=== PATIENT | female | born 1960 | race Caucasian/White ===

== ENCOUNTER 2024-08-31 15:52 | Emergency (ER) | payer MEDICARE, SELFPAY ==
[2024-08-31] VITALS (15 sets, daily range): BP systolic 130; BP diastolic 68; PULSE 60–70; TEMP 36.6; O2SAT 96–98; BMI 27.4
--- NOTE | 2024-08-31 16:07 | XR_ITS ---
The [address] [address] Patient Name: KING MORENO MRN: [id number] date: 1960 Sex: F Assigned Patient Location: ER Current Patient Location: ED.MAIN Accession/Order Number: [id number] Exam Date: 08/31/2024 16:15 Report Date: 08/31/2024 16:30 At the request of: SHERRI EM Procedure: XR chest 1V EXAMINATION: XR chest 1V HISTORY: Dizziness COMPARISON: No relevant comparison available. FINDINGS: LUNGS: Prominent opacity within medial right lung base is suspected to represent a pericardial fat pad. No convincing infiltrates. Underexpanded lungs. VASCULATURE: No increased pulmonary vasculature. PLEURA: No pneumothorax, effusion, or pleural thickening. CARDIAC: No cardiomegaly or cardiac silhouette abnormality. MEDIASTINUM: No visible mass or adenopathy. BONES: No fracture or visible bone lesion. OTHER: Cardiac pacer. XR/XR chest 1V IMPRESSION: 1. No acute cardiopulmonary process. Electronically authenticated by: JOSE CHACON Date: 08/31/2024 16:30
--- NOTE | 2024-08-31 16:07 | ECG_ITS ---
The [facility] Test Date: 2024-08-31 Pat Name: KING MORENO Department: Room: - Gender: Female Pain Medicine Physician: : 1960 Requested By: Order Number: [id number] Reading MD: DANK JENNINGS Measurements Intervals [place] Rate: 62 P: 58 RI: 136 QRS: 55 QRSD: 92 T: 90 QT: 420 QTc: 425 Interpretive Statements 1100 Sinus rhythm 3114 Cannot rule out anterior myocardial infarction, age undetermined 9150 abnormal ECG No previous ECG available for comparison Electronically Signed On 08-31-2024 23:27:13 EDT by DANK JENNINGS
--- NOTE | 2024-08-31 16:09 | ED.GENADUL1 ---
HPI HPI - General Adult General Chief complaint: Chest Pain Stated complaint: DEFIBULATOR NOT WORKING PROPERLY Time Seen by Provider: 08/31/24 15:56 Source: patient Mode of arrival: walk-in Limitations: no limitations History of Present Illness HPI narrative: Patient's chief complaint: I need to go to [place] and I don't drive Patient is a 63-year-old female who presents to the emergency department essentially to be transferred to [facility]. She states that she received a phone call from her lens edger at [facility] stating that her ICD is not functioning properly and she needed to get to . She states she apparently was not able to get to an area so she came to this facility by private vehicle. She states she has been feeling dizzy for the last several days but has no other major medical complaints. She takes warfarin daily. She states the defibrillator was placed approximately 4 months ago at [facility]. She denies chest pain, peripheral edema. She denies syncope or falls. Related Data Allergies Allergy/AdvReac Type Severity Reaction Status Date / Time No Known Drug Allergies Allergy Verified 08/31/24 15:57 Opioid HPI Opioid Management Most Recent Opioid Data: No Data to Display Review of Systems ROS Constitutional Denies: fever or chills Ears, nose, mouth, and throat Denies: throat pain or nasal congestion Cardiovascular Denies: chest pain Respiratory Denies: shortness of breath Gastrointestinal Denies: nausea or vomiting Musculoskeletal Denies: back pain Integumentary/Breast Denies: rash Neurological Reports: dizziness Hematologic/Lymphatic Denies: easy bruising or easy bleeding PFSH PFSH Social History Little interest or pleasure in doing things: not at all Feeling down, depressed, or hopeless: not at all Exam Narrative Exam Narrative: Gen.: Awake, alert, in no distress Head: Normocephalic, atraumatic ENT: Moist mucous membranes Respiratory: No respiratory distress, lungs clear bilaterally Cardio: Regular rate and rhythm Extremities: Moves extremities equally, no injuries noted Psych: Normal mood and affect Neuro: No focal neuro deficit Skin: Warm, dry, intact Constitutional Vital Signs, click to edit/add: Last Vital Signs Temp 97.8 F 08/31/24 15:58 Pulse 60 08/31/24 18:00 Resp 16 08/31/24 18:00 BP 130/68 08/31/24 15:59 Pulse Ox 97 08/31/24 16:20 O2 Del Method Room Air 08/31/24 15:58 Course Vital Signs Vital signs: Vital Signs Temperature 97.8 F 08/31/24 15:58 Pulse Rate 70 08/31/24 15:58 Respiratory Rate 18 08/31/24 15:58 Blood Pressure 130/68 08/31/24 15:58 Pulse Oximetry 97 08/31/24 15:58 Oxygen Delivery Method Room Air 08/31/24 15:58 Temperature 97.8 F 08/31/24 15:58 Pulse Rate 60 08/31/24 18:00 Respiratory Rate 16 08/31/24 18:00 Blood Pressure 130/68 08/31/24 15:59 Pulse Oximetry 97 08/31/24 16:20 Oxygen Delivery Method Room Air 08/31/24 15:58 Medical Decision Making MDM Narrative Medical decision making narrative: This patient states that she has been feeling intermittently dizzy for the last several days although she has not had any syncope, headaches, chest pain. She has an unremarkable EKG, normal vital signs. She made it clear on arrival to this emergency department that she presented here for us to transfer her to [facility]. [facility] transfer line was contacted, case was discussed by the transfer line with Dr. Butler for cardiology who requested that the patient be transferred to the emergency department at [facility]. I spoke with Dr. Youssef in the emergency department who accepted the patient for transfer. Patient is hemodynamically stable at this time. She has unremarkable lab studies, chest x-ray. Transport is pending to the emergency department at . 1811: This patient was in the emergency department for 2 hours and 15 minutes, we attempted to coordinate transport with [facility] as we had no local transport. While waiting for transportation services, the patient decided that she no longer wanted to wait in the emergency room. She signed out AGAINST MEDICAL ADVICE and stated she just wanted to go home and go to [facility] in the morning. She understands the risks of and disability by leaving AGAINST MEDICAL ADVICE and she was instructed to proceed directly to [facility] if she was not going to wait in the emergency room. [facility] was contacted to make sure they were aware that the patient was leaving AGAINST MEDICAL ADVICE from our facility. Critical care time 35 minutes. SUPERVISED APC VISIT, PHYSICIAN ATTESTATION: Based on the medical record the care appears appropriate. ? Medical Records Medical records reviewed: Yes I reviewed the patient's medical records Lab Data Lab results reviewed: Yes I reviewed the patient's lab results Labs: Lab Results 08/31/24 Range/Units 16:24 WBC 9.0 (4.0-11.0) 10^3/uL RBC 4.25 (4.20-5.40) 10^6/uL Hgb 12.8 (12.0-16.0) g/dL Hct 38.2 (36.0-48.0) % MCV 89.9 (81.0-99.0) fL MCH 30.1 (26.7-34.0) pg MCHC 33.5 (29.9-35.2) g/dL RDW 17.4 H (11.0-15.0) % Plt Count 199 (150-450) 10^3/uL MPV 11.1 (9.5-13.5) fL Neut % (Auto) 58.9 (43.0-75.0) % Lymph % (Auto) 32.8 (20.5-60.0) % [place] % (Auto) 5.8 (1.7-12.0) % Eos % (Auto) 2.0 (0.9-7.0) % Baso % (Auto) 0.4 (0.2-2.0) % Neut # (Auto) 5.3 (1.4-6.5) 10^3/uL Lymph # (Auto) 2.9 (1.2-3.8) 10^3/uL [place] # (Auto) 0.5 (0.3-0.8) 10^3/uL Eos # (Auto) 0.2 (0.0-0.7) 10^3/uL Baso # (Auto) 0.0 (0.0-0.1) 10^3/uL Abs Immat Gran (auto) 0.01 (0.00-0.03) 10^3/uL Imm/Tot Granulo (auto) 0.1 (0.0-0.5) % PT 30.3 H (9.0-11.6) sec INR 3.21 Sodium 140 (136-145) mmol/L Potassium 3.8 (3.5-5.1) mmol/L Chloride 105 (98-107) mmol/L Carbon Dioxide 23.4 (21.0-32.0) mmol/L Anion Gap 15.4 BUN 13.0 (7.0-18.0) mg/dL Creatinine 1.00 (0.55-1.02) mg/dL Est GFR ( Amer) >60 (>=60 mL/min/1.73m^2) Est GFR (Non-Af Amer) 56 L (>=60 mL/min/1.73m^2) BUN/Creatinine Ratio 13.0 Glucose 157 H (74-106) mg/dL Calcium 9.1 (8.5-10.1) mg/dL Total Bilirubin 0.2 (0.2-1.0) mg/dL AST 29 (15-37) U/L ALT 37 (14-59) U/L Alkaline Phosphatase 49 (46-116) U/L Troponin I High Sens 5.9 (4.0-51.3) pg/mL Total Protein 6.6 (6.4-8.2) g/dL Albumin 3.1 L (3.4-5.0) g/dL Globulin 3.5 g/dL Albumin/Globulin Ratio 0.9 Imaging Data Chest x-ray: Attestation: I have reviewed the pertinent imaging results. Radiologist's impression: ITS Impressions Chest X-Ray 08/31/24 16:07 IMPRESSION: 1. No acute cardiopulmonary process. Electronically authenticated by: JOSE CHACON Date: 08/31/2024 16:30 ECG Data Attestation: I personally reviewed and interpreted this ECG as follows: (Normal sinus rhythm at a rate of [address] elevation, minimal ST depression. No ectopy. EKG reviewed by attending physician) Discharge Plan Discharge Stand Alone Forms: Portal Instructions Chief Complaint: Chest Pain Clinical Impression: Dizziness, Disorder of defibrillator function Patient Disposition: Left Against Medical Advice Time of Disposition Decision: 18:12 Discharge location: [facility] Emergency Department Condition: Good Print Language: Belarusian Referrals: Physician,[place] [Primary Care Provider] - 1 week
[2024-08-31 16:39] LABS: Basophils Percent Auto 0.4 % (0.2-2.0); Eosinophils Absolute Auto 0.2 10^3/uL (0.0-0.7); Hematocrit 38.2 % (36.0-48.0); Hemoglobin 12.8 g/dL (12.0-16.0); Immature Granulocytes Abs Auto 0.01 10^3/uL (0.00-0.03); Immature Granulocytes Pct Auto 0.1 % (0.0-0.5); Lymphocytes Absolute Auto 2.9 10^3/uL (1.2-3.8); Lymphocytes Percent Auto 32.8 % (20.5-60.0); Mean Corpuscular HGB Conc 33.5 g/dL (29.9-35.2); Mean Corpuscular Hemoglobin 30.1 pg (26.7-34.0); Mean Corpuscular Volume 89.9 fL (81.0-99.0); Mean Platelet Volume 11.1 fL (9.5-13.5); Monocytes Absolute Auto 0.5 10^3/uL (0.3-0.8); Monocytes Percent Auto 5.8 % (1.7-12.0); Neutrophils Absolute Auto 5.3 10^3/uL (1.4-6.5); Neutrophils Percent Auto 58.9 % (43.0-75.0); Platelet Count 199 10^3/uL (150-450); Red Blood Count 4.25 10^6/uL (4.20-5.40); Red Cell Distribution Width 17.4 % (11.0-15.0)
[2024-08-31 16:47] LABS: INR 3.21; Prothrombin Time 30.3 sec (9.0-11.6)
[2024-08-31 16:53] LABS: Alanine Aminotransferase 37 U/L (14-59); Albumin Globulin Ratio 0.9; Albumin Level 3.1 g/dL (3.4-5.0); Alkaline Phosphatase 49 U/L (46-116); Anion Gap 15.4; Aspartate Amino Transferase 29 U/L (15-37); Bilirubin Total 0.2 mg/dL (0.2-1.0); Calcium 9.1 mg/dL (8.5-10.1); Carbon Dioxide 23.4 mmol/L (21.0-32.0); Chloride 105 mmol/L (98-107); Estimated GFR (African America >60 (>=60 mL/min/1.73m^2); Estimated GFR (Non-African Ame 56 (>=60 mL/min/1.73m^2); Globulin 3.5 g/dL; Glucose 157 mg/dL (74-106); Potassium 3.8 mmol/L (3.5-5.1); Sodium 140 mmol/L (136-145); Total Protein 6.6 g/dL (6.4-8.2); Troponin I High Sensitivity 5.9 pg/mL (4.0-51.3)
== END 2024-08-31 18:05 | disposition left against medical advice (07) ==
PROVIDERS: Physician Assistant; Emergency Provider Emergency Medicine Emergency Medical Services
DX: R42 Dizziness and giddiness (principal); T82.9XXA Unspecified complication of cardiac and vascular prosthetic device, implant and graft, initial encounter; Z95.810 Presence of automatic (implantable) cardiac defibrillator; Z79.01 Long term (current) use of anticoagulants; Z53.29 Procedure and treatment not carried out because of patient's decision for other reasons
CPT/HCPCS: 36415; 71045; 80053; 84484; 85025; 85610; 93005; 99285

== ENCOUNTER 2024-09-12 14:08 | Outpatient (OUT) | payer MEDICARE, SELFPAY ==
[2024-09-12 14:38] LABS: Basophils Absolute Auto 0.1 10^3/uL (0.0-0.1); Basophils Percent Auto 0.7 % (0.2-2.0); Eosinophils Absolute Auto 0.1 10^3/uL (0.0-0.7); Eosinophils Percent Auto 1.4 % (0.9-7.0); Hematocrit 39.2 % (36.0-48.0); Hemoglobin 13.4 g/dL (12.0-16.0); Immature Granulocytes Abs Auto 0.02 10^3/uL (0.00-0.03); Immature Granulocytes Pct Auto 0.2 % (0.0-0.5); Lymphocytes Absolute Auto 2.9 10^3/uL (1.2-3.8); Lymphocytes Percent Auto 30.6 % (20.5-60.0); Mean Corpuscular HGB Conc 34.2 g/dL (29.9-35.2); Mean Corpuscular Hemoglobin 30.2 pg (26.7-34.0); Mean Corpuscular Volume 88.5 fL (81.0-99.0); Mean Platelet Volume 10.9 fL (9.5-13.5); Monocytes Absolute Auto 0.6 10^3/uL (0.3-0.8); Monocytes Percent Auto 6.3 % (1.7-12.0); Neutrophils Absolute Auto 5.8 10^3/uL (1.4-6.5); Neutrophils Percent Auto 60.8 % (43.0-75.0); Platelet Count 284 10^3/uL (150-450); Red Blood Count 4.43 10^6/uL (4.20-5.40); Red Cell Distribution Width 17.1 % (11.0-15.0); White Blood Count 9.6 10^3/uL (4.0-11.0)
[2024-09-12 15:22] LABS: Percent Iron Saturation 6.1 %
[2024-09-12 15:30] LABS: TSH W/ REFLEX FT4 2.388 uIU/mL (0.358-3.740)
== END 2024-09-12 14:09 | disposition home or self-care (01) ==
LOC: LAB 14:09
PROVIDERS: Visit Provider Nurse Practitioner Family
DX: R42 Dizziness and giddiness (principal); R55 Syncope and collapse; R53.83 Other fatigue
CPT/HCPCS: 36415; 83540; 83550; 84443; 85025

== ENCOUNTER 2024-10-22 18:02 | Emergency (ER) | payer MEDICARE, MEDICAID, SELFPAY ==
[2024-10-22 18:07] VITALS: BP 132/76; PULSE 85; TEMP 36.8; O2SAT 96; BMI 27.4
--- NOTE | 2024-10-22 18:56 | PC.NURSE ---
patient reports she initially fell on due to a trip and injured her left buttocks. patient fell again on thursday, due to the injury from initial fall, and worsened the pain. patient attempted tylenol and motrin with no relief
--- NOTE | 2024-10-22 19:11 | CT_ITS ---
The [address] [address] Patient Name: KING MORENO MRN: [id number] date: 1960 Sex: F Assigned Patient Location: ER Current Patient Location: ED.MAIN Accession/Order Number: [id number] Exam Date: 10/22/2024 19:17 Report Date: 10/22/2024 21:04 At the request of: ISSAC JAMA Procedure: CT pelvis wo con EXAM: CT pelvis wo con HISTORY: pain left hip/ pelvis COMPARISON: None. TECHNIQUE: CT pelvis without contrast. Axial scans with reformatted coronal and sagittal images. Individualized radiation dose reduction used for this exam. FINDINGS: There is a mass in the right pelvis along the right side of the uterus. Also seen adjacent to the rectum. The cecum lies in the pelvis and is adjacent to this mass as well. Density higher than typical for a cyst. 5 cm transverse by 6 cm craniocaudad 4.2 cm AP diameter. There is no free fluid in the pelvis. No adenopathy. Left adnexa and uterus unremarkable. Cecum is prominent but no bowel distention seen proximal to this. Mass appears separate from a prominent fluid-filled bladder. No suspicious bone lesion. No evidence of hernia. CT/CT pelvis wo con IMPRESSION: Right pelvic mass approximately 5 x 6 x 4.2 cm. Seen along the right side of the uterus, rectum and within the low-lying cecum in the pelvis. Suspect lesion is ovarian origin.. Consider follow-up with pelvic ultrasound. No evidence of pelvic free fluid or adenopathy. Electronically authenticated by: MORENA YAN Date: 10/22/2024 21:04
[2024-10-22] MEDS: IBUPROFEN 400 MG TABLET 800 MG PO (19:34)
--- NOTE | 2024-10-22 20:33 | ED.GENADUL1 ---
HPI HPI - General Adult General Chief complaint: Back Pain/Injury Stated complaint: FALL THURSDAY NIGHT, L BUTTOCK PAIN Time Seen by Provider: 10/22/24 19:05 Source: patient Mode of arrival: walk-in History of Present Illness HPI narrative: 63-year-old female to the emergency department chief complaint of pain in her left hip from an accidental fall. Patient reports that she is fallen twice on her left hip. Both were accidental falls that occurred at home. She got hit her head or lose consciousness. She denies any neck or back pain. No numbness, weakness, tingling. She reports she has increasing pain in her left hip and pelvis since the fall. She reports this makes it hard to ambulate. Related Data Home Medications ?Medication ?Instructions ?Recorded ?Confirmed amiodarone 200 mg tablet 200 mg PO Q24H 10/22/24 10/22/24 lansoprazole 30 mg capsule,delayed 30 mg PO Q8H 10/22/24 10/22/24 release lisinopril 2.5 mg tablet 2.5 mg PO DAILY 10/22/24 10/22/24 lisinopril 5 mg tablet 5 mg PO DAILY 10/22/24 10/22/24 lurasidone 60 mg tablet 60 mg PO DAILY 10/22/24 10/22/24 meclizine 25 mg tablet 25 mg PO DAILY 10/22/24 10/22/24 melatonin 5 mg tablet 5 mg PO DAILY 10/22/24 10/22/24 metoprolol succinate 25 mg 50 mg PO DAILY 10/22/24 10/22/24 tablet,extended release 24 hr mexiletine 150 mg capsule 150 mg PO Q8H 10/22/24 10/22/24 oxybutynin chloride 10 mg 10 mg PO DAILY 10/22/24 10/22/24 tablet,extended release 24 hr quetiapine 100 mg tablet 100 mg PO DAILY 10/22/24 10/22/24 quetiapine 200 mg tablet 200 mg PO DAILY 10/22/24 10/22/24 ranolazine 500 mg tablet,extended 500 mg PO Q12H 10/22/24 10/22/24 release,12 hr rosuvastatin 10 mg tablet 10 mg PO DAILY 10/22/24 10/22/24 warfarin 2.5 mg tablet 2.5 mg PO DAILY 10/22/24 10/22/24 Previous Rx's ?Medication ?Instructions ?Recorded oxycodone-acetaminophen 5 mg-325 1 tab PO Q6H PRN pain 3 days #12 10/22/24 mg tablet (Percocet) tabs Allergies Allergy/AdvReac Type Severity Reaction Status Date / Time No Known Drug Allergies Allergy Verified 08/31/24 15:57 Opioid HPI Opioid Management Most Recent Opioid Data: Last Pain Scale 10 10/22/24 21:24 10/22/24 Last ED Pain Assessment 10/22/24 21:24 Review of Systems ROS Status of ROS 10 or more systems reviewed and unremarkable except as noted in history and below PFSH PFS Social History Little interest or pleasure in doing things: not at all Feeling down, depressed, or hopeless: not at all Exam Narrative Exam Narrative: VITALS: I have reviewed the triage vital signs. GENERAL: Well developed, well appearing adult in no acute distress. NEURO: Alert and oriented. Moves all extremities. Face is symmetric and expressive. EYES: PERRL. No scleral icterus or conjunctival injection. No discharge. HENT: Normocephalic, atraumatic. Hearing is grossly intact. Nares grossly patent and without discharge. Mucous membranes moist. NECK: No JVD. Patient moves neck without restriction. No midline cervical, thoracic, or lumbar tenderness. CARDIO: Rhythm regular. Normal rate. No murmur, rub, or gallop. Pulses equal bilaterally in the upper and lower extremity. No lower extremity edema. PULM: Lungs clear to auscultation in all goss. No wheezes, rales, or rhonchi. No conversational dyspnea. No splinting, stridor, or accessory muscle use. GI/: Abdomen is soft and non-tender. Normoactive bowel sounds. EXTREMITIES: Tenderness with palpation of the left hip. Pain with range of motion of the left hip. Stable pelvis. Symmetric muscle bulk. No joint swelling. No clubbing, cyanosis, or deformity. SKIN: Warm and dry. Normal turgor. No rash or lesions appreciated. PSYCH: Mood, affect, and interaction is appropriate to the setting. Constitutional Vital Signs, click to edit/add: Last Vital Signs Temp 98.2 F 10/22/24 18:07 Pulse 76 10/22/24 21:24 Resp 18 10/22/24 21:24 BP 140/73 10/22/24 21:24 Pulse Ox 98 10/22/24 21:24 O2 Del Method Room Air 10/22/24 21:24 Course Vital Signs Vital signs: Vital Signs Temperature 98.2 F 10/22/24 18:07 Pulse Rate 85 10/22/24 18:07 Respiratory Rate 18 10/22/24 18:07 Blood Pressure 132/76 10/22/24 18:07 Pulse Oximetry 96 10/22/24 18:07 Oxygen Delivery Method Room Air 10/22/24 18:07 Temperature 98.2 F 10/22/24 18:07 Pulse Rate 76 10/22/24 21:24 Respiratory Rate 18 10/22/24 21:24 Blood Pressure 140/73 10/22/24 21:24 Pulse Oximetry 98 10/22/24 21:24 Oxygen Delivery Method Room Air 10/22/24 21:24 Medical Decision Making MDM Narrative Medical decision making narrative: 63-year-old female to the emergency department chief complaint of left hip pain. Vital stable, the patient is afebrile. There is tenderness to palpation as well as pain with range of motion. CT scan is ordered. Ibuprofen for pain. She did drive herself to the ER, intends on driving home. Patient with this plan. CT scan without any disorder of the hip. She does have incidentally visualized pelvic mass. CT scan results were discussed with the patient. Discussed reassuring hip findings however we discussed the incidentally visualized pelvic mass. This was not known to the patient. Radiologist noted appear to be ovarian in nature. She was given a referral to [facility]. Discussed with the patient the need for urgent follow-up. She agrees with this plan. Percocet for her discomfort. Return precautions were discussed. All questions were answered. The patient was discharged home. Medical Records Medical records reviewed: Yes I reviewed the patient's medical records Imaging Data CT scan - abdomen: Attestation: I have reviewed the pertinent imaging results. Radiologist's impression: ITS Impressions Pelvis CT 10/22/24 19:11 IMPRESSION: Right pelvic mass approximately 5 x 6 x 4.2 cm. Seen along the right side of the uterus, rectum and within the low-lying cecum in the pelvis. Suspect lesion is ovarian origin.. Consider follow-up with pelvic ultrasound. No evidence of pelvic free fluid or adenopathy. Electronically authenticated by: MORENA YAN Date: 10/22/2024 21:04 Discharge Plan Discharge Chief Complaint: Back Pain/Injury Clinical Impression: Contusion of hip, left, Pelvic mass in female Patient Disposition: Home, Self-Care Time of Disposition Decision: 21:19 Condition: Good Mode of Transportation: Private Vehicle Prescriptions / Home Meds: New oxycodone-acetaminophen [Percocet] 5-325 mg tablet 1 tab PO Q6H PRN (Reason: pain) 3 Days Qty: 12 0RF No Action amiodarone 200 mg tablet 200 mg PO Q24H lansoprazole 30 mg capsule,delayed release(DR/EC) 30 mg PO Q8H lisinopril 2.5 mg tablet 2.5 mg PO DAILY lisinopril 5 mg tablet 5 mg PO DAILY lurasidone 60 mg tablet 60 mg PO DAILY meclizine 25 mg tablet 25 mg PO DAILY melatonin 5 mg tablet 5 mg PO DAILY metoprolol succinate 25 mg tablet extended release 24 hr 50 mg PO DAILY mexiletine 150 mg capsule 150 mg PO Q8H oxybutynin chloride 10 mg tablet extended release 24hr 10 mg PO DAILY quetiapine 100 mg tablet 100 mg PO DAILY quetiapine 200 mg tablet 200 mg PO DAILY ranolazine 500 mg tablet extended release 12 hr 500 mg PO Q12H rosuvastatin 10 mg tablet 10 mg PO DAILY warfarin 2.5 mg tablet 2.5 mg PO DAILY Print Language: Yoruba Instructions: Hip Contusion (ED) Additional Instructions: Call the office of your primary care doctor to arrange for follow-up within the above-stated timeframe. Your ED visit was focused on your acute issue and does not replace primary care. You should review your labs, imaging, and diagnoses from this ED visit with your primary care physician. There may be non-emergent/ incidental findings that need further evaluation. You should review your vital signs including blood pressure with your PCP. If you were prescribed medications you should discuss possible side-effects and drug interactions with your pharmacist. Call 911 or go to the nearest Emergency Department if you develop any new or worsening symptoms. Incidental finding of a pelvic mass. Needs further workup with an ultrasound and evaluation with [facility]. Referrals: David Ewing DO [Physician] - 1 week (Follow-up to discuss incidental finding of pelvic mass ) Conchita Aden MD [Primary Care Provider] - 1 week Gabino Muse MD [Physician] - 1 week (follow-up to discuss hip)
[2024-10-22 21:24] VITALS: BP 140/73; PULSE 76; O2SAT 98
[2024-10-22] MEDS: OXYCODONE HCL/ACETAMINOPHEN 5MG/325MG 1 TAB PO (21:46)
== END 2024-10-22 21:46 | disposition home or self-care (01) ==
PROVIDERS: Emergency Provider Student in an Organized Health Care Education/Training Program; PCP Family Medicine
DX: S70.02XA Contusion of left hip, initial encounter (principal); W19.XXXA Unspecified fall, initial encounter; R19.00 Intra-abdominal and pelvic swelling, mass and lump, unspecified site
CPT/HCPCS: 72192; 99284

== ENCOUNTER 2024-10-29 14:51 | Emergency (ER) | payer MEDICARE, MEDICAID, SELFPAY ==
[2024-10-29] VITALS (17 sets, daily range): BP systolic 102–139; BP diastolic 53–81; PULSE 78–91; TEMP 36.8; O2SAT 95–99; BMI 27.4
--- NOTE | 2024-10-29 16:19 | ECG_ITS ---
The [facility] Test Date: 2024-10-29 Pat Name: KING MORENO Department: Room: - Gender: Female Pneumatic Jacketer: : 1960 Requested By: LOLA OWENS Order Number: [id number] Reading MD: DANK JENNINGS Measurements Intervals [place] Rate: 79 P: 61 HI: 132 QRS: 40 QRSD: 86 T: 90 QT: 374 QTc: 409 Interpretive Statements 1100 Sinus rhythm 8102 Low QRS voltage in chest leads 9150 abnormal ECG Electronically Signed On 10-30-2024 7:54:20 EST by DANK JENNINGS
--- NOTE | 2024-10-29 16:30 | ED.GENADUL1 ---
HPI HPI - General Adult General Chief complaint: Shortness of Breath/Dyspnea Stated complaint: SHORTNESS OF BREATH. DIZZINESS Time Seen by Provider: 10/29/24 16:21 Source: patient Mode of arrival: walk-in History of Present Illness HPI narrative: Patient is a 63-year-old female who is presenting to the ER today with chief complaint of shortness of breath at rest or with exertion for the past 2 or 3 days. Patient states that she had a blood transfusion and a iron transfusion approximately 2 to 3 years ago. Patient also has emphysema COPD. Patient does not believe that she needs a breathing treatment. She has not had a breathing machines or medications for the past 2 or 3 months because she has moved. Patient has no headache. No chest pain or tightness. No abdominal pain. No swelling to her abdomen or lower extremities. Patient is uncertain of the reason why she is having some more shortness of breath with exertion and at rest. I walk into the room. She is not hypoxic. She looks very comfortable No recent traveling. No other acute complaints. Patient lives at home alone, patient is smoking 1-2 packs a day cigarettes. Patient does not wear oxygen during the day or at nighttime. All systems are negative except as noted/marked. All systems reviewed and otherwise negative. Nurses note and vital signs reviewed and patient is not hypoxic. General: The patient appears well and in no apparent distress. Patient is resting comfortably on cart. Patient is not toxic, lethargic, or listless Skin: Warm, dry, no pallor noted. There is no rash noted. No petechiae, purpura. Head: Normocephalic, atraumatic Eye: Normal conjunctiva, no drainage, EOMI. PERRL Ears, Nose, Mouth, and Throat: oral mucosa is moist. Nares patent. Mouth without vesicles. Cardiovascular: Regular Rate and Rhythm, no murmur, gallop, rub Respiratory: Patient is in no distress, no accessory muscle use, lungs are clear to auscultation, no wheezing, rales or rhonchi Back: non-tender, no CVA tenderness bilaterally to percussion. No CT LS midline pain GI: no tenderness to palpation, no masses appreciated. No rebound, guarding, or rigidity noted. No distention Musculoskeletal: Patient has full range of motion of all of the extremities, no motor, sensory, or focal neurological deficits. no edema. Neurological: A&O x4, normal speech Psychiatric: Cooperative Related Data Home Medications ?Medication ?Instructions ?Recorded ?Confirmed amiodarone 200 mg tablet 200 mg PO Q24H 10/22/24 10/22/24 lansoprazole 30 mg capsule,delayed 30 mg PO Q8H 10/22/24 10/22/24 release lisinopril 2.5 mg tablet 2.5 mg PO DAILY 10/22/24 10/22/24 lisinopril 5 mg tablet 5 mg PO DAILY 10/22/24 10/22/24 lurasidone 60 mg tablet 60 mg PO DAILY 10/22/24 10/22/24 meclizine 25 mg tablet 25 mg PO DAILY 10/22/24 10/22/24 melatonin 5 mg tablet 5 mg PO DAILY 10/22/24 10/22/24 metoprolol succinate 25 mg 50 mg PO DAILY 10/22/24 10/22/24 tablet,extended release 24 hr mexiletine 150 mg capsule 150 mg PO Q8H 10/22/24 10/22/24 oxybutynin chloride 10 mg 10 mg PO DAILY 10/22/24 10/22/24 tablet,extended release 24 hr quetiapine 100 mg tablet 100 mg PO DAILY 10/22/24 10/22/24 quetiapine 200 mg tablet 200 mg PO DAILY 10/22/24 10/22/24 ranolazine 500 mg tablet,extended 500 mg PO Q12H 10/22/24 10/22/24 release,12 hr rosuvastatin 10 mg tablet 10 mg PO DAILY 10/22/24 10/22/24 warfarin 2.5 mg tablet 2.5 mg PO DAILY 10/22/24 10/22/24 Previous Rx's ?Medication ?Instructions ?Recorded oxycodone-acetaminophen 5 mg-325 1 tab PO Q6H PRN pain 3 days #12 10/22/24 mg tablet (Percocet) tabs Allergies Allergy/AdvReac Type Severity Reaction Status Date / Time No Known Drug Allergies Allergy Verified 08/31/24 15:57 Opioid HPI Opioid Management Most Recent Opioid Data: Last Pain Scale 10 10/22/24 21:46 10/22/24 Last ED Pain Assessment 10/22/24 21:24 PFSH PFSH Social History Little interest or pleasure in doing things: not at all Feeling down, depressed, or hopeless: not at all Exam Constitutional Vital Signs, click to edit/add: Last Vital Signs Temp 98.2 F 10/29/24 17:08 Pulse 78 10/29/24 16:50 Resp 16 10/29/24 16:50 BP 129/75 10/29/24 17:04 Pulse Ox 95 10/29/24 16:40 O2 Del Method Room Air 10/29/24 15:08 Course Vital Signs Vital signs: Vital Signs Pulse Rate 91 H 10/29/24 15:08 Respiratory Rate 18 10/29/24 15:08 Blood Pressure 117/72 10/29/24 15:08 Pulse Oximetry 97 10/29/24 15:08 Oxygen Delivery Method Room Air 10/29/24 15:08 Temperature 98.2 F 10/29/24 17:08 Pulse Rate 78 10/29/24 16:50 Respiratory Rate 16 10/29/24 16:50 Blood Pressure 129/75 10/29/24 17:04 Pulse Oximetry 95 10/29/24 16:40 Oxygen Delivery Method Room Air 10/29/24 15:08 Medical Decision Making MDM Narrative Medical decision making narrative: Patient orthostatics are positive, patient was lightheaded dizzy with positional changes. Patient was given 1 L of IV fluid. EKG shows no acute changes. Patient had lab work. Patient heart and lung sound clear. Lab test showed no acute findings. Patient does have a hemoglobin of 9, MCV normal. Patient is aware that we did not do iron testing in the ER. Patient still smoking 1 to 2 packs a day. Patient will be discharged and follow-up with PCP. Patient COVID was neg. patient has slight elevated white blood cells, she has no obvious signs of acute infection. Patient needs to go back to her old place of living and get her inhalers, nebulizer machine, and continued breathing treatments and treatment for COPD as recommended. Patient has also been referred to Dr. Sharpe. Lab Data Labs: Lab Results 10/29/24 Range/Units 16:53 WBC 14.6 H (4.0-11.0) 10^3/uL RBC 3.04 L (4.20-5.40) 10^6/uL Hgb 9.2 L (12.0-16.0) g/dL Hct 28.1 L (36.0-48.0) % MCV 92.4 (81.0-99.0) fL MCH 30.3 (26.7-34.0) pg MCHC 32.7 (29.9-35.2) g/dL RDW 17.4 H (11.0-15.0) % Plt Count 384 (150-450) 10^3/uL MPV 10.6 (9.5-13.5) fL Neut % (Auto) 72.3 (43.0-75.0) % Lymph % (Auto) 18.6 L (20.5-60.0) % [place] % (Auto) 6.8 (1.7-12.0) % Eos % (Auto) 1.2 (0.9-7.0) % Baso % (Auto) 0.4 (0.2-2.0) % Neut # (Auto) 10.6 H (1.4-6.5) 10^3/uL Lymph # (Auto) 2.7 (1.2-3.8) 10^3/uL [place] # (Auto) 1.0 H (0.3-0.8) 10^3/uL Eos # (Auto) 0.2 (0.0-0.7) 10^3/uL Baso # (Auto) 0.1 (0.0-0.1) 10^3/uL Abs Immat Gran (auto) 0.10 H (0.00-0.03) 10^3/uL Imm/Tot Granulo (auto) 0.7 H (0.0-0.5) % Sodium 136 (136-145) mmol/L Potassium 4.6 (3.5-5.1) mmol/L Chloride 102 (98-107) mmol/L Carbon Dioxide 25.8 (21.0-32.0) mmol/L Anion Gap 12.8 BUN 13.0 (7.0-18.0) mg/dL Creatinine 0.70 (0.55-1.02) mg/dL Est GFR ( Amer) >60 (>=60 mL/min/1.73m^2) Est GFR (Non-Af Amer) >60 (>=60 mL/min/1.73m^2) BUN/Creatinine Ratio 18.6 Glucose 99 (74-106) mg/dL Calcium 8.4 L (8.5-10.1) mg/dL Troponin I High Sens 8.2 (4.0-51.3) pg/mL NT-Pro-B Natriuret Pep 327.0 (<=900.0) pg/mL SARS-CoV-2 Ag (CV2AG) Negative (NEGATIVE) ECG Data Attestation: I personally reviewed and interpreted this ECG as follows: (EKG interpretation. Normal sinus rhythm at 79 beats a minute. Normal axis deviation. No acute ST elevation, no acute ectopy. QTc of 409) Discharge Plan Discharge Chief Complaint: Shortness of Breath/Dyspnea Clinical Impression: Dyspnea, Tobacco abuse, Chronic anemia Patient Disposition: Home, Self-Care Time of Disposition Decision: 17:50 Condition: Fair Prescriptions / Home Meds: No Action amiodarone 200 mg tablet 200 mg PO Q24H lansoprazole 30 mg capsule,delayed release(DR/EC) 30 mg PO Q8H lisinopril 2.5 mg tablet 2.5 mg PO DAILY lisinopril 5 mg tablet 5 mg PO DAILY lurasidone 60 mg tablet 60 mg PO DAILY meclizine 25 mg tablet 25 mg PO DAILY melatonin 5 mg tablet 5 mg PO DAILY metoprolol succinate 25 mg tablet extended release 24 hr 50 mg PO DAILY mexiletine 150 mg capsule 150 mg PO Q8H oxybutynin chloride 10 mg tablet extended release 24hr 10 mg PO DAILY quetiapine 100 mg tablet 100 mg PO DAILY quetiapine 200 mg tablet 200 mg PO DAILY ranolazine 500 mg tablet extended release 12 hr 500 mg PO Q12H rosuvastatin 10 mg tablet 10 mg PO DAILY warfarin 2.5 mg tablet 2.5 mg PO DAILY oxycodone-acetaminophen [Percocet] 5-325 mg tablet 1 tab PO Q6H PRN (Reason: pain) 3 Days Qty: 12 0RF Print Language: Bengali Instructions: How to Stop Smoking (ED), Dyspnea (ED), Anemia (ED) Additional Instructions: The dimpling machine operator Dr. 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 Use your inhalers and nebulizers as recommended, find them at your old place of living to use them as needed. Referrals: Conchita Aden MD [Primary Care Provider] - 1 week Cade Sharpe DO [Physician] - 1 week
--- NOTE | 2024-10-29 16:38 | XR_ITS ---
The [address] [address] Patient Name: KING MORENO MRN: [id number] date: 1960 Sex: F Assigned Patient Location: ER Current Patient Location: Accession/Order Number: [id number] Exam Date: 10/29/2024 16:55 Report Date: 10/29/2024 20:03 At the request of: DANNA PIERCE Procedure: XR chest 2V EXAMINATION: XR chest 2V HISTORY: sob COMPARISON: XR chest 08/31/2024 FINDINGS: LUNGS: Small wispy opacities within lung bases. VASCULATURE: No increased pulmonary vasculature. PLEURA: No pneumothorax, effusion, or pleural thickening. CARDIAC: No cardiomegaly or cardiac silhouette abnormality. MEDIASTINUM: No visible mass or adenopathy. BONES: Stable cardiac pacer. OTHER: Negative. XR/XR chest 2V IMPRESSION: 1. Trace amount of bibasilar atelectasis versus infiltrates; new since prior study. Electronically authenticated by: JOSE CHACON Date: 10/29/2024 20:03
[2024-10-29 17:01] LABS: Basophils Absolute Auto 0.1 10^3/uL (0.0-0.1); Basophils Percent Auto 0.4 % (0.2-2.0); Eosinophils Absolute Auto 0.2 10^3/uL (0.0-0.7); Eosinophils Percent Auto 1.2 % (0.9-7.0); Hematocrit 28.1 % (36.0-48.0); Hemoglobin 9.2 g/dL (12.0-16.0); Immature Granulocytes Pct Auto 0.7 % (0.0-0.5); Lymphocytes Absolute Auto 2.7 10^3/uL (1.2-3.8); Lymphocytes Percent Auto 18.6 % (20.5-60.0); Mean Corpuscular HGB Conc 32.7 g/dL (29.9-35.2); Mean Corpuscular Hemoglobin 30.3 pg (26.7-34.0); Mean Corpuscular Volume 92.4 fL (81.0-99.0); Mean Platelet Volume 10.6 fL (9.5-13.5); Monocytes Percent Auto 6.8 % (1.7-12.0); Neutrophils Absolute Auto 10.6 10^3/uL (1.4-6.5); Neutrophils Percent Auto 72.3 % (43.0-75.0); Platelet Count 384 10^3/uL (150-450); Red Blood Count 3.04 10^6/uL (4.20-5.40); Red Cell Distribution Width 17.4 % (11.0-15.0); White Blood Count 14.6 10^3/uL (4.0-11.0)
[2024-10-29] MEDS: 0.9 % SODIUM CHLORIDE 1,000 ML 1000 ML IV (17:03)
[2024-10-29 17:24] LABS: Anion Gap 12.8; BUN Creatinine Ratio 18.6; Calcium 8.4 mg/dL (8.5-10.1); Carbon Dioxide 25.8 mmol/L (21.0-32.0); Chloride 102 mmol/L (98-107); Estimated GFR (African America >60 (>=60 mL/min/1.73m^2); Estimated GFR (Non-African Ame >60 (>=60 mL/min/1.73m^2); Glucose 99 mg/dL (74-106); Internal Control Within Normal Limits; SARS-CoV-2 Ag NEGATIVE (NEGATIVE); Sodium 136 mmol/L (136-145); Troponin I High Sensitivity 8.2 pg/mL (4.0-51.3)
[2024-10-29 17:26] LABS: Potassium 4.6 mmol/L (3.5-5.1)
== END 2024-10-29 18:29 | disposition home or self-care (01) ==
PROVIDERS: Emergency Provider Emergency Medicine; PCP Family Medicine
DX: R06.00 Dyspnea, unspecified (principal); D64.9 Anemia, unspecified; J43.9 Emphysema, unspecified; F17.210 Nicotine dependence, cigarettes, uncomplicated
CPT/HCPCS: 36415; 71046; 80048; 83880; 84484; 85025; 87811; 93005; 96360; 99285

== ENCOUNTER 2024-10-30 14:52 | Inpatient (IN) | payer MEDICARE, MEDICAID, SELFPAY ==
[2024-10-30] VITALS (23 sets, daily range): BP systolic 109–138; BP diastolic 68–81; PULSE 81–105; TEMP 36.6–36.9; O2SAT 93–98; BMI 27.4; BMI 28.3
--- NOTE | 2024-10-30 15:09 | ECG_ITS ---
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
--- NOTE | 2024-10-30 15:09 | XR_ITS ---
[address] [address] Patient Name: KING MORENO MRN: [id number] date: 1960 Sex: F Assigned Patient Location: ER Current Patient Location: ED.MAIN Accession/Order Number: [id number] Exam Date: 10/30/2024 15:20 Report Date: 10/30/2024 17:06 At the request of: SARA JASMINE Procedure: XR chest 1V Exam: Radiographs: XR chest 1V Reason for exam: Dyspnea Comparison: Chest x-ray dated 08/31/2024 XR/XR chest 1V IMPRESSION: Small amount of atelectasis infiltrate in the left lower lung. Minimal right basilar linear atelectasis. Pacemaker. Remainder of the chest is unremarkable. Electronically authenticated by: DION CHATMAN Date: 10/30/2024 17:06
--- NOTE | 2024-10-30 15:34 | ED_ITS ---
HPI HPI - General Adult General Chief complaint: Shortness of Breath/Dyspnea Stated complaint: SOB, DIZZINESS Time Seen by Provider: 10/30/24 15:07 Source: patient Mode of arrival: Wheelchair History of Present Illness HPI narrative: 63-year-old female presents emergency room chief complaint of worsening dizziness and shortness of breath. Patient was seen and evaluated here yesterday and discharged home with diagnosis of chronic anemia shortness of breath. Patient states she did not tell the physician yesterday she had had dark tarry stools. She states today she noticed worsening dark tarry stools. She does take Coumadin routinely. Took her last dose of Coumadin last evening. She states she felt worse today weaker and more short of breath. She does report having a history of a GI bleed in the past where she did have to receive blood. Related Data Home Medications ?Medication ?Instructions ?Recorded ?Confirmed amiodarone 200 mg tablet 200 mg PO Q24H 10/22/24 10/30/24 lansoprazole 30 mg capsule,delayed 30 mg PO Q8H 10/22/24 10/30/24 release lisinopril 2.5 mg tablet 2.5 mg PO DAILY 10/22/24 10/30/24 lurasidone 60 mg tablet 60 mg PO DAILY 10/22/24 10/30/24 meclizine 25 mg tablet 25 mg PO BID PRN dizziness 10/22/24 10/30/24 melatonin 5 mg tablet 5 mg PO DAILY 10/22/24 10/30/24 metoprolol succinate 25 mg 25 mg PO DAILY 10/22/24 10/30/24 tablet,extended release 24 hr mexiletine 150 mg capsule 150 mg PO Q8H 10/22/24 10/30/24 oxybutynin chloride 10 mg 10 mg PO DAILY 10/22/24 10/30/24 tablet,extended release 24 hr quetiapine 200 mg tablet 200 mg PO DAILY 10/22/24 10/30/24 ranolazine 500 mg tablet,extended 500 mg PO Q12H 10/22/24 10/30/24 release,12 hr rosuvastatin 10 mg tablet 10 mg PO DAILY 10/22/24 10/30/24 warfarin 2.5 mg tablet 2.5 mg PO DAILY 10/22/24 10/30/24 Allergies Allergy/AdvReac Type Severity Reaction Status Date / Time No Known Drug Allergies Allergy Verified 08/31/24 15:57 Opioid HPI Opioid Management Most Recent Opioid Data: Last Pain Scale 10 10/22/24 21:46 10/22/24 Review of Systems ROS Narrative All Systems are negative except as noted/marked.All systems reviewed and otherwise negative [facility] Medical History (Updated 10/30/24 @ 16:36 by Charity Gerard) HTN (hypertension) ?I10 - Essential (primary) hypertension (ICD-10) High cholesterol ?E78.00 - Pure hypercholesterolemia, unspecified (ICD-10) Afib ?I48.91 - Unspecified atrial fibrillation (ICD-10) Social History Little interest or pleasure in doing things: not at all Feeling down, depressed, or hopeless: not at all Exam Narrative Exam Narrative: All Systems are negative except as noted/marked.All systems reviewed and otherwise negative Nurses note and vital signs reviewed and patient is not hypoxic. General: The patient appears well and in no apparent distress. Patient is resting comfortably on cart. Skin: Warm, dry, no pallor noted. There is no rash noted. Head: Normocephalic, atraumatic Eye: Normal conjunctiva, no drainage, EOMI. PERRL Ears, Nose, Mouth, and Throat: oral mucosa is moist. Nares patent. Mouth without vesicles. Ear canals patent. Tm's without Erythema Cardiovascular: Regular Rate and Rhythm Respiratory: Patient is in no distress, no accessory muscle use, lungs are clear to auscultation, no wheezing, rales or rhonchi Back: non-tender, no CVA tenderness bilaterally to percussion. GI: positive occult Blood, dark tarry stool, normal bowel sounds, no tenderness to palpation, no masses appreciated. No rebound, guarding, or rigidity noted. Musculoskeletal: Old bruise across her buttock, no hematoma the patient has no evidence of calf tenderness, no pitting edema, symmetrical pulses noted bilaterally Neurological: A&O x4, normal speech Psychiatric: Cooperative Constitutional Vital Signs, click to edit/add: Last Vital Signs Temp 97.9 F 10/30/24 14:58 Pulse 98 H 10/30/24 14:58 Resp 20 10/30/24 14:58 BP 132/81 10/30/24 14:58 Pulse Ox 98 10/30/24 14:58 O2 Del Method Room Air 10/30/24 14:58 Course Vital Signs Vital signs: Vital Signs Temperature 97.9 F 10/30/24 14:58 Pulse Rate 98 H 10/30/24 14:58 Respiratory Rate 20 10/30/24 14:58 Blood Pressure 132/81 10/30/24 14:58 Pulse Oximetry 98 10/30/24 14:58 Oxygen Delivery Method Room Air 10/30/24 14:58 Temperature 97.9 F 10/30/24 14:58 Pulse Rate 98 H 10/30/24 14:58 Respiratory Rate 20 10/30/24 14:58 Blood Pressure 132/81 10/30/24 14:58 Pulse Oximetry 98 10/30/24 14:58 Oxygen Delivery Method Room Air 10/30/24 14:58 Medical Decision Making MDM Narrative Medical decision making narrative: Return to the emergency room with chief complaint of worsening dizziness and shortness of breath. She was seen and evaluated yesterday in the emergency room. At that time she had a mildly elevated white blood cell count of 14. Today her white blood cell count is 13.1.. Patient had worsening symptoms of shortness of breath. She denies any chest pain. Upon arrival to the emergency room patient states she did not tell physician yesterday that if she had dark tarry stools. She has a positive occult blood. She takes Coumadin routinely. States last dose of Coumadin was checked last month and was normal. Blood work today shows an INR of 7.9 PTT of 68.2 hemoglobin has decreased also from yesterday from 9.2-8 hematocrit 28-24. Sodium is 134. Patient does show a worsening left lower lobe pneumonia as well. Blood cultures were obtained in the emergency room and Rocephin and doxycycline were started here in the emergency room. Patient was also given a one-time dose of vitamin K here in the emergency room. I spoke to Dr. Poon regarding this patient's care. He agrees to admit her for anemia, GI bleed, elevated INR, and pneumonia. He does suggest she received a unit of blood. She will have the blood started when she receives gets to the floor. She has positive blood type A positive. Patient is made aware of results and agrees with plan of care. Her vital signs are stable. She is not tachycardic. She is not febrile. Patient does have a large hematoma across her back she said she sustained from a fall last week no acute falls no new falls and denies striking her head. Differential Diagnosis Differential Diagnosis: gi bleed anemia pneumonia Medical Records Medical records reviewed: Yes I reviewed the patient's medical records Lab Data Lab results reviewed: Yes I reviewed the patient's lab results Labs: Lab Results 10/30/24 10/30/24 Range/Units 15:26 16:00 WBC 13.2 H (4.0-11.0) 10^3/uL RBC 2.66 L (4.20-5.40) 10^6/uL Hgb 8.0 L (12.0-16.0) g/dL Hct 24.7 L (36.0-48.0) % MCV 92.9 (81.0-99.0) fL MCH 30.1 (26.7-34.0) pg MCHC 32.4 (29.9-35.2) g/dL RDW 17.4 H (11.0-15.0) % Plt Count 459 H (150-450) 10^3/uL MPV 10.3 (9.5-13.5) fL Neut % (Auto) 74.9 (43.0-75.0) % Lymph % (Auto) 18.1 L (20.5-60.0) % [place] % (Auto) 4.8 (1.7-12.0) % Eos % (Auto) 1.2 (0.9-7.0) % Baso % (Auto) 0.4 (0.2-2.0) % Neut # (Auto) 9.9 H (1.4-6.5) 10^3/uL Lymph # (Auto) 2.4 (1.2-3.8) 10^3/uL [place] # (Auto) 0.6 (0.3-0.8) 10^3/uL Eos # (Auto) 0.2 (0.0-0.7) 10^3/uL Baso # (Auto) 0.1 (0.0-0.1) 10^3/uL Abs Immat Gran (auto) 0.08 H (0.00-0.03) 10^3/uL Imm/Tot Granulo (auto) 0.6 H (0.0-0.5) % PT 68.2 H* (9.0-11.6) sec INR 7.90 H* APTT 93.6 H* (22.3-36.2) sec Sodium 134 L (136-145) mmol/L Potassium 4.0 (3.5-5.1) mmol/L Chloride 103 (98-107) mmol/L Carbon Dioxide 22.8 (21.0-32.0) mmol/L Anion Gap 12.2 BUN 11.0 (7.0-18.0) mg/dL Creatinine 0.93 (0.55-1.02) mg/dL Est GFR ( Amer) >60 (>=60 mL/min/1.73m^2) Est GFR (Non-Af Amer) >60 (>=60 mL/min/1.73m^2) BUN/Creatinine Ratio 11.8 Glucose 175 H (74-106) mg/dL Calcium 8.4 L (8.5-10.1) mg/dL Total Bilirubin 0.5 (0.2-1.0) mg/dL AST 31 (15-37) U/L ALT 29 (14-59) U/L Alkaline Phosphatase 56 (46-116) U/L Troponin I High Sens 11.4 (4.0-51.3) pg/mL Total Protein 6.0 L (6.4-8.2) g/dL Albumin 2.4 L (3.4-5.0) g/dL Globulin 3.6 g/dL Albumin/Globulin Ratio 0.7 Stool Occult Blood Positive A Blood Type A Positive Imaging Data Chest x-ray: My impression: lll infiltrate ECG Data Attestation: I personally reviewed and interpreted this ECG as follows: Interpretation: 1500 sinus rhythm with a rate of 94 bpm CA interval 126 ms QRS duration 84 ms nonspecific T wave abnormality noted. No changes to EKG from 10/29/2024. no STEMI Discharge Plan Discharge Chief Complaint: Shortness of Breath/Dyspnea Clinical Impression: Dizziness, Pneumonia, Elevated INR, Acute GI bleeding Patient Disposition: Admitted As Inpatient Time of Disposition Decision: 16:36 Condition: Good
[2024-10-30 15:42] LABS: Basophils Absolute Auto 0.1 10^3/uL (0.0-0.1); Basophils Percent Auto 0.4 % (0.2-2.0); Eosinophils Absolute Auto 0.2 10^3/uL (0.0-0.7); Eosinophils Percent Auto 1.2 % (0.9-7.0); Hematocrit 24.7 % (36.0-48.0); Immature Granulocytes Abs Auto 0.08 10^3/uL (0.00-0.03); Immature Granulocytes Pct Auto 0.6 % (0.0-0.5); Lymphocytes Absolute Auto 2.4 10^3/uL (1.2-3.8); Lymphocytes Percent Auto 18.1 % (20.5-60.0); Mean Corpuscular HGB Conc 32.4 g/dL (29.9-35.2); Mean Corpuscular Hemoglobin 30.1 pg (26.7-34.0); Mean Corpuscular Volume 92.9 fL (81.0-99.0); Mean Platelet Volume 10.3 fL (9.5-13.5); Monocytes Absolute Auto 0.6 10^3/uL (0.3-0.8); Monocytes Percent Auto 4.8 % (1.7-12.0); Neutrophils Absolute Auto 9.9 10^3/uL (1.4-6.5); Neutrophils Percent Auto 74.9 % (43.0-75.0); Platelet Count 459 10^3/uL (150-450); Red Blood Count 2.66 10^6/uL (4.20-5.40); Red Cell Distribution Width 17.4 % (11.0-15.0); White Blood Count 13.2 10^3/uL (4.0-11.0)
[2024-10-30 15:57] LABS: Alanine Aminotransferase 29 U/L (14-59); Albumin Level 2.4 g/dL (3.4-5.0); Alkaline Phosphatase 56 U/L (46-116); Anion Gap 12.2; Aspartate Amino Transferase 31 U/L (15-37); BUN Creatinine Ratio 11.8; Bilirubin Total 0.5 mg/dL (0.2-1.0); Calcium 8.4 mg/dL (8.5-10.1); Carbon Dioxide 22.8 mmol/L (21.0-32.0); Chloride 103 mmol/L (98-107); Estimated GFR (African America >60 (>=60 mL/min/1.73m^2); Estimated GFR (Non-African Ame >60 (>=60 mL/min/1.73m^2); Globulin 3.6 g/dL; Glucose 175 mg/dL (74-106); Sodium 134 mmol/L (136-145); Troponin I High Sensitivity 11.4 pg/mL (4.0-51.3)
[2024-10-30 15:58] LABS: Albumin Globulin Ratio 0.7
[2024-10-30] MEDS: CEFTRIAXONE 1,000 MG in 0.9 % SODIUM CHLORIDE 50 ML 100 MG IV (16:09)
[2024-10-30] MEDS: DOXYCYCLINE HYCLATE 100 MG in 0.9 % SODIUM CHLORIDE 100 ML IV (16:09)
[2024-10-30 16:17] LABS: Partial Thromboplastin Time 93.6 sec (22.3-36.2); Prothrombin Time 68.2 sec (9.0-11.6)
[2024-10-30 16:21] LABS: Internal Control Within Normal Limits; Occult Blood Positive
[2024-10-30] MEDS: PHYTONADIONE (VIT K1) 1 MG/0.5 ML NEWBORN SYRINGE IM (16:59)
--- NOTE | 2024-10-30 19:46 | P.HP_ITS ---
HPI H&P: HPI History of Present Illness Chief complaint: SOB, DIZZINESS Gi BLEED ANEMIA PNEUMONIA ELEVATED Narrative: Patient seen and evaluated emergency room yesterday with some mild shortness of breath, workup there was essentially unremarkable, did not check an INR at that stage, patient came back today with increasing cough and shortness of breath, chest x-ray suggestive of left lower lobe pneumonia, Coumadin toxicity with INR greater than 7, lactic acidosis consistent with sepsis Opioid HPI Opioid Management Most Recent Pain and Opioid Data: Last Pain Scale 10 10/22/24 21:46 10/22/24 Last Pain Assessment 10/30/24 18:00 Last ORT Total Score 8 10/30/24 17:53 10/30/24 Last ORT Risk Category High Risk 10/30/24 17:53 10/30/24 Review of Systems ROS Status of ROS 10 or more systems reviewed and unremark able except as noted in history and below [facility] Medical History Pacemaker ?Z95.0 - Presence of cardiac pacemaker (ICD-10) Diabetes ?E11.9 - Type 2 diabetes mellitus without complications (ICD-10) Bipolar 1 disorder, depressed ?F31.9 - Bipolar disorder, unspecified (ICD-10) HTN (hypertension) ?I10 - Essential (primary) hypertension (ICD-10) High cholesterol ?E78.00 - Pure hypercholesterolemia, unspecified (ICD-10) Afib ?I48.91 - Unspecified atrial fibrillation (ICD-10) Surgical History (Updated 10/30/24 @ 18:16 by Franchesca Dumas RN) History of bowel resection ?Z90.49 - Acquired absence of other specified parts of digestive tract (ICD- 10) Family History (Updated 10/30/24 @ 18:15 by Franchesca Dumas RN) Father Heart attack Brother Heart attack Sister Heart attack Diabetes Son Diabetes Social History (Updated 10/30/24 @ 18:17 by Franchesca Dumas RN) Within the past year, how often did you have a drink containing alcohol: never Within the past year, how often did you have six or more drinks on one occasion: never Score interpretation: A score less than 3 is consistent with normal alcohol consumption. 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 Known occupational exposures/hazards: No Highest level of school completed/degree received: GED or equivalent Little interest or pleasure in doing things: not at all Feeling down, depressed, or hopeless: several days Meds Home Medications and Allergies Home Medications ?Medication ?Instructions ?Recorded ?Confirmed ?Type amiodarone 200 mg tablet 200 mg PO Q24H 10/22/24 10/30/24 History lansoprazole 30 mg capsule,delayed 30 mg PO Q8H 10/22/24 10/30/24 History release lisinopril 2.5 mg tablet 2.5 mg PO DAILY 10/22/24 10/30/24 History lurasidone 60 mg tablet 60 mg PO DAILY 10/22/24 10/30/24 History meclizine 25 mg tablet 25 mg PO BID PRN dizziness 10/22/24 10/30/24 History melatonin 5 mg tablet 5 mg PO DAILY 10/22/24 10/30/24 History metoprolol succinate 25 mg 25 mg PO DAILY 10/22/24 10/30/24 History tablet,extended release 24 hr mexiletine 150 mg capsule 150 mg PO Q8H 10/22/24 10/30/24 History oxybutynin chloride 10 mg 10 mg PO DAILY 10/22/24 10/30/24 History tablet,extended release 24 hr quetiapine 200 mg tablet 200 mg PO DAILY 10/22/24 10/30/24 History ranolazine 500 mg tablet,extended 500 mg PO Q12H 10/22/24 10/30/24 History release,12 hr rosuvastatin 10 mg tablet 10 mg PO DAILY 10/22/24 10/30/24 History warfarin 2.5 mg tablet 2.5 mg PO DAILY 10/22/24 10/30/24 History magnesium 200 mg tablet 200 mg PO BID 10/30/24 10/30/24 History Allergies Allergy/AdvReac Type Severity Reaction Status Date / Time No Known Drug Allergies Allergy Verified 08/31/24 15:57 Exam Constitutional Vital Signs, click to edit/add: Last Vital Signs Temp 98.2 F 10/30/24 19:43 Pulse 84 10/30/24 19:43 Resp 18 10/30/24 19:43 BP 113/68 10/30/24 19:43 Pulse Ox 95 10/30/24 19:43 O2 Del Method Room Air 10/30/24 19:43 Documenting provider has reviewed patient's vital signs: yes Common normals: no apparent distress (Cough throughout the evaluation) HENMT Common normals: normocephalic and head/scalp atraumatic Chest Common normals: inspection of chest normal and palpation of chest normal Respiratory Common normals: normal respiratory effort and no retractions Auscultation: rhonchi (Throughout but more prominent left lower lobe but no egophony) Cardio Common normals: regular rate and regular rhythm GI Common normals: Normal to inspection, nondistended, normoactive bowel sounds present, soft to palpation and non-tender Results Labs Labs: Short CBC 10/30/24 Range/Units 15:26 WBC 13.2 H (4.0-11.0) 10^3/uL Hgb 8.0 L (12.0-16.0) g/dL Hct 24.7 L (36.0-48.0) % Plt Count 459 H (150-450) 10^3/uL BMP 10/30/24 15:26 Sodium 134 L Potassium 4.0 Chloride 103 Carbon Dioxide 22.8 BUN 11.0 Creatinine 0.93 Glucose 175 H Calcium 8.4 L Liver Function 10/30/24 Range/Units 15:26 Total Bilirubin 0.5 (0.2-1.0) mg/dL AST 31 (15-37) U/L ALT 29 (14-59) U/L Alkaline Phosphatase 56 (46-116) U/L Albumin 2.4 L (3.4-5.0) g/dL Assessment and Plan Assessment and Plan (1) Acute GI bleeding: (2) Elevated INR: (3) Pneumonia: (4) Dyspnea: (5) Diabetes: (6) HTN (hypertension): (7) Bipolar 1 disorder, depressed: Plan Admission findings: Sinus tachycardia, respiratory distress, leukocytosis, thrombocythemia, coagulopathy, lactic acidosis, hyperglycemia secondary to left lower lobe pneumonia, viral studies negative, meeting criteria for severe sepsis, held off on IV aggressive fluid resuscitation secondary to coronary artery disease and a remote history of heart failure Severe sepsis secondary to lower lower lobe pneumonia (tachycardia, respiratory distress, leukocytosis, known infection source of left lower lobe and lactic acidosis)-IV antibiotics, Rocephin and levofloxacin, aerosol treatments, try to obtain sputum with scant sample Coagulopathy secondary to the sepsis, no change in dose recently, will hold off on Coumadin currently she received 1 mg of vitamin K in ER, repeat level this evening, 5 mg orally if not improved less than 5 Thrombocythemia-this is likely bone marrow stimulation from the severe sepsis- monitor daily Coronary artery disease maintain current medications, history of heart failure in the past as well. High-sensitivity troponin and BNP are normal Bipolar disorder-continue with home medications Acute blood loss anemia secondary to acute upper gastrointestinal bleeding complicated by the coagulopathy and complicated by history of GERD-IV Protonix twice daily, repeat CBC in a.m., was given 1 unit of PRBCs in ER Hypertension by history-monitor closely Hypomagnesemia-continue supplementation Bladder spasms-continue with home medications Hypercholesterolemia continue current medications Admission status: Coagulopathy, severe sepsis secondary to left lower lobe pneumonia, medically necessary treatment will last 2 midnights. Inpatient status.
[2024-10-30 21:10] LABS: Influenza Virus A Antigen Negative; Influenza Virus B Antigen Negative; Internal Control Within Normal Limits; SARS-CoV-2 Ag NEGATIVE (NEGATIVE)
[2024-10-30 21:12] LABS: Lactate/Lactic Acid 1.7 mmol/L (0.4-2.0); Troponin I High Sensitivity 8.6 pg/mL (4.0-51.3)
[2024-10-30 21:32] LABS: INR 7.41; Prothrombin Time 64.4 sec (9.0-11.6)
[2024-10-30] MEDS: IPRATROPIUM/ALBUTEROL SULFATE 3 ML AMPUL.NEB IH (22:04)
[2024-10-30] MEDS: MAGNESIUM OXIDE 400 MG TABLET 200 MG PO (22:54)
[2024-10-30] MEDS: PHYTONADIONE (VIT K1) 10 MG/ML AMPUL 5 MG PO (22:54)
[2024-10-30] MEDS: RANOLAZINE 500 MG TAB.ER.12H PO (22:54)
[2024-10-31] VITALS (11 sets, daily range): BP systolic 101–125; BP diastolic 63–74; PULSE 76–90; TEMP 36.4–37; O2SAT 90–98
[2024-10-31] MEDS: LEVOFLOXACIN IN DEXTROSE 5 % 750 MG/150 ML PREMIX 100 MG IV (01:25)
[2024-10-31] MEDS: PANTOPRAZOLE SODIUM 40 MG VIAL IV ×2 (01:25→14:46)
[2024-10-31] MEDS: IPRATROPIUM/ALBUTEROL SULFATE 3 ML AMPUL.NEB IH ×3 (05:12→22:39)
[2024-10-31 05:30] LABS: Basophils Absolute Auto 0.1 10^3/uL (0.0-0.1); Basophils Percent Auto 0.4 % (0.2-2.0); Eosinophils Absolute Auto 0.2 10^3/uL (0.0-0.7); Eosinophils Percent Auto 1.4 % (0.9-7.0); Hematocrit 28.4 % (36.0-48.0); Hemoglobin 9.2 g/dL (12.0-16.0); Immature Granulocytes Abs Auto 0.11 10^3/uL (0.00-0.03); Immature Granulocytes Pct Auto 0.8 % (0.0-0.5); Lymphocytes Absolute Auto 2.6 10^3/uL (1.2-3.8); Lymphocytes Percent Auto 18.6 % (20.5-60.0); Mean Corpuscular HGB Conc 32.4 g/dL (29.9-35.2); Mean Corpuscular Hemoglobin 29.3 pg (26.7-34.0); Mean Corpuscular Volume 90.4 fL (81.0-99.0); Mean Platelet Volume 10.1 fL (9.5-13.5); Monocytes Absolute Auto 1.1 10^3/uL (0.3-0.8); Monocytes Percent Auto 7.6 % (1.7-12.0); Neutrophils Percent Auto 71.2 % (43.0-75.0); Platelet Count 398 10^3/uL (150-450); Red Blood Count 3.14 10^6/uL (4.20-5.40); Red Cell Distribution Width 17.6 % (11.0-15.0)
[2024-10-31 05:44] LABS: INR 2.59
[2024-10-31 05:51] LABS: Alanine Aminotransferase 26 U/L (14-59); Albumin Globulin Ratio 0.6; Albumin Level 2.3 g/dL (3.4-5.0); Alkaline Phosphatase 55 U/L (46-116); Anion Gap 12.6; Aspartate Amino Transferase 29 U/L (15-37); BUN Creatinine Ratio 10.9; Bilirubin Total 0.8 mg/dL (0.2-1.0); Calcium 8.3 mg/dL (8.5-10.1); Carbon Dioxide 23.4 mmol/L (21.0-32.0); Chloride 104 mmol/L (98-107); Estimated GFR (African America >60 (>=60 mL/min/1.73m^2); Estimated GFR (Non-African Ame >60 (>=60 mL/min/1.73m^2); Globulin 3.6 g/dL; Glucose 87 mg/dL (74-106); Sodium 136 mmol/L (136-145); Total Protein 5.9 g/dL (6.4-8.2)
--- NOTE | 2024-10-31 09:14 | CM.NOTE ---
Rounds made with Dr. Poon, pt continues to c/o SOB. No discharge today, continue IV antibiotics and breathing tx.
[2024-10-31] MEDS: MECLIZINE HCL 12.5 MG TABLET 25 MG PO (09:29)
[2024-10-31] MEDS: AMIODARONE HCL 200 MG TABLET PO (09:30)
[2024-10-31] MEDS: MAGNESIUM OXIDE 400 MG TABLET 200 MG PO ×2 (09:30→21:41)
[2024-10-31] MEDS: LISINOPRIL 5 MG TABLET 2.5 MG PO (09:31)
[2024-10-31] MEDS: ATORVASTATIN CALCIUM 40 MG TABLET PO (09:31)
[2024-10-31] MEDS: OXYBUTYNIN CHLORIDE 5 MG TAB XL 10 MG PO (09:32)
[2024-10-31] MEDS: RANOLAZINE 500 MG TAB.ER.12H PO ×2 (09:32→21:41)
[2024-10-31] MEDS: METOPROLOL SUCCINATE 25 MG TAB.ER.24H PO (09:32)
[2024-10-31] MEDS: PIPERACILLIN SODIUM/TAZOBACTAM 3.375 GM in 0.9 % SODIUM CHLORIDE 50 ML IV ×2 (09:33→17:53)
--- NOTE | 2024-10-31 10:25 | P.PN_ITS ---
Progress Note: Subjective Subjective Interval history: Patient still with significant shortness of breath. Exam Constitutional Vital Signs, click to edit/add: Last Vital Signs Temp 97.8 F 10/31/24 08:00 Pulse 77 10/31/24 08:00 Resp 16 10/31/24 08:00 BP 118/73 10/31/24 08:00 Pulse Ox 94 L 10/31/24 08:00 O2 Del Method Room Air 10/31/24 08:00 Documenting provider has reviewed patient's vital signs: yes Common normals: no apparent distress (Cough throughout the evaluation) HENMT Common normals: normocephalic and head/scalp atraumatic Chest Common normals: inspection of chest normal and palpation of chest normal Respiratory Common normals: normal respiratory effort and no retractions Auscultation: rhonchi (Throughout but more prominent left lower lobe but no egophony-unchanged) Cardio Common normals: regular rate and regular rhythm GI Common normals: Normal to inspection, nondistended, normoactive bowel sounds present, soft to palpation and non-tender Progress Note: Objective Labs Labs: Short CBC 10/30/24 10/31/24 Range/Units 15:26 05:04 WBC 13.2 H 14.0 H (4.0-11.0) 10^3/uL Hgb 8.0 L 9.2 L (12.0-16.0) g/dL Hct 24.7 L 28.4 L (36.0-48.0) % Plt Count 459 H 398 (150-450) 10^3/uL BMP 10/30/24 10/31/24 15:26 05:04 Sodium 134 L 136 Potassium 4.0 4.0 Chloride 103 104 Carbon Dioxide 22.8 23.4 BUN 11.0 7.0 Creatinine 0.93 0.64 Glucose 175 H 87 Calcium 8.4 L 8.3 L Liver Function 10/30/24 10/31/24 Range/Units 15:26 05:04 Total Bilirubin 0.5 0.8 (0.2-1.0) mg/dL AST 31 29 (15-37) U/L ALT 29 26 (14-59) U/L Alkaline Phosphatase 56 55 (46-116) U/L Albumin 2.4 L 2.3 L (3.4-5.0) g/dL Progress Note: A&P Assessment and Plan (1) Acute GI bleeding: (2) Elevated INR: (3) Pneumonia: (4) Dyspnea: (5) Diabetes: (6) HTN (hypertension): (7) Bipolar 1 disorder, depressed: Plan Admission findings: Sinus tachycardia, respiratory distress, leukocytosis, thrombocythemia, coagulopathy, lactic acidosis, hyperglycemia secondary to left lower lobe pneumonia, viral studies negative, meeting criteria for severe sepsis, held off on IV aggressive fluid resuscitation secondary to coronary artery disease and a remote history of heart failure Severe sepsis secondary to lower lower lobe pneumonia (tachycardia, respiratory distress, leukocytosis, known infection source of left lower lobe and lactic acidosis)-white blood cell count is higher today, will adjust antibiotics today., Patient still symptomatic as well. Not hypoxic but still significant dyspnea with any activity Coagulopathy secondary to the sepsis, no change in dose recently, will hold off on Coumadin currently she received 1 mg of vitamin K in ER, repeat level this evening, 5 mg yesterday seem to improve things, will place back on low-dose overdose today Thrombocythemia-improved Coronary artery disease maintain current medications, history of heart failure in the past as well. High-sensitivity troponin and BNP are normal Bipolar disorder-continue with home medications Acute blood loss anemia secondary to acute upper gastrointestinal bleeding complicated by the coagulopathy and complicated by history of GERD-IV Protonix twice daily, repeat CBC in a.m., was given 1 unit of PRBCs in ER Hypertension by history-monitor closely Restless leg syndrome-continue with home medications of ropinirole Hypomagnesemia-continue supplementation Bladder spasms-continue with home medications Hypercholesterolemia continue current medications Admission status: Coagulopathy, severe sepsis secondary to left lower lobe pneumonia, medically necessary treatment will last 2 midnights. Inpatient status. Likely 1 more day of hospitalization, unable to discharge today secondary to his significantly elevated white blood cell count compared to previous day ?
--- NOTE | 2024-10-31 10:30 | CM.NOTE ---
Important Message From Medicare discussed with pt, pt verbalizes understanding and signs paper. Original given to pt and copy placed on pt's chart.
[2024-10-31] MEDS: NICOTINE 21 MG PATCH.TD24 TD (13:22)
[2024-10-31] MEDS: ROPINIROLE HCL 1 MG TABLET 2 MG PO (21:41)
[2024-10-31] MEDS: QUETIAPINE FUMARATE 100 MG TABLET 200 MG PO (21:41)
[2024-11-01] VITALS (12 sets, daily range): BP systolic 97–125; BP diastolic 61–76; PULSE 71–90; TEMP 36.6–36.8; O2SAT 92–96
[2024-11-01] MEDS: ALBUTEROL SULFATE 2.5 MG/3 ML VIAL NEB IH (01:24)
[2024-11-01] MEDS: PANTOPRAZOLE SODIUM 40 MG VIAL IV ×2 (01:53→13:16)
[2024-11-01] MEDS: PIPERACILLIN SODIUM/TAZOBACTAM 3.375 GM in 0.9 % SODIUM CHLORIDE 50 ML IV ×3 (01:53→18:14)
[2024-11-01] MEDS: IPRATROPIUM/ALBUTEROL SULFATE 3 ML AMPUL.NEB IH ×5 (05:16→23:00)
[2024-11-01 05:29] LABS: Basophils Absolute Auto 0.1 10^3/uL (0.0-0.1); Basophils Percent Auto 0.4 % (0.2-2.0); Eosinophils Absolute Auto 0.2 10^3/uL (0.0-0.7); Eosinophils Percent Auto 0.9 % (0.9-7.0); Hematocrit 26.5 % (36.0-48.0); Hemoglobin 8.7 g/dL (12.0-16.0); Immature Granulocytes Abs Auto 0.11 10^3/uL (0.00-0.03); Immature Granulocytes Pct Auto 0.7 % (0.0-0.5); Lymphocytes Absolute Auto 2.9 10^3/uL (1.2-3.8); Lymphocytes Percent Auto 17.7 % (20.5-60.0); Mean Corpuscular HGB Conc 32.8 g/dL (29.9-35.2); Mean Corpuscular Volume 91.4 fL (81.0-99.0); Monocytes Absolute Auto 1.2 10^3/uL (0.3-0.8); Monocytes Percent Auto 7.5 % (1.7-12.0); Neutrophils Absolute Auto 11.7 10^3/uL (1.4-6.5); Neutrophils Percent Auto 72.8 % (43.0-75.0); Platelet Count 343 10^3/uL (150-450); White Blood Count 16.1 10^3/uL (4.0-11.0)
[2024-11-01 05:43] LABS: INR 1.14; Prothrombin Time 11.9 sec (9.0-11.6)
[2024-11-01 05:52] LABS: Alanine Aminotransferase 24 U/L (14-59); Albumin Globulin Ratio 0.7; Albumin Level 2.4 g/dL (3.4-5.0); Alkaline Phosphatase 51 U/L (46-116); Anion Gap 14.3; Aspartate Amino Transferase 24 U/L (15-37); BUN Creatinine Ratio 6.4; Bilirubin Total 0.7 mg/dL (0.2-1.0); Calcium 8.5 mg/dL (8.5-10.1); Carbon Dioxide 23.3 mmol/L (21.0-32.0); Chloride 101 mmol/L (98-107); Estimated GFR (African America >60 (>=60 mL/min/1.73m^2); Estimated GFR (Non-African Ame >60 (>=60 mL/min/1.73m^2); Globulin 3.5 g/dL; Glucose 98 mg/dL (74-106); Potassium 3.6 mmol/L (3.5-5.1); Sodium 135 mmol/L (136-145); Total Protein 5.9 g/dL (6.4-8.2)
[2024-11-01] MEDS: LISINOPRIL 5 MG TABLET PO (06:42)
--- NOTE | 2024-11-01 08:29 | XR_ITS ---
The [address] [address] Patient Name: KING MORENO MRN: [id number] date: 1960 Sex: F Assigned Patient Location: [place] Current Patient Location: [place] Accession/Order Number: [id number] Exam Date: 11/01/2024 09:30 Report Date: 11/01/2024 10:00 At the request of: SAMUEL SNOWDEN Procedure: XR chest 2V EXAMINATION: XR chest 2V HISTORY: pneumonia follow up COMPARISON: 10/29/2024 TECHNIQUE: PA and lateral FINDINGS: LUNGS: No significant pulmonary parenchymal abnormalities. VASCULATURE: No increased pulmonary vasculature. PLEURA: No pneumothorax, effusion, or pleural thickening. CARDIAC: No cardiomegaly or cardiac silhouette abnormality. MEDIASTINUM: No visible mass or adenopathy. Right bipolar pacemaker BONES: No fracture or visible bone lesion. OTHER: Negative. XR/XR chest 2V IMPRESSION: No acute cardiopulmonary process Electronically authenticated by: DANI GUILLERMO Date: 11/01/2024 10:00
[2024-11-01] MEDS: OXYBUTYNIN CHLORIDE 5 MG TAB XL 10 MG PO (08:35)
[2024-11-01] MEDS: MAGNESIUM OXIDE 400 MG TABLET 200 MG PO ×2 (08:35→21:06)
[2024-11-01] MEDS: AMIODARONE HCL 200 MG TABLET PO (08:35)
[2024-11-01] MEDS: RANOLAZINE 500 MG TAB.ER.12H PO ×2 (08:37→21:06)
[2024-11-01] MEDS: METOPROLOL SUCCINATE 25 MG TAB.ER.24H PO (08:37)
[2024-11-01] MEDS: ATORVASTATIN CALCIUM 40 MG TABLET PO (08:38)
[2024-11-01] MEDS: METHYLPREDNISOLONE SOD SUCC PF 125 MG/2 ML VIAL 60 MG IVP ×3 (08:45→21:06)
--- NOTE | 2024-11-01 08:50 | REH.PTDLY ---
Physical Therapy Daily Note PT Daily Note/Assess Start: 10/31/24 09:34 Freq: Status: Active Protocol: Document 11/01/24 08:04 DEBBY (Rec: 11/01/24 08:50 [id number] [id number]) Physical Therapy Daily Note/Assessment Time In 07:50 Time Out 08:04 Subjective Pt awake laying in bed. States that she has already gotten up and walked a few laps in her room. Therapeutic Exercise 4 Minutes (minutes) Therapeutic Exercise 0 Units Therapeutic Exercise Instructed in seated marching, LAQ and hip add squeeze Treatment for strength 10x ea with no complaints of discomfort or fatigue with these. Therapeutic Activity 8 Minutes (minutes) Therapeutic Activity 1 Units Therapeutic Activity Min A with supine to sit transfers. Sit to stand Comments transfer CGA. Gait training with SC CGA 135 feet with pt needing to stop and take 1 standing rest break due to fatigue and dizziness. Pt states dizziness comes and goes. Pt sits in chair and then performs sit to stand transfers with 1 UE support pushing off arm of chair 5x in a row. Neuromuscular 2 Reeducation Minutes (minutes) Neuromuscular 0 Reeducation Units Neuromuscular Standing with NBOS instructed in static stance with Reeducation eyes open 20 secs with no sway noted. Arm raises 10x ea followed by CROM 10x ea with this increasing dizziness and pt requesting to sit down. Total Therapy 14 Minutes Total Physical 1 Therapy Units Daily Note Summary Pt fatigues with gait and does have some dizziness when up and moving after distance. Pt uses SC during rx with minimal reliance at first with gait, increasing use of SC as she fatigues. Pt has no LOB during rx from dizziness.
--- NOTE | 2024-11-01 08:57 | CM.NOTE ---
Rounds made with Dr. Poon, pt continues with SOB. Dr. Poon will recheck chest x-ray today. No discharge today.
[2024-11-01] MEDS: 0.9 % SODIUM CHLORIDE 250 ML 10 ML IV (09:44)
--- NOTE | 2024-11-01 12:50 | P.PN_ITS ---
Progress Note: Subjective Subjective Interval history: Patient still describing significant dyspnea with any activity. Just going to the bathroom in her room causes her to be shortness of breath. Exam Constitutional Vital Signs, click to edit/add: Last Vital Signs Temp 98.1 F 11/01/24 11:39 Pulse 75 11/01/24 11:39 Resp 20 11/01/24 11:39 BP 100/61 11/01/24 11:39 Pulse Ox 93 L 11/01/24 11:39 O2 Del Method Room Air 11/01/24 11:39 Documenting provider has reviewed patient's vital signs: yes Common normals: no apparent distress (Cough throughout the evaluation) HENMT Common normals: normocephalic and head/scalp atraumatic Chest Common normals: inspection of chest normal and palpation of chest normal Respiratory Common normals: normal respiratory effort and no retractions Auscultation: rhonchi (Throughout but more prominent left lower lobe but no egophony-unchanged) Cardio Common normals: regular rate and regular rhythm GI Common normals: Normal to inspection, nondistended, normoactive bowel sounds present, soft to palpation and non-tender Progress Note: Objective Labs Labs: Short CBC 11/01/24 Range/Units 05:21 WBC 16.1 H (4.0-11.0) 10^3/uL Hgb 8.7 L (12.0-16.0) g/dL Hct 26.5 L (36.0-48.0) % Plt Count 343 (150-450) 10^3/uL BMP 11/01/24 05:21 Sodium 135 L Potassium 3.6 Chloride 101 Carbon Dioxide 23.3 BUN 5.0 L Creatinine 0.78 Glucose 98 Calcium 8.5 Liver Function 11/01/24 Range/Units 05:21 Total Bilirubin 0.7 (0.2-1.0) mg/dL AST 24 (15-37) U/L ALT 24 (14-59) U/L Alkaline Phosphatase 51 (46-116) U/L Albumin 2.4 L (3.4-5.0) g/dL Progress Note: A&P Assessment and Plan (1) Acute GI bleeding: (2) Elevated INR: (3) Pneumonia: (4) Dyspnea: (5) Diabetes: (6) HTN (hypertension): (7) Bipolar 1 disorder, depressed: Plan Admission findings: Sinus tachycardia, respiratory distress, leukocytosis, thrombocythemia, coagulopathy, lactic acidosis, hyperglycemia secondary to left lower lobe pneumonia, viral studies negative, meeting criteria for severe sepsis, held off on IV aggressive fluid resuscitation secondary to coronary artery disease and a remote history of heart failure Severe sepsis secondary to lower lower lobe pneumonia (tachycardia, respiratory distress, leukocytosis, known infection source of left lower lobe and lactic acidosis)-white blood cell count is higher today, will adjust antibiotics today., White blood cell count is higher today, antibiotics were just changed yesterday, will add a dose of steroids which will affect the white blood cell count further likely, repeat chest x-ray still clear, BNP normal Coagulopathy secondary to the sepsis,-resolved, restarted Coumadin last night at 2 mg instead of 2.5 Thrombocythemia-improved Coronary artery disease maintain current medications, history of heart failure in the past as well. High-sensitivity troponin and BNP are normal Bipolar disorder-continue with home medications Acute blood loss anemia secondary to acute upper gastrointestinal bleeding complicated by the coagulopathy and complicated by history of GERD-IV Protonix twice daily, repeat CBC in a.m., was given 1 unit of PRBCs in ER, hemoglobin down slightly but overall stable Hypertension by history-monitor closely Restless leg syndrome-continue with home medications of ropinirole L Hypomagnesemia-continue supplementation Bladder spasms-continue with home medications Hypercholesterolemia continue current medications Admission status: Coagulopathy, severe sepsis secondary to left lower lobe pneumonia, medically necessary treatment will last 2 midnights. Inpatient statu s. Likely 1 more day of hospitalization, unable to discharge today secondary to his significantly elevated white blood cell count compared to previous day ?
[2024-11-01] MEDS: NICOTINE 21 MG PATCH.TD24 TD (15:12)
[2024-11-01] MEDS: WARFARIN SODIUM 1 MG TABLET 2 MG PO (16:11)
[2024-11-01] MEDS: ROPINIROLE HCL 1 MG TABLET 2 MG PO (21:07)
[2024-11-01] MEDS: QUETIAPINE FUMARATE 100 MG TABLET 200 MG PO (21:07)
[2024-11-01] MEDS: LEVOFLOXACIN IN DEXTROSE 5 % 750 MG/150 ML PREMIX 100 MG IV (22:27)
[2024-11-02] MEDS: PANTOPRAZOLE SODIUM 40 MG VIAL IV (02:10)
[2024-11-02] MEDS: METHYLPREDNISOLONE SOD SUCC PF 125 MG/2 ML VIAL 60 MG IVP ×2 (02:10→08:51)
[2024-11-02] MEDS: PIPERACILLIN SODIUM/TAZOBACTAM 3.375 GM in 0.9 % SODIUM CHLORIDE 50 ML IV (02:11)
[2024-11-02 04:00] VITALS: BP 98/59; PULSE 77; TEMP 36.4; O2SAT 91
[2024-11-02 04:12] VITALS: PULSE 81; O2SAT 96
[2024-11-02] MEDS: IPRATROPIUM/ALBUTEROL SULFATE 3 ML AMPUL.NEB IH ×2 (04:12→06:57)
[2024-11-02 06:58] VITALS: PULSE 97; O2SAT 96
[2024-11-02 07:29] LABS: Basophils Percent Auto 0.1 % (0.2-2.0); Hematocrit 27.1 % (36.0-48.0); Hemoglobin 8.8 g/dL (12.0-16.0); Immature Granulocytes Abs Auto 0.13 10^3/uL (0.00-0.03); Immature Granulocytes Pct Auto 0.6 % (0.0-0.5); Lymphocytes Absolute Auto 1.4 10^3/uL (1.2-3.8); Lymphocytes Percent Auto 6.5 % (20.5-60.0); Mean Corpuscular HGB Conc 32.5 g/dL (29.9-35.2); Mean Corpuscular Hemoglobin 29.8 pg (26.7-34.0); Mean Corpuscular Volume 91.9 fL (81.0-99.0); Mean Platelet Volume 10.3 fL (9.5-13.5); Monocytes Absolute Auto 0.4 10^3/uL (0.3-0.8); Monocytes Percent Auto 1.9 % (1.7-12.0); Neutrophils Absolute Auto 18.9 10^3/uL (1.4-6.5); Neutrophils Percent Auto 90.9 % (43.0-75.0); Platelet Count 454 10^3/uL (150-450); Red Blood Count 2.95 10^6/uL (4.20-5.40); White Blood Count 20.8 10^3/uL (4.0-11.0)
[2024-11-02 07:45] LABS: INR 1.24; Prothrombin Time 12.9 sec (9.0-11.6)
[2024-11-02 07:47] LABS: Alanine Aminotransferase 25 U/L (14-59); Albumin Globulin Ratio 0.6; Albumin Level 2.4 g/dL (3.4-5.0); Alkaline Phosphatase 50 U/L (46-116); Anion Gap 11.6; Aspartate Amino Transferase 23 U/L (15-37); BUN Creatinine Ratio 13.3; Bilirubin Total 0.4 mg/dL (0.2-1.0); Carbon Dioxide 25.4 mmol/L (21.0-32.0); Chloride 106 mmol/L (98-107); Estimated GFR (African America >60 (>=60 mL/min/1.73m^2); Estimated GFR (Non-African Ame >60 (>=60 mL/min/1.73m^2); Globulin 3.8 g/dL; Glucose 132 mg/dL (74-106); Sodium 139 mmol/L (136-145); Total Protein 6.2 g/dL (6.4-8.2)
[2024-11-02 08:12] VITALS: BP 104/64; PULSE 97; TEMP 35.9; O2SAT 93
[2024-11-02] MEDS: RANOLAZINE 500 MG TAB.ER.12H PO (08:50)
[2024-11-02] MEDS: AMIODARONE HCL 200 MG TABLET PO (08:50)
[2024-11-02] MEDS: METOPROLOL SUCCINATE 25 MG TAB.ER.24H PO (08:50)
[2024-11-02] MEDS: MAGNESIUM OXIDE 400 MG TABLET 200 MG PO (08:50)
[2024-11-02] MEDS: ATORVASTATIN CALCIUM 40 MG TABLET PO (08:50)
[2024-11-02] MEDS: OXYBUTYNIN CHLORIDE 5 MG TAB XL 10 MG PO (08:50)
[2024-11-02] MEDS: LISINOPRIL 5 MG TABLET PO (08:50)
[2024-11-02] MEDS: ENSURE ORIGINAL 237 ML BOTTLE PO (08:51)
[2024-11-02] MEDS: AZITHROMYCIN 500 MG in 0.9 % SODIUM CHLORIDE 250 ML 250 MG IV (09:22)
--- NOTE | 2024-11-02 10:05 | P.DS_ITS ---
DS: Providers Provider Date of admission: 10/30/24 17:27 Primary care physician: Conchita Aden MD Consults: 10/30/24 16:32 Consult to Pharmacy Routine Consulting Provider: Reason for consultation: Please [place] me when Med Rec is Updated Has provider been notified: No Occupational Therapy Eval and Treat Routine Reason for consultation: Only if needed for Rehab Has provider been notified: No Physical Therapy Eval and Treat Routine Reason for consultation: Eval and Treat Has provider been notified: No DS: Diagnosis Discharge Diagnosis (1) Acute GI bleeding: (2) Elevated INR: (3) Pneumonia: (4) Dyspnea: (5) Diabetes: (6) HTN (hypertension): (7) Bipolar 1 disorder, depressed: Plan Admission findings: Sinus tachycardia, respiratory distress, leukocytosis, thrombocythemia, coagulopathy, lactic acidosis, hyperglycemia secondary to left lower lobe pneumonia, viral studies negative, meeting criteria for severe sepsis, held off on IV aggressive fluid resuscitation secondary to coronary artery disease and a remote history of heart failure Severe sepsis secondary to lower lower lobe pneumonia (tachycardia, respiratory distress, leukocytosis, known infection source of left lower lobe and lactic acidosis)-white blood cell count is higher today, will adjust antibiotics today., White blood cell count is higher today, antibiotics were just changed yesterday, will add a dose of steroids which will affect the white blood cell count further likely, repeat chest x-ray still clear, BNP normal Coagulopathy secondary to the sepsis,-resolved, restarted Coumadin last night at 2 mg instead of 2.5 Thrombocythemia-improved Coronary artery disease maintain current medications, history of heart failure in the past as well. High-sensitivity troponin and BNP are normal Bipolar disorder-continue with home medications Acute blood loss anemia secondary to acute upper gastrointestinal bleeding complicated by the coagulopathy and complicated by history of GERD-IV Protonix twice daily, repeat CBC in a.m., was given 1 unit of PRBCs in ER, hemoglobin down slightly but overall stable Hypertension by history-monitor closely Restless leg syndrome-continue with home medications of ropinirole Hypomagnesemia-continue supplementation Bladder spasms-continue with home medications Hypercholesterolemia continue current medications Admission status: Coagulopathy, severe sepsis secondary to left lower lobe pneumonia, medically necessary treatment will last 2 midnights. Inpatient status. Likely 1 more day of hospitalization, unable to discharge today secondary to his significantly elevated white blood cell count compared to previous day ? ? DS: Summary Hospital Course Hospital Course: Patient is seen and evaluated in the emergency room and found to have Sinus tachycardia, respiratory distress, leukocytosis, thrombocythemia, coagulopathy, lactic acidosis, hyperglycemia secondary to left lower lobe pneumonia, viral studies negative, meeting criteria for severe sepsis, held off on IV aggressive fluid resuscitation secondary to coronary artery disease and a remote history of heart failure, patient was given IV antibiotics, she did not improve over the first 36 to 48 hours, antibiotics were changed, white blood cell continues to elevate, today it is higher than yesterday but she feels tons better after starting the steroids. With that improvement she is ambulating without significant dyspnea and now yesterday she had dyspnea with walking 10 feet, she feels comfort going home and following up with her PCP closely, will discharge patient home with tapering doses of steroids and oral antibiotics. Medications see list. Follow-up with PCP within the next week. Status at Discharge Overall status at discharge: patient is not back to baseline Time Spent with Patient Time attestation: Total time spent providing and/or coordinating discharge services: Time spent: greater than 30 minutes Exam Constitutional Vital Signs, click to edit/add: Last Vital Signs Temp 96.7 F L 11/02/24 08:12 Pulse 97 H 11/02/24 08:12 Resp 18 11/02/24 08:12 BP 104/64 11/02/24 08:12 Pulse Ox 93 L 11/02/24 08:12 O2 Del Method Room Air 11/02/24 08:12 Documenting provider has reviewed patient's vital signs: yes Common normals: no apparent distress (Cough throughout the evaluation) [facility] Common normals: normocephalic and head/scalp atraumatic Chest Common normals: inspection of chest normal and palpation of chest normal Respiratory Common normals: normal respiratory effort and no retractions Auscultation: rhonchi (much improved) Cardio Common normals: regular rate and regular rhythm GI Common normals: Normal to inspection, nondistended, normoactive bowel sounds present, soft to palpation and non-tender DS: Data Data Completed and Pending Labs on day of discharge: Labs from last 24 hours 11/02/24 07:09 WBC 20.8 H RBC 2.95 L Hgb 8.8 L Hct 27.1 L MCV 91.9 MCH 29.8 MCHC 32.5 RDW 18.0 H Plt Count 454 H MPV 10.3 Neut % (Auto) 90.9 H Lymph % (Auto) 6.5 L [place] % (Auto) 1.9 Eos % (Auto) 0.0 L Baso % (Auto) 0.1 L Neut # (Auto) 18.9 H Lymph # (Auto) 1.4 [place] # (Auto) 0.4 Eos # (Auto) 0.0 Baso # (Auto) 0.0 Abs Immat Gran (auto) 0.13 H Imm/Tot Granulo (auto) 0.6 H PT 12.9 H INR 1.24 Sodium 139 Potassium 4.0 Chloride 106 Carbon Dioxide 25.4 Anion Gap 11.6 BUN 10.0 Creatinine 0.75 Est GFR ( Amer) >60 Est GFR (Non-Af Amer) >60 BUN/Creatinine Ratio 13.3 Glucose 132 H Calcium 9.0 Magnesium 2.0 Total Bilirubin 0.4 AST 23 ALT 25 Alkaline Phosphatase 50 Total Protein 6.2 L Albumin 2.4 L Globulin 3.8 Albumin/Globulin Ratio 0.6 Preliminary micro results at discharge 10/30/24 16:17 Blood Culture Result 2 - Preliminary Blood NO GROWTH AT 36-48 HOURS. FINAL TO FOLLOW. 10/30/24 16:11 Blood Culture Result 1 - Preliminary Blood NO GROWTH AT 36-48 HOURS. FINAL TO FOLLOW. Discharge Plan Discharge Disposition: Home, Self-Care Condition: Good Discharge Medications: New azithromycin 500 mg tablet 500 mg PO DAILY 2 Days Qty: 2 0RF Rx Instructions: start on day 2 of therapy prednisone 10 mg tablet 50 mg PO DAILY Qty: 47 0RF Rx Instructions: 5/day for 3 days. 4/day for 3 days, 3/day for 3 days, 2/day for 3 days, 1/day for 3 days, 1/2 /day for 4 days benzonatate 100 mg Capsule 200 mg PO Q8H PRN (Reason: Cough) Qty: 20 0RF warfarin 2 mg tablet 2 mg PO DAILY Qty: 30 11RF Continued amiodarone 200 mg tablet 200 mg PO Q24H lansoprazole 30 mg capsule,delayed release(DR/EC) 30 mg PO .ACB lurasidone 60 mg tablet 60 mg PO DAILY meclizine 25 mg tablet 25 mg PO BID PRN (Reason: dizziness) melatonin 5 mg tablet 5 mg PO DAILY metoprolol succinate 25 mg tablet extended release 24 hr 25 mg PO DAILY mexiletine 150 mg capsule 150 mg PO Q8H oxybutynin chloride 10 mg tablet extended release 24hr 10 mg PO DAILY ranolazine 500 mg tablet extended release 12 hr 500 mg PO Q12H rosuvastatin 10 mg tablet 10 mg PO DAILY warfarin 2.5 mg tablet 2.5 mg PO DAILY magnesium 200 mg tablet 200 mg PO BID quetiapine 100 mg tablet 100 mg PO .QHS lisinopril 5 mg tablet 5 mg PO .QD Activity: increase activity as tolerated Diet: advance to your usual diet Print Language: [place] Patient Instructions: Anemia (ED), Anemia (DC), Pneumonia (DC) Forms: Portal Instructions Follow Up Appointments: Schedule follow up appt with Dr Aden next week. [phone] Discharge Date/Time: 11/02/24 11:28
--- NOTE | 2024-11-03 14:19 | CM.DCFOLLOWU ---
Person spoke with: Latanya How are you feeling? Much better How is your pain? No pain Did you understand your discharge instructions? Yes Do you have any questions about your discharge instructions? No Were you given any prescriptions at discharge? No Were you able to get your prescriptions filled? N/A Do you understand how to take your medications as ordered? Yes Do you have any questions about your follow up appointment and do you plan to keep your follow up appointment? No its scheduled for Nov 08 Is there anything else that you would like to discuss? No Questions/Comments/Concerns/Other:
== END 2024-11-02 11:28 | disposition home or self-care (01) | DRG 871 ==
LOC: ER 16:36 → MS 17:39
PROVIDERS: Physician Assistant; Admitting Provider Family Medicine; Emergency Provider Emergency Medicine Emergency Medical Services; PCP Family Medicine; Visit Provider Family Medicine
DX: A41.9 Sepsis, unspecified organism (principal); J18.9 Pneumonia, unspecified organism; D68.9 Coagulation defect, unspecified; D62 Acute posthemorrhagic anemia; K92.2 Gastrointestinal hemorrhage, unspecified; E87.20 Acidosis, unspecified; R65.20 Severe sepsis without septic shock; D69.6 Thrombocytopenia, unspecified; E11.65 Type 2 diabetes mellitus with hyperglycemia; E78.00 Pure hypercholesterolemia, unspecified; E83.42 Hypomagnesemia; F31.9 Bipolar disorder, unspecified; G25.81 Restless legs syndrome; I10 Essential (primary) hypertension; I25.10 Atherosclerotic heart disease of native coronary artery without angina pectoris; K21.9 Gastro-esophageal reflux disease without esophagitis; N32.89 Other specified disorders of bladder; Z79.01 Long term (current) use of anticoagulants; Z79.899 Other long term (current) drug therapy; Z95.0 Presence of cardiac pacemaker
CPT/HCPCS: 36415; 36430; 71045; 71046; 80048; 80053; 82728; 83605; 83735; 83880; 84484; 85025; 85610; 85730; 86850; 86900; 86901; 86923; 87040; 87070; 87804; 87811; 93005; 94640; 94667; 94668; 94761; 96360; 96365; 96368; 96372; 97161; 97165; 97530; 99285; G0328; J0456; J0696; J2543; J2919; J3430; P9016

== ENCOUNTER 2024-11-05 15:56 | Emergency (ER) | payer MEDICARE, MEDICAID, SELFPAY ==
[2024-11-05 16:02] VITALS: BP 118/67; PULSE 79; TEMP 36.5; O2SAT 97; BMI 27.4
--- NOTE | 2024-11-05 16:29 | XR_ITS ---
[facility] [place] [id number] Patient Name: KING MORENO MRN: [id number] date: 1960 Sex: F Assigned Patient Location: ER Current Patient Location: ED.MAIN Accession/Order Number: [id number] Exam Date: 11/05/2024 18:00 Report Date: 11/05/2024 19:45 At the request of: JULIANNE MICHELLE Procedure: XR hip LT 2V w/ pelvis Exam: Radiographs: XR hip LT 2V w/ pelvis Reason for exam: fall, left hip pain Comparison: CT scan dated 2023 XR/XR hip LT 2V w/ pelvis IMPRESSION: Mild left hip degenerative change. Atherosclerotic calcifications. Remainder of the left hip radiographs is unremarkable. Electronically authenticated by: DION CHATMAN Date: 11/05/2024 19:45
[2024-11-05 17:02] VITALS: BP 131/77; PULSE 76; O2SAT 97
--- NOTE | 2024-11-05 17:02 | PC.NURSE ---
Pain to left hip, no redness or bruising, no shortening noted.
--- NOTE | 2024-11-05 19:31 | ED_ITS ---
HPI HPI - Fall General Chief Complaint: Fall Stated Complaint: FALL-HIP PAIN Time Seen by Provider: 11/05/24 17:41 Source: patient Mode of arrival: Wheelchair Limitations: language barrier History of Present Illness HPI Narrative: 63-year-old female presents to the emergency department for pain in her left hip area. 2 days ago she fell and landed on this hip. She did not sustain any oth er injury, did not hit her head. She is on Coumadin. She has had pain since then and it hurts more to walk on it. The pain is moderate to severe. Related Data Home Medications ?Medication ?Instructions ?Recorded ?Confirmed amiodarone 200 mg tablet 200 mg PO Q24H 10/22/24 10/30/24 lansoprazole 30 mg capsule,delayed 30 mg PO .ACB 10/22/24 10/31/24 release lurasidone 60 mg tablet 60 mg PO DAILY 10/22/24 10/30/24 meclizine 25 mg tablet 25 mg PO BID PRN dizziness 10/22/24 10/30/24 melatonin 5 mg tablet 5 mg PO DAILY 10/22/24 10/30/24 metoprolol succinate 25 mg 25 mg PO DAILY 10/22/24 10/30/24 tablet,extended release 24 hr mexiletine 150 mg capsule 150 mg PO Q8H 10/22/24 10/30/24 oxybutynin chloride 10 mg 10 mg PO DAILY 10/22/24 10/30/24 tablet,extended release 24 hr ranolazine 500 mg tablet,extended 500 mg PO Q12H 10/22/24 10/30/24 release,12 hr rosuvastatin 10 mg tablet 10 mg PO DAILY 10/22/24 10/30/24 warfarin 2.5 mg tablet 2.5 mg PO DAILY 10/22/24 10/30/24 magnesium 200 mg tablet 200 mg PO BID 10/30/24 10/30/24 lisinopril 5 mg tablet 5 mg PO .QD 10/31/24 10/31/24 quetiapine 100 mg tablet 100 mg PO .QHS 10/31/24 10/31/24 Previous Rx's ?Medication ?Instructions ?Recorded azithromycin 500 mg tablet 500 mg PO DAILY 2 days #2 tabs 11/02/24 benzonatate 100 mg capsule 200 mg (2 x 100 mg) PO Q8H PRN 11/02/24 Cough #20 caps prednisone 10 mg tablet 50 mg (5 x 10 mg) PO DAILY #47 tabs 11/02/24 warfarin 2 mg tablet 2 mg PO DAILY #30 tabs 11/02/24 acetaminophen 300 mg-codeine 30 mg 1 tab PO Q6H PRN pain 5 days #20 11/05/24 tablet tabs Allergies Allergy/AdvReac Type Severity Reaction Status Date / Time No Known Drug Allergies Allergy Verified 11/05/24 16:02 Opioid HPI Opioid Management Most Recent Pain and Opioid Data: Last Pain Scale 0 10/31/24 18:49 10/31/24 Last Pain Intensity 0 10/31/24 09:34 10/31/24 Last Pain Assessment 11/02/24 11:14 Last ORT Total Score 8 10/30/24 17:53 10/30/24 Last ORT Risk Category High Risk 10/30/24 17:53 10/30/24 Review of Systems ROS Narrative A ten point review of systems is negative except as noted above. [facility] Pacemaker ?Z95.0 - Presence of cardiac pacemaker (ICD-10) Diabetes ?E11.9 - Type 2 diabetes mellitus without complications (ICD-10) Bipolar 1 disorder, depressed ?F31.9 - Bipolar disorder, unspecified (ICD-10) HTN (hypertension) ?I10 - Essential (primary) hypertension (ICD-10) High cholesterol ?E78.00 - Pure hypercholesterolemia, unspecified (ICD-10) Afib ?I48.91 - Unspecified atrial fibrillation (ICD-10) Surgical History (Updated 10/30/24 @ 18:16 by Franchesca Dumas RN) History of bowel resection ?Z90.49 - Acquired absence of other specified parts of digestive tract (ICD- 10) Family History (Updated 10/30/24 @ 18:15 by Franchesca Dumas RN) Father Heart attack Brother Heart attack Sister Heart attack Diabetes Son Diabetes Social History (Updated 10/30/24 @ 18:17 by Franchesca Dumas RN) Within the past year, how often did you have a drink containing alcohol: never Within the past year, how often did you have six or more drinks on one occasion: never Score interpretation: A score less than 3 is consistent with normal alcohol consumption. 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 General: The patient appears well and in no apparent distress. Patient is resting comfortably on cart. Skin: Warm, dry, no pallor noted. There is no rash noted. Head: Normocephalic, atraumatic Eye: Normal conjunctiva, no drainage Ears, Nose, Mouth, and Throat: oral mucosa is moist. Nares patent. Cardiovascular: Not tachycardic Respiratory: Patient is in no distress, no accessory muscle use, lungs are clear to auscultation, no wheezing, rales or rhonchi Back: non-tender GI: Soft and nontender Musculoskeletal: She has purple-colored bruising on the left hip posteriorly going into the buttock area. Skin intact. Hip has full range of motion both actively and passively Neurological: A&O normal speech Psychiatric: Cooperative Constitutional Vital Signs, click to edit/add: Last Vital Signs Temp 97.7 F 11/05/24 16:02 Pulse 76 11/05/24 17:02 Resp 20 11/05/24 17:02 BP 131/77 11/05/24 17:02 Pulse Ox 97 11/05/24 17:02 O2 Del Method Room Air 11/05/24 17:02 Course Vital Signs Vital signs: Vital Signs Temperature 97.7 F 11/05/24 16:02 Pulse Rate 79 11/05/24 16:02 Respiratory Rate 16 11/05/24 16:02 Blood Pressure 118/67 11/05/24 16:02 Pulse Oximetry 97 11/05/24 16:02 Oxygen Delivery Method Room Air 11/05/24 16:02 Temperature 97.7 F 11/05/24 16:02 Pulse Rate 76 11/05/24 17:02 Respiratory Rate 20 11/05/24 17:02 Blood Pressure 131/77 11/05/24 17:02 Pulse Oximetry 97 11/05/24 17:02 Oxygen Delivery Method Room Air 11/05/24 17:02 MDM - Fall MDM Narrative Medical decision making narrative: My clinical impression is that she has a contusion. She is on Coumadin so we will avoid anti-inflammatories. She was prescribed Tylenol 3 and given a dose here. Treatment diagnosis and follow-up were discussed with the patient. Differential Diagnosis Differential diagnosis: Likely other (Fracture, contusion) Imaging Data Left hip: My impression: No acute findings Discharge Plan Discharge Chief Complaint: Fall Clinical Impression: Contusion of left hip Patient Disposition: Home, Self-Care Time of Disposition Decision: 19:29 Condition: Good Mode of Transportation: Private Vehicle Prescriptions / Home Meds: New acetaminophen-codeine 300-30 mg tablet 1 tab PO Q6H PRN (Reason: pain) 5 Days Qty: 20 0RF No Action amiodarone 200 mg tablet 200 mg PO Q24H lansoprazole 30 mg capsule,delayed release(DR/EC) 30 mg PO .ACB lurasidone 60 mg tablet 60 mg PO DAILY meclizine 25 mg tablet 25 mg PO BID PRN (Reason: dizziness) melatonin 5 mg tablet 5 mg PO DAILY metoprolol succinate 25 mg tablet extended release 24 hr 25 mg PO DAILY mexiletine 150 mg capsule 150 mg PO Q8H oxybutynin chloride 10 mg tablet extended release 24hr 10 mg PO DAILY ranolazine 500 mg tablet extended release 12 hr 500 mg PO Q12H rosuvastatin 10 mg tablet 10 mg PO DAILY warfarin 2.5 mg tablet 2.5 mg PO DAILY magnesium 200 mg tablet 200 mg PO BID quetiapine 100 mg tablet 100 mg PO .QHS lisinopril 5 mg tablet 5 mg PO .QD azithromycin 500 mg tablet 500 mg PO DAILY 2 Days Qty: 2 0RF Rx Instructions: start on day 2 of therapy prednisone 10 mg tablet 50 mg PO DAILY Qty: 47 0RF Rx Instructions: 5/day for 3 days. 4/day for 3 days, 3/day for 3 days, 2/day for 3 days, 1/day for 3 days, 1/2 /day for 4 days benzonatate 100 mg Capsule 200 mg PO Q8H PRN (Reason: Cough) Qty: 20 0RF warfarin 2 mg tablet 2 mg PO DAILY Qty: 30 11RF Print Language: Marshallese Instructions: Hip Contusion (ED) Referrals: Conchita Aden MD [Primary Care Provider] - 1 week
[2024-11-05] MEDS: ACETAMINOPHEN 300 MG/ 30 MG CODEINE TABLET 1 TAB PO (19:56)
== END 2024-11-05 20:00 | disposition home or self-care (01) ==
PROVIDERS: Emergency Provider Emergency Medicine; PCP Family Medicine
DX: S70.02XA Contusion of left hip, initial encounter (principal); W19.XXXA Unspecified fall, initial encounter; Z79.01 Long term (current) use of anticoagulants; Z95.0 Presence of cardiac pacemaker; Z90.49 Acquired absence of other specified parts of digestive tract
CPT/HCPCS: 73502; 99283

== ENCOUNTER 2024-11-07 11:34 | Outpatient (OUT) | payer MEDICARE, MEDICAID, SELFPAY ==
[2024-11-07 13:35] LABS: Lactate Dehydrogenase 249 U/L (81-234)
[2024-11-08 08:08] LABS: AFP, Serum, Tumor Marker 5.3 ng/mL (0.0-9.2); CEA 2.6 ng/mL (0.0-4.7); Cancer Antigen (CA) 125 13.5 U/mL (0.0-38.1); HCG Tumor Marker 2 mIU/mL (.)
== END 2024-11-07 11:35 | disposition home or self-care (01) ==
LOC: LAB 11:36
PROVIDERS: PCP Family Medicine; Visit Provider Obstetrics & Gynecology
DX: N83.8 Other noninflammatory disorders of ovary, fallopian tube and broad ligament (principal); N83.299 Other ovarian cyst, unspecified side
CPT/HCPCS: 36415; 82105; 82378; 83615; 84702; 86304

== ENCOUNTER 2024-11-10 14:14 | Outpatient (OUT) | payer MEDICARE, MEDICAID, SELFPAY ==
[2024-11-10 14:47] LABS: Basophils Percent Auto 0.1 % (0.2-2.0); Eosinophils Absolute Auto 0.3 10^3/uL (0.0-0.7); Eosinophils Percent Auto 1.8 % (0.9-7.0); Hematocrit 33.5 % (36.0-48.0); Hemoglobin 10.6 g/dL (12.0-16.0); Immature Granulocytes Abs Auto 0.12 10^3/uL (0.00-0.03); Immature Granulocytes Pct Auto 0.7 % (0.0-0.5); Lymphocytes Absolute Auto 4.9 10^3/uL (1.2-3.8); Lymphocytes Percent Auto 28.8 % (20.5-60.0); Mean Corpuscular HGB Conc 31.6 g/dL (29.9-35.2); Mean Corpuscular Hemoglobin 28.9 pg (26.7-34.0); Mean Corpuscular Volume 91.3 fL (81.0-99.0); Mean Platelet Volume 9.9 fL (9.5-13.5); Monocytes Absolute Auto 1.1 10^3/uL (0.3-0.8); Monocytes Percent Auto 6.4 % (1.7-12.0); Neutrophils Absolute Auto 10.6 10^3/uL (1.4-6.5); Neutrophils Percent Auto 62.2 % (43.0-75.0); Platelet Count 548 10^3/uL (150-450); Red Blood Count 3.67 10^6/uL (4.20-5.40); Red Cell Distribution Width 16.8 % (11.0-15.0)
== END 2024-11-10 14:15 | disposition home or self-care (01) ==
LOC: LAB 14:15
PROVIDERS: PCP Family Medicine; Visit Provider Nurse Practitioner Family
DX: D64.9 Anemia, unspecified (principal); Z87.19 Personal history of other diseases of the digestive system; I48.91 Unspecified atrial fibrillation
CPT/HCPCS: 36415; 85025; 85610; G0463

== ENCOUNTER 2025-01-08 15:09 | Emergency (ER) | payer MEDICARE, MEDICAID, SELFPAY ==
[2025-01-08] VITALS (28 sets, daily range): BP systolic 68–98; BP diastolic 41–64; PULSE 75–96; TEMP 36.6; O2SAT 71–100; BMI 22.9
--- NOTE | 2025-01-08 15:13 | ECG_ITS ---
[facility] Test Date: 2025-01-08 Pat Name: KING MORENO Department: Room: - Gender: Female Educational Assistant Teacher: : 1960 Requested By: [id number] Order Number: [id number] Reading MD: CROW MORRISON M.D. Measurements Intervals [place] Rate: 94 P: 57 MN: 134 QRS: 55 QRSD: 92 T: 222 QT: 332 QTc: 384 Interpretive Statements 1100 Sinus rhythm [address] depression [address] & Twave abnormality 9130 borderline ECG Compared to ECG 10/30/2024 15:00:51 No significant changes Electronically Signed On 01-08-2025 16:06:09 EDT by CROW MORRISON M.D.
--- NOTE | 2025-01-08 15:17 | ED_ITS ---
HPI - SOB/Dyspnea General Chief Complaint: Shortness of Breath/Dyspnea Stated Complaint: SOB Time Seen by Provider: 01/08/25 15:12 Source: patient Mode of arrival: ambulance History of Present Illness HPI Narrative: Patient is a 64-year-old female who presents to the emergency department by EMS for evaluation of hypotension, shortness of breath and not feeling well. She has an AICD that was implanted about 1 year ago. She states the defibrillator fired about a year ago but she has not had any episodes of firing since that time. She believes she had a heart attack which prompted the AICD placement. She does not wear home oxygen. She denies chest pain. She has had no recent illness in the last several days. She called 911 because her defibrillator fired twice. EMS reports an initial blood pressure of 50/30. They placed an IV but did not start any fluids or other medications. We did not receive an EMS report prior to this patient's arrival. Related Data Home Medications ?Medication ?Instructions ?Recorded ?Confirmed amiodarone 200 mg tablet 200 mg PO Q24H 10/22/24 10/30/24 lansoprazole 30 mg capsule,delayed 30 mg PO .ACB 10/22/24 10/31/24 release lurasidone 60 mg tablet 60 mg PO DAILY 10/22/24 10/30/24 meclizine 25 mg tablet 25 mg PO BID PRN dizziness 10/22/24 10/30/24 melatonin 5 mg tablet 5 mg PO DAILY 10/22/24 10/30/24 metoprolol succinate 25 mg 25 mg PO DAILY 10/22/24 10/30/24 tablet,extended release 24 hr mexiletine 150 mg capsule 150 mg PO Q8H 10/22/24 10/30/24 oxybutynin chloride 10 mg 10 mg PO DAILY 10/22/24 10/30/24 tablet,extended release 24 hr ranolazine 500 mg tablet,extended 500 mg PO Q12H 10/22/24 10/30/24 release,12 hr rosuvastatin 10 mg tablet 10 mg PO DAILY 10/22/24 10/30/24 warfarin 2.5 mg tablet 2.5 mg PO DAILY 10/22/24 10/30/24 magnesium 200 mg tablet 200 mg PO BID 10/30/24 10/30/24 lisinopril 5 mg tablet 5 mg PO .QD 10/31/24 10/31/24 quetiapine 100 mg tablet 100 mg PO .QHS 10/31/24 10/31/24 Previous Rx's ?Medication ?Instructions ?Recorded azithromycin 500 mg tablet 500 mg PO DAILY 2 days #2 tabs 11/02/24 benzonatate 100 mg capsule 200 mg (2 x 100 mg) PO Q8H PRN 11/02/24 Cough #20 caps prednisone 10 mg tablet 50 mg (5 x 10 mg) PO DAILY #47 tabs 11/02/24 warfarin 2 mg tablet 2 mg PO DAILY #30 tabs 11/02/24 acetaminophen 300 mg-codeine 30 mg 1 tab PO Q6H PRN pain 5 days #20 11/05/24 tablet tabs Allergies Allergy/AdvReac Type Severity Reaction Status Date / Time No Known Drug Allergies Allergy Verified 11/05/24 16:02 [facility] Medical History Pacemaker ?Z95.0 - Presence of cardiac pacemaker (ICD-10) Diabetes ?E11.9 - Type 2 diabetes mellitus without complications (ICD-10) Bipolar 1 disorder, depressed ?F31.9 - Bipolar disorder, unspecified (ICD-10) HTN (hypertension) ?I10 - Essential (primary) hypertension (ICD-10) High cholesterol ?E78.00 - Pure hypercholesterolemia, unspecified (ICD-10) Afib ?I48.91 - Unspecified atrial fibrillation (ICD-10) Surgical History (Updated 10/30/24 @ 18:16 by Franchesca Dumas RN) History of bowel resection ?Z90.49 - Acquired absence of other specified parts of digestive tract (ICD- 10) Family History (Updated 10/30/24 @ 18:15 by Franchesca Dumas RN) Father Heart attack Brother Heart attack Sister Heart attack Diabetes Son Diabetes Social History (Updated 10/30/24 @ 18:17 by Franchesca Dumas RN) Within the past year, how often did you have a drink containing alcohol: never Within the past year, how often did you have six or more drinks on one occasion: never Score interpretation: A score less than 3 is consistent with normal alcohol consumption. 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 Known occupational exposures/hazards: No Highest level of school completed/degree received: GED or equivalent Little interest or pleasure in doing things: not at all Feeling down, depressed, or hopeless: not at all Exam Narrative Exam Narrative: Gen.: Awake, alert, pale, diaphoretic and tachypneic Head: Normocephalic, atraumatic ENT: Moist mucous membranes Respiratory: No respiratory distress, tachypnea with no rhonchi or wheezing Cardio: Regular rate and rhythm, defibrillator to the right upper chest palpable Gastrointestinal: Abdomen is soft, nondistended and nontender to palpation Extremities: Moves extremities equally, no pedal edema Psych: Normal mood and affect Neuro: No focal neuro deficit Skin: Warm, dry, intact Constitutional Vital Signs, click to edit/add: Last Vital Signs Temp 97.9 F 01/08/25 15:12 Pulse 79 01/08/25 16:20 Resp 29 H 01/08/25 16:20 BP 78/45 L 01/08/25 16:15 Pulse Ox 100 01/08/25 16:20 O2 Del Method Nasal Cannula 01/08/25 15:52 O2 Flow Rate 2 01/08/25 15:52 Course Vital Signs Vital signs: Vital Signs Temperature 97.9 F 01/08/25 15:12 Pulse Rate 96 H 01/08/25 15:12 Respiratory Rate 36 H 01/08/25 15:12 Blood Pressure 68/55 L 01/08/25 15:12 Pulse Oximetry 91 L 01/08/25 15:12 Oxygen Delivery Method Room Air 01/08/25 15:12 Temperature 97.9 F 01/08/25 15:12 Pulse Rate 79 01/08/25 16:20 Respiratory Rate 29 H 01/08/25 16:20 Blood Pressure 78/45 L 01/08/25 16:15 Pulse Oximetry 100 01/08/25 16:20 Oxygen Delivery Method Nasal Cannula 01/08/25 15:52 Oxygen Delivery Flow Rate 2 01/08/25 15:52 MDM - SOB/Dyspnea MDM Narrative Medical decision making narrative: Patient states her consultant in ergonomics and safety is at [facility]. She was noted to be hypotensive and hypoxic on room air at arrival. Oxygen by nasal cannula was initiated with IV fluids. Laboratory studies with stat chest x-ray and EKG were obtained. 1648: Patient was given 1 L of IV fluids with some improvement of blood pressure to 80/50. Laboratory studies reviewed and noted showing minimally elevated lactic acid, minimally elevated BNP. Troponin initially is normal. While in the emergency department, patient did have a run of tachycardic rhythm at a rate of 150 that lasted several seconds. She did not have a defibrillator firing during this episode. Her magnesium level was noted to be slightly low so she was bolused with magnesium sulfate, 2 g. She also received a dose of amiodarone as a precaution. Blood pressure remains persistently low, discussed the case with Dr. Chappell for ICU at [facility] where the patient receives her cardiac care. Discussed pressors, patient started on Levophed at 8 mics per minute. Due to persistent hypotension and pressors, patient needs emergent transport and will be sent by [email or web address]. Critical care time 35 minutes. SHARED APC VISIT, PHYSICIAN ATTESTATION: [id number] I performed a substantive part of the MDM during the patient?s E/M visit. I personally evaluated and examined the patient. I personally made or approved the documented management plan and acknowledge its risk of complications. Medical Records Attestation: I reviewed the patient's medical records. Lab Data Attestation: I reviewed the patient's lab results. Labs: Lab Results 01/08/25 01/08/25 Range/Units 15:21 15:48 WBC 11.9 H (4.0-11.0) 10^3/uL RBC 4.25 (4.20-5.40) 10^6/uL Hgb 10.8 L (12.0-16.0) g/dL Hct 32.4 L (36.0-48.0) % MCV 76.2 L (81.0-99.0) fL MCH 25.4 L (26.7-34.0) pg MCHC 33.3 (29.9-35.2) g/dL RDW 16.7 H (11.0-15.0) % Plt Count 202 (150-450) 10^3/uL MPV 10.4 (9.5-13.5) fL Neut % (Auto) 81.4 H (43.0-75.0) % Lymph % (Auto) 12.5 L (20.5-60.0) % Merrick % (Auto) 5.4 (1.7-12.0) % Eos % (Auto) 0.3 L (0.9-7.0) % Baso % (Auto) 0.1 L (0.2-2.0) % Neut # (Auto) 9.7 H (1.4-6.5) 10^3/uL Lymph # (Auto) 1.5 (1.2-3.8) 10^3/uL Merrick # (Auto) 0.6 (0.3-0.8) 10^3/uL Eos # (Auto) 0.0 (0.0-0.7) 10^3/uL Baso # (Auto) 0.0 (0.0-0.1) 10^3/uL Abs Immat Gran (auto) 0.04 H (0.00-0.03) 10^3/uL Imm/Tot Granulo (auto) 0.3 (0.0-0.5) % PT 10.3 (9.0-11.6) sec INR 0.97 VBG pH 7.388 (7.330-7.430) VBG pCO2 37.9 L (40.0-52.0) mmHg Sodium 129 L (136-145) mmol/L Potassium 3.3 L (3.5-5.1) mmol/L Chloride 94 L (98-107) mmol/L Carbon Dioxide 23.6 (21.0-32.0) mmol/L Anion Gap 14.7 BUN 12.0 (7.0-18.0) mg/dL Creatinine 0.83 (0.55-1.02) mg/dL Est GFR ( Amer) >60 (>=60 mL/min/1.73m^2) Est GFR (Non-Af Amer) >60 (>=60 mL/min/1.73m^2) BUN/Creatinine Ratio 14.5 Glucose 140 H (74-106) mg/dL Lactate 2.3 H* (0.4-2.0) mmol/L Calcium 8.8 (8.5-10.1) mg/dL Magnesium 1.4 L (1.8-2.4) mg/dL Total Bilirubin 0.2 (0.2-1.0) mg/dL AST 52 H (15-37) U/L ALT 28 (14-59) U/L Alkaline Phosphatase 46 (46-116) U/L Troponin I High Sens 37.0 (4.0-51.3) pg/mL NT-Pro-B Natriuret Pep 2641.0 H* (<=900.0) pg/mL Total Protein 6.4 (6.4-8.2) g/dL Albumin 2.5 L (3.4-5.0) g/dL Globulin 3.9 g/dL Albumin/Globulin Ratio 0.6 Imaging Data Chest x-ray: Attestation: I have reviewed the pertinent imaging results. ECG Data Attestation: I personally reviewed and interpreted this ECG as follows: (Normal sinus rhythm at a rate of 94, minimal ST depression with no acute ST elevation or ectopy. EKG reviewed by attending physician.) Critical Care Time Critical Care Time Critical Care Time: Yes Total Critical Care Time: 35 Attestation: 35 minutes of critical care time assessed for fluid resuscitation, use of pre ssors and transfer to tertiary care Discharge Plan Discharge Chief Complaint: Shortness of Breath/Dyspnea Clinical Impression: Defibrillator discharge, Acute hypotension, Shortness of breath Patient Disposition: [facility] Time of Disposition Decision: 16:55 Discharge location: [facility] ICU Condition: Serious Mode of Transportation: [employer] Prescriptions / Home Meds: No Action amiodarone 200 mg tablet 200 mg PO Q24H lansoprazole 30 mg capsule,delayed release(DR/EC) 30 mg PO .ACB lurasidone 60 mg tablet 60 mg PO DAILY meclizine 25 mg tablet 25 mg PO BID PRN (Reason: dizziness) melatonin 5 mg tablet 5 mg PO DAILY metoprolol succinate 25 mg tablet extended release 24 hr 25 mg PO DAILY mexiletine 150 mg capsule 150 mg PO Q8H oxybutynin chloride 10 mg tablet extended release 24hr 10 mg PO DAILY ranolazine 500 mg tablet extended release 12 hr 500 mg PO Q12H rosuvastatin 10 mg tablet 10 mg PO DAILY warfarin 2.5 mg tablet 2.5 mg PO DAILY magnesium 200 mg tablet 200 mg PO BID quetiapine 100 mg tablet 100 mg PO .QHS lisinopril 5 mg tablet 5 mg PO .QD azithromycin 500 mg tablet 500 mg PO DAILY 2 Days Qty: 2 0RF Rx Instructions: start on day 2 of therapy prednisone 10 mg tablet 50 mg PO DAILY Qty: 47 0RF Rx Instructions: 5/day for 3 days. 4/day for 3 days, 3/day for 3 days, 2/day for 3 days, 1/day for 3 days, 1/2 /day for 4 days benzonatate 100 mg Capsule 200 mg PO Q8H PRN (Reason: Cough) Qty: 20 0RF warfarin 2 mg tablet 2 mg PO DAILY Qty: 30 11RF acetaminophen-codeine 300-30 mg tablet 1 tab PO Q6H PRN (Reason: pain) 5 Days Qty: 20 0RF Print Language: Kittitian Referrals: JOVANI HANSON [Primary Care Provider] - 1 week
[2025-01-08] MEDS: 0.9 % SODIUM CHLORIDE 1,000 ML 1000 ML IV (15:27)
[2025-01-08 15:30] LABS: Basophils Percent Auto 0.1 % (0.2-2.0); Eosinophils Percent Auto 0.3 % (0.9-7.0); Hematocrit 32.4 % (36.0-48.0); Hemoglobin 10.8 g/dL (12.0-16.0); Immature Granulocytes Abs Auto 0.04 10^3/uL (0.00-0.03); Immature Granulocytes Pct Auto 0.3 % (0.0-0.5); Lymphocytes Absolute Auto 1.5 10^3/uL (1.2-3.8); Lymphocytes Percent Auto 12.5 % (20.5-60.0); Mean Corpuscular HGB Conc 33.3 g/dL (29.9-35.2); Mean Corpuscular Hemoglobin 25.4 pg (26.7-34.0); Mean Corpuscular Volume 76.2 fL (81.0-99.0); Mean Platelet Volume 10.4 fL (9.5-13.5); Monocytes Absolute Auto 0.6 10^3/uL (0.3-0.8); Monocytes Percent Auto 5.4 % (1.7-12.0); Neutrophils Absolute Auto 9.7 10^3/uL (1.4-6.5); Neutrophils Percent Auto 81.4 % (43.0-75.0); Platelet Count 202 10^3/uL (150-450); Red Blood Count 4.25 10^6/uL (4.20-5.40); Red Cell Distribution Width 16.7 % (11.0-15.0); White Blood Count 11.9 10^3/uL (4.0-11.0)
[2025-01-08 15:44] LABS: INR 0.97; Prothrombin Time 10.3 sec (9.0-11.6)
[2025-01-08 15:53] LABS: PCO2 VBG 37.9 mmHg (40.0-52.0); pH VBG 7.388 (7.330-7.430)
[2025-01-08 15:55] LABS: Alanine Aminotransferase 28 U/L (14-59); Albumin Globulin Ratio 0.6; Albumin Level 2.5 g/dL (3.4-5.0); Alkaline Phosphatase 46 U/L (46-116); Anion Gap 14.7; Aspartate Amino Transferase 52 U/L (15-37); BUN Creatinine Ratio 14.5; Bilirubin Total 0.2 mg/dL (0.2-1.0); Calcium 8.8 mg/dL (8.5-10.1); Carbon Dioxide 23.6 mmol/L (21.0-32.0); Chloride 94 mmol/L (98-107); Estimated GFR (African America >60 (>=60 mL/min/1.73m^2); Estimated GFR (Non-African Ame >60 (>=60 mL/min/1.73m^2); Globulin 3.9 g/dL; Glucose 140 mg/dL (74-106); Magnesium 1.4 mg/dL (1.8-2.4); Potassium 3.3 mmol/L (3.5-5.1); Sodium 129 mmol/L (136-145); Total Protein 6.4 g/dL (6.4-8.2)
[2025-01-08 15:57] LABS: Lactate/Lactic Acid 2.3 mmol/L (0.4-2.0)
[2025-01-08] MEDS: MAGNESIUM SULFATE IN WATER 2 GM/50 ML PREMIX IV (16:10)
[2025-01-08] MEDS: AMIODARONE IN DEXTROSE,ISO-OSM 150 MG/100 ML PIGGYBACK 600 MG IV (16:36)
[2025-01-08] MEDS: NOREPINEPHRINE BITARTRATE/D5W 4 MG/250 ML PREMIX 30 MG IV (16:59)
[2025-01-08 17:08] LABS: Glucometer 143 mg/dL (74-106)
[2025-01-08 17:37] LABS: Troponin I High Sensitivity 36.2 pg/mL (4.0-51.3)
[2025-01-09 13:07] LABS: A. calcoaceticus-baumannii Cpx NOT DETECTED (NOT DETECTE); Bacteroides fragilis NOT DETECTED (NOT DETECTE); Candida albicans NOT DETECTED (NOT DETECTE); Candida auris NOT DETECTED (NOT DETECTE); Candida glabrata NOT DETECTED (NOT DETECTE); Candida krusei NOT DETECTED (NOT DETECTE); Candida parapsilosis NOT DETECTED (NOT DETECTE); Candida tropicalis NOT DETECTED (NOT DETECTE); Enterobacter cloacae complex NOT DETECTED (NOT DETECTE); Enterobacterales NOT DETECTED (NOT DETECTE); Enterococcus faecalis NOT DETECTED (NOT DETECTE); Enterococcus faecium NOT DETECTED (NOT DETECTE); Haemophilus influenzae NOT DETECTED (NOT DETECTE); Klebsiella aerogenes NOT DETECTED (NOT DETECTE); Klebsiella pneumoniae group NOT DETECTED (NOT DETECTE); Listeria monocytogenes NOT DETECTED (NOT DETECTE); Neisseria meningitidis NOT DETECTED (NOT DETECTE); Proteus spp. NOT DETECTED (NOT DETECTE); Pseudomonas aeruginosa NOT DETECTED (NOT DETECTE); Salmonella spp. NOT DETECTED (NOT DETECTE); Serratia marcescens NOT DETECTED (NOT DETECTE); Staphylococcus lugdunensis NOT DETECTED (NOT DETECTE); Stenotrophomonas maltophilia NOT DETECTED (NOT DETECTE); Streptococcus agalactiae NOT DETECTED (NOT DETECTE); Streptococcus pneumoniae NOT DETECTED (NOT DETECTE); Streptococcus pyogenes NOT DETECTED (NOT DETECTE); Streptococcus spp. NOT DETECTED (NOT DETECTE)
[2025-01-09 13:08] LABS: Cryptococcus neoformans/gattii NOT DETECTED (NOT DETECTE)
[2025-01-09 14:33] LABS: mecA/C NOT DETECTED (NOT DETECTE); mecA/C and MREJ (MRSA) NOT DETECTED (NOT DETECTE)
[2025-01-09 14:34] LABS: Source BLOOD
[2025-01-09 14:36] LABS: Staphylococcus epidermidis DETECTED (NOT DETECTE); Staphylococcus spp. DETECTED (NOT DETECTE)
--- NOTE | 2025-01-10 10:37 | PC.NURSE ---
Pt still at , blood culture results faxed to after speaking to PAULA Howell at #[phone] on 01/10/25 at 1020am. Arsalan
== END 2025-01-08 18:26 | disposition short-term general hospital (02) ==
PROVIDERS: Physician Assistant; Emergency Provider Emergency Medicine; PCP Nurse Practitioner Family
DX: I95.9 Hypotension, unspecified (principal); R06.02 Shortness of breath; Z95.810 Presence of automatic (implantable) cardiac defibrillator; E11.9 Type 2 diabetes mellitus without complications
CPT/HCPCS: 36415; 36600; 71045; 80053; 82800; 82805; 82948; 83605; 83735; 83880; 84484; 85025; 85610; 87040; 87150; 93005; 96361; 96365; 96367; 96375; 99285; J0283; J3475

== ENCOUNTER 2025-01-23 13:41 | Outpatient (OUT) | payer MEDICARE, MEDICAID, SELFPAY ==
--- NOTE | 2025-01-23 15:37 | P.CN_ITS ---
Consult Note: HPI Data of Consult Patient: new to practice Consult date: 01/23/25 Requesting Physician: Amish Amador MD Primary Care Provider: JOVANI HANSON Consult Narrative Reason for consult: low back pain, left leg numbness Narrative: 64yof who presents for evaluation. notes longstanding low back pain after fall last winter with resulting numbness down left leg. evaluated by ortho for left hip pain, but found to have no acute pathology. has continued in a series of provider directed home exercises >6 weeks, without lasting benefit. uses otc pain meds and has tried gabapentin and lyrica. did not tolerate lyrica well. cc:: CC: Amish Amador MD Review of Systems ROS Status of ROS 10 or more systems reviewed and unremark able except as noted in history and below PFSH PFS Medical History Pacemaker ?Z95.0 - Presence of cardiac pacemaker (ICD-10) Acute GI bleeding ?K92.2 - Gastrointestinal hemorrhage, unspecified (ICD-10) Elevated INR ?R79.1 - Abnormal coagulation profile (ICD-10) Pneumonia ?J18.9 - Pneumonia, unspecified organism (ICD-10) Dyspnea ?R06.00 - Dyspnea, unspecified (ICD-10) Dizziness ?R42 - Dizziness and giddiness (ICD-10) Diabetes ?E11.9 - Type 2 diabetes mellitus without complications (ICD-10) Bipolar 1 disorder, depressed ?F31.9 - Bipolar disorder, unspecified (ICD-10) HTN (hypertension) ?I10 - Essential (primary) hypertension (ICD-10) High cholesterol ?E78.00 - Pure hypercholesterolemia, unspecified (ICD-10) Afib ?I48.91 - Unspecified atrial fibrillation (ICD-10) Surgical History History of bowel resection ?Z90.49 - Acquired absence of other specified parts of digestive tract (ICD- 10) Family History Father Heart attack Brother Heart attack Sister Heart attack Diabetes Son Diabetes Social History Within the past year, how often did you have a drink containing alcohol: never Within the past year, how often did you have six or more drinks on one occasion: never Score interpretation: A score less than 3 is consistent with normal alcohol consumption. 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 Known occupational exposures/hazards: No Highest level of school completed/degree received: GED or equivalent Little interest or pleasure in doing things: not at all Feeling down, depressed, or hopeless: not at all Meds Home Medications and Allergies Home Medications ?Medication ?Instructions ?Recorded ?Confirmed ?Type amiodarone 200 mg tablet 200 mg PO Q24H 10/22/24 10/30/24 History lansoprazole 30 mg capsule,delayed 30 mg PO .ACB 10/22/24 10/31/24 History release lurasidone 60 mg tablet 60 mg PO DAILY 10/22/24 10/30/24 History meclizine 25 mg tablet 25 mg PO BID PRN dizziness 10/22/24 10/30/24 History melatonin 5 mg tablet 5 mg PO DAILY 10/22/24 10/30/24 History metoprolol succinate 25 mg 25 mg PO DAILY 10/22/24 10/30/24 History tablet,extended release 24 hr mexiletine 150 mg capsule 150 mg PO Q8H 10/22/24 10/30/24 History oxybutynin chloride 10 mg 10 mg PO DAILY 10/22/24 10/30/24 History tablet,extended release 24 hr ranolazine 500 mg tablet,extended 500 mg PO Q12H 10/22/24 10/30/24 History release,12 hr rosuvastatin 10 mg tablet 10 mg PO DAILY 10/22/24 10/30/24 History warfarin 2.5 mg tablet 2.5 mg PO DAILY 10/22/24 10/30/24 History magnesium 200 mg tablet 200 mg PO BID 10/30/24 10/30/24 History lisinopril 5 mg tablet 5 mg PO .QD 10/31/24 10/31/24 History quetiapine 100 mg tablet 100 mg PO .QHS 10/31/24 10/31/24 History azithromycin 500 mg tablet 500 mg PO DAILY 2 days #2 tabs 11/02/24 Rx benzonatate 100 mg capsule 200 mg (2 x 100 mg) PO Q8H PRN 11/02/24 Rx Cough #20 caps prednisone 10 mg tablet 50 mg (5 x 10 mg) PO DAILY #47 tabs 11/02/24 Rx warfarin 2 mg tablet 2 mg PO DAILY #30 tabs 11/02/24 Rx acetaminophen 300 mg-codeine 30 mg 1 tab PO Q6H PRN pain 5 days #20 11/05/24 Rx tablet tabs Allergies Allergy/AdvReac Type Severity Reaction Status Date / Time No Known Drug Allergies Allergy Verified 11/05/24 16:02 Exam Narrative Exam Narrative: Psych-alert and oriented x 3. Attentive and appropriate, constitutionally normal, displays normal mood and affect per situation. There are no obvious deficits in memory, reasoning, or intellect.? Skin-no obvious rashes, bruising, erythema noted to the patient's area of pain.? Extremities- extremities are warm with minimal edema and palpable pulses. Lumbar-tenderness to palpation noted in the lumbar spine and paraspinal musculature. Pain is not elicited with flexion, extension, and lateral rotation of the lumbar spine. Range of motion is diminished with these motions. Facet loading maneuvers are positive.? Strength-noted to be unremarkable with the exception of decreased strength rated at 4 out of 5 in left quadriceps femoris, anterior tibialis. Sensory-no notable sensory deficits in the bilateral lower extremities to touch or pinprick in all dermatomal distributions with the exception to decreased sensation to the left L3, 4, 5 dermatomal distribution Coordination remains intact.? Gait remains non-antalgic. Assessment and Plan Assessment and Plan (1) Lumbar stenosis with neurogenic claudication: Plan 64yof who presents for evaluation. failed conservative measures, as noted. ortho notes and imaging reviewed. given symptoms and exam, prudent to obtain lumbar mri without contrast for further assessment. she is in agreement. meds reviewed, will try gabapentin 300mg tid. follow up after imaging.
== END 2025-01-23 13:42 | disposition home or self-care (01) ==
LOC: PM 13:42
PROVIDERS: PCP Nurse Practitioner Family; Visit Provider Anesthesiology
DX: M48.062 Spinal stenosis, lumbar region with neurogenic claudication (principal)
CPT/HCPCS: G0463

== ENCOUNTER 2025-01-26 13:02 | Outpatient (OUT) | payer MEDICARE, MEDICAID, SELFPAY ==
--- NOTE | 2025-01-26 13:08 | CT_ITS ---
[facility] [place] [id number] Patient Name: KING MORENO MRN: [id number] date: 1960 Sex: F Assigned Patient Location: CT Current Patient Location: CT Accession/Order Number: [id number] Exam Date: 01/26/2025 14:35 Report Date: 01/26/2025 14:37 At the request of: AVERY ROBLES MD Procedure: CT lumbar spine wo con CT lumbar spine wo con 01/26/2025 1:15 PM History:Chronic low back pain radiating to left with numbness and tingling after fall 3 months ago. TECHNIQUE: Multi detector CT axial slices of the lumbar spine were obtained without IV contrast. Volumetric acquisition sagittal, coronal, and 3-D reconstructions were performed and reviewed on a separate workstation. CT was performed with one or more of the following dose reduction techniques: Automated exposure control, adjustment of the mA and/or kV according to patient size, or use of iterative reconstruction technique. COMPARISON: None FINDINGS: Vertebral body heights appear maintained. Scattered endplate degenerative changes with moderate disc space narrowing L2-L3. Transverse processes appear intact. Facet joints demonstrate minimal degenerative change. Mild degenerative changes are seen involving the SI joints. No paraspinal mass. Visualized retroperitoneum demonstrates no acute process. CT/CT lumbar spine wo con IMPRESSION: Degenerative changes involving the lumbar spine with moderate disc space narrowing L2-L3. No acute fracture. Impression dictated by: Tommie Gotti Jr. DJanetOJanet01/26/2025 2:37 PM Dictation Location: [employer] Electronically authenticated by: [id number] Y Date: 01/26/2025 14:37
== END 2025-01-26 13:03 | disposition home or self-care (01) ==
LOC: CT 13:02
PROVIDERS: PCP Nurse Practitioner Family; Visit Provider Anesthesiology
DX: M48.062 Spinal stenosis, lumbar region with neurogenic claudication (principal); M51.369 Other intervertebral disc degeneration, lumbar region without mention of lumbar back pain or lower extremity pain
CPT/HCPCS: 72131

== ENCOUNTER 2025-02-01 14:53 | Outpatient (OUT) | payer MEDICARE, MEDICAID, SELFPAY ==
--- NOTE | 2025-02-01 15:08 | PM.CN ---
Consult Note: HPI Data of Consult Patient: known to practice within the last 3 years Consult date: 01/23/25 Requesting Physician: Heather Mccabe NP Primary Care Provider: JOVANI HANSON Consult Narrative Reason for consult: f/u Narrative: 64yof who presents for evaluation. notes longstanding low back pain after fall last winter with resulting numbness down left leg. evaluated by ortho for left hip pain, but found to have no acute pathology. has continued in a series of provider directed home exercises >6 weeks, without lasting benefit. uses otc pain meds and has tried gabapentin and lyrica with side effects. recent lumbar CT consistent with multilevel degenerative changes. cc:: CC: Heather Mccabe NP Review of Systems ROS Status of ROS 10 or more systems reviewed and unremarkable except as noted in history and below Musculoskeletal Reports: back pain and extremity pain PFSH PFSH Medical History Pacemaker ?Z95.0 - Presence of cardiac pacemaker (ICD-10) Acute GI bleeding ?K92.2 - Gastrointestinal hemorrhage, unspecified (ICD-10) Elevated INR ?R79.1 - Abnormal coagulation profile (ICD-10) Pneumonia ?J18.9 - Pneumonia, unspecified organism (ICD-10) Dyspnea ?R06.00 - Dyspnea, unspecified (ICD-10) Dizziness ?R42 - Dizziness and giddiness (ICD-10) Diabetes ?E11.9 - Type 2 diabetes mellitus without complications (ICD-10) Bipolar 1 disorder, depressed ?F31.9 - Bipolar disorder, unspecified (ICD-10) HTN (hypertension) ?I10 - Essential (primary) hypertension (ICD-10) High cholesterol ?E78.00 - Pure hypercholesterolemia, unspecified (ICD-10) Afib ?I48.91 - Unspecified atrial fibrillation (ICD-10) Surgical History History of bowel resection ?Z90.49 - Acquired absence of other specified parts of digestive tract (ICD-10) Family History Father Heart attack Brother Heart attack Sister Heart attack Diabetes Son Diabetes Social History Within the past year, how often did you have a drink containing alcohol: never Within the past year, how often did you have six or more drinks on one occasion: never Score interpretation: A score less than 3 is consistent with normal alcohol consumption. 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 Known occupational exposures/hazards: No Highest level of school completed/degree received: GED or equivalent Little interest or pleasure in doing things: not at all Feeling down, depressed, or hopeless: not at all Meds Home Medications and Allergies Home Medications ?Medication ?Instructions ?Recorded ?Confirmed ?Type amiodarone 200 mg tablet 200 mg PO Q24H 10/22/24 01/24/25 History lansoprazole 30 mg capsule,delayed 30 mg PO .ACB 10/22/24 01/24/25 History release lurasidone 60 mg tablet 60 mg PO DAILY 10/22/24 01/24/25 History meclizine 25 mg tablet 25 mg PO BID PRN dizziness 10/22/24 01/24/25 History melatonin 5 mg tablet 5 mg PO DAILY 10/22/24 01/24/25 History metoprolol succinate 25 mg 25 mg PO DAILY 10/22/24 01/24/25 History tablet,extended release 24 hr mexiletine 150 mg capsule 150 mg PO Q8H 10/22/24 01/24/25 History oxybutynin chloride 10 mg 10 mg PO DAILY 10/22/24 01/24/25 History tablet,extended release 24 hr ranolazine 500 mg tablet,extended 500 mg PO Q12H 10/22/24 01/24/25 History release,12 hr rosuvastatin 10 mg tablet 10 mg PO DAILY 10/22/24 01/24/25 History magnesium 200 mg tablet 200 mg PO BID 10/30/24 01/24/25 History lisinopril 5 mg tablet 5 mg PO .QD 10/31/24 01/24/25 History quetiapine 100 mg tablet 100 mg PO .QHS 10/31/24 01/24/25 History Allergies Allergy/AdvReac Type Severity Reaction Status Date / Time No Known Drug Allergies Allergy Verified 11/05/24 16:02 Exam Constitutional Documenting provider has reviewed patient's vital signs: yes Common normals: no apparent distress, oriented x3, healthy appearing, alert and well nourished General appearance: cooperative HENMT Common normals: normocephalic, hearing grossly normal bilaterally and moist oral mucous membranes Head and scalp: normocephalic Eye Common normals: PERRL Pupil: PERRL Neck & C-Spine Common normals: full ROM General: normal visual inspection Chest Common normals: inspection of chest normal Respiratory Common normals: normal respiratory effort, no retractions and no use of accessory muscles Neuro Common normals: oriented x3, CN's II-XII intact bilaterally, moves all extremities, no focal motor deficits, no sensory deficits noted and deep tendon reflexes 2+ bilaterally Sensorium/orientation: alert Motor exam: strength 5/5 throughout and no movement abnormalities noted Psych Common normals: mental status grossly normal, thought process normal, cooperative, affect normal, speech normal and activity/motor behavior normal Speech: normal speech Thought process: normal thought process Results Additional Findings Additional findings: If on a controlled substance or opioids, I have checked an [place] report on this patient and there are no aberrancies noted in the prescribing history.??If on a controlled substance or opioid a drug screen was completed and reviewed within the last year, and if there has not been a drug screen completed we ordered one today to monitor higher risk, state monitored pain medication use. As part of providing excellent, safe, comprehensive care, the following was completed at our patient's visit: 1. A medication reconciliation and review to ensure accurate knowledge of current/active medications, including asking our patients to inform us about any [id number] medications or herbal remedies/nutritional supplements/alternative remedies. 2. A review to specifically ensure our patients have had annual screening for screening for depression, screening for tobacco use, and screening for unhealthy alcohol use. For concerning screenings had a discussion with the patient, provided patient education, and recommended follow-up with primary care provider when appropriate. If patient noted with a risk of falling, they received education on strength, gait, and balance training to prevent future risk of falling. Portions of this note may have been carried over from the previous visit and updated as appropriate. Please note this office utilizes paper charting in addition to the electronic medical record. A list of current medications, vitals, and PMH is available there as the clinical staff outside of myself do not have access to [employer] charting during the clinic day operations. As part of providing quality comprehensive care the current medications, vitals, and PMH were reviewed in the paper chart. Assessment and Plan Assessment and Plan (1) Lumbar stenosis with neurogenic claudication: (2) Myalgia, other site: (3) Lumbar radiculopathy: Plan proceed with left L3,4 L4,5 TFESI for lumbar radiculopathy and lumbar stenosis unresponsive to > 6weeks of provider guided HEP, heat, ice, tylenol, NSAIDs. DC gabapentin due to side effects, not interested in trialing lower doses due to side effects. start baclofen 5-10mg TID PRN pain/spasms. f/u 2 weeks after TFESI.
== END 2025-02-01 14:54 | disposition home or self-care (01) ==
LOC: PM 14:53
PROVIDERS: PCP Nurse Practitioner Family; Visit Provider Nurse Practitioner
DX: M48.062 Spinal stenosis, lumbar region with neurogenic claudication (principal); M79.18 Myalgia, other site; M54.16 Radiculopathy, lumbar region
CPT/HCPCS: G0463

== ENCOUNTER 2025-02-10 09:43 | Outpatient (OUT) | payer MEDICARE, MEDICAID, SELFPAY ==
--- NOTE | 2025-02-10 09:00 | NM_ITS ---
The [place] [address] Patient Name: KING MORENO MRN: [id number] date: 1960 Sex: F Assigned Patient Location: OR Current Patient Location: [facility] Accession/Order Number: [id number] Exam Date: 02/10/2025 14:53 Report Date: 02/10/2025 15:06 At the request of: DANIELLE HERNANDEZ Procedure: OR bone scan limited area Nuclear medicine limited bone scan TECHNIQUE: 25.5mCi of technetium 99m labeled MDP was administered. Planar imaging obtained in multiple planes. COMPARISON: Plain film pelvis 11/05/2024 demonstrating no acute fracture. CT pelvis 10/22/2024 demonstrating no acute bony finding. There is evidence of left gluteal intramuscular hematoma. HISTORY: Left leg pain. Fell on left side. This occurred last October. Pain is near the left hip and buttocks with radiation to left leg. Findings: There is symmetric uptake of the pelvis. There is symmetric uptake of the proximal femurs. There is no abnormal uptake seen to suggest acute fracture. There are symmetric uptake of the knees. No abnormal uptake seen to suggest acute fracture. OR/OR bone scan limited area IMPRESSION: No abnormal increased uptake of the pelvis or femurs or knees to suggest acute fracture. Findings of the left gluteal intramuscular hematoma with prior imaging dated 10/22/2024. May consider follow-up assessment including CT/MRI of the left hip. Impression dictated by: Joshua Miner M.D.02/10/2025 3:06 PM Dictation Location: [place] [address] Electronically authenticated by: [id number] Y Date: 02/10/2025 15:06
== END 2025-02-10 09:44 | disposition home or self-care (01) ==
LOC: NM 09:43
PROVIDERS: PCP Nurse Practitioner Family; Visit Provider Internal Medicine Cardiovascular Disease
DX: I47.20 Ventricular tachycardia, unspecified (principal); Z79.899 Other long term (current) drug therapy; M25.552 Pain in left hip
CPT/HCPCS: 36415; 71046; 78300; 85018; 94060; 94726; 94729; A9503

== ENCOUNTER 2025-02-10 11:48 | Outpatient (OUT) | payer MEDICARE, MEDICAID, SELFPAY ==
--- NOTE | 2025-02-10 11:52 | XR_ITS ---
The [place] [id number] Patient Name: KING MORENO MRN: [id number] date: 1960 Sex: F Assigned Patient Location: [facility] Current Patient Location: [facility] Accession/Order Number: [id number] Exam Date: 02/10/2025 12:13 Report Date: 02/10/2025 12:13 At the request of: DANIELLE HERNANDEZ Procedure: XR chest 2V Chest 2 views CLINICAL HISTORY: Ventricular Tachycardia, High Risk Medication COMPARISON: None FINDINGS: Pacemaker device in place. Heart is normal in size. Chronic bibasilar interstitial changes. No consolidation pneumothorax pleural effusion or free air. XR/XR chest 2V IMPRESSION: NO ACUTE CARDIOPULMONARY ABNORMALITY. Impression dictated by: Tommie Gotti Jr., D.O.02/10/2025 12:13 PM Dictation Location: [place] [address] Electronically authenticated by: [id number] Y Date: 02/10/2025 12:13
[2025-02-10] MEDS: ALBUTEROL SULFATE 2.5 MG/3 ML VIAL NEB IH (13:29)
--- NOTE | 2025-02-10 14:29 | RT_ITS ---
The [facility] Test Date: 2025-02-10 Pat Name: KING MORENO Department: Room: - Gender: Female Realtime Captioner: Roselia Jackson RRT : 1960 Requested By: [id number] Order Number: [id number] Reading MD: Cade Sharpe Interpretive Statements Pulmonary function testing was completed according to ATS criteria. Findings were considered accurate and reproducible, with exception of DLCO & post-FVC which did not meet ATS standards. Both pre- and post-bronchodilator values utilized for spirometry. Spirometry (based on pre-bronchodilator values): -FEV1/FVC: Normal @ 73% -FEV1: Normal @ 91% -FVC: Normal @ 96% -WSK98-40%: Reduced @ 79% -There is a positive bronchodilator response in JSN83-97%, but diagnostic and clinical significance is unclear. Lung volumes by plethysmography: -RV: Normal @ 97% -TLC: Normal @ 100% Diffusion capacity: -DLCO: Severe reduction @ 48% when corrected for Hb 11g/dL Flow-volume loop: -Mild flattening of inspiratory limb Impressions: -Technically normal spirometry, though it appears to be trending towards a mild obstructive pattern without a significant bronchodilator response. Normal lung volumes with severe diffusion impairment. Overall study suggests underlying COPD/emphysema. There is mild flattening of the inspiratory flow-volume loop which can be seen in variable extrathoracic obstruction. Clinical correlation required. Electronically Signed On 02-13-2025 13:04:10 EDT by Cade Sharpe
== END 2025-02-10 11:49 | disposition home or self-care (01) ==
LOC: RAD 11:48
PROVIDERS: PCP Nurse Practitioner Family; Visit Provider Internal Medicine Cardiovascular Disease
DX: I47.20 Ventricular tachycardia, unspecified (principal); Z79.899 Other long term (current) drug therapy
CPT/HCPCS: 36415; 71046; 85018; 94060; 94726; 94729

== ENCOUNTER 2025-02-13 09:37 | Day surgery (SDC) | payer MEDICARE, MEDICAID, SELFPAY ==
[2025-02-13 10:09] VITALS: BP 82/56; PULSE 83; TEMP 36.3; O2SAT 96
[2025-02-13 10:13] LABS: Glucometer 115 mg/dL (74-106)
[2025-02-13 10:15] VITALS: BP 118/64
[2025-02-13 10:41] VITALS: PULSE 67; O2SAT 98
[2025-02-13 10:42] VITALS: BP 100/49; PULSE 65; O2SAT 98
[2025-02-13 10:43] VITALS: BP 107/53
[2025-02-13] MEDS: DEXAMETHASONE SOD PHOS 10 MG/ML VIAL INJ (10:44)
[2025-02-13] MEDS: BUPIVACAINE HCL 0.25% PF 25 MG/10 ML VIAL INJ (10:44)
[2025-02-13] MEDS: 0.9 % SODIUM CHLORIDE 10 ML SYRINGE - SALINE FLUSH INJ (10:44)
[2025-02-13] MEDS: LIDOCAINE HCL 2% 400 MG/20 ML MDV 3 ML INJ (10:45)
[2025-02-13] MEDS: IOHEXOL 240 MG/ML - 10 ML VIAL 24 MG INJ (10:45)
--- NOTE | 2025-02-13 10:57 | P.ON_ITS ---
Date of procedure: 02/13/25 Pre-op diagnosis: Pain due to lumbar stenosis with neurogenic claudication Post-op diagnosis: same as pre-op Procedure: Procedure: Left L3-4, L4-5 transforaminal epidural steroid injection Medications: Bupivacaine 0.25% 2cc, lidocaine 2% 1cc, dexamethasone 10mg The patient was seen and examined in the preoperative holding area.? Informed consent was obtained and placed on the chart.? Patient was brought to the medical procedure unit and placed in the prone position where a timeout was completed verifying the correct patient, procedure site, position, and planned special equipment using sterile aseptic technique.? Under direct fluoroscopic visualization a 25-gauge Quincke tipped spinal needle was advanced to the designated neural foramen where contrast dye was injected to show adequate spread.? The needle was inserted at level left L3-4. There was no evidence of vascular or adverse uptake.? Epidural spread was appreciated.? The above- mentioned injectate was then placed in a 1.5 mL aliquot preceded by negative aspiration.? The needle was removed. The needle was inserted and the procedure repeated at level left L4-5.? The surgery site was covered.? Patient was taken to the postprocedural recovery area and monitored for an appropriate length of time before found suitable for discharge in the accompaniment of a responsible adult. Anesthesia: Local Surgeon: Amish Amador Pathology: none sent Condition: stable Disposition: no change
== END 2025-02-13 10:51 | disposition home or self-care (01) ==
LOC: SURGOUT 09:38
PROVIDERS: PCP Nurse Practitioner Family; Visit Provider Anesthesiology
DX: M48.062 Spinal stenosis, lumbar region with neurogenic claudication (principal); E11.8 Type 2 diabetes mellitus with unspecified complications
CPT/HCPCS: 36415; 64483; 64484; 82948; J0665; J1100; Q9966

== ENCOUNTER 2025-02-20 10:47 | Outpatient (OUT) | payer MEDICARE, MEDICAID, SELFPAY ==
--- NOTE | 2025-02-20 14:40 | P.CN_ITS ---
Consult Note: HPI Data of Consult Patient: known to practice within the last 3 years Consult date: 02/20/25 Requesting Physician: Amish Amador MD Primary Care Provider: JOVANI HANSON Consult Narrative Reason for consult: left hip pain Narrative: 64yof who presents for assessment. continues to have significant left hip and thigh pain. has continued in a series of provider directed home exercises >6 weeks, without relief. tried gabapentin, but unable to tolerate side effects. tried muscle relaxant, not effective. cc:: CC: Amish Amador MD Review of Systems ROS0 Status of ROS 10 or more systems reviewed and unremark able except as noted in history and below PFSH PFSH Medical History Pacemaker ?Z95.0 - Presence of cardiac pacemaker (ICD-10) Acute GI bleeding ?K92.2 - Gastrointestinal hemorrhage, unspecified (ICD-10) Elevated INR ?R79.1 - Abnormal coagulation profile (ICD-10) Pneumonia ?J18.9 - Pneumonia, unspecified organism (ICD-10) Dyspnea ?R06.00 - Dyspnea, unspecified (ICD-10) Dizziness ?R42 - Dizziness and giddiness (ICD-10) Diabetes ?E11.9 - Type 2 diabetes mellitus without complications (ICD-10) Bipolar 1 disorder, depressed ?F31.9 - Bipolar disorder, unspecified (ICD-10) HTN (hypertension) ?I10 - Essential (primary) hypertension (ICD-10) High cholesterol ?E78.00 - Pure hypercholesterolemia, unspecified (ICD-10) Afib ?I48.91 - Unspecified atrial fibrillation (ICD-10) Surgical History H/O tubal ligation ?Z98.51 - Tubal ligation status (ICD-10) Hx of cholecystectomy ?Z90.49 - Acquired absence of other specified parts of digestive tract (ICD- 10) Status post other internal cardiac defibrillator procedure ?Z95.0 - Presence of cardiac pacemaker (ICD-10) History of bowel resection ?Z90.49 - Acquired absence of other specified parts of digestive tract (ICD- 10) Family History Father Heart attack Brother Heart attack Sister Heart attack Diabetes Son Diabetes Social History Within the past year, how often did you have a drink containing alcohol: never Within the past year, how often did you have six or more drinks on one occasion: never Score interpretation: A score less than 3 is consistent with normal alcohol consumption. 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 Known occupational exposures/hazards: No Highest level of school completed/degree received: GED or equivalent Little interest or pleasure in doing things: not at all Feeling down, depressed, or hopeless: not at all Meds Home Medications and Allergies Home Medications ?Medication ?Instructions ?Recorded ?Confirmed ?Type amiodarone 200 mg tablet 200 mg PO Q24H 10/22/24 01/24/25 History lansoprazole 30 mg capsule,delayed 30 mg PO .ACB 10/22/24 01/24/25 History release lurasidone 60 mg tablet 60 mg PO DAILY 10/22/24 01/24/25 History meclizine 25 mg tablet 25 mg PO BID PRN dizziness 10/22/24 01/24/25 History melatonin 5 mg tablet 5 mg PO DAILY 10/22/24 01/24/25 History metoprolol succinate 25 mg 25 mg PO DAILY 10/22/24 01/24/25 History tablet,extended release 24 hr mexiletine 150 mg capsule 150 mg PO Q8H 10/22/24 01/24/25 History oxybutynin chloride 10 mg 10 mg PO DAILY 10/22/24 01/24/25 History tablet,extended release 24 hr ranolazine 500 mg tablet,extended 500 mg PO Q12H 10/22/24 01/24/25 History release,12 hr rosuvastatin 10 mg tablet 10 mg PO DAILY 10/22/24 01/24/25 History magnesium 200 mg tablet 200 mg PO BID 10/30/24 01/24/25 History lisinopril 5 mg tablet 5 mg PO .QD 10/31/24 01/24/25 History quetiapine 100 mg tablet 100 mg PO .QHS 10/31/24 01/24/25 History baclofen 10 mg tablet 10 mg PO TID PRN muscle spasm 02/01/25 02/01/25 History acetaminophen 300 mg-codeine 30 mg 1 tab PO BID PRN pain #28 tabs 02/20/25 Rx tablet Allergies Allergy/AdvReac Type Severity Reaction Status Date / Time No Known Drug Allergies Allergy Verified 11/05/24 16:02 Exam Narrative Exam Narrative: Psych-alert and oriented x 3.? Attentive and appropriate, constitutionally normal, displays normal mood and affect per situation.? There are no obvious deficits in memory, reasoning, or intellect.? Skin-no obvious rashes, bruising, erythema noted to the patient's area of pain. Extremities- extremities are warm with minimal edema and palpable pulses. Hip-tenderness to palpation is noted over the left hip joint.? Pain is elicited with internal and external rotation of the hip.? Hip provocative maneuvers are positive and consistent with the patient's normal pain.? Coordination remains intact.? Gait remains antalgic. Assessment and Plan Assessment and Plan (1) Left hip pain: (2) Contusion of left hip: Qualifiers: Encounter type: subsequent encounter Qualified Code(s): S70.02XD - Contusion of left hip, subsequent encounter (3) Abnormal radionuclide bone scan: Plan 64yof who presents for assessment. failed conservative measures, as noted. bone scan reviewed, which is significant for contusion of left gluteal region with recommendation of left hip CT scan. cannot have mri due to cardiac device. will order left hip ct scan for further info. meds reviewed. will trial t#3 bid prn for 2 weeks. follow up after imaging.
== END 2025-02-20 10:48 | disposition home or self-care (01) ==
LOC: PM 10:50
PROVIDERS: PCP Nurse Practitioner Family; Visit Provider Anesthesiology
DX: M25.552 Pain in left hip (principal); S70.02XA Contusion of left hip, initial encounter; R94.8 Abnormal results of function studies of other organs and systems
CPT/HCPCS: G0463

== ENCOUNTER 2025-03-02 09:20 | Outpatient (OUT) | payer MEDICARE, MEDICAID, SELFPAY ==
[2025-03-02 10:58] LABS: Anion Gap 14.8; BUN Creatinine Ratio 11.9; Calcium 8.9 mg/dL (8.5-10.1); Carbon Dioxide 25.2 mmol/L (21.0-32.0); Chloride 100 mmol/L (98-107); Estimated GFR (African America >60 (>=60 mL/min/1.73m^2); Estimated GFR (Non-African Ame >60 (>=60 mL/min/1.73m^2); Glucose 122 mg/dL (74-106); Sodium 136 mmol/L (136-145)
== END 2025-03-02 09:21 | disposition home or self-care (01) ==
LOC: LAB 09:27
PROVIDERS: PCP Nurse Practitioner Family
DX: I50.22 Chronic systolic (congestive) heart failure (principal); I47.20 Ventricular tachycardia, unspecified; Z95.810 Presence of automatic (implantable) cardiac defibrillator
CPT/HCPCS: 36415; 80048

== ENCOUNTER 2025-03-07 12:37 | Outpatient (OUT) | payer MEDICARE, MEDICAID, SELFPAY ==
--- NOTE | 2025-03-07 12:39 | CT_ITS ---
The [address] [address] Patient Name: KING MORENO MRN: [id number] date: 1960 Sex: F Assigned Patient Location: CT Current Patient Location: CT Accession/Order Number: [id number] Exam Date: 03/07/2025 13:53 Report Date: 03/07/2025 14:02 At the request of: AVERY ROBLES MD Procedure: CT hip LT wo/w con CT left hip WITH AND WITHOUT INTRAVENOUS CONTRAST: CLINICAL HISTORY: left hip pain abnormal bone scan COMPARISON: Bone scan 02/10/2025 TECHNIQUE: Spiral images were obtained through the left hip before and after the administration of intravenous contrast. This CT exam was performed using one or more following dose reduction techniques: Automated exposure control, adjustment of the mA and/or kV according to patient size, or use of iterative reconstruction technique. FINDINGS: Mild degenerative changes of the left hip. No fracture is seen. No bony destructive lesion. No soft tissue swelling or hematoma is seen. Musculature appears atrophic. Intrapelvic contents demonstrates no acute process. CT/CT hip LT wo/w con IMPRESSION: No focal soft tissue abnormality. No bony destructive lesion. Mild degenerative changes of the left hip. Impression dictated by: Rosy Márquez Jr.OJanet 03/07/2025 2:02 PM Dictation Location: [place] [address] Electronically authenticated by: [id number] Y Date: 03/07/2025 14:02
== END 2025-03-07 12:38 | disposition home or self-care (01) ==
LOC: CT 12:37
PROVIDERS: PCP Nurse Practitioner Family; Visit Provider Anesthesiology
DX: M25.552 Pain in left hip (principal)
CPT/HCPCS: 73702; Q9967

== ENCOUNTER 2025-03-11 16:23 | Emergency (ER) | payer MEDICARE, MEDICAID, SELFPAY ==
[2025-03-11 16:43] VITALS: BP 107/64; PULSE 79; TEMP 37.2; O2SAT 99; BMI 27.0
--- NOTE | 2025-03-11 17:46 | ED.GENADUL1 ---
HPI HPI - General Adult General Chief complaint: Extremity Injury, Lower Stated complaint: FALL, PAIN IN L FOOT Time Seen by Provider: 03/11/25 16:40 Source: patient Mode of arrival: Wheelchair Limitations: no limitations History of Present Illness HPI narrative: 64-year-old female presents for left foot pain. She states last night her leg fell asleep and when she went to stand up she fell and twisted her foot. She points to the dorsal lateral aspect of her foot to indicate where most of the pain is. No other injury was sustained. The pain is moderate and worse when she walks on it. Related Data Home Medications ?Medication ?Instructions ?Recorded ?Confirmed amiodarone 200 mg tablet 200 mg PO Q24H 10/22/24 03/11/25 lansoprazole 30 mg capsule,delayed 30 mg PO .ACB 10/22/24 03/11/25 release meclizine 25 mg tablet 25 mg PO BID PRN dizziness 10/22/24 03/11/25 melatonin 5 mg tablet 5 mg PO DAILY 10/22/24 03/11/25 metoprolol succinate 25 mg 25 mg PO DAILY 10/22/24 03/11/25 tablet,extended release 24 hr mexiletine 150 mg capsule 150 mg PO Q8H 10/22/24 03/11/25 oxybutynin chloride 10 mg 10 mg PO DAILY 10/22/24 03/11/25 tablet,extended release 24 hr ranolazine 500 mg tablet,extended 500 mg PO Q12H 10/22/24 03/11/25 release,12 hr rosuvastatin 10 mg tablet 10 mg PO DAILY 10/22/24 03/11/25 magnesium 200 mg tablet 200 mg PO BID 10/30/24 03/11/25 lisinopril 5 mg tablet 5 mg PO .QD 10/31/24 03/11/25 quetiapine 100 mg tablet 100 mg PO .QHS 10/31/24 03/11/25 baclofen 10 mg tablet 10 mg PO TID PRN muscle spasm 02/01/25 03/11/25 Allergies Allergy/AdvReac Type Severity Reaction Status Date / Time No Known Drug Allergies Allergy Verified 03/11/25 16:43 Opioid HPI Opioid Management Most Recent Opioid Data: Last Pain Scale 10 Today, 16:43 Last Pain Intensity 0 10/31/24, 09:34 Last ORT Total Score 8 10/30/24, 17:53 Last ORT Risk Category High Risk 10/30/24, 17:53 Review of Systems ROS Narrative A ten point review of systems is negative except as noted above. PFSH PFSH Medical History Pacemaker ?Z95.0 - Presence of cardiac pacemaker (ICD-10) Acute GI bleeding ?K92.2 - Gastrointestinal hemorrhage, unspecified (ICD-10) Elevated INR ?R79.1 - Abnormal coagulation profile (ICD-10) Pneumonia ?J18.9 - Pneumonia, unspecified organism (ICD-10) Dyspnea ?R06.00 - Dyspnea, unspecified (ICD-10) Dizziness ?R42 - Dizziness and giddiness (ICD-10) Diabetes ?E11.9 - Type 2 diabetes mellitus without complications (ICD-10) Bipolar 1 disorder, depressed ?F31.9 - Bipolar disorder, unspecified (ICD-10) HTN (hypertension) ?I10 - Essential (primary) hypertension (ICD-10) High cholesterol ?E78.00 - Pure hypercholesterolemia, unspecified (ICD-10) Afib ?I48.91 - Unspecified atrial fibrillation (ICD-10) Surgical History H/O tubal ligation ?Z98.51 - Tubal ligation status (ICD-10) Hx of cholecystectomy ?Z90.49 - Acquired absence of other specified parts of digestive tract (ICD-10) Status post other internal cardiac defibrillator procedure ?Z95.0 - Presence of cardiac pacemaker (ICD-10) History of bowel resection ?Z90.49 - Acquired absence of other specified parts of digestive tract (ICD-10) Family History Father Heart attack Brother Heart attack Sister Heart attack Diabetes Son Diabetes Social History Within the past year, how often did you have a drink containing alcohol: never Within the past year, how often did you have six or more drinks on one occasion: never Score interpretation: A score less than 3 is consistent with normal alcohol consumption. 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 General: The patient appears well and in no apparent distress. Her left leg is elevated. Skin: Warm, dry, no pallor noted. There is no rash noted. Head: Normocephalic, atraumatic Eye: Normal conjunctiva, no drainage Ears, Nose, Mouth, and Throat: oral mucosa is moist. Nares patent. Cardiovascular: Regular Rate and Rhythm Respiratory: Patient is in no distress, no accessory muscle use Back: non-tender GI: Soft and nontender Musculoskeletal: Her left foot and ankle are examined. She has some tenderness and swelling in the dorsum of her left foot. Skin intact. Neurological: A&O, normal speech Psychiatric: Cooperative Constitutional Vital Signs, click to edit/add: Last Vital Signs Temp 98.9 F 03/11/25 16:43 Pulse 79 03/11/25 16:43 Resp 14 03/11/25 16:43 BP 107/64 03/11/25 16:43 Pulse Ox 99 03/11/25 16:43 O2 Del Method Room Air 03/11/25 16:43 Course Vital Signs Vital signs: Vital Signs Temperature 98.9 F 03/11/25 16:43 Pulse Rate 79 03/11/25 16:43 Respiratory Rate 14 03/11/25 16:43 Blood Pressure 107/64 03/11/25 16:43 Pulse Oximetry 99 03/11/25 16:43 Oxygen Delivery Method Room Air 03/11/25 16:43 Temperature 98.9 F 03/11/25 16:43 Pulse Rate 79 03/11/25 16:43 Respiratory Rate 14 03/11/25 16:43 Blood Pressure 107/64 03/11/25 16:43 Pulse Oximetry 99 03/11/25 16:43 Oxygen Delivery Method Room Air 03/11/25 16:43 Medical Decision Making MDM Narrative Medical decision making narrative: X-rays are ordered and pending and the patient is signed out to Dr. Red at change of shift. Discharge Plan Discharge Patient Disposition: Still a Patient
[2025-03-11 19:39] VITALS: BP 133/72; PULSE 72; TEMP 36.8; O2SAT 99
== END 2025-03-11 19:41 | disposition home or self-care (01) ==
PROVIDERS: Emergency Provider Emergency Medicine; PCP Nurse Practitioner Family
DX: S93.402A Sprain of unspecified ligament of left ankle, initial encounter (principal); X50.1XXA Overexertion from prolonged static or awkward postures, initial encounter; Z95.0 Presence of cardiac pacemaker; Z98.51 Tubal ligation status; Z90.49 Acquired absence of other specified parts of digestive tract
CPT/HCPCS: 73610; 73630; 99283

== ENCOUNTER 2025-03-24 23:09 | Emergency (ER) | payer MEDICARE, MEDICAID, SELFPAY ==
--- OUTSIDE RECORDS SUMMARY | 2023-05-28 09:36 | XMS_ITS | Continuity of Care Document ---
Author Organization [facility] Address [address] [place] [address] Phone Care Team Providers Care District Fire Management Officer Name Role Phone Paolo Olivo Unavailable Unavailable [...] Limited Oral Eval Intraoral-periapical 1st Film 4 [id number] Additional Jan [facility] FP MEDICAID Condoms FLU VACCINE, 3 YRS & >, IM NEW FP MEDICAID URINALYSIS, NONAUTO W/SCOPE SPECIMEN HANDLING FLU VACCINE, 3 YRS & >, IM Advance Directives Directive Yes / No Effective Date File Name No Information Encounters Encounter Description Practice Location Reason(s) For Visit Diagnoses Date Provider Providers Copied on Encounter [facility], [address] [place] [address], [id number] , [place] tel:[phone] [facility] No Information 3 Visci DO Paolo. [address] [place] [address], [id number], [place]. tel:[phone] OFFICE/OUTPA TIENT VISIT, EST [facility], [address] [place] [address], [id number] , tel:[phone] [facility] med refills (chief complaint) Body mass index [BMI] 36.0-36.9, adultCOPD w/ acute exacerbationLow back pain, unspecified 1 [facility] DO Max. [address], [place], [id number], [place]. tel:[phone] [facility], [address], [place], [id number] , [place] tel:[phone] [facility] lab draw (chief complaint) Chronic obstructive pulmonary disease, unspecified 1 [facility] DO Max. [address], [place], [id number], [place]. tel:[phone] OFFICE/OUTPA TIENT VISIT, [facility], [address] [place] [address], [id number] , [place] tel: [phone] [facility] Med Refills (chief complaint)fa tigue (chief complaint) Body mass index [BMI] 36.0-36.9, adultAnxiety disorder, unspecifiedChron ic obstructive pulmonary disease, unspecifiedCOPD w/ acute exacerbationIron deficiency anemia due to chronic blood lossType 2 diabetes mellitus without complications 1 [facility] DO Max. [address] [place] [address], [id number], [place]. tel:[phone] OFFICE/OUTPA TIENT VISIT, [facility], [address] [place] [address], [id number] , [place] tel:[phone] [facility] med refill (chief complaint) Body mass index [BMI] 36.0-36.9, adultCarpal tunnel syndrome, leftCervicalgiaM yash problem Sep- 1 [facility] DO Max. [address] [place] [address], [id number], [place]. tel:[phone] OFFICE/OUTPA TIENT VISIT, [facility], [address] [place] [address], [id number] , [place] tel:[phone] [facility] A1C & Med Refills (chief complaint)di abetes (chief complaint) Body mass index [BMI] 36.0-36.9, adultType 2 diabetes mellitus with hyperglycemiaAnx iety disorder, unspecifiedCervi calgia 1 [facility] Max. [address], [place], [id number], [place]. tel:[phone] OFFICE/OUTPA TIENT VISIT, [facility], [address], [place], [id number] , [place] tel: [phone] [facility] Med Refills (chief complaint)Mu sculoskeleta l pain (chief complaint) Anxiety disorder, unspecifiedCervi calgiaUnspecifie d sprain of left wrist, initial encounterBody mass index [BMI] 36.0-36.9, adult 1 [facility]. [address] [place] [address], [id number], [place]. tel:[phone] OFFICE/OUTPA TIENT VISIT, [facility], [address] [place] [address], [id number] , [place] tel: [phone] [facility] med refill (chief complaint)fa tigue (chief complaint) Body mass index [BMI] 36.0-36.9, adultType 2 diabetes mellitus with other circulatory complicationsAnx iety disorder, unspecified 1 [facility]. [address] [place] [address], [id number], [place]. tel:[phone] OFFICE/OUTPA TIENT VISIT, [facility], [address], [place], [id number] , [place] tel: [phone] [facility] med refill (chief complaint)Me curt loss (chief complaint) Type 2 diabetes mellitus with other circulatory complicationsBod y mass index [BMI] 35.0-35.9, adultAnxiety disorder, unspecifiedUrina ry frequencyMemory problem 1 [facility] Max. [address] [place] [address], [id number], [place]. tel:[phone] OFFICE/OUTPA TIENT VISIT, [facility], [address] [place] [address], [id number] , [place] tel: [phone] [facility] med Refills (chief complaint)fa tigue (chief complaint) Body mass index [BMI] 35.0-35.9, adultAnemia, unspecified typeEssential (primary) hypertensionIron deficiency anemia due to chronic blood loss 0 1 [facility] DO Max. [address] [place] [address], [id number], [place]. tel:[phone] OFFICE/OUTPA TIENT VISIT, [facility], [address] [place] [address], [id number] , [place] tel: [phone] [facility] med refill (chief complaint)Co ugh (chief complaint) Chronic obstructive pulmonary disease, unspecifiedAnxie ty disorder, unspecifiedOther cervical disc degeneration, unspecified cervical region 0 1 [facility] DO Max. [address] [place] [address], [id number], [place]. tel:[phone] OFFICE/OUTPA TIENT VISIT, [facility], [address] [place] [address], [id number] , [place] tel: [phone] [facility] A1C (chief complaint)di abetes (chief complaint) Type 2 diabetes mellitus with other circulatory complicationsAnx iety disorder, unspecifiedLumba r back pain 0 1 [facility] DO Max. [address] [place] [address], [id number], [place]. tel:[phone] OFFICE/OUTPA TIENT VISIT, [facility], [address] [place] [address], [id number] , [place] tel: [phone] [facility] Med Refills (chief complaint)GE RD (chief complaint) Body mass index [BMI] 34.0-34.9, adultChronic pulmonary embolismGastroin testinal hemorrhage associated with gastric ulcerType 2 diabetes mellitus with hyperglycemiaOth er cervical disc degeneration, unspecified cervical region 1 [facility] DO Max. [address] [place] [address], [id number], [place]. tel:[phone] OFFICE/OUTPA TIENT VISIT, [facility], [address], [place], [id number] , [place] tel: [phone] [facility] med refill (chief complaint) Carpal tunnel syndrome of right wristAnxiety disorder, unspecifiedCervi calgia 3 0-202 0 [facility] DO Max. [address], [place], [id number], [place]. tel:[phone] OFFICE/OUTPA TIENT VISIT, [facility], [address], [place], [id number] , [place] tel: [phone] [facility] Med Refills (chief complaint)ba ck pain (chief complaint) Body mass index [BMI] 32.0-32.9, adultOther cervical disc degeneration, unspecified cervical regionAnxiety disorder, unspecifiedCOPD w/ acute exacerbation 2- 0 [facility] DO Max. [address] [place] [address], [id number], [place]. tel:[phone] OFFICE/OUTPA TIENT VISIT, [facility], [address] [place] [address], [id number] , [place] tel: [phone] [facility] A1C & Med Refills (chief complaint)di abetes (chief complaint) Body mass index [BMI] 32.0-32.9, adultType 2 diabetes mellitus without complicationsAnx iety disorder, unspecifiedOther cervical disc degeneration, unspecified cervical region 4 0 [facility] DO Max. [address] [place] [address], [id number], [place]. tel:[phone] OFFICE/OUTPA TIENT VISIT, [facility], [address] [place] [address], [id number] , [place] tel: [phone] [facility] Med Refills (chief complaint) Body mass index [BMI] 32.0-32.9, adultAnxiety disorder, unspecifiedFolli culitisCervicalg ia Aug- 7-202 0 [facility] DO Max. [address] [place] [address], [id number], [place]. tel:[phone] OFFICE/OUTPA TIENT VISIT, [facility], [address] [place] [address], [id number] , [place] tel: [phone] [facility] f/u hospital (chief complaint)fa tigue (chief complaint) Gastrointestinal hemorrhage associated with gastric ulcerIron deficiency anemia due to chronic blood lossAnxiety disorder, unspecified Jul- 0 [facility] DO Max. [address] [place] [address], [id number], [place]. tel:[phone] OFFICE/OUTPA TIENT VISIT, [facility], [address] [place] [address], [id number] , [place] tel: [phone] [facility] A1C & MED REFILLS (chief complaint)Di zziness (chief complaint)di abetes (chief complaint) Body mass index (BMI) 32.0-32.9, adultType 2 diabetes mellitus without complicationsDiz ziness of unknown cause 0 [facility] Max. [address] [place] [address], [id number], [place]. tel:[phone] OFFICE/OUTPA TIENT VISIT, [facility], [address] [place] [address], [id number] , [place] tel: [phone] [facility] Med Refills (chief complaint)GE RD (chief complaint) Anxiety disorder, unspecifiedDizzi ness of unknown causeGERD w/o esophagitis 0 [facility] DO Max. [address] [place] [address], [id number], [place]. tel:[phone] OFFICE/OUTPA TIENT VISIT, [facility], [address] [place] [address], [id number] , [place] tel: [phone] [facility] med refills (chief complaint)ba ck pain (chief complaint) Body mass index (BMI) 32.0-32.9, adultLumbar back painType 2 diabetes mellitus without complicationsDiz ziness of unknown causeAnxiety disorder, unspecified 0 [facility] DO Max. [address], [place], [id number], [place]. tel:[phone] OFFICE/OUTPA TIENT VISIT, [facility], [address], [place], [id number] , [place] tel: [phone] [facility] A1C & Med refills (chief complaint)An xiety (chief complaint) Body mass index (BMI) 32.0-32.9, adultType 2 diabetes mellitus without complicationsAnx iety disorder, unspecifiedOther cervical disc degeneration, unspecified cervical regionFolliculit isEssential (primary) hypertension 0 [facility] DO Max. [address], [place], [id number], [place]. [phone] OFFICE/OUTPA TIENT VISIT, [facility], [address] [place] [address], [id number] , [place] tel: [phone] [facility] Anxiety (chief complaint) Anxiety disorder, unspecified 0 [facility] DO Max. [address], [place], [id number], [place]. 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 [address], [place], [id number], [place]. tel:[phone] OFFICE/OUTPA TIENT VISIT, [facility], [address], [place], [id number] , [place] tel: [phone] [facility] finger infection (chief complaint)Ra sh (chief complaint) Body mass index (BMI) 32.0-32.9, adultHerpetic whitlowEssential (primary) hypertensionAnxi ety disorder, unspecifiedDizzi ness of unknown cause 0 [facility] DO Max. [address], [place], [id number], [place]. tel:[phone] OFFICE/OUTPA TIENT VISIT, [facility], [address], [place], [id number] , [place] tel: [phone] [facility] Med Refills & A1C (chief complaint)Ra sh (chief complaint) Type 2 diabetes mellitus without complicationsAnx iety disorder, unspecifiedChron ic obstructive pulmonary disease, unspecified 0 [facility] DO Max. [address] [place] [address], [id number], [place]. tel:[phone] [facility], [address] [place] [address], [id number] , [place] tel: [phone] [facility] RANDOM UDS/PILL COUNT (chief complaint) No Information 9 [facility] DO Max. [address] [place] [address], [id number], [place]. tel:[phone] OFFICE/OUTPA TIENT VISIT, [facility], [address] [place] [address], [id number] , [place] tel: [phone] [facility] Med refills (chief complaint)DR WHITLEY DANG (chief complaint) Body mass index (BMI) 32.0-32.9, adultAnxiety disorder, unspecifiedKidne y painDizziness of unknown cause 9 [facility] DO Max. [address] [place] [address], [id number], [place]. tel:[phone] OFFICE/OUTPA TIENT VISIT, [facility], [address] [place] [address], [id number] , [place] tel:[phone] [facility] 4 WEEK F/U (chief complaint)Di zziness (chief complaint) Body mass index (BMI) 31.0-31.9, adultDizziness of unknown causeLumbar back painType 2 diabetes mellitus with hyperglycemia 9 [facility]. [address] [place] [address], [id number], [place]. tel:[phone] OFFICE/OUTPA TIENT VISIT, [facility], [address] [place] [address], [id number] , [place] tel: [phone] [facility] Med refills & A1C (chief complaint)Di zziness (chief complaint) Body mass index (BMI) 31.0-31.9, adultDizziness of unknown causeAnxiety disorder, unspecifiedType 2 diabetes mellitus with hyperglycemia [address], [id number], [place]. tel:[phone] OFFICE/OUTPA TIENT VISIT, [facility], [address] [place] [address], [id number] , [place] tel: [phone] [facility] 6 WK F/U (chief complaint)DR IGNACIO SCREEN (chief complaint) Pain in leg, unspecifiedBody mass index (BMI) 31.0-31.9, adultAnxiety disorder, unspecifiedChron ic pulmonary embolism [address], [id number], [place]. tel:[phone] OFFICE/OUTPA TIENT VISIT, [facility], [address] [place] [address], [id number] , [place] tel: [phone] [facility] follow up (chief complaint)hy pertension (chief complaint)dr ignacio screen (chief complaint) Body mass index (BMI) 31.0-31.9, adultEncntr for general adult medical exam w/o abnormal findingsEssentia l (primary) hypertensionType 2 diabetes mellitus without complicationsAnx iety disorder, unspecified 9 [facility]. [address] [place] [address], [id number], [place]. tel:[phone] OFFICE/OUTPA TIENT VISIT, [facility], [address], [place], [id number] , [place] tel: [phone] [facility] F/U HOSPITAL ADMITION (chief complaint)DR WHITLEY DANG (chief complaint) Body mass index (BMI) 31.0-31.9, adultAnxiety disorder, unspecifiedGERD w/o esophagitisHerpe tic shashi 9 [facility]. [address] [place] [address], [id number], [place]. tel:[phone] OFFICE/OUTPA TIENT VISIT, [facility], [address], [place], [id number] , [place] tel: [phone] [facility] med refill (chief complaint) Body mass index (BMI) 31.0-31.9, adultAnxiety disorder, unspecifiedType 2 diabetes mellitus without complications 9 [facility]. [address] [place] [address], [id number], [place]. tel:[phone] [facility], [address] [place] [address], [id number] , [place] tel: [phone] [facility] med refills (chief complaint) Body mass index (BMI) 31.0-31.9, adultCellulitis and abscess of finger, unspecifiedCutan eous abscess of unspecified handBipolar disorder 9 [facility]. [address], [place], [id number], [place]. tel:[phone] [facility], [address] [place] [address], [id number] , [place] tel: [phone] [facility] Abnormal Mammogram 9 [facility] Beatris. [address] [place] [address], [id number], [place]. tel:[phone] [facility], [address] [place] [address], [id number] , [place] tel: [phone] [facility] Medication refills (chief complaint)A1 C (chief complaint) Body mass index (BMI) 31.0-31.9, adultType 2 diabetes mellitus without complicationsLum laborer car barn pain Jan- 9 [facility]. [address], [place], [id number], [place]. tel:[phone] [facility], [address] [place] [address], [id number] , [place] tel: [phone] [facility] Abnormal Mammogram Jan- 9 [facility]. [address] [place] [address], [id number], [place]. tel:[phone] OFFICE/OUTPA TIENT VISIT, EST [facility], [address] [place] [address], [id number] , [place] tel: [phone] [facility] sickness (chief complaint) Body mass index (BMI) 31.0-31.9, adultAcute non-recurrent maxillary sinusitisCOPD w/ acute exacerbationAnxi ety disorder, unspecifiedOther cervical disc degeneration, unspecified cervical region Dec- 9 [facility]. [address], [place], [id number], [place]. tel:[phone] [facility], [address] [place] [address], [id number] , [place] tel: [phone] [facility] Abnormal MammogramUnspeci fied urinary incontinence 9 [facility] Beat[facility]. [address] [place] [address], [id number], [place]. 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 [address], [place], [id number], [place]. tel:[phone] [facility], [address], [place], [id number] , [place] tel: [phone] [facility] f/u abdominal pain (chief complaint) Body mass index (BMI) 32.0-32.9, adultHx pulmonary embolismHernia of abdominal wallAnxiety disorder, unspecified 9 [facility] DO Max. [address], [place], [id number], [place]. tel:[phone] [facility], [address] [place] [address], [id number] , [place] tel: [phone] [facility] abdomen issues (chief complaint) Right lower quadrant abdominal painEncounter for screening for Ca of colon 9 Kamaljit Wilcox. [address] [place] [address], [id number], [place]. tel:[phone] OFFICE/OUTPA TIENT VISIT, EST [facility], [address], [place], [id number] , [place] tel: [phone] [facility] rib pain when breathing (chief complaint) Body mass index (BMI) 31.0-31.9, adultRib pain on right sideLumbar back painRight hip pain 9 Kamaljit Wilcox. [address] [place] [address], [id number], [place]. tel:[phone] [facility], [address] [place] [address], [id number] , [place] tel:[phone] [facility] med refill (chief complaint) Right hip painLumbar back painAnxiety disorder, unspecified 9 Kamaljit Wilcox. [address] [place] [address], [id number], [place]. tel:[phone] OFFICE/OUTPA TIENT VISIT, [facility], [address] [place] [address], [id number] , [place] tel: [phone] [facility] bladder infection (chief complaint) Oliguria 8 Shahzad Cobb. [address] [place] [address], [id number], [place]. tel:[phone] OFFICE/OUTPA TIENT VISIT, [facility], [address] [place] [address], [id number] , [place] tel: [phone] [facility] Medication refill (chief complaint) Anxiety disorder, unspecifiedBipol ar disorderVertigo 8 Shahzad Cobb. [address] [place] [address], [id number], [place]. tel:[phone] [facility], [address] [place] [address], [id number] , [place] tel: [phone] [facility] medication refill (chief complaint)br onchitis (chief complaint)De nnison: (chief complaint) Chronic obstructive pulmonary disease, unspecifiedCough Type 2 diabetes mellitus without complicationsEss ential (primary) hypertension 8 Margarito Horne. [address] [place] [address], [id number], [place]. tel:[phone] [facility], [address] [place] [address], [id number] , [place] tel: [phone] [facility] sick (chief complaint)me d refill (chief complaint)dE NNISON: (chief complaint) CoughChronic obstructive pulmonary disease, unspecifiedType 2 diabetes mellitus without complicationsEss ential (primary) hypertension 8 Margarito Horne. [address] [place] [address], [id number], [place]. tel:[phone] [facility], [address] [place] [address], [id number] , [place] tel: [phone] [facility] med refill (chief complaint)De nnison: (chief complaint) Focal (segmental) acute (reversible) ischemia of small intestineAnxiety disorder, unspecifiedBipol ar disorderChronic obstructive pulmonary disease, unspecifiedType 2 diabetes mellitus without complicationsNic otine dependence, unspecified, uncomplicatedEss ential (primary) hypertension 8 Margarito Horne. [address] [place] [address], [id number], . tel:[phone] [facility], [address] [place] [address], [id number] , [place] tel: [phone] [facility] med refills (chief complaint)Le ft thight (chief complaint) Meralgia paresthetica, left lower limbAnxiety disorder, unspecifiedBipol ar disorder 7 Shahzad Cobb. [address] [place] [address], [id number], . tel:[phone] OFFICE/OUTPA TIENT VISIT, [facility], [address] [place] [address], [id number] , [place] tel: [phone] [facility] R thigh pain (chief complaint)di scuss medication (chief complaint) Anxiety disorder, unspecifiedBipol ar disorderMeralgia paresthetica, left lower limb 7 Shahzad Cobb. [address] [place] [address], [id number], [place]. tel:[phone] [facility], [address] [place] [address], [id number] , [place] tel: [phone] [facility] HgbA1C (chief complaint)me dication refill (chief complaint) Anxiety disorder, unspecifiedBipol ar disorderCervical giaOther cervical disc degeneration, unspecified cervical regionSpinal stenosis, cervical regionPain in left shoulderType 2 diabetes mellitus with hyperglycemiaGER D w/o esophagitis 7 Shahzad Cobb. [address] [place] [address], [id number], [place]. tel:[phone] OFFICE/OUTPA TIENT VISIT, [facility], [address], [place], [id number] , [place] tel: [phone] [facility] follow up (chief complaint) Chronic pulmonary embolismCervical giaOther cervical disc degeneration, unspecified cervical regionSpinal stenosis, cervical region 7 Shahzad Cobb. [address] [place] [address], [id number], [place]. tel:[phone] OFFICE/OUTPA TIENT VISIT, [facility], [address], [place], [id number] , [place] tel: [phone] [facility] L arm/shoulder pain (chief complaint) CervicalgiaOther cervical disc degeneration, unspecified cervical regionSpinal stenosis, cervical region 6 Shahzad Cobb. [address] [place] [address], [id number], [place]. tel:[phone] OFFICE/OUTPA TIENT VISIT, [facility], [address], [place], [id number] , [place] tel: [phone] [facility] severe leg pain (chief complaint) Restless leg syndromePain in leg, unspecifiedType 2 diabetes mellitus with hyperglycemiaSpi nal stenosis, cervical region 6 Shahzad Cobb. [address] [place] [address], [id number], [place]. tel:[phone] OFFICE/OUTPA TIENT VISIT, [facility], [address], [place], [id number] , [place] tel: [phone] [facility] knee pain (chief complaint) Pain in kneeRestless leg syndrome 6 Shahzad Cobb. [address] [place] [address], [id number], [place]. tel:[phone] [facility], [address] [place] [address], [id number] , [place] tel: [phone] [facility] spasms on right side (chief complaint) Muscle spasm of backCervicalgiaO ther cervical disc degeneration, unspecified cervical regionSpinal stenosis, cervical region 6 Shahzad Cobb. [address] [place] [address], [id number], [place]. tel:[phone] OFFICE/OUTPA TIENT VISIT, [facility], [address] [place], [place], [id number] , [place] tel: [phone] [facility] med refill (chief complaint) Type 2 diabetes mellitus with hyperglycemiaCer vicalgiaOther cervical disc degeneration, unspecified cervical regionSpinal stenosis, cervical region 6 Shahzad Cobb. [address] [place] [address], [id number], [place]. tel:[phone] [facility], [address] [place] [address], [id number] , [place] tel: [phone] [facility] Vertigo 6 Shahzad Cobb. [address] [place] [address], [id number], [place]. tel:[phone] OFFICE/OUTPA TIENT VISIT, [facility], [address] [place] [address], [id number] , [place] tel: [phone] [facility] medication refill (chief complaint)kn ee pain (chief complaint) Bipolar disorder 6 Shahzad Cobb. [address] [place] [address], [id number], [place]. tel:[phone] OFFICE/OUTPA TIENT VISIT, [facility], [address] [place] [address], [id number] , [place] tel: [phone] [facility] medication refill (chief complaint)re stless leg syndrome (chief complaint) Restless leg syndromeCervical giaOther cervical disc degeneration, unspecified cervical regionSpinal stenosis, cervical region 6 Shahzad Cobb. [address] [place] [address], [id number], [place]. tel: [phone] OFFICE/OUTPA TIENT VISIT, [facility], [address] [place], [place], [id number] , [place] tel: [phone] [facility] medication refills (chief complaint) Bipolar disorderAnxiety disorder, unspecified 0 6 Shahzad Cobb. [address] [place], [place], [id number], [place]. [phone] OFFICE/OUTPA TIENT VISIT, [facility], [address] [place], [place], [id number] , [place] tel: [phone] [facility] medication refill (chief complaint) CervicalgiaOther cervical disc degeneration, unspecified cervical regionSpinal stenosis, cervical regionVertigo 6 Shahzad Cobb. [address] [place] [address], [id number], [place]. tel:[phone] OFFICE/OUTPA TIENT VISIT, [facility], [address] [place], [place], [id number] , [place] tel: [phone] [facility] cough (chief complaint)me d refill (chief complaint) Type 2 diabetes mellitus with hyperglycemiaCOP D w/ acute exacerbationCerv icalgiaOther cervical disc degeneration, unspecified cervical regionSpinal stenosis, cervical region 6 Shahzad Cobb. [address] [place] [address], [id number], [place]. tel:[phone] OFFICE/OUTPA TIENT VISIT, [facility], [address] [place], [place], [id number] , [place] tel: [phone] [facility] pain (chief complaint) CervicalgiaPain in left shoulder 5 Shahzad Cobb. [address] [place] [address], [id number], [place]. tel:[phone] OFFICE/OUTPA TIENT VISIT, [facility], [address] [place] [address], [id number] , [place] tel:[phone] [facility] cold (chief complaint) COPD w/ acute exacerbationCerv icalgiaOther cervical disc degeneration, unspecified cervical region Aug- 5 Shahzad Cobb. [address] [place] [address], [id number], [place]. tel:[phone] OFFICE/OUTPA TIENT VISIT, [facility], [address] [place] [address], [id number] , [place] tel: [phone] [facility] med refill (chief complaint) CervicalgiaDegen eration of cervical intervertebral discSpinal stenosis in cervical regionColostomy status 5 Shahzad Cobb. [address] [place] [address], [id number], [place]. tel:[phone] OFFICE/OUTPA TIENT VISIT, [facility], [address] [place] [address], [id number] , [place] tel: [phone] [facility] Medcation refills (chief complaint)St aple removal (chief complaint) AnxietyColostomy status 5 Shahzad Cobb. [address] [place] [address], [id number], [place]. [phone] OFFICE/OUTPA TIENT VISIT, [facility], [address] [place] [address], [id number] , [place] tel: [phone] [facility] med refill (chief complaint) Acute mesenteric ischemiaColostom y statusTrigger finger Apr- 5 Shahzad Cobb. [address] [place] [address], [id number], [place]. tel:[phone] OFFICE/OUTPA TIENT VISIT, [facility], [address] [place] [address], [id number] , [place] tel:[phone] [facility] Med refill (chief complaint) Abdomen painAttention to colostomyColosto my status 5 Shahzad Cobb. [address] [place], [place], [id number], [place]. tel:[phone] OFFICE/OUTPA TIENT VISIT, [facility], [address] [place], [place], [id number] , [place] tel: [phone] [facility] medication refill (chief complaint) Spinal stenosis in cervical regionColostomy status 5 Shahzad Cobb. [address] [place], [place], [id number], [place]. tel:[phone] OFFICE/OUTPA TIENT VISIT, [facility], [address] [place], [place], [id number] , [place] tel: [phone] [facility] med refill (chief complaint) Colostomy statusAbdomen painAcute bronchitis 5 Nanda Wilcox. [address] [place] [address], [id number], [place]. tel:[phone] OFFICE/OUTPA TIENT VISIT, [facility], [address] [place], [place], [id number] , [place] tel: [phone] [facility] dyspnea (chief complaint) COPDColostomy statusTobacco abuse 5 Shahzad Cobb. [address] [place], [place], [id number], [place]. tel:[phone] OFFICE/OUTPA TIENT VISIT, [facility], [address] [place], [place], [id number] , [place] tel: [phone] [facility] med f/u (chief complaint) Spinal stenosis in cervical regionCervicalgi a 5 Shahzad Cobb. [address] [place], [place], [id number], [place]. tel:[phone] [facility], [address] [place] [address], [id number] , [place] tel: [phone] [facility] referral (chief complaint) Colostomy statusAttention to colostomy 4 Erpenbeck REFLOW OPERATOR Jeri. [address] [place], [place], [id number], [place]. [phone] OFFICE/OUTPA TIENT VISIT, [facility], [address] [place], [place], [id number] , [place] tel: [phone] [facility] ER (chief complaint) OtherColostomy statusAnxietyDia betes Mellitus Type 2, UncomplicatedOth er and unspecified coagulation defects 4 Erpenbeck REFLOW OPERATOR Jeri. [address] [place], [place], [id number], [place]. tel:[phone] OFFICE/OUTPA TIENT VISIT, [facility], [address] [place], [place], [id number] , [place] tel: [phone] [facility] BP check (chief complaint) CervicalgiaSpina l stenosis in cervical regionDisplaceme nt of cervical intervertebral disc without myelopathy 4 Erpenbeck REFLOW OPERATOR Jeri. [address] [place], [place], [id number], [place]. [phone] OFFICE/OUTPA TIENT VISIT, [facility], [address] [place], [place], [id number] , [place] tel: [phone] [facility] review labs and MRI (chief complaint) Degeneration of cervical intervertebral discDiabetes Mellitus Type 2, UncomplicatedUns pecified essential hypertensionUrin maryellen incontinence, unspecifiedMixed HyperlipidemiaOv erweight 4 Hemmer Libby. [address] [place], [place], [id number], [place]. [facility], [address] [place], [place], [id number] , [place] tel: [phone] [facility] No Information 4 Hemmer Libby. [address] [place], [place], [id number], [place]. [facility], [address] [place], [place], [id number] , [place] tel: [phone] [facility] Potential Drug Interaction (chief complaint) Therapeutic Drug Monitoring 4 Hemkirill Souza. [address] [place], [place], [id number], [place]. OFFICE/OUTPA TIENT VISIT, [facility], [address] [place], [place], [id number] , [place] tel: [phone] [facility] neck pain (chief complaint)ea r discomfort (chief complaint) Degeneration of cervical intervertebral discGERDDiabetes Mellitus Type 2, UncomplicatedUri nary incontinence, unspecifiedUnspe cified essential hypertensionMixe d HyperlipidemiaBe nign neoplasm of thyroid glands 4 Hemkirill Souza. [address] [place], [place], [id number], [place]. [facility], [address] [place] [address], [id number] , [place] tel: [phone] [facility] Dental examination 4 Merrick DMD January. [address] [place], [place], [id number], [place]. tel:[phone] [facility], [address] [place], [place], [id number] , [place] tel: [phone] Dental Clinic Dental examination 4 [place] DMD January. [address] [place], [place], [id number], [place]. tel:[phone] [facility], [address] [place], [place], [id number] , [place] tel: [phone] [facility] Clinic Dental examination 0 4 [place] DMD January. [address] [place], [id number], [place]. tel:[phone] [facility], [address] [place], [place], [id number] , [place] tel:[phone] [facility] No Information Jul-2 0 Lamp Mayte. [address] [place], [place], [id number], [place]. tel:[phone] [facility], [address] [place] [address], [id number] , tel: [phone] [facility] No Information Sep-2 8-201 0 Visci DO Boone. [address] [place] [address], [id number], . tel:[phone] [facility], [address] [place] [address], [id number] , tel: [phone] [facility] No Information Dec-0 1-200 8 No Information [facility], [address] [place] [address], [id number] , tel: [phone] No Information Dec-0 1-200 8 Visci DO Boone. [address] [place] [address], [id number], . tel:[phone] Family History Family Member Type Diagnosis Age [...] hypertension Payers Payer name Insurance type Covered libertarian ID Fredy ferrer(s) Ale Medicare Advantage SERGO [id number] Medicaid [facility] [id number] Social History Type Description Quantity Date Captured [...] Tdap Vaccine. Due on 2022 due Goal H&P. Due on due Goal Mammogram. Due on due Goal Depression scree nancy. Due on due Goal Zoster vaccine ( ). Due on due Goal RECEIVING COORDINATOR exam. Due on due Goal Colonoscopy. Due [...] Pneumococcal vac cine. Due on due Goal RECEIVING COORDINATOR exam. Due on due Goal Foot exam. [...] due Goal ECG. Due on due Goal RECEIVING COORDINATOR exam. Due on due Goal Tdap. Due on due Goal Diabetes screening. Due on due Goal Mammogram. Due on due Goal Colonoscopy. Due on due Goal Influenza Vaccine. Due on No due Goal Breast exam. Due on due Goal Depression scree nancy. Due on due Goal Mammogram. Due on due Goal Tdap. Due on due Goal Hemoglobin A1C. Due on due Goal Breast exam. Due on due Goal Diabetes screening. Due on due Goal RECEIVING COORDINATOR exam. Due on due Goal Influenza Vaccine. Due on Oc due Goal Depression scree nancy. Due on due Goal Dental exam. Due on due Goal Foot exam. Due on due Goal ECG. Due [...] due Goal Mammogram. Due on due Goal RECEIVING COORDINATOR exam. Due on due Goal Depression scree [...] Goal Diabetes screening. Due on due Goal RECEIVING COORDINATOR exam. Due on due Goal Breast exam. [...] due Goal Colonoscopy. Due on due Goal RECEIVING COORDINATOR exam. Due on due Goal Depression scree [...] Goal Urine microalbumin. Due on due Goal RECEIVING COORDINATOR exam. Due on due Goal Breast exam. [...] Goal Dental exam. Due on due Goal RECEIVING COORDINATOR exam. Due on due Goal Pneumococcal vac [...] Goal Dental exam. Due on due Goal RECEIVING COORDINATOR exam. Due on due Goal Dilated eye exam. Due on March due Goal Tobacco cessation counseling completed Goal [...] Goal Dental exam. Due on due Goal RECEIVING COORDINATOR exam. Due on due Goal Urine microalbumin. [...] due Goal Mammogram. Due on due Goal RECEIVING COORDINATOR exam. Due on due Goal Foot exam. Due on due Goal Zoster vaccine ( ). Due on due Goal Pneumococcal vac cine. Due on due Goal Tdap. Due on due Goal Influenza Vaccine. Due on due Goal Tobacco cessation counseling completed Goal Tdap. Due on due Goal Depression scree nancy. Due on due Goal Breast exam. Due on due Goal Diabetes screening. Due on due Goal ECG. Due on due Goal H&P. Due on due Goal Mammogram. Due on due Goal Influenza Vaccine. Due on due Goal RECEIVING COORDINATOR exam. Due on due Goal Zoster vaccine ( ). Due on due Goal Colonoscopy. Due on due Goal Hemoglobin A1C. Due on due Goal Dental exam. Due on due Goal Urine microalbumin. Due on due Goal Pneumococcal vac cine. Due on due Goal Foot exam. Due on due Goal Dilated eye exam. Due on Nov due Goal Tobacco cessation counseling completed Goal [...] Goal Mammogram. Due on 0 due Goal RECEIVING COORDINATOR exam. Due on due Goal Tobacco cessation counseling completed Goal Zoster vaccine ( 1st). Due on due Goal Urine microalbumin. Due on due Goal Dilated eye exam. Due on Oct due Goal Pneumococcal vac cine. Due on due Goal RECEIVING COORDINATOR exam. Due on due Goal Foot exam. [...] nt education, guidance, and counseling completed Goal RECEIVING COORDINATOR exam. Due on due Goal Pneumococcal vac [...] Vaccine. Due on Oc t due Goal RECEIVING COORDINATOR exam. Due on due Goal Depression scree nancy. Due on due Goal Foot exam. Due on 0 due Goal Hemoglobin A1C. Due on due Goal Zoster vaccine ( 1st). Due on due Goal Dietary manageme nt education, guidance, and counseling completed Goal Tobacco cessation counseling completed Goal H&P. Due on due Goal Pneumococcal vac cine. Due on due Goal Dilated eye exam. Due on Jul due Goal Foot exam. Due on 0 due Goal RECEIVING COORDINATOR exam. Due on due Goal Tdap. Due on due Goal Mammogram. Due on 0 due Goal Breast exam. Due on due Goal Dental exam. Due on due Goal ECG. Due on due Goal Influenza Vaccine. Due on due Goal Hemoglobin A1C. Due on due Goal Colonoscopy. Due on 025 due Goal Urine microalbumin. Due on S due Goal Depression scree nancy. Due on due Goal Zoster vaccine ( ). Due on due Goal Diabetes screening. Due on due Goal Tobacco cessation counseling completed Goal Breast exam. Due on due Goal Hemoglobin A1C. Due on due Goal Dilated eye exam. Due on Jun due Goal Foot exam. Due on 0 due Goal Influenza Vaccine. Due on due Goal Mammogram. Due on 0 due Goal Dental exam. Due on due Goal RECEIVING COORDINATOR exam. Due on due Goal Urine microalbumin. Due on due Goal Pneumococcal vac cine. Due on due Goal Depression scree nancy. Due on due Goal Diabetes screening. Due on due Goal H&P. Due on due Goal Zoster vaccine ( ). Due on due Goal ECG. Due on due Goal Tdap. Due on due Goal Colonoscopy. Due on due Goal Dietary manageme nt [...] Goal Breast exam. Due on due Goal RECEIVING COORDINATOR exam. Due on due Goal Tobacco cessation counseling completed Goal Dilated eye exam. Due on Apr due Goal Mammogram. Due on 0 due Goal Foot exam. Due on 0 due Goal Dental exam. Due on due Goal Hemoglobin A1C. Due on due Goal Urine microalbumin. Due on due Goal Depression scree nancy. Due on due Goal Pneumococcal vac cine. Due on due Goal RECEIVING COORDINATOR exam. Due on due Goal Colonoscopy. Due on due Goal H&P. Due on due Goal Influenza Vaccine. Due on due Goal Tdap. Due on due Goal Breast exam. Due on due Goal ECG. Due on due Goal Diabetes screening. Due on due Goal Zoster vaccine ( ). Due on due Goal Dietary manageme nt education, guidance, and counseling completed Goal Tobacco cessation counseling completed Goal Dilated [...] vaccine ( ). Due on due Goal RECEIVING COORDINATOR exam. Due on due Goal Tdap. Due on due Goal Hemoglobin A1C. Due on due Goal Dietary manageme nt education, guidance, and counseling completed Goal Tobacco cessation counseling completed Goal Colonoscopy. Due on 025 due Goal Pneumococcal vac cine. Due on due Goal Influenza Vaccine. Due on due Goal Dilated eye exam. Due on March due Goal Depression scree nancy. Due on due Goal Dental exam. Due on due Goal RECEIVING COORDINATOR exam. Due on due Goal Hemoglobin A1C. [...] due Goal ECG. Due on due Goal RECEIVING COORDINATOR exam. Due on due Goal Breast exam. [...] Pneumococcal vac cine. Due on due Goal RECEIVING COORDINATOR exam. Due on due Goal ECG. Due [...] Goal Breast exam. Due on due Goal RECEIVING COORDINATOR exam. Due on due Goal Depression scree [...] due Goal H&P. Due on due Goal RECEIVING COORDINATOR exam. Due on due Goal Pneumococcal vac cine. Due on due Goal Dilated eye exam. Due on Sep due Goal H&P. Due on due Goal Mammogram. Due on 9 due Goal Influenza Vaccine. Due on due Goal Depression scree nancy. Due on due Goal ECG. Due on due Goal RECEIVING COORDINATOR exam. Due on due Goal Breast exam. [...] counseling completed Goal Urine microalbumin. Due on O due Goal Tdap. Due on due Goal RECEIVING COORDINATOR exam. Due on due Goal Depression scree [...] Diabetes screening. Due on A due Goal Dietary manageme nt education, guidance, and counseling completed Goal Tobacco cessation counseling completed Goal Mammogram. Due on 9 due Goal Breast exam. Due on due Goal Pneumococcal vac cine. Due on due Goal ECG. Due on due Goal Influenza Vaccine. Due on Oc due Goal Dental exam. Due on due Goal H&P. Due on due Goal RECEIVING COORDINATOR exam. Due on due Goal Diabetes screening. [...] Urine microalbumin. Due on A due Goal Depression scree nancy. Due on due Goal Colonoscopy. Due on due Goal Diabetes screening. Due on A due Goal H&P. Due on due Goal Breast exam. Due on due Goal Mammogram. Due on 9 due Goal RECEIVING COORDINATOR exam. Due on due Goal Tdap. Due on due Goal ECG. Due on due Goal Influenza Vaccine. Due on due Goal Tobacco cessation counseling completed Goal Dietary manageme nt education, guidance, and counseling completed Goal Depression scree nancy. Due on due Goal Pneumococcal vac cine. Due on due Goal RECEIVING COORDINATOR exam. Due on due Goal Dilated eye [...] Diabetes screening. Due on A due Goal Dietary manageme nt education, guidance, and counseling completed Goal Tobacco cessation counseling completed Goal Foot exam. Due on 9 due Goal Urine microalbumin. Due on due Goal Depression scree nancy. Due on due Goal RECEIVING COORDINATOR exam. Due on due Goal Influenza Vaccine. [...] Foot exam. Due on 9 due Goal RECEIVING COORDINATOR exam. Due on due Goal Depression scree [...] completed Goal Tdap. Due on due Goal H&P. Due on due Goal Influenza Vaccine. Due on due Goal Depression scree nancy. Due on due Goal Foot exam. Due on 9 due Goal Mammogram. Due on due Goal ECG. Due on due Goal Breast exam. Due on due Goal Diabetes screening. Due on due Goal RECEIVING COORDINATOR exam. Due on due Goal Colonoscopy. Due [...] due Goal H&P. Due on due Goal RECEIVING COORDINATOR exam. Due on due Goal Depression scree nancy. Due on due Goal Urine microalbumin. Due on A due Goal Colonoscopy. Due on due Goal ECG. Due on due Goal Foot exam. Due on 9 due Goal Breast exam. Due on due Goal Depression scree nancy. Due on due Goal Colonoscopy. Due on due Goal RECEIVING COORDINATOR exam. Due on due Goal Dental exam. [...] Foot exam. Due on 9 due Goal RECEIVING COORDINATOR exam. Due on due Goal Mammogram. Due [...] Diabetes screening. Due on A due Goal RECEIVING COORDINATOR exam. Due on due Goal Breast exam. [...] nt education, guidance, and counseling completed Goal RECEIVING COORDINATOR exam. Due on due Goal Depression scree [...] Goal Dental exam. Due on due Goal RECEIVING COORDINATOR exam. Due on due Goal ECG. Due [...] Goal Breast exam. Due on due Goal RECEIVING COORDINATOR exam. Due on due Goal Diabetes screening. [...] completed Goal ECG. Due on due Goal Urine microalbumin. Due on due Goal Foot exam. Due on 9 due Goal Colonoscopy. Due on due Goal Mammogram. Due on 9 due Goal Influenza Vaccine. Due on due Goal Depression scree nancy. Due on due Goal RECEIVING COORDINATOR exam. Due on due Goal Dental exam. Due on due Goal Pneumococcal vac cine. Due on due Goal Breast exam. Due on due Goal H&P. Due on due Goal Dilated eye exam. Due on Dec due Goal Tdap. Due on due Goal Diabetes screening. Due on due Goal Tobacco cessation counseling completed Goal Influenza Vaccine. Due on due Goal RECEIVING COORDINATOR exam. Due on due Goal Dental exam. [...] Goal Breast exam. Due on due Goal RECEIVING COORDINATOR exam. Due on due Goal BMP fasting. Due on 014 due Goal H&P. Due on due Goal Tdap. Due on due Goal Mammogram. Due on 8 due Goal Foot exam. Due on 8 due Goal Breast exam. Due on 018 due Goal Urine microalbumin. Due on M due Goal Dilated eye exam. Due on March due Goal Dental exam. Due on due Goal Pneumococcal vac cine. Due on due Goal FOBT. Due on due Goal ECG. Due on due Goal RECEIVING COORDINATOR exam. Due on due Goal Influenza Vaccine. [...] Goal Mammogram. Due on 8 due Goal RECEIVING COORDINATOR exam. Due on due Goal Pneumococcal vac cine. Due on due Goal Foot exam. Due on 8 due Goal Dental exam. Due on due Goal Breast exam. Due on due Goal FOBT. Due on due Goal Urinalysis. Due on 14 due Goal RECEIVING COORDINATOR exam. Due on due Goal ECG. Due [...] due Goal ECG. Due on due Goal RECEIVING COORDINATOR exam. Due on due Goal Dental exam. Due on 018 due Goal Mammogram. Due on 8 due Goal Breast exam. Due on 018 due Goal Foot exam. Due on 8 due Goal Urine microalbumin. Due on due Goal Urinalysis. Due on 14 due Goal Pneumococcal vac cine. Due on due Goal BMP fasting. Due on 014 due Goal Dilated eye exam. Due on Dec due Goal Tdap. Due on due Goal Tobacco cessation counseling completed Goal RECEIVING COORDINATOR exam. Due on due Goal Dilated eye [...] due Goal H&P. Due on due Goal RECEIVING COORDINATOR exam. Due on due Goal Dilated eye exam. Due on Aug due Goal Pneumococcal vac cine. Due on due Goal Foot exam. Due on 7 due Goal Urine microalbumin. Due on O due Goal H&P. Due on due Goal Dental exam. Due on due Goal Mammogram. Due on 7 due Goal Breast exam. Due on due [...] Goal Urine microalbumin. Due on due Goal RECEIVING COORDINATOR exam. Due on due Goal Pneumococcal vac cine. Due on due Goal ECG. Due on due Goal Dilated eye exam. Due on Jul due Goal Tobacco cessation counseling completed Goal Urine microalbumin. Due on A due Goal Dilated eye exam. Due on Jun due Goal Dental exam. Due on due Goal H&P. Due on due Goal Tdap. Due on due Goal Foot exam. Due on due Goal Influenza Vaccine. Due on due Goal Pneumococcal vac cine. Due on due Goal Colonoscopy. Due on due Goal FOBT. Due on due Goal Urinalysis. Due on 14 due Goal Mammogram. Due on due Goal RECEIVING COORDINATOR exam. Due on due Goal BMP fasting. Due on due Goal Breast exam. Due on due Goal ECG. Due on due Goal Tobacco cessation counseling completed Goal Pap/HPV testing. Due on due Goal Mammogram. Due on due Goal TD Vaccine. Due on 17 due Goal H&P. Due on due Goal Tdap. Due on due Goal Influenza Vaccine. Due on due Goal Sigmoidoscopy. Due on due Goal FOBT. Due on due Goal Breast exam. Due on due Goal Colonoscopy. Due on due Goal RECEIVING COORDINATOR exam. Due on due Goal Urinalysis. Due [...] Goal Breast exam. Due on due Goal RECEIVING COORDINATOR exam. Due on due Goal H&P. Due [...] Goal Mammogram. Due on 6 due Goal RECEIVING COORDINATOR exam. Due on due Goal Colonoscopy. Due on due Goal FOBT. Due on due Goal Urinalysis. Due on 14 due Goal RECEIVING COORDINATOR exam. Due on due Goal H&P. Due [...] Goal BMP fasting. Due on due Goal RECEIVING COORDINATOR exam. Due on due Goal Mammogram. Due on 6 due Goal Lipid Panel. Due on due [...] due Goal Colonoscopy. Due on due Goal RECEIVING COORDINATOR exam. Due on due Goal Influenza Vaccine. [...] due Goal Sigmoidoscopy. Due on due Goal RECEIVING COORDINATOR exam. Due on due Goal Lipid Panel. Due on due Goal Breast exam. Due on due Goal Urinalysis. Due on 14 due Goal FOBT. Due on due Goal Mammogram. Due on 6 due Goal Colonoscopy. Due on due Goal TD Vaccine. Due on 16 due Goal RECEIVING COORDINATOR exam. Due on due Goal BMP fasting. Due on due Goal Sigmoidoscopy. Due on due Goal Influenza Vaccine. Due on due Goal H&P. Due on due Goal Tdap. Due on due Goal Pap/HPV testing. Due on due Goal Mammogram. Due on 6 due Goal RECEIVING COORDINATOR exam. Due on due Goal FOBT. Due on due Goal Lipid Panel. Due on 015 due Goal TD Vaccine. Due on 16 due Goal Colonoscopy. Due on 016 due Goal Breast exam. Due on due [...] Goal Influenza Vaccine. Due on due Goal RECEIVING COORDINATOR exam. Due on due Goal TD Vaccine. Due on 16 due Goal BMP fasting. Due on due Goal TD Vaccine. Due on 16 due Goal Lipid Panel. Due on due Goal Mammogram. Due on due Goal Colonoscopy. Due on due Goal FOBT. Due on due Goal Breast exam. Due on due Goal RECEIVING COORDINATOR exam. Due on due Goal Urinalysis. Due on 14 due Goal H&P. Due on due Goal Tdap. Due on due Goal Influenza Vaccine. Due on due Goal Sigmoidoscopy. Due on due Goal Pap/HPV testing. Due on due Goal RECEIVING COORDINATOR exam. Due on due Goal Influenza Vaccine. [...] Goal Pap/HPV testing. Due on due Goal RECEIVING COORDINATOR exam. Due on due Goal H&P. Due [...] Goal BMP fasting. Due on due Goal RECEIVING COORDINATOR exam. Due on due Goal Sigmoidoscopy. Due on due Goal Urinalysis. Due on 14 due Goal Pap/HPV testing. Due on due Goal H&P. Due on due Goal Influenza Vaccine. Due on due Goal Urinalysis. Due on due Goal Breast exam. Due on due Goal Lipid Panel. Due on due Goal Depression scree nancy. Due on due Goal Tdap. Due on due Goal RECEIVING COORDINATOR exam. Due on due Goal FOBT. Due on due Goal TD Vaccine. Due on 15 due Goal Mammogram. Due on 5 due Goal Colonoscopy. Due on due Goal Sigmoidoscopy. Due on due Goal BMP fasting. Due on due Goal RECEIVING COORDINATOR exam. Due on due Goal Breast exam. Due on due Goal Tdap. Due on due Goal Influenza Vaccine. Due on due Goal H&P. Due on due Goal FOBT. Due on due Goal Mammogram. Due on 5 due Goal Lipid Panel. Due on 015 [...] TD Vaccine. Due on 15 due Goal RECEIVING COORDINATOR exam. Due on due Goal Depression scree nancy. Due on due Goal Urinalysis. Due on 14 due Goal Influenza Vaccine. Due on due Goal Colonoscopy. Due on 015 due Goal BMP fasting. Due on 014 due Goal H&P. Due on due Goal Mammogram. Due on 5 due Goal Breast exam. Due on due Goal FOBT. Due on due Goal Pap/HPV testing. Due on due Goal H&P. Due on due Goal Breast exam. Due on 015 due Goal RECEIVING COORDINATOR exam. Due on due Goal TD Vaccine. Due on 15 due Goal Influenza Vaccine. Due on due Goal BMP fasting. Due on 014 due Goal Pap/HPV testing. Due on due Goal Tdap. Due on due Goal Sigmoidoscopy. Due on due Goal Colonoscopy. Due on 015 due Goal FOBT. Due on due Goal Depression scree nancy. Due on due Goal Urinalysis. Due on 14 due Goal Mammogram. Due on 5 due Goal Depression scree nancy. Due on due Goal H&P. Due on due Goal Urinalysis. Due on 14 due Goal Influenza Vaccine. Due on due Goal BMP fasting. Due on 014 due Goal TD Vaccine. Due on 15 due Goal Pap/HPV testing. Due on due Goal Sigmoidoscopy. Due on due Goal Breast exam. Due on 015 due Goal Tdap. Due on due Goal RECEIVING COORDINATOR exam. Due on due Goal Mammogram. Due on 5 due Goal Colonoscopy. Due on 015 due Goal FOBT. Due on due Goal Sigmoidoscopy. Due on due Goal FOBT. Due on due Goal Pap/HPV testing. Due on due Goal Depression scree nancy. Due on due Goal Urinalysis. Due on 14 due Goal Mammogram. Due on 5 due Goal H&P. Due on due Goal RECEIVING COORDINATOR exam. Due on due Goal Tdap. Due [...] due Goal Tdap. Due on due Goal RECEIVING COORDINATOR exam. Due on due Goal Pap/HPV testing. Due on due Goal Mammogram. Due on 5 due Goal Sigmoidoscopy. Due on due Goal BMP fasting. Due on 014 due Goal Influenza Vaccine. Due on due Goal RECEIVING COORDINATOR exam. Due on due Goal Urinalysis. Due [...] To: Sal Muse [address] [place], [place] [id number] Ordered: Referrals: Allopathic & Osteopathic Physicians : Orthopaedic Surgery. Sal [facility]. Location: [facility]. Consult Appointment date/timeframe: 09/03/2017 ordered Referral Ordered: [...] Referral Ordered: referred to Clinical Nurse Specialist [facility] today (related to Attention to colostomy) ordered Referral Ordered: Urology. 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 [...] completed, last filled Lorazepam 06/06, Lyrica 06/06, [place] 06/05TGrodi [facility] Med Refills Pt here today fo r medication refills. PT states she fell Thursday and her L hand is swollen. Denies any pain. OARRS completed, last filled [place], Ativan & Lyrica 05/08TGrodi [facility] Musculoskeletal pain Onset: sudd en. 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 [...] Ativan 12/19, Lyrica 12/17, Flexeril 12/02 & [place] 11/20TGrodi LPNPt states she is just tired, pt son who she lives with has his son that is 3 months old and not sleeping thought the [facility] Med Refills Pt here today fo [...] work. OARRS completed, last filled Ativan 10/23, [place] 10/31 & Flexeril 10/31TGrodi JOINT CLEANING MACHINE OPERATOR GERD The severity of the problem is [...] refills. OARRS completed, last filled Ativan 09/25, [place] & Flexeril 09/05TGrodi JOINT CLEANING MACHINE OPERATOR diabetes The problem is s table. Risk [...] OARRS completed, last filled Ativan 08/26 & [place] 08/08TGrodi JOINT CLEANING MACHINE OPERATOR Med Refills Pt here today fo r medication refills. We discussed Pt getting tested genes for coronary artery disease and what pt should do about it otherwise pt is doing well. 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 [...] completed, last filled Lyrica & Ativan 05/27, [place] 05/18, & Ambien 05/14TGrodi JOINT CLEANING MACHINE OPERATOR diabetes The problem is s table. Risk [...] completed, last filled Ativan 04/28, Lyrica 04/28, [place] 04/16TGrodi JOINT CLEANING MACHINE OPERATOR GERD The severity of the problem is [...] back pain and dizziness, states that the [place] is no longer helping the pain. Pt [...] 03/10, Ativan, Ambien & Lyrica 03/02, & [place] 03/01TGrodi JOINT CLEANING MACHINE OPERATOR Anxiety This is a follow up visit. [...] swelling, redness and pain. Pt states the [place] helps with the pain but she is worried about infection. Pt denies any other problems or concerns.Pt requesting refills of [place] 5mg last filled 11/07 and Ativan 0.5mg [...] completed, last filled Lyrica 10/27, Flexeril 10/27, [place] & Ativan 09/27TGjoyce HOPPER Rash The patient [...] provide oral swab. OARRS completed, last filled [place] 09/27, Ativan 09/27 & Lyrica 09/28. [facility] Rapid urine drug screen performed, pt + for NOTHING ALL NEGATIVE. Asked patient when she last took her medication and she stated she last took Ativan yesterday & [place] 4 days ago. TGrodi [facility] Med refills Pt here today fo [...] last filled Flexeril 09/19 & 09/08, Lyrica, [place] & Ativan 08/31[facility] D[facility] Onset was sudden . The [...] if she needs a refill on her [place] and she said, yeah might as well . I asked patient to provide a urine today and she said she can not pee. OARRS completed, last filled Flexeril 08/26, Ativan 08/03, & [place] 08/03TGrodi JOINT CLEANING MACHINE OPERATOR Dizziness Onset was sudden . Severity is [...] Flexeril 07/15, Lyrica 06/29, Ativan 06/22 & [place] 06/22rodi [facility] DRUG SCREEN Pt could not uri ion for a UDS. Pt had blood drawn. First attempt successful in R antecubital. Pt tolerated well. [facility]/U Pt here today fo [...] filled Flexeril 05/27 & 06/09, Lyrica 05/25, [place] & Ativan 05/11TGrod LPNPt states that beside the no energy she feels ok drug screen Pt could no go t o the bathroom so did a blood draw for a drug screen. First attempt successful in R antecubital. Pt tolerated well no issues or concerns. [facility] follow up Pt here today fo r a follow up & medication refills. Pt states she had her INR drawn today and it was 1.9OARRS completed, last filled Flexeril 04/30, Lyrica 04/25, Ativan 04/13, & [place] 03/11TGrodi [facility] hypertension Comorbid conditi ons include diabetes [...] completed, last filled Lyrica 02/16, Ativan, & [place] /Grodi LPNASKED PATIENT IF SHE COULD PROVIDE A URINE AND SHE SAID NOT RIGHT NOW. SHE WILL NEED TO PROVIDE A URINE OR GET A BLOOD DRAW. ,above was reviewed and agreed with Medication refills Patient here for Medication refills. Patient is requesting refills on Wellbutrin, Ativan and [place]. A1C completed today. No other issues at this time. Also patient did agree to reschedule breast biopsy. Patent was advised to stop blood thinners for 5 days. Patient is scheduled 02/09/19 at 10am at the [facility]. OARRS completed. last fills [...] well. She states she does not need [place] cause she still has some. OARRS completed, last filled, Ativan 12/22 for 15 day supply, [place] & Lyrica 12/22TGrodi LPNPt states she get [...] this needs discussed. OARRS completed, last filled [place], Ativan, 11/05, Lyrica 11/11 & got Percocet [...] Pt here for medi cation refill on [place] and Ativan. Pt. c/o back pain 08/11. [...] syrup cough drops, tylenol. Sandra Guthrie RN. [place]: Finished ten day s if Keflex. Coughing [...] called. Jose Margarito: Coughing for [address] [place]. No hemoptysis or shortness of breath or chest pain. Has a nebulizer at home. [place]: States she was t aking Gabapentin for [...] would like 90 days supply if possible. [facility] follow up Patient states s he went [...] coumadin clinic and Coreg managed by [facility] Dr. Rodriguez. Patient needs [...] Patient has no other issues at this time.Ruhci Johns. knee pain Location: knee. Additional information: [...] is looking into another psych provider in [place]. RUCHI Figueroa knee pain Location: knee. Additional [...] april to see new psych doctor in [place]. Patient has no other issues at this [...] are due for refill. She went to [facility] on 10/15/15 and starts PT on 11/07/15. [...] Metoprolol, & Clopidogel. Oscar Arias dyspnea Pt. [facility] was i [facility] in for emergency colectomy. While inpt. was using nebulizers. Was not given Rx at time of d/c and has been using sister's neb at home with relief of dyspnea. Neb meds currently using are Albuterol and Ipratropium [place] 2 - 3 times/day. Hayden Casas R.N. med f/u Client here to f /u on meds. Also [facility] has a rash around her stoma. [facility] has a Colonoscopy sched. [...] if desires results. 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
--- OUTSIDE RECORDS SUMMARY | 2024-09-16 11:00 | XMS_ITS ---
Author Organization [facility] Address [address] [facility] [place] [address] Care Team Providers Care Fox Farmer Name Role Phone Darcie Lacey Primary Care Provider Janna Jackson Unavailable [phone] REASON FOR VISIT chronic f/u Encounters Encounter Location Date Provider Diagnosis [facility] [address] [facility] [facility] [place] [address] 09/16/2024 Darcie Lacey Plan Of Treatment No Information Progress Notes * KING MORENO ADOB:[birth year] (64 yo F)Acc No.[id number]:09/16/2024 Progress Notes Patient: KING KWONG Appointment Provider: Juanita LACEY MD :1960 A ge:63 Y S ex:Female Date:09/16/2024 Address:[address] [place], [place] [id number] Subjective: * Chief Complaints: * 1 . Chronic f/u. * Medical History: Objective: * Vitals: Assessment: Plan: * Treatment: * Images: * Electronic signature of Sherly Lacey MD on 03/24/2025 at 11:21 PM EDT Sign off status: Pending * Appointment Provider: Juanita LACEY MD Date: 11/16/2023 Generated for Gordoni ng/Facliftong/eTransmitting on: 0 03/24/2025 11:21 PM EDT
--- OUTSIDE RECORDS SUMMARY | 2024-12-07 10:15 | XMS_ITS ---
Author Organization [facility] es Address [address] [place] [address] Care Team Providers Care Bill Distributor Name Role Phone Darcie Garcia Primary Care Provider Janna Jackson Unavailable [phone] Nicole Benson Unavailable [phone] REASON FOR VISIT 3 month f/u Encounters Encounter Location Date Provider Diagnosis [facility] [address] [place] [address] 12/07/2024 Nicole Benson Plan Of Treatment No Information Progress Notes * KING MORENO ADOB:[birth year] (64 yo F)Acc No.[id number]:12/07/2024 Behavioral Health Patient: KING KWONG Appointment Provider: Luz Benson :1960 A ge:64 Y S ex:Female Date:12/07/2024 Address:[address] [place], [place] [id number] Pcp:Darcie Garcia Subjective: * Chief Complaints: * 1 . 3 month f/u. * Medical History: Objective: * Vitals: Assessment: Plan: * Treatment: * Images: * Electronic signature of KRISTIAN Hercules on 03/24/2025 at 11:21 PM EDT Sign off status: Pending * Appointment Provider: Luz Benson Date: 12/07/2024 Generated for Brandon williamson/Maverick/eTransmitting on: 0 03/24/2025 11:21 PM EDT
--- OUTSIDE RECORDS SUMMARY | 2025-03-09 09:35 | XMS_ITS | Encounter Summary ---
Author Organization [facility] Address [address] [place] [address] Phone Care Team Providers Care Search Manager Name Role Phone June Preston MD Unavailable Conchita Aden MD Primary Care Provider [phone] Reason for Referral * Imaging (Routine) - Pending Review Specialty Diagnoses / Procedures Referred By Aleena lomeli Referred To Contact Cardiology Diagnoses ICD (implantable cardioverter-defibrillator) in place Paroxysmal ventricular tachycardia Procedures Cardiac Device Check - Remote June Preston MD [address] [address] Phone: tel: fax: Referral ID Status Reason Start Date Expiration Date Visits Requested Visits Authorized [id number] Pending Review Perform Procedure 10/05/2024 10/05/2025 1 1 Reason for Visit * Imaging (Routine) - Pending Review Specialty Diagnoses / Procedures Referred By Aleena lomeli Referred To Contact Cardiology Diagnoses ICD (implantable cardioverter-defibrillator) in place Paroxysmal ventricular tachycardia Procedures Cardiac Device Check - Remote June Preston MD [address] [facility], [address] [address] Phone: tel: fax: Referral ID Status Reason Start Date Expiration Date Visits Requested Visits Authorized [id number] Pending Review Perform Procedure 10/05/2024 10/05/2025 1 1 Encounter Details Date Type Department Care Team (Latest Contact Info) Description 03/09/2025 9:35 AM EDT - 03/09/2025 11:59 PM EDT Hospital Encounter [address] [address] ICD (implantable cardioverter-defibr illator) in place; Paroxysmal ventricular tachycardia Discharge Disposition: Home Social History Tobacco Use Types Packs/Day Years Used Date Smoking Tobacco: Every Day Cigarettes 0.5 50.4 Started: 1974 Smokeless Tobacco: Never Alcohol Use Standard Drinks/Week Comments Not Currently 0 (1 standard drink = 0.6 oz pur e alcohol) B1300 Health Literacy Answer Date Recor ded How often do you need to hav e someone help you when you read instructions, pamphlets, or other written material from your doctor or pharmacy? Never 01/08/2025 [facility] Utilities Answer Date Recorded In the past 12 months has e electric, gas, oil, or water No Chains threatened to shut off services in your home? No 01/08/2025 Humiliation, Afraid, Rape, and Kick questionnair e Answer Date Recorded Within the last year, have y ou been afraid of your partner or ex-partner? Patient declined 01/08/2025 Within the last year, have y ou been humiliated or emotionally abused in other ways by your partner or ex-partner? Patient declined 01/08/2025 Within the last year, have y ou been kicked, hit, slapped, or otherwise physically hurt by your partner or ex-partner? Patient declined 01/08/2025 Within the last year, have y ou been raped or forced to have any kind of sexual activity by your partner or ex-partner? Patient declined 01/08/2025 Social Connection and Isolation Panel [NHANES] A nswer Date Recorded In a typical week, how many times do you talk on the phone with family, friends, or neighbors? Once a week 01/08/2025 How often do you get togethe r with friends or relatives? Once a week 01/08/2025 How often do you attend alevism or confucianism serv ices? Patient declined 01/08/2025 Do you belong to any clubs o r organizations such as alevism groups, unions, fraternal or athletic groups, or school groups? Patient declined 01/08/2025 How often do you attend meet ings of the clubs or organizations you belong to? Patient declined 01/08/2025 Are you , , di vorced, , never , or living with a partner? Patient declined 01/08/2025 AUDIT-C Answer Date Recorded Q1: How often do you have a drink containing alcohol? Never 01/08/2025 Q2: How many drinks containi ng alcohol do you have on a typical day when you are drinking? Patient does not drink Q3: How often do you have si x or more drinks on one occasion? Never 01/08/2025 Overall Financial Resource Strain (CARDIA) Answe r Date Recorded How hard is it for you to pa y for the very basics like food, housing, medical care, and heating? Not very hard 01/08/2025 PHQ-2 Answer Date Recorded Patient Health Questionnaire-2 Score 0 01/08/2025 [facility] - Occupational Stress Questionnaire Answer Date Recorded Do you feel stress - tense, restless, nervous, or anxious, or unable to sleep at night because your mind is troubled all the time - these days? Not at all 01/08/2025 Exercise Vital Sign Answer Date Recorde d On average, how many days pe r week do you engage in moderate to strenuous exercise (like a brisk walk)? 0 days 01/08/2025 On average, how many minutes do you engage in exercise at this level? 0 min 01/08/2025 Hunger Vital Sign Answer Date Recorded Within the past 12 months, y ou worried that your food would run out before you got the money to buy more. Never true 01/09/20 25 Within the past 12 months, t he food you bought just didn't last and you didn't have money to get more. Never true 01/08/2025 PRAPARE - Transportation Answer Date Re corded In the past 12 months, has l ack of transportation kept you from medical appointments or from getting medications? No 07/2025 In the past 12 months, has l ack of transportation kept you from meetings, work, or from getting things needed for daily living? No 01/08/2025 Housing Stability Vital Sign Answer Mookie e Recorded In the last 12 months, was t here a time when you were not able to pay the mortgage or rent on time? No 02/16/2024 In the last 12 months, how many places have you lived? 1 02/16/2024 In the last 12 months, was t here a time when you did not have a steady place to sleep or slept in a group home (including now)? No 02/16/2024 Housing Stability Vital Sign Answer Mokoie e Recorded In the last 12 months, was t here a time when you were not able to pay the mortgage or rent on time? No 01/08/2025 In the past 12 months, how m any times have you moved where you were living? 1 01/08/2025 At any time in the past 12 m [facility], were you homeless or living in a group home (including now)? No 01/08/2025 Comments No Sex and Gender Information Value Date Recorded Sex Assigned at Not on file Legal Sex Female 10:34 AM EST Gender Identity Not on file Sexual Orientation Not on file COVID-19 Exposure Response Date Recorded In the last 10 days, have aubrey u been in contact with someone who was confirmed or suspected to have Coronavirus/COVID-19? No / Unsure 02/07/2025 11:11 AM EDT documented as of this encounter Medications at Time of Discharge albuterol 90 mcg/actuation inhalerIndications:I CD (implantable cardioverter-defibri llator) discharge Inhale 2 puffs every 6 hours if needed for wheezing. 18 g 11 01/13/2025 amiodarone (Pacerone) 200 mg tabletIndications:Pa roxysmal ventricular tachycardia Take 1 tablet (200 mg) by mouth once daily. Do not fill before January 28, 2025. 90 tablet 1 01/28/2025 6 aspirin 81 mg EC tabletIndications:At herosclerosis of [place] coronary artery of [place] heart without angina pectoris Take 1 tablet (81 mg) by mouth 2 times a week. 11/14/2024 6 benzocaine-menthol (Cepastat Sore Throat) lozengeIndications:I CD (implantable cardioverter-defibri llator) discharge Dissolve 1 lozenge in the mouth every 2 hours if needed for sore throat. 40 lozenge 01/13/2025 Invokana 300 mgIndications:Type 2 diabetes mellitus without complication, without long-term current use of insulin,Atherosclero sis of [place] coronary artery of [place] heart without angina pectoris,Chronic systolic CHF (congestive heart failure) Take 1 tablet (300 mg) by mouth once daily in the morning. Take before meals. 90 tablet 3 11/21/2024 lansoprazole (Prevacid) [address] capsule Take 1 capsule (30 mg) by mouth once daily. lisinopril 2.5 mg tabletIndications:Es sential hypertension Take 1 tablet (2.5 mg) by mouth once daily. Take in the evening 90 tablet 3 09/27/2024 5 loperamide (Imodium) 2 mg capsuleIndications:I CD (implantable cardioverter-defibri llator) discharge Take 1 capsule (2 mg) by mouth 4 times a day as needed for diarrhea. 30 capsule 01/13/2025 magnesium oxide (Mag-Ox) 400 mg (241.3 mg magnesium) tablet Take 1 tablet (400 mg) by mouth 2 times a day. 07/28/2023 meclizine (Antivert) 25 mg tablet Take 1 tablet (25 mg) by mouth 2 times a day. melatonin 5 mg tablet Take 1 tablet (5 mg) by mouth once daily at bedtime. metoprolol succinate XL (Toprol-XL) 25 mg 24 hr tabletIndications:VT (ventricular tachycardia) (Multi) Take 2 tablets (50 mg) by mouth once daily. 60 tablet 11 01/13/2025 6 oxybutynin XL (Ditropan-XL) 10 mg 24 hr tablet Take 1 tablet (10 mg) by mouth once daily. 03/17/2023 QUEtiapine (SEROquel) 200 mg tablet Take 1 tablet (200 mg) by mouth once daily at bedtime. 06/27/2023 ranolazine (Ranexa) 500 mg 12 hr tabletIndications:At herosclerosis of [place] coronary artery of [place] heart without angina pectoris Take 1 tablet (500 mg) by mouth 2 times a day. 180 tablet 3 12/20/2024 rivaroxaban (Xarelto) 10 mg tabletIndications:Ve ntricular tachycardia (Multi),Pulmonary embolism, unspecified chronicity, unspecified pulmonary embolism type, unspecified whether acute cor pulmonale present (Multi),High risk medication use Take 1 tablet (10 mg) by mouth once daily. 90 tablet 3 11/11/2024 rosuvastatin (Crestor) 20 mg tabletIndications:At herosclerosis of [place] coronary artery of [place] heart without angina pectoris,Mixed hyperlipidemia Take 1 tablet (20 mg) by mouth once daily. 90 tablet 3 11/11/2024 spironolactone (Aldactone) 25 mg tabletIndications:Es sential hypertension Take 1 tablet (25 mg) by mouth once daily. 90 tablet 3 11/15/2024 documented as of this encounter Plan of Treatment Upcoming Encounters Date Type Department Care Team (Latest Contact Info) Description 04/03/2025 1:00 PM EDT Hospital Encounter [facility] [address] [place] [address] 04/14/2025 10:30 AM EDT Hospital Encounter [facility] [address] [place] [address] [place] [address] Kervin Fair MD [address] [place], [place] [id number] Ventricular tachycardia (Multi) 04/14/2025 12:00 PM EDT - 04/14/2025 4:00 PM EDT Surgery [facility] [address] [place] [address] Kervin Fair MD [address] [place], [place] [id number] [place] [[address] (CPT )] 07/14/2025 1:00 PM EDT Office Visit [facility] [address] [facility] [address] [place] [address] Oscar Rodriguez MD [address] [facility] [address] [place] [address] 09/26/2025 12:20 PM EST Appointment [facility] [address] [place] [address] 09/26/2025 1:00 PM EST Office Visit [facility] [address] [facility] [address] [place] [address] June Preston MD [address] [facility] Office [facility] [address] [place] [address] documented as of this encounter Procedures Procedure Name Priority Date/Time Associated Diagnosis Comments CARDIAC DEVICE CHECK - REMOTE - ICD Routine 03/09/2025 9:38 AM EDT ICD (implantable cardioverter-defibrilla tor) in place Paroxysmal ventricular tachycardia documented in this encounter Results * CARDIAC DEVICE CHECK - REMOTE - ICD (03/09/2025 9:38 AM EDT) Anatomical Region Laterality Modality Monitor/Device 03/09/2025 6:00 AM EDT us June Preston MD CV IMPLANTABLE CARDIAC DEVICE AK OCEDURES Final Result documented in this encounter Visit Diagnoses Diagnosis Ventricular tachycardia (CMS/HCC)- Primary Paroxysmal ventricular tachycardia ICD (implantable cardioverter-defibrillator) in place Paroxysmal ventricular tachycardia Ventricular tachycardia (Multi) Paroxysmal ventricular tachycardia documented in this encounter Additional Health Concerns Assessment Noted Time PHQ-9 Depression Total Score: 9 01/23/20 22 11:33 AM EDT A fall risk assessment has been complete d for the patient 03/01/2024 12:30 PM EDT documented as of this encounter Care Teams Search Manager Relationship Specialty Start Date End Date Conchita Aden MD [address] [place] [address] [address] [place] [address] PCP - General Family Medicine 11/11/24 June Preston MD [address] [facility] Office [facility], [facility] [address] [place] [address] Hearing Aide Technician Electrophysiology 09/13/24 documented as of this encounter
--- OUTSIDE RECORDS SUMMARY | 2025-03-24 23:21 | XMS_ITS | Encounter Summary ---
Author Organization [facility] Address [address] [place] [address] Phone Care Team Providers Care Quality Control Representative Name Role Phone Generic Provider, No Assigned Pcp Primary Car e Provider Unavailable Diane Min RN Unavailable Unavailable June Preston MD Unavailable Conchita Aden MD Primary Care Provider [phone] Diane Min RN Unavailable Unavailable Encounter Details Date Type Department Care Team (Late st Contact Info) Description 11/02/2024 Scanned Document [facility] [address] [place] [address] Scanning, Generic Provider Social History Tobacco Use Types Packs/Day Years Used Date Smoking Tobacco: Every Day Cigarettes Smokeless Tobacco: Never Alcohol Use Standard Drinks/Week Comments Not Currently 0 (1 standard drink = 0.6 oz pur e alcohol) AUDIT-C Answer Date Recorded Q1: How often do you have a drink containing alcohol? Never 09/01/2024 Q2: How many drinks containi ng alcohol do you have on a typical day when you are drinking? Patient does not drink Q3: How often do you have si x or more drinks on one occasion? Never 09/01/2024 Overall Financial Resource Strain (CARDIA) Answe r Date Recorded How hard is it for you to pa y for the very basics like food, housing, medical care, and heating? Not very hard 09/01/2024 PHQ-2 Answer Date Recorded Patient Health Questionnaire-2 Score 0 09/01/2024 PRAPARE - Transportation Answer Date Re corded In the past 12 months, has l ack of transportation kept you from medical appointments or from getting medications? No 08/04 In the past 12 months, has l ack of transportation kept you from meetings, work, or from getting things needed for daily living? No 09/01/2024 Housing Stability Vital Sign Answer Mookie e [...] place to sleep or slept in a skilled nursing (including now)? No 02/16/2024 Housing Stability Vital Sign Answer Mookie e Recorded In the last 12 months, was t here a time when you were not able to pay the mortgage or rent on time? No 09/01/2024 In the past 12 months, how m any times have you moved where you were living? 0 09/01/2024 At any time in the past 12 m [facility], were you homeless or living in a skilled nursing (including now)? No 09/01/2024 Comments No Sex and Gender Information Value Date Recorded Sex Assigned at Not on file Legal Sex Female 10:34 AM EST Gender Identity Not on file Sexual Orientation Not on file documented as of this encounter Plan of Treatment Upcoming Encounters Date Type Department Care Team (Latest Contact Info) Description 04/03/2025 1:00 PM EDT Hospital Encounter [facility] [address] [place] [address] 04/14/2025 10:30 AM EDT Hospital Encounter [facility] [address] [place] [address] Kervin Fair MD [facility] [place] [address] Ventricular tachycardia (Multi) 04/14/2025 12:00 PM EDT - 04/14/2025 4:00 PM EDT Surgery [facility] [place] [address] [place] [address] Kervin Fair MD [address] [place] [address] [place] [[address] (CPT )] 07/14/2025 1:00 PM EDT Office Visit [facility] [address] [facility] [address] [place] [address] Oscar Rodriguez MD [address] [facility], [address] [place] [address] 09/26/2025 12:20 PM EST Appointment [facility] [address] [place] [address] 09/26/2025 1:00 PM EST Office Visit [facility] [address] [facility] [address] [place] [address] June Preston MD [address] [facility] Office Bldg, [address] [place] [address] documented as of this encounter Visit Diagnoses Not on filedocumented in this encounter Additional Health Concerns Infection Onset Date Last Indicated Resolved Time COVID-19 Rule-Out 01/08/2025 01/08/2025 01/08/2025 11:23 PM EDT Influenza Rule-out 01/08/2025 01/08/2025 11:23 PM EDT RSV Rule-out 01/08/2025 01/08/2025 01/08/2025 11:2 3 PM EDT Influenza 01/08/2025 01/08/2025 01/15/2025 5:23 AM EDT Gastrointestinal Rule-Out 01/11/2025 01/11/2025 7:00 AM EDT Assessment Noted Time PHQ-9 Depression Total Score: 9 01/23/20 22 11:33 AM EDT A fall risk assessment has been complete d for the patient 03/01/2024 12:30 PM EDT documented as of this encounter Care Teams Quality Control Representative Relationship Specialty Start Date End Date Generic Provider, No Assigned Pcp, [place] [address] PCP - General Hot Sealing Machine Operator 08/08/24 11/10/24 Conchita Aden MD [address] [place] [address] [place] [address] PCP - General Family Medicine 11/11/24 Diane Min RN Care Bell Cleaner 09/05/24 12/06/24 Juen Preston MD [address] [facility] B[address]g, [address] [place] [address] Tool Programmer Electrophysiology 09/13/24 Diane Min, economics instructorBell Cleaner 01/16/25 01/31/25 documented as of this encounter
--- OUTSIDE RECORDS SUMMARY | 2025-03-24 23:21 | XMS_ITS | Encounter Summary ---
Author Organization [facility] Address [address] [place] [address] Phone Care Team Providers Care Paper Ruler Name Role Phone Generic Provider, No Assigned Pcp Primary Car e Provider Unavailable Diane Min RN Unavailable Unavailable June Preston MD Unavailable Conchita Aden MD Primary Care Provider [phone] Diane Min RN Unavailable Unavailable Encounter Details Date Type Department Care Team (Late st Contact Info) Description 10/29/2024 Scanned Document [facility] [address] [place] [place] [address] Scanning, Generic Provider Social History [...] place to sleep or slept in a retirement (including now)? No 02/16/2024 Housing Stability Vital Sign Answer Mookie e Recorded In the last 12 months, was t here a time when you were not able to pay the mortgage or rent on time? No 09/01/2024 In the past 12 months, how m any times have you moved where you were living? 0 09/01/2024 At any time in the past 12 m [facility], were you homeless or living in a retirement (including now)? No 09/01/2024 Comments No Sex and Gender Information Value Date Recorded Sex Assigned at Not on file Legal Sex Female 10:34 AM EST Gender Identity Not on file Sexual Orientation Not on file documented as of this encounter Plan of Treatment Upcoming Encounters Date Type Department Care Team (Latest Contact Info) Description 04/03/2025 1:00 PM EDT Hospital Encounter [facility] [address] [place] [address] 04/14/2025 10:30 AM EDT Hospital Encounter [facility] [address] [place] [address] Kervin Fair MD [facility] [address] Ventricular tachycardia (Multi) 04/14/2025 12:00 PM EDT - 04/14/2025 4:00 PM EDT Surgery [facility] [address] [place] [address] Kervin Fair MD [address] [place] [address] [place] [[address] (CPT )] 07/14/2025 1:00 PM EDT Office Visit [facility] [address] [facility] [address] [place] [address] Oscar Rodriguez MD [facility] [address] [place] [address] 09/26/2025 12:20 PM EST Appointment [facility] [address] [place] [address] 09/26/2025 1:00 PM EST Office Visit [facility] [address] [facility] [address] [place] [address] June Preston MD [address] [facility] Office [address]g, [address] [place] [address] documented as of this encounter Visit Diagnoses [...] documented as of this encounter Care Teams Paper Ruler Relationship Specialty Start Date End Date Generic Provider, No Assigned Pcp, [place] [address] PCP - General Religion Instructor 08/08/24 11/10/24 Conchita Aden MD [address] [place] [address] [place] [address] PCP - General Family Medicine 11/11/24 Diane Min RN Care Steel Unloader 09/05/24 12/06/24 June Preston MD [address] [facility] B[address]g, [address] [place] [address] Endodontic Assistant Electrophysiology 09/13/24 Diane Min, electrical lineworkerSteel Unloader 01/16/25 01/31/25 documented as of this encounter
--- OUTSIDE RECORDS SUMMARY | 2025-03-24 23:21 | XMS_ITS | Encounter Summary ---
Author Organization [facility] Address [address] [place], [place] [address] Care Team Providers Care Certified Scrum Master Name Role Phone Shanthi Litstephanie Nelson DO Primary Care Provider [phone] Reza Pike MD Primary Care Provider Pcp, No PHYSICAL SCIENTIST Primary Care Provider Unavailabl e Source Comments In the event this information is protected by the Federal Confidentiality of Alcohol and Drug AbusePatient Records regulations: The Federal rules restrict any use of the information to criminally investigate or prosecute any alcohol or drug abuse patient.[facility] Encounter Details Date Type Department Care Team (Late st Contact Info) Description 06/01/2015 Letters (in) Colorectal Surgery [address] [id number] Marcial Ceballos (Hist) [address] [id number] Social History Tobacco Use Types Packs/Day Years Used Date Smoking Tobacco: Every Day Cigarettes 0.2 30 Smokeless Tobacco: Never Comments:about 4 cigarettes a day and a vapor cigarette Alcohol Use Standard Drinks/Week Comments No 0 (1 standard drink = 0.6 oz pur e alcohol) Comments No Sex and Gender Information Value Date Recorded Sex Assigned at Not on file Legal Sex Female 10:50 AM EDT Gender Identity Not on file Sexual Orientation Not on file Occupation Industry Job Start Date Job End Date Disability Not on file Not on file Not on file documented as of this encounter Functional Status * Are you deaf or do you have serious difficulty hearing? Answer Date of Assessment Author No 05/31/2015 12:22 PM EDT Javier Bhatt (Rn)(Hist), RN * Are you blind or do you have serious difficulty seeing, even when wearing glasses? Answer Date of Assessment Author No 05/31/2015 12:22 PM EDT Javier Bhatt (Rn)(Hist), RN * Do you have serious difficulty walking or climbing stairs? Answer Date of Assessment Author No 05/31/2015 12:22 PM EDT Javier Bhatt (Rn)(Hist), RN * Do you have difficulty dressing or bathing? Answer Date of Assessment Author No 05/31/2015 12:22 PM EDJavier Santos (Rn)(Hist), RN * Because of a physical, mental, or emotional condition, do you have difficulty doing errands alone such as visiting a doctor's office or shopping? Answer Date of Assessment Author No 05/31/2015 12:22 PM EDJavier Santos (Rn)(Hist), RN documented as of this encounter Mental Status * Because of a physical, mental, or emotional condition, do you have serious difficulty concentrating, remembering, or making decisions? Answer Entry Date Author No 05/31/2015 12:22 PM Javier Travis (Rn)(Hist), RN documented in this encounter Miscellaneous Notes * Letter - Marcial Ceballos - 06/05/2015 3:48 PM EDT June 01, 2015 Jd Dailey, DO [address] [address] RE: Latanya Martinez : [address] Dailey: I saw your patient, Latanya Martinez, on April 09, 2015. Mrs. 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 She had an ascending colostomy and had come seeking an opinion on suitability for restoring continuity of her intestine. She had a past medical history of coronary artery disease with stents and was taking Plavix. She also had diabetes and hypertension. When I examined Mrs. Martinez, she was in no distress. Her abdomen was scarred with the midline wound and she had a right upper quadrant end colostomy. Examination of the perineum was normal. Digital examination of the anus was normal, but just proximal to the anus there was scar tissue that narrowed the lumen. Proctoscopy, the anus was normal. 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 I was unable to assess the length of bowel on the distal segment. It was my impression we needed to determine the length of the bowel on the right side of the colon and the remaining left side. If there was sufficient length and she was suitable for anesthesia, a presybeterian of continuity could be performed. I performed a flexible sigmoidoscopy through the end colostomy; the bowel looked normal and was of sufficient length. I then scoped the distal bowel through the anus and the scope was passed through 35 cm where progress was arrested because of inspissated mucus. 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 Arrangements were made for her to be seen by General Internal Medicine and Cardiology, and after preoperative preparation a laparotomy was performed to take down the colostomy and performed a colocolic anastomosis; this was performed on May 22, 2015. Yours Faithfully, Marcial Ceballos MD CO/ cc: Latanya Martinez 11[address] [place] [address] Lit Maki DO [address] [facility] [address] documented in this encounter Plan of Treatment Not on file documented as of this encounter Visit Diagnoses Not on filedocumented in this encounter Care Teams Certified Scrum Master Relationship Specialty Start Date End Date Lit Maki DO PCP - General 05/16/15 06/03/15 Reza Pike MD PCP - General Family Medicine 06/04/15 05/16/22 Pcp, No, PHYSICAL SCIENTIST PCP - General 05/17/22 12/02/22 documented as of this encounter
--- OUTSIDE RECORDS SUMMARY | 2025-03-24 23:21 | XMS_ITS | Encounter Summary ---
Author Organization [facility] Address [address] [place] [address] Phone Care Team Providers Care Shoemaking Cutter Name Role Phone Generic Provider, No Assigned Pcp Primary Car e Provider Unavailable Diane Min RN Unavailable Unavailable June Preston MD Unavailable Conchita Aden MD Primary Care Provider Diane Min RN Unavailable Unavailable Encounter Details Date Type Department Care Team (Late st Contact Info) Description 10/30/2024 Scanned Document [facility] [address] [place] [address] Scanning, Generic Provider Social History [...] place to sleep or slept in a half-way (including now)? No 02/16/2024 Housing Stability Vital Sign Answer Mookie e Recorded In the last 12 months, was t here a time when you were not able to pay the mortgage or rent on time? No 09/01/2024 In the past 12 months, how m any times have you moved where you were living? 0 09/01/2024 At [facility] time in the [facility], were you homeless or living in a half-way (including now)? No 09/01/2024 Comments No Sex and Gender Information Value Date Recorded Sex Assigned at Not on file Legal Sex Female 10:34 AM EST Gender Identity Not on file Sexual Orientation Not on file documented as of this encounter Plan of Treatment Upcoming Encounters Date Type Department Care Team (Latest Contact Info) Description 04/03/2025 1:00 PM EDT Hospital Encounter [facility] [address] [place] [address] 04/14/2025 10:30 AM EDT Hospital Encounter [facility] [place] [address] [place] [address] Kervin Fair MD [facility] [address] Ventricular tachycardia (Multi) 04/14/2025 12:00 PM EDT - 04/14/2025 4:00 PM EDT Surgery [facility] [place] [place] [address] Kervin Fair MD [address] [place], [place] [id number] [place] [197[address] (CPT )] 07/14/2025 1:00 PM EDT Office Visit [facility] [address] [facility] [address] [place] [address] Oscar Rodriguez MD [address] [facility] [address], [address] [place] [address] 09/26/2025 12:20 PM EST Appointment [facility] [address] [place] [address] 09/26/2025 1:00 PM EST Office Visit [facility] [address] [facility] [address] [place] [address] June Preston MD [address] [facility] Office Bldg, [address] [place] [address] documented as of this encounter Procedures Procedure Name Priority Date/Time Associated Diagnosis Comments OUTSIDE IMAGING SCAN 10/30/2024 documented in this encounter Results * OUTSIDE IMAGING SCAN (10/30/2024) Anatomical Region Laterality Modality Other Narrative 10/30/2024 Ordered by an unspecified provider. Generic Provider Scanning OUTSIDE SCAN Final Result documented in this encounter Visit Diagnoses Not on filedocumented [...] documented as of this encounter Care Teams Shoemaking Cutter Relationship Specialty Start Date End Date Generic Provider, No Assigned Pcp, [place] [address] PCP - General Engraver Pantograph 08/08/24 11/10/24 Conchita Aden MD [address] [place] [address] [place] [address] PCP - General Family Medicine 11/11/24 Diane Min, contact lens blocker and cutterBread Packer 09/05/24 12/06/24 June Preston MD [address] [facility] Office Bldg, [address] [place] [address] [facility] Electrophysiology 09/13/24 Diane Min contact lens blocker and cutterBread Packer 01/16/25 01/31/25 documented as of this encounter
--- OUTSIDE RECORDS SUMMARY | 2025-03-24 23:22 | XMS_ITS | Patient Health Record ---
Author Organization [facility] Address [address] [place] [address] Care Team Providers Care Music Pastor Name Role Phone Darcie Garcia Primary Care Provider Janna Jackson Unavailable [phone] Nicole Benson Unavailable [phone] Sal Harris Unavailable [phone] Wilson Isabel Unavailable [phone] Abdiel Kennedy Unavailable [phone] Emmanuel Stratton Unavailable [phone] Allergies No Known Allergies Reason For Referral No Information Medications Medication SIG (Take, Route, Frequency, Duration) Notes Start Date End Date Status OLANZapine 2.5 MG TAKE 1 TABLET BY MOUTH TWICE A DAY NEEDED FOR AGITATION Active Invokana 300 MG 1 tablet before the first meal of the day Orally Once a day for 90 days substitutions permitted Active Melatonin 5 MG 1 tablet in the evening Orally Once a day for 90 days Active Prevacid 30 MG 1 capsule before a meal Orally Once a day for 90 days Active Metoprolol Succinate 100 MG 1 capsule Orally Once a day Active lamoTRIgine 100 MG 2 tablets Orally Once a day 05/06/2023 Active Magnesium 400 MG as directed Orally Active Lurasidone HCl take 1 tablet by mouth every evening with food Active Rosuvastatin Calcium 10 MG 1 tablet Orally Once a day Active Meclizine HCl 25 MG 1 tablet as needed Orally three times a day for 30 days Active QUEtiapine Fumarate 200 MG 1 tablet Orally Once a day for 90 days 09/07/2024 Active Ranolazine ER 500 MG TAKE 1 TABLET BY MOUTH TWICE A DAY FOR 30 DAYS for 90 Active Spironolactone 25 MG 1 tablet Orally Active Warfarin Sodium 2.5 MG 1 tablet Orally Once a day for 30 day(s) Active Aspir-81 81 MG 1 tablet Orally Once a day Active Lisinopril 5 MG 1 tablet Orally Once a day for 90 days 02/03/2011 Active Lurasidone HCl 60 MG 1 tablet with food Orally Once a day for 90 days Active Gabapentin 400 MG 1 capsule Orally Once a day for 30 days Active Social History Tobacco Use: Social History Observation Description Date Details (start date - stop date) Current Smoker NA - NA Sexual Hx: Question Answer Notes Had sex in the last 12 months (vaginal, oral, or anal)? No Have you ever had an STD? No AUDIT-C (Standard) Question Answer Notes Did you have a drink containing alcohol in the p ast year? No Points 0 Interpretation Negative Tobacco Control (Standard) Question Answer Notes Tobacco use: Current smoker Section Notes: Lives with sister. + ETOH and smoking. 1/2 ppd x 35 years. Hx of drug abuse; sober from illicit drug use since 2006. 06-10-12: 1/2 ppd since age 15. Denies ETOH. Denies illegal drug use. 12/09/22 Currently taking medications for her depression. Lives with sister. + ETOH and smoking. 1/2 ppd x 35 years. Hx of drug abuse; sober from illicit drug use since 2006. 06-10-12: 1/2 ppd since age 15. Denies ETOH. Denies illegal drug use. 12/09/22 Currently taking medications for her depression. Lives with sister. + ETOH and smoking. 1/2 ppd x 35 years. Hx of drug abuse; sober from illicit drug use since 2006. 06-10-12: 1/2 ppd since age 15. Denies ETOH. Denies illegal drug use. 12/09/22 Currently taking medications for her depression. Lives with sister. + ETOH and smoking. 1/2 ppd x 35 years. Hx of drug abuse; sober from illicit drug use since 2006. 06-10-12: 1/2 ppd since age 15. Denies ETOH. Denies illegal drug use. 12/09/22 Currently taking medications for her depression. Lives with sister. + ETOH and smoking. 1/2 ppd x 35 years. Hx of drug abuse; sober from illicit drug use since 2006. 06-10-12: 1/2 ppd since age 15. Denies ETOH. Denies illegal drug use. 12/09/22 Currently taking medications for her depression. Lives with sister. + ETOH and smoking. 1/2 ppd x 35 years. Hx of drug abuse; sober from illicit drug use since 2006. 06-10-12: 1/2 ppd since age 15. Denies ETOH. Denies illegal drug use. 12/09/22 Currently taking medications for her depression. Lives with sister. + ETOH and smoking. 1/2 ppd x 35 years. Hx of drug abuse; sober from illicit drug use since 2006. 06-10-12: 1/2 ppd since age 15. Denies ETOH. Denies illegal drug use. 12/09/22 Currently taking medications for her depression. Lives with sister. + ETOH an d smoking. 1/2 ppd x 35 years. Hx of drug abuse; sober from illicit drug use since 2006. Lives with sister. + ETOH an d smoking. 1/2 ppd x 35 years. Hx of drug abuse; sober from illicit drug use since 2006. Lives with sister. + ETOH and smoking. 1/2 ppd x 35 years. Hx of drug abuse; sober from illicit drug use since 2006. 06-10-12: 1/2 ppd since age 15. Denies ETOH. Denies illegal drug use. Lives with sister. + ETOH and smoking. 1/2 ppd x 35 years. Hx of drug abuse; sober from illicit drug use since 2006. 06-10-12: 1/2 ppd since age 15. Denies ETOH. Denies illegal drug use. Lives with sister. + ETOH and smoking. 1/2 ppd x 35 years. Hx of drug abuse; sober from illicit drug use since 2006. 06-10-12: 1/2 ppd since age 15. Denies ETOH. Denies illegal drug use. 12/09/22 Currently taking medications for her depression. Lives with sister. + ETOH and smoking. 1/2 ppd x 35 years. Hx of drug abuse; sober from illicit drug use since 2006. 06-10-12: 1/2 ppd since age 15. Denies ETOH. Denies illegal drug use. 12/09/22 Currently taking medications for her depression. Lives with sister. + ETOH and smoking. 1/2 ppd x 35 years. Hx of drug abuse; sober from illicit drug use since 2006. 06-10-12: 1/2 ppd since age 15. Denies ETOH. Denies illegal drug use. 12/09/22 Currently taking medications for her depression. Lives with sister. + ETOH and smoking. 1/2 ppd x 35 years. Hx of drug abuse; sober from illicit drug use since 2006. 06-10-12: 1/2 ppd since age 15. Denies ETOH. Denies illegal drug use. 12/09/22 Currently taking medications for her depression. Lives with sister. + ETOH and smoking. 1/2 ppd x 35 years. Hx of drug abuse; sober from illicit drug use since 2006. 06-10-12: 1/2 ppd since age 15. Denies ETOH. Denies illegal drug use. 12/09/22 Currently taking medications for her depression. Lives with sister. + ETOH and smoking. 1/2 ppd x 35 years. Hx of drug abuse; sober from illicit drug use since 2006. 06-10-12: 1/2 ppd since age 15. Denies ETOH. Denies illegal drug use. 12/09/22 Currently taking medications for her depression. Lives with sister. + ETOH and smoking. 1/2 ppd x 35 years. Hx of drug abuse; sober from illicit drug use since 2006. 06-10-12: 1/2 ppd since age 15. Denies ETOH. Denies illegal drug use. 12/09/22 Currently taking medications for her depression. Lives with sister. + ETOH and smoking. 1/2 ppd x 35 years. Hx of drug abuse; sober from illicit drug use since 2006. 06-10-12: 1/2 ppd since age 15. Denies ETOH. Denies illegal drug use. 12/09/22 Currently taking medications for her depression. Lives with sister. + ETOH and smoking. 1/2 ppd x 35 years. Hx of drug abuse; sober from illicit drug use since 2006. 06-10-12: 1/2 ppd since age 15. Denies ETOH. Denies illegal drug use. 12/09/22 Currently taking medications for her depression. Lives with sister. + ETOH and smoking. 1/2 ppd x 35 years. Hx of drug abuse; sober from illicit drug use since 2006. 06-10-12: 1/2 ppd since age 15. Denies ETOH. Denies illegal drug use. 12/09/22 Currently taking medications for her depression. Lives with sister. + ETOH and smoking. 1/2 ppd x 35 years. Hx of drug abuse; sober from illicit drug use since 2006. 06-10-12: 1/2 ppd since age 15. Denies ETOH. Denies illegal drug use. 12/09/22 Currently taking medications for her depression. Lives with sister. + ETOH and smoking. 1/2 ppd x 35 years. Hx of drug abuse; sober from illicit drug use since 2006. 06-10-12: 1/2 ppd since age 15. Denies ETOH. Denies illegal drug use. 12/09/22 Currently taking medications for her depression. Lives with sister. + ETOH and smoking. 1/2 ppd x 35 years. Hx of drug abuse; sober from illicit drug use since 2006. 06-10-12: 1/2 ppd since age 15. Denies ETOH. Denies illegal drug use. 12/09/22 Currently taking medications for her depression. Lives with sister. + ETOH and smoking. 1/2 ppd x 35 years. Hx of drug abuse; sober from illicit drug use since 2006. 06-10-12: 1/2 ppd since age 15. Denies ETOH. Denies illegal drug use. 12/09/22 Currently taking medications for her depression. Lives with sister. + ETOH and smoking. 1/2 ppd x 35 years. Hx of illicit drug use; sober from illicit drug use since 2006. 06-10-12: 1/2 ppd since age 15. Denies ETOH. Denies illegal drug use. 12/09/22 Currently taking medications for her depression. Lives with sister. + ETOH and smoking. 1/2 ppd x 35 years. Hx of illicit drug use; sober from illicit drug use since 2006. 06-10-12: 1/2 ppd since age 15. Denies ETOH. Denies illegal drug use. 12/09/22 Currently taking medications for her depression. Lives with sister. + ETOH and smoking. 1/2 ppd x 35 years. Hx of illicit drug use; sober from illicit drug use since 2006. 06-10-12: 1/2 ppd since age 15. Denies ETOH. Denies illegal drug use. 12/09/22 Currently taking medications for her depression. Lives with sister. + ETOH and smoking. 1/2 ppd x 35 years. Hx of illicit drug use; sober from illicit drug use since 2006. 06-10-12: 1/2 ppd since age 15. Denies ETOH. Denies illegal drug use. 12/09/22 Currently taking medications for her depression. Lives with sister and 2 niec es. + ETOH and smoking. 1/2 ppd x 30 years. Lives with sister and 2 niec es. + ETOH and smoking. 1/2 ppd x 30 years. Lives with sister. + ETOH an d smoking. 1/2 ppd x 30 years. Hx of drug abuse; sober from illicit drug use since 2006. Lives with sister. + ETOH and smoking. 1/2 ppd x 35 years. Hx of drug abuse; sober from illicit drug use since 2006. 06-10-12: 1/2 ppd since age 15. Denies ETOH. Denies illegal drug use. 12/09/22 Currently taking medications for her depression. Lives with sister. + ETOH and smoking. 1/2 ppd x 35 years. Hx of drug abuse; sober from illicit drug use since 2006. 06-10-12: 1/2 ppd since age 15. Denies ETOH. Denies illegal drug use. 12/09/22 Currently taking medications for her depression. Lives with sister. + ETOH and smoking. 1/2 ppd x 35 years. Hx of illicit drug use; sober from illicit drug use since 2006. 06-10-12: 1/2 ppd since age 15. Denies ETOH. Denies illegal drug use. 12/09/22 Currently taking medications for her depression. Lives with sister and 2 niec es. + ETOH and smoking. 1/2 ppd x 30 years. 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) Active confirmed Problem 431991361 Other intervertebral disc degeneration, lumbar region (M51.36) Active confirmed Problem 29593142 Urge incontinenc e (N39.41) Active confirmed Problem 52397346 Anxiety (F41.9) Active confirmed Problem 761922145 Bipolar 1 disord er (F31.9) Active confirmed Problem 074582455536560 Obesity (BMI 30.0-34.9) (E66.9) Active confirmed Problem 90440343 Paresthesias (R20.2) Active confirmed Problem 72945904 Chronic obstruct vesna pulmonary disease, unspecified COPD type (J44.9) Active confirmed Problem 563909913 Gastroesophageal reflux disease without esophagitis (K21.9) Active confirmed Problem 62675559 Atrial fibrillation, unspecified type (I48.91) Active confirmed Problem 83175283 Oral thrush (B37.0) Active confirmed Problem 97444881 Hypertension, unspecified type (I10) Active confirmed Problem 829193235 Moderate persist ent asthma, unspecified whether complicated (J45.40) Active confirmed Problem Body mass index 30+ - obesity (536800217) BMI 30.0-30.9,adult (Z68.30) Active confirmed Problem 18229343 Type 2 diabetes mellitus with diabetic polyneuropathy, unspecified whether snf insulin use (E11.42) Active confirmed Problem 84166964 Oropharyngeal dysphagia (R13.12) Active confirmed Problem Mixed bipolar affective disorder, moderate (640012361) Bipolar mixed affective disorder, moderate (F31.62) Active confirmed Problem 96937585 Anticoagulated o n Coumadin (Z79.01) Active confirmed Problem 68227248 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, unspecified vessel or lesion type (I25.118) Active confirmed Vital Signs Heart Rate 65 /min 09/07/2024 Temperature 98.1 degrees Fahrenheit 06/21/2024 Respiratory Rate 20 /min 08/12/2024 Oximetry 98 % 09/07/2024 Blood pressure diastolic 70 mm Hg 09/07/2024 Height 62 in 09/07/2024 Blood pressure systolic 108 mm Hg 09/07/2024 Weight 152.8 lbs 09/07/2024 BMI 27.94 kg/m2 09/07/2024 Encounters Encounter Location Date Provider Diagnosis [facility] [address] [place] [address] 03/25/2024 Darcie Garcia Type 2 diabetes norah itus with diabetic polyneuropathy, unspecified whether parts counterman insulin use E11.42 and 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, unspecified vessel or lesion type I25.118 [facility] [address] [place] [address] 04/27/2024 Darcie Garcia [facility] [address] [place] [address] 06/01/2024 Darcie Garcia Urge incontinence N3 9.41 [facility] [address] [place] [address] 06/03/2024 Darcie Garcia [facility] [address] [place] [address] 06/14/2024 Darcie Garcia [facility] [address] [place] [address] 07/11/2024 Darcie Garcia Restless legs syndro me G25.81 [facility] [address] [place] [address] 07/18/2024 Darcie Garcia [facility] [address] [place] [address] 08/05/2024 Darcie Garcia [facility] [address] [place] [address] 08/11/2024 Darcie Garcia Gastroesophageal ref lux disease without esophagitis K21.9 [facility] [address] [place] [address] 08/16/2024 Darcie Garcia Type 2 diabetes norah itus with diabetic polyneuropathy, unspecified whether parts counterman insulin use E11.42 [facility] [address] [place] [address] 08/29/2024 Darcie Garcia Restless legs syndro me G25.81 [facility] [address] [place] [address] 11/28/2024 Darcie Garcia Hypertension, unspecified type I10 [facility] [address] [place] [address] 06/21/2024 Emmanuel Stratton Restless legs syndro me G25.81 [facility] [address] [place] [address] 06/29/2024 Darcie Garcia Restless legs syndro me G25.81 ; Hip pain, right M25.551 and Urge incontinence N39.41 [facility] [address] [place] [address] 08/12/2024 Darcie Garcia Strain of neck muscl e, initial encounter S16.1XXA ; Changes in vision H53.9 ; Dizziness R42 and Paresthesias R20.2 [facility] [address] [place] [address] 06/13/2024 Darcie Garcia Hip pain, right M25. 551 and Pneumonia of both lower lobes due to infectious organism J18.9 [facility] [address] [place] [address] 09/07/2024 Nicole Benson Bipolar mixed affect vesna disorder, moderate F31.62 [facility] [address] [place] [address] 07/13/2024 Nicole Benson Bipolar mixed affect vesna disorder, moderate F31.62 Assessments Encounter Date Diagnosis (ICD Code) Assessment Notes Treatment Notes Treatment Clinical Notes Section Notes 09/07/2024 Bipolar mixed affective disorder, moderate (ICD-10 - F31.62) Recommended treatment for Bipolar disorder includes FDA approved and OFF label medications: second generation antipsychotics and mood stabilizers. Discussed life threatening side effect of Lamotrigine. Pt is to monitor for new skin rashes or sensation of a sunburn or itchiness or redness, mouth sores or sores in mucus membranes, and call provider immediately and or go to ER, and stop the medication. Second generation antipsychotic medications can cause headache, drowsiness, agitation, dizziness, nausea, or extrapyramidal symptoms such as tremors, muscle spasms, slowness of movement or jerking of muscles. The patient verbalizes understanding with all questions answered thoroughly and is in agreement with treatment plan. Continue current treatment. . Call for problems . GOALS: . Maintain medication regimen _Improve mood stability _Improve anxiety control _Improve social and interpersonal functioning Patient/Guardian will call sooner if symptoms worsen. Patient understands to go to ER if needed if symptoms become severe. Crisis Intervention plan was discussed and agreed upon. Patient/Guardian will call 911 in case of emergency. Emergency contact information was provided to the patient/guardian. follow up 3 months Pharmacological management: . Alternative medication plans were discussed with the patient/guardian. All relevant side effects and potential adverse effects were discussed with the patient/guardian. Standard cautions and potential benefits were discussed. Patient/Guardian consented to the start/continuatio n of the treatment. 07/13/2024 Bipolar mixed affective disorder, moderate (ICD-10 - F31.62) Recommended treatment for Bipolar disorder includes FDA approved and OFF label medications: second generation antipsychotics and mood stabilizers. Discussed life threatening side effect of Lamotrigine. Pt is to monitor for new skin rashes or sensation of a sunburn or itchiness or redness, mouth sores or sores in mucus membranes, and call provider immediately and or go to ER, and stop the medication. Second generation antipsychotic medications can cause headache, drowsiness, agitation, dizziness, nausea, or extrapyramidal symptoms such as tremors, muscle spasms, slowness of movement or jerking of muscles. The patient verbalizes understanding with all questions answered thoroughly and is in agreement with treatment plan. Continue current treatment. Call for problems . GOALS: . Maintain medication regimen _Improve mood stability _Improve anxiety control _Improve social and interpersonal functioning Patient/Guardian will call sooner if symptoms worsen. Patient understands to go to ER if needed if symptoms become severe. Crisis Intervention plan was discussed and agreed upon. Patient/Guardian will call 911 in case of emergency. Emergency contact information was provided to the patient/guardian. follow up 2 months Pharmacological management: . Alternative medication plans were discussed with the patient/guardian. All relevant side effects and potential adverse effects were discussed with the patient/guardian. Standard cautions and potential benefits were discussed. Patient/Guardian consented to the start/continuatio n of the treatment. 06/21/2024 Restless legs syndrome (ICD-10 - G25.81) Because the patient was already on a significant dose of pregabalin (2x 75mg), I will switch her to a 300mg dose of gabapentin. Due to the slightly different mechanisms of the 2 medications, believe the patient will have symptomatic relief. Patient in agreement with plan. 06/13/2024 Hip pain, right (ICD-10 - M25.551) ED visit 05/31: diagnosed with arthralgia, responded to Tramadol and prednisone. Pain has since returned and is unchanged from previous. Focal, reproducible pain on superior/lateral border of right iliac crest. Exam is not consistent with bursitis or sciatica. Consider gluteus medius tendinopathy, tensor fascia latae syndrome, or iliolumbar syndrome. Given that steroid use should be minimized due to her DM and NSAID use should be minimized due to warfarin, will do short coarse of meloxicam. Recommended conservative therapy with rest. Reassess in 2 weeks. 06/13/2024 Pneumonia of both lower lobes due to infectious organism (ICD-10 - J18.9) ED visit on 06/05: CTA showed no PE. Basilar patchy ground glass parenchymal density; pneumonitis/infil trate. No sputum culture collected. No previous sputum cultures. Pt symptomatic 1 week later with adequate oxygenation, which is as expected. Resolution will take time. Can repeat imaging at 12 weeks. Pt encouraged to use nebulizer as needed. Continue to monitor symptom resolution 06/01/2024 Urge incontinence (ICD-10 - N39.41) 03/25/2024 Type 2 diabetes mellitus with diabetic polyneuropathy, unspecified whether snf insulin use (ICD-10 - E11.42) 07/11/2024 Restless legs syndrome (ICD-10 - G25.81) 06/29/2024 Restless legs syndrome (ICD-10 - G25.81) 08/12/2024 Strain of neck muscle, initial encounter (ICD-10 - S16.1XXA) 08/12/2024 Changes in vision (ICD-10 - H53.9) 08/11/2024 Gastroesophageal reflux disease without esophagitis (ICD-10 - K21.9) 11/28/2024 Hypertension, unspecified type (ICD-10 - I10) 08/29/2024 Restless legs syndrome (ICD-10 - G25.81) 08/16/2024 Type 2 diabetes mellitus with diabetic polyneuropathy, unspecified whether snf insulin use (ICD-10 - E11.42) 08/12/2024 Dizziness (ICD-10 - R42) 06/29/2024 Hip pain, right (ICD-10 - M25.551) ED visit 05/31: diagnosed with arthralgia, responded to Tramadol and prednisone. Pain has since returned and is unchanged from previous. Focal, reproducible pain on superior/lateral border of right iliac crest. Consider gluteus medius tendinopathy, tensor fascia latae syndrome, or iliolumbar syndrome. Given that steroid use should be minimized due to her DM and NSAID use should be minimized due to warfarin, will do short coarse of meloxicam. 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 08/12/2024 Other Assessment & Plan Neck Pain and Numbness:- New cervicalgia and paresthesia, likely due to age-related degenerative changes.- Recommended OTC lidocaine patches for analgesia plus new Flexeril rx today. Recommend returning for OMT. Lightheadedness:- New orthostatic lightheadedness, likely secondary to orthostatic hypotension.- Conduct orthostatic blood pressure readings to assess changes in blood pressure with position change. Vision Changes:- New acute onset of blurred vision in the left eye.- Consult with an gold burnisher in the next 24 hours if possible for new dilated retinal exam. Order carotid US. 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.812]- Other cervical disc degeneration, unspecified cervical region [M50.30]- Menopausal and female climacteric states [N95.1] Plan Of Treatment Pending Test Test Name Order Date Ferritin 06/29/2024 Magnesium 06/29/2024 US carotid doppler BI 08/12/2024 Iron and TIBC Profile 06/29/2024 Insurance Providers Payer Name Payer Address Payer Phone Subscriber Number Group Number Insured Name Patient Relationship to Insured Coverage Start Date Coverage End Date [employer] [address] [place] [address] [phone] [id number] [facility] KING MORENO Self - patient is the insured 3 [employer] MEDICA[employer] SEC TO [employer] ADV [address] [place] [address] [phone] [id number] KING MORENO Self - patient is the insured 1 MEDICARE C[place] [address] [place] [address] [id number] JOSHKING Self - patient is the insured 3 Medical (General) History Medical History History ICD Code T2DM CAD with 4 stents Atrial Fibrillation PE COPD Bipolar Disorder Vertigo Insomnia GERD (AVM) Anxiety Upper Dentures Surgical History Surgery Date(Month/Year) heart stent placement x4 06/08 lap-anayeli 07/08 CARDIAC CATHETER 11/2011 carpal tunnel release 01/2023 Stress Test 04/2023 Pacemaker 08/2023 cardiac cath 08/2024 Hospitalization History Reason Date(Month/Year) new medication - had to be observed 419 24 see above
--- OUTSIDE RECORDS SUMMARY | 2025-03-24 23:22 | XMS_ITS | Clinical Summary ---
Author Organization [facility] Address [address] [place] [address] Phone Care Team Providers Care Community Youth Secretary Name Role Phone June Preston MD Unavailable Conchita Aden MD Primary Care Provider [phone] Allergies No known active allergies Medications lansoprazole (Prevacid) [address] capsule Take 1 capsule (30 mg) by mouth once daily. Active meclizine (Antivert) 25 mg tablet Take 1 tablet (25 mg) by mouth 2 times a day. Active oxybutynin XL (Ditropan-XL) 10 mg 24 hr tablet Take 1 tablet (10 mg) by mouth once daily. 3 Active QUEtiapine (SEROquel) 200 mg tablet Take 1 tablet (200 mg) by mouth once daily at bedtime. 3 Active magnesium oxide (Mag-Ox) 400 mg (241.3 mg magnesium) tablet Take 1 tablet (400 mg) by mouth 2 times a day. 3 Active melatonin 5 mg tablet Take 1 tablet (5 mg) by mouth once daily at bedtime. Active mexiletine (Mexitil) 150 mg capsuleIndications: Ventricular tachycardia (Multi) Take 1 capsule (150 mg) by mouth every 8 hours. 90 capsule 5 4 Active lisinopril 2.5 mg tabletIndications:E ssential hypertension Take 1 tablet (2.5 mg) by mouth once daily. Take in the evening 90 tablet 3 4 09/27/20 25 Active rivaroxaban (Xarelto) 10 mg tabletIndications:V entricular tachycardia (Multi),Pulmonary embolism, unspecified chronicity, unspecified pulmonary embolism type, unspecified whether acute cor pulmonale present (Multi),High risk medication use Take 1 tablet (10 mg) by mouth once daily. 90 tablet 3 5 11/11/19 Active aspirin 81 mg EC tabletIndications:A therosclerosis of [place] coronary artery of [place] heart without angina pectoris Take 1 tablet (81 mg) by mouth 2 times a week. 5 11/14/19 Active rosuvastatin (Crestor) 20 mg tabletIndications:A therosclerosis of [place] coronary artery of [place] heart without angina pectoris,Mixed hyperlipidemia Take 1 tablet (20 mg) by mouth once daily. 90 tablet 3 5 11/11/19 Active spironolactone (Aldactone) 25 mg tabletIndications:E ssential hypertension Take 1 tablet (25 mg) by mouth once daily. 90 tablet 3 5 11/15/19 Active Invokana 300 mgIndications:Type 2 diabetes mellitus without complication, without long-term current use of insulin,Atheroscler osis of [place] coronary artery of [place] heart without angina pectoris,Chronic systolic CHF (congestive heart failure) Take 1 tablet (300 mg) by mouth once daily in the morning. Take before meals. 90 tablet 3 5 11/21/19 Active ranolazine (Ranexa) 500 mg 12 hr tabletIndications:A therosclerosis of [place] coronary artery of [place] heart without angina pectoris Take 1 tablet (500 mg) by mouth 2 times a day. 180 tablet 5 12/20/19 Active albuterol 90 mcg/actuation inhalerIndications: ICD (implantable cardioverter-defibr illator) discharge Inhale 2 puffs every 6 hours if needed for wheezing. 18 g 11 5 Active benzocaine-menthol (Cepastat Sore Throat) lozengeIndications: ICD (implantable cardioverter-defibr illator) discharge Dissolve 1 lozenge in the mouth every 2 hours if needed for sore throat. 40 lozenge 5 Active loperamide (Imodium) 2 mg capsuleIndications: ICD (implantable cardioverter-defibr illator) discharge Take 1 capsule (2 mg) by mouth 4 times a day as needed for diarrhea. 30 capsule 5 Active pantoprazole (ProtoNix) 40 mg EC tabletIndications:I CD (implantable cardioverter-defibr illator) discharge Take 1 tablet (40 mg) by mouth early in the morning.. Do not crush, chew, or split. 30 tablet 5 Active metoprolol succinate XL (Toprol-XL) 25 mg 24 hr tabletIndications:V T (ventricular tachycardia) (Multi) Take 2 tablets (50 mg) by mouth once daily. 60 tablet 11 5 01/14/20 26 Active amiodarone (Pacerone) 200 mg tabletIndications:P aroxysmal ventricular tachycardia Take 1 tablet (200 mg) by mouth once daily. Do not fill before January 28, 2025. 90 tablet 1 5 01/29/20 26 Active Active Problems Problem Noted Date Diagnosed Date ICD (implantable cardioverter-defibrillator) dis charge 01/08/2025 BMI 28.0-28.9,adult 09/27/2024 Paroxysmal ventricular tachycardia 08/24/2024 Ventricular tachycardia 02/08/2024 ICD (implantable cardioverter-defibrillator) in place 11/06/2023 Cardiomyopathy, ischemic 11/06/2023 Acquired spondylolisthesis 09/30/2023 Bipolar 1 disorder (Multi) 09/30/2023 Degeneration of lumbar intervertebral disc 09/30 Mixed bipolar affective disorder, moderate (Mult i) 09/30/2023 Moderate persistent asthma without complication ([facility]) 09/30/2023 Oral thrush 09/30/2023 Oropharyngeal dysphagia 09/30/2023 Polyneuropathy due to type 2 diabetes mellitus ( Multi) 09/30/2023 Stable angina pectoris due t o arteriosclerosis of coronary artery 09/30/2023 Urge incontinence of urine 09/30/2023 Atherosclerosis of [place] co ronary artery of [place] heart without angina pectoris 07/29/2023 Chronic obstructive pulmonary disease (Multi) Chronic systolic CHF (congestive heart failure) 07/29/2023 Current every day smoker 07/29/2023 Essential hypertension 07/29/2023 Hyperlipidemia 07/29/2023 Intermittent claudication 07/29/2023 Iron deficiency anemia 07/29/2023 Pulmonary embolism 07/29/2023 Status post coronary angioplasty 07/29/2023 Type 2 diabetes mellitus 07/29/2023 Anxiety 11/25/2021 Chronic back pain 11/25/2021 Chronic bronchitis (Multi) 11/25/2021 Gastroesophageal reflux disease without esophagi tis 11/25/2021 Severe episode of recurrent major depressive disorder, without psychotic features (Multi) 11/25/2021 Status post Brandy procedure (Multi) Postoperative ileus (Multi) 05/30/2015 Overview (09/30/2023): NG tube for bowel decompression, clamp trials completed with return of bowel function Postoperative pain 05/23/2015 Overview (09/30/2023): DIRECTOR OF HOUSING AND ENERGY SERVICES pump and will transition to oral medication with the return of bowel function Vascular insufficiency of intestine (Multi) 06/2015 Resolved Problems Problem Noted Date Diagnosed Date Resolved Date Encounter to discuss test results 09/27/2024 11/11/2024 Paroxysmal ventricular tachycardia 08/24/2024 11/11/2024 BMI 29.0-29.9,adult 11/06/2023 09/27/20 Encounter for medication rev iew and counseling 11/06/2023 11/11/2024 Encounter to discuss treatment options 11/06/2023 11/11/2024 Obesity 09/30/2023 09/27/2024 VT (ventricular tachycardia) (Multi) 09/30/2023 11/11/2024 History of ischemic cardiomyopathy 07/29/2023 11/11/2024 A-fib (Multi) 11/25/2021 11/11/2024 Elevated troponin 05/24/2015 11/11/2024 Overview (09/30/2023): Cardiology consulted Encounters Date Type Department Care Team Description 03/09/2025 9:35 AM EDT - 03/09/2025 11:59 PM EDT Hospital Encounter [facility] [address] [place] [facility] [place] [phone] ICD (implantable cardioverter-defibr illator) in place; Paroxysmal ventricular tachycardia Discharge Disposition: Home 02/21/2025 Orders Only [facility] [address] [place] [address] Kervin Fair MD Chronic systolic CHF (congestive heart failure) (Primary Dx) 02/10/2025 Scanned Document [facility] [address] [place] [id number] Scanning, Generic Provider 02/07/2025 11:30 AM EDT Office Visit [facility] [address] [place] [address] Kervin Fair MD Ventricular tachycardia (Multi); ICD (implantable cardioverter-defibr illator) in place 02/07/2025 Travel 01/24/2025 Refill [facility] [address] [place] [address] Dia Lao, [employer] ICD (implantable cardioverter-defibr illator) discharge; Paroxysmal ventricular tachycardia (Multi) 01/19/2025 Telephone [facility] [address] [place] [address] Kervin Fair MD 01/16/2025 Patient Outreach [facility] [address] [place] [address] Diane Min, RN 01/12/2025 Telephone [facility] [address] [place] [address] Kervin Fair MD 01/09/2025 7:20 AM EDT - 01/09/2025 11:59 PM EDT Hospital Encounter [facility] [address] [place] [facility] [place] [address] Ventricular tachycardia (Multi) Discharge Disposition: Home 01/08/2025 7:01 PM EDT - 01/14/2025 12:51 PM EDT Hospital Encounter [facility] [address] [place] [address] Otis Chappell, Yonis Manuel MD Sehgal, Ishwinder S, MD Orouji Jokar, Tahereh, MD Kaniecki, Dani Romero, MERCHANDISE DELIVERER-COLOR BLENDER, DNP ICD (implantable cardioverter-defibr illator) discharge (Primary Dx); Paroxysmal ventricular tachycardia (Multi); Ventricular tachycardia (CMS/HCC); ICD (implantable cardioverter-defibr illator) in place; VT (ventricular tachycardia) (Multi) Discharge Disposition: Home Health Care - New 01/08/2025 Travel 01/06/2025 8:35 AM EST - 01/06/2025 11:59 PM EST Hospital Encounter [facility] [place] [address] [place] [address] ICD (implantable cardioverter-defibr illator) in place; Paroxysmal ventricular tachycardia (Multi) Discharge Disposition: Home 01/02/2025 8:45 AM EST - 01/02/2025 11:59 PM EST Hospital Encounter [facility] [address] [place] [address] ICD (implantable cardioverter-defibr illator) in place; Paroxysmal ventricular tachycardia (Multi) Discharge Disposition: Home from Last 3 Months Immunizations Immunization Administration Dates Next Due Flu vaccine (IIV4), preserva tive free *Check age/dose* 09/14/2018,08/24/2017 Flu vaccine, quadrivalent, n o egg protein, age 6 month or greater (FLUCELVAX) 06/21/2021 Hep A / Hep B 04/16/2020 Influenza, Unspecified 08/02/2019,2016,09/24/2014,11/02 Influenza, seasonal, injectable 01/22/2021 Pneumococcal polysaccharide vaccine, 23-valent, age 2 years and older (PNEUMOVAX 23) 04/16/2020,12/08/2016,11/09/2006 Tdap vaccine, age 7 year and older (BOOSTRIX, ADACEL) 06/10/2021,04/16/2020,08/02/2019 Zoster vaccine, recombinant, adult (SHINGRIX) 04/16/2020,08/03/2019 Family History Medical History Relation Name Comments CABG Brother Stroke Brother Stroke Father Stroke Mother Coronary artery disease Sister Relation Name Status Comments Brother Father Mother Sister Social History Tobacco Use Types Packs/Day Years Used Date Smoking Tobacco: Every Day Cigarettes 0.5 50.4 Started: 1974 Smokeless Tobacco: Never Tobacco Cessation:Ready to Q uit: No; Counseling Given: No Alcohol Use Standard Drinks/Week Comments Not Currently 0 (1 standard drink = 0.6 oz pur e alcohol) B1300 Health Literacy Answer Date Recor ded How often do you need to hav e someone help you when you read instructions, pamphlets, or other written material from your doctor or pharmacy? Never 01/08/2025 [facility] Utilities Answer Date Recorded In the past 12 months has e [employer] gas, oil, or water [employer] threatened to shut off services in your [...] week 01/08/2025 How often do you attend denominational or yazdanism serv ices? Patient declined 01/08/2025 Do you belong to any clubs o r organizations such as denominational groups, unions, fraternal or athletic groups, or [...] Recorded Patient Health Questionnaire-2 Score 0 01/08/2025 [facility] - Occupational Stress Questionnaire Answer Date Recorded [...] place to sleep or slept in a usp (including now)? No 02/16/2024 Housing Stability Vital Sign Answer Mookie e Recorded In the last 12 months, was t here a time when you were not able to pay the mortgage or rent on time? No 01/08/2025 In the past 12 months, how m any times have you moved where you were living? 1 01/08/2025 At any time in the past 12 m [facility], were you homeless or living in a usp (including now)? No 01/08/2025 Comments No Sex and Gender Information Value Date Recorded Sex Assigned at Not on file Legal Sex Female 10:34 AM EST Gender Identity Not on file Sexual Orientation Not on file Last Filed Vital Signs Vital Sign Reading Time Taken Comments Blood Pressure 116/62 02/07/2025 11:40 AM EDT Pulse 66 02/07/2025 11:40 AM EDT Temperature 37.5 C (99.5 F) 01/14/2025 7:31 AM EDT Respiratory Rate 18 01/14/2025 7:31 AM EDT Oxygen Saturation 94% 01/14/2025 7:31 AM EDT Inhaled Oxygen Concentration - - Weight 64 kg (141 lb) 02/07/2025 11:40 AM EDT Height 157.5 cm (5' 2 ) 02/07/2025 11:40 AM EDT Body Mass Index 25.79 02/07/2025 11:40 AM EDT Plan of Treatment Upcoming Encounters Date Type Department Care Team (Latest Contact Info) Description 04/03/2025 1:00 PM EDT Hospital Encounter [facility] [address] [place] [address] 04/14/2025 10:30 AM EDT Hospital Encounter [facility] [place] [address] [place] [address] Kervin Fair MD [address] [place] [address] Ventricular tachycardia (Multi) 04/14/2025 12:00 PM EDT - 04/14/2025 4:00 PM EDT Surgery [facility] [place] [address] [place] [address] Kervin Fair MD [address] [place] [address] [place] [[address] (CPT )] 07/14/2025 1:00 PM EDT Office Visit [facility] [address] [facility] [address] [place] [address] Oscar Rodriguez MD [address] [facility] [address] [place] [address] 09/26/2025 12:20 PM EST Appointment [facility] [address] [place] [address] 09/26/2025 1:00 PM EST Office Visit [facility] [address] [facility] [address] [place] [address] June Preston MD [address] [facility] Office [facility] [address] [place] [address] Health Maintenance Due Date Last Done Comments CT Colonography 1960 Colonoscopy 1960 Colorectal Cancer Screening 1960 Diabetes: Urine Protein Screening 1960 FIT-DNA (Cologuard) 1960 FIT 1960 HIV Screening 1960 Lipid Panel 1960 Medicare Annual Wellness Visit (AWV) 1960 Sigmoidoscopy 1960 MMR Vaccines (1 of 1 - Standard series) 1961 Diabetes: Retinopathy Screening 1970 Hepatitis C Screening 1978 Cervical Cancer Screening 1981 HPV/Cotest 1981 Pap Smear 1981 Mammogram 2000 Lung Cancer Screening 2010 Hepatitis B Vaccines (2 of 3 - Hep B Twinrix 3-dose series) 05/14/2020 04/16/2020 RSV High Risk: (Elderly (60+) or Population) (1 - Risk 60-74 years 1-dose series) 2020 Pneumococcal Vaccine (2 of 2 - PCV) 04/16/2021 04/16/2020, 12/08/2016, 11/09/2006 COVID-19 Vaccine (3 - season) 2024 06/21/2021, 02/19/2021 Diabetes: Hemoglobin A1C 04/10/2025 01/08/2025, 02/0 05/2022 Influenza Vaccine (Season Ended) 2025 06/21/2021, 01/22/2021, 08/02/2019, Additional history exists TSH Level 01/08/2026 01/08/2025, 01/31, 07/24/2023 Echocardiogram 01/09/2026 01/09/2025, 01/0 07/2024, 07/22/2023, Additional history exists Creatinine Level 01/13/2026 01/13/2025, , 01/11/2025, Additional history exists Potassium Level 01/13/2026 01/13/2025, 12/31, 01/11/2025, Additional history exists DTaP/Tdap/Td Vaccines (4 - Td or Tdap) 06/10/2031 06/10/2021, 04/16/2020, 08/02/2019 Hepatitis A Vaccines Aged Out 04/16/2020 No long er eligible based on patient's age to complete this topic Zoster Vaccines Completed 04/16/2020, 08/03/2019 HIB Vaccines Aged Out No longer eligi ble based on patient's age to complete this topic HPV Vaccines Aged Out No longer eligi ble based on patient's age to complete this topic IPV Vaccines Aged Out No longer eligi ble based on patient's age to complete this topic Meningococcal Vaccine Aged Out No demetrio judith eligible based on patient's age to complete this topic Rotavirus Vaccines Aged Out No longer eligible based on patient's age to complete this topic Medical Devices Implanted Type Area Neuro Ophthalmologist Device Identifier Shelf Expiration Date Model / Serial / Lot Icd ICD Right: Chest Wall Icd-09/02/2023 Implanted:09/02 (Quantity not on file) ICD Right: Chest Icd-09/30/2023 Implanted:09/30 (Quantity not on file) ICD Right: Chest Procedures Procedure Name Priority Date/Time Associated Diagnosis Comments CARDIAC DEVICE CHECK - REMOTE - ICD Routine 03/09/2025 9:38 AM EDT ICD (implantable cardioverter-defi brillator) in place Paroxysmal ventricular tachycardia NUCLEAR STRESS TEST - ONBASE SCAN 02/10/2025 OUTSIDE LAB SCAN 02/10/2025 OUTSIDE IMAGING SCAN 02/10/2025 ECG 12-LEAD Routine 02/07/2025 11:30 AM EDT Ventricular tachycardia (Multi) ICD (implantable cardioverter-defi brillator) in place POCT GLUCOSE Routine 01/14/2025 10:38 AM EDT POCT GLUCOSE Routine 01/14/2025 6:29 AM EDT PHOSPHORUS Pending Discharge 01/14/2025 5:22 AM EDT MAGNESIUM Pending Discharge 01/14/2025 5:22 AM EDT POCT GLUCOSE Routine 01/13/2025 9:33 PM EDT POCT GLUCOSE Routine 01/13/2025 4:22 PM EDT POCT GLUCOSE Routine 01/13/2025 11:05 AM EDT HOME O2 EVAL (DESATURATION SCREEN) Routine 01/13/2025 10:22 AM EDT POCT GLUCOSE Routine 01/13/2025 7:26 AM EDT ECG 12-LEAD STAT 01/13/2025 6:10 AM EDT BASIC METABOLIC PANEL Pending Discharge 01/13/2025 5:23 AM EDT PHOSPHORUS Pending Discharge 01/13/2025 5:23 AM EDT MAGNESIUM Pending Discharge 01/13/2025 5:23 AM EDT LAVENDER TOP Routine 01/13/2025 5:19 AM EDT EXTRA TUBES Routine 01/13/2025 5:19 AM EDT POCT GLUCOSE Routine 01/13/2025 12:27 AM EDT POCT GLUCOSE Routine 01/12/2025 7:39 PM EDT POCT GLUCOSE Routine 01/12/2025 4:08 PM EDT POCT GLUCOSE Routine 01/12/2025 11:02 AM EDT ECG 12-LEAD STAT 01/12/2025 7:48 AM EDT POCT GLUCOSE Routine 01/12/2025 7:02 AM EDT POCT GLUCOSE Routine 01/12/2025 6:39 AM EDT CBC Routine 01/12/2025 5:19 AM EDT BASIC METABOLIC PANEL Routine 01/12/2025 5:19 AM EDT PHOSPHORUS Routine 01/12/2025 5:19 AM EDT MAGNESIUM Routine 01/12/2025 5:19 AM EDT POCT GLUCOSE Routine 01/11/2025 8:48 PM EDT POCT GLUCOSE Routine 01/11/2025 4:05 PM EDT POCT GLUCOSE Routine 01/11/2025 11:04 AM EDT STOOL PATHOGEN PANEL, PCR Routine 01/11/2025 10:31 AM EDT ECG 12-LEAD STAT 01/11/2025 8:50 AM EDT POCT GLUCOSE Routine 01/11/2025 6:32 AM EDT PHOSPHORUS Routine 01/11/2025 4:56 AM EDT MAGNESIUM Routine 01/11/2025 4:56 AM EDT BASIC METABOLIC PANEL Routine 01/11/2025 4:56 AM EDT CBC Routine 01/11/2025 4:56 AM EDT POCT GLUCOSE Routine 01/10/2025 11:36 PM EDT POCT GLUCOSE Routine 01/10/2025 7:46 PM EDT POCT GLUCOSE Routine 01/10/2025 2:44 PM EDT HEPARIN ASSAY Routine 01/10/2025 11:56 AM EDT POCT GLUCOSE Routine 01/10/2025 10:54 AM EDT AIRWAY CLEARANCE TECHNIQUES Routine 01/10/2025 8:11 AM EDT ECG 12-LEAD STAT 01/10/2025 7:31 AM EDT POCT GLUCOSE Routine 01/10/2025 6:48 AM EDT HEPARIN ASSAY Routine 01/10/2025 5:21 AM EDT CBC Routine 01/10/2025 5:21 AM EDT COMPREHENSIVE METABOLIC PANEL Routine 01/10/2025 5:21 AM EDT MAGNESIUM Routine 01/10/2025 5:21 AM EDT PHOSPHORUS Routine 01/10/2025 5:21 AM EDT POCT GLUCOSE Routine 01/10/2025 5:08 AM EDT POCT GLUCOSE Routine 01/10/2025 12:39 AM EDT POCT GLUCOSE Routine 01/09/2025 9:17 PM EDT POCT GLUCOSE Routine 01/09/2025 6:56 PM EDT POCT GLUCOSE Routine 01/09/2025 3:33 PM EDT TRANSTHORACIC ECHO (TTE) COMPLETE WITH CONTRAST STAT 01/09/2025 11:15 AM EDT Paroxysmal ventricular tachycardia (Multi) POCT GLUCOSE Routine 01/09/2025 10:48 AM EDT ECG 12-LEAD STAT 01/09/2025 10:04 AM EDT HEPARIN ASSAY Timed 01/09/2025 9:56 AM EDT SST TOP Routine 01/09/2025 9:55 AM EDT EXTRA TUBES Routine 01/09/2025 9:55 AM EDT CARDIAC DEVICE CHECK - REMOTE Routine 01/09/2025 7:49 AM EDT Ventricular tachycardia (Multi) CBC Routine 01/09/2025 6:39 AM EDT HEPARIN ASSAY Timed 01/09/2025 5:52 AM EDT COMPREHENSIVE METABOLIC PANEL Routine 01/09/2025 5:52 AM EDT MAGNESIUM Routine 01/09/2025 5:52 AM EDT PHOSPHORUS Routine 01/09/2025 5:52 AM EDT HEPARIN ASSAY Timed 01/09/2025 1:48 AM EDT MRSA SURVEILLANCE FOR VANCOMYCIN DE-ESCALATION, PCR Routine 01/09/2025 12:34 AM EDT URINALYSIS WITH REFLEX MICROSCOPIC Routine 01/08/2025 11:59 PM EDT LEGIONELLA ANTIGEN, URINE Routine 01/08/2025 11:59 PM EDT STREPTOCOCCUS PNEUMONIAE ANTIGEN, URINE Routine 01/08/2025 11:59 PM EDT VERAB/VERIFY ABORH STAT 01/08/2025 10:39 PM EDT POCT GLUCOSE Routine 01/08/2025 10:38 PM EDT PROCALCITONIN TEST Routine 01/08/2025 9: 34 PM EDT RSV PCR Routine 01/08/2025 9:33 PM EDT SARS-COV-2 AND INFLUENZA A/B PCR Routine 01/08/2025 9:33 PM EDT STAPHYLOCOCCUS AUREUS/MRSA COLONIZATION, CULTURE Routine 01/08/2025 9:33 PM EDT SST TOP Routine 01/08/2025 9:31 PM EDT EXTRA TUBES Routine 01/08/2025 9:31 PM EDT LACTATE Routine 01/08/2025 8:47 PM EDT BLOOD CULTURE Routine 01/08/2025 8:47 PM EDT BB ORDER ONLY - ANTIBODY IDENTIFICATION Routine 01/08/2025 8:46 PM EDT TYPE AND SCREEN Routine 01/08/2025 8:46 PM EDT SERIAL TROPONIN, 1 HOUR STAT 01/08/2025 8:46 PM EDT XR CHEST 1 VIEW STAT 01/08/2025 8:06 PM EDT ECG 12-LEAD STAT 01/08/2025 7:50 PM EDT B-TYPE NATRIURETIC PEPTIDE Add-On 01/08/2025 7:21 PM EDT HEMOGLOBIN A1C Add-On 01/08/2025 7:21 PM EDT TSH WITH REFLEX TO FREE T4 IF ABNORMAL Add-On 01/08/2025 7:21 PM EDT SERIAL TROPONIN-INITIAL STAT 01/08/2025 7:21 PM EDT COMPREHENSIVE METABOLIC PANEL Routine 01/08/2025 7:21 PM EDT CBC WITH AUTO DIFFERENTIAL Routine 01/08/2025 7:21 PM EDT COAGULATION SCREEN Routine 01/08/2025 7: 21 PM EDT PHOSPHORUS Routine 01/08/2025 7:21 PM EDT MAGNESIUM Routine 01/08/2025 7:21 PM EDT TROPONIN SERIES- (INITIAL, 1 HR) STAT 01/08/2025 7:21 PM EDT PULSE OXIMETRY, CONTINUOUS Routine 01/08/2025 7:04 PM EDT CARDIAC DEVICE CHECK - REMOTE Routine 01/06/2025 9:29 AM EST ICD (implantable cardioverter-defi brillator) in place Paroxysmal ventricular tachycardia (Multi) CARDIAC DEVICE CHECK - REMOTE Routine 01/02/2025 8:54 AM EST ICD (implantable cardioverter-defi brillator) in place Paroxysmal ventricular tachycardia (Multi) from Last 3 Months Results * CARDIAC DEVICE CHECK - REMOTE - ICD (03/09/2025 9:38 AM EDT) Only the most recent of4 resultswithin the time period is included. Anatomical Region Laterality Modality Monitor/Device 03/09/2025 6:00 AM EDT us June Preston MD CV IMPLANTABLE CARDIAC DEVICE OR OCEDURES Final Result * Nuclear Stress Test - Onbase Scan (02/10/2025) Narrative 02/10/2025 Ordered by an unspecified provider. us Generic Provider Scanning CV STRESS PROCEDURES F inal Result * OUTSIDE IMAGING SCAN (02/10/2025) Anatomical Region Laterality Modality Other Narrative 02/10/2025 Ordered by an unspecified provider. us Generic Provider Scanning OUTSIDE SCAN Final Result * OUTSIDE LAB SCAN (02/10/2025) Narrative 02/10/2025 Ordered by an unspecified provider. us Generic Provider Scanning OUTSIDE SCAN Final Result * ECG 12 lead (Clinic Performed) (02/07/2025 11:30 AM EDT) Only the most recent of7 resultswithin the time period is included. Narrative CPACS - 02/07/2025 12:56 PM EDT Normal sinus rhythm, possible left atrial enlargement, prior anterior infarction, heart rate 66 bpm us Kervin Fair MD ECG ORDERABLES Final Result [facility] * POCT GLUCOSE (01/14/2025 10:38 AM EDT) POCT Glucose 90 74 - 99 mg/dL 01/14/2025 10:40 AM EDT [facility] Blood Capillary blood specimen / Unknown 01/14/2025 10:38 AM EDT 01/14/2025 10:40 AM EDT Gayle Max MD LAB POINT OF CAR E TEST DOCKED DEVICE UNSOLICITED RESULTS Final Result [facility] [address] [place] [address] * (ABNORMAL) POCT GLUCOSE (01/14/2025 6:29 AM EDT) POCT Glucose 100(H) 74 - 99 mg/dL 01/14/2025 6:31 AM EDT [facility] Blood Capillary blood specimen / Unknown 01/14/2025 6:29 AM EDT 01/14/2025 6:31 AM EDT Gayle Max MD LAB POINT OF CAR E TEST DOCKED DEVICE UNSOLICITED RESULTS Final Result Performing Organization Address [facility] Co de Phone Number [facility] [address] [place] [address] * Phosphorus (01/14/2025 5:22 AM EDT) Only the most recent of7 resultswithin the time period is included. Phosphorus 3.1 2.5 - 4.9 mg/dL LAB CHEMISTRY METHOD 01/14/2025 6:34 AM EDT [facility] Comment:The performance selena acteristics of phosphorus testing in heparinized plasma have been validated by the individual laboratory site where testing is performed. Testing on heparinized plasma is not approved by the FDA; however, such approval is not necessary. Blood Venous blood specimen / Unknown Venipuncture / Unknown 01/14/2025 5:22 AM EDT 01/14/2025 6:09 AM EDT Srinivasa Michelle MD LAB BLOOD ORDERABLES Final Result [facility] [address] [place] [address] * (ABNORMAL) Magnesium (01/14/2025 5:22 AM EDT) Only the most recent of7 resultswithin the time period is included. Magnesium 1.55(L) 1.60 - 2.40 mg/dL LAB CHEMISTRY METHOD 01/14/2025 6:34 AM EDT [facility] Blood Venous blood specimen / Unknown Venipuncture / Unknown 01/14/2025 5:22 AM EDT 01/14/2025 6:09 AM EDT us Srinivasa Michelle MD LAB BLOOD ORDERABLES Final Result [facility] [address] [place] [address] * (ABNORMAL) POCT GLUCOSE (01/13/2025 9:33 PM EDT) POCT Glucose 114(H) 74 - 99 mg/dL 01/13/2025 9:35 PM EDT [facility] Blood Capillary blood specimen / Unknown 01/13/2025 9:33 PM EDT 01/13/2025 9:35 PM EDT us Gayle Max MD LAB POINT OF CAR E TEST DOCKED DEVICE UNSOLICITED RESULTS Final Result [facility] [address] [place] [address] * POCT GLUCOSE (01/13/2025 4:22 PM EDT) POCT Glucose 90 74 - 99 mg/dL 01/13/2025 4:23 PM EDT [facility] Blood Capillary blood specimen / Unknown 01/13/2025 4:22 PM EDT 01/13/2025 4:23 PM EDT us Gayle Max MD LAB POINT OF CAR E TEST DOCKED DEVICE UNSOLICITED RESULTS Final Result Performing Organization Address [facility]/ZIP Co de Phone Number [facility] [address] [place] [address] * (ABNORMAL) POCT GLUCOSE (01/13/2025 11:05 AM EDT) POCT Glucose 106(H) 74 - 99 mg/dL 01/13/2025 11:07 AM EDT [facility] Blood Capillary blood specimen / Unknown 01/13/2025 11:05 AM EDT 01/13/2025 11:07 AM EDT us Gayle Max MD LAB POINT OF CAR E TEST DOCKED DEVICE UNSOLICITED RESULTS Final Result Performing Organization Address [facility] Co de Phone Number [facility] [address] [place] [address] * POCT GLUCOSE (01/13/2025 7:26 AM EDT) POCT Glucose 82 74 - 99 mg/dL 01/13/2025 7:27 AM EDT [facility] Blood Capillary blood specimen / Unknown 01/13/2025 7:26 AM EDT 01/13/2025 7:27 AM EDT us Gayle Max MD LAB POINT OF CAR E TEST DOCKED DEVICE UNSOLICITED RESULTS Final Result Performing Organization Address [facility] Co de Phone Number [facility] [address] [place] [address] * (ABNORMAL) Basic Metabolic Panel (01/13/2025 5:23 AM EDT) Only the most recent of3 resultswithin the time period is included. Glucose 80 74 - 99 mg/dL LAB CHEMISTRY METHOD 01/13/2025 6:28 AM EDT [facility] Sodium 132(L) 136 - 145 mmol/L LAB CHEMISTRY METHOD 01/13/2025 6:28 AM EDT [facility] Potassium 3.6 3.5 - 5.3 mmol/L LAB CHEMISTRY METHOD 01/13/2025 6:28 AM EDT [facility] Chloride 99 98 - 107 mmol/L LAB CHEMISTRY METHOD 01/13/2025 6:28 AM EDT [facility] Bicarbonate 27 21 - 32 mmol/L LAB CHEMISTRY METHOD 01/13/2025 6:28 AM EDT [facility] Anion Gap 10 10 - 20 mmol/L LAB CHEMISTRY METHOD 01/13/2025 6:28 AM EDT [facility] Urea Nitrogen 7 6 - 23 mg/dL LAB CHEMISTRY METHOD 01/13/2025 6:28 AM EDT [facility] Creatinine 0.44(L) 0.50 - 1.05 mg/dL LAB CHEMISTRY METHOD 01/13/2025 6:28 AM EDT [facility] eGFR >90 >60 mL/min/1. 73m*2 LAB CHEMISTRY METHOD 01/13/2025 6:28 AM EDT [facility] Comment: Calculations of estimated GFR are performed using the 2020 CKD-EPI Study Refit equation without the race variable for the IDMS-Traceable creatinine methods. https://jasn.asnjournals.org/content//ASN.3051844495 Calcium 8.2(L) 8.6 - 10.3 mg/dL LAB CHEMISTRY METHOD 01/13/2025 6:28 AM EDT [facility] Blood Venous blood specimen / Unknown Venipuncture / Unknown 01/13/2025 5:23 AM EDT 01/13/2025 5:54 AM EDT us Gayle Max MD LAB BLOOD ORDERABLES Fin al Result [facility] [address] [place] [address] * Lavender Top (01/13/2025 5:19 AM EDT) Extra Tube Hold for add-ons. 01/13/2025 7:01 AM EDT [facility] Comment:Auto resulted. Blood Venous blood specimen / Unknown 01/13/2025 5:19 AM EDT 01/13/2025 5:56 AM EDT us Gayle Max MD LAB BLOOD ORDERABLES Fin al Result [facility] [address] [place] [address] * POCT GLUCOSE (01/13/2025 12:27 AM EDT) POCT Glucose 89 74 - 99 mg/dL 01/13/2025 12:29 AM EDT [facility] Blood Capillary blood specimen / Unknown 01/13/2025 12:27 AM EDT 01/13/2025 12:29 AM EDT us Gayle Max MD LAB POINT OF CAR E TEST DOCKED DEVICE UNSOLICITED RESULTS Final Result Performing Organization Address [facility]/ZIP Co de Phone Number [facility] [address] [place] [address] * (ABNORMAL) POCT GLUCOSE (01/12/2025 7:39 PM EDT) [facility] POCT Glucose 157(H) 74 - 99 mg/dL 01/12/2025 7:41 PM EDT [facility] Blood Capillary blood specimen / Unknown 01/12/2025 7:39 PM EDT 01/12/2025 7:41 PM EDT us Gayle Max MD LAB POINT OF CAR E TEST DOCKED DEVICE UNSOLICITED RESULTS Final Result Performing Organization Address City/[facility]/ZIP Co de Phone Number [facility] [address] [place] [address] * POCT GLUCOSE (01/12/2025 4:08 PM EDT) POCT Glucose 92 74 - 99 mg/dL 01/12/2025 4:10 PM EDT [facility] Blood Capillary blood specimen / Unknown 01/12/2025 4:08 PM EDT 01/12/2025 4:10 PM EDT us Gayle Max MD LAB POINT OF CAR E TEST DOCKED DEVICE UNSOLICITED RESULTS Final Result [facility] [address] [place] [address] * POCT GLUCOSE (01/12/2025 11:02 AM EDT) POCT Glucose 93 74 - 99 mg/dL 01/12/2025 11:04 AM EDT [facility] Blood Capillary blood specimen / Unknown 01/12/2025 11:02 AM EDT 01/12/2025 11:04 AM EDT us Gayle Max MD LAB POINT OF CAR E TEST DOCKED DEVICE UNSOLICITED RESULTS Final Result Performing Organization Address [facility] Co de Phone Number [facility] [address] [place] [address] * (ABNORMAL) POCT GLUCOSE (01/12/2025 7:02 AM EDT) POCT Glucose 113(H) 74 - 99 mg/dL 01/12/2025 7:03 AM EDT [facility] Blood Capillary blood specimen / Unknown 01/12/2025 7:02 AM EDT 01/12/2025 7:03 AM EDT us Gayle Max MD LAB POINT OF CAR E TEST DOCKED DEVICE UNSOLICITED RESULTS Final Result Performing Organization Address City/[facility]/ZIP Co de Phone Number [facility] [address] [place] [address] * POCT GLUCOSE (01/12/2025 6:39 AM EDT) POCT Glucose 77 74 - 99 mg/dL 01/12/2025 6:40 AM EDT [facility] Blood Capillary blood specimen / Unknown 01/12/2025 6:39 AM EDT 01/12/2025 6:40 AM EDT us Gayle Max MD LAB POINT OF CAR E TEST DOCKED DEVICE UNSOLICITED RESULTS Final Result [facility] [address] [place] [address] * (ABNORMAL) CBC (01/12/2025 5:19 AM EDT) Only the most recent of4 resultswithin the time period is included. WBC 7.6 4.4 - 11.3 x10*3/uL LAB HEMATOLOGY METHOD 01/12/2025 6:13 AM EDT [facility] nRBC 0.0 0.0 - 0.0 /100 WBCs LAB HEMATOLOGY METHOD 01/12/2025 6:13 AM [facility] RBC 3.54(L) 4.00 - 5.20 x10*6/uL LAB HEMATOLOGY METHOD 01/12/2025 6:13 AM [facility] Hemoglobin 8.7(L) 12.0 - 16.0 g/dL LAB HEMATOLOGY METHOD 01/12/2025 6:13 AM EDT [facility] Hematocrit 26.1(L) 36.0 - 46.0 % LAB HEMATOLOGY METHOD 01/12/2025 6:13 AM [facility] MCV 74(L) 80 - 100 fL LAB HEMATOLOGY METHOD 01/12/2025 6:13 AM [facility] MCH 24.6(L) 26.0 - 34.0 pg LAB HEMATOLOGY METHOD 01/12/2025 6:13 AM [facility] MCHC 33.3 32.0 - 36.0 g/dL LAB HEMATOLOGY METHOD 01/12/2025 6:13 AM EDT [facility] RDW 17.1(H) 11.5 - 14.5 % LAB HEMATOLOGY METHOD 01/12/2025 6:13 AM EDT [facility] Platelets 244 150 - 450 x10*3/uL LAB HEMATOLOGY METHOD 01/12/2025 6:13 AM EDT [facility] Blood Venous blood specimen / Unknown Venipuncture / Unknown 01/12/2025 5:19 AM EDT 01/12/2025 6:06 AM EDT us Gayle Max MD LAB BLOOD ORDERABLES Fin al Result Performing Organization Address City/[facility]/ZIP Co de Phone Number [facility] [address] [place] [address] * POCT GLUCOSE (01/11/2025 8:48 PM EDT) POCT Glucose 98 74 - 99 mg/dL 01/11/2025 8:50 PM EDT [facility] Blood Capillary blood specimen / Unknown 01/11/2025 8:48 PM EDT 01/11/2025 8:50 PM EDT us Gayle Max MD LAB POINT OF CAR E TEST DOCKED DEVICE UNSOLICITED RESULTS Final Result Performing Organization Address [facility]/ZIP Co de Phone Number [facility] [address] [place] [address] * POCT GLUCOSE (01/11/2025 4:05 PM EDT) POCT Glucose 89 74 - 99 mg/dL 01/11/2025 4:07 PM EDT [facility] Blood Capillary blood specimen / Unknown 01/11/2025 4:05 PM EDT 01/11/2025 4:07 PM EDT us Gayle Max MD LAB POINT OF CAR E TEST DOCKED DEVICE UNSOLICITED RESULTS Final Result [facility] [address] [place] [address] * POCT GLUCOSE (01/11/2025 11:04 AM EDT) [facility] POCT Glucose 91 74 - 99 mg/dL 01/11/2025 11:06 AM EDT [facility] Blood Capillary blood specimen / Unknown 01/11/2025 11:04 AM EDT 01/11/2025 11:06 AM EDT Gayle Max MD LAB POINT OF CAR E TEST DOCKED DEVICE UNSOLICITED RESULTS Final Result Performing Organization Address [facility] Co de Phone Number [facility] [address] [place] [address] * Stool Pathogen Panel, PCR (01/11/2025 10:31 AM EDT) [facility] Campylobacter Group Not Detected Not Detected 01/12/2025 7:00 AM EDT [facility] Salmonella species Not Detected Not Detected 01/12/2025 7:00 AM EDT [facility] Shigella species Not Detected Not Detected 01/12/2025 7:00 AM EDT [facility] Vibrio Group Not Detected Not Detected 01/12/2025 7:00 AM EDT [facility] Yersinia Enterocolitica Not Detected Not Detected 01/12/2025 7:00 AM EDT [facility] Shiga Toxin 1 Not Detected Not Detected 01/12/2025 7:00 AM EDT [facility] Shiga Toxin 2 Not Detected Not Detected 01/12/2025 7:00 AM EDT [facility] Norovirus GI/GII Not Detected Not Detected 01/12/2025 7:00 AM EDT [facility] Rotavirus A Not Detected Not Detected 01/12/2025 7:00 AM EDT [facility] Stool Stool / Unknown 01/11/2025 1 0:31 AM EDT 01/11/2025 10:38 AM EDT us Gayle Max MD LAB MICROBIOLOGY - GENER AL ORDERABLES Final Result [facility] [address] [address] * (ABNORMAL) POCT GLUCOSE (01/11/2025 6:32 AM EDT) POCT Glucose 123(H) 74 - 99 mg/dL 01/11/2025 6:33 AM EDT [facility] Blood Capillary blood specimen / Unknown 01/11/2025 6:32 AM EDT 01/11/2025 6:33 AM EDT us Gayle Max MD LAB POINT OF CAR E TEST DOCKED DEVICE UNSOLICITED RESULTS Final Result Performing Organization Address City/[facility]/ZIP Co de Phone Number [facility] [address] [place] [address] * (ABNORMAL) POCT GLUCOSE (01/10/2025 11:36 PM EDT) POCT Glucose 115(H) 74 - 99 mg/dL 01/10/2025 11:38 PM EDT [facility] Blood Capillary blood specimen / Unknown 01/10/2025 11:36 PM EDT 01/10/2025 11:38 PM EDT us Gayle Max MD LAB POINT OF CAR E TEST DOCKED DEVICE UNSOLICITED RESULTS Final Result [facility] [address] [place] [address] * (ABNORMAL) POCT GLUCOSE (01/10/2025 7:46 PM EDT) POCT Glucose 108(H) 74 - 99 mg/dL 01/10/2025 7:48 PM EDT [facility] Blood Capillary blood specimen / Unknown 01/10/2025 7:46 PM EDT 01/10/2025 7:48 PM EDT us Gayle Max MD LAB POINT OF CAR E TEST DOCKED DEVICE UNSOLICITED RESULTS Final Result [facility] [address] [place] [address] * (ABNORMAL) POCT GLUCOSE (01/10/2025 2:44 PM EDT) [facility] POCT Glucose 108(H) 74 - 99 mg/dL 01/10/2025 2:46 PM EDT [facility] Blood Capillary blood specimen / Unknown 01/10/2025 2:44 PM EDT 01/10/2025 2:46 PM EDT us Gayle Max MD LAB POINT OF CAR E TEST DOCKED DEVICE UNSOLICITED RESULTS Final Result Performing Organization Address City/[facility]/ZIP Co de Phone Number [facility] [address] [place] [address] * Heparin Assay (01/10/2025 11:56 AM EDT) Only the most recent of5 resultswithin the time period is included. [facility] Heparin Unfractionated 0.3 See Comment Below for Therapeutic Ranges IU/mL LAB COAGULATION METHOD 01/10/2025 12:14 PM EDT [facility] Blood Venous blood specimen / Unknown Venipuncture / Unknown 01/10/2025 11:56 AM EDT 01/10/2025 11:59 AM EDT Narrative [facility] - 01/10/2025 12:14 PM EDT The therapeutic reference range for UFH may be either 0.3-0.6 IU/mL or 0.3-0.7 IU/mL based on the clinical setting for anticoagulant therapy and the associated nomogram used. For Heparin dosing guidelines based on clinical scenario and Heparin Assay results, please refer to local Pharmacy and the [facility] Guidelines for Anticoagulation Therapy available on the [facility] intranet at: [email or web address] us Gayle Max MD LAB BLOOD ORDERABLES Fin al Result [facility] [address] [place] [address] * POCT GLUCOSE (01/10/2025 10:54 AM EDT) POCT Glucose 79 74 - 99 mg/dL 01/10/2025 10:56 AM EDT [facility] Blood Capillary blood specimen / Unknown 01/10/2025 10:54 AM EDT 01/10/2025 10:56 AM EDT us Gayle Max MD LAB POINT OF CAR E TEST DOCKED DEVICE UNSOLICITED RESULTS Final Result Performing Organization Address [facility]/ZIP Co de Phone Number [facility] [address] [place] [address] * POCT GLUCOSE (01/10/2025 6:48 AM EDT) POCT Glucose 94 74 - 99 mg/dL 01/10/2025 6:49 AM EDT [facility] Blood Capillary blood specimen / Unknown 01/10/2025 6:48 AM EDT 01/10/2025 6:49 AM EDT us Gayle Max MD LAB POINT OF CAR E TEST DOCKED DEVICE UNSOLICITED RESULTS Final Result Performing Organization Address [facility]/ZIP Co de Phone Number [facility] [address] [place] [address] * (ABNORMAL) Comprehensive Metabolic Panel (01/10/2025 5:21 AM EDT) Only the most recent of3 resultswithin the time period is included. Glucose 84 74 - 99 mg/dL LAB CHEMISTRY METHOD 01/10/2025 6:46 AM [facility] Sodium 128(L) 136 - 145 mmol/L LAB CHEMISTRY METHOD 01/10/2025 6:46 AM [facility] Potassium 3.6 3.5 - 5.3 mmol/L LAB CHEMISTRY METHOD 01/10/2025 6:46 AM [facility] Chloride 95(L) 98 - 107 mmol/L LAB CHEMISTRY METHOD 01/10/2025 6:46 AM [facility] Bicarbonate 23 21 - 32 mmol/L LAB CHEMISTRY METHOD 01/10/2025 6:46 AM [facility] Anion Gap 14 10 - 20 mmol/L LAB CHEMISTRY METHOD 01/10/2025 6:46 AM [facility] Urea Nitrogen 11 6 - 23 mg/dL LAB CHEMISTRY METHOD 01/10/2025 6:46 AM [facility] Creatinine 0.61 0.50 - 1.05 mg/dL LAB CHEMISTRY METHOD 01/10/2025 6:46 AM [facility] eGFR >90 >60 mL/min/1. 73m*2 LAB CHEMISTRY METHOD 01/10/2025 6:46 AM [facility] Comment: Calculations of estimated GFR are performed using the 2020 CKD-EPI Study Refit equation without the race variable for the IDMS-Traceable creatinine methods. https://jasn.asnjournals.org/content///ASN.0931651189 Calcium 8.0(L) 8.6 - 10.3 mg/dL LAB CHEMISTRY METHOD 01/10/2025 6:46 AM [facility] Albumin 2.9(L) 3.4 - 5.0 g/dL LAB CHEMISTRY METHOD 01/10/2025 6:46 AM [facility] Alkaline Phosphatase 35 33 - 136 U/L LAB CHEMISTRY METHOD 01/10/2025 6:46 AM [facility] Total Protein 5.7(L) 6.4 - 8.2 g/dL LAB CHEMISTRY METHOD 01/10/2025 6:46 AM [facility] AST 37 9 - 39 U/L LAB CHEMISTRY METHOD 01/10/2025 6:46 AM EDT [facility] Bilirubin, Total 0.2 0.0 - 1.2 mg/dL LAB CHEMISTRY METHOD 01/10/2025 6:46 AM EDT [facility] ALT 23 7 - 45 U/L LAB CHEMISTRY METHOD 01/10/2025 6:46 AM EDT [facility] Comment:Patients treated wit h Sulfasalazine may generate falsely decreased results for ALT. Blood Venous blood specimen / Unknown Venipuncture / Unknown 01/10/2025 5:21 AM EDT 01/10/2025 6:09 AM EDT us Srinivasa Michelle MD LAB BLOOD ORDERABLES Final Result [facility] [address] [place] [address] * POCT GLUCOSE (01/10/2025 5:08 AM EDT) POCT Glucose 93 74 - 99 mg/dL 01/10/2025 5:11 AM EDT [facility] Blood Capillary blood specimen / Unknown 01/10/2025 5:08 AM EDT 01/10/2025 5:11 AM EDT us Gayle Max MD LAB POINT OF CAR E TEST DOCKED DEVICE UNSOLICITED RESULTS Final Result Performing Organization Address City/[facility]/ZIP Co de Phone Number [facility] [address] [place] [address] * (ABNORMAL) POCT GLUCOSE (01/10/2025 12:39 AM EDT) POCT Glucose 104(H) 74 - 99 mg/dL 01/10/2025 12:42 AM EDT [facility] Blood Capillary blood specimen / Unknown 01/10/2025 12:39 AM EDT 01/10/2025 12:42 AM EDT us Gayle Max MD LAB POINT OF CAR E TEST DOCKED DEVICE UNSOLICITED RESULTS Final Result Performing Organization Address [facility]/ZIP Co de Phone Number [facility] [address] [place] [address] * POCT GLUCOSE (01/09/2025 9:17 PM EDT) POCT Glucose 91 74 - 99 mg/dL 01/09/2025 9:38 PM EDT [facility] Blood Capillary blood specimen / Unknown 01/09/2025 9:17 PM EDT 01/09/2025 9:38 PM EDT us Gayle Max MD LAB POINT OF CAR E TEST DOCKED DEVICE UNSOLICITED RESULTS Final Result Performing Organization Address [facility] Co de Phone Number [facility] [address] [place] [address] * POCT GLUCOSE (01/09/2025 6:56 PM EDT) POCT Glucose 81 74 - 99 mg/dL 01/09/2025 6:58 PM EDT [facility] Blood Capillary blood specimen / Unknown 01/09/2025 6:56 PM EDT 01/09/2025 6:58 PM EDT us Michelle Snowden MD LAB POINT OF CARE TEST DOCKED DEVICE UNSOLICITED RESULTS Final Result Performing Organization Address [facility]/ZIP Co de Phone Number [facility] [address] [place] [address] * (ABNORMAL) POCT GLUCOSE (01/09/2025 3:33 PM EDT) POCT Glucose 104(H) 74 - 99 mg/dL 01/09/2025 3:35 PM EDT [facility] Blood Capillary blood specimen / Unknown 01/09/2025 3:33 PM EDT 01/09/2025 3:35 PM EDT us Michelle Snowden MD LAB POINT OF CARE TEST DOCKED DEVICE UNSOLICITED RESULTS Final Result [facility] [address] [place] [address] * TRANSTHORACIC ECHO (TTE) COMPLETE WITH CONTRAST (01/09/2025 11:15 AM EDT) AV mn grad 4 mmHg SYNGO AV pk al 1.39 m/s SYNGO LV Biplane EF 30 % SYNGO LVOT diam 1.87 cm SYNGO MV E/A ratio 1.21 SYNGO Tricuspid annular plane systolic excursion 2.2 cm SYNGO LA vol index A/L 35.3 ml/m2 SYNGO LV EF 35 % SYNGO RV free wall pk S' 10.80 cm/s SYNGO RVSP 36.4 mmHg SYNGO LVIDd 4.89 cm SYNGO Aortic Valve Area by Continuity of Peak Velocity 2.27 cm2 SYNGO AV pk grad 8 mmHg SYNGO Aortic Valve Area by Continuity of VTI 2.24 cm2 SYNGO LV A4C EF 30.9 SYNGO 01/09/2025 10:4 0 AM EDT Narrative [facility] - 01/10/2025 8:51 AM EDT [address] [address] TRANSTHORACIC ECHOCARDIOGRAM REPORT Patient Name: KING Gregory Physician: [id number] Augustus Issa DO Study Date: 01/09/2025 Ordering Provider: [id number] DANI DODGE MRN/PID: [id number] Fellow: Nurse: Date of /Age: 1 1960 / 64 years Software Quality Manager: Gege Balbuena RDCS Gender Assigned at F Additional Staff: : Height: 157.48 cm Admit Date: 01/08/2025 Weight: 67.59 kg Admission Status: Inpatient - Routine BSA / BMI: 1.69 m2 / 27.25 Department Location: [facility] kg/m2 Blood Pressure: 101 /55 mmHg Study Type: TRANSTHORACIC ECHO (TTE) COMPLETE Diagnosis/ICD: Ventricular tachycardia, other-I47.29 Indication: Multiple ICD firings CPT Codes: Echo Complete w Full Doppler-[id number] Patient History: Pacer/Defib: AICD Pertinent History: HTN, Hyperlipidemia, CHF, Cardiomyopathy, A-Fib, COPD, PE and VTACH. Study Detail: The following Echo studies were performed: 2D, M-Mode, Doppler and color flow. Technically challenging study due to prominent lung artifact. Definity used as a contrast agent for endocardial border definition. Total contrast used for this procedure was 3 mL via IV push. The patient was awake. PHYSICIAN INTERPRETATION: Left Ventricle: The left ventricular systolic function is moderately decreased, with a visually estimated ejection fraction of 35%. Wall motion is abnormal. The left ventricular cavity size is normal. There is mild increased septal and normal posterior left ventricular wall thickness. Spectral Doppler shows a Grade II (pseudonormal pattern) of left ventricular diastolic filling with an elevated left atrial pressure. LV Wall Scoring: The RCA distribution and basal and mid inferolateral wall are hypokinetic. Left Atrium: The left atrial size is mildly dilated. Right Ventricle: The right ventricle is normal in size. There is normal right ventricular global systolic function. A device is visualized in the right ventricle. Right Atrium: The right atrial size is normal. There is a device visualized in the right atrium. Aortic Valve: The aortic valve appears structurally normal. There is no evidence of aortic valve stenosis. The aortic valve dimensionless index is 0.81. There is no evidence of aortic valve regurgitation. The peak instantaneous gradient of the aortic valve is 8 mmHg. The mean gradient of the aortic valve is 4 mmHg. Mitral Valve: The mitral valve is normal in structure. There is no evidence of mitral valve stenosis. There is normal mitral valve leaflet mobility. There is moderate mitral valve regurgitation. Tricuspid Valve: The tricuspid valve is structurally normal. There is normal tricuspid valve leaflet mobility. There is trace to mild tricuspid regurgitation. Pulmonic Valve: The pulmonic valve is structurally normal. There is no indication of pulmonic valve regurgitation. Pericardium: Trivial pericardial effusion. Aorta: The aortic root is normal. Pulmonary Artery: The main pulmonary artery is normal in size, and position, with normal bifurcation into the left and right pulmonary arteries. The tricuspid regurgitant velocity is 2.89 m/s, and with an estimated right atrial pressure of 3 mmHg, the estimated pulmonary artery pressure is mildly elevated with the RVSP at 36.4 mmHg. Systemic Veins: The inferior vena cava appears normal in size. In comparison to the previous echocardiogram(s): The left ventricular function is unchanged. The left ventricular diastolic function is unchanged. CONCLUSIONS: 1. RCA distribution and basal and mid inferolateral wall are abnormal. 2. The left ventricular systolic function is moderately decreased, with a visually estimated ejection fraction of 35%. 3. Abnormal wall motion. 4. Spectral Doppler shows a Grade II (pseudonormal pattern) of left ventricular diastolic filling with an elevated left atrial pressure. 5. There is normal right ventricular global systolic function. 6. Normal sized right ventricle. 7. There is no evidence of mitral valve stenosis. 8. Moderate mitral valve regurgitation. 9. Trace to mild tricuspid regurgitation. 10. Aortic valve stenosis is not present. 11. The main pulmonary artery is normal in size, and position, with normal bifurcation into the left and right pulmonary arteries. QUANTITATIVE DATA SUMMARY: 2D MEASUREMENTS: Normal Ranges: Ao Root d: 2.63 cm (2.0-3.7cm) LAs: 4.07 cm (2.7-4.0cm) IVSd: 1.06 cm (0.6-1.1cm) LVPWd: 0.62 cm (0.6-1.1cm) LVIDd: 4.89 cm (3.9-5.9cm) LVIDs: 4.22 cm LV Mass Index: 82.8 g/m2 LVEDV Index: 76.79 ml/m2 LV % FS 13.7 % LEFT ATRIUM: Normal Ranges: LA Vol A4C: 58.4 ml (22+/-6mL/m2) LA Vol A2C: 55.0 ml LA Vol BP: 59.6 ml LA Vol Index A4C: 34.6ml/m2 LA Vol Index A2C: 32.6 ml/m2 LA Vol Index BP: 35.3 ml/m2 LA Area A4C: 20.8 cm2 LA Area A2C: 19.2 cm2 LA Major [place] A4C: 6.3 cm LA Major [place] A2C: 5.7 cm LA Volume Index: 33.4 ml/m2 RIGHT ATRIUM: Normal Ranges: RA Vol A4C: 32.8 ml (8.3-19.5ml) RA Vol Index A4C: 19.4 ml/m2 RA Area A4C: 13.1 cm2 RA Major [place] A4C: 4.4 cm LV SYSTOLIC FUNCTION: Normal Ranges: EF-A4C View: 31 % (>=55%) EF-A2C View: 33 % EF-Biplane: 30 % EF-Visual: 35 % LV EF Reported: 35 % LV DIASTOLIC FUNCTION: Normal Ranges: MV Peak E: 1.20 m/s (0.7-1.2 m/s) MV Peak A: 1.00 m/s (0.42-0.7 m/s) E/A Ratio: 1.21 (1.0-2.2) MV e' 0.080 m/s (>8.0) MV lateral e' 0.09 m/s MV medial e' 0.07 m/s E/e' Ratio: 14.91 (<8.0) MITRAL VALVE: Normal Ranges: MV DT: 281 msec (150-240msec) AORTIC VALVE: Normal Ranges: AoV Vmax: 1.39 m/s (<=1.7m/s) AoV Peak P.7 mmHg (<20mmHg) AoV Mean P.0 mmHg (1.7-11.5mmHg) LVOT Max Al: 1.15 m/s (<=1.1m/s) AoV VTI: 29.00 cm (18-25cm) LVOT VTI: 23.60 cm LVOT Diameter: 1.87 cm (1.8-2.4cm) AoV Area, VTI: 2.24 cm2 (2.5-5.5cm2) AoV Area,Vmax: 2.27 cm2 (2.5-4.5cm2) AoV Dimensionless Index: 0.81 RIGHT VENTRICLE: RV Basal 2.99 cm RV Mid 2.36 cm RV Major 7.4 cm TAPSE: 22.0 mm RV s' 0.11 m/s TRICUSPID VALVE/RVSP: Normal Ranges: Peak TR Velocity: 2.89 m/s RV Syst Pressure: 36 mmHg (< 30mmHg) IVC Diam: 1.18 cm PULMONIC VALVE: Normal Ranges: PV Accel Time: 129 msec (>120ms) PV Max Al: 1.0 m/s (0.6-0.9m/s) PV Max P.9 mmHg [id number] Augustus Maegan SALAZAR Electronically signed on 01/10/2025 at 8:51:17 AM Wall Scoring Final Procedure Note Augustus Issa DO - 01/10/2025 [place] [address] TRANSTHORACIC ECHOCARDIOGRAM REPORT Patient Name: KING JOSH Reading Physician: Demario Negrete Study Date: 01/09/2025 Ordering Provider: [id number] JAMES DODGE MRN/PID: [id number] Fellow: Nurse: Date of /Age: 1 1960 / 64 years Software Quality Manager: Yana MURPHY Gender Assigned at F Additional Staff: : Height: 157.48 cm Admit Date: 01/08/2025 Weight: 67.59 kg Admission Status: Inpatient- Routine BSA / BMI: 1.69 m2 / 27.25 Department Location: [place] [address] Blood Pressure: 101 /55 mmHg Study Type: TRANSTHORACIC ECHO (TTE) COMPLETE Diagnosis/ICD: Ventricular tachycardia, other-I47.29 Indication: Multiple ICD firings CPT Codes: Echo Complete w Full Doppler-[id number] Patient History: Pacer/Defib: AICD Pertinent History: HTN, Hyperlipidemia, CHF, Cardiomyopathy, A-Fib, COPD,PE and VTACH. Study Detail: The following Echo studies were performed: 2D, M-Mode,Doppler and color flow. Technically challenging study due to prominentlung artifact. Definity used as a contrast agent for endocardialborder definition. Total contrast used for this procedure was 3 mLvia IV push. The patient was awake. PHYSICIAN INTERPRETATION: Left Ventricle: The left ventricular systolic function is moderatelydecreased, with a visually estimated ejection fraction of 35%. Wall motionis abnormal. The left ventricular cavity size is normal. There is mildincreased septal and normal posterior left ventricular wall thickness.Spectral Doppler shows a Grade II (pseudonormal pattern) of leftventricular diastolic filling with an elevated left atrial pressure. LV Wall Scoring: The RCA distribution and basal and mid inferolateral wall arehypokinetic. Left Atrium: The left atrial size is mildly dilated. Right Ventricle: The right ventricle is normal in size. There is normalright ventricular global systolic function. A device is visualized in theright ventricle. Right Atrium: The right atrial size is normal. There is a devicevisualized in the right atrium. Aortic Valve: The aortic valve appears structurally normal. There is noevidence of aortic valve stenosis. The aortic valve dimensionless index is 0.81. There is no evidence ofaortic valve regurgitation. The peak instantaneous gradient of the aorticvalve is 8 mmHg. The mean gradient of the aortic valve is 4 mmHg. Mitral Valve: The mitral valve is normal in structure. There is noevidence of mitral valve stenosis. There is normal mitral valve leafletmobility. There is moderate mitral valve regurgitation. Tricuspid Valve: The tricuspid valve is structurally normal. There isnormal tricuspid valve leaflet mobility. There is trace to mild tricuspidregurgitation. Pulmonic Valve: The pulmonic valve is structurally normal. There is noindication of pulmonic valve regurgitation. Pericardium: Trivial pericardial effusion. Aorta: The aortic root is normal. Pulmonary Artery: The main pulmonary artery is normal in size, andposition, with normal bifurcation into the left and right pulmonaryarteries. The tricuspid regurgitant velocity is 2.89 m/s, and with anestimated right atrial pressure of 3 mmHg, the estimated pulmonary arterypressure is mildly elevated with the RVSP at 36.4 mmHg. Systemic Veins: The inferior vena cava appears normal in size. In comparison to the previous echocardiogram(s): The left ventricularfunction is unchanged. The left ventricular diastolic function isunchanged. CONCLUSIONS: 1. RCA distribution and basal and mid inferolateral wall are abnormal. 2. The left ventricular systolic function is moderately decreased, with avisually estimated ejection fraction of 35%. 3. Abnormal wall motion. 4. Spectral Doppler shows a Grade II (pseudonormal pattern) of leftventricular diastolic filling with an elevated left atrial pressure. 5. There is normal right ventricular global systolic function. 6. Normal sized right ventricle. 7. There is no evidence of mitral valve stenosis. 8. Moderate mitral valve regurgitation. 9. Trace to mild tricuspid regurgitation. 10. Aortic valve stenosis is not present. 11. The main pulmonary artery is normal in size, and position, with normalbifurcation into the left and right pulmonary arteries. QUANTITATIVE DATA SUMMARY: 2D MEASUREMENTS: Normal Ranges: Ao Root d: 2.63 cm (2.0-3.7cm) LAs: 4.07 cm (2.7-4.0cm) IVSd: 1.06 cm (0.6-1.1cm) LVPWd: 0.62 cm (0.6-1.1cm) LVIDd: 4.89 cm (3.9-5.9cm) LVIDs: 4.22 cm LV Mass Index: 82.8 g/m2 LVEDV Index: 76.79 ml/m2 LV % FS 13.7 % LEFT ATRIUM: Normal Ranges: LA Vol A4C: 58.4 ml (22+/-6mL/m2) LA Vol A2C: 55.0 ml LA Vol BP: 59.6 ml LA Vol Index A4C: 34.6ml/m2 LA Vol Index A2C: 32.6 ml/m2 LA Vol Index BP: 35.3 ml/m2 LA Area A4C: 20.8 cm2 LA Area A2C: 19.2 cm2 LA Major [place] A4C: 6.3 cm LA Major [place] A2C: 5.7 cm LA Volume Index: 33.4 ml/m2 RIGHT ATRIUM: Normal Ranges: RA Vol A4C: 32.8 ml (8.3-19.5ml) RA Vol Index A4C: 19.4 ml/m2 RA Area A4C: 13.1 cm2 RA Major [place] A4C: 4.4 cm LV SYSTOLIC FUNCTION: Normal Ranges: EF-A4C View: 31 % (>=55%) EF-A2C View: 33 % EF-Biplane: 30 % EF-Visual: 35 % LV EF Reported: 35 % LV DIASTOLIC FUNCTION: Normal Ranges: MV Peak E: 1.20 m/s (0.7-1.2 m/s) MV Peak A: 1.00 m/s (0.42-0.7 m/s) E/A Ratio: 1.21 (1.0-2.2) MV e' 0.080 m/s (>8.0) MV lateral e' 0.09 m/s MV medial e' 0.07 m/s E/e' Ratio: 14.91 (<8.0) MITRAL VALVE: Normal Ranges: MV DT: 281 msec (150-240msec) AORTIC VALVE: Normal Ranges: AoV Vmax: 1.39 m/s (<=1.7m/s) AoV Peak P.7 mmHg (<20mmHg) AoV Mean P.0 mmHg (1.7-11.5mmHg) LVOT Max Al: 1.15 m/s (<=1.1m/s) AoV VTI: 29.00 cm (18-25cm) LVOT VTI: 23.60 cm LVOT Diameter: 1.87 cm (1.8-2.4cm) AoV Area, VTI: 2.24 cm2 (2.5-5.5cm2) AoV Area,Vmax: 2.27 cm2 (2.5-4.5cm2) AoV Dimensionless Index: 0.81 RIGHT VENTRICLE: RV Basal 2.99 cm RV Mid 2.36 cm RV Major 7.4 cm TAPSE: 22.0 mm RV s' 0.11 m/s TRICUSPID VALVE/RVSP: Normal Ranges: Peak TR Velocity: 2.89 m/s RV Syst Pressure: 36 mmHg (< 30mmHg) IVC Diam: 1.18 cm PULMONIC VALVE: Normal Ranges: PV Accel Time: 129 msec (>120ms) PV Max Al: 1.0 m/s (0.6-0.9m/s) PV Max P.9 mmHg [id number] Augustus Issa DO Electronically signed on 01/10/2025 at 8:51:17 AM Wall Scoring Final us Srinivasa Michelle MD CV ECHO PROCEDURES Final Re sult Performing Organization Address City/[facility]/ZIP Co de Phone Number SYNGO * (ABNORMAL) POCT GLUCOSE (01/09/2025 10:48 AM EDT) POCT Glucose 102(H) 74 - 99 mg/dL 01/09/2025 10:50 AM EDT [facility] Blood Capillary blood specimen / Unknown 01/09/2025 10:48 AM EDT 01/09/2025 10:50 AM EDT us Yonis Fishman MD LAB POINT OF CAR E TEST DOCKED DEVICE UNSOLICITED RESULTS Final Result [facility] [address] [place] [address] * SST TOP (01/09/2025 9:55 AM EDT) Only the most recent of2 resultswithin the time period is included. Pathologist [facility] Extra Tube Hold for add-ons. 01/09/2025 12:02 PM EDT [facility] Comment:Auto resulted. Blood Venous blood specimen / Unknown 01/09/2025 9:55 AM EDT 01/09/2025 10:31 AM EDT Yonis Fishman MD LAB BLOOD ORDERABLES Fin al Result Performing Organization Address City/[facility]/ZIP Co de Phone Number [facility] [address] [place] [phone] * MRSA Surveillance for Vancomycin De-escalation, PCR (01/09/2025 12:34 AM EDT) [facility] MRSA PCR Not Detected Not Detected X_PERT XPRESS SARS-COV2_ CEPHEID_EU A 01/09/2025 2:04 AM EDT [facility] Swab (Anterior Nares) Non-blood Collection / Unknown 01/09/2025 12:34 AM EDT 01/09/2025 12:41 AM EDT Narrative [facility] - 01/09/2025 2:04 AM EDT This assay is an FDA-approved in vitro diagnostic nucleic acid amplification test for the detection of methicillin-resistant Staphylococcus aureus (MRSA) DNA directly from nasal swabs in patients at risk for nasal colonization. MRSA NxG is intended to aid in the prevention and control of MRSA infections in healthcare settings. This assay is NOT intended to diagnose, guide, or monitor treatment for MRSA infections, or provide results of susceptibility to methicillin. A negative result does not preclude MRSA nasal colonization. Test performance has not been evaluated in patients less than two years of age. us Triny Sol PA-C LAB MICROBIOLOGY - GENERAL ORD ERABLES Final Result Performing Organization Address City/[facility]/ZIP Co de Phone Number [facility] [address] [place] [address] * Streptococcus pneumoniae Antigen, Urine (01/08/2025 11:59 PM EDT) Streptococcus pneumoniae Ag, Urine Negative Negative 01/09/2025 11:55 AM EDT [facility] Urine Urine specimen / Unknown Non-blood Collection / Unknown 01/08/2025 11:59 PM EDT 01/09/2025 12:41 AM EDT Triny Sol PA-C LAB MICROBIOLOGY - GENERAL ORD ERABLES Final Result Performing Organization Address City/[facility]/ZIP Co de Phone Number [facility] [address] [place] [phone] * Legionella Antigen, Urine (01/08/2025 11:59 PM EDT) L. pneumophila Urine Ag Negative Negative 01/09/2025 11:55 AM EDT [facility] Urine Urine specimen / Unknown Non-blood Collection / Unknown 01/08/2025 11:59 PM EDT 01/09/2025 12:41 AM EDT Triny Sol PA-C LAB MICROBIOLOGY - GENERAL ORD ERABLES Final Result Performing Organization Address City/[facility]/ZIP Co de Phone Number [facility] [address] [place] [phone] * (ABNORMAL) Urinalysis with Reflex Microscopic (01/08/2025 11:59 PM EDT) Color, Urine Light-Yellow Light-Yellow , Yellow, Dark-Yellow 01/09/2025 1:17 AM EDT [facility] Appearance, Urine Clear Clear 01/09/2025 1:17 AM EDT [facility] Specific [place], Urine 1.009 1.005 - 1.035 01/09/2025 1:17 AM EDT [facility] pH, Urine 5.0 5.0, 5.5, 6.0, 6.5, 7.0, 7.5, 8.0 01/09/2025 1:17 AM EDT [facility] Protein, Urine NEGATIVE NEGATIVE, 10 (TRACE), 20 (TRACE) mg/dL 01/09/2025 1:17 AM T [facility] Glucose, Urine OVER (4+)(A) Normal mg/dL 01/09/2025 1:17 AM EDT [facility] Blood, Urine NEGATIVE NEGATIVE mg/dL 01/09/2025 1:17 AM EDT [facility] Ketones, Urine NEGATIVE NEGATIVE mg/dL 01/09/2025 1:17 AM EDT [facility] Bilirubin, Urine NEGATIVE NEGATIVE mg/dL 01/09/2025 1:17 AM T [facility] Urobilinogen, Urine Normal Normal mg/dL 01/09/2025 1:17 AM T [facility] Nitrite, Urine NEGATIVE NEGATIVE 01/09/2025 1:17 AM T [facility] Leukocyte Esterase, Urine NEGATIVE NEGATIVE 01/09/2025 1:17 AM T [facility] Urine Urine specimen / Unknown Non-blood Collection / Unknown 01/08/2025 11:59 PM EDT 01/09/2025 12:41 AM EDT [facility] - 01/09/2025 1:17 AM EDT OVER is reported when the result is greater than the clinically reportable range. us Triny Sol PA-C LAB URINE ORDERABLES Final Res ult [facility] [address] [place] [address] * VERIFY ABO/Rh Group Test (01/08/2025 10:39 PM EDT) ABO TYPE A 01/08/2025 10:56 PM EDT [facility] Rh TYPE POS 01/08/2025 10:56 PM EDT [facility] Blood Venous blood specimen / Unknown Venipuncture / Unknown 01/08/2025 10:39 PM EDT 01/08/2025 10:43 PM EDT Otis Parekh [facility] TEST ORDERAB LES Final Result Performing Organization Address City/[facility]/ZIP Co de Phone Number [facility] [address] [place] [address], * (ABNORMAL) POCT GLUCOSE (01/08/2025 10:38 PM EDT) [facility] POCT Glucose 106(H) 74 - 99 mg/dL 01/08/2025 10:39 PM EDT [facility] Blood Capillary blood specimen / Unknown 01/08/2025 10:38 PM EDT 01/08/2025 10:39 PM EDT [facility] POINT OF CARE T EST DOCKED DEVICE UNSOLICITED RESULTS Final Result Performing Organization Address City/[facility]/ZIP Co de Phone Number [facility] [address] [place] [address] * (ABNORMAL) Procalcitonin (01/08/2025 9:34 PM EDT) [facility] Procalcitonin 0.39(H) <=0.07 ng/mL LAB CHEMISTRY METHOD 01/09/2025 11:53 AM EDT [facility] Blood Venous blood specimen / Unknown Venipuncture / Unknown 01/08/2025 9:34 PM EDT 01/08/2025 9:38 PM EDT Narrative [facility] - 01/09/2025 11:53 AM EDT Procalcitonin (PCT) results measured serially can aid in decision-making for antibiotic discontinuation in patients with suspected or confirmed sepsis in conjunction with additional clinical information. Antibiotic discontinuation may be considered with a change in PCT of >80% from the peak result or when PCT falls below 0.50 ng/mL. Procalcitonin results should not be used in isolation but should be interpreted in conjunction with additional clinical and laboratory findings. Procalcitonin results should not be used to guide the initiation of antibiotic therapy. Falsely low PCT values in the presence of bacterial infection may occur in early infection, with atypical pathogens, localized infections, and subacute infectious endocarditis. Falsely elevated results outside of severe bacterial infection/sepsis may be seen in patients with renal failure or insufficiency, severe trauma or cooper, recent major abdominal/cardiac surgery, acute multi-organ failure, rarely in patients with medullary thyroid carcinoma and rare neuroendocrine tumors, and non-specific interfering antibodies (heterophile antibodies, rheumatoid factor, human anti-mouse antibodies (HAMA), etc). Performance of the PCT test in pediatric patients (<18yo), women, immunocompromised patients, and patients on immunomodulatory medications has not been evaluated. Triny Sol PA-C LAB BLOOD ORDERABLES Final Res ult [facility] [id number] [place] [address] * RSV PCR (01/08/2025 9:33 PM EDT) Pathologist [facility] RSV PCR Not Detected Not Detected X_PERT XPRESS SARS-COV2_ CEPHEID_EU A 01/08/2025 11:23 PM EDT [facility] Swab Nasopharyngeal swab / Unknown Non-blood Collection / Unknown 01/08/2025 9:33 PM EDT 01/08/2025 10:43 PM EDT [facility] - 01/08/2025 11:23 PM EDT This assay is an FDA-cleared, in vitro diagnostic nucleic acid amplification test for the detection of RSV from nasopharyngeal specimens, and has been validated for use at [facility]. Negative results do not preclude RSV infections, and should not be used as the sole basis for diagnosis, treatment, or other management decisions. If Influenza A/B and RSV PCR results are negative, testing for Parainfluenza virus, Adenovirus and Metapneumovirus is routinely performed for pediatric oncology and intensive care inpatients at [facility], and is available on other patients by placing an add-on request. [facility] DANYEL GOMEZ Final Result Performing Organization Address City/[facility]/ZIP Co de Phone Number [facility] [address] [place] [address] * (ABNORMAL) Sars-CoV-2 and Influenza A/B PCR (01/08/2025 9:33 PM EDT) [facility] Flu A Result Detected(A) Not Detected X_PERT XPRESS SARS-COV2 _CEPHEID_ EUA 01/08/2025 11:23 PM EDT [facility] Flu B Result Not Detected Not Detected X_PERT XPRESS SARS-COV2 _CEPHEID_ EUA 01/08/2025 11:23 PM EDT [facility] Coronavirus 2019, PCR Not Detected Not Detected X_PERT XPRESS SARS-COV2 _CEPHEID_ EUA 01/08/2025 11:23 PM EDT [facility] Swab Nasopharyngeal swab / Unknown Non-blood Collection / Unknown 01/08/2025 9:33 PM EDT 01/08/2025 10:43 PM EDT [facility] - 01/08/2025 11:23 PM EDT This assay is an FDA-cleared, in vitro diagnostic nucleic acid amplification test for the qualitative detection and differentiation of SARS CoV-2/ Influenza A/B from nasopharyngeal specimens collected from individuals with signs and symptoms of respiratory tract infections, and has been validated for use at [facility]. Negative results do not preclude COVID-19/ Influenza A/B infections and should not be used as the sole basis for diagnosis, treatment, or other management decisions. Testing for SARS CoV-2 is recommended only for patients who meet current clinical and/or epidemiological criteria defined by federal, state, or local public health directives. Triny Sol PA-C LAB [facility]LE[facility] DANYEL GOMEZ Final Result [facility] [address] [place] [address] * Staphylococcus aureus/MRSA colonization, Culture (01/08/2025 9:33 PM EDT) [facility] Staph/MRSA Screen Culture No Staphylococcus aureus isolated 01/10/2025 11:36 AM EDT [facility] Swab (Anterior Nares) Non-blood Collection / Unknown 01/08/2025 9:33 PM EDT 01/08/2025 10:43 PM EDT Triny Sol PA-C LAB MICROBIOLOGY - GENERAL ORD ERABLES Final Result [facility] [address] [place] [phone] * Blood Culture (01/08/2025 8:47 PM EDT) Blood Culture No growth at 4 days - FINAL REPORT AUTOMATED MICROBIAL DETECTION SYSTEM ([facility]) 01/13/2025 3:02 AM EDT [facility] Blood culture Venous blood specimen / Unknown Blood Culture / Unknown 01/08/2025 8:47 PM EDT 01/08/2025 8:51 PM EDT Triny JOSEPHC LAB MICROBIOLOGY - GENERAL ORD ERABLES Final Result Performing Organization Address [facility]/ZIP Co de Phone Number [facility] [address] [place] [phone] * Lactate (01/08/2025 8:47 PM EDT) Lactate 1.0 0.4 - 2.0 mmol/L LAB CHEMISTRY METHOD 01/08/2025 9:11 PM EDT [facility] Blood Venous blood specimen / Unknown Venipuncture / Unknown 01/08/2025 8:47 PM EDT 01/08/2025 8:51 PM EDT Narrative [facility] - 01/08/2025 9:11 PM EDT Venipuncture immediately after or during the administration of Metamizole may lead to falsely low results. Testing should be performed immediately prior to Metamizole dosing. Triny JOSEPHC LAB BLOOD ORDERABLES Final Res ult [facility] [address] [place] [address] * (ABNORMAL) Troponin, High Sensitivity, 1 Hour (01/08/2025 8:46 PM EDT) [facility] Troponin I, High Sensitivity 28(H) 0 - 13 ng/L LAB IMMUNOASSAY METHOD 01/08/2025 9:19 PM EDT [facility] Blood Venous blood specimen / Unknown Venipuncture / Unknown 01/08/2025 8:46 PM EDT 01/08/2025 8:51 PM EDT [facility] - 01/08/2025 9:19 PM EDT Less than 99th percentile of normal range cutoff- Female and children under 18 years old <14 ng/L; Male <21 ng/L: Negative Repeat testing should be performed if clinically indicated. Female and children under 18 years old 14-50 ng/L; Male 21-50 ng/L: Consistent with possible cardiac damage and possible increased clinical risk. Serial measurements may help to assess extent of myocardial damage. >50 ng/L: Consistent with cardiac damage, increased clinical risk and myocardial infarction. Serial measurements may help assess extent of myocardial damage. NOTE: Children less than 1 year old may have higher baseline troponin levels and results should be interpreted in conjunction with the overall clinical context. NOTE: Troponin I testing is performed using a different testing methodology at [facility] than at other [facility]. Direct result comparisons should only be made within the same method. Dani Dodge MERCHANDISE DELIVERER-COLOR BLENDER, DNP LAB BLOOD ORDERAB LES Final Result [facility] [address] [place] [address] * BB ORDER ONLY - Antibody Identification (01/08/2025 8:46 PM EDT) [facility] Antibody ID Anti-c and Inconclusive 01/11/2025 2:26 PM EDT [facility] CASE # 01/11/2025 2:26 PM EDT [facility] Blood Venous blood specimen / Unknown Venipuncture / Unknown 01/08/2025 8:46 PM EDT 01/08/2025 8:51 PM EDT Triny [facility] [employer] [facility] TEST ORDERABLES Final Result Performing Organization Address [facility] Co de Phone Number [facility] [address] [place] [address], * Type and screen (01/08/2025 8:46 PM EDT) ABO TYPE A 01/08/2025 9:38 PM EDT [facility] Rh TYPE POS 01/08/2025 9:38 PM EDT [facility] ANTIBODY SCREEN POS 9:38 PM EDT [facility] Blood Venous blood specimen / Unknown Venipuncture / Unknown 01/08/2025 8:46 PM EDT 01/08/2025 8:51 PM EDT Triny Sol [employer] BLOOD BANK TEST ORDERABLES Final Result Performing Organization Address [facility] de Phone Number [facility] [address] [place] [address], * XR chest 1 view (01/08/2025 8:06 PM EDT) Anatomical Region Laterality Modality Thoracic, Chest Computed Radiogr aphy 01/08/2025 8:19 PM EDT 01/08/2025 8:19 PM EDT Impressions 01/08/2025 8:17 PM EDT Right-sided airspace consolidation, as above. Clinical correlation and continued follow-up until clearing is recommended. MACRO: None. Signed by: Deion Bonilla 01/08/2025 8:17 PM Dictation workstation: [id number] Narrative 01/08/2025 8:17 PM EDT Interpreted By: Deion Bonilla, STUDY: XR CHEST 1 VIEW 01/08/2025 8:06 pm INDICATION: Signs/Symptoms:increased O2 COMPARISON: 09/01/2024 ACCESSION NUMBER(S): [id number] ORDERING CLINICIAN: TRINY SOL TECHNIQUE: A single AP portable radiograph of the chest was obtained. FINDINGS: Multiple cardiac monitoring leads are seen over the chest. A 2 lead pacer/AICD is seen over the right chest. Airspace consolidation is seen throughout the right mid to lower lung, concerning for pneumonia. No pneumothorax is identified. The cardiac silhouette is within normal limits for size. Procedure Note Deion Bonilla MD - 01/08/2025 Interpreted By: Deion Bonilla, STUDY: XR CHEST 1 VIEW 01/08/2025 8:06 pm INDICATION: Signs/Symptoms:increased O2 COMPARISON: 09/01/2024 ACCESSION NUMBER(S): [id number] ORDERING CLINICIAN: TRINY SOL TECHNIQUE: A single AP portable radiograph of the chest was obtained. FINDINGS: Multiple cardiac monitoring leads are seen over the chest. A 2 lead pacer/AICD is seen over the right chest. Airspace consolidation is seen throughout the right mid to lower lung, concerning for pneumonia. No pneumothorax is identified. The cardiac silhouette is within normal limits for size. IMPRESSION: Right-sided airspace consolidation, as above. Clinical correlation and continued follow-up until clearing is recommended. MACRO: None. Signed by: Deion Bonilla 01/08/2025 8:17 PM Dictation workstation: [id number] Triny Sol PA-C IMG XR PROCEDURES Final Result * (ABNORMAL) CBC and Auto Differential (01/08/2025 7:21 PM EDT) WBC 17.1(H) 4.4 - 11.3 x10*3/uL LAB HEMATOLOGY METHOD 01/08/2025 7:28 PM EDT [facility] nRBC 0.1(H) 0.0 - 0.0 /100 WBCs LAB HEMATOLOGY METHOD 01/08/2025 7:28 PM EDT [facility] RBC 4.09 4.00 - 5.20 x10*6/uL LAB HEMATOLOGY METHOD 01/08/2025 7:28 PM EDT [facility] Hemoglobin 10.4(L) 12.0 - 16.0 g/dL LAB HEMATOLOGY METHOD 01/08/2025 7:28 PM [facility] Hematocrit 30.7(L) 36.0 - 46.0 % LAB HEMATOLOGY METHOD 01/08/2025 7:28 PM [facility] MCV 75(L) 80 - 100 fL LAB HEMATOLOGY METHOD 01/08/2025 7:28 PM [facility] MCH 25.4(L) 26.0 - 34.0 pg LAB HEMATOLOGY METHOD 01/08/2025 7:28 PM [facility] MCHC 33.9 32.0 - 36.0 g/dL LAB HEMATOLOGY METHOD 01/08/2025 7:28 PM [facility] RDW 16.6(H) 11.5 - 14.5 % LAB HEMATOLOGY METHOD 01/08/2025 7:28 PM [facility] Platelets 218 150 - 450 x10*3/uL LAB HEMATOLOGY METHOD 01/08/2025 7:28 PM [facility] Neutrophils % 84.0 40.0 - 80.0 % LAB HEMATOLOGY METHOD 01/08/2025 7:28 PM [facility] Immature Granulocytes %, Automated 0.4 0.0 - 0.9 % LAB HEMATOLOGY METHOD 01/08/2025 7:28 PM [facility] Comment:Immature Granulocyte Count (IG) includes promyelocytes, myelocytes and metamyelocytes but does not include bands. Percent differential counts (%) should be interpreted in the context of the absolute cell counts (cells/UL). Lymphocytes % 10.6 13.0 - 44.0 % LAB HEMATOLOGY METHOD 01/08/2025 7:28 PM [facility] Monocytes % 4.8 2.0 - 10.0 % LAB HEMATOLOGY METHOD 01/08/2025 7:28 PM [facility] Eosinophils % 0.0 0.0 - 6.0 % LAB HEMATOLOGY METHOD 01/08/2025 7:28 PM [facility] Basophils % 0.2 0.0 - 2.0 % LAB HEMATOLOGY METHOD 01/08/2025 7:28 PM [facility] Neutrophils Absolute 14.38(H) 1.20 - 7.70 x10*3/uL LAB HEMATOLOGY METHOD 01/08/2025 7:28 PM EDT [facility] Comment:Percent differential counts (%) should be interpreted in the context of the absolute cell counts (cells/uL). Immature Granulocytes Absolute, Automated 0.07 0.00 - 0.70 x10*3/uL LAB HEMATOLOGY METHOD 01/08/2025 7:28 PM EDT [facility] Lymphocytes Absolute 1.82 1.20 - 4.80 x10*3/uL LAB HEMATOLOGY METHOD 01/08/2025 7:28 PM EDT [facility] Monocytes Absolute 0.83 0.10 - 1.00 x10*3/uL LAB HEMATOLOGY METHOD 01/08/2025 7:28 PM EDT [facility] Eosinophils Absolute 0.00 0.00 - 0.70 x10*3/uL LAB HEMATOLOGY METHOD 01/08/2025 7:28 PM EDT [facility] Basophils Absolute 0.03 0.00 - 0.10 x10*3/uL LAB HEMATOLOGY METHOD 01/08/2025 7:28 PM EDT [facility] Blood Venous blood specimen / Unknown Venipuncture / Unknown 01/08/2025 7:21 PM EDT 01/08/2025 7:26 PM EDT us Dani Dodge MERCHANDISE DELIVERER-COLOR BLENDER, DNP LAB BLOOD ORDERAB LES Final Result [facility] [address] [place] [address] * (ABNORMAL) Troponin I, High Sensitivity, Initial (01/08/2025 7:21 PM EDT) Troponin I, High Sensitivity 29(H) 0 - 13 ng/L LAB IMMUNOASSAY METHOD 01/08/2025 7:52 PM EDT [facility] Blood Venous blood specimen / Unknown Venipuncture / Unknown 01/08/2025 7:21 PM EDT 01/08/2025 7:26 PM EDT Narrative [facility] - 01/08/2025 7:52 PM EDT Less than 99th percentile of normal range cutoff- Female and children under 18 years old <14 ng/L; Male <21 ng/L: Negative Repeat testing should be performed if clinically indicated. Female and children under 18 years old 14-50 ng/L; Male 21-50 ng/L: Consistent with possible cardiac damage and possible increased clinical risk. Serial measurements may help to assess extent of myocardial damage. >50 ng/L: Consistent with cardiac damage, increased clinical risk and myocardial infarction. Serial measurements may help assess extent of myocardial damage. NOTE: Children less than 1 year old may have higher baseline troponin levels and results should be interpreted in conjunction with the overall clinical context. NOTE: Troponin I testing is performed using a different testing methodology at [facility] than at other [facility]. Direct result comparisons should only be made within the same method. us Dani Dodge MERCHANDISE DELIVERER-COLOR BLENDER, DNP LAB BLOOD ORDERAB LES Final Result Performing Organization Address [facility]/ZIP Co de Phone Number [facility] [address] [place] [address] * TSH with reflex to Free T4 if abnormal (01/08/2025 7:21 PM EDT) Thyroid Stimulating Hormone 2.12 0.44 - 3.98 mIU/L LAB IMMUNOASSAY METHOD 01/08/2025 8:19 PM EDT [facility] Blood Venous blood specimen / Unknown Venipuncture / Unknown 01/08/2025 7:21 PM EDT 01/08/2025 7:26 PM EDT [facility] - 01/08/2025 8:19 PM EDT TSH testing is performed using different testing methodology at [facility] than at other [facility]. Direct result comparisons should only be made within the same method. us Triny Sol PA-C LAB BLOOD ORDERABLES Final Res ult Performing Organization Address City/[facility]/ZIP Co de Phone Number [facility] [address] [place] [address] * Coagulation Screen (01/08/2025 7:21 PM EDT) [facility] Protime 10.9 9.8 - 12.4 seconds LAB COAGULATION METHOD 01/08/2025 7:39 PM EDT [facility] INR 1.0 0.9 - 1.1 LAB COAGULATION METHOD 01/08/2025 7:39 PM EDT [facility] aPTT 28 26 - 36 seconds LAB COAGULATION METHOD 01/08/2025 7:39 PM EDT [facility] Blood Venous blood specimen / Unknown Venipuncture / Unknown 01/08/2025 7:21 PM EDT 01/08/2025 7:26 PM EDT [facility] - 01/08/2025 7:39 PM EDT The APTT is no longer used for monitoring Unfractionated Heparin Therapy. For monitoring Heparin Therapy, use the Heparin Assay. us Dani Dodge MERCHANDISE DELIVERER-COLOR BLENDER, DNP LAB BLOOD ORDERAB LES Final Result [facility] [address] [place] [address] * (ABNORMAL) B-type natriuretic peptide (01/08/2025 7:21 PM EDT) [facility] BNP 106(H) 0 - 99 pg/mL LAB IMMUNOASSAY METHOD 01/08/2025 8:16 PM EDT [facility] Blood Venous blood specimen / Unknown Venipuncture / Unknown 01/08/2025 7:21 PM EDT 01/08/2025 7:26 PM EDT Narrative [facility] - 01/08/2025 8:16 PM EDT <100 pg/mL - Heart failure unlikely 100-299 pg/mL - Intermediate probability of acute heart failure exacerbation. Correlate with clinical context and patient history. >=300 pg/mL - Heart Failure likely. Correlate with clinical context and patient history. BNP testing is performed using different testing methodology at [facility] than at other [facility]. Direct result comparisons should only be made within the same method. us Triny Sol PA-C LAB BLOOD ORDERABLES Final Res ult [facility] [address] [place] [address] * Hemoglobin A1c (01/08/2025 7:21 PM EDT) Hemoglobin A1C 5.5 See comment % 025 11:45 PM EDT [facility] Estimated Average Glucose 111 Not Established mg/dL 01/08/2025 11:45 PM EDT [facility] Blood Venous blood specimen / Unknown Venipuncture / Unknown 01/08/2025 7:21 PM EDT 01/08/2025 7:26 PM EDT Narrative [facility] - 01/08/2025 11:45 PM EDT Diagnosis of Diabetes-Adults Non-Diabetic: < or = 5.6% Increased risk for developing diabetes: 5.7-6.4% Diagnostic of diabetes: > or = 6.5% Triny Sol PA-C LAB BLOOD ORDERABLES Final Res ult [facility] [address] [address] from Last 3 Months Insurance MEDICAID Member Subscriber Plan / Payer (Ef fective 2017-Present) Name:King Martinez Relation to Subscriber:Self Name:King Martinez Payer ID:Not on file Group ID:Not on file Type:Not on file Address: [address] DUAL ADVANTAGE MEDICAID ANTHEM DUAL ADVANTAGE Advance Directives For more information, please contact: [phone] (Available ) * Full Code (Latest Code Status on File) Date Activated Date Inactivated Comments 11/26/2023 6:41 AM Question Answer Comments Plan of Care: Code Status Discussion Not Compl eted Decision Maker: Provider Rationale: Patient condition does not warra nt discussion Care Teams Community Youth Secretary Relationship Specialty Start Date End Date Conchita Aden MD [address] [place] [address] [place] [address] PCP - General Family Medicine 11/11/24 June Preston MD [address] [facility] Medical Office Bldg, [address] [place] [address] Port Engineer Electrophysiology 09/13/24
--- OUTSIDE RECORDS SUMMARY | 2025-03-24 23:22 | XMS_ITS | Encounter Summary ---
Author Organization [facility] Address [address] [place] [address] Phone Care Team Providers Care Wire Insulator Name Role Phone June Preston MD Unavailable Conchita Aden MD Primary Care Provider [phone] Encounter Details Date Type Department Care Team (Late st Contact Info) Description 02/10/2025 Scanned Document [facility] [address] [place] [id number] Scanning, Generic Provider Social History Tobacco Use [...] from your doctor or pharmacy? Never 01/08/2025 [facility] Utilities Answer Date Recorded In the past 12 months has e [employer] gas, oil, or water [employer] threatened to shut off services in your [...] week 01/08/2025 How often do you attend yarsanism or baptist serv ices? Patient declined 01/08/2025 Do you belong to any clubs o r organizations such as yarsanism groups, unions, fraternal or athletic groups, or [...] Recorded Patient Health Questionnaire-2 Score 0 01/08/2025 [facility] - Occupational [...] place to sleep or slept in a assisted (including now)? No 02/16/2024 Housing Stability Vital [...] in the past 12 m [facility], were you homeless or living in a assisted (including now)? No 01/08/2025 Comments No Sex and Gender Information Value Date Recorded Sex Assigned at Not on file Legal Sex Female 10:34 AM EST Gender Identity Not on file Sexual Orientation Not on file COVID-19 Exposure Response Date Recorded In the last 10 days, have yo u been in contact with someone who was confirmed or suspected to have Coronavirus/COVID-19? No / Unsure 02/07/2025 11:11 AM EDT documented as of this encounter Plan of Treatment Upcoming Encounters Date Type Department Care Team (Latest Contact Info) Description 04/03/2025 1:00 PM EDT Hospital Encounter [facility] [address] [place] [address] 04/14/2025 10:30 AM EDT Hospital Encounter [facility] [address] [address] [place] [address] Kervin Fair MD [address] [place] [address] Ventricular tachycardia (Multi) 04/14/2025 12:00 PM EDT - 04/14/2025 4:00 PM EDT Surgery [facility] [address] [place] [address] Kervin Fair MD [address] [place] [address] [place] [[id number] (CPT )] 07/14/2025 1:00 PM EDT Office Visit [facility] [address] [facility] [address] [place] [address] Oscar Rodriguez MD [address] [facility] 2, [address] [place] [address] 09/26/2025 12:20 PM EST Appointment [facility] [address] [place] [address] 09/26/2025 1:00 PM EST Office Visit [facility] [address] [facility] [address] [place] [address] June Preston MD [address] [facility] Office [facility], [address] [place] [address] documented as of this encounter Procedures Procedure Name Priority Date/Time Associated Diagnosis Comments NUCLEAR STRESS TEST - ONBASE SCAN 02/10/2025 OUTSIDE IMAGING SCAN 02/10/2025 OUTSIDE LAB SCAN 02/10/2025 documented in this encounter Results * Nuclear Stress Test - Onbase Scan (02/10/2025) Narrative 02/10/2025 Ordered by an unspecified provider. us Generic Provider Scanning CV STRESS PROCEDURES F inal Result * OUTSIDE LAB SCAN (02/10/2025) Narrative 02/10/2025 Ordered by an unspecified provider. us Generic Provider Scanning OUTSIDE SCAN Final Result * OUTSIDE IMAGING SCAN (02/10/2025) Anatomical Region Laterality Modality Other Narrative 02/10/2025 Ordered by an unspecified provider. us Generic Provider Scanning OUTSIDE SCAN Final Result documented in this encounter Visit Diagnoses Not on filedocumented in this encounter Additional Health Concerns Assessment Noted Time PHQ-9 Depression Total Score: 9 01/23/20 22 11:33 AM EDT A fall risk assessment has been complete d for the patient 03/01/2024 12:30 PM EDT documented as of this encounter Care Teams Wire Insulator Relationship Specialty Start Date End Date Conchita Aden MD [address] [place] [address] [place] [address] PCP - General Family Medicine 11/11/24 June Preston MD [address] [facility] Medical Office Bldg, [address] [place] [address] Bookkeeping Service Sales Agent Electrophysiology 09/13/24 documented as of this encounter
--- OUTSIDE RECORDS SUMMARY | 2025-03-24 23:22 | XMS_ITS | Encounter Summary ---
Author Organization [facility] Address [address] [place] [address] Phone Care Team Providers Care Refrigeration Engineer Name Role Phone Tremaine West DO Primary Care Provider Ania Brothers DEICER INSPECTOR PNEUMATIC-TRANSITION PROGRAM MANAGER Unavailable Unavailable June Preston MD Unavailable Sol Keita POWER BALLAST MACHINE OPERATOR Unavailable [phone] June Preston MD Unavailable Oscar Rodriguez MD Unavailable Generic Provider, No Assigned Pcp Primary Car e Provider Unavailable Diane Min RN Unavailable Unavailable June Preston MD Unavailable Conchita Aden MD Primary Care Provider [phone] Diane Min RN Unavailable Unavailable Encounter Details Date Type Department Care Team (Late st Contact Info) Description 07/27/[address] [facility] [address] [place] [address] Conversion, Onbase Social History Tobacco Use Types Packs/Day Years Used Date Smoking Tobacco: Never Assessed PHQ-2 Answer Date Recorded Patient Health Questionnaire-2 Score 2 01/22/2022 Comments Unknown Sex and Gender Information Value Date Recorded Sex Assigned at Not on file Legal Sex Female 10:34 AM EST Gender Identity Not on file Sexual Orientation Not on file documented as of this encounter Plan of Treatment Upcoming Encounters Date Type Department Care Team (Latest Contact Info) Description 04/03/2025 1:00 PM EDT Hospital Encounter [facility] [address] [place] [address] 04/14/2025 10:30 AM EDT [facility] [address] [place] [address] [place] [address] Kervin Fair MD [address] [place] [address] Ventricular tachycardia (Multi) 04/14/2025 12:00 PM EDT - 04/14/2025 4:00 PM EDT Surgery [facility] [address] [place] [place] [address] Kervin Fair MD [address] [place] [address] [place] [[id number] (CPT )] 07/14/2025 1:00 PM EDT Office Visit [facility] [address] [facility] [address] [place] [address] Oscar Rodriguez MD [address] [facility] 2, [address] [place] [address] 09/26/2025 12:20 PM EST Appointment [facility] [address] [place] [address] 09/26/2025 1:00 PM EST Office Visit [facility] [address] [facility] [address] [place] [address] June Preston MD [address] [facility] Office [facility], [address] [place] [address] documented as of this encounter Procedures Procedure Name Priority Date/Time Associated Diagnosis Comments OUTSIDE GENERIC TESTING 07/27/2023 OUTSIDE GENERIC TESTING 07/27/2023 documented in this encounter Results * OUTSIDE GENERIC TESTING (07/27/2023) Anatomical Region Laterality Modality Other Narrative 07/27/2023 Ordered by an unspecified provider. us Onbase Conversion OUTSIDE SCAN Final Result * OUTSIDE GENERIC TESTING (07/27/2023) Anatomical Region Laterality Modality Other Narrative 07/27/2023 Ordered by an unspecified provider. us Onbase Conversion OUTSIDE SCAN Final Result documented in this [...] Score: 9 01/23/20 22 11:33 AM EDT documented as of this encounter Care Teams Refrigeration Engineer Relationship Specialty Start Date End Date Tremaine West DO [address] Jeffy West DO [facility] [address] [place] [address] PCP - General 01/22/22 11/05/23 Generic Provider, No Assigned Pcp, [place] [address] PCP - General Slot Service Specialist 08/08/24 11/10/24 Conchita Aden MD [address] [place] [address] PCP - General Family Medicine 11/11/24 Ania Brothers, DEICER INSPECTOR PNEUMATIC-TRANSITION PROGRAM MANAGER [address] Bard[address] Hayneser, DO [address] [place] [address] Nurse Practitioner Cardiology 09/30/23 02/16/24 June Preston MD [address] [facility] Tremaine West, DO [address] [place] [address] Metaphysician Cardiology 09/30/23 02/16/24 Sol Keita, [facility] Electronic Equipment Maint TechCost Estimating Manager 02/19/24 05/17/24 June Preston MD [address] [facility], [address] [place] [address] Consulting Physician Cardiology 02/19/24 02/29/24 Oscar Rodriguez MD [address] [facility] 2, [address] [place] [address] Consulting Physician Cardiology 02/19/24 02/29/24 Diane Min, gill box tenderCost Estimating Manager 09/05/24 12/06/24 June Preston MD [address] [facility], [address] [place] [address] Metaphysician Electrophysiology 09/13/24 Diane Min, gill box tenderCost Estimating Manager 01/16/25 01/31/25 documented as of this encounter
--- OUTSIDE RECORDS SUMMARY | 2025-03-24 23:22 | XMS_ITS | Clinical Summary ---
Author Organization [facility] Address [address] [place] [id number] Care Team Providers Care Ip Counsel Name Role Phone Unavailable Primary Care Provider Unavailabl e Allergies No known active allergies Medications spironolactone (ALDACTONE) 25 mg tablet Take 25 mg by mouth once daily. Active citalopram (CELEXA) 40 mg tablet Take 40 mg by mouth once daily. Active clopidogrel (PLAVIX) 75 mg tablet Take 75 mg by mouth once daily. Active POTASSIUM CHLORIDE (KLOR-CON M20 ORAL) Take 20 mEq by mouth once daily. Active metoprolol succinate ER (TOPROL XL) 25 mg 24 hr tablet Take 12.5 mg by mouth twice daily. Active metFORMIN (GLUCOPHAGE) 500 mg tablet Take 500 mg by mouth twice daily with meals. Active lovastatin (MEVACOR) 20 mg tablet Take 20 mg by mouth daily at bedtime. Active QUEtiapine (SEROQUEL) 200 mg tablet Take 200 mg by mouth daily at bedtime. Active LORazepam (ATIVAN) 0.5 mg tab Take 0.5 mg by mouth twice daily as needed. Active solifenacin (VESICARE) 10 mg tablet Take 10 mg by mouth once daily. Active nitroglycerin sublingual (NITROQUICK) 0.4 mg SL tablet Dissolve 0.4 mg under the tongue every 5 minutes as needed. Active melatonin 3 mg Take 3 mg by mouth daily at bedtime. Active skin protective paste pste Apply 1 application to affected area twice daily. 250 g 0 5 Active aspirin 81 mg chewable tablet Take 1 tablet by mouth once daily. 30 tablet 6 5 Active oxyCODONE immediate release (PERCOLONE) 5 mg immediate release tablet Take 1-2 tablets by mouth every 3 hours as needed. 80 tablet 0 5 Active hydrocortisone (PROCTOCORT) 1 % crea 1 application by RECTAL route as needed. Active phenylephrine-c ocoa butter (PREPARATION H,PE,CB,) 0.25-88.44 % supp by RECTAL route as needed. Active Active Problems Problem Noted Date Diagnosed Date Postoperative ileus 05/30/2015 Overview (05/30/2015): NG tube for bowel decompression, clamp trials completed with return of bowel function Elevated troponin 05/24/2015 Overview (05/30/2015): Cardiology consulted Postoperative pain 05/23/2015 Overview (05/23/2015): LINEN TECH pump and will transition to oral medication with the return of bowel function Mechanical venous thromboemb olism (VTE) prophylaxis in place 05/23/2015 Overview (05/23/2015): IPC stockings Other and unspecified hyperlipidemia 05/23/2015 Overview (05/23/2015): Resume home medications CAD (coronary artery disease) 05/23/2015 Overview (05/30/2015): S/p stent placement. Will resume home plavix dosing when surgically stable 05/29/2015: cardiac cath with stable CAD, no further stenting needs, continue home meds Type II or unspecified type diabetes mellitus without mention of complication, not stated as uncontrolled 05/23/2015 Overview (05/23/2015): Use of sliding scale while inpatient, glucose monitoring ACHS, to resume home metformin upon DC Unspecified vascular insufficiency of intestine 04/09/2015 Resolved Problems Problem Noted Date Diagnosed Date Resolved Date Essential hypertension, malignant 05/23/2015 08/06/2016 Overview (05/23/2015): Resume home medication, monitor with routine vitals Immunizations Immunization Administration Dates Next Due pneumococcal polysaccharide (PPV23) vaccine, 23 valent (PNEUMOVAX 23) 11/09/2006 Family History Medical History Relation Comments no colon disease [Other] Other Relation Status Comments Other Social History Tobacco Use Types Packs/Day Years [...] file Not on file Not on file Last Filed Vital Signs Vital Sign Reading Time Taken Comments Blood Pressure 109/74 05/31/2015 3:00 PM EDT Pulse 106 05/31/2015 3:00 PM EDT Temperature 37.4 C (99.3 F) 05/31/2015 3:00 PM EDT Respiratory Rate 20 05/31/2015 3:00 PM EDT Oxygen Saturation 97% 05/31/2015 3:00 PM EDT Inhaled Oxygen Concentration - - Weight 76.7 kg (169 lb) 08/15/2015 2:57 PM EDT Height 157.5 cm (5' 2 ) 08/15/2015 2:57 PM EDT Body Mass Index 30.91 08/15/2015 2:57 PM EDT Plan of Treatment Health Maintenance Due Date Last Done Comments Anxiety Screening 1978 Depression Screening 1978 HIV Screening 1978 Hepatitis C Screening 1978 DTaP,Tdap,Td Vaccine (1 - Tdap) 1979 Cervical Cancer Screening [address] Colonography 2005 Cologuard (FIT-DNA) 2005 Colonoscopy 2005 Colorectal Cancer Screening 2005 Fecal Occult Blood 2005 Sigmoidoscopy 2005 Pneumococcal Vaccine: 50+ (2 of 2 - PCV) 2010 11/09/2006 Shingrix Vaccine (1 of 2) 2010 Diabetes Screening 05/31/2018 05/31/2015, 0 05/30/2015, 05/28/2015, Additional history exists Lipid Screening 05/16/2020 05/16/2015 Covid-19 Vaccine ( - 2023-2 5 season) 2024 Influenza Vaccine (Season Ended) 2025 RSV Vaccine (1 - 1-dose 75+ series) 2035 Procedures Procedure Name Priority Date/Time Associated Diagnosis Comments BASIC METABOLIC PANEL STAT 05/31/2015 12:41 AM EDT LIPID PANEL, FASTING Routine 05/16/2015 10:42 AM EDT 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) from Last 3 Months or Most Recently Relevant to Health Maintenance Results * (ABNORMAL) BASIC METABOLIC PNL (05/31/2015 12:41 AM EDT) Glucose 101(H) 65 - 100 mg/dL 05/31/2015 1:52 AM EDT [facility] BUN 3(L) 8 - 25 mg/dL 05/31/2015 1:52 AM T [facility] Creatinine 0.75 0.70 - 1.40 mg/dL 05/31/2015 1:52 AM T [facility] Sodium 135 132 - 148 mmol/L 05/31/2015 1:52 AM T [facility] Potassium 4.3 3.5 - 5.0 mmol/L 05/31/2015 1:52 AM T [facility] Chloride 100 98 - 110 mmol/L 05/31/2015 1:52 AM T [facility] CO2 24 23 - 32 mmol/L 05/31/2015 1:52 AM [facility] Anion Gap 11 0 - 15 mmol/L 05/31/2015 1:52 AM T [facility] Calcium 8.6 8.5 - 10.5 mg/dL 05/31/2015 1:52 AM T [facility] eGFR- >60 05/31/2015 1:52 AM T [facility] eGFR-All Other Races >60 . 05/31/2015 1:52 AM [facility] Comment: eGFR (Estimated GFR) Units of measure: mL/min/1.73 meters squared eGFR is derived from the reexpressed MDRD Study equation using the following parameters: serum creatinine, age, gender and race. The creatinine assay has been calibrated to be traceable to IDMS. An eGFR <60 mL/min/1.73m2 for >3 months is consistent with chronic kidney disease. Refer to KDOQI guidelines for clinical interpretation. In patients with unstable renal function, e.g. those with acute kidney injury, the eGFR may not accurately reflect actual GFR. Blood specimen (specimen) BLOOD SPECIMEN / Unknown 05/31/2015 12:41 AM EDT 05/31/2015 12:42 AM EDT Marcial Escobar (Hist) Lin LABORATORY Final Result [facility] [address] [facility] [place] [address] * (ABNORMAL) LIPID PANEL BASIC (05/16/2015 10:42 AM EDT) Triglyceride 118 30 - 149 mg/dL 05/16/2015 6:55 PM EDT [facility] Cholesterol, Total 142 100 - 199 mg/dL 05/16/2015 6:55 PM EDT [facility] HDL Cholesterol 65 >55 mg/dL 5 6:55 PM EDT [facility] VLDL Cholesterol 24 6 - 40 mg/dL 05/16/2015 6:55 PM EDT [facility] LDL Cholesterol, Calculated 53(L) 60 - 129 mg/dL 05/16/2015 6:55 PM EDT [facility] Fasting Time Unknown hrs 05/16/2015 2:56 PM EDT [facility] TC:HDL Ratio 2.18 1.00 - 5.00 05/16/2015 6:55 PM EDT [facility] LDL:HDL Ratio 0.82 0.50 - 3.55 05/16/2015 6:55 PM EDT [facility] Non HDL Cholesterol 77(L) 90 - 159 mg/dL 05/16/2015 6:55 PM EDT [facility] Blood specimen (specimen) BLOOD SPECIMEN / Unknown 05/16/2015 10:42 AM EDT 05/16/2015 10:46 AM EDT us Warner Conde MD LABORATORY Final Result [facility] [address] [place] [address] from Last 3 Months or Most Recently Relevant to Health Maintenance Insurance MEDICARE MEDICAID [place]
--- OUTSIDE RECORDS SUMMARY | 2025-03-24 23:22 | XMS_ITS | Encounter Summary ---
Author Organization [facility] Address [address] [place] [address] Phone Care Team Providers Care Network Operations Specialist Name Role Phone Generic Provider, No Assigned Pcp Primary Car e Provider Unavailable Diane Min RN Unavailable Unavailable June Preston MD Unavailable Conchita Aden MD Primary Care Provider [phone] Diane Min RN Unavailable Unavailable Encounter Details Date Type Department Care Team (Late st Contact Info) Description 11/05/2024 Scanned Document [facility] [address] [place] [address] Scanning, Generic Provider Social History [...] place to sleep or slept in a longterm (including now)? No 02/16/2024 Housing Stability Vital Sign Answer Mookie e Recorded In the last 12 months, was t here a time when you were not able to pay the mortgage or rent on time? No 09/01/2024 In the past 12 months, how m any times have you moved where you were living? 0 09/01/2024 At any time in the past [address] [facility], were you homeless or living in a longterm (including now)? No 09/01/2024 Comments No Sex and Gender Information Value Date Recorded Sex Assigned at Not on file Legal Sex Female 10:34 AM EST Gender Identity Not on file Sexual Orientation Not on file documented as of this encounter Plan of Treatment Upcoming Encounters Date Type Department Care Team (Latest Contact Info) Description 04/03/2025 1:00 PM EDT Hospital Encounter [facility] [address] [place] [address] 04/14/2025 10:30 AM EDT Hospital Encounter [facility] [place] [address] [place] [address] Kervin Fair MD [facility] [place] [address] Ventricular tachycardia (Multi) 04/14/2025 12:00 PM EDT - 04/14/2025 4:00 PM EDT Surgery [facility] [place] [address] [place] [address] Kervin Fair MD [address] [place] [address] [place] [[address] (CPT )] 07/14/2025 1:00 PM EDT Office Visit [facility] [address] [facility] [address] [place] [address] Oscar Rodriguez MD [facility] [facility], [address] [place] [address] 09/26/2025 12:20 PM EST Appointment [facility] [address] [place] [address] 09/26/2025 1:00 PM EST Office Visit [facility] [address] [facility] [address] [place] [address] June Preston MD [address] [facility] Office Bldg, [address] [place] [address] documented as of this encounter Visit Diagnoses [...] documented as of this encounter Care Teams Network Operations Specialist Relationship Specialty Start Date End Date Generic Provider, No Assigned [place], [place] [address] PCP - General Dairy Farmworker 08/08/24 11/10/24 Conchita Aden MD [address] [place] [address] [place] [address] PCP - General Family Medicine 11/11/24 Diane Min RN Care Pitch Gatherer 09/05/24 12/06/24 June Preston MD [address] [facility] B[address], [address] [place] [address] Slot Operations Director Electrophysiology 09/13/24 Diane Min, deburr operatorPitch Gatherer 01/16/25 01/31/25 documented as of this encounter
--- OUTSIDE RECORDS SUMMARY | 2025-03-24 23:22 | XMS_ITS | Encounter Summary ---
Author Organization [facility] Address [address] [place] [address] Phone Care Team Providers Care Petroleum Laboratory Technician Name Role Phone Tremaine West DO Primary Care Provider Ania Brothers WOOD HANDLER-MANAGER BUSINESS PROCESS Unavailable Unavailable June Preston MD Unavailable Sol Keita MOBILE UI/UX DESIGNER Unavailable [phone] June Preston MD Unavailable Oscar Rodriguez MD Unavailable [phone] Generic Provider, No Assigned Pcp Primary Car e Provider Unavailable Diane Min RN Unavailable Unavailable June Preston MD Unavailable Conchita Aden MD Primary Care Provider [phone] Diane Min RN Unavailable Unavailable Encounter Details Date Type Department Care Team (Late st Contact Info) Description 07/23/2023 Scanned Document [facility] [address] [place] [address] Conversion, Onbase Social History Tobacco Use Types [...] Description 04/03/2025 1:00 PM EDT Hospital Encounter [facility] [address] [place] [address] 04/14/2025 10:30 AM EDT Hospital Encounter [facility] [address] [facility] [address] [place] [address] Kervin Fair MD [address] [place] [address] Ventricular tachycardia (Multi) 04/14/2025 12:00 PM EDT - 04/14/2025 4:00 PM EDT Surgery [facility] [address] [facility] [address] [place] [address] Kervin Fair MD [address] [place] [address] [place] [[address] (CPT )] 07/14/2025 1:00 PM EDT Office Visit [facility] 703 [facility] [address] [place] [address] Oscar Rodriguez MD 703 [facility] 2, [address] [place] [address] 09/26/2025 12:20 PM EST Appointment [facility] [address] [place] [address] 09/26/2025 1:00 PM EST Office Visit [facility] [address] [facility] [address] [place] [address] June Preston MD [address] [facility] Office [facility], [address] [place] [address] documented as of this encounter Procedures Procedure Name Priority Date/Time Associated Diagnosis Comments ADULT CATH 07/23/2023 documented in this encounter Results * ADULT CATH (07/23/2023) Narrative 07/23/2023 Ordered by an unspecified provider. us Onbase Conversion CV CARDIAC CATH PROCEDURES Fin al Result documented in this encounter Visit Diagnoses [...] documented as of this encounter Care Teams Petroleum Laboratory Technician Relationship Specialty Start Date End Date Tremaine West DO [address] West DO [address] [address] PCP - General 01/22/22 11/05/23 Generic Provider, No Assigned Pcp, [place] [address] PCP - General Coat Operator 08/08/24 11/10/24 Conchita Aden MD [address] [place] [address] [place] [address] PCP - General Family Medicine 11/11/24 Ania Brothers, WOOD HANDLER-MANAGER BUSINESS PROCESS [address] West DO [address] [place] [address] Nurse Practitioner Cardiology 09/30/23 02/16/24 June Preston MD [address] West DO [address] [address] Steel Floor Pan Placing Supervisor Cardiology 09/30/23 02/16/24 Sol Keita, MOBILE UI/UX DESIGNER Operations ClerkLaundry Assistant 02/19/24 05/17/24 June Preston MD [address] [facility], [address] [place] [address] Consulting Physician Cardiology 02/19/24 02/29/24 Oscar Rodriguez MD 703 [facility] 2, [address] [place], [place] [id number] Consulting Physician Cardiology 02/19/24 02/29/24 Diane Min, blankmakerLaundry Assistant 09/05/24 12/06/24 June Preston MD [address] [facility], [address] [place] [address] Steel Floor Pan Placing Supervisor Electrophysiology 09/13/24 Diane Min, blankmakerLaundry Assistant 01/16/25 01/31/25 documented as of this encounter
--- OUTSIDE RECORDS SUMMARY | 2025-03-24 23:23 | XMS_ITS | Encounter Summary ---
Author Organization [facility] Address [address] [place] [address] Care Team Providers Care Derivatives Trader Name Role Phone Conchita Aden MD Primary Care Provider [phone] Encounter Details Date Type Department Care Team (Late st Contact Info) Description 06/29/2023 External Result Encounter [facility] External Department Unsolicited Steve Combs, DO [address] [facility] [address] [place] [address] Social History Tobacco Use Types Packs/Day Years Used Date Smoking Tobacco: Never Assessed Comments Unknown Sex and Gender Information Value Date Recorded Sex Assigned at Not on file Legal Sex Female 6:52 PM EDT Gender Identity Not on file Sexual Orientation Not on file documented as of this encounter Plan of Treatment Not on file documented as of this encounter Procedures Procedure Name Priority Date/Time Associated Diagnosis Comments MR LUMBAR SPINE WO CONTRAST 06/29/2023 3:00 PM EDT documented in this encounter Results * MR lumbar spine wo contrast (06/29/2023 3:00 PM EDT) Anatomical Region Laterality Modality Spine, L-spine Magnetic Resonan ce 06/29/2023 3:00 PM EDT Impressions 06/29/2023 3:36 PM EDT At L4-L5: There is a focal left foraminal disc extrusion contributing to moderate to severe left neural foraminal narrowing with mild mass effect on the exiting left L4 nerve roots. This are also present. No significant spinal canal stenosis. This is new when compared prior exam. There is 6 mm of retrolisthesis of L2 upon L3. There is moderate to severe disc height loss at L2-L3 with Modic type I endplate edema. This is worsened compared to the prior exam. Lesser degrees of degenerative changes are noted, as above. There is no abnormal postcontrast enhancement. Impression dictated by: Gerber Moreno M.D.06/29/2023 3:14 PM Dictation Location: [place] [address] Transcribed By: [facility] 06/29/23 1514 Dictated By: Gerber Moreno II, MD 06/29/23 1500 Signed By: <Electronically signed by Gerber Moreno II, MD in OV> 06/29/23 1514 Narrative 06/29/2023 3:36 PM EDT [facility] Main [place] [address] [place] [address] MRI Report Signed Patient: Latanya Martinez MR#: [id number] 950 : 1960 Acct:[id number] Age/Sex: 62 / F ADM Date: 06/29/23 Loc: Room: Type: [facility] Attending Dr: Steve Combs DO Copies to: DO Darcie Draper MD, RES Ordering Provider: Steve Combs DO; Darcie Garcia MD, RES Date of Service: 06/29/23 MR/MR lumbar spine wo/w con: Other intervertebral disc degeneration, lumbar region;Spondy ([id number]) XR/XR pre/post mri xray: M51.36,M43.16 MR lumbar spine wo/w con, XR pre/post mri xray 06/29/2023 1:39 PM SIGNS AND SYMPTOMS: Nonradiating low back pain PROTOCOL: Multiplanar multisequence MR images of the lumbar spine were obtained with and without IV contrast. Frontal and lateral radiograph of the lumbar spine. CONTRAST: 14 mL of intravenous ProHance COMPARISON: 10/11/2018 FINDINGS: Radiograph the lumbar spine: There is 6 mm anterolisthesis of L2 upon L3 with moderate to severe disc height loss and anterior osteophyte formation. The vertebral body heights are preserved. Vascular calcifications are noted in the abdominal aorta and pelvis. Contrast is noted in the renal collecting systems bilaterally. MRI of lumbar spine: Alignment is as noted above. There is preservation of vertebral body heights. There is moderate to severe disc height loss at L2-L3 with Modic type I endplate edema. There is mild disc desiccation and disc height loss at L3-L4 and L4-5. The conus terminates at the L1-L2 intervertebral disc level. No epidural or paraspinous fluid collection is appreciated. There is no abnormal postcontrast enhancement. At T12-L1: There is a normal disc, central canal, and neural foramen. At L1-L2: There is a normal disc, central canal, and neural foramen. At L2-L3: There is a broad-based disc bulge with facet V small bilateral facet effusions. There is mild spinal canal stenosis with mild bilateral neural foraminal narrowing. At L3-L4: There is a broad-based disc bulge with facet hypertrophy. There is mild spinal canal narrowing and mild bilateral neural foraminal narrowing. At L4-L5: There is a focal left foraminal disc extrusion contributing to moderate to severe left neural foraminal narrowing with mild mass effect on the exiting left L4 nerve roots. This are also present. No significant spinal canal stenosis. At L5-S1: There is a normal disc, central canal, and neural foramen. MR/MR lumbar spine wo/w con Procedure Note Radiology, Radiologist, MD - 06/29/2023 [facility] Main [place] [address] [place] [address] MRI Report Signed Patient: Latanya Martinez AMR#: [id number] 950 : 1960cct:[id number] Age/Sex: 62 / FADM Date: 06/29/23 Loc: Room:Type: [facility] Attending Dr: Steve Combs DO Copies to: DO Darcie Draper MD, RES Ordering Provider: Steve Combs DO; Darcie Garcia MD, RES Date of Service: 06/29/23 MR/MR lumbar spine wo/w con: Otherintervertebral disc degeneration, lumbar region;Spondy ([id number]) XR/XR pre/post mri xray: M51.36,M43.16 MR lumbar spine wo/w con, XR pre/post mri xray 06/29/2023 1:39 PM SIGNS AND SYMPTOMS: Nonradiating low back pain PROTOCOL: Multiplanar multisequence MR images of the lumbar spine wereobtained with and without IV contrast. Frontal and lateral radiograph of the lumbar spine. CONTRAST: 14 mL of intravenous ProHance COMPARISON: 10/11/2018 FINDINGS: Radiograph the lumbar spine: There is 6 mm anterolisthesis of L2 upon L3 with moderate to severe discheight loss and anterior osteophyte formation. The vertebral body heights are preserved. Vascularcalcifications are noted in the abdominal aorta and pelvis. Contrast is noted in the renal collectingsystems bilaterally. MRI of lumbar spine: Alignment is as noted above. There is preservation of vertebral bodyheights. There is moderate to severe disc height loss at L2-L3 with Modic type I endplate edema. Thereis mild disc desiccation and disc height loss at L3-L4 and L4-5. The conus terminates at the L1-D2xixpiicjfnhdpd disc level. No epidural or paraspinous fluid collection is appreciated. There is noabnormal postcontrast enhancement. At T12-L1: There is a normal disc, central canal, and neural foramen. At L1-L2: There is a normal disc, central canal, and neural foramen. At L2-L3: There is a broad-based disc bulge with facet V small bilateralfacet effusions. There is mild spinal canal stenosis with mild bilateral neural foraminal narrowing. At L3-L4: There is a broad-based disc bulge with facet hypertrophy. Thereis mild spinal canal narrowing and mild bilateral neural foraminal narrowing. At L4-L5: There is a focal left foraminal disc extrusion contributing tomoderate to severe left neural foraminal narrowing with mild mass effect on the exiting left X2cmnra roots. This are also present. No significant spinal canal stenosis. At L5-S1: There is a normal disc, central canal, and neural foramen. MR/MR lumbar spine wo/w con IMPRESSION: At L4-L5: There is a focal left foraminal disc extrusion contributing tomoderate to severe left neural foraminal narrowing with mild mass effect on the exiting left B1ezbtk roots. This are also present. No significant spinal canal stenosis. This is new when comparedprior exam. There is 6 mm of retrolisthesis of L2 upon L3. There is moderate to severe disc height loss at L2-L3 with Modic type Iendplate edema. This is worsened compared to the prior exam. Lesser degrees of degenerative changes are noted, as above. There is no abnormal postcontrast enhancement. Impression dictated by: Gerber Moreno M.D.06/29/2023 3:14 PM Dictation Location: [place] [address] Transcribed By: [facility] 06/29/23 1514 Dictated By: Gerber Moreno II, MD 06/29/23 1500 Signed By: <Electronically signed by Gerber Moreno II, MD inOV> 06/29/23 1514 Steve Combs DO IMG MRI PROCEDURES Final Result documented in this encounter Visit Diagnoses Not on filedocumented in this encounter Care Teams Derivatives Trader Relationship Specialty Start Date End Date Conchita Aden MD PCP - General Family Medicine 11/07/24 documented as of this encounter
--- OUTSIDE RECORDS SUMMARY | 2025-03-24 23:23 | XMS_ITS | Encounter Summary ---
Author Organization [facility] Address [address] [place] [address] Phone Care Team Providers Care Linen Controller Name Role Phone Bossman Sol Oscar HOPPER Unavailable June Preston MD Unavailable Oscar Rodriguez MD Unavailable [phone] Generic Provider, No Assigned Pcp Primary Car e Provider Unavailable Diane Min RN Unavailable Unavailable June Preston MD Unavailable Conchita Aden MD Primary Care Provider [phone] Diane Min RN Unavailable Unavailable Encounter Details Date Type Department Care Team (Late st Contact Info) Description 02/19/2024 Scanned Document [place] [address] [place] [place] [phone] Scanning, Generic Provider Social History Tobacco Use Types Packs/Day Years Used Date Smoking Tobacco: Every Day Cigarettes Smokeless Tobacco: Never Alcohol Use Standard Drinks/Week Comments Not Currently 0 (1 standard drink = 0.6 oz pur e alcohol) AUDIT-C Answer Date Recorded Q1: How often do you have a drink containing alc ohol? Monthly or less 02/15/2024 Q2: How many drinks containi ng alcohol do you have on a typical day when you are drinking? 1 or 2 02/15/2024 Q3: How often do you have si x or more drinks on one occasion? Less than monthly 02/15/2024 Overall Financial Resource Strain (CARDIA) Answe r Date Recorded How hard is it for you to pa y for the very basics like food, housing, medical care, and heating? Not hard at all 02/16/2024 PHQ-2 Answer Date Recorded Patient Health Questionnaire-2 Score 0 02/15/2024 PRAPARE - Transportation Answer Date Re corded In the past 12 months, has l ack of transportation kept you from medical appointments or from getting medications? No 01/31 In the past 12 months, has l ack of transportation kept you from meetings, work, or from getting things needed for daily living? No 02/16/2024 Housing Stability Vital Sign Answer [...] place to sleep or slept in a [place] health care facility (including now)? No 02/16/2024 Comments Unknown Sex and Gender Information Value Date Recorded Sex Assigned at Not on file Legal Sex Female 10:34 AM EST Gender Identity Not on file Sexual Orientation Not on file COVID-19 Exposure Response Date Recorded In the last 10 days, have yo u been in contact with someone who was confirmed or suspected to have Coronavirus/COVID-19? No / Unsure 02/15/2024 11:13 AM EDT documented as of this encounter Plan of Treatment Upcoming Encounters Date Type Department Care Team (Latest Contact Info) Description 04/03/2025 1:00 PM EDT Hospital Encounter [facility] [address] [place] [address] 04/14/2025 10:30 AM EDT Hospital Encounter [facility] [place] [address] [place] [address] Kervin Fair MD [facility] [place] [address] Ventricular tachycardia (Multi) 04/14/2025 12:00 PM EDT - 04/14/2025 4:00 PM EDT Surgery [facility] [address] [place] [address] [place] [address] Kervin Fair MD [address] [place] [address] [place] [[id number] (CPT )] 07/14/2025 1:00 PM EDT Office Visit [facility] [address] [facility] [address] [place] [address] Oscar Rodriguez MD 7[address] [facility] 2, [address] [place] [address] 09/26/2025 12:20 PM EST Appointment [facility] [address] [place] [address] 09/26/2025 1:00 PM EST Office Visit [facility] [address] [facility] [address] [place] [address] June Preston MD [address] [facility] Office [address], [address] [place] [address] documented as of this encounter Visit Diagnoses [...] has been complete d for the patient 11/30/2023 9:59 AM EST documented as of this encounter Care Teams Linen Controller Relationship Specialty Start Date End Date Generic Provider, No Assigned Pcp, [place] [address] PCP - General Liberal Arts Dean 08/08/24 11/10/24 Conchita Aden MD [address] [place] [address] [place] [address] PCP - General Family Medicine 11/11/24 Sol Keita, HUMAN PERFORMANCE CONSULTANT Design InternTechnology Applications Teacher 02/19/24 05/17/24 June Preston MD [address] [facility], [address] [place] [address] Consulting Physician Cardiology 02/19/24 02/29/24 Oscar Rodriguez MD [address] [place] [address] 2, [address] [place] [address] Consulting Physician Cardiology 02/19/24 02/29/24 Diane Min RN Care Technology Applications Teacher 09/05/24 12/06/24 June Preston MD [address] [facility], [address] [place] [address] Radius Grinder Electrophysiology 09/13/24 Diane Min, managing principalTechnology Applications Teacher 01/16/25 01/31/25 documented as of this encounter
--- OUTSIDE RECORDS SUMMARY | 2025-03-24 23:23 | XMS_ITS | Encounter Summary ---
Author Organization [facility] Address [address] [place] [address] Phone Care Team Providers Care Warehouse Order Puller Name Role Phone Tremaine West DO Primary Care Provider Ania Brothers IMAGER-SUPERVISOR COLOR MAKING Unavailable Unavailable June Preston MD Unavailable Sol Keita PHARMACY GENERAL MANAGER Unavailable [phone] June Preston MD Unavailable Oscar Rodriguez MD Unavailable [phone] Generic Provider, No Assigned Pcp Primary Car e Provider Unavailable Diane Min RN Unavailable Unavailable June Preston MD Unavailable Conchita Aden MD Primary Care Provider [phone] Diane Min RN Unavailable Unavailable Encounter Details Date Type Department Care Team (Late st Contact Info) Description 08/15/2019 Orders Only [facility] [address] [place] [place] [address] Conversion, Onbase Social History Tobacco Use Types [...] Description 04/03/2025 1:00 PM EDT Hospital Encounter [facility] [address] [place] [address] 04/14/2025 10:30 AM EDT Hospital Encounter [facility] [place] [address] [place] [address] [place] [address] Kervin Fair MD [address] [place] [address] Ventricular tachycardia (Multi) 04/14/2025 12:00 PM EDT - 04/14/2025 4:00 PM EDT Surgery [facility] [place] [address] [place] [address] [place] [address] Kervin Fair MD [address] [place] [address] [place] [[id number] (CPT )] 07/14/2025 1:00 PM EDT Office Visit [facility] 703 [facility] 250 [place] [address] Oscar Rodriguez MD 703 [facility] 2, [address] [place] [address] 09/26/2025 12:20 PM EST Appointment [facility] [address] [place] [address] 09/26/2025 1:00 PM EST Office Visit [facility] [address] [facility] [address] [place] [address] June Preston MD 125 [address] [facility] Office [facility], [facility] [address] [place] [address] Scheduled Orders Name Type Priority Associated Diagnoses Orde r Schedule OUTSIDE LAB SCAN Lab Ordered: 08/15/2019 OUTSIDE LAB SCAN Lab Ordered: 08/15/2019 documented as of this encounter Visit Diagnoses Not on filedocumented in this encounter Additional Health Concerns Infection Onset Date Last Indicated Resolved Time COVID-19 Rule-Out 01/08/2025 01/08/2025 01/08/2025 11:23 PM EDT Influenza Rule-out 01/08/2025 01/08/2025 11:23 PM EDT RSV Rule-out 01/08/2025 01/08/2025 01/08/2025 11:2 3 PM EDT Influenza 01/08/2025 01/08/2025 01/15/2025 5:23 AM EDT Gastrointestinal Rule-Out 01/11/2025 01/11/2025 7:00 AM EDT documented as of this encounter Care Teams Warehouse Order Puller Relationship Specialty Start Date End Date Tremaine West DO [address] Amor West DO [facility] [address] [place] [address] PCP - General 01/22/22 11/05/23 Generic Provider, No Assigned Pcp, [facility] [place] [address] PCP - General Healthcare Network Consultant 08/08/24 11/10/24 Conchita Aden MD [address] [place] [address] [place] [address] PCP - General Family Medicine 11/11/24 Ania Brothers APRN-SUPERVISOR COLOR MAKING [address] Amor West DO [address] [address] Nurse Practitioner Cardiology 09/30/23 02/16/24 June Preston MD [address] Amor West, DO [facility] [address] [place] [address] Junior Programmer Cardiology 09/30/23 02/16/24 Sol Keita, PHARMACY GENERAL MANAGER Slot AmbassadorFront Office Java Developer 02/19/24 05/17/24 June Preston MD [address] [facility] Bl, [address] [place], [place] [address] Consulting Physician Cardiology 02/19/24 02/29/24 Oscar Rodriguez MD 703 [facility] 2, [address] [place], [place] [address] Consulting Physician Cardiology 02/19/24 02/29/24 Diane Min, dewaterer operatorFront Office Java Developer 09/05/24 12/06/24 June Preston MD 125 [address] [facility], [address] [place] [address] Junior Programmer Electrophysiology 09/13/24 Diane Min, dewaterer operatorFront Office Java Developer 01/16/25 01/31/25 documented as of this encounter
--- OUTSIDE RECORDS SUMMARY | 2025-03-24 23:23 | XMS_ITS | Encounter Summary ---
Author Organization [facility] Address [address] [place] [address] Phone Care Team Providers Care Infection Control Preventionist Name Role Phone Tremaine West DO Primary Care Provider Ania Brothers MEDICAL INTERN-CLINICAL CODER Unavailable Unavailable June Preston MD Unavailable Sol Keita ANESTHESIA TECH Unavailable [phone] June Preston MD Unavailable Oscar Rodriguez MD Unavailable [phone] Generic Provider, No Assigned Pcp Primary Car e Provider Unavailable Diane Min RN Unavailable Unavailable June Preston MD Unavailable Conchita Aden MD Primary Care Provider [phone] Diane Min RN Unavailable Unavailable Encounter Details Date Type Department Care Team (Late st Contact Info) Description 06/30/2020 Orders Only [facility] [address] [place] [place] [address] Conversion, Onbase Social History Tobacco Use Types [...] Description 04/03/2025 1:00 PM EDT Hospital Encounter [facility] [address] [place] [address] 04/14/2025 10:30 AM EDT Hospital Encounter [facility] [place] [address] [place] [address] [place] [address] Kervin Fair MD [address] [place] [address] Ventricular tachycardia (Multi) 04/14/2025 12:00 PM EDT - 04/14/2025 4:00 PM EDT Surgery [facility] [place] [address] [place] [address] [place] [address] Kervin Fair MD [address] [place] [address] [place] [[id number] (CPT )] 07/14/2025 1:00 PM EDT Office Visit [facility] 703 [facility] [address] [place] [address] Oscar Rodriguez MD 703 [facility] 2, [address] [place] [address] 09/26/2025 12:20 PM EST Appointment [facility] [address] [place] [address] 09/26/2025 1:00 PM EST Office Visit [facility] [address] [facility] [address] [place] [address] June Preston MD [address] [facility] Office [facility], [facility] [address] [place] [address] Scheduled Orders Name Type Priority Associated Diagnoses Orde r Schedule OUTSIDE LAB SCAN Lab Ordered: 06/30/2020 documented as of this encounter Visit Diagnoses [...] documented as of this encounter Care Teams Infection Control Preventionist Relationship Specialty Start Date End Date Tremaine West DO 1610 [facility] Tremaine West [facility] [address] [place] [address] PCP - General 01/22/22 11/05/23 Generic Provider, No Assigned Pcp, [place] [address] PCP - General Signal Operator Technical 08/08/24 11/10/24 Conchita Aden MD [address] [place] [address] PCP - General Family Medicine 11/11/24 Ania Brothers, MEDICAL INTERN-CLINICAL CODER [address] Amor West [facility] [address] [place] [address] Nurse Practitioner Cardiology 09/30/23 02/16/24 June Preston MD 1610 [facility] Tremaine West, [facility] [address] [place] [address] Fur Feeder Cardiology 09/30/23 02/16/24 Sol Keita, ANESTHESIA TECH Burr PickerSenior Financial Reporting Analyst 02/19/24 05/17/24 June Preston MD 125 [address] [facility] Bldg, [address] [place] [address] Consulting Physician Cardiology 02/19/24 02/29/24 Oscar Rodriguez MD 703 [facility] 2, [address] [place] [address] Consulting Physician Cardiology 02/19/24 02/29/24 Diane Min, family consultantSenior Financial Reporting Analyst 09/05/24 12/06/24 June Preston MD 125 [address] [facility], [address] [place] [address] Fur Feeder Electrophysiology 09/13/24 Diane Min, family consultantSenior Financial Reporting Analyst 01/16/25 01/31/25 documented as of this encounter
--- OUTSIDE RECORDS SUMMARY | 2025-03-24 23:23 | XMS_ITS | Encounter Summary ---
Author Organization [facility] Address [address] [place] [address] Care Team Providers Care Molecular Spectroscopist Name Role Phone Conchita Aden MD Primary Care Provider [phone] Encounter Details Date Type Department Care Team (Late Contact Info) Description 10/22/2024 Abstract [facility] OB [address] [facility] [place] [phone] David Ewing, DO [address] [facility] [address] [place], [facility]11 Social History Tobacco Use Types Packs/Day Years Used Date Smoking Tobacco: Every Day Cigarettes Comments Unknown Sex and Gender Information Value Date Recorded Sex Assigned at Not on file Legal Sex Female 6:52 PM EDT Gender Identity Not on file Sexual Orientation Not on file documented as of this encounter Plan of Treatment Not on file documented as of this encounter Visit Diagnoses Not on filedocumented in this encounter Care Teams Molecular Spectroscopist Relationship Specialty Start Date End Date Conchita Aden MD PCP - General Family Medicine 11/07/24 documented as of this encounter
--- OUTSIDE RECORDS SUMMARY | 2025-03-24 23:23 | XMS_ITS | Encounter Summary ---
Author Organization [facility] Address [address] [place] [address] Phone Care Team Providers Care Dupligraph Operator Name Role Phone Tremaine West DO Primary Care Provider Ania Brothers SANITATION LABORER-DISPLAY MECHANIC Unavailable Unavailable June Preston MD Unavailable Sol Keita PRINCIPAL ACCOUNT CLERK Unavailable [phone] June Preston MD Unavailable Oscar Rodriguez MD Unavailable [phone] Generic Provider, No Assigned Pcp Primary Car e Provider Unavailable Diane Min RN Unavailable Unavailable June Preston MD Unavailable Conchita Aden MD Primary Care Provider [phone] Diane Min RN Unavailable Unavailable Encounter Details Date Type Department Care Team (Late st Contact Info) Description 07/04/2020 Orders Only [facility] [address] [place] [address] Conversion, Onbase Social History Tobacco Use Types [...] Description 04/03/2025 1:00 PM EDT Hospital Encounter [facility] [address] [place] [address] 04/14/2025 10:30 AM EDT Hospital Encounter [facility] [place] [address] [place] [address] [place] [address] Kervin Fair MD [address] [place] [address] Ventricular tachycardia (Multi) 04/14/2025 12:00 PM EDT - 04/14/2025 4:00 PM EDT Surgery [facility] [place] [address] [place] [address] [place] [address] Kervin Fair MD [address] [place] [address] [place] [[id number] (CPT )] 07/14/2025 1:00 PM EDT Office Visit [facility] 703 [facility] 250 [place] [address] Oscar Rodriguez MD 703 [facility] 2, [address] [place] [address] 09/26/2025 12:20 PM EST Appointment [facility] [address] [place] [address] 09/26/2025 1:00 PM EST Office Visit [facility] [address] [facility] [address] [place] [address] June Preston MD 125 [address] [facility] Office [facility], [facility] [address] [place] [address] Scheduled Orders Name Type Priority Associated Diagnoses Orde r Schedule OUTSIDE LAB SCAN Lab Ordered: 07/04/2020 documented as of this encounter Visit Diagnoses [...] documented as of this encounter Care Teams Dupligraph Operator Relationship Specialty Start Date End Date Tremaine West DO 1610 [facility] Tremaine West [facility] 103 [place] [address] PCP - General 01/22/22 11/05/23 Generic Provider, No Assigned [place], [place] [address] PCP - General Certified Registered Locksmith 08/08/24 11/10/24 Conchita Aden MD [address] [place] [address] PCP - General Family Medicine 11/11/24 Ania Brothers, SANITATION LABORER-DISPLAY MECHANIC [address] [place] Amor West [facility] [address] [place] [address] Nurse Practitioner Cardiology 09/30/23 02/16/24 June Preston MD 1610 [facility] Tremaine West, [facility] 103 [place] [address] Scoop Operator Cardiology 09/30/23 02/16/24 Sol Keita, PRINCIPAL ACCOUNT CLERK Brand SpecialistService Or Work Dispatcher 02/19/24 05/17/24 June Preston MD [address] [facility] Bldg, [address] [place] [address] Consulting Physician Cardiology 02/19/24 02/29/24 Oscar Rodriguez MD 703 [facility] 2, [address] [place] [address] Consulting Physician Cardiology 02/19/24 02/29/24 Diane Min, spool cleaner handService Or Work Dispatcher 09/05/24 12/06/24 June Preston MD 125 [address] [facility], [address] [place] [address] Scoop Operator Electrophysiology 09/13/24 Diane Min, spool cleaner handService Or Work Dispatcher 01/16/25 01/31/25 documented as of this encounter
--- OUTSIDE RECORDS SUMMARY | 2025-03-24 23:23 | XMS_ITS | Clinical Summary ---
Author Organization [facility] Address [address] [place] [address] Care Team Providers Care Instructor Decorating Name Role Phone Conchita Aden MD Primary Care Provider [phone] Allergies No known active allergies Medications oxybutynin XL (Ditropan-XL) 10 MG 24 hr tabletIndications :Urge incontinence of urine TAKE 1 TABLET BY MOUTH EVERY DAY 90 tablet 4 Active acetaminophen-cod eine (Tylenol w/ Codeine #3) 300-30 MG tablet Take 1 tablet by mouth every 4 (four) hours if needed for moderate pain 5 Active amiodarone (Pacerone) 200 MG tablet Take 200 mg by mouth in the morning. 4 Active Invokana 300 MG Take 300 mg by mouth in the morning. Take before meals. Active lansoprazole (Prevacid) [address] capsule Take 30 mg by mouth in the morning. Take before meals. Active lisinopril 2.5 MG tablet Take 2.5 mg by mouth in the morning. 4 09/27/20 25 Active lurasidone (Latuda) 60 MG tablet Take 60 mg by mouth in the morning. Take with meals. Active meclizine (Antivert) 25 MG tablet Take 25 mg by mouth 3 (three) times a day as needed for dizziness 4 Active melatonin 5 MG tablet Take 5 mg by mouth 1 (one) time each day at the same time Active mexiletine (Mexitil) 150 MG capsule Take 150 mg by mouth in the morning and 150 mg at noon and 150 mg in the evening. 4 Active nitroglycerin (Nitrostat) 0.[address] 0.4 mg under the tongue every 5 (five) minutes if needed for chest pain Active QUEtiapine (SEROquel) 200 MG tablet Take 200 mg by mouth 1 (one) time each day at the same time 4 Active ranolazine (Ranexa) 500 MG 12 hr tablet Take 500 mg by mouth in the morning and 500 mg before bedtime. 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 04/25/2024 Urge incontinence of urine 09/30/2023 Hypercholesterolemia Encounters Date Type Department Care Team Description 01/01/2025 Refill [facility] [address] [place] [address] Tremaine Combs, DO Urge incontinence of urine 12/28/2024 Telephone [facility] [address] [place] [address] Otis Gould PA referral from Last 3 Months Immunizations Immunization Administration Dates Next Due Hep A / Hep B 04/16/2020 Influenza, Unspecified 08/02/2019,2016,09/24/2014,11/02 Influenza, injectable, MDCK, preservative free, quadrivalent 06/21/2021 Influenza, injectable, quadr ivalent, preservative free 01/22/2021,09/14/2018,08/24/2017 Pneumococcal Polysaccharide PPSV23 04/16/2020,,11/09/2006 Tdap 06/10/2021,04/16/2020,08/02/2019 Zoster, Recombinant 04/16/2020,08/03/2019 Family History Medical History Relation Name Comments Bipolar disorder Other Diabetes Other Heart disease Other Hypertension Other Stroke Other Relation Name Status Comments Other Social History Tobacco Use Types Packs/Day Years Used Date Smoking Tobacco: Every Day Cigarettes Tobacco Cessation:Ready to Q uit: Not Asked; Counseling Given: Not Answered Comments No Sex and Gender Information Value Date Recorded Sex Assigned at Not on file Legal Sex Female 6:52 PM EDT Gender Identity Not on file Sexual Orientation Not on file Last Filed Vital Signs Vital Sign Reading Time Taken Comments Blood Pressure 118/60 11/07/2024 10:55 AM EST Pulse - - Temperature 35.7 C (96.2 F) 04/25/2024 3:55 AM EDT Respiratory Rate - - Oxygen Saturation - - Inhaled Oxygen Concentration - - Weight 68.7 kg (151 lb 6.4 oz) 11/07/2024 10:55 AM EST Height 157.5 cm (5' 2 ) 11/07/2024 10:55 AM EST Body Mass Index 27.69 11/07/2024 10:55 AM EST Plan of Treatment Health Maintenance Due Date Last Done Comments CT Colonography 1960 Colonoscopy 1960 Colorectal Cancer Screening 1960 FIT-DNA 1960 FIT 1960 FOBT 1960 Sigmoidoscopy 1960 Pap Smear 1981 Cervical Cancer Screening 1990 HPV/Cotest 1990 Mammogram 2000 Influenza Vaccine (Season Ended) 2025 06/21/2021, 01/22/2021, 08/02/2019, Additional history exists Insurance [employer] Care Teams Instructor Decorating Relationship Specialty Start Date End Date Conchita Aden MD PCP - General Family Medicine 11/07/24
--- OUTSIDE RECORDS SUMMARY | 2025-03-24 23:23 | XMS_ITS | Encounter Summary ---
Author Organization [facility] Address [address] [place] [address] Care Team Providers Care Casino Floor Runner Name Role Phone Conchita Aden MD Primary Care Provider [phone] Encounter Details Date Type Department Care Team (Late Contact Info) Description 10/30/2024 Clinisync Result Encounter [facility] External Department Unsolicited Charity Gerard PA [address] [place] [address] [place] [address] Social History Tobacco Use Types Packs/Day Years [...] Procedure Name Priority Date/Time Associated Diagnosis Comments ECG 12-LEAD 10/30/2024 3:00 PM EST documented in this encounter Results * ECG 12-LEAD (10/30/2024 3:00 PM EST) Anatomical Region Laterality Modality Other 10/30/2024 3:00 PM EST Narrative 10/31/2024 6:59 AM EST The [address] [address] Electrocardiograph Report Signed Patient: KNIG MORENO MR#: [id number] : 1960 Acct:[id number] Age/Sex: 63 / F ADM Date: 10/30/24 Loc: [place] 203-[address]: Parmjit Poon M.D. Ordering Physician: Charity Gerard Date of Service: 10/30/24 Procedure(s): ECG 12 lead Accession Number(s): [id number] cc: [facility] Test Date: 2024-10-30 Pat Name: KING MORENO Department: Room: - Gender: Female Button Breaker Operator: : 1960 Requested By: CONCHITA ADEN Order Number: [id number] Reading MD: FELIZ JENNINGS Measurements Intervals [place] Rate: 94 P: 68 [place]: 126 QRS: 56 QRSD: 84 T: 90 QT: 348 QTc: 399 Interpretive Statements 1100 Sinus rhythm 4068 Nonspecific Twave abnormality, can't exclude inferolateral ischemia 8102 Low QRS voltage in chest leads 9130 borderline ECG Compared to ECG 10/29/2024 16:19:34 No significant changes Electronically Signed On 10-31-2024 6:59:03 EST by FELIZ JENNINGS Dictated By: Feliz Jennings D.O. Signed By: 10/31/24 0659 DD/ 1500 TD/TT: Digital Communications Manager: Procedure Note Radiology, Radiologist, MD - 10/31/2024 [place] [address] Electrocardiograph Report Signed Patient: KING MORENO AMR#: [id number] : 1Acct:[id number] Age/Sex: 63 / FADM Date: 10/30/24 Loc: [place] 203-[address]: Parmjit Poon M.D. Ordering Physician: Charity Gerard Date of Service: 10/30/24 Procedure(s): ECG 12 lead Accession Number(s): [id number] cc: [facility] Test Date: 2024-10-30 Pat Name: KING MORENO Department: Room: - Gender: Female Button Breaker Operator: : 1960 Requested By: CONCHITA ADEN Order Number: [id number] Reading MD: FELIZ JENNINGS Measurements Intervals [place] Rate: 94 P: 68 [place]: 126 QRS: 56 QRSD: 84 T: 90 QT: 348 QTc: 399 Interpretive Statements 1100 Sinus rhythm 4068 Nonspecific Twave abnormality, can't exclude inferolateral ischemia 8102 Low QRS voltage in chest leads 9130 borderline ECG Compared to ECG 10/29/2024 16:19:34 No significant changes Electronically Signed On 10-31-2024 6:59:03 EST by FELIZ JENNINGS Dictated By: Feliz Jennings D.O. Signed By:10/31/24 0659 DD/ 1500 TD/TT: Digital Communications Manager: Charity [facility] Final Result documented in this encounter Visit Diagnoses Not on filedocumented in this encounter Care Teams Casino Floor Runner Relationship Specialty Start Date End Date Conchita Aden MD PCP - General Family Medicine 11/07/24 documented as of this encounter
--- OUTSIDE RECORDS SUMMARY | 2025-03-24 23:23 | XMS_ITS | Encounter Summary ---
Author Organization [facility] Address [address] [place] [address] Phone Care Team Providers Care Licsw Name Role Phone Tremaine West DO Primary Care Provider Ania Brothers LACROSSE COACH-FIBER OPTICS TECHNICIAN Unavailable Unavailable June Preston MD Unavailable Sol Keita SSIS ETL DEVELOPER Unavailable [phone] June Preston MD Unavailable Oscar Rodriguez MD Unavailable [phone] Generic Provider, No Assigned Pcp Primary Car e Provider Unavailable Diane Min RN Unavailable Unavailable June Preston MD Unavailable Conchita Aden MD Primary Care Provider [phone] Diane Min RN Unavailable Unavailable Encounter Details Date Type Department Care Team (Late st Contact Info) Description 08/20/2020 Orders Only [facility] LEGACY [address] [place] [address] Conversion, Onbase Social History Tobacco Use Types [...] Description 04/03/2025 1:00 PM EDT Hospital Encounter [facility] [address] [place] [address] 04/14/2025 10:30 AM EDT Hospital Encounter [facility] [place] [address] [place] [address] [place] [phone] Kervin Fair MD [address] [place] [address] Ventricular tachycardia (Multi) 04/14/2025 12:00 PM EDT - 04/14/2025 4:[address] [facility] [place] [address] [place] [address] [place] [address] Kervin Fair MD [address] [place] [address] [place] [84504 (CPT )] 07/14/2025 1:00 PM EDT Office Visit [facility] 703 [facility] [address] [place] [address] Oscar Rodriguez MD 703 [facility] 2, Steve [address] [place] [address] 09/26/2025 12:20 PM EST Appointment [facility] [address] [place] [address] 09/26/2025 1:00 PM EST Office Visit [facility] [address] [facility] [address] [place] [address] June Preston MD [address] [facility] Office [facility], [facility] [address] [place] [address] Scheduled Orders Name Type Priority Associated Diagnoses Orde r Schedule OUTSIDE LAB SCAN Lab Ordered: 08/20/2020 documented as of this encounter Visit Diagnoses [...] documented as of this encounter Care Teams Licsw Relationship Specialty Start Date End Date Tremaine West DO 1610 [facility] Tremaine West [facility] [address] [place] [address] PCP - General 01/22/22 11/05/23 Generic Provider, No Assigned Pcp, [place] [address] PCP - General Senior Embedded Software Engineer 08/08/24 11/10/24 Conchita Aden MD [address] [place] [address] PCP - General Family Medicine 11/11/24 Ania Brothers, LACROSSE COACH-FIBER OPTICS TECHNICIAN [address] [place] Amor [place] [facility] [address] [place] [address] Nurse Practitioner Cardiology 09/30/23 02/16/24 June Preston MD 1610 [facility] Tremaine West, [facility] [address] [place] [address] Business Systems Developer Cardiology 09/30/23 02/16/24 Sol Keita, SSIS ETL DEVELOPER Motorcycle FabricatorAfricana Studies Professor 02/19/24 05/17/24 June Preston MD [address] [facility] Bldg, Steve [address] [place] [address] Consulting Physician Cardiology 02/19/24 02/29/24 Oscar Rodriguez MD 703 [facility] 2, [address] [place] [address] Consulting Physician Cardiology 02/19/24 02/29/24 Diane Min, sports management internAfricana Studies Professor 09/05/24 12/06/24 June Preston MD 125 E [facility], Steve [address] [place] [address] Business Systems Developer Electrophysiology 09/13/24 Diane Min, sports management internAfricana Studies Professor 01/16/25 01/31/25 documented as of this encounter
--- OUTSIDE RECORDS SUMMARY | 2025-03-24 23:23 | XMS_ITS | Encounter Summary ---
Author Organization [facility] Address [address] [place] [address] Phone Care Team Providers Care Debt And Budget Counselor Name Role Phone Tremaine West DO Primary Care Provider Ania Brothers EVP CHIEF EXPLORATION OFFICER-CAUSE ANALYST Unavailable Unavailable June Preston MD Unavailable Sol Keita INTERNATIONAL TRADE ANALYST Unavailable [phone] June Preston MD Unavailable Oscar Rodriguez MD Unavailable [phone] Generic Provider, No Assigned Pcp Primary Car e Provider Unavailable Diane Min RN Unavailable Unavailable June Preston MD Unavailable Conchita Aden MD Primary Care Provider [phone] Diane Min RN Unavailable Unavailable Encounter Details Date Type Department Care Team (Late st Contact Info) Description 03/25/2023 Orders Only [facility] [address] [place] [address] Conversion, Onbase Social History Tobacco Use Types [...] Description 04/03/2025 1:00 PM EDT Hospital Encounter [facility] [address] [place] [address] 04/14/2025 10:30 AM EDT Hospital Encounter [facility] [address] [facility] [address] [place] [address] Kervin Fair MD [address] [place] [address] Ventricular tachycardia (Multi) 04/14/2025 12:00 PM EDT - 04/14/2025 4:00 PM EDT Surgery [facility] [address] [facility] [address] [place] [address] Kervin Fair MD [address] [place] [address] [place] [46[address] (CPT )] 07/14/2025 1:00 PM EDT Office Visit [facility] 703 [facility] 250 [place] [address] Oscar Rodriguez MD 703 [facility] 2, [address] [place] [address] 09/26/2025 12:20 PM EST Appointment [facility] [address] [place] [address] 09/26/2025 1:00 PM EST Office Visit [facility] 125 E [facility] [address] [place] [address] June Preston MD 125 [address] [facility] Office [facility], [facility] [address] [place], [place] [address] Scheduled Orders Name Type Priority Associated Diagnoses Orde r Schedule OUTSIDE LAB SCAN Lab Ordered: 03/25/2023 documented as of this encounter Visit Diagnoses [...] Time PHQ-9 Depression Total Score: 9 01/23/20 11:33 AM EDT documented as of this encounter Care Teams Debt And Budget Counselor Relationship Specialty Start Date End Date Tremaine West DO [address] [place] [place] [address] [address] PCP - General 01/22/22 11/05/23 Generic Provider, No Assigned Pcp, [place] [address] PCP - General Cardiac Cath Lab Manager 08/08/24 11/10/24 Conchita Aden MD [address] [place] [address] PCP - General Family Medicine 11/11/24 Ania Brothers, EVP CHIEF EXPLORATION OFFICER-CAUSE ANALYST [address] [place]or [place] [address] [address] Nurse Practitioner Cardiology 09/30/23 02/16/24 June Preston MD [address] [place] [address] [address] Dish Machine Operator Cardiology 09/30/23 02/16/24 Sol Keita, INTERNATIONAL TRADE ANALYST [place] ClerkDialysis Patient Care Technician 02/19/24 05/17/24 June Preston MD 125 E [facility], [facility] [address] [place] [address] Consulting Physician Cardiology 02/19/24 02/29/24 Oscar Rodriguez MD 703 [facility] 2, [address] [place] [address] Consulting Physician Cardiology 02/19/24 02/29/24 Diane Min, is support analystDialysis Patient Care Technician 09/05/24 12/06/24 June Preston MD 125 [address] [facility], [facility] [address] [place] [address] Dish Machine Operator Electrophysiology 09/13/24 Diane Min, is support analystDialysis Patient Care Technician 01/16/25 01/31/25 documented as of this encounter
--- OUTSIDE RECORDS SUMMARY | 2025-03-24 23:23 | XMS_ITS | Encounter Summary ---
Author Organization [facility] Address [address] [place] [address] Care Team Providers Care Junior Account Executive Name Role Phone Conchita Aden MD Primary Care Provider [phone] Encounter Details Date Type Department Care Team (Late Contact Info) Description 10/22/2024 Abstract [facility] OB [address] [facility] [place] [address] David Ewing, DO [address] Sven [place], [facility]11 Social History Tobacco Use Types Packs/Day Years [...] on filedocumented in this encounter Care Teams Junior Account Executive Relationship Specialty Start Date End Date Conchita Aden MD PCP - General Family Medicine 11/07/24 documented as of this encounter
--- OUTSIDE RECORDS SUMMARY | 2025-03-24 23:23 | XMS_ITS | Encounter Summary ---
Author Organization [facility] Address [address] [place] [address] Care Team Providers Care Child Care Centre Manager Name Role Phone Conchita Aden MD Primary Care Provider [phone] Encounter Details Date Type Department Care Team (Late Contact Info) Description 10/22/2024 Abstract [facility] OB [address] [facility] [place] [phone] David Ewing, DO [address] [facility] [address] S[place], [facility] Social History Tobacco Use Types Packs/Day Years [...] on filedocumented in this encounter Care Teams Child Care Centre Manager Relationship Specialty Start Date End Date Conchita Aden MD PCP - General Family Medicine 11/07/24 documented as of this encounter
--- OUTSIDE RECORDS SUMMARY | 2025-03-24 23:23 | XMS_ITS | Encounter Summary ---
Author Organization [facility] Address [address] [place] [address] Phone Care Team Providers Care Girls Swimming Coach Name Role Phone Tremaine West DO Primary Care Provider Ania Brothers DRAWING OPERATOR-ANESTHESIOLOGIST PHYSICIAN Unavailable Unavailable June Preston MD Unavailable Sol Keita COMMUNICATION CENTER OPERATOR Unavailable [phone] June Preston MD Unavailable Oscar Rodriguez MD Unavailable [phone] Generic Provider, No Assigned Pcp Primary Car e Provider Unavailable Diane Min RN Unavailable Unavailable June Preston MD Unavailable Conchita Aden MD Primary Care Provider [phone] Diane Min RN Unavailable Unavailable Encounter Details Date Type Department Care Team (Late st Contact Info) Description 11/20/2020 Orders Only [facility] LEGACY [address] [place] [place] [address] Conversion, Onbase Social History Tobacco Use Types [...] Description 04/03/2025 1:00 PM EDT Hospital Encounter [facility] [address] [place] [address] 04/14/2025 10:30 AM EDT Hospital Encounter [facility] [place] [address] [place] [address] [place] [address] Kervin Fair MD [address] [place] [address] Ventricular tachycardia (Multi) 04/14/2025 12:00 PM EDT - 04/14/2025 4:00 PM EDT Surgery [facility] [place] [address] [place] [address] [place] [address] Kervin Fair MD [address] [place] [address] [place] [[id number] (CPT )] 07/14/2025 1:00 PM EDT [facility] 703 [facility] [address] [place] [address] Oscar Rodriguez MD 703 [facility] 2, [address] [place] [address] 09/26/2025 12:20 PM EST Appointment [facility] [address] [place] [address] 09/26/2025 1:00 PM EST Office Visit [facility] 125 [address] [facility] [address] [place] [address] June Preston MD 125 E [facility] Office [facility], [facility] [address] [place], [place] [address] Scheduled Orders Name Type Priority Associated Diagnoses Orde r Schedule OUTSIDE LAB SCAN Lab Ordered: 11/20/2020 documented as of this encounter Visit Diagnoses [...] documented as of this encounter Care Teams Girls Swimming Coach Relationship Specialty Start Date End Date Tremaine West DO 1610 [facility] Tremaine Childersiraidasimon [facility] 103 [place] [address] PCP - General 01/22/22 11/05/23 Generic Provider, No Assigned Pcp, [place] [address] PCP - General Food Service Clerk 08/08/24 11/10/24 Conchita Aden MD [address] [place] [address] PCP - General Family Medicine 11/11/24 Ania Brothers, DRAWING OPERATOR-ANESTHESIOLOGIST PHYSICIAN [address] [place] [address] [place] DO [facility] [address] [place] [address] Nurse Practitioner Cardiology 09/30/23 02/16/24 June Preston MD 1610 [facility] Tremaine eWst, [facility] 103 [place] [address] Buffer Operator Cardiology 09/30/23 02/16/24 Sol Keita, COMMUNICATION CENTER OPERATOR Retail Sales Associate BilingualPercussion Instrument Tuner 02/19/24 05/17/24 June Preston MD [address] [facility] Bldg, [address] [place] [address] Consulting Physician Cardiology 02/19/24 02/29/24 Oscar Rodriguez MD 703 [facility] 2, [address] [place] [address] Consulting Physician Cardiology 02/19/24 02/29/24 Diane Min, corsage makerPercussion Instrument Tuner 09/05/24 12/06/24 June Preston MD 125 E [facility] [address] [place] [address] Buffer Operator Electrophysiology 09/13/24 Diane Min, corsage makerPercussion Instrument Tuner 01/16/25 01/31/25 documented as of this encounter
--- OUTSIDE RECORDS SUMMARY | 2025-03-24 23:23 | XMS_ITS | Encounter Summary ---
Author Organization [facility] Address [address] [place] [address] Phone Care Team Providers Care Amortization Clerk Name Role Phone Tremaine West DO Primary Care Provider Ania Brothers STEEL TIER-RESEARCH ASST Unavailable Unavailable June Preston MD Unavailable Sol Keita SILK HANGER Unavailable [phone] June Preston MD Unavailable Oscar Rodriguez MD Unavailable [phone] Generic Provider, No Assigned Pcp Primary Car e Provider Unavailable Diane Min RN Unavailable Unavailable June Preston MD Unavailable Conchita Aden MD Primary Care Provider [phone] Diane Min RN Unavailable Unavailable Encounter Details Date Type Department Care Team (Late st Contact Info) Description 01/31/2021 Orders Only [facility] LEGACY [address] [place] [address] Conversion, Onbase Social History Tobacco Use Types [...] PM EDT Hospital Encounter [facility] [address] [place] [address] 04/14/2025 10:30 AM EDT Hospital Encounter [facility] [place] [address] [place] [address] [place] [address] Kervin Fair MD [address] [place] [address] Ventricular tachycardia (Multi) 04/14/2025 12:00 PM EDT - 04/14/2025 4:00 PM EDT Surgery [facility] [place] [address] [place] [address] [place] [address] Kervin Fair MD [address] [place] [address] [place] [[id number] (CPT )] 07/14/2025 1:00 PM EDT Office Visit [facility] 703 [facility] 250 [place] [address] Oscar Rodriguez MD 703 [facility] 2, [address] [place] [address] 09/26/2025 12:20 PM EST Appointment [facility] [address] [place] [address] 09/26/2025 1:00 PM EST Office Visit [facility] 125 E [facility] [address] [place] [address] June Preston MD 125 [address] [facility] Office [facility], [facility] [address] [place], [place] [address]- Scheduled Orders Name Type Priority Associated Diagnoses Orde r Schedule OUTSIDE LAB SCAN Lab Ordered: 01/31/2021 documented as of this encounter Visit Diagnoses [...] documented as of this encounter Care Teams Amortization Clerk Relationship Specialty Start Date End Date Tremaine West DO 1610 [facility] Tremaine Childersiraidasimon [facility] 103 [place] [address] PCP - General 01/22/22 11/05/23 Generic Provider, No Assigned [place]cp, [place] [address] PCP - General Asphalt Mixer 08/08/24 11/10/24 Conchita Aden MD [address] [place] [address] PCP - General Family Medicine 11/11/24 Ania Brothers, STEEL TIER-RESEARCH ASST [address] [place] [address] DO [facility] [address] [place] [address] Nurse Practitioner Cardiology 09/30/23 02/16/24 June Preston MD 1610 [facility] Tremaine West, [facility] 103 [place] [address] Coring Machine Operator Cardiology 09/30/23 02/16/24 Sol Keita, SILK HANGER Portal ArchitectFirearms Specialist 02/19/24 05/17/24 June Preston MD 125 E [facility] Bldg, [address] [place] [address] Consulting Physician Cardiology 02/19/24 02/29/24 Oscar Rodriguez MD 703 [facility] 2, [address] [place] [address] Consulting Physician Cardiology 02/19/24 02/29/24 Diane Min, field logistics coordinatorFirearms Specialist 09/05/24 12/06/24 June Preston MD [facility] [address] [place] [address] Coring Machine Operator Electrophysiology 09/13/24 Diane Min, field logistics coordinatorFirearms Specialist 01/16/25 01/31/25 documented as of this encounter
--- OUTSIDE RECORDS SUMMARY | 2025-03-24 23:23 | XMS_ITS | Encounter Summary ---
Author Organization [facility] Address [address] [place] [address] Phone Care Team Providers Care Oyster Washer Name Role Phone Tremaine West DO Primary Care Provider Ania Brothers TALENT REP-DIAMOND DIE POLISHER Unavailable Unavailable June Preston MD Unavailable Sol Keita EXPORT MANAGER Unavailable [phone] June Preston MD Unavailable Oscar Rodriguez MD Unavailable [phone] Generic Provider, No Assigned Pcp Primary Car e Provider Unavailable Diane Min RN Unavailable Unavailable June Preston MD Unavailable Conchita Aden MD Primary Care Provider [phone] Diane Min RN Unavailable Unavailable Encounter Details Date Type Department Care Team (Late st Contact Info) Description 09/08/2019 Orders Only [facility] [address] [place] [place] [address] Conversion, Onbase Social History Tobacco Use Types [...] Description 04/03/2025 1:00 PM EDT Hospital Encounter [facility] [address] [place] [address] 04/14/2025 10:30 AM EDT Hospital Encounter [facility] [place] [address] [place] [address] [place] [phone] Kervin Fair MD [address] [place] [address] Ventricular tachycardia (Multi) 04/14/2025 12:00 PM EDT - 04/14/2025 4:00 PM EDT Surgery [facility] [place] [address] [place] [address] [place] [phone] Kervin Fair MD [address] [place] [address] [place] [13985 (CPT )] 07/14/2025 1:00 PM EDT Office Visit [facility] 703 [facility] [address] [place] [address] Oscar Rodriguez MD 703 [facility] 2, [address] [place] [address] 09/26/2025 12:20 PM EST Appointment [facility] [address] [place] [address] 09/26/2025 1:00 PM EST Office Visit [facility] [address] [facility] [address] [place] [address] June Preston MD [address] [facility] Office [facility], [facility] [address] [place] [address] Scheduled Orders Name Type Priority Associated Diagnoses Orde r Schedule OUTSIDE LAB SCAN Lab Ordered: 09/08/2019 documented as of this encounter Visit Diagnoses [...] documented as of this encounter Care Teams Oyster Washer Relationship Specialty Start Date End Date Tremaine West DO 1610 [facility] Tremaine West [facility] [address] [place] [address] PCP - General 01/22/22 11/05/23 Generic Provider, No Assigned [place]cp, [place] [address] PCP - General Kitchen Aide 08/08/24 11/10/24 Conchita Aden MD [address] [place] [address] PCP - General Family Medicine 11/11/24 Ania Brothers, TALENT REP-DIAMOND DIE POLISHER [address] [place] [address] [facility] [address] [place] [address] Nurse Practitioner Cardiology 09/30/23 02/16/24 June Preston MD 1610 [facility] Tremaine West, [facility] [address] [place] [address] Microbiology Soil Scientist Cardiology 09/30/23 02/16/24 Sol Keita, EXPORT MANAGER Phonograph MechanicData Warehouse Consultant 02/19/24 05/17/24 June Preston MD [address] [facility], Steve [address] [place] [address] Consulting Physician Cardiology 02/19/24 02/29/24 Oscar Rodriguez MD 703 [facility] 2, [address] [place] [address] Consulting Physician Cardiology 02/19/24 02/29/24 Diane Min, fruit harvest machine operatorData Warehouse Consultant 09/05/24 12/06/24 June Preston MD 125 [address] [facility] [address] [place] [address] Microbiology Soil Scientist Electrophysiology 09/13/24 Diane Min, fruit harvest machine operatorData Warehouse Consultant 01/16/25 01/31/25 documented as of this encounter
--- OUTSIDE RECORDS SUMMARY | 2025-03-24 23:24 | XMS_ITS | Encounter Summary ---
Author Organization [facility] Address [address] [place] [address] Phone Care Team Providers Care Strategic Planning Consultant Name Role Phone Tremaine West DO Primary Care Provider Ania Brothers PRODUCTION REPRODUCTION MANAGER-MOUNTED POLICE OFFICER Unavailable Unavailable June Preston MD Unavailable Sol Keita STRIPPER CUTTER MACHINE Unavailable [phone] June Preston MD Unavailable Oscar Rodriguez MD Unavailable [phone] Generic Provider, No Assigned Pcp Primary Car e Provider Unavailable Diane Min RN Unavailable Unavailable June Preston MD Unavailable Conchita Aden MD Primary Care Provider [phone] Diane Min RN Unavailable Unavailable Encounter Details Date Type Department Care Team (Late st Contact Info) Description 05/27/2022 Orders Only [facility] LE[facility] [address] [place] [address] Conversion, Onbase Social History Tobacco Use Types [...] Description 04/03/2025 1:00 PM EDT Hospital Encounter [facility] [address] [place] [address] 04/14/2025 10:30 AM EDT Hospital Encounter [facility] [place] [facility] [address] [facility] [address] [place] [address] Kervin Fair MD [address] [place] [address] Ventricular tachycardia (Multi) 04/14/2025 12:00 PM EDT - 04/14/2025 4:00 PM EDT Surgery [facility] [place] [facility] [address] [facility] [address] [place] [address] Kervin Fair MD [address] [place] [address] [place] [20236 (CPT )] 07/14/2025 1:00 PM EDT Office Visit [facility] 703 [facility] 250 [place] [address] Oscar Rodriguez MD 703 [facility] 2, [address] [place] [address] 09/26/2025 12:20 PM EST Appointment [facility] [address] [place] [address] 09/26/2025 1:00 PM EST Office Visit [facility] [address] [facility] [address] [place] [address] June Preston MD [address] [facility] Office [facility], [facility] [address] [place], [place] [id number] Scheduled Orders Name Type Priority Associated Diagnoses Orde r Schedule OUTSIDE LAB SCAN Lab Ordered: 05/27/2022 documented as of this encounter Visit Diagnoses [...] documented as of this encounter Care Teams Strategic Planning Consultant Relationship Specialty Start Date End Date Tremaine West DO [address] [place] [place] [address] [address] PCP - General 01/22/22 11/05/23 Generic Provider, No Assigned Pcp, [place] [address] PCP - General Identity Management Developer 08/08/24 11/10/24 Conchita Aden MD [address] [place] [address] PCP - General Family Medicine 11/11/24 Ania Brothers, PRODUCTION REPRODUCTION MANAGER-MOUNTED POLICE OFFICER [address] [place] [address] [address] Nurse Practitioner Cardiology 09/30/23 02/16/24 June Preston MD [address] [place] [address] [address] Alterations Sewer Cardiology 09/30/23 02/16/24 Sol Keita, STRIPPER CUTTER MACHINE Plastics WorkerExpander Machine Operator 02/19/24 05/17/24 June Preston MD [address] [facility], [place] [facility] [address] [place] [address] Consulting Physician Cardiology 02/19/24 02/29/24 Oscar Rodriguez MD 703 [facility] 2, [address] [place] [address] Consulting Physician Cardiology 02/19/24 02/29/24 Diane Min, library science instructorExpander Machine Operator 09/05/24 12/06/24 June Preston MD [address] [facility], [facility] [address] [place] [address] Alterations Sewer Electrophysiology 09/13/24 Diane Min, library science instructorExpander Machine Operator 01/16/25 01/31/25 documented as of this encounter
--- OUTSIDE RECORDS SUMMARY | 2025-03-24 23:24 | XMS_ITS | Encounter Summary ---
Author Organization [facility] Address [address] [place] [address] Phone Care Team Providers Care Underwriter Name Role Phone Tremaine West DO Primary Care Provider Ania Brothers TUNNEL KILN FIRER-WARP SPLITTER Unavailable Unavailable June Preston MD Unavailable Sol Keita SCUTCHER TENDER Unavailable [phone] June Preston MD Unavailable Oscar Rodriguez MD Unavailable [phone] Generic Provider, No Assigned Pcp Primary Car e Provider Unavailable Diane Min RN Unavailable Unavailable June Preston MD Unavailable Conchita Aden MD Primary Care Provider [phone] Diane Min RN Unavailable Unavailable Encounter Details Date Type Department Care Team (Late st Contact Info) Description 07/22/2023 Scanned Document [facility] [address] [place] [address] Conversion, Onbase Social History Tobacco Use Types [...] Description 04/03/2025 1:00 PM EDT Hospital Encounter [facility] [address] [place] [address] 04/14/2025 10:30 AM EDT [facility] [address] [place] [address] [place] [address] Kervin Fair MD [address] [place] [address] Ventricular tachycardia (Multi) 04/14/2025 12:00 PM EDT - 04/14/2025 4:00 PM EDT Surgery [facility] [address] [place] [address] Kervin Fair MD [address] [place] [address] [place] [[id number] (CPT )] 07/14/2025 1:00 PM EDT Office Visit [facility] 703 [facility] [address] [place] [address] Oscar Rodriguez MD 703 [facility] 2, [address] [place] [address] 09/26/2025 12:20 PM EST Appointment [facility] [address] [place] [address] 09/26/2025 1:00 PM EST Office Visit [facility] [address] [facility] [address] [place] [address] June Preston MD [address] [facility] Office [facility], [address] [place] [address] documented as of this encounter Procedures Procedure Name Priority Date/Time Associated Diagnosis Comments ECHOCARDIOGRAM 07/22/2023 documented in this encounter Results * ECHOCARDIOGRAM (07/22/2023) Narrative 07/22/2023 Ordered by an unspecified provider. us Onbase Conversion CV ECHO PROCEDURES Final Resul t documented in this encounter Visit Diagnoses Not [...] documented as of this encounter Care Teams Underwriter Relationship Specialty Start Date End Date Tremaine West DO [address] [place] Amor West DO [address] [address] PCP - General 01/22/22 11/05/23 Generic Provider, No Assigned Pcp, [place] [address] PCP - General Newborn Hearing Screener 08/08/24 11/10/24 Conchita Aden MD [address] [place] [address] [place] [address] PCP - General Family Medicine 11/11/24 Ania Brothers, TUNNEL KILN FIRER-WARP SPLITTER [address] [place] DO [address] [place] [address] Nurse Practitioner Cardiology 09/30/23 02/16/24 June Preston MD [address] [place] DO [facility] [address] [place] [address] Tool Operator Cardiology 09/30/23 02/16/24 Sol Keita, SCUTCHER TENDER Mailroom AssociateMedia Planner 02/19/24 05/17/24 June Preston MD [address] [facility], [address] [place] [address] Consulting Physician Cardiology 02/19/24 02/29/24 Oscar Rodriguez MD 703 [facility] 2, [address] [place] [address] Consulting Physician Cardiology 02/19/24 02/29/24 Diane Min, pricing analystMedia Planner 09/05/24 12/06/24 June Preston MD [address] [facility], [address] [place] [address] Tool Operator Electrophysiology 09/13/24 Diane Min, pricing analystMedia Planner 01/16/25 01/31/25 documented as of this encounter
--- OUTSIDE RECORDS SUMMARY | 2025-03-24 23:24 | XMS_ITS | Clinical Summary ---
Author Organization [employer] Address [id number] [address] [place] [address] Care Team Providers Care Charge Manager Name Role Phone Unavailable Primary Care Provider Unavailabl e Allergies No known active allergies Medications rosuvastatin (CRESTOR) 20 mg tablet Take 1 tablet (20 mg total) by mouth in the morning. 5 11/11/19 26 Active rOPINIRole (REQUIP) 2 mg tablet TAKE 1 TABLET BY MOUTH DAILY AT BEDTIME FOR 90 DAYS. ADMINISTER 1-3 HOURS BEFORE BEDTIME 5 Active ranolazine (RANEXA) 500 mg 12 hr tablet Take 1 tablet (500 mg total) by mouth in the morning and 1 tablet (500 mg total) before bedtime. Active QUEtiapine (SEROquel) 200 mg tablet Take 1 tablet (200 mg total) by mouth. 4 Active oxybutynin XL (DITROPAN-XL) 10 mg 24 hr tablet Take 1 tablet (10 mg total) by mouth. 4 Active nitroglycerin (NITROSTAT) 0.[address] 1 tablet (0.4 mg total) under the tongue. Active metoprolol succinate XL (TOPROL XL) 25 mg 24 hr tablet Take 2 tablets (50 mg total) by mouth in the morning. 5 Active melatonin (CIRCADIN) 5 mg tablet Take 1 tablet (5 mg total) by mouth. Active meclizine (ANTIVERT) 25 mg tablet Take 1 tablet (25 mg total) by mouth Three times daily as needed. 4 Active lurasidone (LATUDA) 60 mg tablet tablet Take 1 tablet (60 mg total) by mouth in the morning. Active lisinopriL (PRINIVIL,ZESTR IL) 2.5 mg tablet Take 1 tablet (2.5 mg total) by mouth in the morning. 4 09/27/20 Active lansoprazole (PREVACID) 30 mg capsule Take 1 capsule (30 mg total) by mouth. Active INVOKANA 300 mg tablet Take 1 tablet (300 mg total) by mouth. 5 11/21/19 26 Active aspirin 81 mg Take 1 tablet (81 mg total) by mouth. 5 11/14/19 26 Active mexiletine (MEXITIL) 150 mg capsule Take 1 capsule (150 mg total) by mouth. 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 04/25/2024 Bipolar 1 disorder 09/30/2023 Degeneration of lumbar intervertebral disc 09/30 Polyneuropathy due to type 2 diabetes mellitus 1 11/30/2022 Atherosclerosis of apache co ronary artery of apache heart without angina pectoris 07/29/2023 Chronic obstructive pulmonary disease 07/29/2023 Chronic systolic CHF (congestive heart failure) 07/29/2023 Current every day smoker 07/29/2023 Essential hypertension 07/29/2023 Intermittent claudication 07/29/2023 Pulmonary embolism 07/29/2023 Type 2 diabetes mellitus 07/29/2023 Gastroesophageal reflux disease without esophagi tis 11/25/2021 Vascular insufficiency of intestine 04/09/2015 Encounters Date Type Department Care Team Description 03/01/2025 Telephone [facility] Gynecology Oncology, A Department [facility] [address] [place] [address] Charlotte Garcia, PAULA 02/22/2025 Telephone [facility] Gynecology Oncology, A Department of [facility] [address] [place] [address] Charlotte Garcia, RN from Last 3 Months Social History Tobacco Use Types Packs/Day Years Used Date Smoking Tobacco: Every Day Cigarettes Smokeless Tobacco: Never Tobacco Cessation:Ready to Q uit: Not Asked; Counseling Given: Not Answered Alcohol Use Standard Drinks/Week Comments Not Currently 0 (1 standard drink = 0.6 oz pur e alcohol) Comments Unknown Sex and Gender Information Value Date Recorded Sex Assigned at Not on file Legal Sex Female 11:37 AM EST Gender Identity Not on file Sexual Orientation Not on file Last Filed Vital Signs Vital Sign Reading Time Taken Comments Blood Pressure 116/68 11/29/2024 2:50 PM EST Pulse 70 11/29/2024 2:50 PM EST Temperature - - Respiratory Rate 14 11/29/2024 2:50 PM EST Oxygen Saturation 95% 11/29/2024 2:50 PM EST Inhaled Oxygen Concentration - - Weight 67 kg (147 lb 12.8 oz) 11/29/2024 2:34 PM EST Height - - Body Mass Index - - Plan of Treatment Health Maintenance Due Date Last Done Comments Diabetic Ophthalmology Exam 1960 Tobacco Counseling 1960 Depression Screening 1972 Adult BMI Screening 1978 Diabetic Foot Exam 1978 COVID-19 Vaccine (3 - 2023-2 5 season) 2024 06/21/2021, 02/19/2021 Influenza Vaccine 07/03/2025 06/21/2021, , 08/02/2019, Additional history exists Tobacco Screening 11/29/2025 11/29/2024 Pap Smear 11/29/2027 11/29/2024, 11/29/2024 DTaP,Tdap and Td Vaccines (4 - Td or Tdap) 06/10/2031 06/10/2021, 04/16/2020, 08/02/2019 Zoster (Shingles) Vaccine Completed 04/16/2020, 12/2018 Medical Devices Not on file Procedures Procedure Name Priority Date/Time Associated Diagnosis Comments HIGH RISK HPV W/RAMON Routine 11/29/2024 3:43 AM EST Encounter for screening for malignant neoplasm of cervix from Last 3 Months or Most Recently Relevant to Health Maintenance Results * High risk HPV w/ramon (11/29/2024 3:43 AM EST) Hpv specimen type ThinPrep 12/01/2024 3:43 AM EST [facility] Hpv 16 Negative Negative^N egative 12/01/2024 2:25 PM EST [facility] Hpv 18 Negative Negative^N egative 12/01/2024 2:25 PM EST [facility] Other high risk hpv Negative Negative^N egative 12/01/2024 2:25 PM EST [facility] Comment: HPV types 31,33,35,39,45,52,56,58,59,66 and 68 DNA were undetectable. THINP 11/29/2024 3:43 AM EST 12/01/2024 3:44 AM EST us Nanci Mcallister MD LAB BLOOD ORDERABLES Final Resul t [facility] [address] [place] [address] from Last 3 Months or Most Recently Relevant to Health Maintenance Insurance MEDICAID [place] MEDICARE
--- OUTSIDE RECORDS SUMMARY | 2025-03-24 23:24 | XMS_ITS | Patient Health Record ---
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 Infection due to Flu A cannot be ruled out. Flu A antigen in the sample may be below the detection limit of the test. Influenza Virus B Antigen Negative Negative for Flu B protein antigen. Infection due to Flu B cannot be ruled out. Flu B antigen in the sample may be below the detection limit of the test. Performing Lab: see note ML - [facility] LB LACTATE or LACTIC ACID Reviewed date:10/30/2024 08:29:21 PM Interpretation: Performing Lab: Notes/Report: [facility] , Lactate/Lactic Acid 3.0 0.4-2.0 mmol/L RESULT S CALLED TO SARA ZAVALETA Performing Lab: see note ML - [facility] LB Prothrombin Time INR Reviewed date:10/31/2024 08:21:23 PM Interpretation: Performing Lab: Notes/Report: [facility] , Prothrombin Time 64.4 9.0-11.6 sec RESULTS CALLED TO SUSSY CANO RN @BY Dilia Wilks at 2127 INR 7.41 RESULTS CALLED TO SUSSY CANO RN @BY Dilia Wilks at 2126 DESIRED INR: 2.0-3.0 CONDITIONS NOT LISTED BELOW 2.5-3.5 FOR PROSTHETIC HEART VALVE REPLACEMENT 2.5-3.5 RECURRENT THROMBOSIS Performing Lab: see note ML - [facility] LB Troponin I High Sensitivity Reviewed date:10/30/2024 08:29:22 PM Interpretation: Performing Lab: Notes/Report: [facility] , Troponin I High Sensitivity 6.0 4.0-51.3 pg/mL CUT-OFF POINTS HAVE BEEN ESTABLISHED BASED ON THE FOURTH UNIVERSAL DEFINITION OF MYOCARDIAL INFARCTION. THE UPPER REFERENCE LIMIT (URL) OF TROPONIN, DEFINED THE 99TH PERCENTILE OF cTnI DISTRIBUTION IN A REFERENCE POPULATION, HAS BEEN CONFIRMED THE DECISION THRESHOLD FOR CA DIAGNOSIS. 99TH PERCENTILE = 51.4 PG/ML NOTE: HIGH-SENSITIVITY TROPONIN ASSAY IS NOT INTENDED TO BE USED IN ISOLATION BUT SHOULD BE INTERPRETED IN CONJUNCTION WITH OTHER DIAGNOSTIC AND CLINICAL INFORMATION. Performing Lab: see note ML - [facility] LB SARS-CoV-2 Ag* Reviewed date:10/31/2024 08:21:23 PM Interpretation: Performing Lab: Notes/Report: [facility] , SARS-CoV-2 Ag NEGATIVE NEGATIVE This test has not been FDA cleared or approved, but has been authorized by the FDA under an Emergency Use Authorization (EUA) for use by authorized laboratories certified under CLIA that meet the requirements to perform moderate or high complexity testing. This test has been authorized only for the detection of proteins from SARS-CoV-2, not for any other viruses or pathogens. The emergency use of this test is authorized for the duration of the declaration that circumstances exist justifying the authorization of emergency use of in vitro diagnostic tests for detection and/or diagnosis of Covid-19 under section 564(b)(1) of the Act, 21 U.S.C. 360bbb-3(b)(1), unless the declaration is terminated or authorization is revoked sooner. Performing Lab: see note ML - [facility] LB LACTATE or LACTIC ACID Reviewed date:10/31/2024 08:21:23 PM Interpretation: Performing Lab: Notes/Report: [facility] , Lactate/Lactic Acid 1.7 0.4-2.0 mmol/L Performing Lab: see note - [facility] LB Troponin I High Sensitivity Reviewed date:10/31/2024 08:21:23 PM Interpretation: Performing Lab: Notes/Report: [facility] , Troponin I High Sensitivity 8.6 4.0-51.3 pg/mL CUT-OFF POINTS HAVE BEEN ESTABLISHED BASED ON THE FOURTH UNIVERSAL DEFINITION OF MYOCARDIAL INFARCTION. THE UPPER REFERENCE LIMIT (URL) OF TROPONIN, DEFINED THE 99TH PERCENTILE OF cTnI DISTRIBUTION IN A REFERENCE POPULATION, HAS BEEN CONFIRMED THE DECISION THRESHOLD FOR CA DIAGNOSIS. 99TH PERCENTILE = 51.4 PG/ML NOTE: HIGH-SENSITIVITY TROPONIN ASSAY IS NOT INTENDED TO BE USED IN ISOLATION BUT SHOULD BE INTERPRETED IN CONJUNCTION WITH OTHER DIAGNOSTIC AND CLINICAL INFORMATION. Performing Lab: see note - [facility] LB CBC AUTO DIFF Reviewed date:10/31/2024 08:21:23 PM Interpretation: Performing Lab: Notes/Report: [facility] , White Blood Count 14.0 4.0-11.0 10 3/uL Red Blood Count 3.14 4.20-5.40 10 6/uL Hemoglobin 9.2 12.0-16.0 g/dL Hematocrit 28.4 36.0-48.0 % Mean Corpuscular Volume 90.4 81.0-99.0 fL Mean Corpuscular Hemoglobin 29.3 26.7-34.0 pg Mean Corpuscular HGB Conc 32.4 29.9-35.2 g/dL Red Cell Distribution Width 17.6 11.0-15.0 % Platelet Count 398 150-450 10 3/uL Mean Platelet Volume 10.1 9.5-13.5 fL Neutrophils Percent Auto 71.2 43.0-75.0 % Lymphocytes Percent Auto 18.6 20.5-60.0 % Monocytes Percent Auto 7.6 1.7-12.0 % Eosinophils Percent Auto 1.4 0.9-7.0 % Basophils Percent Auto 0.4 0.2-2.0 % Immature Granulocytes Pct Auto 0.8 0.0-0.5 % Neutrophils Absolute Auto 10.0 1.4-6.5 10 3/uL Lymphocytes Absolute Auto 2.6 1.2-3.8 10 3/uL Monocytes Absolute Auto 1.1 0.3-0.8 10 3/uL Eosinophils Absolute Auto 0.2 0.0-0.7 10 3/uL Basophils Absolute Auto 0.1 0.0-0.1 10 3/uL Immature Granulocytes Abs Auto 0.11 0.00-0.03 10 3/uL Performing Lab: see note ML - [facility] LB PROF 14(COMP METB) Reviewed date:10/31/2024 08:21:23 PM Interpretation: Performing Lab: Notes/Report: [facility] , Sodium 136 136-145 mmol/L Potassium 4.0 3.5-5.1 mmol/L Chloride 104 98-107 mmol/L Carbon Dioxide 23.4 21.0-32.0 mmol/L Anion Gap 12.6 Glucose 87 74-106 mg/dL Blood Urea Nitrogen 7.0 7.0-18.0 mg/dL Creatinine 0.64 0.55-1.02 mg/dL Estimated GFR ( Charlotte >60 >=60 mL/min/1.73m 2 Estimated GFR (Non- Shanice >60 >=60 mL/min/1.73m 2 BUN Creatinine Ratio 10.9 Calcium 8.3 8.5-10.1 mg/dL Bilirubin Total 0.8 0.2-1.0 mg/dL Aspartate Amino Transferase 29 15-37 U/L Alanine Aminotransferase 26 14-59 U/L Alkaline Phosphatase 55 46-116 U/L Total Protein 5.9 6.4-8.2 g/dL Albumin Level 2.3 3.4-5.0 g/dL Globulin 3.6 Albumin Globulin Ratio 0.6 Performing Lab: see note - [facility] Prothrombin Time INR Reviewed date:10/31/2024 08:21:23 PM Interpretation: Performing Lab: Notes/Report: [facility] , Prothrombin Time 25.0 9.0-11.6 sec INR 2.59 DESIRED INR: 2.0-3.0 CONDITIONS NOT LISTED BELOW 2.5-3.5 FOR PROSTHETIC HEART VALVE REPLACEMENT 2.5-3.5 RECURRENT THROMBOSIS Performing Lab: see note - [facility] CBC AUTO DIFF Reviewed date:11/02/2024 03:17:53 PM Interpretation: Performing Lab: Notes/Report: [facility] , White Blood Count 20.8 4.0-11.0 10 3/uL Red Blood Count 2.95 4.20-5.40 10 6/uL Hemoglobin 8.8 12.0-16.0 g/dL Hematocrit 27.1 36.0-48.0 % Mean Corpuscular Volume 91.9 81.0-99.0 fL Mean Corpuscular Hemoglobin 29.8 26.7-34.0 pg Mean Corpuscular HGB Conc 32.5 29.9-35.2 g/dL Red Cell Distribution Width 18.0 11.0-15.0 % Platelet Count 454 150-450 10 3/uL Mean Platelet Volume 10.3 9.5-13.5 fL Neutrophils Percent Auto 90.9 43.0-75.0 % Lymphocytes Percent Auto 6.5 20.5-60.0 % Monocytes Percent Auto 1.9 1.7-12.0 % Eosinophils Percent Auto 0.0 0.9-7.0 % Basophils Percent Auto 0.1 0.2-2.0 % Immature Granulocytes Pct Auto 0.6 0.0-0.5 % Neutrophils Absolute Auto 18.9 1.4-6.5 10 3/uL Lymphocytes Absolute Auto 1.4 1.2-3.8 10 3/uL Monocytes Absolute Auto 0.4 0.3-0.8 10 3/uL Eosinophils Absolute Auto 0.0 0.0-0.7 10 3/uL Basophils Absolute Auto 0.0 0.0-0.1 10 3/uL Immature Granulocytes Abs Auto 0.13 0.00-0.03 10 3/uL Performing Lab: see note ML - [facility] LB MAGNESIUM Reviewed date:11/02/2024 03:17:53 PM Interpretation: Performing Lab: Notes/Report: [facility] , Magnesium 2.0 1.8-2.4 mg/dL Performing Lab: see note ML - [facility] LB PROF 14(COMP METB) Reviewed date:11/02/2024 03:17:53 PM Interpretation: Performing Lab: Notes/Report: [facility] , Sodium 139 136-145 mmol/L Potassium 4.0 3.5-5.1 mmol/L Chloride 106 98-107 mmol/L Carbon Dioxide 25.4 21.0-32.0 mmol/L Anion Gap 11.6 Glucose 132 74-106 mg/dL Blood Urea Nitrogen 10.0 7.0-18.0 mg/dL Creatinine 0.75 0.55-1.02 mg/dL Estimated GFR ( Charlotte >60 >=60 mL/min/1.73m 2 Estimated GFR (Non- Shanice >60 >=60 mL/min/1.73m 2 BUN Creatinine Ratio 13.3 Calcium 9.0 8.5-10.1 mg/dL Bilirubin Total 0.4 0.2-1.0 mg/dL Aspartate Amino Transferase 23 15-37 U/L Alanine Aminotransferase 25 14-59 U/L Alkaline Phosphatase 50 46-116 U/L Total Protein 6.2 6.4-8.2 g/dL Albumin Level 2.4 3.4-5.0 g/dL Globulin 3.8 Albumin Globulin Ratio 0.6 Performing Lab: see note - [facility] LB Prothrombin Time INR Reviewed date:11/02/2024 03:17:53 PM Interpretation: Performing Lab: Notes/Report: [facility] , Prothrombin Time 12.9 9.0-11.6 sec INR 1.24 DESIRED INR: 2.0-3.0 CONDITIONS NOT LISTED BELOW 2.5-3.5 FOR PROSTHETIC HEART VALVE REPLACEMENT 2.5-3.5 RECURRENT THROMBOSIS Performing Lab: see note - [facility] LB XR chest 2V Reviewed date:11/02/2024 03:17:53 PM Interpretation: Performing Lab: Notes/Report: Source Facility: [place] [address] XRay Report Signed Patient: KING MORENO MR#: [id number] : 1960 Acct:[id number] Age/Sex: 63 / F ADM Date: 10/30/24 Loc: [place] 203-[address]: Parmjit Snowden M.D. Ordering Physician: Parmjit Snowden M.D. Date of Service: 11/01/24 Procedure(s): XR chest 2V Accession Number(s): [id number] cc: Conchita Aden M.D.; Parmjit Snowden M.D. [place] [address] Patient Name: KING MORENO MRN: [facility]:[id number] date: 1960 Sex: F Assigned Patient Location: [place] Current Patient Location: [place] Accession/Order Number: [id number] Exam Date: 11/01/2024 09:30 Report Date: 11/01/2024 10:00 At the request of: PARMJIT SNOWDEN Procedure: XR chest 2V EXAMINATION: XR chest 2V HISTORY: pneumonia follow up COMPARISON: 10/29/2024 TECHNIQUE: PA and lateral FINDINGS: LUNGS: No significant pulmonary parenchymal abnormalities. VASCULATURE: No increased pulmonary vasculature. PLEURA: No pneumothorax, effusion, or pleural thickening. CARDIAC: No cardiomegaly or cardiac silhouette abnormality. MEDIASTINUM: No visible mass or adenopathy. Right bipolar pacemaker BONES: No fracture or visible bone lesion. OTHER: Negative. XR/XR chest 2V IMPRESSION: No acute cardiopulmonary process Electronically authenticated by: DANI GUILLERMO Date: 11/01/2024 10:00 Dictated By: Dani Guillermo M.D. Signed By: 11/01/24 1002 DD/ 1000 TD/TT: Paper Processing Machine Helper: [place] [address] XRay Report Signed Patient: NANETTE MORENO MR#: [id number] : 1960 Acct:[id number] Age/Sex: 63 / F ADM Date: 10/30/24 Loc: MS 203-[address]: Fredi Snowden M.D. Ordering Physician: Parmjit Snowden M.D. Date of Service: 11/01/24 Procedure(s): XR [address] 2V Accession Number(s): [id number] cc: Conchita Aden M.D.; Parmjit Snowden M.D. The [address] [address] Patient Name: KING MORENO MRN: [id number] date: 1960 Sex: F Assigned Patient Location: MS Current Patient Location: MS Accession/Order Numb er: [id number] Exam Date: 09:30 Report Date: 11/01/2024 10:00 At the request of: PARMJIT HOY Procedure: XR chest 2V EXAMINATION: XR ches t 2V HISTORY: pneumonia follow up COMPARISON: 10/29/2024 TECHNIQUE: PA and lateral FINDINGS: LUNGS: No significan t pulmonary parenchymal abnormalities. VASCULATURE: No increased pulmonary vasculature. PLEURA: No pneumothorax, effusion, or pleural thickening. CARDIAC: No cardiomegaly or cardiac silhouette abnormality. MEDIASTINUM: No visi ble mass or adenopathy. Right bipolar pacemaker BONES: No fracture o r visible bone lesion. OTHER: Negative. XR/XR chest 2V IMPRESSION: No acute cardiopulmonary process Electronically authenticated by: DANI GUILLERMO Date: 11/01/2024 10:00 Dictated By: Jack Guillermo M.D. Signed By: 11/01/24 1002 DD/ 1000 TD/TT: Paper Processing Machine Helper: Prothrombin Time INR Reviewed date:11/02/2024 03:17:53 PM Interpretation: Performing Lab: Notes/Report: [facility] , Prothrombin Time 11.9 9.0-11.6 sec INR 1.14 DESIRED INR: 2.0-3.0 CONDITIONS NOT LISTED BELOW 2.5-3.5 FOR PROSTHETIC HEART VALVE REPLACEMENT 2.5-3.5 RECURRENT THROMBOSIS Performing Lab: see note ML - [facility] LB PROF 14(COMP METB) Reviewed date:11/02/2024 03:17:53 PM Interpretation: Performing Lab: Notes/Report: [facility] , Sodium 135 136-145 mmol/L Potassium 3.6 3.5-5.1 mmol/L Chloride 101 98-107 mmol/L Carbon Dioxide 23.3 21.0-32.0 mmol/L Anion Gap 14.3 Glucose 98 74-106 mg/dL Blood Urea Nitrogen 5.0 7.0-18.0 mg/dL Creatinine 0.78 0.55-1.02 mg/dL Estimated GFR ( Charlotte >60 >=60 mL/min/1.73m 2 Estimated GFR (Non- Shanice >60 >=60 mL/min/1.73m 2 BUN Creatinine Ratio 6.4 Calcium 8.5 8.5-10.1 mg/dL Bilirubin Total 0.7 0.2-1.0 mg/dL Aspartate Amino Transferase 24 15-37 U/L Alanine Aminotransferase 24 14-59 U/L Alkaline Phosphatase 51 46-116 U/L Total Protein 5.9 6.4-8.2 g/dL Albumin Level 2.4 3.4-5.0 g/dL Globulin 3.5 Albumin Globulin Ratio 0.7 Performing Lab: see note ML - [facility] LB CBC AUTO DIFF Reviewed date:11/02/2024 03:17:53 PM Interpretation: Performing Lab: Notes/Report: [facility] , White Blood Count 16.1 4.0-11.0 10 3/uL Red Blood Count 2.90 4.20-5.40 10 6/uL Hemoglobin 8.7 12.0-16.0 g/dL Hematocrit 26.5 36.0-48.0 % Mean Corpuscular Volume 91.4 81.0-99.0 fL Mean Corpuscular Hemoglobin 30.0 26.7-34.0 pg Mean Corpuscular HGB Conc 32.8 29.9-35.2 g/dL Red Cell Distribution Width 18.0 11.0-15.0 % Platelet Count 343 150-450 10 3/uL Mean Platelet Volume 10.0 9.5-13.5 fL Neutrophils Percent Auto 72.8 43.0-75.0 % Lymphocytes Percent Auto 17.7 20.5-60.0 % Monocytes Percent Auto 7.5 1.7-12.0 % Eosinophils Percent Auto 0.9 0.9-7.0 % Basophils Percent Auto 0.4 0.2-2.0 % Immature Granulocytes Pct Auto 0.7 0.0-0.5 % Neutrophils Absolute Auto 11.7 1.4-6.5 10 3/uL Lymphocytes Absolute Auto 2.9 1.2-3.8 10 3/uL Monocytes Absolute Auto 1.2 0.3-0.8 10 3/uL Eosinophils Absolute Auto 0.2 0.0-0.7 10 3/uL Basophils Absolute Auto 0.1 0.0-0.1 10 3/uL Immature Granulocytes Abs Auto 0.11 0.00-0.03 10 3/uL Performing Lab: see note ML - [facility] LB BNP Reviewed date:11/02/2024 03:17:53 PM Interpretation: Performing Lab: Notes/Report: [facility] , NT Pro B Type Natriuretic Pept 398.0 <=900.0 pg/mL Performing Lab: see note ML - [facility] LB Reason For Referral No Information Problems Problem Type SNOMED Code ICD Code Onset Dates Problem Status W/U Status Risk Notes Problem Essential hypertension (51937633) Benign essential HTN (I10) Active confirmed Problem Bipolar 1 disorder (565754743) Bipolar 1 disorder (F31.9) Active confirmed Problem Diabetes mellitus (25822559) Diabetes mellitus (E11.9) Active confirmed Plan Of Treatment No Information Insurance Providers Payer Name Payer Address Payer Phone Subscriber Number Group Number Insured Name Patient Relationship to Insured Coverage Start Date Coverage End Date [employer] MEDICARE [address] [place] [address] [id number] King Moreno Self - patient is the insured 3 MEDICAID [place] 2ND INS [address] [facility] [address] [address] [place], [place] [id number] King Moreno Self - patient is the insured
[2025-03-24 23:34] VITALS: BP 108/60; PULSE 85; TEMP 36.6; O2SAT 98; BMI 27.0
[2025-03-24 23:39] VITALS: O2SAT 98
[2025-03-25 01:14] LABS: Basophils Absolute Auto 0.1 10^3/uL (0.0-0.1); Basophils Percent Auto 0.8 % (0.2-2.0); Eosinophils Absolute Auto 0.2 10^3/uL (0.0-0.7); Eosinophils Percent Auto 2.3 % (0.9-7.0); Hemoglobin 9.3 g/dL (12.0-16.0); Immature Granulocytes Abs Auto 0.03 10^3/uL (0.00-0.03); Immature Granulocytes Pct Auto 0.3 % (0.0-0.5); Lymphocytes Absolute Auto 3.4 10^3/uL (1.2-3.8); Lymphocytes Percent Auto 35.9 % (20.5-60.0); Mean Corpuscular HGB Conc 32.1 g/dL (29.9-35.2); Mean Corpuscular Hemoglobin 23.3 pg (26.7-34.0); Mean Corpuscular Volume 72.7 fL (81.0-99.0); Mean Platelet Volume 10.6 fL (9.5-13.5); Monocytes Absolute Auto 0.6 10^3/uL (0.3-0.8); Monocytes Percent Auto 6.6 % (1.7-12.0); Neutrophils Absolute Auto 5.1 10^3/uL (1.4-6.5); Neutrophils Percent Auto 54.1 % (43.0-75.0); Platelet Count 464 10^3/uL (150-450); Red Blood Count 3.99 10^6/uL (4.20-5.40); Red Cell Distribution Width 20.7 % (11.0-15.0); White Blood Count 9.5 10^3/uL (4.0-11.0)
[2025-03-25 01:19] LABS: Anion Gap 13.5; BUN Creatinine Ratio 11.1; Calcium 8.8 mg/dL (8.5-10.1); Carbon Dioxide 24.5 mmol/L (21.0-32.0); Chloride 102 mmol/L (98-107); Estimated GFR (African America >60 (>=60 mL/min/1.73m^2); Estimated GFR (Non-African Ame >60 (>=60 mL/min/1.73m^2); Glucose 144 mg/dL (74-106); Magnesium 1.8 mg/dL (1.8-2.4); Sodium 136 mmol/L (136-145)
--- NOTE | 2025-03-25 01:31 | ED.EXTPRO1 ---
HPI - Extremity Problem General Chief complaint: Extremity Problem, Nontraumatic Stated complaint: RIGHT LEG IS JERKING Time Seen by Provider: 03/25/25 00:06 Source: patient Mode of arrival: walk-in Limitations: no limitations History of Present Illness HPI Narrative: cc - my legs are jerking Pt told us that about one hour ago she started having uncontrollable jerking of both legs. It is intermittent. Not painful. Involves different parts of the legs like a big twitch . She has restless legs but this is different . No other symptoms. No recent illness or change in meds. no back pain. No hip or groin pain. She has baclofen at home but did not take any today. Related Data Home Medications ?Medication ?Instructions ?Recorded ?Confirmed amiodarone 200 mg tablet 200 mg PO Q24H 10/22/24 03/24/25 lansoprazole 30 mg capsule,delayed 30 mg PO .ACB 10/22/24 03/24/25 release meclizine 25 mg tablet 25 mg PO BID PRN dizziness 10/22/24 03/24/25 melatonin 5 mg tablet 5 mg PO DAILY 10/22/24 03/24/25 metoprolol succinate 25 mg 25 mg PO DAILY 10/22/24 03/24/25 tablet,extended release 24 hr mexiletine 150 mg capsule 150 mg PO Q8H 10/22/24 03/24/25 oxybutynin chloride 10 mg 10 mg PO DAILY 10/22/24 03/24/25 tablet,extended release 24 hr ranolazine 500 mg tablet,extended 500 mg PO Q12H 10/22/24 03/24/25 release,12 hr rosuvastatin 10 mg tablet 10 mg PO DAILY 10/22/24 03/24/25 magnesium 200 mg tablet 200 mg PO BID 10/30/24 03/24/25 lisinopril 5 mg tablet 5 mg PO .QD 10/31/24 03/24/25 quetiapine 100 mg tablet 100 mg PO .QHS 10/31/24 03/24/25 baclofen 10 mg tablet 10 mg PO TID PRN muscle spasm 02/01/25 03/24/25 Allergies Allergy/AdvReac Type Severity Reaction Status Date / Time No Known Drug Allergies Allergy Verified 03/11/25 16:43 PFSH PFS Medical History Pacemaker ?Z95.0 - Presence of cardiac pacemaker (ICD-10) Acute GI bleeding ?K92.2 - Gastrointestinal hemorrhage, unspecified (ICD-10) Elevated INR ?R79.1 - Abnormal coagulation profile (ICD-10) Pneumonia ?J18.9 - Pneumonia, unspecified organism (ICD-10) Dyspnea ?R06.00 - Dyspnea, unspecified (ICD-10) Dizziness ?R42 - Dizziness and giddiness (ICD-10) Diabetes ?E11.9 - Type 2 diabetes mellitus without complications (ICD-10) Bipolar 1 disorder, depressed ?F31.9 - Bipolar disorder, unspecified (ICD-10) HTN (hypertension) ?I10 - Essential (primary) hypertension (ICD-10) High cholesterol ?E78.00 - Pure hypercholesterolemia, unspecified (ICD-10) Afib ?I48.91 - Unspecified atrial fibrillation (ICD-10) Surgical History H/O tubal ligation ?Z98.51 - Tubal ligation status (ICD-10) Hx of cholecystectomy ?Z90.49 - Acquired absence of other specified parts of digestive tract (ICD-10) Status post other internal cardiac defibrillator procedure ?Z95.0 - Presence of cardiac pacemaker (ICD-10) History of bowel resection ?Z90.49 - Acquired absence of other specified parts of digestive tract (ICD-10) Family History Father Heart attack Brother Heart attack Sister Heart attack Diabetes Son Diabetes Social History Within the past year, how often did you have a drink containing alcohol: never Within the past year, how often did you have six or more drinks on one occasion: never Score interpretation: A score less than 3 is consistent with normal alcohol consumption. 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 afebrile General: Well-appearing and in no apparent distress. Skin: Warm, dry, no pallor noted. No rash. Cardiovascular: Regular Rate and Rhythm without murmur, gallop or rub. Respiratory: No accessory muscle use or respiratory distress. Lungs are clear to auscultation, no wheezing, rales or rhonchi Back: No midline lumbar vertebral tenderness. No CVA tenderness Musculoskeletal: normal ROM, no calf or popliteal tenderness, no lower extremity edema/swelling. Normal range of motion and expected strength. GI: Abdomen is soft, non-distended. Normal bowel sounds. No tenderness to palpation. No rebound, guarding, or rigidity noted. Neurological: A&O x4. No cranial nerve dysfunction observed. No truncal ataxia. Moves all extremities. Sensation intact. Only once during the interview and exam to witness any of this jerking motion -it resembled a twitch Psychiatric: Cooperative and interactive. Normal mood and affect. Constitutional Vital Signs, click to edit/add: Last Vital Signs Temp 97.9 F 03/24/25 23:34 Pulse 85 03/24/25 23:34 Resp 18 03/24/25 23:34 BP 108/60 03/24/25 23:34 Pulse Ox 98 03/24/25 23:39 O2 Del Method Room Air 03/24/25 23:39 Course Vital Signs Vital signs: Vital Signs Temperature 97.9 F 03/24/25 23:34 Pulse Rate 85 03/24/25 23:34 Respiratory Rate 18 03/24/25 23:34 Blood Pressure 108/60 03/24/25 23:34 Pulse Oximetry 98 03/24/25 23:34 Oxygen Delivery Method Room Air 03/24/25 23:34 Temperature 97.9 F 03/24/25 23:34 Pulse Rate 85 03/24/25 23:34 Respiratory Rate 18 03/24/25 23:34 Blood Pressure 108/60 03/24/25 23:34 Pulse Oximetry 98 03/24/25 23:39 Oxygen Delivery Method Room Air 03/24/25 23:39 MDM - Extremity (Nontraumatic) MDM Narrative Medical decision making narrative: Blood drawn and sent for testing. Blood work was negative. Exam unremarkable. Patient was informed of results and she was discharged home with recommendation to take her baclofen and see her primary care physician for follow-up. Lab Data Labs: Lab Results 03/25/25 Range/Units 00:36 WBC 9.5 (4.0-11.0) 10^3/uL RBC 3.99 L (4.20-5.40) 10^6/uL Hgb 9.3 L (12.0-16.0) g/dL Hct 29.0 L (36.0-48.0) % MCV 72.7 L (81.0-99.0) fL MCH 23.3 L (26.7-34.0) pg MCHC 32.1 (29.9-35.2) g/dL RDW 20.7 H (11.0-15.0) % Plt Count 464 H (150-450) 10^3/uL MPV 10.6 (9.5-13.5) fL Neut % (Auto) 54.1 (43.0-75.0) % Lymph % (Auto) 35.9 (20.5-60.0) % Whitman % (Auto) 6.6 (1.7-12.0) % Eos % (Auto) 2.3 (0.9-7.0) % Baso % (Auto) 0.8 (0.2-2.0) % Neut # (Auto) 5.1 (1.4-6.5) 10^3/uL Lymph # (Auto) 3.4 (1.2-3.8) 10^3/uL Whitman # (Auto) 0.6 (0.3-0.8) 10^3/uL Eos # (Auto) 0.2 (0.0-0.7) 10^3/uL Baso # (Auto) 0.1 (0.0-0.1) 10^3/uL Abs Immat Gran (auto) 0.03 (0.00-0.03) 10^3/uL Imm/Tot Granulo (auto) 0.3 (0.0-0.5) % Sodium 136 (136-145) mmol/L Potassium 4.0 (3.5-5.1) mmol/L Chloride 102 (98-107) mmol/L Carbon Dioxide 24.5 (21.0-32.0) mmol/L Anion Gap 13.5 BUN 7.0 (7.0-18.0) mg/dL Creatinine 0.63 (0.55-1.02) mg/dL Est GFR ( Amer) >60 (>=60 mL/min/1.73m^2) Est GFR (Non-Af Amer) >60 (>=60 mL/min/1.73m^2) BUN/Creatinine Ratio 11.1 Glucose 144 H (74-106) mg/dL Calcium 8.8 (8.5-10.1) mg/dL Magnesium 1.8 (1.8-2.4) mg/dL Discharge Plan Discharge Chief Complaint: Extremity Problem, Nontraumatic Clinical Impression: Benign fasciculations Patient Disposition: Home, Self-Care Time of Disposition Decision: 01:35 Prescriptions / Home Meds: No Action baclofen 10 mg tablet 10 mg PO TID PRN (Reason: muscle spasm) amiodarone 200 mg tablet 200 mg PO Q24H lansoprazole 30 mg capsule,delayed release(DR/EC) 30 mg PO .ACB meclizine 25 mg tablet 25 mg PO BID PRN (Reason: dizziness) melatonin 5 mg tablet 5 mg PO DAILY metoprolol succinate 25 mg tablet extended release 24 hr 25 mg PO DAILY mexiletine 150 mg capsule 150 mg PO Q8H oxybutynin chloride 10 mg tablet extended release 24hr 10 mg PO DAILY ranolazine 500 mg tablet extended release 12 hr 500 mg PO Q12H rosuvastatin 10 mg tablet 10 mg PO DAILY magnesium 200 mg tablet 200 mg PO BID quetiapine 100 mg tablet 100 mg PO .QHS lisinopril 5 mg tablet 5 mg PO .QD Print Language: Italian Instructions: Muscle Spasm (ED) Referrals: JOVANI HANSON [Primary Care Provider, Unknown] - 1 week
== END 2025-03-25 01:40 | disposition home or self-care (01) ==
PROVIDERS: Emergency Provider Emergency Medicine; PCP Nurse Practitioner Family
DX: R25.3 Fasciculation (principal)
CPT/HCPCS: 36415; 80048; 83735; 85025; 99283

== ENCOUNTER 2025-03-25 07:04 | Emergency (ER) | payer MEDICARE, MEDICAID, SELFPAY ==
--- OUTSIDE RECORDS SUMMARY | 2023-05-28 09:36 | XMS_ITS | Continuity of Care Document ---
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 Phone Paolo Olivo Unavailable Unavailable [...] Limited Oral Eval Intraoral-periapical 1st Film 4 [id number] Additional Jan [facility] FP MEDICAID Condoms FLU VACCINE, 3 YRS & >, IM NEW FP MEDICAID URINALYSIS, NONAUTO W/SCOPE SPECIMEN HANDLING FLU VACCINE, 3 YRS & >, IM Advance Directives Directive Yes / No Effective Date File Name No Information Encounters Encounter Description Practice Location Reason(s) For Visit Diagnoses Date Provider Providers Copied on Encounter [facility], [address] [place] [address], [id number] , [place] tel:[phone] [facility] No Information 3 Visci DO Paolo. [address] [place] [address], [id number], [place]. tel:[phone] OFFICE/OUTPA TIENT VISIT, EST [facility], [address] [place] [address], [id number] , tel:[phone] [facility] med refills (chief complaint) Body mass index [BMI] 36.0-36.9, adultCOPD w/ acute exacerbationLow back pain, unspecified 1 [facility] DO Max. [address], [place], [id number], [place]. tel:[phone] [facility], [address], [place], [id number] , [place] tel:[phone] [facility] lab draw (chief complaint) Chronic obstructive pulmonary disease, unspecified 1 [facility] DO Max. [address], [place], [id number], [place]. tel:[phone] OFFICE/OUTPA TIENT VISIT, [facility], [address] [place] [address], [id number] , [place] tel: [phone] [facility] Med Refills (chief complaint)fa tigue (chief complaint) Body mass index [BMI] 36.0-36.9, adultAnxiety disorder, unspecifiedChron ic obstructive pulmonary disease, unspecifiedCOPD w/ acute exacerbationIron deficiency anemia due to chronic blood lossType 2 diabetes mellitus without complications 1 [facility] DO Max. [address] [place] [address], [id number], [place]. tel:[phone] OFFICE/OUTPA TIENT VISIT, [facility], [address] [place] [address], [id number] , [place] tel:[phone] [facility] med refill (chief complaint) Body mass index [BMI] 36.0-36.9, adultCarpal tunnel syndrome, leftCervicalgiaM yash problem Sep- 1 [facility] DO Max. [address] [place] [address], [id number], [place]. tel:[phone] OFFICE/OUTPA TIENT VISIT, [facility], [address] [place] [address], [id number] , [place] tel:[phone] [facility] A1C & Med Refills (chief complaint)di abetes (chief complaint) Body mass index [BMI] 36.0-36.9, adultType 2 diabetes mellitus with hyperglycemiaAnx iety disorder, unspecifiedCervi calgia 1 [facility] Max. [address], [place], [id number], [place]. tel:[phone] OFFICE/OUTPA TIENT VISIT, [facility], [address], [place], [id number] , [place] tel: [phone] [facility] Med Refills (chief complaint)Mu sculoskeleta l pain (chief complaint) Anxiety disorder, unspecifiedCervi calgiaUnspecifie d sprain of left wrist, initial encounterBody mass index [BMI] 36.0-36.9, adult 1 [facility]. [address] [place] [address], [id number], [place]. tel:[phone] OFFICE/OUTPA TIENT VISIT, [facility], [address] [place] [address], [id number] , [place] tel: [phone] [facility] med refill (chief complaint)fa tigue (chief complaint) Body mass index [BMI] 36.0-36.9, adultType 2 diabetes mellitus with other circulatory complicationsAnx iety disorder, unspecified 1 [facility]. [address] [place] [address], [id number], [place]. tel:[phone] OFFICE/OUTPA TIENT VISIT, [facility], [address], [place], [id number] , [place] tel: [phone] [facility] med refill (chief complaint)Me curt loss (chief complaint) Type 2 diabetes mellitus with other circulatory complicationsBod y mass index [BMI] 35.0-35.9, adultAnxiety disorder, unspecifiedUrina ry frequencyMemory problem 1 [facility] Max. [address] [place] [address], [id number], [place]. tel:[phone] OFFICE/OUTPA TIENT VISIT, [facility], [address] [place] [address], [id number] , [place] tel: [phone] [facility] med Refills (chief complaint)fa tigue (chief complaint) Body mass index [BMI] 35.0-35.9, adultAnemia, unspecified typeEssential (primary) hypertensionIron deficiency anemia due to chronic blood loss 0 1 [facility] DO Max. [address] [place] [address], [id number], [place]. tel:[phone] OFFICE/OUTPA TIENT VISIT, [facility], [address] [place] [address], [id number] , [place] tel: [phone] [facility] med refill (chief complaint)Co ugh (chief complaint) Chronic obstructive pulmonary disease, unspecifiedAnxie ty disorder, unspecifiedOther cervical disc degeneration, unspecified cervical region 0 1 [facility] DO Max. [address] [place] [address], [id number], [place]. tel:[phone] OFFICE/OUTPA TIENT VISIT, [facility], [address] [place] [address], [id number] , [place] tel: [phone] [facility] A1C (chief complaint)di abetes (chief complaint) Type 2 diabetes mellitus with other circulatory complicationsAnx iety disorder, unspecifiedLumba r back pain 0 1 [facility] DO Max. [address] [place] [address], [id number], [place]. tel:[phone] OFFICE/OUTPA TIENT VISIT, [facility], [address] [place] [address], [id number] , [place] tel: [phone] [facility] Med Refills (chief complaint)GE RD (chief complaint) Body mass index [BMI] 34.0-34.9, adultChronic pulmonary embolismGastroin testinal hemorrhage associated with gastric ulcerType 2 diabetes mellitus with hyperglycemiaOth er cervical disc degeneration, unspecified cervical region 1 [facility] DO Max. [address] [place] [address], [id number], [place]. tel:[phone] OFFICE/OUTPA TIENT VISIT, [facility], [address], [place], [id number] , [place] tel: [phone] [facility] med refill (chief complaint) Carpal tunnel syndrome of right wristAnxiety disorder, unspecifiedCervi calgia 3 0-202 0 [facility] DO Max. [address], [place], [id number], [place]. tel:[phone] OFFICE/OUTPA TIENT VISIT, [facility], [address], [place], [id number] , [place] tel: [phone] [facility] Med Refills (chief complaint)ba ck pain (chief complaint) Body mass index [BMI] 32.0-32.9, adultOther cervical disc degeneration, unspecified cervical regionAnxiety disorder, unspecifiedCOPD w/ acute exacerbation 2- 0 [facility] DO Max. [address] [place] [address], [id number], [place]. tel:[phone] OFFICE/OUTPA TIENT VISIT, [facility], [address] [place] [address], [id number] , [place] tel: [phone] [facility] A1C & Med Refills (chief complaint)di abetes (chief complaint) Body mass index [BMI] 32.0-32.9, adultType 2 diabetes mellitus without complicationsAnx iety disorder, unspecifiedOther cervical disc degeneration, unspecified cervical region 4 0 [facility] DO Max. [address] [place] [address], [id number], [place]. tel:[phone] OFFICE/OUTPA TIENT VISIT, [facility], [address] [place] [address], [id number] , [place] tel: [phone] [facility] Med Refills (chief complaint) Body mass index [BMI] 32.0-32.9, adultAnxiety disorder, unspecifiedFolli culitisCervicalg ia Aug- 7-202 0 [facility] DO Max. [address] [place] [address], [id number], [place]. tel:[phone] OFFICE/OUTPA TIENT VISIT, [facility], [address] [place] [address], [id number] , [place] tel: [phone] [facility] f/u hospital (chief complaint)fa tigue (chief complaint) Gastrointestinal hemorrhage associated with gastric ulcerIron deficiency anemia due to chronic blood lossAnxiety disorder, unspecified Jul- 0 [facility] DO Max. [address] [place] [address], [id number], [place]. tel:[phone] OFFICE/OUTPA TIENT VISIT, [facility], [address] [place] [address], [id number] , [place] tel: [phone] [facility] A1C & MED REFILLS (chief complaint)Di zziness (chief complaint)di abetes (chief complaint) Body mass index (BMI) 32.0-32.9, adultType 2 diabetes mellitus without complicationsDiz ziness of unknown cause 0 [facility] Max. [address] [place] [address], [id number], [place]. tel:[phone] OFFICE/OUTPA TIENT VISIT, [facility], [address] [place] [address], [id number] , [place] tel: [phone] [facility] Med Refills (chief complaint)GE RD (chief complaint) Anxiety disorder, unspecifiedDizzi ness of unknown causeGERD w/o esophagitis 0 [facility] DO Max. [address] [place] [address], [id number], [place]. tel:[phone] OFFICE/OUTPA TIENT VISIT, [facility], [address] [place] [address], [id number] , [place] tel: [phone] [facility] med refills (chief complaint)ba ck pain (chief complaint) Body mass index (BMI) 32.0-32.9, adultLumbar back painType 2 diabetes mellitus without complicationsDiz ziness of unknown causeAnxiety disorder, unspecified 0 [facility] DO Max. [address], [place], [id number], [place]. tel:[phone] OFFICE/OUTPA TIENT VISIT, [facility], [address], [place], [id number] , [place] tel: [phone] [facility] A1C & Med refills (chief complaint)An xiety (chief complaint) Body mass index (BMI) 32.0-32.9, adultType 2 diabetes mellitus without complicationsAnx iety disorder, unspecifiedOther cervical disc degeneration, unspecified cervical regionFolliculit isEssential (primary) hypertension 0 [facility] DO Max. [address], [place], [id number], [place]. [phone] OFFICE/OUTPA TIENT VISIT, [facility], [address] [place] [address], [id number] , [place] tel: [phone] [facility] Anxiety (chief complaint) Anxiety disorder, unspecified 0 [facility] DO Max. [address], [place], [id number], [place]. 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 [address], [place], [id number], [place]. tel:[phone] OFFICE/OUTPA TIENT VISIT, [facility], [address], [place], [id number] , [place] tel: [phone] [facility] finger infection (chief complaint)Ra sh (chief complaint) Body mass index (BMI) 32.0-32.9, adultHerpetic whitlowEssential (primary) hypertensionAnxi ety disorder, unspecifiedDizzi ness of unknown cause 0 [facility] DO Max. [address], [place], [id number], [place]. tel:[phone] OFFICE/OUTPA TIENT VISIT, [facility], [address], [place], [id number] , [place] tel: [phone] [facility] Med Refills & A1C (chief complaint)Ra sh (chief complaint) Type 2 diabetes mellitus without complicationsAnx iety disorder, unspecifiedChron ic obstructive pulmonary disease, unspecified 0 [facility] DO Max. [address] [place] [address], [id number], [place]. tel:[phone] [facility], [address] [place] [address], [id number] , [place] tel: [phone] [facility] RANDOM UDS/PILL COUNT (chief complaint) No Information 9 [facility] DO Max. [address] [place] [address], [id number], [place]. tel:[phone] OFFICE/OUTPA TIENT VISIT, [facility], [address] [place] [address], [id number] , [place] tel: [phone] [facility] Med refills (chief complaint)DR WHITLEY DANG (chief complaint) Body mass index (BMI) 32.0-32.9, adultAnxiety disorder, unspecifiedKidne y painDizziness of unknown cause 9 [facility] DO Max. [address] [place] [address], [id number], [place]. tel:[phone] OFFICE/OUTPA TIENT VISIT, [facility], [address] [place] [address], [id number] , [place] tel:[phone] [facility] 4 WEEK F/U (chief complaint)Di zziness (chief complaint) Body mass index (BMI) 31.0-31.9, adultDizziness of unknown causeLumbar back painType 2 diabetes mellitus with hyperglycemia 9 [facility]. [address] [place] [address], [id number], [place]. tel:[phone] OFFICE/OUTPA TIENT VISIT, [facility], [address] [place] [address], [id number] , [place] tel: [phone] [facility] Med refills & A1C (chief complaint)Di zziness (chief complaint) Body mass index (BMI) 31.0-31.9, adultDizziness of unknown causeAnxiety disorder, unspecifiedType 2 diabetes mellitus with hyperglycemia [address], [id number], [place]. tel:[phone] OFFICE/OUTPA TIENT VISIT, [facility], [address] [place] [address], [id number] , [place] tel: [phone] [facility] 6 WK F/U (chief complaint)DR IGNACIO SCREEN (chief complaint) Pain in leg, unspecifiedBody mass index (BMI) 31.0-31.9, adultAnxiety disorder, unspecifiedChron ic pulmonary embolism [address], [id number], [place]. tel:[phone] OFFICE/OUTPA TIENT VISIT, [facility], [address] [place] [address], [id number] , [place] tel: [phone] [facility] follow up (chief complaint)hy pertension (chief complaint)dr ignacio screen (chief complaint) Body mass index (BMI) 31.0-31.9, adultEncntr for general adult medical exam w/o abnormal findingsEssentia l (primary) hypertensionType 2 diabetes mellitus without complicationsAnx iety disorder, unspecified 9 [facility]. [address] [place] [address], [id number], [place]. tel:[phone] OFFICE/OUTPA TIENT VISIT, [facility], [address], [place], [id number] , [place] tel: [phone] [facility] F/U HOSPITAL ADMITION (chief complaint)DR WHITLEY DANG (chief complaint) Body mass index (BMI) 31.0-31.9, adultAnxiety disorder, unspecifiedGERD w/o esophagitisHerpe tic shashi 9 [facility]. [address] [place] [address], [id number], [place]. tel:[phone] OFFICE/OUTPA TIENT VISIT, [facility], [address], [place], [id number] , [place] tel: [phone] [facility] med refill (chief complaint) Body mass index (BMI) 31.0-31.9, adultAnxiety disorder, unspecifiedType 2 diabetes mellitus without complications 9 [facility]. [address] [place] [address], [id number], [place]. tel:[phone] [facility], [address] [place] [address], [id number] , [place] tel: [phone] [facility] med refills (chief complaint) Body mass index (BMI) 31.0-31.9, adultCellulitis and abscess of finger, unspecifiedCutan eous abscess of unspecified handBipolar disorder 9 [facility]. [address], [place], [id number], [place]. tel:[phone] [facility], [address] [place] [address], [id number] , [place] tel: [phone] [facility] Abnormal Mammogram 9 [facility]. [address] [place] [address], [id number], [place]. tel:[phone] [facility], [address] [place] [address], [id number] , [place] tel: [phone] [facility] Medication refills (chief complaint)A1 C (chief complaint) Body mass index (BMI) 31.0-31.9, adultType 2 diabetes mellitus without complicationsLum reinforcing bar setter pain Jan- 9 [facility]. [address], [place], [id number], [place]. tel:[phone] [facility], [address] [place] [address], [id number] , [place] tel: [phone] [facility] Abnormal Mammogram Jan- 9 [facility]. [address] [place] [address], [id number], [place]. tel:[phone] OFFICE/OUTPA TIENT VISIT, EST [facility], [address] [place] [address], [id number] , [place] tel: [phone] [facility] sickness (chief complaint) Body mass index (BMI) 31.0-31.9, adultAcute non-recurrent maxillary sinusitisCOPD w/ acute exacerbationAnxi ety disorder, unspecifiedOther cervical disc degeneration, unspecified cervical region Dec- 9 [facility]. [address], [place], [id number], [place]. tel:[phone] [facility], [address] [place] [address], [id number] , [place] tel: [phone] [facility] Abnormal MammogramUnspeci fied urinary incontinence 9 [facility]. [address] [place] [address], [id number], [place]. 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 [address], [place], [id number], [place]. tel:[phone] [facility], [address], [place], [id number] , [place] tel: [phone] [facility] f/u abdominal pain (chief complaint) Body mass index (BMI) 32.0-32.9, adultHx pulmonary embolismHernia of abdominal wallAnxiety disorder, unspecified 9 [facility] DO Max. [address], [place], [id number], [place]. tel:[phone] [facility], [address] [place] [address], [id number] , [place] tel: [phone] [facility] abdomen issues (chief complaint) Right lower quadrant abdominal painEncounter for screening for Ca of colon 9 Kamaljit Wilcox. [address] [place] [address], [id number], [place]. tel:[phone] OFFICE/OUTPA TIENT VISIT, EST [facility], [address], [place], [id number] , [place] tel: [phone] [facility] rib pain when breathing (chief complaint) Body mass index (BMI) 31.0-31.9, adultRib pain on right sideLumbar back painRight hip pain 9 Kamaljit Wilcox. [address] [place] [address], [id number], [place]. tel:[phone] [facility], [address] [place] [address], [id number] , [place] tel:[phone] [facility] med refill (chief complaint) Right hip painLumbar back painAnxiety disorder, unspecified 9 Kamaljit Wilcox. [address] [place] [address], [id number], [place]. tel:[phone] OFFICE/OUTPA TIENT VISIT, [facility], [address] [place] [address], [id number] , [place] tel: [phone] [facility] bladder infection (chief complaint) Oliguria 8 Shahzad Cobb. [address] [place] [address], [id number], [place]. tel:[phone] OFFICE/OUTPA TIENT VISIT, [facility], [address] [place] [address], [id number] , [place] tel: [phone] [facility] Medication refill (chief complaint) Anxiety disorder, unspecifiedBipol ar disorderVertigo 8 [facility] Cobb. [address] [place] [address], [id number], [place]. tel:[phone] [facility], [address] [place] [address], [id number] , [place] tel: [phone] [facility] medication refill (chief complaint)br onchitis (chief complaint)De nnison: (chief complaint) Chronic obstructive pulmonary disease, unspecifiedCough Type 2 diabetes mellitus without complicationsEss ential (primary) hypertension 8 Margarito Horne. [address] [place] [address], [id number], [place]. tel:[phone] [facility], [address] [place] [address], [id number] , [place] tel: [phone] [facility] sick (chief complaint)me d refill (chief complaint)dE NNISON: (chief complaint) CoughChronic obstructive pulmonary disease, unspecifiedType 2 diabetes mellitus without complicationsEss ential (primary) hypertension 8 Margarito Horne. [address] [place] [address], [id number], [place]. tel:[phone] [facility], [address] [place] [address], [id number] , [place] tel: [phone] [facility] med refill (chief complaint)De nnison: (chief complaint) Focal (segmental) acute (reversible) ischemia of small intestineAnxiety disorder, unspecifiedBipol ar disorderChronic obstructive pulmonary disease, unspecifiedType 2 diabetes mellitus without complicationsNic otine dependence, unspecified, uncomplicatedEss ential (primary) hypertension 8 Margarito Horne. [address] [place] [address], [id number], . tel:[phone] [facility], [address] [place] [address], [id number] , [place] tel: [phone] [facility] med refills (chief complaint)Le ft thight (chief complaint) Meralgia paresthetica, left lower limbAnxiety disorder, unspecifiedBipol ar disorder 7 Shahzad Cobb. [address] [place] [address], [id number], . tel:[phone] OFFICE/OUTPA TIENT VISIT, [facility], [address] [place] [address], [id number] , [place] tel: [phone] [facility] R thigh pain (chief complaint)di scuss medication (chief complaint) Anxiety disorder, unspecifiedBipol ar disorderMeralgia paresthetica, left lower limb 7 Shahzad Cobb. [address] [place] [address], [id number], [place]. tel:[phone] [facility], [address] [place] [address], [id number] , [place] tel: [phone] [facility] HgbA1C (chief complaint)me dication refill (chief complaint) Anxiety disorder, unspecifiedBipol ar disorderCervical giaOther cervical disc degeneration, unspecified cervical regionSpinal stenosis, cervical regionPain in left shoulderType 2 diabetes mellitus with hyperglycemiaGER D w/o esophagitis 7 Shahzad Cobb. [address] [place] [address], [id number], [place]. tel:[phone] OFFICE/OUTPA TIENT VISIT, [facility], [address], [place], [id number] , [place] tel: [phone] [facility] follow up (chief complaint) Chronic pulmonary embolismCervical giaOther cervical disc degeneration, unspecified cervical regionSpinal stenosis, cervical region 7 Shahzad Cobb. [address] [place] [address], [id number], [place]. tel:[phone] OFFICE/OUTPA TIENT VISIT, [facility], [address], [place], [id number] , [place] tel: [phone] [facility] L arm/shoulder pain (chief complaint) CervicalgiaOther cervical disc degeneration, unspecified cervical regionSpinal stenosis, cervical region 6 Shahzad Cobb. [address] [place] [address], [id number], [place]. tel:[phone] OFFICE/OUTPA TIENT VISIT, [facility], [address], [place], [id number] , [place] tel: [phone] [facility] [facility] severe leg pain (chief complaint) Restless leg syndromePain in leg, unspecifiedType 2 diabetes mellitus with hyperglycemiaSpi nal stenosis, cervical region 6 Shahzad Cobb. [address] [place] [address], [id number], [place]. tel:[phone] OFFICE/OUTPA TIENT VISIT, [facility], [address], [place], [id number] , [place] tel: [phone] [facility] knee pain (chief complaint) Pain in kneeRestless leg syndrome 6 Shahzad Cobb. [address] [place] [address], [id number], [place]. tel:[phone] [facility], [address] [place] [address], [id number] , [place] tel: [phone] [facility] spasms on right side (chief complaint) Muscle spasm of backCervicalgiaO ther cervical disc degeneration, unspecified cervical regionSpinal stenosis, cervical region 6 Shahzad Cobb. [address] [place] [address], [id number], [place]. tel:[phone] OFFICE/OUTPA TIENT VISIT, [facility], [address], [place], [id number] , [place] tel: [phone] [facility] med refill (chief complaint) Type 2 diabetes mellitus with hyperglycemiaCer vicalgiaOther cervical disc degeneration, unspecified cervical regionSpinal stenosis, cervical region 6 Shahzad Cobb. [address] [place] [address], [id number], [place]. tel:[phone] [facility], [address] [place] [address], [id number] , [place] tel: [phone] [facility] Vertigo 6 Shahzad Cobb. [address] [place] [address], [id number], [place]. tel:[phone] OFFICE/OUTPA TIENT VISIT, [facility], [address] [place] [address], [id number] , [place] tel: [phone] [facility] medication refill (chief complaint)kn ee pain (chief complaint) Bipolar disorder 6 Shahzad Cobb. [address] [place] [address], [id number], [place]. tel:[phone] OFFICE/OUTPA TIENT VISIT, [facility], [address] [place] [address], [id number] , [place] tel: [phone] [facility] medication refill (chief complaint)re stless leg syndrome (chief complaint) Restless leg syndromeCervical giaOther cervical disc degeneration, unspecified cervical regionSpinal stenosis, cervical region 6 Shahzad Cobb. [address] [place] [address], [id number], [place]. tel: [phone] OFFICE/OUTPA TIENT VISIT, [facility], [address], [place], [id number] , [place] tel: [phone] [facility] medication refills (chief complaint) Bipolar disorderAnxiety disorder, unspecified 0 6 Shahzad Cobb. [address], [place], [id number], [place]. [phone] OFFICE/OUTPA TIENT VISIT, [facility], [address], [place], [id number] , [place] tel: [phone] [facility] medication refill (chief complaint) CervicalgiaOther cervical disc degeneration, unspecified cervical regionSpinal stenosis, cervical regionVertigo 6 Shahzad Cobb. [address] [place] [address], [id number], [place]. tel:[phone] OFFICE/OUTPA TIENT VISIT, [facility], [address], [place], [id number] , [place] tel: [phone] [facility] cough (chief complaint)me d refill (chief complaint) Type 2 diabetes mellitus with hyperglycemiaCOP D w/ acute exacerbationCerv icalgiaOther cervical disc degeneration, unspecified cervical regionSpinal stenosis, cervical region 6 Shahzad Cobb. [address] [place] [address], [id number], [place]. tel:[phone] OFFICE/OUTPA TIENT VISIT, [facility], [address], [place], [id number] , [place] tel: [phone] [facility] pain (chief complaint) CervicalgiaPain in left shoulder 5 Shahzad Cobb. [address] [place] [address], [id number], [place]. tel:[phone] OFFICE/OUTPA TIENT VISIT, [facility], [address] [place] [address], [id number] , [place] tel:[phone] [facility] cold (chief complaint) COPD w/ acute exacerbationCerv icalgiaOther cervical disc degeneration, unspecified cervical region Aug- 5 Shahzad Cobb. [address] [place] [address], [id number], [place]. tel:[phone] OFFICE/OUTPA TIENT VISIT, [facility], [address] [place] [address], [id number] , [place] tel: [phone] [facility] med refill (chief complaint) CervicalgiaDegen eration of cervical intervertebral discSpinal stenosis in cervical regionColostomy status 5 Shahzad Cobb. [address] [place] [address], [id number], [place]. tel:[phone] OFFICE/OUTPA TIENT VISIT, [facility], [address] [place] [address], [id number] , [place] tel: [phone] [facility] Medcation refills (chief complaint)St aple removal (chief complaint) AnxietyColostomy status 5 Shahzad Cobb. [address] [place] [address], [id number], [place]. [phone] OFFICE/OUTPA TIENT VISIT, [facility], [address] [place] [address], [id number] , [place] tel: [phone] [facility] med refill (chief complaint) Acute mesenteric ischemiaColostom y statusTrigger finger Apr- 5 Shahzad Cobb. [address] [place] [address], [id number], [place]. tel:[phone] OFFICE/OUTPA TIENT VISIT, [facility], [address] [place] [address], [id number] , [place] tel:[phone] [facility] Med refill (chief complaint) Abdomen painAttention to colostomyColosto my status 5 Shahzad Cobb. [address], [place], [id number], [place]. tel:[phone] OFFICE/OUTPA TIENT VISIT, [facility], [address], [place], [id number] , [place] tel: [phone] [facility] medication refill (chief complaint) Spinal stenosis in cervical regionColostomy status 5 Shahzad Cobb. [address], [place], [id number], [place]. tel:[phone] OFFICE/OUTPA TIENT VISIT, [facility], [address], [place], [id number] , [place] tel: [phone] [facility] med refill (chief complaint) Colostomy statusAbdomen painAcute bronchitis 5 Nanda Wilcox. [address] [place] [address], [id number], [place]. tel:[phone] OFFICE/OUTPA TIENT VISIT, [facility], [address], [place], [id number] , [place] tel: [phone] [facility] dyspnea (chief complaint) COPDColostomy statusTobacco abuse 5 Shahzad Cobb. [address], [place], [id number], [place]. tel:[phone] OFFICE/OUTPA TIENT VISIT, [facility], [address], [place], [id number] , [place] tel: [phone] [facility] med f/u (chief complaint) Spinal stenosis in cervical regionCervicalgi a 5 Shahzad Cobb. [address], [place], [id number], [place]. tel:[phone] [facility], [address] [place] [address], [id number] , [place] tel: [phone] [facility] referral (chief complaint) Colostomy statusAttention to colostomy 4 [employer] APPL[employer]ANCE WORK[employer] Jeri. [address], [place], [id number], [place]. [phone] OFFICE/OUTPA TIENT VISIT, [facility], [address], [place], [id number] , [place] tel: [phone] [facility] ER (chief complaint) OtherColostomy statusAnxietyDia betes Mellitus Type 2, UncomplicatedOth er and unspecified coagulation defects 4 [employer] APPL[employer] WORK[employer] Jeri. [address], [place], [id number], [place]. tel:[phone] OFFICE/OUTPA TIENT VISIT, [facility], [address], [place], [id number] , [place] tel: [phone] [facility] BP check (chief complaint) CervicalgiaSpina l stenosis in cervical regionDisplaceme nt of cervical intervertebral disc without myelopathy 4 [employer] APPL[employer]ANCE WORK[employer] Jeri. [address], [place], [id number], [place]. [phone] OFFICE/OUTPA TIENT VISIT, [facility], [address], [place], [id number] , [place] tel: [phone] [facility] review labs and MRI (chief complaint) Degeneration of cervical intervertebral discDiabetes Mellitus Type 2, UncomplicatedUns pecified essential hypertensionUrin maryellen incontinence, unspecifiedMixed HyperlipidemiaOv erweight 4 Hemmer Libby. [address], [place], [id number], [place]. [facility], [address], [place], [id number] , [place] tel: [phone] [facility] No Information 4 Hemmer Libby. [address], [place], [id number], [place]. [facility], [address], [place], [id number] , [place] tel: [phone] [facility] Potential Drug Interaction (chief complaint) Therapeutic Drug Monitoring 4 Hemkirill Souza. [address], [place], [id number], [place]. OFFICE/OUTPA TIENT VISIT, [facility], [address], [place], [id number] , [place] tel: [phone] [facility] neck pain (chief complaint)ea r discomfort (chief complaint) Degeneration of cervical intervertebral discGERDDiabetes Mellitus Type 2, UncomplicatedUri nary incontinence, unspecifiedUnspe cified essential hypertensionMixe d HyperlipidemiaBe nign neoplasm of thyroid glands 4 Hemkirill Souza. [address], [place], [id number], [place]. [facility], [address] [place] [address], [id number] , [place] tel: [phone] [facility] Dental examination 4 Merrick DMD January. [address], [place], [id number], [place]. tel:[phone] [facility], [address], [place], [id number] , [place] tel: [phone] [facility] Clinic Dental examination 4 [place] DMD January. [address], [place], [id number], [place]. tel:[phone] [facility], [address], [place], [id number] , [place] tel: [phone] [facility] Clinic Dental examination 0 4 [place] DMD January. [address], [place], [id number], [place]. tel:[phone] [facility], [address], [place], [id number] , [place] tel:[phone] [facility] No Information Jul-2 0 Lamp Mayte. [address], [place], [id number], [place]. tel:[phone] [facility], [address] [place] [address], [id number] , tel: [phone] [facility] No Information Sep-2 8-201 0 Visci DO Boone. [address] [place] [address], [id number], . tel:[phone] [facility], [address] [place] [address], [id number] , tel: [phone] [facility] No Information Dec-0 1-200 8 No Information [facility], [address] [place] [address], [id number] , tel: [phone] Flu No Information Dec-0 1-200 8 Visci DO Boone. [address] [place] [address], [id number], . tel:[phone] Family History Family Member Type Diagnosis Age [...] hypertension Payers Payer name Insurance type Covered green party ID Fredy ferrer(s) Ale Medicare Advantage SERGO [id number] Medicaid [facility] [id number] Social History Type Description Quantity Date Captured Comments Alcohol Use Details Unknown Caffeine Use Details Unknown Tobacco Use Status Smoking Status No Information Sex Female Sexual Orientation Straight or heterosexual Gender Identity Female Chief Complaint And Reason For Visit No Information Reason For Referral Reason For Referral No Information Plan Of Treatment Date Type Action Status Goal MANAGER OF INTERNATIONAL exam. Due on due Goal Colonoscopy. Due on due Goal Pneumococcal vac cine. Due on due Goal Hemoglobin A1C. Due on due Goal Influenza Vaccine. Due on due Goal Dental exam. Due on due Goal H&P. Due on due Goal Mammogram. Due on due Goal Depression scree nancy. Due on due Goal Zoster vaccine ( ). Due on due Goal Hep A. Due [...] Pneumococcal vac cine. Due on due Goal MANAGER OF INTERNATIONAL exam. Due on due Goal Foot exam. Due on due Goal Dental exam. Due on due Goal Hemoglobin A1C. Due on due Goal Mammogram. Due on due Goal Tobacco cessation counseling completed Goal Dilated eye exam. Due on Sep [...] due Goal ECG. Due on due Goal MANAGER OF INTERNATIONAL exam. Due on due Goal Tdap. Due [...] Goal Diabetes screening. Due on due Goal MANAGER OF INTERNATIONAL exam. Due on due Goal Influenza Vaccine. [...] due Goal Mammogram. Due on due Goal MANAGER OF INTERNATIONAL exam. Due on due Goal Depression scree nancy. Due on due Goal Dental exam. Due on 021 due Goal Urine microalbumin. Due on due Goal Pneumococcal vac cine. Due on due Goal Colonoscopy. Due on 025 due Goal Zoster vaccine ( ). Due on due Goal Diabetes screening. Due on due Goal ECG. Due on due Goal Dietary manageme nt education, guidance, and counseling completed Goal Pneumococcal vac cine. Due on due Goal Dental exam. Due on 021 due Goal Depression scree nancy. Due on [...] Goal Diabetes screening. Due on due Goal MANAGER OF INTERNATIONAL exam. Due on due Goal Breast exam. Due on due Goal Tobacco cessation counseling completed Goal Dietary manageme nt education, guidance, and counseling completed Goal Breast exam. Due on due Goal Urine microalbumin. Due on due Goal Diabetes screening. Due on due Goal Colonoscopy. Due on due Goal MANAGER OF INTERNATIONAL exam. Due on due Goal Depression scree [...] Goal Urine microalbumin. Due on due Goal MANAGER OF INTERNATIONAL exam. Due on due Goal Breast exam. Due on 021 due Goal ECG. Due on due Goal [...] May due Goal Dental exam. Due on 021 due Goal Hemoglobin A1C. Due on due [...] Goal Dental exam. Due on due Goal MANAGER OF INTERNATIONAL exam. Due on due Goal Pneumococcal vac [...] Goal Dental exam. Due on due Goal MANAGER OF INTERNATIONAL exam. Due on due Goal Dilated eye exam. Due on March due Goal H&P. Due on due Goal Tdap. Due on due Goal Influenza Vaccine. Due on due Goal Pneumococcal vac cine. Due on due Goal Foot exam. Due on due Goal Urine microalbumin. Due on M due Goal Mammogram. Due on due Goal [...] Goal Dental exam. Due on due Goal MANAGER OF INTERNATIONAL exam. Due on due Goal Urine microalbumin. Due on A due Goal H&P. Due on due Goal ECG. Due on due Goal Tdap. Due on due Goal Dental exam. Due on due Goal Dilated eye exam. Due on Dec due Goal Urine microalbumin. Due on due Goal ECG. Due on due Goal H&P. Due on due Goal Mammogram. Due on due Goal MANAGER OF INTERNATIONAL exam. Due on due Goal Foot exam. Due on due Goal Zoster vaccine ( ). Due on due Goal Pneumococcal vac cine. Due on due Goal Tdap. Due on due Goal Influenza Vaccine. Due on Ct due Goal Diabetes screening. Due on due [...] Goal Influenza Vaccine. Due on due Goal MANAGER OF INTERNATIONAL exam. Due on due Goal Zoster vaccine ( ). Due on due Goal Colonoscopy. Due on [...] Goal Mammogram. Due on 0 due Goal MANAGER OF INTERNATIONAL exam. Due on due Goal Tobacco cessation counseling completed Goal Pneumococcal vac cine. Due on due Goal MANAGER OF INTERNATIONAL exam. Due on due Goal Foot exam. [...] nt education, guidance, and counseling completed Goal MANAGER OF INTERNATIONAL exam. Due on due Goal Pneumococcal vac [...] on due Goal Influenza Vaccine. Due on No due Goal Tdap. Due on due Goal [...] Vaccine. Due on Oc t due Goal MANAGER OF INTERNATIONAL exam. Due on due Goal Depression scree nanyc. Due on due Goal Zoster vaccine ( ). Due on due Goal Pneumococcal vac cine. Due on due Goal Colonoscopy. Due on 025 due Goal Tobacco cessation counseling completed Goal Dietary manageme nt education, guidance, and counseling completed Goal H&P. Due on due Goal Pneumococcal vac cine. Due on due Goal Dilated eye exam. Due on Jul due Goal Foot exam. Due on 0 due Goal MANAGER OF INTERNATIONAL exam. Due on due Goal Tdap. Due [...] Goal Dental exam. Due on due Goal MANAGER OF INTERNATIONAL exam. Due on due Goal Urine microalbumin. Due on A due Goal Breast exam. Due on due Goal Pneumococcal vac cine. Due on due Goal Hemoglobin A1C. Due on due Goal Dilated eye exam. Due on Jun due Goal Dietary manageme nt education, guidance, and counseling completed Goal Tobacco cessation counseling completed Goal MANAGER OF INTERNATIONAL exam. Due on due Goal Breast exam. Due on due Goal Mammogram. Due on 0 due Goal Pneumococcal vac cine. Due on due Goal Diabetes screening. Due on due Goal ECG. Due on due Goal H&P. Due on due Goal Depression scree nancy. Due on due Goal Hemoglobin A1C. Due on due Goal Urine microalbumin. Due on due Goal Zoster vaccine ( 1st). Due on due Goal Tdap. Due on due Goal Dilated eye exam. Due on May due Goal Colonoscopy. Due on 025 due [...] Pneumococcal vac cine. Due on due Goal MANAGER OF INTERNATIONAL exam. Due on due Goal Tdap. Due [...] and counseling completed Goal Mammogram. Due on 0 due Goal [...] vaccine ( 1st). Due on due Goal MANAGER OF INTERNATIONAL exam. Due on due Goal Tdap. Due [...] Goal Dental exam. Due on due Goal MANAGER OF INTERNATIONAL exam. Due on due Goal Hemoglobin A1C. [...] due Goal ECG. Due on due Goal MANAGER OF INTERNATIONAL exam. Due on due Goal Breast exam. [...] Pneumococcal vac cine. Due on due Goal MANAGER OF INTERNATIONAL exam. Due on due Goal Colonoscopy. Due [...] Goal Breast exam. Due on due Goal MANAGER OF INTERNATIONAL exam. Due on due Goal Depression scree nancy. Due on due Goal Tdap. Due on due Goal Mammogram. Due on 0 due Goal Colonoscopy. Due on due Goal Urine microalbumin. Due on due Goal Pneumococcal vac cine. Due on due Goal Foot exam. Due on 0 due Goal H&P. Due [...] due Goal H&P. Due on due Goal MANAGER OF INTERNATIONAL exam. Due on due Goal ECG. Due on due Goal Urine microalbumin. Due on D due Goal Pneumococcal vac cine. Due on due Goal Depression scree nancy. Due on due Goal ECG. Due on due Goal MANAGER OF INTERNATIONAL exam. Due on due Goal Breast exam. [...] due Goal Tdap. Due on due Goal MANAGER OF INTERNATIONAL exam. Due on due Goal Depression scree [...] due Goal H&P. Due on due Goal MANAGER OF INTERNATIONAL exam. Due on due Goal Diabetes screening. [...] Goal Mammogram. Due on 9 due Goal MANAGER OF INTERNATIONAL exam. Due on due Goal Tdap. Due [...] nt education, guidance, and counseling completed Goal Influenza Vaccine. Due on due Goal Dental exam. Due on due Goal Depression scree nancy. Due on due Goal Pneumococcal vac cine. Due on due Goal MANAGER OF INTERNATIONAL exam. Due on due Goal Dilated eye [...] Depression scree nancy. Due on due Goal MANAGER OF INTERNATIONAL exam. Due on due Goal Influenza Vaccine. Due on due Goal Dilated eye exam. Due on Apr due Goal Tdap. Due on due Goal Mammogram. Due on 9 due Goal ECG. Due on due Goal Diabetes screening. Due on A due Goal Tobacco cessation counseling completed Goal Dietary manageme nt education, guidance, and counseling completed Goal MANAGER OF INTERNATIONAL exam. Due on due Goal Depression scree [...] Foot exam. Due on 9 due Goal Influenza Vaccine. [...] Goal Diabetes screening. Due on due Goal MANAGER OF INTERNATIONAL exam. Due on due Goal Colonoscopy. Due [...] Goal Foot exam. Due on due Goal MANAGER OF INTERNATIONAL exam. Due on due Goal Depression scree [...] due Goal Colonoscopy. Due on due Goal MANAGER OF INTERNATIONAL exam. Due on due Goal Mammogram. Due on due Goal ECG. Due on due Goal Tdap. Due on due Goal Diabetes screening. Due on A due Goal Influenza Vaccine. Due on due Goal Dietary manageme nt education, guidance, and counseling completed Goal Tobacco cessation counseling completed Goal Tdap. Due on due Goal Foot exam. Due on 9 due Goal MANAGER OF INTERNATIONAL exam. Due on due Goal Mammogram. Due [...] Diabetes screening. Due on A due Goal MANAGER OF INTERNATIONAL exam. Due on due Goal Breast exam. [...] Goal Dental exam. Due on due Goal MANAGER OF INTERNATIONAL exam. Due on due Goal Depression scree [...] Goal Dental exam. Due on due Goal MANAGER OF INTERNATIONAL exam. Due on due Goal ECG. Due on due Goal Mammogram. Due on 9 due Goal Dietary manageme nt education, guidance, and counseling completed Goal Tobacco cessation counseling completed Goal Diabetes screening. Due on [...] Goal Breast exam. Due on due Goal MANAGER OF INTERNATIONAL exam. Due on due Goal ECG. Due on due Goal Tobacco cessation counseling completed Goal Dietary manageme nt education, guidance, and counseling completed Goal ECG. Due on due Goal Depression scree nancy. Due on due Goal MANAGER OF INTERNATIONAL exam. Due on due Goal Dental exam. [...] Goal Influenza Vaccine. Due on due Goal MANAGER OF INTERNATIONAL exam. Due on due Goal Dental exam. [...] Goal Breast exam. Due on due Goal MANAGER OF INTERNATIONAL exam. Due on due Goal Tdap. Due [...] 8 due Goal Foot exam. Due on 8 due Goal Breast exam. Due on due Goal Urine microalbumin. Due on due Goal Dilated eye exam. Due on March due Goal Dental exam. Due on due Goal Pneumococcal vac cine. Due on due Goal ECG. Due on due Goal MANAGER OF INTERNATIONAL exam. Due on due Goal Influenza Vaccine. Due on due Goal FOBT. Due on due Goal Dilated eye exam. Due on Jan due Goal Breast exam. Due on due Goal Dental exam. Due on due Goal Urine microalbumin. Due on A due Goal Foot exam. Due on 8 due Goal Pneumococcal vac cine. Due on due Goal Urinalysis. Due on 14 due Goal H&P. Due on due Goal Influenza Vaccine. Due on due Goal ECG. Due on due Goal Tdap. Due on due Goal BMP fasting. Due on 014 due Goal FOBT. Due on due Goal Mammogram. Due on 8 due Goal MANAGER OF INTERNATIONAL exam. Due on due Goal Breast exam. Due on 018 due Goal FOBT. Due on due Goal Urinalysis. Due on 14 due Goal MANAGER OF INTERNATIONAL exam. Due on due Goal ECG. Due [...] due Goal ECG. Due on due Goal MANAGER OF INTERNATIONAL exam. Due on due Goal Dental exam. [...] due Goal H&P. Due on due Goal MANAGER OF INTERNATIONAL exam. Due on due Goal Dilated eye exam. Due on Dec due Goal Influenza Vaccine. Due on due Goal Foot exam. Due on due Goal Pneumococcal vac cine. Due on due Goal Breast exam. Due on due Goal Urinalysis. Due on 14 due Goal Mammogram. Due on due Goal MANAGER OF INTERNATIONAL exam. Due on due Goal Dilated eye [...] Goal Urine microalbumin. Due on due Goal MANAGER OF INTERNATIONAL exam. Due on due Goal Pneumococcal vac [...] Goal Mammogram. Due on 7 due Goal MANAGER OF INTERNATIONAL exam. Due on due Goal BMP fasting. Due on 014 due Goal Breast exam. Due on due Goal Dental exam. Due on due Goal H&P. Due on due Goal Tdap. Due on due Goal ECG. Due on due Goal Tobacco cessation counseling completed Goal Colonoscopy. Due on due Goal MANAGER OF INTERNATIONAL exam. Due on due Goal Urinalysis. Due on 14 due Goal BMP fasting. Due on due Goal Pap/HPV testing. Due on due Goal TD Vaccine. Due on 17 due Goal H&P. Due on due Goal Tdap. Due on due Goal Influenza Vaccine. Due on due Goal Sigmoidoscopy. Due on due Goal Breast exam. Due on 017 due Goal Mammogram. Due on 7 due Goal FOBT. Due on due Goal [...] Goal Breast exam. Due on due Goal MANAGER OF INTERNATIONAL exam. Due on due Goal H&P. Due [...] Goal Mammogram. Due on 6 due Goal MANAGER OF INTERNATIONAL exam. Due on due Goal Urinalysis. Due on 14 due Goal MANAGER OF INTERNATIONAL exam. Due on due Goal H&P. Due [...] 015 due Goal Breast exam. Due on due Goal Tdap. Due on due Goal Influenza Vaccine. Due on due Goal BMP fasting. Due on due Goal Sigmoidoscopy. Due on due Goal MANAGER OF INTERNATIONAL exam. Due on due Goal Mammogram. Due on 6 due Goal Urinalysis. Due on 14 due Goal Mammogram. Due on 6 due Goal FOBT. Due on due Goal Sigmoidoscopy. Due on due Goal Colonoscopy. Due on due Goal MANAGER OF INTERNATIONAL exam. Due on due Goal Influenza Vaccine. [...] Goal Mammogram. Due on 6 due Goal Breast exam. Due on due Goal Pap/HPV testing. Due on due Goal H&P. Due on due Goal FOBT. Due on due Goal Sigmoidoscopy. Due on due Goal MANAGER OF INTERNATIONAL exam. Due on due Goal TD Vaccine. Due on 16 due Goal Lipid Panel. Due on 015 due Goal Breast exam. Due on 016 due Goal Urinalysis. Due on 14 due Goal FOBT. Due on due Goal Mammogram. Due on 6 due Goal Colonoscopy. Due on 016 due Goal TD Vaccine. Due on 16 due Goal MANAGER OF INTERNATIONAL exam. Due on due Goal BMP fasting. Due on 014 due Goal Sigmoidoscopy. Due on due Goal Influenza Vaccine. Due on due Goal H&P. Due on due Goal Tdap. Due on due Goal Pap/HPV testing. Due on due Goal Mammogram. Due on 6 due Goal MANAGER OF INTERNATIONAL exam. Due on due Goal H&P. Due [...] Goal Influenza Vaccine. Due on due Goal MANAGER OF INTERNATIONAL exam. Due on due Goal TD Vaccine. Due on 16 due Goal MANAGER OF INTERNATIONAL exam. Due on due Goal Urinalysis. Due [...] due Goal Colonoscopy. Due on due Goal MANAGER OF INTERNATIONAL exam. Due on due Goal Influenza Vaccine. [...] Goal Pap/HPV testing. Due on due Goal MANAGER OF INTERNATIONAL exam. Due on due Goal H&P. Due on due Goal Mammogram. Due on 5 due Goal Depression scree nancy. Due on due Goal Influenza Vaccine. Due on due Goal Tdap. Due on due Goal BMP fasting. Due on due Goal MANAGER OF INTERNATIONAL exam. Due on due Goal Sigmoidoscopy. Due on due Goal Urinalysis. Due on 14 due Goal TD Vaccine. Due on 15 [...] due Goal Tdap. Due on due Goal MANAGER OF INTERNATIONAL exam. Due on due Goal FOBT. Due on due Goal TD Vaccine. Due on 15 due Goal Mammogram. Due on 5 due Goal Colonoscopy. Due on due Goal Sigmoidoscopy. Due on due Goal BMP fasting. Due on due Goal MANAGER OF INTERNATIONAL exam. Due on due Goal Pap/HPV testing. Due on due Goal BMP fasting. Due on due Goal Urinalysis. Due on 14 due Goal Sigmoidoscopy. Due on due Goal Depression scree nancy. Due on due Goal TD Vaccine. Due on 15 due Goal Breast exam. Due on due Goal Colonoscopy. Due on 015 due Goal Tdap. Due on due Goal Influenza Vaccine. Due on due Goal H&P. Due on due Goal FOBT. Due on due Goal Mammogram. Due on 5 due Goal Lipid Panel. Due on due Goal Pap/HPV testing. Due on due Goal Colonoscopy. Due on due Goal Breast exam. Due on due Goal FOBT. Due on due Goal MANAGER OF INTERNATIONAL exam. Due on due Goal BMP fasting. [...] Breast exam. Due on 015 due Goal MANAGER OF INTERNATIONAL exam. Due on due Goal TD Vaccine. [...] due Goal Tdap. Due on due Goal MANAGER OF INTERNATIONAL exam. Due on due Goal Mammogram. Due [...] due Goal H&P. Due on due Goal MANAGER OF INTERNATIONAL exam. Due on due Goal Tdap. Due on due Goal Colonoscopy. Due on 015 due Goal Influenza Vaccine. Due on due Goal TD Vaccine. Due [...] due Goal Tdap. Due on due Goal MANAGER OF INTERNATIONAL exam. Due on due Goal Pap/HPV testing. Due on due Goal Mammogram. Due on 5 due Goal Sigmoidoscopy. Due on due Goal BMP fasting. Due on 014 due Goal Influenza Vaccine. Due on due Goal MANAGER OF INTERNATIONAL exam. Due on due Goal Urinalysis. Due [...] To: Sal Muse [address] [place], [place] [id number] Ordered: Referrals: Allopathic & Osteopathic Physicians : Orthopaedic Surgery. Sal Muse. Location: [facility]. Consult Appointment date/timeframe: 09/03/2017 ordered Referral Ordered: [...] Referral Ordered: referred to Clinical Nurse Specialist TRACK REPAIR LABORER today (related to Attention to colostomy) ordered Referral Ordered: Urology. ordered Future Order: Lab Order GLYCOSYL ATED HEMOGLOBIN TEST ([id number]), Collected on: , Sent on: Sent Future Order: Lab Order Complian ce Drug Analysis, Ur ([id number]), Collected on: , Sent on: Sent Future Order: Lab Order Urine, N aloxone Urine Cofirm ([id number]), Collected on: , Sent on: Sent History [...] RN ,above was reviewed and agreed with [facility] lab draw Pt here for lab [...] Lyrica 08/11, Ativan 08/05, Flexeril 07/29 & [place] 07/26TGrodi CARE MANAGEMENT COORDINATOR fatigue This is an initi al visit. [...] completed, last filled Lorazepam 06/06, Lyrica 06/06, [place] 06/05TGrodi [facility] Med Refills Pt here today fo r medication refills. PT states she fell Thursday and her L hand is swollen. Denies any pain. OARRS completed, last filled [place], Ativan & Lyrica 05/08TGrodi [facility] Musculoskeletal pain Onset: sudd en. It [...] Ativan, 02/13, Lyrica 02/13, & norco 02/06TGrodi CARE MANAGEMENT COORDINATOR fatigue This is an initi al visit. [...] Ativan 12/19, Lyrica 12/17, Flexeril 12/02 & [place] 11/20TGrodi LPNPt states she is just tired, pt son who she lives with has his son that is 3 months old and not sleeping thought the [facility] Med Refills Pt here today fo [...] work. OARRS completed, last filled Ativan 10/23, [place] 10/31 & Flexeril 10/31TGrodi CARE MANAGEMENT COORDINATOR GERD The severity of the problem is [...] refills. OARRS completed, last filled Ativan 09/25, [place] & Flexeril 09/05TGrodi CARE MANAGEMENT COORDINATOR diabetes The problem is s table. Risk [...] OARRS completed, last filled Ativan 08/26 & [place] 08/08TGrodi CARE MANAGEMENT COORDINATOR Med Refills Pt here today fo r medication refills. We discussed Pt getting tested genes for coronary artery disease and what pt should do about it otherwise pt is doing well. OARRS completed, last filled Ativan 07/22, Flexeril 07/15, [place] 07/11 & Lyrica 07/01TGrodi CARE MANAGEMENT COORDINATOR fatigue This is an initi al visit. [...] completed, last filled Lyrica & Ativan 05/27, [place] 05/18, & Ambien 05/14TGrodi CARE MANAGEMENT COORDINATOR diabetes The problem is s table. Risk [...] completed, last filled Ativan 04/28, Lyrica 04/28, [place] 04/16TGrodi CARE MANAGEMENT COORDINATOR GERD The severity of the problem is [...] back pain and dizziness, states that the [place] is no longer helping the pain. Pt [...] 03/10, Ativan, Ambien & Lyrica 03/02, & [place] 03/01TGrodi CARE MANAGEMENT COORDINATOR Anxiety This is a follow up visit. [...] swelling, redness and pain. Pt states the [place] helps with the pain but she is worried about infection. Pt denies any other problems or concerns.Pt requesting refills of [place] 5mg last filled 11/07 and Ativan 0.5mg [...] completed, last filled Lyrica 10/27, Flexeril 10/27, [place] & Ativan 09/27TGjoyce HOPPER Rash The patient [...] provide oral swab. OARRS completed, last filled [place] 09/27, Ativan 09/27 & Lyrica 09/28. [facility] Rapid urine drug screen performed, pt + for NOTHING ALL NEGATIVE. Asked patient when she last took her medication and she stated she last took Ativan yesterday & [place] 4 days ago. TGrodi [facility] Med refills Pt here today fo [...] last filled Flexeril 09/19 & 09/08, Lyrica, [place] & [facility]ivan 08/31[facility] Onset was sudden . The duration [...] if she needs a refill on her [place] and she said, yeah might as well . I asked patient to provide a urine today and she said she can not pee. OARRS completed, last filled Flexeril 08/26, Ativan 08/03, & [place] 08/03TGrodi CARE MANAGEMENT COORDINATOR Dizziness Onset was sudden . Severity is [...] Flexeril 07/15, Lyrica 06/29, Ativan 06/22 & [place] 06/22rodi [facility] DRUG SCREEN Pt could not uri ion for a UDS. Pt had blood drawn. First attempt successful in R antecubital. Pt tolerated well. [facility] F/U Pt here today [...] filled Flexeril 05/27 & 06/09, Lyrica 05/25, [place] & Ativan 05/11TGrod LPNPt states that beside the no energy she feels ok drug screen Pt could no go t o the bathroom so did a blood draw for a drug screen. First attempt successful in R antecubital. Pt tolerated well no issues or concerns. [facility] follow up Pt here today fo r a follow up & medication refills. Pt states she had her INR drawn today and it was 1.9OARRS completed, last filled Flexeril 04/30, Lyrica 04/25, Ativan 04/13, & [place] 03/11TGrodi [facility] hypertension Comorbid conditi ons include diabetes [...] completed, last filled Lyrica 02/16, Ativan, & [place] /Grodi LPNASKED PATIENT IF SHE COULD PROVIDE A URINE AND SHE SAID NOT RIGHT NOW. SHE WILL NEED TO PROVIDE A URINE OR GET A BLOOD DRAW. ,above was reviewed and agreed with Medication refills Patient here for Medication refills. Patient is requesting refills on Wellbutrin, Ativan and [place]. A1C completed today. No other issues at this time. Also patient did agree to reschedule breast biopsy. Patent was advised to stop blood thinners for 5 days. Patient is scheduled 02/09/19 at 10am at the [facility] for breast health. OARRS completed. last [...] well. She states she does not need [place] cause she still has some. OARRS completed, last filled, Ativan 12/22 for 15 day supply, [place] & Lyrica 12/22TGrodi LPNPt states she get [...] this needs discussed. OARRS completed, last filled [place], Ativan, 11/05, Lyrica 11/11 & got Percocet [...] Pt here for medi cation refill on [place] and Ativan. Pt. c/o back pain 08/11. [...] syrup cough drops, tylenol. Sandra Guthrie RN. [place]: Finished ten day s if Keflex. Coughing [...] called. Jose Margarito: Coughing for 1 w [place]. No hemoptysis or shortness of breath or chest pain. Has a nebulizer at home. [place]: States she was t aking Gabapentin for [...] would like 90 days supply if possible. [facility] follow up Patient states s he went [...] the coumadin clinic and [place] managed by [facility] Dr. Rodriguez. Patient needs a [...] is looking into another psych provider in [place]. RUCHI Figueroa knee pain Location: knee. Additional [...] april to see new psych doctor in [place]. Patient has no other issues at this [...] are due for refill. She went to [facility] on 10/15/15 and starts PT on 11/07/15. [...] Metoprolol, & Clopidogel. Oscar Arias dyspnea Pt. [facility] was i [facility] in for emergency colectomy. While inpt. was using nebulizers. Was not given Rx at time of d/c and has been using sister's neb at home with relief of dyspnea. Neb meds currently using are Albuterol and Ipratropium [place] 2 - 3 times/day. Hayden Casas R.N. med f/u Client here to f /u on meds. Also [facility] has a rash around her stoma. [facility] has a Colonoscopy sched. for 11-21-14. Oscar Arias Functional Status Date Functional Assessmen t No Information Instructions Date Instruction Additional Infor matscar Dietary needs education Related to Body mass [...] in 3 months Related to Abnormal Mammogram Dietary management e ducation, guidance, and counseling [...] if desires results. 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
--- OUTSIDE RECORDS SUMMARY | 2024-09-16 11:00 | XMS_ITS ---
Author Organization [facility] es Address [address] [facility] [place] [address] Care Team Providers Care Explosive Specialist Name Role Phone Darcie Lacey Primary Care Provider Janna Jackson Unavailable [phone] REASON FOR VISIT chronic f/u Encounters Encounter Location Date Provider Diagnosis [facility] [address] [facility] [place] [address] 09/16/2024 Darcie Lacey Plan Of Treatment No Information Progress Notes * KING MORENO ADOB:[birth year] (64 yo F)Acc No.[id number]:09/16/2024 Progress Notes Patient: KING KWONG Appointment Provider: Juanita LACEY MD :1960 A ge:63 Y S ex:Female Date:09/16/2024 Address:[address] [place], [place] [phone] Subjective: * Chief Complaints: * 1 . Chronic f/u. * Medical History: Objective: * Vitals: Assessment: Plan: * Treatment: * Images: * Electronic signature of Sherly Lacey MD on 03/25/2025 at 07:12 AM EDT Sign off status: Pending * Appointment Provider: Juanita LACEY MD Date: 11/16/2023 Generated for Gordoni ng/Facliftong/eTransmitting on: 0 03/25/2025 07:12 AM EDT
--- OUTSIDE RECORDS SUMMARY | 2024-12-07 10:15 | XMS_ITS ---
Author Organization [facility] es Address [address] [place] [address] Care Team Providers Care Caul Fat Puller Name Role Phone Darcie Garcia Primary Care Provider [phone] Janna Jackson Unavailable [phone] Nicole Benson Unavailable [phone] REASON FOR VISIT 3 month f/u Encounters Encounter Location Date Provider Diagnosis [facility] [address] [place] [address] 12/07/2024 Nicole Benson Plan Of Treatment No Information Progress Notes * KING MORENO ADOB:[birth year] (64 yo F)Acc No.[id number]:12/07/2024 Behavioral Health Patient: KING KWONG Appointment Provider: Luz Benson :1960 A ge:64 Y S ex:Female Date:12/07/2024 Address:[address] [place], [place] [id number] Pcp:Darcie Garcia Subjective: * Chief Complaints: * 1 . 3 month f/u. * Medical History: Objective: * Vitals: Assessment: Plan: * Treatment: * Images: * Electronic signature of KRISTIAN Hercules on 03/25/2025 at 07:11 AM EDT Sign off status: Pending * Appointment Provider: Luz Benson Date: 12/07/2024 Generated for Brandon williamson/Maverick/eTransmitting on: 03/25/2025 07:11 AM EDT
[2025-03-25 07:08] VITALS: BP 122/69; PULSE 87; TEMP 37.1; O2SAT 99; BMI 27.0
--- OUTSIDE RECORDS SUMMARY | 2025-03-25 07:11 | XMS_ITS | Encounter Summary ---
Author Organization [facility] Address [address] [place], [place] [id number] Care Team Providers Care Solar Electric/Photovoltaic Installer Name Role Phone Shanthi Litstephanie Nelson DO Primary Care Provider [phone] Reza Pike MD Primary Care Provider Pcp, No EMPLOYMENT SECURITY OFFICER Primary Care Provider Unavailabl e Source Comments In the event this information is protected by the Federal Confidentiality of Alcohol and Drug AbusePatient Records regulations: The Federal rules restrict any use of the information to criminally investigate or prosecute any alcohol or drug abuse patient.[facility] Encounter Details Date Type Department Care Team (Late st Contact Info) Description 06/01/2015 Letters (in) Colorectal Surgery [address] [id number] Marcial Ceballos (Hist) [address] [id number] Social History Tobacco Use Types Packs/Day Years [...] June 01, 2015 Jd Dailey, DO [address] [address] RE: Latanya Martinez : [address] [...] and she was suitable for anesthesia, a religious of continuity could be performed. I performed [...] 22, 2015. Yours Faithfully, Marcial Ceballos MD PR/ cc: Latanya Martinez 11/03 [place] [address] Lit Maki DO [address] [facility] [address] documented in this encounter Plan of Treatment Not on file documented as of this encounter Visit Diagnoses Not on filedocumented in this encounter Care Teams Solar Electric/Photovoltaic Installer Relationship Specialty Start Date End Date Lit Maki DO PCP - General 05/16/15 06/03/15 Reza Pike MD PCP - General Family Medicine 06/04/15 05/16/22 Pcp, No, EMPLOYMENT SECURITY OFFICER PCP - General 05/17/22 12/02/22 documented as of this encounter
--- OUTSIDE RECORDS SUMMARY | 2025-03-25 07:11 | XMS_ITS | Encounter Summary ---
Author Organization [facility] Address [address] [place] [address] Phone Care Team Providers Care Supervisor Core Shop Name Role Phone Generic Provider, No Assigned Pcp Primary Car e Provider Unavailable Diane Min RN Unavailable Unavailable June Preston MD Unavailable Conchita Aden MD Primary Care Provider [phone] Diane Min RN Unavailable Unavailable Encounter Details Date Type Department Care Team (Late st Contact Info) Description 10/30/2024 Scanned Document [facility] [address] [place] [place] [address] Scanning, Generic Provider Social History [...] place to sleep or slept in a nursing home (including now)? No 02/16/2024 Housing Stability [...] any time in the past 12 m [facility], were you homeless or living in a nursing home (including now)? No 09/01/2024 Comments No Sex and Gender Information Value Date Recorded Sex Assigned at Not on file Legal Sex Female 10:34 AM EST Gender Identity Not on file Sexual Orientation Not on file documented as of this encounter Plan of Treatment Upcoming Encounters Date Type Department Care Team (Latest Contact Info) Description 04/03/2025 1:00 PM EDT Hospital Encounter [facility] [address] [place] [address] 04/14/2025 10:30 AM EDT Hospital Encounter [facility] [place] [address] [place] [address] Kervin Fair MD [facility] [place] [address] Ventricular tachycardia (Multi) 04/14/2025 12:00 PM EDT - 04/14/2025 4:[address] [facility] [place] [address] [place] [address] Kervin Fair MD [address] [place], [place] [id number] [place] [[address] (CPT )] 07/14/2025 1:00 PM EDT Office Visit [facility] [address] [facility] [address] [place] [address] Oscar Rodriguez MD [address] [facility] [address], [address] [place] [address] 09/26/2025 12:[address] [facility] [address] [place] [address] 09/26/2025 1:00 PM EST Office Visit [facility] [address] [facility] [address] [place] [address] June Preston MD [address] [facility] Office Bldg, [address] [place] [address] documented as of this encounter Procedures Procedure [...] documented as of this encounter Care Teams Supervisor Core Shop Relationship Specialty Start Date End Date Generic Provider, No Assigned Pcp, [place] [address] PCP - General Planning Advisor 08/08/24 11/10/24 Conchita Aden MD [address] [place] [address] [place] [address] PCP - General Family Medicine 11/11/24 Diane Min, cushion cover inspectorPhoto Offset Printer 09/05/24 12/06/24 June Preston MD [address] [facility] Medical Office Bldg, [address] [place] [address] Granulizing Machine Operator Electrophysiology 09/13/24 Diane Min cushion cover inspectorPhoto Offset Printer 01/16/25 01/31/25 documented as of this encounter
--- OUTSIDE RECORDS SUMMARY | 2025-03-25 07:11 | XMS_ITS | Encounter Summary ---
Author Organization [facility] Address [address] [place] [address] Phone Care Team Providers Care Waxer Floor Name Role Phone Generic Provider, No Assigned Pcp Primary Car e Provider Unavailable Diane Min RN Unavailable Unavailable June Preston MD Unavailable Conchita Aden MD Primary Care Provider [phone] Diane Min RN Unavailable Unavailable Encounter Details Date Type Department Care Team (Late st Contact Info) Description 11/02/2024 Scanned Document [facility] [address] [place] [address] Scanning, Generic Provider Social History [...] place to sleep or slept in a long-term (including now)? No 02/16/2024 Housing Stability Vital Sign Answer Mookie e Recorded In the last 12 months, was t here a time when you were not able to pay the mortgage or rent on time? No 09/01/2024 In the past 12 months, how m any times have you moved where you were living? 0 09/01/2024 At any time in the past 12 m [facility], were you homeless or living in a long-term (including now)? No 09/01/2024 Comments No Sex and Gender Information Value Date Recorded Sex Assigned at Not on file Legal Sex Female 10:34 AM EST Gender Identity Not on file Sexual Orientation Not on file documented as of this encounter Plan of Treatment Upcoming Encounters Date Type Department Care Team (Latest Contact Info) Description 04/03/2025 1:00 PM EDT Hospital Encounter [facility] [address] [place] [address] 04/14/2025 10:30 AM EDT Hospital Encounter [facility] [place] [address] [place] [address] Kervin Fair MD [facility] [place] [address] Ventricular tachycardia (Multi) 04/14/2025 12:00 PM EDT - 04/14/2025 4:00 PM EDT Surgery [facility] [place] [address] [place] [address] Kervin Fair MD [address] [place] [address] [place] [[address] (CPT )] 07/14/2025 1:00 PM EDT Office Visit [facility] 703 [facility] [address] [place] [address] Oscar Rodriguez MD [facility] [facility] [address] [place] [address] 09/26/2025 12:20 PM EST Appointment [facility] [address] [place] [address] 09/26/2025 1:00 PM EST Office Visit [facility] [address] [facility] [address] [place] [address] June Preston MD [address] [facility] Office Bldg, [address] [place] [address] documented as of this encounter Visit Diagnoses [...] documented as of this encounter Care Teams Waxer Floor Relationship Specialty Start Date End Date Generic Provider, No Assigned P[place], [place] [address] PCP - General Game Programer 08/08/24 11/10/24 Conchita Aden MD [address] [place] [address] [place] [address] PCP - General Family Medicine 11/11/24 Diane Min RN Care Financial Analysis Consultant 09/05/24 12/06/24 June Preston MD [address] [facility] B[address]g, [address] [place] [address] Lead Furnace Operator Electrophysiology 09/13/24 Diane Min, technical applications specialistFinancial Analysis Consultant 01/16/25 01/31/25 documented as of this encounter
--- OUTSIDE RECORDS SUMMARY | 2025-03-25 07:11 | XMS_ITS | Encounter Summary ---
Author Organization [facility] Address [address] [place] [address] Phone Care Team Providers Care Furniture Assembler Name Role Phone Generic Provider, No Assigned Pcp Primary Car e Provider Unavailable Diane Min RN Unavailable Unavailable June Preston MD Unavailable Conchita Aden MD Primary Care Provider [phone] Diane Min RN Unavailable Unavailable Encounter Details Date Type Department Care Team (Late st Contact Info) Description 10/29/2024 Scanned Document [facility] [address] [place] [place] [address] Scanning, Generic Provider Social History [...] health care facility (including now)? No 02/16/2024 Housing Stability Vital Sign Answer Mookie e Recorded In the last 12 months, was t here a time when you were not able to pay the mortgage or rent on time? No 09/01/2024 In the past 12 months, how m any times have you moved where you were living? 0 09/01/2024 At any time in the past 12 m [facility], were you homeless or living in a [place] health care facility (including now)? No 09/01/2024 Comments No Sex and Gender Information Value Date Recorded Sex Assigned at Not on file Legal Sex Female 10:34 AM EST Gender Identity Not on file Sexual Orientation Not on file documented as of this encounter Plan of Treatment Upcoming Encounters Date Type Department Care Team (Latest Contact Info) Description 04/03/2025 1:00 PM EDT Hospital Encounter [facility] [address] [place] [address] 04/14/2025 10:30 AM EDT Hospital Encounter [facility] [place] [address] [place] [address] Kervin Fair MD [facility] [place] [address] Ventricular tachycardia (Multi) 04/14/2025 12:00 PM EDT - 04/14/2025 4:00 PM EDT Surgery [facility] [place] [address] [place] [address] Kervin Fair MD [address] [place] [address] [place] [[address] (CPT )] 07/14/2025 1:00 PM EDT Office Visit [facility] 703 [facility] [address] [place] [address] Oscar Rodriguez MD [facility] [facility] [address] [place] [address] 09/26/2025 12:20 PM EST Appointment [facility] [address] [place] [address] 09/26/2025 1:00 PM EST Office Visit [facility] [address] [facility] [address] [place] [address] June Preston MD [address] [facility] Office Bldg, [address] [place] [address] documented as of this encounter Visit Diagnoses [...] documented as of this encounter Care Teams Furniture Assembler Relationship Specialty Start Date End Date Generic Provider, No Assigned [place], [place] [address] PCP - General Lpc 08/08/24 11/10/24 Conchita Aden MD [address] [place] [address] [place] [address] PCP - General Family Medicine 11/11/24 Diane Min RN Care Airplane Flight Attendant 09/05/24 12/06/24 June Preston MD [address] [facility] Bldg, [address] [place] [address] Weather Observer Electrophysiology 09/13/24 Diane Min, geothermal field technicianAirplane Flight Attendant 01/16/25 01/31/25 documented as of this encounter
--- OUTSIDE RECORDS SUMMARY | 2025-03-25 07:12 | XMS_ITS | Clinical Summary ---
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) from Last 3 Months or Most Recently Relevant to Health Maintenance Results * (ABNORMAL) BASIC METABOLIC PNL (05/31/2015 12:41 AM EDT) Glucose 101(H) 65 - 100 mg/dL 05/31/2015 1:52 AM EDT [facility] BUN 3(L) 8 - 25 mg/dL 05/31/2015 1:52 AM T [facility] Creatinine 0.75 0.70 - 1.40 mg/dL 05/31/2015 1:52 AM T [facility] Sodium 135 132 - 148 mmol/L 05/31/2015 1:52 AM T [facility] Potassium 4.3 3.5 - 5.0 mmol/L 05/31/2015 1:52 AM T [facility] Chloride 100 98 - 110 mmol/L 05/31/2015 1:52 AM T [facility] CO2 24 23 - 32 mmol/L 05/31/2015 1:52 AM [facility] Anion Gap 11 0 - 15 mmol/L 05/31/2015 1:52 AM T [facility] Calcium 8.6 8.5 - 10.5 mg/dL 05/31/2015 1:52 AM T [facility] eGFR- >60 05/31/2015 1:52 AM T [facility] eGFR-All Other Races >60 . 05/31/2015 1:52 AM [facility] Comment: eGFR (Estimated GFR) Units [...] Escobar (Hist) Lin LABORATORY Final Result [facility] [address] [facility] [place] [address] * (ABNORMAL) LIPID PANEL BASIC (05/16/2015 10:42 AM EDT) Triglyceride 118 30 - 149 mg/dL 05/16/2015 6:55 PM EDT [facility] Cholesterol, Total 142 100 - 199 mg/dL 05/16/2015 6:55 PM EDT [facility] HDL Cholesterol 65 >55 mg/dL 5 6:55 PM EDT [facility] VLDL Cholesterol 24 6 - 40 mg/dL 05/16/2015 6:55 PM EDT [facility] LDL Cholesterol, Calculated 53(L) 60 - 129 mg/dL 05/16/2015 6:55 PM EDT [facility] Fasting Time Unknown hrs 05/16/2015 2:56 PM EDT [facility] TC:HDL Ratio 2.18 1.00 - 5.00 05/16/2015 6:55 PM EDT [facility] LDL:HDL Ratio 0.82 0.50 - 3.55 05/16/2015 6:55 PM EDT [facility] Non HDL Cholesterol 77(L) 90 - 159 mg/dL 05/16/2015 6:55 PM EDT [facility] Blood specimen (specimen) BLOOD SPECIMEN / Unknown 05/16/2015 10:42 AM EDT 05/16/2015 10:46 AM EDT us Warner Conde MD LABORATORY Final Result [facility] [address] [place] [address] from Last 3 Months or Most Recently Relevant to Health Maintenance Insurance MEDICARE [place]ICAID [place]
--- OUTSIDE RECORDS SUMMARY | 2025-03-25 07:12 | XMS_ITS | Clinical Summary ---
Author Organization [facility] Address [address] [place] [address] Phone Care Team Providers Care Exercise Physiologist Name Role Phone June Preston MD Unavailable Conchita Aden MD Primary Care Provider [phone] Allergies No known active allergies Medications lansoprazole [...] aspirin 81 mg EC tabletIndications:A therosclerosis of coquille coronary artery of coqu[place] heart without angina pectoris Take 1 tablet (81 mg) by mouth 2 times a week. 5 11/14/19 Active rosuvastatin (Crestor) 20 mg tabletIndications:A therosclerosis of coquille coronary artery of [place]qu[place] heart without angina pectoris,Mixed hyperlipidemia Take 1 tablet (20 mg) by mouth once daily. 90 tablet 3 5 11/11/19 Active spironolactone (Aldactone) 25 mg tabletIndications:E ssential hypertension Take 1 tablet (25 mg) by mouth once daily. 90 tablet 3 5 11/15/19 Active Invokana 300 mgIndications:Type 2 diabetes mellitus without complication, without long-term current use of insulin,Atheroscler osis of coquille coronary artery of [place]qu[place] heart without angina pectoris,Chronic systolic CHF (congestive heart failure) Take 1 tablet (300 mg) by mouth once daily in the morning. Take before meals. 90 tablet 3 5 11/21/19 Active ranolazine (Ranexa) 500 mg 12 hr tabletIndications:A therosclerosis of coquille coronary artery of [place]qu[place] heart without angina pectoris Take 1 tablet [...] i) 09/30/2023 Moderate persistent asthma without complication ([facility]) 09/30/2023 Oral thrush 09/30/2023 Oropharyngeal dysphagia 09/30/2023 Polyneuropathy due to type 2 diabetes mellitus ( Multi) 09/30/2023 Stable angina pectoris due t o arteriosclerosis of coronary artery 09/30/2023 Urge incontinence of urine 09/30/2023 Atherosclerosis of coquille co ronary artery of coquille heart without angina pectoris 07/29/2023 Chronic obstructive [...] bowel function Postoperative pain 05/23/2015 Overview (09/30/2023): CHILD ADOLESCENT PSYCHIATRIST pump and will transition to oral medication [...] - 03/09/2025 11:59 PM EDT Hospital Encounter [facility] [address] [place] [facility] [place] [phone] ICD (implantable cardioverter-defibr illator) in place; Paroxysmal ventricular tachycardia Discharge Disposition: Home 02/21/2025 Orders Only [facility] [address] [place] [address] Kervin Fair MD Chronic systolic CHF (congestive heart failure) (Primary Dx) 02/10/2025 Scanned Document [facility] [address] [place] [id number] Scanning, Generic Provider 02/07/2025 11:30 AM EDT Office Visit [facility] [address] [place] [address] Kervin Fair MD Ventricular tachycardia (Multi); ICD (implantable cardioverter-defibr illator) in place 02/07/2025 Travel 01/24/2025 Refill [facility] [address] [place] [address] Dia Lao, COMMODITIES MANAGER ICD (implantable cardioverter-defibr illator) discharge; Paroxysmal ventricular tachycardia (Multi) 01/19/2025 Telephone [facility] [address] [place] [address] Kervin Fair MD 01/16/2025 Patient Outreach [facility] [address] [place] [address] Diane Min, RN 01/12/2025 Telephone [facility] [address] [place] [address] Kervin Fair MD 01/09/2025 7:20 AM EDT - 01/09/2025 11:59 PM EDT Hospital Encounter [facility] [address] [place] [address] Ventricular tachycardia (Multi) Discharge Disposition: Home 01/08/2025 7:01 PM EDT - 01/14/2025 12:51 PM EDT Hospital Encounter [facility] 8 Cardiac Intensive Care [address] [place] [address] Otis Chappell, Yonis Manuel MD Sehgal, Ishwinder S, MD Orouji Jokar, Tahereh, MD Kaniecki, Dani Romero, PUBLICATIONS INSPECTOR-MACHINE OPERATOR GENERAL, DNP ICD (implantable cardioverter-defibr illator) discharge (Primary Dx); Paroxysmal ventricular tachycardia (Multi); Ventricular tachycardia (CMS/HCC); ICD (implantable cardioverter-defibr illator) in place; VT (ventricular tachycardia) (Multi) Discharge Disposition: Home Health Care - New 01/08/2025 Travel 01/06/2025 8:35 AM EST - 01/06/2025 11:59 PM EST Hospital Encounter [facility] [address] [place] [address] ICD (implantable cardioverter-defibr illator) in place; Paroxysmal ventricular tachycardia (Multi) Discharge Disposition: Home 01/02/2025 8:45 AM EST - 01/02/2025 11:59 PM EST Hospital Encounter [facility] [address] [place] [address] ICD (implantable cardioverter-defibr illator) in place; Paroxysmal [...] from your doctor or pharmacy? Never 01/08/2025 [facility] Utilities Answer Date Recorded In the past 12 months has e [employer] gas, oil, or water [employer] threatened to shut off services in your [...] week 01/08/2025 How often do you attend spiritism or orthodox serv ices? Patient declined 01/08/2025 Do you belong to any clubs o r organizations such as spiritism groups, unions, fraternal or athletic groups, or [...] Recorded Patient Health Questionnaire-2 Score 0 01/08/2025 [facility] - [...] any time in the past 12 m [facility], were you homeless or living in a skilled nursing (including now)? No 01/08/2025 Comments No Sex [...] Description 04/03/2025 1:00 PM EDT Hospital Encounter [facility] [address] [place] [address] 04/14/2025 10:30 AM EDT Hospital Encounter [facility] [address] [place] [address] Kervin Fair MD [address] [place] [address] Ventricular tachycardia (Multi) 04/14/2025 12:00 PM EDT - 04/14/2025 4:00 PM EDT Surgery [facility] [address] [place] [address] Kervin Fair MD [address] [place] [address] [place] [[address] (CPT )] 07/14/2025 1:00 PM EDT Office Visit [facility] [address] [facility] [address] [place] [address] Oscar Rodriguez MD [address] [facility] [address] [place] [address] 09/26/2025 12:20 PM EST Appointment [facility] [address] [place] [address] 09/26/2025 1:00 PM EST Office Visit [facility] [address] [facility] [address] [place] [address] June Preston MD [address] [facility] Office [facility], [facility] [address] [place] [address] Health Maintenance Due Date Last Done Comments [...] this topic Medical Devices Implanted Type Area Airline Lounge Receptionist Device Identifier Shelf Expiration Date Model / [...] June Preston MD CV IMPLANTABLE CARDIAC DEVICE MO OCEDURES Final Result * Nuclear Stress Test [...] Kervin Fair MD ECG ORDERABLES Final Result [facility] * POCT GLUCOSE (01/14/2025 10:38 AM EDT) POCT Glucose 90 74 - 99 mg/dL 01/14/2025 10:40 AM EDT [facility] Blood Capillary blood specimen / Unknown 01/14/2025 10:38 AM EDT 01/14/2025 10:40 AM EDT Gayle Max MD LAB POINT OF CAR E TEST DOCKED DEVICE UNSOLICITED RESULTS Final Result [facility] [address] [place] [address] * (ABNORMAL) POCT GLUCOSE (01/14/2025 6:29 AM EDT) POCT Glucose 100(H) 74 - 99 mg/dL 01/14/2025 6:31 AM EDT [facility] Blood Capillary blood specimen / Unknown 01/14/2025 6:29 AM EDT 01/14/2025 6:31 AM EDT Gayle Max MD LAB POINT OF CAR E TEST DOCKED DEVICE UNSOLICITED RESULTS Final Result Performing Organization Address [facility] Co de Phone Number [facility] [address] [place] [address] * Phosphorus (01/14/2025 5:22 AM EDT) Only the most recent of7 resultswithin the time period is included. Phosphorus 3.1 2.5 - 4.9 mg/dL LAB CHEMISTRY METHOD 01/14/2025 6:34 AM EDT [facility] Comment:The performance selena acteristics of phosphorus [...] Michelle MD LAB BLOOD ORDERABLES Final Result [facility] [address] [place] [address] * (ABNORMAL) Magnesium (01/14/2025 5:22 AM EDT) Only the most recent of7 resultswithin the time period is included. Magnesium 1.55(L) 1.60 - 2.40 mg/dL LAB CHEMISTRY METHOD 01/14/2025 6:34 AM EDT [facility] Blood Venous blood specimen / Unknown Venipuncture / Unknown 01/14/2025 5:22 AM EDT 01/14/2025 6:09 AM EDT us Srinivasa Michelle MD LAB BLOOD ORDERABLES Final Result [facility] [address] [place] [address] * (ABNORMAL) POCT GLUCOSE (01/13/2025 9:33 PM EDT) POCT Glucose 114(H) 74 - 99 mg/dL 01/13/2025 9:35 PM EDT [facility] Blood Capillary blood specimen / Unknown 01/13/2025 9:33 PM EDT 01/13/2025 9:35 PM EDT us Gayle Max MD LAB POINT OF CAR E TEST DOCKED DEVICE UNSOLICITED RESULTS Final Result [facility] [address] [place] [address] * POCT GLUCOSE (01/13/2025 4:22 PM EDT) POCT Glucose 90 74 - 99 mg/dL 01/13/2025 4:23 PM EDT [facility] Blood Capillary blood specimen / Unknown 01/13/2025 4:22 PM EDT 01/13/2025 4:23 PM EDT us Gayle Max MD LAB POINT OF CAR E TEST DOCKED DEVICE UNSOLICITED RESULTS Final Result Performing Organization Address [facility]/ZIP Co de Phone Number [facility] [address] [place] [address] * (ABNORMAL) POCT GLUCOSE (01/13/2025 11:05 AM EDT) POCT Glucose 106(H) 74 - 99 mg/dL 01/13/2025 11:07 AM EDT [facility] Blood Capillary blood specimen / Unknown 01/13/2025 11:05 AM EDT 01/13/2025 11:07 AM EDT us Gayle Max MD LAB POINT OF CAR E TEST DOCKED DEVICE UNSOLICITED RESULTS Final Result Performing Organization Address [facility] Co de Phone Number [facility] [address] [place] [address] * POCT GLUCOSE (01/13/2025 7:26 AM EDT) POCT Glucose 82 74 - 99 mg/dL 01/13/2025 7:27 AM EDT [facility] Blood Capillary blood specimen / Unknown 01/13/2025 7:26 AM EDT 01/13/2025 7:27 AM EDT us Gayle Max MD LAB POINT OF CAR E TEST DOCKED DEVICE UNSOLICITED RESULTS Final Result Performing Organization Address [facility] Co de Phone Number [facility] [address] [place] [address] * (ABNORMAL) Basic Metabolic Panel (01/13/2025 5:23 AM EDT) Only the most recent of3 resultswithin the time period is included. Glucose 80 74 - 99 mg/dL LAB CHEMISTRY METHOD 01/13/2025 6:28 AM EDT [facility] Sodium 132(L) 136 - 145 mmol/L LAB CHEMISTRY METHOD 01/13/2025 6:28 AM EDT [facility] Potassium 3.6 3.5 - 5.3 mmol/L LAB CHEMISTRY METHOD 01/13/2025 6:28 AM EDT [facility] Chloride 99 98 - 107 mmol/L LAB CHEMISTRY METHOD 01/13/2025 6:28 AM EDT [facility] Bicarbonate 27 21 - 32 mmol/L LAB CHEMISTRY METHOD 01/13/2025 6:28 AM EDT [facility] Anion Gap 10 10 - 20 mmol/L LAB CHEMISTRY METHOD 01/13/2025 6:28 AM EDT [facility] Urea Nitrogen 7 6 - 23 mg/dL LAB CHEMISTRY METHOD 01/13/2025 6:28 AM EDT [facility] Creatinine 0.44(L) 0.50 - 1.05 mg/dL LAB CHEMISTRY METHOD 01/13/2025 6:28 AM EDT [facility] eGFR >90 >60 mL/min/1. 73m*2 LAB CHEMISTRY METHOD 01/13/2025 6:28 AM EDT [facility] Comment: Calculations of estimated GFR are performed using the 2020 CKD-EPI Study Refit equation without the race variable for the IDMS-Traceable creatinine methods. https://jasn.asnjournals.org/content//ASN.0428040859 Calcium 8.2(L) 8.6 - 10.3 mg/dL LAB CHEMISTRY METHOD 01/13/2025 6:28 AM EDT [facility] Blood Venous blood specimen / Unknown Venipuncture / Unknown 01/13/2025 5:23 AM EDT 01/13/2025 5:54 AM EDT us Gayle Max MD LAB BLOOD ORDERABLES Fin al Result [facility] [address] [place] [address] * Lavender Top (01/13/2025 5:19 AM EDT) Extra Tube Hold for add-ons. 01/13/2025 7:01 AM EDT [facility] Comment:Auto resulted. Blood Venous blood specimen / Unknown 01/13/2025 5:19 AM EDT 01/13/2025 5:56 AM EDT us Gayle Max MD LAB BLOOD ORDERABLES Fin al Result [facility] [address] [place] [address] * POCT GLUCOSE (01/13/2025 12:27 AM EDT) POCT Glucose 89 74 - 99 mg/dL 01/13/2025 12:29 AM EDT [facility] Blood Capillary blood specimen / Unknown 01/13/2025 12:27 AM EDT 01/13/2025 12:29 AM EDT us Gayle Max MD LAB POINT OF CAR E TEST DOCKED DEVICE UNSOLICITED RESULTS Final Result Performing Organization Address [facility]/ZIP Co de Phone Number [facility] [address] [place] [address] * (ABNORMAL) POCT GLUCOSE (01/12/2025 7:39 PM EDT) [facility] POCT Glucose 157(H) 74 - 99 mg/dL 01/12/2025 7:41 PM EDT [facility] Blood Capillary blood specimen / Unknown 01/12/2025 7:39 PM EDT 01/12/2025 7:41 PM EDT us Gayle Max MD LAB POINT OF CAR E TEST DOCKED DEVICE UNSOLICITED RESULTS Final Result Performing Organization Address City/[facility]/ZIP Co de Phone Number [facility] [address] [place] [address] * POCT GLUCOSE (01/12/2025 4:08 PM EDT) POCT Glucose 92 74 - 99 mg/dL 01/12/2025 4:10 PM EDT [facility] Blood Capillary blood specimen / Unknown 01/12/2025 4:08 PM EDT 01/12/2025 4:10 PM EDT us Gayle Max MD LAB POINT OF CAR E TEST DOCKED DEVICE UNSOLICITED RESULTS Final Result [facility] [address] [place] [address] * POCT GLUCOSE (01/12/2025 11:02 AM EDT) POCT Glucose 93 74 - 99 mg/dL 01/12/2025 11:04 AM EDT [facility] Blood Capillary blood specimen / Unknown 01/12/2025 11:02 AM EDT 01/12/2025 11:04 AM EDT us Gayle Max MD LAB POINT OF CAR E TEST DOCKED DEVICE UNSOLICITED RESULTS Final Result Performing Organization Address [facility] Co de Phone Number [facility] [address] [place] [address] * (ABNORMAL) POCT GLUCOSE (01/12/2025 7:02 AM EDT) POCT Glucose 113(H) 74 - 99 mg/dL 01/12/2025 7:03 AM EDT [facility] Blood Capillary blood specimen / Unknown 01/12/2025 7:02 AM EDT 01/12/2025 7:03 AM EDT us Gayle Max MD LAB POINT OF CAR E TEST DOCKED DEVICE UNSOLICITED RESULTS Final Result Performing Organization Address City/[facility]/ZIP Co de Phone Number [facility] [address] [place] [address] * POCT GLUCOSE (01/12/2025 6:39 AM EDT) POCT Glucose 77 74 - 99 mg/dL 01/12/2025 6:40 AM EDT [facility] Blood Capillary blood specimen / Unknown 01/12/2025 6:39 AM EDT 01/12/2025 6:40 AM EDT us Gayle Max MD LAB POINT OF CAR E TEST DOCKED DEVICE UNSOLICITED RESULTS Final Result [facility] [address] [place] [address] * (ABNORMAL) CBC (01/12/2025 5:19 AM EDT) Only the most recent of4 resultswithin the time period is included. WBC 7.6 4.4 - 11.3 x10*3/uL LAB HEMATOLOGY METHOD 01/12/2025 6:13 AM EDT [facility] nRBC 0.0 0.0 - 0.0 /100 WBCs LAB HEMATOLOGY METHOD 01/12/2025 6:13 AM [facility] RBC 3.54(L) 4.00 - 5.20 x10*6/uL LAB HEMATOLOGY METHOD 01/12/2025 6:13 AM [facility] Hemoglobin 8.7(L) 12.0 - 16.0 g/dL LAB HEMATOLOGY METHOD 01/12/2025 6:13 AM EDT [facility] Hematocrit 26.1(L) 36.0 - 46.0 % LAB HEMATOLOGY METHOD 01/12/2025 6:13 AM [facility] MCV 74(L) 80 - 100 fL LAB HEMATOLOGY METHOD 01/12/2025 6:13 AM [facility] MCH 24.6(L) 26.0 - 34.0 pg LAB HEMATOLOGY METHOD 01/12/2025 6:13 AM [facility] MCHC 33.3 32.0 - 36.0 g/dL LAB HEMATOLOGY METHOD 01/12/2025 6:13 AM EDT [facility] RDW 17.1(H) 11.5 - 14.5 % LAB HEMATOLOGY METHOD 01/12/2025 6:13 AM EDT [facility] Platelets 244 150 - 450 x10*3/uL LAB HEMATOLOGY METHOD 01/12/2025 6:13 AM EDT [facility] Blood Venous blood specimen / Unknown Venipuncture / Unknown 01/12/2025 5:19 AM EDT 01/12/2025 6:06 AM EDT us Gayle Max MD LAB BLOOD ORDERABLES Fin al Result Performing Organization Address City/[facility]/ZIP Co de Phone Number [facility] [address] [place] [address] * POCT GLUCOSE (01/11/2025 8:48 PM EDT) POCT Glucose 98 74 - 99 mg/dL 01/11/2025 8:50 PM EDT [facility] Blood Capillary blood specimen / Unknown 01/11/2025 8:48 PM EDT 01/11/2025 8:50 PM EDT us Gayle Max MD LAB POINT OF CAR E TEST DOCKED DEVICE UNSOLICITED RESULTS Final Result Performing Organization Address [facility]/ZIP Co de Phone Number [facility] [address] [place] [address] * POCT GLUCOSE (01/11/2025 4:05 PM EDT) POCT Glucose 89 74 - 99 mg/dL 01/11/2025 4:07 PM EDT [facility] Blood Capillary blood specimen / Unknown 01/11/2025 4:05 PM EDT 01/11/2025 4:07 PM EDT us Gayle Max MD LAB POINT OF CAR E TEST DOCKED DEVICE UNSOLICITED RESULTS Final Result [facility] [address] [place] [address] * POCT GLUCOSE (01/11/2025 11:04 AM EDT) [facility] POCT Glucose 91 74 - 99 mg/dL 01/11/2025 11:06 AM EDT [facility] Blood Capillary blood specimen / Unknown 01/11/2025 11:04 AM EDT 01/11/2025 11:06 AM EDT Gayle Max MD LAB POINT OF CAR E TEST DOCKED DEVICE UNSOLICITED RESULTS Final Result Performing Organization Address [facility] Co de Phone Number [facility] [address] [place] [address] * Stool Pathogen Panel, PCR (01/11/2025 10:31 AM EDT) [facility] Campylobacter Group Not Detected Not Detected 01/12/2025 7:00 AM EDT [facility] Salmonella species Not Detected Not Detected 01/12/2025 7:00 AM EDT [facility] Shigella species Not Detected Not Detected 01/12/2025 7:00 AM EDT [facility] Vibrio Group Not Detected Not Detected 01/12/2025 7:00 AM EDT [facility] Yersinia Enterocolitica Not Detected Not Detected 01/12/2025 7:00 AM EDT [facility] Shiga Toxin 1 Not Detected Not Detected 01/12/2025 7:00 AM EDT [facility] Shiga Toxin 2 Not Detected Not Detected 01/12/2025 7:00 AM EDT [facility] Norovirus GI/GII Not Detected Not Detected 01/12/2025 7:00 AM EDT [facility] Rotavirus A Not Detected Not Detected 01/12/2025 7:00 AM EDT [facility] Stool Stool / Unknown 01/11/2025 1 0:31 AM EDT 01/11/2025 10:38 AM EDT us Gayle Max MD LAB MICROBIOLOGY - GENER AL ORDERABLES Final Result [facility] [address] [address] * (ABNORMAL) POCT GLUCOSE (01/11/2025 6:32 AM EDT) POCT Glucose 123(H) 74 - 99 mg/dL 01/11/2025 6:33 AM EDT [facility] Blood Capillary blood specimen / Unknown 01/11/2025 6:32 AM EDT 01/11/2025 6:33 AM EDT us Gayle Max MD LAB POINT OF CAR E TEST DOCKED DEVICE UNSOLICITED RESULTS Final Result Performing Organization Address City/[facility]/ZIP Co de Phone Number [facility] [address] [place] [address] * (ABNORMAL) POCT GLUCOSE (01/10/2025 11:36 PM EDT) POCT Glucose 115(H) 74 - 99 mg/dL 01/10/2025 11:38 PM EDT [facility] Blood Capillary blood specimen / Unknown 01/10/2025 11:36 PM EDT 01/10/2025 11:38 PM EDT us Gayle Max MD LAB POINT OF CAR E TEST DOCKED DEVICE UNSOLICITED RESULTS Final Result [facility] [address] [place] [address] * (ABNORMAL) POCT GLUCOSE (01/10/2025 7:46 PM EDT) POCT Glucose 108(H) 74 - 99 mg/dL 01/10/2025 7:48 PM EDT [facility] Blood Capillary blood specimen / Unknown 01/10/2025 7:46 PM EDT 01/10/2025 7:48 PM EDT us Gayle Max MD LAB POINT OF CAR E TEST DOCKED DEVICE UNSOLICITED RESULTS Final Result [facility] [address] [place] [address] * (ABNORMAL) POCT GLUCOSE (01/10/2025 2:44 PM EDT) [facility] POCT Glucose 108(H) 74 - 99 mg/dL 01/10/2025 2:46 PM EDT [facility] Blood Capillary blood specimen / Unknown 01/10/2025 2:44 PM EDT 01/10/2025 2:46 PM EDT us Gayle Max MD LAB POINT OF CAR E TEST DOCKED DEVICE UNSOLICITED RESULTS Final Result Performing Organization Address City/[facility]/ZIP Co de Phone Number [facility] [address] [place] [address] * Heparin Assay (01/10/2025 11:56 AM EDT) Only the most recent of5 resultswithin the time period is included. [facility] Heparin Unfractionated 0.3 See Comment Below for Therapeutic Ranges IU/mL LAB COAGULATION METHOD 01/10/2025 12:14 PM EDT [facility] Blood Venous blood specimen / Unknown Venipuncture / Unknown 01/10/2025 11:56 AM EDT 01/10/2025 11:59 AM EDT Narrative [facility] - 01/10/2025 12:14 PM EDT The therapeutic reference range for UFH may be either 0.3-0.6 IU/mL or 0.3-0.7 IU/mL based on the clinical setting for anticoagulant therapy and the associated nomogram used. For Heparin dosing guidelines based on clinical scenario and Heparin Assay results, please refer to local Pharmacy and the [facility] Guidelines for Anticoagulation Therapy available on the [facility] intranet at: [email or web address] es_fo r_[email or web address].[email or web address] us Gayle Max MD LAB BLOOD ORDERABLES Fin al Result [facility] [address] [place] [address] * POCT GLUCOSE (01/10/2025 10:54 AM EDT) POCT Glucose 79 74 - 99 mg/dL 01/10/2025 10:56 AM EDT [facility] Blood Capillary blood specimen / Unknown 01/10/2025 10:54 AM EDT 01/10/2025 10:56 AM EDT us Gayle Max MD LAB POINT OF CAR E TEST DOCKED DEVICE UNSOLICITED RESULTS Final Result Performing Organization Address [facility]/ZIP Co de Phone Number [facility] [address] [place] [address] * POCT GLUCOSE (01/10/2025 6:48 AM EDT) POCT Glucose 94 74 - 99 mg/dL 01/10/2025 6:49 AM EDT [facility] Blood Capillary blood specimen / Unknown 01/10/2025 6:48 AM EDT 01/10/2025 6:49 AM EDT us Gayle Max MD LAB POINT OF CAR E TEST DOCKED DEVICE UNSOLICITED RESULTS Final Result Performing Organization Address [facility]/ZIP Co de Phone Number [facility] [address] [place] [address] * (ABNORMAL) Comprehensive Metabolic Panel (01/10/2025 5:21 AM EDT) Only the most recent of3 resultswithin the time period is included. Glucose 84 74 - 99 mg/dL LAB CHEMISTRY METHOD 01/10/2025 6:46 AM [facility] Sodium 128(L) 136 - 145 mmol/L LAB CHEMISTRY METHOD 01/10/2025 6:46 AM [facility] Potassium 3.6 3.5 - 5.3 mmol/L LAB CHEMISTRY METHOD 01/10/2025 6:46 AM [facility] Chloride 95(L) 98 - 107 mmol/L LAB CHEMISTRY METHOD 01/10/2025 6:46 AM [facility] Bicarbonate 23 21 - 32 mmol/L LAB CHEMISTRY METHOD 01/10/2025 6:46 AM [facility] Anion Gap 14 10 - 20 mmol/L LAB CHEMISTRY METHOD 01/10/2025 6:46 AM [facility] Urea Nitrogen 11 6 - 23 mg/dL LAB CHEMISTRY METHOD 01/10/2025 6:46 AM [facility] Creatinine 0.61 0.50 - 1.05 mg/dL LAB CHEMISTRY METHOD 01/10/2025 6:46 AM [facility] eGFR >90 >60 mL/min/1. 73m*2 LAB CHEMISTRY METHOD 01/10/2025 6:46 AM [facility] Comment: Calculations of estimated GFR are performed using the 2020 CKD-EPI Study Refit equation without the race variable for the IDMS-Traceable creatinine methods. https://jasn.asnjournals.org/content///ASN.[id number] Calcium 8.0(L) 8.6 - 10.3 mg/dL LAB CHEMISTRY METHOD 01/10/2025 6:46 AM [facility] Albumin 2.9(L) 3.4 - 5.0 g/dL LAB CHEMISTRY METHOD 01/10/2025 6:46 AM [facility] Alkaline Phosphatase 35 33 - 136 U/L LAB CHEMISTRY METHOD 01/10/2025 6:46 AM [facility] Total Protein 5.7(L) 6.4 - 8.2 g/dL LAB CHEMISTRY METHOD 01/10/2025 6:46 AM [facility] AST 37 9 - 39 U/L LAB CHEMISTRY METHOD 01/10/2025 6:46 AM EDT [facility] Bilirubin, Total 0.2 0.0 - 1.2 mg/dL LAB CHEMISTRY METHOD 01/10/2025 6:46 AM EDT [facility] ALT 23 7 - 45 U/L LAB CHEMISTRY METHOD 01/10/2025 6:46 AM EDT [facility] Comment:Patients treated wit h Sulfasalazine may generate falsely decreased results for ALT. Blood Venous blood specimen / Unknown Venipuncture / Unknown 01/10/2025 5:21 AM EDT 01/10/2025 6:09 AM EDT us Srinivasa Michelle MD LAB BLOOD ORDERABLES Final Result [facility] [address] [place] [address] * POCT GLUCOSE (01/10/2025 5:08 AM EDT) POCT Glucose 93 74 - 99 mg/dL 01/10/2025 5:11 AM EDT [facility] Blood Capillary blood specimen / Unknown 01/10/2025 5:08 AM EDT 01/10/2025 5:11 AM EDT us Gayle Max MD LAB POINT OF CAR E TEST DOCKED DEVICE UNSOLICITED RESULTS Final Result Performing Organization Address City/[facility]/ZIP Co de Phone Number [facility] [address] [place] [address] * (ABNORMAL) POCT GLUCOSE (01/10/2025 12:39 AM EDT) POCT Glucose 104(H) 74 - 99 mg/dL 01/10/2025 12:42 AM EDT [facility] Blood Capillary blood specimen / Unknown 01/10/2025 12:39 AM EDT 01/10/2025 12:42 AM EDT us Gayle Max MD LAB POINT OF CAR E TEST DOCKED DEVICE UNSOLICITED RESULTS Final Result Performing Organization Address [facility]/ZIP Co de Phone Number [facility] [address] [place] [address] * POCT GLUCOSE (01/09/2025 9:17 PM EDT) POCT Glucose 91 74 - 99 mg/dL 01/09/2025 9:38 PM EDT [facility] Blood Capillary blood specimen / Unknown 01/09/2025 9:17 PM EDT 01/09/2025 9:38 PM EDT us Gayle Max MD LAB POINT OF CAR E TEST DOCKED DEVICE UNSOLICITED RESULTS Final Result Performing Organization Address [facility] Co de Phone Number [facility] [address] [place] [address] * POCT GLUCOSE (01/09/2025 6:56 PM EDT) POCT Glucose 81 74 - 99 mg/dL 01/09/2025 6:58 PM EDT [facility] Blood Capillary blood specimen / Unknown 01/09/2025 6:56 PM EDT 01/09/2025 6:58 PM EDT us Michelle Snowden MD LAB POINT OF CARE TEST DOCKED DEVICE UNSOLICITED RESULTS Final Result Performing Organization Address [facility]/ZIP Co de Phone Number [facility] [address] [place] [address] * (ABNORMAL) POCT GLUCOSE (01/09/2025 3:33 PM EDT) POCT Glucose 104(H) 74 - 99 mg/dL 01/09/2025 3:35 PM EDT [facility] Blood Capillary blood specimen / Unknown 01/09/2025 3:33 PM EDT 01/09/2025 3:35 PM EDT us Michelle Snowden MD LAB POINT OF CARE TEST DOCKED DEVICE UNSOLICITED RESULTS Final Result [facility] [address] [place] [address] * TRANSTHORACIC ECHO (TTE) COMPLETE WITH CONTRAST [...] Narrative SYNGO - 01/10/2025 8:51 AM EDT [address] [address] TRANSTHORACIC ECHOCARDIOGRAM REPORT Patient Name: KING Gregory Physician: [id number] Augustus Issa DO Study Date: 01/09/2025 Ordering Provider: [id number] DANI DODGE MRN/PID: [id number] Fellow: Nurse: Date of /Age: 1 1960 / 64 years Remote Control Mirror Installer: Gege Balbuena RDCS Gender Assigned at F Additional Staff: : Height: 157.48 cm Admit Date: 01/08/2025 Weight: 67.59 kg Admission Status: Inpatient - Routine BSA / BMI: 1.69 m2 / 27.25 Department Location: [facility] kg/m2 Blood Pressure: 101 /55 mmHg Study Type: TRANSTHORACIC ECHO (TTE) COMPLETE Diagnosis/ICD: Ventricular tachycardia, other-I47.29 Indication: Multiple ICD firings CPT Codes: Echo Complete w Full Doppler-[id number] Patient History: Pacer/Defib: AICD Pertinent History: HTN, [...] LA Area A2C: 19.2 cm2 LA Major Thornwood A4C: 6.3 cm LA Major [place] A2C: 5.7 cm LA Volume Index: 33.4 ml/m2 RIGHT ATRIUM: Normal Ranges: RA Vol A4C: 32.8 ml (8.3-19.5ml) RA Vol Index A4C: 19.4 ml/m2 RA Area A4C: 13.1 cm2 RA Major Thorn[place] A4C: 4.4 cm LV SYSTOLIC FUNCTION: Normal [...] 1.0 m/s (0.6-0.9m/s) PV Max P.9 mmHg [id number] Augustus Maegan SALAZAR Electronically signed on 01/10/2025 at 8:51:17 AM Wall Scoring Final Procedure Note Augustus Issa DO - 01/10/2025 [place] [address] TRANSTHORACIC ECHOCARDIOGRAM REPORT Patient Name: KING JOSH Reading Physician: Demario Negrete Study Date: 01/09/2025 Ordering Provider: [id number] JAMES DODGE MRN/PID: [id number] Fellow: Nurse: Date of /Age: 1 1960 / 64 years Remote Control Mirror Installer: Yana MURPHY Gender Assigned at F Additional Staff: : Height: 157.48 cm Admit Date: 01/08/2025 Weight: 67.59 kg Admission Status: Inpatient- Routine BSA / BMI: 1.69 m2 / 27.25 Department Location: [place] [address] Blood Pressure: 101 /55 mmHg Study Type: TRANSTHORACIC ECHO (TTE) COMPLETE Diagnosis/ICD: Ventricular tachycardia, other-I47.29 Indication: Multiple ICD firings CPT Codes: Echo Complete w Full Doppler-[id number] Patient History: Pacer/Defib: AICD Pertinent History: HTN, [...] LA Area A2C: 19.2 cm2 LA Major [place] A4C: 6.3 cm LA Major [place] A2C: 5.7 cm LA Volume Index: 33.4 ml/m2 RIGHT ATRIUM: Normal Ranges: RA Vol A4C: 32.8 ml (8.3-19.5ml) RA Vol Index A4C: 19.4 ml/m2 RA Area A4C: 13.1 cm2 RA Major Thornwood A4C: 4.4 cm LV SYSTOLIC FUNCTION: Normal [...] 1.0 m/s (0.6-0.9m/s) PV Max P.9 mmHg [id number] Augustus Issa DO Electronically signed on 01/10/2025 at 8:51:17 AM Wall Scoring Final us Srinivasa Michelle MD CV ECHO PROCEDURES Final Re sult Performing Organization Address City/[facility]/ZIP Co de Phone Number [facility] * (ABNORMAL) POCT GLUCOSE (01/09/2025 10:48 AM EDT) POCT Glucose 102(H) 74 - 99 mg/dL 01/09/2025 10:50 AM EDT [facility] Blood Capillary blood specimen / Unknown 01/09/2025 10:48 AM EDT 01/09/2025 10:50 AM EDT us Yonis Fishman MD LAB POINT OF CAR E TEST DOCKED DEVICE UNSOLICITED RESULTS Final Result [facility] [address] [place] [address] * SST TOP (01/09/2025 9:55 AM EDT) Only the most recent of2 resultswithin the time period is included. Pathologist [facility] Extra Tube Hold for add-ons. 01/09/2025 12:02 PM EDT [facility] Comment:Auto resulted. Blood Venous blood specimen / Unknown 01/09/2025 9:55 AM EDT 01/09/2025 10:31 AM EDT Yonis Fishman MD LAB BLOOD ORDERABLES Fin al Result Performing Organization Address City/[facility]/ZIP Co de Phone Number [facility] [address] [place] [address] * MRSA Surveillance for Vancomycin De-escalation, PCR (01/09/2025 12:34 AM EDT) [facility] MRSA PCR Not Detected Not Detected X_PERT XPRESS SARS-COV2_ CEPHEID_EU A 01/09/2025 2:04 AM EDT [facility] Swab (Anterior Nares) Non-blood Collection / Unknown 01/09/2025 12:34 AM EDT 01/09/2025 12:41 AM EDT Narrative [facility] - 01/09/2025 2:04 AM EDT This [...] ORD ERABLES Final Result Performing Organization Address City/[facility]/ZIP Co de Phone Number [facility] [address] [place] [address] * Streptococcus pneumoniae Antigen, Urine (01/08/2025 11:59 PM EDT) Streptococcus pneumoniae Ag, Urine Negative Negative 01/09/2025 11:55 AM EDT [facility] Urine Urine specimen / Unknown Non-blood Collection / Unknown 01/08/2025 11:59 PM EDT 01/09/2025 12:41 AM EDT Triny Sol PA-C LAB MICROBIOLOGY - GENERAL ORD ERABLES Final Result Performing Organization Address City/[facility]/ZIP Co de Phone Number [facility] [address] [place] [address] * Legionella Antigen, Urine (01/08/2025 11:59 PM EDT) L. pneumophila Urine Ag Negative Negative 01/09/2025 11:55 AM EDT [facility] Urine Urine specimen / Unknown Non-blood Collection / Unknown 01/08/2025 11:59 PM EDT 01/09/2025 12:41 AM EDT Triny Sol PA-C LAB MICROBIOLOGY - GENERAL ORD ERABLES Final Result Performing Organization Address City/[facility]/ZIP Co de Phone Number [facility] [address] [place] [address] * (ABNORMAL) Urinalysis with Reflex Microscopic (01/08/2025 11:59 PM EDT) Color, Urine Light-Yellow Light-Yellow , Yellow, Dark-Yellow 01/09/2025 1:17 AM EDT [facility] Appearance, Urine Clear Clear 01/09/2025 1:17 AM EDT [facility] Specific Bent[place], Urine 1.009 1.005 - 1.035 01/09/2025 1:17 AM EDT [facility] pH, Urine 5.0 5.0, 5.5, 6.0, 6.5, 7.0, 7.5, 8.0 01/09/2025 1:17 AM EDT [facility] Protein, Urine NEGATIVE NEGATIVE, 10 (TRACE), 20 (TRACE) mg/dL 01/09/2025 1:17 AM T [facility] Glucose, Urine OVER (4+)(A) Normal mg/dL 01/09/2025 1:17 AM EDT [facility] Blood, Urine NEGATIVE NEGATIVE mg/dL 01/09/2025 1:17 AM EDT [facility] Ketones, Urine NEGATIVE NEGATIVE mg/dL 01/09/2025 1:17 AM EDT [facility] Bilirubin, Urine NEGATIVE NEGATIVE mg/dL 01/09/2025 1:17 AM T [facility] Urobilinogen, Urine Normal Normal mg/dL 01/09/2025 1:17 AM T [facility] Nitrite, Urine NEGATIVE NEGATIVE 01/09/2025 1:17 AM T [facility] Leukocyte Esterase, Urine NEGATIVE NEGATIVE 01/09/2025 1:17 AM T [facility] Urine Urine specimen / Unknown Non-blood Collection / Unknown 01/08/2025 11:59 PM EDT 01/09/2025 12:41 AM EDT [facility] - 01/09/2025 1:17 AM EDT OVER is reported when the result is greater than the clinically reportable range. us Triny Sol PA-C LAB URINE ORDERABLES Final Res ult [facility] [address] [place] [address] * VERIFY ABO/Rh Group Test (01/08/2025 10:39 PM EDT) ABO TYPE A 01/08/2025 10:56 PM EDT [facility] Rh TYPE POS 01/08/2025 10:56 PM EDT [facility] Blood Venous blood specimen / Unknown Venipuncture / Unknown 01/08/2025 10:39 PM EDT 01/08/2025 10:43 PM EDT Otis Parekh Ta [facility] TEST ORDERAB LES Final Result Performing Organization Address City/[facility]/ZIP Co de Phone Number [facility] [address] [place] [address], * (ABNORMAL) POCT GLUCOSE (01/08/2025 10:38 PM EDT) [facility] POCT Glucose 106(H) 74 - 99 mg/dL 01/08/2025 10:39 PM EDT [facility] Blood Capillary blood specimen / Unknown 01/08/2025 10:38 PM EDT 01/08/2025 10:39 PM EDT [facility] POINT OF CARE T EST DOCKED DEVICE UNSOLICITED RESULTS Final Result Performing Organization Address City/[facility]/ZIP Co de Phone Number [facility] [address] [place] [address] * (ABNORMAL) Procalcitonin (01/08/2025 9:34 PM EDT) [facility] Procalcitonin 0.39(H) <=0.07 ng/mL LAB CHEMISTRY METHOD 01/09/2025 11:53 AM EDT [facility] Blood Venous blood specimen / Unknown Venipuncture / Unknown 01/08/2025 9:34 PM EDT 01/08/2025 9:38 PM EDT Narrative [facility] - 01/09/2025 11:53 AM EDT Procalcitonin [...] PA-C LAB BLOOD ORDERABLES Final Res ult [facility] [id number] [place] [address] * RSV PCR (01/08/2025 9:33 PM EDT) Pathologist [facility] RSV PCR Not Detected Not Detected X_PERT XPRESS SARS-COV2_ CEPHEID_EU A 01/08/2025 11:23 PM EDT [facility] Swab Nasopharyngeal swab / Unknown Non-blood Collection / Unknown 01/08/2025 9:33 PM EDT 01/08/2025 10:43 PM EDT [facility] - 01/08/2025 11:23 PM EDT This assay is an FDA-cleared, in vitro diagnostic nucleic acid amplification test for the detection of RSV from nasopharyngeal specimens, and has been validated for use at [facility]. Negative results do not preclude RSV infections, and should not be used as the sole basis for diagnosis, treatment, or other management decisions. If Influenza A/B and RSV PCR results are negative, testing for Parainfluenza virus, Adenovirus and Metapneumovirus is routinely performed for pediatric oncology and intensive care inpatients at [facility], and is available on other patients by placing an add-on request. [facility] DANYEL GOMEZ Final Result Performing Organization Address City/[facility]/ZIP Co de Phone Number [facility] [address] [place] [address] * (ABNORMAL) Sars-CoV-2 and Influenza A/B PCR (01/08/2025 9:33 PM EDT) [facility] Flu A Result Detected(A) Not Detected X_PERT XPRESS SARS-COV2 _CEPHEID_ EUA 01/08/2025 11:23 PM EDT [facility] Flu B Result Not Detected Not Detected X_PERT XPRESS SARS-COV2 _CEPHEID_ EUA 01/08/2025 11:23 PM EDT [facility] Coronavirus 2019, PCR Not Detected Not Detected X_PERT XPRESS SARS-COV2 _CEPHEID_ EUA 01/08/2025 11:23 PM EDT [facility] Swab Nasopharyngeal swab / Unknown Non-blood Collection / Unknown 01/08/2025 9:33 PM EDT 01/08/2025 10:43 PM EDT [facility] - 01/08/2025 11:23 PM EDT This assay is an FDA-cleared, in vitro diagnostic nucleic acid amplification test for the qualitative detection and differentiation of SARS CoV-2/ Influenza A/B from nasopharyngeal specimens collected from individuals with signs and symptoms of respiratory tract infections, and has been validated for use at [facility]. Negative results do not preclude COVID-19/ Influenza A/B infections and should not be used as the sole basis for diagnosis, treatment, or other management decisions. Testing for SARS CoV-2 is recommended only for patients who meet current clinical and/or epidemiological criteria defined by federal, state, or local public health directives. Triny Sol PA-C [facility] DANYEL GOMEZ Final Result [facility] [address] [place] [address] * Staphylococcus aureus/MRSA colonization, Culture (01/08/2025 9:33 PM EDT) [facility] Staph/MRSA Screen Culture No Staphylococcus aureus isolated 01/10/2025 11:36 AM EDT [facility] Swab (Anterior Nares) Non-blood Collection / Unknown 01/08/2025 9:33 PM EDT 01/08/2025 10:43 PM EDT Triny Sol PA-C LAB MICROBIOLOGY - GENERAL ORD ERABLES Final Result [facility] [address] [place] [address] * Blood Culture (01/08/2025 8:47 PM EDT) Blood Culture No growth at 4 days - FINAL REPORT AUTOMATED MICROBIAL DETECTION SYSTEM (VIRTUO) 01/13/2025 3:02 AM EDT [facility] Blood culture Venous blood specimen / Unknown Blood Culture / Unknown 01/08/2025 8:47 PM EDT 01/08/2025 8:51 PM EDT Triny JOSEPHC LAB MICROBIOLOGY - GENERAL ORD ERABLES Final Result Performing Organization Address [facility]/ZIP Co de Phone Number [facility] [address] [place] [address] * Lactate (01/08/2025 8:47 PM EDT) Lactate 1.0 0.4 - 2.0 mmol/L LAB CHEMISTRY METHOD 01/08/2025 9:11 PM EDT [facility] Blood Venous blood specimen / Unknown Venipuncture / Unknown 01/08/2025 8:47 PM EDT 01/08/2025 8:51 PM EDT Narrative [facility] - 01/08/2025 9:11 PM EDT Venipuncture immediately after or during the administration of Metamizole may lead to falsely low results. Testing should be performed immediately prior to Metamizole dosing. Triny JOSEPHC LAB BLOOD ORDERABLES Final Res ult [facility] [address] [place] [address] * (ABNORMAL) Troponin, High Sensitivity, 1 Hour (01/08/2025 8:46 PM EDT) [facility] Troponin I, High Sensitivity 28(H) 0 - 13 ng/L LAB IMMUNOASSAY METHOD 01/08/2025 9:19 PM EDT [facility] Blood Venous blood specimen / Unknown Venipuncture / Unknown 01/08/2025 8:46 PM EDT 01/08/2025 8:51 PM EDT [facility] - 01/08/2025 9:19 PM EDT [...] performed using a different testing methodology at [facility] than at other [facility]. Direct result comparisons should only be made within the same method. Dani Dodge PUBLICATIONS INSPECTOR-MACHINE OPERATOR GENERAL, DNP LAB BLOOD ORDERAB LES Final Result [facility] [address] [place] [address] * BB ORDER ONLY - Antibody Identification (01/08/2025 8:46 PM EDT) [facility] Antibody ID Anti-c and Inconclusive 01/11/2025 2:26 PM EDT [facility] CASE # 01/11/2025 2:26 PM EDT [facility] Blood Venous blood specimen / Unknown Venipuncture / Unknown 01/08/2025 8:46 PM EDT 01/08/2025 8:51 PM EDT [facility] TEST ORDERABLES Final Result Performing Organization Address [facility] Co de Phone Number [facility] [address] [place] [address], * Type and screen (01/08/2025 8:46 PM EDT) ABO TYPE A 01/08/2025 9:38 PM EDT [facility] Rh TYPE POS 01/08/2025 9:38 PM EDT [facility] ANTIBODY SCREEN POS 9:38 PM EDT [facility] Blood Venous blood specimen / Unknown Venipuncture / Unknown 01/08/2025 8:46 PM EDT 01/08/2025 8:51 PM EDT Triny [facility] [employer] [facility] TEST ORDERABLES Final Result Performing Organization Address [facility] de Phone Number [facility] [address] [place] [address], * XR chest 1 view (01/08/2025 8:06 PM EDT) Anatomical Region Laterality Modality Thoracic, Chest Computed Radiogr aphy 01/08/2025 8:19 PM EDT 01/08/2025 8:19 PM EDT Impressions 01/08/2025 8:17 PM EDT Right-sided airspace consolidation, as above. Clinical correlation and continued follow-up until clearing is recommended. MACRO: None. Signed by: Deion Bonilla 01/08/2025 8:17 PM Dictation workstation: [id number] Narrative 01/08/2025 8:17 PM EDT Interpreted By: Deion Bonilla, STUDY: XR CHEST 1 VIEW 01/08/2025 8:06 pm INDICATION: Signs/Symptoms:increased O2 COMPARISON: 09/01/2024 ACCESSION NUMBER(S): [id number] ORDERING CLINICIAN: TRINY SOL TECHNIQUE: A single [...] INDICATION: Signs/Symptoms:increased O2 COMPARISON: 09/01/2024 ACCESSION NUMBER(S): [id number] ORDERING CLINICIAN: TRINY SOL TECHNIQUE: A single [...] Deion Bonilla 01/08/2025 8:17 PM Dictation workstation: [id number] Triny Sol PA-C IMG XR PROCEDURES Final Result * (ABNORMAL) CBC and Auto Differential (01/08/2025 7:21 PM EDT) WBC 17.1(H) 4.4 - 11.3 x10*3/uL LAB HEMATOLOGY METHOD 01/08/2025 7:28 PM EDT [facility] nRBC 0.1(H) 0.0 - 0.0 /100 WBCs LAB HEMATOLOGY METHOD 01/08/2025 7:28 PM EDT [facility] RBC 4.09 4.00 - 5.20 x10*6/uL LAB HEMATOLOGY METHOD 01/08/2025 7:28 PM EDT [facility] Hemoglobin 10.4(L) 12.0 - 16.0 g/dL LAB HEMATOLOGY METHOD 01/08/2025 7:28 PM [facility] Hematocrit 30.7(L) 36.0 - 46.0 % LAB HEMATOLOGY METHOD 01/08/2025 7:28 PM [facility] MCV 75(L) 80 - 100 fL LAB HEMATOLOGY METHOD 01/08/2025 7:28 PM [facility] MCH 25.4(L) 26.0 - 34.0 pg LAB HEMATOLOGY METHOD 01/08/2025 7:28 PM [facility] MCHC 33.9 32.0 - 36.0 g/dL LAB HEMATOLOGY METHOD 01/08/2025 7:28 PM [facility] RDW 16.6(H) 11.5 - 14.5 % LAB HEMATOLOGY METHOD 01/08/2025 7:28 PM [facility] Platelets 218 150 - 450 x10*3/uL LAB HEMATOLOGY METHOD 01/08/2025 7:28 PM [facility] Neutrophils % 84.0 40.0 - 80.0 % LAB HEMATOLOGY METHOD 01/08/2025 7:28 PM [facility] Immature Granulocytes %, Automated 0.4 0.0 - 0.9 % LAB HEMATOLOGY METHOD 01/08/2025 7:28 PM [facility] Comment:Immature Granulocyte Count (IG) includes promyelocytes, myelocytes and metamyelocytes but does not include bands. Percent differential counts (%) should be interpreted in the context of the absolute cell counts (cells/UL). Lymphocytes % 10.6 13.0 - 44.0 % LAB HEMATOLOGY METHOD 01/08/2025 7:28 PM [facility] Monocytes % 4.8 2.0 - 10.0 % LAB HEMATOLOGY METHOD 01/08/2025 7:28 PM [facility] Eosinophils % 0.0 0.0 - 6.0 % LAB HEMATOLOGY METHOD 01/08/2025 7:28 PM [facility] Basophils % 0.2 0.0 - 2.0 % LAB HEMATOLOGY METHOD 01/08/2025 7:28 PM [facility] Neutrophils Absolute 14.38(H) 1.20 - 7.70 x10*3/uL LAB HEMATOLOGY METHOD 01/08/2025 7:28 PM EDT [facility] Comment:Percent differential counts (%) should be interpreted in the context of the absolute cell counts (cells/uL). Immature Granulocytes Absolute, Automated 0.07 0.00 - 0.70 x10*3/uL LAB HEMATOLOGY METHOD 01/08/2025 7:28 PM EDT [facility] Lymphocytes Absolute 1.82 1.20 - 4.80 x10*3/uL LAB HEMATOLOGY METHOD 01/08/2025 7:28 PM EDT [facility] Monocytes Absolute 0.83 0.10 - 1.00 x10*3/uL LAB HEMATOLOGY METHOD 01/08/2025 7:28 PM EDT [facility] Eosinophils Absolute 0.00 0.00 - 0.70 x10*3/uL LAB HEMATOLOGY METHOD 01/08/2025 7:28 PM EDT [facility] Basophils Absolute 0.03 0.00 - 0.10 x10*3/uL LAB HEMATOLOGY METHOD 01/08/2025 7:28 PM EDT [facility] Blood Venous blood specimen / Unknown Venipuncture / Unknown 01/08/2025 7:21 PM EDT 01/08/2025 7:26 PM EDT us Dani Dodge PUBLICATIONS INSPECTOR-MACHINE OPERATOR GENERAL, DNP LAB BLOOD ORDERAB LES Final Result [facility] [address] [place] [address] * (ABNORMAL) Troponin I, High Sensitivity, Initial (01/08/2025 7:21 PM EDT) Troponin I, High Sensitivity 29(H) 0 - 13 ng/L LAB IMMUNOASSAY METHOD 01/08/2025 7:52 PM EDT [facility] Blood Venous blood specimen / Unknown Venipuncture / Unknown 01/08/2025 7:21 PM EDT 01/08/2025 7:26 PM EDT Narrative [facility] - 01/08/2025 7:52 PM EDT Less [...] performed using a different testing methodology at [facility] than at other [facility]. Direct result comparisons should only be made within the same method. us Dani Dodge PUBLICATIONS INSPECTOR-MACHINE OPERATOR GENERAL, DNP LAB BLOOD ORDERAB LES Final Result Performing Organization Address [facility]/ZIP Co de Phone Number [facility] [address] [place] [address] * TSH with reflex to Free T4 if abnormal (01/08/2025 7:21 PM EDT) Thyroid Stimulating Hormone 2.12 0.44 - 3.98 mIU/L LAB IMMUNOASSAY METHOD 01/08/2025 8:19 PM EDT [facility] Blood Venous blood specimen / Unknown Venipuncture / Unknown 01/08/2025 7:21 PM EDT 01/08/2025 7:26 PM EDT [facility] - 01/08/2025 8:19 PM EDT TSH testing is performed using different testing methodology at [facility] than at other [facility]. Direct result comparisons should only be made within the same method. us Triny Sol PA-C LAB BLOOD ORDERABLES Final Res ult Performing Organization Address City/[facility]/ZIP Co de Phone Number [facility] [address] [place] [address] * Coagulation Screen (01/08/2025 7:21 PM EDT) [facility] Protime 10.9 9.8 - 12.4 seconds LAB COAGULATION METHOD 01/08/2025 7:39 PM EDT [facility] INR 1.0 0.9 - 1.1 LAB COAGULATION METHOD 01/08/2025 7:39 PM EDT [facility] aPTT 28 26 - 36 seconds LAB COAGULATION METHOD 01/08/2025 7:39 PM EDT [facility] Blood Venous blood specimen / Unknown Venipuncture / Unknown 01/08/2025 7:21 PM EDT 01/08/2025 7:26 PM EDT [facility] - 01/08/2025 7:39 PM EDT The APTT is no longer used for monitoring Unfractionated Heparin Therapy. For monitoring Heparin Therapy, use the Heparin Assay. us Dani Dodge PUBLICATIONS INSPECTOR-MACHINE OPERATOR GENERAL, DNP LAB BLOOD ORDERAB LES Final Result [facility] [address] [place] [address] * (ABNORMAL) B-type natriuretic peptide (01/08/2025 7:21 PM EDT) [facility] BNP 106(H) 0 - 99 pg/mL LAB IMMUNOASSAY METHOD 01/08/2025 8:16 PM EDT [facility] Blood Venous blood specimen / Unknown Venipuncture / Unknown 01/08/2025 7:21 PM EDT 01/08/2025 7:26 PM EDT Narrative [facility] - 01/08/2025 8:16 PM EDT <100 pg/mL - Heart failure unlikely 100-299 pg/mL - Intermediate probability of acute heart failure exacerbation. Correlate with clinical context and patient history. >=300 pg/mL - Heart Failure likely. Correlate with clinical context and patient history. BNP testing is performed using different testing methodology at [facility] than at other [facility]. Direct result comparisons should only be made within the same method. us Triny Sol PA-C LAB BLOOD ORDERABLES Final Res ult [facility] [address] [place] [address] * Hemoglobin A1c (01/08/2025 7:21 PM EDT) Hemoglobin A1C 5.5 See comment % 025 11:45 PM EDT [facility] Estimated Average Glucose 111 Not Established mg/dL 01/08/2025 11:45 PM EDT [facility] Blood Venous blood specimen / Unknown Venipuncture / Unknown 01/08/2025 7:21 PM EDT 01/08/2025 7:26 PM EDT Narrative [facility] - 01/08/2025 11:45 PM EDT Diagnosis of Diabetes-Adults Non-Diabetic: < or = 5.6% Increased risk for developing diabetes: 5.7-6.4% Diagnostic of diabetes: > or = 6.5% Triny Sol PA-C LAB BLOOD ORDERABLES Final Res ult [facility] [address] [address] from Last 3 Months Insurance MEDICAID Member Subscriber Plan / Payer (Ef fective 2017-Present) Name:King Martinez Relation to Subscriber:Self Name:King Martinez Payer ID:Not on file Group ID:Not on file Type:Not on file Address: [address] DUAL ADVANTAGE MEDICAID ANTHEM DUAL ADVANTAGE Advance Directives For more information, please contact: [phone] (Available ) * Full Code (Latest Code Status on File) Date Activated Date Inactivated Comments 11/26/2023 6:41 AM Question Answer Comments Plan of Care: Code Status Discussion Not Compl eted Decision Maker: Provider Rationale: Patient condition does not warra nt discussion Care Teams Exercise Physiologist Relationship Specialty Start Date End Date Conchita Aden MD [address] [place] [address] [place] [address] PCP - General Family Medicine 11/11/24 June Preston MD [address] [facility] Medical Office Bldg, [address] [place] [address] Carpet Loom Fixer Electrophysiology 09/13/24
--- OUTSIDE RECORDS SUMMARY | 2025-03-25 07:12 | XMS_ITS | Encounter Summary ---
Author Organization [facility] Address [address] [place] [address] Phone Care Team Providers Care Wafer Batter Mixer Name Role Phone Tremaine West DO Primary Care Provider Ania Brothers ACTIVITY AIDE-FINE ARTS MODEL Unavailable Unavailable June Preston MD Unavailable Sol Keita COLOR ADVISER Unavailable [phone] June Preston MD Unavailable Oscar Rodriguez MD Unavailable [phone] Generic Provider, No Assigned Pcp Primary Car e Provider Unavailable Diane Min RN Unavailable Unavailable June Preston MD Unavailable Conchita Aedn MD Primary Care Provider [phone] Diane Min RN Unavailable Unavailable Encounter Details Date Type Department Care Team (Late st Contact Info) Description 07/23/2023 Scanned Document [facility] LE[facility]Y [address] [place] [address] Conversion, Onbase Social History Tobacco Use Types [...] Description 04/03/2025 1:00 PM EDT Hospital Encounter [facility] [address] [place] [address] 04/14/2025 10:30 AM EDT Hospital Encounter [facility] [address] [facility] [address] [place] [address] Kervin Fair MD [address] [place] [address] Ventricular tachycardia (Multi) 04/14/2025 12:00 PM EDT - 04/14/2025 4:00 PM EDT Surgery [facility] [address] [facility] [address] [place] [address] Kervin Fair MD [address] [place] [address] [place] [[address] (CPT )] 07/14/2025 1:00 PM EDT Office Visit [facility] 703 [facility] [address] [place] [address] Oscar Rodriguez MD 703 [facility] 2, [address] [place] [address] 09/26/2025 12:20 PM EST Appointment [facility] [address] [place] [address] 09/26/2025 1:00 PM EST Office Visit [facility] [address] [facility] [address] [place] [address] June Preston MD [address] [facility] Office [facility], [address] [place] [address] documented as of this encounter Procedures Procedure [...] documented as of this encounter Care Teams Wafer Batter Mixer Relationship Specialty Start Date End Date Tremaine West DO [address] Amor West DO [address] [address] PCP - General 01/22/22 11/05/23 Generic Provider, No Assigned [place]cp, [place] [address] PCP - General Extractor Loader And Unloader 08/08/24 11/10/24 Conchita Aden MD [address] [place] [address] [place] [address] PCP - General Family Medicine 11/11/24 Ania Brothers, ACTIVITY AIDE-FINE ARTS MODEL [address] West DO [address] [place] [address] Nurse Practitioner Cardiology 09/30/23 02/16/24 June Preston MD [address] Amor West DO [address] [address] Vending Service Technician Cardiology 09/30/23 02/16/24 Sol Keita, COLOR ADVISER Assembler Type Bar And SegmentC++ Quant Developer 02/19/24 05/17/24 June Preston MD [address] [facility], [address] [place] [address] Consulting Physician Cardiology 02/19/24 02/29/24 sOcar Rodriguez MD 703 [facility] 2, [address] [place], [place] [address] Consulting Physician Cardiology 02/19/24 02/29/24 Diane Min, computer publisherC++ Quant Developer 09/05/24 12/06/24 June Preston MD [address] [facility], [address] [place] [address] Vending Service Technician Electrophysiology 09/13/24 Diane Min, computer publisherC++ Quant Developer 01/16/25 01/31/25 documented as of this encounter
--- OUTSIDE RECORDS SUMMARY | 2025-03-25 07:12 | XMS_ITS | Encounter Summary ---
Author Organization [facility] Address [address] [place] [address] Phone Care Team Providers Care Teleservices Representative Name Role Phone Generic Provider, No Assigned Pcp Primary Car e Provider Unavailable Diane Min RN Unavailable Unavailable June Preston MD Unavailable Conchita Aden MD Primary Care Provider [phone] Diane Min RN Unavailable Unavailable Encounter Details Date Type Department Care Team (Late st Contact Info) Description 11/05/2024 Scanned Document [facility] [address] [place] [address] Scanning, Generic Provider Social History [...] Description 04/03/2025 1:00 PM EDT Hospital Encounter [facility] [address] [place] [address] 04/14/2025 10:30 AM EDT Hospital Encounter [facility] [place] [address] [place] [address] Kervin Fair MD [facility] [place] [address] Ventricular tachycardia (Multi) 04/14/2025 12:00 PM EDT - 04/14/2025 4:00 PM EDT Surgery [facility] [place] [address] [place] [address] Kervin Fair MD [address] [place] [address] [place] [[address] (CPT )] 07/14/2025 1:00 PM EDT Office Visit [facility] 703 [facility] [address] [place] [address] Oscar Rodriguez MD 703 [facility], [address] [place] [address] 09/26/2025 12:20 PM EST Appointment [facility] [address] [place] [address] 09/26/2025 1:00 PM EST Office Visit [facility] [address] [facility] [address] [place] [address] June Preston MD [address] [facility] Office Bldg, Steve [address] [place] [address] documented as of this encounter Visit Diagnoses [...] documented as of this encounter Care Teams Teleservices Representative Relationship Specialty Start Date End Date Generic Provider, No Assigned Pcp, [place] [address] PCP - General Skill Labor 08/08/24 11/10/24 Conchita Aden MD [address] [place] [address] [place] [address] PCP - General Family Medicine 11/11/24 Diane Min RN Care Press Clipper 09/05/24 12/06/24 June Preston MD [address] [facility] Bldg, [address] [place] [address] General Manager Food Electrophysiology 09/13/24 Diane Min, seed yeast operatorPress Clipper 01/16/25 01/31/25 documented as of this encounter
--- OUTSIDE RECORDS SUMMARY | 2025-03-25 07:12 | XMS_ITS | Encounter Summary ---
Author Organization [facility] Address [address] [place] [address] Phone Care Team Providers Care Paperback Machine Operator Name Role Phone June Preston MD Unavailable Conchita Aden MD Primary Care Provider [phone] Encounter Details Date Type Department Care Team (Late st Contact Info) Description 02/10/[address] [facility] [address] [place] [address] Scanning, Generic Provider Social History Tobacco Use [...] from your doctor or pharmacy? Never 01/08/2025 [facility] Utilities Answer Date Recorded In the past 12 months has e [employer] gas, oil, or water [employer] threatened to shut off services in your [...] week 01/08/2025 How often do you attend adventism or yarsanism serv ices? Patient declined 01/08/2025 Do you belong to any clubs o r organizations such as adventism groups, unions, fraternal or athletic groups, or [...] Recorded Patient Health Questionnaire-2 Score 0 01/08/2025 [facility] - Occupational Stress [...] place to sleep or slept in a snf (including now)? No 02/16/2024 Housing Stability Vital Sign Answer Mookie e Recorded In the last 12 months, was t here a time when you were not able to pay the mortgage or rent on time? No 01/08/2025 In the past 12 months, how m any times have you moved where you were living? 1 01/08/2025 At any time in the past 12 m [facility], were you homeless or living in a snf (including now)? No 01/08/2025 Comments No Sex [...] 04/03/2025 1:00 PM EDT Hospital Encounter [facility] [address] [place] [address] 04/14/2025 10:30 AM EDT Hospital Encounter [facility] [address] [place] [address] [place] [address] Kervin Fair MD [address] [place] [address] Ventricular tachycardia (Multi) 04/14/2025 12:00 PM EDT - 04/14/2025 4:00 PM EDT Surgery [facility] [address] [place] [address] [place] [address] Kervin Fair MD [address] [place] [address] [place] [[address] (CPT )] 07/14/2025 1:00 PM EDT Office Visit [facility] 703 [facility] [address] [place] [address] Oscar Rodriguez MD 703 [facility] 2, [address] [place] [address] 09/26/2025 12:20 PM EST Appointment [facility] [address] [place] [address] 09/26/2025 1:00 PM EST Office Visit [facility] [address] [facility] [address] [place] [address] June Preston MD [address] [facility] Office [facility], [address] [place] [address] documented as of this encounter Procedures Procedure [...] documented as of this encounter Care Teams Paperback Machine Operator Relationship Specialty Start Date End Date Conchita Aden MD [address] [place] [address] [place] [address] PCP - General Family Medicine 11/11/24 June Preston MD [address] [facility] Medical Office Bldg, [address] [place] [address] Girls Swimming Coach Electrophysiology 09/13/24 documented as of this encounter
--- OUTSIDE RECORDS SUMMARY | 2025-03-25 07:12 | XMS_ITS | Encounter Summary ---
Author Organization [facility] Address [address] [place] [address] Care Team Providers Care Retread Mold Operator Name Role Phone Conchita Aden MD Primary Care Provider [phone] Encounter Details Date Type Department Care Team (Late Contact Info) Description 10/22/2024 Abstract [facility] OB [address] [facility] [address] David Ewing, DO [address] [facility] [address] Sven Obando, [facility]11 Social History Tobacco Use Types Packs/Day [...] on filedocumented in this encounter Care Teams Retread Mold Operator Relationship Specialty Start Date End Date Conchita Aden MD PCP - General Family Medicine 11/07/24 documented as of this encounter
--- OUTSIDE RECORDS SUMMARY | 2025-03-25 07:12 | XMS_ITS | Patient Health Record ---
Author Organization [facility] Address [address] [place] [address] Care Team Providers Care Equip Maint Eng Name Role Phone Darcie Garcia Primary Care Provider Janna Jackson Unavailable [phone] Nicole Benson Unavailable [phone] Sal Harris Unavailable [phone] Wilson Isabel Unavailable [phone] Abdiel Kennedy Unavailable [phone] Emmanuel Stratton Unavailable [phone] Allergies No Known Allergies Reason For Referral [...] 30 years. Lives with sister. + ETOH and smoking. 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) Active confirmed Problem 575575757 Other intervertebral disc degeneration, lumbar region (M51.36) Active confirmed Problem 38467801 Urge incontinenc e (N39.41) Active confirmed Problem 21464568 Anxiety (F41.9) Active confirmed Problem 713124607 Bipolar 1 disord er (F31.9) Active confirmed Problem 313616134103231 Obesity (BMI 30.0-34.9) (E66.9) Active confirmed Problem 47387080 Paresthesias (R20.2) Active confirmed Problem 01803466 Chronic obstruct vesna pulmonary disease, unspecified COPD type (J44.9) Active confirmed Problem 168208667 Gastroesophageal reflux disease without esophagitis (K21.9) Active confirmed Problem 63547508 Atrial fibrillation, unspecified type (I48.91) Active confirmed Problem 36644402 Oral thrush (B37.0) Active confirmed Problem 14067493 Hypertension, unspecified type (I10) Active confirmed Problem 445712776 Moderate persist ent asthma, unspecified whether complicated (J45.40) Active confirmed Problem Body mass index 30+ - obesity (156524612) BMI 30.0-30.9,adult (Z68.30) Active confirmed Problem 09854141 Type 2 diabetes mellitus with diabetic polyneuropathy, unspecified whether snf insulin use (E11.42) Active confirmed Problem 04092163 Oropharyngeal dysphagia (R13.12) Active confirmed Problem Mixed bipolar affective disorder, moderate (275496436) Bipolar mixed affective disorder, moderate (F31.62) Active confirmed Problem 44838612 Anticoagulated o n Coumadin (Z79.01) Active confirmed Problem 77811881 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, unspecified vessel [...] Encounter Location Date Provider Diagnosis [facility] [address] [place] [address] 03/25/2024 Darcie Garcia Type 2 diabetes norah itus with diabetic polyneuropathy, unspecified whether ferry terminal agent insulin use E11.42 and 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, unspecified vessel or lesion type I25.118 [facility] [address] [place] [address] 04/27/2024 Darcie Garcia [facility] [address] [place] [address] 06/01/2024 Darcie Gacria Urge incontinence N3 9.41 [address] [place] [place] [address] 06/03/2024 Darcie Garcia [address] [place] [address] 06/14/2024 Darcie Garcia [place] [address] [place] [address] 07/11/2024 Darcie Garcia Restless legs syndro me G25.81 [address] [place] [address] 07/18/2024 Darcie Garcia [address] [place] [address] 08/05/2024 Darcie Garcia [facility] [address] [place] [address] 08/11/2024 Darcie Garcia Gastroesophageal ref lux disease without esophagitis K21.9 [address] [place] [place] [address] 08/16/2024 Darcie Garcia Type 2 diabetes norah itus with diabetic polyneuropathy, unspecified whether ferry terminal agent insulin use E11.42 [address] [place] [address] 08/29/2024 Darcie Garcia Restless legs syndro me G25.81 [address] [place] [address] 11/28/2024 Darcie Garcia Hypertension, unspecified type I10 [address] [place] [place] [address] 06/21/2024 Emmanuel Stratton Restless legs syndro me G25.81 [address] [place] [address] 06/29/2024 Darcie Garcia Restless legs syndro me G25.81 ; Hip pain, right M25.551 and Urge incontinence N39.41 [address] [place] [place] [address] 08/12/2024 Darcie Garcia Strain of neck muscl e, initial encounter S16.1XXA ; Changes in vision H53.9 ; Dizziness R42 and Paresthesias R20.2 [facility] [address] [place] [address] 06/13/2024 Darcie Garcia Hip pain, right M25. 551 and Pneumonia of both lower lobes due to infectious organism J18.9 [facility] [address] [place] [address] 09/07/2024 Nicole Benson Bipolar mixed affect vesna disorder, moderate F31.62 [facility] [address] [place] [address] 07/13/2024 Nicole Benson Bipolar mixed affect vesna [...] to the start/continuatio n of the treatment. 07/11/2024 Restless legs syndrome (ICD-10 - G25.81) 06/29/2024 Restless legs syndrome (ICD-10 - G25.81) 11/28/2024 Hypertension, unspecified type (ICD-10 - I10) 06/21/2024 Restless legs syndrome (ICD-10 - G25.81) [...] as needed. Continue to monitor symptom resolution 08/12/2024 Strain of neck muscle, initial encounter (ICD-10 - S16.1XXA) 08/12/2024 Changes in vision (ICD-10 - H53.9) 08/11/2024 Gastroesophageal reflux disease without esophagitis (ICD-10 - K21.9) 08/16/2024 Type 2 diabetes mellitus with diabetic polyneuropathy, unspecified whether ferry terminal agent insulin use (ICD-10 - E11.42) 08/29/2024 Restless legs syndrome (ICD-10 - G25.81) 06/01/2024 Urge incontinence (ICD-10 - N39.41) 03/25/2024 Type 2 diabetes mellitus with diabetic polyneuropathy, unspecified whether snf insulin use (ICD-10 - E11.42) 03/25/2024 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 06/29/2024 Urge incontinence (ICD-10 - N39.41) 08/12/2024 [...] in the left eye.- Consult with an road repairer in the next 24 hours if possible [...] Date ANTHEM MEDIBLUE DUAL-ELIGB LE [address] [place] [address] [phone] [id number] [facility] KING MORENO Self - patient is the insured 3 [employer] MEDICAID SEC TO [employer]ARE ADV [address] [place] [address] [phone] [id number] KING MORENO Self - patient is the insured 1 MEDICARE CGS [address] [place] [address] [id number] JOSHKING Self - patient is the insured [...]
--- OUTSIDE RECORDS SUMMARY | 2025-03-25 07:12 | XMS_ITS | Encounter Summary ---
Author Organization [facility] Address [address] [place] [address] Phone Care Team Providers Care Commercial Service Technician Name Role Phone Tremaine West DO Primary Care Provider Ania Brothers AUTOMOTIVE PRODUCT ENGINEER-CAMPAIGN ADVISOR Unavailable Unavailable June Preston MD Unavailable Sol Keita AIR OPERATIONS MANAGER Unavailable [phone] June Preston MD Unavailable Osacr Rodriguez MD Unavailable [phone] Generic Provider, No Assigned Pcp Primary Car e Provider Unavailable Diane Min RN Unavailable Unavailable June Preston MD Unavailable Conchita Aden MD Primary Care Provider [phone] Diane Min RN Unavailable Unavailable Encounter Details Date Type Department Care Team (Late st Contact Info) Description 07/27/2023 Scanned Document [facility] LEGACY [address] [place] [address] Conversion, Onbase Social History Tobacco Use Types [...] Description 04/03/2025 1:00 PM EDT Hospital Encounter [facility] [address] [place] [address] 04/14/2025 10:30 AM EDT [facility] [address] [place] [address] [place] [address] Kervin Fair MD [address] [place] [address] Ventricular tachycardia (Multi) 04/14/2025 12:00 PM EDT - 04/14/2025 4:00 PM EDT Surgery [facility] [address] [place] [address] Kervin Fair MD [address] [place] [address] [place] [[id number] (CPT )] 07/14/2025 1:00 PM EDT Office Visit [facility] 703 [facility] [address] [place] [address] Oscar Rodriguez MD 703 [facility] 2, [address] [place] [address] 09/26/2025 12:20 PM EST Appointment [facility] [address] [place] [address] 09/26/2025 1:00 PM EST Office Visit [facility] [address] [facility] [address] [place] [address] June Preston MD [address] [facility] Office [facility], [address] [place] [address] documented as of this encounter Procedures Procedure [...] documented as of this encounter Care Teams Commercial Service Technician Relationship Specialty Start Date End Date Tremaine West DO [address] DO [facility] 103 [place] [address] PCP - General 01/22/22 11/05/23 Generic Provider, No Assigned Pcp, [place] [address] PCP - General Supervisor Pile Driving 08/08/24 11/10/24 Conchita Aden MD [address] [place] [address] PCP - General Family Medicine 11/11/24 Ania Brothers, AUTOMOTIVE PRODUCT ENGINEER-CAMPAIGN ADVISOR [address], DO [address] [place] [address] Nurse Practitioner Cardiology 09/30/23 02/16/24 June Preston MD 1610 [facility] Tremaine West, DO [address] [place] [address] Pie Crust Mixer Cardiology 09/30/23 02/16/24 Sol Keita, [facility] Turpentine FarmerPaster Hat Lining 02/19/24 05/17/24 June Preston MD [address] [facility], [address] [place] [address] Consulting Physician Cardiology 02/19/24 02/29/24 Oscar Rodriguez MD 703 [facility] 2, [address] [place] [address] Consulting Physician Cardiology 02/19/24 02/29/24 Diane Min, crisis clinicianPaster Hat Lining 09/05/24 12/06/24 June Preston MD [facility] [address] [place] [address] Pie Crust Mixer Electrophysiology 09/13/24 Diane Min, crisis clinicianPaster Hat Lining 01/16/25 01/31/25 documented as of this encounter
--- OUTSIDE RECORDS SUMMARY | 2025-03-25 07:12 | XMS_ITS | Encounter Summary ---
Author Organization [facility] Address [address] [place] [address] Care Team Providers Care Neurology Manager Name Role Phone Conchita Aden MD Primary Care Provider [phone] Encounter Details Date Type Department Care Team (Late Contact Info) Description 10/22/2024 Abstract [facility] OB [address] [place] [address] David Ewing, DO [address] [facility] [address] S[address] Obando, [facility] Social History Tobacco Use Types Packs/Day [...] on filedocumented in this encounter Care Teams Neurology Manager Relationship Specialty Start Date End Date Conchita Aden MD PCP - General Family Medicine 11/07/24 documented as of this encounter
--- OUTSIDE RECORDS SUMMARY | 2025-03-25 07:13 | XMS_ITS | Encounter Summary ---
Author Organization [facility] Address [address] [place] [address] Phone Care Team Providers Care School Boat Driver Name Role Phone Tremaine West DO Primary Care Provider Ania Brothers CUSTOMER SUPPORT COORDINATOR-OXYGEN PLANT OPERATOR Unavailable Unavailable June Preston MD Unavailable Sol Keita BIRDCAGE ASSEMBLER Unavailable [phone] June Preston MD Unavailable Oscar Rodriguez MD Unavailable [phone] Generic Provider, No Assigned Pcp Primary Car e Provider Unavailable Diane Min RN Unavailable Unavailable June Preston MD Unavailable Conchita Aden MD Primary Care Provider Diane Min RN Unavailable Unavailable Encounter Details Date Type Department Care Team (Late st Contact Info) Description 06/30/2020 Orders Only [facility] [address] [place] [address] Conversion, Onbase Social History Tobacco Use Types [...] Description 04/03/2025 1:00 PM EDT Hospital Encounter [facility] [address] [place] [address] 04/14/2025 10:30 AM EDT Hospital Encounter [facility] [place] [address] [place] [address] [place] [address] Kervin Fair MD [address] [place] [address] Ventricular tachycardia (Multi) 04/14/2025 12:00 PM EDT - 04/14/2025 4:00 PM EDT Surgery [facility] [place] [address] [place] [address] [place] [address] Kervin Fair MD [address] [place] [address] [place] [02332 (CPT )] 07/14/2025 1:00 PM EDT Office Visit [facility] 703 [facility] [address] [place] [address] Oscar Rodriguez MD 703 [facility] 2, Steve [address] [place] [address] 09/26/2025 12:[address] [facility] [address] [place] [address] 09/26/2025 1:00 PM EST Office Visit [facility] [address] [facility] [address] [place] [address] June Preston MD 125 E [facility] Office [facility], [facility] [address] [place] [address] Scheduled Orders Name Type Priority Associated Diagnoses [...] documented as of this encounter Care Teams School Boat Driver Relationship Specialty Start Date End Date Tremaine West DO 1610 [facility] Tremaine West [facility] [address] [place] [address] PCP - General 01/22/22 11/05/23 Generic Provider, No Assigned Pcp, [place] [address] PCP - General Mobile Health Vehicle Operator 08/08/24 11/10/24 Conchita Aden MD [address] [place] [address] PCP - General Family Medicine 11/11/24 Ania Brothers, CUSTOMER SUPPORT COORDINATOR-OXYGEN PLANT OPERATOR [address] [place] Amor [place] [facility] [address] [place] [address] Nurse Practitioner Cardiology 09/30/23 02/16/24 June Preston MD 1610 [facility] Tremaine West, [facility] [address] [place] [address] Yacht Rigger Cardiology 09/30/23 02/16/24 Sol Keita, BIRDCAGE ASSEMBLER Social Science ManagerNetwork Field Engineer 02/19/24 05/17/24 June Preston MD 125 [address] [facility] Bldg, Steve [address] [place] [address] Consulting Physician Cardiology 02/19/24 02/29/24 Oscar Rodriguez MD 703 [facility] 2, Steve [address] [place] [address] Consulting Physician Cardiology 02/19/24 02/29/24 Diane Min, plain goods hemmerNetwork Field Engineer 09/05/24 12/06/24 June Preston MD 125 [address] [facility] Steve [address] [place] [address] Yacht Rigger Electrophysiology 09/13/24 Diane Min, plain goods hemmerNetwork Field Engineer 01/16/25 01/31/25 documented as of this encounter
--- OUTSIDE RECORDS SUMMARY | 2025-03-25 07:13 | XMS_ITS | Encounter Summary ---
Author Organization [facility] Address [address] [place] [address] Phone Care Team Providers Care Retail Banker Name Role Phone Tremaine West DO Primary Care Provider Ania Brothers FEATHER SHAPER-SHANK PAPERER Unavailable Unavailable June Preston MD Unavailable Sol Keita VEHICLE DYNAMICS ENGINEER Unavailable [phone] June Preston MD Unavailable Oscar Rodriguez MD Unavailable [phone] Generic Provider, No Assigned Pcp Primary Car e Provider Unavailable Diane Min RN Unavailable Unavailable June Preston MD Unavailable Conchita Aden MD Primary Care Provider [phone] Diane Min RN Unavailable Unavailable Encounter Details Date Type Department Care Team (Late st Contact Info) Description 11/20/2020 Orders Only [facility] [address] [place] [place] [address] Conversion, Onbase Social History Tobacco Use Types [...] 04/03/2025 1:00 PM EDT Hospital Encounter [facility] [address] [place] [address] 04/14/2025 10:30 AM EDT Hospital Encounter [facility] [place] [address] [place] [address] [place] [address] Kervin Fair MD [address] [place] [address] Ventricular tachycardia (Multi) 04/14/2025 12:00 PM EDT - 04/14/2025 4:00 PM EDT Surgery [facility] [place] [address] [place] [address] [place] [address] Kervin Fair MD [address] [place] [address] [place] [98776 (CPT )] 07/14/2025 1:00 PM EDT Office Visit [facility] 703 [facility] 250 [place] [address] Oscar Rodriguez MD 703 [facility] 2, Steve [address] [place] [address] 09/26/2025 12:20 PM EST Appointment [facility] [address] [place] [address] 09/26/2025 1:00 PM EST Office Visit [facility] 125 E [facility] [address] [place] [address] June Preston MD 125 E [facility] Office [facility], [facility] [address] [place], [place] [address] Scheduled Orders Name Type Priority Associated Diagnoses [...] documented as of this encounter Care Teams Retail Banker Relationship Specialty Start Date End Date Tremaine West DO 1610 [facility] Tremaine Childersiraidasimon [facility] 103 [place] [address] PCP - General 01/22/22 11/05/23 Generic Provider, No Assigned Pcp, [place] [address] PCP - General Salon Receptionist 08/08/24 11/10/24 Conchita Aden MD [address] [place] [address] PCP - General Family Medicine 11/11/24 Ania Brothers, FEATHER SHAPER-SHANK PAPERER [address] [place] DO [facility] 103 [place] [address] Nurse Practitioner Cardiology 09/30/23 02/16/24 June Preston MD 1610 [facility] Tremaine West, [facility] 103 [place] [address] Rolled Glass Crosscutter Cardiology 09/30/23 02/16/24 Sol Keita, VEHICLE DYNAMICS ENGINEER Marble CleanerOffice Director 02/19/24 05/17/24 June Preston MD 125 E [facility] Bldg, Steve [address] [place] [address] Consulting Physician Cardiology 02/19/24 02/29/24 Oscar Rodriguez MD 703 [facility] 2, Steve [address] [place] [address] Consulting Physician Cardiology 02/19/24 02/29/24 Diane Min, street photographerOffice Director 09/05/24 12/06/24 June Preston MD 125 E [facility] Steve [address] [place] [address] Rolled Glass Crosscutter Electrophysiology 09/13/24 Diane Min, street photographerOffice Director 01/16/25 01/31/25 documented as of this encounter
--- OUTSIDE RECORDS SUMMARY | 2025-03-25 07:13 | XMS_ITS | Encounter Summary ---
Author Organization [facility] Address [address] [place] [address] Phone Care Team Providers Care Change Of Address Clerk Name Role Phone Tremaine West DO Primary Care Provider Ania Brothers BUTTONHOLE FACER-SR. STRATEGIC SOURCING MANAGER Unavailable Unavailable June Preston MD Unavailable Sol Keita SENIOR FINANCIAL REPORTING ANALYST Unavailable [phone] June Preston MD Unavailable Oscar Rodriguez MD Unavailable [phone] Generic Provider, No Assigned Pcp Primary Car e Provider Unavailable Diane Min RN Unavailable Unavailable June Preston MD Unavailable Conchita Aden MD Primary Care Provider [phone] Diane Min RN Unavailable Unavailable Encounter Details Date Type Department Care Team (Late st Contact Info) Description 03/25/2023 Orders Only [facility] [address] [place] [address] Conversion, Onbase Social History Tobacco Use Types [...] Description 04/03/2025 1:00 PM EDT Hospital Encounter [facility] [address] [place] [address] 04/14/2025 10:30 AM EDT Hospital Encounter [facility] [address] [facility] [address] [place] [address] Kervin Fair MD [address] [place] [address] Ventricular tachycardia (Multi) 04/14/2025 12:00 PM EDT - 04/14/2025 4:00 PM EDT Surgery [facility] [address] [facility] 35[address] [place] [address] Kervin Fair MD [address] [place] [address] [place] [[address]58 (CPT )] 07/14/2025 1:00 PM EDT Office Visit [facility] 703 [facility] 250 [place] [address] Oscar Rodriguez MD 703 [facility] 2, Steve [address] [place] [address] 09/26/2025 12:20 PM EST Appointment [facility] [address] [place] [address] 09/26/2025 1:00 PM EST Office Visit [facility] 125 E [facility] [address] [place] [address] June Preston MD 125 E [facility] Office [facility], [facility] [address] [place], [place] [phone] Scheduled Orders Name Type Priority Associated Diagnoses [...] documented as of this encounter Care Teams Change Of Address Clerk Relationship Specialty Start Date End Date Tremaine West DO 1610 [place] Amor [place] [address] [address] PCP - General 01/22/22 11/05/23 Generic Provider, No Assigned Pcp, [place] [address] PCP - General Paper Mill Superintendent 08/08/24 11/10/24 Conchita Aden MD [address] [place] [address] PCP - General Family Medicine 11/11/24 Ania Brothers, BUTTONHOLE FACER-SR. STRATEGIC SOURCING MANAGER [address] [place] [address] [address] Nurse Practitioner Cardiology 09/30/23 02/16/24 June Preston MD [address] [place] [address] [address] Roof Truss Machine Tender Cardiology 09/30/23 02/16/24 Sol Keita, SENIOR FINANCIAL REPORTING ANALYST Extractor Loader And UnloaderDriller Portable 02/19/24 05/17/24 June Preston MD 125 E [facility] [address] [place] [address] Consulting Physician Cardiology 02/19/24 02/29/24 Oscar Rodriguez MD 703 [facility] 2, [address] [place] [address] Consulting Physician Cardiology 02/19/24 02/29/24 Diane Min, sas architectDriller Portable 09/05/24 12/06/24 June Preston MD 125 E [facility] [address] [place] [address] Roof Truss Machine Tender Electrophysiology 09/13/24 Diane Min, sas architectDriller Portable 01/16/25 01/31/25 documented as of this encounter
--- OUTSIDE RECORDS SUMMARY | 2025-03-25 07:13 | XMS_ITS | Encounter Summary ---
Author Organization [facility] Address [address] [place] [address] Phone Care Team Providers Care Rehabilitation Clerk Name Role Phone Tremaine West DO Primary Care Provider Ania Brothers MONORAIL CAR OPERATOR-SASH CLAMP OPERATOR Unavailable Unavailable June Preston MD Unavailable Sol Keita VOCATIONAL EVALUATOR Unavailable [phone] June Preston MD Unavailable Oscar Rodriguez MD Unavailable [phone] Generic Provider, No Assigned Pcp Primary Car e Provider Unavailable Diane Min RN Unavailable Unavailable June Preston MD Unavailable Conchita Aden MD Primary Care Provider [phone] Diane Min RN Unavailable Unavailable Encounter Details Date Type Department Care Team (Late st Contact Info) Description 01/31/2021 Orders Only [facility] [address] [place] [place] [address] Conversion, Onbase Social History Tobacco Use Types [...] 04/03/2025 1:00 PM EDT Hospital Encounter [facility] [address] [place] [address] 04/14/2025 10:30 AM EDT Hospital Encounter [facility] [place] [address] [place] [address] [place] [address] Kervin Fair MD [address] [place] [address] Ventricular tachycardia (Multi) 04/14/2025 12:00 PM EDT - 04/14/2025 4:00 PM EDT Surgery [facility] [place] [address] [place] [address] [place] [address] Kervin Fair MD [address] [place] [address] [place] [87591 (CPT )] 07/14/2025 1:00 PM EDT Office Visit [facility] 703 [facility] 250 [place] [address] Oscar Rodriguez MD 703 [facility] 2, Steve [address] [place] [address] 09/26/2025 12:20 PM EST Appointment [facility] [address] [place] [address] 09/26/2025 1:00 PM EST Office Visit [facility] 125 E [facility] [address] [place] [address] June Preston MD 125 E [facility] Office [facility], [facility] [address] [place], [place] [phone] Scheduled Orders Name Type Priority Associated Diagnoses [...] documented as of this encounter Care Teams Rehabilitation Clerk Relationship Specialty Start Date End Date Tremaine West DO 1610 [facility] Tremaine Childersiraidasimon [facility] 103 [place] [address] PCP - General 01/22/22 11/05/23 Generic Provider, No Assigned Pcp, [place] [address] PCP - General Dermatology Technician 08/08/24 11/10/24 Conchita Aden MD [address] [place] [address] PCP - General Family Medicine 11/11/24 Ania Brothers, MONORAIL CAR OPERATOR-SASH CLAMP OPERATOR [address] [place]or [place] DO [facility] 103 [place] [address] Nurse Practitioner Cardiology 09/30/23 02/16/24 June Preston MD 1610 [facility] Tremaine West, [facility] 103 [place] [address] Track Coach Cardiology 09/30/23 02/16/24 Sol Keita, VOCATIONAL EVALUATOR Teacher PreschoolAppeals And Generalist Clerk 02/19/24 05/17/24 June Preston MD 125 E [facility] Bldg, Steve [address] [place] [address] Consulting Physician Cardiology 02/19/24 02/29/24 Oscar Rodriguez MD 703 [facility] 2, [address] [place] [address] Consulting Physician Cardiology 02/19/24 02/29/24 Diane Min, powder expertAppeals And Generalist Clerk 09/05/24 12/06/24 June Preston MD 125 E [facility] Steve [address] [place] [address] Track Coach Electrophysiology 09/13/24 Diane Min, powder expertAppeals And Generalist Clerk 01/16/25 01/31/25 documented as of this encounter
--- OUTSIDE RECORDS SUMMARY | 2025-03-25 07:13 | XMS_ITS | Clinical Summary ---
Author Organization [employer] Address [id number] [address] [place] [address] Care Team Providers Care Hip Hop Artist Name Role Phone Unavailable Primary Care Provider [...] 2 diabetes mellitus 1 11/30/2022 Atherosclerosis of [place] co ronary artery of [place] heart without angina pectoris 07/29/2023 Chronic obstructive pulmonary disease 07/29/2023 Chronic systolic CHF (congestive heart failure) 07/29/2023 Current every day smoker 07/29/2023 Essential hypertension 07/29/2023 Intermittent claudication 07/29/2023 Pulmonary embolism 07/29/2023 Type 2 diabetes mellitus 07/29/2023 Gastroesophageal reflux disease without esophagi tis 11/25/2021 Vascular insufficiency of intestine 04/09/2015 Encounters Date Type Department Care Team Description 03/01/2025 Telephone [facility] Gynecology Oncology, A Department [facility] [address] [place] [address] Charlotte Garcia, PAULA 02/22/2025 Telephone [facility] Gynecology Oncology, A Department of [facility] [address] [place] [address] Charlotte Garcia, RN from Last [...] Negative Negative^N egative 12/01/2024 2:25 PM EST [facility] Hpv 18 Negative Negative^N egative 12/01/2024 2:25 PM EST [facility] Other high risk hpv Negative Negative^N egative 12/01/2024 2:25 PM EST [facility] Comment: HPV types 31,33,35,39,45,52,56,58,59,66 and 68 DNA were undetectable. THINP 11/29/2024 3:43 AM EST 12/01/2024 3:44 AM EST us Nanci Mcallister MD LAB BLOOD ORDERABLES Final Resul t [facility] [address] [facility] [place] [address] from Last 3 Months or Most Recently Relevant to Health Maintenance Insurance MEDICAID [place] MEDICARE
--- OUTSIDE RECORDS SUMMARY | 2025-03-25 07:13 | XMS_ITS | Encounter Summary ---
Author Organization [facility] Address [address] [place] [address] Care Team Providers Care Home Health Manager Name Role Phone Conchita Aden MD Primary Care Provider [phone] Encounter Details Date Type Department Care Team (Late Contact Info) Description 10/30/2024 Clinisync Result Encounter [facility] External Department Unsolicited Charity Gerard PA [address] [place] [address] [place] [address] Social History Tobacco Use Types [...] EST Narrative 10/31/2024 6:59 AM EST The [address] [address] Electrocardiograph Report Signed Patient: KING MORENO MR#: [id number] : 1960 Acct:[id number] Age/Sex: 63 / F ADM Date: 10/30/24 Loc: [place] 203-[address]: Parmjit Poon M.D. Ordering Physician: Charity Gerard Date of Service: 10/30/24 Procedure(s): ECG 12 lead Accession Number(s): [id number] cc: [facility] Test Date: 2024-10-30 Pat Name: KING MORENO Department: Room: - Gender: Female Chief Transfer And Pumphouse Operator: : 1960 Requested By: CONCHITA ADEN Order Number: [id number] Reading MD: FELIZ JENNINGS Measurements Intervals [place] Rate: 94 P: 68 FL: 126 QRS: 56 QRSD: 84 T: 90 QT: 348 QTc: 399 Interpretive Statements 1100 Sinus rhythm 4068 Nonspecific Twave abnormality, can't exclude inferolateral ischemia 8102 Low QRS voltage in chest leads 9130 borderline ECG Compared to ECG 10/29/2024 16:19:34 No significant changes Electronically Signed On 10-31-2024 6:59:03 EST by FELIZ JENNINGS Dictated By: Feliz Jennings D.O. Signed By: 10/31/24 0659 DD/ 1500 TD/TT: Orthotic Finish Grinding Technician: Procedure Note Radiology, Radiologist, MD - 10/31/2024 [place] [address] Electrocardiograph Report Signed Patient: KING MORENO [facility]#: [id number] : 1Acct:[id number] Age/Sex: 63 / FADM Date: 10/30/24 Loc: [place] 203-[address]: Parmjit Poon M.D. Ordering Physician: Charity Gerard Date of Service: 10/30/24 Procedure(s): ECG 12 lead Accession Number(s): [id number] cc: [facility] Test Date: 2024-10-30 Pat Name: KING MORENO Department: Room: - Gender: Female Chief Transfer And Pumphouse Operator: : 1960 Requested By: CONCHITA ADEN Order Number: [id number] Reading MD: FELIZ JENNINGS Measurements Intervals [place] Rate: 94 P: 68 FL: 126 QRS: 56 QRSD: 84 T: 90 QT: 348 QTc: 399 Interpretive Statements 1100 Sinus rhythm 4068 Nonspecific Twave abnormality, can't exclude inferolateral ischemia 8102 Low QRS voltage in chest leads 9130 borderline ECG Compared to ECG 10/29/2024 16:19:34 No significant changes Electronically Signed On 10-31-2024 6:59:03 EST by FELIZ JENNINGS Dictated By: Feliz Jennings D.O. Signed By:10/31/24 0659 DD/ 1500 TD/TT: Orthotic Finish Grinding Technician: Charity [facility] Final Result documented in this encounter Visit Diagnoses Not on filedocumented in this encounter Care Teams Home Health Manager Relationship Specialty Start Date End Date Conchita Aden MD PCP - General Family Medicine 11/07/24 documented as of this encounter
--- OUTSIDE RECORDS SUMMARY | 2025-03-25 07:13 | XMS_ITS | Encounter Summary ---
Author Organization [facility] Address [address] [place] [address] Care Team Providers Care Vocal Music Instructor Name Role Phone Conchita Aden MD Primary Care Provider Encounter Details Date Type Department Care Team (Late Contact Info) Description 10/22/2024 Abstract [facility] [address] [place] [phone] David Ewing, DO [address] [address] Sven [place], [facility] Social History Tobacco Use Types Packs/Day [...] on filedocumented in this encounter Care Teams Vocal Music Instructor Relationship Specialty Start Date End Date Conchita Aden MD PCP - General Family Medicine 11/07/24 documented as of this encounter
--- OUTSIDE RECORDS SUMMARY | 2025-03-25 07:13 | XMS_ITS | Encounter Summary ---
Author Organization [facility] Address [address] [place] [address] Phone Care Team Providers Care Forestry Hunter Name Role Phone Tremaine West DO Primary Care Provider Ania Brothers SUBSTATION SUPERVISOR-VESSEL SLAG WORKER Unavailable Unavailable June Preston MD Unavailable Sol Keita INSULATION BOARD CALENDER OPERATOR Unavailable [phone] June Preston MD Unavailable Oscar Rodriguez MD Unavailable [phone] Generic Provider, No Assigned Pcp Primary Car e Provider Unavailable Diane Min RN Unavailable Unavailable June Preston MD Unavailable Conchita Aden MD Primary Care Provider [phone] Diane Min RN Unavailable Unavailable Encounter Details Date Type Department Care Team (Late st Contact Info) Description 09/08/2019 Orders Only [facility] [address] [place] [place] [address] Conversion, Onbase Social History Tobacco Use Types [...] Description 04/03/2025 1:00 PM EDT Hospital Encounter [facility] [address] [place] [address] 04/14/2025 10:30 AM EDT Hospital Encounter [facility] [place] [address] [place] [address] [place] [address] Kervin Fair MD [address] [place] [address] Ventricular tachycardia (Multi) 04/14/2025 12:00 PM EDT - 04/14/2025 4:00 PM EDT Surgery [facility] [place] [address] [place] [address] [place] [address] Kervin Fair MD [address] [place] [address] [place] [49166 (CPT )] 07/14/2025 1:00 PM EDT Office Visit [facility] 703 [facility] [address] [place] [address] Oscar Rodriguez MD 703 [facility] 2, Steve [address] [place] [address] 09/26/2025 12:20 PM EST Appointment [facility] [address] [place] [address] 09/26/2025 1:00 PM EST Office Visit [facility] 125 [address] [facility] [address] [place] [address] June Preston MD 125 [address] [facility] Office [facility], [facility] [address] [place] [address] Scheduled Orders Name Type Priority Associated Diagnoses [...] documented as of this encounter Care Teams Forestry Hunter Relationship Specialty Start Date End Date Tremaine West DO 1610 [facility] Tremaine West [facility] [address] [place] [address] PCP - General 01/22/22 11/05/23 Generic Provider, No Assigned Pcp, [place] [address] PCP - General Court Deputy 08/08/24 11/10/24 Conchita Aden MD [address] [place] [address] PCP - General Family Medicine 11/11/24 Ania Brothers, SUBSTATION SUPERVISOR-VESSEL SLAG WORKER [address] [place] [facility] [address] [place] [address] Nurse Practitioner Cardiology 09/30/23 02/16/24 June Preston MD 1610 [facility] Tremaine West, [facility] 103 [place] [address] High School Admissions Representative Cardiology 09/30/23 02/16/24 Sol Keita, INSULATION BOARD CALENDER OPERATOR Convention ManagerIp Litigation Paralegal 02/19/24 05/17/24 June Preston MD 125 E [facility] Bldg, Steve [address] [place] [address] Consulting Physician Cardiology 02/19/24 02/29/24 Oscar Rodriguez MD 703 [facility] 2, [address] [place] [address] Consulting Physician Cardiology 02/19/24 02/29/24 Diane Min, mucker operatorIp Litigation Paralegal 09/05/24 12/06/24 June Preston MD 125 E [facility] Medical [facility], Steve [address] [place] [address] High School Admissions Representative Electrophysiology 09/13/24 Diane Min, mucker operatorIp Litigation Paralegal 01/16/25 01/31/25 documented as of this encounter
--- OUTSIDE RECORDS SUMMARY | 2025-03-25 07:13 | XMS_ITS | Encounter Summary ---
Author Organization [facility] Address [address] [place] [address] Phone Care Team Providers Care Marketing Communications Specialist Name Role Phone Bossman Sol Oscar HOPPER Unavailable [phone] June Preston MD Unavailable Oscar Rodriguez MD Unavailable [phone] Generic Provider, No Assigned Pcp Primary Car e Provider Unavailable Diane Min RN Unavailable Unavailable June Preston MD Unavailable Conchita Aden MD Primary Care Provider [phone] Diane Min RN Unavailable Unavailable Encounter Details Date Type Department Care Team (Late st Contact Info) Description 02/19/2024 Scanned Document [facility] [address] [place] [address] Scanning, Generic Provider Social History Tobacco Use [...] in a long-term (including now)? No 02/16/2024 Comments Unknown Sex [...] EDT Hospital Encounter [facility] [address] [place] [address] 04/14/2025 10:30 AM EDT Hospital Encounter [facility] [place] [address] [place] [address] Kervin Fair MD [facility] [place] [address] Ventricular tachycardia (Multi) 04/14/2025 12:00 PM EDT - 04/14/2025 4:00 PM EDT Surgery [facility] [address] [place] [address] [place] [address] Kervin Fair MD [address] [place] [address] [place] [62964 (CPT )] 07/14/2025 1:00 PM EDT Office Visit [facility] 703 [facility] Steve [address] [place] [address] Oscar Rodriguez MD 703 [facility] 2, Steve [address] [place] [address] 09/26/2025 12:20 PM EST Appointment [facility] [address] [place] [address] 09/26/2025 1:00 PM EST Office Visit [facility] 125 [address] [facility] [address] [place] [address] June Preston MD 125 E [facility] Office Bl, Steve [address] [place] [address] documented as of this encounter Visit Diagnoses [...] documented as of this encounter Care Teams Marketing Communications Specialist Relationship Specialty Start Date End Date Generic Provider, No Assigned Pcp, [place] [address] PCP - General Electrical Maintenance Man 08/08/24 11/10/24 Conchita Aden MD [address] [place] [address] [place] [address] PCP - General Family Medicine 11/11/24 Sol Keita, CLINICAL PROGRAMMER Grain FarmerSteam Clothes Press Operator 02/19/24 05/17/24 June Preston MD 125 [address] [facility], Steve [address] [place] [address] Consulting Physician Cardiology 02/19/24 02/29/24 Oscar Rodriguez MD [address] [place] [address] 2, [address] [place] [address] Consulting Physician Cardiology 02/19/24 02/29/24 Diane Min RN Care Steam Clothes Press Operator 09/05/24 12/06/24 June Preston MD 125 [address] [facility], Steve [address] [place] [address] Brick Cleaner Electrophysiology 09/13/24 Diane Min, telemedicine physicianSteam Clothes Press Operator 01/16/25 01/31/25 documented as of this encounter
--- OUTSIDE RECORDS SUMMARY | 2025-03-25 07:13 | XMS_ITS | Encounter Summary ---
Author Organization [facility] Address [address] [place] [address] Care Team Providers Care Bottom Saw Operator Name Role Phone Conchita Aden MD Primary Care Provider [phone] Encounter Details Date Type Department Care Team (Late st Contact Info) Description 06/29/2023 External Result Encounter [facility] External Department Unsolicited Steve Combs, DO [address] [facility] [address] [place] [address] Social History Tobacco Use Types Packs/Day Years [...] Gerber Moreno M.D.06/29/2023 3:14 PM Dictation Location: [place] [address] Transcribed By: [facility] 06/29/23 1514 Dictated By: Gerber Moreno II, MD 06/29/23 1500 Signed By: <Electronically signed by Gerber Moreno II, MD in OV> 06/29/23 1514 Narrative 06/29/2023 3:36 PM EDT [facility] [place] [address] [place] [address] MRI Report Signed Patient: Latanya Martinez MR#: [id number] : 1960 Acct:[id number] Age/Sex: 62 / F ADM Date: 06/29/23 Loc: Room: Type: [facility] Attending Dr: Steve Combs DO Copies to: DO Darcie Draper MD, RES Ordering Provider: Steve Combs DO; Darcie Garcia MD, RES Date of Service: 06/29/23 MR/MR lumbar spine wo/w con: Other intervertebral disc degeneration, lumbar region;Spondy ([id number]) XR/XR pre/post mri xray: M51.36,M43.16 MR lumbar [...] Procedure Note Radiology, Radiologist, MD - 06/29/2023 [facility] [place] [address] [place] [address] MRI Report Signed Patient: Latanya Martinez AMR#: [id number] : 1960cct:[id number] Age/Sex: 62 / FADM Date: 06/29/23 Loc: Room:Type: [facility] Attending Dr: Steve Combs DO Copies to: DO Darcie Draper MD, RES Ordering Provider: Steve Combs DO; Darcie Garcia MD, RES Date of Service: 06/29/23 MR/MR lumbar spine wo/w con: Otherintervertebral disc degeneration, lumbar region;Spondy ([id number]) XR/XR pre/post mri xray: M51.36,M43.16 MR lumbar [...] and L4-5. The conus terminates at the L1-C0gpynqeuooxbtck disc level. No epidural or paraspinous fluid [...] mild mass effect on the exiting left S3xciwb roots. This are also present. No significant spinal canal stenosis. At L5-S1: There is a normal disc, central canal, and neural foramen. MR/MR lumbar spine wo/w con IMPRESSION: At L4-L5: There is a focal left foraminal disc extrusion contributing tomoderate to severe left neural foraminal narrowing with mild mass effect on the exiting left L6jkksk roots. This are also present. No significant [...] Gerber Moreno M.D.06/29/2023 3:14 PM Dictation Location: [place] [address] Transcribed By: [facility] 06/29/23 1514 Dictated By: Gerber Moreno II, MD 06/29/23 1500 Signed By: <Electronically signed by Gerber Moreno II, MD inOV> 06/29/23 1514 Steve Combs DO IMG MRI PROCEDURES Final Result documented in this encounter Visit Diagnoses Not on filedocumented in this encounter Care Teams Bottom Saw Operator Relationship Specialty Start Date End Date Conchita Aden MD PCP - General Family Medicine 11/07/24 documented as of this encounter
--- OUTSIDE RECORDS SUMMARY | 2025-03-25 07:13 | XMS_ITS | Encounter Summary ---
Author Organization [facility] Address [address] [place] [address] Phone Care Team Providers Care Guide Name Role Phone Tremaine West DO Primary Care Provider Aina Brothers AIR CONDITIONING UNIT TESTER-MANAGER TRANSITION Unavailable Unavailable June Preston MD Unavailable Sol Keita JIG AND FIXTURE BUILDER Unavailable [phone] June Preston MD Unavailable Oscar Rodriguez MD Unavailable [phone] Generic Provider, No Assigned Pcp Primary Car e Provider Unavailable Diane Min RN Unavailable Unavailable June Preston MD Unavailable Conchita Aden MD Primary Care Provider [phone] Diane Min RN Unavailable Unavailable Encounter Details Date Type Department Care Team (Late st Contact Info) Description 08/15/2019 Orders Only [facility] LE[facility] [address] [place] [address] Conversion, Onbase Social History Tobacco Use Types [...] PM EDT Hospital Encounter [facility] [address] [place] [address] 04/14/2025 10:30 AM EDT Hospital Encounter [facility] [place] [address] [place] [address] [place] [address] Kervin Fair MD [address] [place] [address] Ventricular tachycardia (Multi) 04/14/2025 12:00 PM EDT - 04/14/2025 4:00 PM EDT Surgery [facility] [place] [address] [place] [address] [place] [address] Kervni Fair MD [address] [place] [address] [place] [74127 (CPT )] 07/14/2025 1:00 PM EDT Office Visit [facility] 703 [facility] 250 [place] [address] Oscar Rodriguez MD 703 [facility] 2, Steve [address] [place] [address] 09/26/2025 12:20 PM EST Appointment [facility] [address] [place] [address] 09/26/2025 1:00 PM EST Office Visit [facility] 125 [address] [facility] [address] [place] [address] June Preston MD 125 E [facility] Office [facility], [facility] [address] [place] [address] Scheduled Orders Name Type Priority Associated Diagnoses [...] documented as of this encounter Care Teams Guide Relationship Specialty Start Date End Date Tremaine West DO [address] [place] [place] DO [facility] 103 [place] [address] PCP - General 01/22/22 11/05/23 Generic Provider, No Assigned Pcp, NONE [place] [address] PCP - General Executive Admin 08/08/24 11/10/24 Conchita Aden MD [address] [place] [address] [place] [address] PCP - General Family Medicine 11/11/24 Ania Brothers APRN-MANAGER TRANSITION [address]10 [place] DO [address] [address] Nurse Practitioner Cardiology 09/30/23 02/16/24 June Presotn MD [address] [place], DO [facility] 103 [place] [address] Rf Test Engineer Cardiology 09/30/23 02/16/24 Sol Keita, JIG AND FIXTURE BUILDER Director MicrobiologyFur Finisher 02/19/24 05/17/24 June Preston MD 125 [address] [facility] Bl, Steve [address] [place], [place] [address] Consulting Physician Cardiology 02/19/24 02/29/24 Oscar Rodriguez MD 703 [facility] 2, [address] [place], [place] [address] Consulting Physician Cardiology 02/19/24 02/29/24 Diane Min, technology assistantFur Finisher 09/05/24 12/06/24 June Preston MD 125 E [facility] Steve [address] [place] [address] Rf Test Engineer Electrophysiology 09/13/24 Diane Min, technology assistantFur Finisher 01/16/25 01/31/25 documented as of this encounter
--- OUTSIDE RECORDS SUMMARY | 2025-03-25 07:13 | XMS_ITS | Encounter Summary ---
Author Organization [facility] Address [address] [place] [address] Phone Care Team Providers Care Roughing Mill Operator Name Role Phone Tremaine West DO Primary Care Provider Ania Brothers PHOTOFLASH POWDER MIXER-SUPERINTENDENT TRANSMISSION Unavailable Unavailable June Preston MD Unavailable Sol Keita LINSEED OIL REFINER Unavailable [phone] June Preston MD Unavailable Oscar Rodriguez MD Unavailable [phone] Generic Provider, No Assigned Pcp Primary Car e Provider Unavailable Diane Min RN Unavailable Unavailable June Preston MD Unavailable Conchita Aden MD Primary Care Provider Diane Min RN Unavailable Unavailable Encounter Details Date Type Department Care Team (Late st Contact Info) Description 05/27/2022 Orders Only [facility] LEGACY [address] [place] [address] Conversion, Onbase Social History Tobacco Use Types [...] 04/03/2025 1:00 PM EDT Hospital Encounter [facility] [address] [place] [address] 04/14/2025 10:30 AM EDT Hospital Encounter [facility] [address] [facility] 35[address] [place] [address] Kervin Fair MD [address] [place] [address] Ventricular tachycardia (Multi) 04/14/2025 12:00 PM EDT - 04/14/2025 4:00 PM EDT Surgery [facility] [address] [facility] 35[address] [place] [address] Kervin Fair MD [address] [place] [address] [place] [76454 (CPT )] 07/14/2025 1:00 PM EDT Office Visit [facility] 703 [employer] [address] [place] [address] Oscar Rodriguez MD 703 [facility] 2, Steve [address] [place] [address] 09/26/2025 12:20 PM EST Appointment [facility] [address] [place] [address] 09/26/2025 1:00 PM EST Office Visit [facility] 125 E [facility] [address] [place] [address] June Preston MD 125 E [facility] Office [facility], [facility] [address] [place], [place] [address] Scheduled Orders Name Type Priority Associated Diagnoses [...] documented as of this encounter Care Teams Roughing Mill Operator Relationship Specialty Start Date End Date Tremaine West DO [address]10 [place] [address] [address] PCP - General 01/22/22 11/05/23 Generic Provider, No Assigned Pcp, [place] [address] PCP - General Equipment Maintenance Technician 08/08/24 11/10/24 Conchita Aden MD [address] [place] [address] PCP - General Family Medicine 11/11/24 Ania Brothers, PHOTOFLASH POWDER MIXER-SUPERINTENDENT TRANSMISSION [address] [place] [address] [address] Nurse Practitioner Cardiology 09/30/23 02/16/24 June Preston MD [address] [place] [address] [address] Radiation Physicist Cardiology 09/30/23 02/16/24 Sol Keita, LINSEED OIL REFINER Porcelain Enamel LaborerChanneler 02/19/24 05/17/24 June Preston MD 125 E [facility], [facility] [address] [place] [address] Consulting Physician Cardiology 02/19/24 02/29/24 Oscar Rodriguez MD 703 [facility] 2, [address] [place] [address] Consulting Physician Cardiology 02/19/24 02/29/24 Diane Min, agriculture internshipChanneler 09/05/24 12/06/24 June Preston MD 125 E [facility], [facility] [address] [place] [address] Radiation Physicist Electrophysiology 09/13/24 Diane Min, agriculture internshipChanneler 01/16/25 01/31/25 documented as of this encounter
--- OUTSIDE RECORDS SUMMARY | 2025-03-25 07:13 | XMS_ITS | Clinical Summary ---
Author Organization [facility] Address [address] [place] [address] Care Team Providers Care Marking Room Supervisor Name Role Phone Conchita Aden MD Primary Care Provider [phone] Allergies No known active allergies Medications oxybutynin [...] Department Care Team Description 01/01/2025 Refill [facility] [address] [place] [address] Tremaine Combs, DO Urge incontinence of urine 12/28/2024 Telephone [facility] [address] [place] [address] Otis Gould PA referral from [...] exists Insurance [employer] Care Teams Marking Room Supervisor Relationship Specialty Start Date End Date Conchita Aden MD PCP - General Family Medicine 11/07/24
--- OUTSIDE RECORDS SUMMARY | 2025-03-25 07:13 | XMS_ITS | Encounter Summary ---
Author Organization [facility] Address [address] [place] [address] Phone Care Team Providers Care Foreign Service Officer Name Role Phone Tremaine West DO Primary Care Provider Ania Brothers GLUE SPRAYER-CHIEF ORTHOPTIST Unavailable Unavailable June Preston MD Unavailable Sol Keita ONLINE HEALTH AND FITNESS COACH Unavailable [phone] June Preston MD Unavailable Oscar Rodriguez MD Unavailable [phone] Generic Provider, No Assigned Pcp Primary Car e Provider Unavailable Diane Min RN Unavailable Unavailable June Preston MD Unavailable Conchita Aden MD Primary Care Provider [phone] Diane Min RN Unavailable Unavailable Encounter Details Date Type Department Care Team (Late st Contact Info) Description 07/04/2020 Orders Only [facility] LEGACY [address] [place] [place] [address] Conversion, Onbase Social History Tobacco Use Types [...] Description 04/03/2025 1:00 PM EDT Hospital Encounter [facility] [address] [place] [address] 04/14/2025 10:30 AM EDT Hospital Encounter [facility] [place] [address] [place] [address] [place] [address] Kervin Fair MD [address] [place] [address] Ventricular tachycardia (Multi) 04/14/2025 12:00 PM EDT - 04/14/2025 4:00 PM EDT Surgery [facility] [place] [address] [place] [address] [place] [address] Kervin Fair MD [address] [place] [address] [place] [[address] (CPT )] 07/14/2025 1:00 PM EDT Office Visit [facility] 703 [facility] 250 [place] [address] Oscar Rodriguez MD 703 [facility] 2, Steve [address] [place] [address] 09/26/2025 12:20 PM EST Appointment [facility] [address] [place] [address] 09/26/2025 1:00 PM EST Office Visit [facility] 125 E [facility] [address] [place] [address] June Preston MD 125 E [facility] Office [facility], [facility] [address] [place] [address] Scheduled Orders Name Type Priority Associated Diagnoses [...] documented as of this encounter Care Teams Foreign Service Officer Relationship Specialty Start Date End Date Tremaine West DO 1610 [facility] Tremaine West [facility] 103 [place] [address] PCP - General 01/22/22 11/05/23 Generic Provider, No Assigned Pcp, [place] [address] PCP - General Bell Hole Digger 08/08/24 11/10/24 Conchita Aden MD [address] [place] [address] PCP - General Family Medicine 11/11/24 Ania Brothers, GLUE SPRAYER-CHIEF ORTHOPTIST [address] [place] [facility] 103 [place] [address] Nurse Practitioner Cardiology 09/30/23 02/16/24 June Preston MD 1610 [facility] Tremaine West, [facility] 103 [place] [address] Trolley Car Mechanic Cardiology 09/30/23 02/16/24 Sol Keita, ONLINE HEALTH AND FITNESS COACH Balling Machine OperatorAlligator Shear Operator 02/19/24 05/17/24 June Preston MD 125 E [facility] Bldg, Steve [address] [place] [address] Consulting Physician Cardiology 02/19/24 02/29/24 Oscar Rodriguez MD 703 [facility] 2, [address] [place] [address] Consulting Physician Cardiology 02/19/24 02/29/24 Diane Min, wastewater treatment operatorAlligator Shear Operator 09/05/24 12/06/24 June Preston MD 125 E [facility] Steve [address] [place] [address] Trolley Car Mechanic Electrophysiology 09/13/24 Diane Min, wastewater treatment operatorAlligator Shear Operator 01/16/25 01/31/25 documented as of this encounter
--- OUTSIDE RECORDS SUMMARY | 2025-03-25 07:13 | XMS_ITS | Encounter Summary ---
Author Organization [facility] Address [address] [place] [address] Phone Care Team Providers Care Maintenance Dispatcher Name Role Phone Tremaine West DO Primary Care Provider Ania Brothers ENGINEERING DESIGN MANAGER-HOTEL BREAKFAST ATTENDANT Unavailable Unavailable June Preston MD Unavailable Sol Keita RESTAURANT AREA MANAGER Unavailable [phone] June Preston MD Unavailable Oscar Rodriguez MD Unavailable [phone] Generic Provider, No Assigned Pcp Primary Car e Provider Unavailable Diane Min RN Unavailable Unavailable June Preston MD Unavailable Conchita Aden MD Primary Care Provider [phone] Diane Min RN Unavailable Unavailable Encounter Details Date Type Department Care Team (Late st Contact Info) Description 08/20/2020 Orders Only [facility] LEGACY [address] [place] [address] Conversion, Onbase Social History Tobacco Use Types [...] Description 04/03/2025 1:00 PM EDT Hospital Encounter [facility] [address] [place] [address] 04/14/2025 10:30 AM EDT Hospital Encounter [facility] [address] [place] [address] [place] [id number] Kervin Fair MD [address] [place] [address] Ventricular tachycardia (Multi) 04/14/2025 12:00 PM EDT - 04/14/2025 4:00 PM EDT Surgery [facility] [place] [address] [place] [address] [place] [id number] Kervin Fair MD [address] [place] [address] [place] [[address] (CPT )] 07/14/2025 1:00 PM EDT Office Visit [facility] [address] [facility] [address] [place] [address] Oscar Rodriguez MD 703 [facility] 2, [address] [place] [address] 09/26/2025 12:[address] [facility] [address] [place] [address] 09/26/2025 1:00 PM EST Office Visit [facility] [address] [facility] [address] [place] [address] June Preston MD [address] [facility] Office [facility], [facility] [address] [place] [address] Scheduled Orders Name Type Priority Associated Diagnoses [...] documented as of this encounter Care Teams Maintenance Dispatcher Relationship Specialty Start Date End Date Tremaine West DO 1610 [facility] Tremiane West [facility] [address] [place] [address] PCP - General 01/22/22 11/05/23 Generic Provider, No Assigned Pcp, [place] [address] PCP - General Memorial Counselor 08/08/24 11/10/24 Conchita Aden MD [address] [place] [address] PCP - General Family Medicine 11/11/24 Ania Brothers, ENGINEERING DESIGN MANAGER-HOTEL BREAKFAST ATTENDANT [address] [facility] Amor West [facility] [address] [place] [address] Nurse Practitioner Cardiology 09/30/23 02/16/24 June Preston MD 1610 [facility] Tremaine West, [facility] [address] [place] [address] Airport Clerk Cardiology 09/30/23 02/16/24 Sol Keita, RESTAURANT AREA MANAGER Traffic EnumeratorDietary Aid 02/19/24 05/17/24 June Preston MD [address] [facility], [address] [place] [address] Consulting Physician Cardiology 02/19/24 02/29/24 Oscar Rodriguez MD [address] [facility] 2, [address] [place] [address] Consulting Physician Cardiology 02/19/24 02/29/24 Diane Min, tattoo and body artistDietary Aid 09/05/24 12/06/24 June Preston MD [address] [facility], [address] [place] [address] Airport Clerk Electrophysiology 09/13/24 Diane Min, tattoo and body artistDietary Aid 01/16/25 01/31/25 documented as of this encounter
--- OUTSIDE RECORDS SUMMARY | 2025-03-25 07:14 | XMS_ITS | Patient Health Record ---
Author Organization [facility] [place] Address [address] [place] [address] Care Team Providers Care Water Pollution Specialist Name Role Phone Conchita Aden Primary Care Provider Unavailabl e Results Component Value Reference Range Notes BNP Reviewed date:10/30/2024 08:29:21 PM Interpretation: Performing Lab: Notes/Report: [facility] , NT Pro B Type Natriuretic Pept 352.0 <=900.0 pg/mL Performing Lab: see note ML - [facility] LB INFLUENZA A AND B AG Reviewed date:10/31/2024 08:21:23 PM Interpretation: Performing Lab: Notes/Report: [facility] , Influenza Virus A Antigen Negative Negative for Flu A protein antigen. Infection due to Flu A below the detection limit of the test. cannot be ruled out. Flu A antigen in the sample may be Influenza Virus B Antigen Negative below the detection limit of the test. Negative for Flu B protein antigen. Infection due to Flu B cannot be ruled out. Flu B antigen in the sample may be Performing Lab: see note ML - [facility] LB LACTATE or LACTIC ACID Reviewed date:10/30/2024 08:29:21 PM Interpretation: Performing Lab: Notes/Report: [facility] , Lactate/Lactic Acid 3.0 0.4-2.0 mmol/L RESULT S CALLED TO SARA ZAVALETA Performing Lab: see note ML - [facility] LB Prothrombin Time INR Reviewed date:10/31/2024 08:21:23 PM Interpretation: Performing Lab: Notes/Report: [facility] , Prothrombin Time 64.4 9.0-11.6 sec RESULTS CALLED TO SUSSY CANO RN @BY Dilia G. Lashaun at 2127 INR 7.41 2.5-3.5 RECURRENT THROMBOSIS 2.0-3.0 CONDITIONS NOT LISTED BELOW Lashaun at 2127 2.5-3.5 FOR PROSTHETIC HEART VALVE REPLACEMENT RESULTS CALLED TO SUSSY CNAO RN @BY Dilia CUETO INR: Performing Lab: see note ML - [facility] LB Troponin I High Sensitivity Reviewed date:10/30/2024 08:29:22 PM Interpretation: Performing Lab: Notes/Report: [facility] , Troponin I High Sensitivity 6.0 4.0-51.3 pg/mL 99TH PERCENTILE = 51.4 PG/ML UNIVERSAL DEFINITION OF MYOCARDIAL INFARCTION. THE UPPER USED IN ISOLATION BUT SHOULD BE INTERPRETED IN CONJUNCTION CUT-OFF POINTS HAVE BEEN ESTABLISHED BASED ON THE FOURTH NOTE: HIGH-SENSITIVITY TROPONIN ASSAY IS NOT INTENDED TO BE HAS BEEN CONFIRMED THE DECISION THRESHOLD FOR FL PERCENTILE OF cTnI DISTRIBUTION IN A REFERENCE POPULATION, DIAGNOSIS. REFERENCE LIMIT (URL) OF TROPONIN, DEFINED THE 99TH WITH OTHER DIAGNOSTIC AND CLINICAL INFORMATION. Performing Lab: see note ML - [facility] LB SARS-CoV-2 Ag* Reviewed date:10/31/2024 08:21:23 PM Interpretation: Performing Lab: Notes/Report: [facility] , SARS-CoV-2 Ag NEGATIVE NEGATIVE authorized for the duration of the declaration that viruses or pathogens. The emergency use of this test is Act, 21 U.S.C. 360bbb-3(b)(1), unless the declaration is the detection of proteins from SARS-CoV-2, not for any other (EUA) for use by authorized laboratories certified under and/or diagnosis of Covid-19 under section 564(b)(1) of the complexity testing. This test has been authorized only for This test has not been FDA cleared or approved, but has been authorized by the FDA under an Emergency Use Authorization CLIA that meet the requirements to perform moderate or high terminated or authorization is revoked sooner. circumstances exist justifying the authorization of emergency use of in vitro diagnostic tests for detection Performing Lab: see note ML - [facility] LB LACTATE or LACTIC ACID Reviewed date:10/31/2024 08:21:23 PM Interpretation: Performing Lab: Notes/Report: [facility] , Lactate/Lactic Acid 1.7 0.4-2.0 mmol/L Performing Lab: see note ML - [facility] LB Troponin I High Sensitivity Reviewed date:10/31/2024 08:21:23 PM Interpretation: Performing Lab: Notes/Report: [facility] , Troponin I High Sensitivity 8.6 4.0-51.3 pg/mL REFERENCE LIMIT (URL) OF TROPONIN, DEFINED THE 99TH CUT-OFF POINTS HAVE BEEN ESTABLISHED BASED ON THE FOURTH NOTE: HIGH-SENSITIVITY TROPONIN ASSAY IS NOT INTENDED TO BE HAS BEEN CONFIRMED THE DECISION THRESHOLD FOR FL DIAGNOSIS. 99TH PERCENTILE = 51.4 PG/ML USED IN ISOLATION BUT SHOULD BE INTERPRETED IN CONJUNCTION UNIVERSAL DEFINITION OF MYOCARDIAL INFARCTION. THE UPPER WITH OTHER DIAGNOSTIC AND CLINICAL INFORMATION. PERCENTILE OF cTnI DISTRIBUTION IN A REFERENCE POPULATION, Performing Lab: see note - [facility] LB CBC AUTO DIFF Reviewed date:10/31/2024 08:21:23 PM Interpretation: Performing Lab: Notes/Report: [facility] , White Blood Count 14.0 4.0-11.0 10 [...] 3/uL Performing Lab: see note ML - [facility] PROF 14(COMP METB) Reviewed date:10/31/2024 08:21:23 PM Interpretation: Performing Lab: Notes/Report: [facility] , Sodium 136 136-145 mmol/L Potassium 4.0 [...] Globulin Ratio 0.6 Performing Lab: see note ML - [facility] Prothrombin Time INR Reviewed date:10/31/2024 08:21:23 PM Interpretation: Performing Lab: Notes/Report: [facility] , Prothrombin Time 25.0 9.0-11.6 sec INR 2.59 DESIRED INR: 2.0-3.0 CONDITIONS NOT LISTED BELOW 2.5-3.5 FOR PROSTHETIC HEART VALVE REPLACEMENT 2.5-3.5 RECURRENT THROMBOSIS Performing Lab: see note - [facility] BNP Reviewed date:11/02/2024 03:17:53 PM Interpretation: Performing Lab: Notes/Report: [facility] , NT Pro B Type Natriuretic Pept 398.0 <=900.0 pg/mL Performing Lab: see note ML - [facility] LB CBC AUTO DIFF Reviewed date:11/02/2024 03:17:53 PM Interpretation: Performing Lab: Notes/Report: [facility] , White Blood Count 16.1 4.0-11.0 10 [...] 3/uL Performing Lab: see note ML - [facility] LB PROF 14(COMP METB) Reviewed date:11/02/2024 03:17:53 PM Interpretation: Performing Lab: Notes/Report: [facility] , Sodium 135 136-145 mmol/L Potassium 3.6 [...] Globulin Ratio 0.7 Performing Lab: see note - [facility] LB Prothrombin Time INR Reviewed date:11/02/2024 03:17:53 PM Interpretation: Performing Lab: Notes/Report: [facility] , Prothrombin Time 11.9 9.0-11.6 sec INR 1.14 2.0-3.0 CONDITIONS NOT LISTED BELOW 2.5-3.5 FOR PROSTHETIC HEART VALVE REPLACEMENT DESIRED INR: 2.5-3.5 RECURRENT THROMBOSIS Performing Lab: see note - [facility] LB XR chest 2V Reviewed date:11/02/2024 03:17:53 PM Interpretation: Performing Lab: Notes/Report: Source Facility: [place] [address] XRay Report Signed Patient: KING MORENO MR#: [id number] : 1960 Acct:[id number] Age/Sex: 63 / F ADM Date: 10/30/24 Loc: [place] 203-[address]: Parmjit Snowden M.D. Ordering Physician: Parmjit Snowden M.D. Date of Service: 11/01/24 Procedure(s): XR chest 2V Accession Number(s): [id number] cc: Conchita Aden M.D.; Parmjit Snowden M.D. [place] [address] Patient Name: KING MORENO MRN: [id number] date: 1960 Sex: F Assigned Patient Location: [place] Current Patient Location: [place] Accession/Order Number: [id number] Exam Date: 11/01/2024 09:30 Report Date: 11/01/2024 [...] Signed By: 11/01/24 1002 DD/ 1000 TD/TT: Sample Mounter: [place] [address] XRay Report Signed Patient: NANETTE MORENO MR#: [id number] : 1960 Acct:[id number] Age/Sex: 63 / F ADM Date: 10/30/24 Loc: [place] 203-[address]: Fredi Snowden M.D. Ordering Physician: Parmjit Snowden M.D. Date of Service: 11/01/24 Procedure(s): XR [address] st 2V Accession Number(s): [id number] cc: Conchita Aden M.D.; Parmjit Snowden M.D. The [place] [id number] Patient Name: KING MORENO MRN: [id number] date: 1960 Sex: F Assigned Patient Location: [place] Current Patient Location: [place] Accession/Order Numb er: [id number] Exam Date: 09:30 Report Date: 11/01/2024 10:00 At the request of: PARMJIT SNOWDEN Procedure: XR chest 2V EXAMINATION: XR ches [...] Signed By: 11/01/24 1002 DD/ 1000 TD/TT: Sample Mounter: CBC AUTO DIFF Reviewed date:11/02/2024 03:17:53 PM Interpretation: Performing Lab: Notes/Report: [facility] , White Blood Count 20.8 4.0-11.0 10 [...] 3/uL Performing Lab: see note ML - [facility] MAGNESIUM Reviewed date:11/02/2024 03:17:53 PM Interpretation: Performing Lab: Notes/Report: [facility] , Magnesium 2.0 1.8-2.4 mg/dL Performing Lab: see note - [facility] PROF 14(COMP METB) Reviewed date:11/02/2024 03:17:53 PM Interpretation: Performing Lab: Notes/Report: [facility] , Sodium 139 136-145 mmol/L Potassium 4.0 [...] Globulin Ratio 0.6 Performing Lab: see note ML - [facility] LB Prothrombin Time INR Reviewed date:11/02/2024 03:17:53 PM Interpretation: Performing Lab: Notes/Report: [facility] , Prothrombin Time 12.9 9.0-11.6 sec INR 1.24 2.5-3.5 FOR PROSTHETIC HEART VALVE REPLACEMENT DESIRED INR: 2.5-3.5 RECURRENT THROMBOSIS 2.0-3.0 CONDITIONS NOT LISTED BELOW Performing Lab: see note ML - [facility] LB Reason For Referral No Information Problems Problem Type SNOMED Code ICD Code Onset Dates Problem Status W/U Status Risk Notes Problem Benign essential HTN (I10) Active confirmed Problem Bipolar 1 disorder (126741139) Bipolar 1 disorder (F31.9) Active confirmed Problem Diabetes mellitus (28506274) Diabetes mellitus (E11.9) Active confirmed Plan Of Treatment No Information Insurance Providers Payer Name Payer Address Payer Phone Subscriber Number Group Number Insured Name Patient Relationship to Insured Coverage Start Date Coverage End Date [employer] DUAL ADV PRIMARY MEDICARE [address] [place] [address] [id number] King Moreno Self - patient is the insured 3 MEDICAID [place] 2ND INS [address] OFFICE OF [place], [place] [id number] King Moreno Self - patient is the insured
--- OUTSIDE RECORDS SUMMARY | 2025-03-25 07:14 | XMS_ITS | Encounter Summary ---
Author Organization [facility] Address [address] [place] [address] Phone Care Team Providers Care Fruit Loader Name Role Phone Tremaine West DO Primary Care Provider Ania Brothers PICK AND SHOVEL MAN-RURAL MAIL CONTRACTOR Unavailable Unavailable June Preston MD Unavailable Sol Keita SKIN INSTALLER Unavailable [phone] June Preston MD Unavailable Oscar Rodriguez MD Unavailable [phone] Generic Provider, No Assigned Pcp Primary Car e Provider Unavailable Diane Min RN Unavailable Unavailable June Preston MD Unavailable Conchita Aden MD Primary Care Provider [phone] Diane Min RN Unavailable Unavailable Encounter Details Date Type Department Care Team (Late st Contact Info) Description 07/22/2023 Scanned Document [facility] LEGACY [address] [place] [address] Conversion, Onbase Social History Tobacco Use Types [...] Description 04/03/2025 1:00 PM EDT Hospital Encounter [facility] [address] [place] [address] 04/14/2025 10:30 AM EDT [facility] [address] [place] [address] Kervin Fair MD [address] [place] [address] Ventricular tachycardia (Multi) 04/14/2025 12:00 PM EDT - 04/14/2025 4:00 PM EDT Surgery [facility] [address] [place] [address] Kervin Fair MD [address] [place] [address] [place] [[address] (CPT )] 07/14/2025 1:00 PM EDT Office Visit [facility] [address] [facility] [address] [place] [address] Oscar Rodriguez MD 703 [facility], [address] [place] [address] 09/26/2025 12:20 PM EST Appointment [facility] [address] [place] [address] 09/26/2025 1:00 PM EST Office Visit [facility] [address] [facility] [address] [place] [address] June Preston MD [address] [facility] Office [facility], [address] [place] [address] documented as of this encounter Procedures Procedure [...] documented as of this encounter Care Teams Fruit Loader Relationship Specialty Start Date End Date Tremaine West DO [address] Amor West DO [address] [address] PCP - General 01/22/22 11/05/23 Generic Provider, No Assigned Pcp, [place] [address] PCP - General Cattle And Wheat Farmer 08/08/24 11/10/24 Conchita Aden MD [address] [place] [address] [place] [address] PCP - General Family Medicine 11/11/24 Ania Brothers, PICK AND SHOVEL MAN-RURAL MAIL CONTRACTOR [address] DO [address] [place] [address] Nurse Practitioner Cardiology 09/30/23 02/16/24 June Preston MD [address] Amor West DO [facility] [address] [place] [address] Welding Machine Operator Electron Beam Cardiology 09/30/23 02/16/24 Sol Keita, SKIN INSTALLER Maintenance And Custodian SupervisorSteel Sampler 02/19/24 05/17/24 June Preston MD [address] [facility], [address] [place] [address] Consulting Physician Cardiology 02/19/24 02/29/24 Oscar Rodriguez MD 703 [facility], [address] [place] [address] Consulting Physician Cardiology 02/19/24 02/29/24 Diane Min, director of quantitative researchSteel Sampler 09/05/24 12/06/24 June Preston MD [address] [facility], [address] [place] [address] Welding Machine Operator Electron Beam Electrophysiology 09/13/24 Diane Min, director of quantitative researchSteel Sampler 01/16/25 01/31/25 documented as of this encounter
--- NOTE | 2025-03-25 07:31 | ED.GENADUL1 ---
HPI HPI - General Adult General Chief complaint: Extremity Problem, Nontraumatic Stated complaint: R LEG MUSCLE SPASMS Time Seen by Provider: 03/25/25 07:22 Source: patient Mode of arrival: walk-in History of Present Illness HPI narrative: 64-year-old female presents for twitching of her right leg. It started last night she states she has never had it previously. She was seen here last night for the same issue and had blood work which showed no abnormality including the calcium, magnesium, and potassium. It is still twitching from time to time. No back pain or injury. Related Data Home Medications ?Medication ?Instructions ?Recorded ?Confirmed amiodarone 200 mg tablet 200 mg PO Q24H 10/22/24 03/25/25 lansoprazole 30 mg capsule,delayed 30 mg PO .ACB 10/22/24 03/25/25 release meclizine 25 mg tablet 25 mg PO BID PRN dizziness 10/22/24 03/25/25 melatonin 5 mg tablet 5 mg PO DAILY 10/22/24 03/25/25 metoprolol succinate 25 mg 25 mg PO DAILY 10/22/24 03/25/25 tablet,extended release 24 hr mexiletine 150 mg capsule 150 mg PO Q8H 10/22/24 03/25/25 oxybutynin chloride 10 mg 10 mg PO DAILY 10/22/24 03/25/25 tablet,extended release 24 hr ranolazine 500 mg tablet,extended 500 mg PO Q12H 10/22/24 03/25/25 release,12 hr rosuvastatin 10 mg tablet 10 mg PO DAILY 10/22/24 03/25/25 magnesium 200 mg tablet 200 mg PO BID 10/30/24 03/25/25 lisinopril 5 mg tablet 5 mg PO .QD 10/31/24 03/25/25 quetiapine 100 mg tablet 100 mg PO .QHS 10/31/24 03/25/25 baclofen 10 mg tablet 10 mg PO TID PRN muscle spasm 02/01/25 03/25/25 gabapentin 300 mg capsule 300 mg PO Q8H 03/25/25 03/25/25 quetiapine 200 mg tablet 200 mg PO DAILY 03/25/25 03/25/25 sertraline 25 mg tablet 25 mg PO Q24H 03/25/25 03/25/25 Previous Rx's ?Medication ?Instructions ?Recorded lorazepam 0.5 mg tablet (Ativan) 0.5 mg PO Q8H PRN twitching 4 days 03/25/25 #14 tabs methylprednisolone 4 mg tablets in See Rx Instructions .Route 03/25/25 a dose pack (Medrol (Mat)) .COMPLEX #21 ea Allergies Allergy/AdvReac Type Severity Reaction Status Date / Time No Known Drug Allergies Allergy Verified 03/11/25 16:43 Opioid HPI Opioid Management Most Recent Opioid Data: Last Pain Scale 10 03/11/25, 16:43 Last Pain Intensity 0 10/31/24, 09:34 Last ORT Total Score 8 10/30/24, 17:53 Last ORT Risk Category High Risk 10/30/24, 17:53 Review of Systems ROS Narrative A ten point review of systems is negative except as noted above. PFSH PFSH Medical History Pacemaker ?Z95.0 - Presence of cardiac pacemaker (ICD-10) Acute GI bleeding ?K92.2 - Gastrointestinal hemorrhage, unspecified (ICD-10) Elevated INR ?R79.1 - Abnormal coagulation profile (ICD-10) Pneumonia ?J18.9 - Pneumonia, unspecified organism (ICD-10) Dyspnea ?R06.00 - Dyspnea, unspecified (ICD-10) Dizziness ?R42 - Dizziness and giddiness (ICD-10) Diabetes ?E11.9 - Type 2 diabetes mellitus without complications (ICD-10) Bipolar 1 disorder, depressed ?F31.9 - Bipolar disorder, unspecified (ICD-10) HTN (hypertension) ?I10 - Essential (primary) hypertension (ICD-10) High cholesterol ?E78.00 - Pure hypercholesterolemia, unspecified (ICD-10) Afib ?I48.91 - Unspecified atrial fibrillation (ICD-10) Surgical History H/O tubal ligation ?Z98.51 - Tubal ligation status (ICD-10) Hx of cholecystectomy ?Z90.49 - Acquired absence of other specified parts of digestive tract (ICD-10) Status post other internal cardiac defibrillator procedure ?Z95.0 - Presence of cardiac pacemaker (ICD-10) History of bowel resection ?Z90.49 - Acquired absence of other specified parts of digestive tract (ICD-10) Family History Father Heart attack Brother Heart attack Sister Heart attack Diabetes Son Diabetes Social History Within the past year, how often did you have a drink containing alcohol: never Within the past year, how often did you have six or more drinks on one occasion: never Score interpretation: A score less than 3 is consistent with normal alcohol consumption. 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 General: The patient appears well and in no apparent distress. Patient is resting comfortably on cart. Skin: Warm, dry, no pallor noted. There is no rash noted. Head: Normocephalic, atraumatic Eye: Normal conjunctiva, no drainage Ears, Nose, Mouth, and Throat: oral mucosa is moist. Nares patent. Cardiovascular: Regular Rate and Rhythm Respiratory: Patient is in no distress, no accessory muscle use, lungs are clear to auscultation, no wheezing, rales or rhonchi Back: non-tender, no bruise or rash or palpable tenderness GI: Soft and nontender Musculoskeletal: The patient has no evidence of calf tenderness, no pitting edema, symmetrical pulses noted bilaterally Neurological: A&O, normal speech; motor strength intact to her lower extremities. I did not witness any twitching of her leg while I was in the room. Psychiatric: Cooperative Constitutional Vital Signs, click to edit/add: Last Vital Signs Temp 98.7 F 03/25/25 07:08 Pulse 87 03/25/25 07:08 Resp 18 03/25/25 07:08 BP 122/69 03/25/25 07:08 Pulse Ox 99 03/25/25 07:08 O2 Del Method Room Air 03/25/25 07:08 Course Vital Signs Vital signs: Vital Signs Temperature 98.7 F 03/25/25 07:08 Pulse Rate 87 03/25/25 07:08 Respiratory Rate 18 03/25/25 07:08 Blood Pressure 122/69 03/25/25 07:08 Pulse Oximetry 99 03/25/25 07:08 Oxygen Delivery Method Room Air 03/25/25 07:08 Temperature 98.7 F 03/25/25 07:08 Pulse Rate 87 03/25/25 07:08 Respiratory Rate 18 03/25/25 07:08 Blood Pressure 122/69 03/25/25 07:08 Pulse Oximetry 99 03/25/25 07:08 Oxygen Delivery Method Room Air 03/25/25 07:08 Medical Decision Making MDM Narrative Medical decision making narrative: X-rays of lumbar spine showed moderate degenerative disc disease at the L2, L3 level. They suggest small posterior lateral disc bulge components contributing to neuroforaminal stenosis. She is referred to orthopedics for appropriate follow-up and was prescribed Medrol Dosepak and Ativan. She had been given Norflex here but there was no improvement. Findings are discussed thoroughly with the patient. The need for follow-up was also explained. Differential Diagnosis Differential Diagnosis: Electrolyte abnormality, degenerative disc disease Imaging Data Lumbar spine x-rays: Radiologist's impression: Moderate degenerative disc disease at the L2-L3 level, small posterior lateral disc bulge components in the mid and lower lumbar spine levels contribute to neural foraminal stenosis Discharge Plan Discharge Chief Complaint: Extremity Problem, Nontraumatic Clinical Impression: Frequent fasciculation of limb muscle, Bulging lumbar disc Patient Disposition: Home, Self-Care Time of Disposition Decision: 09:32 Condition: Good Prescriptions / Home Meds: New methylprednisolone [Medrol (Mat)] 4 mg tablets,dose pack See Rx Instructions .Route .COMPLEX Qty: 21 0RF Rx Instructions: Take as directed lorazepam [Ativan] 0.5 mg tablet 0.5 mg PO Q8H PRN (Reason: twitching) 4 Days Qty: 14 0RF No Action baclofen 10 mg tablet 10 mg PO TID PRN (Reason: muscle spasm) gabapentin 300 mg capsule 300 mg PO Q8H quetiapine 200 mg tablet 200 mg PO DAILY sertraline 25 mg tablet 25 mg PO Q24H amiodarone 200 mg tablet 200 mg PO Q24H lansoprazole 30 mg capsule,delayed release(DR/EC) 30 mg PO .ACB meclizine 25 mg tablet 25 mg PO BID PRN (Reason: dizziness) melatonin 5 mg tablet 5 mg PO DAILY metoprolol succinate 25 mg tablet extended release 24 hr 25 mg PO DAILY mexiletine 150 mg capsule 150 mg PO Q8H oxybutynin chloride 10 mg tablet extended release 24hr 10 mg PO DAILY ranolazine 500 mg tablet extended release 12 hr 500 mg PO Q12H rosuvastatin 10 mg tablet 10 mg PO DAILY magnesium 200 mg tablet 200 mg PO BID quetiapine 100 mg tablet 100 mg PO .QHS lisinopril 5 mg tablet 5 mg PO .QD Print Language: Lao Instructions: Muscle Spasm (ED), Degenerative Disc Disease (ED) Referrals: JOVANI HANSON [Primary Care Provider, Unknown] - 1 week Zurdo Mcallister MD [Physician] - 1 week
[2025-03-25] MEDS: ORPHENADRINE 60 MG/2 ML VIAL IM (07:41)
[2025-03-25 09:39] VITALS: BP 120/72; PULSE 86; O2SAT 98
== END 2025-03-25 09:40 | disposition home or self-care (01) ==
PROVIDERS: Emergency Provider Emergency Medicine; PCP Nurse Practitioner Family
DX: R25.3 Fasciculation (principal); M51.369 Other intervertebral disc degeneration, lumbar region without mention of lumbar back pain or lower extremity pain; Z95.0 Presence of cardiac pacemaker; Z98.51 Tubal ligation status; Z90.49 Acquired absence of other specified parts of digestive tract; M48.061 Spinal stenosis, lumbar region without neurogenic claudication
CPT/HCPCS: 72100; 99283; J2360

== ENCOUNTER 2025-03-25 23:28 | Emergency (ER) | payer MEDICARE, MEDICAID, SELFPAY ==
[2025-03-25 23:32] VITALS: BP 163/73; PULSE 112; TEMP 38.1; O2SAT 91; O2SAT 95; BMI 27.0
[2025-03-25 23:33] VITALS: BP 163/126; O2SAT 93
[2025-03-25 23:36] VITALS: BP 163/73; O2SAT 94
[2025-03-25 23:40] VITALS: O2SAT 96
[2025-03-25 23:50] VITALS: O2SAT 94
[2025-03-26] VITALS (58 sets, daily range): BP systolic 92–171; BP diastolic 55–78; PULSE 74–106; TEMP 37.3; O2SAT 92–98
--- NOTE | 2025-03-26 00:01 | ECG_ITS ---
[facility] Test Date: 2025-03-26 Pat Name: KING MORENO Department: Room: - Gender: Female [employer]: : [id number] Requested By: Yanick Marino Order Number: [id number] Bri MD: CROW MORRISON M.D. Measurements Intervals [place] Rate: 98 P: 73 FL: 130 QRS: 80 QRSD: 82 T: 51 QT: 350 QTc: 406 Interpretive Statements 1100 Sinus rhythm 3433 Septal myocardial infarction, probably old 4564 Twave abnormality, possible lateral ischemia 9150 abnormal ECG Compared to ECG 01/08/2025 15:14:09 Myocardial infarct finding now present Electronically Signed On 03-26-2025 13:57:27 EDT by CROW MORRISON M.D.
[2025-03-26 00:11] LABS: Hematocrit 30.7 % (36.0-48.0); Hemoglobin 9.8 g/dL (12.0-16.0); Mean Corpuscular HGB Conc 31.9 g/dL (29.9-35.2); Mean Corpuscular Volume 72.1 fL (81.0-99.0); Mean Platelet Volume 10.3 fL (9.5-13.5); Platelet Count 599 10^3/uL (150-450); Red Blood Count 4.26 10^6/uL (4.20-5.40); Red Cell Distribution Width 20.4 % (11.0-15.0)
[2025-03-26] MEDS: 0.9 % SODIUM CHLORIDE 1,000 ML 999 ML IV (00:11)
[2025-03-26] MEDS: ACETAMINOPHEN 500 MG TABLET 1000 MG PO (00:11)
[2025-03-26 00:28] LABS: Alanine Aminotransferase 52 U/L (14-59); Albumin Globulin Ratio 0.8; Albumin Level 3.2 g/dL (3.4-5.0); Alkaline Phosphatase 64 U/L (46-116); Anion Gap 16.1; Aspartate Amino Transferase 44 U/L (15-37); BUN Creatinine Ratio 4.8; Bilirubin Total 0.5 mg/dL (0.2-1.0); Calcium 8.7 mg/dL (8.5-10.1); Carbon Dioxide 21.5 mmol/L (21.0-32.0); Chloride 95 mmol/L (98-107); Estimated GFR (African America >60 (>=60 mL/min/1.73m^2); Estimated GFR (Non-African Ame >60 (>=60 mL/min/1.73m^2); Glucose 103 mg/dL (74-106); Magnesium 1.5 mg/dL (1.8-2.4); Potassium 3.6 mmol/L (3.5-5.1); Sodium 129 mmol/L (136-145); Total Protein 7.2 g/dL (6.4-8.2)
[2025-03-26 00:34] LABS: White Blood Count 37.3 10^3/uL (4.0-11.0)
[2025-03-26 00:35] LABS: Lactate/Lactic Acid 4.1 mmol/L (0.4-2.0)
[2025-03-26 00:49] LABS: Atypical Lymphocytes Abs Man 2.23; Lymphocytes Absolute Manual 5.22 10^3/uL (1.20-3.80); Monocytes Absolute Manual 0.74 10^3/uL (0.30-0.80); Segmented Neut Absolute Manual 29.09 10^3/uL (1.4-6.5)
[2025-03-26 00:51] LABS: Hypochromasia 1+
[2025-03-26 00:52] LABS: Anisocytosis 1+
--- NOTE | 2025-03-26 01:19 | ED.GENADUL1 ---
HPI HPI - General Adult General Chief complaint: Recheck/Abnormal Lab/Rx Stated complaint: BODY IS JITTERY INSIDE Time Seen by Provider: 03/25/25 23:31 Source: patient Mode of arrival: walk-in Limitations: no limitations History of Present Illness HPI narrative: cc - I feel shaky Pt who had been to the ED 24hrs ago with negative workup for twitchy legs and was seen again at 7am for same complaint now returns complaining of feeling really shaky all over . She had lumbar xrays - because of the complaint of leg twitches - showing lumbar disc changes around 730am this morning and was prescribed ativan and medrol dose pack this morning and the shakiness started shortly thereafter. She now returns to the ED for evaluation saying that the leg twitches have decreased but I just feel really shaky . She is febrile on arrival. The patient denies any headache, visual change, sore throat, neck pain, back pain, problems urinating, flank pain, abdominal pain. She denies any numbness or tingling. She denies any weakness or difficulty ambulating. Related Data Home Medications ?Medication ?Instructions ?Recorded ?Confirmed amiodarone 200 mg tablet 200 mg PO Q24H 10/22/24 03/25/25 lansoprazole 30 mg capsule,delayed 30 mg PO .ACB 10/22/24 03/25/25 release meclizine 25 mg tablet 25 mg PO BID PRN dizziness 10/22/24 03/25/25 melatonin 5 mg tablet 5 mg PO DAILY 10/22/24 03/25/25 metoprolol succinate 25 mg 25 mg PO DAILY 10/22/24 03/25/25 tablet,extended release 24 hr mexiletine 150 mg capsule 150 mg PO Q8H 10/22/24 03/25/25 oxybutynin chloride 10 mg 10 mg PO DAILY 10/22/24 03/25/25 tablet,extended release 24 hr ranolazine 500 mg tablet,extended 500 mg PO Q12H 10/22/24 03/25/25 release,12 hr rosuvastatin 10 mg tablet 10 mg PO DAILY 10/22/24 03/25/25 magnesium 200 mg tablet 200 mg PO BID 10/30/24 03/25/25 lisinopril 5 mg tablet 5 mg PO .QD 10/31/24 03/25/25 quetiapine 100 mg tablet 200 mg PO .QHS 10/31/24 03/25/25 baclofen 10 mg tablet 10 mg PO TID PRN muscle spasm 02/01/25 03/25/25 Previous Rx's ?Medication ?Instructions ?Recorded lorazepam 0.5 mg tablet (Ativan) 0.5 mg PO Q8H PRN twitching 4 days 03/25/25 #14 tabs methylprednisolone 4 mg tablets in See Rx Instructions .Route 03/25/25 a dose pack (Medrol (Mat)) .COMPLEX #21 ea Allergies Allergy/AdvReac Type Severity Reaction Status Date / Time No Known Drug Allergies Allergy Verified 03/25/25 23:37 Opioid HPI Opioid Management Most Recent Opioid Data: Last Pain Scale 10 03/11/25, 16:43 Last Pain Intensity 0 10/31/24, 09:34 Last MAR Pain Assessment Today, 00:11 Last ORT Total Score 8 10/30/24, 17:53 Last ORT Risk Category High Risk 10/30/24, 17:53 PFSH PFSH Medical History Pacemaker ?Z95.0 - Presence of cardiac pacemaker (ICD-10) Acute GI bleeding ?K92.2 - Gastrointestinal hemorrhage, unspecified (ICD-10) Elevated INR ?R79.1 - Abnormal coagulation profile (ICD-10) Pneumonia ?J18.9 - Pneumonia, unspecified organism (ICD-10) Dyspnea ?R06.00 - Dyspnea, unspecified (ICD-10) Dizziness ?R42 - Dizziness and giddiness (ICD-10) Diabetes ?E11.9 - Type 2 diabetes mellitus without complications (ICD-10) Bipolar 1 disorder, depressed ?F31.9 - Bipolar disorder, unspecified (ICD-10) HTN (hypertension) ?I10 - Essential (primary) hypertension (ICD-10) High cholesterol ?E78.00 - Pure hypercholesterolemia, unspecified (ICD-10) Afib ?I48.91 - Unspecified atrial fibrillation (ICD-10) Surgical History H/O tubal ligation ?Z98.51 - Tubal ligation status (ICD-10) Hx of cholecystectomy ?Z90.49 - Acquired absence of other specified parts of digestive tract (ICD-10) Status post other internal cardiac defibrillator procedure ?Z95.0 - Presence of cardiac pacemaker (ICD-10) History of bowel resection ?Z90.49 - Acquired absence of other specified parts of digestive tract (ICD-10) Family History Father Heart attack Brother Heart attack Sister Heart attack Diabetes Son Diabetes Social History Within the past year, how often did you have a drink containing alcohol: never Within the past year, how often did you have six or more drinks on one occasion: never Score interpretation: A score less than 3 is consistent with normal alcohol consumption. 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 febrile T100.5F General: In no apparent distress but has some chills. Skin: Warm, dry, no pallor noted. No rash. Head: Normocephalic, atraumatic. Neck: Supple, non-tender. No meningismus. No cervical lymphadenopathy. Eye: Pupils are equal, round and EOMI. No scleral icterus. Ears, Nose, Mouth, and Throat: TM are clear, no posterior oropharynx erythema or nasal mucosal hypertrophy, uvula is mid-line Oral mucosa is moist Cardiovascular: Tachycardia. Respiratory: No accessory muscle use or respiratory distress. Lungs are clear to auscultation, no wheezing, rales or rhonchi Back: No midline thoracic or lumbar vertebral tenderness. No CVA tenderness Musculoskeletal: normal ROM, no calf or popliteal tenderness, no lower extremity edema/swelling GI: Abdomen is soft, non-distended. Normal bowel sounds. No tenderness to palpation. No rebound, guarding, or rigidity noted. Neurological: A&O x4. No cranial nerve dysfunction observed. No truncal ataxia. Moves all extremities. Sensation intact. No lower extremity sensory changes, weakness or functional deficit. Psychiatric: Cooperative and interactive. Normal mood and affect. Constitutional Vital Signs, click to edit/add: Last Vital Signs Temp 99.1 F 03/26/25 01:44 Pulse 92 H 03/26/25 03:31 Resp 21 H 03/26/25 03:31 BP 130/75 03/26/25 03:31 Pulse Ox 96 03/26/25 03:31 O2 Del Method Room Air 03/25/25 23:32 Course Vital Signs Vital signs: Vital Signs Temperature 100.5 F H 03/25/25 23:32 Pulse Rate 112 H 03/25/25 23:32 Respiratory Rate 20 03/25/25 23:32 Blood Pressure 163/73 H 03/25/25 23:32 Pulse Oximetry 95 03/25/25 23:32 Oxygen Delivery Method Room Air 03/25/25 23:32 Temperature 99.1 F 03/26/25 01:44 Pulse Rate 92 H 03/26/25 03:31 Respiratory Rate 21 H 03/26/25 03:31 Blood Pressure 130/75 03/26/25 03:31 Pulse Oximetry 96 03/26/25 03:31 Oxygen Delivery Method Room Air 03/25/25 23:32 Medical Decision Making MDM Narrative Medical decision making narrative: Patient was placed on monitor worker and EKG obtained. Blood drawn and sent for evaluation, including blood cultures and lactate per sepsis protocol. Portable chest x-ray was obtained. The patient was given oral Tylenol for fever. She was given a liter of normal saline IV fluid while we awaited the results of the blood testing and x-rays. No pneumonia identified on chest x-ray White blood cell count, which had been normal 24 hours ago, was now markedly elevated at 37.3 with left shift. Lactate elevated at 4.1. Chemistry, which was normal yesterday, now shows decreased sodium at 129 and decreased chloride at 95. Renal function is normal. LFTs are normal. Magnesium is now low after being normal 24 hours ago. Attempt was made to obtain urine but the patient was unable to pass any urine. She said she had gone prior to arrival. A second liter of normal saline IV fluids ordered to be given. Patient was also ordered to be given 2 g of IV magnesium The patient received IV Zosyn 4.5 g. Call placed to the hospitalist to discuss. @0130 I spoke with Juana Lee. She would like me to obtain a CT abd/pelvis and to have the ED nurse straight cath the patient - who is currently getting her 2nd liter of NS IVF. See the was ordered and obtained with IV contrast. @ 0340 she complained of acute flare of her restless legs - I ordered her to receive oral Gabapentin 300mg and oral Baclofen 10mg. She refused those. When I asked her what she might want for her restless leg syndrome she replied I do not know but nothing is working . Per radiologist, CT reveals no acute findings to account for the patient's potential sepsis or infection or account for why her white blood cell count is still high. See final radiologist report detailed above. The telehospitalist did not feel comfortable having this patient stay here without any kind of hematological or Infectious Disease specialty assistance, therefore a call was placed to the hospitalist at [facility] in [place] to discuss transfer to their facility for further evaluation and testing. @ [address] Smith and he agreed to accept the patient's transfer to their facility for admission to the hospitalist service at [facility]. Pt informed of need to go to facility with hematology, other specialty support and is agreeable. NOTE - I could not access the sepsis order set when the patient arrived - the set would not show up even when I searched. I placed the orders for the blood cultures manually shortly after the patient arrived - along with the other orders. The blood cultures were obtained at arrival, prior to the zosyn being given. Lab called at 240am and said that there was no order for the blood cultures - however they had been ordered with the sepsis set. When we checked the historical order list at 245am, they were no longer present, which is why I re-ordered them. However they were ordered and obtained along with all of the other orders placed and followed at the patient's arrival and were there when I placed the orders initially. I do not know why they were later missing. - Baljinder, DO Lab Data Lab results reviewed: Yes I reviewed the patient's lab results Labs: Lab Results 03/25/25 03/26/25 03/26/25 Range/Units 23:40 01:55 02:50 WBC 37.3 H* (4.0-11.0) 10^3/uL RBC 4.26 (4.20-5.40) 10^6/uL Hgb 9.8 L (12.0-16.0) g/dL Hct 30.7 L (36.0-48.0) % MCV 72.1 L (81.0-99.0) fL MCH 23.0 L (26.7-34.0) pg MCHC 31.9 (29.9-35.2) g/dL RDW 20.4 H (11.0-15.0) % Plt Count 599 H (150-450) 10^3/uL MPV 10.3 (9.5-13.5) fL Seg Neuts % (Manual) 78.0 H (43.0-75.0) Lymphocytes % (Manual) 14.0 L (20.5-60.0) % Atypical Lymphs % (Man) 6.0 % Monocytes % (Manual) 2.0 (1.7-12.0) % Eosinophils % (Manual) 0.0 L (0.9-7.0) % Basophils % (Manual) 0.0 L (0.2-2.0) % Neutrophils # (Manual) 29.09 H (1.4-6.5) 10^3/uL Lymphocytes # (Manual) 5.22 H (1.20-3.80) 10^3/uL Abs Atypical Lymphs Man 2.23 Monocytes # (Manual) 0.74 (0.30-0.80) 10^3/uL Eosinophils # (Manual) 0.00 (0.00-0.70) 10^3/uL Basophils # (Manual) 0.00 (0.00-0.10) 10^3/uL Hypochromasia 1+ Anisocytosis 1+ Sodium 129 L (136-145) mmol/L Potassium 3.6 (3.5-5.1) mmol/L Chloride 95 L (98-107) mmol/L Carbon Dioxide 21.5 (21.0-32.0) mmol/L Anion Gap 16.1 BUN 3.0 L (7.0-18.0) mg/dL Creatinine 0.62 (0.55-1.02) mg/dL Est GFR ( Amer) >60 (>=60 mL/min/1.73m^2) Est GFR (Non-Af Amer) >60 (>=60 mL/min/1.73m^2) BUN/Creatinine Ratio 4.8 Glucose 103 (74-106) mg/dL Lactate 4.1 H* 2.1 H* (0.4-2.0) mmol/L Calcium 8.7 (8.5-10.1) mg/dL Magnesium 1.5 L (1.8-2.4) mg/dL Total Bilirubin 0.5 (0.2-1.0) mg/dL AST 44 H (15-37) U/L ALT 52 (14-59) U/L Alkaline Phosphatase 64 (46-116) U/L Total Protein 7.2 (6.4-8.2) g/dL Albumin 3.2 L (3.4-5.0) g/dL Globulin 4.0 g/dL Albumin/Globulin Ratio 0.8 Urine Color (YELLOW) Urine Clarity (CLEAR) Urine pH (5.0-9.0) Ur Specific [place] (1.005-1.025) Urine Protein (NEG/TRACE) mg/dL Urine Glucose (UA) (NEGATIVE) mg/dL Urine Ketones (NEGATIVE) mg/dL Urine Occult Blood (NEGATIVE) Urine Nitrite (NEGATIVE) Urine Bilirubin (NEGATIVE) Urine Urobilinogen (0.2-1.0) EU/dL Ur Leukocyte Esterase (NEGATIVE) Urine RBC (0-2) #/HPF Urine WBC (NONE SEEN) #/HPF Ur Squamous Epith Cells (NONE/RARE) #/LPF Urine Crystals (None Seen) #/HPF Urine Bacteria (NONE SEEN) #/HPF Urine Casts (NONE SEEN) #/LPF Urine Mucus (NONE SEEN) Ur Culture Indicated? SARS-CoV-2 Ag (CV2AG) Negative (NEGATIVE) 03/26/25 Range/Units 03:11 WBC (4.0-11.0) 10^3/uL RBC (4.20-5.40) 10^6/uL Hgb (12.0-16.0) g/dL Hct (36.0-48.0) % MCV (81.0-99.0) fL MCH (26.7-34.0) pg MCHC (29.9-35.2) g/dL RDW (11.0-15.0) % Plt Count (150-450) 10^3/uL MPV (9.5-13.5) fL Seg Neuts % (Manual) (43.0-75.0) Lymphocytes % (Manual) (20.5-60.0) % Atypical Lymphs % (Man) % Monocytes % (Manual) (1.7-12.0) % Eosinophils % (Manual) (0.9-7.0) % Basophils % (Manual) (0.2-2.0) % Neutrophils # (Manual) (1.4-6.5) 10^3/uL Lymphocytes # (Manual) (1.20-3.80) 10^3/uL Abs Atypical Lymphs Man Monocytes # (Manual) (0.30-0.80) 10^3/uL Eosinophils # (Manual) (0.00-0.70) 10^3/uL Basophils # (Manual) (0.00-0.10) 10^3/uL Hypochromasia Anisocytosis Sodium (136-145) mmol/L Potassium (3.5-5.1) mmol/L Chloride (98-107) mmol/L Carbon Dioxide (21.0-32.0) mmol/L Anion Gap BUN (7.0-18.0) mg/dL Creatinine (0.55-1.02) mg/dL Est GFR ( Amer) (>=60 mL/min/1.73m^2) Est GFR (Non-Af Amer) (>=60 mL/min/1.73m^2) BUN/Creatinine Ratio Glucose (74-106) mg/dL Lactate (0.4-2.0) mmol/L Calcium (8.5-10.1) mg/dL Magnesium (1.8-2.4) mg/dL Total Bilirubin (0.2-1.0) mg/dL AST (15-37) U/L ALT (14-59) U/L Alkaline Phosphatase (46-116) U/L Total Protein (6.4-8.2) g/dL Albumin (3.4-5.0) g/dL Globulin g/dL Albumin/Globulin Ratio Urine Color Lt. yellow (YELLOW) Urine Clarity Clear (CLEAR) Urine pH 7.0 (5.0-9.0) Ur Specific [place] <=1.005 A (1.005-1.025) Urine Protein Negative (NEG/TRACE) mg/dL Urine Glucose (UA) Negative (NEGATIVE) mg/dL Urine Ketones Negative (NEGATIVE) mg/dL Urine Occult Blood Negative (NEGATIVE) Urine Nitrite Negative (NEGATIVE) Urine Bilirubin Negative (NEGATIVE) Urine Urobilinogen 0.2 (0.2-1.0) EU/dL Ur Leukocyte Esterase Negative (NEGATIVE) Urine RBC None seen (0-2) #/HPF Urine WBC None seen (NONE SEEN) #/HPF Ur Squamous Epith Cells Few A (NONE/RARE) #/LPF Urine Crystals None seen (None Seen) #/HPF Urine Bacteria Trace A (NONE SEEN) #/HPF Urine Casts None seen (NONE SEEN) #/LPF Urine Mucus None seen (NONE SEEN) Ur Culture Indicated? No SARS-CoV-2 Ag (CV2AG) (NEGATIVE) ECG Data Attestation: I personally reviewed and interpreted this ECG as follows: Interpretation: EKG interpretation: Emergency Department physician interpretation. Normal sinus rhythm at 98bpm. Normal axis, normal intervals, nonspecific changes without ST segment elevation or depression. Discharge Plan Discharge Chief Complaint: Recheck/Abnormal Lab/Rx Clinical Impression: Sepsis, Fever of unknown origin (FUO), Restless leg syndrome Patient Disposition: [facility] Time of Disposition Decision: 01:46 Discharge Location: [facility]
[2025-03-26] MEDS: PIPERACILLIN SODIUM/TAZOBACTAM 4.5 GM in 0.9 % SODIUM CHLORIDE 50 ML IV ×2 (01:32→07:33)
[2025-03-26] MEDS: 0.9 % SODIUM CHLORIDE 1,000 ML 1000 ML IV (01:39)
[2025-03-26 02:16] LABS: Internal Control Within Normal Limits; SARS-CoV-2 Ag NEGATIVE (NEGATIVE)
[2025-03-26] MEDS: MAGNESIUM SULFATE IN WATER 2 GM/50 ML PREMIX IV (02:49)
[2025-03-26 03:31] LABS: Lactate/Lactic Acid 2.1 mmol/L (0.4-2.0)
[2025-03-26 03:39] LABS: Bilirubin Urine NEGATIVE (NEGATIVE); Blood Urine NEGATIVE (NEGATIVE); Clarity Urine CLEAR (CLEAR); Color Urine LT. YELLOW (YELLOW); Glucose Urine UA NEGATIVE (NEGATIVE); Ketones Urine NEGATIVE (NEGATIVE); Leukocyte Esterase Urine NEGATIVE (NEGATIVE); Nitrite Urine NEGATIVE (NEGATIVE); Protein Urine NEGATIVE (NEG/TRACE); Specific Gravity Urine <=1.005 (1.005-1.025); Urobilinogen Urine 0.2 EU/dL (0.2-1.0)
[2025-03-26 04:02] LABS: Bacteria Urine TRACE #/HPF (NONE SEEN); Cast Seen? NONE SEEN #/LPF (NONE SEEN); Crystals Seen? None Seen #/HPF (None Seen); Mucus Urine NONE SEEN (NONE SEEN); RBC Urine NONE SEEN #/HPF (0-2); Squamous Epithelial Cell Urine FEW #/LPF (NONE/RARE); Urine Culture Indicated NO; WBC Urine NONE SEEN #/HPF (NONE SEEN)
[2025-03-26] MEDS: HYDROMORPHONE HCL 1 MG/ML CARTRIDGE IVP (06:06)
[2025-03-26] MEDS: CYCLOBENZAPRINE HCL 10 MG TABLET PO (06:07)
--- NOTE | 2025-03-26 08:31 | PC.NURSE ---
report given to [facility]
== END 2025-03-26 08:32 | disposition short-term general hospital (02) ==
PROVIDERS: Emergency Provider Emergency Medicine; PCP Nurse Practitioner Family
DX: A41.9 Sepsis, unspecified organism (principal); R50.9 Fever, unspecified; G25.81 Restless legs syndrome; Z95.0 Presence of cardiac pacemaker; Z90.49 Acquired absence of other specified parts of digestive tract; M51.369 Other intervertebral disc degeneration, lumbar region without mention of lumbar back pain or lower extremity pain; M48.061 Spinal stenosis, lumbar region without neurogenic claudication
CPT/HCPCS: 36415; 71045; 72100; 74177; 80048; 80053; 81001; 83605; 83735; 85007; 85025; 85027; 87040; 87811; 93005; 96365; 96366; 96367; 96375; 99283; 99285; J1171; J2360; J2543; J3475; Q9967

== ENCOUNTER 2025-04-04 01:16 | Emergency (ER) | payer MEDICARE, MEDICAID, SELFPAY ==
--- OUTSIDE RECORDS SUMMARY | 2023-05-28 09:36 | XMS_ITS | Continuity of Care Document ---
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 Name Role Phone Paolo Olivo Unavailable Unavailable [...] Limited Oral Eval Intraoral-periapical 1st Film 4 [id number] Additional Jan [facility] FP MEDICAID Condoms FLU VACCINE, 3 YRS & >, IM NEW FP MEDICAID URINALYSIS, NONAUTO W/SCOPE SPECIMEN HANDLING FLU VACCINE, 3 YRS & >, IM Advance Directives Directive Yes / No Effective Date File Name No Information Encounters Encounter Description Practice Location Reason(s) For Visit Diagnoses Date Provider Providers Copied on Encounter [facility], [address] [place] [address], [id number] , [place] tel:[phone] [facility] No Information 3 Visci DO Paolo. [address] [place] [address], [id number], [place]. tel:[phone] OFFICE/OUTPA TIENT VISIT, EST [facility], [address] [place] [address], [id number] , tel:[phone] [facility] med refills (chief complaint) Body mass index [BMI] 36.0-36.9, adultCOPD w/ acute exacerbationLow back pain, unspecified 1 [facility] DO Max. [address], [place], [id number], [place]. tel:[phone] [facility], [address], [place], [id number] , [place] tel:[phone] [facility] lab draw (chief complaint) Chronic obstructive pulmonary disease, unspecified 1 [facility] DO Max. [address], [place], [id number], [place]. tel:[phone] OFFICE/OUTPA TIENT VISIT, [facility], [address] [place] [address], [id number] , [place] tel: [phone] [facility] Med Refills (chief complaint)fa tigue (chief complaint) Body mass index [BMI] 36.0-36.9, adultAnxiety disorder, unspecifiedChron ic obstructive pulmonary disease, unspecifiedCOPD w/ acute exacerbationIron deficiency anemia due to chronic blood lossType 2 diabetes mellitus without complications 1 [facility] DO Max. [address] [place] [address], [id number], [place]. tel:[phone] OFFICE/OUTPA TIENT VISIT, [facility], [address] [place] [address], [id number] , [place] tel:[phone] [facility] med refill (chief complaint) Body mass index [BMI] 36.0-36.9, adultCarpal tunnel syndrome, leftCervicalgiaM yash problem Sep- 1 [facility] DO Max. [address] [place] [address], [id number], [place]. tel:[phone] OFFICE/OUTPA TIENT VISIT, [facility], [address] [place] [address], [id number] , [place] tel:[phone] [facility] A1C & Med Refills (chief complaint)di abetes (chief complaint) Body mass index [BMI] 36.0-36.9, adultType 2 diabetes mellitus with hyperglycemiaAnx iety disorder, unspecifiedCervi calgia 1 [facility] Max. [address], [place], [id number], [place]. tel:[phone] OFFICE/OUTPA TIENT VISIT, [facility], [address], [place], [id number] , [place] tel: [phone] [facility] Med Refills (chief complaint)Mu sculoskeleta l pain (chief complaint) Anxiety disorder, unspecifiedCervi calgiaUnspecifie d sprain of left wrist, initial encounterBody mass index [BMI] 36.0-36.9, adult 1 [facility]. [address] [place] [address], [id number], [place]. tel:[phone] OFFICE/OUTPA TIENT VISIT, [facility], [address] [place] [address], [id number] , [place] tel: [phone] [facility] med refill (chief complaint)fa tigue (chief complaint) Body mass index [BMI] 36.0-36.9, adultType 2 diabetes mellitus with other circulatory complicationsAnx iety disorder, unspecified 1 [facility]. [address] [place] [address], [id number], [place]. tel:[phone] OFFICE/OUTPA TIENT VISIT, [facility], [address], [place], [id number] , [place] tel: [phone] [facility] med refill (chief complaint)Me curt loss (chief complaint) Type 2 diabetes mellitus with other circulatory complicationsBod y mass index [BMI] 35.0-35.9, adultAnxiety disorder, unspecifiedUrina ry frequencyMemory problem 1 [facility] Max. [address] [place] [address], [id number], [place]. tel:[phone] OFFICE/OUTPA TIENT VISIT, [facility], [address] [place] [address], [id number] , [place] tel: [phone] [facility] med Refills (chief complaint)fa tigue (chief complaint) Body mass index [BMI] 35.0-35.9, adultAnemia, unspecified typeEssential (primary) hypertensionIron deficiency anemia due to chronic blood loss 0 1 [facility] DO Max. [address] [place] [address], [id number], [place]. tel:[phone] OFFICE/OUTPA TIENT VISIT, [facility], [address] [place] [address], [id number] , [place] tel: [phone] [facility] med refill (chief complaint)Co ugh (chief complaint) Chronic obstructive pulmonary disease, unspecifiedAnxie ty disorder, unspecifiedOther cervical disc degeneration, unspecified cervical region 0 1 [facility] DO Max. [address] [place] [address], [id number], [place]. tel:[phone] OFFICE/OUTPA TIENT VISIT, [facility], [address] [place] [address], [id number] , [place] tel: [phone] [facility] A1C (chief complaint)di abetes (chief complaint) Type 2 diabetes mellitus with other circulatory complicationsAnx iety disorder, unspecifiedLumba r back pain 0 1 [facility] DO Max. [address] [place] [address], [id number], [place]. tel:[phone] OFFICE/OUTPA TIENT VISIT, [facility], [address] [place] [address], [id number] , [place] tel: [phone] [facility] Med Refills (chief complaint)GE RD (chief complaint) Body mass index [BMI] 34.0-34.9, adultChronic pulmonary embolismGastroin testinal hemorrhage associated with gastric ulcerType 2 diabetes mellitus with hyperglycemiaOth er cervical disc degeneration, unspecified cervical region 1 [facility] DO Max. [address] [place] [address], [id number], [place]. tel:[phone] OFFICE/OUTPA TIENT VISIT, [facility], [address], [place], [id number] , [place] tel: [phone] [facility] med refill (chief complaint) Carpal tunnel syndrome of right wristAnxiety disorder, unspecifiedCervi calgia 3 0-202 0 [facility] DO Max. [address], [place], [id number], [place]. tel:[phone] OFFICE/OUTPA TIENT VISIT, [facility], [address], [place], [id number] , [place] tel: [phone] [facility] Med Refills (chief complaint)ba ck pain (chief complaint) Body mass index [BMI] 32.0-32.9, adultOther cervical disc degeneration, unspecified cervical regionAnxiety disorder, unspecifiedCOPD w/ acute exacerbation 2- 0 [facility] DO Max. [address] [place] [address], [id number], [place]. tel:[phone] OFFICE/OUTPA TIENT VISIT, [facility], [address] [place] [address], [id number] , [place] tel: [phone] [facility] A1C & Med Refills (chief complaint)di abetes (chief complaint) Body mass index [BMI] 32.0-32.9, adultType 2 diabetes mellitus without complicationsAnx iety disorder, unspecifiedOther cervical disc degeneration, unspecified cervical region 4 0 [facility] DO Max. [address] [place] [address], [id number], [place]. tel:[phone] OFFICE/OUTPA TIENT VISIT, [facility], [address] [place] [address], [id number] , [place] tel: [phone] [facility] Med Refills (chief complaint) Body mass index [BMI] 32.0-32.9, adultAnxiety disorder, unspecifiedFolli culitisCervicalg ia Aug- 7-202 0 [facility] DO Max. [address] [place] [address], [id number], [place]. tel:[phone] OFFICE/OUTPA TIENT VISIT, [facility], [address] [place] [address], [id number] , [place] tel: [phone] [facility] f/u hospital (chief complaint)fa tigue (chief complaint) Gastrointestinal hemorrhage associated with gastric ulcerIron deficiency anemia due to chronic blood lossAnxiety disorder, unspecified Jul- 0 [facility] DO Max. [address] [place] [address], [id number], [place]. tel:[phone] OFFICE/OUTPA TIENT VISIT, [facility], [address] [place] [address], [id number] , [place] tel: [phone] [facility] A1C & MED REFILLS (chief complaint)Di zziness (chief complaint)di abetes (chief complaint) Body mass index (BMI) 32.0-32.9, adultType 2 diabetes mellitus without complicationsDiz ziness of unknown cause 0 [facility] Max. [address] [place] [address], [id number], [place]. tel:[phone] OFFICE/OUTPA TIENT VISIT, [facility], [address] [place] [address], [id number] , [place] tel: [phone] [facility] Med Refills (chief complaint)GE RD (chief complaint) Anxiety disorder, unspecifiedDizzi ness of unknown causeGERD w/o esophagitis 0 [facility] DO Max. [address] [place] [address], [id number], [place]. tel:[phone] OFFICE/OUTPA TIENT VISIT, [facility], [address] [place] [address], [id number] , [place] tel: [phone] [facility] med refills (chief complaint)ba ck pain (chief complaint) Body mass index (BMI) 32.0-32.9, adultLumbar back painType 2 diabetes mellitus without complicationsDiz ziness of unknown causeAnxiety disorder, unspecified 0 [facility] DO Max. [address], [place], [id number], [place]. tel:[phone] OFFICE/OUTPA TIENT VISIT, [facility], [address], [place], [id number] , [place] tel: [phone] [facility] A1C & Med refills (chief complaint)An xiety (chief complaint) Body mass index (BMI) 32.0-32.9, adultType 2 diabetes mellitus without complicationsAnx iety disorder, unspecifiedOther cervical disc degeneration, unspecified cervical regionFolliculit isEssential (primary) hypertension 0 [facility] DO Max. [address], [place], [id number], [place]. [phone] OFFICE/OUTPA TIENT VISIT, [facility], [address] [place] [address], [id number] , [place] tel: [phone] [facility] Anxiety (chief complaint) Anxiety disorder, unspecified 0 [facility] DO Max. [address], [place], [id number], [place]. 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 [address], [place], [id number], [place]. tel:[phone] OFFICE/OUTPA TIENT VISIT, [facility], [address], [place], [id number] , [place] tel: [phone] [facility] finger infection (chief complaint)Ra sh (chief complaint) Body mass index (BMI) 32.0-32.9, adultHerpetic whitlowEssential (primary) hypertensionAnxi ety disorder, unspecifiedDizzi ness of unknown cause 0 [facility] DO Max. [address], [place], [id number], [place]. tel:[phone] OFFICE/OUTPA TIENT VISIT, [facility], [address], [place], [id number] , [place] tel: [phone] [facility] Med Refills & A1C (chief complaint)Ra sh (chief complaint) Type 2 diabetes mellitus without complicationsAnx iety disorder, unspecifiedChron ic obstructive pulmonary disease, unspecified 0 [facility] DO Max. [address] [place] [address], [id number], [place]. tel:[phone] [facility], [address] [place] [address], [id number] , [place] tel: [phone] [facility] RANDOM UDS/PILL COUNT (chief complaint) No Information 9 [facility] DO Max. [address] [place] [address], [id number], [place]. tel:[phone] OFFICE/OUTPA TIENT VISIT, [facility], [address] [place] [address], [id number] , [place] tel: [phone] [facility] Med refills (chief complaint)DR WHITLEY DANG (chief complaint) Body mass index (BMI) 32.0-32.9, adultAnxiety disorder, unspecifiedKidne y painDizziness of unknown cause 9 [facility] DO Max. [address] [place] [address], [id number], [place]. tel:[phone] OFFICE/OUTPA TIENT VISIT, [facility], [address] [place] [address], [id number] , [place] tel:[phone] [facility] 4 WEEK F/U (chief complaint)Di zziness (chief complaint) Body mass index (BMI) 31.0-31.9, adultDizziness of unknown causeLumbar back painType 2 diabetes mellitus with hyperglycemia 9 [facility]. [address] [place] [address], [id number], [place]. tel:[phone] OFFICE/OUTPA TIENT VISIT, [facility], [address] [place] [address], [id number] , [place] tel: [phone] [facility] Med refills & A1C (chief complaint)Di zziness (chief complaint) Body mass index (BMI) 31.0-31.9, adultDizziness of unknown causeAnxiety disorder, unspecifiedType 2 diabetes mellitus with hyperglycemia [address], [id number], [place]. tel:[phone] OFFICE/OUTPA TIENT VISIT, [facility], [address] [place] [address], [id number] , [place] tel: [phone] [facility] 6 WK F/U (chief complaint)DR IGNACIO SCREEN (chief complaint) Pain in leg, unspecifiedBody mass index (BMI) 31.0-31.9, adultAnxiety disorder, unspecifiedChron ic pulmonary embolism [address], [id number], [place]. tel:[phone] OFFICE/OUTPA TIENT VISIT, [facility], [address] [place] [address], [id number] , [place] tel: [phone] [facility] follow up (chief complaint)hy pertension (chief complaint)dr ignacio screen (chief complaint) Body mass index (BMI) 31.0-31.9, adultEncntr for general adult medical exam w/o abnormal findingsEssentia l (primary) hypertensionType 2 diabetes mellitus without complicationsAnx iety disorder, unspecified 9 [facility]. [address] [place] [address], [id number], [place]. tel:[phone] OFFICE/OUTPA TIENT VISIT, [facility], [address], [place], [id number] , [place] tel: [phone] [facility] F/U HOSPITAL ADMITION (chief complaint)DR WHITLEY DANG (chief complaint) Body mass index (BMI) 31.0-31.9, adultAnxiety disorder, unspecifiedGERD w/o esophagitisHerpe tic shashi 9 [facility]. [address] [place] [address], [id number], [place]. tel:[phone] OFFICE/OUTPA TIENT VISIT, [facility], [address], [place], [id number] , [place] tel: [phone] [facility] med refill (chief complaint) Body mass index (BMI) 31.0-31.9, adultAnxiety disorder, unspecifiedType 2 diabetes mellitus without complications 9 [facility]. [address] [place] [address], [id number], [place]. tel:[phone] [facility], [address] [place] [address], [id number] , [place] tel: [phone] [facility] med refills (chief complaint) Body mass index (BMI) 31.0-31.9, adultCellulitis and abscess of finger, unspecifiedCutan eous abscess of unspecified handBipolar disorder 9 [facility]. [address], [place], [id number], [place]. tel:[phone] [facility], [address] [place] [address], [id number] , [place] tel: [phone] [facility] Abnormal Mammogram 9 [facility] Beatris. [address] [place] [address], [id number], [place]. tel:[phone] [facility], [address] [place] [address], [id number] , [place] tel: [phone] [facility] Medication refills (chief complaint)A1 C (chief complaint) Body mass index (BMI) 31.0-31.9, adultType 2 diabetes mellitus without complicationsLum barn operator pain Jan- 9 [facility]. [address], [place], [id number], [place]. tel:[phone] [facility], [address] [place] [address], [id number] , [place] tel: [phone] [facility] Abnormal Mammogram Jan- 9 [facility] Beatris. [address] [place] [address], [id number], [place]. tel:[phone] OFFICE/OUTPA TIENT VISIT, EST [facility], [address] [place] [address], [id number] , [place] tel: [phone] [facility] sickness (chief complaint) Body mass index (BMI) 31.0-31.9, adultAcute non-recurrent maxillary sinusitisCOPD w/ acute exacerbationAnxi ety disorder, unspecifiedOther cervical disc degeneration, unspecified cervical region Dec- 9 [facility]. [address], [place], [id number], [place]. tel:[phone] [facility], [address] [place] [address], [id number] , [place] tel: [phone] [facility] Abnormal MammogramUnspeci fied urinary incontinence 9 [facility] Beat[facility]. [address] [place] [address], [id number], [place]. 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 [address], [place], [id number], [place]. tel:[phone] [facility], [address], [place], [id number] , [place] tel: [phone] [facility] f/u abdominal pain (chief complaint) Body mass index (BMI) 32.0-32.9, adultHx pulmonary embolismHernia of abdominal wallAnxiety disorder, unspecified 9 [facility] DO Max. [address], [place], [id number], [place]. tel:[phone] [facility], [address] [place] [address], [id number] , [place] tel: [phone] [facility] abdomen issues (chief complaint) Right lower quadrant abdominal painEncounter for screening for Ca of colon 9 Kamaljit Wilcox. [address] [place] [address], [id number], [place]. tel:[phone] OFFICE/OUTPA TIENT VISIT, EST [facility], [address], [place], [id number] , [place] tel: [phone] [facility] rib pain when breathing (chief complaint) Body mass index (BMI) 31.0-31.9, adultRib pain on right sideLumbar back painRight hip pain 9 Kamaljit Wilcox. [address] [place] [address], [id number], [place]. tel:[phone] [facility], [address] [place] [address], [id number] , [place] tel:[phone] [facility] med refill (chief complaint) Right hip painLumbar back painAnxiety disorder, unspecified 9 Kamaljit Wilcox. [address] [place] [address], [id number], [place]. tel:[phone] OFFICE/OUTPA TIENT VISIT, [facility], [address] [place] [address], [id number] , [place] tel: [phone] [facility] bladder infection (chief complaint) Oliguria 8 Shahzad Cobb. [address] [place] [address], [id number], [place]. tel:[phone] OFFICE/OUTPA TIENT VISIT, [facility], [address] [place] [address], [id number] , [place] tel: [phone] [facility] Medication refill (chief complaint) Anxiety disorder, unspecifiedBipol ar disorderVertigo 8 Shahzad Cobb. [address] [place] [address], [id number], [place]. tel:[phone] [facility], [address] [place] [address], [id number] , [place] tel: [phone] [facility] medication refill (chief complaint)br onchitis (chief complaint)De nnison: (chief complaint) Chronic obstructive pulmonary disease, unspecifiedCough Type 2 diabetes mellitus without complicationsEss ential (primary) hypertension 8 Margarito Horne. [address] [place] [address], [id number], [place]. tel:[phone] [facility], [address] [place] [address], [id number] , [place] tel: [phone] [facility] sick (chief complaint)me d refill (chief complaint)dE NNISON: (chief complaint) CoughChronic obstructive pulmonary disease, unspecifiedType 2 diabetes mellitus without complicationsEss ential (primary) hypertension 8 Margarito Horne. [address] [place] [address], [id number], [place]. tel:[phone] [facility], [address] [place] [address], [id number] , [place] tel: [phone] [facility] med refill (chief complaint)De nnison: (chief complaint) Focal (segmental) acute (reversible) ischemia of small intestineAnxiety disorder, unspecifiedBipol ar disorderChronic obstructive pulmonary disease, unspecifiedType 2 diabetes mellitus without complicationsNic otine dependence, unspecified, uncomplicatedEss ential (primary) hypertension 8 Margarito Horne. [address] [place] [address], [id number], . tel:[phone] [facility], [address] [place] [address], [id number] , [place] tel: [phone] [facility] med refills (chief complaint)Le ft thight (chief complaint) Meralgia paresthetica, left lower limbAnxiety disorder, unspecifiedBipol ar disorder 7 Shahzad Cobb. [address] [place] [address], [id number], . tel:[phone] OFFICE/OUTPA TIENT VISIT, [facility], [address] [place] [address], [id number] , [place] tel: [phone] [facility] R thigh pain (chief complaint)di scuss medication (chief complaint) Anxiety disorder, unspecifiedBipol ar disorderMeralgia paresthetica, left lower limb 7 Shahzad Cobb. [address] [place] [address], [id number], [place]. tel:[phone] [facility], [address] [place] [address], [id number] , [place] tel: [phone] [facility] HgbA1C (chief complaint)me dication refill (chief complaint) Anxiety disorder, unspecifiedBipol ar disorderCervical giaOther cervical disc degeneration, unspecified cervical regionSpinal stenosis, cervical regionPain in left shoulderType 2 diabetes mellitus with hyperglycemiaGER D w/o esophagitis 7 Shahzad Cobb. [address] [place] [address], [id number], [place]. tel:[phone] OFFICE/OUTPA TIENT VISIT, [facility], [address], [place], [id number] , [place] tel: [phone] [facility] follow up (chief complaint) Chronic pulmonary embolismCervical giaOther cervical disc degeneration, unspecified cervical regionSpinal stenosis, cervical region 7 Shahzad Cobb. [address] [place] [address], [id number], [place]. tel:[phone] OFFICE/OUTPA TIENT VISIT, [facility], [address], [place], [id number] , [place] tel: [phone] [facility] L arm/shoulder pain (chief complaint) CervicalgiaOther cervical disc degeneration, unspecified cervical regionSpinal stenosis, cervical region 6 Shahzad Cobb. [address] [place] [address], [id number], [place]. tel:[phone] OFFICE/OUTPA TIENT VISIT, [facility], [address], [place], [id number] , [place] tel: [phone] [facility] severe leg pain (chief complaint) Restless leg syndromePain in leg, unspecifiedType 2 diabetes mellitus with hyperglycemiaSpi nal stenosis, cervical region 6 Shahzad Cobb. [address] [place] [address], [id number], [place]. tel:[phone] OFFICE/OUTPA TIENT VISIT, [facility], [address], [place], [id number] , [place] tel: [phone] [facility] knee pain (chief complaint) Pain in kneeRestless leg syndrome 6 Shahzad Cobb. [address] [place] [address], [id number], [place]. tel:[phone] [facility], [address] [place] [address], [id number] , [place] tel: [phone] [facility] spasms on right side (chief complaint) Muscle spasm of backCervicalgiaO ther cervical disc degeneration, unspecified cervical regionSpinal stenosis, cervical region 6 Shahzad Cobb. [address] [place] [address], [id number], [place]. tel:[phone] OFFICE/OUTPA TIENT VISIT, [facility], [address], [place], [id number] , [place] tel: [phone] [facility] med refill (chief complaint) Type 2 diabetes mellitus with hyperglycemiaCer vicalgiaOther cervical disc degeneration, unspecified cervical regionSpinal stenosis, cervical region 6 Shahzad Cobb. [address] [place] [address], [id number], [place]. tel:[phone] [facility], [address] [place] [address], [id number] , [place] tel: [phone] [facility] Vertigo 6 Shahzad Cobb. [address] [place] [address], [id number], [place]. tel:[phone] OFFICE/OUTPA TIENT VISIT, [facility], [address] [place] [address], [id number] , [place] tel: [phone] [facility] medication refill (chief complaint)kn ee pain (chief complaint) Bipolar disorder 6 Shahzad Cobb. [address] [place] [address], [id number], [place]. tel:[phone] OFFICE/OUTPA TIENT VISIT, [facility], [address] [place] [address], [id number] , [place] tel: [phone] [facility] medication refill (chief complaint)re stless leg syndrome (chief complaint) Restless leg syndromeCervical giaOther cervical disc degeneration, unspecified cervical regionSpinal stenosis, cervical region 6 Shahzad Cobb. [address] [place] [address], [id number], [place]. tel: [phone] OFFICE/OUTPA TIENT VISIT, [facility], [address], [place], [id number] , [place] tel: [phone] [facility] medication refills (chief complaint) Bipolar disorderAnxiety disorder, unspecified 0 6 Shahzad Cobb. [address], [place], [id number], [place]. [phone] OFFICE/OUTPA TIENT VISIT, [facility], [address], [place], [id number] , [place] tel: [phone] [facility] medication refill (chief complaint) CervicalgiaOther cervical disc degeneration, unspecified cervical regionSpinal stenosis, cervical regionVertigo 6 Shahzad Cobb. [address] [place] [address], [id number], [place]. tel:[phone] OFFICE/OUTPA TIENT VISIT, [facility], [address], [place], [id number] , [place] tel: [phone] [facility] cough (chief complaint)me d refill (chief complaint) Type 2 diabetes mellitus with hyperglycemiaCOP D w/ acute exacerbationCerv icalgiaOther cervical disc degeneration, unspecified cervical regionSpinal stenosis, cervical region 6 Shahzad Cobb. [address] [place] [address], [id number], [place]. tel:[phone] OFFICE/OUTPA TIENT VISIT, [facility], [address], [place], [id number] , [place] tel: [phone] [facility] pain (chief complaint) CervicalgiaPain in left shoulder 5 Shahzad Cobb. [address] [place] [address], [id number], [place]. tel:[phone] OFFICE/OUTPA TIENT VISIT, [facility], [address] [place] [address], [id number] , [place] tel:[phone] [facility] cold (chief complaint) COPD w/ acute exacerbationCerv icalgiaOther cervical disc degeneration, unspecified cervical region Aug- 5 Shahzad Cobb. [address] [place] [address], [id number], [place]. tel:[phone] OFFICE/OUTPA TIENT VISIT, [facility], [address] [place] [address], [id number] , [place] tel: [phone] [facility] med refill (chief complaint) CervicalgiaDegen eration of cervical intervertebral discSpinal stenosis in cervical regionColostomy status 5 Shahzad Cobb. [address] [place] [address], [id number], [place]. tel:[phone] OFFICE/OUTPA TIENT VISIT, [facility], [address] [place] [address], [id number] , [place] tel: [phone] [facility] Medcation refills (chief complaint)St aple removal (chief complaint) AnxietyColostomy status 5 Shahzad Cobb. [address] [place] [address], [id number], [place]. [phone] OFFICE/OUTPA TIENT VISIT, [facility], [address] [place] [address], [id number] , [place] tel: [phone] [facility] med refill (chief complaint) Acute mesenteric ischemiaColostom y statusTrigger finger Apr- 5 Shahzad Cobb. [address] [place] [address], [id number], [place]. tel:[phone] OFFICE/OUTPA TIENT VISIT, [facility], [address] [place] [address], [id number] , [place] tel:[phone] [facility] Med refill (chief complaint) Abdomen painAttention to colostomyColosto my status 5 Shahzad Cobb. [address], [place], [id number], [place]. tel:[phone] OFFICE/OUTPA TIENT VISIT, [facility], [address], [place], [id number] , [place] tel: [phone] [facility] medication refill (chief complaint) Spinal stenosis in cervical regionColostomy status 5 Shahzad Cobb. [address], [place], [id number], [place]. tel:[phone] OFFICE/OUTPA TIENT VISIT, [facility], [address], [place], [id number] , [place] tel: [phone] [facility] med refill (chief complaint) Colostomy statusAbdomen painAcute bronchitis 5 Nanda Wilcox. [address] [place] [address], [id number], [place]. tel:[phone] OFFICE/OUTPA TIENT VISIT, [facility], [address], [place], [id number] , [place] tel: [phone] [facility] dyspnea (chief complaint) COPDColostomy statusTobacco abuse 5 Shahzad Cobb. [address], [place], [id number], [place]. tel:[phone] OFFICE/OUTPA TIENT VISIT, [facility], [address], [place], [id number] , [place] tel: [phone] [facility] med f/u (chief complaint) Spinal stenosis in cervical regionCervicalgi a 5 Shahzad Cobb. [address], [place], [id number], [place]. tel:[phone] [facility], [address] [place] [address], [id number] , [place] tel: [phone] [facility] referral (chief complaint) Colostomy statusAttention to colostomy 4 [place] [employer] PROGRAM[employer] Jeri. [address], [place], [id number], [place]. [phone] OFFICE/OUTPA TIENT VISIT, [facility], [address], [place], [id number] , [place] tel: [phone] [facility] ER (chief complaint) OtherColostomy statusAnxietyDia betes Mellitus Type 2, UncomplicatedOth er and unspecified coagulation defects 4 [place] [employer] PROGRAM[employer] Jeri. [address], [place], [id number], [place]. tel:[phone] OFFICE/OUTPA TIENT VISIT, [facility], [address], [place], [id number] , [place] tel: [phone] [facility] BP check (chief complaint) CervicalgiaSpina l stenosis in cervical regionDisplaceme nt of cervical intervertebral disc without myelopathy 4 [place] [employer] PROGRAM[employer] Jeri. [address], [place], [id number], [place]. [phone] OFFICE/OUTPA TIENT VISIT, [facility], [address], [place], [id number] , [place] tel: [phone] [facility] review labs and MRI (chief complaint) Degeneration of cervical intervertebral discDiabetes Mellitus Type 2, UncomplicatedUns pecified essential hypertensionUrin maryellen incontinence, unspecifiedMixed HyperlipidemiaOv erweight 4 Hemmer Libby. [address], [place], [id number], [place]. [facility], [address], [place], [id number] , [place] tel: [phone] [facility] No Information 4 Hemmer Libby. [address], [place], [id number], [place]. [facility], [address], [place], [id number] , [place] tel: [phone] [facility] Potential Drug Interaction (chief complaint) Therapeutic Drug Monitoring 4 Hemkirill Souza. [address], [place], [id number], [place]. OFFICE/OUTPA TIENT VISIT, [facility], [address], [place], [id number] , [place] tel: [phone] [facility] neck pain (chief complaint)ea r discomfort (chief complaint) Degeneration of cervical intervertebral discGERDDiabetes Mellitus Type 2, UncomplicatedUri nary incontinence, unspecifiedUnspe cified essential hypertensionMixe d HyperlipidemiaBe nign neoplasm of thyroid glands 4 Hemkirill Souza. [address], [place], [id number], [place]. [facility], [address] [place] [address], [id number] , [place] tel: [phone] [facility] Dental examination 4 Merrick DMD January. [address], [place], [id number], [place]. tel:[phone] [facility], [address], [place], [id number] , [place] tel: [phone] [facility] Dental examination 4 [place] DMD January. [address], [place], [id number], [place]. tel:[phone] [facility], [address], [place], [id number] , [place] tel: [phone] [facility] Clinic Dental examination 0 4 [place] DMD January. [address], [place], [id number], [place]. tel:[phone] [facility], [address], [place], [id number] , [place] tel:[phone] [facility] No Information Jul-2 0 Lamp Mayte. [address], [place], [id number], [place]. tel:[phone] [facility], [address] [place] [address], [id number] , tel: [phone] [facility] No Information Sep-2 8-201 0 Visci DO Boone. [address] [place] [address], [id number], . tel:[phone] [facility], [address] [place] [address], [id number] , tel: [phone] [facility] No Information Dec-0 1-200 8 No Information [facility], [address] [place] [address], [id number] , tel: [phone] Flu No Information Dec-0 1-200 8 Visci DO Boone. [address] [place] [address], [id number], . tel:[phone] Family History Family Member Type Diagnosis Age [...] hypertension Payers Payer name Insurance type Covered republican ID Fredy ferrer(s) Ale Medicare Advantage SERGO [id number] Medicaid [facility] [id number] Social History Type Description Quantity Date Captured [...] vaccine ( ). Due on due Goal [employer] exam. Due on due Goal Colonoscopy. Due [...] Goal Foot exam. Due on due Goal [employer] exam. Due on due Goal Pneumococcal vac [...] due Goal ECG. Due on due Goal [employer] exam. Due on due Goal Tdap. Due [...] Goal Diabetes screening. Due on due Goal [employer] exam. Due on due Goal Influenza Vaccine. [...] due Goal Mammogram. Due on due Goal [employer] exam. Due on due Goal Depression scree [...] Goal Diabetes screening. Due on due Goal [employer] exam. Due on due Goal Breast exam. [...] due Goal Colonoscopy. Due on due Goal [employer] exam. Due on due Goal Depression scree [...] Goal Urine microalbumin. Due on due Goal [employer] exam. Due on due Goal Breast exam. [...] Goal Dental exam. Due on due Goal [employer] exam. Due on due Goal Pneumococcal vac [...] Goal Dental exam. Due on due Goal [employer] exam. Due on due Goal Dilated eye [...] Goal Dental exam. Due on due Goal [employer] exam. Due on due Goal Urine microalbumin. [...] due Goal Mammogram. Due on due Goal [employer] exam. Due on due Goal Foot exam. Due on due Goal Zoster vaccine ( ). Due on due Goal Pneumococcal vac cine. Due on due Goal Tdap. Due on due Goal Influenza Vaccine. Due on Fl due Goal Tobacco cessation counseling completed Goal [...] Goal Influenza Vaccine. Due on due Goal [employer] exam. Due on due Goal Zoster vaccine [...] Goal Mammogram. Due on 0 due Goal [employer] exam. Due on due Goal H&P. Due [...] Pneumococcal vac cine. Due on due Goal [employer] exam. Due on due Goal Foot exam. [...] nt education, guidance, and counseling completed Goal [employer] exam. Due on due Goal Pneumococcal vac [...] Influenza Vaccine. Due on Oc due Goal [employer] exam. Due on due Goal Depression scree [...] Foot exam. Due on 0 due Goal [employer] exam. Due on due Goal Tdap. Due [...] Goal Dental exam. Due on due Goal [employer] exam. Due on due Goal Urine microalbumin. [...] Foot exam. Due on 0 due Goal [employer] exam. Due on due Goal Pneumococcal vac [...] Pneumococcal vac cine. Due on due Goal [employer] exam. Due on due Goal Dilated eye [...] vaccine ( ). Due on due Goal [employer] exam. Due on due Goal Tdap. Due [...] Goal Dental exam. Due on due Goal [employer] exam. Due on due Goal Hemoglobin A1C. [...] due Goal ECG. Due on due Goal [employer] exam. Due on due Goal Breast exam. [...] Pneumococcal vac cine. Due on due Goal [employer] exam. Due on due Goal ECG. Due [...] Goal Breast exam. Due on due Goal [employer] exam. Due on due Goal Depression scree nancy. Due on due Goal Tdap. Due on due Goal Mammogram. Due on 0 due Goal H&P. Due on due Goal Influenza Vaccine. Due on due Goal ECG. Due on due Goal Tobacco cessation counseling completed Goal Breast exam. Due on due Goal Tdap. Due on due Goal H&P. Due on due Goal [employer] exam. Due on due Goal Foot exam. [...] due Goal ECG. Due on due Goal [employer] exam. Due on due Goal Breast exam. Due on due Goal Tdap. Due on due Goal Colonoscopy. Due on due Goal Diabetes screening. Due on A due Goal Tobacco cessation counseling completed Goal Dietary manageme nt education, guidance, and counseling completed Goal Urine microalbumin. Due on due Goal Tdap. Due on due Goal [employer] exam. Due on due Goal Depression scree [...] due Goal H&P. Due on due Goal [employer] exam. Due on due Goal Diabetes screening. [...] Goal Mammogram. Due on 9 due Goal [employer] exam. Due on due Goal Tdap. Due [...] Pneumococcal vac cine. Due on due Goal [employer] exam. Due on due Goal Dilated eye [...] Depression scree nancy. Due on due Goal [employer] exam. Due on due Goal Influenza Vaccine. [...] Foot exam. Due on 9 due Goal [employer] exam. Due on due Goal Depression scree [...] Diabetes screening. Due on A due Goal [employer] exam. Due on due Goal Colonoscopy. Due [...] due Goal H&P. Due on due Goal [employer] exam. Due on due Goal Depression scree nancy. Due on due Goal Breast exam. Due on due Goal Depression scree nancy. Due on due Goal Colonoscopy. Due on due Goal [employer] exam. Due on due Goal Dental exam. [...] Foot exam. Due on 9 due Goal [employer] exam. Due on due Goal Mammogram. Due [...] Diabetes screening. Due on A due Goal [employer] exam. Due on due Goal Breast exam. [...] Goal Dental exam. Due on due Goal [employer] exam. Due on due Goal Depression scree nancy. Due on due Goal Colonoscopy. Due on 025 due Goal Breast exam. Due on due Goal ECG. Due on due Goal H&P. Due on due Goal Diabetes screening. Due on due Goal Pneumococcal vac cine. Due on due Goal Dental exam. Due on due Goal [employer] exam. Due on due Goal ECG. Due [...] Goal Breast exam. Due on due Goal [employer] exam. Due on due Goal Diabetes screening. [...] Depression scree nancy. Due on due Goal [employer] exam. Due on due Goal Dental exam. [...] Goal Influenza Vaccine. Due on due Goal [employer] exam. Due on due Goal Dental exam. [...] Breast exam. Due on 019 due Goal [employer] exam. Due on due Goal Urine microalbumin. [...] due Goal ECG. Due on due Goal [employer] exam. Due on due Goal Influenza Vaccine. [...] Goal Mammogram. Due on 8 due Goal [employer] exam. Due on due Goal Breast exam. Due on 018 due Goal FOBT. Due on due Goal Urinalysis. Due on 14 due Goal [employer] exam. Due on due Goal ECG. Due [...] due Goal ECG. Due on due Goal [employer] exam. Due on due Goal Dental exam. [...] due Goal H&P. Due on due Goal [employer] exam. Due on due Goal Dilated eye exam. Due on Dec due Goal Mammogram. Due on 8 due Goal [employer] exam. Due on due Goal Dilated eye [...] due Goal ECG. Due on due Goal [employer] exam. Due on due Goal Pneumococcal vac [...] Goal Mammogram. Due on 7 due Goal [employer] exam. Due on due Goal BMP fasting. [...] due Goal Colonoscopy. Due on due Goal [employer] exam. Due on due Goal Urinalysis. Due on 14 due Goal BMP fasting. Due on due Goal Pap/HPV testing. Due on due Goal Mammogram. Due on 7 due Goal Tobacco cessation counseling completed Goal BMP fasting. Due on due Goal H&P. Due on due Goal [employer] exam. Due on due Goal Breast exam. [...] Goal Mammogram. Due on 6 due Goal [employer] exam. Due on due Goal Breast exam. Due on due Goal Colonoscopy. Due on due Goal Influenza Vaccine. Due on due Goal FOBT. Due on due Goal Colonoscopy. Due on due Goal FOBT. Due on due Goal Mammogram. Due on 6 due Goal BMP fasting. Due on due Goal TD Vaccine. Due on 16 due Goal Urinalysis. Due on 14 due Goal [employer] exam. Due on due Goal H&P. Due [...] Goal BMP fasting. Due on due Goal [employer] exam. Due on due Goal Mammogram. Due on 6 due Goal Urinalysis. Due on 14 due Goal Mammogram. Due on 6 due Goal FOBT. Due on due Goal Sigmoidoscopy. Due on due Goal Colonoscopy. Due on due Goal [employer] exam. Due on due Goal Influenza Vaccine. [...] due Goal Sigmoidoscopy. Due on due Goal [employer] exam. Due on due Goal TD Vaccine. Due on 16 due Goal Breast exam. Due on due Goal Urinalysis. Due on 14 due Goal FOBT. Due on due Goal Mammogram. Due on 6 due Goal Colonoscopy. Due on due Goal TD Vaccine. Due on 16 due Goal Lipid Panel. Due on 015 due Goal [employer] exam. Due on due Goal BMP fasting. [...] Goal Mammogram. Due on 6 due Goal [employer] exam. Due on due Goal H&P. Due [...] Goal Influenza Vaccine. Due on due Goal [employer] exam. Due on due Goal TD Vaccine. Due on 16 due Goal [employer] exam. Due on due Goal Urinalysis. Due [...] Goal Breast exam. Due on due Goal [employer] exam. Due on due Goal Influenza Vaccine. [...] Goal Pap/HPV testing. Due on due Goal [employer] exam. Due on due Goal H&P. Due [...] BMP fasting. Due on 014 due Goal [employer] exam. Due on due Goal Sigmoidoscopy. Due [...] due Goal Tdap. Due on due Goal [employer] exam. Due on due Goal FOBT. Due on due Goal Breast exam. Due on due Goal Tdap. Due on due Goal Influenza Vaccine. Due on due Goal H&P. Due on due Goal FOBT. Due on due Goal Mammogram. Due on 5 due Goal Lipid Panel. Due on due Goal [employer] exam. Due on due Goal Pap/HPV testing. [...] TD Vaccine. Due on 15 due Goal [employer] exam. Due on due Goal BMP fasting. [...] Breast exam. Due on 015 due Goal [employer] exam. Due on due Goal TD Vaccine. Due on 15 due Goal Influenza Vaccine. Due on due Goal Colonoscopy. Due on due Goal FOBT. Due on due Goal Sigmoidoscopy. Due on due Goal Breast exam. Due on due Goal Tdap. Due on due Goal [employer] exam. Due on due Goal Mammogram. Due [...] due Goal H&P. Due on due Goal [employer] exam. Due on due Goal Tdap. Due [...] due Goal Tdap. Due on due Goal [employer] exam. Due on due Goal Pap/HPV testing. Due on due Goal Mammogram. Due on 5 due Goal FOBT. Due on due Goal Breast exam. Due on due Goal BMP fasting. Due on 014 due Goal Sigmoidoscopy. Due on due Goal Sigmoidoscopy. Due on due Goal BMP fasting. Due on 014 due Goal Influenza Vaccine. Due on due Goal [employer] exam. Due on due Goal Urinalysis. Due [...] To: [facility] [address] [place], [place] [id number] Ordered: Referrals: Allopathic & Osteopathic Physicians : Orthopaedic Surgery. [facility]. Location: INJURY/SAFETY HAZARD ASSESSMENT. Consult Appointment date/timeframe: 09/03/2017 ordered Referral Ordered: [...] Referral Ordered: referred to Clinical Nurse Specialist LIBRARY SERVICES ASSISTANT today (related to Attention to colostomy) ordered Referral Ordered: Urology. ordered Future Order: Lab Order GLYCOSYL ATED HEMOGLOBIN TEST ([id number]), Collected on: , Sent on: Sent Future Order: Lab Order Complian ce Drug Analysis, Ur ([id number]), Collected on: , Sent on: Sent Future Order: Lab Order Urine, N aloxone Urine Cofirm ([id number]), Collected on: , Sent on: Sent History [...] RN ,above was reviewed and agreed with [facility] lab draw Pt here for lab draw. [...] Lyrica 08/11, Ativan 08/05, Flexeril 07/29 & Chireno 07/26TGrodi [employer] fatigue This is an initi al visit. [...] completed, last filled Lorazepam 06/06, Lyrica 06/06, Chireno 06/05TGrodi [facility] Med Refills Pt here today fo r medication refills. PT states she fell Thursday and her L hand is swollen. Denies any pain. OARRS completed, last filled Chireno, Ativan & Lyrica 05/08TGrodi [facility] Musculoskeletal pain Onset: sudd en. It [...] Ativan, 02/13, Lyrica 02/13, & norco 02/06TGrodi [employer] fatigue This is an initi al visit. [...] Ativan 12/19, Lyrica 12/17, Flexeril 12/02 & Chireno 11/20TGrodi LPNPt states she is just tired, pt son who she lives with has his son that is 3 months old and not sleeping [facility] Med Refills Pt here today fo [...] work. OARRS completed, last filled Ativan 10/23, Chireno 10/31 & Flexeril 10/31TGrodi [employer] GERD The severity of the problem is [...] refills. OARRS completed, last filled Ativan 09/25, Chireno & Flexeril 09/05TGrodi [employer] diabetes The problem is s table. Risk [...] OARRS completed, last filled Ativan 08/26 & Chireno 08/08TGrodi [employer] Med Refills Pt here today fo r medication refills. We discussed Pt getting tested genes for coronary artery disease and what pt should do about it otherwise pt is doing well. OARRS completed, last filled Ativan 07/22, Flexeril 07/15, Chireno 07/11 & Lyrica 07/01TGrodi [employer] fatigue This is an initi al visit. [...] completed, last filled Lyrica & Ativan 05/27, Chireno 05/18, & Ambien 05/14TGrodi [employer] diabetes The problem is s table. Risk [...] completed, last filled Ativan 04/28, Lyrica 04/28, Chireno 04/16TGrodi [employer] GERD The severity of the problem is [...] back pain and dizziness, states that the Chireno is no longer helping the pain. Pt [...] 03/10, Ativan, Ambien & Lyrica 03/02, & Chireno 03/01TGrodi [employer] Anxiety This is a follow up visit. [...] swelling, redness and pain. Pt states the Chireno helps with the pain but she is worried about infection. Pt denies any other problems or concerns.Pt requesting refills of Chireno 5mg last filled 11/07 and Ativan 0.5mg [...] completed, last filled Lyrica 10/27, Flexeril 10/27, Chireno & Ativan 09/27TGjoyce HOPPER Rash The patient [...] provide oral swab. OARRS completed, last filled Chireno 09/27, Ativan 09/27 & Lyrica 09/28. [facility] Rapid urine drug screen performed, pt + for NOTHING ALL NEGATIVE. Asked patient when she last took her medication and she stated she last took Ativan yesterday & Chireno 4 days ago. TGrodi [facility] Med refills Pt here today fo [...] last filled Flexeril 09/19 & 09/08, Lyrica, Chireno & [facility]ivan 08/31[facility] D[facility] Onset was sudden . The duration [...] if she needs a refill on her Chireno and she said, yeah might as well . I asked patient to provide a urine today and she said she can not pee. OARRS completed, last filled Flexeril 08/26, Ativan 08/03, & Chireno 08/03TGrodi [employer] Dizziness Onset was sudden . Severity is [...] Flexeril 07/15, Lyrica 06/29, Ativan 06/22 & Chireno 06/22rodi [facility] DRUG SCREEN Pt could not uri ion for a UDS. Pt had blood drawn. First attempt successful in R antecubital. Pt tolerated well. [facility] 6 WK F/U Pt here today [...] filled Flexeril 05/27 & 06/09, Lyrica 05/25, Chireno & Ativan 05/11TGrod LPNPt states that beside [...] Flexeril 04/30, Lyrica 04/25, Ativan 04/13, & Chireno 03/11TGrodi [facility] hypertension Comorbid conditi ons include diabetes [...] completed, last filled Lyrica 02/16, Ativan, & Chireno /Grodi LPNASKED PATIENT IF SHE COULD PROVIDE A URINE AND SHE SAID NOT RIGHT NOW. SHE WILL NEED TO PROVIDE A URINE OR GET A BLOOD DRAW. ,above was reviewed and agreed with Medication refills Patient here for Medication refills. Patient is requesting refills on Wellbutrin, Ativan and Chireno. A1C completed today. No other issues at this time. Also patient did agree to reschedule breast biopsy. Patent was advised to stop blood thinners for 5 days. Patient is scheduled 02/09/19 at 10am at the [facility]. OARRS completed. last [...] well. She states she does not need Chireno cause she still has some. OARRS completed, last filled, Ativan 12/22 for 15 day supply, Chireno & Lyrica 12/22TGrodi LPNPt states she get [...] this needs discussed. OARRS completed, last filled Chireno, Ativan, 11/05, Lyrica 11/11 & got Percocet [...] Pt here for medi cation refill on Chireno and Ativan. Pt. c/o back pain 08/11. [...] syrup cough drops, tylenol. Sandra Guthrie RN. [place]: Finished ten day s if Keflex. Coughing [...] called. Jose Margarito: Coughing for 1 w [place]. No hemoptysis or shortness of breath or chest pain. Has a nebulizer at home. [place]: States she was t aking Gabapentin for [...] would like [address] [facility] Patient states s he went [...] the coumadin clinic and [facility] managed by [facility] Dr. Rodriguez. Patient needs a release [...] is looking into another psych provider in [place]. RUCHI Figueroa knee pain Location: knee. Additional [...] april to see new psych doctor in [place]. Patient has no other issues at this [...] are due for refill. She went to [facility] on 10/15/15 and starts PT on 11/07/15. [...] Metoprolol, & Clopidogel. Oscar Arias dyspnea Pt. [facility] was i [facility] in for emergency colectomy. While inpt. was using nebulizers. Was not given Rx at time of d/c and has been using sister's neb at home with relief of dyspnea. Neb meds currently using are Albuterol and Ipratropium [place] 2 - 3 times/day. Hayden Casas R.N. med f/u Client here to f /u on meds. Also [facility] has a rash around her stoma. [facility] has a Colonoscopy sched. for 11-21-14. Oscar [...] if desires results. 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
[2025-04-04 01:20] VITALS: BP 111/58; PULSE 87; TEMP 36.7; O2SAT 99; BMI 48.7
--- NOTE | 2025-04-04 01:30 | ED.LOWEXI1 ---
HPI HPI - Extremity Injury (Lower) General Stated Complaint: RESTLESS LEG , SHAKY LEGS Time Seen by Provider: 04/04/25 01:27 Source: patient Mode of arrival: walk-in Limitations: no limitations History of Present Illness HPI Narrative: here for RLS. States she does not have Requip. states it was called in. Not able to sleep because of her restless legs Related Data Home Medications ?Medication ?Instructions ?Recorded ?Confirmed amiodarone 200 mg tablet 200 mg PO Q24H 10/22/24 04/04/25 lansoprazole 30 mg capsule,delayed 30 mg PO .ACB 10/22/24 04/04/25 release meclizine 25 mg tablet 25 mg PO BID PRN dizziness 10/22/24 04/04/25 melatonin 5 mg tablet 5 mg PO DAILY 10/22/24 04/04/25 metoprolol succinate 25 mg 25 mg PO DAILY 10/22/24 04/04/25 tablet,extended release 24 hr mexiletine 150 mg capsule 150 mg PO Q8H 10/22/24 04/04/25 oxybutynin chloride 10 mg 10 mg PO DAILY 10/22/24 04/04/25 tablet,extended release 24 hr ranolazine 500 mg tablet,extended 500 mg PO Q12H 10/22/24 04/04/25 release,12 hr rosuvastatin 10 mg tablet 10 mg PO DAILY 10/22/24 04/04/25 magnesium 200 mg tablet 200 mg PO BID 10/30/24 04/04/25 lisinopril 5 mg tablet 5 mg PO .QD 10/31/24 04/04/25 quetiapine 100 mg tablet 200 mg PO .QHS 10/31/24 04/04/25 baclofen 10 mg tablet 10 mg PO TID PRN muscle spasm 02/01/25 04/04/25 Previous Rx's ?Medication ?Instructions ?Recorded lorazepam 0.5 mg tablet (Ativan) 0.5 mg PO Q8H PRN twitching 4 days 03/25/25 #14 tabs methylprednisolone 4 mg tablets in See Rx Instructions .Route 03/25/25 a dose pack (Medrol (Mat)) .COMPLEX #21 ea Allergies Allergy/AdvReac Type Severity Reaction Status Date / Time No Known Drug Allergies Allergy Verified 04/04/25 01:24 Opioid HPI Opioid Management Most Recent Pain and Opioid Data: Last Pain Scale 7 05/25/25, 06:06 Last Pain Intensity 0 10/31/24, 09:34 Last ORT Total Score 8 10/30/24, 17:53 Last ORT Risk Category High Risk 10/30/24, 17:53 Review of Systems ROS Status of ROS 10 or more systems reviewed and unremarkable except as noted in history and below PFSH PFSH Medical History Pacemaker ?Z95.0 - Presence of cardiac pacemaker (ICD-10) Acute GI bleeding ?K92.2 - Gastrointestinal hemorrhage, unspecified (ICD-10) Elevated INR ?R79.1 - Abnormal coagulation profile (ICD-10) Pneumonia ?J18.9 - Pneumonia, unspecified organism (ICD-10) Dyspnea ?R06.00 - Dyspnea, unspecified (ICD-10) Dizziness ?R42 - Dizziness and giddiness (ICD-10) Diabetes ?E11.9 - Type 2 diabetes mellitus without complications (ICD-10) Bipolar 1 disorder, depressed ?F31.9 - Bipolar disorder, unspecified (ICD-10) HTN (hypertension) ?I10 - Essential (primary) hypertension (ICD-10) High cholesterol ?E78.00 - Pure hypercholesterolemia, unspecified (ICD-10) Afib ?I48.91 - Unspecified atrial fibrillation (ICD-10) Surgical History H/O tubal ligation ?Z98.51 - Tubal ligation status (ICD-10) Hx of cholecystectomy ?Z90.49 - Acquired absence of other specified parts of digestive tract (ICD-10) Status post other internal cardiac defibrillator procedure ?Z95.0 - Presence of cardiac pacemaker (ICD-10) History of bowel resection ?Z90.49 - Acquired absence of other specified parts of digestive tract (ICD-10) Family History Father Heart attack Brother Heart attack Sister Heart attack Diabetes Son Diabetes Social History Within the past year, how often did you have a drink containing alcohol: never Within the past year, how often did you have six or more drinks on one occasion: never Score interpretation: A score less than 3 is consistent with normal alcohol consumption. 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 Known occupational exposures/hazards: No Highest level of school completed/degree received: GED or equivalent Little interest or pleasure in doing things: not at all Feeling down, depressed, or hopeless: not at all Exam Constitutional Vital Signs, click to edit/add: Last Vital Signs Temp 98.0 F 04/04/25 01:20 Pulse 87 04/04/25 01:20 Resp 20 04/04/25 01:20 BP 111/58 04/04/25 01:20 Pulse Ox 99 04/04/25 01:20 O2 Del Method Room Air 04/04/25 01:20 Common normals: no apparent distress, average body habitus, oriented x3, no limitations, healthy appearing, alert and well nourished HENOH Common normals: normocephalic and head/scalp atraumatic Eye Common normals: PERRL and EOMs intact bilaterally Respiratory Common normals: normal respiratory effort, no retractions, no use of accessory muscles and clear to auscultation bilaterally Cardio Common normals: regular rate, regular rhythm, S1 normal heart sound and S2 normal heart sound Extremity Common normals: normal to inspection and full ROM Neuro Common normals: oriented x3, CN's II-XII intact bilaterally, moves all extremities and no focal motor deficits Psych Appearance: grossly normal Course Vital Signs Vital signs: Vital Signs Temperature 98.0 F 04/04/25 01:20 Pulse Rate 87 04/04/25 01:20 Respiratory Rate 20 04/04/25 01:20 Blood Pressure 111/58 04/04/25 01:20 Pulse Oximetry 99 04/04/25 01:20 Oxygen Delivery Method Room Air 04/04/25 01:20 Temperature 98.0 F 04/04/25 01:20 Pulse Rate 87 04/04/25 01:20 Respiratory Rate 20 04/04/25 01:20 Blood Pressure 111/58 04/04/25 01:20 Pulse Oximetry 99 04/04/25 01:20 Oxygen Delivery Method Room Air 04/04/25 01:20 MDM - Extremity Injury (Lower) MDM Narrative Medical decision making narrative: patient presents complaining of RLS and states she is without Requip. Labs and IV magnesium ordered for her RLS but she refused these. One dose of requip provided. States her doctor has already called in Requip for her but she was not able to access it . Came to ER because she was not able to sleep Discharge Plan Discharge Clinical Impression: Restless leg syndrome Patient Disposition: Home, Self-Care Prescriptions / Home Meds: No Action baclofen 10 mg tablet 10 mg PO TID PRN (Reason: muscle spasm) methylprednisolone [Medrol (Mat)] 4 mg tablets,dose pack See Rx Instructions .Route .COMPLEX Qty: 21 0RF Rx Instructions: Take as directed lorazepam [Ativan] 0.5 mg tablet 0.5 mg PO Q8H PRN (Reason: twitching) 4 Days Qty: 14 0RF amiodarone 200 mg tablet 200 mg PO Q24H lansoprazole 30 mg capsule,delayed release(DR/EC) 30 mg PO .ACB meclizine 25 mg tablet 25 mg PO BID PRN (Reason: dizziness) melatonin 5 mg tablet 5 mg PO DAILY metoprolol succinate 25 mg tablet extended release 24 hr 25 mg PO DAILY mexiletine 150 mg capsule 150 mg PO Q8H oxybutynin chloride 10 mg tablet extended release 24hr 10 mg PO DAILY ranolazine 500 mg tablet extended release 12 hr 500 mg PO Q12H rosuvastatin 10 mg tablet 10 mg PO DAILY magnesium 200 mg tablet 200 mg PO BID quetiapine 100 mg tablet 200 mg PO .QHS lisinopril 5 mg tablet 5 mg PO .QD Print Language: Upper Sorbian Instructions: Restless Legs Syndrome (ED) Referrals: JOVANI HANSON [Primary Care Provider, Unknown] - 1 week
--- OUTSIDE RECORDS SUMMARY | 2025-04-04 01:34 | XMS_ITS | Clinical Summary ---
Author Organization [employer] Address [id number] [address] [place] [address] Care Team Providers Care Manager Fraud Name Role Phone Unavailable Primary Care Provider [...] in the morning. 4 09/27/20 25 Active lansoprazole (PREVACID) 30 mg capsule Take 1 capsule (30 mg total) by mouth. Active INVOKANA 300 mg tablet Take 1 tablet (300 mg total) by mouth. 5 11/21/19 26 Active aspirin 81 mg Take 1 tablet (81 mg total) by mouth. 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 11/30/2022 Atherosclerosis of [place] co ronary artery of [place] heart without angina pectoris 07/29/2023 Chronic obstructive pulmonary disease 07/29/2023 Chronic systolic CHF (congestive heart failure) 07/29/2023 Current every day smoker 07/29/2023 Essential hypertension 07/29/2023 Intermittent claudication 07/29/2023 Pulmonary embolism 07/29/2023 Type 2 diabetes mellitus 07/29/2023 Gastroesophageal reflux disease without esophagi tis 11/25/2021 Vascular insufficiency of intestine 04/09/2015 Encounters Date Type Department Care Team Description 03/01/2025 Telephone [facility] Gynecology Oncology, A Department of [place] [address] [place] [address] [place] Garcia RN 02/22/2025 Telephone [facility] Gynecology Oncology, A Department of [place] [address] [place] [address] [place] Garcia, PAULA from Last 3 Months Social History Tobacco [...] egative 12/01/2024 2:25 PM EST [facility] Hpv 18 Negative Negative^N egative 12/01/2024 2:25 PM EST [facility] Other high risk hpv Negative Negative^N egative 12/01/2024 2:25 PM EST [facility] Comment: HPV types 31,33,35,39,45,52,56,58,59,66 and 68 DNA were undetectable. THINP 11/29/2024 3:43 AM EST 12/01/2024 3:44 AM EST us Nanci Mcallister MD LAB BLOOD ORDERABLES Final Resul t SUND[place] [facility] [address], [address] [place] [address] from Last 3 Months or Most Recently Relevant to Health Maintenance Insurance MEDICAID [place] [employer] MEDICARE
--- OUTSIDE RECORDS SUMMARY | 2025-04-04 01:34 | XMS_ITS | Encounter Summary ---
Author Organization [facility] Address [address] [place], [place] [id number] Care Team Providers Care Electrician Chief Name Role Phone Shanthi Litstephnaie Nelson DO Primary Care Provider Reza Pike MD Primary Care Provider Pcp, No PRINTER ASSISTANT Primary Care Provider Unavailabl e Source Comments In the event this information is protected by the Federal Confidentiality of Alcohol and Drug AbusePatient Records regulations: The Federal rules restrict any use of the information to criminally investigate or prosecute any alcohol or drug abuse patient.[facility] Encounter Details Date Type Department Care Team (Late st Contact Info) Description 06/01/2015 Letters (in) Colorectal Surgery [address] [phone] Marcial Ceballos (Hist) [address] [phone] Social History Tobacco Use Types Packs/Day Years [...] June 01, 2015 Jd Dailey, DO [address] [address] RE: Latanya [place] : [address] [...] and she was suitable for anesthesia, a adventism of continuity could be performed. I performed [...] 22, 2015. Yours Faithfully, Marcial Ceballos MD MS/ cc: Latanya [address] [place] [address] Lit Maki DO [address] [facility] [phone] documented in this encounter Plan of Treatment Not on file documented as of this encounter Visit Diagnoses Not on filedocumented in this encounter Care Teams Electrician Chief Relationship Specialty Start Date End Date Lit Maki DO PCP - General 05/16/15 06/03/15 Reza Pike MD PCP - General Family Medicine 06/04/15 05/16/22 Pcp, No, PRINTER ASSISTANT PCP - General 05/17/22 12/02/22 documented as of this encounter
--- OUTSIDE RECORDS SUMMARY | 2025-04-04 01:34 | XMS_ITS | Clinical Summary ---
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) from Last 3 Months or Most Recently Relevant to Health Maintenance Results * (ABNORMAL) BASIC METABOLIC PNL (05/31/2015 12:41 AM EDT) Glucose 101(H) 65 - 100 mg/dL 05/31/2015 1:52 AM EDT [facility] BUN 3(L) 8 - 25 mg/dL 05/31/2015 1:52 AM T [facility] Creatinine 0.75 0.70 - 1.40 mg/dL 05/31/2015 1:52 AM T [facility] Sodium 135 132 - 148 mmol/L 05/31/2015 1:52 AM T [facility] Potassium 4.3 3.5 - 5.0 mmol/L 05/31/2015 1:52 AM T [facility] Chloride 100 98 - 110 mmol/L 05/31/2015 1:52 AM T [facility] CO2 24 23 - 32 mmol/L 05/31/2015 1:52 AM [facility] Anion Gap 11 0 - 15 mmol/L 05/31/2015 1:52 AM T [facility] Calcium 8.6 8.5 - 10.5 mg/dL 05/31/2015 1:52 AM T [facility] eGFR- >60 05/31/2015 1:52 AM T [facility] eGFR-All Other Races >60 . 05/31/2015 1:52 AM [facility] Comment: eGFR (Estimated GFR) [...] Marcial Escobar (Hist) Lin LABORATORY Final Result [facility] [address] [facility] [address] * (ABNORMAL) LIPID PANEL BASIC (05/16/2015 10:42 AM EDT) Triglyceride 118 30 - 149 mg/dL 05/16/2015 6:55 PM EDT [facility] Cholesterol, Total 142 100 - 199 mg/dL 05/16/2015 6:55 PM EDT [facility] HDL Cholesterol 65 >55 mg/dL 5 6:55 PM EDT [facility] VLDL Cholesterol 24 6 - 40 mg/dL 05/16/2015 6:55 PM EDT [facility] LDL Cholesterol, Calculated 53(L) 60 - 129 mg/dL 05/16/2015 6:55 PM EDT [facility] Fasting Time Unknown hrs 05/16/2015 2:56 PM EDT [facility] TC:HDL Ratio 2.18 1.00 - 5.00 05/16/2015 6:55 PM EDT [facility] LDL:HDL Ratio 0.82 0.50 - 3.55 05/16/2015 6:55 PM EDT [facility] Non HDL Cholesterol 77(L) 90 - 159 mg/dL 05/16/2015 6:55 PM EDT [facility] Blood specimen (specimen) BLOOD SPECIMEN / Unknown 05/16/2015 10:42 AM EDT 05/16/2015 10:46 AM EDT us Warner Conde MD LABORATORY Final Result [facility] [address] [place] [address] from Last 3 Months or Most Recently Relevant to Health Maintenance Insurance MEDICARE [place]ICAID [place]
[2025-04-04 01:50] LABS: Basophils Absolute Auto 0.1 10^3/uL (0.0-0.1); Basophils Percent Auto 0.7 % (0.2-2.0); Eosinophils Absolute Auto 0.3 10^3/uL (0.0-0.7); Eosinophils Percent Auto 2.3 % (0.9-7.0); Hematocrit 24.9 % (36.0-48.0); Hemoglobin 7.9 g/dL (12.0-16.0); Immature Granulocytes Abs Auto 0.08 10^3/uL (0.00-0.03); Immature Granulocytes Pct Auto 0.7 % (0.0-0.5); Lymphocytes Absolute Auto 3.8 10^3/uL (1.2-3.8); Lymphocytes Percent Auto 33.8 % (20.5-60.0); Mean Corpuscular HGB Conc 31.7 g/dL (29.9-35.2); Mean Corpuscular Hemoglobin 22.8 pg (26.7-34.0); Monocytes Absolute Auto 0.8 10^3/uL (0.3-0.8); Monocytes Percent Auto 6.8 % (1.7-12.0); Neutrophils Absolute Auto 6.2 10^3/uL (1.4-6.5); Neutrophils Percent Auto 55.7 % (43.0-75.0); Platelet Count 476 10^3/uL (150-450); Red Blood Count 3.46 10^6/uL (4.20-5.40); Red Cell Distribution Width 20.5 % (11.0-15.0); White Blood Count 11.2 10^3/uL (4.0-11.0)
[2025-04-04] MEDS: ROPINIROLE HCL 1 MG TABLET PO (02:00)
[2025-04-04 02:02] LABS: Anion Gap 13.9; BUN Creatinine Ratio 7.2; Calcium 8.7 mg/dL (8.5-10.1); Carbon Dioxide 25.6 mmol/L (21.0-32.0); Chloride 101 mmol/L (98-107); Estimated GFR (African America >60 (>=60 mL/min/1.73m^2); Estimated GFR (Non-African Ame >60 (>=60 mL/min/1.73m^2); Glucose 148 mg/dL (74-106); Magnesium 1.6 mg/dL (1.8-2.4); Potassium 3.5 mmol/L (3.5-5.1); Sodium 137 mmol/L (136-145)
== END 2025-04-04 02:04 | disposition home or self-care (01) ==
PROVIDERS: Emergency Provider Internal Medicine; PCP Nurse Practitioner Family
DX: G25.81 Restless legs syndrome (principal); Z90.49 Acquired absence of other specified parts of digestive tract; Z95.0 Presence of cardiac pacemaker; Z98.51 Tubal ligation status
CPT/HCPCS: 36415; 80048; 83735; 85025; 99285

== ENCOUNTER 2025-04-07 12:09 | Outpatient (OUT) | payer MEDICARE, MEDICAID, SELFPAY ==
[2025-04-07 12:43] LABS: Basophils Absolute Auto 0.1 10^3/uL (0.0-0.1); Basophils Percent Auto 0.8 % (0.2-2.0); Eosinophils Absolute Auto 0.2 10^3/uL (0.0-0.7); Eosinophils Percent Auto 1.9 % (0.9-7.0); Hematocrit 27.6 % (36.0-48.0); Hemoglobin 8.7 g/dL (12.0-16.0); Immature Granulocytes Abs Auto 0.07 10^3/uL (0.00-0.03); Immature Granulocytes Pct Auto 0.7 % (0.0-0.5); Lymphocytes Percent Auto 28.5 % (20.5-60.0); Mean Corpuscular HGB Conc 31.5 g/dL (29.9-35.2); Mean Corpuscular Hemoglobin 22.6 pg (26.7-34.0); Mean Corpuscular Volume 71.7 fL (81.0-99.0); Mean Platelet Volume 10.5 fL (9.5-13.5); Monocytes Absolute Auto 0.6 10^3/uL (0.3-0.8); Monocytes Percent Auto 5.6 % (1.7-12.0); Neutrophils Absolute Auto 6.6 10^3/uL (1.4-6.5); Neutrophils Percent Auto 62.5 % (43.0-75.0); Platelet Count 600 10^3/uL (150-450); Red Blood Count 3.85 10^6/uL (4.20-5.40); Red Cell Distribution Width 21.1 % (11.0-15.0); White Blood Count 10.5 10^3/uL (4.0-11.0)
[2025-04-07 13:30] LABS: Percent Iron Saturation 2.9 %
== END 2025-04-07 12:10 | disposition home or self-care (01) ==
LOC: LAB 12:11
PROVIDERS: PCP Nurse Practitioner Family; Visit Provider Nurse Practitioner Family
DX: D50.9 Iron deficiency anemia, unspecified (principal); D72.829 Elevated white blood cell count, unspecified
CPT/HCPCS: 36415; 82728; 83540; 83550; 85025

== ENCOUNTER 2025-04-08 13:38 | Outpatient (REF) | payer MEDICARE, MEDICAID, SELFPAY ==
--- OUTSIDE RECORDS SUMMARY | 2023-05-28 09:36 | XMS_ITS | Continuity of Care Document ---
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 Capital Campaign Fundraiser Name Role Phone Paolo Olivo Unavailable Unavailable [...] Limited Oral Eval Intraoral-periapical 1st Film 4 [id number] Additional Jan [facility] FP MEDICAID Condoms FLU VACCINE, 3 YRS & >, IM NEW FP MEDICAID URINALYSIS, NONAUTO W/SCOPE SPECIMEN HANDLING FLU VACCINE, 3 YRS & >, IM Advance Directives Directive Yes / No Effective Date File Name No Information Encounters Encounter Description Practice Location Reason(s) For Visit Diagnoses Date Provider Providers Copied on Encounter [facility], [address] [place] [address], [id number] , [place] tel:[phone] [facility] No Information 3 Visci DO Paolo. [address] [place] [address], [id number], [place]. tel:[phone] OFFICE/OUTPA TIENT VISIT, EST [facility], [address] [place] [address], [id number] , tel:[phone] [facility] med refills (chief complaint) Body mass index [BMI] 36.0-36.9, adultCOPD w/ acute exacerbationLow back pain, unspecified 1 [facility] DO Max. [address], [place], [id number], [place]. tel:[phone] [facility], [address], [place], [id number] , [place] tel:[phone] [facility] lab draw (chief complaint) Chronic obstructive pulmonary disease, unspecified 1 [facility] DO Max. [address], [place], [id number], [place]. tel:[phone] OFFICE/OUTPA TIENT VISIT, [facility] [place], [address] [place] [address], [id number] , [place] tel: [phone] [facility] Med Refills (chief complaint)fa tigue (chief complaint) Body mass index [BMI] 36.0-36.9, adultAnxiety disorder, unspecifiedChron ic obstructive pulmonary disease, unspecifiedCOPD w/ acute exacerbationIron deficiency anemia due to chronic blood lossType 2 diabetes mellitus without complications 1 [facility] DO Max. [address] [place] [address], [id number], [place]. tel:[phone] OFFICE/OUTPA TIENT VISIT, [facility] [place], [address] [place] [address], [id number] , [place] tel:[phone] [facility] med refill (chief complaint) Body mass index [BMI] 36.0-36.9, adultCarpal tunnel syndrome, leftCervicalgiaM yash problem Sep- 1 [facility] DO Max. [address] [place] [address], [id number], [place]. tel:[phone] OFFICE/OUTPA TIENT VISIT, [facility] [place], [address] [place] [address], [id number] , [place] tel:[phone] [facility] A1C & Med Refills (chief complaint)di abetes (chief complaint) Body mass index [BMI] 36.0-36.9, adultType 2 diabetes mellitus with hyperglycemiaAnx iety disorder, unspecifiedCervi calgia 1 [facility]. [address], [place], [id number], [place]. tel:[phone] OFFICE/OUTPA TIENT VISIT, [facility] [place], [address], [place], [id number] , [place] tel: [phone] [facility] Med Refills (chief complaint)Mu sculoskeleta l pain (chief complaint) Anxiety disorder, unspecifiedCervi calgiaUnspecifie d sprain of left wrist, initial encounterBody mass index [BMI] 36.0-36.9, adult 1 [facility]. [address] [place] [address], [id number], [place]. tel:[phone] OFFICE/OUTPA TIENT VISIT, [facility] [place], [address] [place] [address], [id number] , [place] tel: [phone] [facility] med refill (chief complaint)fa tigue (chief complaint) Body mass index [BMI] 36.0-36.9, adultType 2 diabetes mellitus with other circulatory complicationsAnx iety disorder, unspecified 1 [facility]. [address] [place] [address], [id number], [place]. tel:[phone] OFFICE/OUTPA TIENT VISIT, [facility] [place], [address], [place], [id number] , [place] tel: [phone] [facility] med refill (chief complaint)Me curt loss (chief complaint) Type 2 diabetes mellitus with other circulatory complicationsBod y mass index [BMI] 35.0-35.9, adultAnxiety disorder, unspecifiedUrina ry frequencyMemory problem 1 [facility]. [address] [place] [address], [id number], [place]. tel:[phone] OFFICE/OUTPA TIENT VISIT, [facility] [place], [address] [place] [address], [id number] , [place] tel: [phone] [facility] med Refills (chief complaint)fa tigue (chief complaint) Body mass index [BMI] 35.0-35.9, adultAnemia, unspecified typeEssential (primary) hypertensionIron deficiency anemia due to chronic blood loss 0 1 [facility] Max. [address] [place] [address], [id number], [place]. tel:[phone] OFFICE/OUTPA TIENT VISIT, [facility] [place], [address] [place] [address], [id number] , [place] tel: [phone] [facility] med refill (chief complaint)Co ugh (chief complaint) Chronic obstructive pulmonary disease, unspecifiedAnxie ty disorder, unspecifiedOther cervical disc degeneration, unspecified cervical region 0 1 [facility] DO Max. [address] [place] [address], [id number], [place]. tel:[phone] OFFICE/OUTPA TIENT VISIT, [facility] [place], [address] [place] [address], [id number] , [place] tel: [phone] [facility] A1C (chief complaint)di abetes (chief complaint) Type 2 diabetes mellitus with other circulatory complicationsAnx iety disorder, unspecifiedLumba r back pain 0 1 [facility] DO Max. [address] [place] [address], [id number], [place]. tel:[phone] OFFICE/OUTPA TIENT VISIT, [facility] [place], [address] [place] [address], [id number] , [place] tel: [phone] [facility] Med Refills (chief complaint)GE RD (chief complaint) Body mass index [BMI] 34.0-34.9, adultChronic pulmonary embolismGastroin testinal hemorrhage associated with gastric ulcerType 2 diabetes mellitus with hyperglycemiaOth er cervical disc degeneration, unspecified cervical region 1 [facility] DO Max. [address] [place] [address], [id number], [place]. tel:[phone] OFFICE/OUTPA TIENT VISIT, [facility] [place], [address], [place], [id number] , [place] tel: [phone] [facility] med refill (chief complaint) Carpal tunnel syndrome of right wristAnxiety disorder, unspecifiedCervi calgia 3 0-202 0 [facility] DO Max. [address], [place], [id number], [place]. tel:[phone] OFFICE/OUTPA TIENT VISIT, [facility] [place], [address], [place], [id number] , [place] tel: [phone] [facility] Med Refills (chief complaint)ba ck pain (chief complaint) Body mass index [BMI] 32.0-32.9, adultOther cervical disc degeneration, unspecified cervical regionAnxiety disorder, unspecifiedCOPD w/ acute exacerbation 2- 0 [facility] DO Max. [address] [place] [address], [id number], [place]. tel:[phone] OFFICE/OUTPA TIENT VISIT, [facility] [place], [address] [place] [address], [id number] , [place] tel: [phone] [facility] A1C & Med Refills (chief complaint)di abetes (chief complaint) Body mass index [BMI] 32.0-32.9, adultType 2 diabetes mellitus without complicationsAnx iety disorder, unspecifiedOther cervical disc degeneration, unspecified cervical region 4 0 [facility] DO Max. [address] [place] [address], [id number], [place]. tel:[phone] OFFICE/OUTPA TIENT VISIT, [facility] [place], [address] [place] [address], [id number] , [place] tel: [phone] [facility] Med Refills (chief complaint) Body mass index [BMI] 32.0-32.9, adultAnxiety disorder, unspecifiedFolli culitisCervicalg ia Aug- 7-202 0 [facility] DO Max. [address] [place] [address], [id number], [place]. tel:[phone] OFFICE/OUTPA TIENT VISIT, [facility] [place], [address] [place] [address], [id number] , [place] tel: [phone] [facility] f/u hospital (chief complaint)fa tigue (chief complaint) Gastrointestinal hemorrhage associated with gastric ulcerIron deficiency anemia due to chronic blood lossAnxiety disorder, unspecified Jul- 0 [facility] DO Max. [address] [place] [address], [id number], [place]. tel:[phone] OFFICE/OUTPA TIENT VISIT, [facility] [place], [address] [place] [address], [id number] , [place] tel: [phone] [facility] A1C & MED REFILLS (chief complaint)Di zziness (chief complaint)di abetes (chief complaint) Body mass index (BMI) 32.0-32.9, adultType 2 diabetes mellitus without complicationsDiz ziness of unknown cause 0 [facility]. [address] [place] [address], [id number], [place]. tel:[phone] OFFICE/OUTPA TIENT VISIT, [facility] [place], [address] [place] [address], [id number] , [place] tel: [phone] [facility] Med Refills (chief complaint)GE RD (chief complaint) Anxiety disorder, unspecifiedDizzi ness of unknown causeGERD w/o esophagitis 0 [facility] DO Max. [address] [place] [address], [id number], [place]. tel:[phone] OFFICE/OUTPA TIENT VISIT, [facility] [place], [address] [place] [address], [id number] , [place] tel: [phone] [facility] med refills (chief complaint)ba ck pain (chief complaint) Body mass index (BMI) 32.0-32.9, adultLumbar back painType 2 diabetes mellitus without complicationsDiz ziness of unknown causeAnxiety disorder, unspecified 0 [facility] DO Max. [address], [place], [id number], [place]. tel:[phone] OFFICE/OUTPA TIENT VISIT, [facility] [place], [address], [place], [id number] , [place] tel: [phone] [facility] A1C & Med refills (chief complaint)An xiety (chief complaint) Body mass index (BMI) 32.0-32.9, adultType 2 diabetes mellitus without complicationsAnx iety disorder, unspecifiedOther cervical disc degeneration, unspecified cervical regionFolliculit isEssential (primary) hypertension 0 [facility] DO Max. [address], [place], [id number], [place]. [phone] OFFICE/OUTPA TIENT VISIT, [facility] [place], [address] [place] [address], [id number] , [place] tel: [phone] [facility] Anxiety (chief complaint) Anxiety disorder, unspecified 0 [facility] DO Max. [address], [place], [id number], [place]. 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 [address], [place], [id number], [place]. tel:[phone] OFFICE/OUTPA TIENT VISIT, [facility] [place], [address], [place], [id number] , [place] tel: [phone] [facility] finger infection (chief complaint)Ra sh (chief complaint) Body mass index (BMI) 32.0-32.9, adultHerpetic whitlowEssential (primary) hypertensionAnxi ety disorder, unspecifiedDizzi ness of unknown cause 0 [facility] DO Max. [address], [place], [id number], [place]. tel:[phone] OFFICE/OUTPA TIENT VISIT, [facility] [place], [address], [place], [id number] , [place] tel: [phone] [facility] Med Refills & A1C (chief complaint)Ra sh (chief complaint) Type 2 diabetes mellitus without complicationsAnx iety disorder, unspecifiedChron ic obstructive pulmonary disease, unspecified 0 [facility] DO Max. [address] [place] [address], [id number], [place]. tel:[phone] [facility], [address] [place] [address], [id number] , [place] tel: [phone] [facility] RANDOM UDS/PILL COUNT (chief complaint) No Information 9 [facility] DO Max. [address] [place] [address], [id number], [place]. tel:[phone] OFFICE/OUTPA TIENT VISIT, [facility] [place], [address] [place] [address], [id number] , [place] tel: [phone] [facility] Med refills (chief complaint)DR WHITLEY DANG (chief complaint) Body mass index (BMI) 32.0-32.9, adultAnxiety disorder, unspecifiedKidne y painDizziness of unknown cause 9 [facility] DO Max. [address] [place] [address], [id number], [place]. tel:[phone] OFFICE/OUTPA TIENT VISIT, [facility] [place], [address] [place] [address], [id number] , [place] tel:[phone] [facility] 4 WEEK F/U (chief complaint)Di zziness (chief complaint) Body mass index (BMI) 31.0-31.9, adultDizziness of unknown causeLumbar back painType 2 diabetes mellitus with hyperglycemia 9 [facility]. [address] [place] [address], [id number], [place]. tel:[phone] OFFICE/OUTPA TIENT VISIT, [facility] [place], [address] [place] [address], [id number] , [place] tel: [phone] [facility] Med refills & A1C (chief complaint)Di zziness (chief complaint) Body mass index (BMI) 31.0-31.9, adultDizziness of unknown causeAnxiety disorder, unspecifiedType 2 diabetes mellitus with hyperglycemia [address], [id number], [place]. tel:[phone] OFFICE/OUTPA TIENT VISIT, [facility] [place], [address] [place] [address], [id number] , [place] tel: [phone] [facility] 6 WK F/U (chief complaint)DR IGNACIO SCREEN (chief complaint) Pain in leg, unspecifiedBody mass index (BMI) 31.0-31.9, adultAnxiety disorder, unspecifiedChron ic pulmonary embolism [address], [id number], [place]. tel:[phone] OFFICE/OUTPA TIENT VISIT, [facility] [place], [address] [place] [address], [id number] , [place] tel: [phone] [facility] follow up (chief complaint)hy pertension (chief complaint)dr ignacio screen (chief complaint) Body mass index (BMI) 31.0-31.9, adultEncntr for general adult medical exam w/o abnormal findingsEssentia l (primary) hypertensionType 2 diabetes mellitus without complicationsAnx iety disorder, unspecified 9 [facility]. [address] [place] [address], [id number], [place]. tel:[phone] OFFICE/OUTPA TIENT VISIT, [facility] [place], [address], [place], [id number] , [place] tel: [phone] [facility] F/U HOSPITAL ADMITION (chief complaint)DR WHITLEY DANG (chief complaint) Body mass index (BMI) 31.0-31.9, adultAnxiety disorder, unspecifiedGERD w/o esophagitisHerpe tic shashi 9 [facility]. [address] [place] [address], [id number], [place]. tel:[phone] OFFICE/OUTPA TIENT VISIT, [facility] [place], [address], [place], [id number] , [place] tel: [phone] [facility] med refill (chief complaint) Body mass index (BMI) 31.0-31.9, adultAnxiety disorder, unspecifiedType 2 diabetes mellitus without complications 9 [facility]. [address] [place] [address], [id number], [place]. tel:[phone] [facility], [address] [place] [address], [id number] , [place] tel: [phone] [facility] med refills (chief complaint) Body mass index (BMI) 31.0-31.9, adultCellulitis and abscess of finger, unspecifiedCutan eous abscess of unspecified handBipolar disorder 9 [facility]. [address], [place], [id number], [place]. tel:[phone] [facility], [address] [place] [address], [id number] , [place] tel: [phone] [facility] Abnormal Mammogram 9 [facility]. [address] [place] [address], [id number], [place]. tel:[phone] [facility], [address] [place] [address], [id number] , [place] tel: [phone] [facility] Medication refills (chief complaint)A1 C (chief complaint) Body mass index (BMI) 31.0-31.9, adultType 2 diabetes mellitus without complicationsLum herbarium curator pain Jan- 9 [facility]. [address], [place], [id number], [place]. tel:[phone] [facility], [address] [place] [address], [id number] , [place] tel: [phone] [facility] Abnormal Mammogram Jan- 9 [facility]. [address] [place] [address], [id number], [place]. tel:[phone] OFFICE/OUTPA TIENT VISIT, EST [facility], [address] [place] [address], [id number] , [place] tel: [phone] [facility] sickness (chief complaint) Body mass index (BMI) 31.0-31.9, adultAcute non-recurrent maxillary sinusitisCOPD w/ acute exacerbationAnxi ety disorder, unspecifiedOther cervical disc degeneration, unspecified cervical region Dec- 9 [facility]. [address], [place], [id number], [place]. tel:[phone] [facility], [address] [place] [address], [id number] , [place] tel: [phone] [facility] Abnormal MammogramUnspeci fied urinary incontinence 9 [facility]. [address] [place] [address], [id number], [place]. 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 [address], [place], [id number], [place]. tel:[phone] [facility], [address], [place], [id number] , [place] tel: [phone] [facility] f/u abdominal pain (chief complaint) Body mass index (BMI) 32.0-32.9, adultHx pulmonary embolismHernia of abdominal wallAnxiety disorder, unspecified 9 [facility] DO Max. [address], [place], [id number], [place]. tel:[phone] [facility], [address] [place] [address], [id number] , [place] tel: [phone] [facility] abdomen issues (chief complaint) Right lower quadrant abdominal painEncounter for screening for Ca of colon 9 Kamaljit Wilcox. [address] [place] [address], [id number], [place]. tel:[phone] OFFICE/OUTPA TIENT VISIT, EST [facility], [address], [place], [id number] , [place] tel: [phone] [facility] rib pain when breathing (chief complaint) Body mass index (BMI) 31.0-31.9, adultRib pain on right sideLumbar back painRight hip pain 9 Kamaljit Wilcox. [address] [place] [address], [id number], [place]. tel:[phone] [facility], [address] [place] [address], [id number] , [place] tel:[phone] [facility] med refill (chief complaint) Right hip painLumbar back painAnxiety disorder, unspecified 9 Kamaljit Wilcox. [address] [place] [address], [id number], [place]. tel:[phone] OFFICE/OUTPA TIENT VISIT, [facility] [place], [address] [place] [address], [id number] , [place] tel: [phone] [facility] bladder infection (chief complaint) Oliguria 8 Shahzad Cobb. [address] [place] [address], [id number], [place]. tel:[phone] OFFICE/OUTPA TIENT VISIT, [facility] [place], [address] [place] [address], [id number] , [place] tel: [phone] [facility] Medication refill (chief complaint) Anxiety disorder, unspecifiedBipol ar disorderVertigo 8 Shahzad Cobb. [address] [place] [address], [id number], [place]. tel:[phone] [facility], [address] [place] [address], [id number] , [place] tel: [phone] [facility] medication refill (chief complaint)br onchitis (chief complaint)De nnison: (chief complaint) Chronic obstructive pulmonary disease, unspecifiedCough Type 2 diabetes mellitus without complicationsEss ential (primary) hypertension 8 Margarito Horne. [address] [place] [address], [id number], [place]. tel:[phone] [facility], [address] [place] [address], [id number] , [place] tel: [phone] [facility] sick (chief complaint)me d refill (chief complaint)dE NNISON: (chief complaint) CoughChronic obstructive pulmonary disease, unspecifiedType 2 diabetes mellitus without complicationsEss ential (primary) hypertension 8 Margarito Horne. [address] [place] [address], [id number], [place]. tel:[phone] [facility], [address] [place] [address], [id number] , [place] tel: [phone] [facility] med refill (chief complaint)De nnison: (chief complaint) Focal (segmental) acute (reversible) ischemia of small intestineAnxiety disorder, unspecifiedBipol ar disorderChronic obstructive pulmonary disease, unspecifiedType 2 diabetes mellitus without complicationsNic otine dependence, unspecified, uncomplicatedEss ential (primary) hypertension 8 Margarito Horne. [address] [place] [address], [id number], . tel:[phone] [facility], [address] [place] [address], [id number] , [place] tel: [phone] [facility] med refills (chief complaint)Le ft thight (chief complaint) Meralgia paresthetica, left lower limbAnxiety disorder, unspecifiedBipol ar disorder 7 Shahzda Cobb. [address] [place] [address], [id number], . tel:[phone] OFFICE/OUTPA TIENT VISIT, [facility] [place], [address] [place] [address], [id number] , [place] tel: [phone] [facility] R thigh pain (chief complaint)di scuss medication (chief complaint) Anxiety disorder, unspecifiedBipol ar disorderMeralgia paresthetica, left lower limb 7 Shahzad Cobb. [address] [place] [address], [id number], [place]. tel:[phone] [facility], [address] [place] [address], [id number] , [place] tel: [phone] [facility] HgbA1C (chief complaint)me dication refill (chief complaint) Anxiety disorder, unspecifiedBipol ar disorderCervical giaOther cervical disc degeneration, unspecified cervical regionSpinal stenosis, cervical regionPain in left shoulderType 2 diabetes mellitus with hyperglycemiaGER D w/o esophagitis 7 Shahzad Cobb. [address] [place] [address], [id number], [place]. tel:[phone] OFFICE/OUTPA TIENT VISIT, [facility] [place], [address], [place], [id number] , [place] tel: [phone] [facility] follow up (chief complaint) Chronic pulmonary embolismCervical giaOther cervical disc degeneration, unspecified cervical regionSpinal stenosis, cervical region 7 Shahzad Cobb. [address] [place] [address], [id number], [place]. tel:[phone] OFFICE/OUTPA TIENT VISIT, [facility] [place], [address], [place], [id number] , [place] tel: [phone] [facility] L arm/shoulder pain (chief complaint) CervicalgiaOther cervical disc degeneration, unspecified cervical regionSpinal stenosis, cervical region 6 Shahzad Cobb. [address] [place] [address], [id number], [place]. tel:[phone] OFFICE/OUTPA TIENT VISIT, [facility] [place], [address], [place], [id number] , [place] tel: [phone] [facility] severe leg pain (chief complaint) Restless leg syndromePain in leg, unspecifiedType 2 diabetes mellitus with hyperglycemiaSpi nal stenosis, cervical region 6 Shahzad Cobb. [address] [place] [address], [id number], [place]. tel:[phone] OFFICE/OUTPA TIENT VISIT, [facility] [place], [address], [place], [id number] , [place] tel: [phone] [facility] knee pain (chief complaint) Pain in kneeRestless leg syndrome 6 Shahzad Cobb. [address] [place] [address], [id number], [place]. tel:[phone] [facility], [address] [place] [address], [id number] , [place] tel: [phone] [facility] spasms on right side (chief complaint) Muscle spasm of backCervicalgiaO ther cervical disc degeneration, unspecified cervical regionSpinal stenosis, cervical region 6 Shahzad Cobb. [address] [place] [address], [id number], [place]. tel:[phone] OFFICE/OUTPA TIENT VISIT, [facility] [place], [address], [place], [id number] , [place] tel: [phone] [facility] med refill (chief complaint) Type 2 diabetes mellitus with hyperglycemiaCer vicalgiaOther cervical disc degeneration, unspecified cervical regionSpinal stenosis, cervical region 6 Shahzad Cobb. [address] [place] [address], [id number], [place]. tel:[phone] [facility], [address] [place] [address], [id number] , [place] tel: [phone] [facility] Vertigo 6 Shahzad Cobb. [address] [place] [address], [id number], [place]. tel:[phone] OFFICE/OUTPA TIENT VISIT, [facility] [place], [address] [place] [address], [id number] , [place] tel: [phone] [facility] medication refill (chief complaint)kn ee pain (chief complaint) Bipolar disorder 6 Shahzad Cobb. [address] [place] [address], [id number], [place]. tel:[phone] OFFICE/OUTPA TIENT VISIT, [facility] [place], [address] [place] [address], [id number] , [place] tel: [phone] [facility] medication refill (chief complaint)re stless leg syndrome (chief complaint) Restless leg syndromeCervical giaOther cervical disc degeneration, unspecified cervical regionSpinal stenosis, cervical region 6 Shahzad Cobb. [address] [place] [address], [id number], [place]. tel: [phone] OFFICE/OUTPA TIENT VISIT, [facility] [place], [address], [place], [id number] , [place] tel: [phone] [facility] medication refills (chief complaint) Bipolar disorderAnxiety disorder, unspecified 0 6 Shahzad Cobb. [address], [place], [id number], [place]. tel:[phone] OFFICE/OUTPA TIENT VISIT, [facility] [place], [address], [place], [id number] , [place] tel: [phone] [facility] medication refill (chief complaint) CervicalgiaOther cervical disc degeneration, unspecified cervical regionSpinal stenosis, cervical regionVertigo 6 Shahzad Cobb. [address] [place] [address], [id number], [place]. tel:[phone] OFFICE/OUTPA TIENT VISIT, [facility] [place], [address], [place], [id number] , [place] tel: [phone] [facility] cough (chief complaint)me d refill (chief complaint) Type 2 diabetes mellitus with hyperglycemiaCOP D w/ acute exacerbationCerv icalgiaOther cervical disc degeneration, unspecified cervical regionSpinal stenosis, cervical region 6 Shahzad Cobb. [address] [place] [address], [id number], [place]. tel:[phone] OFFICE/OUTPA TIENT VISIT, [facility] [place], [address], [place], [id number] , [place] tel: [phone] [facility] pain (chief complaint) CervicalgiaPain in left shoulder 5 Shahzad Cobb. [address] [place] [address], [id number], [place]. tel:[phone] OFFICE/OUTPA TIENT VISIT, [facility] [place], [address] [place] [address], [id number] , [place] tel:[phone] [facility] cold (chief complaint) COPD w/ acute exacerbationCerv icalgiaOther cervical disc degeneration, unspecified cervical region Aug- 5 Shahzad Cobb. [address] [place] [address], [id number], [place]. tel:[phone] OFFICE/OUTPA TIENT VISIT, [facility] [place], [address] [place] [address], [id number] , [place] tel: [phone] [facility] med refill (chief complaint) CervicalgiaDegen eration of cervical intervertebral discSpinal stenosis in cervical regionColostomy status 5 Shahzad Cobb. [address] [place] [address], [id number], [place]. tel:[phone] OFFICE/OUTPA TIENT VISIT, [facility] [place], [address] [place] [address], [id number] , [place] tel: [phone] [facility] Medcation refills (chief complaint)St aple removal (chief complaint) AnxietyColostomy status 5 Shahzad Cobb. [address] [place] [address], [id number], [place]. [phone] OFFICE/OUTPA TIENT VISIT, [facility] [place], [address] [place] [address], [id number] , [place] tel: [phone] [facility] med refill (chief complaint) Acute mesenteric ischemiaColostom y statusTrigger finger Apr- 5 Shahzad Cobb. [address] [place] [address], [id number], [place]. tel:[phone] OFFICE/OUTPA TIENT VISIT, [facility] [place], [address] [place] [address], [id number] , [place] tel:[phone] [facility] Med refill (chief complaint) Abdomen painAttention to colostomyColosto my status 5 Shahzad Cobb. [address], [place], [id number], [place]. tel:[phone] OFFICE/OUTPA TIENT VISIT, [facility] [place], [address], [place], [id number] , [place] tel: [phone] [facility] medication refill (chief complaint) Spinal stenosis in cervical regionColostomy status 5 Shahzad Cobb. [address], [place], [id number], [place]. tel:[phone] OFFICE/OUTPA TIENT VISIT, [facility] [place], [address], [place], [id number] , [place] tel: [phone] [facility] med refill (chief complaint) Colostomy statusAbdomen painAcute bronchitis 5 Nanda Wilcox. [address] [place] [address], [id number], [place]. tel:[phone] OFFICE/OUTPA TIENT VISIT, [facility] [place], [address], [place], [id number] , [place] tel: [phone] [facility] dyspnea (chief complaint) COPDColostomy statusTobacco abuse 5 Shahzad Cobb. [address], [place], [id number], [place]. tel:[phone] OFFICE/OUTPA TIENT VISIT, [facility] [place], [address], [place], [id number] , [place] tel: [phone] [facility] med f/u (chief complaint) Spinal stenosis in cervical regionCervicalgi a 5 Shahzad Cobb. [address], [place], [id number], [place]. tel:[phone] [facility], [address] [place] [address], [id number] , [place] tel: [phone] [facility] referral (chief complaint) Colostomy statusAttention to colostomy 4 [place] [employer] Jeri. [address], [place], [id number], [place]. [phone] OFFICE/OUTPA TIENT VISIT, [facility] [place], [address], [place], [id number] , [place] tel: [phone] [facility] ER (chief complaint) OtherColostomy statusAnxietyDia betes Mellitus Type 2, UncomplicatedOth er and unspecified coagulation defects 4 [place] [employer] Jeri. [address], [place], [id number], [place]. tel:[phone] OFFICE/OUTPA TIENT VISIT, [facility] [place], [address], [place], [id number] , [place] tel: [phone] [facility] BP check (chief complaint) CervicalgiaSpina l stenosis in cervical regionDisplaceme nt of cervical intervertebral disc without myelopathy 4 [place] [employer] Jeri. [address], [place], [id number], [place]. [phone] OFFICE/OUTPA TIENT VISIT, [facility] [place], [address], [place], [id number] , [place] tel: [phone] [facility] review labs and MRI (chief complaint) Degeneration of cervical intervertebral discDiabetes Mellitus Type 2, UncomplicatedUns pecified essential hypertensionUrin maryellen incontinence, unspecifiedMixed HyperlipidemiaOv erweight 4 Hemmer Libby. [address], [place], [id number], [place]. [facility], [address], [place], [id number] , [place] tel: [phone] [facility] No Information 4 Hemmer Libby. [address], [place], [id number], [place]. [facility], [address], [place], [id number] , [place] tel: [phone] [facility] Potential Drug Interaction (chief complaint) Therapeutic Drug Monitoring 4 Hemkirill Souza. [address], [place], [id number], [place]. OFFICE/OUTPA TIENT VISIT, [facility], [address], [place], [id number] , [place] tel: [phone] [facility] neck pain (chief complaint)ea r discomfort (chief complaint) Degeneration of cervical intervertebral discGERDDiabetes Mellitus Type 2, UncomplicatedUri nary incontinence, unspecifiedUnspe cified essential hypertensionMixe d HyperlipidemiaBe nign neoplasm of thyroid glands 4 Hemkirill Souza. [address], [place], [id number], [place]. [facility], [address] [place] [address], [id number] , [place] tel: [phone] [facility] Dental examination 4 [place] DMD January. [address], [place], [id number], [place]. tel:[phone] [facility], [address], [place], [id number] , [place] tel: [phone] [facility] Dental examination 4 [place] DMD January. [address], [place], [id number], [place]. tel:[phone] [facility], [address], [place], [id number] , [place] tel: [phone] [facility] Dental examination 0 4 [place] DMD January. [address], [place], [id number], [place]. tel:[phone] [facility], [address], [place], [id number] , [place] tel:[phone] [facility] No Information Jul-2 0 Lamp Mayte. [address], [place], [id number], [place]. tel:[phone] [facility], [address] [place] [address], [id number] , tel: [phone] [facility] No Information Sep-2 8-201 0 Visci DO Boone. [address] [place] [address], [id number], . tel:[phone] [facility], [address] [place] [address], [id number] , tel: [phone] [facility] No Information Dec-0 1-200 8 No Information [facility], [address] [place] [address], [id number] , tel: [phone] No Information Dec-0 1-200 8 Visci DO Boone. [address] [place] [address], [id number], . tel:[phone] Family History Family Member Type Diagnosis Age [...] ID Fredy ferrer(s) Ale Medicare Advantage SERGO [id number] Medicaid [facility] [id number] Social History Type Description Quantity Date Captured Comments Alcohol Use Details Unknown Caffeine Use Details Unknown Tobacco Use Status Smoking Status No Information Sex Female Sexual Orientation Straight or heterosexual Gender Identity Female Chief Complaint And Reason For Visit No Information Reason For Referral Reason For Referral No Information Plan Of Treatment Date Type Action Status Goal Influenza Vaccine. Due on due Goal Dental exam. Due on due Goal Hep A. Due on du e Goal Foot exam. Due on due Goal Urine microalbumin. Due on due Goal H&P. Due on due Goal Breast exam. Due on due Goal Hep A. Due on du e Goal Mammogram. Due on due Goal Depression scree nancy. Due on due Goal Zoster vaccine ( ). Due on due Goal RENAL MEDICINE PHYSICIAN exam. Due on due Goal Colonoscopy. Due on due Goal Pneumococcal vac cine. Due on due Goal Hemoglobin A1C. Due on due Goal Dilated eye exam. Due on May due Goal Tdap. Due on due Goal ECG. Due on due Goal PRAPARE ASSESSMENT. Due on due Goal Tdap Vaccine. Due on 2022 due Goal Urinalysis due Goal Colonoscopy. Due on due Goal Zoster vaccine ( ). Due on due Goal Depression scree nancy. Due on due Goal Breast exam. Due on due Goal Influenza Vaccine. Due on due Goal Urine microalbumin. Due on N due Goal Dilated eye exam. Due on Sep due Goal H&P. Due on due Goal Diabetes screening. Due on due Goal ECG. Due on due Goal Tdap. Due on due Goal Pneumococcal vac cine. Due on due Goal RENAL MEDICINE PHYSICIAN exam. Due on due Goal Foot exam. Due on due Goal Dental exam. Due on due Goal Hemoglobin A1C. Due on due Goal Mammogram. Due on due Goal Tobacco cessation counseling completed Goal Hemoglobin A1C. Due on due Goal Dilated eye exam. Due on Sep due Goal Pneumococcal vac cine. Due on due Goal Urine microalbumin. Due on due Goal Dental exam. Due on due Goal H&P. Due on due Goal Foot exam. Due on due Goal Depression scree nancy. Due on due Goal Zoster vaccine ( ). Due on due Goal ECG. Due on due Goal RENAL MEDICINE PHYSICIAN exam. Due on due Goal Tdap. Due on due Goal Diabetes screening. Due on due Goal Mammogram. Due on due Goal Colonoscopy. Due on due Goal Influenza Vaccine. Due on due Goal Breast exam. Due on due Goal Foot exam. Due on due Goal Dilated eye exam. Due on Aug due Goal Urine microalbumin. Due on O due Goal Zoster vaccine ( ). Due on due Goal Pneumococcal vac cine. Due on due Goal Colonoscopy. Due on due Goal Mammogram. Due on due Goal Tdap. Due on due Goal Hemoglobin A1C. Due on due Goal Breast exam. Due on due Goal Diabetes screening. Due on due Goal RENAL MEDICINE PHYSICIAN exam. Due on due Goal Influenza Vaccine. Due on Oc due Goal Depression scree nancy. Due on due Goal Dental exam. Due on due Goal ECG. Due on due Goal H&P. Due on due Goal Tobacco cessation counseling completed Goal Dietary manageme nt education, guidance, and counseling completed Goal Urine microalbumin. Due on S due Goal Pneumococcal vac cine. Due on due Goal Colonoscopy. Due on due Goal Zoster vaccine ( ). Due on due Goal Breast exam. Due on due Goal Foot exam. Due on due Goal Dilated eye exam. Due on Jul due Goal H&P. Due on due Goal Influenza Vaccine. Due on due Goal Tdap. Due on due Goal Hemoglobin A1C. Due on due Goal Mammogram. Due on due Goal RENAL MEDICINE PHYSICIAN exam. Due on due Goal Depression scree nancy. Due on due Goal Dental exam. Due on due Goal Diabetes screening. Due on due Goal ECG. Due on due Goal Dietary manageme nt education, guidance, and counseling completed Goal Pneumococcal vac cine. Due on due Goal Dental exam. Due on due Goal Depression scree nancy. Due on due Goal Mammogram. Due on due Goal Colonoscopy. Due on due Goal H&P. Due on due Goal Influenza Vaccine. Due on due Goal Zoster vaccine ( ). Due on due Goal Tdap. Due on due Goal Diabetes screening. Due on due Goal RENAL MEDICINE PHYSICIAN exam. Due on due Goal Breast exam. Due on due Goal ECG. Due on due Goal Hemoglobin A1C. Due on due Goal Urine microalbumin. Due on due Goal Dilated eye exam. Due on Jul due Goal Foot exam. Due on due Goal Tobacco cessation counseling completed Goal Dietary manageme nt education, guidance, and counseling completed Goal Dental exam. Due on due Goal Dilated eye exam. Due on Jun due Goal Mammogram. Due on due Goal ECG. Due on due Goal Hemoglobin A1C. Due on due Goal H&P. Due on due Goal Influenza Vaccine. Due on due Goal Zoster vaccine ( ). Due on due Goal Tdap. Due on due Goal Foot exam. Due on due Goal Pneumococcal vac cine. Due on due Goal Breast exam. Due on due Goal Urine microalbumin. Due on due Goal Diabetes screening. Due on due Goal Colonoscopy. Due on 025 due Goal RENAL MEDICINE PHYSICIAN exam. Due on due Goal Depression scree nancy. Due on due Goal Tobacco cessation counseling completed Goal Dietary manageme nt education, guidance, and counseling completed Goal Urine microalbumin. Due on due Goal Influenza Vaccine. Due on due Goal Pneumococcal vac cine. Due on due Goal H&P. Due on due Goal Zoster vaccine ( ). Due on due Goal Diabetes screening. Due on due Goal Depression scree nancy. Due on due Goal RENAL MEDICINE PHYSICIAN exam. Due on due Goal Breast exam. Due on due Goal ECG. Due on due Goal Tdap. Due on due Goal Dental exam. Due on due Goal Hemoglobin A1C. Due on due Goal Mammogram. Due on due Goal Colonoscopy. Due on 025 due Goal Foot exam. Due on due Goal Dilated eye exam. Due on May due Goal Tobacco cessation counseling completed Goal Dietary manageme nt education, guidance, and counseling completed Goal ECG. Due on due Goal Colonoscopy. Due on 025 due Goal Influenza Vaccine. Due on due Goal Depression scree nancy. Due on due Goal Hemoglobin A1C. Due on due Goal Foot exam. Due on due Goal H&P. Due on due Goal Diabetes screening. Due on due Goal Mammogram. Due on due Goal Urine microalbumin. Due on due Goal Zoster vaccine ( ). Due on due Goal Breast exam. Due on due Goal Tdap. Due on due Goal Dilated eye exam. Due on Apr due Goal Dental exam. Due on due Goal RENAL MEDICINE PHYSICIAN exam. Due on due Goal Pneumococcal vac cine. Due on due Goal Tobacco cessation counseling completed Goal Dietary manageme nt education, guidance, and counseling completed Goal Zoster vaccine ( ). Due on due Goal Pneumococcal vac cine. Due on due Goal Foot exam. Due on due Goal Urine microalbumin. Due on due Goal Breast exam. Due on due Goal Diabetes screening. Due on due Goal Depression scree nancy. Due on due Goal Colonoscopy. Due on 025 due Goal ECG. Due on due Goal Hemoglobin A1C. Due on due Goal Dental exam. Due on due Goal RENAL MEDICINE PHYSICIAN exam. Due on due Goal Dilated eye exam. Due on March due Goal H&P. Due on due Goal Tdap. Due on due Goal Influenza Vaccine. Due on due Goal Mammogram. Due on due Goal Tobacco cessation counseling completed Goal Dietary manageme nt education, guidance, and counseling completed Goal Zoster vaccine ( ). Due on due Goal Depression scree nancy. Due on due Goal Mammogram. Due on due Goal Dilated eye exam. Due on Jan due Goal Colonoscopy. Due on 025 due Goal Foot exam. Due on due Goal Dental exam. Due on due Goal RENAL MEDICINE PHYSICIAN exam. Due on due Goal Urine microalbumin. Due on A due Goal H&P. Due on due Goal ECG. Due on due Goal Tdap. Due on due Goal Pneumococcal vac cine. Due on due Goal Hemoglobin A1C. Due on due Goal Breast exam. Due on due Goal Influenza Vaccine. Due on Ap due Goal Diabetes screening. Due on due Goal Mammogram. Due on due Goal RENAL MEDICINE PHYSICIAN exam. Due on due Goal Foot exam. Due on due Goal Zoster vaccine ( ). Due on due Goal Pneumococcal vac cine. Due on due Goal Tdap. Due on due Goal Influenza Vaccine. Due on due Goal Dilated eye exam. Due on Dec due Goal ECG. Due on due Goal Breast exam. Due on due Goal Colonoscopy. Due on due Goal H&P. Due on due Goal Urine microalbumin. Due on due Goal Dental exam. Due on due Goal Diabetes screening. Due on due Goal Hemoglobin A1C. Due on due Goal Depression scree nancy. Due on due Goal Tobacco cessation counseling completed Goal Dilated eye exam. Due on Nov due Goal Hemoglobin A1C. Due on due Goal Dental exam. Due on due Goal Urine microalbumin. Due on due Goal Pneumococcal vac cine. Due on due Goal Foot exam. Due on due Goal Colonoscopy. Due on due Goal Tdap. Due on due Goal Depression scree nancy. Due on due Goal Breast exam. Due on due Goal Diabetes screening. Due on due Goal ECG. Due on due Goal H&P. Due on due Goal Mammogram. Due on due Goal Influenza Vaccine. Due on due Goal RENAL MEDICINE PHYSICIAN exam. Due on due Goal Zoster vaccine ( ). Due on due Goal Tobacco cessation counseling completed Goal Dietary manageme nt education, guidance, and counseling completed Goal H&P. Due on due Goal Tdap. Due on due Goal Diabetes screening. Due on due Goal ECG. Due on due Goal Zoster vaccine ( ). Due on due Goal Dental exam. Due on due Goal Colonoscopy. Due on due Goal Influenza Vaccine. Due on due Goal Depression scree nancy. Due on due Goal Breast exam. Due on due Goal Dilated eye exam. Due on Oct due Goal Foot exam. Due on 0 due Goal Urine microalbumin. Due on due Goal Hemoglobin A1C. Due on due Goal Pneumococcal vac cine. Due on due Goal Mammogram. Due on 0 due Goal RENAL MEDICINE PHYSICIAN exam. Due on due Goal Tobacco cessation counseling completed Goal Pneumococcal vac cine. Due on due Goal RENAL MEDICINE PHYSICIAN exam. Due on due Goal Foot exam. Due on 0 due Goal Hemoglobin A1C. Due on due Goal Dental exam. Due on due Goal Urine microalbumin. Due on due Goal Dilated eye exam. Due on Oct due Goal Mammogram. Due on 0 due Goal ECG. Due on due Goal Breast exam. Due on due Goal Colonoscopy. Due on due Goal Depression scree nancy. Due on due Goal Tdap. Due on due Goal Diabetes screening. Due on due Goal Influenza Vaccine. Due on due Goal H&P. Due on due Goal Zoster vaccine ( ). Due on due Goal Tobacco cessation counseling completed Goal Dietary manageme nt education, guidance, and counseling completed Goal RENAL MEDICINE PHYSICIAN exam. Due on due Goal Pneumococcal vac cine. Due on due Goal Foot exam. Due on 0 due Goal Hemoglobin A1C. Due on due Goal Dilated eye exam. Due on Sep due Goal Dental exam. Due on due Goal Urine microalbumin. Due on due Goal Breast exam. Due on due Goal Zoster vaccine ( ). Due on due Goal Depression scree nancy. Due on due Goal H&P. Due on due Goal Diabetes screening. Due on due Goal Mammogram. Due on 0 due Goal Colonoscopy. Due on due Goal Influenza Vaccine. Due on due Goal Tdap. Due on due Goal ECG. Due on due Goal Tobacco cessation counseling completed Goal Dietary manageme nt education, guidance, and counseling completed Goal Dental exam. Due on due Goal Mammogram. Due on 0 due Goal Diabetes screening. Due on due Goal Tdap. Due on due Goal Breast exam. Due on due Goal H&P. Due on due Goal Urine microalbumin. Due on O due Goal ECG. Due on due Goal Dilated eye exam. Due on Aug due Goal Influenza Vaccine. Due on Oc t due Goal RENAL MEDICINE PHYSICIAN exam. Due on due Goal Depression scree nancy. Due on due Goal Foot exam. Due on 0 due Goal Hemoglobin A1C. Due on due Goal Zoster vaccine ( ). Due on due Goal Pneumococcal vac cine. Due on due Goal Colonoscopy. Due on 025 due Goal Tobacco cessation counseling completed Goal Dietary manageme nt education, guidance, and counseling completed Goal Foot exam. Due on 0 due Goal RENAL MEDICINE PHYSICIAN exam. Due on due Goal Tdap. Due on due Goal Mammogram. Due on 0 due Goal Breast exam. Due on due Goal Dental exam. Due on due Goal ECG. Due on due Goal Influenza Vaccine. Due on due Goal Depression scree nancy. Due on due Goal Dilated eye exam. Due on Jul due Goal Zoster vaccine ( ). Due on due Goal Hemoglobin A1C. Due on due Goal Colonoscopy. Due on 025 due Goal Urine microalbumin. Due on due Goal H&P. Due on due Goal Pneumococcal vac cine. Due on due Goal Diabetes screening. Due on due Goal Tobacco cessation counseling completed Goal H&P. Due on due Goal Zoster vaccine ( 1st). Due on due Goal ECG. Due on due Goal Tdap. Due on due Goal Colonoscopy. Due on 025 due Goal Foot exam. Due on 0 due Goal Influenza Vaccine. Due on due Goal Mammogram. Due on 0 due Goal Dental exam. Due on due Goal RENAL MEDICINE PHYSICIAN exam. Due on due Goal Urine microalbumin. Due on due Goal Pneumococcal vac cine. Due on due Goal Breast exam. Due on due Goal Hemoglobin A1C. Due on due Goal Dilated eye exam. Due on Jun due Goal Depression scree nancy. Due on due Goal Diabetes screening. Due on due Goal Tobacco cessation counseling completed Goal Dietary manageme nt education, guidance, and counseling completed Goal Depression scree nancy. Due on due Goal Breast exam. Due on due Goal Mammogram. Due on 0 due Goal Hemoglobin A1C. Due on due Goal Urine microalbumin. Due on due Goal Zoster vaccine ( ). Due on due Goal Tdap. Due on due Goal Dilated eye exam. Due on May due Goal Foot exam. Due on 0 due Goal RENAL MEDICINE PHYSICIAN exam. Due on due Goal Pneumococcal vac cine. Due on due Goal Diabetes screening. Due [...] Urine microalbumin. Due on due Goal Depression scree nancy. Due on due Goal Pneumococcal vac cine. Due on due Goal RENAL MEDICINE PHYSICIAN exam. Due on due Goal Colonoscopy. Due on 025 due Goal H&P. Due on due Goal Influenza Vaccine. Due on due Goal Tdap. Due on due Goal Breast exam. Due on due Goal ECG. Due on due Goal Diabetes screening. Due on due Goal Zoster vaccine ( ). Due on due Goal Tobacco cessation counseling completed Goal Dietary manageme nt education, guidance, and counseling completed Goal Depression scree nancy. Due on due Goal Diabetes screening. Due on due Goal Influenza Vaccine. Due on due Goal Zoster vaccine ( ). Due on due Goal RENAL MEDICINE PHYSICIAN exam. Due on due Goal Tdap. Due on due Goal Hemoglobin A1C. Due on due Goal Mammogram. Due on 0 due Goal Urine microalbumin. Due on due Goal Colonoscopy. Due on due Goal ECG. Due on due Goal Breast exam. Due on due Goal Dental exam. Due on due Goal H&P. Due on due Goal Dilated eye exam. Due on March due Goal Foot exam. Due on 0 due Goal Pneumococcal vac cine. Due on due Goal Tobacco cessation counseling completed Goal Dietary manageme nt education, guidance, and counseling completed Goal Colonoscopy. Due on due Goal Pneumococcal vac cine. Due on due Goal Influenza Vaccine. Due on due Goal Dilated eye exam. Due on March due Goal Depression scree nancy. Due on due Goal Dental exam. Due on due Goal RENAL MEDICINE PHYSICIAN exam. Due on due Goal Hemoglobin A1C. Due on due Goal Breast exam. Due on due Goal Foot exam. Due on 0 due Goal Urine microalbumin. Due on M due Goal H&P. Due on due Goal Tdap. Due on due Goal Mammogram. Due on 0 due Goal ECG. Due on due Goal Diabetes screening. Due on due Goal Pneumococcal vac cine. Due on due Goal Dilated eye exam. Due on Dec due Goal Foot exam. Due on 0 due Goal Dental exam. Due on due Goal Urine microalbumin. Due on due Goal Colonoscopy. Due on due Goal H&P. Due on due Goal Tdap. Due on due Goal Diabetes screening. Due on due Goal ECG. Due on due Goal RENAL MEDICINE PHYSICIAN exam. Due on due Goal Breast exam. Due on due Goal Influenza Vaccine. Due on due Goal Mammogram. Due on 0 due Goal Depression scree nancy. Due on due Goal Tobacco cessation counseling completed Goal Dietary manageme nt education, guidance, and counseling completed Goal Tdap. Due on due Goal Breast exam. Due on due Goal Depression scree nancy. Due on due Goal Influenza Vaccine. Due on due Goal Pneumococcal vac cine. Due on due Goal RENAL MEDICINE PHYSICIAN exam. Due on due Goal Colonoscopy. Due [...] Goal Tobacco cessation counseling completed Goal Dietary manageme nt education, guidance, and counseling completed Goal Diabetes screening. Due on due Goal Breast exam. Due on due Goal RENAL MEDICINE PHYSICIAN exam. Due on due Goal Depression scree nancy. Due on due Goal Tdap. Due on due Goal Mammogram. Due on 0 due Goal H&P. Due on due Goal Colonoscopy. Due on due Goal Urine microalbumin. Due on due Goal Pneumococcal vac cine. Due on due Goal Foot exam. Due [...] Goal Diabetes screening. Due on due Goal Pneumococcal vac cine. Due on due Goal Mammogram. Due on 9 due Goal Dental exam. Due on 019 due Goal Depression scree nancy. Due on due Goal Breast exam. Due on due Goal Tdap. Due on due Goal H&P. Due on due Goal RENAL MEDICINE PHYSICIAN exam. Due on due Goal ECG. Due on due Goal Urine microalbumin. Due on D due Goal Dental exam. Due on due Goal Urine microalbumin. Due on N due Goal Foot exam. Due on 0 due Goal Dilated eye exam. Due on Sep due Goal Pneumococcal vac cine. Due on due Goal Depression scree nancy. Due on due Goal ECG. Due on due Goal RENAL MEDICINE PHYSICIAN exam. Due on due Goal Breast exam. Due on due Goal Tdap. Due on due Goal Colonoscopy. Due on due Goal Diabetes screening. Due on A due Goal H&P. Due on due Goal Mammogram. Due on 9 due Goal Influenza Vaccine. Due on due Goal Tobacco cessation counseling completed Goal Dietary manageme nt education, guidance, and counseling completed Goal Breast exam. Due on due Goal H&P. Due on due Goal Influenza Vaccine. Due on due Goal Colonoscopy. Due on due Goal Mammogram. Due on 9 due Goal Dental exam. Due on due Goal Dilated eye exam. Due on Aug due Goal ECG. Due on due Goal Urine microalbumin. Due on O due Goal Tdap. Due on due Goal RENAL MEDICINE PHYSICIAN exam. Due on due Goal Depression scree nancy. Due on due Goal Foot exam. Due on 0 due Goal Pneumococcal vac cine. Due on due Goal Diabetes screening. Due on A due Goal Tobacco cessation counseling completed Goal Dietary manageme nt education, guidance, and counseling completed Goal Mammogram. Due on 9 due Goal Breast exam. Due on due Goal Pneumococcal vac cine. Due on due Goal ECG. Due on due Goal Influenza Vaccine. Due on due Goal Dental exam. Due on due Goal H&P. Due on due Goal RENAL MEDICINE PHYSICIAN exam. Due on due Goal Diabetes screening. Due on A due Goal Tdap. Due on due Goal Dilated eye exam. Due on Aug due Goal Urine microalbumin. Due on O due Goal Colonoscopy. Due on 025 due Goal Depression scree nancy. Due on due Goal Foot exam. Due on 0 due Goal Tobacco cessation counseling completed Goal Dietary manageme nt education, guidance, and counseling completed Goal RENAL MEDICINE PHYSICIAN exam. Due on due Goal Tdap. Due on due Goal ECG. Due on due Goal Influenza Vaccine. Due on due Goal Dental exam. Due on due Goal Dilated eye exam. Due on Jun due Goal Pneumococcal vac cine. Due on due Goal Urine microalbumin. Due on due Goal Foot exam. Due on 0 due Goal Mammogram. Due on 9 due Goal Depression scree nancy. Due on due Goal Colonoscopy. Due on due Goal Diabetes screening. Due on due Goal H&P. Due on due Goal Breast exam. Due on due Goal Tobacco cessation counseling completed Goal Dietary manageme nt education, guidance, and counseling completed Goal Depression scree nancy. Due on due Goal Pneumococcal vac cine. Due on due Goal RENAL MEDICINE PHYSICIAN exam. Due on due Goal Dilated eye [...] Goal Tobacco cessation counseling completed Goal Dietary manageme nt education, guidance, and counseling completed Goal Dental exam. Due on due Goal Breast exam. Due on due Goal H&P. Due on due Goal Colonoscopy. Due on due Goal Foot exam. Due on 9 due Goal Urine microalbumin. Due on due Goal Depression scree nancy. Due on due Goal RENAL MEDICINE PHYSICIAN exam. Due on due Goal Influenza Vaccine. Due on due Goal Dilated eye exam. Due on Apr due Goal Pneumococcal vac cine. Due on due Goal Tdap. Due on due Goal Mammogram. Due on 9 due Goal ECG. Due on due Goal Diabetes screening. Due on A due Goal Tobacco cessation counseling completed Goal Dietary manageme nt education, guidance, and counseling completed Goal Mammogram. Due on 9 due Goal Tdap. Due on due Goal Influenza Vaccine. Due on due Goal Colonoscopy. Due on due Goal Dental exam. Due on due Goal Foot exam. Due on 9 due Goal RENAL MEDICINE PHYSICIAN exam. Due on due Goal Depression scree nancy. Due on due Goal Breast exam. Due on due Goal Diabetes screening. Due on A due Goal Pneumococcal vac cine. Due on due Goal ECG. Due on due Goal H&P. Due on due Goal Dilated eye exam. Due on March due Goal Urine microalbumin. Due on due Goal Tobacco cessation counseling completed Goal Dietary manageme nt education, guidance, and counseling completed Goal Dilated eye exam. Due on March due Goal Pneumococcal vac cine. Due on due Goal Urine microalbumin. Due on due Goal Dental exam. Due on due Goal Mammogram. Due on 9 due Goal ECG. Due on due Goal Breast exam. Due on due Goal Diabetes screening. Due on A due Goal RENAL MEDICINE PHYSICIAN exam. Due on due Goal Colonoscopy. Due on 025 due Goal Tdap. Due on due Goal H&P. Due on due Goal Influenza Vaccine. Due on due Goal Depression scree nancy. Due on due Goal Foot exam. Due on 9 due Goal Tobacco cessation counseling completed Goal Dietary manageme nt education, guidance, and counseling completed Goal Pneumococcal vac cine. Due on due Goal Breast exam. Due on due Goal Dental exam. Due on due Goal Influenza Vaccine. Due on due Goal Dilated eye exam. Due on Jan due Goal Diabetes screening. Due on A due Goal Tdap. Due on due Goal Mammogram. Due on 9 due Goal H&P. Due on due Goal Urine microalbumin. Due on A due Goal Colonoscopy. Due on due Goal ECG. Due on due Goal Foot exam. Due on due Goal RENAL MEDICINE PHYSICIAN exam. Due on due Goal Depression scree nancy. Due on due Goal H&P. Due on due Goal Foot exam. Due on due Goal Pneumococcal vac cine. Due on due Goal Urine microalbumin. Due on A due Goal Breast exam. Due on due Goal Depression scree nancy. Due on due Goal Colonoscopy. Due on due Goal RENAL MEDICINE PHYSICIAN exam. Due on due Goal Dental exam. Due on due Goal Dilated eye exam. Due on Jan due Goal Mammogram. Due on due Goal ECG. Due on due Goal Tdap. Due on due Goal Diabetes screening. Due on A due Goal Influenza Vaccine. Due on due Goal Tobacco cessation counseling completed Goal Dietary manageme nt education, guidance, and counseling completed Goal Tdap. Due on due Goal Foot exam. Due on 9 due Goal RENAL MEDICINE PHYSICIAN exam. Due on due Goal Mammogram. Due on 9 due Goal Urine microalbumin. Due on A due Goal Dental exam. Due on due Goal Dilated eye exam. Due on Jan due Goal Diabetes screening. Due on A due Goal Depression scree nancy. Due on due Goal Pneumococcal vac cine. Due on due Goal H&P. Due on due Goal Colonoscopy. Due on 025 due Goal Influenza Vaccine. Due on due Goal Breast exam. Due on due Goal ECG. Due on due Goal Foot exam. Due on 9 due Goal Urine microalbumin. Due on due Goal Dilated eye exam. Due on Dec due Goal Pneumococcal vac cine. Due on due Goal Dental exam. Due on due Goal Influenza Vaccine. Due on due Goal Mammogram. Due on 9 due Goal Tdap. Due on due Goal Depression scree nancy. Due on due Goal Diabetes screening. Due on A due Goal RENAL MEDICINE PHYSICIAN exam. Due on due Goal Breast exam. Due on due Goal ECG. Due on due Goal Colonoscopy. Due on 025 due Goal H&P. Due on due Goal Tobacco cessation counseling completed Goal Dietary manageme nt education, guidance, and counseling completed Goal Dilated eye exam. Due on Dec due Goal Tdap. Due on due Goal Pneumococcal vac cine. Due on due Goal Urine microalbumin. Due on due Goal Influenza Vaccine. Due on due Goal Foot exam. Due on 9 due Goal Mammogram. Due on due Goal Dental exam. Due on due Goal RENAL MEDICINE PHYSICIAN exam. Due on due Goal Depression scree nancy. Due on due Goal Colonoscopy. Due on due Goal Breast exam. Due on due Goal ECG. Due on due Goal H&P. Due on due Goal Diabetes screening. Due on due Goal Diabetes screening. Due on due Goal Foot exam. Due on 9 due Goal Urine microalbumin. Due on due Goal Influenza Vaccine. Due on due Goal Breast exam. Due on due Goal Depression scree nancy. Due on due Goal Colonoscopy. Due on 025 due Goal H&P. Due on due Goal Tdap. Due on due Goal Dilated eye exam. Due on Dec due Goal Pneumococcal vac cine. Due on due Goal Dental exam. Due on due Goal RENAL MEDICINE PHYSICIAN exam. Due on due Goal ECG. Due on due Goal Mammogram. Due on 9 due Goal Tobacco cessation counseling completed Goal Dietary manageme nt education, guidance, and counseling completed Goal RENAL MEDICINE PHYSICIAN exam. Due on due Goal Diabetes screening. Due on due Goal Tdap. Due on due Goal H&P. Due on due Goal Dental exam. Due on due Goal Mammogram. Due on 9 due Goal Depression scree nancy. Due on due Goal Dilated eye exam. Due on Dec due Goal Breast exam. Due on due Goal Urine microalbumin. Due on due Goal Foot exam. Due on 9 due Goal Pneumococcal vac cine. Due on due Goal Influenza Vaccine. Due on due Goal Colonoscopy. Due on due Goal ECG. Due on due Goal Tobacco cessation counseling completed Goal Dietary manageme nt education, guidance, and counseling completed Goal ECG. Due on due Goal Depression scree nancy. Due on due Goal RENAL MEDICINE PHYSICIAN exam. Due on due Goal Dental exam. Due on due Goal Pneumococcal vac cine. Due on due Goal Breast exam. Due on due Goal H&P. Due on due Goal Dilated eye exam. Due on Dec due Goal Tdap. Due on due Goal Urine microalbumin. Due on due Goal Foot exam. Due on 9 due Goal Colonoscopy. Due on 025 due Goal Mammogram. Due on 9 due Goal Influenza Vaccine. Due on due Goal Diabetes screening. Due on due Goal Tobacco cessation counseling completed Goal RENAL MEDICINE PHYSICIAN exam. Due on due Goal Dental exam. Due on 019 due Goal ECG. Due on due Goal Mammogram. Due on 9 due Goal Dilated eye exam. Due on Nov due Goal Urine microalbumin. Due on due Goal H&P. Due on due Goal Foot exam. Due on 9 due Goal Colonoscopy. Due on 025 due Goal Depression scree nancy. Due on due Goal Diabetes screening. Due on A due Goal Breast exam. Due on due Goal Pneumococcal vac cine. Due on due Goal Tdap. Due on due Goal Influenza Vaccine. Due on due Goal Tobacco cessation counseling completed Goal Dietary manageme nt education, guidance, and counseling completed Goal Mammogram. Due on 9 due Goal Influenza Vaccine. Due on due Goal Dental exam. Due on due Goal Tdap. Due on due Goal Dilated eye exam. Due on Nov due Goal Foot exam. Due on 9 due Goal Urine microalbumin. Due on due Goal Pneumococcal vac cine. Due on due Goal ECG. Due on due Goal Colonoscopy. Due on 025 due Goal Diabetes screening. Due on A due Goal Depression scree nancy. Due on due Goal H&P. Due on due Goal Breast exam. Due on due Goal RENAL MEDICINE PHYSICIAN exam. Due on due Goal BMP fasting. Due on 014 due Goal ECG. Due on due Goal RENAL MEDICINE PHYSICIAN exam. Due on due Goal Influenza Vaccine. Due on due Goal H&P. Due on due Goal Tdap. Due on due Goal Mammogram. Due on 8 due Goal Foot exam. Due on due Goal Breast exam. Due on due Goal FOBT. Due on due Goal Urine microalbumin. Due on due Goal Dilated eye exam. Due on March due Goal Dental exam. Due on due Goal Pneumococcal vac cine. Due on due Goal Pneumococcal vac cine. Due on due Goal Dilated eye exam. Due on Jan due Goal Breast exam. Due on due Goal Dental exam. Due on due Goal Urine microalbumin. Due on A due Goal Foot exam. Due on 8 due Goal H&P. Due on due Goal Influenza Vaccine. Due on due Goal ECG. Due on due Goal Urinalysis. Due on 14 due Goal Tdap. Due on due Goal BMP fasting. Due on 014 due Goal FOBT. Due on due Goal Mammogram. Due on 8 due Goal RENAL MEDICINE PHYSICIAN exam. Due on due Goal Breast exam. Due on 018 due Goal FOBT. Due on due Goal Urinalysis. Due on 14 due Goal RENAL MEDICINE PHYSICIAN exam. Due on due Goal ECG. Due on due Goal Pneumococcal vac cine. Due on due Goal Foot exam. Due on 8 due Goal Dental exam. Due on due [...] Goal Urinalysis. Due on 14 due Goal RENAL MEDICINE PHYSICIAN exam. Due on due Goal Dental exam. Due on due Goal Mammogram. Due on 8 due Goal Breast exam. Due on due Goal Foot exam. Due on 8 due Goal Pneumococcal vac cine. Due on due Goal BMP fasting. Due on due Goal Dilated eye exam. [...] exam. Due on 8 due Goal Pneumococcal vac cine. Due on due Goal Breast exam. Due on due Goal Urinalysis. Due on 14 due Goal Colonoscopy. Due on due Goal ECG. Due on due Goal BMP fasting. Due on due Goal FOBT. Due on due Goal H&P. Due on due Goal RENAL MEDICINE PHYSICIAN exam. Due on due Goal Dental exam. Due on due Goal RENAL MEDICINE PHYSICIAN exam. Due on due Goal Dilated eye exam. Due on Aug due Goal Pneumococcal vac cine. Due on due Goal Foot exam. Due [...] due Goal Tdap. Due on due Goal Foot exam. Due on due Goal Breast exam. Due on due Goal Urinalysis. Due on 14 due Goal Mammogram. Due on due Goal Urine microalbumin. Due on due Goal RENAL MEDICINE PHYSICIAN exam. Due on due Goal Pneumococcal vac cine. Due on due Goal ECG. Due on due Goal Dilated eye exam. Due on Jul due Goal H&P. Due on due Goal Influenza Vaccine. Due on due Goal Dental exam. Due on due Goal BMP fasting. Due on 014 due Goal FOBT. Due on due Goal Colonoscopy. Due on due Goal Tobacco cessation counseling completed Goal Urine microalbumin. Due on A due Goal Dilated eye exam. Due on Jun due Goal Foot exam. Due on due Goal Influenza Vaccine. Due on due Goal Pneumococcal vac cine. Due on due Goal Colonoscopy. Due on due Goal FOBT. Due on due Goal Urinalysis. Due on 14 due Goal Mammogram. Due on 7 due Goal RENAL MEDICINE PHYSICIAN exam. Due on due Goal BMP fasting. Due on 014 due Goal Breast exam. Due on due Goal Dental exam. Due on due Goal H&P. Due on due Goal Tdap. Due on due Goal ECG. Due on due Goal Tobacco cessation counseling completed Goal Breast exam. Due on due Goal Colonoscopy. Due on due Goal RENAL MEDICINE PHYSICIAN exam. Due on due Goal Urinalysis. Due on 14 due Goal TD Vaccine. Due on 17 due Goal H&P. Due on due Goal Tdap. Due on due Goal Influenza Vaccine. Due on due Goal Sigmoidoscopy. Due on due Goal FOBT. Due on due Goal BMP fasting. Due on 014 due Goal Pap/HPV testing. Due on due Goal Mammogram. Due on 7 due Goal Tobacco cessation counseling completed Goal FOBT. Due on due Goal Urinalysis. Due on 14 due Goal Sigmoidoscopy. Due on due Goal Colonoscopy. Due on 016 due Goal Influenza Vaccine. Due on due Goal Mammogram. Due on 6 due Goal Tdap. Due on due Goal Pap/HPV testing. Due on due Goal TD Vaccine. Due on 16 due Goal Breast exam. Due on due Goal RENAL MEDICINE PHYSICIAN exam. Due on due Goal H&P. Due [...] Goal Mammogram. Due on 6 due Goal RENAL MEDICINE PHYSICIAN exam. Due on due Goal Pap/HPV testing. Due on due Goal Breast exam. Due on due Goal Sigmoidoscopy. Due on due Goal Urinalysis. Due on 14 due Goal RENAL MEDICINE PHYSICIAN exam. Due on due Goal H&P. Due on due Goal Influenza Vaccine. Due on due Goal Tdap. Due on due Goal Lipid Panel. Due on due Goal Colonoscopy. Due on 016 due Goal FOBT. Due on due Goal Mammogram. Due on 6 due Goal BMP fasting. Due on 014 due Goal TD Vaccine. Due on 16 due Goal Colonoscopy. Due on due Goal H&P. Due on due Goal TD Vaccine. Due on 16 due Goal FOBT. Due on due Goal Urinalysis. Due on 14 due Goal Pap/HPV testing. Due on due Goal Lipid Panel. Due on due Goal Breast exam. Due on due Goal Tdap. Due on due Goal Sigmoidoscopy. Due on due Goal Influenza Vaccine. Due on due Goal BMP fasting. Due on due Goal RENAL MEDICINE PHYSICIAN exam. Due on due Goal Mammogram. Due on 6 due Goal Urinalysis. Due on 14 due Goal Mammogram. Due on 6 due Goal FOBT. Due on due Goal Sigmoidoscopy. Due on due Goal Colonoscopy. Due on due Goal RENAL MEDICINE PHYSICIAN exam. Due on due Goal Influenza Vaccine. Due on due Goal Lipid Panel. Due on due Goal TD Vaccine. Due on 16 due Goal Tdap. Due on due Goal BMP fasting. Due on due Goal Breast exam. Due on due Goal Pap/HPV testing. Due on due Goal H&P. Due on due Goal Tdap. Due on due Goal Breast exam. Due on 016 due Goal Pap/HPV testing. Due on due Goal H&P. Due on due Goal FOBT. Due on due Goal Sigmoidoscopy. Due on due Goal RENAL MEDICINE PHYSICIAN exam. Due on due Goal TD Vaccine. Due on 16 due Goal Colonoscopy. Due on 016 due Goal Urinalysis. Due on 14 due Goal Lipid Panel. Due on 015 due Goal Influenza Vaccine. Due on due Goal BMP fasting. Due on 014 due Goal Mammogram. Due on 6 due Goal Lipid Panel. Due on 015 due Goal Breast exam. Due on 016 due Goal Urinalysis. Due on 14 due Goal FOBT. Due on due Goal Mammogram. Due on 6 due Goal Colonoscopy. Due on 016 due Goal TD Vaccine. Due on 16 due Goal RENAL MEDICINE PHYSICIAN exam. Due on due Goal BMP fasting. Due on 014 due Goal Sigmoidoscopy. Due on due Goal Influenza Vaccine. Due on due Goal H&P. Due on due Goal Tdap. Due on due Goal Pap/HPV testing. Due on due Goal Mammogram. Due on 6 due Goal RENAL MEDICINE PHYSICIAN exam. Due on due Goal H&P. Due on due Goal BMP fasting. Due on due Goal Pap/HPV testing. Due on due Goal Sigmoidoscopy. Due on due Goal Influenza Vaccine. Due on due Goal Tdap. Due on due Goal FOBT. Due on [...] Breast exam. Due on 016 due Goal Pap/HPV testing. Due on due Goal Tdap. Due on due Goal Lipid Panel. Due on due Goal Mammogram. Due on due Goal Influenza Vaccine. Due on due Goal RENAL MEDICINE PHYSICIAN exam. Due on due Goal TD Vaccine. Due on 16 due Goal RENAL MEDICINE PHYSICIAN exam. Due on due Goal Urinalysis. Due [...] Goal Pap/HPV testing. Due on due Goal RENAL MEDICINE PHYSICIAN exam. Due on due Goal Influenza Vaccine. Due on due Goal H&P. Due on due Goal FOBT. Due on due Goal TD Vaccine. Due on 16 due Goal Urinalysis. Due on 14 due Goal Mammogram. Due on due Goal BMP fasting. Due [...] Influenza Vaccine. Due on due Goal Depression scree nancy. Due on due Goal FOBT. Due on due Goal Sigmoidoscopy. Due on due Goal Lipid Panel. Due on due Goal Colonoscopy. Due on due Goal Mammogram. Due on 5 due Goal Urinalysis. Due on 14 due Goal BMP fasting. Due on 014 due Goal Tdap. Due on due Goal Pap/HPV testing. Due on due Goal RENAL MEDICINE PHYSICIAN exam. Due on due Goal Mammogram. Due on 5 due Goal Depression scree nancy. Due on due Goal TD Vaccine. Due on 15 due Goal FOBT. Due on due Goal Colonoscopy. Due on due Goal Pap/HPV testing. Due on due Goal Breast exam. Due on due Goal Lipid Panel. Due on due Goal H&P. Due on due Goal Influenza Vaccine. Due on due Goal Tdap. Due on due Goal BMP fasting. Due on due Goal RENAL MEDICINE PHYSICIAN exam. Due on due Goal Sigmoidoscopy. Due on due Goal Urinalysis. Due on 14 due Goal Tdap. Due on due Goal RENAL MEDICINE PHYSICIAN exam. Due on due Goal FOBT. Due [...] Lipid Panel. Due on due Goal Depression scree nancy. Due on due Goal RENAL MEDICINE PHYSICIAN exam. Due on due Goal Pap/HPV testing. Due on due Goal BMP fasting. Due on due Goal Urinalysis. Due on 14 due Goal Sigmoidoscopy. Due on due Goal Depression scree nancy. Due on due Goal TD Vaccine. Due on 15 due Goal Colonoscopy. Due on due Goal Breast exam. Due on 015 due Goal Tdap. Due on due Goal Influenza Vaccine. Due on due Goal H&P. Due on due Goal FOBT. Due on due Goal Mammogram. Due on 5 due Goal Lipid Panel. Due on due Goal Pap/HPV testing. Due on due Goal Tdap. Due on due Goal Sigmoidoscopy. Due on due Goal TD Vaccine. Due on 15 due Goal RENAL MEDICINE PHYSICIAN exam. Due on due Goal BMP fasting. Due on 014 due Goal H&P. Due on due Goal Mammogram. Due on 5 due Goal Depression scree nancy. Due on due Goal Urinalysis. Due on 14 due Goal Influenza Vaccine. Due on due Goal Colonoscopy. Due on due Goal Breast exam. Due on due Goal FOBT. Due on due Goal H&P. Due on due Goal Breast exam. Due on due Goal RENAL MEDICINE PHYSICIAN exam. Due on due Goal TD Vaccine. Due on 15 due Goal BMP fasting. Due on 014 due Goal Pap/HPV testing. Due on due Goal Influenza Vaccine. Due on due Goal Colonoscopy. Due on 015 due Goal FOBT. Due on due Goal Tdap. Due on due Goal Sigmoidoscopy. Due on due Goal Depression scree nancy. Due on due Goal Urinalysis. Due on 14 due Goal Mammogram. Due on 5 due Goal H&P. Due on due Goal Urinalysis. Due on 14 due Goal Influenza Vaccine. Due on due Goal BMP fasting. Due on 014 due Goal Sigmoidoscopy. Due on due Goal Breast exam. Due on due Goal Tdap. Due on due Goal RENAL MEDICINE PHYSICIAN exam. Due on due Goal Mammogram. Due on 5 due Goal Colonoscopy. Due on due Goal FOBT. Due on due Goal TD Vaccine. Due on 15 due Goal Pap/HPV testing. Due on due Goal Depression scree nancy. Due on due Goal Breast exam. Due on 015 due Goal Sigmoidoscopy. Due on due Goal FOBT. Due on due Goal Pap/HPV testing. Due on due Goal Depression scree nancy. Due on due Goal Urinalysis. Due on 14 due Goal Mammogram. Due on 5 due Goal H&P. Due on due Goal RENAL MEDICINE PHYSICIAN exam. Due on due Goal Tdap. Due on due Goal Colonoscopy. Due on due Goal Influenza Vaccine. Due on due Goal BMP fasting. Due on due Goal TD Vaccine. Due on 15 due Goal Colonoscopy. Due on due Goal TD Vaccine. Due on 15 due Goal H&P. Due on due Goal Influenza Vaccine. Due on due Goal Urinalysis. Due on 14 due Goal Depression scree nancy. Due on due Goal Tdap. Due on due Goal RENAL MEDICINE PHYSICIAN exam. Due on due Goal Pap/HPV testing. Due on due Goal Mammogram. Due on 5 due Goal FOBT. Due on due Goal Breast exam. Due on due Goal BMP fasting. Due on 014 due Goal Sigmoidoscopy. Due on due Goal Depression scree nancy. Due on due Goal Colonoscopy. Due on 015 due Goal Mammogram. Due on 5 due Goal TD Vaccine. Due on 15 due Goal H&P. Due on due Goal Breast exam. Due on 015 due Goal Urinalysis. Due on 14 due Goal FOBT. Due on due Goal Pap/HPV testing. Due on due Goal Tdap. Due on due Goal Sigmoidoscopy. Due on due Goal BMP fasting. Due on 014 due Goal Influenza Vaccine. Due on due Goal RENAL MEDICINE PHYSICIAN exam. Due on due Goal Tobacco cessation counseling completed Goal Tobacco cessation counseling completed Goal Tobacco cessation counseling completed Referral Ordered: Orthopedic Surgery (related to Carpal tunnel syndrome, left) ordered Referral Ordered: Gastroenterology (related to Gastrointestinal hemorrhage associated with gastric ulcer) ordered Referral Ordered: Neurology (related to Dizziness of unknown cause) ordered Referral Ordered: Referrals: Neurology ordered Referral Ordered: CT Neck Spine W/O Dye ordered Referral Ordered: CT Head/Brain W/O & W/Dye ordered Referral Ordered: ECG MONITOR/REPORT, 24 HRS Appointment date/timeframe: 08/16/2019 ordered Referral Ordered: Gastroenterology (related to GERD w/o esophagitis) ordered Referral Ordered: Referrals: Gastroenterology ordered Referral Ordered: US Exam, Breast(s) Left Appointment date/timeframe: 08/02/2019 ordered Referral Ordered: BREAST ULTRASOUND GUIDED BIOPSY Left ordered Referral Ordered: US EXAM, PELVIC, COMPLETE Appointment date/timeframe: 01/04/2019 ordered Referral Ordered: US Exam, Breast(s) Appointment date/timeframe: 01/04/2019 ordered Referral Ordered: Referrals: Surgery Appointment date/timeframe: 01/17/2019 ordered Referral Ordered: DX MAMMO INCL CAD BI Appointment date/timeframe: 01/04/2019 ordered Referral Ordered: COLONOSCOPY AND BIOPSY ordered Referral Referred To: Physical Therapy Ordered: Referrals: Physical Therapy. 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 [facility]. Location: CARDI[facility] CATH TECHNICIAN. Consult Appointment date/timeframe: 09/03/2017 ordered Referral Ordered: Orthopedic Surgery (related to Cervicalgia) ordered Referral Ordered: X-Ray Exam Of Knee 3 Views Bilateral ordered Referral Ordered: Otolaryngology (related to Vertigo) ordered Referral Ordered: Referrals: Otolaryngology ordered Referral Ordered: Orthopedic Surgery (related to Pain in left shoulder) ordered Referral Ordered: Referrals: Orthopedic Surgery. Evaluate and treat Appointment date/timeframe: 10/15/2015 ordered Referral Ordered: Orthopedic Surgery (related to Cervicalgia) ordered Referral Ordered: Orthopedic Surgery (related to Spinal stenosis in cervical region) ordered Referral Ordered: Orthopedic Surgery (related to Trigger finger) ordered Referral Ordered: Referrals: Orthopedic Surgery ordered Referral Ordered: referred to Clinical Nurse Specialist [employer] today (related to Attention to colostomy) ordered Referral Ordered: Urology. ordered Future Order: Lab Order GLYCOSYL ATED HEMOGLOBIN TEST ([id number]), Collected on: , Sent on: Sent Future Order: Lab Order Complian ce Drug Analysis, Ur ([id number]), Collected on: , Sent on: Sent Future Order: Lab Order Urine, N aloxone Urine Cofirm ([id number]), Collected on: , Sent on: Sent History Of Present Illness Encounter Date Complaint History Of Prese nt Illness med refills pt. here for med refills and labs reviewed from a couple weeks ago. Bronchitis acting up-been coughing up cloudy (phlegm). Cough is a little better, but I still have coughing fits now and then still. Denies other problems.Carmen Centeno RN ,above was reviewed and agreed with [facility] lab draw Pt here for lab draw. [...] Lyrica 08/11, Ativan 08/05, Flexeril 07/29 & Wilcox 07/26TGrodi [employer] fatigue This is an initi al visit. [...] completed, last filled Lorazepam 06/06, Lyrica 06/06, Wilcox 06/05TGrodi [facility] Med Refills Pt here today fo r medication refills. PT states she fell Thursday and her L hand is swollen. Denies any pain. OARRS completed, last filled Wilcox, Ativan & Lyrica 05/08TGrodi [facility] Musculoskeletal pain Onset: sudd en. It occurs [...] Ativan, 02/13, Lyrica 02/13, & norco 02/06TGrodi [employer] W[employer] fatigue This is an initi al visit. [...] Ativan 12/19, Lyrica 12/17, Flexeril 12/02 & Wilcox 11/20TGrodi LPNPt states she is just tired, pt son who she lives with has his son that is 3 months old and not sleeping thought the [facility] Med Refills Pt here today fo [...] work. OARRS completed, last filled Ativan 10/23, Wilcox 10/31 & Flexeril 10/31TGrodi [employer] GERD The severity of the problem is [...] refills. OARRS completed, last filled Ativan 09/25, Wilcox & Flexeril 09/05TGrodi [employer] diabetes The problem is s table. Risk [...] OARRS completed, last filled Ativan 08/26 & Wilcox 08/08TGrodi [employer] Med Refills Pt here today fo r medication refills. We discussed Pt getting tested genes for coronary artery disease and what pt should do about it otherwise pt is doing well. OARRS completed, last filled Ativan 07/22, Flexeril 07/15, Wilcox 07/11 & Lyrica 07/01TGrodi [employer] fatigue This is an initi al visit. [...] completed, last filled Lyrica & Ativan 05/27, Wilcox 05/18, & Ambien 05/14TGrodi [employer] diabetes The problem is s table. Risk [...] completed, last filled Ativan 04/28, Lyrica 04/28, Wilcox 04/16TGrodi [employer] GERD The severity of the problem is [...] back pain and dizziness, states that the Wilcox is no longer helping the pain. Pt [...] 03/10, Ativan, Ambien & Lyrica 03/02, & Wilcox 03/01TGrodi [employer] W[employer]ER Anxiety This is a follow up visit. [...] and unilateral leg edema. UDS UDS+ BZO SRowe R N f/u med refills Pt here [...] swelling, redness and pain. Pt states the Wilcox helps with the pain but she is worried about infection. Pt denies any other problems or concerns.Pt requesting refills of Wilcox 5mg last filled 11/07 and Ativan 0.5mg [...] completed, last filled Lyrica 10/27, Flexeril 10/27, Wilcox & Ativan 09/27TGjoyce HOPPER Rash The patient pres ents for Rash. [...] provide oral swab. OARRS completed, last filled Wilcox 09/27, Ativan 09/27 & Lyrica [facility]. [facility] urine drug screen performed, pt + for NOTHING ALL NEGATIVE. Asked patient when she last took her medication and she stated she last took Ativan yesterday & Wilcox 4 days ago. TGrodi [facility] Med refills Pt here today fo r [...] last filled Flexeril 09/19 & 09/08, Lyrica, Wilcox & [facility]ivan [facility] Onset was sudden . The duration [...] if she needs a refill on her Wilcox and she said, yeah might as well . I asked patient to provide a urine today and she said she can not pee. OARRS completed, last filled Flexeril 08/26, Ativan 08/03, & Wilcox 08/03TGrodi [employer] Dizziness Onset was sudden . Severity is [...] Flexeril 07/15, Lyrica 06/29, Ativan 06/22 & Wilcox 06/22rodi [facility] DRUG SCREEN Pt could not uri ion for a UDS. Pt had blood drawn. First attempt successful in R antecubital. Pt tolerated well. [facility] Pt here today fo [...] filled Flexeril 05/27 & 06/09, Lyrica 05/25, Wilcox & Ativan 05/11TGrod LPNPt states that beside the no energy she feels ok drug screen Pt could no go t o the bathroom so did a blood draw for a drug screen. First attempt successful in R antecubital. Pt tolerated well no issues or concerns. [facility] follow up Pt here today fo r a follow up & medication refills. Pt states she had her INR drawn today and it was 1.9OARRS completed, last filled Flexeril 04/30, Lyrica 04/25, Ativan 04/13, & Wilcox 03/11TGrodi [facility] hypertension Comorbid conditi ons include diabetes mellitus. [...] injured previously. OARRS completed, last filled Ativan. Stephania HOPPER DRUG SCREEN Tried to get a u rine from patient and she could not go so we did a blood draw. First attempt in R antecubital successful. 1 tube of blood taken, Pt tolerated well, no issues/concerns. Stephania HOPPER med refill Pt here today fo r Seroquel refill. She was on the 50 mg tablet 1 at bedtime. Pt had to come in because this medication was not in her active medication list. PT ALSO NEEDS REFILL ON METFORMINNo other issues/concerns. Stephania CLEMENTSNPt states she is doing well she just [...] completed, last filled Lyrica 02/16, Ativan, & Wilcox /Grodi LPNASKED PATIENT IF SHE COULD PROVIDE A URINE AND SHE SAID NOT RIGHT NOW. SHE WILL NEED TO PROVIDE A URINE OR GET A BLOOD DRAW. ,above was reviewed and agreed with Medication refills Patient here for Medication refills. Patient is requesting refills on Wellbutrin, Ativan and Wilcox. A1C completed today. No other issues at this time. Also patient did agree to reschedule breast biopsy. Patent was advised to stop blood thinners for 5 days. Patient is scheduled 02/09/19 at 10am at the [facility]. OARRS completed. last [...] well. She states she does not need Wilcox cause she still has some. OARRS completed, last filled, Ativan 12/22 for 15 day supply, Wilcox & Lyrica 12/22TGrodi LPNPt states she get [...] this needs discussed. OARRS completed, last filled Wilcox, Ativan, 11/05, Lyrica 11/11 & got Percocet from the ER on 11/22.TGjoyce STARRNPt states he has not appetite abdomen issues [...] is only here for abdominal issues today. JEFFERSON Shannon rib pain when breathing Patient is here [...] . ER also said she had A-Fib. JEFFERSON Shannon med refill Pt here for medi cation refill on Wilcox and Ativan. Pt. c/o back pain 08/11. [...] syrup cough drops, tylenol. Sandra Guthrie RN. [place]: Finished ten day s if Keflex. Coughing [...] called. Jose Margarito: Coughing for 1 w chipewwa. No hemoptysis or shortness of breath or chest pain. Has a nebulizer at home. [place]: States she was t aking Gabapentin for [...] would like 90 days supply if possible. [facility] follow up Patient [...] the coumadin clinic and Coreg managed by [facility] Dr. Rodriguez. Patient needs a release [...] She no longer is going to Dr. lAbarran because she feels he was not listening to her. She is looking into another psych provider in [place]. RUCHI Figueroa knee pain Location: knee. Additional information: Pt still having right knee pain. medication refill Patient reques ting refill of Mobic and Oxycodone. Patient uses the Oxycodone for neck pain, pain rate at time of visit 04/11. Abel HOPPER restless leg syndrome Symptoms p redominantly [...] april to see new psych doctor in [place]. Patient has no other issues at this [...] are due for refill. She went to [facility] on 10/15/15 and starts PT on 11/07/15. [...] unable to go with colostomy problems.- Thu [facility] refills Staple removal Patient here for [...] Metoprolol, & Clopidogel. Oscar Arias dyspnea Pt. [facility] was i [facility] in for emergency colectomy. While inpt. was using nebulizers. Was not given Rx at time of d/c and has been using sister's neb at home with relief of dyspnea. Neb meds currently using are Albuterol and Ipratropium [place] 2 - 3 times/day. Hayden Casas R.N. med f/u Client here to f /u on meds. Also [facility] has a rash around her stoma. [facility] has [facility] for [facility]21-14. Oscar Arias Functional Status Date Functional Assessmen t No Information Instructions Date Instruction Additional Infor mation Giving encouragement to exercise Related to Body mass index [BMI] 36.0-36.9, adult Dietary needs education Related to Body mass [...] month Related to Pelvic pain in female Cervical cultures se nt to lab. Patient to call in 1 week for results Related to Encounter for sexually transmitted disease screening Encouraged monthly B SE. Recommend calcium 1000mg QD. Encouraged good dietary intake and exercise. Laboratory specimens sent to lab. Patient to call in 2 weeks if desires results. 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
--- OUTSIDE RECORDS SUMMARY | 2023-05-28 09:36 | XMS_ITS | Continuity of Care Document ---
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 Name Role Phone Paolo Olivo Unavailable Unavailable [...] Limited Oral Eval Intraoral-periapical 1st Film 4 [id number] Additional Jan [facility] FP MEDICAID Condoms FLU VACCINE, 3 YRS & >, IM NEW FP MEDICAID URINALYSIS, NONAUTO W/SCOPE SPECIMEN HANDLING FLU VACCINE, 3 YRS & >, IM Advance Directives Directive Yes / No Effective Date File Name No Information Encounters Encounter Description Practice Location Reason(s) For Visit Diagnoses Date Provider Providers Copied on Encounter [facility], [address] [place] [address], [id number] , [place] tel:[phone] [facility] No Information 3 Visci DO Paolo. [address] [place] [address], [id number], [place]. tel:[phone] OFFICE/OUTPA TIENT VISIT, EST [facility], [address] [place] [address], [id number] , tel:[phone] [facility] med refills (chief complaint) Body mass index [BMI] 36.0-36.9, adultCOPD w/ acute exacerbationLow back pain, unspecified 1 [facility] Max[facility] [address], [place], [id number], [place]. tel:[phone] [facility], [address], [place], [id number] , [place] tel:[phone] [facility] lab draw (chief complaint) Chronic obstructive pulmonary disease, unspecified 1 [facility] DO Max. [address], [place], [id number], [place]. tel:[phone] OFFICE/OUTPA TIENT VISIT, [facility], [address] [place] [address], [id number] , [place] tel: [phone] [facility] Med Refills (chief complaint)fa tigue (chief complaint) Body mass index [BMI] 36.0-36.9, adultAnxiety disorder, unspecifiedChron ic obstructive pulmonary disease, unspecifiedCOPD w/ acute exacerbationIron deficiency anemia due to chronic blood lossType 2 diabetes mellitus without complications 1 [facility] DO [facility]. [address] [place] [address], [id number], [place]. tel:[phone] OFFICE/OUTPA TIENT VISIT, [facility], [address] [place] [address], [id number] , [place] tel:[phone] [facility] med refill (chief complaint) Body mass index [BMI] 36.0-36.9, adultCarpal tunnel syndrome, leftCervicalgiaM yash problem Sep- 1 [facility] DO Max. [address] [place] [address], [id number], [place]. tel:[phone] OFFICE/OUTPA TIENT VISIT, [facility], [address] [place] [address], [id number] , [place] tel:[phone] [facility] A1C & Med Refills (chief complaint)di abetes (chief complaint) Body mass index [BMI] 36.0-36.9, adultType 2 diabetes mellitus with hyperglycemiaAnx iety disorder, unspecifiedCervi calgia 1 [facility] [address], [place], [id number], [place]. tel:[phone] OFFICE/OUTPA TIENT VISIT, [facility], [address], [place], [id number] , [place] tel: [phone] [facility] Med Refills (chief complaint)Mu sculoskeleta l pain (chief complaint) Anxiety disorder, unspecifiedCervi calgiaUnspecifie d sprain of left wrist, initial encounterBody mass index [BMI] 36.0-36.9, adult 1 [facility]. [address] [place] [address], [id number], [place]. tel:[phone] OFFICE/OUTPA TIENT VISIT, [facility], [address] [place] [address], [id number] , [place] tel: [phone] [facility] med refill (chief complaint)fa tigue (chief complaint) Body mass index [BMI] 36.0-36.9, adultType 2 diabetes mellitus with other circulatory complicationsAnx iety disorder, unspecified 1 [facility]. [address] [place] [address], [id number], [place]. tel:[phone] OFFICE/OUTPA TIENT VISIT, [facility], [address], [place], [id number] , [place] tel: [phone] [facility] med refill (chief complaint)Me curt loss (chief complaint) Type 2 diabetes mellitus with other circulatory complicationsBod y mass index [BMI] 35.0-35.9, adultAnxiety disorder, unspecifiedUrina ry frequencyMemory problem 1 [facility] [address] [place] [address], [id number], [place]. tel:[phone] OFFICE/OUTPA TIENT VISIT, [facility], [address] [place] [address], [id number] , [place] tel: [phone] [facility] med Refills (chief complaint)fa tigue (chief complaint) Body mass index [BMI] 35.0-35.9, adultAnemia, unspecified typeEssential (primary) hypertensionIron deficiency anemia due to chronic blood loss 0 1 [facility] DO Max. [address] [place] [address], [id number], [place]. tel:[phone] OFFICE/OUTPA TIENT VISIT, [facility], [address] [place] [address], [id number] , [place] tel: [phone] [facility] med refill (chief complaint)Co ugh (chief complaint) Chronic obstructive pulmonary disease, unspecifiedAnxie ty disorder, unspecifiedOther cervical disc degeneration, unspecified cervical region 0 1 [facility] DO Max. [address] [place] [address], [id number], [place]. tel:[phone] OFFICE/OUTPA TIENT VISIT, [facility], [address] [place] [address], [id number] , [place] tel: [phone] [facility] A1C (chief complaint)di abetes (chief complaint) Type 2 diabetes mellitus with other circulatory complicationsAnx iety disorder, unspecifiedLumba r back pain 0 1 [facility] DO Max. [address] [place] [address], [id number], [place]. tel:[phone] OFFICE/OUTPA TIENT VISIT, [facility], [address] [place] [address], [id number] , [place] tel: [phone] [facility] Med Refills (chief complaint)GE RD (chief complaint) Body mass index [BMI] 34.0-34.9, adultChronic pulmonary embolismGastroin testinal hemorrhage associated with gastric ulcerType 2 diabetes mellitus with hyperglycemiaOth er cervical disc degeneration, unspecified cervical region 1 [facility] DO Max. [address] [place] [address], [id number], [place]. tel:[phone] OFFICE/OUTPA TIENT VISIT, [facility], [address], [place], [id number] , [place] tel: [phone] [facility] med refill (chief complaint) Carpal tunnel syndrome of right wristAnxiety disorder, unspecifiedCervi calgia 3 0-202 0 [facility] DO Max. [address], [place], [id number], [place]. tel:[phone] OFFICE/OUTPA TIENT VISIT, [facility], [address], [place], [id number] , [place] tel: [phone] [facility] Med Refills (chief complaint)ba ck pain (chief complaint) Body mass index [BMI] 32.0-32.9, adultOther cervical disc degeneration, unspecified cervical regionAnxiety disorder, unspecifiedCOPD w/ acute exacerbation 2- 0 [facility] DO Max. [address] [place] [address], [id number], [place]. tel:[phone] OFFICE/OUTPA TIENT VISIT, [facility], [address] [place] [address], [id number] , [place] tel: [phone] [facility] A1C & Med Refills (chief complaint)di abetes (chief complaint) Body mass index [BMI] 32.0-32.9, adultType 2 diabetes mellitus without complicationsAnx iety disorder, unspecifiedOther cervical disc degeneration, unspecified cervical region 4 0 [facility] DO Max. [address] [place] [address], [id number], [place]. tel:[phone] OFFICE/OUTPA TIENT VISIT, [facility], [address] [place] [address], [id number] , [place] tel: [phone] [facility] Med Refills (chief complaint) Body mass index [BMI] 32.0-32.9, adultAnxiety disorder, unspecifiedFolli culitisCervicalg ia Aug- 7-202 0 [facility] DO Max. [address] [place] [address], [id number], [place]. tel:[phone] OFFICE/OUTPA TIENT VISIT, [facility], [address] [place] [address], [id number] , [place] tel: [phone] [facility] f/u hospital (chief complaint)fa tigue (chief complaint) Gastrointestinal hemorrhage associated with gastric ulcerIron deficiency anemia due to chronic blood lossAnxiety disorder, unspecified Jul- 0 [facility] DO Max. [address] [place] [address], [id number], [place]. tel:[phone] OFFICE/OUTPA TIENT VISIT, [facility], [address] [place] [address], [id number] , [place] tel: [phone] [facility] A1C & MED REFILLS (chief complaint)Di zziness (chief complaint)di abetes (chief complaint) Body mass index (BMI) 32.0-32.9, adultType 2 diabetes mellitus without complicationsDiz ziness of unknown cause 0 [facility] [address] [place] [address], [id number], [place]. tel:[phone] OFFICE/OUTPA TIENT VISIT, [facility], [address] [place] [address], [id number] , [place] tel: [phone] [facility] Med Refills (chief complaint)GE RD (chief complaint) Anxiety disorder, unspecifiedDizzi ness of unknown causeGERD w/o esophagitis 0 [facility] DO Max. [address] [place] [address], [id number], [place]. tel:[phone] OFFICE/OUTPA TIENT VISIT, [facility], [address] [place] [address], [id number] , [place] tel: [phone] [facility] med refills (chief complaint)ba ck pain (chief complaint) Body mass index (BMI) 32.0-32.9, adultLumbar back painType 2 diabetes mellitus without complicationsDiz ziness of unknown causeAnxiety disorder, unspecified 0 [facility] DO Max. [address], [place], [id number], [place]. tel:[phone] OFFICE/OUTPA TIENT VISIT, [facility], [address], [place], [id number] , [place] tel: [phone] [facility] A1C & Med refills (chief complaint)An xiety (chief complaint) Body mass index (BMI) 32.0-32.9, adultType 2 diabetes mellitus without complicationsAnx iety disorder, unspecifiedOther cervical disc degeneration, unspecified cervical regionFolliculit isEssential (primary) hypertension 0 [facility] DO Max. [address], [place], [id number], [place]. [phone] OFFICE/OUTPA TIENT VISIT, [facility], [address] [place] [address], [id number] , [place] tel: [phone] [facility] Anxiety (chief complaint) Anxiety disorder, unspecified 0 [facility] DO Max. [address], [place], [id number], [place]. 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 [address], [place], [id number], [place]. tel:[phone] OFFICE/OUTPA TIENT VISIT, [facility], [address], [place], [id number] , [place] tel: [phone] [facility] finger infection (chief complaint)Ra sh (chief complaint) Body mass index (BMI) 32.0-32.9, adultHerpetic whitlowEssential (primary) hypertensionAnxi ety disorder, unspecifiedDizzi ness of unknown cause 0 [facility] DO Max. [address], [place], [id number], [place]. tel:[phone] OFFICE/OUTPA TIENT VISIT, [facility], [address], [place], [id number] , [place] tel: [phone] [facility] Med Refills & A1C (chief complaint)Ra sh (chief complaint) Type 2 diabetes mellitus without complicationsAnx iety disorder, unspecifiedChron ic obstructive pulmonary disease, unspecified 0 [facility] DO Max. [address] [place] [address], [id number], [place]. tel:[phone] [facility], [address] [place] [address], [id number] , [place] tel: [phone] [facility] RANDOM UDS/PILL COUNT (chief complaint) No Information 9 [facility] DO Max. [address] [place] [address], [id number], [place]. tel:[phone] OFFICE/OUTPA TIENT VISIT, [facility], [address] [place] [address], [id number] , [place] tel: [phone] [facility] Med refills (chief complaint)DR WHITLEY DANG (chief complaint) Body mass index (BMI) 32.0-32.9, adultAnxiety disorder, unspecifiedKidne y painDizziness of unknown cause 9 [facility] DO Max. [address] [place] [address], [id number], [place]. tel:[phone] OFFICE/OUTPA TIENT VISIT, [facility], [address] [place] [address], [id number] , [place] tel:[phone] [facility] 4 WEEK F/U (chief complaint)Di zziness (chief complaint) Body mass index (BMI) 31.0-31.9, adultDizziness of unknown causeLumbar back painType 2 diabetes mellitus with hyperglycemia 9 [facility]. [address] [place] [address], [id number], [place]. tel:[phone] OFFICE/OUTPA TIENT VISIT, [facility], [address] [place] [address], [id number] , [place] tel: [phone] [facility] Med refills & A1C (chief complaint)Di zziness (chief complaint) Body mass index (BMI) 31.0-31.9, adultDizziness of unknown causeAnxiety disorder, unspecifiedType 2 diabetes mellitus with hyperglycemia [address], [id number], [place]. tel:[phone] OFFICE/OUTPA TIENT VISIT, [facility], [address] [place] [address], [id number] , [place] tel: [phone] [facility] 6 WK F/U (chief complaint)DR IGNACIO SCREEN (chief complaint) Pain in leg, unspecifiedBody mass index (BMI) 31.0-31.9, adultAnxiety disorder, unspecifiedChron ic pulmonary embolism [address], [id number], [place]. tel:[phone] OFFICE/OUTPA TIENT VISIT, [facility], [address] [place] [address], [id number] , [place] tel: [phone] [facility] follow up (chief complaint)hy pertension (chief complaint)dr ignacio screen (chief complaint) Body mass index (BMI) 31.0-31.9, adultEncntr for general adult medical exam w/o abnormal findingsEssentia l (primary) hypertensionType 2 diabetes mellitus without complicationsAnx iety disorder, unspecified 9 [facility]. [address] [place] [address], [id number], [place]. tel:[phone] OFFICE/OUTPA TIENT VISIT, [facility], [address], [place], [id number] , [place] tel: [phone] [facility] F/U HOSPITAL ADMITION (chief complaint)DR WHITLEY DANG (chief complaint) Body mass index (BMI) 31.0-31.9, adultAnxiety disorder, unspecifiedGERD w/o esophagitisHerpe tic shashi 9 [facility]. [address] [place] [address], [id number], [place]. tel:[phone] OFFICE/OUTPA TIENT VISIT, [facility], [address], [place], [id number] , [place] tel: [phone] [facility] med refill (chief complaint) Body mass index (BMI) 31.0-31.9, adultAnxiety disorder, unspecifiedType 2 diabetes mellitus without complications 9 [facility]. [address] [place] [address], [id number], [place]. tel:[phone] [facility], [address] [place] [address], [id number] , [place] tel: [phone] [facility] med refills (chief complaint) Body mass index (BMI) 31.0-31.9, adultCellulitis and abscess of finger, unspecifiedCutan eous abscess of unspecified handBipolar disorder 9 [facility]. [address], [place], [id number], [place]. tel:[phone] [facility], [address] [place] [address], [id number] , [place] tel: [phone] [facility] Abnormal Mammogram 9 [facility] Beatris. [address] [place] [address], [id number], [place]. tel:[phone] [facility], [address] [place] [address], [id number] , [place] tel: [phone] [facility] Medication refills (chief complaint)A1 C (chief complaint) Body mass index (BMI) 31.0-31.9, adultType 2 diabetes mellitus without complicationsLum barrel cooper pain Jan- 9 [facility]. [address], [place], [id number], [place]. tel:[phone] [facility], [address] [place] [address], [id number] , [place] tel: [phone] [facility] Abnormal Mammogram Jan- 9 [facility]. [address] [place] [address], [id number], [place]. tel:[phone] OFFICE/OUTPA TIENT VISIT, EST [facility], [address] [place] [address], [id number] , [place] tel: [phone] [facility] sickness (chief complaint) Body mass index (BMI) 31.0-31.9, adultAcute non-recurrent maxillary sinusitisCOPD w/ acute exacerbationAnxi ety disorder, unspecifiedOther cervical disc degeneration, unspecified cervical region Dec- 9 [facility]. [address], [place], [id number], [place]. tel:[phone] [facility], [address] [place] [address], [id number] , [place] tel: [phone] [facility] Abnormal MammogramUnspeci fied urinary incontinence 9 [facility]. [address] [place] [address], [id number], [place]. 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 [address], [place], [id number], [place]. tel:[phone] [facility], [address], [place], [id number] , [place] tel: [phone] [facility] f/u abdominal pain (chief complaint) Body mass index (BMI) 32.0-32.9, adultHx pulmonary embolismHernia of abdominal wallAnxiety disorder, unspecified 9 [facility] DO Max. [address], [place], [id number], [place]. tel:[phone] [facility], [address] [place] [address], [id number] , [place] tel: [phone] [facility] abdomen issues (chief complaint) Right lower quadrant abdominal painEncounter for screening for Ca of colon 9 Kamaljit Wilcox. [address] [place] [address], [id number], [place]. tel:[phone] OFFICE/OUTPA TIENT VISIT, EST [facility], [address], [place], [id number] , [place] tel: [phone] [facility] rib pain when breathing (chief complaint) Body mass index (BMI) 31.0-31.9, adultRib pain on right sideLumbar back painRight hip pain 9 Kamaljit Wilcox. [address] [place] [address], [id number], [place]. tel:[phone] [facility], [address] [place] [address], [id number] , [place] tel:[phone] [facility] med refill (chief complaint) Right hip painLumbar back painAnxiety disorder, unspecified 9 Kamaljit Wilcox. [address] [place] [address], [id number], [place]. tel:[phone] OFFICE/OUTPA TIENT VISIT, [facility], [address] [place] [address], [id number] , [place] tel: [phone] [facility] bladder infection (chief complaint) Oliguria 8 Shahzad Cobb. [address] [place] [address], [id number], [place]. tel:[phone] OFFICE/OUTPA TIENT VISIT, [facility], [address] [place] [address], [id number] , [place] tel: [phone] [facility] Medication refill (chief complaint) Anxiety disorder, unspecifiedBipol ar disorderVertigo 8 Shahzad Cobb. [address] [place] [address], [id number], [place]. tel:[phone] [facility], [address] [place] [address], [id number] , [place] tel: [phone] [facility] medication refill (chief complaint)br onchitis (chief complaint)De nnison: (chief complaint) Chronic obstructive pulmonary disease, unspecifiedCough Type 2 diabetes mellitus without complicationsEss ential (primary) hypertension 8 Margarito Horne. [address] [place] [address], [id number], [place]. tel:[phone] [facility], [address] [place] [address], [id number] , [place] tel: [phone] [facility] sick (chief complaint)me d refill (chief complaint)dE NNISON: (chief complaint) CoughChronic obstructive pulmonary disease, unspecifiedType 2 diabetes mellitus without complicationsEss ential (primary) hypertension 8 Margarito Horne. [address] [place] [address], [id number], [place]. tel:[phone] [facility], [address] [place] [address], [id number] , [place] tel: [phone] [facility] med refill (chief complaint)De nnison: (chief complaint) Focal (segmental) acute (reversible) ischemia of small intestineAnxiety disorder, unspecifiedBipol ar disorderChronic obstructive pulmonary disease, unspecifiedType 2 diabetes mellitus without complicationsNic otine dependence, unspecified, uncomplicatedEss ential (primary) hypertension 8 Margarito Horne. [address] [place] [address], [id number], . tel:[phone] [facility], [address] [place] [address], [id number] , [place] tel: [phone] [facility] med refills (chief complaint)Le ft thight (chief complaint) Meralgia paresthetica, left lower limbAnxiety disorder, unspecifiedBipol ar disorder 7 Shahzad Cobb. [address] [place] [address], [id number], . tel:[phone] OFFICE/OUTPA TIENT VISIT, [facility], [address] [place] [address], [id number] , [place] tel: [phone] [facility] R thigh pain (chief complaint)di scuss medication (chief complaint) Anxiety disorder, unspecifiedBipol ar disorderMeralgia paresthetica, left lower limb 7 Shahzad Cobb. [address] [place] [address], [id number], [place]. tel:[phone] [facility], [address] [place] [address], [id number] , [place] tel: [phone] [facility] HgbA1C (chief complaint)me dication refill (chief complaint) Anxiety disorder, unspecifiedBipol ar disorderCervical giaOther cervical disc degeneration, unspecified cervical regionSpinal stenosis, cervical regionPain in left shoulderType 2 diabetes mellitus with hyperglycemiaGER D w/o esophagitis 7 Shahzad Cobb. [address] [place] [address], [id number], [place]. tel:[phone] OFFICE/OUTPA TIENT VISIT, [facility], [address], [place], [id number] , [place] tel: [phone] [facility] follow up (chief complaint) Chronic pulmonary embolismCervical giaOther cervical disc degeneration, unspecified cervical regionSpinal stenosis, cervical region 7 Shahzad Cobb. [address] [place] [address], [id number], [place]. tel:[phone] OFFICE/OUTPA TIENT VISIT, [facility], [address], [place], [id number] , [place] tel: [phone] [facility] L arm/shoulder pain (chief complaint) CervicalgiaOther cervical disc degeneration, unspecified cervical regionSpinal stenosis, cervical region 6 Shahzad Cobb. [address] [place] [address], [id number], [place]. tel:[phone] OFFICE/OUTPA TIENT VISIT, [facility], [address], [place], [id number] , [place] tel: [phone] [facility] severe leg pain (chief complaint) Restless leg syndromePain in leg, unspecifiedType 2 diabetes mellitus with hyperglycemiaSpi nal stenosis, cervical region 6 Shahzad Cobb. [address] [place] [address], [id number], [place]. tel:[phone] OFFICE/OUTPA TIENT VISIT, [facility], [address], [place], [id number] , [place] tel: [phone] [facility] knee pain (chief complaint) Pain in kneeRestless leg syndrome 6 Shahzad Cobb. [address] [place] [address], [id number], [place]. tel:[phone] [facility], [address] [place] [address], [id number] , [place] tel: [phone] [facility] spasms on right side (chief complaint) Muscle spasm of backCervicalgiaO ther cervical disc degeneration, unspecified cervical regionSpinal stenosis, cervical region 6 Shahzad Cobb. [address] [place] [address], [id number], [place]. tel:[phone] OFFICE/OUTPA TIENT VISIT, [facility], [address], [place], [id number] , [place] tel: [phone] [facility] med refill (chief complaint) Type 2 diabetes mellitus with hyperglycemiaCer vicalgiaOther cervical disc degeneration, unspecified cervical regionSpinal stenosis, cervical region 6 Shahzad Cobb. [address] [place] [address], [id number], [place]. tel:[phone] [facility], [address] [place] [address], [id number] , [place] tel: [phone] [facility] Vertigo 6 Shahzad Cobb. [address] [place], [place] [address], [id number], [place]. tel:[phone] OFFICE/OUTPA TIENT VISIT, [facility], [address] [place] [address], [id number] , [place] tel: [phone] [facility] medication refill (chief complaint)kn ee pain (chief complaint) Bipolar disorder 6 Shahzad Cobb. [address] [place] [address], [id number], [place]. tel:[phone] OFFICE/OUTPA TIENT VISIT, [facility], [address] [place] [address], [id number] , [place] tel: [phone] [facility] medication refill (chief complaint)re stless leg syndrome (chief complaint) Restless leg syndromeCervical giaOther cervical disc degeneration, unspecified cervical regionSpinal stenosis, cervical region 6 Shahzad Cobb. [address] [place] [address], [id number], [place]. tel: [phone] OFFICE/OUTPA TIENT VISIT, [facility], [address], [place], [id number] , [place] tel: [phone] [facility] medication refills (chief complaint) Bipolar disorderAnxiety disorder, unspecified 0 6 Shahzad Cobb. [address], [place], [id number], [place]. [phone] OFFICE/OUTPA TIENT VISIT, [facility], [address], [place], [id number] , [place] tel: [phone] [facility] medication refill (chief complaint) CervicalgiaOther cervical disc degeneration, unspecified cervical regionSpinal stenosis, cervical regionVertigo 6 Shahzad Cobb. [address] [place] [address], [id number], [place]. tel:[phone] OFFICE/OUTPA TIENT VISIT, [facility], [address], [place], [id number] , [place] tel: [phone] [facility] cough (chief complaint)me d refill (chief complaint) Type 2 diabetes mellitus with hyperglycemiaCOP D w/ acute exacerbationCerv icalgiaOther cervical disc degeneration, unspecified cervical regionSpinal stenosis, cervical region 6 Shahzad Cobb. [address] [place] [address], [id number], [place]. tel:[phone] OFFICE/OUTPA TIENT VISIT, [facility], [address], [place], [id number] , [place] tel: [phone] [facility] pain (chief complaint) CervicalgiaPain in left shoulder 5 Shahzad Cobb. [address] [place] [address], [id number], [place]. tel:[phone] OFFICE/OUTPA TIENT VISIT, [facility], [address] [place] [address], [id number] , [place] tel:[phone] [facility] cold (chief complaint) COPD w/ acute exacerbationCerv icalgiaOther cervical disc degeneration, unspecified cervical region Aug- 5 Shahzad Cobb. [address] [place] [address], [id number], [place]. tel:[phone] OFFICE/OUTPA TIENT VISIT, [facility], [address] [place] [address], [id number] , [place] tel: [phone] [facility] med refill (chief complaint) CervicalgiaDegen eration of cervical intervertebral discSpinal stenosis in cervical regionColostomy status 5 Shahzad Cobb. [address] [place] [address], [id number], [place]. tel:[phone] OFFICE/OUTPA TIENT VISIT, [facility], [address] [place] [address], [id number] , [place] tel: [phone] [facility] Medcation refills (chief complaint)St aple removal (chief complaint) AnxietyColostomy status 5 Shahzad Cobb. [address] [place] [address], [id number], [place]. [phone] OFFICE/OUTPA TIENT VISIT, [facility], [address] [place] [address], [id number] , [place] tel: [phone] [facility] med refill (chief complaint) Acute mesenteric ischemiaColostom y statusTrigger finger Apr- 5 Shahzad Cobb. [address] [place] [address], [id number], [place]. tel:[phone] OFFICE/OUTPA TIENT VISIT, [facility], [address] [place] [address], [id number] , [place] tel:[phone] [facility] Med refill (chief complaint) Abdomen painAttention to colostomyColosto my status 5 Shahzad Cobb. [address], [place], [id number], [place]. tel:[phone] OFFICE/OUTPA TIENT VISIT, [facility], [address], [place], [id number] , [place] tel: [phone] [facility] medication refill (chief complaint) Spinal stenosis in cervical regionColostomy status 5 Shahzad Cobb. [address], [place], [id number], [place]. tel:[phone] OFFICE/OUTPA TIENT VISIT, [facility], [address], [place], [id number] , [place] tel: [phone] [facility] med refill (chief complaint) Colostomy statusAbdomen painAcute bronchitis 5 Nanda Wilcox. [address] [place] [address], [id number], [place]. tel:[phone] OFFICE/OUTPA TIENT VISIT, [facility], [address], [place], [id number] , [place] tel: [phone] [facility] dyspnea (chief complaint) COPDColostomy statusTobacco abuse 5 Shahzad Cobb. [address], [place], [id number], [place]. tel:[phone] OFFICE/OUTPA TIENT VISIT, [facility], [address], [place], [id number] , [place] tel: [phone] [facility] med f/u (chief complaint) Spinal stenosis in cervical regionCervicalgi a 5 Shahzad Cobb. [address], [place], [id number], [place]. tel:[phone] [facility], [address] [place] [address], [id number] , [place] tel: [phone] [facility] referral (chief complaint) Colostomy statusAttention to colostomy 4 [employer] RESEARCHER Jeri. [address], [place], [id number], [place]. [phone] OFFICE/OUTPA TIENT VISIT, [facility], [address], [place], [id number] , [place] tel: [phone] [facility] ER (chief complaint) OtherColostomy statusAnxietyDia betes Mellitus Type 2, UncomplicatedOth er and unspecified coagulation defects 4 [employer] RESEARCH[employer] Jeri. [address], [place], [id number], [place]. tel:[phone] OFFICE/OUTPA TIENT VISIT, [facility], [address], [place], [id number] , [place] tel: [phone] [facility] BP check (chief complaint) CervicalgiaSpina l stenosis in cervical regionDisplaceme nt of cervical intervertebral disc without myelopathy 4 [employer] RESE[employer] Jeri. [address], [place], [id number], [place]. [phone] OFFICE/OUTPA TIENT VISIT, [facility], [address], [place], [id number] , [place] tel: [phone] [facility] review labs and MRI (chief complaint) Degeneration of cervical intervertebral discDiabetes Mellitus Type 2, UncomplicatedUns pecified essential hypertensionUrin maryellen incontinence, unspecifiedMixed HyperlipidemiaOv erweight 4 Hemmer Libby. [address], [place], [id number], [place]. [facility], [address], [place], [id number] , [place] tel: [phone] [facility] No Information 4 Hemmer Libby. [address], [place], [id number], [place]. [facility], [address], [place], [id number] , [place] tel: [phone] [facility] Potential Drug Interaction (chief complaint) Therapeutic Drug Monitoring 4 Hemkirill Souza. [address], [place], [id number], [place]. OFFICE/OUTPA TIENT VISIT, [facility], [address], [place], [id number] , [place] tel: [phone] [facility] neck pain (chief complaint)ea r discomfort (chief complaint) Degeneration of cervical intervertebral discGERDDiabetes Mellitus Type 2, UncomplicatedUri nary incontinence, unspecifiedUnspe cified essential hypertensionMixe d HyperlipidemiaBe nign neoplasm of thyroid glands 4 Hemkirill Souza. [address], [place], [id number], [place]. [facility], [address] [place] [address], [id number] , [place] tel: [phone] Dental Clinic Dental examination 4 Merrick DMD January. [address], [place], [id number], [place]. tel:[phone] [facility], [address], [place], [id number] , [place] tel: [phone] Dental Clinic Dental examination 4 [place] DMD January. [address], [place], [id number], [place]. tel:[phone] [facility], [address], [place], [id number] , [place] tel: [phone] Dental Clinic Dental examination 0 4 [place] DMD January. [address], [place], [id number], [place]. tel:[phone] [facility], [address], [place], [id number] , [place] tel:[phone] [facility] No Information Jul-2 0 Lamp Mayte. [address], [place], [id number], [place]. tel:[phone] [facility], [address] [place] [address], [id number] , tel: [phone] [facility] No Information Sep-2 8-201 0 Visci DO Boone. [address] [place] [address], [id number], . tel:[phone] [facility], [address] [place] [address], [id number] , tel: [phone] [facility] No Information Dec-0 1-200 8 No Information [facility], [address] [place] [address], [id number] , tel: [phone] Flu No Information Dec-0 1-200 8 Visci DO Boone. [address] [place] [address], [id number], . tel:[phone] Family History Family Member Type Diagnosis Age [...] ID Fredy ferrer(s) Ale Medicare Advantage SERGO [id number] Medicaid [facility] [id number] Social History Type Description Quantity Date Captured Comments Alcohol Use Details Unknown Caffeine Use Details Unknown Tobacco Use Status Smoking Status No Information Sex Female Sexual Orientation Straight or heterosexual Gender Identity Female Chief Complaint And Reason For Visit No Information Reason For Referral Reason For Referral No Information Plan Of Treatment Date Type Action Status Goal Zoster vaccine ( ). Due on due Goal KRAFT DIGESTER OPERATOR exam. Due on due Goal Colonoscopy. Due [...] Hep A. Due on du e Goal H&P. Due on due Goal Mammogram. [...] Pneumococcal vac cine. Due on due Goal KRAFT DIGESTER OPERATOR exam. Due on due Goal Foot exam. [...] due Goal ECG. Due on due Goal KRAFT DIGESTER OPERATOR exam. Due on due Goal Tdap. Due [...] Goal Diabetes screening. Due on due Goal KRAFT DIGESTER OPERATOR exam. Due on due Goal Influenza Vaccine. [...] nt education, guidance, and counseling completed Goal KRAFT DIGESTER OPERATOR exam. Due on due Goal Depression scree [...] Goal Diabetes screening. Due on due Goal KRAFT DIGESTER OPERATOR exam. Due on due Goal Pneumococcal vac cine. Due on due Goal Dental exam. Due on due Goal Hemoglobin A1C. Due on due Goal Urine microalbumin. Due on due Goal Dilated eye exam. Due on Jul due Goal Foot exam. Due on due Goal Tobacco cessation counseling completed Goal Dietary manageme nt education, guidance, and counseling completed Goal H&P. Due on due Goal Influenza Vaccine. Due on due Goal Zoster vaccine ( ). Due on due Goal Tdap. Due on due Goal Foot exam. Due on due Goal Pneumococcal vac cine. Due on due Goal KRAFT DIGESTER OPERATOR exam. Due on due Goal Depression scree [...] Goal Urine microalbumin. Due on due Goal KRAFT DIGESTER OPERATOR exam. Due on due Goal Breast exam. [...] due Goal Mammogram. Due on due Goal Dietary manageme nt education, guidance, and counseling completed Goal Tobacco cessation counseling completed Goal Zoster vaccine ( ). Due on due Goal Breast exam. Due on due Goal Tdap. Due on due Goal Dilated eye exam. Due on Apr due Goal Dental exam. Due on due Goal KRAFT DIGESTER OPERATOR exam. Due on due Goal Pneumococcal vac [...] Goal Dental exam. Due on due Goal KRAFT DIGESTER OPERATOR exam. Due on due Goal Dilated eye exam. Due on March due Goal H&P. Due on due Goal ECG. Due on due Goal Hemoglobin A1C. Due on due Goal Tdap. Due on [...] Goal Dental exam. Due on due Goal KRAFT DIGESTER OPERATOR exam. Due on due Goal Urine microalbumin. [...] due Goal Mammogram. Due on due Goal KRAFT DIGESTER OPERATOR exam. Due on due Goal Foot exam. [...] Goal Influenza Vaccine. Due on due Goal KRAFT DIGESTER OPERATOR exam. Due on due Goal Zoster vaccine [...] Goal Mammogram. Due on 0 due Goal KRAFT DIGESTER OPERATOR exam. Due on due Goal Influenza Vaccine. [...] Pneumococcal vac cine. Due on due Goal KRAFT DIGESTER OPERATOR exam. Due on due Goal Zoster vaccine ( ). Due on due Goal Mammogram. Due on [...] due Goal ECG. Due on due Goal KRAFT DIGESTER OPERATOR exam. Due on due Goal Pneumococcal vac cine. Due on due Goal Foot exam. Due on 0 due Goal Hemoglobin A1C. Due on due Goal Dilated eye exam. Due on Sep due Goal Dental exam. Due on due Goal Urine microalbumin. Due on N due Goal Dietary manageme nt education, guidance, and counseling completed Goal Tobacco cessation counseling completed Goal Dental exam. Due on [...] Influenza Vaccine. Due on Oc due Goal KRAFT DIGESTER OPERATOR exam. Due on due Goal Depression scree [...] Foot exam. Due on 0 due Goal KRAFT DIGESTER OPERATOR exam. Due on due Goal Tdap. Due [...] eye exam. Due on Jul due Goal Pneumococcal vac cine. Due on due Goal Diabetes screening. Due on J due Goal Tobacco cessation counseling completed Goal Foot exam. Due on 0 due Goal Influenza Vaccine. Due on due Goal Mammogram. Due on 0 due Goal Dental exam. Due on due Goal KRAFT DIGESTER OPERATOR exam. Due on due Goal Urine microalbumin. [...] nt education, guidance, and counseling completed Goal KRAFT DIGESTER OPERATOR exam. Due on due Goal Breast exam. [...] completed Goal ECG. Due on due Goal Diabetes screening. Due on due Goal Zoster vaccine ( 1st). Due on due Goal Urine microalbumin. Due on due Goal Depression scree nancy. Due on due Goal Pneumococcal vac cine. Due on due Goal KRAFT DIGESTER OPERATOR exam. Due on due Goal Dilated eye [...] vaccine ( 1st). Due on due Goal KRAFT DIGESTER OPERATOR exam. Due on due Goal Tdap. Due [...] Goal Dental exam. Due on due Goal KRAFT DIGESTER OPERATOR exam. Due on due Goal Hemoglobin A1C. [...] due Goal ECG. Due on due Goal KRAFT DIGESTER OPERATOR exam. Due on due Goal Breast exam. [...] Pneumococcal vac cine. Due on due Goal KRAFT DIGESTER OPERATOR exam. Due on due Goal Colonoscopy. Due [...] Goal Breast exam. Due on due Goal KRAFT DIGESTER OPERATOR exam. Due on due Goal Depression scree [...] due Goal H&P. Due on due Goal KRAFT DIGESTER OPERATOR exam. Due on due Goal Foot exam. [...] due Goal ECG. Due on due Goal KRAFT DIGESTER OPERATOR exam. Due on due Goal Breast exam. [...] A due Goal Urine microalbumin. Due on O due Goal Tdap. Due on due Goal KRAFT DIGESTER OPERATOR exam. Due on due Goal Depression scree nancy. Due on due Goal Foot exam. Due on 0 due Goal Pneumococcal vac cine. Due on due Goal Tobacco cessation counseling completed Goal Dietary manageme nt education, guidance, and counseling completed Goal H&P. Due on due Goal KRAFT DIGESTER OPERATOR exam. Due on due Goal Diabetes screening. Due on due Goal Tdap. Due on due Goal Dilated eye exam. Due on Aug due Goal Urine microalbumin. Due on due [...] nt education, guidance, and counseling completed Goal KRAFT DIGESTER OPERATOR exam. Due on due Goal Tdap. Due [...] Pneumococcal vac cine. Due on due Goal KRAFT DIGESTER OPERATOR exam. Due on due Goal Dilated eye [...] completed Goal Tobacco cessation counseling completed Goal Dental exam. Due on due Goal Tdap. Due on due Goal Mammogram. Due on 9 due Goal Breast exam. Due on due Goal H&P. Due on due Goal Colonoscopy. Due on due Goal Foot exam. Due on 9 due Goal Urine microalbumin. Due on due Goal Depression scree nancy. Due on due Goal KRAFT DIGESTER OPERATOR exam. Due on due Goal Influenza Vaccine. [...] Foot exam. Due on 9 due Goal KRAFT DIGESTER OPERATOR exam. Due on due Goal Depression scree [...] Diabetes screening. Due on A due Goal KRAFT DIGESTER OPERATOR exam. Due on due Goal Dilated eye [...] due Goal H&P. Due on due Goal KRAFT DIGESTER OPERATOR exam. Due on due Goal Depression scree nancy. Due on due Goal Urine microalbumin. Due on A due Goal Colonoscopy. Due on 025 due Goal ECG. Due on due Goal Foot exam. Due on 9 due Goal Pneumococcal vac cine. Due on due Goal Breast exam. Due on 019 due Goal Breast exam. Due on due Goal Depression scree nancy. Due on due Goal Colonoscopy. Due on 025 due Goal KRAFT DIGESTER OPERATOR exam. Due on due Goal Dental exam. [...] Foot exam. Due on 9 due Goal KRAFT DIGESTER OPERATOR exam. Due on due Goal Mammogram. Due [...] Diabetes screening. Due on A due Goal KRAFT DIGESTER OPERATOR exam. Due on due Goal Breast exam. [...] Pneumococcal vac cine. Due on due Goal KRAFT DIGESTER OPERATOR exam. Due on due Goal Depression scree [...] Goal Dental exam. Due on due Goal KRAFT DIGESTER OPERATOR exam. Due on due Goal ECG. Due on due Goal Mammogram. Due on 9 due Goal Tobacco cessation counseling completed Goal Dietary manageme nt education, guidance, and counseling completed Goal Breast exam. Due on due Goal KRAFT DIGESTER OPERATOR exam. Due on due Goal Diabetes screening. [...] Depression scree nancy. Due on due Goal KRAFT DIGESTER OPERATOR exam. Due on due Goal Dental exam. Due on due Goal Pneumococcal vac cine. Due on due Goal Breast exam. Due on 019 due Goal H&P. Due on due Goal [...] Breast exam. Due on 019 due Goal Pneumococcal vac cine. Due on due Goal Tdap. Due on due Goal Influenza Vaccine. Due on due Goal KRAFT DIGESTER OPERATOR exam. Due on due Goal Dental exam. Due on due Goal ECG. Due on due Goal Diabetes screening. Due on due Goal Tobacco cessation counseling completed Goal Dietary manageme nt education, guidance, and counseling completed Goal Tdap. Due on due Goal Dilated eye exam. Due on Nov due Goal Foot exam. Due on due Goal Urine microalbumin. Due on due Goal Pneumococcal vac cine. Due on due Goal Mammogram. Due on due Goal Influenza Vaccine. Due on due Goal Dental exam. Due on due Goal Breast exam. Due on due Goal KRAFT DIGESTER OPERATOR exam. Due on due Goal ECG. Due on due Goal Colonoscopy. Due on 025 due Goal Diabetes screening. Due on A due Goal Depression scree nancy. Due on due Goal H&P. Due on due Goal H&P. Due on [...] due Goal ECG. Due on due Goal KRAFT DIGESTER OPERATOR exam. Due on due Goal Influenza Vaccine. [...] Goal Urinalysis. Due on 14 due Goal ECG. Due on due Goal Tdap. Due on due Goal BMP fasting. Due on due Goal FOBT. Due on due Goal Mammogram. Due on 8 due Goal KRAFT DIGESTER OPERATOR exam. Due on due Goal Breast exam. Due on due Goal FOBT. Due on due Goal Urinalysis. Due on 14 due Goal KRAFT DIGESTER OPERATOR exam. Due on due Goal ECG. Due [...] due Goal ECG. Due on due Goal KRAFT DIGESTER OPERATOR exam. Due on due Goal Dental exam. Due on due Goal Mammogram. Due on due Goal Breast exam. Due on due Goal Foot exam. Due on 8 due Goal Tobacco cessation counseling completed Goal Dilated eye exam. Due on Dec due Goal Mammogram. Due on 8 due Goal Influenza Vaccine. Due on due Goal Foot exam. Due on 8 due Goal Tdap. Due on due Goal Dental exam. Due on due Goal Colonoscopy. Due on due Goal ECG. Due on due Goal BMP fasting. Due on 014 due Goal FOBT. Due on due Goal H&P. Due on due Goal KRAFT DIGESTER OPERATOR exam. Due on due Goal Pneumococcal vac cine. Due on due Goal Breast exam. Due on 018 due Goal Urinalysis. Due on 14 due Goal Urine microalbumin. Due on due Goal KRAFT DIGESTER OPERATOR exam. Due on due Goal Dilated eye exam. Due on Aug due Goal Pneumococcal vac cine. Due on due Goal Foot exam. Due on 7 due Goal Urine microalbumin. Due on O due Goal H&P. Due on due Goal Dental exam. Due on due Goal Mammogram. Due on 7 due Goal Breast exam. Due on 017 due Goal FOBT. Due on due Goal Colonoscopy. Due on due Goal BMP fasting. Due on 014 due Goal Tdap. Due on due Goal Urinalysis. Due on 14 due Goal Influenza Vaccine. Due on due Goal ECG. Due on due Goal FOBT. Due on [...] Goal Influenza Vaccine. Due on due Goal KRAFT DIGESTER OPERATOR exam. Due on due Goal Pneumococcal vac [...] Goal Mammogram. Due on 7 due Goal KRAFT DIGESTER OPERATOR exam. Due on due Goal BMP fasting. Due on 014 due Goal Breast exam. Due on 017 due Goal Dental exam. Due on 017 due Goal H&P. Due on due Goal Tdap. Due on due Goal ECG. Due on due Goal Tobacco cessation counseling completed Goal KRAFT DIGESTER OPERATOR exam. Due on due Goal Urinalysis. Due [...] Goal Breast exam. Due on due Goal KRAFT DIGESTER OPERATOR exam. Due on due Goal H&P. Due [...] Goal Mammogram. Due on 6 due Goal KRAFT DIGESTER OPERATOR exam. Due on due Goal Urinalysis. Due on 14 due Goal KRAFT DIGESTER OPERATOR exam. Due on due Goal H&P. Due [...] Goal BMP fasting. Due on due Goal KRAFT DIGESTER OPERATOR exam. Due on due Goal Mammogram. Due [...] due Goal Colonoscopy. Due on due Goal KRAFT DIGESTER OPERATOR exam. Due on due Goal Influenza Vaccine. [...] due Goal Sigmoidoscopy. Due on due Goal KRAFT DIGESTER OPERATOR exam. Due on due Goal TD Vaccine. Due on 16 due Goal Pap/HPV testing. Due on due Goal Breast exam. Due on 016 due Goal Urinalysis. Due on 14 due Goal FOBT. Due on due Goal Mammogram. Due on 6 due Goal Colonoscopy. Due on 016 due Goal TD Vaccine. Due on 16 due Goal Lipid Panel. Due on 015 due Goal KRAFT DIGESTER OPERATOR exam. Due on due Goal BMP fasting. [...] Goal Mammogram. Due on 6 due Goal KRAFT DIGESTER OPERATOR exam. Due on due Goal H&P. Due [...] Goal Influenza Vaccine. Due on due Goal KRAFT DIGESTER OPERATOR exam. Due on due Goal TD Vaccine. [...] Goal Breast exam. Due on due Goal KRAFT DIGESTER OPERATOR exam. Due on due Goal Urinalysis. Due [...] due Goal Colonoscopy. Due on due Goal KRAFT DIGESTER OPERATOR exam. Due on due Goal Influenza Vaccine. Due on due Goal H&P. Due on due Goal FOBT. Due on due Goal TD Vaccine. Due on 16 due Goal Urinalysis. Due on 14 due Goal Mammogram. Due on 5 due Goal Urinalysis. Due on 14 due Goal BMP fasting. Due on due Goal Tdap. Due on due Goal Pap/HPV testing. Due on due Goal KRAFT DIGESTER OPERATOR exam. Due on due Goal H&P. Due on due Goal TD Vaccine. Due on 15 due Goal Breast exam. Due on 015 due Goal Influenza Vaccine. Due on due Goal Depression scree nancy. Due on due Goal FOBT. Due on due Goal Sigmoidoscopy. Due on due Goal Lipid Panel. Due on due Goal Colonoscopy. Due on due Goal H&P. Due on due Goal Influenza Vaccine. Due on due Goal Tdap. Due on due Goal BMP fasting. Due on due Goal KRAFT DIGESTER OPERATOR exam. Due on due Goal Sigmoidoscopy. Due [...] due Goal Tdap. Due on due Goal KRAFT DIGESTER OPERATOR exam. Due on due Goal FOBT. Due [...] Lipid Panel. Due on 015 due Goal KRAFT DIGESTER OPERATOR exam. Due on due Goal Pap/HPV testing. Due on due Goal BMP fasting. Due on 014 due Goal Urinalysis. Due on 14 due Goal Sigmoidoscopy. Due on due Goal Depression scree nancy. Due on due Goal TD Vaccine. Due on 15 due Goal Colonoscopy. Due on 015 due Goal Tdap. Due on due Goal Sigmoidoscopy. Due on due Goal TD Vaccine. Due on 15 due Goal KRAFT DIGESTER OPERATOR exam. Due on due Goal Colonoscopy. Due on 015 due Goal Breast exam. [...] Goal Breast exam. Due on due Goal KRAFT DIGESTER OPERATOR exam. Due on due Goal TD Vaccine. Due on 15 due Goal Influenza Vaccine. Due on due Goal Colonoscopy. Due on due Goal FOBT. Due on due Goal BMP fasting. Due on 014 due Goal Pap/HPV testing. Due on due Goal Tdap. Due on due Goal KRAFT DIGESTER OPERATOR exam. Due on due Goal Mammogram. Due [...] Depression scree nancy. Due on due Goal BMP fasting. Due on due Goal Breast exam. Due on due Goal TD Vaccine. Due on 15 due Goal Urinalysis. Due on 14 due Goal Mammogram. Due on 5 due Goal H&P. Due on due Goal KRAFT DIGESTER OPERATOR exam. Due on due Goal Tdap. Due [...] due Goal Tdap. Due on due Goal KRAFT DIGESTER OPERATOR exam. Due on due Goal Pap/HPV testing. Due on due Goal Mammogram. Due on 5 due Goal Sigmoidoscopy. Due on due Goal BMP fasting. Due on 014 due Goal Influenza Vaccine. Due on due Goal KRAFT DIGESTER OPERATOR exam. Due on due Goal Urinalysis. Due [...] To: [facility] [address] [place], [place] [id number] Ordered: Referrals: Allopathic & Osteopathic Physicians : Orthopaedic Surgery. [facility]. Location: [facility]. Consult Appointment date/timeframe: 09/03/2017 ordered Referral Ordered: [...] Referral Ordered: referred to Clinical Nurse Specialist SHEET [employer] PRINTER today (related to Attention to colostomy) ordered Referral Ordered: Urology. ordered Future Order: Lab Order GLYCOSYL ATED HEMOGLOBIN TEST ([id number]), Collected on: , Sent on: Sent Future Order: Lab Order Complian ce Drug Analysis, Ur ([id number]), Collected on: , Sent on: Sent Future Order: Lab Order Urine, N aloxone Urine Cofirm ([id number]), Collected on: , Sent on: Sent History [...] RN ,above was reviewed and agreed with [facility] lab draw Pt here for lab [...] Lyrica 08/11, Ativan 08/05, Flexeril 07/29 & [place] 07/26[facility] [employer] ATTEND[employer] fatigue This is an initi al visit. [...] completed, last filled Lorazepam 06/06, Lyrica 06/06, [place] 06/05[facility] Med Refills Pt here today fo r medication refills. PT states she fell Thursday and her L hand is swollen. Denies any pain. OARRS completed, last filled [place], Ativan & [facility] Musculoskeletal pain Onset: sudd en. It [...] Ativan, 02/13, Lyrica 02/13, & norco 02/06TGrodi LAUNDRY ATTENDANT fatigue This is an initi al visit. [...] Ativan 12/19, Lyrica 12/17, Flexeril 12/02 & [place] 11/20TGrodi LPNPt states she is just tired, pt son who she lives with has his son that is 3 months old and not sleeping thought the [facility] Med Refills Pt here today fo [...] work. OARRS completed, last filled Ativan 10/23, [place] 10/31 & Flexeril 10/31TGrodi LAUNDRY ATTENDANT GERD The severity of the problem is [...] refills. OARRS completed, last filled Ativan 09/25, [place] & Flexeril 09/05TG[facility] LAUNDRY ATTENDANT diabetes The problem is s table. Risk [...] OARRS completed, last filled Ativan 08/26 & [place]view 08/08TGrodi LAUNDRY ATTENDANT Med Refills Pt here today fo r medication refills. We discussed Pt getting tested genes for coronary artery disease and what pt should do about it otherwise pt is doing well. OARRS completed, last filled Ativan 07/22, Flexeril 07/15, [place] 07/11 & Lyrica 07/01TGro[facility] LAUNDRY ATTENDANT fatigue This is an initi al visit. [...] completed, last filled Lyrica & Ativan 05/27, [place] 05/18, & Ambien 05/14[facility] LAUNDRY ATTENDANT diabetes The problem is s table. Risk [...] completed, last filled Ativan 04/28, Lyrica 04/28, Fairview 04/16[facility] LAUNDRY ATTENDANT GERD The severity of the problem is [...] back pain and dizziness, states that the Fairview is no longer helping the pain. Pt [...] 03/10, Ativan, Ambien & Lyrica 03/02, & Fairview 03/01TGrodi LAUNDRY ATTENDANT Anxiety This is a follow up visit. [...] swelling, redness and pain. Pt states the Fairview helps with the pain but she is worried about infection. Pt denies any other problems or concerns.Pt requesting refills of [place]view 5mg last filled 11/07 and Ativan 0.5mg [...] completed, last filled Lyrica 10/27, Flexeril 10/27, [place] & Ativan 09/27TGjoyce HOPPER Rash The patient [...] provide oral swab. OARRS completed, last filled [place] 09/27, Ativan 09/27 & Lyrica 09/28. [facility] Rapid urine drug screen performed, pt + for NOTHING ALL NEGATIVE. Asked patient when she last took her medication and she stated she last took Ativan yesterday & Fairview 4 days ago. [facility] refills Pt here today fo [...] last filled Flexeril 09/19 & 09/08, Lyrica, [place] & [facility]ivan [facility] Onset was sudden . The duration [...] if she needs a refill on her Fairview and she said, yeah might as well . I asked patient to provide a urine today and she said she can not pee. OARRS completed, last filled Flexeril 08/26, Ativan 08/03, & [place] 08/03TGrodi LAUNDRY ATTENDANT Dizziness Onset was sudden . Severity is [...] Flexeril 07/15, Lyrica 06/29, Ativan 06/22 & [facility] [facility] Pt could not uri ion for a UDS. Pt had blood drawn. First attempt successful in R antecubital. Pt tolerated well. [facility] 6 WK F/U Pt here today [...] filled Flexeril 05/27 & 06/09, Lyrica 05/25, [place]view & Ativan 05/11TGrod LPNPt states that beside the no energy she feels ok drug screen Pt could no go t o the bathroom so did a blood draw for a drug screen. First attempt successful in R antecubital. Pt tolerated well no issues or concerns. [facility] follow up Pt here today fo r a follow up & medication refills. Pt states she had her INR drawn today and it was 1.9OARRS completed, last filled Flexeril 04/30, Lyrica 04/25, Ativan 04/13, & [place] 03/11[facility] hypertension Comorbid conditi ons include diabetes [...] completed, last filled Lyrica 02/16, Ativan, & [place]view /Grodi LPNASKED PATIENT IF SHE COULD PROVIDE A URINE AND SHE SAID NOT RIGHT NOW. SHE WILL NEED TO PROVIDE A URINE OR GET A BLOOD DRAW. ,above was reviewed and agreed with Medication refills Patient here for Medication refills. Patient is requesting refills on Wellbutrin, Ativan and [place]view. A1C completed today. No other issues at this time. Also patient did agree to reschedule breast biopsy. Patent was advised to stop blood thinners for 5 days. Patient is scheduled 02/09/19 at 10am at [facility]. OARRS completed. last [...] well. She states she does not need Fairview cause she still has some. OARRS completed, last filled, Ativan 12/22 for 15 day supply, [place]view & Lyrica 12/22TGrodi LPNPt states she get [...] this needs discussed. OARRS completed, last filled [place], Ativan, 11/05, Lyrica 11/11 & got Percocet [...] Pt here for medi cation refill on Fairview and Ativan. Pt. c/o back pain 08/11. Pt was seen at Dr. Tom office and he seems to think its more of a hip problem. Pt. is scheduled to have back surgery this Thursday to insert gel into the spine. Pt has bulging disk Pt. did have X-rays yesterday. Pt. is hesitant to have the surgery due to hearsay from others. RCUHI Mena bladder infection Pt states abou t [...] syrup cough drops, tylenol. Sandra Guthrie RN. [place]: Finished ten day s if Keflex. Coughing [...] called. Jose Margarito: Coughing for 1 w wiyot. No hemoptysis or shortness of breath or chest pain. Has a nebulizer at home. [place]: States she was t aking Gabapentin for [...] the coumadin clinic and [facility] managed by [facility] Dr. Rodriguez. Patient needs a [...] is looking into another psych provider in [place]. RUCHI Figueroa knee pain Location: knee. Additional [...] april to see new psych doctor in [place]. Patient has no other issues at this [...] are due for refill. She went to [facility] on 10/15/15 and starts PT on 11/07/15. [...] Metoprolol, & Clopidogel. Oscar Arias dyspnea Pt. [facility] was i [facility] in for emergency colectomy. While inpt. was using nebulizers. Was not given Rx at time of d/c and has been using sister's neb at home with relief of dyspnea. Neb meds currently using are Albuterol and Ipratropium [place] 2 - 3 times/day. Hayden Casas R.N. med f/u Client here to f /u on meds. Also [facility] has a rash around her stoma. [facility] has a Colonoscopy sched. for 11-21-14. Oscar [...] if desires results. 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
--- OUTSIDE RECORDS SUMMARY | 2024-09-16 11:00 | XMS_ITS ---
Author Organization [facility] es Address [address] [facility] [place] [address] Care Team Providers Care Marine Service Station Attendant Name Role Phone Darcie Lacey Primary Care Provider Janna Jackson Unavailable [phone] REASON FOR VISIT chronic f/u Encounters Encounter Location Date Provider Diagnosis [facility] [address] [facility] [place] [address] 09/16/2024 Darcie Lacey Plan Of Treatment No Information Progress Notes * KING MORENO ADOB:[birth year] (64 yo F)Acc No.[id number]:09/16/2024 Progress Notes Patient: KING KWONG Appointment Provider: Juanita LACEY MD :1960 A ge:63 Y S ex:Female Date:09/16/2024 Address:[address] [place], [place] [id number] Subjective: * Chief Complaints: * 1 . Chronic f/u. * Medical History: Objective: * Vitals: Assessment: Plan: * Treatment: * Images: * Electronic signature of Sherly Lacey MD on 04/08/2025 at 01:08 PM EDT Sign off status: Pending * Appointment Provider: Juanita LACEY MD Date: 11/16/2023 Generated for [place] ng/Facliftong/eTransmitting on: 0 04/08/2025 01:08 PM EDT
--- OUTSIDE RECORDS SUMMARY | 2024-12-07 10:15 | XMS_ITS ---
Author Organization [facility] es Address [address] [place] [address] Care Team Providers Care Clinical Support Manager Name Role Phone Darcie Garcia Primary Care Provider Janna Jackson Unavailable [phone] Nicole Benson Unavailable [phone] REASON FOR VISIT 3 month f/u Encounters Encounter Location Date Provider Diagnosis [facility] [address] [place] [address] 12/07/2024 Nicole Benson Plan Of Treatment No Information Progress Notes * KING MORENO ADOB:[birth year] (64 yo F)Acc No.[id number]:12/07/2024 Behavioral Health Patient: KING KWONG Appointment Provider: Luz Benson :1960 A ge:64 Y S ex:Female Date:12/07/2024 Address:[address] [place], [place] [id number] Pcp:Darcie Garcia Subjective: * Chief Complaints: * 1 . 3 month f/u. * Medical History: Objective: * Vitals: Assessment: Plan: * Treatment: * Images: * Electronic signature of KRISTIAN Hercules on 04/08/2025 at 01:07 PM EDT Sign off status: Pending * Appointment Provider: Luz Benson Date: 0 12/07/2024 Generated for Brandon williamson/[place]/eTransmitting on: 0 04/08/2025 01:07 PM EDT
--- OUTSIDE RECORDS SUMMARY | 2025-04-03 13:00 | XMS_ITS | Encounter Summary ---
Author Organization [facility] Address [address] [place] [address] Phone Care Team Providers Care Api Product Manager Name Role Phone June Preston MD Unavailable Conchita Aden MD Primary Care Provider [phone] Reason for Referral * Imaging (Routine) - Authorized Specialty Diagnoses / Procedures Referred By Aleena lomeli Referred To Contact Radiology Diagnoses Ventricular tachycardia (Multi) Abnormal result of cardiovascular function study, unspecified Procedures CT heart structure morphology w IV contrast Jennifer Fair MD [address] [place] [address] Phone: tel: fax: Referral ID Status Reason Start Date Expiration Date Visits Requested Visits Authorized [id number] Authorized Perform Procedure 01/12/2025 01/12/2026 1 1 Reason for Visit * Imaging (Routine) - Authorized Specialty Diagnoses / Procedures Referred By Aleena lomeli Referred To Contact Radiology Diagnoses Ventricular tachycardia (Multi) Abnormal result of cardiovascular function study, unspecified Procedures CT heart structure morphology w IV contrast Jennifer Fair MD [address] [place] [address] Phone: tel: fax: Referral ID Status Reason Start Date Expiration Date Visits Requested Visits Authorized [id number] Authorized Perform Procedure 01/12/2025 01/12/2026 1 1 Encounter Details Date Type Department Care Team (Latest Contact Info) Description 04/03/2025 1:00 PM EDT - 04/03/2025 11:59 PM EDT Hospital Encounter [facility] [address] [place] [id number] Ventricular tachycardia (CMS/HCC); Abnormal result of cardiovascular [...] from your doctor or pharmacy? Never 01/08/2025 [facility] Utilities Answer Date Recorded In the past 12 months has th e [employer], gas, oil, or water [employer] threatened to shut off services in your [...] week 01/08/2025 How often do you attend latter-day or amish serv ices? Patient declined 01/08/2025 Do you belong to any clubs o r organizations such as latter-day groups, unions, fraternal or athletic groups, or [...] Patient Health Questionnaire-2 Score 0 01/08/2025 [facility] Occupat ional [facility] - Occupational Stress Questionnaire Answer Date Recorded [...] place to sleep or slept in a senior care (including now)? No 02/16/2024 Housing Stability Vital Sign Answer Mookie e Recorded In the last 12 months, was t here a time when you were not able to pay the mortgage or rent on time? No 01/08/2025 In the past 12 months, how m any times have you moved where you were living? 1 01/08/2025 At any time in the past 12 m [facility], were you homeless or living in a senior care (including now)? No 01/08/2025 Comments No Sex [...] aspirin 81 mg EC tabletIndications:At herosclerosis of [place] coronary artery of [place] heart without angina pectoris Take 1 tablet (81 mg) by mouth 2 times a week. 11/14/2024 6 benzocaine-menthol (Cepastat Sore Throat) lozengeIndications:I CD (implantable cardioverter-defibri llator) discharge Dissolve 1 lozenge in the mouth every 2 hours if needed for sore throat. 40 lozenge 01/13/2025 Invokana 300 mgIndications:Type 2 diabetes mellitus without complication, without long-term current use of insulin,Atherosclero sis of [place] coronary artery of [place] heart without angina pectoris,Chronic systolic CHF (congestive [...] 500 mg 12 hr tabletIndications:At herosclerosis of [place] coronary artery of [place] heart without angina pectoris Take 1 tablet [...] rosuvastatin (Crestor) 20 mg tabletIndications:At herosclerosis of [place] coronary artery of [place] heart without angina pectoris,Mixed hyperlipidemia Take 1 [...] Description 04/14/2025 9:30 AM EDT Hospital Encounter [facility] [place] [address] [place] [address] [place] [address] Jennifer Fair MD [address] [place] [address] Ventricular tachycardia (Multi) 04/14/2025 11:00 AM EDT - 04/14/2025 3:00 PM EDT Surgery [facility] [address] [place] [address] [place] [address] Jennifer Fair MD [address] [place] [address] [place] [[address] (CPT )] 07/14/2025 1:00 PM EDT Office Visit [facility] [address] [facility] [address] [place] [address] Oscar Rodriguez MD 3 [facility] 2, [address] [place] [address] 09/26/2025 12:20 PM EST Appointment [facility] [address] [place] [address] 09/26/2025 1:00 PM EST Office Visit [facility] [address] [facility] [address] [place] [address] June Preston MD [address] [facility] Medical Office [address], [address] [place], [place] [id number] documented as of this encounter Procedures Procedure [...] Anand Baugh 04/04/2025 1:16 AM Dictation workstation: [id number] Narrative 04/04/2025 1:16 AM EDT Interpreted By: Anand Baugh and Okyere Robert STUDY: CT HEART STRUCTURE MORPHOLOGY W IV CONTRAST; 04/03/2025 1:36 pm INDICATION: Signs/Symptoms:For Ventricular Tachycardia ablation planning; late iodine enhancement CT scan; inHeart protocol; must be done at [facility]. COMPARISON: None. ACCESSION NUMBER(S): [id number] ORDERING CLINICIAN: JENNIFER FAIR TECHNIQUE: Using multi-detector [...] about 25-50% luminal stenosis which fills via uukq-pe-pdyix collaterals. CARDIAC CHAMBERS: The cardiac chambers demonstrate [...] scan; inHeart protocol; must be done at [facility]. COMPARISON: None. ACCESSION NUMBER(S): [id number] ORDERING CLINICIAN: JENNIFER FAIR TECHNIQUE: Using multi-detector [...] about 25-50% luminal stenosis which fills via [id number] collaterals. CARDIAC CHAMBERS: The cardiac chambers demonstrate [...] Anand Baugh 04/04/2025 1:16 AM Dictation workstation: [id number] Jennifer Fair MD IMG CT PROCEDURES Final [...] documented as of this encounter Care Teams Api Product Manager Relationship Specialty Start Date End Date Conchita Aden MD [facility]5 [facility] [place] [address] PCP - General Family Medicine 11/11/24 June Preston MD [address] [facility] [address] [place] [address] Survey Analyst Electrophysiology 09/13/24 documented as of this encounter
--- OUTSIDE RECORDS SUMMARY | 2025-04-03 13:00 | XMS_ITS | Encounter Summary ---
Author Organization [facility] Address [address] [place] [address] Phone Care Team Providers Care Stick Welder Name Role Phone June Preston MD Unavailable Conchita Aden MD Primary Care Provider [phone] Reason for Referral * Imaging (Routine) - Authorized Specialty Diagnoses / Procedures Referred By Aleena lomeli Referred To Contact Radiology Diagnoses Ventricular tachycardia (Multi) Abnormal result of cardiovascular function study, unspecified Procedures CT heart structure morphology w IV contrast Jennifer Fair MD [address] [place] [address] Phone: tel: fax: Referral ID Status Reason Start Date Expiration Date Visits Requested Visits Authorized [id number] Authorized Perform Procedure 01/12/2025 01/12/2026 1 1 Reason for Visit * Imaging (Routine) - Authorized Specialty Diagnoses / Procedures Referred By Aleena lomeli Referred To Contact Radiology Diagnoses Ventricular tachycardia (Multi) Abnormal result of cardiovascular function study, unspecified Procedures CT heart structure morphology w IV contrast Jennifer Fair MD [address] [place] [address] Phone: tel: fax: Referral ID Status Reason Start Date Expiration Date Visits Requested Visits Authorized [id number] Authorized Perform Procedure 01/12/2025 01/12/2026 1 1 Encounter Details Date Type Department Care Team (Latest Contact Info) Description 04/03/2025 1:00 PM EDT - 04/03/2025 11:59 PM EDT Hospital Encounter [facility] [address] [place] [id number] Ventricular tachycardia (CMS/HCC); Abnormal result of cardiovascular [...] from your doctor or pharmacy? Never 01/08/2025 [facility] Utilities Answer Date Recorded In the past 12 months has th e [employer], gas, oil, or water [employer] threatened to shut off services in your [...] week 01/08/2025 How often do you attend advent or gnosticist serv ices? Patient declined 01/08/2025 Do you belong to any clubs o r organizations such as advent groups, unions, fraternal or athletic groups, or [...] Recorded Patient Health Questionnaire-2 Score 0 01/08/2025 [facility] Occupat ional [facility] - Occupational Stress Questionnaire Answer [...] any time in the past 12 m [facility], were you homeless or living in [...] aspirin 81 mg EC tabletIndications:At herosclerosis of [place] coronary artery of [place] heart without angina pectoris Take 1 tablet (81 mg) by mouth 2 times a week. 11/14/2024 6 benzocaine-menthol (Cepastat Sore Throat) lozengeIndications:I CD (implantable cardioverter-defibri llator) discharge Dissolve 1 lozenge in the mouth every 2 hours if needed for sore throat. 40 lozenge 01/13/2025 Invokana 300 mgIndications:Type 2 diabetes mellitus without complication, without long-term current use of insulin,Atherosclero sis of [place] coronary artery of [place] heart without angina pectoris,Chronic systolic CHF (congestive [...] 500 mg 12 hr tabletIndications:At herosclerosis of [place] coronary artery of [place] heart without angina pectoris Take 1 tablet [...] rosuvastatin (Crestor) 20 mg tabletIndications:At herosclerosis of [place] coronary artery of [place] heart without angina pectoris,Mixed hyperlipidemia Take 1 [...] Description 04/14/2025 9:30 AM EDT Hospital Encounter [facility] [place] [address] [place] [address] [place] [address] Jennifer Fair MD [address] [place] [address] Ventricular tachycardia (Multi) 04/14/2025 11:00 AM EDT - 04/14/2025 3:00 PM EDT Surgery [facility] [address] [place] [address] [place] [address] Jennifer Fair MD [address] [place] [address] [place] [[address] (CPT )] 07/14/2025 1:00 PM EDT Office Visit [facility] [address] [facility] [address] [place] [address] Oscar Rodriguez MD 3 [facility] [address], [address] [place] [address] 09/26/2025 12:20 PM EST Appointment [facility] [address] [place] [address] 09/26/2025 1:00 PM EST Office Visit [facility] [address] [facility] [address] [place] [address] June Preston MD [address] [facility] Medical [facility] [address], [address] [place], [place] [phone] documented as of this encounter Procedures Procedure [...] Anand Baugh 04/04/2025 1:16 AM Dictation workstation: [id number] Narrative 04/04/2025 1:16 AM EDT Interpreted By: Anand Baugh and Okyere Robert STUDY: CT HEART STRUCTURE MORPHOLOGY W IV CONTRAST; 04/03/2025 1:36 pm INDICATION: Signs/Symptoms:For Ventricular Tachycardia ablation planning; late iodine enhancement CT scan; inHeart protocol; must be done at [facility]. COMPARISON: None. ACCESSION NUMBER(S): [id number] ORDERING CLINICIAN: JENNIFER FAIR TECHNIQUE: Using multi-detector [...] about 25-50% luminal stenosis which fills via [id number]-ov-adbtp collaterals. CARDIAC CHAMBERS: The cardiac chambers demonstrate [...] scan; inHeart protocol; must be done at [facility]. COMPARISON: None. ACCESSION NUMBER(S): [id number] ORDERING CLINICIAN: JENNIFER FAIR TECHNIQUE: Using multi-detector [...] about 25-50% luminal stenosis which fills via [id number]-el-mplud collaterals. CARDIAC CHAMBERS: The cardiac chambers demonstrate [...] Anand Baugh 04/04/2025 1:16 AM Dictation workstation: [id number] Jennifer Fair MD IMG CT PROCEDURES Final [...] documented as of this encounter Care Teams Stick Welder Relationship Specialty Start Date End Date Conchita Aden MD [employer] [facility] [place] [address] PCP - General Family Medicine 11/11/24 June Preston MD [address] [facility] [address] [place] [address] Service Engineer Electrophysiology 09/13/24 documented as of this encounter
--- OUTSIDE RECORDS SUMMARY | 2025-04-07 08:03 | XMS_ITS | Continuity of Care Document ---
Author Organization [facility] Address [address] [place] [address] Phone Support Name Relationship Address Phone Otis Martinez Emergency Contact [address] [place] [address] Jeri Fletcher APRN Personal Relationship [address] [place] [address] Erendira Alexandre PA-C Personal Relationship [address] [place] [address] Diane Turcios CMA Personal Relationship Unknown Unavailable Oscar Rodriguez MD Personal Relationship [address] [place] [address] Julianne Michelle DO Personal Relationship [address] [place] [address] Keely Melvin MD Personal Relationship [address] [place] [address] Augustus Ace MD Personal Relationship [address] [place] [address] Lorrie Winn MD Personal Relationship [address] [facility] [place] [address] Yonis Covington DO Personal Relationship [address] [place] [address] Jsohua Fletcher MD Personal Relationship [address] [place] [address] Etienne Doe MD Personal Relationship [address] [place] [address] Hannah Do MD Personal Relationship [address] [place] [address] Errol Mendoza DO Personal Relationship [address] [place] [address] Srinivasa Cárdenas II, MD Personal Relationship [address] [place] [address] Thanh Saldaña DO Personal Relationship [address] [place] [address] Dayan Campa HAND PAINT MIXER-C Personal Relationship [address] [facility] [place] [address] Tree Red MD Personal Relationship [address] [place] [facility] [place] [address] Care Team Providers Care Oxyacetylene Cutter Name Role Phone Jeri Fletcher APRN Primary Care Provider Keely Melvin MD Admit Provider Augustus Ace MD Other Provider Lorrie Winn MD Other Provider Yonis Covington DO Attending Provider Joshua Fletcher MD Other Provider [phone] Etienne Doe MD Other Provider Hannah Do MD Other Provider [phone] Errol Mendoza DO Other Provider Srinivasa Cárdenas II, MD Other Provider Thanh Saldaña DO Other Provider Care Teams Patient Care Team Team Status: Active Member Role Status Dates Jeri Fletcher APRN [employer] PA[employer] M[employer]ER-C Primary Care Provider Active Visit Care Team Team Status: Active Member Role Status Dates Jeri Fletcher APRN NP-C Primary Care Provider Active Start: January 08, 2025 Erendira Alexandre PA-C Attending Provider Active Start: January 08, 2025 Visit Care Team Team Status: Active Member Role Status Dates Jeri Rohrbacher , SENIOR STAFF ACCOUNTANT [employer] M[employer]ER-C Primary Care Provider Active Start: January 24, 2025 Diane Turcios CMA Attending Provider Active Start: January 24, 2025 Visit Care Team Team Status: Inactive Member Role Status Dates Jeri Fletcher APRN [employer] PAINT M[employer]-C Primary Care Provider, Attending Provider Active Start: January 30, 2025 End: January 30, 2025 Visit Care Team Team Status: Active Member Role Status Dates Jeri Fletcher APRN [employer] PAINT M[employer]-C Primary Care Provider Active Start: February 10, 2025 Oscar Rodriguez MD Attending Provider Active St art: February 10, 2025 Visit Care Team Team Status: Active Member Role Status Dates Jeri Fletcher APRN [employer] PAINT M[employer]-C Primary Care Provider, Attending Provider Active Start: March 02, 2025 Visit Care Team Team Status: Inactive Member Role Status Dates Jeri Fletcher APRN HAND PAINT M[employer]ER-C Primary Care Provider, Attending Provider Active Start: March 20, 2025 End: March 20, 2025 Visit Care Team Team Status: Active Member Role Status Dates Jeri Fletcher APRN [employer] PAINT M[employer]ER-C Primary Care Provider Active Start: March 25, 2025 Julianne Michelle DO Attending Provider Active Start: March 25, 2025 Visit Care Team Team Status: Active Member Role Status Dates Jeri Fletcher APRN [employer] PAINT MIXER-C Primary Care Provider Active Start: March 26, 2025 Julianne Michelle DO Attending Provider Active Start: March 26, 2025 Visit Care Team Team Status: Inactive Member Role Status Dates Jeri Fletcher APRN HAND PAINT M[employer]ER-C Primary Care Provider Active Start: March 26, 2025 End: March 31, 2025 Keely Melvin MD Admit Provider Active Start: March 26, 2025 End: March 31, 2025 Augustus Ace MD Other Provider Active Start: March 26, 2025 End: March 31, 2025 Lorrie Winn MD Other Provider Active Start: March 26, 2025 End: March 31, 2025 Yonis Covington DO Attending Provider Active Start: March 26, 2025 End: March 31, 2025 Joshua Fletcher MD Other Provider Active Start : March 26, 2025 End: March 31, 2025 Etienne Doe MD Other Provider Active Start: M ay 2024 End: March 31, 2025 Hannah Do MD Other Provider Active Star t: March 26, 2025 End: March 31, 2025 Errol Mendoza , Other Provider Active Start : March 26, 2025 End: March 31, 2025 Srinivasa Cárdenas II, MD Other Provider Active S tart: March 26, 2025 End: March 31, 2025 Thanh Saldaña , DO Other Provider Active Start: March 26, 2025 End: March 31, 2025 Visit Care Team Team Status: Active Member Role Status Dates Jeri Fletcher APRN HAND PAINT M[employer]ER-C Primary Care Provider Active Start: March 28, 2025 Keely Melvin MD Admit Provider Active Start: March 28, 2025 Augustus Ace MD Other Provider Active Start: March 28, 2025 Lorrie Winn MD Other Provider Active Start: March 28, 2025 Yonis Covington , Other Provider Active Start: March 28, 2025 Joshua Fletcher MD Other Provider Active Start : March 28, 2025 Etienne Doe MD Other Provider Active Start: M ay 2024 Hannah Do MD Other Provider Active Star t: March 28, 2025 Errol Mendoza , Other Provider Active Start : March 28, 2025 Srinivasa Cárdenas II, MD Other Provider Active S tart: March 28, 2025 Thanh Saldaña , DO Other Provider Active Start: March 28, 2025 Dayan Campa HAND PAINT MIXER-C Attending Provider Active Start: March 28, 2025 Visit Care Team Team Status: Active Member Role Status Dates Jeri Fletcher APRN HAND PAINT M[employer]ER-C Primary Care Provider Active Start: March 28 Keely Melvin MD Admit Provider Active Start: March 28, 2025 Augustus Ace MD Attending Provider, Other Provider Active Start: March 28, 2025 Lorrie Winn MD Other Provider Active Start: March 28, 2025 Yonis Covington DO Other Provider Active Start: March 28, 2025 Joshua Fletcher MD Other Provider Active Start : March 28, 2025 Visit Care Team Team Status: Active Member Role Status Dates Jeri Fletcher APRN [employer] PA[employer] M[employer]ER-C Primary Care Provider Active Start: March 29 Keely Melvin MD Admit Provider Active Start: March 29, 2025 Augustus Ace MD Other Provider Active Start: March 29, 2025 Lorrie Winn MD Other Provider Active Start: March 29, 2025 Yonis Covington , Other Provider Active Start: March 29, 2025 Joshua Fletcher MD Attending Provider, Other Provider Active Start: March 29, 2025 Visit Care Team Team Status: Active Member Role Status Dates Jeri Fletcher APRN HAND PAINT MIXER-C Primary Care Provider Active Start: March 30 Keely Melvin MD Admit Provider Active Start: March 30, 2025 Augustus Ace MD Other Provider Active Start: March 30, 2025 Lorrie Winn MD Other Provider Active Start: March 30, 2025 Yonis Covington , Other Provider Active Start: March 30, 2025 Joshua Fletcher MD Other Provider Active Start : March 30, 2025 Etienne Doe MD Other Provider Active Start: naye 2024 Hannah Do MD Other Provider Active Star t: March 30, 2025 Errol Mendoza , Other Provider Active Start : March 30, 2025 Srinivasa Cárdenas II, MD Attending [facility], Other Provider Active Start: March 30, 2025 Thanh Saldaña , Other Provider Active Start: March 30, 2025 Visit Care Team Team Status: Active Member Role Status Dates Jeri Fletcher APRN HAND PAINT M[employer]ER-C Primary Care Provider Active Start: April 03, 2025 Diane Turcios CMA Attending Provider Active Start: April 03, 2025 Visit Care Team Team Status: Active Member Role Status Dates Jeri Fletcher APRN [employer] PAINT M[employer]ER-C Primary Care Provider Active Start: April 04, 2025 Tree Red MD Attending Provider Active St art: April 04, 2025 Visit Care Team Team Status: Inactive Member Role Status Dates Jeri Fletcher APRN [employer] PA[employer] M[employer]-C Primary Care Provider, Attending Provider Active Start: April 04, 2025 End: April 04, 2025 Patient Care Team Team Status: Inactive Member Role Status Dates Jeri Fletcher APRN HAND PAINT MIXER-C Primary Care Provider, Attending Provider Active Start: April 07, 2025 End: April 07, 2025 Chief Complaint and Reason for Visit Chief Complaint Admit Date Amb Documentation January 24, 2025 2:1 5pm IP UH; chest pain/depression medication- HIGH RISK January 30, 2025 12:59pm Stomach Concerns March 20, 2025 1:12p m Sepsis March 26, 2025 9:30a m Sepsis March 28, 2025 8:27a m Sepsis March 28, 2025 9:31a m Sepsis March 29, 2025 9:32a m Sepsis March 30, 2025 9:23p m Amb Documentation April 03, 2025 9:05a m stomach concerns April 07, 2025 11:09 am Reason for Visit Admit Date Atrial flutter January 30, 2025 12: 59pm Bipolar 1 disorder, depressed December 12:59pm Cardiac defibrillator in place December 12:59pm Depression January 30, 2025 12: 59pm Hospital discharge follow-up January 30, 2025 12:59pm Ischemic cardiomyopathy January 30, 2025 12:59pm Pneumonia January 30, 2025 12: 59pm Tobacco abuse January 30, 2025 12: 59pm Constipation March 20, 2025 1:12p m Generalized abdominal discomfort March 1:12pm Bipolar 1 disorder, depressed March 26, 2025 9:30am Chronic anticoagulation March 26, 2025 9 :30am Chronic clinical systolic heart failure March 26, 2025 9:30am COPD (chronic obstructive pulmonary dise ase) March 26, 2025 9:30am Diabetes March 26, 2025 9:30a m Dislocation of proximal inte rphalangeal joint of right middle finger March 26, 2025 9:30am GERD (gastroesophageal reflux disease) M 2024 9:30am HLD (hyperlipidemia) March 26, 2025 9:30 am HTN (hypertension), benign March 26 9:30am Hypomagnesemia March 26, 2025 9:30a m Hyponatremia March 26, 2025 9:30a m Iron deficiency anemia March 26, 2025 9: 30am Leukocytosis March 26, 2025 9:30a m Neoplasm, uncertain whether benign or ma lignant March 26, 2025 9:30am Occlusion of common iliac artery March 9:30am Ovarian cyst March 26, 2025 9:30a m Paroxysmal atrial fibrillation March 26, 2025 9:30am Restless leg syndrome March 26, 2025 9:3 0am Right leg weakness March 26, 2025 9:30a m Sepsis March 26, 2025 9:30a m Spinal stenosis of lumbar region with ra diculopathy March 26, 2025 9:30am Hospital discharge follow-up April 04 025 9:58am Hypomagnesemia April 04, 2025 9:58a m Iron deficiency anemia April 04, 2025 9: 58am Leukocytosis April 04, 2025 9:58a m Nicotine dependence April 04, 2025 9:58a m Restless leg syndrome April 04, 2025 9:5 8am S/P insertion of iliac artery stent April 04, 2025 9:58am Sepsis April 04, 2025 9:58a m Diarrhea April 07, 2025 11:09 am Allergies, Adverse Reactions, Alerts No known allergies Social History Smoking Status Status Start Date End Date Date of Observa tion Smoker (finding) March 30, 2 025 9:27pm Observation Status Observation Response Date of Response Patient Sex Female April 07, 2025 1 2:02pm Assigned Sex Female 1960 Gender Identity Cisgender/Not transgender (findi ng) September 08, 2024 Sexual Orientation Social History Assessments SDOH Follow up Observation Response Date Recorded Has the SDOH screening changed since admission? N March 31, 2025 11:00am SDOH Follow up Observation Response Date Recorded Has the SDOH screening changed since admission? N March 28, 2025 12:23pm SDOH Follow up Observation Response Date Recorded Has the SDOH screening changed since admission? N March 28, 2025 8:48am Family History Relationship Condition Age at Onset Recorded Date/T zulema father Myocardial infarction Unknown mother Cerebrovascular accident (CVA) Unknown sister Cerebrovascular accident (CVA) Unknown brother Motor vehicle accident Unknown brother Heart disease Unknown History of stroke Unknown father Myocardial infarction Unknown Unknown Heart disease Unknown mother Unknown History of stroke Unknown son Obesity Unknown sister History of stroke Unknown Family history of mental disorder Unknown Problems Active Problems Medical Problem Onset Date Status Comments Bipolar 1 disorder, depressed Active Nicotine dependence Active Occlusion of common iliac artery Active Dislocation of proximal interphalangeal joint of right middle finger Active Spinal stenosis of lumbar re gion with radiculopathy Active Diabetes Active Ovarian cyst Active HTN (hypertension), benign Active Right leg weakness Active CAD (coronary artery disease) Active Afib Active Atrial flutter Active Chronic anticoagulation Active Chronic clinical systolic he art failure Active Cough Active Depression Active Diarrhea Active HLD (hyperlipidemia) Active Hyponatremia Active Leukocytosis Active Ischemic cardiomyopathy Active Arthritis of left hip Active Restless leg syndrome Active Neoplasm, uncertain whether benign or malignant Active Iron deficiency anemia Active Sepsis Active S/P insertion of iliac artery stent Activ e 03/29/25. LEFT common iliac artery balloon angioplasty and stent. Lifestream 8 mm x 37 mm stent. Paroxysmal atrial fibrillation Active COPD (chronic obstructive pu lmonary disease) Active Cardiac defibrillator in place Active GERD (gastroesophageal reflu x disease) Active Hospital discharge follow-up Active Hypomagnesemia Active Inactive/Resolved Problems Medical Problem Onset Date Status Comments Myocardial infarction (lateral wall) Reso lved AVM (arteriovenous malformat ion) of colon with hemorrhage Resolved UTI (urinary tract infection) Resolved UTI (urinary tract infection) Resolved On deep vein thrombosis (DVT) prophylaxis Resolved Sustained monomorphic ventricular tachycardia Resolved Carpal tunnel syndrome Resolved Wrist fracture, right Resolved Hx of blood clots Resolved Elevated troponin I level Resolved Stented coronary artery Resolved x4 Lumbar strain Resolved Wound infection Resolved Dizziness Resolved Black stools Resolved AVM (arteriovenous malformat ion) of stomach, acquired with hemorrhage Resolved Fracture of left wrist Resolved Anemia Resolved AVM (arteriovenous malformation) Resolved Generalized weakness Resolved Burn Resolved Cellulitis Resolved Cellulitis Resolved Fracture of toe of left foot Resolved Headache Resolved Headache Resolved Leukocytosis Resolved Leukocytosis Resolved Community acquired pneumonia Resolved Atypical chest pain Resolved Non-ST elevation CO (NSTEMI) Resolved Near syncope Resolved Encounter for removal of sutures Resolved Pyelonephritis Resolved Arthralgia of right hip Resolved Dark stools Resolved Vertigo Resolved Elevated INR Resolved Chest pain, rule out acute myocardial infarction Resolved History of GI bleed Resolved Acute UTI (urinary tract infection) Resol dorina COPD (chronic obstructive pulmonary disease) Resolved Left hip pain Resolved Acute blood loss anemia Resolved Melena Resolved Neck pain Resolved Left lower lobe pneumonia Resolved History of pulmonary embolus (PE) Resolve d Bronchitis Resolved Cervical muscle pain Resolved Chest pain Resolved Hemorrhoids Resolved Pneumonia Resolved Constipation Resolved Fall Resolved Obesity Resolved Phlebitis after infusion Resolved Laceration of right forearm Resolved Laceration of left thumb Resolved Generalized abdominal discomfort Resolved Medications Medication Status Dose Units Route Directions Qty Days St art Date Stop Date End Date Instructions Sertraline 25 mg tablet Discont inued 25 MG PO Daily February 20, 2025 7:44am February 24, 2025 10:23 am Ropinirole 2 mg tablet Discont inued 2 MG PO Daily at bedtime 90 February 20, 2025 7:44am March 31, 2025 11:25 am administer 1-3 hours before bedtime Quetiapine (Seroquel) 200 mg tablet Active 200 MG PO Daily at bedtime 90 February 24, 2025 10:22a m Sertraline 25 mg tablet Discont inued 25 MG PO Daily February 24, 2025 10:23a m March 21, 2025 2:35p m Sertraline 25 mg tablet Active 0 .ROUTE .COMPLEX March 21, 2025 2:35pm TAKE 1 TABLET BY MOUTH EVERY DAY Hydrocodone- Acetaminophe n 5-325 mg tablet Discont inued 5 - 325 MG PO EVERY 4-6 HOURS as needed for Pain January 03, 2018 1:00am March 31, 2018 11:14 am take 1 tablet by mouth every 6 hours if needed Aripiprazole 2 mg tablet Discont inued 2 MG PO Daily January 11, 2018 12:00a m [facility] 2017 11:29 pm Hydrocodone- Acetaminophe n (De Beque) 5-325 mg tablet Discont inued 1 - 2 TAB PO EVERY 4-6 HOURS as needed for Pain 50 January 14, 2018 [facility] 2017 11:29 pm Doxycycline Hyclate 100 mg tablet Discont inued 100 MG PO Twice daily 14 7 January 14, 2018 12:00a m March 31, 2018 11:14 am Pregabalin 50 mg capsule Discont inued 1 CAP PO Twice daily [facility] 2017 1:00am January 08, 2023 3:14p m Quetiapine (Seroquel) 50 mg tablet Discont inued 200 MG PO Daily at bedtime [facility] er 2017 1:00am Augus t 2023 6:43p m Oxycodone-Ac etaminophen 5-325 mg tablet Discont inued 1 TAB PO EVERY 4-6 HOURS as needed for pain 10 2018ua ry 2018 1:00a m Novua ry 2018 1:01a m Melatonin 5 mg Tablet Discont inued 5 MG PO Bedtime July 01, 2020 12:00a m March 25, 2023 6:05a m Aspirin 81 mg Tablet,Delay ed Release (Dr/Ec) Discont inued 81 MG PO Daily 30 30 2019 12:00a m January 08, 2023 3:15p m Nitroglyceri n 0.4 mg Tablet, Sublingual Active 0.4 MG SUBLIN GUAL Q5M as needed for Chest Pain 25 30 2019 12:00a m Lisinopril 10 mg tablet Discont inued 5 MG PO Daily 30 30 2019 2:05pm January 08, 2023 3:15p m Carvedilol (Coreg) 25 mg Tablet Discont inued 6.25 MG PO Twice daily 15 30 2019 2:16pm t 2023 6:41p m Clindamycin Hcl 150 mg capsule Discont inued 450 MG PO Three times daily 90 10 May 22, 2022 12:00a m January 08, 2023 3:10p m Hydrocodone- Acetaminophe n 5-325 mg tablet Discont inued 1 TAB PO Q6H as needed for pain 10 3 Novemb er 2021January 08, 2023 3:11p m Aspirin 81 mg tablet,delay ed release (DR/EC) Active 81 MG PO Every morning January 08, 2023 3:15pm Lisinopril 10 mg tablet Discont inued 5 MG PO Every morning January 08, 2023 3:15pm 2024 2:06p m Spironolacto ne 25 mg Tablet Active 25 MG PO Daily at bedtime January 08, 2023 1:00am Ferrous Sulfate (Ferosul) 325 mg (65 mg iron) tablet Discont inued 325 MG PO Every morning January 08, 2023 1:00am Augus t 2023 6:42p m Canagliflozi n (Invokana) 300 mg Tablet Discont inued 300 MG PO Every morning January 08, 2023 1:00am 2024 2:06p m Pregabalin 25 mg capsule Discont inued 75 MG PO Three times daily January 08, 2023 1:00am Augus t 2023 6:42p m Escitalopram Oxalate (Lexapro) 5 mg Tablet Discont inued MG PO Daily January 29, 2023 12:00a m March 25, 2023 6:02a m Hydrocodone- Acetaminophe n 5-325 mg tablet Discont inued 1 - 2 TAB PO EVERY 4-6 HOURS as needed for pain 30 4 January 29, 2023 March 25, 2023 6:02a m Doxycycline Hyclate 100 mg tablet Discont inued 100 MG PO Twice daily 14 7 January 29, 2023 12:00a m March 25, 2023 6:01a m Prednisone 20 mg tablet Discont inued 20 MG PO Twice daily 10 5 March 16, 2023 12:00a m March 25, 2023 6:05a m Fluticasone Propionate (Flonase Allergy Relief) 50 mcg/actuatio n spray,suspen radu Discont inued 1 SPRAY INTRAN SHANNON Q12H 9.9 March 16, 2023 12:00a m March 25, 2023 6:02a m administer into each nostril Albuterol Sulfate 2.5 mg /3 mL (0.083 %) Solution For Nebulization Discont inued 2.5 MG INHALA TION EVERY 4-6 HOURS as needed for Shortness Of Breath Or Wheezing March 16, 2023 12:00a m March 25, 2023 6:11a m Famotidine 20 mg tablet Discont inued 20 MG PO Bedtime as needed for Indigestion 2022 12:00a m January 30, 2025 1:05p m Albuterol Sulfate 90 mcg/actuatio n HFA aerosol inhaler Active 1 INH INHALA TION Q4H as needed for Shortness Of Breath 2022 12:00a m Omeprazole 40 mg capsule,tere yed release(DR/E C) Discont inued 40 MG PO Twice daily 2022 12:00a m March 26, 2025 12:40 pm Doxycycline Hyclate 100 mg capsule Discont inued 100 MG PO Twice daily 20 10 2023 1:00am Augus t 2023 6:42p m Azithromycin (Zithromax) 250 mg tablet Discont inued 250 MG PO Daily June 05, 2024 12:00a m Nov ry 2024 2:12p m one daily x 4 days, first dose given in ER Cyclobenzapr ine 10 mg tablet Discont inued 10 MG PO Three times daily as needed for Muscle Spasm 10 Augobe r 2023 12:00a m Nov 2024 2:06p m Hydrocodone- Acetaminophe n 5-325 mg tablet Discont inued 1 TAB PO EVERY 4-6 HOURS as needed for Pain 7 2 Augobe r 2023 2024 2:12p m Cyclobenzapr ine 10 mg tablet Discont inued 10 MG PO Twice daily as needed for Muscle Spasm 2017 1:00am [facility] 2017 11:29 pm Metformin 500 mg tablet Discont inued 1000 MG PO Twice daily 2017 1:00am January 08, 2023 3:13p m Carvedilol (Coreg) 25 mg Tablet Discont inued 6.25 MG PO Twice daily 2017 1:00am [facility] 2019 2:16p m Warfarin 2.5 mg tablet Discont inued 2.5 MG PO Daily at bedtime 2017 1:00am Nov 2024 2:07p m Citalopram 20 mg tablet Discont inued 60 MG PO Daily 2017 1:00am January 29, 2023 7:03a m Lorazepam 0.5 mg tablet Discont inued 0.5 TAB PO Daily as needed for Anxiety 2017 1:00am March 25, 2023 6:04a m Meclizine 25 mg tablet Discont inued 25 MG PO Twice daily as needed for Vertigo 2017 1:00am March 26, 2025 1:51p m Lisinopril 10 mg tablet Discont inued 10 MG PO Daily 2017 1:00am [facility] 2019 2:21p m Lovastatin 20 mg tablet Discont inued 20 MG PO Bedtime 2017 1:00am Augus t 2023 6:42p m Ranolazine (Ranexa) 500 mg tablet extended release 12 hr Discont inued 500 MG PO Twice daily 2017 1:00am 2024 2:07p m Oxycodone-Ac etaminophen (Percocet) 5-325 mg tablet Discont inued 1 TAB PO EVERY 4-6 HOURS as needed for pain 14 2017January 03, 2018 11:48 pm Promethazine 25 mg Tablet Discont inued 25 MG PO Q6H as needed for Nausea March 31, 2018 12:00a m [facility] 2017 11:29 pm Warfarin 2.5 mg tablet Discont inued 1 MG PO As Directed 2017 12:00a m April 07, 2019 2:41p m Polyethylene Glycol 3350 (Miralax) 17 gram Powder In Packet Discont inued 17 GM PO Daily as needed for Constipatio n 1 2017 12:00a m 2018 6:33p m mix into 4-8 oz. of any hot/cold/room temp. beverage; use immediately Hydrocodone- Acetaminophe n 5-325 mg tablet Discont inued 1 TAB PO Q6H as needed for Pain 2018 1:00am March 29, 2022 8:06p m Lansoprazole (Prevacid) 30 mg Capsule,Tere yed Release(Dr/E c) Discont inued 30 MG PO Every morning 2018 1:00am [facility] 2022 3:32p m Ranolazine (Ranexa) 500 mg tablet extended release 12 hr Discont inued 2018 1:00am 2018 6:35p m Enoxaparin 120 mg/0.8 mL syringe Discont inued 120 MG SUBCUT Daily 2018 1:00am January 15, 2019 7:18p m Prednisone 20 mg tablet Discont inued 40 MG PO Daily January 15, 2019 12:00a m April 07, 2019 2:40p m administer with food or milk Flexiril Discont inued 10 MG PO Twice daily as needed for Muscle Pain April 07, 2019 12:00a m January 31, 2021 6:48a m Doxycycline Hyclate 100 mg tablet Discont inued 100 MG PO Twice daily 14 7 Septem 2019 12:00a m Novem tomas 2019 5:38p m Ferrous Sulfate 325 mg (65 mg iron) tablet Discont inued 325 MG PO Daily Novemb er 2019 1:00am March 29, 2022 8:06p m Nitrofuranto in Macrocrystal 100 mg capsule Discont inued 100 MG PO Twice daily 10 5 Novemb er 2019 1:00am January 31, 2021 6:49a m must administer with a meal/food Cyclobenzapr ine 10 mg tablet Discont inued 10 MG PO Twice daily January 31, 2021 12:00a m January 08, 2023 3:11p m Solifenacin 5 mg tablet Discont inued 5 MG PO Daily at bedtime January 31, 2021 12:00a m March 29, 2022 8:07p m Hydrocodone- Acetaminophe n 5-325 mg tablet Discont inued 1 TAB PO Q6H as needed for pain 10 3 February 21, 2022 March 29, 2022 8:06p m Lidocaine 5 % adhesive patch,medica mat Discont inued 1 PATCH TOPICA L Q24H 15 February 21, 2022 12:00a m March 29, 2022 8:06p m leave on most painful area for up to 12 hrs Hydrocodone- Acetaminophe n 5-325 mg tablet Discont inued 1 TAB PO Three times daily as needed for pain 12 4 March 29, 2022 January 08, 2023 3:11p m Pantoprazole (Protonix) 40 mg tablet,delay ed release (DR/EC) Discont inued 40 MG PO Daily 14 May 27, 2022 12:00a m January 08, 2023 3:14p m Sucralfate (Carafate) 1 gram tablet Discont inued 1 GM PO Q6H 56 May 27, 2022 12:00a m January 08, 2023 3:15p m Amoxicillin- Pot Clavulanate 875-125 mg tablet Discont inued 1 TAB PO Twice daily 14 7 Novemb 2021 1:00am January 08, 2023 3:09p m Hydrocodone- Acetaminophe n 5-325 mg tablet Discont inued 1 TAB PO EVERY 4-6 HOURS as needed for Pain 7 3 January 12, 2023 January 29, 2023 7:04a m Lansoprazole 30 mg capsule,tere yed release(DR/E C) Discont inued MG March 25, 2023 12:00a m March 25, 2023 6:11a m Solifenacin (Vesicare) 10 mg Tablet Discont inued 10 MG PO Daily March 25, 2023 12:00a m Augus t 2023 6:43p m Lurasidone (Latuda) 20 mg Tablet Discont inued 40 MG PO Daily March 25, 2023 12:00a m Janua ry 2024 2:06p m must administer with food (at least 350 calories) Quetiapine (Seroquel) 200 mg tablet Discont inued 200 MG PO Daily at bedtime January 16, 2024 12:00a m Janua ry 2024 2:07p m Cephalexin 500 mg capsule Discont inued 500 MG PO Twice daily 21 08February 19, 2024 12:00a m Augus t 2023 6:42p m Prednisone 20 mg tablet Discont inued 40 MG PO Daily May 31, 2024 12:00a m Augus t 2023 6:42p m administer with food or milk Tramadol 50 mg tablet Discont inued 50 MG PO Every 8 hours as needed for pain 6 May 31, 2024 12:00a m Augus t 2023 6:43p m Baclofen 10 mg tablet Active 5 - 10 MG PO Three times daily as needed for muscle spasm March 26, 2025 12:00a m Lansoprazole 30 mg capsule,tere yed release(DR/E C) Active 30 MG PO Daily March 26, 2025 12:00a m Rosuvastatin 20 mg tablet Active 20 MG PO Daily March 26, 2025 12:00a m Mexiletine 150 mg capsule Active 150 MG PO Every 8 hours March 27, 2025 12:00a m Ascorbic Acid (Vitamin C) (Vitamin C) 500 mg Tablet Active 500 MG PO Daily 90 March 30, 2025 12:00a m Take with iron pill. Ferrous Sulfate 324 mg (65 mg iron) Tablet,Delay ed Release (Dr/Ec) Active 324 MG PO Every 48 hours 45 90 March 30, 2025 12:00a m Ropinirole 2 mg tablet Discont inued 2 MG PO Daily at bedtime March 31, 2025 11:25a m April 04, 2025 10:26 am administer 1-3 hours before bedtime Ropinirole 2 mg tablet Discont inued 2 MG PO Daily at bedtime y 2024 1:00am February 20, 2025 7:44a m administer 1-3 hours before bedtime Amiodarone 200 mg tablet Active 200 MG PO Daily January 30, 2025 12:00a m Lisinopril 5 mg tablet Active 5 MG PO Daily January 30, 2025 12:00a m Rivaroxaban (Xarelto) 10 mg tablet Active 10 MG PO Daily January 30, 2025 12:00a m Quetiapine (Seroquel) 200 mg tablet Discont inued 200 MG PO Daily at bedtime January 30, 2025 1:15pm February 24, 2025 10:22 am Sertraline 25 mg tablet Discont inued 25 MG PO Daily January 30, 2025 12:00a m February 20, 2025 7:44a m Ropinirole 1 mg tablet Active 1 MG PO Three times daily 270 April 04, 2025 12:00a m Quetiapine (Seroquel) 200 mg tablet Discont inued 200 MG PO Daily Novemb er 2023 1:00am January 30, 2025 1:16p m Lisinopril 2.5 mg tablet Discont inued 5 MG PO Daily Novemb er 2023 1:00am March 26, 2025 12:39 pm Warfarin 2.5 mg tablet Discont inued 2.5 MG PO Daily Novemb er 2023 1:00am Novua 2024 12:49 pm Ranolazine 500 mg tablet extended release 12 hr Active 500 MG PO Twice daily Novemb er 2023 1:00am Canagliflozi n (Invokana) 300 mg tablet Active [facility] Rosuvastatin 5 mg tablet Discont inued 10 MG [facility] 1:00am March 26, 2025 1:52p m Metoprolol Succinate 25 mg tablet extended release 24 hr Active 25 MG PO Daily [facility] 2023 1:00am Cyclobenzapr ine 10 mg tablet Discont inued 10 MG PO Daily at [facility] 1:00am January 30, 2025 1:05p m Mexiletine 150 mg capsule Discont inued 150 MG PO Every 8 hours [facility] 2023 1:00am March 26, 2025 1:44p m Lurasidone (Latuda) 60 mg tablet Discont inued 60 MG PO Daily [facility] 2023 1:00am January 30, 2025 1:05p m must administer with food (at least 350 calories) Benzonatate 200 mg capsule Active 200 MG PO Three times daily as needed for cough 31 08April 07, 2025 12:00a m Immunizations Immunization Event Date Not Given Reason Dose Number [employer] Lot Number Vaccine Information Statement (VIS) Detail COVID-19 mRNA-1273 (Moderna) February 19, 2021 COVID-19 mRNA-1273 (Moderna) June 21, 2021 Pneumococcal Polysacc. Vaccine, 23 valent April 16, 2020 Quadrivalent Influenza August 24, 2017 Quadrivalent Influenza September 14, 2018 Zoster Vaccine Recombinant, Adjuvanted August 03, 2019 Zoster Vaccine Recombinant, Adjuvanted April 16, 2020 Tetanus, Diphtheria, Pertussis (Tdap) June 10, 2021 [id number] Tetanus, Diphtheria, Pertussis (Tdap) August 02, 2019 Tetanus, Diphtheria, Pertussis (Tdap) April 16, 2020 Trivalent Influenza Vaccine June 21, 2021 Medical Equipment Device Date Implanted Device Details CANCELLOUS 7.5 CRUSHED January 14, 2018 K-WIRE 1.25MM X 150MM W/TROC January 14, 2018 K-WIRE 1.25MM X 150MM W/TROC January 14, 2018 K-WIRE 1.25MM X 150MM W/TROC January 14, 2018 PLATE 2.4MM VA-LCP VOLAR LEFT January 14, 2018 SCREW 2.4MM LOCKING VARIABLE January 14, 2018 SCREW 2.4MM LOCKING VARIABLE January 14, 2018 SCREW 2.4MM LOCKING VARIABLE January 14, 2018 SCREW 2.4MM LOCKING VARIABLE January 14, 2018 SCREW CORTEX 2.7MM X 14MM January 14, 2018 SCREW CORTEX 2.7MM X 24MM January 14, 2018 SCREW LOCKING 2.4MM X 12MM January 14, 2018 SCREW LOCKING 2.4MM X 12MM January 14, 2018 SCREW LOCKING 2.4MM X 14MM January 14, 2018 Iliofemoral artery endovascu lar stent-graft March 29, 2025 SANDER: [id number] Issuing Agency: [facility] Device Id: [id number] Expiration Date: 2027-05-01 Lot Number: [id number] Procedures Procedure Date Performed Status CT head/brain wo con March 26, 2025 11:51am comp leted XR chest 1V portable March 26, 2025 11:51am comp leted XR hip BI w [id number] March 26, 2025 11:51am complet ed US pelvic complete March 27, 2025 5:04pm complet ed CT chest w con March 28, 2025 7:42am completed US arterial pvr rest LE March 28, 2025 8:19am co mpleted CT head/brain wo con March 30, 2025 12:00am comp leted XR hand RT 2V March 30, 2025 12:02am completed XR hand RT 2V March 30, 2025 9:07pm completed Blood Culture March 26, 2025 completed Blood Culture March 26, 2025 completed Nasal Screen MRSA/MSSA March 28, 2025 completed Respiratory Panel (PCR) March 26, 2025 complete d IR Angiogram Left Leg (Left) March 29, 2025 7:35 am completed Relevant Diagnostic Tests and/or Laboratory Data Laboratory Results Test Date/Time Result Interpretation Reference Range Result Comment Performing Site Lactic Acid Level January 08, 2025 3:21pm 2.3 mmol/L Above upper panic limits 0.4-2.0 RESULTS CALLED TO ERENDIRA ZAVALETA AT 1557 B-Type Natriuretic Peptide March 9th, 2025 3:21pm 2641.0 pg/mL Above upper panic limits <=900.0 RESULTS CALLED TO ERENDIRA ZAVALETA AT 1556 Magnesium Level January 08, 2025 3:21pm 1.4 mg/dL Below low normal 1.8-2.4 Anion Gap January 08, 2025 3:21pm 14.7 Prothromb Time International Ratio January 08, 2025 3:21pm 0.97 DESIRED INR:2.0-3.0 CONDITIONS NOT LISTED BELOW2.5-3.5 FOR PROSTHETIC HEART VALVE REPLACEMENT2.5-3 .5 RECURRENT THROMBOSIS Basophils # (Auto) January 08, 2025 3:21pm 0.0 10 3/uL 0.0-0.1 Venous Blood Partial Pressure CO2 January 08, 2025 3:48pm 37.9 mm[Hg] Below low normal 40.0-52.0 Troponin I High Sensitivity January 08, 2025 5:04pm 36.2 pg/mL 4.0-51.3 CUT-OFF POINTS HAVE BEEN ESTABLISHED BASED ON THE FOURTHUNIVERSAL DEFINITION OF MYOCARDIAL INFARCTION. THE UPPERREFERENCE LIMIT (URL) OF TROPONIN, DEFINED THE 99THPERCENTILE OF cTnI DISTRIBUTION IN A REFERENCE POPULATION,HAS BEEN CONFIRMED THE DECISION THRESHOLD FOR MIDIAGNOSIS.99TH PERCENTILE = 51.4 PG/MLNOTE: HIGH-SENSITIVITY TROPONIN ASSAY IS NOT INTENDED TO BEUSED IN ISOLATION BUT SHOULD BE INTERPRETED IN CONJUNCTIONWITH OTHER DIAGNOSTIC AND CLINICAL INFORMATION. Hemoglobin February 10, 2025 12:54pm 11.0 g/dL Below low normal 12.0-16.0 Anion Gap March 02, 2025 9:52am 14.8 Basophils # (Auto) March 25, 2025 12:36am 0.1 10 3/uL 0.0-0.1 Anisocytosis March 25, 2025 11:40pm 1+ Lactic Acid Level March 25, 2025 11:40pm 4.1 mmol/L Above upper panic limits 0.4-2.[address] JULIANNE MICHELLE at 0033 Magnesium Level March 25, 2025 11:40pm 1.5 mg/dL Below low normal 1.8-2.4 Anion Gap March 25, 2025 11:40pm 16.1 SARS-CoV-2 Ag (CV2AG) March 26, 2025 1:55am NEGATIVE NEGATIVE This test has not been FDA cleared or approved, but has beenauthorized by the FDA under an Emergency Use Authorization(EU A) for use by authorized laboratories certified underIA that meet the requirements to perform moderate or highcomplexity testing. This test has been authorized only forthe detection of proteins from SARS-CoV-2, not for any otherviruses or pathogens. The emergency use of this test isauthorized for the duration of the declaration thatcircumstance s exist justifying the authorization ofemergency use of in vitro diagnostic tests for detectionand/or diagnosis of Covid-19 under section 564(b)(1) of theAct, 21 U.S.C. 360bbb-3(b)(1), unless the declaration isterminated or authorization is revoked sooner. Lactic Acid Level March 26, 2025 2:50am 2.1 mmol/L Above upper panic limits 0.4-2.0 RESULTS CALLED TO LORETTA LAKHANI RN at 0329 Magnesium Level April 04, 2025 1:45am 1.6 mg/dL Below low normal 1.8-2.4 Anion Gap April 04, 2025 1:45am 13.9 Basophils # (Auto) April 04, 2025 1:45am 0.1 10 3/uL 0.0-0.1 Albumin/Globul in Ratio January 08, 2025 3:21pm 0.6 Prothrombin Time January 08, 2025 3:21pm 10.3 sec 9.0-11.6 Basophils (%) (Auto) January 08, 2025 3:21pm 0.1 % Below low normal 0.2-2.0 Venous Blood pH January 08, 2025 3:48pm 7.388 7.330-7.43 0 BUN/Creatinine Ratio March 02, 2025 9:52am 11.9 Basophils (%) (Auto) March 25, 2025 12:36am 0.8 % 0.2-2.0 Reactive Lymphocytes March 25, 2025 11:40pm 2.23 March 25, 2025 11:40pm 6.0 null Albumin/Globul in Ratio March 25, 2025 11:40pm 0.8 BUN/Creatinine Ratio April 04, 2025 1:45am 7.2 Basophils (%) (Auto) April 04, 2025 1:45am 0.7 % 0.2-2.0 Albumin January 08, 2025 3:21pm 2.5 g/dL Below low normal 3.4-5.0 Eosinophils # (Auto) January 08, 2025 3:21pm 0.0 10 3/uL 0.0-0.7 Blood Urea Nitrogen March 02, 2025 9:52am 8.0 mg/dL 7.0-18.0 Eosinophils # (Auto) March 25, 2025 12:36am 0.2 10 3/uL 0.0-0.7 Absolute Basophils (Manual) March 25, 2025 11:40pm 0.00 10 3/uL 0.00-0.10 Albumin March 25, 2025 11:40pm 3.2 g/dL Below low normal 3.4-5.0 Blood Urea Nitrogen April 04, 2025 1:45am 6.0 mg/dL Below low normal 7.0-18.0 Eosinophils # (Auto) April 04, 2025 1:45am 0.3 10 3/uL 0.0-0.7 Alkaline Phosphatase January 08, 2025 3:21pm 46 U/L 46-116 Eosinophils (%) (Auto) January 08, 2025 3:21pm 0.3 % Below low normal 0.9-7.0 Calcium Level March 02, 2025 9:52am 8.9 mg/dL 8.5-10.1 Eosinophils (%) (Auto) March 25, 2025 12:36am 2.3 % 0.9-7.0 Basophils % March 25, 2025 11:40pm 0.0 % Below low normal 0.2-2.0 Alkaline Phosphatase March 25, 2025 11:40pm 64 U/L 46-116 Calcium Level April 04, 2025 1:45am 8.7 mg/dL 8.5-10.1 Eosinophils (%) (Auto) April 04, 2025 1:45am 2.3 % 0.9-7.0 Alanine Aminotransfera se (ALT/SGPT) January 08, 2025 3:21pm 28 U/L 14-59 Hematocrit January 08, 2025 3:21pm 32.4 % Below low normal 36.0-48.0 Chloride Level March 02, 2025 9:52am 100 mmol/L 98-107 Eosinophils # (Manual) March 25, 2025 11:40pm 0.00 10 3/uL 0.00-0.70 Alanine Aminotransfera se (ALT/SGPT) March 25, 2025 11:40pm 52 U/L 14-59 Chloride Level April 04, 2025 1:45am 101 mmol/L 98-107 Hematocrit April 04, 2025 1:45am 24.9 % Below low normal 36.0-48.0 Aspartate Amino Transf (AST/SGOT) January 08, 2025 3:21pm 52 U/L Above high normal 15-37 Hemoglobin January 08, 2025 3:21pm 10.8 g/dL Below low normal 12.0-16.0 Carbon Dioxide Level March 02, 2025 9:52am 25.2 mmol/L 21.0-32.0 Eosinophils % March 25, 2025 11:40pm 0.0 % Below low normal 0.9-7.0 Aspartate Amino Transf (AST/SGOT) March 25, 2025 11:40pm 44 U/L Above high normal 15-37 Carbon Dioxide Level April 04, 2025 1:45am 25.6 mmol/L 21.0-32.0 Hemoglobin April 04, 2025 1:45am 7.9 g/dL Below low normal 12.0-16.0 BUN/Creatinine Ratio January 08, 2025 3:21pm 14.5 Immature Granulocyte # (Auto) January 08, 2025 3:21pm 0.04 10 3/uL Above high normal 0.00-0.03 Creatinine March 02, 2025 9:52am 0.67 mg/dL 0.55-1.02 Immature Granulocyte # (Auto) March 25, 2025 12:36am 0.03 10 3/uL 0.00-0.03 Hypochromasia March 25, 2025 11:40pm 1+ BUN/Creatinine Ratio March 25, 2025 11:40pm 4.8 Creatinine April 04, 2025 1:45am 0.83 mg/dL 0.55-1.02 Immature Granulocyte # (Auto) April 04, 2025 1:45am 0.08 10 3/uL Above high normal 0.00-0.03 Blood Urea Nitrogen January 08, 2025 3:21pm 12.0 mg/dL 7.0-18.0 Immature Granulocyte % (Auto) January 08, 2025 3:21pm 0.3 % 0.0-0.5 Estimated GFR () March 02, 2025 9:52am >60 >=60 mL/min/1.7 3m 2 Immature Granulocyte % (Auto) March 25, 2025 12:36am 0.3 % 0.0-0.5 Lymphocytes # (Manual) March 25, 2025 11:40pm 5.22 10 3/uL Above high normal 1.20-3.80 Blood Urea Nitrogen March 25, 2025 11:40pm 3.0 mg/dL Below low normal 7.0-18.0 Estimated GFR () April 04, 2025 1:45am >60 >=60 mL/min/1.7 3m 2 Immature Granulocyte % (Auto) April 04, 2025 1:45am 0.7 % Above high normal 0.0-0.5 Calcium Level January 08, 2025 3:21pm 8.8 mg/dL 8.5-10.1 Lymphocytes # (Auto) January 08, 2025 3:21pm 1.5 10 3/uL 1.2-3.8 Estimated GFR (Non- March 02, 2025 9:52am >60 >=60 mL/min/1.7 3m 2 Lymphocytes # (Auto) March 25, 2025 12:36am 3.4 10 3/uL 1.2-3.8 Lymphocytes % March 25, 2025 11:40pm 14.0 % Below low normal 20.5-60.0 Calcium Level March 25, 2025 11:40pm 8.7 mg/dL 8.5-10.1 Estimated GFR (Non- April 04, 2025 1:45am >60 >=60 mL/min/1.7 3m 2 Lymphocytes # (Auto) April 04, 2025 1:45am 3.8 10 3/uL 1.2-3.8 Chloride Level January 08, 2025 3:21pm 94 mmol/L Below low normal 98-107 Lymphocytes (%) (Auto) January 08, 2025 3:21pm 12.5 % Below low normal 20.5-60.0 Glucose Level March 02, 2025 9:52am 122 mg/dL Above high normal 74-106 Lymphocytes (%) (Auto) March 25, 2025 12:36am 35.9 % 20.5-60.0 Monocytes # (Manual) March 25, 2025 11:40pm 0.74 10 3/uL 0.30-0.80 Chloride Level March 25, 2025 11:40pm 95 mmol/L Below low normal 98-107 Glucose Level April 04, 2025 1:45am 148 mg/dL Above high normal 74-106 Lymphocytes (%) (Auto) April 04, 2025 1:45am 33.8 % 20.5-60.0 Carbon Dioxide Level January 08, 2025 3:21pm 23.6 mmol/L 21.0-32.0 Mean Corpuscular Hemoglobin January 08, 2025 3:21pm 25.4 pg Below low normal 26.7-34.0 Potassium Level March 02, 2025 9:52am 4.0 mmol/L 3.5-5.1 Monocytes % March 25, 2025 11:40pm 2.0 % 1.7-12.0 Carbon Dioxide Level March 25, 2025 11:40pm 21.5 mmol/L 21.0-32.0 Potassium Level April 04, 2025 1:45am 3.5 mmol/L 3.5-5.1 Mean Corpuscular Hemoglobin April 04, 2025 1:45am 22.8 pg Below low normal 26.7-34.0 Creatinine January 08, 2025 3:21pm 0.83 mg/dL 0.55-1.02 Mean Corpuscular Hemoglobin Concent January 08, 2025 3:21pm 33.3 g/dL 29.9-35.2 Sodium Level March 02, 2025 9:52am 136 mmol/L 136-145 Segmented Neutrophils # (Manual) March 25, 2025 11:40pm 29.09 10 3/uL Above high normal 1.4-6.5 Creatinine March 25, 2025 11:40pm 0.62 mg/dL 0.55-1.02 Sodium Level April 04, 2025 1:45am 137 mmol/L 136-145 Mean Corpuscular Hemoglobin Concent April 04, 2025 1:45am 31.7 g/dL 29.9-35.2 Estimated GFR () January 08, 2025 3:21pm >60 >=60 mL/min/1.7 3m 2 Mean Corpuscular Volume January 08, 2025 3:21pm 76.2 fL Below low normal 81.0-99.0 Segmented Neutrophils March 25, 2025 11:40pm 78.0 Above high normal 43.0-75.0 Estimated GFR () March 25, 2025 11:40pm >60 >=60 mL/min/1.7 3m 2 Mean Corpuscular Volume April 04, 2025 1:45am 72.0 fL Below low normal 81.0-99.0 Estimated GFR (Non- January 08, 2025 3:21pm >60 >=60 mL/min/1.7 3m 2 Monocytes # (Auto) January 08, 2025 3:21pm 0.6 10 3/uL 0.3-0.8 Monocytes # (Auto) March 25, 2025 12:36am 0.6 10 3/uL 0.3-0.8 Estimated GFR (Non- March 25, 2025 11:40pm >60 >=60 mL/min/1.7 3m 2 Monocytes # (Auto) April 04, 2025 1:45am 0.8 10 3/uL 0.3-0.8 Globulin January 08, 2025 3:21pm 3.9 g/dL Monocytes (%) (Auto) January 08, 2025 3:21pm 5.4 % 1.7-12.0 Monocytes (%) (Auto) March 25, 2025 12:36am 6.6 % 1.7-12.0 Globulin March 25, 2025 11:40pm 4.0 g/dL Monocytes (%) (Auto) April 04, 2025 1:45am 6.8 % 1.7-12.0 Glucose Level January 08, 2025 3:21pm 140 mg/dL Above high normal 74-106 Mean Platelet Volume January 08, 2025 3:21pm 10.4 fL 9.5-13.5 Glucose Level March 25, 2025 11:40pm 103 mg/dL 74-106 Mean Platelet Volume April 04, 2025 1:45am 10.0 fL 9.5-13.5 Potassium Level January 08, 2025 3:21pm 3.3 mmol/L Below low normal 3.5-5.1 Neutrophils # (Auto) January 08, 2025 3:21pm 9.7 10 3/uL Above high normal 1.4-6.5 Neutrophils # (Auto) March 25, 2025 12:36am 5.1 10 3/uL 1.4-6.5 Potassium Level March 25, 2025 11:40pm 3.6 mmol/L 3.5-5.1 Neutrophils # (Auto) April 04, 2025 1:45am 6.2 10 3/uL 1.4-6.5 Sodium Level January 08, 2025 3:21pm 129 mmol/L Below low normal 136-145 Neutrophils (%) (Auto) January 08, 2025 3:21pm 81.4 % Above high normal 43.0-75.0 Neutrophils (%) (Auto) March 25, 2025 12:36am 54.1 % 43.0-75.0 Sodium Level March 25, 2025 11:40pm 129 mmol/L Below low normal 136-145 Neutrophils (%) (Auto) April 04, 2025 1:45am 55.7 % 43.0-75.0 Total Bilirubin January 08, 2025 3:21pm 0.2 mg/dL 0.2-1.0 Platelet Count January 08, 2025 3:21pm 202 10 3/uL 150-450 Total Bilirubin March 25, 2025 11:40pm 0.5 mg/dL 0.2-1.0 Platelet Count April 04, 2025 1:45am 476 10 3/uL Above high normal 150-450 Total Protein January 08, 2025 3:21pm 6.4 g/dL 6.4-8.2 Red Blood Count January 08, 2025 3:21pm 4.25 10 6/uL 4.20-5.40 Total Protein March 25, 2025 11:40pm 7.2 g/dL 6.4-8.2 Red Blood Count April 04, 2025 1:45am 3.46 10 6/uL Below low normal 4.20-5.40 Red Cell Distribution Width January 08, 2025 3:21pm 16.7 % Above high normal 11.0-15.0 Red Cell Distribution Width April 04, 2025 1:45am 20.5 % Above high normal 11.0-15.0 Corrected White Blood Count January 08, 2025 3:21pm 11.9 10 3/uL Above high normal 4.0-11.0 Corrected White Blood Count April 04, 2025 1:45am 11.2 10 3/uL Above high normal 4.0-11.0 Corrected White Blood Count March 31, 2025 4:27am 8.6 10*3/uL 3.8-11.[address] [facility] [id number] [address] [place] [id number] Uncorrected WBC Count March 31, 2025 4:27am 8.6 10*3/uL 3.8-11.[address] [facility] [id number] [address] [facility] [address] Red Blood Count March 31, 2025 4:27am 3.25 10*6/uL Below low normal 3.60-5.[address] [facility] [id number] [address] [place] [id number] Hemoglobin March 31, 2025 4:27am 7.3 g/dL Below low normal 11.8-15.[address] [facility] [id number] [address] [facility] [address] Hematocrit March 31, 2025 4:27am 22.7 % Below low normal 34.0-46.[address] [facility] [id number] [address] [facility] [address] Mean Corpuscular Volume March 31, 2025 4:27am 69.7 fL Below low normal 80-[address] [facility] [id number] [address] [facility] [address] Mean Corpuscular Hemoglobin March 31, 2025 4:27am 22.4 pg Below low normal 24.7-34.[address] [facility] [id number] [address] [place] [id number] Mean Corpuscular Hemoglobin Concent March 31, 2025 4:27am 32.1 g/dL 32.0-35.[address] [facility] [id number] [address] [place] [id number] Red Cell Distribution Width March 31, 2025 4:27am 21.1 % Above high normal 11.9-15.[address] [facility] [id number] [address] [facility] [address] Platelet Count March 31, 2025 4:27am 326 10*3/uL 150-[address] [facility] [id number] [address] [facility] [address] Mean Platelet Volume March 31, 2025 4:27am 8.3 fL 6.3-10.[address] [facility] [id number] [address] [place] [id number] Neutrophils (%) (Auto) March 31, 2025 4:27am 57.6 % . [facility] [id number] [address] [facility] [address] Lymphocytes (%) (Auto) March 31, 2025 4:27am 27.7 % . [facility] [id number] [address] [place] [id number] Monocytes (%) (Auto) March 31, 2025 4:27am 11.1 % . [facility] [id number] [address] [place] [id number] Eosinophils (%) (Auto) March 31, 2025 4:27am 2.7 % . [facility] [id number] [address] [facility] [address] Basophils (%) (Auto) March 31, 2025 4:27am 0.9 % . [facility] [id number] [address] [facility] [address] Nucleated RBC Relative Count (auto) March 31, 2025 4:27am 0.3 /100{WBC} 0-0.[address] [facility] [id number] [address] [place] [id number] Neutrophils # (Auto) March 31, 2025 4:27am 5.0 10*3/uL 1.8-7.[address] [facility] [id number] [address] [place] [id number] Lymphocytes # (Auto) March 31, 2025 4:27am 2.4 10*3/uL 1.00-4.8 [facility] [id number] [address] [place] [id number] Monocytes # (Auto) March 31, 2025 4:27am 1.0 10*3/uL Above high normal 0.0-0.8 [facility] [id number] [address] [facility] [place] [address] Eosinophils # (Auto) March 31, 2025 4:27am 0.2 10*3/uL 0.0-0.[address] [facility] [id number] [address] [facility] [place] [address] Basophils # (Auto) March 31, 2025 4:27am 0.1 10*3/uL 0.0-0.[address] [facility] [id number] [address] [facility] [place] [address] Red Blood Cell Morphology March 31, 2025 4:27am N/A [facility] [id number] [address] [facility] [place] [address] Polychromasia March 31, 2025 4:27am Moderate [facility] [id number] [address] [facility] [place] [address] Hypochromasia March 31, 2025 4:27am Moderate [facility] [id number] [address] [facility] [place] [address] Poikilocytosis March 31, 2025 4:27am Slight [facility] [id number] [address] [facility] [place] [address] Anisocytosis March 31, 2025 4:27am Moderate [facility] [id number] [address] [facility] [place] [address] Microcytosis March 31, 2025 4:27am Slight [facility] [id number] [address] [facility] [place] [address] Schistocytes March 31, 2025 4:27am Slight [facility] [id number] [address] [facility] [place] [address] Target Cells March 31, 2025 4:27am Slight [facility] [id number] [address] [facility] [place] [address] Ovalocytes March 31, 2025 4:27am Slight [facility] [id number] [address] [facility] [place] [address] Rouleau March 31, 2025 4:27am Slight [facility] [id number] [address] [facility] [place] [address] Platelet Estimate March 31, 2025 4:27am Normal Normal [facility] [id number] [address] [facility] [place] [address] Platelet Morphology Comment March 31, 2025 4:27am N/A [facility] [id number] [address] [place], [place] [address] Large Platelets March 31, 2025 4:27am Slight [facility] [id number] [address] [place], [place] [address] Percent Reticulocyte Count March 28, 2025 4:37am 1.8 % Above high normal 0.5-1.[address] [facility] [id number] [address] [place], [place] [address] Absolute Reticulocyte Count March 28, 2025 4:37am 0.059 10*6/uL 0.024-0.[address] [facility] [id number] [address] [place], [place] [address] Glucose Level March 31, 2025 4:27am 79 mg/dL 70-100 ADA recommended reference rangeRandom Glucose Reference Range is dependent on time and content of last meal. Glucose of more than 200 mg/dL in a nonstressed, ambulatory subject supports the diagnosis of Diabetes Mellitus. [facility] [id number] [address] [place], [place] [id number] Blood Urea Nitrogen March 31, 2025 4:27am 11 mg/dL 7-[address] [facility] [id number] [address] [place], [place] [id number] Creatinine March 31, 2025 4:27am 0.48 mg/dL Below low normal 0.60-1.[address] [facility] [id number] [address] [place], [place] [id number] Estimated GFR (CKD-EPI) March 31, 2025 4:27am > 60.0 mL/Min [facility] [id number] [address] [place], [place] [id number] Sodium Level March 31, 2025 4:27am 134 mmol/L Below low normal 136-[address] [facility] [id number] [address] [place], [place] [id number] Potassium Level March 31, 2025 4:27am 3.5 mmol/L 3.5-5.[address] [facility] [id number] [address] [place], [place] [id number] Chloride Level March 31, 2025 4:27am 98 mmol/L 98-[address] [facility] [id number] [address] [place], [place] [id number] Carbon Dioxide Level March 31, 2025 4:27am 28.1 mmol/L 21.0-31.[address] [facility] [id number] [address] [id number] Anion Gap March 31, 2025 4:27am 11.4 mEq/L 6.0-15.[address] [facility] [id number] [address] [id number] Calcium Level March 31, 2025 4:27am 8.1 mg/dL Below low normal 8.6-10.[address] [facility] [id number] [address] [id number] Phosphorus Level March 27, 2025 5:26am 2.0 mg/dL Below low normal 2.5-4.[address] [facility] [id number] [address] [place], [place] [address] Magnesium Level March 27, 2025 5:26am 1.8 mg/dL Below low normal 1.9-2.[address] [facility] [id number] [address] [place], [place] [address] Total Protein March 27, 2025 5:26am 5.2 g/dL Below low normal 6.4-8.[address] [facility] [id number] [address] [place], [place] [address] Albumin March 27, 2025 5:26am 2.8 g/dL Below low normal 3.5-5.[address] [facility] [id number] [address] [place], [place] [address] Globulin March 27, 2025 5:26am 2.4 g/dL [facility] [id number] [address] [place], [place] [address] Albumin/Globul in Ratio March 27, 2025 5:26am [address] [facility] [id number] [address] [place], [place] [address] Total Bilirubin March 27, 2025 5:26am 0.4 mg/dL 0.3-1.[address] [facility] [id number] [address] [place], [place] [address] Aspartate Amino Transf (AST/SGOT) March 27, 2025 5:26am 43 U/L Above high normal 13-[address] [facility] [id number] [address] [place], [place] [address] Alanine Aminotransfera se (ALT/SGPT) March 27, 2025 5:26am 31 U/L 7-[address] [facility] [id number] [address] [place], [place] [address] Alkaline Phosphatase March 27, 2025 5:26am 40 U/L 34-[address] [facility] [id number] [address] [place] [address] Osmolality March 26, 2025 3:01pm 277 mosm Below low normal 278-[address] [facility] [id number] [address] [place], [place] [address] Lactic Acid Level March 27, 2025 5:26am 1.4 mmol/L 0.5-1.9 Lactic Acid reference range has been updated to 0.5 1.9 mmol/L and the critical range of 2.[address] [facility] [id number] [address] [place], [place] [address] Iron Level March 28, 2025 4:37am 10 ug/dL Below low normal 50-[address] [facility] [id number] [address] [place], [place] [address] Total Iron Binding Capacity March 28, 2025 4:37am 328 ug/dL 255-[address] [facility] [id number] [address] [place], [place] [address] Iron Saturation March 28, 2025 4:37am 3.0 % Below low normal 20-[address] [facility] [id number] [address] [place], [place] [address] Transferrin March 28, 2025 4:37am 234 mg/dL 203-[address] [facility] [id number] [address] [place], [place] [address] Ferritin March 28, 2025 4:37am 30.8 ng/mL 11.0-306.[address] [facility] [id number] [address] [place], [place] [address] Troponin I High Sensitivity March 26, 2025 3:01pm 17 ng/L Above high normal 0-15 The Troponin units of report have been changed to meet the Chest Pain Accreditation requirement, element EC5.M1l2. Troponin units are changed from pg/ml to ng/L. Also, the decimal is removed and results are in whole numbers. [facility] [id number] [address] [place], [place] [address] C-Reactive Protein, Quantitative March 26, 2025 3:01pm 10.2 mg/dL Above high normal 0.0-0.[address] [facility] [id number] [address] [id number] B-Type Natriuretic Peptide March 26, 2025 3:01pm 189.0 pg/mL Above high normal 5-[address] [facility] [id number] [address] [id number] Carcinoembryon ic Antigen March 26, 2025 5:52pm 1.4 ng/mL 0.0-3.0 Serial tumor marker results determined by assays using different manufacturers or methods may not be comparable.Critical access hospital Laboratory administrative dietitian and method:SAEED UNICEL DXI, 2 SITE IMMUNOENZYMATIC S ANDWICH ASSAY. [facility] [id number] [address] [place], [place] [address] Vitamin B12 Level March 28, 2025 4:38am 275 pg/mL 180-[address] [facility] [id number] [address] [place], [place] [address] Folate March 28, 2025 4:38am 6.0 ng/mL >5.9 Folate reference range: >5.9 ng/mlThe WHO technical consultation on folate and vitamin p44rrklbonpulms has determined that folate concentrations lessthan 4 ng/ml are considered deficient. [facility] [id number] [address] [id number] Thyroid Stimulating Hormone 3rd Gen March 26, 2025 12:36pm 3.76 u[iU]/mL 0.45-5.[address] [facility] [id number] [address] [place], [place] [address] Total Cortisol March 26, 2025 12:36pm 5.3 ug/dL [facility] Laboratory administrative dietitian and method:SAEED UNICEL DXI, POLYCLONAL ANTIBODY CORTISOL ASSAY.Reference range: AM 6 - 24 ug/dl PM <10 ug/dl [facility] [id number] [address] [id number] Pharmacy Creatinine Clearance (Chem March 31, 2025 4:[address] [facility] [id number] [address] [place], [place] [address] Hemoglobin A1c March 26, 2025 12:37pm 5.2 % 4.3-5.6 Increased risk for diabetes: 5.7 - 6.4diabetes: >6.4glycemic control for adults with diabetes: <7.0 [facility] [id number] [address] [place], [place] [address] Estimated Average Glucose March 26, 2025 12:37pm 103 mg/dL [facility] [id number] [address] [place], [place] [address] Urine Sodium mmol/L March 26, 2025 3:35pm 30.0 mmol/L No reference range established [facility] [id number] [address] [place], [place] [address] Urine Osmolality March 26, 2025 3:35pm 248 mosm Below low normal 250-900 [facility] [id number] [address] [place], [place] [address] Vancomycin Level Peak March 27, 2025 4:07pm 21.0 ug/mL 20.0-40.0 Last dose: - [facility] [id number] [address] [place] [address] Vancomycin Level Trough March 27, 2025 8:32pm 13.6 ug/mL 10.0-20.0 Last dose: - [facility] [id number] [address] [place] [address] [place] 125 Antigen March 26, 2025 5:52pm 10.3 U/mL 0.0-38.1 [facility] Electrochemilumi nescence Immunoassay(ECLI A)Values obtained with different assay methods or kits cannotbe used interchangeably. Results cannot be interpreted asabsolute evidence of the presence or absence of malignantdisease .Performed at: [address] [id number] Director: Jose Damon PhD, Phone: [phone] [facility] 00 Procalcitonin March 26, 2025 3:01pm 0.14 ng/mL Above high normal 0.00-0.08 A procalcitonin (PCT) level above 2.0 ng/mL on the firstday of ICU admission is associated with a high risk forprogression to severe sepsis and/or septic shock.A PCT level below 0.5 ng/mL on the first day of ICUadmission is associated with a low risk for progressionto severe sepsis and/or septic shock.Note: Concentrations <0.5 ng/mL do not exclude aninfection, on account of localized infections (withoutsystemic signs) which can be associated with such lowconcentration s, or a systemic infection in its initialstages (<6 hours).Furthermo re, increased procalcitonin can occur withoutinfection . PCT concentrations between 0.5 and 2.0 ng/mLshould be interpreted taking into account the patient'shistory . It is recommended to retest PCT within 6-24 hoursif any concentrations <2 ng/mL are obtained.Perform ed at: [facility] [address] [id number] Director: Chito Mariee MD, Phone: [phone] [facility] 00 Coronavirus 2019 Clinical Comment 2 March 26, 2025 2:15pm Not detected Not Detecte This is a duplicate RP2.1 COVID (PCR) result to be used for statistical tracking purpose only. [facility] [id number] [address] [facility] [address] Bedside Glucose March 31, 2025 11:09am 172 mg/dL Random Glucose Reference Range is dependent on time and content of last meal. Glucose of more than 200 mg/dL in a nonstressed, ambulatory subject supports the diagnosis of Diabetes Mellitus. Point of Care testing Bedside Glucose Comment March 30, 2025 4:27pm Glu2: cleaned meter Point of Care testing Clostridium difficile Toxin B Gene March 27, 2025 9:26pm Negative Negative Testing performed by RT-PCR [facility] [id number] [address] [facility] [address] Stool Shigella PCR March 27, 2025 11:37am Negative Negative Shigella sp. test includes Shigella species and Enteroinvasive E. coli (EIEC). [facility] [id number] [address] [facility] [address] Stool Shiga Toxin (PCR)([facility]) March 27, 2025 11:37am Negative Negative [facility] [id number] [address] [facility] [address] Stool Campylobacter (PCR)([facility]) March 27, 2025 11:37am Negative Negative Campylobacter test includes C. jejuni and C. coli. [facility] [id number] [address] [facility] [address] Stool Salmonella (PCR)([facility]) March 27, 2025 11:37am Negative Negative Testing performed by RT-PCR [facility] [id number] [address] [place] [address] Microbiology Results Procedure Source Result Collection Date/Time Result Date/Time Result Comment Performing Site Blood Culture Blood, Left Antecubital NO GROWTH 5 DAYS March 26, 2025 3:01pm March 31, 2025 3:09pm [facility] [id number] [address] [place] [address] Blood Culture Blood, Right Hand NO GROWTH 5 DAYS March 26, 2025 3:04pm March 31, 2025 3:09pm [facility] [id number] [address] [place] [address] Nasal Screen MRSA/MSSA Nasal March 28, 2025 6:10pm March 28, 2025 7:49pm [facility] [id number] [address] [place] [address] Respiratory Panel (PCR) Nasopharyngeal March 26, 2025 2:15pm March 26, 2025 3:53pm [facility] [id number] [address] [place], [place] [address] Diagnostic Imaging Reports Author Gerber Moreno [facility] Authored March 26, 2025 2:10p m Report Dictated Date/Time Dictated By Status Radiology Report March 26, 2025 2:10pm Gerber jolley II MD completed [facility] Main [place] [address] [place], [place] [address] CT Scan Report Signed Patient: Latanya Martinez MR#: [id number] : 1960 Acct:[id number] Age/Sex: 64 / F ADM Date: 5 Loc: 4 Room: [address] [place] [address] Type: ADM IN Attending Dr: Keely Melvin MD Copies to: NEREYDA Hatch MD~ Ordering Provider: Irma Waters APRN Date of Service: 03/26/25 CT/CT head/brain wo con: RLE weakness CT head/brain wo con 03/26/2025 1:31 PM SIGNS AND SYMPTOMS: RLE weakness, headache TECHNIQUE:Multi-detector CT axial slices of the brain were obtained without IV contrast. CT was performed with one or more of the following dose reduction techniques: Automated exposure control, adjustment of the mA and/or kV according to patient size, or use of iterative reconstruction technique. COMPARISON: 09/21/2022. FINDINGS: There is no shift of the midline structures, acute intracranial bleeding, mass effects, or evidence of acute ischemia. There is age-related cortical atrophy. Atherosclerotic changes are noted in the intracranial segments of the internal carotid arteries. The ventricular system is normal in size. The brainstem and the cerebellum are unremarkable. The visualized intraorbital contents, the visualized paranasal sinuses, and the infratemporal soft tissues show no acute abnormality. The osseous structures in the skull base and the calvarium show no abnormality. CT/CT head/brain wo con IMPRESSION: No acute intracranial pathology. Chronic age-related degenerative changes are redemonstrated as above. Impression dictated by: Gerber Moreno M.D. 03/26/2025 2:12 PM Dictation Location: [place] [address] Transcribed By: [facility] 03/26/25 1412 Dictated By: Gerber Moreno II, MD 03/26/25 1410 Signed By: <Electronically signed by Gerber Moreno II, MD in OV> 03/26/25 1412 Author Gerber Moreno [facility] Authored March 26, 2025 2:12p m Report Dictated Date/Time Dictated By Status Radiology Report March 26, 2025 2:12pm Gerber Moreno II MD completed [facility] Main [place] [address] [place] [address] XRay Report Signed Patient: Latanya Martinez MR#: [id number] : 1960 Acct:[id number] Age/Sex: 64 / F ADM Date: 5 Loc: 4 Room: [address] [place] [address] Type: ADM IN Attending Dr: Keely Melvin MD Copies to: NEREYDA Hatch MD~ Ordering Provider: Irma Waters APRN Date of Service: 03/26/25 XR/XR hip BI w PEL1V: RLE weakness, L hip pain XR hip BI w PEL1V 03/26/2025 11:59 AM SIGNS AND SYMPTOMS: Fall, left hip pain and right hip pain PROTOCOL: Frontal radiograph the pelvis with frontal and frog-leg views of the bilateral hips COMPARISON: 05/31/2024 FINDINGS: The bony ring of the pelvis is intact. There is no fracture or dislocation. Vascular calcifications are present in the pelvis. Contrast is noted in the bladder. Correlation with recent contrast administration is recommended. XR/XR hip BI w PEL1V IMPRESSION: No fracture. No significant degenerative change. Impression dictated by: Gerber Moreno M.D. 03/26/2025 2:14 PM Dictation Location: [facility]- Transcribed By: [facility] 03/26/25 1414 Dictated By: Gerber Moreno II, MD 03/26/25 1412 Signed By: <Electronically signed by Greber Moreno II, MD in OV> 03/26/25 1414 Author Gerber Moreno [facility] Authored March 26, 2025 2:14p m Report Dictated Date/Time Dictated By Status Radiology Report March 26, 2025 2:14pm Gerber jolley II MD completed [facility] Main [place] [address] [place] [address] XRay Report Signed Patient: Latanya Martinez MR#: [id number] : 1960 Acct:[id number] Age/Sex: 64 / F ADM Date: 5 Loc: 4P Room: [address] [place] [address] Type: ADM IN Attending Dr: Keely Melvin MD Copies to: NEREYDA Hatch MD~ Ordering Provider: Irma Waters APRN Date of Service: 03/26/25 XR/XR chest 1V portable: shortness of breath XR chest 1V portable 03/26/2025 11:59 AM SIGNS AND SYMPTOMS: ^shortness of breath PROTOCOL: Frontal radiograph of the chest COMPARISON: 08/04/2024 FINDINGS: The trachea is midline. There is cardiomegaly. There is a dual lead pacer device on the right. There is perihilar vascular prominence. No focal consolidation. Atherosclerotic changes are noted in the thoracic aorta. The lung parenchyma is clear. The bony thorax is intact. XR/XR chest 1V portable IMPRESSION: There is cardiomegaly. There is also perihilar vascular prominence. This may represent sequelae of congestive heart failure. Impression dictated by: Gerber Moreno M.D. 03/26/2025 2:15 PM Dictation Location: [facility]--17 Transcribed By: [facility] 03/26/251414 Dictated By: Gerber Moreno II, MD 03/26/251413 Signed By: <Electronically signed by Gerber Moreno II, MD in OV> 03/26/25 141 Author Gerber Moreno [facility] Authored March 27, 2025 11:11 am Report Dictated Date/Time Dictated By Status Radiology Report March 27, 2025 11:11am Gerber Moreno II MD completed [facility] [place] [address] Ultrasound Report Signed Patient: Latanya Martinez MR#: [id number] : 1960 Acct:[id number] Age/Sex: 64 / F ADM Date: 5 Loc: Room: [address] [place] [address] Type: ADM IN Attending Dr: Yonis Covington DO Ordering Provider: RACHEAL Farley Date of Service: 03/27/25 US/US pelvic complete: Pelvic mass Copies to: DO Lorrie Myers MD-TARANS~ EXAMINATION TYPE: US pelvic complete Grayscale, color scale Doppler, vascular duplex analysis of the bilateral ovaries DATE OF EXAM ORDERED: 03/26/2025 5:08 PM HISTORY: Right adnexal cyst COMPARISON: 02/19/2024 TECHNIQUE: Realtime Transabdominal imaging was performed. Grayscale, color scale Doppler, vascular duplex analysis of the bilateral ovaries was performed to assess blood flow. FINDINGS: The uterus measures 6.1 x 2.4 x 3.8 cm. The uterus is normal in echogenicity. Endometrium: Normal thickness and appearance. The endometrium measures 2 mm in thickness. Ovaries: There is a relatively anechoic cystic structure redemonstrated in the right adnexa with a possible mural nodule measuring 5.8 x 4.4 x 3.7 cm in greatest dimension. This is unchanged when compared to the prior CT. This is atypical for the patient's age. Right Ovary measurements: 6.7 x 3.9 x 5.0 cm Left Ovary measurements: 2.0 x 1.2 x 1.3 cm No abnormal adnexal mass is seen. No free fluid in the pelvic cul-de-sac. Vascular duplex analysis of the bilateral ovaries demonstrates normal blood flow without evidence of ovarian ischemia. US/US pelvic complete IMPRESSION: There is a relatively anechoic cystic structure redemonstrated in the right adnexa with a possible mural nodule measuring 5.8 x 4.4 x 3.7 cm in greatest dimension. This is unchanged when compared to the prior CT. This is atypical for the patient's age. This is unchanged dating back to 02/19/2024. No evidence of ovarian ischemia. Impression dictated by: Gerber Moreno M.D. 03/27/2025 11:14 AM Dictation Location: [place] [address] Tech: Le [place]an Transcribed By: [facility] 03/27/25 1114 Dictated By: Gerber Moreno II, MD 03/27/25 1111 Signed By: <Electronically signed by Gerber Moreno II, MD in OV> 03/27/25 1114 Author Libby Barker [facility] Authored March 28, 2025 10:16 am Report Dictated Date/Time Dictated By Status Radiology Report March 28, 2025 10:16am Libby scales MD completed [facility] Main [place] [address] [place] [address] CT Scan Report Signed Patient: Latanya Martinez MR#: [id number] : 1960 Acct:[id number] Age/Sex: 64 / F ADM Date: 5 Loc: 4 Room: [address] [place] [address] Type: ADM IN Attending Dr: Yonis Covington DO Copies to: Yonis Covington DO~ Ordering Provider: Yonis Covington DO Date of Service: 03/28/25 CT/CT chest w con: fever CT CHEST WITH INTRAVENOUS CONTRAST: CLINICAL HISTORY: Cough, shortness of breath, chest pain and fever. COMPARISON: 06/05/2024 TECHNIQUE: Spiral images were obtained through the chest following intravenous administration of 90 mL of Isovue-300. Images were reviewed using both narrow and wide window settings. This CT exam was performed using one or more following dose reduction techniques: Automated exposure control, adjustment of the mA and/or kV according to patient size, or use of iterative reconstruction technique. FINDINGS: Patient has a right-sided pacemaker. The heart is top normal in size. There is no pericardial effusion. Coronary artery disease is seen. No aortic aneurysm or dissection is identified. Mediastinal and right hilar lymph nodes are slightly larger than the prior. There is a tiny hiatal hernia. The bony structures are intact. A trace amount of layering pleural effusion is noted bilaterally. There is some adjacent lower lobe atelectasis and/or possible scarring. There are patchy areas of developing groundglass opacity on both sides. No pneumothorax is seen. Limited cuts through the upper abdomen show continued adrenal limb thickening. CT/CT chest w con IMPRESSION: BILATERAL GROUNDGLASS OPACITIES. TINY PLEURAL EFFUSIONS WITH ADJACENT BASILAR ATELECTASIS AND/OR SCARRING. SMALL MEDIASTINAL AND HILAR LYMPH NODES, LIKELY REACTIVE. TINY HIATAL HERNIA. Impression dictated by: Libby Barker M.D. 03/28/2025 10:23 AM Dictation Location: [place] [address] Transcribed By: [facility] 03/28/25 1023 Dictated By: Libby Barker MD 03/28/25 1016 Signed By: <Electronically signed by MD Libby Barker in OV> 03/28/25 1023 Author Joshua Fletcher [facility] Authored March 28, 2025 12:09 pm Report Dictated Date/Time Dictated By Status Radiology Report March 28, 2025 12:09pm Joshua Fletcher MD completed [facility] [place] [address] Ultrasound Report Signed Patient: Latanya Martinez MR#: [id number] : 1960 Acct:[id number] Age/Sex: 64 / F ADM Date: 5 Loc: Room: [address] [place] [address] Type: ADM IN Attending Dr: Yonis Covington DO Ordering Provider: Dayan Campa APRN Date of Service: 03/28/25 US/US arterial pvr rest LE: claudication, Iliac stenosis Copies to: NEREYDA Chin DO~ LOWER EXTREMITY SEGMENTAL ARTERIAL DOPSCAN (PVR) INDICATION: Known peripheral vascular occlusive disease PROCEDURE: Right arm blood pressure is 123 , left is 127 . Pressures throughout the right leg are 159 at the high thigh, at the 142 low thigh, 156 at the calf, 144 at the ankle using the posterior tibial artery, and 124 at the ankle using the dorsalis pedis artery with ankle-brachial index of 1.13 0.98 . Pressures throughout the left leg are 46 at the high thigh, at the 53 low thigh, 59 at the calf and 51 at the ankle using the posterior tibial artery, and 43 at the ankle using the dorsalis pedis artery with ankle-brachial index of 0.40 0.34 . Wave forms by plethysmography are normal on the right and severely blunted on the left US/US arterial pvr rest LE IMPRESSION: Severe peripheral vascular occlusive disease of the left lower extremity at rest with likely iliac occlusion Impression dictated by: Joshua Fletcher M.D. 03/28/2025 12:09 PM Dictation Location: [place] [address] Tech: Earlene De Leon Transcribed By: KATHLEEN 03/28/251208 Dictated By: Joshua Fletcher MD 03/28/251208 Signed By: <Electronically signed by MD Joshua Fletcher in OV> 03/28/25 120 Author Gerber Moreno [facility] Authored March 30, 2025 7:49a m Report Dictated Date/Time Dictated By Status Radiology Report March 30, 2025 7:49am Gerber jolley II MD completed [facility] [place] [address] XRay Report Signed Patient: Latanya Martinez#: [id number] : 1960 Acct:[id number] Age/Sex: 64 / F ADM Date: Loc: Room: [address] [place] [address] Type: ADM IN Attending Dr: Yonis Covington DO Copies to: Yonis Covington, DO Monse Nelson MD~ Ordering Provider: Monse Nelson MD Date of Service: 03/30/25 XR/XR hand RT 2V: fall poss right hand injury XR hand RT 2V 03/30/2025 12:04 AM SIGNS AND SYMPTOMS: Fall, pain in the right third digit PROTOCOL: Frontal and lateral radiograph of the right hand COMPARISON: 12/02/2022 FINDINGS: There has been interval posterior dislocation of the proximal interphalangeal joint with the middle phalanx dorsally displaced by 7 mm in respect to the head of the proximal phalanx. There is no acute displaced fracture. There is accompanying soft tissue swelling. The joint spaces are otherwise intact. XR/XR hand RT 2V IMPRESSION: There has been interval posterior dislocation of the proximal interphalangeal joint with the middle phalanx dorsally displaced by 7 mm in respect to the head of the proximal phalanx. Impression dictated by: Gerber Moreno M.D. 03/30/2025 7:50 AM Dictation Location: [place] [address] Transcribed By: [facility] 03/30/25 0750 Dictated By: Gerber Moreno II, MD 03/30/25 0749 Signed By: <Electronically signed by Gerber Moreno II, MD in OV> 03/30/25 0750 Author Gerber Moreno [facility] Authored March 30, 2025 7:50a m Report Dictated Date/Time Dictated By Status Radiology Report March 30, 2025 7:50am Gerber jolley II MD completed [facility] [place] [address] CT Scan Report Signed Patient: Latayna Martinez MR#: [id number] : 1960 Acct:[id number] Age/Sex: 64 / F ADM Date: 5 Loc: 4 Room: [address] [place] [address] Type: ADM IN Attending Dr: Yonis Covington DO Copies to: DO Monse Myers MD~ Ordering Provider: Monse Nelson MD Date of Service: 03/30/25 CT/CT head/brain wo con: fall poss hit head CT head/brain wo con 03/30/2025 12:01 AM SIGNS AND SYMPTOMS: Fall, possible injury to left side of head, dizziness TECHNIQUE:Multi-detector CT axial slices of the brain were obtained without IV contrast. CT was performed with one or more of the following dose reduction techniques: Automated exposure control, adjustment of the mA and/or kV according to patient size, or use of iterative reconstruction technique. COMPARISON: 03/26/2025 FINDINGS: There is no shift of the midline structures, acute intracranial bleeding, mass effects, or evidence of acute ischemia. There is age-related cortical atrophy. There is periventricular white matter hypoattenuation. Atherosclerotic changes are noted in the intracranial segments of the internal carotid arteries and V4 segment of the right vertebral artery. The ventricular system is normal in size. The brainstem and the cerebellum are unremarkable. The visualized intraorbital contents, the visualized paranasal sinuses, and the infratemporal soft tissues show no acute abnormality. The osseous structures in the skull base and the calvarium show no abnormality. CT/CT head/brain wo con IMPRESSION: No acute intracranial pathology. Mild chronic age-related neurodegenerative changes are noted as above. Impression dictated by: Gerber Moreno M.D. 03/30/2025 7:52 AM Dictation Location: [place] [address] Transcribed By: [facility] 03/30/25 075 Dictated By: Gerber Moreno II, MD 03/30/25 075 Signed By: <Electronically signed by Gerber Moreno II, MD in OV> 03/30/25751 Author Junaid Elena [facility] Authored March 30, 2025 9:51p m Report Dictated Date/Time Dictated By Status Radiology Report March 30, 2025 9:51pm Junaid Elena MD completed [facility] Main [address] [address] XRay Report Signed Patient: Latanya Martinez MR#: [id number] : 1960 Acct:[id number] Age/Sex: 64 / F ADM Date: 5 Loc: 4P Room: [address] [place] [address] Type: ADM IN Attending Dr: Yonis Covington DO Copies to: DO Srinivasa Myers MD~ Ordering Provider: Srinivasa Cárdenas MD Date of Service: 03/30/25 XR/XR hand RT 2V: Post finger reduction 2 views of the right hand COMPARISON: 03/30/2025 at level for exam REASON FOR EXAM: Reduction FINDINGS: Interval reduction of the PIP joint of the third digit noted. Mild residual soft tissue swelling. Alignment is near-anatomic. Remaining osseous structures are intact without fracture or dislocation. Overall minimal degenerative changes. XR/XR hand RT 2V IMPRESSION: Satisfactory reduction of the PIP joint of the third digit. Mild soft tissue swelling Impression dictated by: Junaid Elena M.D. 03/30/2025 9:53 PM Dictation Location: [place] [address] Transcribed By: [facility] 03/30/252152 Dictated By: Junaid Elena MD 03/30/252150 Signed By: <Electronically signed by Junaid Elena MD in OV> 03/30/252152 Author Joshua Fletcher [facility] Authored March 31, 2025 10:35 am Report Dictated Date/Time Dictated By Status Radiology Report March 31, 2025 10:35am Joshua rodriguez MD completed [facility] Main [address] [address] Ultrasound Report Signed Patient: Latanya Martinez MR#: [id number] : 1960 Acct:[id number] Age/Sex: 64 / F ADM Date: 5 Loc: 4P Room: [address] [place] [address] Type: ADM IN Attending Dr: Yonis Covington DO Ordering Provider: Dayan Campa APRN Date of Service: 03/30/25 US/US UNI ankle/arm indices: New baseline left PAMELA post angio Copies to: NEREYDA Chin DO~ Left ankle-brachial index Indication for study: Follow-up after left leg intervention PROCEDURE: Right arm blood pressure is 117 mmHg in the left arm blood pressure is 115 mmHg. At the left ankle the posterior tibial pressure is 101 with an ankle-brachial index of 0.86. The left dorsalis pedis pressure is 108 with an ankle-brachial index of 0.92. Waveforms are pulsatile with mild blunting. US/US UNI ankle/arm indices IMPRESSION: Mild peripheral vascular occlusive disease of the left lower extremity at rest. Significant improvement in the ankle-brachial index from March 28, 2025 Impression dictated by: Joshua Fletcher M.D. 03/31/2025 10:36 AM Dictation Location: [place] [address] Tech: Bettye Carson Transcribed By: KATHLEEN 03/31/25 1036 Dictated By: Joshua Fletcher MD 03/31/25 1035 Signed By: <Electronically signed by MD Joshua Fletcher in OV> 03/31/25 1036 Vital Signs Vital Reading Result Reference Range Collection Date/Time Height 62 [in_i] January 30 1:01pm Weight 64.52 kg January 30 1:01pm Heart Rate 71 /min 60-100 January 30 1:01pm Respiratory rate 12 /min 12-24 January 30, 2025 1:01pm Oxygen saturation by Pulse oximetry 97 % 95-100 January 30, 2025 1:0 1pm BP Systolic 100 mm[Hg] 100-140 January 30 1:01pm BP Diastolic 60 mm[Hg] 60-100 January 30 1:01pm BMI (Body Mass Index) 26.0 kg/m2 January 30, 2025 1:01pm Height 62 [in_i] March 20, 2025 1:15pm Weight 63.04 kg March 20, 2025 1:15pm Body Temperature 96.4 [degF] 97.6-99.0 March 20, 2 025 1:15pm Heart Rate 75 /min 60-100 March 20, 2025 1:15pm Oxygen saturation by Pulse oximetry 97 % 95-100 March 20, 2025 1:15p m BP Systolic 116 mm[Hg] 100-140 March 20, 2025 1:15pm BP Diastolic 74 mm[Hg] 60-100 March 20, 2025 1:15pm BMI (Body Mass Index) 25.4 kg/m2 March 202024 1:15pm Height 60 [in_i] March 30, 2025 12:45pm Weight 62.20 kg March 31, 2025 5:58am Body Temperature 97.9 [degF] 97.6-99.0 March 31, 2 025 11:58am Heart Rate 69 /min 60-100 March 31, 2025 11:58am Respiratory rate 20 /min 12-March 31, 2 025 11:58am Oxygen saturation by Pulse oximetry 93 % 95-100 March 31, 2025 11:58 am BP Systolic 107 mm[Hg] 100-140 March 31, 2025 11:58am BP Diastolic 54 mm[Hg] 60-100 March 31, 2025 11:58am Inhaled oxygen flow rate 1 L/min March 31, 2025 8:00am Height 60 [in_i] April 04, 2025 10:03am Weight 63.95 kg April 04, 2025 10:03am Body Temperature 96 [degF] 97.6-99.0 April 04, 025 10:03am Heart Rate 79 /min 60-100 April 04, 2025 10:03am Oxygen saturation by Pulse oximetry 97 % 95-100 April 04, 2025 10:03 am BP Systolic 112 mm[Hg] 100-140 April 04, 2025 10:03am BP Diastolic 64 mm[Hg] 60-100 April 04, 2025 10:03am BMI (Body Mass Index) 27.5 kg/m2 April 042024 10:03am Height 60 [in_i] April 07, 2025 11:15am Weight 64.41 kg April 07, 2025 11:15am Body Temperature 96.7 [degF] 97.6-99.0 April 07, 2 025 11:15am Heart Rate 76 /min 60-100 April 07, 2025 11:15am Oxygen saturation by Pulse oximetry 95 % 95-100 April 07, 2025 11:15 am BP Systolic 96 mm[Hg] 100-140 April 07, 2025 11:15am BP Diastolic 54 mm[Hg] 60-100 April 07, 2025 11:15am BMI (Body Mass Index) 27.7 kg/m2 April 072024 11:15am Advance Directives Advance Directive Response Recorded Date/ Time Advance Directives No August 24, 2024 1:55pm Insurance Providers Guarantor Latanya Martinez Address [address] [address] Contact Info. Home Phone: Payer Policy Id Coverage Id Subscriber's Name Subscriber Id Effective Date Expiration Date Medicaid [id number] Latanya Martinez [id number] Medicare [id number] Latanya Martinez [id number] Encounters Encounter Location(s) Arrival/Admit Date Discharge /Depart Date Provider(s) Non-patient / Non-visit [facility] January 08, 2025 3:21pm Heather Jorge Non-patient / Non-visit [facility] January 24, 2025 2:15pm Diane Turcios CMA Departed Physician/Provi geena Office Visit [facility] January 30, 2025 12:59pm January 30, 2025 1:25pm Jeri Fletcher APRN CNP Non-patient / Non-visit [facility] February 10, 2025 12:54pm Heather Eubanks MD [facility] Non-patient / Non-visit [facility] March 02, 2025 9:52am Jeri Fletcher APRN CNP Departed Physician/Provi geena Office Visit [facility] March 20, 2025 1:12pm March 20, 2025 1:44pm Jeri Fletcher APRN CNP Non-patient / Non-visit [facility] March 25, 2025 12:36am Julianne Michelle DO Non-patient / Non-visit [facility] March 26, 2025 1:55am Julianne Michelle DO Discharged Inpatient [facility] [place] [facility] March 26, 2025 9:30am March 31, 2025 5:10pm Yonis Covington DO Non-patient / Non-visit [facility] Vascular Surg March 28, 2025 8:27am Dayan Campa APRN Non-patient / Non-visit [facility] Infect Dis March 28, 2025 9:31am Augustus Ace MD Non-patient / Non-visit [facility] Vascular Surg March 29, 2025 9:32am Joshua Fletcher MD Non-patient / Non-visit [facility] Orthopedics March 30, 2025 9:23pm Heather Early MD Non-patient / Non-visit [facility] April 03, 2025 9:05am Diane Turcios CMA Non-patient / Non-visit [facility] April 04, 2025 1:45am Tree Red MD Departed Physician/Provi geena Office Visit [facility] April 04, 2025 9:58am April 04, 2025 10:35am Jeri Fletcher APRN CNP Departed Physician/Provi geena Office Visit [facility] April 07, 2025 11:09am April 07, 2025 12:02pm Jeri Fletcher APRN CNP Recent Diagnosis Onset Date Admit Date Atrial flutter January 30, 2025 12:59pm Bipolar 1 disorder, depressed [facility] 2024 12:59pm Cardiac defibrillator in place M arch 2024 12:59pm Depression January 30, 2025 12:59pm Hospital discharge follow-up [facility] 2024 12:59pm Ischemic cardiomyopathy January 302024 12:59pm Pneumonia January 30, 2025 12:59pm Tobacco abuse January 30, 2025 12:59pm Constipation March 20, 2025 1 :12pm Generalized abdominal discomfort March 20, 2025 1:12pm Bipolar 1 disorder, depressed Ma y 2024 9:30am Chronic anticoagulation March 9:30am Chronic clinical systolic heart failure March 26, 2025 9:30am COPD (chronic obstructive pulmonary disease) March 26, 2025 9:30am Diabetes March 26, 2025 9 :30am Dislocation of proximal inte rphalangeal joint of right middle finger March 26, 2025 9:30am GERD (gastroesophageal reflux disease) March 26, 2025 9:30am HLD (hyperlipidemia) March 26 9:30am HTN (hypertension), benign March 032024 9:30am Hypomagnesemia March 26, 2025 9 :30am Hyponatremia March 26, 2025 9 :30am Iron deficiency anemia March 26, 2025 9:30am Leukocytosis March 26, 2025 9 :30am Neoplasm, uncertain whether benign or malignant March 26, 2025 9:30am Occlusion of common iliac artery March 26, 2025 9:30am Ovarian cyst March 26, 2025 9 :30am Paroxysmal atrial fibrillation M ay 2024 9:30am Restless leg syndrome March 26, 2025 9:30am Right leg weakness March 26 9:30am Sepsis March 26, 2025 9 :30am Spinal stenosis of lumbar re gion with radiculopathy March 26, 2025 9:30am Hospital discharge follow-up Apr 9:58am Hypomagnesemia April 04, 2025 9 :58am Iron deficiency anemia April 04, 2025 9:58am Leukocytosis April 04, 2025 9 :58am Nicotine dependence April 04 9:58am Restless leg syndrome April 04, 2025 9:58am S/P insertion of iliac artery stent April 04, 2025 9:58am Sepsis April 04, 2025 9 :58am Diarrhea April 07, 2025 1 1:09am Functional Status Observation Response Date Recorded Dressing Patient at Baseline March 31 5:18pm Eating Patient at Baseline March 31 5:18pm Bathing Patient at Baseline March 31 5:18pm Disability Status Patient at Baseline March 31, 2025 5:18pm Functional Status Assessments Mental Status Observation Response Date Recorded Cognitive Status Patient at Baseline March 31, 2 025 5:18pm Cognitive/Mental Status Assessments Assessments Diagnosis Onset Date Resolution Status Admit Date Atrial flutter acute December 12:59pm Bipolar 1 disorder, depressed acute January 30, 2025 12:59pm Cardiac defibrillator in place acute January 30, 2025 12:59pm Depression acute January 30 12:59pm Hospital discharge follow-up acute January 30, 2025 12:59pm Ischemic cardiomyopathy acute M arch 2024 12:59pm Pneumonia inactive January 30 12:59pm Tobacco abuse deleted January 30, 2025 12:59pm Constipation resolved March 20 1:12pm Generalized abdominal discomfort res olved March 20, 2025 1:12pm Bipolar 1 disorder, depressed acute March 26, 2025 9:30am Chronic anticoagulation acute M 2024 9:30am Chronic clinical systolic he art failure acute March 26, 2025 9 :30am COPD (chronic obstructive pulmonary disease) acute March 26 9:30am Diabetes acute March 26, 2025 9:30am Dislocation of proximal interphalangeal joint of right middle finger acute March 26, 2025 9 :30am GERD (gastroesophageal reflu x disease) acute March 26, 2025 9 :30am HLD (hyperlipidemia) acute March 26, 2025 9:30am HTN (hypertension), benign acute March 26, 2025 9:30am Hypomagnesemia acute March 26, 2025 9:30am Hyponatremia acute March 26 9:30am Iron deficiency anemia acute 2024 9:30am Leukocytosis acute March 26 9:30am Neoplasm, uncertain whether benign or malignant acute March 26 9:30am Occlusion of common iliac artery acu te March 26, 2025 9:30am Ovarian cyst acute March 26 9:30am Paroxysmal atrial fibrillation acute March 26, 2025 9:30am Restless leg syndrome acute March 26, 2025 9:30am Right leg weakness acute March 262024 9:30am Sepsis acute March 26, 2025 9:30am Spinal stenosis of lumbar re gion with radiculopathy acute March 26 9:30am Hospital discharge follow-up acute April 04, 2025 9:58am Hypomagnesemia acute April 04, 2025 9:58am Iron deficiency anemia acute Ju 2024 9:58am Leukocytosis acute April 04 9:58am Nicotine dependence acute April 04, 2025 9:58am Restless leg syndrome acute [place] 2024 9:58am S/P insertion of iliac arter y stent acute April 04, 2025 9 :58am Sepsis acute April 04, 2025 9:58am Diarrhea acute April 07, 2025 11:09am Plan of Treatment Author Jeri [facility] Authored January 31, 2025 9:29 am Patient is not suicidal or h omicidal at this time. Discussed treatment options with patient today. It was decided in collaboration with the patient to start sertraline daily for management with depression. Medication profile and possible SE reviewed with patient today. Patient to take medication as directed and prescribed. Do not skip/miss doses and do not stop abruptly. Patient is not interested in counseling at this time. Warning s/s reviewed with patient today. Patient to go immediately to the ER should patient experience any of these. Follow up in 4 weeks to assess symptoms and medication effectiveness. Patient verbalizes understanding and agrees to treatment plan. The patient was seen today in follow-up from recent hospital stay. All available hospital records were reviewed and discussed with the patient. Hospital discharge medications were reviewed. Any changes are noted above. Notes that she is feeling better since hospitalization. Taking Medication as prescribed. Denies chest pain, palpitations. AICD has not fired since being out of hospital. Scheduled for an Ablation on 02/07/2025. Continue to follow with Cardiology We discussed possible complications of smoking including risk of heart disease, stroke, lung disease, and increase risk of cancer. Your goal is to quit smoking. The availability, risks, and benefits of medication used to treat nicotine addiction as relevant to you have been discussed. We are working together to achieve these goals with the following plan; barriers to these goals have been discussed. You have been given relevant education handouts and a summary of your care plan. Your next follow-up visit for this problem is six months, we will continue to ask progress for quitting and willingness to quit at each appointment. Resolved, was treated with antibiotics and steroids. Author Wilcox [facility] Authored April 04, 2025 6:58p m Discussed with pt changing h er Requip to three times per day. Discussed with patient to call the office to determine effectiveness of the change. Pt verbalizes understanding. Pt to have this repeated at the end of the week to assess WBC as she was in the hopsital for sepsis. Add iron and ferritin level as she was diagnosed with iron deficiency. She was placed on iron and Vitamin B12. Pt needs referral to hematology for further treatment. Magneisum level was 1.6 in ER on 04/04/2025 in the ER. She does take 400mg twice per day per Cardiology. DIsucssed with pt to call her Market Asset Protection Manager and notify that her levels continue to be decreased despite taking the She was under the care of vascular in the hospital and a iliac artery stent was placed due to occlusion. The patient was seen today in follow-up from recent hospital stay. All available hospital records were reviewed and discussed with the patient. Hospital discharge medications were reviewed. Any changes are noted above. We discussed possible complications of smoking including risk of heart disease, stroke, lung disease, and increase risk of cancer. Your goal is to quit smoking. The availability, risks, and benefits of medication used to treat nicotine addiction as relevant to you have been discussed. We are working together to achieve these goals with the following plan; barriers to these goals have been discussed. You have been given relevant education handouts and a summary of your care plan. Your next follow-up visit for this problem is six months, we will continue to ask progress for quitting and willingness to quit at each appointment. Author Jeri Fletcher [facility] Authored March 21, 2025 8:01a m Discussed with pt will send for evaluation with x-ray to rule out constipation. Discussed need to make sure eating a High-fiber diet and adequate water intake always suggested for maintenance of good routine bowel movements. If patient cannot get enough fiber or hydration into their diet, I would suggest Metamucil daily. If Metamucil is insufficient, we suggest stool softeners daily as adjunct therapy. Daily use of laxatives is not recommended and your body can become dependent on them and build up a tolerance. If acute exacerbation of constipation occurs, okay to try MiraLAX daily for 2 to 3 days. If severe constipation occurs, please contact primary care provider. Typically we suggest one-time dose of magnesium citrate [id number] for bowel evacuation. Discussed emergent symptoms and when ER is most appropriate. Discussed symptoms of hemorrhoids secondary to constipation and when to follow-up with primary care versus ER is most appropriate. If all conservative measures fail, there are maintenance medications that can be prescribed for the treatment of constipation. Future Tests Future scheduled test information is unavailable Pending Tests Test Name Ordered Date Scheduled Date XR abdomen min 2V March 20, 2025 1:41pm Giardia Lamblia Ag EIA Stool April 07, 2025 11:3 7am Lactoferrin, Stool WBC April 07, 2025 11:37am Stool Occult Blood (Guaiac) April 07, 2025 11:37 am Cryptosporidium Antigen Stool April 07, 2025 11: 37am Future Visits Future appointment information is unavailable Referrals to Other Providers Reason for Referral Referral Start Date Provider Provider Contact Information Provider Address Office is currently closed. Call office on Thursday to schedule follow-up with Vascular Surgery in 1-2 months. Joshua Fletcher MD Work Phone: [address] [phone] You have been scheduled for a follow up appointment for the following date and time, please call to reschedule if needed. Jeri Fletcher APRN [facility] Work Phone: [phone] [facility] [address] Call office on Thursday to schedule follow-up with Orthopedic Surgery in 2 weeks. Heather Early MD Work Phone: [phone] [employer] [facility] [address] D50.9 - Iron deficiency anemia, unspecified April 05, 2025 Mariah Logan MD Work Phone: [phone] [place] [address] Future Procedures Procedure Name Ordered Date Scheduled Date Admit Status Order March 26, 2025 11:48am March 262024 9:15am Discharge Order March 31, 2025 11:26am March 31, 2025 11:26am Consult to Gynecology March 26, 2025 1:42pm March 26, 2025 1:42pm Consult to Infectious Diseases March 26, 2025 11 :51am March 26, 2025 11:51am Consult to Orthopedic Surgery March 30, 2025 8:4 1am March 30, 2025 8:41am Consult to Vascular Surgery March 26, 2025 1:43p m March 26, 2025 1:43pm Complete Blood Count Auto Diff April 04, 2025 10 :33am Iron and TIBC Profile April 04, 2025 6:44pm Ferritin April 04, 2025 6:44pm Clostridium Difficile April 07, 2025 11:37am Stool Bacterial Panel April 07, 2025 11:37am Future Medications Future medication information is unavailable Patient Instructions Instruction Admit Date Hope Pamphlet Know your Meds March 26, 2025 9:30am Goals Acute Goals Author Authored Date Maintain/increase activity l evels * Understands factors that may lead to activity intolerance * Helps perform self care activities * Maintains maximum range of motion * Increase/regain muscle mass and strength * Maintains VS WNL during activity * Maintain intact skin integrity Updated: 12/15/2022 [facility] March 26, 2025 10:32am Fall Prevention 2022 [facility] March 26, 2025 10:32am Exhibit optimal tissue perfu radu * Exhibits adequate oxygenation and ventilation * Exhibits adequate cardiac output * Regains stable cardiac rhythm * Maintains optimal activity level * Maintains balanced intake and output [facility] March 31, 2025 5:31pm
--- OUTSIDE RECORDS SUMMARY | 2025-04-08 13:08 | XMS_ITS | Encounter Summary ---
Author Organization [facility] Address [address] [place], [place] [id number] Care Team Providers Care Bridge Inspector Name Role Phone Shanthi Litstephanie Nelson DO Primary Care Provider [phone] Reza Pike MD Primary Care Provider Pcp, No SAUSAGE MIXER Primary Care Provider Unavailabl e Source Comments In the event this information is protected by the Federal Confidentiality of Alcohol and Drug AbusePatient Records regulations: The Federal rules restrict any use of the information to criminally investigate or prosecute any alcohol or drug abuse patient.[facility] Encounter Details Date Type Department Care Team (Late st Contact Info) Description 06/01/2015 Letters (in) Colorectal Surgery [address] [place] [id number] Marcial Ceballos (Hist) [address] [place] [id number] Social History Tobacco Use Types Packs/Day Years [...] June 01, 2015 Jd Dailey, DO [address] [address] RE: Latanya Martinez : [address] Dailey: I saw your patient, Latnaya Martinez, on April 09, 2015. Mrs. Martinez [...] and she was suitable for anesthesia, a denominational of continuity could be performed. I performed [...] 22, 2015. Yours Faithfully, Marcial Ceballos MD [place]/ cc: Latanya Martinez 11/03 [place] [address] Lit Maki DO [address] [facility] [address] documented in this encounter Plan of Treatment Not on file documented as of this encounter Visit Diagnoses Not on filedocumented in this encounter Care Teams Bridge Inspector Relationship Specialty Start Date End Date Lit Maki DO PCP - General 05/16/15 06/03/15 Reza Pike MD PCP - General Family Medicine 06/04/15 05/16/22 Pcp, No, SAUSAGE MIXER PCP - General 05/17/22 12/02/22 documented as of this encounter
--- OUTSIDE RECORDS SUMMARY | 2025-04-08 13:08 | XMS_ITS | Patient Health Record ---
Author Organization [facility] Address [address] [place] [address] Care Team Providers Care Wire Bound Box Machine Operator Name Role Phone Darcie Garcia Primary Care Provider [phone] Janna Jackson Unavailable [phone] Nicole Benson Unavailable [phone] Wilson Isabel Unavailable [phone] Abdiel Kennedy Unavailable [phone] Emmanuel Stratton Unavailable [phone] Allergies No Known Allergies Reason For Referral [...] use: Current smoker Section Notes: Lives with sister and 2 niec es. 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) Active confirmed Problem 975373488 Other intervertebral disc degeneration, lumbar region (M51.36) Active confirmed Problem 26489639 Urge incontinenc e (N39.41) Active confirmed Problem 72397249 Anxiety (F41.9) Active confirmed Problem 460792549 Bipolar 1 disord er (F31.9) Active confirmed Problem 257983863944877 Obesity (BMI 30.0-34.9) (E66.9) Active confirmed Problem 21530457 Paresthesias (R20.2) Active confirmed Problem 10981056 Chronic obstruct vesna pulmonary disease, unspecified COPD type (J44.9) Active confirmed Problem 491324505 Gastroesophageal reflux disease without esophagitis (K21.9) Active confirmed Problem 62573309 Atrial fibrillation, unspecified type (I48.91) Active confirmed Problem 25299834 Oral thrush (B37.0) Active confirmed Problem 46202448 Hypertension, unspecified type (I10) Active confirmed Problem 684138523 Moderate persist ent asthma, unspecified whether complicated (J45.40) Active confirmed Problem Body mass index 30+ - obesity (154353020) BMI 30.0-30.9,adult (Z68.30) Active confirmed Problem 23747286 Type 2 diabetes mellitus with diabetic polyneuropathy, unspecified whether shelter insulin use (E11.42) Active confirmed Problem 54691707 Oropharyngeal dysphagia (R13.12) Active confirmed Problem Mixed bipolar affective disorder, moderate (562343965) Bipolar mixed affective disorder, moderate (F31.62) Active confirmed Problem 29413830 Anticoagulated o n Coumadin (Z79.01) Active confirmed Problem 22227899 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, unspecified vessel [...] 09/07/2024 Encounters Encounter Location Date Provider Diagnosis [facility] [address] [place] [address] 06/21/2024 Emmanuel Stratton Restless legs syndro ga G25.81 [facility] [address] [place] [address] 09/07/2024 Nicole Benson Bipolar mixed affect vesna disorder, moderate F31.62 [facility] [address] [place] [address] 07/13/2024 Nicole Benson Bipolar mixed affect vesna disorder, moderate F31.62 [facility] [address] [place] [address] 06/13/2024 Darcie Garcia Hip pain, right M25. 551 and Pneumonia of both lower lobes due to infectious organism J18.9 [facility] [address] [place] [address] 08/12/2024 Darcie Garcia Strain of neck muscl e, initial encounter S16.1XXA ; Changes in vision H53.9 ; Dizziness R42 and Paresthesias R20.2 [facility] [address] [place] [address] 06/29/2024 Darcie Garcia Restless legs syndro me G25.81 ; Hip pain, right M25.551 and Urge incontinence N39.41 [facility] [place] [address] 11/28/2024 Darcie Garcia Hypertension, unspecified type I10 [facility] [place] [address] 07/11/2024 Darcie Garcia Restless legs syndro me G25.81 [place] [address] [place] [address] 07/18/2024 Darcie Garcia [place] [address] [place] [address] 08/05/2024 Darcie Garcia [facility] [address] [place] [address] 08/11/2024 Darcie Garcia Gastroesophageal ref lux disease without esophagitis K21.9 [facility] [address] [place] [address] 08/16/2024 Darcie Garcia Type 2 diabetes norah itus with diabetic polyneuropathy, unspecified whether shelter insulin use E11.42 [facility] [address] [place] [address] 08/29/2024 Darcie Garcia Restless legs syndro me G25.81 [facility] [place] [place] [address] 04/27/2024 Darcie Garcia [place] [address] [place] [address] 06/01/2024 Darcie Garcia Urge incontinence N3 9.41 [facility] [address] [place] [address] 06/03/2024 Darcie Garcia [facility] [address] [place] [address] 06/14/2024 Darcie Garcia Assessments Encounter Date Diagnosis (ICD Code) Assessment Notes Treatment Notes Treatment Clinical Notes Section Notes 07/13/2024 Bipolar mixed affective disorder, moderate (ICD-10 [...] to the start/continuatio n of the treatment. 09/07/2024 Bipolar mixed affective disorder, moderate (ICD-10 [...] to the start/continuatio n of the treatment. 11/28/2024 Hypertension, unspecified type (ICD-10 - I10) 07/11/2024 Restless legs syndrome (ICD-10 - G25.81) 08/12/2024 Strain of neck muscle, initial encounter (ICD-10 - S16.1XXA) 08/12/2024 Changes in vision (ICD-10 - H53.9) 08/16/2024 Type 2 diabetes mellitus with diabetic polyneuropathy, unspecified whether shelter insulin use (ICD-10 - E11.42) 08/29/2024 Restless legs syndrome (ICD-10 - G25.81) 08/11/2024 Gastroesophageal reflux disease without esophagitis (ICD-10 - K21.9) 06/01/2024 Urge incontinence (ICD-10 - N39.41) 06/13/2024 Hip pain, right (ICD-10 - M25.551) [...] as needed. Continue to monitor symptom resolution 06/21/2024 Restless legs syndrome (ICD-10 - G25.81) Because the patient was already on a significant dose of pregabalin (2x 75mg), I will switch her to a 300mg dose of gabapentin. Due to the slightly different mechanisms of the 2 medications, believe the patient will have symptomatic relief. Patient in agreement with plan. 06/29/2024 Restless legs syndrome (ICD-10 - G25.81) 08/12/2024 Dizziness (ICD-10 - R42) 06/29/2024 Hip [...] warfarin, will do short coarse of meloxicam. 08/12/2024 Paresthesias (ICD-10 - R20.2) 06/29/2024 Urge incontinence (ICD-10 - N39.41) 06/13/2024 Other Body Mass Index : Care Instructions material was printed 06/21/2024 Other [facility] sent as mistake, called pharmacy to have [...] in the left eye.- Consult with an hydroelectric component machinist in the next 24 hours if possible [...] Date ANTHEM MEDIBLUE DUAL-ELIGB LE [address] [place] [phone] [id number] [facility] KING MORENO Self - patient is the insured 3 [employer] MEDICAID SEC TO [employer] ADV [address] [place] [address] [phone] [id number] KING MORENO Self - patient is the insured 1 MEDICARE CGS 1 [place] [address] [id number] KING MORENO Self - patient is the [...]
--- OUTSIDE RECORDS SUMMARY | 2025-04-08 13:08 | XMS_ITS | Encounter Summary ---
Author Organization [facility] Address [address] [place] [address] Phone Care Team Providers Care Stewardesses Teacher Name Role Phone Generic Provider, No Assigned Pcp Primary Car e Provider Unavailable Diane Min RN Unavailable Unavailable June Preston MD Unavailable Conchita Aden MD Primary Care Provider Diane Min RN Unavailable Unavailable Encounter Details Date Type Department Care Team (Late st Contact Info) Description 10/29/2024 Scanned Document [facility] [address] [place] [address] Scanning, Generic Provider Social History [...] any time in the past 12 m [facility], were you homeless or living in [...] Description 04/14/2025 9:30 AM EDT Hospital Encounter [facility] [place] [address] [place] [address] Kervin Fair MD [address] [place] [address] Ventricular tachycardia (Multi) 04/14/2025 11:00 AM EDT - 04/14/2025 3:00 PM EDT Surgery [facility] [place] [address] [place] [address] Kervin Fair MD [address] [place], [place] [id number] [place] [[id number] (CPT )] 07/14/2025 1:00 PM EDT Office Visit [facility] [address] [facility] [address] [place] [address] Oscar Rodriguez MD [address] [place], [place] [id number] 09/26/2025 12:20 PM EST Appointment [facility] [address] [place] [address] 09/26/2025 1:00 PM EST Office Visit [facility] [address] [facility] [address] [place] [address] June Preston MD [address] [facility] Medical Office Bldg, [address] [place] [address] documented as of this encounter Visit Diagnoses [...] documented as of this encounter Care Teams Stewardesses Teacher Relationship Specialty Start Date End Date Generic Provider, No [place] [address] PCP - General Prototype Technician 08/08/24 11/10/24 Conchita Aden MD [address] [place] [address] [place] [address] PCP - General Family Medicine 11/11/24 Diane Min, diesel engine testerProfiling Machine Operator 09/05/24 12/06/24 June Preston MD [address] [facility], [facility] [address] [place] [address] Health Information Clerk Electrophysiology 09/13/24 Diane Min, diesel engine testerProfiling Machine Operator 01/16/25 01/31/25 documented as of this encounter
--- OUTSIDE RECORDS SUMMARY | 2025-04-08 13:08 | XMS_ITS | Encounter Summary ---
Author Organization [facility] Address [address] [place] [address] Phone Care Team Providers Care Deputy Felony Clerk Name Role Phone Generic Provider, No Assigned Pcp Primary Car e Provider Unavailable Diane Min RN Unavailable Unavailable June Preston MD Unavailable Conchita Aden MD Primary Care Provider [phone] Diane Min RN Unavailable Unavailable Encounter Details Date Type Department Care Team (Late st Contact Info) Description 10/30/2024 Scanned Document [facility] [address] [place] [address] Scanning, Generic Provider Social History [...] any time in the past 12 m [facility], were you homeless or living in [...] EDT Hospital Encounter [facility] [place] [place] [address] [place] [address] Kervin Fair MD [address] [place] [address] Ventricular tachycardia (Multi) 04/14/2025 11:00 AM EDT - 04/14/2025 3:00 PM EDT Surgery [facility] [place] [place] [address] [place] [address] Kervin Fair MD [address] [place], [place] [id number] [place] [[id number] (CPT )] 07/14/2025 1:00 PM EDT Office Visit [facility] [address] [place] [address] Oscar Rodriguez MD [address] [place] [address] 09/26/2025 12:20 PM EST Appointment [facility] [address] [place] [address] 09/26/2025 1:00 PM EST Office Visit [facility] [address] [place] [address] June Preston MD [address] [facility] Medical Office Bldg, [address] [place], [place] [phone] documented as of this encounter Procedures Procedure [...] documented as of this encounter Care Teams Deputy Felony Clerk Relationship Specialty Start Date End Date Generic Provider, No Assigned Pcp, [place] [address] PCP - General Watch And Clock Repair Clerk 08/08/24 11/10/24 Conchita Aden MD [address] [place] [address] [place] [address] PCP - General Family Medicine 11/11/24 Diane Min RN Care Database Design Analyst 09/05/24 12/06/24 June Preston MD [address] [facility] Medical Office Bldg, [address] [place] [address] Fuel Handler Electrophysiology 09/13/24 Diane Min, consumer marketing analystDatabase Design Analyst 01/16/25 01/31/25 documented as of this encounter
--- OUTSIDE RECORDS SUMMARY | 2025-04-08 13:08 | XMS_ITS | Encounter Summary ---
Author Organization [facility] Address [address] [place] [address] Phone Care Team Providers Care Personnel Training Officer Name Role Phone Generic Provider, No Assigned Pcp Primary Car e Provider Unavailable Diane Min RN Unavailable Unavailable June Preston MD Unavailable Conchita Aden MD Primary Care Provider [phone] Diane Min RN Unavailable Unavailable Encounter Details Date Type Department Care Team (Late st Contact Info) Description 11/02/2024 Scanned Document [facility] [address] [place] [address] Scanning, Generic Provider Social History [...] place to sleep or slept in a intermediate (including now)? No 02/16/2024 Housing Stability Vital [...] in the past [address] [facility], were you homeless or living in a intermediate (including now)? No 09/01/2024 Comments No Sex and Gender Information Value Date Recorded Sex Assigned at Not on file Legal Sex Female 10:34 AM EST Gender Identity Not on file Sexual Orientation Not on file documented as of this encounter Plan of Treatment Upcoming Encounters Date Type Department Care Team (Latest Contact Info) Description 04/14/2025 9:30 AM EDT Hospital Encounter [facility] [place] [address] [place] [address] Kervin Fair MD [address] [place] [address] Ventricular tachycardia (Multi) 04/14/2025 11:00 AM EDT - 04/14/2025 3:00 PM EDT Surgery [facility] [place] [address] [place] [address] Kervin Fair MD [address] [place], [place] [id number] [place] [[id number] (CPT )] 07/14/2025 1:00 PM EDT Office Visit [facility] [address] [facility] [address] [place] [address] Oscar Rodriguez MD [address] [place], [place] [id number] 09/26/2025 12:20 PM EST Appointment [facility] [address] [place] [address] 09/26/2025 1:00 PM EST Office Visit [facility] [address] [facility] [address] [place] [address] June Preston MD [address] [facility] Medical Office Bldg, [address] [place] [address] documented as of this encounter Visit Diagnoses [...] documented as of this encounter Care Teams Personnel Training Officer Relationship Specialty Start Date End Date Generic Provider, No [place] [address] PCP - General Tractor Distributor 08/08/24 11/10/24 Conchita Aden MD [address] [place] [address] [place] [address] PCP - General Family Medicine 11/11/24 Diane Min, business brokerCustomer Engagement Analyst 09/05/24 12/06/24 June Preston MD [address] [facility], [facility] [address] [place] [address] Etch Operator Semiconductor Wafers Electrophysiology 09/13/24 Diane Min, business brokerCustomer Engagement Analyst 01/16/25 01/31/25 documented as of this encounter
--- OUTSIDE RECORDS SUMMARY | 2025-04-08 13:09 | XMS_ITS | Encounter Summary ---
Author Organization [facility] Address [address] [place] [address] Phone Care Team Providers Care Mechanical Supervisor Name Role Phone Generic Provider, No Assigned Pcp Primary Car e Provider Unavailable Diane Min RN Unavailable Unavailable June Preston MD Unavailable Conchita Aden MD Primary Care Provider [phone] Diane Min RN Unavailable Unavailable Encounter Details Date Type Department Care Team (Late st Contact Info) Description 11/05/2024 Scanned Document [facility] [address] [place] [place] [address] Scanning, Generic Provider Social History [...] place to sleep or slept in a chcf (including now)? No 02/16/2024 Housing Stability Vital Sign Answer Mookie e Recorded In the last 12 months, was t here a time when you were not able to pay the mortgage or rent on time? No 09/01/2024 In the past 12 months, how m any times have you moved where you were living? 0 09/01/2024 At any time in the past 12 m [facility], were you homeless or living in a chcf (including now)? No 09/01/2024 Comments No Sex and Gender Information Value Date Recorded Sex Assigned at Not on file Legal Sex Female 10:34 AM EST Gender Identity Not on file Sexual Orientation Not on file documented as of this encounter Plan of Treatment Upcoming Encounters Date Type Department Care Team (Latest Contact Info) Description 04/14/2025 9:30 AM EDT Hospital Encounter [facility] [place] [address] [place] [address] Kervin Fair MD [address] [place] [address] Ventricular tachycardia (Multi) 04/14/2025 11:00 AM EDT - 04/14/2025 3:00 PM EDT Surgery [facility] [place] [address] [place] [address] Kervin Fair MD [address] [place], [place] [id number] [place] [[id number] (CPT )] 07/14/2025 1:00 PM EDT Office Visit [facility] [address] [facility] [address] [place] [address] Oscar Rodriguez MD [address] [place], [place] [phone] 09/26/2025 12:20 PM EST Appointment [facility] [address] [place] [address] 09/26/2025 1:00 PM EST Office Visit [facility] [address] [facility] [address] [place] [address] June Preston MD [address] [facility] Medical Office Bldg, [address] [place] [address] documented as of this encounter Visit Diagnoses [...] documented as of this encounter Care Teams Mechanical Supervisor Relationship Specialty Start Date End Date Generic Provider, No [place] [address] PCP - General Business And Services Instructor 08/08/24 11/10/24 Conchita Aden MD [address] [place] [address] [place] [address] PCP - General Family Medicine 11/11/24 Diane Min, experimental preflight mechanicMail Messenger Contractor 09/05/24 12/06/24 June Preston MD [address] [facility], [facility] [address] [place] [address] Tape Recording Machine Operator Electrophysiology 09/13/24 Diane Min, experimental preflight mechanicMail Messenger Contractor 01/16/25 01/31/25 documented as of this encounter
--- OUTSIDE RECORDS SUMMARY | 2025-04-08 13:09 | XMS_ITS | Clinical Summary ---
Author Organization [facility] Address [address] 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 90 tablet 3 5 11/11/19 Active spironolactone (Aldactone) 25 mg tabletIndications:E ssential hypertension Take 1 tablet (25 mg) by mouth once daily. 90 tablet 3 5 11/15/19 Active Invokana 300 mgIndications:Type 2 diabetes mellitus without complication, without long-term current use of insulin,Atheroscler osis of upper sioux coronary artery of upper sioux heart without angina pectoris,Chronic systolic CHF (congestive heart failure) Take 1 tablet (300 mg) by mouth once daily in the morning. Take before meals. 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 180 tablet 3 5 12/20/19 Active albuterol 90 mcg/actuation inhalerIndications: [...] i) 09/30/2023 Moderate persistent asthma without complication ([facility]) 09/30/2023 Oral thrush 09/30/2023 Oropharyngeal dysphagia 09/30/2023 Polyneuropathy due to type 2 diabetes mellitus ( Multi) 09/30/2023 Stable angina pectoris due t o arteriosclerosis of coronary artery 09/30/2023 Urge incontinence of urine 09/30/2023 Atherosclerosis of upper sioux co ronary artery of upper sioux heart without angina pectoris 07/29/2023 Chronic obstructive [...] bowel function Postoperative pain 05/23/2015 Overview (09/30/2023): 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 [address] [place] [address] ICD (implantable cardioverter-defibril lator) in place; Paroxysmal ventricular tachycardia Discharge Disposition: Home 02/21/2025 Orders Only [facility] [address] [place] [address] Kervin Deshpande MD Chronic systolic CHF (congestive heart failure) (Primary Dx) 02/10/2025 Scanned Document [facility] [address] [place] [address] Scanning, Generic Provider 02/07/2025 11:30 AM EDT Office Visit [facility] [address] [place] [address] Kervin Deshpande MD Ventricular tachycardia (Multi); ICD (implantable cardioverter-defibril lator) in place 02/07/2025 Travel 01/24/2025 Refill [facility] [address] [place] [address] Dia Lao, SIGNALS ANALYST ICD (implantable cardioverter-defibril lator) discharge; Paroxysmal ventricular tachycardia (Multi) 01/19/2025 Telephone [facility] [address] [place] [address] Kervin Deshpande MD 01/16/2025 Patient Outreach [facility] [address] [place] [address] Diane Min, RN 01/12/2025 Telephone [facility] [address] [place] [address] Kervin Deshpande MD 01/09/2025 7:20 AM EDT - 01/09/2025 11:59 PM EDT Hospital Encounter [facility] [address] [facility] [place] [address] Ventricular tachycardia (Multi) Discharge Disposition: Home 01/08/2025 7:01 PM EDT - 01/14/2025 12:51 PM EDT Hospital Encounter [facility] 8 Cardiac Intensive Care [address] [facility] [place] [address] Otis Chappell, Yonis Manuel MD Sehgal, MD Halie Fields Tahereh, MD Kaniecki, Dani Romero, IT SYSTEMS ENGINEER-MAINS AND SERVICE SUPERVISOR, DNP ICD (implantable cardioverter-defibril lator) discharge (Primary Dx); Paroxysmal ventricular tachycardia (Multi); Ventricular tachycardia (CMS/HCC); ICD (implantable cardioverter-defibril lator) in place; VT (ventricular tachycardia) (Multi) Discharge Disposition: Home Health Care - New 01/08/2025 Travel 01/06/2025 8:35 AM EST - 01/06/2025 11:59 PM EST Hospital Encounter [facility] [address] [facility] [place] [address] ICD (implantable cardioverter-defibril lator) in place; Paroxysmal ventricular tachycardia (Multi) Discharge [...] from your doctor or pharmacy? Never 01/08/2025 [facility] Utilities Answer Date Recorded In the past 12 months has e [employer], gas, oil, or water [employer] threatened to shut off services in your [...] week 01/08/2025 How often do you attend restorationist or episcopal serv ices? Patient declined 01/08/2025 Do you belong to any clubs o r organizations such as restorationist groups, unions, fraternal or athletic groups, or [...] Recorded Patient Health Questionnaire-2 Score 0 01/08/2025 [facility] - Occupational Stress Questionnaire Answer Date Recorded [...] place to sleep or slept in a detention (including now)? No 02/16/2024 Housing Stability Vital Sign Answer Mookie e Recorded In the last 12 months, was t here a time when you were not able to pay the mortgage or rent on time? No 01/08/2025 In the past 12 months, how m any times have you moved where you were living? 1 01/08/2025 At any time in the past 12 m [facility], were you homeless or living in a detention (including now)? No 01/08/2025 Comments No Sex [...] No / Unsure 04/03/2025 1:09 PM EDT Last Filed Vital Signs Vital Sign Reading [...] Description 04/14/2025 9:30 AM EDT Hospital Encounter [facility] [place] [address] [place] [phone] Kervin Deshpande MD [address] [place] [address] Ventricular tachycardia (Multi) 04/14/2025 11:00 AM EDT - 04/14/2025 3:00 PM EDT Surgery [facility] [place] [address] [place] [address] Kervin Deshpande MD [address] [place] [address] [place] [[address] (CPT )] 07/14/2025 1:00 PM EDT Office Visit [facility] [address] [facility] [address] [place] [address] Oscar Rodriguez MD [address] [facility] [address] [place] [address] 09/26/2025 12:[address] [facility] [address] [place] [facility] [place] [address] 09/26/2025 1:00 PM EST Office Visit [facility] [address] [facility] [address] [place] [address] June Preston MD [address] [facility] [address], [address] [place] [address] Health Maintenance Due Date Last Done Comments [...] 06/21/2021, 02/19/2021 Diabetes: Hemoglobin A1C 04/10/2025 01/08/2025, 0205/2022 Influenza Vaccine (Season Ended) 2025 06/21/2021, 01/22/2021, 08/02/2019, Additional history exists TSH Level 01/08/2026 01/08/2025, 041 03/2024, 07/24/2023 Echocardiogram 01/09/2026 01/09/2025, 01/0 07/2024, 07/22/2023, [...] this topic Medical Devices Implanted Type Area Brim Blocker Device Identifier Shelf Expiration Date Model / Serial / Lot Icd ICD Right: Chest Wall Icd-09/02/2023 Implanted:09/02 (Quantity not on file) ICD Right: Chest Icd-09/30/2023 Implanted:09/30 (Quantity not on file) ICD Right: Chest Procedures Procedure Name Priority Date/Time Associated Diagnosis Comments CT HEART STRUCTURE MORPHOLOGY W IV CONTRAST Routine 04/03/2025 1:36 PM EDT Ventricular tachycardia (CMS/HCC) Abnormal result of cardiovascular function study, unspecified CARDIAC DEVICE CHECK - REMOTE - ICD Routine 03/09/2025 9:38 AM EDT ICD (implantable cardioverter-defibri llator) in place Paroxysmal ventricular tachycardia NUCLEAR STRESS TEST - ONBASE SCAN 02/10/2025 OUTSIDE LAB SCAN 02/10/2025 OUTSIDE IMAGING SCAN 02/10/2025 ECG 12-LEAD Routine 02/07/2025 11:30 AM EDT Ventricular tachycardia (Multi) ICD (implantable cardioverter-defibri llator) in place POCT GLUCOSE Routine 01/14/2025 10:38 [...] Routine 01/06/2025 9:29 AM EST ICD (implantable cardioverter-defibri llator) in place Paroxysmal ventricular tachycardia (Multi) from Last 3 Months Results * CT heart structure morphology w [...] Anand Baugh 04/04/2025 1:16 AM Dictation workstation: [id number] Narrative 04/04/2025 1:16 AM EDT Interpreted By: Anand Baugh and Okyere Robert STUDY: CT HEART STRUCTURE MORPHOLOGY W IV CONTRAST; 04/03/2025 1:36 pm INDICATION: Signs/Symptoms:For Ventricular Tachycardia ablation planning; late iodine enhancement CT scan; inHeart protocol; must be done at [facility]. COMPARISON: None. ACCESSION NUMBER(S): [id number] ORDERING CLINICIAN: KERVIN DESHPANDE TECHNIQUE: Using multi-detector CT technology, axial, sequential [...] about 25-50% luminal stenosis which fills via [id number] collaterals. CARDIAC CHAMBERS: The cardiac chambers demonstrate [...] scan; inHeart protocol; must be done at [facility]. COMPARISON: None. ACCESSION NUMBER(S): [id number] ORDERING CLINICIAN: KERVIN DESHPANDE TECHNIQUE: Using multi-detector CT technology, axial, sequential [...] about 25-50% luminal stenosis which fills via [id number] collaterals. CARDIAC CHAMBERS: The cardiac chambers demonstrate [...] Anand Baugh 04/04/2025 1:16 AM Dictation workstation: [id number] us Kervin Deshpande MD IMG CT PROCEDURES Final Result * CARDIAC DEVICE CHECK - REMOTE - ICD (03/09/2025 9:38 AM EDT) Only the most recent of3 resultswithin the time period is included. Anatomical Region Laterality Modality Monitor/Device 03/09/2025 6:00 AM EDT us June Preston MD CV IMPLANTABLE CARDIAC DEVICE GA OCEDURES Final Result * Nuclear Stress Test [...] infarction, heart rate 66 bpm us Kervin Deshpande MD ECG ORDERABLES Final Result CPACS * POCT GLUCOSE (01/14/2025 10:38 AM EDT) Pathologist [facility] POCT Glucose 90 74 - 99 mg/dL 01/14/2025 10:40 AM EDT [facility] Blood Capillary blood specimen / Unknown 01/14/2025 10:38 AM EDT 01/14/2025 10:40 AM EDT Gayle Max MD LAB POINT OF CAR E TEST DOCKED DEVICE UNSOLICITED RESULTS Final Result [facility] [address] [place] [address] * (ABNORMAL) POCT GLUCOSE (01/14/2025 6:29 AM EDT) POCT Glucose 100(H) 74 - 99 mg/dL 01/14/2025 6:31 AM EDT [facility] Blood Capillary blood specimen / Unknown 01/14/2025 6:29 AM EDT 01/14/2025 6:31 AM EDT us Gayle Max MD LAB POINT OF CAR E TEST DOCKED DEVICE UNSOLICITED RESULTS Final Result Performing Organization Address [facility] Co de Phone Number [facility] [address] [place] [address] * Phosphorus (01/14/2025 5:22 AM EDT) Only the most recent of7 resultswithin the time period is included. Phosphorus 3.1 2.5 - 4.9 mg/dL LAB CHEMISTRY METHOD 01/14/2025 6:34 AM EDT [facility] Comment:The performance selena acteristics of phosphorus [...] Michelle MD LAB BLOOD ORDERABLES Final Result [facility] [address] [place] [address] * (ABNORMAL) Magnesium (01/14/2025 5:22 AM EDT) Only the most recent of7 resultswithin the time period is included. Magnesium 1.55(L) 1.60 - 2.40 mg/dL LAB CHEMISTRY METHOD 01/14/2025 6:34 AM EDT [facility] Blood Venous blood specimen / Unknown Venipuncture / Unknown 01/14/2025 5:22 AM EDT 01/14/2025 6:09 AM EDT Srinivasa Michelle MD LAB BLOOD ORDERABLES Final Result [facility] [address] [place] [address] * (ABNORMAL) POCT GLUCOSE (01/13/2025 9:33 PM EDT) [facility] POCT Glucose 114(H) 74 - 99 mg/dL 01/13/2025 9:35 PM EDT [facility] Blood Capillary blood specimen / Unknown 01/13/2025 9:33 PM EDT 01/13/2025 9:35 PM EDT Gayle Max MD LAB POINT OF CAR E TEST DOCKED DEVICE UNSOLICITED RESULTS Final Result [facility] [address] [place] [address] * POCT GLUCOSE (01/13/2025 4:22 PM EDT) POCT Glucose 90 74 - 99 mg/dL 01/13/2025 4:23 PM EDT [facility] Blood Capillary blood specimen / Unknown 01/13/2025 4:22 PM EDT 01/13/2025 4:23 PM EDT us Gayle Max MD LAB POINT OF CAR E TEST DOCKED DEVICE UNSOLICITED RESULTS Final Result Performing Organization Address [facility]/ZIP Co de Phone Number [facility] [address] [place] [address] * (ABNORMAL) POCT GLUCOSE (01/13/2025 11:05 AM EDT) POCT Glucose 106(H) 74 - 99 mg/dL 01/13/2025 11:07 AM EDT [facility] Blood Capillary blood specimen / Unknown 01/13/2025 11:05 AM EDT 01/13/2025 11:07 AM EDT us Gayle Max MD LAB POINT OF CAR E TEST DOCKED DEVICE UNSOLICITED RESULTS Final Result Performing Organization Address [facility] Co de Phone Number [facility] [address] [place] [address] * POCT GLUCOSE (01/13/2025 7:26 AM EDT) POCT Glucose 82 74 - 99 mg/dL 01/13/2025 7:27 AM EDT [facility] Blood Capillary blood specimen / Unknown 01/13/2025 7:26 AM EDT 01/13/2025 7:27 AM EDT Gayle Max MD LAB POINT OF CAR E TEST DOCKED DEVICE UNSOLICITED RESULTS Final Result Performing Organization Address City/[facility]/ZIP Co de Phone Number [facility] [address] [place] [phone] * (ABNORMAL) Basic Metabolic Panel (01/13/2025 5:23 AM EDT) Only the most recent of3 resultswithin the time period is included. Glucose 80 74 - 99 mg/dL LAB CHEMISTRY METHOD 01/13/2025 6:28 AM EDT [facility] Sodium 132(L) 136 - 145 mmol/L LAB CHEMISTRY METHOD 01/13/2025 6:28 AM EDT [facility] Potassium 3.6 3.5 - 5.3 mmol/L LAB CHEMISTRY METHOD 01/13/2025 6:28 AM EDT [facility] Chloride 99 98 - 107 mmol/L LAB CHEMISTRY METHOD 01/13/2025 6:28 AM EDT [facility] Bicarbonate 27 21 - 32 mmol/L LAB CHEMISTRY METHOD 01/13/2025 6:28 AM EDT [facility] Anion Gap 10 10 - 20 mmol/L LAB CHEMISTRY METHOD 01/13/2025 6:28 AM EDT [facility] Urea Nitrogen 7 6 - 23 mg/dL LAB CHEMISTRY METHOD 01/13/2025 6:28 AM EDT [facility] Creatinine 0.44(L) 0.50 - 1.05 mg/dL LAB CHEMISTRY METHOD 01/13/2025 6:28 AM EDT [facility] eGFR >90 >60 mL/min/1. 73m*2 LAB CHEMISTRY METHOD 01/13/2025 6:28 AM EDT [facility] Comment: Calculations of estimated GFR are performed using the 2020 CKD-EPI Study Refit equation without the race variable for the IDMS-Traceable creatinine methods. https://jasn.asnjournals.org/content//ASN.1498307550 Calcium 8.2(L) 8.6 - 10.3 mg/dL LAB CHEMISTRY METHOD 01/13/2025 6:28 AM T [facility] Blood Venous blood specimen / Unknown Venipuncture / Unknown 01/13/2025 5:23 AM EDT 01/13/2025 5:54 AM EDT us Gayle Max MD LAB BLOOD ORDERABLES Fin al Result [facility] [address] [place] [address] * Lavender Top (01/13/2025 5:19 AM EDT) Extra Tube Hold for add-ons. 01/13/2025 7:01 AM EDT [facility] Comment:Auto resulted. Blood Venous blood specimen / Unknown 01/13/2025 5:19 AM EDT 01/13/2025 5:56 AM EDT us Gayle Max MD LAB BLOOD ORDERABLES Fin al Result Performing Organization Address City/[facility]/ZIP Co de Phone Number [facility] [address] [place] [address] * POCT GLUCOSE (01/13/2025 12:27 AM EDT) POCT Glucose 89 74 - 99 mg/dL 01/13/2025 12:29 AM EDT [facility] Blood Capillary blood specimen / Unknown 01/13/2025 12:27 AM EDT 01/13/2025 12:29 AM EDT us Gayle Max MD LAB POINT OF CAR E TEST DOCKED DEVICE UNSOLICITED RESULTS Final Result Performing Organization Address [facility]/ZIP Co de Phone Number [facility] [address] [place] [address] * (ABNORMAL) POCT GLUCOSE (01/12/2025 7:39 PM EDT) POCT Glucose 157(H) 74 - 99 mg/dL 01/12/2025 7:41 PM EDT [facility] Blood Capillary blood specimen / Unknown 01/12/2025 7:39 PM EDT 01/12/2025 7:41 PM EDT us Gayle Max MD LAB POINT OF CAR E TEST DOCKED DEVICE UNSOLICITED RESULTS Final Result Performing Organization Address City/[facility]/ZIP Co de Phone Number [facility] [address] [place] [phone] * POCT GLUCOSE (01/12/2025 4:08 PM EDT) POCT Glucose 92 74 - 99 mg/dL 01/12/2025 4:10 PM EDT [facility] Blood Capillary blood specimen / Unknown 01/12/2025 4:08 PM EDT 01/12/2025 4:10 PM EDT us Gayle Max MD LAB POINT OF CAR E TEST DOCKED DEVICE UNSOLICITED RESULTS Final Result [facility] [address] [place] [id number] * POCT GLUCOSE (01/12/2025 11:02 AM EDT) POCT Glucose 93 74 - 99 mg/dL 01/12/2025 11:04 AM EDT [facility] Blood Capillary blood specimen / Unknown 01/12/2025 11:02 AM EDT 01/12/2025 11:04 AM EDT us Gayle Max MD LAB POINT OF CAR E TEST DOCKED DEVICE UNSOLICITED RESULTS Final Result Performing Organization Address [facility]/ZIP Co de Phone Number [facility] [address] [place] [address] * (ABNORMAL) POCT GLUCOSE (01/12/2025 7:02 AM EDT) POCT Glucose 113(H) 74 - 99 mg/dL 01/12/2025 7:03 AM EDT [facility] Blood Capillary blood specimen / Unknown 01/12/2025 7:02 AM EDT 01/12/2025 7:03 AM EDT us Gayle Max MD LAB POINT OF CAR E TEST DOCKED DEVICE UNSOLICITED RESULTS Final Result Performing Organization Address City/[facility]/ZIP Co de Phone Number [facility] [address] [place] [address] * POCT GLUCOSE (01/12/2025 6:39 AM EDT) POCT Glucose 77 74 - 99 mg/dL 01/12/2025 6:40 AM EDT [facility] Blood Capillary blood specimen / Unknown 01/12/2025 6:39 AM EDT 01/12/2025 6:40 AM EDT us Gayle Max MD LAB POINT OF CAR E TEST DOCKED DEVICE UNSOLICITED RESULTS Final Result [facility] [address] [place] [address] * (ABNORMAL) CBC (01/12/2025 5:19 AM EDT) Only the most recent of4 resultswithin the time period is included. WBC 7.6 4.4 - 11.3 x10*3/uL LAB HEMATOLOGY METHOD 01/12/2025 6:13 AM EDT [facility] nRBC 0.0 0.0 - 0.0 /100 WBCs LAB HEMATOLOGY METHOD 01/12/2025 6:13 AM T [facility] RBC 3.54(L) 4.00 - 5.20 x10*6/uL LAB HEMATOLOGY METHOD 01/12/2025 6:13 AM [facility] Hemoglobin 8.7(L) 12.0 - 16.0 g/dL LAB HEMATOLOGY METHOD 01/12/2025 6:13 AM T [facility] Hematocrit 26.1(L) 36.0 - 46.0 % LAB HEMATOLOGY METHOD 01/12/2025 6:13 [facility] MCV 74(L) 80 - 100 fL LAB HEMATOLOGY METHOD 01/12/2025 6:13 AM EDT [facility] MCH 24.6(L) 26.0 - 34.0 pg LAB HEMATOLOGY METHOD 01/12/2025 6:13 AM EDT [facility] MCHC 33.3 32.0 - 36.0 g/dL LAB HEMATOLOGY METHOD 01/12/2025 6:13 AM EDT [facility] RDW 17.1(H) 11.5 - 14.5 % LAB HEMATOLOGY METHOD 01/12/2025 6:13 AM EDT [facility] Platelets 244 150 - 450 x10*3/uL LAB HEMATOLOGY METHOD 01/12/2025 6:13 AM EDT [facility] Blood Venous blood specimen / Unknown Venipuncture / Unknown 01/12/2025 5:19 AM EDT 01/12/2025 6:06 AM EDT us Gayle Max MD LAB BLOOD ORDERABLES Fin al Result [facility] [address] [place] [address] * POCT GLUCOSE (01/11/2025 8:48 PM EDT) POCT Glucose 98 74 - 99 mg/dL 01/11/2025 8:50 PM EDT [facility] Blood Capillary blood specimen / Unknown 01/11/2025 8:48 PM EDT 01/11/2025 8:50 PM EDT us Gayle Max MD LAB POINT OF CAR E TEST DOCKED DEVICE UNSOLICITED RESULTS Final Result Performing Organization Address City/[facility]/ZIP Co de Phone Number [facility] [address] [place] [phone] * POCT GLUCOSE (01/11/2025 4:05 PM EDT) POCT Glucose 89 74 - 99 mg/dL 01/11/2025 4:07 PM EDT [facility] Blood Capillary blood specimen / Unknown 01/11/2025 4:05 PM EDT 01/11/2025 4:07 PM EDT us Gayle Max MD LAB POINT OF CAR E TEST DOCKED DEVICE UNSOLICITED RESULTS Final Result Performing Organization Address City/[facility]/ZIP Co de Phone Number [facility] [address] [place] [address] * POCT GLUCOSE (01/11/2025 11:04 AM EDT) [facility] POCT Glucose 91 74 - 99 mg/dL 01/11/2025 11:06 AM EDT [facility] Blood Capillary blood specimen / Unknown 01/11/2025 11:04 AM EDT 01/11/2025 11:06 AM EDT Gayle Max MD LAB POINT OF CAR E TEST DOCKED DEVICE UNSOLICITED RESULTS Final Result Performing Organization Address [facility] Co de Phone Number [facility] [address] [place] [address] * Stool Pathogen Panel, PCR (01/11/2025 10:31 AM EDT) [facility] Campylobacter Group Not Detected Not Detected 01/12/2025 7:00 AM EDT [facility] Salmonella species Not Detected Not Detected 01/12/2025 7:00 AM EDT [facility] Shigella species Not Detected Not Detected 01/12/2025 7:00 AM EDT [facility] Vibrio Group Not Detected Not Detected 01/12/2025 7:00 AM EDT [facility] Yersinia Enterocolitica Not Detected Not Detected 01/12/2025 7:00 AM EDT [facility] Shiga Toxin 1 Not Detected Not Detected 01/12/2025 7:00 AM EDT [facility] Shiga Toxin 2 Not Detected Not Detected 01/12/2025 7:00 AM EDT [facility] Norovirus GI/GII Not Detected Not Detected 01/12/2025 7:00 AM EDT [facility] Rotavirus A Not Detected Not Detected 01/12/2025 7:00 AM EDT [facility] Stool Stool / Unknown 01/11/2025 1 0:31 AM EDT 01/11/2025 10:38 AM EDT us Gayle Max MD LAB MICROBIOLOGY - GENER AL ORDERABLES Final Result [facility] [address] [facility] [address] [place] [address] * (ABNORMAL) POCT GLUCOSE (01/11/2025 6:32 AM EDT) POCT Glucose 123(H) 74 - 99 mg/dL 01/11/2025 6:33 AM EDT [facility] Blood Capillary blood specimen / Unknown 01/11/2025 6:32 AM EDT 01/11/2025 6:33 AM EDT us Gayle Max MD LAB POINT OF CAR E TEST DOCKED DEVICE UNSOLICITED RESULTS Final Result Performing Organization Address City/[facility]/ZIP Co de Phone Number [facility] [address] [place] [address] * (ABNORMAL) POCT GLUCOSE (01/10/2025 11:36 PM EDT) POCT Glucose 115(H) 74 - 99 mg/dL 01/10/2025 11:38 PM EDT [facility] Blood Capillary blood specimen / Unknown 01/10/2025 11:36 PM EDT 01/10/2025 11:38 PM EDT us Gayle Max MD LAB POINT OF CAR E TEST DOCKED DEVICE UNSOLICITED RESULTS Final Result [facility] [address] [place] [address] * (ABNORMAL) POCT GLUCOSE (01/10/2025 7:46 PM EDT) POCT Glucose 108(H) 74 - 99 mg/dL 01/10/2025 7:48 PM EDT [facility] Blood Capillary blood specimen / Unknown 01/10/2025 7:46 PM EDT 01/10/2025 7:48 PM EDT us Gayle Max MD LAB POINT OF CAR E TEST DOCKED DEVICE UNSOLICITED RESULTS Final Result [facility] [address] [place] [address] * (ABNORMAL) POCT GLUCOSE (01/10/2025 2:44 PM EDT) [facility] POCT Glucose 108(H) 74 - 99 mg/dL 01/10/2025 2:46 PM EDT [facility] Blood Capillary blood specimen / Unknown 01/10/2025 2:44 PM EDT 01/10/2025 2:46 PM EDT us Gayle Max MD LAB POINT OF CAR E TEST DOCKED DEVICE UNSOLICITED RESULTS Final Result Performing Organization Address City/[facility]/ZIP Co de Phone Number [facility] [address] [place] [address] * Heparin Assay (01/10/2025 11:56 AM EDT) Only the most recent of5 resultswithin the time period is included. [facility] Heparin Unfractionated 0.3 See Comment Below for Therapeutic Ranges IU/mL LAB COAGULATION METHOD 01/10/2025 12:14 PM EDT [facility] Blood Venous blood specimen / Unknown Venipuncture / Unknown 01/10/2025 11:56 AM EDT 01/10/2025 11:59 AM EDT Narrative [facility] - 01/10/2025 12:14 PM EDT The therapeutic reference range for UFH may be either 0.3-0.6 IU/mL or 0.3-0.7 IU/mL based on the clinical setting for anticoagulant therapy and the associated nomogram used. For Heparin dosing guidelines based on clinical scenario and Heparin Assay results, please refer to local Pharmacy and the [facility] Guidelines for Anticoagulation Therapy available on the [facility] intranet at: [email or web address] _[email or web address] us Gayle Max MD LAB BLOOD ORDERABLES Fin al Result Performing Organization Address City/[facility]/ZIP Co de Phone Number [facility] [address] [place] [phone] * POCT GLUCOSE (01/10/2025 10:54 AM EDT) POCT Glucose 79 74 - 99 mg/dL 01/10/2025 10:56 AM EDT [facility] Blood Capillary blood specimen / Unknown 01/10/2025 10:54 AM EDT 01/10/2025 10:56 AM EDT us Gayle Max MD LAB POINT OF CAR E TEST DOCKED DEVICE UNSOLICITED RESULTS Final Result Performing Organization Address [facility]/ZIP Co de Phone Number [facility] [address] [place] [address] * POCT GLUCOSE (01/10/2025 6:48 AM EDT) [facility] POCT Glucose 94 74 - 99 mg/dL 01/10/2025 6:49 AM EDT [facility] Blood Capillary blood specimen / Unknown 01/10/2025 6:48 AM EDT 01/10/2025 6:49 AM EDT us Gayle Max MD LAB POINT OF CAR E TEST DOCKED DEVICE UNSOLICITED RESULTS Final Result Performing Organization Address [facility]/ZIP Co de Phone Number [facility] [address] [place] [address] * (ABNORMAL) Comprehensive Metabolic Panel (01/10/2025 5:21 AM EDT) Only the most recent of3 resultswithin the time period is included. Glucose 84 74 - 99 mg/dL LAB CHEMISTRY METHOD 01/10/2025 6:46 AM [facility] Sodium 128(L) 136 - 145 mmol/L LAB CHEMISTRY METHOD 01/10/2025 6:46 AM [facility] Potassium 3.6 3.5 - 5.3 mmol/L LAB CHEMISTRY METHOD 01/10/2025 6:46 AM [facility] Chloride 95(L) 98 - 107 mmol/L LAB CHEMISTRY METHOD 01/10/2025 6:46 AM [facility] Bicarbonate 23 21 - 32 mmol/L LAB CHEMISTRY METHOD 01/10/2025 6:46 AM [facility] Anion Gap 14 10 - 20 mmol/L LAB CHEMISTRY METHOD 01/10/2025 6:46 AM [facility] Urea Nitrogen 11 6 - 23 mg/dL LAB CHEMISTRY METHOD 01/10/2025 6:46 AM [facility] Creatinine 0.61 0.50 - 1.05 mg/dL LAB CHEMISTRY METHOD 01/10/2025 6:46 AM [facility] eGFR >90 >60 mL/min/1. 73m*2 LAB CHEMISTRY METHOD 01/10/2025 6:46 AM [facility] Comment: Calculations of estimated GFR are performed using the 2020 CKD-EPI Study Refit equation without the race variable for the IDMS-Traceable creatinine methods. https://jasn.asnjournals.org/content//ASN.8961168041 Calcium 8.0(L) 8.6 - 10.3 mg/dL LAB CHEMISTRY METHOD 01/10/2025 6:46 AM [facility] Albumin 2.9(L) 3.4 - 5.0 g/dL LAB CHEMISTRY METHOD 01/10/2025 6:46 AM [facility] Alkaline Phosphatase 35 33 - 136 U/L LAB CHEMISTRY METHOD 01/10/2025 6:46 AM [facility] Total Protein 5.7(L) 6.4 - 8.2 g/dL LAB CHEMISTRY METHOD 01/10/2025 6:46 AM [facility] AST 37 9 - 39 U/L LAB CHEMISTRY METHOD 01/10/2025 6:46 AM EDT [facility] Bilirubin, Total 0.2 0.0 - 1.2 mg/dL LAB CHEMISTRY METHOD 01/10/2025 6:46 AM EDT [facility] ALT 23 7 - 45 U/L LAB CHEMISTRY METHOD 01/10/2025 6:46 AM EDT [facility] Comment:Patients treated wit h Sulfasalazine may generate falsely decreased results for ALT. Blood Venous blood specimen / Unknown Venipuncture / Unknown 01/10/2025 5:21 AM EDT 01/10/2025 6:09 AM EDT us Srinivasa Michelle MD LAB BLOOD ORDERABLES Final Result [facility] [address] [place] [address] * POCT GLUCOSE (01/10/2025 5:08 AM EDT) POCT Glucose 93 74 - 99 mg/dL 01/10/2025 5:11 AM EDT [facility] Blood Capillary blood specimen / Unknown 01/10/2025 5:08 AM EDT 01/10/2025 5:11 AM EDT Gayle Max MD LAB POINT OF CAR E TEST DOCKED DEVICE UNSOLICITED RESULTS Final Result [facility] [address] [place] [address] * (ABNORMAL) POCT GLUCOSE (01/10/2025 12:39 AM EDT) POCT Glucose 104(H) 74 - 99 mg/dL 01/10/2025 12:42 AM EDT [facility] Blood Capillary blood specimen / Unknown 01/10/2025 12:39 AM EDT 01/10/2025 12:42 AM EDT us Gayle Max MD LAB POINT OF CAR E TEST DOCKED DEVICE UNSOLICITED RESULTS Final Result Performing Organization Address [facility]/ZIP Co de Phone Number [facility] [address] [place] [phone] * POCT GLUCOSE (01/09/2025 9:17 PM EDT) POCT Glucose 91 74 - 99 mg/dL 01/09/2025 9:38 PM EDT [facility] Blood Capillary blood specimen / Unknown 01/09/2025 9:17 PM EDT 01/09/2025 9:38 PM EDT us Gayle Max MD LAB POINT OF CAR E TEST DOCKED DEVICE UNSOLICITED RESULTS Final Result Performing Organization Address [facility] Co de Phone Number [facility] [address] [place] [address] * POCT GLUCOSE (01/09/2025 6:56 PM EDT) POCT Glucose 81 74 - 99 mg/dL 01/09/2025 6:58 PM EDT [facility] Blood Capillary blood specimen / Unknown 01/09/2025 6:56 PM EDT 01/09/2025 6:58 PM EDT us Michelle Snowden MD LAB POINT OF CARE TEST DOCKED DEVICE UNSOLICITED RESULTS Final Result Performing Organization Address City/[facility]/ZIP Co de Phone Number [facility] [address] [place] [address] * (ABNORMAL) POCT GLUCOSE (01/09/2025 3:33 PM EDT) POCT Glucose 104(H) 74 - 99 mg/dL 01/09/2025 3:35 PM EDT [facility] Blood Capillary blood specimen / Unknown 01/09/2025 3:33 PM EDT 01/09/2025 3:35 PM EDT us Michelle Snowden MD LAB POINT OF CARE TEST DOCKED DEVICE UNSOLICITED RESULTS Final Result [facility] [address] [place] [address] * TRANSTHORACIC ECHO (TTE) COMPLETE WITH CONTRAST [...] Narrative SYNGO - 01/10/2025 8:51 AM EDT [address] [address] TRANSTHORACIC ECHOCARDIOGRAM REPORT Patient Name: KING Gregory Physician: [id number] Issa DO Study Date: 01/09/2025 Ordering Provider: [id number] DANI DODGE MRN/PID: [id number] Fellow: Nurse: Date of /Age: 1 1960 / 64 years Steel Analyst: Gege Balbuena RDCS Gender Assigned at F Additional Staff: : Height: 157.48 cm Admit Date: 01/08/2025 Weight: 67.59 kg Admission Status: Inpatient - Routine BSA / BMI: 1.69 m2 / 27.25 Department Location: [facility] kg/m2 Blood Pressure: 101 /55 mmHg Study Type: TRANSTHORACIC ECHO (TTE) COMPLETE Diagnosis/ICD: Ventricular tachycardia, other-I47.29 Indication: Multiple ICD firings CPT Codes: Echo Complete w Full Doppler-[id number] Patient History: Pacer/Defib: AICD Pertinent History: HTN, [...] LA Area A2C: 19.2 cm2 LA [place] A4C: 6.3 cm LA [place] A2C: 5.7 cm LA Volume Index: 33.4 ml/m2 RIGHT ATRIUM: Normal Ranges: RA Vol A4C: 32.8 ml (8.3-19.5ml) RA Vol Index A4C: 19.4 ml/m2 RA Area A4C: 13.1 cm2 RA [place] A4C: 4.4 cm LV SYSTOLIC FUNCTION: Normal [...] 1.0 m/s (0.6-0.9m/s) PV Max P.9 mmHg [id number] Augustus Issa Electronically signed on 01/10/2025 at 8:51:17 AM Wall Scoring Final Procedure Note MaeganAugustus, - 01/10/2025 [place] [id number] TRANSTHORACIC ECHOCARDIOGRAM REPORT Patient Name: KING MORENO Reading Physician: Demario Negrete Study Date: 01/09/2025 Ordering Provider: [id number] JAMES DODGE MRN/PID: [id number] Fellow: Nurse: Date of /Age: 1 1960 / 64 years Steel Analyst: Yana MURPHY Gender Assigned at F Additional Staff: : Height: 157.48 cm Admit Date: 01/08/2025 Weight: 67.59 kg Admission Status: Inpatient- Routine BSA / BMI: 1.69 m2 / 27.25 Department Location: [facility]/ Blood Pressure: 101 /55 mmHg Study Type: TRANSTHORACIC ECHO (TTE) COMPLETE Diagnosis/ICD: Ventricular tachycardia, other-I47.29 Indication: Multiple ICD firings CPT Codes: Echo Complete w Full Doppler-[id number] Patient History: Pacer/Defib: AICD Pertinent History: HTN, [...] LA Area A2C: 19.2 cm2 LA [place] A4C: 6.3 cm LA [place] A2C: 5.7 cm LA Volume Index: 33.4 ml/m2 RIGHT ATRIUM: Normal Ranges: RA Vol A4C: 32.8 ml (8.3-19.5ml) RA Vol Index A4C: 19.4 ml/m2 RA Area A4C: 13.1 cm2 RA [place] A4C: 4.4 cm LV SYSTOLIC FUNCTION: Normal [...] 1.0 m/s (0.6-0.9m/s) PV Max P.9 mmHg [id number] Augustus Issa DO Electronically signed on 01/10/2025 at 8:51:17 AM Wall Scoring Final us Srinivasa Michelle MD CV ECHO PROCEDURES Final Re sult Performing Organization Address City/[facility] Co de Phone Number SY[facility] * (ABNORMAL) POCT GLUCOSE (01/09/2025 10:48 AM EDT) Pathologist [facility] POCT Glucose 102(H) 74 - 99 mg/dL 01/09/2025 10:50 AM EDT [facility] Blood Capillary blood specimen / Unknown 01/09/2025 10:48 AM EDT 01/09/2025 10:50 AM EDT us Yonis Fishman MD LAB POINT OF CAR E TEST DOCKED DEVICE UNSOLICITED RESULTS Final Result Performing Organization Address City/[facility]/ZIP Co de Phone Number [facility] [address] [place] [address] * SST TOP (01/09/2025 9:55 AM EDT) Only the most recent of2 resultswithin the time period is included. Pathologist [facility] Extra Tube Hold for add-ons. 01/09/2025 12:02 PM EDT [facility] Comment:Auto resulted. Blood Venous blood specimen / Unknown 01/09/2025 9:55 AM EDT 01/09/2025 10:31 AM EDT Yonis Fishman MD LAB BLOOD ORDERABLES Fin al Result Performing Organization Address [facility] Co de Phone Number [facility] [address] [place] [address] * MRSA Surveillance for Vancomycin De-escalation, PCR (01/09/2025 12:34 AM EDT) [facility] MRSA PCR Not Detected Not Detected X_PERT XPRESS SARS-COV2_ CEPHEID_EU A 01/09/2025 2:04 AM EDT [facility] Swab (Anterior Nares) Non-blood Collection / Unknown 01/09/2025 12:34 AM EDT 01/09/2025 12:41 AM EDT Narrative [facility] - 01/09/2025 2:04 AM EDT This [...] ORD ERABLES Final Result Performing Organization Address [facility]/State/ZIP Co de Phone Number [facility] [address] [place] [address] * Streptococcus pneumoniae Antigen, Urine (01/08/2025 11:59 PM EDT) Streptococcus pneumoniae Ag, Urine Negative Negative 01/09/2025 11:55 AM EDT [facility] Urine Urine specimen / Unknown Non-blood Collection / Unknown 01/08/2025 11:59 PM EDT 01/09/2025 12:41 AM EDT Triny Sol PA-C LAB MICROBIOLOGY - GENERAL ORD ERABLES Final Result [facility] [address] [place] [address] * Legionella Antigen, Urine (01/08/2025 11:59 PM EDT) L. pneumophila Urine Ag Negative Negative 01/09/2025 11:55 AM EDT [facility] Urine Urine specimen / Unknown Non-blood Collection / Unknown 01/08/2025 11:59 PM EDT 01/09/2025 12:41 AM EDT Triny Sol PA-C LAB MICROBIOLOGY - GENERAL ORD ERABLES Final Result [facility] [address] [place] [address] * (ABNORMAL) Urinalysis with Reflex Microscopic (01/08/2025 11:59 PM EDT) Color, Urine Light-Yellow Light-Yellow , Yellow, Dark-Yellow 01/09/2025 1:17 AM EDT [facility] Appearance, Urine Clear Clear 01/09/2025 1:17 AM EDT [facility] Specific [place], Urine 1.009 1.005 - 1.035 01/09/2025 1:17 AM EDT [facility] pH, Urine 5.0 5.0, 5.5, 6.0, 6.5, 7.0, 7.5, 8.0 01/09/2025 1:17 AM EDT [facility] Protein, Urine NEGATIVE NEGATIVE, 10 (TRACE), 20 (TRACE) mg/dL 01/09/2025 1:17 AM EDT [facility] Glucose, Urine OVER (4+)(A) Normal mg/dL 01/09/2025 1:17 AM EDT [facility] Blood, Urine NEGATIVE NEGATIVE mg/dL 01/09/2025 1:17 AM EDT [facility] Ketones, Urine NEGATIVE NEGATIVE mg/dL 01/09/2025 1:17 AM EDT [facility] Bilirubin, Urine NEGATIVE NEGATIVE mg/dL 01/09/2025 1:17 AM T [facility] Urobilinogen, Urine Normal Normal mg/dL 01/09/2025 1:17 AM EDT [facility] Nitrite, Urine NEGATIVE NEGATIVE 01/09/2025 1:17 AM EDT [facility] Leukocyte Esterase, Urine NEGATIVE NEGATIVE 01/09/2025 1:17 AM T [facility] Urine Urine specimen / Unknown Non-blood Collection / Unknown 01/08/2025 11:59 PM EDT 01/09/2025 12:41 AM EDT [facility] - 01/09/2025 1:17 AM EDT OVER is reported when the result is greater than the clinically reportable range. us Triny Sol PA-C LAB URINE ORDERABLES Final Res ult [facility] [address] [place] [address] * VERIFY ABO/Rh Group Test (01/08/2025 10:39 PM EDT) ABO TYPE A 01/08/2025 10:56 PM EDT [facility] Rh TYPE POS 01/08/2025 10:56 PM EDT [facility] Blood Venous blood specimen / Unknown Venipuncture / Unknown 01/08/2025 10:39 PM EDT 01/08/2025 10:43 PM EDT Otis Iglesia Chappell [facility] TEST ORDERAB LES Final Result Performing Organization Address City/[facility]/ZIP Co de Phone Number [facility] [address] [place] [address], * (ABNORMAL) POCT GLUCOSE (01/08/2025 10:38 PM EDT) Pathologist [facility] POCT Glucose 106(H) 74 - 99 mg/dL 01/08/2025 10:39 PM EDT [facility] Blood Capillary blood specimen / Unknown 01/08/2025 10:38 PM EDT 01/08/2025 10:39 PM EDT Otis Iglesia Chappell LAB POINT OF CARE T EST DOCKED DEVICE UNSOLICITED RESULTS Final Result Performing Organization Address City/[facility]/ZIP Co de Phone Number [facility] [address] [place] [address] * (ABNORMAL) Procalcitonin (01/08/2025 9:34 PM EDT) [facility] Procalcitonin 0.39(H) <=0.07 ng/mL LAB CHEMISTRY METHOD 01/09/2025 11:53 AM EDT [facility] Blood Venous blood specimen / Unknown Venipuncture / Unknown 01/08/2025 9:34 PM EDT 01/08/2025 9:38 PM EDT Narrative [facility] - 01/09/2025 11:53 AM EDT [...] immunomodulatory medications has not been evaluated. Triny GATES BLOOD ORDERABLES Final Res ult Performing Organization Address [facility] Co de Phone Number [facility] [address] [place] [address] * RSV PCR (01/08/2025 9:33 PM EDT) Pathologist [facility] RSV PCR Not Detected Not Detected X_PERT XPRESS SARS-COV2_ CEPHEID_EU A 01/08/2025 11:23 PM EDT [facility] Swab Nasopharyngeal swab / Unknown Non-blood Collection / Unknown 01/08/2025 9:33 PM EDT 01/08/2025 10:43 PM EDT [facility] - 01/08/2025 11:23 PM EDT This assay is an FDA-cleared, in vitro diagnostic nucleic acid amplification test for the detection of RSV from nasopharyngeal specimens, and has been validated for use at [facility]. Negative results do not preclude RSV infections, and should not be used as the sole basis for diagnosis, treatment, or other management decisions. If Influenza A/B and RSV PCR results are negative, testing for Parainfluenza virus, Adenovirus and Metapneumovirus is routinely performed for pediatric oncology and intensive care inpatients at [facility], and is available on other patients by placing an add-on request. Triny [facility] DANYEL GOMEZ Final Result Performing Organization Address City/[facility]/ZIP Co de Phone Number [facility] [address] [place] [address] * (ABNORMAL) Sars-CoV-2 and Influenza A/B PCR (01/08/2025 9:33 PM EDT) Pathologist [facility] Flu A Result Detected(A) Not Detected X_PERT XPRESS SARS-COV2 _CEPHEID_ EUA 01/08/2025 11:23 PM EDT [facility] Flu B Result Not Detected Not Detected X_PERT XPRESS SARS-COV2 _CEPHEID_ EUA 01/08/2025 11:23 PM EDT [facility] Coronavirus 2019, PCR Not Detected Not Detected X_PERT XPRESS SARS-COV2 _CEPHEID_ EUA 01/08/2025 11:23 PM EDT [facility] Swab Nasopharyngeal swab / Unknown Non-blood Collection / Unknown 01/08/2025 9:33 PM EDT 01/08/2025 10:43 PM EDT [facility] - 01/08/2025 11:23 PM EDT This assay is an FDA-cleared, in vitro diagnostic nucleic acid amplification test for the qualitative detection and differentiation of SARS CoV-2/ Influenza A/B from nasopharyngeal specimens collected from individuals with signs and symptoms of respiratory tract infections, and has been validated for use at [facility]. Negative results do not preclude COVID-19/ Influenza A/B infections and should not be used as the sole basis for diagnosis, treatment, or other management decisions. Testing for SARS CoV-2 is recommended only for patients who meet current clinical and/or epidemiological criteria defined by federal, state, or local public health directives. Triny Sol PA-C LAB MOLECULAR DIAGNOSTICS DANYEL GOMEZ Final Result [facility] [address] [place] [address] * Staphylococcus aureus/MRSA colonization, Culture (01/08/2025 9:33 PM EDT) [facility] Staph/MRSA Screen Culture No Staphylococcus aureus isolated 01/10/2025 11:36 AM EDT [facility] Swab (Anterior Nares) Non-blood Collection / Unknown 01/08/2025 9:33 PM EDT 01/08/2025 10:43 PM EDT Triny Sol PA-C LAB MICROBIOLOGY - GENERAL ORD ERABLES Final Result Performing Organization Address [facility]/ZIP Co de Phone Number [facility] [address] [place] [phone] * Blood Culture (01/08/2025 8:47 PM EDT) Blood Culture No growth at 4 days - FINAL REPORT AUTOMATED MICROBIAL DETECTION SYSTEM ([facility]) 01/13/2025 3:02 AM EDT [facility] Blood culture Venous blood specimen / Unknown Blood Culture / Unknown 01/08/2025 8:47 PM EDT 01/08/2025 8:51 PM EDT Triny JOSEPHC LAB MICROBIOLOGY - GENERAL ORD ERABLES Final Result Performing Organization Address [facility] Co de Phone Number [facility] [address] [place] [address] * Lactate (01/08/2025 8:47 PM EDT) Lactate 1.0 0.4 - 2.0 mmol/L LAB CHEMISTRY METHOD 01/08/2025 9:11 PM EDT [facility] Blood Venous blood specimen / Unknown Venipuncture / Unknown 01/08/2025 8:47 PM EDT 01/08/2025 8:51 PM EDT Narrative [facility] - 01/08/2025 9:11 PM EDT Venipuncture immediately after or during the administration of Metamizole may lead to falsely low results. Testing should be performed immediately prior to Metamizole dosing. Triny JOSEPHC LAB BLOOD ORDERABLES Final Res ult [facility] [address] [place] [address] * (ABNORMAL) Troponin, High Sensitivity, 1 Hour (01/08/2025 8:46 PM EDT) Pathologist [facility] Troponin I, High Sensitivity 28(H) 0 - 13 ng/L LAB IMMUNOASSAY METHOD 01/08/2025 9:19 PM EDT [facility] Blood Venous blood specimen / Unknown Venipuncture / Unknown 01/08/2025 8:46 PM EDT 01/08/2025 8:51 PM EDT [facility] - 01/08/2025 9:19 PM EDT Less [...] performed using a different testing methodology at [facility] than at other [facility]. Direct result comparisons should only be made within the same method. Dani Dodge IT SYSTEMS ENGINEER-MAINS AND SERVICE SUPERVISOR, DNP LAB BLOOD ORDERAB LES Final Result [facility] [address] [place] [address] * BB ORDER ONLY - Antibody Identification (01/08/2025 8:46 PM EDT) [facility] Antibody ID Anti-c and Inconclusive 01/11/2025 2:26 PM EDT [facility] CASE # 01/11/2025 2:26 PM EDT [facility] Blood Venous blood specimen / Unknown Venipuncture / Unknown 01/08/2025 8:46 PM EDT 01/08/2025 8:51 PM EDT [employer] LAB BLOOD BANK TEST ORDERABLES Final Result Performing Organization Address [facility] Co de Phone Number [facility] [address] [place] [address], * Type and screen (01/08/2025 8:46 PM EDT) ABO TYPE A 01/08/2025 9:38 PM EDT [facility] Rh TYPE POS 01/08/2025 9:38 PM EDT [facility] ANTIBODY SCREEN POS 9:38 PM EDT [facility] Blood Venous blood specimen / Unknown Venipuncture / Unknown 01/08/2025 8:46 PM EDT 01/08/2025 8:51 PM EDT [facility] BLOOD BANK TEST ORDERABLES Final Result Performing Organization Address [facility] Co de Phone Number [facility] [address] [place] [address], * XR chest 1 view (01/08/2025 8:06 PM EDT) Anatomical Region Laterality Modality Thoracic, Chest Computed Radiogr aphy 01/08/2025 8:19 PM EDT 01/08/2025 8:19 PM EDT Impressions 01/08/2025 8:17 PM EDT Right-sided airspace consolidation, as above. Clinical correlation and continued follow-up until clearing is recommended. MACRO: None. Signed by: Deion Bonilla 01/08/2025 8:17 PM Dictation workstation: [id number] Narrative 01/08/2025 8:17 PM EDT Interpreted By: Deion Bonilla, STUDY: XR CHEST 1 VIEW 01/08/2025 8:06 pm INDICATION: Signs/Symptoms:increased O2 COMPARISON: 09/01/2024 ACCESSION NUMBER(S): [id number] ORDERING CLINICIAN: TRINY SOL TECHNIQUE: A single [...] INDICATION: Signs/Symptoms:increased O2 COMPARISON: 09/01/2024 ACCESSION NUMBER(S): [id number] ORDERING CLINICIAN: TRINY SOL TECHNIQUE: A single [...] Deion Bonilla 01/08/2025 8:17 PM Dictation workstation: [id number] Triny Sol PA-C IMG XR PROCEDURES Final Result * (ABNORMAL) CBC and Auto Differential (01/08/2025 7:21 PM EDT) WBC 17.1(H) 4.4 - 11.3 x10*3/uL LAB HEMATOLOGY METHOD 01/08/2025 7:28 PM EDT [facility] nRBC 0.1(H) 0.0 - 0.0 /100 WBCs LAB HEMATOLOGY METHOD 01/08/2025 7:28 PM EDT [facility] RBC 4.09 4.00 - 5.20 x10*6/uL LAB HEMATOLOGY METHOD 01/08/2025 7:28 PM EDT [facility] Hemoglobin 10.4(L) 12.0 - 16.0 g/dL LAB HEMATOLOGY METHOD 01/08/2025 7:28 PM [facility] Hematocrit 30.7(L) 36.0 - 46.0 % LAB HEMATOLOGY METHOD 01/08/2025 7:28 PM [facility] MCV 75(L) 80 - 100 fL LAB HEMATOLOGY METHOD 01/08/2025 7:28 PM [facility] MCH 25.4(L) 26.0 - 34.0 pg LAB HEMATOLOGY METHOD 01/08/2025 7:28 PM [facility] MCHC 33.9 32.0 - 36.0 g/dL LAB HEMATOLOGY METHOD 01/08/2025 7:28 PM [facility] RDW 16.6(H) 11.5 - 14.5 % LAB HEMATOLOGY METHOD 01/08/2025 7:28 PM [facility] Platelets 218 150 - 450 x10*3/uL LAB HEMATOLOGY METHOD 01/08/2025 7:28 PM [facility] Neutrophils % 84.0 40.0 - 80.0 % LAB HEMATOLOGY METHOD 01/08/2025 7:28 PM [facility] Immature Granulocytes %, Automated 0.4 0.0 - 0.9 % LAB HEMATOLOGY METHOD 01/08/2025 7:28 PM [facility] Comment:Immature Granulocyte Count (IG) includes promyelocytes, myelocytes and metamyelocytes but does not include bands. Percent differential counts (%) should be interpreted in the context of the absolute cell counts (cells/UL). Lymphocytes % 10.6 13.0 - 44.0 % LAB HEMATOLOGY METHOD 01/08/2025 7:28 PM [facility] Monocytes % 4.8 2.0 - 10.0 % LAB HEMATOLOGY METHOD 01/08/2025 7:28 PM [facility] Eosinophils % 0.0 0.0 - 6.0 % LAB HEMATOLOGY METHOD 01/08/2025 7:28 PM [facility] Basophils % 0.2 0.0 - 2.0 % LAB HEMATOLOGY METHOD 01/08/2025 7:28 PM [facility] Neutrophils Absolute 14.38(H) 1.20 - 7.70 x10*3/uL LAB HEMATOLOGY METHOD 01/08/2025 7:28 PM EDT [facility] Comment:Percent differential counts (%) should be interpreted in the context of the absolute cell counts (cells/uL). Immature Granulocytes Absolute, Automated 0.07 0.00 - 0.70 x10*3/uL LAB HEMATOLOGY METHOD 01/08/2025 7:28 PM EDT [facility] Lymphocytes Absolute 1.82 1.20 - 4.80 x10*3/uL LAB HEMATOLOGY METHOD 01/08/2025 7:28 PM EDT [facility] Monocytes Absolute 0.83 0.10 - 1.00 x10*3/uL LAB HEMATOLOGY METHOD 01/08/2025 7:28 PM EDT [facility] Eosinophils Absolute 0.00 0.00 - 0.70 x10*3/uL LAB HEMATOLOGY METHOD 01/08/2025 7:28 PM EDT [facility] Basophils Absolute 0.03 0.00 - 0.10 x10*3/uL LAB HEMATOLOGY METHOD 01/08/2025 7:28 PM EDT [facility] Blood Venous blood specimen / Unknown Venipuncture / Unknown 01/08/2025 7:21 PM EDT 01/08/2025 7:26 PM EDT Dani Dodge IT SYSTEMS ENGINEER-MAINS AND SERVICE SUPERVISOR, DNP LAB BLOOD ORDERAB LES Final Result [facility] [address] [place] [address] * (ABNORMAL) Troponin I, High Sensitivity, Initial (01/08/2025 7:21 PM EDT) Troponin I, High Sensitivity 29(H) 0 - 13 ng/L LAB IMMUNOASSAY METHOD 01/08/2025 7:52 PM EDT [facility] Blood Venous blood specimen / Unknown Venipuncture / Unknown 01/08/2025 7:21 PM EDT 01/08/2025 7:26 PM EDT Narrative [facility] - 01/08/2025 7:52 PM EDT Less [...] performed using a different testing methodology at [facility] than at other [facility]. Direct result comparisons should only be made within the same method. us Dani Dodge APRN-AMANDA, DNP LAB BLOOD ORDERAB LES Final Result Performing Organization Address [facility]/ZIP Co de Phone Number [facility] [address] [place] [address] * TSH with reflex to Free T4 if abnormal (01/08/2025 7:21 PM EDT) Thyroid Stimulating Hormone 2.12 0.44 - 3.98 mIU/L LAB IMMUNOASSAY METHOD 01/08/2025 8:19 PM EDT [facility] Blood Venous blood specimen / Unknown Venipuncture / Unknown 01/08/2025 7:21 PM EDT 01/08/2025 7:26 PM EDT Narrative [facility] - 01/08/2025 8:19 PM EDT TSH testing is performed using different testing methodology at [facility] than at other [facility]. Direct result comparisons should only be made within the same method. us Triny Sol PA-C LAB BLOOD ORDERABLES Final Res ult Performing Organization Address [facility]/ZIP Co de Phone Number [facility] [address] [place] [address] * Coagulation Screen (01/08/2025 7:21 PM EDT) Protime 10.9 9.8 - 12.4 seconds LAB COAGULATION METHOD 01/08/2025 7:39 PM EDT [facility] INR 1.0 0.9 - 1.1 LAB COAGULATION METHOD 01/08/2025 7:39 PM EDT [facility] aPTT 28 26 - 36 seconds LAB COAGULATION METHOD 01/08/2025 7:39 PM EDT [facility] Blood Venous blood specimen / Unknown Venipuncture / Unknown 01/08/2025 7:21 PM EDT 01/08/2025 7:26 PM EDT Narrative [facility] - 01/08/2025 7:39 PM EDT The APTT is no longer used for monitoring Unfractionated Heparin Therapy. For monitoring Heparin Therapy, use the Heparin Assay. Dani Dodge IT SYSTEMS ENGINEER-MAINS AND SERVICE SUPERVISOR, DNP LAB BLOOD ORDERAB LES Final Result [facility] [address] [place] [address] * (ABNORMAL) B-type natriuretic peptide (01/08/2025 7:21 PM EDT) Pathologist [facility] BNP 106(H) 0 - 99 pg/mL LAB IMMUNOASSAY METHOD 01/08/2025 8:16 PM EDT [facility] Blood Venous blood specimen / Unknown Venipuncture / Unknown 01/08/2025 7:21 PM EDT 01/08/2025 7:26 PM EDT Narrative [facility] - 01/08/2025 8:16 PM EDT <100 pg/mL - Heart failure unlikely 100-299 pg/mL - Intermediate probability of acute heart failure exacerbation. Correlate with clinical context and patient history. >=300 pg/mL - Heart Failure likely. Correlate with clinical context and patient history. BNP testing is performed using different testing methodology at [facility] than at other [facility]. Direct result comparisons should only be made within the same method. Triny Sol PA-C LAB BLOOD ORDERABLES Final Res ult [facility] [address] [place] [address] * Hemoglobin A1c (01/08/2025 7:21 PM EDT) Hemoglobin A1C 5.5 See comment % 025 11:45 PM EDT [facility] Estimated Average Glucose 111 Not Established mg/dL 01/08/2025 11:45 PM EDT [facility] Blood Venous blood specimen / Unknown Venipuncture / Unknown 01/08/2025 7:21 PM EDT 01/08/2025 7:26 PM EDT Narrative [facility] - 01/08/2025 11:45 PM EDT Diagnosis of Diabetes-Adults Non-Diabetic: < or = 5.6% Increased risk for developing diabetes: 5.7-6.4% Diagnostic of diabetes: > or = 6.5% Triny Sol PA-C LAB BLOOD ORDERABLES Final Res ult [facility] [id number] [place] [address] [id number] from Last 3 Months Insurance MEDICAID DUAL ADVANTAGE MEDICAID ANTHEM DUAL ADVANTAGE Advance Directives For more information, please contact: [phone] (Available ) * Full Code (Latest Code Status on File) Date Activated Date Inactivated Comments 11/26/2023 6:41 AM Question Answer Comments Plan of Care: Code Status Discussion Not Compl eted Decision Maker: Provider Rationale: Patient condition does not warra nt discussion Care Teams Structural Steel Erector Relationship Specialty Start Date End Date Conchita Aden MD [facility] [place] [address] PCP - General Family Medicine 11/11/24 June Preston MD [address] [facility] Bldg, [address] [place] [address] Mail Carrier And Clerk Electrophysiology 09/13/24
--- OUTSIDE RECORDS SUMMARY | 2025-04-08 13:09 | XMS_ITS | Encounter Summary ---
Author Organization [facility] Address [address] [place] [address] Phone Care Team Providers Care Field Court Researcher Name Role Phone June Preston MD Unavailable Conchita Aden MD Primary Care Provider [phone] Encounter Details Date Type Department Care Team (Late st Contact Info) Description 02/10/2025 Scanned Document [facility] [address] [place] [id number] Scanning, Generic Provider Social History Tobacco Use [...] from your doctor or pharmacy? Never 01/08/2025 [facility] Utilities Answer Date Recorded In the past 12 months has e [employer], oil, or water [employer] threatened to shut off services in your [...] week 01/08/2025 How often do you attend moravian or alevism serv ices? Patient declined 01/08/2025 Do you belong to any clubs o r organizations such as moravian groups, unions, fraternal or athletic groups, or [...] Recorded Patient Health Questionnaire-2 Score 0 01/08/2025 [facility] - [...] place to sleep or slept in a prison (including now)? No 02/16/2024 Housing Stability Vital [...] were you homeless or living in a prison (including now)? No 01/08/2025 Comments No Sex [...] Description 04/14/2025 9:30 AM EDT Hospital Encounter [facility] [place] [address] [place] [address] [place] [address] Kervin Fair MD [address] [place] [address] Ventricular tachycardia (Multi) 04/14/2025 11:00 AM EDT - 04/14/2025 3:00 PM EDT Surgery [facility] [place] [address] [place] [address] [place] [address] Kervin Fair MD [address] [place] [address] [place] [[address] (CPT )] 07/14/2025 1:00 PM EDT Office Visit [facility] [address] [facility] [address] [place] [address] Oscar Rodriguez MD [address]03 [facility] 2, [address] [place] [address] 09/26/2025 12:20 PM EST Appointment [facility] [address] [place] [address] 09/26/2025 1:00 PM EST Office Visit [facility] [address] [facility] [address] [place] [address] June Preston MD [address] [facility] Office [facility] [address] [place] [address] documented as of this encounter Procedures Procedure [...] documented as of this encounter Care Teams Field Court Researcher Relationship Specialty Start Date End Date Conchita Aden MD [address] [place] [address] [place] [address] PCP - General Family Medicine 11/11/24 June Preston MD [address] [facility] Bldg, [address] [place] [address] Bulk Driver Electrophysiology 09/13/24 documented as of this encounter
--- OUTSIDE RECORDS SUMMARY | 2025-04-08 13:09 | XMS_ITS | Encounter Summary ---
Author Organization [facility] Address [address] [place] [address] Phone Care Team Providers Care Stone Rubber Name Role Phone Tremaine West DO Primary Care Provider Ania Brothers SINGLE ENDING MACHINE OPERATOR-RESEARCH METHODOLOGIST Unavailable Unavailable June Preston MD Unavailable Sol Keita CUTTING MACHINE FIXER Unavailable [phone] June Preston MD Unavailable Oscar Rodriguez MD Unavailable [phone] Generic Provider, No Assigned Pcp Primary Car e Provider Unavailable Diane Min RN Unavailable Unavailable June Preston MD Unavailable Conchita Aden MD Primary Care Provider [phone] Diane Min RN Unavailable Unavailable Encounter Details Date Type Department Care Team (Late st Contact Info) Description 07/27/2023 Scanned Document [facility] [address] [place] [address] Conversion, Onbase Social History Tobacco Use Types [...] Description 04/14/2025 9:30 AM EDT Hospital Encounter [facility] [place] [address] [place] [address] [place] [address] Kervin Fair MD [address] [place] [address] Ventricular tachycardia (Multi) 04/14/2025 11:00 AM EDT - 04/14/2025 3:00 PM EDT Surgery [facility] [place] [address] [place] [address] [place] [address] Kervin Fair MD [address] [place] [address] [place] [[address] (CPT )] 07/14/2025 1:00 PM EDT Office Visit [facility] 703 [facility] [address] [place] [address] Oscar Rodriguez MD 703 [facility] 2, [address] [place] [address] 09/26/2025 12:20 PM EST Appointment [facility] [address] [place] [address] 09/26/2025 1:00 PM EST Office Visit [facility] [address] [facility] [address] [place] [address] June Preston MD [address] [facility] Office [facility], [address] [place] [address] documented as of this encounter Procedures Procedure [...] documented as of this encounter Care Teams Stone Rubber Relationship Specialty Start Date End Date Tremaine West DO [address] Amor West DO [address] [address] PCP - General 01/22/22 11/05/23 Generic Provider, No Assigned Pcp, [place] [address] PCP - General Corporate Recycling Manager 08/08/24 11/10/24 Conchita Aden MD [address] [place] [address] [place] [address] PCP - General Family Medicine 11/11/24 Ania Brothers, SINGLE ENDING MACHINE OPERATOR-RESEARCH METHODOLOGIST [address] Amor West DO [address] [address] Nurse Practitioner Cardiology 09/30/23 02/16/24 June Preston MD 1610 [facility] Tremaine West, [address] [place] [address] Dining Car Waiter/Waitress Cardiology 09/30/23 02/16/24 Sol Keita, CUTTING MACHINE FIXER Printed Circuit Boards BevelerAlmond Sorter 02/19/24 05/17/24 June Preston MD [address] [facility], [address] [place] [address] Consulting Physician Cardiology 02/19/24 02/29/24 Oscar Rodriguez MD 703 [facility] 2, [address] [place] [address] Consulting Physician Cardiology 02/19/24 02/29/24 Diane Min RN Care Almond Sorter 09/05/24 12/06/24 June Preston MD [address] [facility], [address] [place] [address] Dining Car Waiter/Waitress Electrophysiology 09/13/24 Diane Min, emergency medicine physicianAlmond Sorter 01/16/25 01/31/25 documented as of this encounter
--- OUTSIDE RECORDS SUMMARY | 2025-04-08 13:09 | XMS_ITS | Encounter Summary ---
Author Organization [facility] Address [address] [place] [address] Phone Care Team Providers Care Assistant Hvac Mechanic Name Role Phone Tremaine West DO Primary Care Provider Ania Brothers MEDICAL OPERATIONS SUPERVISOR-FABRICATION ENGINEER Unavailable Unavailable June Preston MD Unavailable Sol Keita SEWER LINE REPAIRER Unavailable [phone] June Preston MD Unavailable Oscar Rodriguez MD Unavailable [phone] Generic Provider, No Assigned Pcp Primary Car e Provider Unavailable Diane Min RN Unavailable Unavailable June Preston MD Unavailable Conchita Aden MD Primary Care Provider [phone] Diane Min RN Unavailable Unavailable Encounter Details Date Type Department Care Team (Late st Contact Info) Description 07/23/2023 Scanned Document [facility] [address] [place] [address] Conversion, Onbase Social History Tobacco Use Types [...] Description 04/14/2025 9:30 AM EDT Hospital Encounter [facility] [place] [address] [place] [address] [place] [address] Kervin Fair MD [address] [place] [address] Ventricular tachycardia (Multi) 04/14/2025 11:00 AM EDT - 04/14/2025 3:00 PM EDT Surgery [facility] [place] [address] [place] [address] [place] [address] Kervin Fair MD [address] [place], [place] [id number] [place] [[address] (CPT )] 07/14/2025 1:00 PM EDT Office Visit [facility] 703 [facility] [address] [place] [address] Oscar Rodriguez MD 703 [facility] 2, [address] [place] [address] 09/26/2025 12:20 PM EST Appointment [facility] [address] [place] [address] 09/26/2025 1:00 PM EST Office Visit [facility] [address] [facility] [address] [place] [address] June Preston MD [address] [facility] Office [facility], [address] [place] [address] documented as of this encounter Procedures Procedure [...] documented as of this encounter Care Teams Assistant Hvac Mechanic Relationship Specialty Start Date End Date Tremaine West DO [address] [place] Amor West DO [address] [address] PCP - General 01/22/22 11/05/23 Generic Provider, No Assigned Pcp, [place] [address] PCP - General Clinical Documentation Spec 08/08/24 11/10/24 Conchita Aden MD [address] [place] [address] PCP - General Family Medicine 11/11/24 Ania Brothers, MEDICAL OPERATIONS SUPERVISOR-FABRICATION ENGINEER [address] [place] Amor West [address] [address] Nurse Practitioner Cardiology 09/30/23 02/16/24 June Preston MD [address] [place] Amor [address] [address] Car Top Bolter Cardiology 09/30/23 02/16/24 Sol Keita, SEWER LINE REPAIRER Copy ReaderCrown Ironer Operator 02/19/24 05/17/24 June Preston MD [address] [facility], [address] [place] [address] Consulting Physician Cardiology 02/19/24 02/29/24 Oscar Rodriguez MD [address] [place] [address] [address], [address] [place] [address] Consulting Physician Cardiology 02/19/24 02/29/24 Diane Min, development vice presidentCrown Ironer Operator 09/05/24 12/06/24 June Preston MD [address] [facility], [address] [place] [address] Car Top Bolter Electrophysiology 09/13/24 Diane iMn, development vice presidentCrown Ironer Operator 01/16/25 01/31/25 documented as of this encounter
--- OUTSIDE RECORDS SUMMARY | 2025-04-08 13:09 | XMS_ITS | Clinical Summary ---
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) from Last 3 Months or Most Recently Relevant to Health Maintenance Results * (ABNORMAL) BASIC METABOLIC PNL (05/31/2015 12:41 AM EDT) Glucose 101(H) 65 - 100 mg/dL 05/31/2015 1:52 AM EDT [facility] BUN 3(L) 8 - 25 mg/dL 05/31/2015 1:52 AM T [facility] Creatinine 0.75 0.70 - 1.40 mg/dL 05/31/2015 1:52 AM T [facility] Sodium 135 132 - 148 mmol/L 05/31/2015 1:52 AM T [facility] Potassium 4.3 3.5 - 5.0 mmol/L 05/31/2015 1:52 AM T [facility] Chloride 100 98 - 110 mmol/L 05/31/2015 1:52 AM T [facility] CO2 24 23 - 32 mmol/L 05/31/2015 1:52 AM [facility] Anion Gap 11 0 - 15 mmol/L 05/31/2015 1:52 AM T [facility] Calcium 8.6 8.5 - 10.5 mg/dL 05/31/2015 1:52 AM T [facility] eGFR- >60 05/31/2015 1:52 AM T [facility] eGFR-All Other Races >60 . 05/31/2015 1:52 AM [facility] Comment: eGFR (Estimated GFR) Units [...] Marcial Escobar (Hist) Lin LABORATORY Final Result [facility] [address] [facility] [place] [address] * (ABNORMAL) LIPID PANEL BASIC (05/16/2015 10:42 AM EDT) Triglyceride 118 30 - 149 mg/dL 05/16/2015 6:55 PM EDT [facility] Cholesterol, Total 142 100 - 199 mg/dL 05/16/2015 6:55 PM EDT [facility] HDL Cholesterol 65 >55 mg/dL 5 6:55 PM EDT [facility] VLDL Cholesterol 24 6 - 40 mg/dL 05/16/2015 6:55 PM EDT [facility] LDL Cholesterol, Calculated 53(L) 60 - 129 mg/dL 05/16/2015 6:55 PM EDT [facility] Fasting Time Unknown hrs 05/16/2015 2:56 PM EDT [facility] TC:HDL Ratio 2.18 1.00 - 5.00 05/16/2015 6:55 PM EDT [facility] LDL:HDL Ratio 0.82 0.50 - 3.55 05/16/2015 6:55 PM EDT [facility] Non HDL Cholesterol 77(L) 90 - 159 mg/dL 05/16/2015 6:55 PM EDT [facility] Blood specimen (specimen) BLOOD SPECIMEN / Unknown 05/16/2015 10:42 AM EDT 05/16/2015 10:46 AM EDT us Warner Conde MD LABORATORY Final Result [facility] [address] [place] [address] from Last 3 Months or Most Recently Relevant to Health Maintenance Insurance MEDICARE [place]ICAID [place]
--- OUTSIDE RECORDS SUMMARY | 2025-04-08 13:10 | XMS_ITS | Encounter Summary ---
Author Organization [facility] Address [address] [place] [address] Care Team Providers Care Occupational Therapy Professor Name Role Phone Conchita Aden MD Primary Care Provider [phone] Encounter Details Date Type Department Care Team (Late st Contact Info) Description 03/26/2025 External Result Encounter [facility] External Department Unsolicited Lorrie Winn MD [address] [facility] [address] [place] [address] Social History Tobacco Use Types Packs/Day Years Used Date Smoking Tobacco: Every Day Cigarettes Comments No Sex and Gender Information Value Date Recorded Sex Assigned at Not on file Legal Sex Female 6:52 PM EDT Gender Identity Not on file Sexual Orientation Not on file documented as of this encounter Plan of Treatment Not on file documented as of this encounter Procedures Procedure Name Priority Date/Time Associated Diagnosis Comments CA 125 Routine 03/26/2025 5:52 PM EDT documented in this encounter Results * CA 125 (03/26/2025 5:52 PM EDT) CANCER ANTIGEN 125 10.3 0.0 - 38.1 03/29/2025 3:36 AM EDT [facility] Comment: [employer] Electrochemiluminescence Immunoassay (ECLIA) Values obtained with different assay methods or kits cannot be used interchangeably. Results cannot be interpreted as absolute evidence of the presence or absence of malignant disease. Performed at: [address] [id number] Manager Environmental: Jose Damon PhD, Phone: [phone] Other Topography unknown / Unknown 03/26/2025 5:52 PM EDT 03/26/2025 6:10 PM EDT us Lorrie Winn MD LAB BLOOD ORDERABLES Final Res ult [facility] [address] [place] [address], documented in this encounter Visit Diagnoses Not on filedocumented in this encounter Care Teams Occupational Therapy Professor Relationship Specialty Start Date End Date Conchita Aden MD PCP - General Family Medicine 11/07/24 documented as of this encounter
--- OUTSIDE RECORDS SUMMARY | 2025-04-08 13:10 | XMS_ITS | Encounter Summary ---
Author Organization [facility] Address [address] [place] [address] Phone Care Team Providers Care Retail Loss Prevention Specialist Name Role Phone Tremaine West DO Primary Care Provider Ania Brothers LEHR TENDER-POTATO CHIP MAKER Unavailable Unavailable June Preston MD Unavailable Sol Keita EARLY HEAD START TEACHER Unavailable [phone] June Preston MD Unavailable Osacr Rodriguez MD Unavailable [phone] Generic Provider, No Assigned Pcp Primary Car e Provider Unavailable Diane Min RN Unavailable Unavailable June Preston MD Unavailable Conchita Aden MD Primary Care Provider [phone] Diane Min RN Unavailable Unavailable Encounter Details Date Type Department Care Team (Late st Contact Info) Description 05/27/2022 Orders Only [facility] LEGACY [address] [place] [address] Conversion, Onbase Social History Tobacco Use Types [...] Description 04/14/2025 9:30 AM EDT Hospital Encounter [facility] [place] [address] [facility] [address] [place] [phone] Kervin Fair MD [address] [place] [address] Ventricular tachycardia (Multi) 04/14/2025 11:00 AM EDT - 04/14/2025 3:[address] [facility] [place] [address] [facility] [address] [place] [address] Kervin Fair MD [address] [place], [place] [id number] [place] [19768 (CPT )] 07/14/2025 1:00 PM EDT Office Visit [facility] 703 [facility] 250 [place] [address] Oscar Rodriguez MD 703 [facility] 2, Steve [address] [place] [address] 09/26/2025 12:20 PM EST Appointment [facility] [address] [place] [address] 09/26/2025 1:00 PM EST Office Visit [facility] [address] [facility] [address] [place] [address] June Preston MD 125 [address] [facility] Office [facility], [facility] [address] [place] [address] Scheduled Orders Name Type Priority Associated Diagnoses [...] as of this encounter Care Teams Retail Loss Prevention Specialist Relationship Specialty Start Date End Date Tremaine West DO 1610 [facility] Tremaine West [facility] 103 [place] [address] PCP - General 01/22/22 11/05/23 Generic Provider, No Assigned Pcp, [place] [address] PCP - General Senior Chemist 08/08/24 11/10/24 Conchita Aden MD [address] [place] [address] PCP - General Family Medicine 11/11/24 Ania Brothers APRN-POTATO CHIP MAKER [address] [place] [address] [facility] [address] [place] [address] Nurse Practitioner Cardiology 09/30/23 02/16/24 June Preston MD 1610 [facility] Tremaine West [facility] 103 [place] [address] Can Tender Cardiology 09/30/23 02/16/24 Sol Keita, EARLY HEAD START TEACHER Senior Reactor OperatorGrinder Needle Tip 02/19/24 05/17/24 June Preston MD [address] [facility] [address] [place] [address] Consulting Physician Cardiology 02/19/24 02/29/24 Oscar Rodriguez MD 703 [facility] 2, [address] [place] [address] Consulting Physician Cardiology 02/19/24 02/29/24 Diane Min, audit associateGrinder Needle Tip 09/05/24 12/06/24 June Preston MD 125 E [facility], Steve [address] [place] [address] Can Tender Electrophysiology 09/13/24 Diane Min, audit associateGrinder Needle Tip 01/16/25 01/31/25 documented as of this encounter
--- OUTSIDE RECORDS SUMMARY | 2025-04-08 13:10 | XMS_ITS | Encounter Summary ---
Author Organization [facility] Address [address] [place] [address] Phone Care Team Providers Care Director [employer] Name Role Phone Tremaine West DO Primary Care Provider Ania Brothers SUPERVISOR STERILE PROCESSING-WATER QUALITY ANALYST Unavailable Unavailable June Preston MD Unavailable Sol Keita CHEMICAL SPRAYER Unavailable [phone] June Preston MD Unavailable Oscar Rodriguez MD Unavailable [phone] Generic Provider, No Assigned Pcp Primary Car e Provider Unavailable Diane Min RN Unavailable Unavailable June Preston MD Unavailable Conchita Aden MD Primary Care Provider [phone] Diane Min RN Unavailable Unavailable Encounter Details Date Type Department Care Team (Late st Contact Info) Description 09/08/2019 Orders Only [facility] LEGACY [address] [place] [address] Conversion, Onbase Social History Tobacco Use Types [...] Description 04/14/2025 9:30 AM EDT Hospital Encounter [facility] [place] [address] [place] [address] Kervin Fair MD [address] [place], [place] [address] Ventricular tachycardia (Multi) 04/14/2025 11:00 AM EDT - 04/14/2025 3:00 PM EDT Surgery [facility] [place] [facility] [address] [place] [address] Kervin Fair MD [address] [place], [place] [phone] [place] [[id number] (CPT )] 07/14/2025 1:00 PM EDT Office Visit [facility] 703 [facility] 250 [place] [address] Oscar Rodriguez MD 3 [facility] 2, Steve [address] [place] [address] 09/26/2025 12:20 PM EST Appointment [facility] [address] [place] [address] 09/26/2025 1:00 PM EST Office Visit [facility] 125 [address] [facility] [address] [place] [address] June Preston MD 125 [address] [facility] Medical Office [facility], [facility] 305 [place] [address] Scheduled Orders Name Type Priority Associated Diagnoses Orde r Schedule OUTSIDE LAB SCAN Lab Ordered: 09/08/2019 documented as of this encounter Visit Diagnoses Not on filedocumented in this encounter Additional Health Concerns Infection Onset Date Last Indicated Resolved Time COVID-19 Rule-Out 01/08/2025 01/08/2025 01/08/2025 11:23 PM EDT Influenza Rule-out 01/08/2025 01/08/2025 11:23 PM EDT RSV Rule-out 01/08/2025 01/08/202501/0801/08/2025 11:2 3 PM EDT Influenza 01/08/2025 01/08/2025 01/15/2025 5:23 AM EDT Gastrointestinal Rule-Out 01/11/2025 01/11/2025 7:00 AM EDT documented as of this encounter Care Teams Director [employer] Relationship Specialty Start Date End Date Tremaine West DO [address] [place] [address] [place], DO Steve [address] [place] [address] PCP - General 01/22/22 11/05/23 Generic Provider, No Assigned Pcp, [place] [address] PCP - General Woodenware Assembler 08/08/24 11/10/24 Conchita Aden MD [address] [place] [address] PCP - General Family Medicine 11/11/24 Ania Brothers, SUPERVISOR STERILE PROCESSING-WATER QUALITY ANALYST 1610 [facility] Tremaine West, DO Steve [address] [place] [address] Nurse Practitioner Cardiology 09/30/23 02/16/24 June Preston MD 1610 [facility] Tremaine West DO [address] [place] [address] Equipment Lead Cardiology 09/30/23 02/16/24 Sol Keita, CHEMICAL SPRAYER Gaming DirectorWet Silk Hanger 02/19/24 05/17/24 June Preston MD 125 E [facility], Steve [address] [place] [address] Consulting Physician Cardiology 02/19/24 02/29/24 Oscar Rodriguez MD [address] [place] [address] 2, [address] [place] [address] Consulting Physician Cardiology 02/19/24 02/29/24 Diane Min, cardiology managerWet Silk Hanger 09/05/24 12/06/24 June Preston MD [address] [facility] [address], [address] [place] [address] Equipment Lead Electrophysiology 09/13/24 Diane Min, cardiology managerWet Silk Hanger 01/16/25 01/31/25 documented as of this encounter
--- OUTSIDE RECORDS SUMMARY | 2025-04-08 13:10 | XMS_ITS | Encounter Summary ---
Author Organization [facility] Address [address] [place] [address] Phone Care Team Providers Care Travel Services Professional Name Role Phone Tremaine West DO Primary Care Provider Ania Brothers STAINED GLASS JOINER-SEASONAL WAREHOUSE ASSOCIATE Unavailable Unavailable June Preston MD Unavailable Sol Keita FOOD SERVICE AGENT Unavailable [phone] June Preston MD Unavailable Oscar Rodriguez MD Unavailable [phone] Generic Provider, No Assigned Pcp Primary Car e Provider Unavailable Diane Min RN Unavailable Unavailable June Preston MD Unavailable Conchita Aden MD Primary Care Provider [phone] Diane Min RN Unavailable Unavailable Encounter Details Date Type Department Care Team (Late st Contact Info) Description 06/30/2020 Orders Only [facility] LEGACY [address] [place] [address] Conversion, Onbase Social History Tobacco Use Types [...] Description 04/14/2025 9:30 AM EDT Hospital Encounter [facility] [place] [address] [place] [address] [place] [address] Kervin Fair MD [address] [place], [place] [address] Ventricular tachycardia (Multi) 04/14/2025 11:00 AM EDT - 04/14/2025 3:00 PM EDT Surgery [facility] [place] [address] [facility] 35[address] [place] [address] Kervin Fair MD [address] [place], [place] [phone] [place] [[id number] (CPT )] 07/14/2025 1:00 PM EDT Office Visit [facility] 703 [facility] 250 [place] [address] Oscar Rodriguez MD 3 [facility] 2, Steve [address] [place] [address] 09/26/2025 12:20 PM EST Appointment [facility] [address] [place] [address] 09/26/2025 1:00 PM EST Office Visit [facility] 125 E [facility] 320 [place] [address] June Preston MD 125 E [facility] Medical Office [facility], [facility] 305 [place] [address] Scheduled Orders Name Type Priority Associated Diagnoses [...] documented as of this encounter Care Teams Travel Services Professional Relationship Specialty Start Date End Date Tremaine West DO [address] [place] [address] West, DO Steve [address] [place] [address] PCP - General 01/22/22 11/05/23 Generic Provider, No Assigned Pcp, [place] [address] PCP - General Occupational Therapy Technician 08/08/24 11/10/24 Conchita Aden MD [address] [place] [address] PCP - General Family Medicine 11/11/24 Ania Brothers, STAINED GLASS JOINER-SEASONAL WAREHOUSE ASSOCIATE 1610 [facility] Tremaine West, DO Steve [address] [place] [address] Nurse Practitioner Cardiology 09/30/23 02/16/24 June Preston MD 1610 [facility] Tremaine West DO [address] [place] [address] Solar Maintenance Technician Cardiology 09/30/23 02/16/24 Sol Keita, FOOD SERVICE AGENT Guide Dog Mobility InstructorFloat Remover 02/19/24 05/17/24 June Preston MD 125 [address] [facility], [address] [place] [address] Consulting Physician Cardiology 02/19/24 02/29/24 Oscar Rodriguez MD [address] [place] [address] 2, [address] [place] [address] Consulting Physician Cardiology 02/19/24 02/29/24 Diane Min, property management accountantFloat Remover 09/05/24 12/06/24 June Preston MD [address] [facility] [address], [address] [place] [address] Solar Maintenance Technician Electrophysiology 09/13/24 Diane Min, property management accountantFloat Remover 01/16/25 01/31/25 documented as of this encounter
--- OUTSIDE RECORDS SUMMARY | 2025-04-08 13:10 | XMS_ITS | Encounter Summary ---
Author Organization [facility] Address [address] [place] [address] Phone Care Team Providers Care Single Resource Boss Name Role Phone June Preston MD Unavailable Conchita Aden MD Primary Care Provider Encounter Details Date Type Department Care Team (Latest Contact Info) Description 04/03/2025 Travel Social History Tobacco Use Types Packs/Day Years [...] doctor or pharmacy? Never 01/08/2025 [facility] Utilities Answer Date Recorded In the past 12 months has [facility] Operation Supply Drop, gas, oil, or water [employer] threatened to shut off services in your [...] week 01/08/2025 How often do you attend latter day or yazidi serv ices? Patient declined 01/08/2025 Do you belong to any clubs o r organizations such as latter day groups, unions, fraternal or athletic groups, or [...] Recorded Patient Health Questionnaire-2 Score 0 01/08/2025 [facility] - [...] place to sleep or slept in a residential (including now)? No 02/16/2024 Housing Stability Vital Sign Answer Mookie e Recorded In the last 12 months, was t here a time when you were not able to pay the mortgage or rent on time? No 01/08/2025 In the past 12 months, how m any times have you moved where you were living? 1 01/08/2025 At any time in the past 12 m [facility], were you homeless or living in a residential (including now)? No 01/08/2025 Comments No Sex [...] PM EDT documented as of this encounter Plan of Treatment Upcoming Encounters Date Type Department Care Team (Latest Contact Info) Description 04/14/2025 9:30 AM EDT Hospital Encounter [facility] [place] [address] [place] [address] Kervin Fair MD [address] [place] [address] Ventricular tachycardia (Multi) 04/14/2025 11:00 AM EDT - 04/14/2025 3:00 PM EDT Surgery [facility] [place] [address] [place] [address] Kervin Fair MD [address] [place] [address] [place] [[id number] (CPT )] 07/14/2025 1:00 PM EDT Office Visit [facility] 703 [facility] Steve [address] [place] [address] Oscar Rodriguez MD 703 [facility] 2, [address] [place] [address] 09/26/2025 12:20 PM EST Appointment [facility] [address] [place] [facility] [place] [address] 09/26/2025 1:00 PM EST Office Visit [facility] 125 [address] [facility] 320 [place] [address] June Preston MD 125 E [facility] Medical Office Bldg, Steve [address] [place] [address] documented as of this encounter Visit Diagnoses Not on filedocumented in this encounter Additional Health Concerns Assessment Noted Time PHQ-9 Depression Total Score: 9 01/23/20 22 11:33 AM EDT A fall risk assessment has been complete d for the patient 03/01/2024 12:30 PM EDT documented as of this encounter Care Teams Single Resource Boss Relationship Specialty Start Date End Date Conchita Aden MD [address] [place] [address] [address] [place] [address] PCP - General Family Medicine 11/11/24 June Preston MD 125 [address] [facility] Bl, [address] [place] [phone] Manager Division Electrophysiology 09/13/24 documented as of this encounter
--- OUTSIDE RECORDS SUMMARY | 2025-04-08 13:10 | XMS_ITS | Encounter Summary ---
Author Organization [facility] Address [address] [place] [address] Phone Care Team Providers Care Patrol Captain Name Role Phone Tremaine West DO Primary Care Provider Ania Brothers CLAIMS EXAMINER-NUT SHELLER Unavailable Unavailable June Preston MD Unavailable Sol Keita INSTITUTE DIRECTOR Unavailable [phone] June Preston MD Unavailable Oscar Rodriguez MD Unavailable [phone] Generic Provider, No Assigned Pcp Primary Car e Provider Unavailable iDane Min RN Unavailable Unavailable June Preston MD Unavailable Conchita Aden MD Primary Care Provider [phone] Diane Min RN Unavailable Unavailable Encounter Details Date Type Department Care Team (Late st Contact Info) Description 07/04/2020 Orders Only [facility] LEGACY [address] [place] [address] Conversion, Onbase Social History Tobacco Use Types [...] Description 04/14/2025 9:30 AM EDT Hospital Encounter [facility] [place] [address] [place] [address] [place] [address] Kervin Fair MD [address] [place] [address] [place], [place] [address] Ventricular tachycardia (Multi) 04/14/2025 11:00 AM EDT - 04/14/2025 3:00 PM EDT Surgery [facility] [place] [address] [facility] [address] [place] [address] Kervin Fair MD [address] [place] [address] [place], [place] [address] [place] [[id number] (CPT )] 07/14/2025 1:00 PM EDT Office Visit [facility] 703 [facility] 250 [place] [address] Oscar Rodriguez MD 3 [facility] 2, [address] [place] [address] 09/26/2025 12:20 PM EST Appointment [facility] [address] [place] [address] 09/26/2025 1:00 PM EST Office Visit [facility] 125 E [facility] 320 [place] [address] June Preston MD 125 E [facility] Medical Office [facility] 305 [place] [address] Scheduled Orders Name Type Priority Associated Diagnoses [...] documented as of this encounter Care Teams Patrol Captain Relationship Specialty Start Date End Date Tremaine West DO [address] [address], DO [address] [place] [address] PCP - General 01/22/22 11/05/23 Generic Provider, No Assigned Pcp, [place] [address] PCP - General Nurse Sane 08/08/24 11/10/24 Conchita Aden MD [address] [place] [address] PCP - General Family Medicine 11/11/24 Ania Brothers, CLAIMS EXAMINER-NUT SHELLER 1610 [facility] Tremaine West, DO [address] [place] [address] Nurse Practitioner Cardiology 09/30/23 02/16/24 June Preston MD 1610 [facility] Tremaine West DO [address] [place] [address] Account Coordinator Cardiology 09/30/23 02/16/24 Sol Keita, INSTITUTE DIRECTOR Diploma Medical AssistantTransition Program Manager 02/19/24 05/17/24 June Preston MD 125 E [facility], [address] [place] [address] Consulting Physician Cardiology 02/19/24 02/29/24 Oscar Rodriguez MD [address] [place] [address] 2, [address] [place] [address] Consulting Physician Cardiology 02/19/24 02/29/24 Diane Min, compressor stations superintendentTransition Program Manager 09/05/24 12/06/24 June Preston MD [address] [facility] [address], [address] [place] [address] Account Coordinator Electrophysiology 09/13/24 Diane Min, compressor stations superintendentTransition Program Manager 01/16/25 01/31/25 documented as of this encounter
--- OUTSIDE RECORDS SUMMARY | 2025-04-08 13:10 | XMS_ITS | Clinical Summary ---
Author Organization [facility] Address [id number] [address] [place] [address] Care Team Providers Care Software Quality Analyst Name Role Phone Unavailable Primary Care Provider [...] 2 diabetes mellitus 1 11/30/2022 Atherosclerosis of [place] co ronary artery of [place] heart without angina pectoris 07/29/2023 Chronic obstructive pulmonary disease 07/29/2023 Chronic systolic CHF (congestive heart failure) 07/29/2023 Current every day smoker 07/29/2023 Essential hypertension 07/29/2023 Intermittent claudication 07/29/2023 Pulmonary embolism 07/29/2023 Type 2 diabetes mellitus 07/29/2023 Gastroesophageal reflux disease without esophagi tis 11/25/2021 Vascular insufficiency of intestine 04/09/2015 Encounters Date Type Department Care Team Description 03/01/2025 Telephone [facility] Gynecology Oncology, A Department of [facility] [address] [place] [address] Charlotte Garcia RN 02/22/2025 Telephone [facility] Gynecology Oncology, A Department of [facility] [address] [place] [address] Charlotte Garcia, PAULA from Last 3 Months [...] Negative Negative^N egative 12/01/2024 2:25 PM EST [facility] Hpv 18 Negative Negative^N egative 12/01/2024 2:25 PM EST [facility] Other high risk hpv Negative Negative^N egative 12/01/2024 2:25 PM EST [facility] Comment: HPV types 31,33,35,39,45,52,56,58,59,66 and 68 DNA were undetectable. THINP 11/29/2024 3:43 AM EST 12/01/2024 3:44 AM EST us Nanci Mcallister MD LAB BLOOD ORDERABLES Final Resul t [place] [facility] [address] [facility], [address] [place] [address] from Last 3 Months or Most Recently Relevant to Health Maintenance Insurance MEDICAID [place] MEDICARE
--- OUTSIDE RECORDS SUMMARY | 2025-04-08 13:10 | XMS_ITS | Encounter Summary ---
Author Organization [facility] Address [address] [place] [address] Care Team Providers Care Medical Device Assembler Name Role Phone Conchita Aden MD Primary Care Provider [phone] Encounter Details Date Type Department Care Team (Late Contact Info) Description 10/22/2024 Abstract [facility] [address] [place] [id number] David Ewing, DO [address] [facility] [address] [place] [place], [facility] Social History Tobacco Use Types Packs/Day [...] on filedocumented in this encounter Care Teams Medical Device Assembler Relationship Specialty Start Date End Date Conchita Aden MD PCP - General Family Medicine 11/07/24 documented as of this encounter
--- OUTSIDE RECORDS SUMMARY | 2025-04-08 13:10 | XMS_ITS | Encounter Summary ---
Author Organization [facility] Address [address] [place] [address] Phone Care Team Providers Care Coverage Analyst Name Role Phone Tremaine West DO Primary Care Provider Ania Brothers RESOURCE DEVELOPMENT DIRECTOR-SLASHER RUNNER Unavailable Unavailable June Preston MD Unavailable Sol Keita SOFTWARE RELEASE MANAGER Unavailable [phone] June Preston MD Unavailable Oscar Rodriguez MD Unavailable [phone] Generic Provider, No Assigned Pcp Primary Car e Provider Unavailable Diane Min RN Unavailable Unavailable June Preston MD Unavailable Conchita Aden MD Primary Care Provider [phone] Diane Min RN Unavailable Unavailable Encounter Details Date Type Department Care Team (Late st Contact Info) Description 01/31/2021 Orders Only [facility] [address] [place] [address] Conversion, Onbase Social History Tobacco Use Types [...] Hospital Encounter [facility] [place] [address] [facility] 3529 [place] [address] Kervin Fair MD [address] [place], [place] [id number] Ventricular tachycardia (Multi) 04/14/2025 11:00 AM EDT - 04/14/2025 3:00 PM EDT Surgery [facility] [place] [address] [facility] 3529 [place] [address] Kervin Fair MD [address] [place], [place] [address] [place] [[address]95 (CPT )] 07/14/2025 1:00 PM EDT Office Visit [facility] 703 [facility] 250 [place] [address] Oscar Rodriguez MD 703 [facility] 2, Steve [address] [place] [address] 09/26/2025 12:[address] [facility] [address] [place] [address] 09/26/2025 1:00 PM EST Office Visit [facility] [address] [facility] 320 [place] [address] June Preston MD 125 E [facility] Office [facility], [facility] [address] [place] [address] Scheduled Orders Name Type Priority Associated Diagnoses [...] documented as of this encounter Care Teams Coverage Analyst Relationship Specialty Start Date End Date Tremaine West DO [address] [place] Amor Childerscristino, DO Steve [address] [place] [address] PCP - General 01/22/22 11/05/23 Generic Provider, No Assigned Pcp, [place] [address] PCP - General Hoisting Engine Operator 08/08/24 11/10/24 Conchita Aden MD [address] [place] [address] PCP - General Family Medicine 11/11/24 Ania Brothers, RESOURCE DEVELOPMENT DIRECTOR-SLASHER RUNNER 1610 [facility] Tremaine West, DO Steve [address] [place] [address] Nurse Practitioner Cardiology 09/30/23 02/16/24 June Preston MD 1610 [facility] Tremaine Childersyukoezekiel DO Steve [address] [place] [address] Soils Technician Cardiology 09/30/23 02/16/24 Sol Keita, SOFTWARE RELEASE MANAGER Paper Mill SupervisorGroup Activities Aide 02/19/24 05/17/24 June Preston MD 125 E [facility], Steve [address] [place] [address] Consulting Physician Cardiology 02/19/24 02/29/24 Oscar Rodriguez MD [address] [place] [address] 2, [address] [place] [address] Consulting Physician Cardiology 02/19/24 02/29/24 Diane Min, textile clothing and footwear mechanicGroup Activities Aide 09/05/24 12/06/24 June Preston MD 125 E [facility], [facility] [address] [place] [address] Soils Technician Electrophysiology 09/13/24 Diane Min, textile clothing and footwear mechanicGroup Activities Aide 01/16/25 01/31/25 documented as of this encounter
--- OUTSIDE RECORDS SUMMARY | 2025-04-08 13:10 | XMS_ITS | Encounter Summary ---
Author Organization [facility] Address [address] [place] [address] Phone Care Team Providers Care Steam Station Supervisor Name Role Phone Tremaine West DO Primary Care Provider Ania Brothers WOOD ROOM SUPERVISOR-STENCIL SPRAYER Unavailable Unavailable June Preston MD Unavailable Sol Keita MOTOCROSS RACER Unavailable [phone] June Preston MD Unavailable Oscar Rodriguez MD Unavailable [phone] Generic Provider, No Assigned Pcp Primary Car e Provider Unavailable Diane Min RN Unavailable Unavailable June Preston MD Unavailable Conchita Aden MD Primary Care Provider [phone] Diane Min RN Unavailable Unavailable Encounter Details Date Type Department Care Team (Late st Contact Info) Description 08/15/2019 Orders Only [facility] [address] [place] [address] Conversion, Onbase Social History Tobacco Use Types [...] Description 04/14/2025 9:30 AM EDT Hospital Encounter [facility] [place] [address] [place] [address] Kervin Fair MD [address] [place], [place] [phone] Ventricular tachycardia (Multi) 04/14/2025 11:00 AM EDT - 04/14/2025 3:00 PM EDT Surgery [facility] [place] [address] [facility] 3529 [place] [address] Kervin Fair MD [address] [place], [place] [id number] [place] [[address] (CPT )] 07/14/2025 1:00 PM EDT [facility] 703 [facility] 250 [place] [address] Oscar Rodriguez MD 3 [facility] 2, Steve [address] [place] [address] 09/26/2025 12:20 PM EST Appointment [facility] [address] [place] [address] 09/26/2025 1:00 PM EST Office Visit [facility] 125 E [facility] 320 [place] [address] June Preston MD 125 [address] [facility] Medical Office [facility], [facility] 305 [place] [address] Scheduled Orders Name Type Priority Associated Diagnoses [...] documented as of this encounter Care Teams Steam Station Supervisor Relationship Specialty Start Date End Date Tremaine West DO [address] [place] Amor West, DO Steve [address] [place] [address] PCP - General 01/22/22 11/05/23 Generic Provider, No Assigned Pcp, [place] [address] PCP - General Central Office Maintainer 08/08/24 11/10/24 Conchita Aden MD [address] [place] [address] [place] [address] PCP - General Family Medicine 11/11/24 Ania Brothers, WOOD ROOM SUPERVISOR-STENCIL SPRAYER [address] [place], [facility] 103 [place] [address] Nurse Practitioner Cardiology 09/30/23 02/16/24 June Preston MD 1610 [facility] Tremaine West [facility] 103 [place] [address] Optical Fabricator Cardiology 09/30/23 02/16/24 Sol Keita, MOTOCROSS RACER Hand BlockerConstruction Code Administrator 02/19/24 05/17/24 June Preston MD 125 E [facility], Steve [address] [place] [address] Consulting Physician Cardiology 02/19/24 02/29/24 Oscar Rodriguez MD [address] [place] [address] 2, [address] [place] [address] Consulting Physician Cardiology 02/19/24 02/29/24 Diane Min, basketball coachConstruction Code Administrator 09/05/24 12/06/24 June Preston MD 125 E [facility] Medical [facility], Steve [address] [place] [address] Optical Fabricator Electrophysiology 09/13/24 Diane Min, basketball coachConstruction Code Administrator 01/16/25 01/31/25 documented as of this encounter
--- OUTSIDE RECORDS SUMMARY | 2025-04-08 13:10 | XMS_ITS | Encounter Summary ---
Author Organization [facility] Address [address] [place] [address] Phone Care Team Providers Care Dental Specialist Name Role Phone Tremaine West DO Primary Care Provider Ania Brothers AGRICULTURAL SERVICE TECHNICIAN-COMPUTER GAME DESIGNER Unavailable Unavailable June Preston MD Unavailable Sol Keita PERFUME COMPOUNDER Unavailable [phone] June Preston MD Unavailable Oscar Rodriguez MD Unavailable [phone] Generic Provider, No Assigned Pcp Primary Car e Provider Unavailable Diane Min RN Unavailable Unavailable June Preston MD Unavailable Conchita Aden MD Primary Care Provider [phone] Diane Min RN Unavailable Unavailable Encounter Details Date Type Department Care Team (Late st Contact Info) Description 11/20/2020 Orders Only [facility] [address] [place] [address] Conversion, Onbase Social History Tobacco Use Types [...] Description 04/14/2025 9:30 AM EDT Hospital Encounter [facility] [place] [address] [facility] 3529 [place] [address] Kervin Fair MD [address] [place], [place] [address] Ventricular tachycardia (Multi) 04/14/2025 11:00 AM EDT - 04/14/2025 3:00 PM EDT Surgery [facility] [place] [address] [facility] 3529 [place] [address] Kervin Fair MD [address] [place], [place] [phone] [place] [63761 (CPT )] 07/14/2025 1:00 PM EDT Office Visit [facility] 703 [facility] 250 [place] [address] Oscar Rodriguez MD 703 [facility] 2, Steve [address] [place] [address] 09/26/2025 12:20 PM EST Appointment [facility] [address] [place] [address] 09/26/2025 1:00 PM EST Office Visit [facility] 125 E [facility] 320 [place] [address] June Preston MD 125 E [facility] Office [facility], [facility] 305 [place] [address] Scheduled Orders Name Type Priority Associated Diagnoses [...] documented as of this encounter Care Teams Dental Specialist Relationship Specialty Start Date End Date Tremaine West DO [address] [place] Amor Childerscristino, DO Steve [address] [place] [address] PCP - General 01/22/22 11/05/23 Generic Provider, No Assigned Pcp, [place] [address] PCP - General Insurance Account Specialist 08/08/24 11/10/24 Conchita Aden MD [address] [place] [address] PCP - General Family Medicine 11/11/24 Ania Brothers, AGRICULTURAL SERVICE TECHNICIAN-COMPUTER GAME DESIGNER 1610 [facility] Tremaine West, DO Steve [address] [place] [address] Nurse Practitioner Cardiology 09/30/23 02/16/24 June Preston MD 1610 [facility] Tremaine Childersyukoezekiel DO Steve [address] [place] [address] Service Line Layer Cardiology 09/30/23 02/16/24 Sol Keita, PERFUME COMPOUNDER [employer] Circuit BoardsHorse Farm Manager 02/19/24 05/17/24 June Preston MD 125 E [facility], Steve [address] [place] [address] Consulting Physician Cardiology 02/19/24 02/29/24 Oscar Rodriguez MD [address] [place] [address] 2, [address] [place] [address] Consulting Physician Cardiology 02/19/24 02/29/24 Diane Min, occupational health managerHorse Farm Manager 09/05/24 12/06/24 June Perston MD 125 E [facility], [facility] 305 [place] [address] Service Line Layer Electrophysiology 09/13/24 Diane Min, occupational health managerHorse Farm Manager 01/16/25 01/31/25 documented as of this encounter
--- OUTSIDE RECORDS SUMMARY | 2025-04-08 13:10 | XMS_ITS | Encounter Summary ---
Author Organization [facility] Address [address] [place] [address] Care Team Providers Care Home Visits Nurse Name Role Phone Conchita Aden MD Primary Care Provider [phone] Encounter Details Date Type Department Care Team (Late Contact Info) Description 10/22/2024 Abstract [facility] OB [address] [facility] [place] [phone] David Ewing, DO [address] [facility] [address] Sven [place], [facility] Social History Tobacco Use Types Packs/Day Years [...] filedocumented in this encounter Care Teams Home Visits Nurse Relationship Specialty Start Date End Date Conchita Aden MD PCP - General Family Medicine 11/07/24 documented as of this encounter
--- OUTSIDE RECORDS SUMMARY | 2025-04-08 13:10 | XMS_ITS | Encounter Summary ---
Author Organization [facility] Address [address] [place] [address] Care Team Providers Care Boat Worker Name Role Phone Conchita Aden MD Primary Care Provider [phone] Encounter Details Date Type Department Care Team (Late st Contact Info) Description 03/27/2025 External Result Encounter [facility] External Department Unsolicited Lorrie Winn MD [address] [facility] 210 [place] [address] Social History Tobacco Use Types Packs/Day Years [...] Procedure Name Priority Date/Time Associated Diagnosis Comments US PELVIS 03/27/2025 11:11 AM EDT documented in this encounter Results * US pelvis (03/27/2025 11:11 AM EDT) Anatomical Region Laterality Modality Pelvis Ultrasound 03/27/2025 11:1 1 AM EDT Impressions 03/27/2025 11:16 AM EDT There is a relatively anechoic cystic structure [...] Moreno M.D. 03/27/2025 11:14 AM Dictation Location: [facility] Tech: [place] Transcribed By: PWS 03/27/25 1114 Dictated By: Gerber Moreno II, MD 03/27/25 1111 Signed By: <Electronically signed by Gerber Moreno II, MD in OV> 03/27/25 1114 Narrative 03/27/2025 11:16 AM EDT [facility] [place] [address] Ultrasound Report Signed Patient: Latanya Martinez MR#: [id number] : 1960 Acct:[id number] Age/Sex: 64 / F ADM Date: 03/26/25 Loc: Room: [address] [place] [address] Type: ADM IN Attending Dr: Yonis Covington DO Ordering Provider: RACHEAL Farley Date of Service: 03/27/25 US/US pelvic complete: Pelvic mass Copies to: DO Lorrie Myers MD-[facility] EXAMINATION TYPE: US pelvic complete Grayscale, color [...] evidence of ovarian ischemia. US/US pelvic complete Procedure Note Gerber Moreno MD - 03/27/2025 [facility] Main [place] [address] [place] [address] Ultrasound Report Signed Patient: Latanya Martinez AMR#: [id number] : [id number]:[id number] Age/Sex: 64 / FADM Date: 03/26/25 Loc: Room: [id number]: ADM IN Attending Dr: Yonis Covington DO Ordering Provider: RACHEAL Farley Date of Service: 03/27/25 US/US pelvic complete: Pelvic mass Copies to: DO Lorrie Myers MD-[facility] EXAMINATION TYPE: US pelvic complete Grayscale, color scale Doppler,vascular duplex analysis of the bilateral ovaries DATE OF EXAM ORDERED: 03/26/2025 5:08 PM HISTORY: Right adnexal cyst COMPARISON: 02/19/2024 TECHNIQUE: Realtime Transabdominal imaging was performed. Grayscale,color scale Doppler, vascular duplex analysis of the bilateral ovaries was performed to assess bloodflow. FINDINGS: The uterus measures 6.1 x 2.4 x 3.8 cm. The uterus is normal inechogenicity. Endometrium: Normal thickness and appearance. The endometrium measures 2mm in thickness. Ovaries: There is a relatively anechoic cystic structure redemonstrated inthe right adnexa with a possible mural nodule measuring 5.8 x 4.4 x 3.7 cm in greatest dimension.This is unchanged when compared to the prior CT. This is atypical for the patient's age. Right Ovary measurements: 6.7 x 3.9 x 5.0 cm Left Ovary measurements: 2.0 x 1.2 x 1.3 cm No abnormal adnexal mass is seen. No free fluid in the pelvic cul-de-sac. Vascular duplex analysis of the bilateral ovaries demonstrates normalblood flow without evidence of ovarian ischemia. US/US pelvic complete IMPRESSION: There is a relatively anechoic cystic structure redemonstrated in theright adnexa with a possible mural nodule measuring 5.8 x 4.4 x 3.7 cm in greatest dimension. This isunchanged when compared to the prior CT. This is atypical for the patient's age. This is unchangeddating back to 02/19/2024. No evidence of ovarian ischemia. Impression dictated by: Gerber Moreno M.D. 03/27/2025 11:14 AM Dictation Location: [place] [address] Tech: Le Millan Transcribed By: [facility] 03/27/25 1114 Dictated By: Gerber Moreno II, MD 03/27/25 1111 Signed By: <Electronically signed by Gerber Moreno II, MD inOV> 03/27/25 1114 us Lorrie Winn MD IMG US PROCEDURES Final Result documented in this encounter Visit Diagnoses Not on filedocumented in this encounter Care Teams Boat Worker Relationship Specialty Start Date End Date Conchita Aden MD PCP - General Family Medicine 11/07/24 documented as of this encounter
--- OUTSIDE RECORDS SUMMARY | 2025-04-08 13:10 | XMS_ITS | Encounter Summary ---
Author Organization [facility] Address [address] [place] [address] Phone Care Team Providers Care Dimension Quarry Supervisor Name Role Phone Bossman Sol Oscar HOPPER Unavailable [phone] June Preston MD Unavailable Oscar Rodriguez MD Unavailable [phone] Generic Provider, No Assigned Pcp Primary Car e Provider Unavailable Diane Min RN Unavailable Unavailable June Preston MD Unavailable Conchita Aden MD Primary Care Provider [phone] Diane Min RN Unavailable Unavailable Encounter Details Date Type Department Care Team (Late st Contact Info) Description 02/19/2024 Scanned Document [facility] [address] [place] [address] Scanning, Generic Provider Social History Tobacco Use [...] a group home (including now)? No 02/16/2024 Comments Unknown Sex [...] Description 04/14/2025 9:30 AM EDT Hospital Encounter [facility] [place] [address] [facility]9 [place] [address] Kervin Fair MD [address] [place] [address] Ventricular tachycardia (Multi) 04/14/2025 11:00 AM EDT - 04/14/2025 3:00 PM EDT Surgery [facility] [place] [address] [place] [address] Kervin Fair MD [address] [place] [address] [place] [[address]85 (CPT )] 07/14/2025 1:00 PM EDT [facility] 703 [facility] Steve [address] [place] [address] Oscar Rodriguez MD 703 [facility] 2, Steve [address] [place] [address] 09/26/2025 12:20 PM EST Appointment [facility] [address] [place] [facility] [place] [address] 09/26/2025 1:00 PM EST Office Visit [facility] 125 E [facility] [address] [place] [address] June Preston MD 125 E [facility] Medical Office Bl, Steve [address] [place] [address] documented as of this encounter Visit Diagnoses [...] documented as of this encounter Care Teams Dimension Quarry Supervisor Relationship Specialty Start Date End Date Generic Provider, [place] [address] PCP - General Director Critical Care 08/08/24 11/10/24 Conchita Aden MD [facility]5 [facility] [place] [address] PCP - General Family Medicine 11/11/24 Sol Keita, INTERNATIONAL TRADE ANALYST Tank TenderFinisher Machine 02/19/24 05/17/24 June Preston MD 125 E [facility], [address] [place] [address] Consulting Physician Cardiology 02/19/24 02/29/24 Oscar Rodriguez MD [address] [place] [address] 2, [address] [place] [address] Consulting Physician Cardiology 02/19/24 02/29/24 Diane Min RN Care Finisher Machine 09/05/24 12/06/24 June Preston MD 125 E [facility], [address] [place] [address] Agricultural Systems Specialist Electrophysiology 09/13/24 Diane Min, examiner rating clerkFinisher Machine 01/16/25 01/31/25 documented as of this encounter
--- OUTSIDE RECORDS SUMMARY | 2025-04-08 13:10 | XMS_ITS | Encounter Summary ---
Author Organization [facility] Address [address] [place] [address] Phone Care Team Providers Care Pre K Special Education Teacher Name Role Phone Tremaine West DO Primary Care Provider Ania Brothers CITY DESIGNER-BUSINESS RELATIONSHIP MANAGER Unavailable Unavailable June Preston MD Unavailable Sol Keita CLAY THROWER Unavailable [phone] June Preston MD Unavailable Oscar Rodriguez MD Unavailable [phone] Generic Provider, No Assigned Pcp Primary Car e Provider Unavailable iDane Min RN Unavailable Unavailable June Preston MD Unavailable Conchiat Aden MD Primary Care Provider [phone] Diane Min RN Unavailable Unavailable Encounter Details Date Type Department Care Team (Late st Contact Info) Description 03/25/2023 Orders Only [facility] [address] [place] [address] Conversion, Onbase Social History Tobacco Use Types [...] Description 04/14/2025 9:30 AM EDT Hospital Encounter [facility] [place] [address] [facility] 35[address] [place] [address] Kervin Fair MD [address] [place] [address] Ventricular tachycardia (Multi) 04/14/2025 11:00 AM EDT - 04/14/2025 3:00 PM EDT Surgery [facility] [place] [address] [facility] 35[address] [place] [address] Kervin Fair MD [address] [place], [place] [id number] [place] [12[address] (CPT )] 07/14/2025 1:00 PM EDT [facility] 703 [facility] 250 [place] [address] Oscar Rodriguez MD 703 [facility] 2, Steve [address] [place] [address] 09/26/2025 12:20 PM EST Appointment [facility] [address] [place] [address] 09/26/2025 1:00 PM EST Office Visit [facility] 125 [address] [facility] 320 [place] [address] June Preston MD 125 E [facility] Office [facility], [facility] 305 [place] [address] Scheduled Orders Name Type Priority Associated Diagnoses [...] documented as of this encounter Care Teams Pre K Special Education Teacher Relationship Specialty Start Date End Date Tremaine West DO 1610 [facility] Tremaine West [facility] 103 [place] [address] PCP - General 01/22/22 11/05/23 Generic Provider, No Assigned [place], [place] [address] PCP - General Car Attendant 08/08/24 11/10/24 Conchita Aden MD [address] [place] [address] PCP - General Family Medicine 11/11/24 Ania Brothers APRN-BUSINESS RELATIONSHIP MANAGER [address] [place] Amor [address] [facility] 103 [place] [address] Nurse Practitioner Cardiology 09/30/23 02/16/24 June Preston MD 1610 [facility] Tremaine West [facility] 103 [place] [address] Associate Trainer Cardiology 09/30/23 02/16/24 Sol Keita, CLAY THROWER Painter BarrelMedical Program Specialist 02/19/24 05/17/24 June Preston MD 125 E [facility] Medical [facility] Bl, Steve [address] [place] [address] Consulting Physician Cardiology 02/19/24 02/29/24 Oscar Rodriguez MD 703 [facility] 2, [address] [place] [address] Consulting Physician Cardiology 02/19/24 02/29/24 Diane Min, mdm developerMedical Program Specialist 09/05/24 12/06/24 June Preston MD [facility] Steve [address] [place] [address] Associate Trainer Electrophysiology 09/13/24 Diane Min, mdm developerMedical Program Specialist 01/16/25 01/31/25 documented as of this encounter
--- OUTSIDE RECORDS SUMMARY | 2025-04-08 13:10 | XMS_ITS | Clinical Summary ---
Author Organization [facility] Address [address] [place] [address] Care Team Providers Care Inventory Associate Name Role Phone Conchita Aden MD Primary Care Provider [phone] Allergies No known active allergies Medications oxybutynin [...] Encounters Date Type Department Care Team Description 03/27/2025 External Result Encounter [facility] External Department Unsolicited Lorrie Winn MD 03/26/2025 External Result Encounter [facility] External Department Unsolicited Lorrie Winn MD 03/26/2025 External Result Encounter [facility] External Department Unsolicited Lorrie Winn MD from Last 3 Months Immunizations Immunization Administration [...] 2025 06/21/2021, 01/22/2021, 08/02/2019, Additional history exists Procedures Procedure Name Priority Date/Time Associated Diagnosis Comments US PELVIS 03/27/2025 11:11 AM EDT CA 125 Routine 03/26/2025 5:52 PM EDT CARCINOEMBRYONIC ANTIGEN Routine 025 5:52 PM EDT from Last 3 Months Results * US pelvis (03/27/2025 11:11 AM [...] Moreno M.D. 03/27/2025 11:14 AM Dictation Location: [place] [address] Tech: Le Millan Transcribed By: KATHLEEN 03/27/25 1114 Dictated By: Gerber Moreno II, MD 03/27/25 1111 Signed By: <Electronically signed by Gerber Moreno II, MD in OV> 03/27/25 1114 Narrative 03/27/2025 11:16 AM EDT [facility] Main Reading [address] [place] [address] Ultrasound Report Signed Patient: Latanya Martinez MR#: [id number] : 1960 Acct:[id number] Age/Sex: 64 / F ADM Date: 03/26/25 Loc: Room: [address] [place] [address] Type: ADM IN Attending Dr: Yonis Covington [...] Procedure Note Gerber Moreno MD - 03/27/2025 [facility] Main Reading [address] [place] [address] Ultrasound Report Signed Patient: Latanya Martinez AMR#: [id number] : 1Acct:[id number] Age/Sex: 64 / FADM Date: 03/26/25 Loc: Room: [id number]: ADM IN Attending Dr: Yonis Covington DO [...] Moreno M.D. 03/27/2025 11:14 AM Dictation Location: [place] [address] Tech: Le Millan Transcribed By: PWS 03/27/25 1114 Dictated By: Gerber Moreno II, MD 03/27/25 1111 Signed By: <Electronically signed by Gerber Moreno II, MD inOV> 03/27/25 1114 us Lorrie Winn MD IMG US PROCEDURES Final Result * CARCINOEMBRYONIC ANTIGEN (03/26/2025 5:52 PM EDT) CARCINOEMBRYONIC ANTIGEN 1.4 0.0 - 3.0 ng/mL 03/26/2025 6:49 PM EDT [facility] Comment: Serial tumor marker results determined by assays using different manufacturers or methods may not be comparable. [facility] Laboratory pressing department supervisor and method: SAEED UNICEL DXI, 2 SITE IMMUNOENZYMATIC S ANDWICH ASSAY. Other Topography unknown / Unknown 03/26/2025 5:52 PM EDT 03/26/2025 6:10 PM EDT us Lorrie Winn MD LAB BLOOD ORDERABLES Final Res ult [facility] [address] [place] [address], [facility] [address] [place] [address] * CA 125 (03/26/2025 5:52 PM EDT) CANCER ANTIGEN 125 10.3 0.0 - 38.1 03/29/2025 3:36 AM EDT [facility] Comment: [facility] Electrochemiluminescence Immunoassay (ECLIA) Values obtained with different assay methods or kits cannot be used interchangeably. Results cannot be interpreted as absolute evidence of the presence or absence of malignant disease. Performed at: [address] [id number] Desk Director: Jose Damon PhD, Phone: [phone] Other Topography unknown / Unknown 03/26/2025 5:52 PM EDT 03/26/2025 6:10 PM EDT us Lorrie Winn MD LAB BLOOD ORDERABLES Final Res ult [facility] [address] [place] [address], from Last 3 Months Insurance [employer]AGE Care Teams Inventory Associate Relationship Specialty Start Date End Date Conchtia Aden MD PCP - General Family Medicine 11/07/24
--- OUTSIDE RECORDS SUMMARY | 2025-04-08 13:10 | XMS_ITS | Patient Health Record ---
Author Organization [facility] [place] Address [address] [place] [address] Care Team Providers Care School Supervisor Name Role Phone Conchita Aden Primary Care Provider Unavailabl e Results Component Value Reference Range Notes BNP Reviewed date:10/30/2024 08:29:21 PM Interpretation: Performing Lab: Notes/Report: [facility] , NT Pro B Type Natriuretic Pept 352.0 <=900.0 pg/mL Performing Lab: see note ML - [facility] LB INFLUENZA A AND B AG Reviewed date:10/31/2024 08:21:23 PM Interpretation: Performing Lab: Notes/Report: [facility] , Influenza Virus A Antigen Negative Negative [...] Performing Lab: see note ML - [facility] LB LACTATE or LACTIC ACID Reviewed date:10/30/2024 08:29:21 PM Interpretation: Performing Lab: Notes/Report: [facility] , Lactate/Lactic Acid 3.0 0.4-2.0 mmol/L RESULT S CALLED TO SARA ZAVALETA Performing Lab: see note ML - [facility] LB Prothrombin Time INR Reviewed date:10/31/2024 08:21:23 PM Interpretation: Performing Lab: Notes/Report: [facility] , Prothrombin Time 64.4 9.0-11.6 sec RESULTS CALLED TO SUSSY CANO RN @BY Dilia Wilks at 2127 INR 7.41 RESULTS CALLED TO SUSSY CANO RN @BY Dilia Wilks at 2127 DESIRED INR: 2.0-3.0 CONDITIONS NOT LISTED BELOW 2.5-3.5 FOR PROSTHETIC HEART VALVE REPLACEMENT 2.5-3.5 RECURRENT THROMBOSIS Performing Lab: see note ML - [facility] LB Troponin I High Sensitivity Reviewed date:10/30/2024 08:29:22 PM Interpretation: Performing Lab: Notes/Report: [facility] , Troponin I High Sensitivity 6.0 4.0-51.3 pg/mL CUT-OFF POINTS HAVE BEEN ESTABLISHED BASED ON THE FOURTH UNIVERSAL DEFINITION OF MYOCARDIAL INFARCTION. THE UPPER REFERENCE LIMIT (URL) OF TROPONIN, DEFINED THE 99TH PERCENTILE OF cTnI DISTRIBUTION IN A REFERENCE POPULATION, HAS BEEN CONFIRMED THE DECISION THRESHOLD FOR NM DIAGNOSIS. 99TH PERCENTILE = 51.4 PG/ML NOTE: HIGH-SENSITIVITY TROPONIN ASSAY IS NOT INTENDED TO BE USED IN ISOLATION BUT SHOULD BE INTERPRETED IN CONJUNCTION WITH OTHER DIAGNOSTIC AND CLINICAL INFORMATION. Performing Lab: see note ML - [facility] LB SARS-CoV-2 Ag* Reviewed date:10/31/2024 08:21:23 PM Interpretation: Performing Lab: Notes/Report: [facility] , SARS-CoV-2 Ag NEGATIVE NEGATIVE This test [...] sooner. Performing Lab: see note ML - [facility] LB LACTATE or LACTIC ACID Reviewed date:10/31/2024 08:21:23 PM Interpretation: Performing Lab: Notes/Report: [facility] , Lactate/Lactic Acid 1.7 0.4-2.0 mmol/L Performing Lab: see note ML - [facility] LB Troponin I High Sensitivity Reviewed date:10/31/2024 08:21:23 PM Interpretation: Performing Lab: Notes/Report: [facility] , Troponin I High Sensitivity 8.6 4.0-51.3 pg/mL CUT-OFF POINTS HAVE BEEN ESTABLISHED BASED ON THE FOURTH UNIVERSAL DEFINITION OF MYOCARDIAL INFARCTION. THE UPPER REFERENCE LIMIT (URL) OF TROPONIN, DEFINED THE 99TH PERCENTILE OF cTnI DISTRIBUTION IN A REFERENCE POPULATION, HAS BEEN CONFIRMED THE DECISION THRESHOLD FOR NM DIAGNOSIS. 99TH PERCENTILE = 51.4 PG/ML NOTE: HIGH-SENSITIVITY TROPONIN ASSAY IS NOT INTENDED TO BE USED IN ISOLATION BUT SHOULD BE INTERPRETED IN CONJUNCTION WITH OTHER DIAGNOSTIC AND CLINICAL INFORMATION. Performing Lab: see note ML - [facility] LB CBC AUTO DIFF Reviewed date:10/31/2024 08:21:23 PM Interpretation: Performing Lab: Notes/Report: [facility] , White Blood Count 14.0 4.0-11.0 10 [...] 3/uL Performing Lab: see note ML - [facility] LB PROF 14(COMP METB) Reviewed date:10/31/2024 08:21:23 PM Interpretation: Performing Lab: Notes/Report: [facility] , Sodium 136 136-145 mmol/L Potassium 4.0 [...] 0.6 Performing Lab: see note ML - [facility] Prothrombin Time INR Reviewed date:10/31/2024 08:21:23 PM Interpretation: Performing Lab: Notes/Report: [facility] , Prothrombin Time 25.0 9.0-11.6 sec INR 2.59 DESIRED INR: 2.0-3.0 CONDITIONS NOT LISTED BELOW 2.5-3.5 FOR PROSTHETIC HEART VALVE REPLACEMENT 2.5-3.5 RECURRENT THROMBOSIS Performing Lab: see note ML - [facility] BNP Reviewed date:11/02/2024 03:17:53 PM Interpretation: Performing Lab: Notes/Report: [facility] , NT Pro B Type Natriuretic Pept 398.0 <=900.0 pg/mL Performing Lab: see note ML - [facility] CBC AUTO DIFF Reviewed date:11/02/2024 03:17:53 PM Interpretation: Performing Lab: Notes/Report: [facility] , White Blood Count 16.1 4.0-11.0 10 [...] 3/uL Performing Lab: see note ML - [facility] LB PROF 14(COMP METB) Reviewed date:11/02/2024 03:17:53 PM Interpretation: Performing Lab: Notes/Report: [facility] , Sodium 135 136-145 mmol/L Potassium 3.6 [...] Ratio 0.7 Performing Lab: see note - [facility] LB Prothrombin Time INR Reviewed date:11/02/2024 03:17:53 PM Interpretation: Performing Lab: Notes/Report: [facility] , Prothrombin Time 11.9 9.0-11.6 sec INR 1.14 DESIRED INR: 2.0-3.0 CONDITIONS NOT LISTED BELOW 2.5-3.5 FOR PROSTHETIC HEART VALVE REPLACEMENT 2.5-3.5 RECURRENT THROMBOSIS Performing Lab: see note - [facility] LB XR chest 2V Reviewed date:11/02/2024 03:17:53 PM Interpretation: Performing Lab: Notes/Report: Source Facility: [place] [address] XRay Report Signed Patient: KING MORENO MR#: [id number] : 1960 Acct:[id number] Age/Sex: 63 / F ADM Date: 10/30/24 Loc: [place] 203-[address]: Parmjit Snowden M.D. Ordering Physician: Parmjit Snowden M.D. Date of Service: 11/01/24 Procedure(s): XR chest 2V Accession Number(s): [id number] cc: Conchita Aden M.D.; Parmjit Snowden M.D. [place] [address] Patient Name: KING MORENO MRN: [facility]:[id number] date: 1960 Sex: F Assigned Patient Location: [place] Current Patient Location: [place] Accession/Order Number: [id number] Exam Date: 11/01/2024 09:30 Report Date: 11/01/2024 [...] Signed By: 11/01/24 1002 DD/ 1000 TD/TT: Sl[employer]er: [place] [address] XRay Report Signed Patient: NANETTE MORENO MR#: [id number] : 1960 Acct:[id number] Age/Sex: 63 / F ADM Date: 10/30/24 Loc: [place] 203-[address]: Fredi Snowden M.D. Ordering Physician: Parmjit Snowden M.D. Date of Service: 11/01/24 Procedure(s): XR [address] 2V Accession Number(s): [id number] cc: Conchita Aden M.D.; Parmjit Snowden M.D. The [address] [address] Patient Name: KING MORENO MRN: [facility]:[id number] date: 1960 Sex: F Assigned Patient Location: MS Current Patient Location: [place] Accession/Order Numb er: [id number] Exam Date: 09:30 Report Date: 11/01/2024 10:00 [...] Signed By: 11/01/24 1002 DD/ 1000 TD/TT: [employer]: CBC AUTO DIFF Reviewed date:11/02/2024 03:17:53 PM Interpretation: Performing Lab: Notes/Report: [facility] , White Blood Count 20.8 4.0-11.0 10 [...] 3/uL Performing Lab: see note ML - [facility] MAGNESIUM Reviewed date:11/02/2024 03:17:53 PM Interpretation: Performing Lab: Notes/Report: [facility] , Magnesium 2.0 1.8-2.4 mg/dL Performing Lab: see note - [facility] PROF 14(COMP METB) Reviewed date:11/02/2024 03:17:53 PM Interpretation: Performing Lab: Notes/Report: [facility] , Sodium 139 136-145 mmol/L Potassium 4.0 [...] 0.6 Performing Lab: see note ML - [facility] Prothrombin Time INR Reviewed date:11/02/2024 03:17:53 PM Interpretation: Performing Lab: Notes/Report: [facility] , Prothrombin Time 12.9 9.0-11.6 sec INR 1.24 DESIRED INR: 2.0-3.0 CONDITIONS NOT LISTED BELOW 2.5-3.5 FOR PROSTHETIC HEART VALVE REPLACEMENT 2.5-3.5 RECURRENT THROMBOSIS Performing Lab: see note ML - [facility] LB Reason For Referral No Information Problems Problem Type SNOMED Code ICD Code Onset Dates Problem Status W/U Status Risk Notes Problem Benign essential HTN (I10) Active confirmed Problem Bipolar 1 disorder (484590786) Bipolar 1 disorder (F31.9) Active confirmed Problem Diabetes mellitus (39311299) Diabetes mellitus (E11.9) Active confirmed Plan Of Treatment No Information Insurance Providers Payer Name Payer Address Payer Phone Subscriber Number Group Number Insured Name Patient Relationship to Insured Coverage Start Date Coverage End Date [employer] MEDIBLUE DUAL ADV PRIMARY MEDICARE [address] [place] [address] [id number] King Moreno Self - patient is the insured 3 MEDICAID [place] 2ND INS [address] OFFICE OF [facility] [address] [place] [id number] King Moreno Self - patient is the insured
--- OUTSIDE RECORDS SUMMARY | 2025-04-08 13:10 | XMS_ITS | Encounter Summary ---
Author Organization [facility] Address [address] [place] [address] Phone Care Team Providers Care High School Music Instructor Name Role Phone Tremaine West DO Primary Care Provider Ania Brothers CNA GNA-CAN FILLER Unavailable Unavailable June Preston MD Unavailable Sol Keita SECURITY INSTALLATION TECHNICIAN Unavailable [phone] June Preston MD Unavailable Oscar Rodriguez MD Unavailable [phone] Generic Provider, No Assigned Pcp Primary Car e Provider Unavailable Diane Min RN Unavailable Unavailable June Preston MD Unavailable Conchita Aden MD Primary Care Provider [phone] Diane Min RN Unavailable Unavailable Encounter Details Date Type Department Care Team (Late st Contact Info) Description 07/22/2023 Scanned Document [facility] [address] [place] [address] Conversion, Onbase Social History Tobacco Use Types [...] Description 04/14/2025 9:30 AM EDT Hospital Encounter [facility] [place] [address] [place] [address] [place] [phone] Kervin Fair MD [address] [place] [address] Ventricular tachycardia (Multi) 04/14/2025 11:00 AM EDT - 04/14/2025 3:00 PM EDT Surgery [facility] [place] [address] [place] [address] [place] [address] Kervin Fair MD [address] [place], [place] [id number] [place] [[address] (CPT )] 07/14/2025 1:00 PM EDT Office Visit [facility] [address] [facility] [address] [place] [address] Oscar Rodriguez MD [address] [facility] [address], [address] [place] [address] 09/26/2025 12:20 PM EST Appointment [facility] [address] [place] [address] 09/26/2025 1:00 PM EST Office Visit [facility] [address] [facility] [address] [place] [address] June Preston MD [address] [facility] Office [facility], [address] [place] [address] documented as of this encounter Procedures Procedure [...] documented as of this encounter Care Teams High School Music Instructor Relationship Specialty Start Date End Date Tremaine West DO [address] [facility] Tremaine West DO [address] [address] PCP - General 01/22/22 11/05/23 Generic Provider, No Assigned Pcp, [place] [address] PCP - General Senior Controls Analyst 08/08/24 11/10/24 Conchita Aden MD [address] [place] [address] PCP - General Family Medicine 11/11/24 Ania Brothers, CNA GNA-CAN FILLER [address] [place] [address] [address] Nurse Practitioner Cardiology 09/30/23 02/16/24 June Preston MD [address] [address] Icing Machine Operator Cardiology 09/30/23 02/16/24 Sol Keita, SECURITY INSTALLATION TECHNICIAN Director Of Capital GivingWagon Winder 02/19/24 05/17/24 June Preston MD [address] [facility], [address] [place] [address] Consulting Physician Cardiology 02/19/24 02/29/24 Oscar Rodriguez MD [address] [facility] [address] [place] [address] Consulting Physician Cardiology 02/19/24 02/29/24 Diane Min, store operations associateWagon Winder 09/05/24 12/06/24 June Preston MD [address] [facility], [address] [place] [address] Icing Machine Operator Electrophysiology 09/13/24 Diane Min, store operations associateWagon Winder 01/16/25 01/31/25 documented as of this encounter
--- OUTSIDE RECORDS SUMMARY | 2025-04-08 13:10 | XMS_ITS | Encounter Summary ---
Author Organization [facility] Address [address] [place] [address] Care Team Providers Care Form Grader Name Role Phone Conchita Aden MD Primary Care Provider [phone] Encounter Details Date Type Department Care Team (Late st Contact Info) Description 03/26/2025 External Result Encounter [facility] External Department Unsolicited Lorrie Winn MD [address] [facility] [address] [place] [address] Social History Tobacco Use Types Packs/Day Years [...] Procedure Name Priority Date/Time Associated Diagnosis Comments CARCINOEMBRYONIC ANTIGEN Routine 025 5:52 PM EDT documented in this encounter Results * CARCINOEMBRYONIC ANTIGEN (03/26/2025 5:52 PM EDT) CARCINOEMBRYONIC ANTIGEN 1.4 0.0 - 3.0 ng/mL 03/26/2025 6:49 PM EDT [facility] Comment: Serial tumor marker results determined by assays using different manufacturers or methods may not be comparable. [facility] recreation assistant and method: SAEED UNICEL DXI, 2 SITE IMMUNOENZYMATIC S ANDWICH ASSAY. Other Topography unknown / Unknown 03/26/2025 5:52 PM EDT 03/26/2025 6:10 PM EDT us Lorrie Winn MD LAB BLOOD ORDERABLES Final Res ult [facility] [address] [place] [address], [facility] [address] [place] [address] documented in this encounter Visit Diagnoses Not on filedocumented in this encounter Care Teams Form Grader Relationship Specialty Start Date End Date Conchita Aden MD PCP - General Family Medicine 11/07/24 documented as of this encounter
--- OUTSIDE RECORDS SUMMARY | 2025-04-08 13:10 | XMS_ITS | Encounter Summary ---
Author Organization [facility] Address [address] [place] [address] Care Team Providers Care Mock Up Maker Name Role Phone Conchita Aden MD Primary Care Provider [phone] Encounter Details Date Type Department Care Team (Late st Contact Info) Description 06/29/2023 External Result Encounter [facility]S External Department Unsolicited Steve Combs, DO [address] [facility] [address] [place] [address] Social History Tobacco Use Types Packs/Day Years [...] Gerber Moreno M.D.06/29/2023 3:14 PM Dictation Location: [place] [address] Transcribed By: [facility] 06/29/23 1514 Dictated By: Gerber Moreno II, MD 06/29/23 1500 Signed By: <Electronically signed by Gerber Moreno II, MD in OV> 06/29/23 1514 Narrative 06/29/2023 3:36 PM EDT [facility] Main [place] [address] [place] [address] MRI Report Signed Patient: Latanya Martinez MR#: [id number] : 1960 Acct:[id number] Age/Sex: 62 / F ADM Date: 06/29/23 Loc: Room: Type: [facility] Attending Dr: Steve Combs DO Copies to: DO Darcie Draper MD, RES Ordering Provider: [place] Combs DO; Darcie Garcia MD, RES Date of Service: 06/29/23 MR/MR lumbar spine wo/w con: Other intervertebral disc degeneration, lumbar region;Spondy ([id number]) XR/XR pre/post mri xray: M51.36,M43.16 MR lumbar [...] Procedure Note Radiology, Radiologist, MD - 06/29/2023 [facility] Main [place] [address] [place] [address] MRI Report Signed Patient: Latanya Martinez AMR#: [id number] : 1960cct:[id number] Age/Sex: 62 / FADM Date: 06/29/23 Loc: Room:Type: [facility] Attending Dr: [place] Combs DO Copies to: DO Darcie Draper MD, RES Ordering Provider: [place] Combs DO; Darcie Garcia MD, RES Date of Service: 06/29/23 MR/MR lumbar spine wo/w con: Otherintervertebral disc degeneration, lumbar region;Spondy ([id number]) XR/XR pre/post mri xray: M51.36,M43.16 MR lumbar [...] and L4-5. The conus terminates at the L1-M4blvrxdjijxgppm disc level. No epidural or paraspinous fluid [...] mild mass effect on the exiting left Q5zyvsy roots. This are also present. No significant spinal canal stenosis. At L5-S1: There is a normal disc, central canal, and neural foramen. MR/MR lumbar spine wo/w con IMPRESSION: At L4-L5: There is a focal left foraminal disc extrusion contributing tomoderate to severe left neural foraminal narrowing with mild mass effect on the exiting left L3fmpsy roots. This are also present. No significant [...] Gerber Moreno M.D.06/29/2023 3:14 PM Dictation Location: [place] [address] Transcribed By: [facility] 06/29/23 1514 Dictated By: Gerber Moreno II, MD 06/29/23 1500 Signed By: <Electronically signed by Gerber Moreno II, MD inOV> 06/29/23 1514 [place] Combs DO IMG MRI PROCEDURES Final Result documented in this encounter Visit Diagnoses Not on filedocumented in this encounter Care Teams Mock Up Maker Relationship Specialty Start Date End Date Conchita Aden MD PCP - General Family Medicine 11/07/24 documented as of this encounter
--- OUTSIDE RECORDS SUMMARY | 2025-04-08 13:10 | XMS_ITS | Encounter Summary ---
Author Organization [facility] Address [address] [place] [address] Care Team Providers Care Chief Power Dispatcher Name Role Phone Conchita Aden MD Primary Care Provider [phone] Encounter Details Date Type Department Care Team (Late Contact Info) Description 10/30/2024 Clinisync Result Encounter [facility] External Department Unsolicited Charity Gerard PA [address] [place] [address] [place] [address] Social History Tobacco Use Types [...] EST Narrative 10/31/2024 6:59 AM EST The [address] [address] Electrocardiograph Report Signed Patient: KING MORENO MR#: [id number] : 1960 Acct:[id number] Age/Sex: 63 / F ADM Date: 10/30/24 Loc: [place] 203-[address]: Parmjit Poon M.D. Ordering Physician: Charity Gerard Date of Service: 10/30/24 Procedure(s): ECG 12 lead Accession Number(s): [id number] cc: [facility] Test Date: 2024-10-30 Pat Name: KING MORENO Department: Room: - Gender: Female Environmental Solutions Engineer: : 1960 Requested By: CONCHITA ADEN Order Number: [id number] Reading MD: FELIZ JENNINGS Measurements Intervals [place] Rate: 94 P: 68 [place]: 126 QRS: 56 QRSD: 84 T: 90 QT: 348 QTc: 399 Interpretive Statements 1100 Sinus rhythm 4068 Nonspecific Twave abnormality, can't exclude inferolateral ischemia 8102 Low QRS voltage in chest leads 9130 borderline ECG Compared to ECG 10/29/2024 16:19:34 No significant changes Electronically Signed On 10-31-2024 6:59:03 EST by FELIZ JENNINGS Dictated By: Feliz Jennings D.O. Signed By: 10/31/24 0659 DD/ 1500 TD/TT: Pharmacogeneticist: Procedure Note Radiology, Radiologist, MD - 10/31/2024 [place] [address] Electrocardiograph Report Signed Patient: KING MORENO AMR#: [id number] : 1Acct:[id number] Age/Sex: 63 / FADM Date: 10/30/24 Loc: [place] 203-[address]: Parmjit Poon M.D. Ordering Physician: Charity Gerard Date of Service: 10/30/24 Procedure(s): ECG 12 lead Accession Number(s): [id number] cc: [facility] Test Date: 2024-10-30 Pat Name: KING MORENO Department: Room: - Gender: Female Environmental Solutions Engineer: : 1960 Requested By: CONCHITA ADEN Order Number: [id number] Reading MD: FELIZ JENNINGS Measurements Intervals [place] Rate: 94 P: 68 [place]: 126 QRS: 56 QRSD: 84 T: 90 QT: 348 QTc: 399 Interpretive Statements 1100 Sinus rhythm 4068 Nonspecific Twave abnormality, can't exclude inferolateral ischemia 8102 Low QRS voltage in chest leads 9130 borderline ECG Compared to ECG 10/29/2024 16:19:34 No significant changes Electronically Signed On 10-31-2024 6:59:03 EST by FELIZ JENNINGS Dictated By: Feliz Jennings D.O. Signed By:10/31/24 0659 DD/ 1500 TD/TT: Pharmacogeneticist: Charity [facility] Final Result documented in this encounter Visit Diagnoses Not on filedocumented in this encounter Care Teams Chief Power Dispatcher Relationship Specialty Start Date End Date Conchita Aden MD PCP - General Family Medicine 11/07/24 documented as of this encounter
--- OUTSIDE RECORDS SUMMARY | 2025-04-08 13:10 | XMS_ITS | Encounter Summary ---
Author Organization [facility] Address [address] [place] [address] Care Team Providers Care Marine Cargo Surveyor Name Role Phone Conchita Aden MD Primary Care Provider [phone] Encounter Details Date Type Department Care Team (Late Contact Info) Description 10/22/2024 Abstract [facility] OB [address] [facility] [place] [id number] David Ewing, DO [address] [facility] [address] Sven [place], [facility]11 Social History Tobacco Use Types Packs/Day [...] on filedocumented in this encounter Care Teams Marine Cargo Surveyor Relationship Specialty Start Date End Date Conchita Aden MD PCP - General Family Medicine 11/07/24 documented as of this encounter
--- OUTSIDE RECORDS SUMMARY | 2025-04-08 13:10 | XMS_ITS | Encounter Summary ---
Author Organization [facility] Address [address] [place] [address] Phone Care Team Providers Care Retort Operator Name Role Phone Tremaine West DO Primary Care Provider Ania Brothers ROUTE JUMPER-LAB ANIMAL TECHNOLOGIST Unavailable Unavailable June Preston MD Unavailable Sol Keita ATHLETIC EQUIPMENT MANAGER Unavailable [phone] June Preston MD Unavailable Oscar Rodriguez MD Unavailable [phone] Generic Provider, No Assigned Pcp Primary Car e Provider Unavailable Diane Min RN Unavailable Unavailable June Preston MD Unavailable Conchita Aden MD Primary Care Provider [phone] Diane Min RN Unavailable Unavailable Encounter Details Date Type Department Care Team (Late st Contact Info) Description 08/20/2020 Orders Only [facility] [address] [place] [address] Conversion, Onbase Social History Tobacco Use Types [...] Description 04/14/2025 9:30 AM EDT Hospital Encounter [facility] [place] [address] [place] [address] [place] [phone] Kervin Fair MD [address] [place], [place] [phone] Ventricular tachycardia (Multi) 04/14/2025 11:00 AM EDT - 04/14/2025 3:00 PM EDT Surgery [facility] [place] [address] [facility] [address] [place] [address] Kervin Fair MD [address] [place], [place] [id number] [place] [[address] (CPT )] 07/14/2025 1:00 PM EDT Office Visit [facility] 703 [facility] [address] [place] [address] Oscar Rodriguez MD 3 [facility] 2, [address] [place] [address] 09/26/2025 12:20 PM EST Appointment [facility] [address] [place] [address] 09/26/2025 1:00 PM EST Office Visit [facility] [address] [facility] [address] [place] [address] June Preston MD [address] [facility] Medical Office [facility], [facility] [address] [place] [address] Scheduled Orders Name Type Priority Associated Diagnoses [...] documented as of this encounter Care Teams Retort Operator Relationship Specialty Start Date End Date Tremaine West DO [address] Amor West, DO [address] [place] [address] PCP - General 01/22/22 11/05/23 Generic Provider, No Assigned Pcp, [place] [address] PCP - General President Practicing Urologist 08/08/24 11/10/24 Conchita Aden MD [address] [place] [address] PCP - General Family Medicine 11/11/24 Ania Brothers, ROUTE JUMPER-LAB ANIMAL TECHNOLOGIST 1610 [facility] Tremaine West, DO [address] [place] [address] Nurse Practitioner Cardiology 09/30/23 02/16/24 June Preston MD 1610 [facility] Tremaine West DO [address] [place] [address] Survey Research Analyst Cardiology 09/30/23 02/16/24 Sol Keita, ATHLETIC EQUIPMENT MANAGER Aged Or Disabled Care WorkerProcess Validation Engineer 02/19/24 05/17/24 June Preston MD [address] [facility], [address] [place] [address] Consulting Physician Cardiology 02/19/24 02/29/24 Oscar Rodriguez MD [address] [place] [address] 2, [address] [place] [address] Consulting Physician Cardiology 02/19/24 02/29/24 Diane Min, director reportProcess Validation Engineer 09/05/24 12/06/24 June Preston MD [address] [facility] [address], [address] [place] [address] Survey Research Analyst Electrophysiology 09/13/24 Diane Min, director reportProcess Validation Engineer 01/16/25 01/31/25 documented as of this encounter
--- OUTSIDE RECORDS SUMMARY | 2025-04-10 13:44 | XMS_ITS | Clinical Summary ---
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) from Last 3 Months or Most Recently Relevant to Health Maintenance Results * (ABNORMAL) BASIC METABOLIC PNL (05/31/2015 12:41 AM EDT) Glucose 101(H) 65 - 100 mg/dL 05/31/2015 1:52 AM EDT [facility] BUN 3(L) 8 - 25 mg/dL 05/31/2015 1:52 AM T [facility] Creatinine 0.75 0.70 - 1.40 mg/dL 05/31/2015 1:52 AM T [facility] Sodium 135 132 - 148 mmol/L 05/31/2015 1:52 AM T [facility] Potassium 4.3 3.5 - 5.0 mmol/L 05/31/2015 1:52 AM T [facility] Chloride 100 98 - 110 mmol/L 05/31/2015 1:52 AM T [facility] CO2 24 23 - 32 mmol/L 05/31/2015 1:52 AM [facility] Anion Gap 11 0 - 15 mmol/L 05/31/2015 1:52 AM T [facility] Calcium 8.6 8.5 - 10.5 mg/dL 05/31/2015 1:52 AM T [facility] eGFR- >60 05/31/2015 1:52 AM T [facility] eGFR-All Other Races >60 . 05/31/2015 1:52 AM [facility] Comment: eGFR (Estimated GFR) Units [...] Marcial Escobar (Hist) Lin LABORATORY Final Result [facility] [address] [facility] [place] [address] * (ABNORMAL) LIPID PANEL BASIC (05/16/2015 10:42 AM EDT) Triglyceride 118 30 - 149 mg/dL 05/16/2015 6:55 PM EDT [facility] Cholesterol, Total 142 100 - 199 mg/dL 05/16/2015 6:55 PM EDT [facility] HDL Cholesterol 65 >55 mg/dL 5 6:55 PM EDT [facility] VLDL Cholesterol 24 6 - 40 mg/dL 05/16/2015 6:55 PM EDT [facility] LDL Cholesterol, Calculated 53(L) 60 - 129 mg/dL 05/16/2015 6:55 PM EDT [facility] Fasting Time Unknown hrs 05/16/2015 2:56 PM EDT [facility] TC:HDL Ratio 2.18 1.00 - 5.00 05/16/2015 6:55 PM EDT [facility] LDL:HDL Ratio 0.82 0.50 - 3.55 05/16/2015 6:55 PM EDT [facility] Non HDL Cholesterol 77(L) 90 - 159 mg/dL 05/16/2015 6:55 PM EDT [facility] Blood specimen (specimen) BLOOD SPECIMEN / Unknown 05/16/2015 10:42 AM EDT 05/16/2015 10:46 AM EDT us Warner Conde MD LABORATORY Final Result [facility] [address] [place] [address] from Last 3 Months or Most Recently Relevant to Health Maintenance Insurance MEDICARE MEDICAID [place]
--- OUTSIDE RECORDS SUMMARY | 2025-04-10 13:44 | XMS_ITS | Encounter Summary ---
Author Organization [facility] Address [address] [place], [place] [id number] Care Team Providers Care Marble Supervisor Name Role Phone Shanthi Litstephanie Nelson DO Primary Care Provider [phone] Reza Pike MD Primary Care Provider Pcp, No STERILE PROCESSING TECH Primary Care Provider Unavailabl e Source Comments In the event this information is protected by the Federal Confidentiality of Alcohol and Drug AbusePatient Records regulations: The Federal rules restrict any use of the information to criminally investigate or prosecute any alcohol or drug abuse patient.[facility] Encounter Details Date Type Department Care Team (Late st Contact Info) Description 06/01/2015 Letters (in) Colorectal Surgery [address] [id number] Marcial Ceballos (Hist) [address] [phone] Social History Tobacco Use Types Packs/Day Years [...] June 01, 2015 Jd Dailey, DO [address] [address] RE: Latanya Martinez : [address] [...] and she was suitable for anesthesia, a sabianist of continuity could be performed. I performed [...] 22, 2015. Yours Faithfully, Marcial Ceballos MD [place]/ cc: Latanya Martinez 11/03 [place] [address] Lit Maki DO 101[address] [facility] [address] documented in this encounter Plan of Treatment Not on file documented as of this encounter Visit Diagnoses Not on filedocumented in this encounter Care Teams Marble Supervisor Relationship Specialty Start Date End Date Lit Maki DO PCP - General 05/16/15 06/03/15 Reza Pike MD PCP - General Family Medicine 06/04/15 05/16/22 Pcp, No, STERILE PROCESSING TECH PCP - General 05/17/22 12/02/22 documented as of this encounter
--- OUTSIDE RECORDS SUMMARY | 2025-04-10 13:44 | XMS_ITS | Encounter Summary ---
Author Organization [facility] Address [address] [place] [address] Phone Care Team Providers Care Learning Center Coordinator Name Role Phone Tremaine West DO Primary Care Provider Ania Brothers METAL WIRE TECHNICIAN-MEETING FACILITATOR Unavailable Unavailable June Preston MD Unavailable Sol Keita LAMINATOR HAND Unavailable [phone] June Preston MD Unavailable Oscar Rodriguez MD Unavailable [phone] Generic Provider, No Assigned Pcp Primary Car e Provider Unavailable Diane Min RN Unavailable Unavailable June Preston MD Unavailable Conchita Aden MD Primary Care Provider [phone] Diane Min RN Unavailable Unavailable Encounter Details Date Type Department Care Team (Late st Contact Info) Description 07/27/2023 Scanned Document [facility] [address] [place] [address] Conversion, Onbase Social History Tobacco Use Types [...] Description 04/14/2025 9:30 AM EDT Hospital Encounter [facility] [place] [address] [place] [address] [place] [address] Kervin Fair MD [address] [place] [address] Ventricular tachycardia (Multi) 04/14/2025 11:00 AM EDT - 04/14/2025 3:00 PM EDT Surgery [facility] [place] [address] [place] [address] Kervin Fair MD [address] [place] [address] [place] [[address] (CPT )] 07/14/2025 1:00 PM EDT Office Visit [facility] 703 [facility] [address] [place] [address] Oscar Rodriguez MD 703 [facility] 2, [address] [place] [address] 09/26/2025 12:20 PM EST Appointment [facility] [address] [place] [address] 09/26/2025 1:00 PM EST Office Visit [facility] [address] [facility] [address] [place] [address] June Preston MD [address] [facility] Office [facility], [address] [place] [address] documented as of this encounter Procedures Procedure [...] documented as of this encounter Care Teams Learning Center Coordinator Relationship Specialty Start Date End Date Tremaine West DO [address] [place] Amor West DO [address] [address] PCP - General 01/22/22 11/05/23 Generic Provider, No Assigned Pcp, [place] [address] PCP - General Operator Lights 08/08/24 11/10/24 Conchita Aden MD [address] [place] [address] [place] [address] PCP - General Family Medicine 11/11/24 Ania Brothers, METAL WIRE TECHNICIAN-MEETING FACILITATOR [address] Amor West DO [address] [address] Nurse Practitioner Cardiology 09/30/23 02/16/24 June Preston MD 1610 [facility] Tremaine West, [address] [place] [address] Transmission System Operator Cardiology 09/30/23 02/16/24 Sol Keita, LAMINATOR HAND Loan ApproverMotocross Racer 02/19/24 05/17/24 June rPeston MD [address] [facility], [address] [place] [address] Consulting Physician Cardiology 02/19/24 02/29/24 Oscar Rodriguez MD 703 [facility] 2, [address] [place] [address] Consulting Physician Cardiology 02/19/24 02/29/24 Diane Min RN Care Motocross Racer 09/05/24 12/06/24 June Preston MD [address] [facility], [address] [place] [address] Transmission System Operator Electrophysiology 09/13/24 Diane Min, superintendent powerMotocross Racer 01/16/25 01/31/25 documented as of this encounter
--- OUTSIDE RECORDS SUMMARY | 2025-04-10 13:44 | XMS_ITS | Encounter Summary ---
Author Organization [facility] Address [address] [place] [address] Phone Care Team Providers Care Computer Forensics Analyst Name Role Phone Tremaine West DO Primary Care Provider Ania Brothers CATERING SOUS CHEF-COMPLIANCE OFFICER Unavailable Unavailable June Preston MD Unavailable Sol Keita TEXTILE SCREEN MAKER Unavailable [phone] June Preston MD Unavailable Oscar Rodriguez MD Unavailable [phone] Generic Provider, No Assigned Pcp Primary Car e Provider Unavailable Diane Min RN Unavailable Unavailable June Preston MD Unavailable Conchita Aden MD Primary Care Provider [phone] Diane Min RN Unavailable Unavailable Encounter Details Date Type Department Care Team (Late st Contact Info) Description 07/23/2023 Scanned Document [facility] [address] [place] [address] Conversion, Onbase Social History Tobacco Use Types [...] Description 04/14/2025 9:30 AM EDT Hospital Encounter [facility] [place] [address] [place] [address] [place] [address] Kervin Fair MD [address] [place] [address] Ventricular tachycardia (Multi) 04/14/2025 11:00 AM EDT - 04/14/2025 3:00 PM EDT Surgery [facility] [place] [address] [address] [place] [address] Kervin Fair MD [address] [place], [place] [id number] [place] [84531 (CPT )] 07/14/2025 1:00 PM EDT Office Visit [facility] 7[address] [facility] [address] [place] [address] Oscar Rodriguez MD [address] [facility] 2, [address] [place] [address] 09/26/2025 12:20 PM EST Appointment [facility] [address] [place] [address] 09/26/2025 1:00 PM EST Office Visit [facility] [address] [facility] [address] [place] [address] June Preston MD [address] [facility] Office [facility], [address] [place] [address] documented as of this encounter Procedures Procedure [...] documented as of this encounter Care Teams Computer Forensics Analyst Relationship Specialty Start Date End Date Tremaine West DO [address] Amor West DO [address] [address] PCP - General 01/22/22 11/05/23 Generic Provider, No Assigned Pcp, [place] [address] PCP - General It Service Manager 08/08/24 11/10/24 Conchita Aden MD [address] [place] [address] PCP - General Family Medicine 11/11/24 Ania Brothers, CATERING SOUS CHEF-COMPLIANCE OFFICER [address]or [address] [address] Nurse Practitioner Cardiology 09/30/23 02/16/24 June Preston MD [address] [address] Fbi Field Agent Cardiology 09/30/23 02/16/24 Sol Keita, TEXTILE SCREEN MAKER Scale TesterCodifier 02/19/24 05/17/24 June Preston MD [address] [facility], [address] [place] [address] Consulting Physician Cardiology 02/19/24 02/29/24 Oscar Rodriguez MD [address] [place] [address] 2, [address] [place] [address] Consulting Physician Cardiology 02/19/24 02/29/24 Diane Min, hunter guideCodifier 09/05/24 12/06/24 June Preston MD [address] [facility], [address] [place] [address] Fbi Field Agent Electrophysiology 09/13/24 Diane Min, hunter guideCodifier 01/16/25 01/31/25 documented as of this encounter
--- OUTSIDE RECORDS SUMMARY | 2025-04-10 13:44 | XMS_ITS | Encounter Summary ---
Author Organization [facility] Address [address] [place] [address] Phone Care Team Providers Care Transfill Technician Name Role Phone Generic Provider, No Assigned Pcp Primary Car e Provider Unavailable Diane Min RN Unavailable Unavailable June Preston MD Unavailable Conchita Aden MD Primary Care Provider [phone] Diane Min RN Unavailable Unavailable Encounter Details Date Type Department Care Team (Late st Contact Info) Description 11/02/2024 Scanned Document [facility] [address] [place] [address] Scanning, Generic Provider Social History [...] place to sleep or slept in a mcc (including now)? No 02/16/2024 Housing Stability Vital Sign Answer Mookie e Recorded In the last 12 months, was t here a time when you were not able to pay the mortgage or rent on time? No 09/01/2024 In the past 12 months, how m any times have you moved where you were living? 0 09/01/2024 At any time in the past 12 m [facility], were you homeless or living in a mcc (including now)? No 09/01/2024 Comments No Sex and Gender Information Value Date Recorded Sex Assigned at Not on file Legal Sex Female 10:34 AM EST Gender Identity Not on file Sexual Orientation Not on file documented as of this encounter Plan of Treatment Upcoming Encounters Date Type Department Care Team (Latest Contact Info) Description 04/14/2025 9:30 AM EDT Hospital Encounter [facility] [place] [address] [place] [address] Kervin Fair MD [address] [place] [address] Ventricular tachycardia (Multi) 04/14/2025 11:00 AM EDT - 04/14/2025 3:00 PM EDT Surgery [facility] [place] [address] [place] [address] Kervin Fair MD [address] [place], [place] [id number] [place] [66660 (CPT )] 07/14/2025 1:00 PM EDT Office Visit [facility] 7[address] [facility] [address] [place] [address] Oscar Rodriguez MD [address], [address] [place], [place] [address] 09/26/2025 12:20 PM EST Appointment [facility] [address] [place] [address] 09/26/2025 1:00 PM EST Office Visit [facility] [address] [facility] [address] [place] [address] June Preston MD [address] [facility] Medical Office Bldg, [address] [place] [address] documented as of this encounter Visit Diagnoses [...] documented as of this encounter Care Teams Transfill Technician Relationship Specialty Start Date End Date Generic Provider, No [place] [address] PCP - General Shank Archer 08/08/24 11/10/24 Conchita Aden MD [address] [place] [address] [place] [address] PCP - General Family Medicine 11/11/24 Diane Min, freelance copywriterDouble Ending Machine Operator 09/05/24 12/06/24 June Preston MD [address] [facility], [facility] [address] [place] [address] Septic Pump Truck Driver Electrophysiology 09/13/24 Diane Min, freelance copywriterDouble Ending Machine Operator 01/16/25 01/31/25 documented as of this encounter
--- OUTSIDE RECORDS SUMMARY | 2025-04-10 13:44 | XMS_ITS | Encounter Summary ---
Author Organization [facility] Address [address] [place] [address] Phone Care Team Providers Care Framing Mill Operator Helper Name Role Phone Generic Provider, No Assigned Pcp Primary Car e Provider Unavailable Diane Min RN Unavailable Unavailable June Preston MD Unavailable Conchita Aden MD Primary Care Provider [phone] Diane Min RN Unavailable Unavailable Encounter Details Date Type Department Care Team (Late st Contact Info) Description 10/29/2024 Scanned Document [facility] [address] [place] [address] Scanning, Generic Provider Social History [...] any time in the past 12 m [facility], were you homeless or living [...] Description 04/14/2025 9:30 AM EDT Hospital Encounter [facility] [place] [address] [place] [address] Kervin Fair MD [address] [place] [address] Ventricular tachycardia (Multi) 04/14/2025 11:00 AM EDT - 04/14/2025 3:00 PM EDT Surgery [facility] [place] [address] [place] [address] Kervin Fair MD [address] [place], [place] [id number] [place] [[id number] (CPT )] 07/14/2025 1:00 PM EDT Office Visit [facility] 7[address] [facility] [address] [place] [address] Oscar Rodriguez MD [address], [address] [place], [place] [address] 09/26/2025 12:20 PM EST Appointment [facility] [address] [place] [address] 09/26/2025 1:00 PM EST Office Visit [facility] [address] [facility] [address] [place] [address] June Preston MD [address] [facility] Medical Office Bldg, [address] [place] [address] documented as of this encounter Visit Diagnoses [...] documented as of this encounter Care Teams Framing Mill Operator Helper Relationship Specialty Start Date End Date Generic Provider, No [place] [address] PCP - General Director Oncology 08/08/24 11/10/24 Conchita Aden MD [address] [place] [address] [place] [address] PCP - General Family Medicine 11/11/24 Diane Min, cutter banana roomRough Carpenter 09/05/24 12/06/24 June Preston MD [address] [facility], [facility] [address] [place] [address] Manager Molecular Electrophysiology 09/13/24 Diane Min, cutter banana roomRough Carpenter 01/16/25 01/31/25 documented as of this encounter
--- OUTSIDE RECORDS SUMMARY | 2025-04-10 13:44 | XMS_ITS | Encounter Summary ---
Author Organization [facility] Address [address] [place] [address] Phone Care Team Providers Care Climbing Guide Name Role Phone June Preston MD Unavailable Conchita Aden MD Primary Care Provider [phone] Encounter Details Date Type Department Care Team (Late st Contact Info) Description 02/10/2025 Scanned Document [facility] [address] [place] [address] Scanning, Generic Provider Social History Tobacco Use [...] from your doctor or pharmacy? Never 01/08/2025 [facility] Utilities Answer Date Recorded In the past 12 months has e [employer], oil, or water [employer] threatened to shut off services in your [...] week 01/08/2025 How often do you attend adventist or evangelical serv ices? Patient declined 01/08/2025 Do you belong to any clubs o r organizations such as adventist groups, unions, fraternal or athletic groups, or [...] 01/08/2025 [facility] - Occupational [...] any time in the past 12 m [facility], were you homeless or living in [...] Description 04/14/2025 9:30 AM EDT Hospital Encounter [facility] [place] [address] [place] [address] [place] [address] Kervin Fair MD [address] [place] [address] Ventricular tachycardia (Multi) 04/14/2025 11:00 AM EDT - 04/14/2025 3:00 PM EDT Surgery [facility] [place] [address] [address] [place] [address] Kevrin Fair MD [address] [place] [address] [place] [[id number] (CPT )] 07/14/2025 1:00 PM EDT Office Visit [facility] 703 [facility] [address] [place] [address] Oscar Rodriguez MD 703 [facility] 2, [address] [place] [address] 09/26/2025 12:[address] [facility] [address] [place] [address] 09/26/2025 1:00 PM EST Office Visit [facility] [address] [facility] [address] [place] [address] June Preston MD [address] [facility] Office [facility], [place] [address] [place] [address] documented as of this encounter Procedures Procedure [...] documented as of this encounter Care Teams Climbing Guide Relationship Specialty Start Date End Date Conchita Aden MD [address] [place] [address] [place] [address] PCP - General Family Medicine 11/11/24 June Preston MD 125 [address] [facility] Medical Office Bldg, [address] [place] [address] Arts Manager Electrophysiology 09/13/24 documented as of this encounter
--- OUTSIDE RECORDS SUMMARY | 2025-04-10 13:44 | XMS_ITS | Encounter Summary ---
Author Organization [facility] Address [address] [place] [address] Phone Care Team Providers Care Oil Pipeline Operator Name Role Phone Generic Provider, No Assigned Pcp Primary Car e Provider Unavailable Diane Min RN Unavailable Unavailable June Preston MD Unavailable Conchita Aden MD Primary Care Provider Diane Min RN Unavailable Unavailable Encounter Details Date Type Department Care Team (Late st Contact Info) Description 11/05/2024 Scanned Document [facility] [address] [place] [address] Scanning, Generic Provider Social History [...] time in the past 12 m [facility], were you homeless or living [...] Encounter [facility] [place] [address] [place] [address] Kervin Fair MD [address] [place] [address] Ventricular tachycardia (Multi) 04/14/2025 11:00 AM EDT - 04/14/2025 3:00 PM EDT Surgery [facility] [place] [address] [place] [address] Kervin Fair MD [address] [place], [place] [address] [place] [[id number] (CPT )] 07/14/2025 1:00 PM EDT Office Visit [facility] 7[address] [facility] [address] [place] [address] Oscar Rodriguez MD [address], [address] [place], [place] [address] 09/26/2025 12:20 PM EST Appointment [facility] [address] [place] [address] 09/26/2025 1:00 PM EST Office Visit [facility] [address] [facility] [address] [place] [address] June Preston MD [address] [facility] Medical Office Bldg, [address] [place] [address] documented as of this encounter Visit Diagnoses [...] documented as of this encounter Care Teams Oil Pipeline Operator Relationship Specialty Start Date End Date Generic Provider, No [place] [address] PCP - General Slater Apprentice 08/08/24 11/10/24 Conchita Aden MD [address] [place] [address] [place] [address] PCP - General Family Medicine 11/11/24 Diane Min, puff ironerSander Setter 09/05/24 12/06/24 June Preston MD [address] [facility], [facility] [address] [place] [address] Mock Up Maker Electrophysiology 09/13/24 Diane Min, puff ironerSander Setter 01/16/25 01/31/25 documented as of this encounter
--- OUTSIDE RECORDS SUMMARY | 2025-04-10 13:44 | XMS_ITS | Encounter Summary ---
Author Organization [facility] Address [address] [place] [address] Phone Care Team Providers Care Cylinder Checker Name Role Phone Generic Provider, No Assigned Pcp Primary Car e Provider Unavailable Diane Min RN Unavailable Unavailable June Preston MD Unavailable Conchita Aden MD Primary Care Provider [phone] Diane Min RN Unavailable Unavailable Encounter Details Date Type Department Care Team (Late st Contact Info) Description 10/30/2024 Scanned Document [facility] [address] [place] [address] Scanning, Generic Provider Social History [...] place to sleep or slept in a mcfp (including now)? No 02/16/2024 Housing Stability Vital Sign Answer Mookie e Recorded In the last 12 months, was t here a time when you were not able to pay the mortgage or rent on time? No 09/01/2024 In the past 12 months, how m any times have you moved where you were living? 0 09/01/2024 At any time in the past 12 m [facility], were you homeless or living in a mcfp (including now)? No 09/01/2024 Comments No Sex and Gender Information Value Date Recorded Sex Assigned at Not on file Legal Sex Female 10:34 AM EST Gender Identity Not on file Sexual Orientation Not on file documented as of this encounter Plan of Treatment Upcoming Encounters Date Type Department Care Team (Latest Contact Info) Description 04/14/2025 9:30 AM EDT Hospital Encounter [facility] [place] [address] [place] [address] Kervin Fair MD [address] [place] [address] Ventricular tachycardia (Multi) 04/14/2025 11:00 AM EDT - 04/14/2025 3:00 PM EDT Surgery [facility] [place] [address] [place] [address] Kervin Fair MD [address] [place], [place] [address] [place] [[id number] (CPT )] 07/14/2025 1:00 PM EDT Office Visit [facility] [address] [place] [address] Oscar Rodriguez MD [address], [address] [place] [address] 09/26/2025 12:20 PM EST Appointment [facility] [address] [place] [address] 09/26/2025 1:00 PM EST Office Visit [facility] [address] [place] [address] June Preston MD [address] [facility] Medical Office Bldg, [address] [place], [place] [address] documented as of this encounter Procedures Procedure [...] documented as of this encounter Care Teams Cylinder Checker Relationship Specialty Start Date End Date Generic Provider, No Assigned Pcp, [place] [address] PCP - General Operating System Programmer 08/08/24 11/10/24 Conchita Aden MD [address] [place] [address] [place] [address] PCP - General Family Medicine 11/11/24 Diane Min RN Care Seismology Technical Officer 09/05/24 12/06/24 June Preston MD [address] [facility] Medical Office Bldg, [address] [place] [address] Chemical Laboratory Technician Electrophysiology 09/13/24 Diane Min, control systems designerSeismology Technical Officer 01/16/25 01/31/25 documented as of this encounter
--- OUTSIDE RECORDS SUMMARY | 2025-04-10 13:45 | XMS_ITS | Encounter Summary ---
Author Organization [facility] Address [address] [place] [address] Care Team Providers Care City Maintenance Manager Name Role Phone Conchita Aden MD Primary Care Provider [phone] Encounter Details Date Type Department Care Team (Late st Contact Info) Description 03/27/2025 External Result Encounter [facility] External Department Unsolicited Lorrie Winn MD [address] [facility] [address] [place] [address] Social History Tobacco Use Types Packs/Day Years [...] Moreno M.D. 03/27/2025 11:14 AM Dictation Location: [facility] Tech: Le Millan Transcribed By: PWS 03/27/25 1114 Dictated By: Gerber Moreno II, MD 03/27/25 1111 Signed By: <Electronically signed by Gerber Moreno II, MD in OV> 03/27/25 1114 Narrative 03/27/2025 11:16 AM EDT [facility] [address] Ultrasound Report Signed Patient: Latanya Martinez MR#: [id number] : 1960 Acct:[id number] Age/Sex: 64 / F ADM Date: 03/26/25 Loc: Room: [address] [place] [address] Type: ADM IN Attending Dr: Yonis Covington [...] Procedure Note Gerber Moreno MD - 03/27/2025 [facility] Main [place] [address] [place] [address] Ultrasound Report Signed Patient: Latanya Martinez AMR#: [id number] : [id number]:[id number] Age/Sex: 64 / FADM Date: 03/26/25 Loc: Room: [id number]: ADM IN Attending Dr: Yonis Covington DO [...] Moreno M.D. 03/27/2025 11:14 AM Dictation Location: [place] [address] Tech: Le Millan Transcribed By: [facility] 03/27/25 1114 Dictated By: Gerber Moreno II, MD 03/27/25 1111 Signed By: <Electronically signed by Gerber Moreno II, MD inOV> 03/27/25 1114 us Lorrie Winn MD IMG US PROCEDURES Final Result documented in this encounter Visit Diagnoses Not on filedocumented in this encounter Care Teams City Maintenance Manager Relationship Specialty Start Date End Date Conchita Aden MD PCP - General Family Medicine 11/07/24 documented as of this encounter
--- OUTSIDE RECORDS SUMMARY | 2025-04-10 13:45 | XMS_ITS | Encounter Summary ---
Author Organization [facility] Address [address] [place] [address] Care Team Providers Care Edgerman Name Role Phone Conchita Aden MD Primary Care Provider [phone] Encounter Details Date Type Department Care Team (Late st Contact Info) Description 03/26/2025 External Result Encounter [facility] External Department Unsolicited Lorrie Winn MD [address] [facility] [address] [place] [address] Social History Tobacco Use Types Packs/Day Years [...] 0.0 - 38.1 03/29/2025 3:36 AM EDT [facility] Comment: [facility] Electrochemiluminescence Immunoassay (ECLIA) Values obtained with different assay methods or kits cannot be used interchangeably. Results cannot be interpreted as absolute evidence of the presence or absence of malignant disease. Performed at: [address] [id number] Construction Rigger: Jose Damon PhD, Phone: [phone] Other Topography unknown / Unknown 03/26/2025 5:52 PM EDT 03/26/2025 6:10 PM EDT us Lorrie Winn MD LAB BLOOD ORDERABLES Final Res ult [facility] [address] [place] [address], documented in this encounter Visit Diagnoses Not on filedocumented in this encounter Care Teams Edgerman Relationship Specialty Start Date End Date Conchita Aden MD PCP - General Family Medicine 11/07/24 documented as of this encounter
--- OUTSIDE RECORDS SUMMARY | 2025-04-10 13:45 | XMS_ITS | Clinical Summary ---
Author Organization [facility] Address [address] [place] [address] Phone Care Team Providers Care Wet Trimmer Name Role Phone June Preston MD Unavailable Conchita Aden MD Primary Care Provider [phone] Allergies No known active allergies Medications lansoprazole [...] aspirin 81 mg EC tabletIndications:A therosclerosis of [place] coronary artery of [place] heart without angina pectoris Take 1 tablet (81 mg) by mouth 2 times a week. 5 11/14/19 Active rosuvastatin (Crestor) 20 mg tabletIndications:A therosclerosis of [place] coronary artery of [place] heart without angina pectoris,Mixed hyperlipidemia Take 1 tablet (20 mg) by mouth once daily. 90 tablet 3 5 11/11/19 Active spironolactone (Aldactone) 25 mg tabletIndications:E ssential hypertension Take 1 tablet (25 mg) by mouth once daily. 90 tablet 3 5 11/15/19 Active Invokana 300 mgIndications:Type 2 diabetes mellitus without complication, without long-term current use of insulin,Atheroscler osis of [place] coronary artery of [place] heart without angina pectoris,Chronic systolic CHF (congestive heart failure) Take 1 tablet (300 mg) by mouth once daily in the morning. Take before meals. 90 tablet 3 5 11/21/19 Active ranolazine (Ranexa) 500 mg 12 hr tabletIndications:A therosclerosis of [place] coronary artery of [place] heart without angina pectoris Take 1 tablet [...] i) 09/30/2023 Moderate persistent asthma without complication ([facility]) 09/30/2023 Oral thrush 09/30/2023 Oropharyngeal dysphagia 09/30/2023 Polyneuropathy due to type 2 diabetes mellitus ( Multi) 09/30/2023 Stable angina pectoris due t o arteriosclerosis of coronary artery 09/30/2023 Urge incontinence of urine 09/30/2023 Atherosclerosis of [place] co ronary artery of [place] heart without angina pectoris 07/29/2023 Chronic obstructive [...] bowel function Postoperative pain 05/23/2015 Overview (09/30/2023): PROGRAM DIR pump and will transition to oral medication [...] - 04/03/2025 11:59 PM EDT Hospital Encounter [facility] (formerly [facility]3] [address] [place] [address] Ventricular tachycardia (CMS/HCC); Abnormal result of cardiovascular function study, unspecified Discharge Disposition: Home 04/03/2025 Travel 03/09/2025 9:35 AM EDT - 03/09/2025 11:59 PM EDT Hospital Encounter [facility] [address] [place] [address] ICD (implantable cardioverter-defibril lator) in place; Paroxysmal ventricular tachycardia Discharge Disposition: Home 02/21/2025 Orders Only [facility] [address] [place] [address] Kervin Deshpande MD Chronic systolic CHF (congestive heart failure) (Primary Dx) 02/10/2025 Scanned Document [facility] [address] [place] [address] Scanning, Generic Provider 02/07/2025 11:30 AM EDT Office Visit [facility] [address] [place] [address] Kervin Deshpande MD Ventricular tachycardia (Multi); ICD (implantable cardioverter-defibril lator) in place 02/07/2025 Travel 01/24/2025 Refill [facility] [address] [place] [address] Dia Lao, COMPOSITE BOND TECHNICIAN ICD (implantable cardioverter-defibril lator) discharge; Paroxysmal ventricular tachycardia (Multi) 01/19/2025 Telephone [facility] [address] [place] [address] Kervin Deshpande MD 01/16/2025 Patient Outreach [facility] [address] [place] [address] Diane Min, RN 01/12/2025 Telephone [facility] [address] [place] [address] Kervin Deshpande MD 01/09/2025 7:20 AM EDT - 01/09/2025 11:59 PM EDT Hospital Encounter [facility] [address] [place] [address] Ventricular tachycardia (Multi) Discharge Disposition: Home 01/08/2025 7:01 PM EDT - 01/14/2025 12:51 PM EDT Hospital Encounter [facility] 8 Cardiac Intensive Care [address] [place] [facility] [place] [address] Otis Chappell, Yonis Manuel MD Sehgal, MD Halie Fields Tahereh, MD Kaniecki, Dani Romero, MANAGER STORAGE-VALET ATTENDANT, DNP ICD (implantable cardioverter-defibril lator) discharge (Primary Dx); Paroxysmal ventricular tachycardia (Multi); Ventricular tachycardia (CMS/HCC); ICD (implantable cardioverter-defibril lator) in place; VT (ventricular tachycardia) (Multi) Discharge Disposition: Home Health Care - New 01/08/2025 Travel from Last 3 Months Immunizations Immunization Administration [...] from your doctor or pharmacy? Never 01/08/2025 [facility] Utilities Answer Date Recorded In the past 12 months has e Level Chef, oil, or water [employer] threatened to shut off services in your [...] week 01/08/2025 How often do you attend rastafari or hindu serv ices? Patient declined 01/08/2025 Do you belong to any clubs o r organizations such as rastafari groups, unions, fraternal or athletic groups, or [...] Recorded Patient Health Questionnaire-2 Score 0 01/08/2025 [facility] - [...] any time in the past 12 m ont, were you homeless or living in a [...] Description 04/14/2025 9:30 AM EDT Hospital Encounter [facility] ([facility]3] [place] [place] [address] Kervin Deshpande MD [address] [place] [address] Ventricular tachycardia (Multi) 04/14/2025 11:00 AM EDT - 04/14/2025 3:00 PM EDT Surgery [facility]3] [address] [facility] [address] [place] [id number] Kervin Deshpande MD [address] [place] [address] [place] [[address] (CPT )] 07/14/2025 1:00 PM EDT Office Visit [facility] [address] [facility] [address] [place] [address] Oscar Rodriguez [facility] [address] [facility] [place] [address] 09/26/2025 12:20 PM EST Appointment [facility] [address] [place] [address] 09/26/2025 1:00 PM EST Office Visit [facility] [address] [facility] [address] [place] [address] June Preston MD [address] [facility] Office [address] [place] [address] Health Maintenance Due Date Last Done Comments [...] 04/16/2020, 12/08/2016, 11/09/2006 COVID-19 Vaccine (3 - 2023- season) 2024 06/21/2021, 02/19/2021 Diabetes: Hemoglobin A1C 04/10/2025 01/08/2025, 020 05/2022 Influenza Vaccine (Season Ended) 2025 06/21/2021, 01/22/2021, 08/02/2019, Additional history exists TSH Level 01/08/2026 01/08/2025, 01/31, 07/24/2023 Echocardiogram 01/09/2026 01/09/2025, 0 07/2024, 07/22/2023, Additional history exists Creatinine Level [...] this topic Medical Devices Implanted Type Area Compugraph Operator Device Identifier Shelf Expiration Date Model / [...] OXIMETRY, CONTINUOUS Routine 01/08/2025 7:04 PM EDT from Last 3 Months Results * CT [...] Anand Baugh 04/04/2025 1:16 AM Dictation workstation: [id number] Narrative 04/04/2025 1:16 AM EDT Interpreted By: Anand Baugh and Okyere Robert STUDY: CT HEART STRUCTURE MORPHOLOGY W IV CONTRAST; 04/03/2025 1:36 pm INDICATION: Signs/Symptoms:For Ventricular Tachycardia ablation planning; late iodine enhancement CT scan; inHeart protocol; must be done at [facility]. COMPARISON: None. ACCESSION NUMBER(S): [id number] ORDERING CLINICIAN: KERVIN DESHPANDE TECHNIQUE: Using multi-detector [...] about 25-50% luminal stenosis which fills via [id number] collaterals. CARDIAC CHAMBERS: The cardiac chambers demonstrate [...] scan; inHeart protocol; must be done at [facility]. COMPARISON: None. ACCESSION NUMBER(S): [id number] ORDERING CLINICIAN: KERVIN DESHPANDE TECHNIQUE: Using multi-detector [...] about 25-50% luminal stenosis which fills via [id number] collaterals. CARDIAC CHAMBERS: The cardiac chambers demonstrate [...] Anand Baugh 04/04/2025 1:16 AM Dictation workstation: [id number] Kervin Deshpande MD Jeanne CT PROCEDURES Final Result * CARDIAC DEVICE CHECK - REMOTE - ICD (03/09/2025 9:38 AM EDT) Only the most recent of2 resultswithin the time period is included. Anatomical Region Laterality Modality Monitor/Device 03/09/2025 6:00 AM EDT us June Preston MD CV IMPLANTABLE CARDIAC DEVICE MN OCEDURES Final Result * Nuclear Stress Test [...] POCT GLUCOSE (01/14/2025 10:38 AM EDT) Pathologist [facility] POCT Glucose 90 74 - 99 mg/dL 01/14/2025 10:40 AM EDT [facility] Blood Capillary blood specimen / Unknown 01/14/2025 10:38 AM EDT 01/14/2025 10:40 AM EDT us Gayle Max MD LAB POINT OF CAR E TEST DOCKED DEVICE UNSOLICITED RESULTS Final Result Performing Organization Address City/[facility]/ZIP Co de Phone Number [facility] [address] [place] [address] * (ABNORMAL) POCT GLUCOSE (01/14/2025 6:29 AM EDT) POCT Glucose 100(H) 74 - 99 mg/dL 01/14/2025 6:31 AM EDT [facility] Blood Capillary blood specimen / Unknown 01/14/2025 6:29 AM EDT 01/14/2025 6:31 AM EDT Gayle Max MD LAB POINT OF CAR E TEST DOCKED DEVICE UNSOLICITED RESULTS Final Result Performing Organization Address City/[facility]/ZIP Co de Phone Number [facility] [address] [place] [address] * Phosphorus (01/14/2025 5:22 AM EDT) Only the most recent of7 resultswithin the time period is included. [facility] Phosphorus 3.1 2.5 - 4.9 mg/dL LAB CHEMISTRY METHOD 01/14/2025 6:34 AM EDT [facility] Comment:The performance selena acteristics of phosphorus [...] Michelle MD LAB BLOOD ORDERABLES Final Result [facility] [address] [place] [address] * (ABNORMAL) Magnesium (01/14/2025 5:22 AM EDT) Only the most recent of7 resultswithin the time period is included. Magnesium 1.55(L) 1.60 - 2.40 mg/dL LAB CHEMISTRY METHOD 01/14/2025 6:34 AM EDT [facility] Blood Venous blood specimen / Unknown Venipuncture / Unknown 01/14/2025 5:22 AM EDT 01/14/2025 6:09 AM EDT us Srinivasa Michelle MD LAB BLOOD ORDERABLES Final Result [facility] [address] [place] [address] * (ABNORMAL) POCT GLUCOSE (01/13/2025 9:33 PM EDT) POCT Glucose 114(H) 74 - 99 mg/dL 01/13/2025 9:35 PM EDT [facility] Blood Capillary blood specimen / Unknown 01/13/2025 9:33 PM EDT 01/13/2025 9:35 PM EDT us Gayle Max MD LAB POINT OF CAR E TEST DOCKED DEVICE UNSOLICITED RESULTS Final Result [facility] [address] [place] [address] * POCT GLUCOSE (01/13/2025 4:22 PM EDT) POCT Glucose 90 74 - 99 mg/dL 01/13/2025 4:23 PM EDT [facility] Blood Capillary blood specimen / Unknown 01/13/2025 4:22 PM EDT 01/13/2025 4:23 PM EDT us Gayle Max MD LAB POINT OF CAR E TEST DOCKED DEVICE UNSOLICITED RESULTS Final Result Performing Organization Address City/[facility]/ZIP Co de Phone Number [facility] [address] [place] [address] * (ABNORMAL) POCT GLUCOSE (01/13/2025 11:05 AM EDT) POCT Glucose 106(H) 74 - 99 mg/dL 01/13/2025 11:07 AM EDT [facility] Blood Capillary blood specimen / Unknown 01/13/2025 11:05 AM EDT 01/13/2025 11:07 AM EDT Gayle Max MD LAB POINT OF CAR E TEST DOCKED DEVICE UNSOLICITED RESULTS Final Result Performing Organization Address City/[facility]/ZIP Co de Phone Number [facility] [address] [place] [address] * POCT GLUCOSE (01/13/2025 7:26 AM EDT) POCT Glucose 82 74 - 99 mg/dL 01/13/2025 7:27 AM EDT [facility] Blood Capillary blood specimen / Unknown 01/13/2025 7:26 AM EDT 01/13/2025 7:27 AM EDT Gayle Max MD LAB POINT OF CAR E TEST DOCKED DEVICE UNSOLICITED RESULTS Final Result Performing Organization Address [facility] Co de Phone Number [facility] [address] [place] [address] * (ABNORMAL) Basic Metabolic Panel (01/13/2025 5:23 AM EDT) Only the most recent of3 resultswithin the time period is included. Glucose 80 74 - 99 mg/dL LAB CHEMISTRY METHOD 01/13/2025 6:28 AM EDT [facility] Sodium 132(L) 136 - 145 mmol/L LAB CHEMISTRY METHOD 01/13/2025 6:28 AM EDT [facility] Potassium 3.6 3.5 - 5.3 mmol/L LAB CHEMISTRY METHOD 01/13/2025 6:28 AM EDT [facility] Chloride 99 98 - 107 mmol/L LAB CHEMISTRY METHOD 01/13/2025 6:28 AM EDT [facility] Bicarbonate 27 21 - 32 mmol/L LAB CHEMISTRY METHOD 01/13/2025 6:28 AM EDT [facility] Anion Gap 10 10 - 20 mmol/L LAB CHEMISTRY METHOD 01/13/2025 6:28 AM EDT [facility] Urea Nitrogen 7 6 - 23 mg/dL LAB CHEMISTRY METHOD 01/13/2025 6:28 AM EDT [facility] Creatinine 0.44(L) 0.50 - 1.05 mg/dL LAB CHEMISTRY METHOD 01/13/2025 6:28 AM EDT [facility] eGFR >90 >60 mL/min/1. 73m*2 LAB CHEMISTRY METHOD 01/13/2025 6:28 AM EDT [facility] Comment: Calculations of estimated GFR are performed using the 2020 CKD-EPI Study Refit equation without the race variable for the IDMS-Traceable creatinine methods. https://jasn.asnjournals.org/content/early//ASN.9490102949 Calcium 8.2(L) 8.6 - 10.3 mg/dL LAB CHEMISTRY METHOD 01/13/2025 6:28 AM EDT [facility] Blood Venous blood specimen / Unknown Venipuncture / Unknown 01/13/2025 5:23 AM EDT 01/13/2025 5:54 AM EDT us Gayle Max MD LAB BLOOD ORDERABLES Fin al Result [facility] [address] [place] [address] * Lavender Top (01/13/2025 5:19 AM EDT) Extra Tube Hold for add-ons. 01/13/2025 7:01 AM EDT [facility] Comment:Auto resulted. Blood Venous blood specimen / Unknown 01/13/2025 5:19 AM EDT 01/13/2025 5:56 AM EDT Gayle Max MD LAB BLOOD ORDERABLES Fin al Result [facility] [address] [place] [address] * POCT GLUCOSE (01/13/2025 12:27 AM EDT) POCT Glucose 89 74 - 99 mg/dL 01/13/2025 12:29 AM EDT [facility] Blood Capillary blood specimen / Unknown 01/13/2025 12:27 AM EDT 01/13/2025 12:29 AM EDT us Gayle Max MD LAB POINT OF CAR E TEST DOCKED DEVICE UNSOLICITED RESULTS Final Result [facility] [address] [place] [address] * (ABNORMAL) POCT GLUCOSE (01/12/2025 7:39 PM EDT) POCT Glucose 157(H) 74 - 99 mg/dL 01/12/2025 7:41 PM EDT [facility] Blood Capillary blood specimen / Unknown 01/12/2025 7:39 PM EDT 01/12/2025 7:41 PM EDT us Gayle Max MD LAB POINT OF CAR E TEST DOCKED DEVICE UNSOLICITED RESULTS Final Result [facility] [address] [place] [address] * POCT GLUCOSE (01/12/2025 4:08 PM EDT) POCT Glucose 92 74 - 99 mg/dL 01/12/2025 4:10 PM EDT [facility] Blood Capillary blood specimen / Unknown 01/12/2025 4:08 PM EDT 01/12/2025 4:10 PM EDT us Gayle Max MD LAB POINT OF CAR E TEST DOCKED DEVICE UNSOLICITED RESULTS Final Result Performing Organization Address [facility]/ZIP Co de Phone Number [facility] [address] [place] [address] * POCT GLUCOSE (01/12/2025 11:02 AM EDT) POCT Glucose 93 74 - 99 mg/dL 01/12/2025 11:04 AM EDT [facility] Blood Capillary blood specimen / Unknown 01/12/2025 11:02 AM EDT 01/12/2025 11:04 AM EDT us Gayle Max MD LAB POINT OF CAR E TEST DOCKED DEVICE UNSOLICITED RESULTS Final Result Performing Organization Address [facility] Co de Phone Number [facility] [address] [place] [address] * (ABNORMAL) POCT GLUCOSE (01/12/2025 7:02 AM EDT) POCT Glucose 113(H) 74 - 99 mg/dL 01/12/2025 7:03 AM EDT [facility] Blood Capillary blood specimen / Unknown 01/12/2025 7:02 AM EDT 01/12/2025 7:03 AM EDT us Gayle Max MD LAB POINT OF CAR E TEST DOCKED DEVICE UNSOLICITED RESULTS Final Result Performing Organization Address City/[facility]/ZIP Co de Phone Number [facility] [address] [place] [address] * POCT GLUCOSE (01/12/2025 6:39 AM EDT) POCT Glucose 77 74 - 99 mg/dL 01/12/2025 6:40 AM EDT [facility] Blood Capillary blood specimen / Unknown 01/12/2025 6:39 AM EDT 01/12/2025 6:40 AM EDT us Gayle Max MD LAB POINT OF CAR E TEST DOCKED DEVICE UNSOLICITED RESULTS Final Result [facility] [address] [place], [place] [id number] * (ABNORMAL) CBC (01/12/2025 5:19 AM EDT) Only the most recent of4 resultswithin the time period is included. WBC 7.6 4.4 - 11.3 x10*3/uL LAB HEMATOLOGY METHOD 01/12/2025 6:13 AM EDT [facility] nRBC 0.0 0.0 - 0.0 /100 WBCs LAB HEMATOLOGY METHOD 01/12/2025 6:13 AM EDT [facility] RBC 3.54(L) 4.00 - 5.20 x10*6/uL LAB HEMATOLOGY METHOD 01/12/2025 6:13 AM EDT [facility] Hemoglobin 8.7(L) 12.0 - 16.0 g/dL LAB HEMATOLOGY METHOD 01/12/2025 6:13 AM EDT [facility] Hematocrit 26.1(L) 36.0 - 46.0 % LAB HEMATOLOGY METHOD 01/12/2025 6:13 AM EDT [facility] MCV 74(L) 80 - 100 fL LAB HEMATOLOGY METHOD 01/12/2025 6:13 AM EDT [facility] MCH 24.6(L) 26.0 - 34.0 pg LAB HEMATOLOGY METHOD 01/12/2025 6:13 AM EDT [facility] MCHC 33.3 32.0 - 36.0 g/dL LAB HEMATOLOGY METHOD 01/12/2025 6:13 AM [facility] RDW 17.1(H) 11.5 - 14.5 % LAB HEMATOLOGY METHOD 01/12/2025 6:13 AM [facility] Platelets 244 150 - 450 x10*3/uL LAB HEMATOLOGY METHOD 01/12/2025 6:13 AM [facility] Blood Venous blood specimen / Unknown Venipuncture / Unknown 01/12/2025 5:19 AM EDT 01/12/2025 6:06 AM EDT us Gayle Max MD LAB BLOOD ORDERABLES Fin al Result Performing Organization Address [facility]/ZIP Co de Phone Number [facility] [address] [place] [address] * POCT GLUCOSE (01/11/2025 8:48 PM EDT) POCT Glucose 98 74 - 99 mg/dL 01/11/2025 8:50 PM EDT [facility] Blood Capillary blood specimen / Unknown 01/11/2025 8:48 PM EDT 01/11/2025 8:50 PM EDT us Gayle Max MD LAB POINT OF CAR E TEST DOCKED DEVICE UNSOLICITED RESULTS Final Result Performing Organization Address City/[facility]/ZIP Co de Phone Number [facility] [address] [place] [address] * POCT GLUCOSE (01/11/2025 4:05 PM EDT) POCT Glucose 89 74 - 99 mg/dL 01/11/2025 4:07 PM EDT [facility] Blood Capillary blood specimen / Unknown 01/11/2025 4:05 PM EDT 01/11/2025 4:07 PM EDT us Gayle aMx MD LAB POINT OF CAR E TEST DOCKED DEVICE UNSOLICITED RESULTS Final Result Performing Organization Address City/[facility]/ZIP Co de Phone Number [facility] [address] [place] [address] * POCT GLUCOSE (01/11/2025 11:04 AM EDT) POCT Glucose 91 74 - 99 mg/dL 01/11/2025 11:06 AM EDT [facility] Blood Capillary blood specimen / Unknown 01/11/2025 11:04 AM EDT 01/11/2025 11:06 AM EDT us Gayle Max MD LAB POINT OF CAR E TEST DOCKED DEVICE UNSOLICITED RESULTS Final Result [facility] [address] [place] [address] * Stool Pathogen Panel, PCR (01/11/2025 10:31 AM EDT) Campylobacter Group Not Detected Not Detected 01/12/2025 7:00 AM EDT [facility] Salmonella species Not Detected Not Detected 01/12/2025 7:00 AM EDT [facility] Shigella species Not Detected Not Detected 01/12/2025 7:00 AM EDT [facility] Vibrio Group Not Detected Not Detected 01/12/2025 7:00 AM EDT [facility] Yersinia Enterocolitica Not Detected Not Detected 01/12/2025 7:00 AM EDT [facility] Shiga Toxin 1 Not Detected Not Detected 01/12/2025 7:00 AM EDT [facility] Shiga Toxin 2 Not Detected Not Detected 01/12/2025 7:00 AM EDT [facility] Norovirus GI/GII Not Detected Not Detected 01/12/2025 7:00 AM EDT [facility] Rotavirus A Not Detected Not Detected 01/12/2025 7:00 AM EDT [facility] Stool Stool / Unknown 01/11/2025 1 0:31 AM EDT 01/11/2025 10:38 AM EDT us Gayle Max MD LAB MICROBIOLOGY - GENER AL ORDERABLES Final Result [facility] [address] [facility] [id number] [place] [address] * (ABNORMAL) POCT GLUCOSE (01/11/2025 6:32 AM EDT) POCT Glucose 123(H) 74 - 99 mg/dL 01/11/2025 6:33 AM EDT [facility] Blood Capillary blood specimen / Unknown 01/11/2025 6:32 AM EDT 01/11/2025 6:33 AM EDT us Gayle Max MD LAB POINT OF CAR E TEST DOCKED DEVICE UNSOLICITED RESULTS Final Result [facility] [address] [place] [address] * (ABNORMAL) POCT GLUCOSE (01/10/2025 11:36 PM EDT) POCT Glucose 115(H) 74 - 99 mg/dL 01/10/2025 11:38 PM EDT [facility] Blood Capillary blood specimen / Unknown 01/10/2025 11:36 PM EDT 01/10/2025 11:38 PM EDT us Gayle Max MD LAB POINT OF CAR E TEST DOCKED DEVICE UNSOLICITED RESULTS Final Result [facility] [address] [place] [address] * (ABNORMAL) POCT GLUCOSE (01/10/2025 7:46 PM EDT) POCT Glucose 108(H) 74 - 99 mg/dL 01/10/2025 7:48 PM EDT [facility] Blood Capillary blood specimen / Unknown 01/10/2025 7:46 PM EDT 01/10/2025 7:48 PM EDT us Gayle Max MD LAB POINT OF CAR E TEST DOCKED DEVICE UNSOLICITED RESULTS Final Result [facility] [address] [place] [address] * (ABNORMAL) POCT GLUCOSE (01/10/2025 2:44 PM EDT) POCT Glucose 108(H) 74 - 99 mg/dL 01/10/2025 2:46 PM EDT [facility] Blood Capillary blood specimen / Unknown 01/10/2025 2:44 PM EDT 01/10/2025 2:46 PM EDT us Gayle Max MD LAB POINT OF CAR E TEST DOCKED DEVICE UNSOLICITED RESULTS Final Result Performing Organization Address [facility]/ZIP Co de Phone Number [facility] [address] [place] [address] * Heparin Assay (01/10/2025 11:56 AM EDT) Only the most recent of5 resultswithin the time period is included. [facility] Heparin Unfractionated 0.3 See Comment Below for Therapeutic Ranges IU/mL LAB COAGULATION METHOD 01/10/2025 12:14 PM EDT [facility] Blood Venous blood specimen / Unknown Venipuncture / Unknown 01/10/2025 11:56 AM EDT 01/10/2025 11:59 AM EDT Narrative [facility] - 01/10/2025 12:14 PM EDT The therapeutic reference range for UFH may be either 0.3-0.6 IU/mL or 0.3-0.7 IU/mL based on the clinical setting for anticoagulant therapy and the associated nomogram used. For Heparin dosing guidelines based on clinical scenario and Heparin Assay results, please refer to local Pharmacy and the [place] [facility] Therapy available on the [facility] intranet at: [email or web address] us Gayle Max MD LAB BLOOD ORDERABLES Fin al Result Performing Organization Address City/[facility]/ZIP Co de Phone Number [facility] [address] [place], [place] [id number] * POCT GLUCOSE (01/10/2025 10:54 AM EDT) POCT Glucose 79 74 - 99 mg/dL 01/10/2025 10:56 AM EDT [facility] Blood Capillary blood specimen / Unknown 01/10/2025 10:54 AM EDT 01/10/2025 10:56 AM EDT us Gayle Max MD LAB POINT OF CAR E TEST DOCKED DEVICE UNSOLICITED RESULTS Final Result [facility] [address] [place] [address] * POCT GLUCOSE (01/10/2025 6:48 AM EDT) POCT Glucose 94 74 - 99 mg/dL 01/10/2025 6:49 AM EDT [facility] Blood Capillary blood specimen / Unknown 01/10/2025 6:48 AM EDT 01/10/2025 6:49 AM EDT us Gayle Max MD LAB POINT OF CAR E TEST DOCKED DEVICE UNSOLICITED RESULTS Final Result Performing Organization Address City/[facility]/ZIP Co de Phone Number [facility] [address] [place] [address] * (ABNORMAL) Comprehensive Metabolic Panel (01/10/2025 5:21 AM EDT) Only the most recent of3 resultswithin the time period is included. Glucose 84 74 - 99 mg/dL LAB CHEMISTRY METHOD 01/10/2025 6:46 AM EDT [facility] Sodium 128(L) 136 - 145 mmol/L LAB CHEMISTRY METHOD 01/10/2025 6:46 AM EDT [facility] Potassium 3.6 3.5 - 5.3 mmol/L LAB CHEMISTRY METHOD 01/10/2025 6:46 AM EDT [facility] Chloride 95(L) 98 - 107 mmol/L LAB CHEMISTRY METHOD 01/10/2025 6:46 AM [facility] Bicarbonate 23 21 - 32 mmol/L LAB CHEMISTRY METHOD 01/10/2025 6:46 AM [facility] Anion Gap 14 10 - 20 mmol/L LAB CHEMISTRY METHOD 01/10/2025 6:46 AM [facility] Urea Nitrogen 11 6 - 23 mg/dL LAB CHEMISTRY METHOD 01/10/2025 6:46 AM [facility] Creatinine 0.61 0.50 - 1.05 mg/dL LAB CHEMISTRY METHOD 01/10/2025 6:46 AM [facility] eGFR >90 >60 mL/min/1. 73m*2 LAB CHEMISTRY METHOD 01/10/2025 6:46 AM [facility] Comment: Calculations of estimated GFR are performed using the 2020 CKD-EPI Study Refit equation without the race variable for the IDMS-Traceable creatinine methods. https://jasn.asnjournals.org/content///ASN.5897258803 Calcium 8.0(L) 8.6 - 10.3 mg/dL LAB CHEMISTRY METHOD 01/10/2025 6:46 AM [facility] Albumin 2.9(L) 3.4 - 5.0 g/dL LAB CHEMISTRY METHOD 01/10/2025 6:46 AM [facility] Alkaline Phosphatase 35 33 - 136 U/L LAB CHEMISTRY METHOD 01/10/2025 6:46 AM [facility] Total Protein 5.7(L) 6.4 - 8.2 g/dL LAB CHEMISTRY METHOD 01/10/2025 6:46 AM [facility] AST 37 9 - 39 U/L LAB CHEMISTRY METHOD 01/10/2025 6:46 AM [facility] Bilirubin, Total 0.2 0.0 - 1.2 mg/dL LAB CHEMISTRY METHOD 01/10/2025 6:46 AM [facility] ALT 23 7 - 45 U/L LAB CHEMISTRY METHOD 01/10/2025 6:46 AM [facility] Comment:Patients treated wit h Sulfasalazine may generate falsely decreased results for ALT. Blood Venous blood specimen / Unknown Venipuncture / Unknown 01/10/2025 5:21 AM EDT 01/10/2025 6:09 AM EDT us Srinivasa Michelle MD LAB BLOOD ORDERABLES Final Result [facility] [address] [place] [address] * POCT GLUCOSE (01/10/2025 5:08 AM EDT) POCT Glucose 93 74 - 99 mg/dL 01/10/2025 5:11 AM EDT [facility] Blood Capillary blood specimen / Unknown 01/10/2025 5:08 AM EDT 01/10/2025 5:11 AM EDT us Gayle Max MD LAB POINT OF CAR E TEST DOCKED DEVICE UNSOLICITED RESULTS Final Result Performing Organization Address City/[facility]/ZIP Co de Phone Number [facility] [address] [place] [id number] * (ABNORMAL) POCT GLUCOSE (01/10/2025 12:39 AM EDT) POCT Glucose 104(H) 74 - 99 mg/dL 01/10/2025 12:42 AM EDT [facility] Blood Capillary blood specimen / Unknown 01/10/2025 12:39 AM EDT 01/10/2025 12:42 AM EDT us Gayle Max MD LAB POINT OF CAR E TEST DOCKED DEVICE UNSOLICITED RESULTS Final Result Performing Organization Address City/[facility]/ZIP Co de Phone Number [facility] [address] [place] [address] * POCT GLUCOSE (01/09/2025 9:17 PM EDT) POCT Glucose 91 74 - 99 mg/dL 01/09/2025 9:38 PM EDT [facility] Blood Capillary blood specimen / Unknown 01/09/2025 9:17 PM EDT 01/09/2025 9:38 PM EDT us Gayle Max MD LAB POINT OF CAR E TEST DOCKED DEVICE UNSOLICITED RESULTS Final Result Performing Organization Address City/[facility]/ZIP Co de Phone Number [facility] [address] [place] [address] * POCT GLUCOSE (01/09/2025 6:56 PM EDT) [facility] Signature POCT Glucose 81 74 - 99 mg/dL 01/09/2025 6:58 PM EDT [facility] Blood Capillary blood specimen / Unknown 01/09/2025 6:56 PM EDT 01/09/2025 6:58 PM EDT us Michelle Snowden MD LAB POINT OF CARE TEST DOCKED DEVICE UNSOLICITED RESULTS Final Result Performing Organization Address [facility]/ZIP Co de Phone Number [facility] [address] [place] [address] * (ABNORMAL) POCT GLUCOSE (01/09/2025 3:33 PM EDT) [facility] POCT Glucose 104(H) 74 - 99 mg/dL 01/09/2025 3:35 PM EDT [facility] Blood Capillary blood specimen / Unknown 01/09/2025 3:33 PM EDT 01/09/2025 3:35 PM EDT us Michelle Snowden MD LAB POINT OF CARE TEST DOCKED DEVICE UNSOLICITED RESULTS Final Result Performing Organization Address [facility]/ZIP Co de Phone Number [facility] [address] [place] [address] * TRANSTHORACIC ECHO (TTE) COMPLETE WITH CONTRAST [...] Narrative SYNGO - 01/10/2025 8:51 AM EDT [place] [id number] TRANSTHORACIC ECHOCARDIOGRAM REPORT Patient Name: [facility] Physician: [id number] Augustus Issa DO Study Date: 01/09/2025 Ordering Provider: [id number] DANI DODGE MRN/PID: [id number] Fellow: Nurse: Date of /Age: 1 1960 / 64 years Steerer: Gege Balbuena [facility] Gender Assigned at F Additional Staff: : Height: 157.48 cm Admit Date: 01/08/2025 Weight: 67.59 kg Admission Status: Inpatient - Routine BSA / BMI: 1.69 m2 / 27.25 Department Location: [facility] kg/m2 Blood Pressure: 101 /55 mmHg Study Type: TRANSTHORACIC ECHO (TTE) COMPLETE Diagnosis/ICD: Ventricular tachycardia, other-I47.29 Indication: Multiple ICD firings CPT Codes: Echo Complete w Full [id number] Patient History: Pacer/Defib: AICD Pertinent History: HTN, [...] LA Area A2C: 19.2 cm2 LA Major Hensley A4C: 6.3 cm LA Major Hensley A2C: 5.7 cm LA Volume Index: 33.4 ml/m2 RIGHT ATRIUM: Normal Ranges: RA Vol A4C: 32.8 ml (8.3-19.5ml) RA Vol Index A4C: 19.4 ml/m2 RA Area A4C: 13.1 cm2 RA Major Hensley A4C: 4.4 cm LV SYSTOLIC FUNCTION: Normal [...] 1.0 m/s (0.6-0.9m/s) PV Max P.9 mmHg [id number] Augustus Issa DO Electronically signed on 01/10/2025 at 8:51:17 AM Wall Scoring Final Procedure Note Augustus Issa DO - 01/10/2025 [place] [id number] TRANSTHORACIC ECHOCARDIOGRAM REPORT Patient Name: [facility] Physician: Demario EricO Study Date: 01/09/2025 Ordering Provider: [id number] JAMES DODGE MRN/PID: [id number] Fellow: Nurse: Date of /Age: 1 1960 / 64 years Steerer: aYna MURPHY Gender Assigned at F Additional Staff: : Height: 157.48 cm Admit Date: 01/08/2025 Weight: 67.59 kg Admission Status: Inpatient- Routine BSA / BMI: 1.69 m2 / 27.25 Department Location: [facility] kg/m2 Blood Pressure: 101 /55 mmHg Study Type: TRANSTHORACIC ECHO (TTE) COMPLETE Diagnosis/ICD: Ventricular tachycardia, other-I47.29 Indication: Multiple ICD firings CPT Codes: Echo Complete w Full Doppler-[id number] Patient History: Pacer/Defib: AICD Pertinent History: HTN, [...] LA Area A2C: 19.2 cm2 LA Major Hensley A4C: 6.3 cm LA Major Hensley A2C: 5.7 cm LA Volume Index: 33.4 ml/m2 RIGHT ATRIUM: Normal Ranges: RA Vol A4C: 32.8 ml (8.3-19.5ml) RA Vol Index A4C: 19.4 ml/m2 RA Area A4C: 13.1 cm2 RA Major Hensley A4C: 4.4 cm LV SYSTOLIC FUNCTION: Normal [...] 1.0 m/s (0.6-0.9m/s) PV Max P.9 mmHg [id number] Augustus Maegan SALAZAR Electronically signed on 01/10/2025 at 8:51:17 AM Wall Scoring Final us Srinivasa Michelle MD CV ECHO PROCEDURES Final Re sult SYNGO * (ABNORMAL) POCT GLUCOSE (01/09/2025 10:48 AM EDT) POCT Glucose 102(H) 74 - 99 mg/dL 01/09/2025 10:50 AM EDT [facility] Blood Capillary blood specimen / Unknown 01/09/2025 10:48 AM EDT 01/09/2025 10:50 AM EDT us Yonis Fishman MD LAB POINT OF CAR E TEST DOCKED DEVICE UNSOLICITED RESULTS Final Result [facility] [address] [place] [address] * SST TOP (01/09/2025 9:55 AM EDT) Only the most recent of2 resultswithin the time period is included. Extra Tube Hold for add-ons. 01/09/2025 12:02 PM EDT [facility] Comment:Auto resulted. Blood Venous blood specimen / Unknown 01/09/2025 9:55 AM EDT 01/09/2025 10:31 AM EDT Yonis Fishman MD LAB BLOOD ORDERABLES Fin al Result [facility] [address] [place] [address] * MRSA Surveillance for Vancomycin De-escalation, PCR (01/09/2025 12:34 AM EDT) MRSA PCR Not Detected Not Detected X_PERT XPRESS SARS-COV2_ CEPHEID_EU A 01/09/2025 2:04 AM EDT [facility] Swab (Anterior Nares) Non-blood Collection / Unknown 01/09/2025 12:34 AM EDT 01/09/2025 12:41 AM EDT Narrative [facility] - 01/09/2025 2:04 AM EDT This [...] patients less than two years of age. Triny Sol PA-C LAB MICROBIOLOGY - GENERAL ORD ERABLES Final Result Performing Organization Address City/[facility]/ZIP Co de Phone Number [facility] [address] [place] [address] * Streptococcus pneumoniae Antigen, Urine (01/08/2025 11:59 PM EDT) Pathologist [facility] Streptococcus pneumoniae Ag, Urine Negative Negative 01/09/2025 11:55 AM EDT [facility] Urine Urine specimen / Unknown Non-blood Collection / Unknown 01/08/2025 11:59 PM EDT 01/09/2025 12:41 AM EDT Triny Ebenezer ZAVALETA-C LAB MICROBIOLOGY - GENERAL ORD ERABLES Final Result Performing Organization Address City/[facility]/ZIP Co de Phone Number [facility] [address] [place] [phone] * Legionella Antigen, Urine (01/08/2025 11:59 PM EDT) L. pneumophila Urine Ag Negative Negative 01/09/2025 11:55 AM EDT [facility] Urine Urine specimen / Unknown Non-blood Collection / Unknown 01/08/2025 11:59 PM EDT 01/09/2025 12:41 AM EDT Triny Ebenezer ZAVALETA-C LAB MICROBIOLOGY - GENERAL ORD ERABLES Final Result Performing Organization Address [facility] Co de Phone Number [facility] [address] [place] [address] * (ABNORMAL) Urinalysis with Reflex Microscopic (01/08/2025 11:59 PM EDT) Color, Urine Light-Yellow Light-Yellow , Yellow, Dark-Yellow 01/09/2025 1:17 AM EDT [facility] Appearance, Urine Clear Clear 01/09/2025 1:17 AM EDT [facility] Specific [place], Urine 1.009 1.005 - 1.035 01/09/2025 1:17 AM T [facility] pH, Urine 5.0 5.0, 5.5, 6.0, 6.5, 7.0, 7.5, 8.0 01/09/2025 1:17 AM T [facility] Protein, Urine NEGATIVE NEGATIVE, 10 (TRACE), 20 (TRACE) mg/dL 01/09/2025 1:17 AM T [facility] Glucose, Urine OVER (4+)(A) Normal mg/dL 01/09/2025 1:17 AM EDT [facility] Blood, Urine NEGATIVE NEGATIVE mg/dL 01/09/2025 1:17 AM EDT [facility] Ketones, Urine NEGATIVE NEGATIVE mg/dL 01/09/2025 1:17 AM EDT [facility] Bilirubin, Urine NEGATIVE NEGATIVE mg/dL 01/09/2025 1:17 AM EDT [facility] Urobilinogen, Urine Normal Normal mg/dL 01/09/2025 1:17 AM EDT [facility] Nitrite, Urine NEGATIVE NEGATIVE 01/09/2025 1:17 AM EDT [facility] Leukocyte Esterase, Urine NEGATIVE NEGATIVE 01/09/2025 1:17 AM EDT [facility] Urine Urine specimen / Unknown Non-blood Collection / Unknown 01/08/2025 11:59 PM EDT 01/09/2025 12:41 AM EDT Narrative [facility] - 01/09/2025 1:17 AM EDT OVER is reported when the result is greater than the clinically reportable range. Triny Sol PA-C LAB URINE ORDERABLES Final Res ult [facility] [address] [place] [address] * VERIFY ABO/Rh Group Test (01/08/2025 10:39 PM EDT) ABO TYPE A 01/08/2025 10:56 PM EDT [facility] Rh TYPE POS 01/08/2025 10:56 PM EDT [facility] Blood Venous blood specimen / Unknown Venipuncture / Unknown 01/08/2025 10:39 PM EDT 01/08/2025 10:43 PM EDT Otis Chappell DO LAB BLOOD BANK TEST ORDERAB LES Final Result Performing Organization Address [facility]/ZIP Co de Phone Number [facility] [address] [place] [address], * (ABNORMAL) POCT GLUCOSE (01/08/2025 10:38 PM EDT) POCT Glucose 106(H) 74 - 99 mg/dL 01/08/2025 10:39 PM EDT [facility] Blood Capillary blood specimen / Unknown 01/08/2025 10:38 PM EDT 01/08/2025 10:39 PM EDT Otis Chappell DO LAB POINT OF CARE T EST DOCKED DEVICE UNSOLICITED RESULTS Final Result [facility] [address] [place] [address] * (ABNORMAL) Procalcitonin (01/08/2025 9:34 PM EDT) Pathologist [facility] Procalcitonin 0.39(H) <=0.07 ng/mL LAB CHEMISTRY METHOD 01/09/2025 11:53 AM EDT [facility] Blood Venous blood specimen / Unknown Venipuncture / Unknown 01/08/2025 9:34 PM EDT 01/08/2025 9:38 PM EDT Narrative [facility] - 01/09/2025 11:53 AM EDT Procalcitonin [...] immunomodulatory medications has not been evaluated. Triny JOSEPHC LAB BLOOD ORDERABLES Final Res ult [facility] [address] [facility] [address] [place] [address] * RSV PCR (01/08/2025 9:33 PM EDT) Pathologist [facility] RSV PCR Not Detected Not Detected X_PERT XPRESS SARS-COV2_ CEPHEID_EU A 01/08/2025 11:23 PM EDT [facility] Swab Nasopharyngeal swab / Unknown Non-blood Collection / Unknown 01/08/2025 9:33 PM EDT 01/08/2025 10:43 PM EDT [facility] - 01/08/2025 11:23 PM EDT This assay is an FDA-cleared, in vitro diagnostic nucleic acid amplification test for the detection of RSV from nasopharyngeal specimens, and has been validated for use at [facility]. Negative results do not preclude RSV infections, and should not be used as the sole basis for diagnosis, treatment, or other management decisions. If Influenza A/B and RSV PCR results are negative, testing for Parainfluenza virus, Adenovirus and Metapneumovirus is routinely performed for pediatric oncology and intensive care inpatients at [facility], and is available on other patients by placing an add-on request. [facility] Ebenezer ZAVALETA-C LAB MOLECULAR DIAGNOSTICS ORDE RABLES Final Result Performing Organization Address City/[facility]/ZIP Co de Phone Number [facility] [address] [place], [place] [id number] * (ABNORMAL) Sars-CoV-2 and Influenza A/B PCR (01/08/2025 9:33 PM EDT) Pathologist [facility] Flu A Result Detected(A) Not Detected X_PERT XPRESS SARS-COV2 _CEPHEID_ EUA 01/08/2025 11:23 PM EDT [facility] Flu B Result Not Detected Not Detected X_PERT XPRESS SARS-COV2 _CEPHEID_ EUA 01/08/2025 11:23 PM EDT [facility] Coronavirus 2019, PCR Not Detected Not Detected X_PERT XPRESS SARS-COV2 _CEPHEID_ EUA 01/08/2025 11:23 PM EDT [facility] Swab Nasopharyngeal swab / Unknown Non-blood Collection / Unknown 01/08/2025 9:33 PM EDT 01/08/2025 10:43 PM EDT Narrative [facility] - 01/08/2025 11:23 PM EDT This assay is an FDA-cleared, in vitro diagnostic nucleic acid amplification test for the qualitative detection and differentiation of SARS CoV-2/ Influenza A/B from nasopharyngeal specimens collected from individuals with signs and symptoms of respiratory tract infections, and has been validated for use at [facility]. Negative results do not preclude COVID-19/ Influenza A/B infections and should not be used as the sole basis for diagnosis, treatment, or other management decisions. Testing for SARS CoV-2 is recommended only for patients who meet current clinical and/or epidemiological criteria defined by federal, state, or local public health directives. Triny Sol PA-C LAB MOLECULAR DIAGNOSTICS DANYEL GOMEZ Final Result [facility] [address] [place] [address] * Staphylococcus aureus/MRSA colonization, Culture (01/08/2025 9:33 PM EDT) [facility] Staph/MRSA Screen Culture No Staphylococcus aureus isolated 01/10/2025 11:36 AM EDT [facility] Swab (Anterior Nares) Non-blood Collection / Unknown 01/08/2025 9:33 PM EDT 01/08/2025 10:43 PM EDT Triny ZAVALETA-Luz LAB MICROBIOLOGY - GENERAL ORD ERABLES Final Result [facility] [address] [address] * Blood Culture (01/08/2025 8:47 PM EDT) Pathologist [facility] Blood Culture No growth at 4 days - FINAL REPORT AUTOMATED MICROBIAL DETECTION SYSTEM (VIRTUO) 01/13/2025 3:02 AM EDT [facility] Blood culture Venous blood specimen / Unknown Blood Culture / Unknown 01/08/2025 8:47 PM EDT 01/08/2025 8:51 PM EDT Triny Sol PA-C LAB MICROBIOLOGY - GENERAL ORD ERABLES Final Result [facility] [address] [place] [id number] * Lactate (01/08/2025 8:47 PM EDT) [facility] Lactate 1.0 0.4 - 2.0 mmol/L LAB CHEMISTRY METHOD 01/08/2025 9:11 PM EDT [facility] Blood Venous blood specimen / Unknown Venipuncture / Unknown 01/08/2025 8:47 PM EDT 01/08/2025 8:51 PM EDT Narrative [facility] - 01/08/2025 9:11 PM EDT Venipuncture immediately after or during the administration of Metamizole may lead to falsely low results. Testing should be performed immediately prior to Metamizole dosing. Triny Sol PA-C LAB BLOOD ORDERABLES Final Res ult [facility] [address] [place] [address] * (ABNORMAL) Troponin, High Sensitivity, 1 Hour (01/08/2025 8:46 PM EDT) Pathologist [facility] Troponin I, High Sensitivity 28(H) 0 - 13 ng/L LAB IMMUNOASSAY METHOD 01/08/2025 9:19 PM EDT [facility] Blood Venous blood specimen / Unknown Venipuncture / Unknown 01/08/2025 8:46 PM EDT 01/08/2025 8:51 PM EDT [facility] - 01/08/2025 9:19 PM EDT [...] performed using a different testing methodology at [facility] than at other [facility]. Direct result comparisons should only be made within the same method. Dani Dodge MANAGER STORAGE-VALET ATTENDANT, DNP LAB BLOOD ORDERAB LES Final Result [facility] [address] [place] [id number] * BB ORDER ONLY - Antibody Identification (01/08/2025 8:46 PM EDT) Antibody ID Anti-c and Inconclusive 01/11/2025 2:26 PM EDT [facility] CASE # 01/11/2025 2:26 PM EDT [facility] Blood Venous blood specimen / Unknown Venipuncture / Unknown 01/08/2025 8:46 PM EDT 01/08/2025 8:51 PM EDT Triny Sol PA-C LAB BLOOD BANK TEST ORDERABLES Final Result [facility] [address] [place] [address], * Type and screen (01/08/2025 8:46 PM EDT) ABO TYPE A 01/08/2025 9:38 PM EDT [facility] Rh TYPE POS 01/08/2025 9:38 PM EDT [facility] ANTIBODY SCREEN POS 9:38 PM EDT [facility] Blood Venous blood specimen / Unknown Venipuncture / Unknown 01/08/2025 8:46 PM EDT 01/08/2025 8:51 PM EDT us Triny Sol PA-C LAB BLOOD BANK TEST ORDERABLES Final Result [facility] [address] [place] [address], * XR chest 1 view (01/08/2025 8:06 PM EDT) Anatomical Region Laterality Modality Thoracic, Chest Computed Radiogr aphy 01/08/2025 8:19 PM EDT 01/08/2025 8:19 PM EDT Impressions 01/08/2025 8:17 PM EDT Right-sided airspace consolidation, as above. Clinical correlation and continued follow-up until clearing is recommended. MACRO: None. Signed by: Deion Bonilla 01/08/2025 8:17 PM Dictation workstation: [id number] Narrative 01/08/2025 8:17 PM EDT Interpreted By: Deion Bonilla, STUDY: XR CHEST 1 VIEW 01/08/2025 8:06 pm INDICATION: Signs/Symptoms:increased O2 COMPARISON: 09/01/2024 ACCESSION NUMBER(S): [id number] ORDERING CLINICIAN: TRINY SOL TECHNIQUE: A single [...] INDICATION: Signs/Symptoms:increased O2 COMPARISON: 09/01/2024 ACCESSION NUMBER(S): [id number] ORDERING CLINICIAN: TRINY SOL TECHNIQUE: A single [...] Deion Bonilla 01/08/2025 8:17 PM Dictation workstation: [id number] us Triny Sol PA-C IMG XR PROCEDURES Final Result * (ABNORMAL) CBC and Auto Differential (01/08/2025 7:21 PM EDT) WBC 17.1(H) 4.4 - 11.3 x10*3/uL LAB HEMATOLOGY METHOD 01/08/2025 7:28 PM EDT [facility] nRBC 0.1(H) 0.0 - 0.0 /100 WBCs LAB HEMATOLOGY METHOD 01/08/2025 7:28 PM EDT [facility] RBC 4.09 4.00 - 5.20 x10*6/uL LAB HEMATOLOGY METHOD 01/08/2025 7:28 PM EDT [facility] Hemoglobin 10.4(L) 12.0 - 16.0 g/dL LAB HEMATOLOGY METHOD 01/08/2025 7:28 PM EDT [facility] Hematocrit 30.7(L) 36.0 - 46.0 % LAB HEMATOLOGY METHOD 01/08/2025 7:28 PM EDT [facility] MCV 75(L) 80 - 100 fL LAB HEMATOLOGY METHOD 01/08/2025 7:28 PM EDT [facility] MCH 25.4(L) 26.0 - 34.0 pg LAB HEMATOLOGY METHOD 01/08/2025 7:28 PM [facility] MCHC 33.9 32.0 - 36.0 g/dL LAB HEMATOLOGY METHOD 01/08/2025 7:28 PM [facility] RDW 16.6(H) 11.5 - 14.5 % LAB HEMATOLOGY METHOD 01/08/2025 7:28 PM [facility] Platelets 218 150 - 450 x10*3/uL LAB HEMATOLOGY METHOD 01/08/2025 7:28 PM [facility] Neutrophils % 84.0 40.0 - 80.0 % LAB HEMATOLOGY METHOD 01/08/2025 7:28 PM [facility] Immature Granulocytes %, Automated 0.4 0.0 - 0.9 % LAB HEMATOLOGY METHOD 01/08/2025 7:28 PM [facility] Comment:Immature Granulocyte Count (IG) includes promyelocytes, myelocytes and metamyelocytes but does not include bands. Percent differential counts (%) should be interpreted in the context of the absolute cell counts (cells/UL). Lymphocytes % 10.6 13.0 - 44.0 % LAB HEMATOLOGY METHOD 01/08/2025 7:28 PM [facility] Monocytes % 4.8 2.0 - 10.0 % LAB HEMATOLOGY METHOD 01/08/2025 7:28 PM [facility] Eosinophils % 0.0 0.0 - 6.0 % LAB HEMATOLOGY METHOD 01/08/2025 7:28 PM [facility] Basophils % 0.2 0.0 - 2.0 % LAB HEMATOLOGY METHOD 01/08/2025 7:28 PM [facility] Neutrophils Absolute 14.38(H) 1.20 - 7.70 x10*3/uL LAB HEMATOLOGY METHOD 01/08/2025 7:28 PM [facility] Comment:Percent differential counts (%) should be interpreted in the context of the absolute cell counts (cells/uL). Immature Granulocytes Absolute, Automated 0.07 0.00 - 0.70 x10*3/uL LAB HEMATOLOGY METHOD 01/08/2025 7:28 PM [facility] Lymphocytes Absolute 1.82 1.20 - 4.80 x10*3/uL LAB HEMATOLOGY METHOD 01/08/2025 7:28 PM EDT [facility] Monocytes Absolute 0.83 0.10 - 1.00 x10*3/uL LAB HEMATOLOGY METHOD 01/08/2025 7:28 PM EDT [facility] Eosinophils Absolute 0.00 0.00 - 0.70 x10*3/uL LAB HEMATOLOGY METHOD 01/08/2025 7:28 PM EDT [facility] Basophils Absolute 0.03 0.00 - 0.10 x10*3/uL LAB HEMATOLOGY METHOD 01/08/2025 7:28 PM EDT [facility] Blood Venous blood specimen / Unknown Venipuncture / Unknown 01/08/2025 7:21 PM EDT 01/08/2025 7:26 PM EDT Dani Dodge MANAGER STORAGE-VALET ATTENDANT, DNP LAB BLOOD ORDERAB LES Final Result [facility] [address] [place] [address] * (ABNORMAL) Troponin I, High Sensitivity, Initial (01/08/2025 7:21 PM EDT) Pathologist [facility] Troponin I, High Sensitivity 29(H) 0 - 13 ng/L LAB IMMUNOASSAY METHOD 01/08/2025 7:52 PM EDT [facility] Blood Venous blood specimen / Unknown Venipuncture / Unknown 01/08/2025 7:21 PM EDT 01/08/2025 7:26 PM EDT [facility] - 01/08/2025 7:52 PM EDT Less [...] performed using a different testing methodology at [facility] than at [facility]. Direct result comparisons should only be made within the same method. us Dani Dodge MANAGER STORAGE-VALET ATTENDANT, DNP LAB BLOOD ORDERAB LES Final Result Performing Organization Address [facility] Co de Phone Number [facility] [address] [place] [address] * TSH with reflex to Free T4 if abnormal (01/08/2025 7:21 PM EDT) [facility] Thyroid Stimulating Hormone 2.12 0.44 - 3.98 mIU/L LAB IMMUNOASSAY METHOD 01/08/2025 8:19 PM EDT [facility] Blood Venous blood specimen / Unknown Venipuncture / Unknown 01/08/2025 7:21 PM EDT 01/08/2025 7:26 PM EDT [facility] - 01/08/2025 8:19 PM EDT TSH testing is performed using different testing methodology at [facility] than at [facility]. Direct result comparisons should only be made within the same method. us Triny Sol PA-C LAB BLOOD ORDERABLES Final Res ult Performing Organization Address [facility] Co de Phone Number [facility] [address] [place] [address] * Coagulation Screen (01/08/2025 7:21 PM EDT) Pathologist [facility] Protime 10.9 9.8 - 12.4 seconds LAB COAGULATION METHOD 01/08/2025 7:39 PM EDT [facility] INR 1.0 0.9 - 1.1 LAB COAGULATION METHOD 01/08/2025 7:39 PM EDT [facility] aPTT 28 26 - 36 seconds LAB COAGULATION METHOD 01/08/2025 7:39 PM EDT [facility] Blood Venous blood specimen / Unknown Venipuncture / Unknown 01/08/2025 7:21 PM EDT 01/08/2025 7:26 PM EDT [facility] - 01/08/2025 7:39 PM EDT The APTT is no longer used for monitoring Unfractionated Heparin Therapy. For monitoring Heparin Therapy, use the Heparin Assay. us Dani Dodeg MANAGER STORAGE-VALET ATTENDANT, DNP LAB BLOOD ORDERAB LES Final Result [facility] [address] [place] [address] * (ABNORMAL) B-type natriuretic peptide (01/08/2025 7:21 PM EDT) BNP 106(H) 0 - 99 pg/mL LAB IMMUNOASSAY METHOD 01/08/2025 8:16 PM EDT [facility] Blood Venous blood specimen / Unknown Venipuncture / Unknown 01/08/2025 7:21 PM EDT 01/08/2025 7:26 PM EDT [facility] - 01/08/2025 8:16 PM EDT <100 pg/mL - Heart failure unlikely 100-299 pg/mL - Intermediate probability of acute heart failure exacerbation. Correlate with clinical context and patient history. >=300 pg/mL - Heart Failure likely. Correlate with clinical context and patient history. BNP testing is performed using different testing methodology at [facility] than at other [facility]. Direct result comparisons should only be made within the same method. us Triny Sol PA-C LAB BLOOD ORDERABLES Final Res ult [facility] [address] [place] [address] * Hemoglobin A1c (01/08/2025 7:21 PM EDT) Hemoglobin A1C 5.5 See comment % 025 11:45 PM EDT [facility] Estimated Average Glucose 111 Not Established mg/dL 01/08/2025 11:45 PM EDT [facility] Blood Venous blood specimen / Unknown Venipuncture / Unknown 01/08/2025 7:21 PM EDT 01/08/2025 7:26 PM EDT Narrative [facility] - 01/08/2025 11:45 PM EDT Diagnosis of Diabetes-Adults Non-Diabetic: < or = 5.6% Increased risk for developing diabetes: 5.7-6.4% Diagnostic of diabetes: > or = 6.5% us Triny Slo PA-C LAB BLOOD ORDERABLES Final Res ult [facility] [address] [address] from Last 3 Months Insurance MEDICAID Member Subscriber Plan / Payer (Ef fective 2017-Present) Name:Ofe Martinezsy Relation to Subscriber:Self Name:King Martinez Payer ID:Not on file Group ID:Not on file Type:Not on file Address: [address] DUAL ADVANTAGE ANTH DUAL ADVANTAGE Advance Directives For more information, please contact: [phone] (Available ) * Full Code (Latest Code Status on File) Date Activated Date Inactivated Comments 11/26/2023 6:41 AM Question Answer Comments Plan of Care: Code Status Discussion Not Compl eted Decision Maker: Provider Rationale: Patient condition does not warra nt discussion Care Teams Wet Trimmer Relationship Specialty Start Date End Date Conchita Aden MD [facility] [place] [address] [place] [address] PCP - General Family Medicine 11/11/24 June Preston MD [address] [facility] Medical Office Bldg, [address] [place] [address] General Adjuster Electrophysiology 09/13/24
--- OUTSIDE RECORDS SUMMARY | 2025-04-10 13:46 | XMS_ITS | Encounter Summary ---
Author Organization [facility] Address [address] [place] [address] Phone Care Team Providers Care Hospital Medicine Director Name Role Phone Bossman Sol Oscar HOPPER Unavailable June Preston MD Unavailable Oscar Rodriguez MD Unavailable [phone] Generic Provider, No Assigned Pcp Primary Car e Provider Unavailable Diane Min RN Unavailable Unavailable June Preston MD Unavailable Cnochita Aden MD Primary Care Provider [phone] Diane Min RN Unavailable Unavailable Encounter Details Date Type Department Care Team (Late st Contact Info) Description 02/19/2024 Scanned Document [facility] [address] [place] [phone] Scanning, Generic Provider Social History Tobacco Use [...] place to sleep or slept in a fpc (including now)? No 02/16/2024 Comments Unknown Sex [...] Description 04/14/2025 9:30 AM EDT Hospital Encounter [facility] [place] [address] [facility]9 [place] [phone] Kervin Fair MD [address] [place] [address] Ventricular tachycardia (Multi) 04/14/2025 11:00 AM EDT - 04/14/2025 3:00 PM EDT Surgery [facility] [place] [address] [place] [address] Kervin Fair MD [address] [place] [address] [place] [[address] (CPT )] 07/14/2025 1:00 PM EDT Office Visit [facility] 7[address] [facility] [address] [place] [address] Oscar Rodriguez [facility] [facility], [address] [place] [address] 09/26/2025 12:[address] [facility] [address] [place] [place] [phone] 09/26/2025 1:00 PM EST Office Visit [facility] [address] [facility] [address] [place] [address] June Preston MD [address] [facility] Medical Office Bl, [address] [place] [address] documented as of this encounter Visit Diagnoses [...] documented as of this encounter Care Teams Hospital Medicine Director Relationship Specialty Start Date End Date Generic Provider, [place] [address] PCP - General Sticker Machine Operator 08/08/24 11/10/24 Conchita Aden MD [facility]5 [facility] [place] [address] PCP - General Family Medicine 11/11/24 Sol Keita, SOAKER MEAT Tool Turret Lathe Set Up OperatorQuality Review Specialist 02/19/24 05/17/24 June Preston MD [address] [facility], [address] [place] [address] Consulting Physician Cardiology 02/19/24 02/29/24 Oscar Rodriguez MD [address] [place] [address] 2, [address] [place] [address] Consulting Physician Cardiology 02/19/24 02/29/24 Diane Min RN Care Quality Review Specialist 09/05/24 12/06/24 June Preston MD [address] [facility], [address] [place] [address] Cathead Worker Electrophysiology 09/13/24 Diane Min, grid trimmerQuality Review Specialist 01/16/25 01/31/25 documented as of this encounter
--- OUTSIDE RECORDS SUMMARY | 2025-04-10 13:46 | XMS_ITS | Encounter Summary ---
Author Organization [facility] Address [address] [place] [address] Phone Care Team Providers Care Service Attendant Cafeteria Name Role Phone Tremaine West DO Primary Care Provider Ania Brothers ASSISTANT REAL ESTATE MANAGER-JUNIOR PHP DEVELOPER Unavailable Unavailable June Preston MD Unavailable Sol Keita ROOM SERVICE WAITER Unavailable [phone] June Preston MD Unavailable Oscar Rodriguez MD Unavailable [phone] Generic Provider, No Assigned Pcp Primary Car e Provider Unavailable Diane Min RN Unavailable Unavailable June Preston MD Unavailable Conchita Aden MD Primary Care Provider [phone] Diane Min RN Unavailable Unavailable Encounter Details Date Type Department Care Team (Late st Contact Info) Description 05/27/2022 Orders Only [facility] [address] [place] [address] Conversion, Onbase Social History Tobacco Use Types [...] Description 04/14/2025 9:30 AM EDT Hospital [facility] [place] [address] [facility] [address] [place] [address] Kervin Fair MD [address] [place] [address] Ventricular tachycardia (Multi) 04/14/2025 11:00 AM EDT - 04/14/2025 3:00 PM EDT Surgery [facility] [address] [facility] [address] [place] [address] Kervin Fair MD [address] [place], [place] [address] [place] [[id number] (CPT )] 07/14/2025 1:00 PM EDT Office Visit [facility] 703 [facility] 250 [place] [address] Oscar Rodriguez MD 703 [facility] 2, [address] [place] [address] 09/26/2025 12:20 PM EST Appointment [facility] [address] [place] [address] 09/26/2025 1:00 PM EST Office Visit [facility] [address] [facility] [address] [place] [address] June Preston MD [address] [facility] Office [facility], [facility] [address] [place] [address] Scheduled Orders Name Type Priority Associated Diagnoses [...] documented as of this encounter Care Teams Service Attendant Cafeteria Relationship Specialty Start Date End Date Tremaine West DO 1610 [facility] Tremaine West [facility] [address] [place] [address] PCP - General 01/22/22 11/05/23 Generic Provider, No Assigned Pcp, [place] [address] PCP - General Business Analytics Manager 08/08/24 11/10/24 Conchita Aden MD [address] [place] [address] PCP - General Family Medicine 11/11/24 Ania Brothers APRN-JUNIOR PHP DEVELOPER [address] [place] Amor [address] [facility] [address] [place] [address] Nurse Practitioner Cardiology 09/30/23 02/16/24 June Preston MD 1610 [facility] Tremaine West [facility] [address] [place] [address] Hand Slitter Cardiology 09/30/23 02/16/24 Sol Keita, ROOM SERVICE WAITER Life Science Technical OfficerLeather Stitcher 02/19/24 05/17/24 June Preston MD [address] [facility] Medical [facility] Bl, [address] [place] [address] Consulting Physician Cardiology 02/19/24 02/29/24 Oscar Rodriguez MD 703 [facility] 2, [address] [place] [address] Consulting Physician Cardiology 02/19/24 02/29/24 Diane Min, flour distributorLeather Stitcher 09/05/24 12/06/24 June Preston MD [address] [facility] [address] [place] [address] Hand Slitter Electrophysiology 09/13/24 Diane Min, flour distributorLeather Stitcher 01/16/25 01/31/25 documented as of this encounter
--- OUTSIDE RECORDS SUMMARY | 2025-04-10 13:46 | XMS_ITS | Clinical Summary ---
Author Organization [employer] [facility] Address [id number] [address] [place] [address] Care Team Providers Care Personnel Technician Name Role Phone Unavailable Primary Care Provider [...] 2 diabetes mellitus 1 11/30/2022 Atherosclerosis of redding co ronary artery of redding heart without angina pectoris 07/29/2023 Chronic obstructive pulmonary disease 07/29/2023 Chronic systolic CHF (congestive heart failure) 07/29/2023 Current every day smoker 07/29/2023 Essential hypertension 07/29/2023 Intermittent claudication 07/29/2023 Pulmonary embolism 07/29/2023 Type 2 diabetes mellitus 07/29/2023 Gastroesophageal reflux disease without esophagi tis 11/25/2021 Vascular insufficiency of intestine 04/09/2015 Encounters Date Type Department Care Team Description 03/01/2025 Telephone [facility] Gynecology Oncology, A Department of [facility] [address] [place] [address] Charlotte Garcia RN 02/22/2025 Telephone [facility] Gynecology Oncology, A Department of [facility] [address] [place] [address] Charlotte Garcia, PAULA from Last 3 Months [...] Negative Negative^N egative 12/01/2024 2:25 PM EST [facility] Hpv 18 Negative Negative^N egative 12/01/2024 2:25 PM EST [facility] Other high risk hpv Negative Negative^N egative 12/01/2024 2:25 PM EST [facility] Comment: HPV types 31,33,35,39,45,52,56,58,59,66 and 68 DNA were undetectable. THINP 11/29/2024 3:43 AM EST 12/01/2024 3:44 AM EST us Nanci Mcallister MD LAB BLOOD ORDERABLES Final Resul t [facility] [address] [facility] [facility] [place] [address] from Last 3 Months or Most Recently Relevant to Health Maintenance Insurance MEDICAID [place] MEDICARE
--- OUTSIDE RECORDS SUMMARY | 2025-04-10 13:46 | XMS_ITS | Encounter Summary ---
Author Organization [facility] Address [address] [place] [address] Phone Care Team Providers Care Aircraft Restorer Name Role Phone June Preston MD Unavailable Conchita Aden MD Primary Care Provider [phone] Encounter Details Date Type Department Care Team [...] from your doctor or pharmacy? Never 01/08/2025 [facility] Utilities Answer Date Recorded In the past 12 months has [facility] [employer], gas, oil, or water [employer] threatened to shut off services in your [...] week 01/08/2025 How often do you attend jew or mosque serv ices? Patient declined 01/08/2025 Do you belong to any clubs o r organizations such as jew groups, unions, fraternal or athletic groups, or [...] Recorded Patient Health Questionnaire-2 Score 0 01/08/2025 [facility] - Occupational Stress [...] in the past 12 m [facility], were you homeless or living in a [...] Description 04/14/2025 9:30 AM EDT Hospital Encounter [facility] [place] [address] [place] [address] Kervin Fair MD [address] [place] [address] Ventricular tachycardia (Multi) 04/14/2025 11:00 AM EDT - 04/14/2025 3:00 PM EDT Surgery [facility] [place] [address] [place] [address] Kervin Fair MD [address] [place] [address] [place] [[id number] (CPT )] 07/14/2025 1:00 PM EDT Office Visit [facility] 703 [facility] [address] [place] [address] Oscar Rodriguez MD 703 [facility] 2, [address] [place] [address] 09/26/2025 12:[address] [facility] [place] [address] [facility] [place] [address] 09/26/2025 1:00 PM EST [facility] [address] [facility] [address] [place] [address] June Preston MD [address] [facility] Medical Office Bldg, [address] [place] [address] documented as of this encounter Visit Diagnoses Not on filedocumented in this encounter Additional Health Concerns Assessment Noted Time PHQ-9 Depression Total Score: 9 01/23/20 22 11:33 AM EDT A fall risk assessment has been complete d for the patient 03/01/2024 12:30 PM EDT documented as of this encounter Care Teams Aircraft Restorer Relationship Specialty Start Date End Date Conchita Aden MD [address] [place] [address] [place] [address] PCP - General Family Medicine 11/11/24 June Preston MD [address] [facility] [address], [address] [place] [id number] Transcription Specialist Electrophysiology 09/13/24 documented as of this encounter
--- OUTSIDE RECORDS SUMMARY | 2025-04-10 13:46 | XMS_ITS | Encounter Summary ---
Author Organization [facility] Address [address] [place] [address] Phone Care Team Providers Care Labor And Delivery Registered Nurse Name Role Phone Tremaine West DO Primary Care Provider Ania Brothers MELTING OPERATOR-INVESTMENT RECOVERY TECHNICIAN Unavailable Unavailable June Preston MD Unavailable Sol Keita TRAFFIC ENGINEERING DIRECTOR Unavailable [phone] June Preston MD Unavailable Oscar Rodriguez MD Unavailable [phone] Generic Provider, No Assigned Pcp Primary Car e Provider Unavailable Diane Min RN Unavailable Unavailable June Preston MD Unavailable Conchita Aden MD Primary Care Provider [phone] Diane Min RN Unavailable Unavailable Encounter Details Date Type Department Care Team (Late st Contact Info) Description 08/15/2019 Orders Only [facility] [address] [place] [address] Conversion, Onbase Social History Tobacco Use Types [...] 04/14/2025 9:30 AM EDT Hospital Encounter [facility] [place] [address] [address] [place] [address] Kervin Fair MD [address] [place], [place] [phone] Ventricular tachycardia (Multi) 04/14/2025 11:00 AM EDT - 04/14/2025 3:00 PM EDT Surgery [facility] [place] [address] [facility] [address] [place] [address] Kervin Fair MD [address] [place], [place] [phone] [place] [[id number] (CPT )] 07/14/2025 1:00 PM EDT Office Visit [facility] 703 [facility] [address] [place] [address] Oscar Rodriguez MD 3 [facility] 2, [address] [place] [address] 09/26/2025 12:20 PM EST Appointment [facility] [address] [place] [address] 09/26/2025 1:00 PM EST Office Visit [facility] [address] [facility] [address] [place] [address] June Preston MD [address] [facility] Medical Office [facility], [facility] [address] [place] [address] Scheduled Orders Name Type Priority Associated Diagnoses [...] documented as of this encounter Care Teams Labor And Delivery Registered Nurse Relationship Specialty Start Date End Date Tremaine West DO [address], DO [address] [place] [address] PCP - General 01/22/22 11/05/23 Generic Provider, No Assigned Pcp, [place] [address] PCP - General Concrete Pump Operator 08/08/24 11/10/24 Conchita Aden MD [address] [place] [address] [place] [address] PCP - General Family Medicine 11/11/24 Ania Brothers, MELTING OPERATOR-INVESTMENT RECOVERY TECHNICIAN [address], [facility] [address] [place] [address] Nurse Practitioner Cardiology 09/30/23 02/16/24 June Preston MD 1610 [facility] Tremaine West [facility] [address] [place] [address] Hand Sewer Cardiology 09/30/23 02/16/24 Sol Keita, TRAFFIC ENGINEERING DIRECTOR Bid AnalystQm Consultant 02/19/24 05/17/24 June Preston MD [address] [facility], [address] [place] [address] Consulting Physician Cardiology 02/19/24 02/29/24 Oscar Rodriguez MD [address] [place] [address] 2, [address] [place] [address] Consulting Physician Cardiology 02/19/24 02/29/24 Diane Min, ferrulerQm Consultant 09/05/24 12/06/24 June Preston MD 125 [address] [facility] Medical [facility], [address] [place] [address] Hand Sewer Electrophysiology 09/13/24 Diane Min, ferrulerQm Consultant 01/16/25 01/31/25 documented as of this encounter
--- OUTSIDE RECORDS SUMMARY | 2025-04-10 13:46 | XMS_ITS | Encounter Summary ---
Author Organization [facility] Address [address] [place] [address] Care Team Providers Care Bore Miner Operator Name Role Phone Conchita Aden MD Primary Care Provider [phone] Encounter Details Date Type Department Care Team (Late Contact Info) Description 10/22/2024 Abstract [facility] OB [address] [facility] [address] [place] [address] David Ewing, DO [address] [facility] [address] [place], [facility] Social History Tobacco Use Types Packs/Day Years [...] on filedocumented in this encounter Care Teams Bore Miner Operator Relationship Specialty Start Date End Date Conchita Aden MD PCP - General Family Medicine 11/07/24 documented as of this encounter
--- OUTSIDE RECORDS SUMMARY | 2025-04-10 13:46 | XMS_ITS | Encounter Summary ---
Author Organization [facility] Address [address] [place] [address] Care Team Providers Care Control Systems Specialist Name Role Phone Conchita Aden MD Primary Care Provider [phone] Encounter Details Date Type Department Care Team (Late Contact Info) Description 10/22/2024 Abstract [facility] OB [address] [facility] [place] [place] [phone] David Ewing, DO [address] [facility] [address] [place], [facility]11 Social History Tobacco Use Types [...] on filedocumented in this encounter Care Teams Control Systems Specialist Relationship Specialty Start Date End Date Conchita Aden MD PCP - General Family Medicine 11/07/24 documented as of this encounter
--- OUTSIDE RECORDS SUMMARY | 2025-04-10 13:46 | XMS_ITS | Encounter Summary ---
Author Organization [facility] Address [address] [place] [address] Care Team Providers Care Assistant Broker Name Role Phone Conchita Aden MD Primary Care Provider [phone] Encounter Details Date Type Department Care Team (Late Contact Info) Description 10/30/2024 Clinisync Result Encounter [facility] External Department Unsolicited Charity Gerard PA [address] [place] [address] [place] [address] Social History Tobacco Use Types [...] EST Narrative 10/31/2024 6:59 AM EST The [address] [address] Electrocardiograph Report Signed Patient: KING MORENO MR#: [id number] : 1960 Acct:[id number] Age/Sex: 63 / F ADM Date: 10/30/24 Loc: [place] 203-[address]: Parmjit Poon M.D. Ordering Physician: Charity Gerard Date of Service: 10/30/24 Procedure(s): ECG 12 lead Accession Number(s): [id number] cc: The [facility] Test Date: 2024-10-30 Pat Name: KING MORENO Department: Room: - Gender: Female Stripping And Booking Machine Operator: : 1960 Requested By: CONCHITA ADEN Order Number: [id number] Reading MD: FELIZ JENNINGS Measurements Intervals [place] Rate: 94 P: 68 IL: 126 QRS: 56 QRSD: 84 T: 90 QT: 348 QTc: 399 Interpretive Statements 1100 Sinus rhythm 4068 Nonspecific Twave abnormality, can't exclude inferolateral ischemia 8102 Low QRS voltage in chest leads 9130 borderline ECG Compared to ECG 10/29/2024 16:19:34 No significant changes Electronically Signed On 10-31-2024 6:59:03 EST by FELIZ JENNINGS Dictated By: Feliz Jennings D.O. Signed By: 10/31/24 0659 DD/ 1500 TD/TT: Technical Writing Lead/Mgr: Procedure Note Radiology, Radiologist, MD - 10/31/2024 [place] [address] Electrocardiograph Report Signed Patient: KING MORENO AMR#: [id number] : 1Acct:[id number] Age/Sex: 63 / FADM Date: 10/30/24 Loc: [place] 203-[address]: Parmjit Poon M.D. Ordering Physician: Charity Gerard Date of Service: 10/30/24 Procedure(s): ECG 12 lead Accession Number(s): [id number] cc: The [facility] Test Date: 2024-10-30 Pat Name: KING MORENO Department: Room: - Gender: Female Stripping And Booking Machine Operator: : 1960 Requested By: CONCHITA ADEN Order Number: [id number] Reading MD: FELIZ JENNINGS Measurements Intervals [place] Rate: 94 P: 68 IL: 126 QRS: 56 QRSD: 84 T: 90 QT: 348 QTc: 399 Interpretive Statements 1100 Sinus rhythm 4068 Nonspecific Twave abnormality, can't exclude inferolateral ischemia 8102 Low QRS voltage in chest leads 9130 borderline ECG Compared to ECG 10/29/2024 16:19:34 No significant changes Electronically Signed On 10-31-2024 6:59:03 EST by FELIZ JENNINGS Dictated By: Feliz Jennings D.O. Signed By:10/31/24 0659 DD/ 1500 TD/TT: Technical Writing Lead/Mgr: Charity [facility] Final Result documented in this encounter Visit Diagnoses Not on filedocumented in this encounter Care Teams Assistant Broker Relationship Specialty Start Date End Date Conchita Aden MD PCP - General Family Medicine 11/07/24 documented as of this encounter
--- OUTSIDE RECORDS SUMMARY | 2025-04-10 13:46 | XMS_ITS | Encounter Summary ---
Author Organization [facility] Address [address] [place] [address] Phone Care Team Providers Care Supply Chain Buyer Name Role Phone Tremaine West DO Primary Care Provider Ania Brothers WAREHOUSE PACKAGING SUPERVISOR-REPAIR ARMATURE WINDER Unavailable Unavailable June Preston MD Unavailable Sol Keita SUPPLY PLANNER Unavailable [phone] June Preston MD Unavailable Oscar Rodriguez MD Unavailable [phone] Generic Provider, No Assigned Pcp Primary Car e Provider Unavailable Diane Min RN Unavailable Unavailable June Preston MD Unavailable Conchita Aden MD Primary Care Provider [phone] Diane Min RN Unavailable Unavailable Encounter Details Date Type Department Care Team (Late st Contact Info) Description 09/08/2019 Orders Only [facility] LE[facility]Y [address] [place] [address] Conversion, Onbase Social History Tobacco Use Types [...] 04/14/2025 9:30 AM EDT Hospital Encounter [facility] [address] [place] [address] Kervin Fair MD [address] [place], [place] [address] Ventricular tachycardia (Multi) 04/14/2025 11:00 AM EDT - 04/14/2025 3:00 PM EDT Surgery [facility] [address] [facility] [address] [place] [address] Kervin Fair MD [address] [place], [place] [address] [place] [19523 (CPT )] 07/14/2025 1:00 PM EDT Office Visit [facility] 703 [facility] 250 [place] [address] Oscar Rodriguez MD 3 [facility] 2, Steve [address] [place] [address] 09/26/2025 12:20 PM EST Appointment [facility] [address] [place] [address] 09/26/2025 1:00 PM EST Office Visit [facility] 125 E [facility] 320 [place] [address] June Preston MD 125 E [facility] Medical Office [facility], [facility] 305 [place] [address] Scheduled Orders Name Type Priority Associated Diagnoses [...] documented as of this encounter Care Teams Supply Chain Buyer Relationship Specialty Start Date End Date Tremaine West DO [address], DO Steve [address] [place] [address] PCP - General 01/22/22 11/05/23 Generic Provider, No Assigned Pcp[place] [address] PCP - General Senior Accounts Payable Clerk 08/08/24 11/10/24 Conchita Aden MD [address] [place] [address] PCP - General Family Medicine 11/11/24 Ania Brothers, WAREHOUSE PACKAGING SUPERVISOR-REPAIR ARMATURE WINDER 1610 [facility] Tremaine West, DO Steve [address] [place] [address] Nurse Practitioner Cardiology 09/30/23 02/16/24 June Preston MD 1610 [facility] Tremaine West DO Steve [address] [place] [address] Cardiology Teacher Cardiology 09/30/23 02/16/24 Sol Keita, SUPPLY PLANNER Outsole TackerOffice Nurse Practitioner 02/19/24 05/17/24 June Preston MD 125 E [facility], Steve [address] [place] [address] Consulting Physician Cardiology 02/19/24 02/29/24 Oscar Rodriguez MD [address] [place] [address] 2, Steve [address] [place] [address] Consulting Physician Cardiology 02/19/24 02/29/24 Dinae Min, sound effects technicianOffice Nurse Practitioner 09/05/24 12/06/24 June Preston MD [address] [facility] [address], Steve [address] [place] [address] Cardiology Teacher Electrophysiology 09/13/24 Diane Min, sound effects technicianOffice Nurse Practitioner 01/16/25 01/31/25 documented as of this encounter
--- OUTSIDE RECORDS SUMMARY | 2025-04-10 13:46 | XMS_ITS | Encounter Summary ---
Author Organization [facility] Address [address] [place] [address] Phone Care Team Providers Care Repair Manager Name Role Phone Tremaine West DO Primary Care Provider Ania Brothers INFORMATION CLERK-RED HAT LINUX ENGINEER Unavailable Unavailable June Preston MD Unavailable Sol Keita MEAT GRINDER Unavailable [phone] June Preston MD Unavailable Oscar Rodriguez MD Unavailable [phone] Generic Provider, No Assigned Pcp Primary Car e Provider Unavailable Diane Min RN Unavailable Unavailable June Preston MD Unavailable Conchita Aden MD Primary Care Provider [phone] Diane Min RN Unavailable Unavailable Encounter Details Date Type Department Care Team (Late st Contact Info) Description 11/20/2020 Orders Only [facility] [address] [place] [address] Conversion, Onbase Social History Tobacco Use Types [...] Description 04/14/2025 9:30 AM EDT Hospital Encounter [facility] [address] [facility] 35[address] [place] [address] Kervin Fair MD [address] [place], [place] [address] Ventricular tachycardia (Multi) 04/14/2025 11:00 AM EDT - 04/14/2025 3:00 PM EDT Surgery [facility] [place] [address] [facility] 35[address] [place] [address] Kervin Fair MD [address] [place], [place] [address] [place] [03383 (CPT )] 07/14/2025 1:00 PM EDT Office Visit [facility] 703 [facility] 250 [place] [address] Oscar Rodriguez MD 703 [facility] 2, Steve [address] [place] [address] 09/26/2025 12:20 PM EST Appointment [facility] [address] [place] [address] 09/26/2025 1:00 PM EST Office Visit [facility] 125 E [facility] 320 [place] [address] June Preston MD 125 E [facility] Office [facility], [facility] 305 [place] [address] Scheduled Orders Name Type Priority Associated Diagnoses [...] documented as of this encounter Care Teams Repair Manager Relationship Specialty Start Date End Date Tremaine West DO [address] [place] [address] Childerscristino, DO Steve [address] [place] [address] PCP - General 01/22/22 11/05/23 Generic Provider, No Assigned Pcp, [place] [address] PCP - General Turn Supervisor 08/08/24 11/10/24 Conchita Aden MD [address] [place] [address] PCP - General Family Medicine 11/11/24 Ania Brothers, INFORMATION CLERK-RED HAT LINUX ENGINEER 1610 [facility] Tremaine West, DO Steve [address] [place] [address] Nurse Practitioner Cardiology 09/30/23 02/16/24 June Preston MD 1610 [facility] Tremaine Childersyukoezekiel DO Steve [address] [place] [address] Master At Arms Cardiology 09/30/23 02/16/24 Sol Keita, MEAT GRINDER Maple Sugar MakerPrior Authorization Nurse 02/19/24 05/17/24 June Preston MD 125 E [facility], Steve [address] [place] [address] Consulting Physician Cardiology 02/19/24 02/29/24 Oscar Rodriguez MD [address] [place] [address] 2, Steve [address] [place] [address] Consulting Physician Cardiology 02/19/24 02/29/24 Diane Min, roving frame tenderPrior Authorization Nurse 09/05/24 12/06/24 June Preston MD 125 E [facility], [facility] 305 [place] [address] Master At Arms Electrophysiology 09/13/24 Diane Min, roving frame tenderPrior Authorization Nurse 01/16/25 01/31/25 documented as of this encounter
--- OUTSIDE RECORDS SUMMARY | 2025-04-10 13:46 | XMS_ITS | Clinical Summary ---
Author Organization [facility] Address [address] [place] [address] Care Team Providers Care Coffee Maker Name Role Phone Conchita Aden MD Primary Care Provider [phone] Allergies No known active allergies Medications oxybutynin [...] Moreno M.D. 03/27/2025 11:14 AM Dictation Location: [place] [address] Tech: Le Millan Transcribed By: KATHLEEN 03/27/25 1114 Dictated By: Gerber Moreno II, MD 03/27/25 1111 Signed By: <Electronically signed by Gerber Moreno II, MD in OV> 03/27/25 1114 Narrative 03/27/2025 11:16 AM EDT [facility] Main [place] [address] [place] [address] Ultrasound Report Signed Patient: Latanya Martinez MR#: [id number] : 1960 Acct:[id number] Age/Sex: 64 / F ADM Date: 03/26/25 Loc: Room: [address] [place] [address] Type: ADM IN Attending Dr: Yonis Covington [...] Procedure Note Gerber Moreno MD - 03/27/2025 [facility] Main [place] [address] [place] [address] Ultrasound Report Signed Patient: Latanya Martinez AMR#: [id number] : 1Acct:[id number] Age/Sex: 64 / FADM Date: 03/26/25 Loc: Room: [id number]: ADM IN Attending Dr: Yonis Covington DO [...] Moreno M.D. 03/27/2025 11:14 AM Dictation Location: [place] [address] Tech: Le Millan Transcribed By: PWS 03/27/25 1114 Dictated By: Gerber Moreno II, MD 03/27/25 1111 Signed By: <Electronically signed by Gerber Moreno II, MD inOV> 03/27/25 1114 us Lorrie Winn MD IMG US PROCEDURES Final Result * CARCINOEMBRYONIC ANTIGEN (03/26/2025 5:52 PM EDT) CARCINOEMBRYONIC ANTIGEN 1.4 0.0 - 3.0 ng/mL 03/26/2025 6:[address] PM [address] [facility] Comment: Serial tumor marker results determined by assays using different manufacturers or methods may not be comparable. [facility] Laboratory fire captain marine and method: SAEED UNICEL DXI, 2 SITE IMMUNOENZYMATIC S ANDWICH ASSAY. Other Topography unknown / Unknown 03/26/2025 5:52 PM EDT 03/26/2025 6:10 PM EDT us Lorrie Winn MD LAB BLOOD ORDERABLES Final Res ult [facility] [address] [place] [address], [facility] 1[address] [place] [address] * [place] 125 (03/26/2025 5:52 PM EDT) CANCER ANTIGEN 125 10.3 0.0 - 38.1 03/29/2025 3:36 AM EDT [facility] Comment: [facility] Electrochemiluminescence Immunoassay (ECLIA) Values obtained with different assay methods or kits cannot be used interchangeably. Results cannot be interpreted as absolute evidence of the presence or absence of malignant disease. Performed at: [address] [id number] Regional Service Manager: Jose Damon PhD, Phone: [phone] Other Topography unknown / Unknown 03/26/2025 5:52 PM EDT 03/26/2025 6:10 PM EDT us Lorrie Winn MD LAB BLOOD ORDERABLES Final Res ult [facility] [address] [place] [address], from Last 3 Months Insurance [employer]VANTAGE Care Teams Coffee Maker Relationship Specialty Start Date End Date Conchita Aden MD PCP - General Family Medicine 11/07/24
--- OUTSIDE RECORDS SUMMARY | 2025-04-10 13:46 | XMS_ITS | Encounter Summary ---
Author Organization [facility] Address [address] [place] [address] Phone Care Team Providers Care Gas Line Installer Supervisor Name Role Phone Tremaine West DO Primary Care Provider Ania Brothers CAR CLEANING SUPERVISOR-OUTSIDE MACHINIST HELPER Unavailable Unavailable June Preston MD Unavailable Sol Keita SASH CLAMP OPERATOR Unavailable [phone] June Preston MD Unavailable Oscar Rodriguez MD Unavailable [phone] Generic Provider, No Assigned Pcp Primary Car e Provider Unavailable Diane Min RN Unavailable Unavailable June Preston MD Unavailable Conchita Aden MD Primary Care Provider [phone] Diane Min RN Unavailable Unavailable Encounter Details Date Type Department Care Team (Late st Contact Info) Description 03/25/2023 Orders Only [facility] LEGACY [address] [place] [address] Conversion, Onbase Social History Tobacco Use Types [...] Description 04/14/2025 9:30 AM EDT Hospital Encounter [facility] [address] [facility] 3529 [place] [address] Kervin Fair MD [address] [place] [address] Ventricular tachycardia (Multi) 04/14/2025 11:00 AM EDT - 04/14/2025 3:00 PM EDT Surgery [facility] [place] [address] [facility] 35[address] [place] [address] Kervin Fair MD [address] [place], [place] [address] [place] [72389 (CPT )] 07/14/2025 1:00 PM EDT [facility] 703 [facility] 250 [place] [address] Oscar Rodriguez MD 703 [facility] 2, Steve [address] [place] [address] 09/26/2025 12:20 PM EST Appointment [facility] [address] [place] [address] 09/26/2025 1:00 PM EST Office Visit [facility] 125 E [facility] 320 [place] [address] June Preston MD 125 E [facility] Office [facility], [facility] 305 [place] [address] Scheduled Orders Name Type Priority Associated Diagnoses [...] documented as of this encounter Care Teams Gas Line Installer Supervisor Relationship Specialty Start Date End Date Tremaine West DO 1610 [facility] Tremaine West [facility] 103 [place] [address] PCP - General 01/22/22 11/05/23 Generic Provider, No Assigned P[place], [place] [address] PCP - General Mechanical Developer Prover 08/08/24 11/10/24 Conchita Aden MD [address] [place] [address] PCP - General Family Medicine 11/11/24 Ania Brothers APRN-OUTSIDE MACHINIST HELPER [address] [place] [address] [facility] 103 [place] [address] Nurse Practitioner Cardiology 09/30/23 02/16/24 June Preston MD 1610 [facility] Tremaine West [facility] 103 [place] [address] Metal Sprayer Protective Coating Cardiology 09/30/23 02/16/24 Sol Keita, SASH CLAMP OPERATOR Career Services RepresentativeImpregnator Helper 02/19/24 05/17/24 June Preston MD 125 E [facility] Medical [facility] Bl, Steve [address] [place] [address] Consulting Physician Cardiology 02/19/24 02/29/24 Oscar Rodriguez MD 703 [facility] 2, Steve [address] [place] [address] Consulting Physician Cardiology 02/19/24 02/29/24 Diane Min, cook school cafeteriaImpregnator Helper 09/05/24 12/06/24 June Preston MD [facility] Steve [address] [place] [address] Metal Sprayer Protective Coating Electrophysiology 09/13/24 Diane Min, cook school cafeteriaImpregnator Helper 01/16/25 01/31/25 documented as of this encounter
--- OUTSIDE RECORDS SUMMARY | 2025-04-10 13:46 | XMS_ITS | Encounter Summary ---
Author Organization [facility] Address [address] [place] [address] Phone Care Team Providers Care Guest House Manager Name Role Phone Tremaine West DO Primary Care Provider Ania Brothers RESTORATION OFFICER-CAPTAIN'S ASSISTANT Unavailable Unavailable June Preston MD Unavailable Sol Keita CHAPTER RELATIONS ADMINISTRATOR Unavailable [phone] June Preston MD Unavailable Oscar Rodriguez MD Unavailable [phone] Generic Provider, No Assigned Pcp Primary Car e Provider Unavailable Diane Min RN Unavailable Unavailable June Preston MD Unavailable Conchita Aden MD Primary Care Provider [phone] Diane Min RN Unavailable Unavailable Encounter Details Date Type Department Care Team (Late st Contact Info) Description 06/30/2020 Orders Only [email or web address] LEGACY [address] [place] [address] Conversion, Onbase Social History Tobacco Use Types [...] EDT Hospital Encounter [facility] [address] [place] [address] [place] [address] Kervin Fair MD [address] [place], [place] [address] Ventricular tachycardia (Multi) 04/14/2025 11:00 AM EDT - 04/14/2025 3:00 PM EDT Surgery [facility] [place] [address] [facility] 3529 [place] [address] Kervin Fair MD [address] [place], [place] [address] [place] [[address]594 (CPT )] 07/14/2025 1:00 PM EDT Office Visit [facility] 703 [facility] 250 [place] [address] Oscar Rodriguez MD 3 [facility] 2, Steve [address] [place] [address] 09/26/2025 12:20 PM EST Appointment [facility] [address] [place] [address] 09/26/2025 1:00 PM EST Office Visit [facility] 125 E [facility] [address] [place] [address] June Preston MD 125 E [facility] Medical Office [facility], [facility] 305 [place] [address] Scheduled Orders Name Type Priority Associated Diagnoses [...] documented as of this encounter Care Teams Guest House Manager Relationship Specialty Start Date End Date Tremaine West DO [address] [place] [address] [place], DO Steve [address] [place] [address] PCP - General 01/22/22 11/05/23 Generic Provider, No Assigned [place]cp[place] [address] PCP - General Mangle Catcher 08/08/24 11/10/24 Conchita Aden MD [address] [place] [address] PCP - General Family Medicine 11/11/24 Ania Brothers, RESTORATION OFFICER-CAPTAIN'S ASSISTANT 1610 [facility] Tremaine West, DO Steve [address] [place] [address] Nurse Practitioner Cardiology 09/30/23 02/16/24 June Preston MD 1610 [facility] Tremaine West DO Steve [address] [place] [address] Fire Operations Forester Cardiology 09/30/23 02/16/24 Sol Keita, CHAPTER RELATIONS ADMINISTRATOR Recreation TechnicianBanquet Supervisor 02/19/24 05/17/24 June Preston MD 125 E [facility], Steve [address] [place] [address] Consulting Physician Cardiology 02/19/24 02/29/24 Oscar Rodriguez MD [address] [place] [address] 2, Steve [address] [place] [address] Consulting Physician Cardiology 02/19/24 02/29/24 Diane Min, ropemanBanquet Supervisor 09/05/24 12/06/24 June Preston MD 125 [address] [facility] Bl, Steve [address] [place] [address] Fire Operations Forester Electrophysiology 09/13/24 Diane Min, ropemanBanquet Supervisor 01/16/25 01/31/25 documented as of this encounter
--- OUTSIDE RECORDS SUMMARY | 2025-04-10 13:46 | XMS_ITS | Encounter Summary ---
Author Organization [facility] Address [address] [place] [address] Care Team Providers Care Rag Washer Name Role Phone Conchita Aden MD Primary Care Provider [phone] Encounter Details Date Type Department Care Team (Late st Contact Info) Description 06/29/2023 External Result Encounter [facility] External Department Unsolicited Steve Combs, DO [address] [facility] 230 [place] [address] Social History Tobacco Use Types Packs/Day Years [...] Gerber Moreno M.D.06/29/2023 3:14 PM Dictation Location: [place] [address] Transcribed By: [facility] 06/29/23 1514 Dictated By: Gerber Moreno II, MD 06/29/23 1500 Signed By: <Electronically signed by Gerber Moreno II, MD in OV> 06/29/23 1514 Narrative 06/29/2023 3:36 PM EDT [facility] Main [place] [address] [place] [address] MRI Report Signed Patient: Latanya Martinez MR#: [id number] : 1960 Acct:[id number] Age/Sex: 62 / F ADM Date: 06/29/23 Loc: Room: Type: [facility] Attending Dr: Steve Combs DO Copies to: DO Darcie Draper MD, RES Ordering Provider: Steve Combs DO; Darcie Garcia MD, RES Date of Service: 06/29/23 MR/MR lumbar spine wo/w con: Other intervertebral disc degeneration, lumbar region;Spondy ([id number]) XR/XR pre/post mri xray: M51.36,M43.16 MR lumbar [...] Note Radiology, Radiologist, MD - 06/29/2023 [facility] Main [place] [address] [place] [address] MRI Report Signed Patient: Latanya Martinez AMR#: [id number] : 1960cct:[id number] Age/Sex: 62 / FADM Date: 06/29/23 Loc: Room:Type: [facility] Attending Dr: Steve Combs DO Copies to: DO Darcie Draper MD, RES Ordering Provider: Steve Combs DO; Darcie Garcia MD, RES Date of Service: 06/29/23 MR/MR lumbar spine wo/w con: Otherintervertebral disc degeneration, lumbar region;Spondy ([id number]) XR/XR pre/post mri xray: M51.36,M43.16 MR lumbar [...] and L4-5. The conus terminates at the L1-G5tyoknmomwhdequ disc level. No epidural or paraspinous fluid [...] mild mass effect on the exiting left G6cifjw roots. This are also present. No significant spinal canal stenosis. At L5-S1: There is a normal disc, central canal, and neural foramen. MR/MR lumbar spine wo/w con IMPRESSION: At L4-L5: There is a focal left foraminal disc extrusion contributing tomoderate to severe left neural foraminal narrowing with mild mass effect on the exiting left J2ymjzi roots. This are also present. No significant [...] Gerber Moreno M.D.06/29/2023 3:14 PM Dictation Location: [place] [address] Transcribed By: [facility] 06/29/23 1514 Dictated By: Gerber Moreno II, MD 06/29/23 1500 Signed By: <Electronically signed by Gerber Moreno II, MD inOV> 06/29/23 1514 Steve Combs DO IMG MRI PROCEDURES Final Result documented in this encounter Visit Diagnoses Not on filedocumented in this encounter Care Teams Rag Washer Relationship Specialty Start Date End Date Conchita Aden MD PCP - General Family Medicine 11/07/24 documented as of this encounter
--- OUTSIDE RECORDS SUMMARY | 2025-04-10 13:46 | XMS_ITS | Encounter Summary ---
Author Organization [facility] Address [address] [place] [address] Phone Care Team Providers Care Government Sales Manager Name Role Phone Tremaine West DO Primary Care Provider Ania Brothers DOCUMENT CLERK-MERCHANDISE PROCESSOR Unavailable Unavailable June Preston MD Unavailable Sol Keita APARTMENT MANAGER Unavailable [phone] June Preston MD Unavailable Oscar Rodriguez MD Unavailable [phone] Generic Provider, No Assigned Pcp Primary Car e Provider Unavailable Diane Min RN Unavailable Unavailable June Preston MD Unavailable Conchita Aden MD Primary Care Provider [phone] Diane Min RN Unavailable Unavailable Encounter Details Date Type Department Care Team (Late st Contact Info) Description 07/22/2023 Scanned Document [facility] [address] [place] [address] Conversion, Onbase Social History Tobacco Use Types [...] AM EDT Hospital Encounter [facility] [address] [place] Steve [address] [place] [address] Kervin Fair MD [address] [place] [address] Ventricular tachycardia (Multi) 04/14/2025 11:00 AM EDT - 04/14/2025 3:00 PM EDT Surgery [facility] [address] [place] Steve [address] [place] [address] Kervin Fair MD [address] [place], [place] [id number] [place] [71795 (CPT )] 07/14/2025 1:00 PM EDT Office Visit [facility] 703 [facility] Steve [address] [place] [address] Oscar Rodriguez MD 703 [facility] 2, Steve [address] [place] [address] 09/26/2025 12:[address] [facility] [address] [place] [address] 09/26/2025 1:00 PM EST Office Visit [facility] 125 E [facility] [address] [place] [address] June Preston MD 125 E [facility] Office [facility], Steve [address] [place] [address] documented as of this encounter Procedures Procedure [...] documented as of this encounter Care Teams Government Sales Manager Relationship Specialty Start Date End Date Tremaine West DO 1610 [facility] Tremaine West DO [address] [address] PCP - General 01/22/22 11/05/23 Generic Provider, No Assigned Pcp, [place] [address] PCP - General Type Inspector 08/08/24 11/10/24 Conchita Aden MD [address] [place] [address] PCP - General Family Medicine 11/11/24 Ania Brothers, DOCUMENT CLERK-MERCHANDISE PROCESSOR [address] [place] [address] [address] Nurse Practitioner Cardiology 09/30/23 02/16/24 June Preston MD [address] [place] [address] [address] Pesticide Control Inspector Cardiology 09/30/23 02/16/24 Sol Keita, APARTMENT MANAGER Java Groovy DeveloperDeputy Sheriff Civil Division 02/19/24 05/17/24 June Preston MD 125 E [facility], Steve [address] [place] [address] Consulting Physician Cardiology 02/19/24 02/29/24 sOcar Rodriguez MD 703 [facility] 2, [address] [place] [address] Consulting Physician Cardiology 02/19/24 02/29/24 Diane Min, insurance coderDeputy Sheriff Civil Division 09/05/24 12/06/24 June Preston MD 125 E [facility], [address] [place] [address] Pesticide Control Inspector Electrophysiology 09/13/24 Diane Min, insurance coderDeputy Sheriff Civil Division 01/16/25 01/31/25 documented as of this encounter
--- OUTSIDE RECORDS SUMMARY | 2025-04-10 13:46 | XMS_ITS | Encounter Summary ---
Author Organization [facility] Address [address] [place] [address] Phone Care Team Providers Care Dampproofer Name Role Phone Tremaine West DO Primary Care Provider Ania Brothers CUSTOMER SERVICE ENGINEER-DATA MANAGEMENT Unavailable Unavailable June Preston MD Unavailable Sol Keita CHIEF EXECUTIVE OR MANAGING DIRECTOR Unavailable [phone] June Preston MD Unavailable Oscar Rodriguez MD Unavailable [phone] Generic Provider, No Assigned Pcp Primary Car e Provider Unavailable Diane Min RN Unavailable Unavailable June Preston MD Unavailable Conchita Aden MD Primary Care Provider [phone] Diane Min RN Unavailable Unavailable Encounter Details Date Type Department Care Team (Late st Contact Info) Description 07/04/2020 Orders Only [facility] LE[facility]Y [address] [place] [address] Conversion, Onbase Social History Tobacco Use Types [...] AM EDT Hospital Encounter [facility] [address] [place] [address] [place] [address] Kervin Fair MD [address] [place], [place] [id number] Ventricular tachycardia (Multi) 04/14/2025 11:00 AM EDT - 04/14/2025 3:00 PM EDT Surgery [facility] [address] [facility] 35[address] [place] [address] Kervin Fair MD [address] [place], [place] [phone] [place] [[id number] (CPT )] 07/14/2025 1:00 PM EDT Office Visit [facility] 703 [facility] 250 [place] [address] Oscar Rodriguez MD 3 [facility] 2, Steve [address] [place] [address] 09/26/2025 12:20 PM EST Appointment [facility] [address] [place] [address] 09/26/2025 1:00 PM EST Office Visit [facility] 125 E [facility] 320 [place] [address] June Preston MD 125 E [facility] Medical Office [facility], [facility] [address] [place] [address] Scheduled Orders Name Type Priority Associated Diagnoses [...] documented as of this encounter Care Teams Dampproofer Relationship Specialty Start Date End Date Tremaine West DO 1610 [place], DO Steve [address] [place] [address] PCP - General 01/22/22 11/05/23 Generic Provider, No Assigned Pcp[place] [address] PCP - General Mathematical Scientist 08/08/24 11/10/24 Conchita Aden MD [address] [place] [address] PCP - General Family Medicine 11/11/24 Ania Brothers, CUSTOMER SERVICE ENGINEER-DATA MANAGEMENT 1610 [facility] Tremaine West, DO Steve [address] [place] [address] Nurse Practitioner Cardiology 09/30/23 02/16/24 June Preston MD 1610 [facility] Tremaine West DO Steve [address] [place] [address] Equipment Operator Cardiology 09/30/23 02/16/24 Sol Keita, CHIEF EXECUTIVE OR MANAGING DIRECTOR R D InternshipCommercial Internship 02/19/24 05/17/24 June Preston MD 125 E [facility], Steve [address] [place] [address] Consulting Physician Cardiology 02/19/24 02/29/24 Oscar Rodriguez MD [address] [place] [address] 2, [address] [place] [address] Consulting Physician Cardiology 02/19/24 02/29/24 Diane Min, underwriting specialistCommercial Internship 09/05/24 12/06/24 June Preston MD 125 E [facility] Bl, [address] [place] [address] Equipment Operator Electrophysiology 09/13/24 Diane Min, underwriting specialistCommercial Internship 01/16/25 01/31/25 documented as of this encounter
--- OUTSIDE RECORDS SUMMARY | 2025-04-10 13:46 | XMS_ITS | Encounter Summary ---
Author Organization [facility] Address [address] [place] [address] Care Team Providers Care Math And Science Division Chair Name Role Phone Conchita Aden MD Primary Care Provider [phone] Encounter Details Date Type Department Care Team (Late Contact Info) Description 10/22/2024 Abstract [facility] [address] [facility] [place] [phone] David Ewing, DO [address] [facility] [address] Sven [place], [facility]11 Social History Tobacco Use Types Packs/Day [...] on filedocumented in this encounter Care Teams Math And Science Division Chair Relationship Specialty Start Date End Date Conchita Aden MD PCP - General Family Medicine 11/07/24 documented as of this encounter
--- OUTSIDE RECORDS SUMMARY | 2025-04-10 13:46 | XMS_ITS | Encounter Summary ---
Author Organization [facility] Address [address] [place] [address] Phone Care Team Providers Care Service Dismantler Name Role Phone Tremaine West DO Primary Care Provider Ania Brothers MAIN LINE ASSEMBLER-SOIL CONSERVATION AIDE Unavailable Unavailable June Preston MD Unavailable Sol Keita MANAGER EXPRESS Unavailable [phone] June Preston MD Unavailable Oscar Rodriguez MD Unavailable [phone] Generic Provider, No Assigned Pcp Primary Car e Provider Unavailable Diane Min RN Unavailable Unavailable June Preston MD Unavailable Conchita Aden MD Primary Care Provider [phone] Diane Min RN Unavailable Unavailable Encounter Details Date Type Department Care Team (Late st Contact Info) Description 01/31/2021 Orders Only [facility] [address] [place] [place] [address] Conversion, Onbase Social History Tobacco Use Types [...] Description 04/14/2025 9:30 AM EDT Hospital Encounter [facility] [address] [facility] 35[address] [place] [address] Kervin Fair MD [address] [place], [place] [phone] Ventricular tachycardia (Multi) 04/14/2025 11:00 AM EDT - 04/14/2025 3:00 PM EDT Surgery [facility] [address] [facility] 35[address] [place] [address] Kervin Fair MD [address] [place], [place] [address] [place] [[id number] (CPT )] 07/14/2025 1:00 PM EDT Office Visit [facility] 703 [facility] 250 [place] [address] Oscar Rodriguez MD 7[address] [facility] 2, Steve [address] [place] [address] 09/26/2025 12:[address] [facility] [address] [place] [address] 09/26/2025 1:00 PM EST [facility] 125 E [facility] 320 [place] [address] June Preston MD 125 E [facility] Office [facility], [facility] 305 [place] [address] Scheduled Orders Name Type Priority Associated Diagnoses [...] as of this encounter Care Teams Service Dismantler Relationship Specialty Start Date End Date Tremaine West DO 1610 [place] Am[place] Childerscristino, DO Steve [address] [place] [address] PCP - General 01/22/22 11/05/23 Generic Provider, No Assigned Pcp, [place] [address] PCP - General Senior Test Analyst 08/08/24 11/10/24 Conchita Aden MD [address] [place] [address] PCP - General Family Medicine 11/11/24 Ania Brothers, MAIN LINE ASSEMBLER-SOIL CONSERVATION AIDE 1610 [facility] Tremaine West, DO Steve [address] [place] [address] Nurse Practitioner Cardiology 09/30/23 02/16/24 June Preston MD 1610 [facility] Tremaine Childersyukoezekiel DO Steve [address] [place] [address] Therapy Teacher Cardiology 09/30/23 02/16/24 Sol Keita, MANAGER EXPRESS Employee Health RnDigital Media Producer 02/19/24 05/17/24 June Preston MD 125 E [facility], Steve [address] [place] [address] Consulting Physician Cardiology 02/19/24 02/29/24 Oscar Rodriguez MD [address] [place] [address] 2, [address] [place] [address] Consulting Physician Cardiology 02/19/24 02/29/24 Diane Min, heating element winderDigital Media Producer 09/05/24 12/06/24 June Preston MD 125 E [facility], [facility] 305 [place] [address] Therapy Teacher Electrophysiology 09/13/24 Diane Min, heating element winderDigital Media Producer 01/16/25 01/31/25 documented as of this encounter
--- OUTSIDE RECORDS SUMMARY | 2025-04-10 13:46 | XMS_ITS | Encounter Summary ---
Author Organization [facility] Address [address] [place] [address] Phone Care Team Providers Care Evaluation Assistant Name Role Phone Tremaine West DO Primary Care Provider Ania Brothers LEAD DATABASE ADMINISTRATOR-ELECTRIC INSTALLER Unavailable Unavailable June Preston MD Unavailable Sol Keita CIRCULATION LIBRARIAN Unavailable [phone] June Preston MD Unavailable Oscar Rodriguez MD Unavailable [phone] Generic Provider, No Assigned Pcp Primary Car e Provider Unavailable Diane Min RN Unavailable Unavailable June Preston MD Unavailable Conchita Aden MD Primary Care Provider [phone] Diane Min RN Unavailable Unavailable Encounter Details Date Type Department Care Team (Late st Contact Info) Description 08/20/2020 Orders Only [facility] LE[facility]Y [address] [place] [address] Conversion, Onbase Social History Tobacco Use Types [...] 9:30 AM EDT Hospital Encounter [facility] [place] [address] [place] [address] [place] [address] Kervin Fair MD [address] [place], [place] [address] Ventricular tachycardia (Multi) 04/14/2025 11:00 AM EDT - 04/14/2025 3:00 PM EDT Surgery [facility] [place] [address] [facility] 3529 [place] [address] Kervin Fair MD [address] [place], [place] [address] [place] [[id number] (CPT )] 07/14/2025 1:00 PM EDT Office Visit [facility] 703 [facility] 250 [place] [address] Oscar Rodriguez MD 3 [facility] 2, Steve [address] [place] [address] 09/26/2025 12:20 PM EST Appointment [facility] [address] [place] [address] 09/26/2025 1:00 PM EST Office Visit [facility] 125 E [facility] 320 [place] [address] June Preston MD 125 E [facility] Medical Office [facility], [facility] 305 [place] [address] Scheduled Orders Name Type Priority Associated Diagnoses [...] documented as of this encounter Care Teams Evaluation Assistant Relationship Specialty Start Date End Date Tremaine West DO [address]10 [place], DO Steve [address] [place] [address] PCP - General 01/22/22 11/05/23 Generic Provider, No Assigned Pcp, [place] [address] PCP - General Assembly Operator 08/08/24 11/10/24 Conchita Aden MD [address] [place] [address] PCP - General Family Medicine 11/11/24 Ania Brothers, LEAD DATABASE ADMINISTRATOR-ELECTRIC INSTALLER 1610 [facility] Tremaine West, DO Steve [address] [place] [address] Nurse Practitioner Cardiology 09/30/23 02/16/24 June Preston MD 1610 [facility] Tremaine West DO [address] [place] [address] Dental Equipment Technician Cardiology 09/30/23 02/16/24 Sol Keita, CIRCULATION LIBRARIAN Horse Racing ManagerCoal Passer 02/19/24 05/17/24 June Preston MD 125 E [facility], [address] [place] [address] Consulting Physician Cardiology 02/19/24 02/29/24 Oscar Rodriguez MD [address] [place] [address] 2, [address] [place] [address] Consulting Physician Cardiology 02/19/24 02/29/24 Diane Min, heavy equipment sales associateCoal Passer 09/05/24 12/06/24 June Preston MD 125 [address] [facility] Bl, [address] [place] [address] Dental Equipment Technician Electrophysiology 09/13/24 Diane Min, heavy equipment sales associateCoal Passer 01/16/25 01/31/25 documented as of this encounter
[2025-04-10 16:39] LABS: Internal Control Within Normal Limits; Occult Blood Positive
[2025-04-10 17:10] LABS: C. Difficile PCR NEGATIVE
[2025-04-12 11:12] LABS: Cryptosporidium EIA Negative (Negative); Giardia lamblia Ag, EIA Negative (Negative)
[2025-04-13 11:13] LABS: Lactoferrin, Fecal, Quant. <1.00 ug/mL(g) (0.00-7.24)
== END 2025-04-08 13:39 | disposition home or self-care (01) ==
LOC: LAB 13:38
PROVIDERS: PCP Nurse Practitioner Family; Visit Provider Nurse Practitioner Family
DX: R19.7 Diarrhea, unspecified (principal)
CPT/HCPCS: 83631; 87493; G0328

== ENCOUNTER 2025-04-09 11:06 | Emergency (ER) | payer MEDICARE, MEDICAID, SELFPAY ==
[2025-04-09] VITALS (11 sets, daily range): BP systolic 93–103; BP diastolic 50–69; PULSE 62–69; TEMP 36.3; O2SAT 92–98; BMI 23.0
--- NOTE | 2025-04-09 11:34 | ED.GENADUL1 ---
HPI HPI - General Adult General Chief complaint: Abdominal Pain Stated complaint: BLACK STOOLS STOMACH ACHE DIZZINESS Time Seen by Provider: 04/09/25 11:09 Source: patient Mode of arrival: walk-in History of Present Illness HPI narrative: 64-year-old female presents for diarrhea and black stools. She has had this for several days and she has been taking Pepto-Bismol. No fever or vomiting. She is on Xarelto. She does not complain to me of abdominal pain. Related Data Home Medications ?Medication ?Instructions ?Recorded ?Confirmed amiodarone 200 mg tablet 200 mg PO Q24H 10/22/24 04/09/25 lansoprazole 30 mg capsule,delayed 30 mg PO .ACB 10/22/24 04/09/25 release meclizine 25 mg tablet 25 mg PO BID PRN dizziness 10/22/24 04/09/25 melatonin 5 mg tablet 5 mg PO DAILY 10/22/24 04/09/25 metoprolol succinate 25 mg 25 mg PO DAILY 10/22/24 04/09/25 tablet,extended release 24 hr mexiletine 150 mg capsule 150 mg PO Q8H 10/22/24 04/09/25 ranolazine 500 mg tablet,extended 500 mg PO Q12H 10/22/24 04/09/25 release,12 hr rosuvastatin 10 mg tablet 10 mg PO DAILY 10/22/24 04/09/25 magnesium 200 mg tablet 200 mg PO BID 10/30/24 04/09/25 lisinopril 5 mg tablet 5 mg PO .QD 10/31/24 04/09/25 quetiapine 100 mg tablet 200 mg PO .QHS 10/31/24 04/09/25 baclofen 10 mg tablet 10 mg PO TID PRN muscle spasm 02/01/25 04/09/25 ferrous sulfate 324 mg (65 mg mg PO 04/09/25 iron) tablet,delayed release rivaroxaban 10 mg tablet (Xarelto) 10 mg PO Q24H 04/09/25 04/09/25 ropinirole 1 mg tablet 1 mg PO HS 04/09/25 04/09/25 sertraline 25 mg tablet mg 04/09/25 spironolactone 25 mg tablet mg 04/09/25 Previous Rx's ?Medication ?Instructions ?Recorded lorazepam 0.5 mg tablet (Ativan) 0.5 mg PO Q8H PRN twitching 4 days 03/25/25 #14 tabs methylprednisolone 4 mg tablets in See Rx Instructions .Route 03/25/25 a dose pack (Medrol (Mat)) .COMPLEX #21 ea Allergies Allergy/AdvReac Type Severity Reaction Status Date / Time No Known Drug Allergies Allergy Verified 04/09/25 11:11 Opioid HPI Opioid Management Most Recent Opioid Data: Last Pain Scale 7 03/26/25, 06:06 Last Pain Intensity 0 10/31/24, 09:34 Last ORT Total Score 8 10/30/24, 17:53 Last ORT Risk Category High Risk 10/30/24, 17:53 Review of Systems ROS Narrative A ten point review of systems is negative except as noted above. PFSH PFSH Medical History Pacemaker ?Z95.0 - Presence of cardiac pacemaker (ICD-10) Acute GI bleeding ?K92.2 - Gastrointestinal hemorrhage, unspecified (ICD-10) Elevated INR ?R79.1 - Abnormal coagulation profile (ICD-10) Pneumonia ?J18.9 - Pneumonia, unspecified organism (ICD-10) Dyspnea ?R06.00 - Dyspnea, unspecified (ICD-10) Dizziness ?R42 - Dizziness and giddiness (ICD-10) Diabetes ?E11.9 - Type 2 diabetes mellitus without complications (ICD-10) Bipolar 1 disorder, depressed ?F31.9 - Bipolar disorder, unspecified (ICD-10) HTN (hypertension) ?I10 - Essential (primary) hypertension (ICD-10) High cholesterol ?E78.00 - Pure hypercholesterolemia, unspecified (ICD-10) Afib ?I48.91 - Unspecified atrial fibrillation (ICD-10) Surgical History H/O tubal ligation ?Z98.51 - Tubal ligation status (ICD-10) Hx of cholecystectomy ?Z90.49 - Acquired absence of other specified parts of digestive tract (ICD-10) Status post other internal cardiac defibrillator procedure ?Z95.0 - Presence of cardiac pacemaker (ICD-10) History of bowel resection ?Z90.49 - Acquired absence of other specified parts of digestive tract (ICD-10) Family History Father Heart attack Brother Heart attack Sister Heart attack Diabetes Son Diabetes Social History Within the past year, how often did you have a drink containing alcohol: never Within the past year, how often did you have six or more drinks on one occasion: never Score interpretation: A score less than 3 is consistent with normal alcohol consumption. 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 General: The patient appears in no apparent distress. Skin: Warm, dry, no pallor noted. There is no rash noted. Head: Normocephalic, atraumatic Eye: Normal conjunctiva, no drainage Ears, Nose, Mouth, and Throat: oral mucosa is moist. Nares patent. Cardiovascular: Regular Rate and Rhythm, not tach Respiratory: Patient is in no distress, no accessory muscle use, lungs are clear to auscultation, no wheezing, rales or rhonchi Back: non-tender GI: Soft and nontender Musculoskeletal: The patient has no evidence of calf tenderness, no pitting edema, symmetrical pulses noted bilaterally Neurological: A&O, normal speech Psychiatric: Cooperative Constitutional Vital Signs, click to edit/add: Last Vital Signs Temp 97.4 F L 04/09/25 11:11 Pulse 04/09/25 11:11 Resp 18 04/09/25 11:11 BP 103/69 04/09/25 11:11 Pulse Ox 96 04/09/25 11:11 O2 Del Method Room Air 04/09/25 11:11 Course Vital Signs Vital signs: Vital Signs Temperature 97.4 F L 04/09/25 11:11 Pulse Rate 69 04/09/25 11:11 Respiratory Rate 18 04/09/25 11:11 Blood Pressure 103/69 04/09/25 11:11 Pulse Oximetry 96 04/09/25 11:11 Oxygen Delivery Method Room Air 04/09/25 11:11 Temperature 97.4 F L 04/09/25 11:11 Pulse Rate 69 04/09/25 11:11 Respiratory Rate 18 04/09/25 11:11 Blood Pressure 103/69 04/09/25 11:11 Pulse Oximetry 96 04/09/25 11:11 Oxygen Delivery Method Room Air 04/09/25 11:11 Medical Decision Making MDM Narrative Medical decision making narrative: Her stool is heme-negative. She has been taking Pepto-Bismol and this appears to have caused the dark stool. She was reassured and discharged home. WBC also normal. She has a benign abdominal exam. Treatment diagnosis and follow-up were discussed with the patient. Differential Diagnosis Differential Diagnosis: GI bleed, diarrhea, gastroenteritis Lab Data Lab results reviewed: Yes I reviewed the patient's lab results Labs: Lab Results 04/09/25 04/09/25 Range/Units 11:22 11:28 WBC 9.9 (4.0-11.0) 10^3/uL RBC 3.84 L (4.20-5.40) 10^6/uL Hgb 8.6 L (12.0-16.0) g/dL Hct 27.4 L (36.0-48.0) % MCV 71.4 L (81.0-99.0) fL MCH 22.4 L (26.7-34.0) pg MCHC 31.4 (29.9-35.2) g/dL RDW 20.8 H (11.0-15.0) % Plt Count 691 H (150-450) 10^3/uL MPV 10.2 (9.5-13.5) fL Neut % (Auto) 56.1 (43.0-75.0) % Lymph % (Auto) 35.6 (20.5-60.0) % Crisp % (Auto) 4.8 (1.7-12.0) % Eos % (Auto) 2.3 (0.9-7.0) % Baso % (Auto) 0.8 (0.2-2.0) % Neut # (Auto) 5.6 (1.4-6.5) 10^3/uL Lymph # (Auto) 3.5 (1.2-3.8) 10^3/uL Crisp # (Auto) 0.5 (0.3-0.8) 10^3/uL Eos # (Auto) 0.2 (0.0-0.7) 10^3/uL Baso # (Auto) 0.1 (0.0-0.1) 10^3/uL Abs Immat Gran (auto) 0.04 H (0.00-0.03) 10^3/uL Imm/Tot Granulo (auto) 0.4 (0.0-0.5) % Sodium 139 (136-145) mmol/L Potassium 4.3 (3.5-5.1) mmol/L Chloride 103 (98-107) mmol/L Carbon Dioxide 25.7 (21.0-32.0) mmol/L Anion Gap 14.6 BUN 7.0 (7.0-18.0) mg/dL Creatinine 0.67 (0.55-1.02) mg/dL Est GFR ( Amer) >60 (>=60 mL/min/1.73m^2) Est GFR (Non-Af Amer) >60 (>=60 mL/min/1.73m^2) BUN/Creatinine Ratio 10.4 Glucose 126 H (74-106) mg/dL Calcium 8.6 (8.5-10.1) mg/dL Stool Occult Blood Negative ECG Data Attestation: I personally reviewed and interpreted this ECG as follows: (EKG on my interpretation shows normal sinus rhythm with a rate of 67 and no acute change.) Discharge Plan Discharge Chief Complaint: Abdominal Pain Clinical Impression: Diarrhea Patient Disposition: Home, Self-Care Time of Disposition Decision: 12:03 Condition: Good Mode of Transportation: Private Vehicle Prescriptions / Home Meds: No Action baclofen 10 mg tablet 10 mg PO TID PRN (Reason: muscle spasm) methylprednisolone [Medrol (Mat)] 4 mg tablets,dose pack See Rx Instructions .Route .COMPLEX Qty: 21 0RF Rx Instructions: Take as directed lorazepam [Ativan] 0.5 mg tablet 0.5 mg PO Q8H PRN (Reason: twitching) 4 Days Qty: 14 0RF ferrous sulfate 324 mg (65 mg iron) tablet,delayed release (DR/EC) PO Xarelto 10 mg tablet 10 mg PO Q24H ropinirole 1 mg tablet 1 mg PO HS spironolactone 25 mg tablet sertraline 25 mg tablet amiodarone 200 mg tablet 200 mg PO Q24H lansoprazole 30 mg capsule,delayed release(DR/EC) 30 mg PO .ACB meclizine 25 mg tablet 25 mg PO BID PRN (Reason: dizziness) melatonin 5 mg tablet 5 mg PO DAILY metoprolol succinate 25 mg tablet extended release 24 hr 25 mg PO DAILY mexiletine 150 mg capsule 150 mg PO Q8H ranolazine 500 mg tablet extended release 12 hr 500 mg PO Q12H rosuvastatin 10 mg tablet 10 mg PO DAILY magnesium 200 mg tablet 200 mg PO BID quetiapine 100 mg tablet 200 mg PO .QHS lisinopril 5 mg tablet 5 mg PO .QD Print Language: Uzbek Instructions: Acute Diarrhea (ED) Referrals: JOVANI HANSON [Primary Care Provider, Unknown] - 1 week
[2025-04-09 11:43] LABS: Basophils Absolute Auto 0.1 10^3/uL (0.0-0.1); Basophils Percent Auto 0.8 % (0.2-2.0); Eosinophils Absolute Auto 0.2 10^3/uL (0.0-0.7); Eosinophils Percent Auto 2.3 % (0.9-7.0); Hematocrit 27.4 % (36.0-48.0); Hemoglobin 8.6 g/dL (12.0-16.0); Immature Granulocytes Abs Auto 0.04 10^3/uL (0.00-0.03); Immature Granulocytes Pct Auto 0.4 % (0.0-0.5); Lymphocytes Absolute Auto 3.5 10^3/uL (1.2-3.8); Lymphocytes Percent Auto 35.6 % (20.5-60.0); Mean Corpuscular HGB Conc 31.4 g/dL (29.9-35.2); Mean Corpuscular Hemoglobin 22.4 pg (26.7-34.0); Mean Corpuscular Volume 71.4 fL (81.0-99.0); Mean Platelet Volume 10.2 fL (9.5-13.5); Monocytes Absolute Auto 0.5 10^3/uL (0.3-0.8); Monocytes Percent Auto 4.8 % (1.7-12.0); Neutrophils Absolute Auto 5.6 10^3/uL (1.4-6.5); Neutrophils Percent Auto 56.1 % (43.0-75.0); Platelet Count 691 10^3/uL (150-450); Red Blood Count 3.84 10^6/uL (4.20-5.40); Red Cell Distribution Width 20.8 % (11.0-15.0); White Blood Count 9.9 10^3/uL (4.0-11.0)
[2025-04-09 11:43] LABS: Internal Control Within Normal Limits; Occult Blood Negative
[2025-04-09 11:53] LABS: Anion Gap 14.6; BUN Creatinine Ratio 10.4; Calcium 8.6 mg/dL (8.5-10.1); Carbon Dioxide 25.7 mmol/L (21.0-32.0); Chloride 103 mmol/L (98-107); Estimated GFR (African America >60 (>=60 mL/min/1.73m^2); Estimated GFR (Non-African Ame >60 (>=60 mL/min/1.73m^2); Glucose 126 mg/dL (74-106); Potassium 4.3 mmol/L (3.5-5.1); Sodium 139 mmol/L (136-145)
--- NOTE | 2025-04-09 14:41 | ECG_ITS ---
[facility] Test Date: 2025-04-09 Pat Name: KING MORENO Department: Room: - Gender: Female Animal Cruelty Investigator: : 1960 Requested By: 1030 Order Number: [id number] Reading MD: CROW MORRISON M.D. Measurements Intervals Superior Rate: 67 P: 66 CA: 146 QRS: 40 QRSD: 90 T: 90 QT: 426 QTc: 441 Interpretive Statements 1100 Sinus rhythm 3433 Septal myocardial infarction, probably old 4068 Nonspecific Twave abnormality Abnormal ECG Compared to ECG 03/26/2025 00:05:49 No significant changes Electronically Signed On 04-09-2025 20:05:26 EDT by CROW MORRISON M.D.
== END 2025-04-09 12:14 | disposition home or self-care (01) ==
PROVIDERS: Emergency Provider Emergency Medicine; PCP Nurse Practitioner Family
DX: R19.7 Diarrhea, unspecified (principal)
CPT/HCPCS: 36415; 80048; 85025; 93005; 99283; G0328

== ENCOUNTER 2025-04-10 15:12 | Emergency (ER) | payer MEDICARE, MEDICAID, SELFPAY ==
--- OUTSIDE RECORDS SUMMARY | 2023-05-28 09:36 | XMS_ITS | Continuity of Care Document ---
Author Organization [facility] Address [address] [place] [address] Phone Care Team Providers Care Ems Director Name Role Phone Paolo Olivo Unavailable Unavailable [...] Limited Oral Eval Intraoral-periapical 1st Film 4 [id number] Additional Jan [facility] FP MEDICAID Condoms FLU VACCINE, 3 YRS & >, IM NEW FP MEDICAID URINALYSIS, NONAUTO W/SCOPE SPECIMEN HANDLING FLU VACCINE, 3 YRS & >, IM Advance Directives Directive Yes / No Effective Date File Name No Information Encounters Encounter Description Practice Location Reason(s) For Visit Diagnoses Date Provider Providers Copied on Encounter [facility], [address] [place] [address], [id number] , [place] tel:[phone] [facility] No Information 3 Visci DO Paolo. [address] [place] [address], [id number], [place]. tel:[phone] OFFICE/OUTPA TIENT VISIT, EST [facility], [address] [place] [address], [id number] , tel:[phone] [facility] med refills (chief complaint) Body mass index [BMI] 36.0-36.9, adultCOPD w/ acute exacerbationLow back pain, unspecified 1 [facility] DO Max. [address], [place], [id number], [place]. tel:[phone] [facility], [address], [place], [id number] , [place] tel:[phone] [facility] lab draw (chief complaint) Chronic obstructive pulmonary disease, unspecified 1 [facility] DO Max. [address], [place], [id number], [place]. tel:[phone] OFFICE/OUTPA TIENT VISIT, [facility], [address] [place] [address], [id number] , [place] tel: [phone] [facility] Med Refills (chief complaint)fa tigue (chief complaint) Body mass index [BMI] 36.0-36.9, adultAnxiety disorder, unspecifiedChron ic obstructive pulmonary disease, unspecifiedCOPD w/ acute exacerbationIron deficiency anemia due to chronic blood lossType 2 diabetes mellitus without complications 1 [facility] DO Max. [address] [place] [address], [id number], [place]. tel:[phone] OFFICE/OUTPA TIENT VISIT, [facility], [address] [place] [address], [id number] , [place] tel:[phone] [facility] med refill (chief complaint) Body mass index [BMI] 36.0-36.9, adultCarpal tunnel syndrome, leftCervicalgiaM yash problem Sep- 1 [facility] DO Max. [address] [place] [address], [id number], [place]. tel:[phone] OFFICE/OUTPA TIENT VISIT, [facility], [address] [place] [address], [id number] , [place] tel:[phone] [facility] A1C & Med Refills (chief complaint)di abetes (chief complaint) Body mass index [BMI] 36.0-36.9, adultType 2 diabetes mellitus with hyperglycemiaAnx iety disorder, unspecifiedCervi calgia 1 [facility] [address], [place], [id number], [place]. tel:[phone] OFFICE/OUTPA TIENT VISIT, [facility], [address], [place], [id number] , [place] tel: [phone] [facility] Med Refills (chief complaint)Mu sculoskeleta l pain (chief complaint) Anxiety disorder, unspecifiedCervi calgiaUnspecifie d sprain of left wrist, initial encounterBody mass index [BMI] 36.0-36.9, adult 1 [facility]. [address] [place] [address], [id number], [place]. tel:[phone] OFFICE/OUTPA TIENT VISIT, [facility], [address] [place] [address], [id number] , [place] tel: [phone] [facility] med refill (chief complaint)fa tigue (chief complaint) Body mass index [BMI] 36.0-36.9, adultType 2 diabetes mellitus with other circulatory complicationsAnx iety disorder, unspecified 1 [facility]. [address] [place] [address], [id number], [place]. tel:[phone] OFFICE/OUTPA TIENT VISIT, [facility], [address], [place], [id number] , [place] tel: [phone] [facility] med refill (chief complaint)Me curt loss (chief complaint) Type 2 diabetes mellitus with other circulatory complicationsBod y mass index [BMI] 35.0-35.9, adultAnxiety disorder, unspecifiedUrina ry frequencyMemory problem 1 [facility] [address] [place] [address], [id number], [place]. tel:[phone] OFFICE/OUTPA TIENT VISIT, [facility], [address] [place] [address], [id number] , [place] tel: [phone] [facility] med Refills (chief complaint)fa tigue (chief complaint) Body mass index [BMI] 35.0-35.9, adultAnemia, unspecified typeEssential (primary) hypertensionIron deficiency anemia due to chronic blood loss 0 1 [facility] DO Max. [address] [place] [address], [id number], [place]. tel:[phone] OFFICE/OUTPA TIENT VISIT, [facility], [address] [place] [address], [id number] , [place] tel: [phone] [facility] med refill (chief complaint)Co ugh (chief complaint) Chronic obstructive pulmonary disease, unspecifiedAnxie ty disorder, unspecifiedOther cervical disc degeneration, unspecified cervical region 0 1 [facility] DO Max. [address] [place] [address], [id number], [place]. tel:[phone] OFFICE/OUTPA TIENT VISIT, [facility], [address] [place] [address], [id number] , [place] tel: [phone] [facility] A1C (chief complaint)di abetes (chief complaint) Type 2 diabetes mellitus with other circulatory complicationsAnx iety disorder, unspecifiedLumba r back pain 0 1 [facility] DO Max. [address] [place] [address], [id number], [place]. tel:[phone] OFFICE/OUTPA TIENT VISIT, [facility], [address] [place] [address], [id number] , [place] tel: [phone] [facility] Med Refills (chief complaint)GE RD (chief complaint) Body mass index [BMI] 34.0-34.9, adultChronic pulmonary embolismGastroin testinal hemorrhage associated with gastric ulcerType 2 diabetes mellitus with hyperglycemiaOth er cervical disc degeneration, unspecified cervical region 1 [facility] DO Max. [address] [place] [address], [id number], [place]. tel:[phone] OFFICE/OUTPA TIENT VISIT, [facility], [address], [place], [id number] , [place] tel: [phone] [facility] med refill (chief complaint) Carpal tunnel syndrome of right wristAnxiety disorder, unspecifiedCervi calgia 3 0-202 0 [facility] DO Max. [address], [place], [id number], [place]. tel:[phone] OFFICE/OUTPA TIENT VISIT, [facility], [address], [place], [id number] , [place] tel: [phone] [facility] Med Refills (chief complaint)ba ck pain (chief complaint) Body mass index [BMI] 32.0-32.9, adultOther cervical disc degeneration, unspecified cervical regionAnxiety disorder, unspecifiedCOPD w/ acute exacerbation 2- 0 [facility] DO Max. [address] [place] [address], [id number], [place]. tel:[phone] OFFICE/OUTPA TIENT VISIT, [facility], [address] [place] [address], [id number] , [place] tel: [phone] [facility] A1C & Med Refills (chief complaint)di abetes (chief complaint) Body mass index [BMI] 32.0-32.9, adultType 2 diabetes mellitus without complicationsAnx iety disorder, unspecifiedOther cervical disc degeneration, unspecified cervical region 4 0 [facility] DO Max. [address] [place] [address], [id number], [place]. tel:[phone] OFFICE/OUTPA TIENT VISIT, [facility], [address] [place] [address], [id number] , [place] tel: [phone] [facility] Med Refills (chief complaint) Body mass index [BMI] 32.0-32.9, adultAnxiety disorder, unspecifiedFolli culitisCervicalg ia Aug- 7-202 0 [facility] DO Max. [address] [place] [address], [id number], [place]. tel:[phone] OFFICE/OUTPA TIENT VISIT, [facility], [address] [place] [address], [id number] , [place] tel: [phone] [facility] f/u hospital (chief complaint)fa tigue (chief complaint) Gastrointestinal hemorrhage associated with gastric ulcerIron deficiency anemia due to chronic blood lossAnxiety disorder, unspecified Jul- 0 [facility] DO Max. [address] [place] [address], [id number], [place]. tel:[phone] OFFICE/OUTPA TIENT VISIT, [facility], [address] [place] [address], [id number] , [place] tel: [phone] [facility] A1C & MED REFILLS (chief complaint)Di zziness (chief complaint)di abetes (chief complaint) Body mass index (BMI) 32.0-32.9, adultType 2 diabetes mellitus without complicationsDiz ziness of unknown cause 0 [facility]. [address] [place] [address], [id number], [place]. tel:[phone] OFFICE/OUTPA TIENT VISIT, [facility], [address] [place] [address], [id number] , [place] tel: [phone] [facility] Med Refills (chief complaint)GE RD (chief complaint) Anxiety disorder, unspecifiedDizzi ness of unknown causeGERD w/o esophagitis 0 [facility] DO Max. [address] [place] [address], [id number], [place]. tel:[phone] OFFICE/OUTPA TIENT VISIT, [facility], [address] [place] [address], [id number] , [place] tel: [phone] [facility] med refills (chief complaint)ba ck pain (chief complaint) Body mass index (BMI) 32.0-32.9, adultLumbar back painType 2 diabetes mellitus without complicationsDiz ziness of unknown causeAnxiety disorder, unspecified 0 [facility] DO Max. [address], [place], [id number], [place]. tel:[phone] OFFICE/OUTPA TIENT VISIT, [facility], [address], [place], [id number] , [place] tel: [phone] [facility] A1C & Med refills (chief complaint)An xiety (chief complaint) Body mass index (BMI) 32.0-32.9, adultType 2 diabetes mellitus without complicationsAnx iety disorder, unspecifiedOther cervical disc degeneration, unspecified cervical regionFolliculit isEssential (primary) hypertension 0 [facility] DO Max. [address], [place], [id number], [place]. [phone] OFFICE/OUTPA TIENT VISIT, [facility], [address] [place] [address], [id number] , [place] tel: [phone] [facility] Anxiety (chief complaint) Anxiety disorder, unspecified 0 [facility] DO Max. [address], [place], [id number], [place]. 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 [address], [place], [id number], [place]. tel:[phone] OFFICE/OUTPA TIENT VISIT, [facility], [address], [place], [id number] , [place] tel: [phone] [facility] finger infection (chief complaint)Ra sh (chief complaint) Body mass index (BMI) 32.0-32.9, adultHerpetic whitlowEssential (primary) hypertensionAnxi ety disorder, unspecifiedDizzi ness of unknown cause 0 [facility] DO Max. [address], [place], [id number], [place]. tel:[phone] OFFICE/OUTPA TIENT VISIT, [facility], [address], [place], [id number] , [place] tel: [phone] [facility] Med Refills & A1C (chief complaint)Ra sh (chief complaint) Type 2 diabetes mellitus without complicationsAnx iety disorder, unspecifiedChron ic obstructive pulmonary disease, unspecified 0 [facility] DO Max. [address] [place] [address], [id number], [place]. tel:[phone] [facility], [address] [place] [address], [id number] , [place] tel: [phone] [facility] RANDOM UDS/PILL COUNT (chief complaint) No Information 9 [facility] DO Max. [address] [place] [address], [id number], [place]. tel:[phone] OFFICE/OUTPA TIENT VISIT, [facility], [address] [place] [address], [id number] , [place] tel: [phone] [facility] Med refills (chief complaint)DR WHITLEY DANG (chief complaint) Body mass index (BMI) 32.0-32.9, adultAnxiety disorder, unspecifiedKidne y painDizziness of unknown cause 9 [facility] DO Max. [address] [place] [address], [id number], [place]. tel:[phone] OFFICE/OUTPA TIENT VISIT, [facility], [address] [place] [address], [id number] , [place] tel:[phone] [facility] 4 WEEK F/U (chief complaint)Di zziness (chief complaint) Body mass index (BMI) 31.0-31.9, adultDizziness of unknown causeLumbar back painType 2 diabetes mellitus with hyperglycemia 9 [facility]. [address] [place] [address], [id number], [place]. tel:[phone] OFFICE/OUTPA TIENT VISIT, [facility], [address] [place] [address], [id number] , [place] tel: [phone] [facility] Med refills & A1C (chief complaint)Di zziness (chief complaint) Body mass index (BMI) 31.0-31.9, adultDizziness of unknown causeAnxiety disorder, unspecifiedType 2 diabetes mellitus with hyperglycemia [address], [id number], [place]. tel:[phone] OFFICE/OUTPA TIENT VISIT, [facility], [address] [place] [address], [id number] , [place] tel: [phone] [facility] 6 WK F/U (chief complaint)DR IGNACIO SCREEN (chief complaint) Pain in leg, unspecifiedBody mass index (BMI) 31.0-31.9, adultAnxiety disorder, unspecifiedChron ic pulmonary embolism [address], [id number], [place]. tel:[phone] OFFICE/OUTPA TIENT VISIT, [facility], [address] [place] [address], [id number] , [place] tel: [phone] [facility] follow up (chief complaint)hy pertension (chief complaint)dr ignacio screen (chief complaint) Body mass index (BMI) 31.0-31.9, adultEncntr for general adult medical exam w/o abnormal findingsEssentia l (primary) hypertensionType 2 diabetes mellitus without complicationsAnx iety disorder, unspecified 9 [facility]. [address] [place] [address], [id number], [place]. tel:[phone] OFFICE/OUTPA TIENT VISIT, [facility], [address], [place], [id number] , [place] tel: [phone] [facility] F/U HOSPITAL ADMITION (chief complaint)DR WHITLEY DANG (chief complaint) Body mass index (BMI) 31.0-31.9, adultAnxiety disorder, unspecifiedGERD w/o esophagitisHerpe tic shashi 9 [facility]. [address] [place] [address], [id number], [place]. tel:[phone] OFFICE/OUTPA TIENT VISIT, [facility], [address], [place], [id number] , [place] tel: [phone] [facility] med refill (chief complaint) Body mass index (BMI) 31.0-31.9, adultAnxiety disorder, unspecifiedType 2 diabetes mellitus without complications 9 [facility]. [address] [place] [address], [id number], [place]. tel:[phone] [facility], [address] [place] [address], [id number] , [place] tel: [phone] [facility] med refills (chief complaint) Body mass index (BMI) 31.0-31.9, adultCellulitis and abscess of finger, unspecifiedCutan eous abscess of unspecified handBipolar disorder 9 [facility]. [address], [place], [id number], [place]. tel:[phone] [facility], [address] [place] [address], [id number] , [place] tel: [phone] [facility] Abnormal Mammogram 9 [facility]. [address] [place] [address], [id number], [place]. tel:[phone] [facility], [address] [place] [address], [id number] , [place] tel: [phone] [facility] Medication refills (chief complaint)A1 C (chief complaint) Body mass index (BMI) 31.0-31.9, adultType 2 diabetes mellitus without complicationsLum bar assistant pain Jan- 9 [facility]. [address], [place], [id number], [place]. tel:[phone] [facility], [address] [place] [address], [id number] , [place] tel: [phone] [facility] Abnormal Mammogram Jan- 9 [facility]. [address] [place] [address], [id number], [place]. tel:[phone] OFFICE/OUTPA TIENT VISIT, EST [facility], [address] [place] [address], [id number] , [place] tel: [phone] [facility] sickness (chief complaint) Body mass index (BMI) 31.0-31.9, adultAcute non-recurrent maxillary sinusitisCOPD w/ acute exacerbationAnxi ety disorder, unspecifiedOther cervical disc degeneration, unspecified cervical region Dec- 9 [facility]. [address], [place], [id number], [place]. tel:[phone] [facility], [address] [place] [address], [id number] , [place] tel: [phone] [facility] Abnormal MammogramUnspeci fied urinary incontinence 9 [facility]. [address] [place] [address], [id number], [place]. 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 [address], [place], [id number], [place]. tel:[phone] [facility], [address], [place], [id number] , [place] tel: [phone] [facility] f/u abdominal pain (chief complaint) Body mass index (BMI) 32.0-32.9, adultHx pulmonary embolismHernia of abdominal wallAnxiety disorder, unspecified 9 [facility] DO Max. [address], [place], [id number], [place]. tel:[phone] [facility], [address] [place] [address], [id number] , [place] tel: [phone] [facility] abdomen issues (chief complaint) Right lower quadrant abdominal painEncounter for screening for Ca of colon 9 [facility]. [address] [place] [address], [id number], [place]. tel:[phone] OFFICE/OUTPA TIENT VISIT, EST [facility], [address], [place], [id number] , [place] tel: [phone] [facility] rib pain when breathing (chief complaint) Body mass index (BMI) 31.0-31.9, adultRib pain on right sideLumbar back painRight hip pain 9 [facility]aljit Wilcox. [address] [place] [address], [id number], [place]. tel:[phone] [facility], [address] [place] [address], [id number] , [place] tel:[phone] [facility] med refill (chief complaint) Right hip painLumbar back painAnxiety disorder, unspecified 9 [facility]alj[facility] Wilcox. [address] [place] [address], [id number], [place]. tel:[phone] OFFICE/OUTPA TIENT VISIT, [facility], [address] [place] [address], [id number] , [place] tel: [phone] [facility] bladder infection (chief complaint) Oliguria 8 Shahzad Cobb. [address] [place] [address], [id number], [place]. tel:[phone] OFFICE/OUTPA TIENT VISIT, [facility], [address] [place] [address], [id number] , [place] tel: [phone] [facility] Medication refill (chief complaint) Anxiety disorder, unspecifiedBipol ar disorderVertigo 8 Shahzad Cobb. [address] [place] [address], [id number], [place]. tel:[phone] [facility], [address] [place] [address], [id number] , [place] tel: [phone] [facility] medication refill (chief complaint)br onchitis (chief complaint)De nnison: (chief complaint) Chronic obstructive pulmonary disease, unspecifiedCough Type 2 diabetes mellitus without complicationsEss ential (primary) hypertension 8 Margarito Horne. [address] [place] [address], [id number], [place]. tel:[phone] [facility], [address] [place] [address], [id number] , [place] tel: [phone] [facility] sick (chief complaint)me d refill (chief complaint)dE NNISON: (chief complaint) CoughChronic obstructive pulmonary disease, unspecifiedType 2 diabetes mellitus without complicationsEss ential (primary) hypertension 8 Margarito Horne. [address] [place] [address], [id number], [place]. tel:[phone] [facility], [address] [place] [address], [id number] , [place] tel: [phone] [facility] med refill (chief complaint)De nnison: (chief complaint) Focal (segmental) acute (reversible) ischemia of small intestineAnxiety disorder, unspecifiedBipol ar disorderChronic obstructive pulmonary disease, unspecifiedType 2 diabetes mellitus without complicationsNic otine dependence, unspecified, uncomplicatedEss ential (primary) hypertension 8 Margarito Horne. [address] [place] [address], [id number], . tel:[phone] [facility], [address] [place] [address], [id number] , [place] tel: [phone] [facility] med refills (chief complaint)Le ft thight (chief complaint) Meralgia paresthetica, left lower limbAnxiety disorder, unspecifiedBipol ar disorder 7 Shahzad Cobb. [address] [place] [address], [id number], . tel:[phone] OFFICE/OUTPA TIENT VISIT, [facility], [address] [place] [address], [id number] , [place] tel: [phone] [facility] R thigh pain (chief complaint)di scuss medication (chief complaint) Anxiety disorder, unspecifiedBipol ar disorderMeralgia paresthetica, left lower limb 7 Shahzad Cobb. [address] [place] [address], [id number], [place]. tel:[phone] [facility], [address] [place] [address], [id number] , [place] tel: [phone] [facility] HgbA1C (chief complaint)me dication refill (chief complaint) Anxiety disorder, unspecifiedBipol ar disorderCervical giaOther cervical disc degeneration, unspecified cervical regionSpinal stenosis, cervical regionPain in left shoulderType 2 diabetes mellitus with hyperglycemiaGER D w/o esophagitis 7 Shahzad Cobb. [address] [place] [address], [id number], [place]. tel:[phone] OFFICE/OUTPA TIENT VISIT, [facility], [address], [place], [id number] , [place] tel: [phone] [facility] follow up (chief complaint) Chronic pulmonary embolismCervical giaOther cervical disc degeneration, unspecified cervical regionSpinal stenosis, cervical region 7 Shahzad Cobb. [address] [place] [address], [id number], [place]. tel:[phone] OFFICE/OUTPA TIENT VISIT, [facility], [address], [place], [id number] , [place] tel: [phone] [facility] L arm/shoulder pain (chief complaint) CervicalgiaOther cervical disc degeneration, unspecified cervical regionSpinal stenosis, cervical region 6 Shahzad Cobb. [address] [place] [address], [id number], [place]. tel:[phone] OFFICE/OUTPA TIENT VISIT, [facility], [address], [place], [id number] , [place] tel: [phone] [facility] severe leg pain (chief complaint) Restless leg syndromePain in leg, unspecifiedType 2 diabetes mellitus with hyperglycemiaSpi nal stenosis, cervical region 6 Shahzad Cobb. [address] [place] [address], [id number], [place]. tel:[phone] OFFICE/OUTPA TIENT VISIT, [facility], [address], [place], [id number] , [place] tel: [phone] [facility] knee pain (chief complaint) Pain in kneeRestless leg syndrome 6 Shahzad Cobb. [address] [place] [address], [id number], [place]. tel:[phone] [facility], [address] [place] [address], [id number] , [place] tel: [phone] [facility] spasms on right side (chief complaint) Muscle spasm of backCervicalgiaO ther cervical disc degeneration, unspecified cervical regionSpinal stenosis, cervical region 6 Shahzad Cobb. [address] [place] [address], [id number], [place]. tel:[phone] OFFICE/OUTPA TIENT VISIT, [facility], [address], [place], [id number] , [place] tel: [phone] [facility] med refill (chief complaint) Type 2 diabetes mellitus with hyperglycemiaCer vicalgiaOther cervical disc degeneration, unspecified cervical regionSpinal stenosis, cervical region 6 Shahzad Cobb. [address] [place] [address], [id number], [place]. tel:[phone] [facility], [address] [place] [address], [id number] , [place] tel: [phone] [facility] Vertigo 6 Shahzad Cobb. [address] [place] [address], [id number], [place]. tel:[phone] OFFICE/OUTPA TIENT VISIT, [facility], [address] [place] [address], [id number] , [place] tel: [phone] [facility] medication refill (chief complaint)kn ee pain (chief complaint) Bipolar disorder 6 Shahzad Cobb. [address] [place] [address], [id number], [place]. tel:[phone] OFFICE/OUTPA TIENT VISIT, [facility], [address] [place] [address], [id number] , [place] tel: [phone] [facility] medication refill (chief complaint)re stless leg syndrome (chief complaint) Restless leg syndromeCervical giaOther cervical disc degeneration, unspecified cervical regionSpinal stenosis, cervical region 6 Shahzad Cobb. [address] [place] [address], [id number], [place]. tel: [phone] OFFICE/OUTPA TIENT VISIT, [facility], [address], [place], [id number] , [place] tel: [phone] [facility] medication refills (chief complaint) Bipolar disorderAnxiety disorder, unspecified 0 6 Shahzad Cobb. [address], [place], [id number], [place]. tel:[phone] OFFICE/OUTPA TIENT VISIT, [facility], [address], [place], [id number] , [place] tel: [phone] [facility] medication refill (chief complaint) CervicalgiaOther cervical disc degeneration, unspecified cervical regionSpinal stenosis, cervical regionVertigo 6 Shahzad Cobb. [address] [place] [address], [id number], [place]. tel:[phone] OFFICE/OUTPA TIENT VISIT, [facility], [address], [place], [id number] , [place] tel: [phone] [facility] cough (chief complaint)me d refill (chief complaint) Type 2 diabetes mellitus with hyperglycemiaCOP D w/ acute exacerbationCerv icalgiaOther cervical disc degeneration, unspecified cervical regionSpinal stenosis, cervical region 6 Shahzad Cobb. [address] [place] [address], [id number], [place]. tel:[phone] OFFICE/OUTPA TIENT VISIT, [facility], [address], [place], [id number] , [place] tel: [phone] [facility] pain (chief complaint) CervicalgiaPain in left shoulder 5 Shahzad Cobb. [address] [place] [address], [id number], [place]. tel:[phone] OFFICE/OUTPA TIENT VISIT, [facility], [address] [place] [address], [id number] , [place] tel:[phone] [facility] cold (chief complaint) COPD w/ acute exacerbationCerv icalgiaOther cervical disc degeneration, unspecified cervical region Aug- 5 Shahzad Cobb. [address] [place] [address], [id number], [place]. tel:[phone] OFFICE/OUTPA TIENT VISIT, [facility], [address] [place] [address], [id number] , [place] tel: [phone] [facility] med refill (chief complaint) CervicalgiaDegen eration of cervical intervertebral discSpinal stenosis in cervical regionColostomy status 5 Shahzad Cobb. [address] [place] [address], [id number], [place]. tel:[phone] OFFICE/OUTPA TIENT VISIT, [facility], [address] [place] [address], [id number] , [place] tel: [phone] [facility] Medcation refills (chief complaint)St aple removal (chief complaint) AnxietyColostomy status 5 Shahzad Cobb. [address] [place] [address], [id number], [place]. [phone] OFFICE/OUTPA TIENT VISIT, [facility], [address] [place] [address], [id number] , [place] tel: [phone] [facility] med refill (chief complaint) Acute mesenteric ischemiaColostom y statusTrigger finger Apr- 5 Shahzad Cobb. [address] [place] [address], [id number], [place]. tel:[phone] OFFICE/OUTPA TIENT VISIT, [facility], [address] [place] [address], [id number] , [place] tel:[phone] [facility] Med refill (chief complaint) Abdomen painAttention to colostomyColosto my status 5 Shahzad Cobb. [address], [place], [id number], [place]. tel:[phone] OFFICE/OUTPA TIENT VISIT, [facility], [address], [place], [id number] , [place] tel: [phone] [facility] medication refill (chief complaint) Spinal stenosis in cervical regionColostomy status 5 Shahzad Cobb. [address], [place], [id number], [place]. tel:[phone] OFFICE/OUTPA TIENT VISIT, [facility], [address], [place], [id number] , [place] tel: [phone] [facility] med refill (chief complaint) Colostomy statusAbdomen painAcute bronchitis 5 Nanda Wilcox. [address] [place] [address], [id number], [place]. tel:[phone] OFFICE/OUTPA TIENT VISIT, [facility], [address], [place], [id number] , [place] tel: [phone] [facility] dyspnea (chief complaint) COPDColostomy statusTobacco abuse 5 Shahzad Cobb. [address], [place], [id number], [place]. tel:[phone] OFFICE/OUTPA TIENT VISIT, [facility], [address], [place], [id number] , [place] tel: [phone] [facility] med f/u (chief complaint) Spinal stenosis in cervical regionCervicalgi a 5 Shahzad Cobb. [address], [place], [id number], [place]. tel:[phone] [facility], [address] [place] [address], [id number] , [place] tel: [phone] [facility] referral (chief complaint) Colostomy statusAttention to colostomy 4 Erpenbeck MANU[employer]URING MANAGER Jeri. [address], [place], [id number], [place]. [phone] OFFICE/OUTPA TIENT VISIT, [facility], [address], [place], [id number] , [place] tel: [phone] [facility] ER (chief complaint) OtherColostomy statusAnxietyDia betes Mellitus Type 2, UncomplicatedOth er and unspecified coagulation defects 4 Er[employer] MANUFA[employer]URING MANAGER Jeri. [address], [place], [id number], [place]. tel:[phone] OFFICE/OUTPA TIENT VISIT, [facility], [address], [place], [id number] , [place] tel: [phone] [facility] BP check (chief complaint) CervicalgiaSpina l stenosis in cervical regionDisplaceme nt of cervical intervertebral disc without myelopathy 4 Er[employer] MANU[employer]ING MANAGER Jeri. [address], [place], [id number], [place]. [phone] OFFICE/OUTPA TIENT VISIT, [facility], [address], [place], [id number] , [place] tel: [phone] [facility] review labs and MRI (chief complaint) Degeneration of cervical intervertebral discDiabetes Mellitus Type 2, UncomplicatedUns pecified essential hypertensionUrin maryellen incontinence, unspecifiedMixed HyperlipidemiaOv erweight 4 Hemmer Libby. [address], [place], [id number], [place]. [facility], [address], [place], [id number] , [place] tel: [phone] [facility] No Information 4 Hemmer Libby. [address], [place], [id number], [place]. [facility], [address], [place], [id number] , [place] tel: [phone] [facility] Potential Drug Interaction (chief complaint) Therapeutic Drug Monitoring 4 Hemkirill Souza. [address], [place], [id number], [place]. OFFICE/OUTPA TIENT VISIT, [facility], [address], [place], [id number] , [place] tel: [phone] [facility] neck pain (chief complaint)ea r discomfort (chief complaint) Degeneration of cervical intervertebral discGERDDiabetes Mellitus Type 2, UncomplicatedUri nary incontinence, unspecifiedUnspe cified essential hypertensionMixe d HyperlipidemiaBe nign neoplasm of thyroid glands 4 Hemkirill Souza. [address], [place], [id number], [place]. [facility], [address] [place] [address], [id number] , [place] tel: [phone] [facility] Dental examination 4 Merrick DMD January. [address], [place], [id number], [place]. tel:[phone] [facility], [address], [place], [id number] , [place] tel: [phone] Dental Clinic Dental examination 4 [place] DMD January. [address], [place], [id number], [place]. tel:[phone] [facility], [address], [place], [id number] , [place] tel: [phone] Dental Clinic Dental examination 0 4 [place] DMD January. [address], [place], [id number], [place]. tel:[phone] [facility], [address], [place], [id number] , [place] tel:[phone] [facility] No Information Jul-2 0 Lamp Mayte. [address], [place], [id number], [place]. tel:[phone] [facility], [address] [place] [address], [id number] , tel: [phone] [facility] No Information Sep-2 8-201 0 Visci DO Boone. [address] [place] [address], [id number], . tel:[phone] [facility], [address] [place] [address], [id number] , tel: [phone] [facility] No Information Dec-0 1-200 8 No Information [facility], [address] [place] [address], [id number] , tel: [phone] Flu No Information Dec-0 1-200 8 Visci DO Boone. [address] [place] [address], [id number], . tel:[phone] Family History Family Member Type Diagnosis Age [...] ID Fredy ferrer(s) Ale Medicare Advantage SERGO [id number] Medicaid [facility] [id number] Social History Type Description Quantity Date Captured [...] vaccine ( ). Due on due Goal CARD CLOTHIER exam. Due on due Goal Colonoscopy. Due [...] Goal Foot exam. Due on due Goal CARD CLOTHIER exam. Due on due Goal Pneumococcal vac [...] due Goal ECG. Due on due Goal CARD CLOTHIER exam. Due on due Goal Tdap. Due [...] Goal Diabetes screening. Due on due Goal CARD CLOTHIER exam. Due on due Goal Influenza Vaccine. [...] due Goal Mammogram. Due on due Goal CARD CLOTHIER exam. Due on due Goal Depression scree [...] Goal Diabetes screening. Due on due Goal CARD CLOTHIER exam. Due on due Goal Breast exam. [...] due Goal Colonoscopy. Due on due Goal CARD CLOTHIER exam. Due on due Goal Depression scree [...] Goal Urine microalbumin. Due on due Goal CARD CLOTHIER exam. Due on due Goal Breast exam. [...] Goal Dental exam. Due on due Goal CARD CLOTHIER exam. Due on due Goal Pneumococcal vac [...] Goal Dental exam. Due on due Goal CARD CLOTHIER exam. Due on due Goal Dilated eye [...] Goal Dental exam. Due on due Goal CARD CLOTHIER exam. Due on due Goal Urine microalbumin. [...] due Goal Mammogram. Due on due Goal CARD CLOTHIER exam. Due on due Goal Foot exam. Due on due Goal Zoster vaccine ( ). Due on due Goal Pneumococcal vac cine. Due on due Goal Tdap. Due on due Goal Influenza Vaccine. Due on Wy due Goal Tobacco cessation counseling completed Goal [...] Goal Influenza Vaccine. Due on due Goal CARD CLOTHIER exam. Due on due Goal Zoster vaccine [...] Goal Mammogram. Due on 0 due Goal CARD CLOTHIER exam. Due on due Goal H&P. Due [...] Pneumococcal vac cine. Due on due Goal CARD CLOTHIER exam. Due on due Goal Foot exam. [...] nt education, guidance, and counseling completed Goal CARD CLOTHIER exam. Due on due Goal Pneumococcal vac [...] Influenza Vaccine. Due on Oc due Goal CARD CLOTHIER exam. Due on due Goal Depression scree [...] Foot exam. Due on 0 due Goal CARD CLOTHIER exam. Due on due Goal Tdap. Due [...] Goal Dental exam. Due on due Goal CARD CLOTHIER exam. Due on due Goal Urine microalbumin. [...] Foot exam. Due on 0 due Goal CARD CLOTHIER exam. Due on due Goal Pneumococcal vac [...] Pneumococcal vac cine. Due on due Goal CARD CLOTHIER exam. Due on due Goal Dilated eye [...] vaccine ( ). Due on due Goal CARD CLOTHIER exam. Due on due Goal Tdap. Due [...] Goal Dental exam. Due on due Goal CARD CLOTHIER exam. Due on due Goal Hemoglobin A1C. [...] due Goal ECG. Due on due Goal CARD CLOTHIER exam. Due on due Goal Breast exam. [...] Pneumococcal vac cine. Due on due Goal CARD CLOTHIER exam. Due on due Goal ECG. Due [...] Goal Breast exam. Due on due Goal CARD CLOTHIER exam. Due on due Goal Depression scree nancy. Due on due Goal Tdap. Due on due Goal Mammogram. Due on 0 due Goal H&P. Due on due Goal Influenza Vaccine. Due on due Goal ECG. Due on due Goal Tobacco cessation counseling completed Goal Breast exam. Due on due Goal Tdap. Due on due Goal H&P. Due on due Goal CARD CLOTHIER exam. Due on due Goal Foot exam. [...] due Goal ECG. Due on due Goal CARD CLOTHIER exam. Due on due Goal Breast exam. Due on due Goal Tdap. Due on due Goal Colonoscopy. Due on due Goal Diabetes screening. Due on A due Goal Tobacco cessation counseling completed Goal Dietary manageme nt education, guidance, and counseling completed Goal Urine microalbumin. Due on due Goal Tdap. Due on due Goal CARD CLOTHIER exam. Due on due Goal Depression scree [...] due Goal H&P. Due on due Goal CARD CLOTHIER exam. Due on due Goal Diabetes screening. [...] Goal Mammogram. Due on 9 due Goal CARD CLOTHIER exam. Due on due Goal Tdap. Due [...] Pneumococcal vac cine. Due on due Goal CARD CLOTHIER exam. Due on due Goal Dilated eye [...] Depression scree nancy. Due on due Goal CARD CLOTHIER exam. Due on due Goal Influenza Vaccine. [...] Foot exam. Due on 9 due Goal CARD CLOTHIER exam. Due on due Goal Depression scree [...] Diabetes screening. Due on A due Goal CARD CLOTHIER exam. Due on due Goal Colonoscopy. Due [...] due Goal H&P. Due on due Goal CARD CLOTHIER exam. Due on due Goal Depression scree nancy. Due on due Goal Breast exam. Due on due Goal Depression scree nancy. Due on due Goal Colonoscopy. Due on due Goal CARD CLOTHIER exam. Due on due Goal Dental exam. [...] Foot exam. Due on 9 due Goal CARD CLOTHIER exam. Due on due Goal Mammogram. Due [...] Diabetes screening. Due on A due Goal CARD CLOTHIER exam. Due on due Goal Breast exam. [...] Goal Dental exam. Due on due Goal CARD CLOTHIER exam. Due on due Goal Depression scree nancy. Due on due Goal Colonoscopy. Due on 025 due Goal Breast exam. Due on due Goal ECG. Due on due Goal H&P. Due on due Goal Diabetes screening. Due on due Goal Pneumococcal vac cine. Due on due Goal Dental exam. Due on due Goal CARD CLOTHIER exam. Due on due Goal ECG. Due [...] Goal Breast exam. Due on due Goal CARD CLOTHIER exam. Due on due Goal Diabetes screening. [...] Depression scree nancy. Due on due Goal CARD CLOTHIER exam. Due on due Goal Dental exam. [...] Goal Influenza Vaccine. Due on due Goal CARD CLOTHIER exam. Due on due Goal Dental exam. [...] Breast exam. Due on 019 due Goal CARD CLOTHIER exam. Due on due Goal Urine microalbumin. [...] due Goal ECG. Due on due Goal CARD CLOTHIER exam. Due on due Goal Influenza Vaccine. [...] Goal Mammogram. Due on 8 due Goal CARD CLOTHIER exam. Due on due Goal Breast exam. Due on 018 due Goal FOBT. Due on due Goal Urinalysis. Due on 14 due Goal CARD CLOTHIER exam. Due on due Goal ECG. Due [...] due Goal ECG. Due on due Goal CARD CLOTHIER exam. Due on due Goal Dental exam. [...] due Goal H&P. Due on due Goal CARD CLOTHIER exam. Due on due Goal Dilated eye exam. Due on Dec due Goal Mammogram. Due on 8 due Goal CARD CLOTHIER exam. Due on due Goal Dilated eye [...] due Goal ECG. Due on due Goal CARD CLOTHIER exam. Due on due Goal Pneumococcal vac [...] Goal Mammogram. Due on 7 due Goal CARD CLOTHIER exam. Due on due Goal BMP fasting. [...] due Goal Colonoscopy. Due on due Goal CARD CLOTHIER exam. Due on due Goal Urinalysis. Due on 14 due Goal BMP fasting. Due on due Goal Pap/HPV testing. Due on due Goal Mammogram. Due on 7 due Goal Tobacco cessation counseling completed Goal BMP fasting. Due on due Goal H&P. Due on due Goal CARD CLOTHIER exam. Due on due Goal Breast exam. [...] Goal Mammogram. Due on 6 due Goal CARD CLOTHIER exam. Due on due Goal Breast exam. Due on due Goal Colonoscopy. Due on due Goal Influenza Vaccine. Due on due Goal FOBT. Due on due Goal Colonoscopy. Due on due Goal FOBT. Due on due Goal Mammogram. Due on 6 due Goal BMP fasting. Due on due Goal TD Vaccine. Due on 16 due Goal Urinalysis. Due on 14 due Goal CARD CLOTHIER exam. Due on due Goal H&P. Due [...] Goal BMP fasting. Due on due Goal CARD CLOTHIER exam. Due on due Goal Mammogram. Due on 6 due Goal Urinalysis. Due on 14 due Goal Mammogram. Due on 6 due Goal FOBT. Due on due Goal Sigmoidoscopy. Due on due Goal Colonoscopy. Due on due Goal CARD CLOTHIER exam. Due on due Goal Influenza Vaccine. [...] due Goal Sigmoidoscopy. Due on due Goal CARD CLOTHIER exam. Due on due Goal TD Vaccine. Due on 16 due Goal Breast exam. Due on due Goal Urinalysis. Due on 14 due Goal FOBT. Due on due Goal Mammogram. Due on 6 due Goal Colonoscopy. Due on due Goal TD Vaccine. Due on 16 due Goal Lipid Panel. Due on 015 due Goal CARD CLOTHIER exam. Due on due Goal BMP fasting. [...] Goal Mammogram. Due on 6 due Goal CARD CLOTHIER exam. Due on due Goal H&P. Due [...] Goal Influenza Vaccine. Due on due Goal CARD CLOTHIER exam. Due on due Goal TD Vaccine. Due on 16 due Goal CARD CLOTHIER exam. Due on due Goal Urinalysis. Due [...] Goal Breast exam. Due on due Goal CARD CLOTHIER exam. Due on due Goal Influenza Vaccine. [...] Goal Pap/HPV testing. Due on due Goal CARD CLOTHIER exam. Due on due Goal H&P. Due [...] BMP fasting. Due on 014 due Goal CARD CLOTHIER exam. Due on due Goal Sigmoidoscopy. Due [...] due Goal Tdap. Due on due Goal CARD CLOTHIER exam. Due on due Goal FOBT. Due on due Goal Breast exam. Due on due Goal Tdap. Due on due Goal Influenza Vaccine. Due on due Goal H&P. Due on due Goal FOBT. Due on due Goal Mammogram. Due on 5 due Goal Lipid Panel. Due on due Goal CARD CLOTHIER exam. Due on due Goal Pap/HPV testing. [...] TD Vaccine. Due on 15 due Goal CARD CLOTHIER exam. Due on due Goal BMP fasting. [...] Breast exam. Due on 015 due Goal CARD CLOTHIER exam. Due on due Goal TD Vaccine. Due on 15 due Goal Influenza Vaccine. Due on due Goal Colonoscopy. Due on due Goal FOBT. Due on due Goal Sigmoidoscopy. Due on due Goal Breast exam. Due on due Goal Tdap. Due on due Goal CARD CLOTHIER exam. Due on due Goal Mammogram. Due [...] due Goal H&P. Due on due Goal CARD CLOTHIER exam. Due on due Goal Tdap. Due [...] due Goal Tdap. Due on due Goal CARD CLOTHIER exam. Due on due Goal Pap/HPV testing. Due on due Goal Mammogram. Due on 5 due Goal FOBT. Due on due Goal Breast exam. Due on due Goal BMP fasting. Due on 014 due Goal Sigmoidoscopy. Due on due Goal Sigmoidoscopy. Due on due Goal BMP fasting. Due on 014 due Goal Influenza Vaccine. Due on due Goal CARD CLOTHIER exam. Due on due Goal Urinalysis. Due [...] To: [facility] [address] [place], [place] [phone] Ordered: Referrals: Allopathic & Osteopathic Physicians : Orthopaedic Surgery. [facility]. Location: [facility]. Consult Appointment date/timeframe: 09/03/2017 ordered Referral Ordered: [...] Referral Ordered: referred to Clinical Nurse Specialist COVERER today (related to Attention to colostomy) ordered Referral Ordered: Urology. ordered Future Order: Lab Order GLYCOSYL ATED HEMOGLOBIN TEST ([id number]), Collected on: , Sent on: Sent Future Order: Lab Order Complian ce Drug Analysis, Ur ([id number]), Collected on: , Sent on: Sent Future Order: Lab Order Urine, N aloxone Urine Cofirm ([id number]), Collected on: , Sent on: Sent History [...] RN ,above was reviewed and agreed with [facility] lab draw Pt here for [...] Lyrica 08/11, Ativan 08/05, Flexeril 07/29 & [place] 07/26TGrodi [employer]ITAL PROJECT ENGINEER fatigue This is an initi al [...] completed, last filled Lorazepam 06/06, Lyrica 06/06, [place] 06/05TGrodi [facility] Med Refills Pt here today fo r medication refills. PT states she fell Thursday and her L hand is swollen. Denies any pain. OARRS completed, last filled [place], Ativan & Lyrica 05/08TGrodi [facility] Musculoskeletal pain Onset: sudd en. It [...] Ativan, 02/13, Lyrica 02/13, & norco 02/06TGrodi [employer] PRO[employer] ENGINEER fatigue This is an initi al [...] Ativan 12/19, Lyrica 12/17, Flexeril 12/02 & [place] 11/20TGrodi LPNPt states she is just tired, pt son who she lives with has his son that is 3 months old and not sleeping thought the [facility] Med Refills Pt here today fo r [...] work. OARRS completed, last filled Ativan 10/23, [place] 10/31 & Flexeril 10/31TGrodi [employer] ENGINE[employer] GERD The severity of the problem [...] refills. OARRS completed, last filled Ativan 09/25, [place] & Flexeril 09/05TGrodi [employer] ENGINEER diabetes The problem is s table. [...] OARRS completed, last filled Ativan 08/26 & [place] 08/08TGrodi [employer] Med Refills Pt here today fo r medication refills. We discussed Pt getting tested genes for coronary artery disease and what pt should do about it otherwise pt is doing well. OARRS completed, last filled Ativan 07/22, Flexeril 07/15, [place] 07/11 & Lyrica 07/01TGrodi [employer] ENGINEER fatigue This is an initi al [...] Pt denies any other issues or concerns. PUALA Chen A1C & MED REFILLS Pt here today for A1C check and medication refills. Pt states she wants her Flexeril back and thinks she needs back on Vesicare. Pt states the other medications replacing Flexeril is not working. Pt feels the Amitriptyline is not working eitherOARRS completed, last filled Lyrica & Ativan 05/27, [place] 05/18, & Ambien 05/14TGrodi [employer] ENG[employer] diabetes The problem is s table. [...] completed, last filled Ativan 04/28, Lyrica 04/28, [place] 04/16TGrodi [employer] ENG[employer] GERD The severity of the problem [...] back pain and dizziness, states that the [place] is no longer helping the pain. Pt [...] 03/10, Ativan, Ambien & Lyrica 03/02, & [place] 03/01TGrodi [employer] ENGINEER Anxiety This is a follow up [...] swelling, redness and pain. Pt states the [place] helps with the pain but she is worried about infection. Pt denies any other problems or concerns.Pt requesting refills of [place] 5mg last filled 11/07 and Ativan 0.5mg [...] completed, last filled Lyrica 10/27, Flexeril 10/27, [place] & Ativan 09/27TGjoyce HOPPER Rash The patient [...] provide oral swab. OARRS completed, last filled [place] 09/27, Ativan 09/27 & Lyrica 09/28. [facility] urine drug screen performed, pt + for NOTHING ALL NEGATIVE. Asked patient when she last took her medication and she stated she last took Ativan yesterday & [place] 4 days ago. TGrodi [facility] Med refills Pt here today fo [...] last filled Flexeril 09/19 & 09/08, Lyrica, [place] [facility] Onset was sudden . The duration [...] if she needs a refill on her [place] and she said, yeah might as well . I asked patient to provide a urine today and she said she can not pee. OARRS completed, last filled Flexeril 08/26, Ativan 08/03, & [place] 08/03TGrodi [employer] Dizziness Onset was sudden . Severity [...] Flexeril 07/15, Lyrica 06/29, Ativan 06/22 & [place] 06/22rodi [facility] DRUG SCREEN Pt could not uri ion for a UDS. Pt had blood drawn. First attempt successful in R antecubital. Pt tolerated well. [facility] Pt here today [...] filled Flexeril 05/27 & 06/09, Lyrica 05/25, [place] & Ativan 05/11TGrod LPNPt states that beside the no energy she feels ok drug screen Pt could no go t o the bathroom so did a blood draw for a drug screen. First attempt successful in R antecubital. Pt tolerated well no issues or concerns. [facility] follow up Pt here today fo r a follow up & medication refills. Pt states she had her INR drawn today and it was 1.9OARRS completed, last filled Flexeril 04/30, Lyrica 04/25, Ativan 04/13, & [place] 03/11TGrodi [facility] hypertension Comorbid conditi ons include diabetes [...] completed, last filled Lyrica 02/16, Ativan, & [place] /Grodi LPNASKED PATIENT IF SHE COULD PROVIDE A URINE AND SHE SAID NOT RIGHT NOW. SHE WILL NEED TO PROVIDE A URINE OR GET A BLOOD DRAW. ,above was reviewed and agreed with Medication refills Patient here for Medication refills. Patient is requesting refills on Wellbutrin, Ativan and [place]. A1C completed today. No other issues at this time. Also patient did agree to reschedule breast biopsy. Patent was advised to stop blood thinners for 5 days. Patient is scheduled 02/09/19 at 10am at the [facility]. OARRS completed. last [...] well. She states she does not need [place] cause she still has some. OARRS completed, last filled, Ativan 12/22 for 15 day supply, [place] & Lyrica 12/22TGrodi LPNPt states she get [...] this needs discussed. OARRS completed, last filled [place], Ativan, 11/05, Lyrica 11/11 & got Percocet [...] Pt here for medi cation refill on [place] and At[place]. Pt. c/o back pain 08/11. [...] syrup cough drops, tylenol. Sandra Guthrie RN. [place]: Finished ten day s if Keflex. Coughing [...] called. Jose Margarito: Coughing for 1 w soboba. No hemoptysis or shortness of breath or chest pain. Has a nebulizer at home. [place]: States she was t aking Gabapentin for [...] would like 90 days supply if possible. [facility] [place] follow [place] Patient states s he went [...] the coumadin clinic and [facility] managed by [facility] Dr. Rodriguez. Patient needs a release [...] is looking into another psych provider in [place]. RUCHI Figueroa knee pain Location: knee. Additional [...] april to see new psych doctor in [place]. Patient has no other issues at this [...] are due for refill. She went to [facility] on 10/15/15 and starts PT on 11/07/15. [...] Metoprolol, & Clopidogel. Oscar Arias dyspnea Pt. [facility] was i [facility] in for emergency colectomy. While inpt. was using nebulizers. Was not given Rx at time of d/c and has been using sister's neb at home with relief of dyspnea. Neb meds currently using are Albuterol and Ipratropium [place] 2 - 3 times/day. Hayden Casas R.N. med f/u Client here to f /u on meds. Also [facility] has a rash around her stoma. [facility] has a Colonoscopy sched. for 11-21-14. [...] if desires results. 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
--- OUTSIDE RECORDS SUMMARY | 2025-04-03 13:00 | XMS_ITS | Encounter Summary ---
Author Organization [facility] Address [address] [place] [address] Phone Care Team Providers Care Medical Record Coder Name Role Phone June Preston MD Unavailable Conchita Aden MD Primary Care Provider [phone] Reason for Referral * Imaging (Routine) - Authorized Specialty Diagnoses / Procedures Referred By Aleena lomeli Referred To Contact Radiology Diagnoses Ventricular tachycardia (Multi) Abnormal result of cardiovascular function study, unspecified Procedures CT heart structure morphology w IV contrast Jennifer Fair MD [address] [place] [address] Phone: tel: fax: Referral ID Status Reason Start Date Expiration Date Visits Requested Visits Authorized [id number] Authorized Perform Procedure 01/12/2025 01/12/2026 1 1 Reason for Visit * Imaging (Routine) - Authorized Specialty Diagnoses / Procedures Referred By Aleena lomeli Referred To Contact Radiology Diagnoses Ventricular tachycardia (Multi) Abnormal result of cardiovascular function study, unspecified Procedures CT heart structure morphology w IV contrast Jennifer Fair MD [address] [place] [address] Phone: tel: fax: Referral ID Status Reason Start Date Expiration Date Visits Requested Visits Authorized [id number] Authorized Perform Procedure 01/12/2025 01/12/2026 1 1 Encounter Details Date Type Department Care Team (Latest Contact Info) Description 04/03/2025 1:00 PM EDT - 04/03/2025 11:59 PM EDT Hospital Encounter [facility] [address] [place] [phone] Ventricular tachycardia (CMS/HCC); Abnormal result of cardiovascular [...] from your doctor or pharmacy? Never 01/08/2025 [facility] Utilities Answer Date Recorded In the past 12 months has th e [employer], gas, oil, or water [employer] threatened to shut off services in your [...] How often do you attend denominational or islam serv ices? Patient declined 01/08/2025 Do you [...] Recorded Patient Health Questionnaire-2 Score 0 01/08/2025 [facility] of Occupat ional [facility] - Occupational Stress Questionnaire Answer [...] any time in the past 12 m [facility], were you homeless or living in [...] aspirin 81 mg EC tabletIndications:At herosclerosis of [place] coronary artery of [place] heart without angina pectoris Take 1 tablet (81 mg) by mouth 2 times a week. 11/14/2024 6 benzocaine-menthol (Cepastat Sore Throat) lozengeIndications:I CD (implantable cardioverter-defibri llator) discharge Dissolve 1 lozenge in the mouth every 2 hours if needed for sore throat. 40 lozenge 01/13/2025 Invokana 300 mgIndications:Type 2 diabetes mellitus without complication, without long-term current use of insulin,Atherosclero sis of [place] coronary artery of [place] heart without angina pectoris,Chronic systolic CHF (congestive [...] 500 mg 12 hr tabletIndications:At herosclerosis of [place] coronary artery of [place] heart without angina pectoris Take 1 tablet [...] rosuvastatin (Crestor) 20 mg tabletIndications:At herosclerosis of [place] coronary artery of [place] heart without angina pectoris,Mixed hyperlipidemia Take 1 [...] Description 04/14/2025 9:30 AM EDT Hospital Encounter [facility] [place] [address] [place] [address] [place] [address] Jennifer Fair MD [address] [place] [address] Ventricular tachycardia (Multi) 04/14/2025 11:00 AM EDT - 04/14/2025 3:00 PM EDT Surgery [facility] [address] [place] [address] [place] [address] Jennifer Fair MD [address] [place] [address] [place] [[address] (CPT )] 07/14/2025 1:00 PM EDT Office Visit [facility] [address] [facility] [address] [place] [address] Oscar Rodriguez MD 3 [facility] 2, [address] [place] [address] 09/26/2025 12:20 PM EST Appointment [facility] [address] [place] [address] 09/26/2025 1:00 PM EST Office Visit [facility] [address] [facility] [address] [place] [address] June Preston MD [address] [facility] Medical Office Bldg, [address] [place], [place] [phone] documented as of this encounter Procedures Procedure [...] Anand Baugh 04/04/2025 1:16 AM Dictation workstation: [id number] Narrative 04/04/2025 1:16 AM EDT Interpreted By: Anand Baugh and Okyere Robert STUDY: CT HEART STRUCTURE MORPHOLOGY W IV CONTRAST; 04/03/2025 1:36 pm INDICATION: Signs/Symptoms:For Ventricular Tachycardia ablation planning; late iodine enhancement CT scan; inHeart protocol; must be done at [facility]. COMPARISON: None. ACCESSION NUMBER(S): [id number] ORDERING CLINICIAN: JENNIFER FAIR TECHNIQUE: Using multi-detector [...] about 25-50% luminal stenosis which fills via orzv-so-smkff collaterals. CARDIAC CHAMBERS: The cardiac chambers demonstrate [...] scan; inHeart protocol; must be done at [facility]. COMPARISON: None. ACCESSION NUMBER(S): [id number] ORDERING CLINICIAN: JENNIFER FAIR TECHNIQUE: Using multi-detector [...] about 25-50% luminal stenosis which fills via tblb-xq-sppor collaterals. CARDIAC CHAMBERS: The cardiac chambers demonstrate [...] Anand Baugh 04/04/2025 1:16 AM Dictation workstation: [id number] Jennifer Fair MD IMG CT PROCEDURES Final [...] documented as of this encounter Care Teams Medical Record Coder Relationship Specialty Start Date End Date Conchita Aden MD [facility] [address] PCP - General Family Medicine 11/11/24 June Preston MD [address] [facility] [address] [place] [address] Video Effects Editor Electrophysiology 09/13/24 documented as of this encounter
--- OUTSIDE RECORDS SUMMARY | 2025-04-10 15:18 | XMS_ITS | Encounter Summary ---
Author Organization [facility] Address [address] [place], [place] [address] Care Team Providers Care Cloth Neutralizer Name Role Phone Shanthi Litstephanie Nelson DO Primary Care Provider [phone] Reza Pike MD Primary Care Provider Pcp, No ORDNANCE TRUCK INSTALLATION MECHANIC Primary Care Provider Unavailabl e Source Comments In the event this information is protected by the Federal Confidentiality of Alcohol and Drug AbusePatient Records regulations: The Federal rules restrict any use of the information to criminally investigate or prosecute any alcohol or drug abuse patient.[facility] Encounter Details Date Type Department Care Team (Late st Contact Info) Description 06/01/2015 Letters (in) Colorectal Surgery [address] [id number] Marcial Ceballos (Hist) [address] [id number] Social History Tobacco Use Types Packs/Day Years [...] June 01, 2015 Jd Dailey, DO [address] [address] RE: Latanya Martinez : [address] [...] and she was suitable for anesthesia, a sikhism of continuity could be performed. I performed [...] 22, 2015. Yours Faithfully, Marcial Ceballos MD [place]/ cc: Latanya Martinez 11/03 [place] [address] Lit Maki DO 1019 [facility] [address] documented in this encounter Plan of Treatment Not on file documented as of this encounter Visit Diagnoses Not on filedocumented in this encounter Care Teams Cloth Neutralizer Relationship Specialty Start Date End Date Lit Maki DO PCP - General 05/16/15 06/03/15 Reza Pike MD PCP - General Family Medicine 06/04/15 05/16/22 Pcp, No, ORDNANCE TRUCK INSTALLATION MECHANIC PCP - General 05/17/22 12/02/22 documented as of this encounter
--- OUTSIDE RECORDS SUMMARY | 2025-04-10 15:18 | XMS_ITS | Encounter Summary ---
Author Organization [facility] Address [address] [place] [address] Phone Care Team Providers Care Seafood Farmer Name Role Phone Tremaine West DO Primary Care Provider Ania Brothers PLANTING MATERIAL CARRIER-TEST KITCHEN HOME ECONOMIST Unavailable Unavailable June Preston MD Unavailable Sol Keita CUSTOMER CARE MANAGER Unavailable [phone] June Preston MD Unavailable Oscar Rodriguez MD Unavailable [phone] Generic Provider, No Assigned Pcp Primary Car e Provider Unavailable Diane Min RN Unavailable Unavailable June Preston MD Unavailable Conchita Aden MD Primary Care Provider Diane Min RN Unavailable Unavailable Encounter Details Date Type Department Care Team (Late st Contact Info) Description 07/23/[address] [facility] LEGACY [address] [place] [address] Conversion, Onbase Social History Tobacco Use Types [...] Description 04/14/2025 9:30 AM EDT Hospital Encounter [facility] [address] [place] [address] [place] [address] Kervin Fair MD [address] [place] [address] Ventricular tachycardia (Multi) 04/14/2025 11:00 AM EDT - 04/14/2025 3:00 PM EDT Surgery [facility] [address] [place] [address] [place] [address] Kervin Fair MD [address] [place], [place] [phone] [place] [[id number] (CPT )] 07/14/2025 1:00 PM EDT Office Visit [facility] 703 [facility] Steve [address] [place] [address] Oscar Rodriguez MD 703 [facility] 2, Steve [address] [place] [address] 09/26/2025 12:20 PM EST Appointment [facility] [address] [place] [address] 09/26/2025 1:00 PM EST [facility] 125 E [facility] 320 [place] [address] June Preston MD 125 E [facility] Office [facility], Steve [address] [place] [address] documented as of this encounter Procedures Procedure [...] documented as of this encounter Care Teams Seafood Farmer Relationship Specialty Start Date End Date Tremaine West DO [address]10 [place] Amor West DO [address] [address] PCP - General 01/22/22 11/05/23 Generic Provider, No Assigned Pcp, [place] [address] PCP - General Stock Counter 08/08/24 11/10/24 Conchita Aden MD [address] [place] [address] PCP - General Family Medicine 11/11/24 nAia Brothers, PLANTING MATERIAL CARRIER-TEST KITCHEN HOME ECONOMIST [address] [place] [address] Nurse Practitioner Cardiology 09/30/23 02/16/24 June Preston MD [address] [place] [place] [address] [address] Hopper Operator Cardiology 09/30/23 02/16/24 Sol Keita, CUSTOMER CARE MANAGER Decision Unit RnData Governance Consultant 02/19/24 05/17/24 June Preston MD 125 E [facility], [address] [place] [address] Consulting Physician Cardiology 02/19/24 02/29/24 Oscar Rodriguez MD [address] [place] [address] 2, [address] [place] [address] Consulting Physician Cardiology 02/19/24 02/29/24 Diane Min, architectural practice managerData Governance Consultant 09/05/24 12/06/24 June Preston MD 125 [facility], [address] [place] [address] Hopper Operator Electrophysiology 09/13/24 Diane Min, architectural practice managerData Governance Consultant 01/16/25 01/31/25 documented as of this encounter
--- OUTSIDE RECORDS SUMMARY | 2025-04-10 15:18 | XMS_ITS | Encounter Summary ---
Author Organization [facility] Address [address] [place] [address] Phone Care Team Providers Care Lumber Carrier Name Role Phone June Preston MD Unavailable Conchita Aden MD Primary Care Provider [phone] Encounter Details Date Type Department Care Team (Late st Contact Info) Description 02/10/2025 Scanned Document [facility] [address] [place] [address] Scanning, Generic Provider Social History Tobacco Use [...] from your doctor or pharmacy? Never 01/08/2025 [facility] Utilities Answer Date Recorded In the past 12 months has e [employer], oil, or water [employer] threatened to shut off services in your [...] week 01/08/2025 How often do you attend faith or voodoo serv ices? Patient declined 01/08/2025 Do you belong to any clubs o r organizations such as faith groups, unions, fraternal or athletic groups, or [...] Recorded Patient Health Questionnaire-2 Score 0 01/08/2025 [facility] - Occupational Stress [...] time in the past 12 m [facility], were you homeless or living in a [place] health care facility (including now)? No 01/08/2025 Comments No Sex [...] Description 04/14/2025 9:30 AM EDT Hospital Encounter [facility] [place] [address] [place] [address] [place] [address] Kervin Fair MD [address] [place] [address] Ventricular tachycardia (Multi) 04/14/2025 11:00 AM EDT - 04/14/2025 3:00 PM EDT Surgery [facility] [place] [address] [place] [address] [place] [address] Kervin Fair MD [address] [place] [address] [place] [34368 (CPT )] 07/14/2025 1:00 PM EDT Office Visit [facility] 703 [facility] 250 [place] [address] Oscar Rodriguez MD 703 [facility] 2, Steve [address] [place] [address] 09/26/2025 12:20 PM EST Appointment [facility] [address] [place] [address] 09/26/2025 1:00 PM EST Office Visit [facility] [address] [facility] 320 [place] [address] June Preston MD 125 E [facility] Office [facility], [facility] 305 [place] [address] documented as of this encounter Procedures Procedure [...] documented as of this encounter Care Teams Lumber Carrier Relationship Specialty Start Date End Date Conchita Aden MD [address] [place] [address] [place] [address] PCP - General Family Medicine 11/11/24 June Preston MD 125 E [facility] Medical Office Bldg, Steve [address] [place] [address] Abrasive Mixer Electrophysiology 09/13/24 documented as of this encounter
--- OUTSIDE RECORDS SUMMARY | 2025-04-10 15:18 | XMS_ITS | Encounter Summary ---
Author Organization [facility] Address [address] [place] [address] Phone Care Team Providers Care Emblem Maker Name Role Phone Generic Provider, No Assigned Pcp Primary Car e Provider Unavailable Diane Min RN Unavailable Unavailable June Preston MD Unavailable Conchita Aden MD Primary Care Provider Diane Min RN Unavailable Unavailable Encounter Details Date Type Department Care Team (Late st Contact Info) Description 10/29/2024 Scanned Document [facility] [address] [place] [address] Scanning, Generic Provider Social History [...] place to sleep or slept in a jail (including now)? No 02/16/2024 Housing Stability Vital [...] time in the past 12 m [facility], were you homeless or living in a jail (including now)? No 09/01/2024 Comments No Sex and Gender Information Value Date Recorded Sex Assigned at Not on file Legal Sex Female 10:34 AM EST Gender Identity Not on file Sexual Orientation Not on file documented as of this encounter Plan of Treatment Upcoming Encounters Date Type Department Care Team (Latest Contact Info) Description 04/14/2025 9:30 AM EDT Hospital Encounter [facility] [address] [place] [phone] Kervin Fair MD [address] [place] [address] Ventricular tachycardia (Multi) 04/14/2025 11:00 AM EDT - 04/14/2025 3:00 PM EDT Surgery [facility] [address] [place] [phone] Kervin Fair MD [address], [place] [id number] [place] [38158 (CPT )] 07/14/2025 1:00 PM EDT Office Visit [facility] [address] [facility] [address] [place] [address] Oscar Rodriguez MD [address] [place], [place] [id number] 09/26/2025 12:20 PM EST Appointment [facility] [address] [place] [address] 09/26/2025 1:00 PM EST Office Visit [facility] [address] [facility] [address] [place] [address] June Preston MD [address] [facility] Medical Office Bldg, [address] [place] [address] documented as of this encounter Visit Diagnoses [...] documented as of this encounter Care Teams Emblem Maker Relationship Specialty Start Date End Date Generic Provider, No [place] [address] PCP - General Tire Design Engineer 08/08/24 11/10/24 Conchita Aden MD [address] [place] [address] [place] [address] PCP - General Family Medicine 11/11/24 Diane Min, inbound sales managerSpiritual Care Coordinator 09/05/24 12/06/24 June Preston MD [address] [facility], [address] [place] [address] Veterans Employment Representative Electrophysiology 09/13/24 Diane Min, inbound sales managerSpiritual Care Coordinator 01/16/25 01/31/25 documented as of this encounter
--- OUTSIDE RECORDS SUMMARY | 2025-04-10 15:18 | XMS_ITS | Encounter Summary ---
Author Organization [facility] Address [address] [place] [address] Phone Care Team Providers Care Razor Grinder Name Role Phone Generic Provider, No Assigned Pcp Primary Car e Provider Unavailable Diane Min RN Unavailable Unavailable June Preston MD Unavailable Conchita Aden MD Primary Care Provider [phone] Diane Min RN Unavailable Unavailable Encounter Details Date Type Department Care Team (Late st Contact Info) Description 11/02/2024 Scanned Document [facility] [address] [place] [address] Scanning, Generic Provider Social History [...] time in the past 12 m [facility], were you homeless or living [...] EDT Hospital Encounter [facility] [address] [place] [phone] Kervin Fair MD [address] [place] [address] Ventricular tachycardia (Multi) 04/14/2025 11:00 AM EDT - 04/14/2025 3:00 PM EDT Surgery [facility] [address] [place] [phone] Kervin Fair MD [address] [place], [place] [id number] [place] [[address] (CPT )] 07/14/2025 1:00 PM EDT Office Visit [facility] [address] [facility] [address] [place] [address] Oscar Rodriguez MD [address] [place], [place] [id number] 09/26/2025 12:20 PM EST Appointment [facility] [address] [place] [address] 09/26/2025 1:00 PM EST Office Visit [facility] [address] [facility] [address] [place] [address] June Preston MD [address] [facility] Medical Office Bldg, [address] [place] [address] documented as of this encounter Visit Diagnoses [...] documented as of this encounter Care Teams Razor Grinder Relationship Specialty Start Date End Date Generic Provider, No [place] [address] PCP - General Case Management Specialist 08/08/24 11/10/24 Conchita Aden MD [address] [place] [address] [place] [address] PCP - General Family Medicine 11/11/24 Diane Min, property economistMaster [place] 09/05/24 12/06/24 June Preston MD [address] [facility], [facility] [address] [place] [address] [address] Driver Electrophysiology 09/13/24 Diane Min, property economistMaster [place] 01/16/25 01/31/25 documented as of this encounter
--- OUTSIDE RECORDS SUMMARY | 2025-04-10 15:18 | XMS_ITS | Encounter Summary ---
Author Organization [facility] Address [address] [place] [address] Phone Care Team Providers Care Ornamental Bronze Worker Name Role Phone Tremaine West DO Primary Care Provider Ania Brothers CIRCULATION TENDER-SAND WORKER Unavailable Unavailable June Preston MD Unavailable Sol Keita MANA[address] DRIVE Unavailable [phone] June Preston MD Unavailable Oscar Rodriguez MD Unavailable [phone] Generic Provider, No Assigned Pcp Primary Car e Provider Unavailable Diane Min RN Unavailable Unavailable June Preston MD Unavailable Conchita Aden MD Primary Care Provider [phone] Diane Min RN Unavailable Unavailable Encounter Details Date Type Department Care Team (Late st Contact Info) Description 07/27/2023 Scanned Document [facility] [address] [place] [address] Conversion, Onbase Social History Tobacco Use Types [...] Hospital Encounter [facility] [address] [place] [address] Kervin Fair MD [address] [place] [address] Ventricular tachycardia (Multi) 04/14/2025 11:00 AM EDT - 04/14/2025 3:00 PM EDT Surgery [facility] [place] [address] [place] [address] Kervin Fair MD [address] [place] [address] [place] [[id number] (CPT )] 07/14/2025 1:00 PM EDT Office Visit [facility] 703 [facility] [address] [place] [address] Oscar Rodriguez MD 703 [facility], [address] [place] [address] 09/26/2025 12:20 PM EST Appointment [facility] [address] [place] [address] 09/26/2025 1:00 PM EST Office Visit [facility] [address] [facility] [address] [place] [address] June Preston MD [address] [facility] Office [facility], [address] [place] [address] documented as of this encounter Procedures Procedure [...] documented as of this encounter Care Teams Ornamental Bronze Worker Relationship Specialty Start Date End Date Tremaine West DO [address] Amor West DO [address] [address] PCP - General 01/22/22 11/05/23 Generic Provider, No Assigned Pcp, [place] [address] PCP - General Grocery Specialist 08/08/24 11/10/24 Conchita Aden MD [address] [place] [address] [place] [address] PCP - General Family Medicine 11/11/24 Ania Brothers, CIRCULATION TENDER-SAND WORKER [address] Amor West DO [address] [address] Nurse Practitioner Cardiology 09/30/23 02/16/24 June Preston MD [address] [facility] [address], [address] [place] [address] Tester Printed Circuit Boards Cardiology 09/30/23 02/16/24 Sol Keita, MANAGER DRIVE Seam RubberHoop Punch And Coiler Operator 02/19/24 05/17/24 June Preston MD [address] [facility], [address] [place] [address] Consulting Physician Cardiology 02/19/24 02/29/24 Oscar Rodriguez MD 703 [facility] 2, [address] [place] [address] Consulting Physician Cardiology 02/19/24 02/29/24 Diane Min RN Care Hoop Punch And Coiler Operator 09/05/24 12/06/24 June Preston MD [address] [facility], [address] [place] [address] Tester Printed Circuit Boards Electrophysiology 09/13/24 Diane Min, snowmobile mechanicHoop Punch And Coiler Operator 01/16/25 01/31/25 documented as of this encounter
--- OUTSIDE RECORDS SUMMARY | 2025-04-10 15:18 | XMS_ITS | Clinical Summary ---
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) from Last 3 Months or Most Recently Relevant to Health Maintenance Results * (ABNORMAL) BASIC METABOLIC PNL (05/31/2015 12:41 AM EDT) Glucose 101(H) 65 - 100 mg/dL 05/31/2015 1:52 AM EDT [facility] BUN 3(L) 8 - 25 mg/dL 05/31/2015 1:52 AM T [facility] Creatinine 0.75 0.70 - 1.40 mg/dL 05/31/2015 1:52 AM T [facility] Sodium 135 132 - 148 mmol/L 05/31/2015 1:52 AM T [facility] Potassium 4.3 3.5 - 5.0 mmol/L 05/31/2015 1:52 AM T [facility] Chloride 100 98 - 110 mmol/L 05/31/2015 1:52 AM T [facility] CO2 24 23 - 32 mmol/L 05/31/2015 1:52 AM [facility] Anion Gap 11 0 - 15 mmol/L 05/31/2015 1:52 AM T [facility] Calcium 8.6 8.5 - 10.5 mg/dL 05/31/2015 1:52 AM T [facility] eGFR- >60 05/31/2015 1:52 AM T [facility] eGFR-All Other Races >60 . 05/31/2015 1:52 AM [facility] Comment: eGFR (Estimated GFR) Units [...] Marcial Escobar (Hist) Lin LABORATORY Final Result [facility] [address] [facility] [place] [address] * (ABNORMAL) LIPID PANEL BASIC (05/16/2015 10:42 AM EDT) Triglyceride 118 30 - 149 mg/dL 05/16/2015 6:55 PM EDT [facility] Cholesterol, Total 142 100 - 199 mg/dL 05/16/2015 6:55 PM EDT [facility] HDL Cholesterol 65 >55 mg/dL 5 6:55 PM EDT [facility] VLDL Cholesterol 24 6 - 40 mg/dL 05/16/2015 6:55 PM EDT [facility] LDL Cholesterol, Calculated 53(L) 60 - 129 mg/dL 05/16/2015 6:55 PM EDT [facility] Fasting Time Unknown hrs 05/16/2015 2:56 PM EDT [facility] TC:HDL Ratio 2.18 1.00 - 5.00 05/16/2015 6:55 PM EDT [facility] LDL:HDL Ratio 0.82 0.50 - 3.55 05/16/2015 6:55 PM EDT [facility] Non HDL Cholesterol 77(L) 90 - 159 mg/dL 05/16/2015 6:55 PM EDT [facility] Blood specimen (specimen) BLOOD SPECIMEN / Unknown 05/16/2015 10:42 AM EDT 05/16/2015 10:46 AM EDT us Warner Conde MD LABORATORY Final Result [facility] [address] [place] [address] from Last 3 Months or Most Recently Relevant to Health Maintenance Insurance MEDICARE [place]ICAID [place]
--- OUTSIDE RECORDS SUMMARY | 2025-04-10 15:18 | XMS_ITS | Encounter Summary ---
Author Organization [facility] Address [address] [place] [address] Phone Care Team Providers Care Buffing Wheel Inspector Name Role Phone Generic Provider, No Assigned Pcp Primary Car e Provider Unavailable Diane Min RN Unavailable Unavailable June Preston MD Unavailable Conchita Aden MD Primary Care Provider [phone] Diane Min RN Unavailable Unavailable Encounter Details Date Type Department Care Team (Late st Contact Info) Description 11/05/2024 Scanned Document [facility] [address] [place] [address] Scanning, Generic Provider Social History [...] place to sleep or slept in a penitentiary (including now)? No 02/16/2024 Housing Stability Vital Sign Answer Mookie e Recorded In the last 12 months, was t here a time when you were not able to pay the mortgage or rent on time? No 09/01/2024 In the past 12 months, how m any times have you moved where you were living? 0 09/01/2024 At any time in the past 12 m [facility], were you homeless or living in a penitentiary (including now)? No 09/01/2024 Comments No Sex [...] Hospital Encounter [facility] [address] [place] [phone] Kervin Fair MD [address] [place] [address] Ventricular tachycardia (Multi) 04/14/2025 11:00 AM EDT - 04/14/2025 3:00 PM EDT Surgery [facility] [address] [place] [phone] Kervin Fair MD [address] [place], [place] [id number] [place] [[id number] (CPT )] 07/14/2025 1:00 PM EDT Office Visit [facility] [address] [facility] [address] [place] [address] Oscar Rodriguez MD [address] [place], [place] [phone] 09/26/2025 12:20 PM EST Appointment [facility] [address] [place] [address] 09/26/2025 1:00 PM EST Office Visit [facility] [address] [facility] [address] [place] [address] June Preston MD [address] [facility] Medical Office Bldg, [address] [place] [address] documented as of this encounter Visit Diagnoses [...] documented as of this encounter Care Teams Buffing Wheel Inspector Relationship Specialty Start Date End Date Generic Provider, No [place]igned [place] [address] PCP - General Public Safety Teacher 08/08/24 11/10/24 Conchita Aden MD [address] [place] [address] [place] [address] PCP - General Family Medicine 11/11/24 Diane Min, pre planning advisorDude Wrangler 09/05/24 12/06/24 June Preston MD [address] [facility], [facility] [address] [place] [address] Machinist First Class Electrophysiology 09/13/24 Diane Min, pre planning advisorDude Wrangler 01/16/25 01/31/25 documented as of this encounter
--- OUTSIDE RECORDS SUMMARY | 2025-04-10 15:18 | XMS_ITS | Clinical Summary ---
Author Organization [facility] Address [address] [place] [address] Phone Care Team Providers Care Application Support Intern Name Role Phone June Preston MD Unavailable Conchita Aden MD Primary Care Provider [phone] Allergies No known active allergies Medications lansoprazole [...] aspirin 81 mg EC tabletIndications:A therosclerosis of [place] coronary artery of [place] heart without angina pectoris Take 1 tablet (81 mg) by mouth 2 times a week. 5 11/14/19 Active rosuvastatin (Crestor) 20 mg tabletIndications:A therosclerosis of [place] coronary artery of [place] heart without angina pectoris,Mixed hyperlipidemia Take 1 tablet (20 mg) by mouth once daily. 90 tablet 3 5 11/11/19 Active spironolactone (Aldactone) 25 mg tabletIndications:E ssential hypertension Take 1 tablet (25 mg) by mouth once daily. 90 tablet 3 5 11/15/19 Active Invokana 300 mgIndications:Type 2 diabetes mellitus without complication, without long-term current use of insulin,Atheroscler osis of [place] coronary artery of [place] heart without angina pectoris,Chronic systolic CHF (congestive heart failure) Take 1 tablet (300 mg) by mouth once daily in the morning. Take before meals. 90 tablet 3 5 11/21/19 Active ranolazine (Ranexa) 500 mg 12 hr tabletIndications:A therosclerosis of [place] coronary artery of [place] heart without angina pectoris Take 1 tablet [...] i) 09/30/2023 Moderate persistent asthma without complication ([facility]) 09/30/2023 Oral thrush 09/30/2023 Oropharyngeal dysphagia 09/30/2023 Polyneuropathy due to type 2 diabetes mellitus ( Multi) 09/30/2023 Stable angina pectoris due t o arteriosclerosis of coronary artery 09/30/2023 Urge incontinence of urine 09/30/2023 Atherosclerosis of [place] co ronary artery of [place] heart without angina pectoris 07/29/2023 Chronic obstructive [...] bowel function Postoperative pain 05/23/2015 Overview (09/30/2023): 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 [...] - 04/03/2025 11:59 PM EDT Hospital Encounter [facility] [address] [place] [address] Ventricular tachycardia (CMS/HCC); Abnormal result of cardiovascular function study, unspecified Discharge Disposition: Home 04/03/2025 Travel 03/09/2025 9:35 AM EDT - 03/09/2025 11:59 PM EDT Hospital Encounter [facility] [place] [address] [place] [address] ICD (implantable cardioverter-defibril lator) in place; Paroxysmal ventricular tachycardia Discharge Disposition: Home 02/21/2025 Orders Only [facility] [address] [place] [address] Kervin Deshpande MD Chronic systolic CHF (congestive heart failure) (Primary Dx) 02/10/2025 Scanned Document [facility] [address] [place] [address] Scanning, Generic Provider 02/07/2025 11:30 AM EDT Office Visit [facility] [address] [place] [address] Kervin Deshpande MD Ventricular tachycardia (Multi); ICD (implantable cardioverter-defibril lator) in place 02/07/2025 Travel 01/24/2025 Refill [place] [facility] [address] [place] [address] Dia Lao, BULL BUCKER ICD (implantable cardioverter-defibril lator) discharge; Paroxysmal ventricular tachycardia (Multi) 01/19/2025 Telephone [facility] [address] [place] [address] Kervin Deshpande MD 01/16/2025 Patient Outreach [facility] [address] [place] [address] Diane Min, RN 01/12/2025 Telephone [facility] [address] [place] [address] Kervin Deshpande MD 01/09/2025 7:20 AM EDT - 01/09/2025 11:59 PM EDT Hospital Encounter [facility] [place] [address] [place] [address] Ventricular tachycardia (Multi) Discharge Disposition: Home 01/08/2025 7:01 PM EDT - 01/14/2025 12:51 PM EDT Hospital Encounter [facility] [place] 8 Cardiac Intensive Care [address] [place] [facility] [place] [address] Otis Chappell, Yonis Manuel MD Sehgal, MD Halie Fields Tahereh, MD Kaniecki, Dani Romero, SENIOR MAINTENANCE MACHINIST-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 Never 01/08/2025 [facility] Utilities Answer Date Recorded In the past 12 months has e SMIC, oil, or water ABS[employer] threatened to shut off services in your [...] week 01/08/2025 How often do you attend orthodoxy or sikhism serv ices? Patient declined 01/08/2025 Do you belong to any clubs o r organizations such as orthodoxy groups, unions, fraternal or athletic groups, or [...] Recorded Patient Health Questionnaire-2 Score 0 01/08/2025 [facility] - [...] living in a retirement (including now)? No 01/08/2025 Comments No Sex [...] EDT Hospital Encounter [facility] [address] [place] [address] Kervin Deshpande MD [address] [place] [address] Ventricular tachycardia (Multi) 04/14/2025 11:00 AM EDT - 04/14/2025 3:00 PM EDT Surgery [facility] [address] [facility] [address] [place] [phone] Kervin Deshpande MD [address] [place] [address] [place] [[address] (CPT )] 07/14/2025 1:00 PM EDT Office Visit [facility] [address] [facility] [address] [place] [address] Oscar Rodriguez MD [address] [facility] [place] [address] 09/26/2025 12:20 PM EST Appointment [facility] [place] [address] [place] [address] 09/26/2025 1:00 PM EST Office Visit [facility] [address] [facility] [address] [place] [address] June Preston MD [address] [facility] [address], [address] [place] [address] Health Maintenance Due Date Last Done Comments [...] this topic Medical Devices Implanted Type Area Windows Security Analyst Device Identifier Shelf Expiration Date Model / [...] Anand Baugh 04/04/2025 1:16 AM Dictation workstation: [id number] Narrative 04/04/2025 1:16 AM EDT Interpreted By: Anand Baugh and Okyere Robert STUDY: CT HEART STRUCTURE MORPHOLOGY W IV CONTRAST; 04/03/2025 1:36 pm INDICATION: Signs/Symptoms:For Ventricular Tachycardia ablation planning; late iodine enhancement CT scan; inHeart protocol; must be done at [facility]. COMPARISON: None. ACCESSION NUMBER(S): [id number] ORDERING CLINICIAN: KERVIN DESHPANDE TECHNIQUE: Using multi-detector [...] about 25-50% luminal stenosis which fills via [id number] collaterals. CARDIAC CHAMBERS: The cardiac chambers demonstrate [...] scan; inHeart protocol; must be done at [facility]. COMPARISON: None. ACCESSION NUMBER(S): [id number] ORDERING CLINICIAN: KERVIN DESHPANDE TECHNIQUE: Using multi-detector [...] about 25-50% luminal stenosis which fills via [id number] collaterals. CARDIAC CHAMBERS: The cardiac chambers demonstrate [...] Anand Baugh 04/04/2025 1:16 AM Dictation workstation: [id number] Kervin Deshpande MD Jeanne CT PROCEDURES Final Result * CARDIAC DEVICE CHECK - REMOTE - ICD (03/09/2025 9:38 AM EDT) Only the most recent of2 resultswithin the time period is included. Anatomical Region Laterality Modality Monitor/Device 03/09/2025 6:00 AM EDT us June Preston MD CV IMPLANTABLE CARDIAC DEVICE SC OCEDURES Final Result * Nuclear Stress Test [...] POCT GLUCOSE (01/14/2025 10:38 AM EDT) Pathologist [facility] POCT Glucose 90 74 - 99 mg/dL 01/14/2025 10:40 AM EDT [facility] Blood Capillary blood specimen / Unknown 01/14/2025 10:38 AM EDT 01/14/2025 10:40 AM EDT us Gayle Max MD LAB POINT OF CAR E TEST DOCKED DEVICE UNSOLICITED RESULTS Final Result Performing Organization Address City/[facility]/ZIP Co de Phone Number [facility] [address] [place] [address] * (ABNORMAL) POCT GLUCOSE (01/14/2025 6:29 AM EDT) POCT Glucose 100(H) 74 - 99 mg/dL 01/14/2025 6:31 AM EDT [facility] Blood Capillary blood specimen / Unknown 01/14/2025 6:29 AM EDT 01/14/2025 6:31 AM EDT Gayle Max MD LAB POINT OF CAR E TEST DOCKED DEVICE UNSOLICITED RESULTS Final Result Performing Organization Address City/[facility]/ZIP Co de Phone Number [facility] [address] [place] [address] * Phosphorus (01/14/2025 5:22 AM EDT) Only the most recent of7 resultswithin the time period is included. [facility] Phosphorus 3.1 2.5 - 4.9 mg/dL LAB CHEMISTRY METHOD 01/14/2025 6:34 AM EDT [facility] Comment:The performance selena acteristics of phosphorus [...] Michelle MD LAB BLOOD ORDERABLES Final Result [facility] [address] [place] [address] * (ABNORMAL) Magnesium (01/14/2025 5:22 AM EDT) Only the most recent of7 resultswithin the time period is included. Magnesium 1.55(L) 1.60 - 2.40 mg/dL LAB CHEMISTRY METHOD 01/14/2025 6:34 AM EDT [facility] Blood Venous blood specimen / Unknown Venipuncture / Unknown 01/14/2025 5:22 AM EDT 01/14/2025 6:09 AM EDT us Srinivasa Michelle MD LAB BLOOD ORDERABLES Final Result [facility] [address] [place] [address] * (ABNORMAL) POCT GLUCOSE (01/13/2025 9:33 PM EDT) POCT Glucose 114(H) 74 - 99 mg/dL 01/13/2025 9:35 PM EDT [facility] Blood Capillary blood specimen / Unknown 01/13/2025 9:33 PM EDT 01/13/2025 9:35 PM EDT us Gayle Max MD LAB POINT OF CAR E TEST DOCKED DEVICE UNSOLICITED RESULTS Final Result [facility] [address] [place] [address] * POCT GLUCOSE (01/13/2025 4:22 PM EDT) POCT Glucose 90 74 - 99 mg/dL 01/13/2025 4:23 PM EDT [facility] Blood Capillary blood specimen / Unknown 01/13/2025 4:22 PM EDT 01/13/2025 4:23 PM EDT us Gayle Max MD LAB POINT OF CAR E TEST DOCKED DEVICE UNSOLICITED RESULTS Final Result Performing Organization Address City/[facility]/ZIP Co de Phone Number [facility] [address] [place] [address] * (ABNORMAL) POCT GLUCOSE (01/13/2025 11:05 AM EDT) POCT Glucose 106(H) 74 - 99 mg/dL 01/13/2025 11:07 AM EDT [facility] Blood Capillary blood specimen / Unknown 01/13/2025 11:05 AM EDT 01/13/2025 11:07 AM EDT Gayle Max MD LAB POINT OF CAR E TEST DOCKED DEVICE UNSOLICITED RESULTS Final Result Performing Organization Address City/[facility]/ZIP Co de Phone Number [facility] [address] [place] [address] * POCT GLUCOSE (01/13/2025 7:26 AM EDT) POCT Glucose 82 74 - 99 mg/dL 01/13/2025 7:27 AM EDT [facility] Blood Capillary blood specimen / Unknown 01/13/2025 7:26 AM EDT 01/13/2025 7:27 AM EDT Gayle Max MD LAB POINT OF CAR E TEST DOCKED DEVICE UNSOLICITED RESULTS Final Result Performing Organization Address [facility] Co de Phone Number [facility] [address] [place] [address] * (ABNORMAL) Basic Metabolic Panel (01/13/2025 5:23 AM EDT) Only the most recent of3 resultswithin the time period is included. Glucose 80 74 - 99 mg/dL LAB CHEMISTRY METHOD 01/13/2025 6:28 AM EDT [facility] Sodium 132(L) 136 - 145 mmol/L LAB CHEMISTRY METHOD 01/13/2025 6:28 AM EDT [facility] Potassium 3.6 3.5 - 5.3 mmol/L LAB CHEMISTRY METHOD 01/13/2025 6:28 AM EDT [facility] Chloride 99 98 - 107 mmol/L LAB CHEMISTRY METHOD 01/13/2025 6:28 AM EDT [facility] Bicarbonate 27 21 - 32 mmol/L LAB CHEMISTRY METHOD 01/13/2025 6:28 AM EDT [facility] Anion Gap 10 10 - 20 mmol/L LAB CHEMISTRY METHOD 01/13/2025 6:28 AM EDT [facility] Urea Nitrogen 7 6 - 23 mg/dL LAB CHEMISTRY METHOD 01/13/2025 6:28 AM EDT [facility] Creatinine 0.44(L) 0.50 - 1.05 mg/dL LAB CHEMISTRY METHOD 01/13/2025 6:28 AM EDT [facility] eGFR >90 >60 mL/min/1. 73m*2 LAB CHEMISTRY METHOD 01/13/2025 6:28 AM EDT [facility] Comment: Calculations of estimated GFR are performed using the 2020 CKD-EPI Study Refit equation without the race variable for the IDMS-Traceable creatinine methods. https://jasn.asnjournals.org/content/early//ASN.5487829236 Calcium 8.2(L) 8.6 - 10.3 mg/dL LAB CHEMISTRY METHOD 01/13/2025 6:28 AM EDT [facility] Blood Venous blood specimen / Unknown Venipuncture / Unknown 01/13/2025 5:23 AM EDT 01/13/2025 5:54 AM EDT us Gayle Max MD LAB BLOOD ORDERABLES Fin al Result [facility] [address] [place] [address] * Lavender Top (01/13/2025 5:19 AM EDT) Extra Tube Hold for add-ons. 01/13/2025 7:01 AM EDT [facility] Comment:Auto resulted. Blood Venous blood specimen / Unknown 01/13/2025 5:19 AM EDT 01/13/2025 5:56 AM EDT Gayle Mxa MD LAB BLOOD ORDERABLES Fin al Result [facility] [address] [place] [address] * POCT GLUCOSE (01/13/2025 12:27 AM EDT) POCT Glucose 89 74 - 99 mg/dL 01/13/2025 12:29 AM EDT [facility] Blood Capillary blood specimen / Unknown 01/13/2025 12:27 AM EDT 01/13/2025 12:29 AM EDT us Gayle Max MD LAB POINT OF CAR E TEST DOCKED DEVICE UNSOLICITED RESULTS Final Result [facility] [address] [place] [address] * (ABNORMAL) POCT GLUCOSE (01/12/2025 7:39 PM EDT) POCT Glucose 157(H) 74 - 99 mg/dL 01/12/2025 7:41 PM EDT [facility] Blood Capillary blood specimen / Unknown 01/12/2025 7:39 PM EDT 01/12/2025 7:41 PM EDT us Gayle Max MD LAB POINT OF CAR E TEST DOCKED DEVICE UNSOLICITED RESULTS Final Result [facility] [address] [place] [address] * POCT GLUCOSE (01/12/2025 4:08 PM EDT) POCT Glucose 92 74 - 99 mg/dL 01/12/2025 4:10 PM EDT [facility] Blood Capillary blood specimen / Unknown 01/12/2025 4:08 PM EDT 01/12/2025 4:10 PM EDT us Gayle Max MD LAB POINT OF CAR E TEST DOCKED DEVICE UNSOLICITED RESULTS Final Result Performing Organization Address [facility]/ZIP Co de Phone Number [facility] [address] [place] [phone] * POCT GLUCOSE (01/12/2025 11:02 AM EDT) POCT Glucose 93 74 - 99 mg/dL 01/12/2025 11:04 AM EDT [facility] Blood Capillary blood specimen / Unknown 01/12/2025 11:02 AM EDT 01/12/2025 11:04 AM EDT us Gayle Max MD LAB POINT OF CAR E TEST DOCKED DEVICE UNSOLICITED RESULTS Final Result Performing Organization Address [facility] Co de Phone Number [facility] [address] [place] [address] * (ABNORMAL) POCT GLUCOSE (01/12/2025 7:02 AM EDT) POCT Glucose 113(H) 74 - 99 mg/dL 01/12/2025 7:03 AM EDT [facility] Blood Capillary blood specimen / Unknown 01/12/2025 7:02 AM EDT 01/12/2025 7:03 AM EDT us Gayle Max MD LAB POINT OF CAR E TEST DOCKED DEVICE UNSOLICITED RESULTS Final Result Performing Organization Address City/[facility]/ZIP Co de Phone Number [facility] [address] [place] [address] * POCT GLUCOSE (01/12/2025 6:39 AM EDT) POCT Glucose 77 74 - 99 mg/dL 01/12/2025 6:40 AM EDT [facility] Blood Capillary blood specimen / Unknown 01/12/2025 6:39 AM EDT 01/12/2025 6:40 AM EDT us Gayle Max MD LAB POINT OF CAR E TEST DOCKED DEVICE UNSOLICITED RESULTS Final Result [facility] [address] [place], [place] [id number] * (ABNORMAL) CBC (01/12/2025 5:19 AM EDT) Only the most recent of4 resultswithin the time period is included. WBC 7.6 4.4 - 11.3 x10*3/uL LAB HEMATOLOGY METHOD 01/12/2025 6:13 AM EDT [facility] nRBC 0.0 0.0 - 0.0 /100 WBCs LAB HEMATOLOGY METHOD 01/12/2025 6:13 AM EDT [facility] RBC 3.54(L) 4.00 - 5.20 x10*6/uL LAB HEMATOLOGY METHOD 01/12/2025 6:13 AM EDT [facility] Hemoglobin 8.7(L) 12.0 - 16.0 g/dL LAB HEMATOLOGY METHOD 01/12/2025 6:13 AM EDT [facility] Hematocrit 26.1(L) 36.0 - 46.0 % LAB HEMATOLOGY METHOD 01/12/2025 6:13 AM EDT [facility] MCV 74(L) 80 - 100 fL LAB HEMATOLOGY METHOD 01/12/2025 6:13 AM EDT [facility] MCH 24.6(L) 26.0 - 34.0 pg LAB HEMATOLOGY METHOD 01/12/2025 6:13 AM EDT [facility] MCHC 33.3 32.0 - 36.0 g/dL LAB HEMATOLOGY METHOD 01/12/2025 6:13 AM [facility] RDW 17.1(H) 11.5 - 14.5 % LAB HEMATOLOGY METHOD 01/12/2025 6:13 AM [facility] Platelets 244 150 - 450 x10*3/uL LAB HEMATOLOGY METHOD 01/12/2025 6:13 AM [facility] Blood Venous blood specimen / Unknown Venipuncture / Unknown 01/12/2025 5:19 AM EDT 01/12/2025 6:06 AM EDT us Gayle Max MD LAB BLOOD ORDERABLES Fin al Result Performing Organization Address [facility]/ZIP Co de Phone Number [facility] [address] [place] [address] * POCT GLUCOSE (01/11/2025 8:48 PM EDT) POCT Glucose 98 74 - 99 mg/dL 01/11/2025 8:50 PM EDT [facility] Blood Capillary blood specimen / Unknown 01/11/2025 8:48 PM EDT 01/11/2025 8:50 PM EDT us Gayle Max MD LAB POINT OF CAR E TEST DOCKED DEVICE UNSOLICITED RESULTS Final Result Performing Organization Address City/[facility]/ZIP Co de Phone Number [facility] [address] [place] [address] * POCT GLUCOSE (01/11/2025 4:05 PM EDT) POCT Glucose 89 74 - 99 mg/dL 01/11/2025 4:07 PM EDT [facility] Blood Capillary blood specimen / Unknown 01/11/2025 4:05 PM EDT 01/11/2025 4:07 PM EDT us Gayle Max MD LAB POINT OF CAR E TEST DOCKED DEVICE UNSOLICITED RESULTS Final Result Performing Organization Address City/[facility]/ZIP Co de Phone Number [facility] [address] [place] [address] * POCT GLUCOSE (01/11/2025 11:04 AM EDT) POCT Glucose 91 74 - 99 mg/dL 01/11/2025 11:06 AM EDT [facility] Blood Capillary blood specimen / Unknown 01/11/2025 11:04 AM EDT 01/11/2025 11:06 AM EDT us Gayle Max MD LAB POINT OF CAR E TEST DOCKED DEVICE UNSOLICITED RESULTS Final Result [facility] [address] [place] [address] * Stool Pathogen Panel, PCR (01/11/2025 10:31 AM EDT) Campylobacter Group Not Detected Not Detected 01/12/2025 7:00 AM EDT [facility] Salmonella species Not Detected Not Detected 01/12/2025 7:00 AM EDT [facility] Shigella species Not Detected Not Detected 01/12/2025 7:00 AM EDT [facility] Vibrio Group Not Detected Not Detected 01/12/2025 7:00 AM EDT [facility] Yersinia Enterocolitica Not Detected Not Detected 01/12/2025 7:00 AM EDT [facility] Shiga Toxin 1 Not Detected Not Detected 01/12/2025 7:00 AM EDT [facility] Shiga Toxin 2 Not Detected Not Detected 01/12/2025 7:00 AM EDT [facility] Norovirus GI/GII Not Detected Not Detected 01/12/2025 7:00 AM EDT [facility] Rotavirus A Not Detected Not Detected 01/12/2025 7:00 AM EDT [facility] Stool Stool / Unknown 01/11/2025 1 0:31 AM EDT 01/11/2025 10:38 AM EDT us Gayle Max MD LAB MICROBIOLOGY - GENER AL ORDERABLES Final Result [facility] [address] [facility] [id number] [place] [address] * (ABNORMAL) POCT GLUCOSE (01/11/2025 6:32 AM EDT) POCT Glucose 123(H) 74 - 99 mg/dL 01/11/2025 6:33 AM EDT [facility] Blood Capillary blood specimen / Unknown 01/11/2025 6:32 AM EDT 01/11/2025 6:33 AM EDT us Gayle Max MD LAB POINT OF CAR E TEST DOCKED DEVICE UNSOLICITED RESULTS Final Result [facility] [address] [place] [address] * (ABNORMAL) POCT GLUCOSE (01/10/2025 11:36 PM EDT) POCT Glucose 115(H) 74 - 99 mg/dL 01/10/2025 11:38 PM EDT [facility] Blood Capillary blood specimen / Unknown 01/10/2025 11:36 PM EDT 01/10/2025 11:38 PM EDT us Gayle Max MD LAB POINT OF CAR E TEST DOCKED DEVICE UNSOLICITED RESULTS Final Result [facility] [address] [place] [address] * (ABNORMAL) POCT GLUCOSE (01/10/2025 7:46 PM EDT) POCT Glucose 108(H) 74 - 99 mg/dL 01/10/2025 7:48 PM EDT [facility] Blood Capillary blood specimen / Unknown 01/10/2025 7:46 PM EDT 01/10/2025 7:48 PM EDT us Gayle Max MD LAB POINT OF CAR E TEST DOCKED DEVICE UNSOLICITED RESULTS Final Result [facility] [address] [place] [address] * (ABNORMAL) POCT GLUCOSE (01/10/2025 2:44 PM EDT) POCT Glucose 108(H) 74 - 99 mg/dL 01/10/2025 2:46 PM EDT [facility] Blood Capillary blood specimen / Unknown 01/10/2025 2:44 PM EDT 01/10/2025 2:46 PM EDT us Gayle Max MD LAB POINT OF CAR E TEST DOCKED DEVICE UNSOLICITED RESULTS Final Result Performing Organization Address [facility]/ZIP Co de Phone Number [facility] [address] [place] [address] * Heparin Assay (01/10/2025 11:56 AM EDT) Only the most recent of5 resultswithin the time period is included. [facility] Heparin Unfractionated 0.3 See Comment Below for Therapeutic Ranges IU/mL LAB COAGULATION METHOD 01/10/2025 12:14 PM EDT [facility] Blood Venous blood specimen / Unknown Venipuncture / Unknown 01/10/2025 11:56 AM EDT 01/10/2025 11:59 AM EDT Narrative [facility] - 01/10/2025 12:14 PM EDT The therapeutic reference range for UFH may be either 0.3-0.6 IU/mL or 0.3-0.7 IU/mL based on the clinical setting for anticoagulant therapy and the associated nomogram used. For Heparin dosing guidelines based on clinical scenario and Heparin Assay results, please refer to local Pharmacy and the [facility] Guidelines for Anticoagulation Therapy available on the [facility] [[email or web address]] intranet at: [email or web address] us Gayle Max MD LAB BLOOD ORDERABLES Fin al Result Performing Organization Address City/[facility]/ZIP Co de Phone Number [facility] [address] [place], [place] [id number] * POCT GLUCOSE (01/10/2025 10:54 AM EDT) POCT Glucose 79 74 - 99 mg/dL 01/10/2025 10:56 AM EDT [facility] Blood Capillary blood specimen / Unknown 01/10/2025 10:54 AM EDT 01/10/2025 10:56 AM EDT us Gayle Max MD LAB POINT OF CAR E TEST DOCKED DEVICE UNSOLICITED RESULTS Final Result [facility] [address] [place] [address] * POCT GLUCOSE (01/10/2025 6:48 AM EDT) POCT Glucose 94 74 - 99 mg/dL 01/10/2025 6:49 AM EDT [facility] Blood Capillary blood specimen / Unknown 01/10/2025 6:48 AM EDT 01/10/2025 6:49 AM EDT us Gayle Max MD LAB POINT OF CAR E TEST DOCKED DEVICE UNSOLICITED RESULTS Final Result Performing Organization Address City/[facility]/ZIP Co de Phone Number [facility] [address] [place] [address] * (ABNORMAL) Comprehensive Metabolic Panel (01/10/2025 5:21 AM EDT) Only the most recent of3 resultswithin the time period is included. Glucose 84 74 - 99 mg/dL LAB CHEMISTRY METHOD 01/10/2025 6:46 AM EDT [facility] Sodium 128(L) 136 - 145 mmol/L LAB CHEMISTRY METHOD 01/10/2025 6:46 AM EDT [facility] Potassium 3.6 3.5 - 5.3 mmol/L LAB CHEMISTRY METHOD 01/10/2025 6:46 AM EDT [facility] Chloride 95(L) 98 - 107 mmol/L LAB CHEMISTRY METHOD 01/10/2025 6:46 AM [facility] Bicarbonate 23 21 - 32 mmol/L LAB CHEMISTRY METHOD 01/10/2025 6:46 AM [facility] Anion Gap 14 10 - 20 mmol/L LAB CHEMISTRY METHOD 01/10/2025 6:46 AM [facility] Urea Nitrogen 11 6 - 23 mg/dL LAB CHEMISTRY METHOD 01/10/2025 6:46 AM [facility] Creatinine 0.61 0.50 - 1.05 mg/dL LAB CHEMISTRY METHOD 01/10/2025 6:46 AM [facility] eGFR >90 >60 mL/min/1. 73m*2 LAB CHEMISTRY METHOD 01/10/2025 6:46 AM [facility] Comment: Calculations of estimated GFR are performed using the 2020 CKD-EPI Study Refit equation without the race variable for the IDMS-Traceable creatinine methods. https://jasn.asnjournals.org/content///ASN.1527177704 Calcium 8.0(L) 8.6 - 10.3 mg/dL LAB CHEMISTRY METHOD 01/10/2025 6:46 AM [facility] Albumin 2.9(L) 3.4 - 5.0 g/dL LAB CHEMISTRY METHOD 01/10/2025 6:46 AM [facility] Alkaline Phosphatase 35 33 - 136 U/L LAB CHEMISTRY METHOD 01/10/2025 6:46 AM [facility] Total Protein 5.7(L) 6.4 - 8.2 g/dL LAB CHEMISTRY METHOD 01/10/2025 6:46 AM [facility] AST 37 9 - 39 U/L LAB CHEMISTRY METHOD 01/10/2025 6:46 AM [facility] Bilirubin, Total 0.2 0.0 - 1.2 mg/dL LAB CHEMISTRY METHOD 01/10/2025 6:46 AM [facility] ALT 23 7 - 45 U/L LAB CHEMISTRY METHOD 01/10/2025 6:46 AM [facility] Comment:Patients treated wit h Sulfasalazine may generate falsely decreased results for ALT. Blood Venous blood specimen / Unknown Venipuncture / Unknown 01/10/2025 5:21 AM EDT 01/10/2025 6:09 AM EDT us Srinivasa Michelle MD LAB BLOOD ORDERABLES Final Result [facility] [address] [place] [address] * POCT GLUCOSE (01/10/2025 5:08 AM EDT) POCT Glucose 93 74 - 99 mg/dL 01/10/2025 5:11 AM EDT [facility] Blood Capillary blood specimen / Unknown 01/10/2025 5:08 AM EDT 01/10/2025 5:11 AM EDT us Gayle Max MD LAB POINT OF CAR E TEST DOCKED DEVICE UNSOLICITED RESULTS Final Result Performing Organization Address City/[facility]/ZIP Co de Phone Number [facility] [address] [place] [phone] * (ABNORMAL) POCT GLUCOSE (01/10/2025 12:39 AM EDT) POCT Glucose 104(H) 74 - 99 mg/dL 01/10/2025 12:42 AM EDT [facility] Blood Capillary blood specimen / Unknown 01/10/2025 12:39 AM EDT 01/10/2025 12:42 AM EDT us Gayle Max MD LAB POINT OF CAR E TEST DOCKED DEVICE UNSOLICITED RESULTS Final Result Performing Organization Address City/[facility]/ZIP Co de Phone Number [facility] [address] [place] [address] * POCT GLUCOSE (01/09/2025 9:17 PM EDT) POCT Glucose 91 74 - 99 mg/dL 01/09/2025 9:38 PM EDT [facility] Blood Capillary blood specimen / Unknown 01/09/2025 9:17 PM EDT 01/09/2025 9:38 PM EDT us Gayle Max MD LAB POINT OF CAR E TEST DOCKED DEVICE UNSOLICITED RESULTS Final Result Performing Organization Address City/[facility]/ZIP Co de Phone Number [facility] [address] [place] [phone] * POCT GLUCOSE (01/09/2025 6:56 PM EDT) [facility] Signature POCT Glucose 81 74 - 99 mg/dL 01/09/2025 6:58 PM EDT [facility] Blood Capillary blood specimen / Unknown 01/09/2025 6:56 PM EDT 01/09/2025 6:58 PM EDT us Michelle Snowden MD LAB POINT OF CARE TEST DOCKED DEVICE UNSOLICITED RESULTS Final Result Performing Organization Address [facility]/ZIP Co de Phone Number [facility] [address] [place] [address] * (ABNORMAL) POCT GLUCOSE (01/09/2025 3:33 PM EDT) [facility] POCT Glucose 104(H) 74 - 99 mg/dL 01/09/2025 3:35 PM EDT [facility] Blood Capillary blood specimen / Unknown 01/09/2025 3:33 PM EDT 01/09/2025 3:35 PM EDT us Michelle Snowden MD LAB POINT OF CARE TEST DOCKED DEVICE UNSOLICITED RESULTS Final Result Performing Organization Address [facility]/ZIP Co de Phone Number [facility] [address] [place] [phone] * TRANSTHORACIC ECHO (TTE) COMPLETE WITH CONTRAST [...] Narrative SYNGO - 01/10/2025 8:51 AM EDT [place] [id number] TRANSTHORACIC ECHOCARDIOGRAM REPORT Patient Name: [facility] Physician: [id number] Augustus Issa DO Study Date: 01/09/2025 Ordering Provider: [id number] DANI DODGE MRN/PID: [id number] Fellow: Nurse: Date of /Age: 1 1960 / 64 years Shade Cloth Finisher: Gege Balbuena [facility] Gender Assigned at F Additional Staff: : Height: 157.48 cm Admit Date: 01/08/2025 Weight: 67.59 kg Admission Status: Inpatient - Routine BSA / BMI: 1.69 m2 / 27.25 Department Location: [facility] kg/m2 Blood Pressure: 101 /55 mmHg Study Type: TRANSTHORACIC ECHO (TTE) COMPLETE Diagnosis/ICD: Ventricular tachycardia, other-I47.29 Indication: Multiple ICD firings CPT Codes: Echo Complete w Full Doppler-[id number] Patient History: Pacer/Defib: AICD Pertinent History: HTN, [...] LA Area A2C: 19.2 cm2 LA [place] A4C: 6.3 cm LA [place] A2C: 5.7 cm LA Volume Index: 33.4 ml/m2 RIGHT ATRIUM: Normal Ranges: RA Vol A4C: 32.8 ml (8.3-19.5ml) RA Vol Index A4C: 19.4 ml/m2 RA Area A4C: 13.1 cm2 RA [place] A4C: 4.4 cm LV SYSTOLIC FUNCTION: Normal [...] 1.0 m/s (0.6-0.9m/s) PV Max P.9 mmHg [id number] Augustus Issa DO Electronically signed on 01/10/2025 at 8:51:17 AM Wall Scoring Final Procedure Note Augustus Issa DO - 01/10/2025 [place] [id number] TRANSTHORACIC ECHOCARDIOGRAM REPORT Patient Name: [facility] Physician: Demario EricO Study Date: 01/09/2025 Ordering Provider: [id number] JAMES DODGE MRN/PID: [id number] Fellow: Nurse: Date of /Age: 1 1960 / 64 years Shade Cloth Finisher: Yana MURPHY Gender Assigned at F Additional Staff: : Height: 157.48 cm Admit Date: 01/08/2025 Weight: 67.59 kg Admission Status: Inpatient- Routine BSA / BMI: 1.69 m2 / 27.25 Department Location: [facility] kg/m2 Blood Pressure: 101 /55 mmHg Study Type: TRANSTHORACIC ECHO (TTE) COMPLETE Diagnosis/ICD: Ventricular tachycardia, other-I47.29 Indication: Multiple ICD firings CPT Codes: Echo Complete w Full Doppler-[id number] Patient History: Pacer/Defib: AICD Pertinent History: HTN, [...] LA Area A2C: 19.2 cm2 LA [place] A4C: 6.3 cm LA [place] A2C: 5.7 cm LA Volume Index: 33.4 ml/m2 RIGHT ATRIUM: Normal Ranges: RA Vol A4C: 32.8 ml (8.3-19.5ml) RA Vol Index A4C: 19.4 ml/m2 RA Area A4C: 13.1 cm2 RA [place] A4C: 4.4 cm LV SYSTOLIC FUNCTION: Normal [...] 1.0 m/s (0.6-0.9m/s) PV Max P.9 mmHg [id number] Augustus Maegan SALAZAR Electronically signed on 01/10/2025 at 8:51:17 AM Wall Scoring Final us Srinivasa Michelle MD CV ECHO PROCEDURES Final Re sult SYNGO * (ABNORMAL) POCT GLUCOSE (01/09/2025 10:48 AM EDT) POCT Glucose 102(H) 74 - 99 mg/dL 01/09/2025 10:50 AM EDT [facility] Blood Capillary blood specimen / Unknown 01/09/2025 10:48 AM EDT 01/09/2025 10:50 AM EDT us Yonis Fishman MD LAB POINT OF CAR E TEST DOCKED DEVICE UNSOLICITED RESULTS Final Result [facility] [address] [place] [address] * SST TOP (01/09/2025 9:55 AM EDT) Only the most recent of2 resultswithin the time period is included. Extra Tube Hold for add-ons. 01/09/2025 12:02 PM EDT [facility] Comment:Auto resulted. Blood Venous blood specimen / Unknown 01/09/2025 9:55 AM EDT 01/09/2025 10:31 AM EDT Yonis Fishman MD LAB BLOOD ORDERABLES Fin al Result [facility] [address] [place] [address] * MRSA Surveillance for Vancomycin De-escalation, PCR (01/09/2025 12:34 AM EDT) MRSA PCR Not Detected Not Detected X_PERT XPRESS SARS-COV2_ CEPHEID_EU A 01/09/2025 2:04 AM EDT [facility] Swab (Anterior Nares) Non-blood Collection / Unknown 01/09/2025 12:34 AM EDT 01/09/2025 12:41 AM EDT Narrative [facility] - 01/09/2025 2:04 AM EDT This [...] ORD ERABLES Final Result Performing Organization Address City/[facility]/ZIP Co de Phone Number [facility] [address] [place] [address] * Streptococcus pneumoniae Antigen, Urine (01/08/2025 11:59 PM EDT) Pathologist [facility] Streptococcus pneumoniae Ag, Urine Negative Negative 01/09/2025 11:55 AM EDT [facility] Urine Urine specimen / Unknown Non-blood Collection / Unknown 01/08/2025 11:59 PM EDT 01/09/2025 12:41 AM EDT Triny Ebenezer ZAVALETA-C LAB MICROBIOLOGY - GENERAL ORD ERABLES Final Result Performing Organization Address City/[facility]/ZIP Co de Phone Number [facility] [address] [place] [phone] * Legionella Antigen, Urine (01/08/2025 11:59 PM EDT) L. pneumophila Urine Ag Negative Negative 01/09/2025 11:55 AM EDT [facility] Urine Urine specimen / Unknown Non-blood Collection / Unknown 01/08/2025 11:59 PM EDT 01/09/2025 12:41 AM EDT Triny Ebenezer ZAVALETA-C LAB MICROBIOLOGY - GENERAL ORD ERABLES Final Result Performing Organization Address [facility] Co de Phone Number [facility] [address] [place] [address] * (ABNORMAL) Urinalysis with Reflex Microscopic (01/08/2025 11:59 PM EDT) Color, Urine Light-Yellow Light-Yellow , Yellow, Dark-Yellow 01/09/2025 1:17 AM EDT [facility] Appearance, Urine Clear Clear 01/09/2025 1:17 AM EDT [facility] Specific [place], Urine 1.009 1.005 - 1.035 01/09/2025 1:17 AM T [facility] pH, Urine 5.0 5.0, 5.5, 6.0, 6.5, 7.0, 7.5, 8.0 01/09/2025 1:17 AM T [facility] Protein, Urine NEGATIVE NEGATIVE, 10 (TRACE), 20 (TRACE) mg/dL 01/09/2025 1:17 AM T [facility] Glucose, Urine OVER (4+)(A) Normal mg/dL 01/09/2025 1:17 AM EDT [facility] Blood, Urine NEGATIVE NEGATIVE mg/dL 01/09/2025 1:17 AM EDT [facility] Ketones, Urine NEGATIVE NEGATIVE mg/dL 01/09/2025 1:17 AM EDT [facility] Bilirubin, Urine NEGATIVE NEGATIVE mg/dL 01/09/2025 1:17 AM EDT [facility] Urobilinogen, Urine Normal Normal mg/dL 01/09/2025 1:17 AM EDT [facility] Nitrite, Urine NEGATIVE NEGATIVE 01/09/2025 1:17 AM EDT [facility] Leukocyte Esterase, Urine NEGATIVE NEGATIVE 01/09/2025 1:17 AM EDT [facility] Urine Urine specimen / Unknown Non-blood Collection / Unknown 01/08/2025 11:59 PM EDT 01/09/2025 12:41 AM EDT Narrative [facility] - 01/09/2025 1:17 AM EDT OVER is reported when the result is greater than the clinically reportable range. Triny Sol PA-C LAB URINE ORDERABLES Final Res ult [facility] [address] [place] [address] * VERIFY ABO/Rh Group Test (01/08/2025 10:39 PM EDT) ABO TYPE A 01/08/2025 10:56 PM EDT [facility] Rh TYPE POS 01/08/2025 10:56 PM EDT [facility] Blood Venous blood specimen / Unknown Venipuncture / Unknown 01/08/2025 10:39 PM EDT 01/08/2025 10:43 PM EDT Otis Chappell DO LAB BLOOD BANK TEST ORDERAB LES Final Result Performing Organization Address [facility]/ZIP Co de Phone Number [facility] [address] [place] [address], * (ABNORMAL) POCT GLUCOSE (01/08/2025 10:38 PM EDT) POCT Glucose 106(H) 74 - 99 mg/dL 01/08/2025 10:39 PM EDT [facility] Blood Capillary blood specimen / Unknown 01/08/2025 10:38 PM EDT 01/08/2025 10:39 PM EDT Otis Chappell DO LAB POINT OF CARE T EST DOCKED DEVICE UNSOLICITED RESULTS Final Result [facility] [address] [place] [address] * (ABNORMAL) Procalcitonin (01/08/2025 9:34 PM EDT) Pathologist [facility] Procalcitonin 0.39(H) <=0.07 ng/mL LAB CHEMISTRY METHOD 01/09/2025 11:53 AM EDT [facility] Blood Venous blood specimen / Unknown Venipuncture / Unknown 01/08/2025 9:34 PM EDT 01/08/2025 9:38 PM EDT Narrative [facility] - 01/09/2025 11:53 AM EDT Procalcitonin [...] JOSEPHC LAB BLOOD ORDERABLES Final Res ult [facility] [address] [facility] [address] [place] [address] * RSV PCR (01/08/2025 9:33 PM EDT) Pathologist [facility] RSV PCR Not Detected Not Detected X_PERT XPRESS SARS-COV2_ CEPHEID_EU A 01/08/2025 11:23 PM EDT [facility] Swab Nasopharyngeal swab / Unknown Non-blood Collection / Unknown 01/08/2025 9:33 PM EDT 01/08/2025 10:43 PM EDT [facility] - 01/08/2025 11:23 PM EDT This assay is an FDA-cleared, in vitro diagnostic nucleic acid amplification test for the detection of RSV from nasopharyngeal specimens, and has been validated for use at [facility]. Negative results do not preclude RSV infections, and should not be used as the sole basis for diagnosis, treatment, or other management decisions. If Influenza A/B and RSV PCR results are negative, testing for Parainfluenza virus, Adenovirus and Metapneumovirus is routinely performed for pediatric oncology and intensive care inpatients at [facility], and is available on other patients by placing an add-on request. [facility] Ebenezer ZAVALETA-C LAB MOLECULAR DIAGNOSTICS ORDE RABLES Final Result Performing Organization Address City/[facility]/ZIP Co de Phone Number [facility] [address] [place], [place] [id number] * (ABNORMAL) Sars-CoV-2 and Influenza A/B PCR (01/08/2025 9:33 PM EDT) Pathologist [facility] Flu A Result Detected(A) Not Detected X_PERT XPRESS SARS-COV2 _CEPHEID_ EUA 01/08/2025 11:23 PM EDT [facility] Flu B Result Not Detected Not Detected X_PERT XPRESS SARS-COV2 _CEPHEID_ EUA 01/08/2025 11:23 PM EDT [facility] Coronavirus 2019, PCR Not Detected Not Detected X_PERT XPRESS SARS-COV2 _CEPHEID_ EUA 01/08/2025 11:23 PM EDT [facility] Swab Nasopharyngeal swab / Unknown Non-blood Collection / Unknown 01/08/2025 9:33 PM EDT 01/08/2025 10:43 PM EDT Narrative [facility] - 01/08/2025 11:23 PM EDT This assay is an FDA-cleared, in vitro diagnostic nucleic acid amplification test for the qualitative detection and differentiation of SARS CoV-2/ Influenza A/B from nasopharyngeal specimens collected from individuals with signs and symptoms of respiratory tract infections, and has been validated for use at [facility]. Negative results do not preclude COVID-19/ Influenza A/B infections and should not be used as the sole basis for diagnosis, treatment, or other management decisions. Testing for SARS CoV-2 is recommended only for patients who meet current clinical and/or epidemiological criteria defined by federal, state, or local public health directives. Triny Sol PA-C LAB MOLECULAR DIAGNOSTICS DANYEL GOMEZ Final Result [facility] [address] [place] [address] * Staphylococcus aureus/MRSA colonization, Culture (01/08/2025 9:33 PM EDT) [facility] Staph/MRSA Screen Culture No Staphylococcus aureus isolated 01/10/2025 11:36 AM EDT [facility] Swab (Anterior Nares) Non-blood Collection / Unknown 01/08/2025 9:33 PM EDT 01/08/2025 10:43 PM EDT Triny ZAVALETA-Luz LAB MICROBIOLOGY - GENERAL ORD ERABLES Final Result [facility] [address] [address] * Blood Culture (01/08/2025 8:47 PM EDT) Pathologist [facility] Blood Culture No growth at 4 days - FINAL REPORT AUTOMATED MICROBIAL DETECTION SYSTEM (VIRTUO) 01/13/2025 3:02 AM EDT [facility] Blood culture Venous blood specimen / Unknown Blood Culture / Unknown 01/08/2025 8:47 PM EDT 01/08/2025 8:51 PM EDT Triny Sol PA-C LAB MICROBIOLOGY - GENERAL ORD ERABLES Final Result [facility] [address] [place] [address] * Lactate (01/08/2025 8:47 PM EDT) [facility] Lactate 1.0 0.4 - 2.0 mmol/L LAB CHEMISTRY METHOD 01/08/2025 9:11 PM EDT [facility] Blood Venous blood specimen / Unknown Venipuncture / Unknown 01/08/2025 8:47 PM EDT 01/08/2025 8:51 PM EDT Narrative [facility] - 01/08/2025 9:11 PM EDT Venipuncture immediately after or during the administration of Metamizole may lead to falsely low results. Testing should be performed immediately prior to Metamizole dosing. Triny Sol PA-C LAB BLOOD ORDERABLES Final Res ult [facility] [address] [place] [address] * (ABNORMAL) Troponin, High Sensitivity, 1 Hour (01/08/2025 8:46 PM EDT) Pathologist [facility] Troponin I, High Sensitivity 28(H) 0 - 13 ng/L LAB IMMUNOASSAY METHOD 01/08/2025 9:19 PM EDT [facility] Blood Venous blood specimen / Unknown Venipuncture / Unknown 01/08/2025 8:46 PM EDT 01/08/2025 8:51 PM EDT [facility] - 01/08/2025 9:19 [...] performed using a different testing methodology at [facility] than at other [facility] hospitals. Direct result comparisons should only be made within the same method. Dani Dodge SENIOR MAINTENANCE MACHINIST-PIG FARM MANAGER, DNP LAB BLOOD ORDERAB LES Final Result [facility] [address] [place] [id number] * BB ORDER ONLY - Antibody Identification (01/08/2025 8:46 PM EDT) Antibody ID Anti-c and Inconclusive 01/11/2025 2:26 PM EDT [facility] CASE # 01/11/2025 2:26 PM EDT [facility] Blood Venous blood specimen / Unknown Venipuncture / Unknown 01/08/2025 8:46 PM EDT 01/08/2025 8:51 PM EDT Triny Sol PA-C LAB BLOOD BANK TEST ORDERABLES Final Result [facility] [address] [place] [address], * Type and screen (01/08/2025 8:46 PM EDT) ABO TYPE A 01/08/2025 9:38 PM EDT [facility] Rh TYPE POS 01/08/2025 9:38 PM EDT [facility] ANTIBODY SCREEN POS 9:38 PM EDT [facility] Blood Venous blood specimen / Unknown Venipuncture / Unknown 01/08/2025 8:46 PM EDT 01/08/2025 8:51 PM EDT us Triny Sol PA-C LAB BLOOD BANK TEST ORDERABLES Final Result [facility] [address] [place] [address], * XR chest 1 view (01/08/2025 8:06 PM EDT) Anatomical Region Laterality Modality Thoracic, Chest Computed Radiogr aphy 01/08/2025 8:19 PM EDT 01/08/2025 8:19 PM EDT Impressions 01/08/2025 8:17 PM EDT Right-sided airspace consolidation, as above. Clinical correlation and continued follow-up until clearing is recommended. MACRO: None. Signed by: Deion Bonilla 01/08/2025 8:17 PM Dictation workstation: [id number] Narrative 01/08/2025 8:17 PM EDT Interpreted By: Deion Bonilla, STUDY: XR CHEST 1 VIEW 01/08/2025 8:06 pm INDICATION: Signs/Symptoms:increased O2 COMPARISON: 09/01/2024 ACCESSION NUMBER(S): [id number] ORDERING CLINICIAN: TRINY SOL TECHNIQUE: A single [...] INDICATION: Signs/Symptoms:increased O2 COMPARISON: 09/01/2024 ACCESSION NUMBER(S): [id number] ORDERING CLINICIAN: TRINY SOL TECHNIQUE: A single [...] Deion Bonilla 01/08/2025 8:17 PM Dictation workstation: [id number] us Triny Sol PA-C IMG XR PROCEDURES Final Result * (ABNORMAL) CBC and Auto Differential (01/08/2025 7:21 PM EDT) WBC 17.1(H) 4.4 - 11.3 x10*3/uL LAB HEMATOLOGY METHOD 01/08/2025 7:28 PM EDT [facility] nRBC 0.1(H) 0.0 - 0.0 /100 WBCs LAB HEMATOLOGY METHOD 01/08/2025 7:28 PM EDT [facility] RBC 4.09 4.00 - 5.20 x10*6/uL LAB HEMATOLOGY METHOD 01/08/2025 7:28 PM EDT [facility] Hemoglobin 10.4(L) 12.0 - 16.0 g/dL LAB HEMATOLOGY METHOD 01/08/2025 7:28 PM EDT [facility] Hematocrit 30.7(L) 36.0 - 46.0 % LAB HEMATOLOGY METHOD 01/08/2025 7:28 PM EDT [facility] MCV 75(L) 80 - 100 fL LAB HEMATOLOGY METHOD 01/08/2025 7:28 PM EDT [facility] MCH 25.4(L) 26.0 - 34.0 pg LAB HEMATOLOGY METHOD 01/08/2025 7:28 PM [facility] MCHC 33.9 32.0 - 36.0 g/dL LAB HEMATOLOGY METHOD 01/08/2025 7:28 PM [facility] RDW 16.6(H) 11.5 - 14.5 % LAB HEMATOLOGY METHOD 01/08/2025 7:28 PM [facility] Platelets 218 150 - 450 x10*3/uL LAB HEMATOLOGY METHOD 01/08/2025 7:28 PM [facility] Neutrophils % 84.0 40.0 - 80.0 % LAB HEMATOLOGY METHOD 01/08/2025 7:28 PM [facility] Immature Granulocytes %, Automated 0.4 0.0 - 0.9 % LAB HEMATOLOGY METHOD 01/08/2025 7:28 PM [facility] Comment:Immature Granulocyte Count (IG) includes promyelocytes, myelocytes and metamyelocytes but does not include bands. Percent differential counts (%) should be interpreted in the context of the absolute cell counts (cells/UL). Lymphocytes % 10.6 13.0 - 44.0 % LAB HEMATOLOGY METHOD 01/08/2025 7:28 PM [facility] Monocytes % 4.8 2.0 - 10.0 % LAB HEMATOLOGY METHOD 01/08/2025 7:28 PM [facility] Eosinophils % 0.0 0.0 - 6.0 % LAB HEMATOLOGY METHOD 01/08/2025 7:28 PM [facility] Basophils % 0.2 0.0 - 2.0 % LAB HEMATOLOGY METHOD 01/08/2025 7:28 PM [facility] Neutrophils Absolute 14.38(H) 1.20 - 7.70 x10*3/uL LAB HEMATOLOGY METHOD 01/08/2025 7:28 PM [facility] Comment:Percent differential counts (%) should be interpreted in the context of the absolute cell counts (cells/uL). Immature Granulocytes Absolute, Automated 0.07 0.00 - 0.70 x10*3/uL LAB HEMATOLOGY METHOD 01/08/2025 7:28 PM [facility] Lymphocytes Absolute 1.82 1.20 - 4.80 x10*3/uL LAB HEMATOLOGY METHOD 01/08/2025 7:28 PM EDT [facility] Monocytes Absolute 0.83 0.10 - 1.00 x10*3/uL LAB HEMATOLOGY METHOD 01/08/2025 7:28 PM EDT [facility] Eosinophils Absolute 0.00 0.00 - 0.70 x10*3/uL LAB HEMATOLOGY METHOD 01/08/2025 7:28 PM EDT [facility] Basophils Absolute 0.03 0.00 - 0.10 x10*3/uL LAB HEMATOLOGY METHOD 01/08/2025 7:28 PM EDT [facility] Blood Venous blood specimen / Unknown Venipuncture / Unknown 01/08/2025 7:21 PM EDT 01/08/2025 7:26 PM EDT Dani Dodge SENIOR MAINTENANCE MACHINIST-PIG FARM MANAGER, DNP LAB BLOOD ORDERAB LES Final Result [facility] [address] [place] [address] * (ABNORMAL) Troponin I, High Sensitivity, Initial (01/08/2025 7:21 PM EDT) Pathologist [facility] [place] Troponin I, High Sensitivity 29(H) 0 - 13 ng/L LAB IMMUNOASSAY METHOD 01/08/2025 7:52 PM EDT [facility] Blood Venous blood specimen / Unknown Venipuncture / Unknown 01/08/2025 7:21 PM EDT 01/08/2025 7:26 PM EDT [facility] - 01/08/2025 7:52 PM EDT Less [...] performed using a different testing methodology at [facility] than at [facility]. Direct result comparisons should only be made within the same method. us Dani Dodge SENIOR MAINTENANCE MACHINIST-PIG FARM MANAGER, DNP LAB BLOOD ORDERAB LES Final Result Performing Organization Address [facility] Co de Phone Number [facility] [address] [place] [address] * TSH with reflex to Free T4 if abnormal (01/08/2025 7:21 PM EDT) [facility] Thyroid Stimulating Hormone 2.12 0.44 - 3.98 mIU/L LAB IMMUNOASSAY METHOD 01/08/2025 8:19 PM EDT [facility] Blood Venous blood specimen / Unknown Venipuncture / Unknown 01/08/2025 7:21 PM EDT 01/08/2025 7:26 PM EDT [facility] - 01/08/2025 8:19 PM EDT TSH testing is performed using different testing methodology at [facility] than [facility] [place]. Direct result comparisons should only be made within the same method. us Triny Sol PA-C LAB BLOOD ORDERABLES Final Res ult Performing Organization Address [facility] Co de Phone Number [facility] [address] [place] [address] * Coagulation Screen (01/08/2025 7:21 PM EDT) Pathologist [facility] Protime 10.9 9.8 - 12.4 seconds LAB COAGULATION METHOD 01/08/2025 7:39 PM EDT [facility] INR 1.0 0.9 - 1.1 LAB COAGULATION METHOD 01/08/2025 7:39 PM EDT [facility] aPTT 28 26 - 36 seconds LAB COAGULATION METHOD 01/08/2025 7:39 PM EDT [facility] Blood Venous blood specimen / Unknown Venipuncture / Unknown 01/08/2025 7:21 PM EDT 01/08/2025 7:26 PM EDT [facility] - 01/08/2025 7:39 PM EDT The APTT is no longer used for monitoring Unfractionated Heparin Therapy. For monitoring Heparin Therapy, use the Heparin Assay. us Dani Dodge SENIOR MAINTENANCE MACHINIST-PIG FARM MANAGER, DNP LAB BLOOD ORDERAB LES Final Result [facility] [address] [place] [address] * (ABNORMAL) B-type natriuretic peptide (01/08/2025 7:21 PM EDT) BNP 106(H) 0 - 99 pg/mL LAB IMMUNOASSAY METHOD 01/08/2025 8:16 PM EDT [facility] Blood Venous blood specimen / Unknown Venipuncture / Unknown 01/08/2025 7:21 PM EDT 01/08/2025 7:26 PM EDT [facility] - 01/08/2025 8:16 PM EDT <100 pg/mL - Heart failure unlikely 100-299 pg/mL - Intermediate probability of acute heart failure exacerbation. Correlate with clinical context and patient history. >=300 pg/mL - Heart Failure likely. Correlate with clinical context and patient history. BNP testing is performed using different testing methodology at [facility] than at other [facility]. Direct result comparisons should only be made within the same method. us Triny Sol PA-C LAB BLOOD ORDERABLES Final Res ult [facility] [address] [place] [address] * Hemoglobin A1c (01/08/2025 7:21 PM EDT) Hemoglobin A1C 5.5 See comment % 025 11:45 PM EDT [facility] Estimated Average Glucose 111 Not Established mg/dL 01/08/2025 11:45 PM EDT [facility] Blood Venous blood specimen / Unknown Venipuncture / Unknown 01/08/2025 7:21 PM EDT 01/08/2025 7:26 PM EDT Narrative [facility] - 01/08/2025 11:45 PM EDT Diagnosis of Diabetes-Adults Non-Diabetic: < or = 5.6% Increased risk for developing diabetes: 5.7-6.4% Diagnostic of diabetes: > or = 6.5% us Triny Sol PA-C LAB BLOOD ORDERABLES Final Res ult [facility] [address] [address] from Last 3 Months Insurance MEDICAID Member Subscriber Plan / Payer (Ef fective 2017-Present) Name:Ofe Martinezsy Relation to Subscriber:Self Name:King Martinez Payer ID:Not on file Group ID:Not on file Type:Not on file Address: [address] DUAL ADVANTAGE ANTH DUAL ADVANTAGE Advance Directives For more information, please contact: [phone] (Available ) * Full Code (Latest Code Status on File) Date Activated Date Inactivated Comments 11/26/2023 6:41 AM Question Answer Comments Plan of Care: Code Status Discussion Not Compl eted Decision Maker: Provider Rationale: Patient condition does not warra nt discussion Care Teams Application Support Intern Relationship Specialty Start Date End Date Conchita Aden MD [facility] [place] [address] [place] [address] PCP - General Family Medicine 11/11/24 June Preston MD [address] [facility] Medical Office Bldg, [address] [place] [address] Gold Reclaimer Electrophysiology 09/13/24
--- OUTSIDE RECORDS SUMMARY | 2025-04-10 15:18 | XMS_ITS | Encounter Summary ---
Author Organization [facility] Address [address] [place] [address] Phone Care Team Providers Care Roll Threader Operator Name Role Phone Generic Provider, No Assigned Pcp Primary Car e Provider Unavailable Diane Min RN Unavailable Unavailable June Preston MD Unavailable Conchita Aden MD Primary Care Provider [phone] Diane Min RN Unavailable Unavailable Encounter Details Date Type Department Care Team (Late st Contact Info) Description 10/30/2024 Scanned Document [facility] [address] [place] [address] Scanning, Generic Provider Social History [...] any time in the past 12 [facility], were you homeless or living in [...] EDT Hospital Encounter [facility] [place] [address] [place] [address] [place] [address] Kervin Fair MD [address] [place] [address] Ventricular tachycardia (Multi) 04/14/2025 11:00 AM EDT - 04/14/2025 3:00 PM EDT Surgery [facility] [place] [address] [place] [address] Kervin Fair MD [address] [place], [place] [phone] [place] [86875 (CPT )] 07/14/2025 1:00 PM EDT Office Visit [facility] [address] [place] [address] Oscar Rodriguez MD [address] [place] [address] 09/26/2025 12:20 PM EST Appointment [facility] [address] [place] [address] 09/26/2025 1:00 PM EST Office Visit [facility] [address] [place] [address] June Preston MD [address] [facility] Medical Office Bldg, [address] [place], [place] [id number] documented as of this encounter Procedures Procedure [...] documented as of this encounter Care Teams Roll Threader Operator Relationship Specialty Start Date End Date Generic Provider, No Assigned Pcp, [place] [address] PCP - General Computer Teacher 08/08/24 11/10/24 Conchita Aden MD [address] [place] [address] [place] [address] PCP - General Family Medicine 11/11/24 Diane Min RN Care Log Sorter 09/05/24 12/06/24 June Preston MD [address] [facility] Medical Office Bldg, [address] [place] [address] Chiller Tender Electrophysiology 09/13/24 Diane Min, cork insulator helperLog Sorter 01/16/25 01/31/25 documented as of this encounter
--- OUTSIDE RECORDS SUMMARY | 2025-04-10 15:19 | XMS_ITS | Encounter Summary ---
Author Organization [facility] Address [address] [place] [address] Care Team Providers Care Food Service Substitute Name Role Phone Conchita Aden MD Primary Care Provider [phone] Encounter Details Date Type Department Care Team (Late Contact Info) Description 10/22/2024 Abstract [facility] OB [address] [place] [phone] David Ewing, DO [address] [facility] [address] [place], [facility] Social History Tobacco Use Types Packs/Day [...] on filedocumented in this encounter Care Teams Food Service Substitute Relationship Specialty Start Date End Date Conchita Aden MD PCP - General Family Medicine 11/07/24 documented as of this encounter
--- OUTSIDE RECORDS SUMMARY | 2025-04-10 15:19 | XMS_ITS | Encounter Summary ---
Author Organization [facility] Address [address] [place] [address] Care Team Providers Care Supervisor Respiratory Name Role Phone Conchita Aden MD Primary Care Provider [phone] Encounter Details Date Type Department Care Team (Late st Contact Info) Description 06/29/2023 External Result Encounter [facility] External Department Unsolicited Steve Combs, DO [address] [facility] [address] [place] [address] Social History Tobacco Use Types Packs/Day Years [...] Gerber Moreno M.D.06/29/2023 3:14 PM Dictation Location: [place] [address] Transcribed By: [facility] 06/29/23 1514 Dictated By: Gerber Moreno II, MD 06/29/23 1500 Signed By: <Electronically signed by Gerber Moreno II, MD in OV> 06/29/23 1514 Narrative 06/29/2023 3:36 PM EDT [facility] Main [place] [address] [place] [address] MRI Report Signed Patient: Latanya Martinez MR#: [id number] : 1960 Acct:[id number] Age/Sex: 62 / F ADM Date: 06/29/23 Loc: Room: Type: [facility] Attending Dr: Steve Combs DO Copies to: DO Darcie Draper MD, RES Ordering Provider: Steve Combs DO; Darcie Garcia MD, RES Date of Service: 06/29/23 MR/MR lumbar spine wo/w con: Other intervertebral disc degeneration, lumbar region;Spondy ([id number]) XR/XR pre/post mri xray: M51.36,M43.16 MR lumbar [...] Procedure Note Radiology, Radiologist, MD - 06/29/2023 [facility] Main [place] [address] [place] [address] MRI Report Signed Patient: Latanya Martinez AMR#: [id number] : 1960cct:[id number] Age/Sex: 62 / FADM Date: 06/29/23 Loc: Room:Type: [facility] Attending Dr: Steve Combs DO Copies to: DO Darcie Draper MD, RES Ordering Provider: Steve Combs DO; Darcie Garcia MD, RES Date of Service: 06/29/23 MR/MR lumbar spine wo/w con: Otherintervertebral disc degeneration, lumbar region;Spondy ([id number]) XR/XR pre/post mri xray: M51.36,M43.16 MR lumbar [...] and L4-5. The conus terminates at the L1-J0mkeigvngmreolw disc level. No epidural or paraspinous fluid [...] mild mass effect on the exiting left R6cbbfp roots. This are also present. No significant spinal canal stenosis. At L5-S1: There is a normal disc, central canal, and neural foramen. MR/MR lumbar spine wo/w con IMPRESSION: At L4-L5: There is a focal left foraminal disc extrusion contributing tomoderate to severe left neural foraminal narrowing with mild mass effect on the exiting left U2qfzul roots. This are also present. No significant [...] Gerber Moreno M.D.06/29/2023 3:14 PM Dictation Location: [place] [address] Transcribed By: [facility] 06/29/23 1514 Dictated By: Gerber Moreno II, MD 06/29/23 1500 Signed By: <Electronically signed by Gerber Moreno II, MD inOV> 06/29/23 1514 Steve Combs DO IMG MRI PROCEDURES Final Result documented in this encounter Visit Diagnoses Not on filedocumented in this encounter Care Teams Supervisor Respiratory Relationship Specialty Start Date End Date Conchita Aden MD PCP - General Family Medicine 11/07/24 documented as of this encounter
--- OUTSIDE RECORDS SUMMARY | 2025-04-10 15:19 | XMS_ITS | Encounter Summary ---
Author Organization [facility] Address [address] [place] [address] Care Team Providers Care Promotions Officer Name Role Phone Conchita Aden MD Primary Care Provider [phone] Encounter Details Date Type Department Care Team (Late st Contact Info) Description 03/27/2025 External Result Encounter [facility] External Department Unsolicited Lorrie Winn MD [address] [facility] [address] [place] [address] Social History Tobacco Use Types Packs/Day Years [...] Moreno M.D. 03/27/2025 11:14 AM Dictation Location: [facility]17 Tech: eL Millan Transcribed By: P[facility] 03/27/25 1114 Dictated By: Gerber Moreno II, MD 03/27/25 1111 Signed By: <Electronically signed by Gerber Moreno II, MD in OV> 03/27/25 1114 Narrative 03/27/2025 11:16 AM EDT [facility] [place] [address] Ultrasound Report Signed Patient: Latanya Martinez MR#: [id number] : 1960 Acct:[id number] Age/Sex: 64 / F ADM Date: 03/26/25 Loc: Room: [address] [place] [address] Type: ADM IN Attending Dr: Yonis Covington [...] Procedure Note Gerber Moreno MD - 03/27/2025 [facility] Main [place] [address] [address] Ultrasound Report Signed Patient: Latanya Martinez AMR#: [id number] : 1960cct:[id number] Age/Sex: 64 / FADM Date: 03/26/25 Loc: Room: [id number]: ADM IN Attending Dr: Yonis Covington DO [...] 03/27/2025 11:14 AM Dictation Location: [place] [address] Tech: Le Millan Transcribed By: [facility] 03/27/25 1114 Dictated By: Gerber Moreno II, MD 03/27/25 1111 Signed By: <Electronically signed by Gerber Moreno II, MD inOV> 03/27/25 1114 us Lorrie Winn MD IMG US PROCEDURES Final Result documented in this encounter Visit Diagnoses Not on filedocumented in this encounter Care Teams Promotions Officer Relationship Specialty Start Date End Date Conchita Aden MD PCP - General Family Medicine 11/07/24 documented as of this encounter
--- OUTSIDE RECORDS SUMMARY | 2025-04-10 15:19 | XMS_ITS | Encounter Summary ---
Author Organization [facility] Address [address] [place] [address] Care Team Providers Care Ground Products Director Name Role Phone Conchita Aden MD Primary Care Provider [phone] Encounter Details Date Type Department Care Team (Late st Contact Info) Description 03/26/2025 External Result Encounter [facility] External Department Unsolicited Lorrie Winn MD [address] [facility] [address] [place] [address] Social History Tobacco Use Types Packs/Day Years [...] 0.0 - 38.1 03/29/2025 3:[address] [facility] Comment: [facility] Electrochemiluminescence Immunoassay (ECLIA) Values obtained with different assay methods or kits cannot be used interchangeably. Results cannot be interpreted as absolute evidence of the presence or absence of malignant disease. Performed at: [address] [id number] Check Writer: Jose Damon PhD, Phone: [phone] Other Topography unknown / Unknown 03/26/2025 5:52 PM EDT 03/26/2025 6:10 PM EDT us Lorrie Winn MD LAB BLOOD ORDERABLES Final Res ult [facility] [address] [place] [address], documented in this encounter Visit Diagnoses Not on filedocumented in this encounter Care Teams Ground Products Director Relationship Specialty Start Date End Date Conchita Aden MD PCP - General Family Medicine 11/07/24 documented as of this encounter
--- OUTSIDE RECORDS SUMMARY | 2025-04-10 15:19 | XMS_ITS | Encounter Summary ---
Author Organization [facility] Address [address] [place] [address] Phone Care Team Providers Care Hub Cutter Apprentice Name Role Phone Tremaine West DO Primary Care Provider Ania Brothers CAR TESTER-CLINICAL NURSE LEADER Unavailable Unavailable Jnue Preston MD Unavailable Sol Keita CORE MEASURES ABSTRACTOR Unavailable [phone] June Preston MD Unavailable Oscar Rodriguez MD Unavailable [phone] Generic Provider, No Assigned Pcp Primary Car e Provider Unavailable Diane Min RN Unavailable Unavailable June Preston MD Unavailable Conchita Aden MD Primary Care Provider [phone] Diane Min RN Unavailable Unavailable Encounter Details Date Type Department Care Team (Late st Contact Info) Description 08/20/2020 Orders Only [facility] [address] [place] [address] Conversion, Onbase Social History Tobacco Use Types [...] AM EDT Hospital Encounter [facility] [place] [address] [place] [address] [place] [address] Kervin Fair MD [address] [place], [place] [address] Ventricular tachycardia (Multi) 04/14/2025 11:00 AM EDT - 04/14/2025 3:00 PM EDT Surgery [facility] [place] [address] [facility] [address] [place] [address] Kervin Fair MD [address] [place], [place] [address] [place] [[address] (CPT )] 07/14/2025 1:00 PM EDT Office Visit [facility] [address] [facility] [address] [place] [address] Oscar Rodriguez MD 3 [facility] 2, [address] [place] [address] 09/26/2025 12:20 PM EST Appointment [facility] [address] [place] [address] 09/26/2025 1:00 PM EST Office Visit [facility] [address] [facility] [address] [place] [address] June Preston MD [address] [facility] Medical Office [facility], [facility] [address] [place] [address] Scheduled Orders Name Type Priority Associated Diagnoses [...] documented as of this encounter Care Teams Hub Cutter Apprentice Relationship Specialty Start Date End Date Tremaine West DO [address] [place] [address], DO [address] [place] [address] PCP - General 01/22/22 11/05/23 Generic Provider, No Assigned Pcp, [place] [address] PCP - General Escrow Secretary 08/08/24 11/10/24 Conchita Aden MD [address] [place] [address] PCP - General Family Medicine 11/11/24 Ania Brothers, CAR TESTER-CLINICAL NURSE LEADER [address] [facility] Tremaine West, DO [address] [place] [address] Nurse Practitioner Cardiology 09/30/23 02/16/24 June Preston MD [address] [facility] Tremaine West DO [address] [place] [address] Implementation Director Cardiology 09/30/23 02/16/24 Sol Keita, CORE MEASURES ABSTRACTOR Chemical Recovery OperatorEmployment Coach 02/19/24 05/17/24 June Preston MD [address] [facility], [address] [place] [address] Consulting Physician Cardiology 02/19/24 02/29/24 Oscar Rodriguez MD [address] [place] [address] 2, [address] [place] [address] Consulting Physician Cardiology 02/19/24 02/29/24 Diane Min, hand reamerEmployment Coach 09/05/24 12/06/24 June Preston MD [address] [facility] [address], [address] [place] [address] Implementation Director Electrophysiology 09/13/24 Diane Min, hand reamerEmployment Coach 01/16/25 01/31/25 documented as of this encounter
--- OUTSIDE RECORDS SUMMARY | 2025-04-10 15:19 | XMS_ITS | Encounter Summary ---
Author Organization [facility] Address [address] [place] [address] Care Team Providers Care Deputy Director Of Finance Name Role Phone Conchita Aden MD Primary Care Provider [phone] Encounter Details Date Type Department Care Team (Late Contact Info) Description 10/22/2024 Abstract [facility] OB [address] [facility] [place] [address] David Ewing, DO [address] [facility] [address] [place], [facility]11 Social History Tobacco Use Types Packs/Day [...] on filedocumented in this encounter Care Teams Deputy Director Of Finance Relationship Specialty Start Date End Date Conchita Aden MD PCP - General Family Medicine 11/07/24 documented as of this encounter
--- OUTSIDE RECORDS SUMMARY | 2025-04-10 15:19 | XMS_ITS | Encounter Summary ---
Author Organization [facility] Address [address] [place] [address] Care Team Providers Care Compressed Gas Equipment Mechanic Name Role Phone Conchita Aden MD Primary Care Provider [phone] Encounter Details Date Type Department Care Team (Late Contact Info) Description 10/30/2024 Clinisync Result Encounter [facility] External Department Unsolicited Charity Gerard PA [address] [place] [address] [place] [address] Social History Tobacco Use Types [...] EST Narrative 10/31/2024 6:59 AM EST The [address] [address] Electrocardiograph Report Signed Patient: KING MORENO MR#: [id number] : 1960 Acct:[id number] Age/Sex: 63 / F ADM Date: 10/30/24 Loc: [place] 203-[address]: Parmjit Poon M.D. Ordering Physician: Charity Gerard Date of Service: 10/30/24 Procedure(s): ECG 12 lead Accession Number(s): [id number] cc: [facility] Test Date: 2024-10-30 Pat Name: KING MORENO Department: Room: - Gender: Female Drill Operator Automatic: : 1960 Requested By: CONCHITA ADEN Order Number: [id number] Reading MD: FELIZ JENNINGS Measurements Intervals [place] Rate: 94 P: 68 MT: 126 QRS: 56 QRSD: 84 T: 90 QT: 348 QTc: 399 Interpretive Statements 1100 Sinus rhythm 4068 Nonspecific Twave abnormality, can't exclude inferolateral ischemia 8102 Low QRS voltage in chest leads 9130 borderline ECG Compared to ECG 10/29/2024 16:19:34 No significant changes Electronically Signed On 10-31-2024 6:59:03 EST by FELIZ JENNINGS Dictated By: Feliz Jennings D.O. Signed By: 10/31/24 0659 DD/ 1500 TD/TT: Ambulette Driver: Procedure Note Radiology, Radiologist, MD - 10/31/2024 [place] [address] Electrocardiograph Report Signed Patient: KING MORENO AMR#: [id number] : 1Acct:[id number] Age/Sex: 63 / FADM Date: 10/30/24 Loc: [place] 203-[address]: Parmjit Poon M.D. Ordering Physician: Charity Gerard Date of Service: 10/30/24 Procedure(s): ECG 12 lead Accession Number(s): [id number] cc: [facility] Test Date: 2024-10-30 Pat Name: KING MORENO Department: Room: - Gender: Female Drill Operator Automatic: : 1960 Requested By: CONCHITA ADEN Order Number: [id number] Reading MD: FELIZ JENNINGS Measurements Intervals [place] Rate: 94 P: 68 MT: 126 QRS: 56 QRSD: 84 T: 90 QT: 348 QTc: 399 Interpretive Statements 1100 Sinus rhythm 4068 Nonspecific Twave abnormality, can't exclude inferolateral ischemia 8102 Low QRS voltage in chest leads 9130 borderline ECG Compared to ECG 10/29/2024 16:19:34 No significant changes Electronically Signed On 10-31-2024 6:59:03 EST by FELIZ JENNINGS Dictated By: Feliz Jennings D.O. Signed By:10/31/24 0659 DD/ 1500 TD/TT: Ambulette Driver: Charity [facility] Final Result documented in this encounter Visit Diagnoses Not on filedocumented in this encounter Care Teams Compressed Gas Equipment Mechanic Relationship Specialty Start Date End Date Conchita Aden MD PCP - General Family Medicine 11/07/24 documented as of this encounter
--- OUTSIDE RECORDS SUMMARY | 2025-04-10 15:19 | XMS_ITS | Encounter Summary ---
Author Organization [facility] Address [address] [place] [address] Phone Care Team Providers Care Environmental Health Aide Name Role Phone Tremaine West DO Primary Care Provider Ania Brothers HIGH SPEED PRINTER OPERATOR-HOT TAR ROOFER HELPER Unavailable Unavailable June Preston MD Unavailable Sol Keita PROGRAM ENGINEER Unavailable [phone] June Preston MD Unavailable Oscar Rodriguez MD Unavailable [phone] Generic Provider, No Assigned Pcp Primary Car e Provider Unavailable Diane Min RN Unavailable Unavailable June Preston MD Unavailable Conchita Aden MD Primary Care Provider [phone] Diane Min RN Unavailable Unavailable Encounter Details Date Type Department Care Team (Late st Contact Info) Description 07/04/2020 Orders Only [facility] LEGACY [address] [place] [address] Conversion, Onbase Social History Tobacco Use Types [...] 04/14/2025 9:30 AM EDT Hospital Encounter [facility] [place] [address] [place] [address] [place] [address] Kervin Fair MD [address] [place], [place] [phone] Ventricular tachycardia (Multi) 04/14/2025 11:00 AM EDT - 04/14/2025 3:00 PM EDT Surgery [facility] [place] [address] [facility] 3529 [place] [address] Kervin Fair MD [address] [place], [place] [phone] [place] [48212 (CPT )] 07/14/2025 1:00 PM EDT Office Visit [facility] 703 [facility] 250 [place] [address] Oscar Rodriguez MD 3 [facility] 2, Steve [address] [place] [address] 09/26/2025 12:20 PM EST Appointment [facility] [address] [place] [address] 09/26/2025 1:00 PM EST Office Visit [facility] 125 E [facility] [address] [place] [address] June Preston MD [address] [facility] Medical Office [facility], [facility] [address] [place] [address] Scheduled Orders Name Type Priority Associated Diagnoses [...] documented as of this encounter Care Teams Environmental Health Aide Relationship Specialty Start Date End Date Tremaine West DO [address] [place], DO Steve [address] [place] [address] PCP - General 01/22/22 11/05/23 Generic Provider, No Assigned Pcp, [place] [address] PCP - General Wound/Ostomy Nurse 08/08/24 11/10/24 Conchita Aden MD [address] [place] [address] PCP - General Family Medicine 11/11/24 Ania Brothers, HIGH SPEED PRINTER OPERATOR-HOT TAR ROOFER HELPER 1610 [facility] Tremaine West, DO Steve [address] [place] [address] Nurse Practitioner Cardiology 09/30/23 02/16/24 June Preston MD 1610 [facility] Tremaine West DO Steve [address] [place] [address] Floor Framer Cardiology 09/30/23 02/16/24 Sol Keita, PROGRAM ENGINEER Parachute TaperEnrichment Specialist 02/19/24 05/17/24 June Preston MD 125 [address] [facility], Steve [address] [place] [address] Consulting Physician Cardiology 02/19/24 02/29/24 Oscar Rodriguez MD [address] [place] [address] 2, Steve [address] [place] [address] Consulting Physician Cardiology 02/19/24 02/29/24 Diane Min, credit report checkerEnrichment Specialist 09/05/24 12/06/24 June Preston MD [address] [facility] [address], Steve [address] [place] [address] Floor Framer Electrophysiology 09/13/24 Diane Min, credit report checkerEnrichment Specialist 01/16/25 01/31/25 documented as of this encounter
--- OUTSIDE RECORDS SUMMARY | 2025-04-10 15:19 | XMS_ITS | Encounter Summary ---
Author Organization [facility] Address [address] [place] [address] Care Team Providers Care Pest Control Supervisor Name Role Phone Conchita Aden MD Primary Care Provider [phone] Encounter Details Date Type Department Care Team (Late Contact Info) Description 10/22/2024 Abstract [facility] OB [address] [facility] [place] [phone] David Ewing, DO [address] [facility] [address] Sven Obando, [facility]11 Social History Tobacco Use Types Packs/Day [...] on filedocumented in this encounter Care Teams Pest Control Supervisor Relationship Specialty Start Date End Date Conchita Aden MD PCP - General Family Medicine 11/07/24 documented as of this encounter
--- OUTSIDE RECORDS SUMMARY | 2025-04-10 15:19 | XMS_ITS | Clinical Summary ---
Author Organization [facility] Address [address] [place] [address] Care Team Providers Care Fiscal Economist Name Role Phone Conchita Aden MD Primary Care Provider [phone] Allergies No known active allergies Medications oxybutynin [...] Moreno M.D. 03/27/2025 11:14 AM Dictation Location: [place] [address] Tech: Le Millan Transcribed By: KATHLEEN 03/27/25 1114 Dictated By: Gerber Moreno II, MD 03/27/25 1111 Signed By: <Electronically signed by Gerber Moreno II, MD in OV> 03/27/25 1114 Narrative 03/27/2025 11:16 AM EDT [facility] [place] [address] [place] [address] Ultrasound Report Signed Patient: Latanya Martinez MR#: [id number] : 1960 Acct:[id number] Age/Sex: 64 / F ADM Date: 03/26/25 Loc: Room: [address] [place] [address] Type: ADM IN Attending Dr: Yonis Covington [...] Procedure Note Gerber Moreno MD - 03/27/2025 [facility] [place] [address] [place] [address] Ultrasound Report Signed Patient: Latanya Martinez AMR#: [id number] : 1Acct:[id number] Age/Sex: 64 / FADM Date: 03/26/25 Loc: Room: [id number]: ADM IN Attending Dr: Yonis Covington DO [...] Moreno M.D. 03/27/2025 11:14 AM Dictation Location: [place] [address] Tech: Le Millan Transcribed By: PWS 03/27/25 1114 Dictated By: Gerber Moreno II, MD 03/27/25 1111 Signed By: <Electronically signed by Gerber Moreno II, MD inOV> 03/27/25 1114 us Lorrie Winn MD IMG US PROCEDURES Final Result * CARCINOEMBRYONIC ANTIGEN (03/26/2025 5:52 PM EDT) CARCINOEMBRYONIC ANTIGEN 1.4 0.0 - 3.0 ng/mL 03/26/2025 6:49 PM EDT [facility] Comment: Serial tumor marker results determined by assays using different manufacturers or methods may not be comparable. [facility], [facility] Laboratory parking assistant and method: SAEED UNICEL DXI, 2 SITE IMMUNOENZYMATIC S ANDWICH ASSAY. Other Topography unknown / Unknown 03/26/2025 5:52 PM EDT 03/26/2025 6:10 PM EDT us Lorrie Winn MD LAB BLOOD ORDERABLES Final Res ult [facility] [address] [place] [address], [facility] [address] [place] [address] * [place] 125 (03/26/2025 5:52 PM EDT) CANCER ANTIGEN 125 10.3 0.0 - 38.1 03/29/2025 3:36 AM EDT [facility] Comment: [facility] Electrochemiluminescence Immunoassay (ECLIA) Values obtained with different assay methods or kits cannot be used interchangeably. Results cannot be interpreted as absolute evidence of the presence or absence of malignant disease. Performed at: [address] [id number] Plaster Mechanic: Jose Damon PhD, Phone: [phone] Other Topography unknown / Unknown 03/26/2025 5:52 PM EDT 03/26/2025 6:10 PM EDT us Lorrie Winn MD LAB BLOOD ORDERABLES Final Res ult [facility] [address] [place] [address], from Last 3 Months Insurance [employer] MED[employer]ARE ADVANTAGE Care Teams Fiscal Economist Relationship Specialty Start Date End Date Conchita Aden MD PCP - General Family Medicine 11/07/24
--- OUTSIDE RECORDS SUMMARY | 2025-04-10 15:20 | XMS_ITS | Encounter Summary ---
Author Organization [facility] Address [address] [place] [address] Phone Care Team Providers Care Crucible Packer Name Role Phone Tremaine West DO Primary Care Provider Ania Brothers APPLIQUE SEWER-CERTIFIED TUMOR REGISTRAR Unavailable Unavailable June Preston MD Unavailable Sol Keita COMMUNITY MARKETING COORDINATOR Unavailable [phone] June Preston MD Unavailable Oscar Rodriguez MD Unavailable [phone] Generic Provider, No Assigned Pcp Primary Car e Provider Unavailable Diane Min RN Unavailable Unavailable June Preston MD Unavailable Conchita Aden MD Primary Care Provider [phone] Diane Min RN Unavailable Unavailable Encounter Details Date Type Department Care Team (Late st Contact Info) Description 07/22/2023 Scanned Document [facility] LE[facility]Y [address] [place] [address] Conversion, Onbase Social History Tobacco Use Types [...] AM EDT Hospital Encounter [facility] [place] [address] [place] [address] [place] [address] Kervin Fair MD [address] [place] [address] Ventricular tachycardia (Multi) 04/14/2025 11:00 AM EDT - 04/14/2025 3:00 PM EDT Surgery [facility] [place] [address] [place] [address] [place] [address] Kervin aFir MD [address] [place], [place] [phone] [place] [[address] (CPT )] 07/14/2025 1:00 PM EDT Office Visit [facility] [address] [employer] [address] [place] [address] Oscar Rodriguez MD 703 [facility] 2, Steve [address] [place] [address] 09/26/2025 12:20 PM EST Appointment [facility] [address] [place] [address] 09/26/2025 1:00 PM EST Office Visit [facility] 125 E [facility] [address] [place] [address] June Preston MD 125 E [facility] Office [facility], Steve [address] [place] [address] documented as of this encounter Procedures Procedure [...] documented as of this encounter Care Teams Crucible Packer Relationship Specialty Start Date End Date Tremaine West DO 1610 [facility] Tremaine West DO [address] [address] PCP - General 01/22/22 11/05/23 Generic Provider, No Assigned Pcp, [place] [address] PCP - General Industrial Registered Nurse 08/08/24 11/10/24 Conchita Aden MD [address] [place] [address] PCP - General Family Medicine 11/11/24 Ania Brothers, APPLIQUE SEWER-CERTIFIED TUMOR REGISTRAR [address] [place] [address]or [address] [address] Nurse Practitioner Cardiology 09/30/23 02/16/24 June Preston MD [address] [address] Tent Finisher Cardiology 09/30/23 02/16/24 Sol Keita, COMMUNITY MARKETING COORDINATOR Extractor Operator Solvent ProcessPyrotechnic Mixer 02/19/24 05/17/24 June Preston MD 125 E [facility], Steve [address] [place] [address] Consulting Physician Cardiology 02/19/24 02/29/24 Oscar Rodriguez MD 703 [facility] 2, Steve [address] [place] [address] Consulting Physician Cardiology 02/19/24 02/29/24 Diane Min, brokerPyrotechnic Mixer 09/05/24 12/06/24 June Preston MD 125 E [facility], Steve [address] [place] [address] Tent Finisher Electrophysiology 09/13/24 Diane Min, brokerPyrotechnic Mixer 01/16/25 01/31/25 documented as of this encounter
--- OUTSIDE RECORDS SUMMARY | 2025-04-10 15:20 | XMS_ITS | Encounter Summary ---
Author Organization [facility] Address [address] [place] [address] Phone Care Team Providers Care Poolroom Table Attendant Name Role Phone Tremaine West DO Primary Care Provider Ania Brothers BATTERY CONTAINER INSPECTOR-WOUND/OSTOMY NURSE Unavailable Unavailable June Preston MD Unavailable Sol Keita RING PACKER Unavailable [phone] June Preston MD Unavailable Oscar Rodriguez MD Unavailable [phone] Generic Provider, No Assigned Pcp Primary Car e Provider Unavailable Diane Min RN Unavailable Unavailable June Preston MD Unavailable Conchita Aden MD Primary Care Provider [phone] Diane Min RN Unavailable Unavailable Encounter Details Date Type Department Care Team (Late st Contact Info) Description 06/30/2020 Orders Only [facility] LEGACY [address] [place] [address] Conversion, Onbase Social History Tobacco Use Types [...] Description 04/14/2025 9:30 AM EDT Hospital Encounter [facility] [place] [address] [place] [address] [place] [address] Kervin Fair MD [address] [place], [place] [address] Ventricular tachycardia (Multi) 04/14/2025 11:00 AM EDT - 04/14/2025 3:00 PM EDT Surgery [facility] [place] [address] [facility] 35[address] [place] [address] Kervin Fair MD [address] [place], [place] [address] [place] [[address] (CPT )] 07/14/2025 1:00 PM EDT Office Visit [facility] 703 [facility] 250 [place] [address] Oscar Rodriguez MD 3 [facility] 2, Steve [address] [place] [address] 09/26/2025 12:20 PM EST Appointment [facility] [address] [place] [address] 09/26/2025 1:00 PM EST Office Visit [facility] 125 E [facility] [address] [place] [address] June Preston MD 125 E [facility] Medical Office [facility], [facility] 305 [place] [address] Scheduled Orders Name Type Priority Associated Diagnoses [...] documented as of this encounter Care Teams Poolroom Table Attendant Relationship Specialty Start Date End Date Tremaine West DO [address] [place], DO Steve [address] [place] [address] PCP - General 01/22/22 11/05/23 Generic Provider, No Assigned Pcp[place] [address] PCP - General Coating Line Worker 08/08/24 11/10/24 Conchita Aden MD [address] [place] [address] PCP - General Family Medicine 11/11/24 Ania Brothers, BATTERY CONTAINER INSPECTOR-WOUND/OSTOMY NURSE 1610 [facility] Tremaine West, DO Steve [address] [place] [address] Nurse Practitioner Cardiology 09/30/23 02/16/24 June Preston MD 1610 [facility] Tremaine West DO Steve [address] [place] [address] Team Guide Cardiology 09/30/23 02/16/24 Sol Keita, RING PACKER Sponge ClipperConsultant Dietitian 02/19/24 05/17/24 June Preston MD 125 E [facility], [address] [place] [address] Consulting Physician Cardiology 02/19/24 02/29/24 Oscar Rodriguez MD [address] [place] [address] 2, [address] [place] [address] Consulting Physician Cardiology 02/19/24 02/29/24 Diane Min, neonatal nurseConsultant Dietitian 09/05/24 12/06/24 June Preston MD [address] [facility] [address], [address] [place] [address] Team Guide Electrophysiology 09/13/24 Diane Min, neonatal nurseConsultant Dietitian 01/16/25 01/31/25 documented as of this encounter
--- OUTSIDE RECORDS SUMMARY | 2025-04-10 15:20 | XMS_ITS | Encounter Summary ---
Author Organization [facility] Address [address] [place] [address] Phone Care Team Providers Care Dynamics Ax Developer Name Role Phone Tremaine West DO Primary Care Provider Ania Brothers MEDICAL POLICY SPECIALIST-BRASS CLEANER Unavailable Unavailable June Preston MD Unavailable Sol Keita CLAY SHOP SUPERVISOR Unavailable [phone] June Preston MD Unavailable Oscar Rodriguez MD Unavailable [phone] Generic Provider, No Assigned Pcp Primary Car e Provider Unavailable Diane Min RN Unavailable Unavailable June Preston MD Unavailable Conchita Aden MD Primary Care Provider [phone] Diane Min RN Unavailable Unavailable Encounter Details Date Type Department Care Team (Late st Contact Info) Description 03/25/2023 Orders Only [facility] [address] [place] [address] Conversion, Onbase Social History Tobacco Use Types [...] Encounter [facility] [place] [address] [facility] 3529 [place] [address] Kervin Fair MD [address] [place] [address] Ventricular tachycardia (Multi) 04/14/2025 11:00 AM EDT - 04/14/2025 3:00 PM EDT Surgery [facility] [place] [address] [facility] 35[address] [place] [address] Kervin Fair MD [address] [place], [place] [phone] [place] [03301 (CPT )] 07/14/2025 1:00 PM EDT Office Visit [facility] 703 [facility] 250 [place] [address] Oscar Rodriguez MD 703 [facility] 2, [address] [place] [address] 09/26/2025 12:20 PM EST Appointment [facility] [address] [place] [address] 09/26/2025 1:00 PM EST Office Visit [facility] [address] [facility] 320 [place] [address] June Preston MD 125 E [facility] Office [facility], [facility] 305 [place] [address] Scheduled Orders Name Type Priority Associated Diagnoses [...] documented as of this encounter Care Teams Dynamics Ax Developer Relationship Specialty Start Date End Date Tremaine West DO 1610 [facility] Tremaine West [facility] 103 [place] [address] PCP - General 01/22/22 11/05/23 Generic Provider, No Assigned Pcp, [place] [address] PCP - General Technical Lead 08/08/24 11/10/24 Conchita Aden MD [address] [place] [address] PCP - General Family Medicine 11/11/24 Ania Brothers APRN-BRASS CLEANER [address] [place] [address] [place] [facility] 103 [place] [address] Nurse Practitioner Cardiology 09/30/23 02/16/24 June Preston MD 1610 [facility] Tremaine West [facility] 103 [place] [address] Eligibility Specialist Cardiology 09/30/23 02/16/24 Sol Keita, CLAY SHOP SUPERVISOR Podiatry TeacherAlpine Guide 02/19/24 05/17/24 June Perston MD 125 E [facility] Medical [facility] [address], Steve [address] [place] [address] Consulting Physician Cardiology 02/19/24 02/29/24 Oscar Rodriguez MD 703 [facility] 2, [address] [place] [address] Consulting Physician Cardiology 02/19/24 02/29/24 Diane Min, torch straightener and heaterAlpine Guide 09/05/24 12/06/24 June Preston MD [facility], Steve [address] [place] [address] Eligibility Specialist Electrophysiology 09/13/24 Diane Min, torch straightener and heaterAlpine Guide 01/16/25 01/31/25 documented as of this encounter
--- OUTSIDE RECORDS SUMMARY | 2025-04-10 15:20 | XMS_ITS | Encounter Summary ---
Author Organization [facility] Address [address] [place] [address] Phone Care Team Providers Care Coil Tester Name Role Phone Tremaine West DO Primary Care Provider Ania Brothers BUILD TECHNICIAN-TECHNICAL DESIGNER Unavailable Unavailable June Preston MD Unavailable Sol Keita HAND BINDER CUTTER Unavailable [phone] June Preston MD Unavailable Oscar Rodriguez MD Unavailable [phone] Generic Provider, No Assigned Pcp Primary Car e Provider Unavailable Diane Min RN Unavailable Unavailable June Preston MD Unavailable Conchita Aden MD Primary Care Provider Diane Min RN Unavailable Unavailable Encounter Details Date Type Department Care Team (Late st Contact Info) Description 11/20/[address] [facility] LEGACY [address] [place] [address] Conversion, Onbase Social History Tobacco Use Types [...] Description 04/14/2025 9:30 AM EDT Hospital Encounter [facility] [place] [address] [facility] 35[address] [place] [address] Kervin Fair MD [address] [place], [place] [address] Ventricular tachycardia (Multi) 04/14/2025 11:00 AM EDT - 04/14/2025 3:00 PM EDT Surgery [facility] [place] [address] [facility] 35[address] [place] [address] Kervin Fair MD [address] [place], [place] [address] [place] [[address] (CPT )] 07/14/2025 1:00 PM EDT Office Visit [facility] 703 [facility] 250 [place] [address] Oscar Rodriguez MD 703 [facility] 2, Steve [address] [place] [address] 09/26/2025 12:20 PM EST Appointment [facility] [address] [place] [address] 09/26/2025 1:00 PM EST Office Visit [facility] 125 E [facility] 320 [place] [address] June Preston MD 125 E [facility] Office [facility], [facility] 305 [place] [address] Scheduled Orders Name Type Priority Associated Diagnoses [...] documented as of this encounter Care Teams Coil Tester Relationship Specialty Start Date End Date Tremaine West DO [address] [place] Amor Childerscristino, DO Steve [address] [place] [address] PCP - General 01/22/22 11/05/23 Generic Provider, No Assigned Pcp, [place] [address] PCP - General Wine Cellar Stock Clerk 08/08/24 11/10/24 Conchita Aden MD [address] [place] [address] PCP - General Family Medicine 11/11/24 Ania Brothers, BUILD TECHNICIAN-TECHNICAL DESIGNER 1610 [facility] Tremaine West, DO Steve [address] [place] [address] Nurse Practitioner Cardiology 09/30/23 02/16/24 June Preston MD 1610 [facility] Tremaine Childersyukoezekiel DO Steve [address] [place] [address] Traffic Representative Cardiology 09/30/23 02/16/24 Sol Keita, HAND BINDER CUTTER Vocational Childcare TeacherNon Destructive Testing Supervisor 02/19/24 05/17/24 June Preston MD 125 E [facility], [address] [place] [address] Consulting Physician Cardiology 02/19/24 02/29/24 Oscar Rodriguez MD [address] [place] [address] 2, Steve [address] [place] [address] Consulting Physician Cardiology 02/19/24 02/29/24 Diane Min, cork tile floor layerNon Destructive Testing Supervisor 09/05/24 12/06/24 June Preston MD 125 E [facility], [facility] 305 [place] [address] Traffic Representative Electrophysiology 09/13/24 Diane Min, cork tile floor layerNon Destructive Testing Supervisor 01/16/25 01/31/25 documented as of this encounter
--- OUTSIDE RECORDS SUMMARY | 2025-04-10 15:20 | XMS_ITS | Clinical Summary ---
Author Organization Payment plugin tem Address [id number] [address] [place] [address] Care Team Providers Care Real Estate Specialist Name Role Phone Unavailable Primary Care [...] 2 diabetes mellitus 1 11/30/2022 Atherosclerosis of [place] co ronary artery of [place] heart without angina pectoris 07/29/2023 Chronic obstructive pulmonary disease 07/29/2023 Chronic systolic CHF (congestive heart failure) 07/29/2023 Current every day smoker 07/29/2023 Essential hypertension 07/29/2023 Intermittent claudication 07/29/2023 Pulmonary embolism 07/29/2023 Type 2 diabetes mellitus 07/29/2023 Gastroesophageal reflux disease without esophagi tis 11/25/2021 Vascular insufficiency of intestine 04/09/2015 Encounters Date Type Department Care Team Description 03/01/2025 Telephone [facility] Gynecology Oncology, A Department of [facility] [address] [place] [address] Charlotte Garcia RN 02/22/2025 Telephone [facility] Gynecology Oncology, A Department of [facility] [address] [place] [address] Charlotte Garcia, PAULA from Last 3 Months [...] Negative Negative^N egative 12/01/2024 2:25 PM EST [facility] Hpv 18 Negative Negative^N egative 12/01/2024 2:25 PM EST [facility] Other high risk hpv Negative Negative^N egative 12/01/2024 2:25 PM EST [facility] Comment: HPV types 31,33,35,39,45,52,56,58,59,66 and 68 DNA were undetectable. THINP 11/29/2024 3:43 AM EST 12/01/2024 3:44 AM EST us Nanci Mcallister MD LAB BLOOD ORDERABLES Final Resul t [place] [facility] [address] [facility] [place] [address] from Last 3 Months or Most Recently Relevant to Health Maintenance Insurance [place]ICAID [place] [employer] MED[employer]
--- OUTSIDE RECORDS SUMMARY | 2025-04-10 15:20 | XMS_ITS | Encounter Summary ---
Author Organization [facility] Address [address] [place] [address] Phone Care Team Providers Care Community Engagement Coordinator Name Role Phone Bossman Sol Oscar HOPPER Unavailable June Preston MD Unavailable Oscar Rodriguez MD Unavailable [phone] Generic Provider, No Assigned Pcp Primary Car e Provider Unavailable Diane Min RN Unavailable Unavailable June Preston MD Unavailable Conchita Aden MD Primary Care Provider [phone] Diane Min RN Unavailable Unavailable Encounter Details Date Type Department Care Team (Late st Contact Info) Description 02/19/2024 Scanned Document [facility] [address] [place] [phone] Scanning, Generic Provider Social History Tobacco Use [...] a skilled nursing (including now)? No 02/16/2024 Comments Unknown Sex [...] 04/14/2025 9:30 AM EDT Hospital Encounter [facility] [address] [facility] [place] [address] Kervin Fair MD [address] [place] [address] Ventricular tachycardia (Multi) 04/14/2025 11:00 AM EDT - 04/14/2025 3:00 PM EDT Surgery [facility] [address] [place] [address] Kervin Fair MD [address] [place] [address] [place] [57[address] (CPT )] 07/14/2025 1:00 PM EDT Office Visit [facility] 703 [facility] [address] [place] [address] Oscar Rodriguez MD 703 [facility], Steve [address] [place] [address] 09/26/2025 12:20 PM EST Appointment [facility] [address] [place] [address] 09/26/2025 1:00 PM EST Office Visit [facility] 125 [address] [facility] [address] [place] [address] June Preston MD 125 E [facility] Medical Office Bl, Steve [address] [place] [address] documented as of this encounter Visit Diagnoses [...] documented as of this encounter Care Teams Community Engagement Coordinator Relationship Specialty Start Date End Date Generic Provider, No [place] [address] PCP - General Res Habilitation Assistant 08/08/24 11/10/24 Conchita Aden MD [facility]5 [facility] [place] [address] PCP - General Family Medicine 11/11/24 Sol Keita, INSURANCE VERIFY REP Theater Company ProducerCorrectional Therapy Director 02/19/24 05/17/24 June Preston MD 125 [address] [facility], [address] [place] [address] Consulting Physician Cardiology 02/19/24 02/29/24 Oscar Rodriguez MD [address] [place] [address] 2, [address] [place] [address] Consulting Physician Cardiology 02/19/24 02/29/24 Diane Min RN Care Correctional Therapy Director 09/05/24 12/06/24 June Preston MD 125 [address] [facility], [address] [place] [address] Trailhead Maintenance Worker Electrophysiology 09/13/24 Diane Min, recycling operations managerCorrectional Therapy Director 01/16/25 01/31/25 documented as of this encounter
--- OUTSIDE RECORDS SUMMARY | 2025-04-10 15:20 | XMS_ITS | Encounter Summary ---
Author Organization [facility] Address [address] [place] [address] Phone Care Team Providers Care Family And Divorce Legal Assistant Name Role Phone Tremaine West DO Primary Care Provider Ania Brothers TEXTILES PRINTER-TUBULAR STOCK GLASS BULB MACHINE FORMER Unavailable Unavailable June Preston MD Unavailable Sol Keita WOOL PRESSER Unavailable [phone] June Preston MD Unavailable Oscar Rodriguez MD Unavailable [phone] Generic Provider, No Assigned Pcp Primary Car e Provider Unavailable Diane Min RN Unavailable Unavailable June Preston MD Unavailable Conchita Aden MD Primary Care Provider [phone] Diane Min RN Unavailable Unavailable Encounter Details Date Type Department Care Team (Late st Contact Info) Description 01/31/[address] [facility] LEGACY [address] [place] [address] Conversion, Onbase Social History Tobacco Use Types [...] Description 04/14/2025 9:30 AM EDT Hospital Encounter [facility] [address] [facility] 3529 [place] [address] Kervin Fair MD [address] [place], [place] [phone] Ventricular tachycardia (Multi) 04/14/2025 11:00 AM EDT - 04/14/2025 3:00 PM EDT Surgery [facility] [address] [facility] 3529 [place] [address] Kervin Fair MD [address] [place], [place] [id number] [place] [[id number] (CPT )] 07/14/2025 1:00 PM EDT Office Visit [facility] 703 [facility] 250 [place] [address] Oscar Rodriguez MD 703 [facility] 2, Steve [address] [place] [address] 09/26/2025 12:20 PM EST Appointment [facility] [address] [place] [address] 09/26/2025 1:00 PM EST Office Visit [facility] [address] [facility] 320 [place] [address] June Preston MD 125 E [facility] Office [facility], [facility] 305 [place] [address] Scheduled Orders Name Type Priority Associated Diagnoses [...] documented as of this encounter Care Teams Family And Divorce Legal Assistant Relationship Specialty Start Date End Date Tremaine West DO [address] Child[address], DO [address] [place] [address] PCP - General 01/22/22 11/05/23 Generic Provider, No Assigned Pcp, [place] [address] PCP - General Repairer Controller Tester 08/08/24 11/10/24 Conchita Aden MD [address] [place] [address] PCP - General Family Medicine 11/11/24 Ania Brothers, TEXTILES PRINTER-TUBULAR STOCK GLASS BULB MACHINE FORMER 1610 [facility] Tremaine West, DO [address] [place] [address] Nurse Practitioner Cardiology 09/30/23 02/16/24 June Preston MD 1610 [facility] Tremaine Childersyukoezekiel DO [address] [place] [address] Graphics Artist Cardiology 09/30/23 02/16/24 Sol Keita, WOOL PRESSER Blanchard Grinder OperatorDiesel Instructor 02/19/24 05/17/24 June Preston MD 125 E [facility], [address] [place] [address] Consulting Physician Cardiology 02/19/24 02/29/24 Oscar Rodriguez MD [address] [place] [address] 2, [address] [place] [address] Consulting Physician Cardiology 02/19/24 02/29/24 Diane Min, fire engine pump operatorDiesel Instructor 09/05/24 12/06/24 June Preston MD 125 [address] [facility], [facility] [address] [place] [address] Graphics Artist Electrophysiology 09/13/24 Diane Min, fire engine pump operatorDiesel Instructor 01/16/25 01/31/25 documented as of this encounter
--- OUTSIDE RECORDS SUMMARY | 2025-04-10 15:20 | XMS_ITS | Encounter Summary ---
Author Organization [facility] Address [address] [place] [address] Phone Care Team Providers Care Back Tender Paper Machine Name Role Phone June Preston MD Unavailable Conchita Aden MD Primary Care Provider [phone] Encounter Details Date Type Department Care Team [...] doctor or pharmacy? Never 01/08/2025 [facility] Utilities Answer Date Recorded In the past 12 months has [facility] [employer], gas, oil, or water [employer] threatened to shut off services in your [...] week 01/08/2025 How often do you attend zoroastrian or samaritan serv ices? Patient declined 01/08/2025 Do you belong to any clubs o r organizations such as zoroastrian groups, unions, fraternal or athletic groups, or [...] living in a chcf (including now)? No 01/08/2025 Comments No Sex [...] 04/14/2025 9:30 AM EDT Hospital Encounter [facility] [address] [place] [address] Kervin Fair MD [address] [place] [address] Ventricular tachycardia (Multi) 04/14/2025 11:00 AM EDT - 04/14/2025 3:00 PM EDT Surgery [facility] [address] [place] [address] Kervin Fair MD [address] [place] [address] [place] [[id number] (CPT )] 07/14/2025 1:00 PM EDT Office Visit [facility] 703 [facility] [address] [place] [address] Oscar Rodriguez MD 703 [facility] 2, [address] [place] [address] 09/26/2025 12:20 PM EST Appointment [facility] [address] [place] [facility] [place] [address] 09/26/2025 1:00 PM EST Office Visit [facility] 125 E [facility] 320 [place] [address] June Preston MD 125 [address] [facility] Medical Office Bldg, [address] [place] [address] documented as of this encounter Visit Diagnoses Not on filedocumented in this encounter Additional Health Concerns Assessment Noted Time PHQ-9 Depression Total Score: 9 01/23/20 22 11:33 AM EDT A fall risk assessment has been complete d for the patient 03/01/2024 12:30 PM EDT documented as of this encounter Care Teams Back Tender Paper Machine Relationship Specialty Start Date End Date Conchita Aden MD [address] [place] [address] [place] [address] PCP - General Family Medicine 11/11/24 June Preston MD [address] [facility] [address], [address] [place] [phone] Litigation Associate Electrophysiology 09/13/24 documented as of this encounter
--- OUTSIDE RECORDS SUMMARY | 2025-04-10 15:20 | XMS_ITS | Encounter Summary ---
Author Organization [facility] Address [address] [place] [address] Phone Care Team Providers Care Certified Driver Examiner Name Role Phone Tremaine West DO Primary Care Provider Ania Brothers CHEMICAL LAB SUPERVISOR-DEPALLETIZER OPERATOR Unavailable Unavailable June Preston MD Unavailable Sol Keita TAFE REGISTRAR Unavailable [phone] June Preston MD Unavailable Oscar Rodriguez MD Unavailable [phone] Generic Provider, No Assigned Pcp Primary Car e Provider Unavailable Diane Min RN Unavailable Unavailable June Preston MD Unavailable Conchita Aden MD Primary Care Provider [phone] Diane Min RN Unavailable Unavailable Encounter Details Date Type Department Care Team (Late st Contact Info) Description 09/08/2019 Orders Only [facility] LEGACY [address] [place] [address] Conversion, Onbase Social History Tobacco Use Types [...] Description 04/14/2025 9:30 AM EDT Hospital Encounter [facility] [address] [place] [address] Kervin Fair MD [address] [place], [place] [phone] Ventricular tachycardia (Multi) 04/14/2025 11:00 AM EDT - 04/14/2025 3:00 PM EDT Surgery [facility] [address] [facility] 35[address] [place] [address] Kervin Fair MD [address] [place], [place] [phone] [place] [[id number] (CPT )] 07/14/2025 1:00 PM EDT Office Visit [facility] 703 [facility] 250 [place] [address] Oscar Rodriguez MD 3 [facility] 2, [address] [place] [address] 09/26/2025 12:20 PM EST Appointment [facility] [address] [place] [address] 09/26/2025 1:00 PM EST Office Visit [facility] 125 [address] [facility] 320 [place] [address] June Preston MD 125 E [facility] Medical Office [facility], [facility] 305 [place] [address] Scheduled Orders Name Type Priority Associated Diagnoses [...] documented as of this encounter Care Teams Certified Driver Examiner Relationship Specialty Start Date End Date Tremaine West DO [address], DO [address] [place] [address] PCP - General 01/22/22 11/05/23 Generic Provider, No Assigned Pcp[place] [address] PCP - General Ui Developer 08/08/24 11/10/24 Conchita Aden MD [address] [place] [address] PCP - General Family Medicine 11/11/24 Ania Brothers, CHEMICAL LAB SUPERVISOR-DEPALLETIZER OPERATOR 1610 [facility] Tremaine West, DO [address] [place] [address] Nurse Practitioner Cardiology 09/30/23 02/16/24 June Preston MD 1610 [facility] Tremaine West DO [address] [place] [address] Production Helper Cardiology 09/30/23 02/16/24 Sol Keita, TAFE REGISTRAR Palliative Care SpecialistStakeholder Manager 02/19/24 05/17/24 June Preston MD 125 E [facility], [address] [place] [address] Consulting Physician Cardiology 02/19/24 02/29/24 Oscar Rodriguez MD [address] [place] [address] 2, [address] [place] [address] Consulting Physician Cardiology 02/19/24 02/29/24 Diane Min, occupational medicine physicianStakeholder Manager 09/05/24 12/06/24 June Preston MD [address] [facility] Bl, [address] [place] [address] Production Helper Electrophysiology 09/13/24 Diane Min, occupational medicine physicianStakeholder Manager 01/16/25 01/31/25 documented as of this encounter
--- OUTSIDE RECORDS SUMMARY | 2025-04-10 15:20 | XMS_ITS | Encounter Summary ---
Author Organization [facility] Address [address] [place] [address] Phone Care Team Providers Care Protective Services Officer Name Role Phone Tremaine West DO Primary Care Provider Ania Brothers RADIOLOGY PRACTITIONER ASSISTANT-GLOVE MACHINE OPERATOR Unavailable Unavailable June Preston MD Unavailable Sol Keita PICTURE BOOKER Unavailable [phone] June Preston MD Unavailable Oscar Rodriguez MD Unavailable [phone] Generic Provider, No Assigned Pcp Primary Car e Provider Unavailable Diane Min RN Unavailable Unavailable June Preston MD Unavailable Conchita Aden MD Primary Care Provider [phone] Diane Min RN Unavailable Unavailable Encounter Details Date Type Department Care Team (Late st Contact Info) Description 05/27/2022 Orders Only [facility] LEGACY [address] [place] [address] Conversion, Onbase Social History Tobacco Use Types [...] [facility] [address] [facility] 3529 [place] [address] Kervin Fair MD [address] [place] [address] Ventricular tachycardia (Multi) 04/14/2025 11:00 AM EDT - 04/14/2025 3:00 PM EDT Surgery [facility] [place] [address] [facility] 35[address] [place] [address] Kervin Fair MD [address] [place], [place] [address] [place] [[id number] (CPT )] 07/14/2025 1:00 PM EDT Office [facility] 703 [facility] 250 [place] [address] Oscar Rodriguez MD 703 [facility] 2, [address] [place] [address] 09/26/2025 12:20 PM EST Appointment [facility] [address] [place] [address] 09/26/2025 1:00 PM EST Office Visit [facility] 125 E [facility] [address] [place] [address] June Preston MD 125 E [facility] Office [facility], [facility] [address] [place] [address] Scheduled Orders Name Type Priority Associated Diagnoses [...] documented as of this encounter Care Teams Protective Services Officer Relationship Specialty Start Date End Date Tremaine Wets DO 1610 [facility] Tremaine West [facility] 103 [place] [address] PCP - General 01/22/22 11/05/23 Generic Provider, No Assigned Pcp, [place] [address] PCP - General Huller Operator 08/08/24 11/10/24 Conchita Aden MD [address] [place] [address] PCP - General Family Medicine 11/11/24 Ania Brothers APRN-GLOVE MACHINE OPERATOR [address] [facility] 103 [place] [address] Nurse Practitioner Cardiology 09/30/23 02/16/24 June Preston MD 1610 [facility] Tremaine West [facility] 103 [place] [address] Restorative Aide Cardiology 09/30/23 02/16/24 Sol Keita, PICTURE BOOKER Line LeaderInclusion Teacher 02/19/24 05/17/24 June Preston MD 125 [address] [facility] Medical [facility] Bl, [address] [place] [address] Consulting Physician Cardiology 02/19/24 02/29/24 Oscar Rodriguez MD 703 [facility] 2, [address] [place] [address] Consulting Physician Cardiology 02/19/24 02/29/24 Diane Min, sheriffInclusion Teacher 09/05/24 12/06/24 June Perston MD [facility] [address] [place] [address] Restorative Aide Electrophysiology 09/13/24 Diane Min, sheriffInclusion Teacher 01/16/25 01/31/25 documented as of this encounter
--- OUTSIDE RECORDS SUMMARY | 2025-04-10 15:20 | XMS_ITS | Encounter Summary ---
Author Organization [facility] Address [address] [place] [address] Phone Care Team Providers Care Java Front End Web Developer Name Role Phone Tremaine West DO Primary Care Provider Ania Brothers PLUG PASTER-FANCY PACKER Unavailable Unavailable June Preston MD Unavailable Sol Keita DIRECTOR SELECTION AND ADMINISTRATION Unavailable [phone] June Preston MD Unavailable Oscar Rodriguez MD Unavailable [phone] Generic Provider, No Assigned Pcp Primary Car e Provider Unavailable Diane Min RN Unavailable Unavailable June Preston MD Unavailable Conchita Aden MD Primary Care Provider [phone] Diane Min RN Unavailable Unavailable Encounter Details Date Type Department Care Team (Late st Contact Info) Description 08/15/2019 Orders Only [facility] LEGACY [address] [place] [address] Conversion, Onbase Social History Tobacco Use Types [...] Encounter [facility] [address] [place] [address] Kervin Fair MD [address] [place], [place] [address] Ventricular tachycardia (Multi) 04/14/2025 11:00 AM EDT - 04/14/2025 3:00 PM EDT Surgery [facility] [address] [facility] 35[address] [place] [address] Kervin Fair MD [address] [place], [place] [address] [place] [[id number] (CPT )] 07/14/2025 1:00 PM EDT Office Visit [facility] 703 [facility] 250 [place] [address] Oscar Rodriguez MD 3 [facility] 2, [address] [place] [address] 09/26/2025 12:20 PM EST Appointment [facility] [address] [place] [address] 09/26/2025 1:00 PM EST Office Visit [facility] 125 E [facility] 320 [place] [address] June Preston MD 125 E [facility] Medical Office [facility], [facility] 305 [place] [address] Scheduled Orders Name Type Priority Associated Diagnoses [...] documented as of this encounter Care Teams Java Front End Web Developer Relationship Specialty Start Date End Date Tremaine West DO [address] [place] [address] [place], DO [address] [place] [address] PCP - General 01/22/22 11/05/23 Generic Provider, No Assigned Pcp, [place] [address] PCP - General Data Base Administrator 08/08/24 11/10/24 Conchita Aden MD [address] [place] [address] [place] [address] PCP - General Family Medicine 11/11/24 Ania Brothers, PLUG PASTER-FANCY PACKER [address] [place] [address] [place], [facility] 103 [place] [address] Nurse Practitioner Cardiology 09/30/23 02/16/24 June Preston MD 1610 [facility] Tremaine West [facility] 103 [place] [address] Extrusion Die Corrector Cardiology 09/30/23 02/16/24 Sol Keita, DIRECTOR SELECTION AND ADMINISTRATION Corporate Relations ManagerEmail Marketing Intern 02/19/24 05/17/24 June Preston MD 125 E [facility], [address] [place] [address] Consulting Physician Cardiology 02/19/24 02/29/24 Oscar Rodriguez MD [address] [place] [address] 2, [address] [place] [address] Consulting Physician Cardiology 02/19/24 02/29/24 Diane Min, parachute inspectorEmail Marketing Intern 09/05/24 12/06/24 June Preston MD 125 E [facility] Medical [facility], [address] [place] [address] Extrusion Die Corrector Electrophysiology 09/13/24 Diane Min, parachute inspectorEmail Marketing Intern 01/16/25 01/31/25 documented as of this encounter
[2025-04-10 15:23] VITALS: BP 92/58; PULSE 64; TEMP 36.8; O2SAT 99; BMI 27.0
[2025-04-10] MEDS: ONDANSETRON PF 4 MG/2 ML VIAL IV (15:52)
[2025-04-10] MEDS: PROCHLORPERAZINE 10 MG/2 ML VIAL IV (15:52)
[2025-04-10] MEDS: MORPHINE SULFATE 2 MG/ML SYRINGE 4 MG IV (15:52)
[2025-04-10] MEDS: 0.9 % SODIUM CHLORIDE 1,000 ML 999 ML IV (15:52)
[2025-04-10 16:02] LABS: Basophils Absolute Auto 0.1 10^3/uL (0.0-0.1); Basophils Percent Auto 0.9 % (0.2-2.0); Eosinophils Absolute Auto 0.2 10^3/uL (0.0-0.7); Eosinophils Percent Auto 1.7 % (0.9-7.0); Hematocrit 27.9 % (36.0-48.0); Hemoglobin 8.8 g/dL (12.0-16.0); Immature Granulocytes Abs Auto 0.06 10^3/uL (0.00-0.03); Immature Granulocytes Pct Auto 0.5 % (0.0-0.5); Lymphocytes Absolute Auto 3.7 10^3/uL (1.2-3.8); Lymphocytes Percent Auto 30.9 % (20.5-60.0); Mean Corpuscular HGB Conc 31.5 g/dL (29.9-35.2); Mean Corpuscular Hemoglobin 22.6 pg (26.7-34.0); Mean Corpuscular Volume 71.5 fL (81.0-99.0); Mean Platelet Volume 10.2 fL (9.5-13.5); Monocytes Absolute Auto 0.9 10^3/uL (0.3-0.8); Monocytes Percent Auto 7.9 % (1.7-12.0); Neutrophils Absolute Auto 6.9 10^3/uL (1.4-6.5); Neutrophils Percent Auto 58.1 % (43.0-75.0); Platelet Count 687 10^3/uL (150-450); Red Cell Distribution Width 20.7 % (11.0-15.0); White Blood Count 11.9 10^3/uL (4.0-11.0)
[2025-04-10 16:19] LABS: Alanine Aminotransferase 32 U/L (14-59); Albumin Globulin Ratio 0.7; Albumin Level 2.8 g/dL (3.4-5.0); Alkaline Phosphatase 63 U/L (46-116); Anion Gap 15.1; Aspartate Amino Transferase 33 U/L (15-37); BUN Creatinine Ratio 13.3; Bilirubin Total 0.3 mg/dL (0.2-1.0); Carbon Dioxide 25.7 mmol/L (21.0-32.0); Chloride 99 mmol/L (98-107); Estimated GFR (African America >60 (>=60 mL/min/1.73m^2); Estimated GFR (Non-African Ame >60 (>=60 mL/min/1.73m^2); Globulin 4.1 g/dL; Glucose 113 mg/dL (74-106); Potassium 4.8 mmol/L (3.5-5.1); Sodium 135 mmol/L (136-145); Total Protein 6.9 g/dL (6.4-8.2); Troponin I High Sensitivity 8.7 pg/mL (4.0-51.3)
[2025-04-10 16:19] LABS: Lactate/Lactic Acid 1.7 mmol/L (0.4-2.0)
[2025-04-10] MEDS: 0.9 % SODIUM CHLORIDE 1,000 ML 1000 ML IV (16:58)
[2025-04-10 17:47] LABS: Bilirubin Urine NEGATIVE (NEGATIVE); Blood Urine TRACE-I (NEGATIVE); Clarity Urine CLEAR (CLEAR); Color Urine LT. YELLOW (YELLOW); Glucose Urine UA >=1000 mg/dL (NEGATIVE); Ketones Urine NEGATIVE (NEGATIVE); Leukocyte Esterase Urine NEGATIVE (NEGATIVE); Nitrite Urine NEGATIVE (NEGATIVE); Protein Urine NEGATIVE (NEG/TRACE); Specific Gravity Urine <=1.005 (1.005-1.025); Urobilinogen Urine 0.2 EU/dL (0.2-1.0)
[2025-04-10 17:58] VITALS: PULSE 78; O2SAT 100
[2025-04-10 18:13] LABS: Bacteria Urine TRACE #/HPF (NONE SEEN); Mucus Urine NONE SEEN (NONE SEEN); RBC Urine 0-2 #/HPF (0-2); Squamous Epithelial Cell Urine RARE #/LPF (NONE/RARE); WBC Urine 0-2 #/HPF (NONE SEEN)
[2025-04-10 18:14] LABS: Cast Seen? NONE SEEN #/LPF (NONE SEEN); Crystals Seen? None Seen #/HPF (None Seen); Urine Culture Indicated NO
[2025-04-10 18:47] LABS: Glucometer 119 mg/dL (74-106)
--- NOTE | 2025-04-10 18:52 | US_ITS ---
The [address] [address] Patient Name: KING MORENO MRN: [id number] date: 1960 Sex: F Assigned Patient Location: ER Current Patient Location: ER Accession/Order Number: [id number] Exam Date: 04/10/2025 19:43 Report Date: 04/10/2025 19:46 At the request of: SARA JASMINE Procedure: US pelvis Transabdominal and transvaginal pelvic ultrasound HISTORY: Ovarian cyst. COMPARISON: CT of the abdomen and pelvis 04/10/2025 Uterus anteverted. Uterus measures 6.6 x 2.2 x 4.1 cm. There is a hypoechoic area in the uterus measuring up to 2.3 cm likely representing fibroid. Endometrium has a total combined thickness of 2.4 mm. The right ovary measures 4.8 x 4.0 x 4.9 cm. Right ovary contains an anechoic cyst measuring 4.4 x 3.7 x 3.4 cm. Left ovary not visualized. No adnexal mass. No free fluid. US/US pelvis IMPRESSION: 4.4 cm anechoic right ovarian cyst. No free fluid. No adnexal mass. Suspected fibroid. Nonvisualization of left ovary. Impression dictated by: Joshua Miner M.D. 04/10/2025 7:46 PM Dictation Location: [place] [address] Electronically authenticated by: [id number] Y Date: 04/10/2025 19:46
--- NOTE | 2025-04-10 18:52 | ED.GENADUL1 ---
Documented by User: Charity Gerard 04/10/25 18:59 HPI HPI - General Adult General Chief complaint: Abdominal Pain Stated complaint: NAUSEA, DIZZY Time Seen by Provider: 04/10/25 15:37 Source: patient Mode of arrival: walk-in Limitations: no limitations History of Present Illness HPI narrative: 64-year-old female presenting to the emergency room with chief complaint of abdominal pain., Nausea and diarrhea. She was seen here yesterday in the emergency room worked up and discharged home with gastroenteritis diarrhea. She states pain was worse today and presented back into the emergency room complaining of abdominal pain cramping. Patient is not currently febrile. She complains of pain in the right upper quadrant and diffuse tenderness with diarrhea. She is currently afebrile. Related Data Home Medications ?Medication ?Instructions ?Recorded ?Confirmed amiodarone 200 mg tablet 200 mg PO Q24H 10/22/24 04/09/25 lansoprazole 30 mg capsule,delayed 30 mg PO .ACB 10/22/24 04/09/25 release meclizine 25 mg tablet 25 mg PO BID PRN dizziness 10/22/24 04/09/25 melatonin 5 mg tablet 5 mg PO DAILY 10/22/24 04/09/25 metoprolol succinate 25 mg 25 mg PO DAILY 10/22/24 04/09/25 tablet,extended release 24 hr mexiletine 150 mg capsule 150 mg PO Q8H 10/22/24 04/09/25 ranolazine 500 mg tablet,extended 500 mg PO Q12H 10/22/24 04/09/25 release,12 hr rosuvastatin 10 mg tablet 10 mg PO DAILY 10/22/24 04/09/25 magnesium 200 mg tablet 200 mg PO BID 10/30/24 04/09/25 lisinopril 5 mg tablet 5 mg PO .QD 10/31/24 04/09/25 quetiapine 100 mg tablet 200 mg PO .QHS 10/31/24 04/09/25 baclofen 10 mg tablet 10 mg PO TID PRN muscle spasm 02/01/25 04/09/25 ferrous sulfate 324 mg (65 mg mg PO 04/09/25 iron) tablet,delayed release rivaroxaban 10 mg tablet (Xarelto) 10 mg PO Q24H 04/09/25 04/09/25 ropinirole 1 mg tablet 1 mg PO HS 04/09/25 04/09/25 sertraline 25 mg tablet mg 04/09/25 spironolactone 25 mg tablet mg 04/09/25 Previous Rx's ?Medication ?Instructions ?Recorded lorazepam 0.5 mg tablet (Ativan) 0.5 mg PO Q8H PRN twitching 4 days 03/25/25 #14 tabs methylprednisolone 4 mg tablets in See Rx Instructions .Route 03/25/25 a dose pack (Medrol (Mat)) .COMPLEX #21 ea Allergies Allergy/AdvReac Type Severity Reaction Status Date / Time No Known Drug Allergies Allergy Verified 04/10/25 15:23 Opioid HPI Opioid Management Most Recent Opioid Data: Last Pain Scale 9 Today, 15:52 Last Pain Intensity 0 10/31/24, 09:34 Last MAR Pain Assessment Today, 15:52 Last ORT Total Score 8 10/30/24, 17:53 Last ORT Risk Category High Risk 10/30/24, 17:53 Review of Systems ROS Status of ROS 10 or more systems reviewed and unremarkable except as noted in history and below [facility] Medical History Pacemaker ?Z95.0 - Presence of cardiac pacemaker (ICD-10) Acute GI bleeding ?K92.2 - Gastrointestinal hemorrhage, unspecified (ICD-10) Elevated INR ?R79.1 - Abnormal coagulation profile (ICD-10) Pneumonia ?J18.9 - Pneumonia, unspecified organism (ICD-10) Dyspnea ?R06.00 - Dyspnea, unspecified (ICD-10) Dizziness ?R42 - Dizziness and giddiness (ICD-10) Diabetes ?E11.9 - Type 2 diabetes mellitus without complications (ICD-10) Bipolar 1 disorder, depressed ?F31.9 - Bipolar disorder, unspecified (ICD-10) HTN (hypertension) ?I10 - Essential (primary) hypertension (ICD-10) High cholesterol ?E78.00 - Pure hypercholesterolemia, unspecified (ICD-10) Afib ?I48.91 - Unspecified atrial fibrillation (ICD-10) Surgical History H/O tubal ligation ?Z98.51 - Tubal ligation status (ICD-10) Hx of cholecystectomy ?Z90.49 - Acquired absence of other specified parts of digestive tract (ICD-10) Status post other internal cardiac defibrillator procedure ?Z95.0 - Presence of cardiac pacemaker (ICD-10) History of bowel resection ?Z90.49 - Acquired absence of other specified parts of digestive tract (ICD-10) Family History Father Heart attack Brother Heart attack Sister Heart attack Diabetes Son Diabetes Social History Within the past year, how often did you have a drink containing alcohol: never Within the past year, how often did you have six or more drinks on one occasion: never Score interpretation: A score less than 3 is consistent with normal alcohol consumption. 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 General: The patient appears well and in no apparent distress. Patient is resting comfortably on cart. Skin: Warm, dry, no pallor noted. There is no rash noted. Head: Normocephalic, atraumatic Eye: Normal conjunctiva, no drainage, EOMI. PERRL Ears, Nose, Mouth, and Throat: oral mucosa is moist. Nares patent. Mouth without vesicles. Ear canals patent. Tm's without Erythema Cardiovascular: Regular Rate and Rhythm Respiratory: Patient is in no distress, no accessory muscle use, lungs are clear to auscultation, no wheezing, rales or rhonchi Back: non-tender, no CVA tenderness bilaterally to percussion. GI: Normal bowel sounds, no tenderness to palpation, no masses appreciated. No rebound, guarding, or rigidity noted. Musculoskeletal: The patient has no evidence of calf tenderness, no pitting edema, symmetrical pulses noted bilaterally Neurological: A&O x4, normal speech Psychiatric: Cooperative Constitutional Vital Signs, click to edit/add: Last Vital Signs Temp 98.3 F 04/10/25 15:23 Pulse 78 06/09/25 17:58 Resp 18 04/10/25 17:58 BP 92/58 04/10/25 15:23 Pulse Ox 100 04/10/25 17:58 O2 Del Method Room Air 04/10/25 17:58 Course Vital Signs Vital signs: Vital Signs Temperature 98.3 F 04/10/25 15:23 Pulse Rate 64 04/10/25 15:23 Respiratory Rate 16 04/10/25 15:23 Blood Pressure 92/58 04/10/25 15:23 Pulse Oximetry 99 04/10/25 15:23 Oxygen Delivery Method Room Air 04/10/25 15:23 Temperature 98.3 F 04/10/25 15:23 Pulse Rate 78 04/10/25 17:58 Respiratory Rate 18 04/10/25 17:58 Blood Pressure 92/58 04/10/25 15:23 Pulse Oximetry 100 04/10/25 17:58 Oxygen Delivery Method Room Air 04/10/25 17:58 Medical Decision Making MDM Narrative Medical decision making narrative: 64-year-old female presenting to the emergency room with chief complaint of abdominal pain., Nausea and diarrhea. She was seen here yesterday in the emergency room worked up and discharged home with gastroenteritis diarrhea. She states pain was worse today and presented back into the emergency room complaining of abdominal pain cramping. Patient is not currently febrile. She complains of pain in the right upper quadrant and diffuse tenderness with diarrhea. She is currently afebrile. . To emergency room complete 10 AM of abdominal pain cramping and diarrhea. Lab work was reviewed. Patient had a negative stool culture yesterday for Hemoccult. CBC was repeated today and continues to show a hemoglobin of 8.8 hematocrit also low. Remainder of blood work was unremarkable. CT scan showed no acute abnormality other than known ovarian cyst. Patient is unaware of her ovarian cyst and stated had been done performed several months ago in [facility]. She is going to follow-up with Dr. Ewing's office for repeat ultrasound. Patient's abdomen soft nontender to palpation. She was medicated here with IV fluids. She had complained of a restless leg syndrome with chronic condition for her. She is stable and states she feels much better ready to be discharged home Differential Diagnosis Differential Diagnosis: abdominal pain, nausea and vomiting Medical Records Medical records reviewed: Yes I reviewed the patient's medical records Medical records narrative: 64-year-old female presenting to the emergency room with chief complaint of abdominal pain., Nausea and diarrhea. She was seen here yesterday in the emergency room worked up and discharged home with gastroenteritis diarrhea. She states pain was worse today and presented back into the emergency room complaining of abdominal pain cramping. Patient is not currently febrile. She complains of pain in the right upper quadrant and diffuse tenderness with diarrhea. She is currently afebrile. . To emergency room complete 10 AM of abdominal pain cramping and diarrhea. Lab work was reviewed. Patient had a negative stool culture yesterday for Hemoccult. CBC was repeated today and continues to show a hemoglobin of 8.8 hematocrit also low. Remainder of blood work was unremarkable. CT scan showed no acute abnormality other than known ovarian cyst. Patient is unaware of her ovarian cyst and stated had been done performed several months ago in [facility]. She is going to follow-up with Dr. Ewing's office for repeat ultrasound. Patient's abdomen soft nontender to palpation. She was medicated here with IV fluids. She had complained of a restless leg syndrome with chronic condition for her. She is stable and states she feels much better ready to be discharged home Lab Data Lab results reviewed: Yes I reviewed the patient's lab results Labs: Lab Results 04/10/25 04/10/25 04/10/25 Range/Units 15:45 15:56 17:30 WBC 11.9 H (4.0-11.0) 10^3/uL RBC 3.90 L (4.20-5.40) 10^6/uL Hgb 8.8 L (12.0-16.0) g/dL Hct 27.9 L (36.0-48.0) % MCV 71.5 L (81.0-99.0) fL MCH 22.6 L (26.7-34.0) pg MCHC 31.5 (29.9-35.2) g/dL RDW 20.7 H (11.0-15.0) % Plt Count 687 H (150-450) 10^3/uL MPV 10.2 (9.5-13.5) fL Neut % (Auto) 58.1 (43.0-75.0) % Lymph % (Auto) 30.9 (20.5-60.0) % [place] % (Auto) 7.9 (1.7-12.0) % Eos % (Auto) 1.7 (0.9-7.0) % Baso % (Auto) 0.9 (0.2-2.0) % Neut # (Auto) 6.9 H (1.4-6.5) 10^3/uL Lymph # (Auto) 3.7 (1.2-3.8) 10^3/uL [place] # (Auto) 0.9 H (0.3-0.8) 10^3/uL Eos # (Auto) 0.2 (0.0-0.7) 10^3/uL Baso # (Auto) 0.1 (0.0-0.1) 10^3/uL Abs Immat Gran (auto) 0.06 H (0.00-0.03) 10^3/uL Imm/Tot Granulo (auto) 0.5 (0.0-0.5) % Sodium 135 L (136-145) mmol/L Potassium 4.8 (3.5-5.1) mmol/L Chloride 99 (98-107) mmol/L Carbon Dioxide 25.7 (21.0-32.0) mmol/L Anion Gap 15.1 BUN 10.0 (7.0-18.0) mg/dL Creatinine 0.75 (0.55-1.02) mg/dL Est GFR ( Amer) >60 (>=60 mL/min/1.73m^2) Est GFR (Non-Af Amer) >60 (>=60 mL/min/1.73m^2) BUN/Creatinine Ratio 13.3 Glucose 113 H (74-106) mg/dL Lactate 1.7 (0.4-2.0) mmol/L Calcium 9.0 (8.5-10.1) mg/dL Total Bilirubin 0.3 (0.2-1.0) mg/dL AST 33 (15-37) U/L ALT 32 (14-59) U/L Alkaline Phosphatase 63 (46-116) U/L Troponin I High Sens 8.7 (4.0-51.3) pg/mL Total Protein 6.9 (6.4-8.2) g/dL Albumin 2.8 L (3.4-5.0) g/dL Globulin 4.1 g/dL Albumin/Globulin Ratio 0.7 Lipase 126.0 H (16.0-77.0) U/L Urine Color Lt. yellow (YELLOW) Urine Clarity Clear (CLEAR) Urine pH 6.0 (5.0-9.0) Ur Specific [place] <=1.005 A (1.005-1.025) Urine Protein Negative (NEG/TRACE) mg/dL Urine Glucose (UA) >=1000 A (NEGATIVE) mg/dL Urine Ketones Negative (NEGATIVE) mg/dL Urine Occult Blood Trace-i (NEGATIVE) Urine Nitrite Negative (NEGATIVE) Urine Bilirubin Negative (NEGATIVE) Urine Urobilinogen 0.2 (0.2-1.0) EU/dL Ur Leukocyte Esterase Negative (NEGATIVE) Urine RBC 0-2 (0-2) #/HPF Urine WBC 0-2 A (NONE SEEN) #/HPF Ur Squamous Epith Cells Rare (NONE/RARE) #/LPF Urine Crystals None seen (None Seen) #/HPF Urine Bacteria Trace A (NONE SEEN) #/HPF Urine Casts None seen (NONE SEEN) #/LPF Urine Mucus None seen (NONE SEEN) Ur Culture Indicated? No POC Glucose (74-106) mg/dL 04/10/25 Range/Units 18:46 WBC (4.0-11.0) 10^3/uL RBC (4.20-5.40) 10^6/uL Hgb (12.0-16.0) g/dL Hct (36.0-48.0) % MCV (81.0-99.0) fL MCH (26.7-34.0) pg MCHC (29.9-35.2) g/dL RDW (11.0-15.0) % Plt Count (150-450) 10^3/uL MPV (9.5-13.5) fL Neut % (Auto) (43.0-75.0) % Lymph % (Auto) (20.5-60.0) % [place] % (Auto) (1.7-12.0) % Eos % (Auto) (0.9-7.0) % Baso % (Auto) (0.2-2.0) % Neut # (Auto) (1.4-6.5) 10^3/uL Lymph # (Auto) (1.2-3.8) 10^3/uL [place] # (Auto) (0.3-0.8) 10^3/uL Eos # (Auto) (0.0-0.7) 10^3/uL Baso # (Auto) (0.0-0.1) 10^3/uL Abs Immat Gran (auto) (0.00-0.03) 10^3/uL Imm/Tot Granulo (auto) (0.0-0.5) % Sodium (136-145) mmol/L Potassium (3.5-5.1) mmol/L Chloride (98-107) mmol/L Carbon Dioxide (21.0-32.0) mmol/L Anion Gap BUN (7.0-18.0) mg/dL Creatinine (0.55-1.02) mg/dL Est GFR ( Amer) (>=60 mL/min/1.73m^2) Est GFR (Non-Af Amer) (>=60 mL/min/1.73m^2) BUN/Creatinine Ratio Glucose (74-106) mg/dL Lactate (0.4-2.0) mmol/L Calcium (8.5-10.1) mg/dL Total Bilirubin (0.2-1.0) mg/dL AST (15-37) U/L ALT (14-59) U/L Alkaline Phosphatase (46-116) U/L Troponin I High Sens (4.0-51.3) pg/mL Total Protein (6.4-8.2) g/dL Albumin (3.4-5.0) g/dL Globulin g/dL Albumin/Globulin Ratio Lipase (16.0-77.0) U/L Urine Color (YELLOW) Urine Clarity (CLEAR) Urine pH (5.0-9.0) Ur Specific [place] (1.005-1.025) Urine Protein (NEG/TRACE) mg/dL Urine Glucose (UA) (NEGATIVE) mg/dL Urine Ketones (NEGATIVE) mg/dL Urine Occult Blood (NEGATIVE) Urine Nitrite (NEGATIVE) Urine Bilirubin (NEGATIVE) Urine Urobilinogen (0.2-1.0) EU/dL Ur Leukocyte Esterase (NEGATIVE) Urine RBC (0-2) #/HPF Urine WBC (NONE SEEN) #/HPF Ur Squamous Epith Cells (NONE/RARE) #/LPF Urine Crystals (None Seen) #/HPF Urine Bacteria (NONE SEEN) #/HPF Urine Casts (NONE SEEN) #/LPF Urine Mucus (NONE SEEN) Ur Culture Indicated? POC Glucose 119 H (74-106) mg/dL Imaging Data CT scan - abdomen: Attestation: I have reviewed the pertinent imaging results. Radiologist's impression: ITS Impressions Pelvis Ultrasound 04/10/25 18:52 IMPRESSION: 4.4 cm anechoic right ovarian cyst. No free fluid. No adnexal mass. Suspected fibroid. Nonvisualization of left ovary. Impression dictated by: Joshua Miner M.D. 04/10/2025 7:46 PM Dictation Location: [place] [id number] Electronically authenticated by: [id number] Y Date: 04/10/2025 19:46 Abdomen pelvis shows no acute process in the abdomen or pelvis enlarged to the right ovary versus large ovarian cyst 4.5 cm follow-up with pelvic ultrasound if not recently performed Discharge Plan Discharge Chief Complaint: Abdominal Pain Clinical Impression: Diarrhea, Abdominal pain, Anemia, Ovarian cyst Patient Disposition: Home, Self-Care Time of Disposition Decision: 18:18 Condition: Good Prescriptions / Home Meds: No Action baclofen 10 mg tablet 10 mg PO TID PRN (Reason: muscle spasm) methylprednisolone [Medrol (Mat)] 4 mg tablets,dose pack See Rx Instructions .Route .COMPLEX Qty: 21 0RF Rx Instructions: Take as directed lorazepam [Ativan] 0.5 mg tablet 0.5 mg PO Q8H PRN (Reason: twitching) 4 Days Qty: 14 0RF ferrous sulfate 324 mg (65 mg iron) tablet,delayed release (DR/EC) PO Xarelto 10 mg tablet 10 mg PO Q24H ropinirole 1 mg tablet 1 mg PO HS spironolactone 25 mg tablet sertraline 25 mg tablet amiodarone 200 mg tablet 200 mg PO Q24H lansoprazole 30 mg capsule,delayed release(DR/EC) 30 mg PO .ACB meclizine 25 mg tablet 25 mg PO BID PRN (Reason: dizziness) melatonin 5 mg tablet 5 mg PO DAILY metoprolol succinate 25 mg tablet extended release 24 hr 25 mg PO DAILY mexiletine 150 mg capsule 150 mg PO Q8H ranolazine 500 mg tablet extended release 12 hr 500 mg PO Q12H rosuvastatin 10 mg tablet 10 mg PO DAILY magnesium 200 mg tablet 200 mg PO BID quetiapine 100 mg tablet 200 mg PO .QHS lisinopril 5 mg tablet 5 mg PO .QD Print Language: Welsh Instructions: Ovarian Cyst (ED), Acute Diarrhea (ED), Abdominal Pain (ED) Referrals: BONNY FERMIN [Physician, Gastroenterology] - 1 week David Ewing DO [Physician, SENIOR ANALYST PROGRAMMER] - 1 week JOVANI HANSON [Primary Care Provider, Unknown] - 1 week Discharge Date/Time: 04/10/25 18:27 Documented by User: Joshua Millan MD 04/10/25 20:18 HPI HPI - General Adult General Chief complaint: Abdominal Pain Stated complaint: NAUSEA, DIZZY Time Seen by Provider: 04/10/25 15:37 Related Data Home Medications ?Medication ?Instructions ?Recorded ?Confirmed amiodarone 200 mg tablet 200 mg PO Q24H 10/22/24 04/09/25 lansoprazole 30 mg capsule,delayed 30 mg PO .ACB 10/22/24 04/09/25 release meclizine 25 mg tablet 25 mg PO BID PRN dizziness 10/22/24 04/09/25 melatonin 5 mg tablet 5 mg PO DAILY 10/22/24 04/09/25 metoprolol succinate 25 mg 25 mg PO DAILY 10/22/24 04/09/25 tablet,extended release 24 hr mexiletine 150 mg capsule 150 mg PO Q8H 10/22/24 04/09/25 ranolazine 500 mg tablet,extended 500 mg PO Q12H 10/22/24 04/09/25 release,12 hr rosuvastatin 10 mg tablet 10 mg PO DAILY 10/22/24 04/09/25 magnesium 200 mg tablet 200 mg PO BID 10/30/24 04/09/25 lisinopril 5 mg tablet 5 mg PO .QD 10/31/24 04/09/25 quetiapine 100 mg tablet 200 mg PO .QHS 10/31/24 04/09/25 baclofen 10 mg tablet 10 mg PO TID PRN muscle spasm 02/01/25 04/09/25 ferrous sulfate 324 mg (65 mg mg PO 04/09/25 iron) tablet,delayed release rivaroxaban 10 mg tablet (Xarelto) 10 mg PO Q24H 04/09/25 04/09/25 ropinirole 1 mg tablet 1 mg PO HS 04/09/25 04/09/25 sertraline 25 mg tablet mg 04/09/25 spironolactone 25 mg tablet mg 04/09/25 Previous Rx's ?Medication ?Instructions ?Recorded lorazepam 0.5 mg tablet (Ativan) 0.5 mg PO Q8H PRN twitching 4 days 03/25/25 #14 tabs methylprednisolone 4 mg tablets in See Rx Instructions .Route 03/25/25 a dose pack (Medrol (Mat)) .COMPLEX #21 ea Allergies Allergy/AdvReac Type Severity Reaction Status Date / Time No Known Drug Allergies Allergy Verified 04/10/25 15:23 Opioid HPI Opioid Management Most Recent Opioid Data: Last Pain Scale 9 Today, 15:52 Last Pain Intensity 0 10/31/24, 09:34 Last MAR Pain Assessment Today, 15:52 Last ORT Total Score 8 10/30/24, 17:53 Last ORT Risk Category High Risk 10/30/24, 17:53 PFSH PFSH Medical History Pacemaker ?Z95.0 - Presence of cardiac pacemaker (ICD-10) Acute GI bleeding ?K92.2 - Gastrointestinal hemorrhage, unspecified (ICD-10) Elevated INR ?R79.1 - Abnormal coagulation profile (ICD-10) Pneumonia ?J18.9 - Pneumonia, unspecified organism (ICD-10) Dyspnea ?R06.00 - Dyspnea, unspecified (ICD-10) Dizziness ?R42 - Dizziness and giddiness (ICD-10) Diabetes ?E11.9 - Type 2 diabetes mellitus without complications (ICD-10) Bipolar 1 disorder, depressed ?F31.9 - Bipolar disorder, unspecified (ICD-10) HTN (hypertension) ?I10 - Essential (primary) hypertension (ICD-10) High cholesterol ?E78.00 - Pure hypercholesterolemia, unspecified (ICD-10) Afib ?I48.91 - Unspecified atrial fibrillation (ICD-10) Surgical History H/O tubal ligation ?Z98.51 - Tubal ligation status (ICD-10) Hx of cholecystectomy ?Z90.49 - Acquired absence of other specified parts of digestive tract (ICD-10) Status post other internal cardiac defibrillator procedure ?Z95.0 - Presence of cardiac pacemaker (ICD-10) History of bowel resection ?Z90.49 - Acquired absence of other specified parts of digestive tract (ICD-10) Family History Father Heart attack Brother Heart attack Sister Heart attack Diabetes Son Diabetes Social History Within the past year, how often did you have a drink containing alcohol: never Within the past year, how often did you have six or more drinks on one occasion: never Score interpretation: A score less than 3 is consistent with normal alcohol consumption. 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 Known occupational exposures/hazards: No Highest level of school completed/degree received: GED or equivalent Little interest or pleasure in doing things: not at all Feeling down, depressed, or hopeless: not at all Exam Constitutional Vital Signs, click to edit/add: Last Vital Signs Temp 98.3 F 04/10/25 15:23 Pulse 78 04/10/25 17:58 Resp 18 04/10/25 17:58 BP 92/58 04/10/25 15:23 Pulse Ox 100 04/10/25 17:58 O2 Del Method Room Air 04/10/25 17:58 Course Vital Signs Vital signs: Vital Signs Temperature 98.3 F 04/10/25 15:23 Pulse Rate 64 04/10/25 15:23 Respiratory Rate 16 04/10/25 15:23 Blood Pressure 92/58 04/10/25 15:23 Pulse Oximetry 99 04/10/25 15:23 Oxygen Delivery Method Room Air 04/10/25 15:23 Temperature 98.3 F 04/10/25 15:23 Pulse Rate 78 04/10/25 17:58 Respiratory Rate 18 04/10/25 17:58 Blood Pressure 92/58 04/10/25 15:23 Pulse Oximetry 100 04/10/25 17:58 Oxygen Delivery Method Room Air 04/10/25 17:58 Medical Decision Making MDM Narrative Medical decision making narrative: 64-year-old female presenting to the emergency room with chief complaint of abdominal pain., Nausea and diarrhea. She was seen here yesterday in the emergency room worked up and discharged home with gastroenteritis diarrhea. She states pain was worse today and presented back into the emergency room complaining of abdominal pain cramping. Patient is not currently febrile. She complains of pain in the right upper quadrant and diffuse tenderness with diarrhea. She is currently afebrile. . To emergency room complete 10 AM of abdominal pain cramping and diarrhea. Lab work was reviewed. Patient had a negative stool culture yesterday for Hemoccult. CBC was repeated today and continues to show a hemoglobin of 8.8 hematocrit also low. Remainder of blood work was unremarkable. CT scan showed no acute abnormality other than known ovarian cyst. Patient is unaware of her ovarian cyst and stated had been done performed several months ago in [facility]. She is going to follow-up with Dr. Ewing's office for repeat ultrasound. Patient's abdomen soft nontender to palpation. She was medicated here with IV fluids. She had complained of a restless leg syndrome with chronic condition for her. She is stable and states she feels much better ready to be discharged home I, Dr Millan, have reviewed the above progress note and course of action in the ER; agree with the above. I have personally gone over history and physical, and discussed disposition and treatment plan with the PA. Lab Data Labs: Lab Results 04/10/25 04/10/25 04/10/25 Range/Units 15:45 15:56 17:30 WBC 11.9 H (4.0-11.0) 10^3/uL RBC 3.90 L (4.20-5.40) 10^6/uL Hgb 8.8 L (12.0-16.0) g/dL Hct 27.9 L (36.0-48.0) % MCV 71.5 L (81.0-99.0) fL MCH 22.6 L (26.7-34.0) pg MCHC 31.5 (29.9-35.2) g/dL RDW 20.7 H (11.0-15.0) % Plt Count 687 H (150-450) 10^3/uL MPV 10.2 (9.5-13.5) fL Neut % (Auto) 58.1 (43.0-75.0) % Lymph % (Auto) 30.9 (20.5-60.0) % [place] % (Auto) 7.9 (1.7-12.0) % Eos % (Auto) 1.7 (0.9-7.0) % Baso % (Auto) 0.9 (0.2-2.0) % Neut # (Auto) 6.9 H (1.4-6.5) 10^3/uL Lymph # (Auto) 3.7 (1.2-3.8) 10^3/uL [place] # (Auto) 0.9 H (0.3-0.8) 10^3/uL Eos # (Auto) 0.2 (0.0-0.7) 10^3/uL Baso # (Auto) 0.1 (0.0-0.1) 10^3/uL Abs Immat Gran (auto) 0.06 H (0.00-0.03) 10^3/uL Imm/Tot Granulo (auto) 0.5 (0.0-0.5) % Sodium 135 L (136-145) mmol/L Potassium 4.8 (3.5-5.1) mmol/L Chloride 99 (98-107) mmol/L Carbon Dioxide 25.7 (21.0-32.0) mmol/L Anion Gap 15.1 BUN 10.0 (7.0-18.0) mg/dL Creatinine 0.75 (0.55-1.02) mg/dL Est GFR ( Amer) >60 (>=60 mL/min/1.73m^2) Est GFR (Non-Af Amer) >60 (>=60 mL/min/1.73m^2) BUN/Creatinine Ratio 13.3 Glucose 113 H (74-106) mg/dL Lactate 1.7 (0.4-2.0) mmol/L Calcium 9.0 (8.5-10.1) mg/dL Total Bilirubin 0.3 (0.2-1.0) mg/dL AST 33 (15-37) U/L ALT 32 (14-59) U/L Alkaline Phosphatase 63 (46-116) U/L Troponin I High Sens 8.7 (4.0-51.3) pg/mL Total Protein 6.9 (6.4-8.2) g/dL Albumin 2.8 L (3.4-5.0) g/dL Globulin 4.1 g/dL Albumin/Globulin Ratio 0.7 Lipase 126.0 H (16.0-77.0) U/L Urine Color Lt. yellow (YELLOW) Urine Clarity Clear (CLEAR) Urine pH 6.0 (5.0-9.0) Ur Specific [place] <=1.005 A (1.005-1.025) Urine Protein Negative (NEG/TRACE) mg/dL Urine Glucose (UA) >=1000 A (NEGATIVE) mg/dL Urine Ketones Negative (NEGATIVE) mg/dL Urine Occult Blood Trace-i (NEGATIVE) Urine Nitrite Negative (NEGATIVE) Urine Bilirubin Negative (NEGATIVE) Urine Urobilinogen 0.2 (0.2-1.0) EU/dL Ur Leukocyte Esterase Negative (NEGATIVE) Urine RBC 0-2 (0-2) #/HPF Urine WBC 0-2 A (NONE SEEN) #/HPF Ur Squamous Epith Cells Rare (NONE/RARE) #/LPF Urine Crystals None seen (None Seen) #/HPF Urine Bacteria Trace A (NONE SEEN) #/HPF Urine Casts None seen (NONE SEEN) #/LPF Urine Mucus None seen (NONE SEEN) Ur Culture Indicated? No POC Glucose (74-106) mg/dL 04/10/25 Range/Units 18:46 WBC (4.0-11.0) 10^3/uL RBC (4.20-5.40) 10^6/uL Hgb (12.0-16.0) g/dL Hct (36.0-48.0) % MCV (81.0-99.0) fL MCH (26.7-34.0) pg MCHC (29.9-35.2) g/dL RDW (11.0-15.0) % Plt Count (150-450) 10^3/uL MPV (9.5-13.5) fL Neut % (Auto) (43.0-75.0) % Lymph % (Auto) (20.5-60.0) % [place] % (Auto) (1.7-12.0) % Eos % (Auto) (0.9-7.0) % Baso % (Auto) (0.2-2.0) % Neut # (Auto) (1.4-6.5) 10^3/uL Lymph # (Auto) (1.2-3.8) 10^3/uL [place] # (Auto) (0.3-0.8) 10^3/uL Eos # (Auto) (0.0-0.7) 10^3/uL Baso # (Auto) (0.0-0.1) 10^3/uL Abs Immat Gran (auto) (0.00-0.03) 10^3/uL Imm/Tot Granulo (auto) (0.0-0.5) % Sodium (136-145) mmol/L Potassium (3.5-5.1) mmol/L Chloride (98-107) mmol/L Carbon Dioxide (21.0-32.0) mmol/L Anion Gap BUN (7.0-18.0) mg/dL Creatinine (0.55-1.02) mg/dL Est GFR ( Amer) (>=60 mL/min/1.73m^2) Est GFR (Non-Af Amer) (>=60 mL/min/1.73m^2) BUN/Creatinine Ratio Glucose (74-106) mg/dL Lactate (0.4-2.0) mmol/L Calcium (8.5-10.1) mg/dL Total Bilirubin (0.2-1.0) mg/dL AST (15-37) U/L ALT (14-59) U/L Alkaline Phosphatase (46-116) U/L Troponin I High Sens (4.0-51.3) pg/mL Total Protein (6.4-8.2) g/dL Albumin (3.4-5.0) g/dL Globulin g/dL Albumin/Globulin Ratio Lipase (16.0-77.0) U/L Urine Color (YELLOW) Urine Clarity (CLEAR) Urine pH (5.0-9.0) Ur Specific [place] (1.005-1.025) Urine Protein (NEG/TRACE) mg/dL Urine Glucose (UA) (NEGATIVE) mg/dL Urine Ketones (NEGATIVE) mg/dL Urine Occult Blood (NEGATIVE) Urine Nitrite (NEGATIVE) Urine Bilirubin (NEGATIVE) Urine Urobilinogen (0.2-1.0) EU/dL Ur Leukocyte Esterase (NEGATIVE) Urine RBC (0-2) #/HPF Urine WBC (NONE SEEN) #/HPF Ur Squamous Epith Cells (NONE/RARE) #/LPF Urine Crystals (None Seen) #/HPF Urine Bacteria (NONE SEEN) #/HPF Urine Casts (NONE SEEN) #/LPF Urine Mucus (NONE SEEN) Ur Culture Indicated? POC Glucose 119 H (74-106) mg/dL Imaging Data CT scan - abdomen: Radiologist's impression: ITS Impressions Pelvis Ultrasound 04/10/25 18:52 IMPRESSION: 4.4 cm anechoic right ovarian cyst. No free fluid. No adnexal mass. Suspected fibroid. Nonvisualization of left ovary. Impression dictated by: Joshua Miner M.D. 04/10/2025 7:46 PM Dictation Location: [employer] Electronically authenticated by: [id number] Y Date: 04/10/2025 19:46 Discharge Plan Discharge Chief Complaint: Abdominal Pain Clinical Impression: Diarrhea, Abdominal pain, Anemia, Ovarian cyst Patient Disposition: Home, Self-Care Time of Disposition Decision: 18:18 Condition: Good Prescriptions / Home Meds: No Action baclofen 10 mg tablet 10 mg PO TID PRN (Reason: muscle spasm) methylprednisolone [Medrol (Mat)] 4 mg tablets,dose pack See Rx Instructions .Route .COMPLEX Qty: 21 0RF Rx Instructions: Take as directed lorazepam [Ativan] 0.5 mg tablet 0.5 mg PO Q8H PRN (Reason: twitching) 4 Days Qty: 14 0RF ferrous sulfate 324 mg (65 mg iron) tablet,delayed release (DR/EC) PO Xarelto 10 mg tablet 10 mg PO Q24H ropinirole 1 mg tablet 1 mg PO HS spironolactone 25 mg tablet sertraline 25 mg tablet amiodarone 200 mg tablet 200 mg PO Q24H lansoprazole 30 mg capsule,delayed release(DR/EC) 30 mg PO .ACB meclizine 25 mg tablet 25 mg PO BID PRN (Reason: dizziness) melatonin 5 mg tablet 5 mg PO DAILY metoprolol succinate 25 mg tablet extended release 24 hr 25 mg PO DAILY mexiletine 150 mg capsule 150 mg PO Q8H ranolazine 500 mg tablet extended release 12 hr 500 mg PO Q12H rosuvastatin 10 mg tablet 10 mg PO DAILY magnesium 200 mg tablet 200 mg PO BID quetiapine 100 mg tablet 200 mg PO .QHS lisinopril 5 mg tablet 5 mg PO .QD Print Language: Welsh Instructions: Ovarian Cyst (ED), Acute Diarrhea (ED), Abdominal Pain (ED) Referrals: BONNY FERMIN [Physician, Gastroenterology] - 1 week David Ewing DO [Physician, SENIOR ANALYST PROGRAMMER] - 1 week JOVANI HANSON [Primary Care Provider, Unknown] - 1 week Discharge Date/Time: 04/10/25 18:27
== END 2025-04-10 18:27 | disposition home or self-care (01) ==
PROVIDERS: Emergency Provider Emergency Medicine; PCP Nurse Practitioner Family
DX: R10.11 Right upper quadrant pain (principal); R19.7 Diarrhea, unspecified; Z95.0 Presence of cardiac pacemaker; Z90.49 Acquired absence of other specified parts of digestive tract; Z98.51 Tubal ligation status; D64.9 Anemia, unspecified; N83.201 Unspecified ovarian cyst, right side
CPT/HCPCS: 36415; 71045; 74177; 76856; 80053; 81001; 83605; 83690; 84484; 85025; 96361; 96374; 96375; 99285; J0780; J2270; J2405; Q9967

== ENCOUNTER 2025-04-10 18:53 | Observation (INO) | payer MEDICARE, MEDICAID, SELFPAY ==
--- OUTSIDE RECORDS SUMMARY | 2023-05-28 09:36 | XMS_ITS | Continuity of Care Document ---
Author Organization [facility] Address [address] [place] [address] Phone Care Team Providers Care Emergency Preparedness Manager Name Role Phone Paolo Olivo Unavailable Unavailable [...] Limited Oral Eval Intraoral-periapical 1st Film 4 [id number] Additional Jan [facility] FP MEDICAID Condoms FLU VACCINE, 3 YRS & >, IM NEW FP MEDICAID URINALYSIS, NONAUTO W/SCOPE SPECIMEN HANDLING FLU VACCINE, 3 YRS & >, IM Advance Directives Directive Yes / No Effective Date File Name No Information Encounters Encounter Description Practice Location Reason(s) For Visit Diagnoses Date Provider Providers Copied on Encounter [facility], [address] [place] [address], [id number] , [place] tel:[phone] [facility] No Information 3 Visci DO Paolo. [address] [place] [address], [id number], [place]. tel:[phone] OFFICE/OUTPA TIENT VISIT, EST [facility], [address] [place] [address], [id number] , tel:[phone] [facility] med refills (chief complaint) Body mass index [BMI] 36.0-36.9, adultCOPD w/ acute exacerbationLow back pain, unspecified [address] [facility] [address], [place], [id number], [place]. tel:[phone] [facility], [address], [place], [id number] , [place] tel:[phone] [facility] lab draw (chief complaint) Chronic obstructive pulmonary disease, unspecified [address] [facility] DO [facility] [address], [place], [id number], [place]. tel:[phone] OFFICE/OUTPA TIENT VISIT, [facility], [address] [place] [address], [id number] , [place] tel: [phone] [facility] Med Refills (chief complaint)fa tigue (chief complaint) Body mass index [BMI] 36.0-36.9, adultAnxiety disorder, unspecifiedChron ic obstructive pulmonary disease, unspecifiedCOPD w/ acute exacerbationIron deficiency anemia due to chronic blood lossType 2 diabetes mellitus without complications [address] [facility] DO Max[facility] [address] [place] [address], [id number], [place]. tel:[phone] OFFICE/OUTPA TIENT VISIT, [facility], [address] [place] [address], [id number] , [place] tel:[phone] [facility] med refill (chief complaint) Body mass index [BMI] 36.0-36.9, adultCarpal tunnel syndrome, leftCervicalgiaM yash problem Sep- [address] [facility] DO Max[facility] [address] [place] [address], [id number], [place]. tel:[phone] OFFICE/OUTPA TIENT VISIT, [facility], [address] [place] [address], [id number] , [place] tel:[phone] [facility] A1C & Med Refills (chief complaint)di abetes (chief complaint) Body mass index [BMI] 36.0-36.9, adultType 2 diabetes mellitus with hyperglycemiaAnx iety disorder, unspecifiedCervi calgia 1 [facility] [address], [place], [id number], [place]. tel:[phone] OFFICE/OUTPA TIENT VISIT, [facility], [address], [place], [id number] , [place] tel: [phone] [facility] Med Refills (chief complaint)Mu sculoskeleta l pain (chief complaint) Anxiety disorder, unspecifiedCervi calgiaUnspecifie d sprain of left wrist, initial encounterBody mass index [BMI] 36.0-36.9, adult 1 [facility]. [address] [place] [address], [id number], [place]. tel:[phone] OFFICE/OUTPA TIENT VISIT, [facility], [address] [place] [address], [id number] , [place] tel: [phone] [facility] med refill (chief complaint)fa tigue (chief complaint) Body mass index [BMI] 36.0-36.9, adultType 2 diabetes mellitus with other circulatory complicationsAnx iety disorder, unspecified 1 [facility]. [address] [place] [address], [id number], [place]. tel:[phone] OFFICE/OUTPA TIENT VISIT, [facility], [address], [place], [id number] , [place] tel: [phone] [facility] med refill (chief complaint)Me curt loss (chief complaint) Type 2 diabetes mellitus with other circulatory complicationsBod y mass index [BMI] 35.0-35.9, adultAnxiety disorder, unspecifiedUrina ry frequencyMemory problem 1 [facility]. [address] [place] [address], [id number], [place]. tel:[phone] OFFICE/OUTPA TIENT VISIT, [facility], [address] [place] [address], [id number] , [place] tel: [phone] [facility] med Refills (chief complaint)fa tigue (chief complaint) Body mass index [BMI] 35.0-35.9, adultAnemia, unspecified typeEssential (primary) hypertensionIron deficiency anemia due to chronic blood loss 0 1 [facility] DO [facility]. [address] [place] [address], [id number], [place]. tel:[phone] OFFICE/OUTPA TIENT VISIT, [facility], [address] [place] [address], [id number] , [place] tel: [phone] [facility] med refill (chief complaint)Co ugh (chief complaint) Chronic obstructive pulmonary disease, unspecifiedAnxie ty disorder, unspecifiedOther cervical disc degeneration, unspecified cervical region [address] [facility] DO Max[facility] [address] [place] [address], [id number], [place]. tel:[phone] OFFICE/OUTPA TIENT VISIT, [facility], [address] [place] [address], [id number] , [place] tel: [phone] [facility] A1C (chief complaint)di abetes (chief complaint) Type 2 diabetes mellitus with other circulatory complicationsAnx iety disorder, unspecifiedLumba r back pain 0 1 [facility] DO Max. [address] [place] [address], [id number], [place]. tel:[phone] OFFICE/OUTPA TIENT VISIT, [facility], [address] [place] [address], [id number] , [place] tel: [phone] [facility] Med Refills (chief complaint)GE RD (chief complaint) Body mass index [BMI] 34.0-34.9, adultChronic pulmonary embolismGastroin testinal hemorrhage associated with gastric ulcerType 2 diabetes mellitus with hyperglycemiaOth er cervical disc degeneration, unspecified cervical region 1 [facility] DO Max. [address] [place] [address], [id number], [place]. tel:[phone] OFFICE/OUTPA TIENT VISIT, [facility], [address], [place], [id number] , [place] tel: [phone] [facility] med refill (chief complaint) Carpal tunnel syndrome of right wristAnxiety disorder, unspecifiedCervi calgia 3 0-202 0 [facility] DO [facility]. [address], [place], [id number], [place]. tel:[phone] OFFICE/OUTPA TIENT VISIT, [facility], [address], [place], [id number] , [place] tel: [phone] [facility] Med Refills (chief complaint)ba ck pain (chief complaint) Body mass index [BMI] 32.0-32.9, adultOther cervical disc degeneration, unspecified cervical regionAnxiety disorder, unspecifiedCOPD w/ acute exacerbation 2- 0 [facility] DO Max. [address] [place] [address], [id number], [place]. tel:[phone] OFFICE/OUTPA TIENT VISIT, [facility], [address] [place] [address], [id number] , [place] tel: [phone] [facility] A1C & Med Refills (chief complaint)di abetes (chief complaint) Body mass index [BMI] 32.0-32.9, adultType 2 diabetes mellitus without complicationsAnx iety disorder, unspecifiedOther cervical disc degeneration, unspecified cervical region 4 0 [facility] DO Max. [address] [place] [address], [id number], [place]. tel:[phone] OFFICE/OUTPA TIENT VISIT, [facility], [address] [place] [address], [id number] , [place] tel: [phone] [facility] Med Refills (chief complaint) Body mass index [BMI] 32.0-32.9, adultAnxiety disorder, unspecifiedFolli culitisCervicalg ia Aug- 7-202 0 [facility] DO Max. [address] [place] [address], [id number], [place]. tel:[phone] OFFICE/OUTPA TIENT VISIT, [facility], [address] [place] [address], [id number] , [place] tel: [phone] [facility] f/u hospital (chief complaint)fa tigue (chief complaint) Gastrointestinal hemorrhage associated with gastric ulcerIron deficiency anemia due to chronic blood lossAnxiety disorder, unspecified Jul- [address] [facility] DO Max. [address] [place] [address], [id number], [place]. tel:[phone] OFFICE/OUTPA TIENT VISIT, [facility], [address] [place] [address], [id number] , [place] tel: [phone] [facility] A1C & MED REFILLS (chief complaint)Di zziness (chief complaint)di abetes (chief complaint) Body mass index (BMI) 32.0-32.9, adultType 2 diabetes mellitus without complicationsDiz ziness of unknown cause 0 [facility]. [address] [place] [address], [id number], [place]. tel:[phone] OFFICE/OUTPA TIENT VISIT, [facility], [address] [place] [address], [id number] , [place] tel: [phone] [facility] Med Refills (chief complaint)GE RD (chief complaint) Anxiety disorder, unspecifiedDizzi ness of unknown causeGERD w/o esophagitis [address] [facility] DO Max. [address] [place] [address], [id number], [place]. tel:[phone] OFFICE/OUTPA TIENT VISIT, [facility], [address] [place] [address], [id number] , [place] tel: [phone] [facility] med refills (chief complaint)ba ck pain (chief complaint) Body mass index (BMI) 32.0-32.9, adultLumbar back painType 2 diabetes mellitus without complicationsDiz ziness of unknown causeAnxiety disorder, unspecified 0 [facility] DO [facility]. [address], [place], [id number], [place]. tel:[phone] OFFICE/OUTPA TIENT VISIT, [facility], [address], [place], [id number] , [place] tel: [phone] [facility] A1C & Med refills (chief complaint)An xiety (chief complaint) Body mass index (BMI) 32.0-32.9, adultType 2 diabetes mellitus without complicationsAnx iety disorder, unspecifiedOther cervical disc degeneration, unspecified cervical regionFolliculit isEssential (primary) hypertension 0 [facility] DO [facility]. [address], [place], [id number], [place]. [phone] OFFICE/OUTPA TIENT VISIT, [facility], [address] [place] [address], [id number] , [place] tel: [phone] [facility] Anxiety (chief complaint) Anxiety disorder, unspecified 0 [facility] DO [facility]. [address], [place], [id number], [place]. tel:[phone] OFFICE/OUTPA TIENT VISIT, [facility], [address], [place], [id number] , [place] tel: [phone] [facility] f/u med refills (chief complaint)UD S (chief complaint)Sh ortness of breath (chief complaint) [employer] customer service (current) use of opiate analgesicBody mass index (BMI) 32.0-32.9, adultChronic obstructive pulmonary disease, unspecifiedDizzi ness of unknown cause 0 [facility] DO Max. [address], [place], [id number], [place]. tel:[phone] OFFICE/OUTPA TIENT VISIT, [facility], [address], [place], [id number] , [place] tel: [phone] [facility] finger infection (chief complaint)Ra sh (chief complaint) Body mass index (BMI) 32.0-32.9, adultHerpetic whitlowEssential (primary) hypertensionAnxi ety disorder, unspecifiedDizzi ness of unknown cause 0 [facility] DO Max. [address], [place], [id number], [place]. tel:[phone] OFFICE/OUTPA TIENT VISIT, [facility], [address], [place], [id number] , [place] tel: [phone] [facility] Med Refills & A1C (chief complaint)Ra sh (chief complaint) Type 2 diabetes mellitus without complicationsAnx iety disorder, unspecifiedChron ic obstructive pulmonary disease, unspecified 0 [facility] DO Max. [address] [place] [address], [id number], [place]. tel:[phone] [facility], [address] [place] [address], [id number] , [place] tel: [phone] [facility] RANDOM UDS/PILL COUNT (chief complaint) No Information 9 [facility] DO Max. [address] [place] [address], [id number], [place]. tel:[phone] OFFICE/OUTPA TIENT VISIT, [facility], [address] [place] [address], [id number] , [place] tel: [phone] [facility] Med refills (chief complaint)DR WHITLEY DANG (chief complaint) Body mass index (BMI) 32.0-32.9, adultAnxiety disorder, unspecifiedKidne y painDizziness of unknown cause 9 [facility] DO Max. [address] [place] [address], [id number], [place]. tel:[phone] OFFICE/OUTPA TIENT VISIT, [facility], [address] [place] [address], [id number] , [place] tel:[phone] [facility] 4 WEEK F/U (chief complaint)Di zziness (chief complaint) Body mass index (BMI) 31.0-31.9, adultDizziness of unknown causeLumbar back painType 2 diabetes mellitus with hyperglycemia 9 [facility]. [address] [place] [address], [id number], [place]. tel:[phone] OFFICE/OUTPA TIENT VISIT, [facility], [address] [place] [address], [id number] , [place] tel: [phone] [facility] Med refills & A1C (chief complaint)Di zziness (chief complaint) Body mass index (BMI) 31.0-31.9, adultDizziness of unknown causeAnxiety disorder, unspecifiedType 2 diabetes mellitus with hyperglycemia [address], [id number], [place]. tel:[phone] OFFICE/OUTPA TIENT VISIT, [facility], [address] [place] [address], [id number] , [place] tel: [phone] [facility] 6 WK F/U (chief complaint)DR IGNACIO SCREEN (chief complaint) Pain in leg, unspecifiedBody mass index (BMI) 31.0-31.9, adultAnxiety disorder, unspecifiedChron ic pulmonary embolism [address], [id number], [place]. tel:[phone] OFFICE/OUTPA TIENT VISIT, [facility], [address] [place] [address], [id number] , [place] tel: [phone] [facility] follow up (chief complaint)hy pertension (chief complaint)dr ignacio screen (chief complaint) Body mass index (BMI) 31.0-31.9, adultEncntr for general adult medical exam w/o abnormal findingsEssentia l (primary) hypertensionType 2 diabetes mellitus without complicationsAnx iety disorder, unspecified 9 [facility]. [address] [place] [address], [id number], [place]. tel:[phone] OFFICE/OUTPA TIENT VISIT, [facility], [address], [place], [id number] , [place] tel: [phone] [facility] F/U HOSPITAL ADMITION (chief complaint)DR WHITLEY DANG (chief complaint) Body mass index (BMI) 31.0-31.9, adultAnxiety disorder, unspecifiedGERD w/o esophagitisHerpe tic shashi 9 [facility]. [address] [place] [address], [id number], [place]. tel:[phone] OFFICE/OUTPA TIENT VISIT, [facility], [address], [place], [id number] , [place] tel: [phone] [facility] med refill (chief complaint) Body mass index (BMI) 31.0-31.9, adultAnxiety disorder, unspecifiedType 2 diabetes mellitus without complications 9 [facility]. [address] [place] [address], [id number], [place]. tel:[phone] [facility], [address] [place] [address], [id number] , [place] tel: [phone] [facility] med refills (chief complaint) Body mass index (BMI) 31.0-31.9, adultCellulitis and abscess of finger, unspecifiedCutan eous abscess of unspecified handBipolar disorder 9 [facility]. [address], [place], [id number], [place]. tel:[phone] [facility], [address] [place] [address], [id number] , [place] tel: [phone] [facility] Abnormal Mammogram 9 [facility] Beat[facility]. [address] [place] [address], [id number], [place]. tel:[phone] [facility], [address] [place] [address], [id number] , [place] tel: [phone] [facility] Medication refills (chief complaint)A1 C (chief complaint) Body mass index (BMI) 31.0-31.9, adultType 2 diabetes mellitus without complicationsLum bark grinder pain Jan- 9 [facility]. [address], [place], [id number], [place]. tel:[phone] [facility], [address] [place] [address], [id number] , [place] tel: [phone] [facility] Abnormal Mammogram Jan- 9 [facility]. [address] [place] [address], [id number], [place]. tel:[phone] OFFICE/OUTPA TIENT VISIT, EST [facility], [address] [place] [address], [id number] , [place] tel: [phone] [facility] sickness (chief complaint) Body mass index (BMI) 31.0-31.9, adultAcute non-recurrent maxillary sinusitisCOPD w/ acute exacerbationAnxi ety disorder, unspecifiedOther cervical disc degeneration, unspecified cervical region Dec- 9 [facility]. [address], [place], [id number], [place]. tel:[phone] [facility], [address] [place] [address], [id number] , [place] tel: [phone] [facility] Abnormal MammogramUnspeci fied urinary incontinence 9 [facility]. [address] [place] [address], [id number], [place]. 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 [address], [place], [id number], [place]. tel:[phone] [facility], [address], [place], [id number] , [place] tel: [phone] [facility] f/u abdominal pain (chief complaint) Body mass index (BMI) 32.0-32.9, adultHx pulmonary embolismHernia of abdominal wallAnxiety disorder, unspecified 9 [facility] DO Max. [address], [place], [id number], [place]. tel:[phone] [facility], [address] [place] [address], [id number] , [place] tel: [phone] [facility] abdomen issues (chief complaint) Right lower quadrant abdominal painEncounter for screening for Ca of colon 9 Kamaljit Wilcox. [address] [place] [address], [id number], [place]. tel:[phone] OFFICE/OUTPA TIENT VISIT, EST [facility], [address], [place], [id number] , [place] tel: [phone] [facility] rib pain when breathing (chief complaint) Body mass index (BMI) 31.0-31.9, adultRib pain on right sideLumbar back painRight hip pain 9 Kamaljit Wilcox. [address] [place] [address], [id number], [place]. tel:[phone] [facility], [address] [place] [address], [id number] , [place] tel:[phone] [facility] med refill (chief complaint) Right hip painLumbar back painAnxiety disorder, unspecified 9 Kamaljit Wilcox. [address] [place] [address], [id number], [place]. tel:[phone] OFFICE/OUTPA TIENT VISIT, [facility], [address] [place] [address], [id number] , [place] tel: [phone] [facility] bladder infection (chief complaint) Oliguria 8 Shahzad Cobb. [address] [place] [address], [id number], [place]. tel:[phone] OFFICE/OUTPA TIENT VISIT, [facility], [address] [place] [address], [id number] , [place] tel: [phone] [facility] Medication refill (chief complaint) Anxiety disorder, unspecifiedBipol ar disorderVertigo 8 Shahzad Cobb. [address] [place] [address], [id number], [place]. tel:[phone] [facility], [address] [place] [address], [id number] , [place] tel: [phone] [facility] medication refill (chief complaint)br onchitis (chief complaint)De nnison: (chief complaint) Chronic obstructive pulmonary disease, unspecifiedCough Type 2 diabetes mellitus without complicationsEss ential (primary) hypertension 8 Margarito Horne. [address] [place] [address], [id number], [place]. tel:[phone] [facility], [address] [place] [address], [id number] , [place] tel: [phone] [facility] sick (chief complaint)me d refill (chief complaint)dE NNISON: (chief complaint) CoughChronic obstructive pulmonary disease, unspecifiedType 2 diabetes mellitus without complicationsEss ential (primary) hypertension 8 Margarito Horne. [address] [place] [address], [id number], [place]. tel:[phone] [facility], [address] [place] [address], [id number] , [place] tel: [phone] [facility] med refill (chief complaint)De nnison: (chief complaint) Focal (segmental) acute (reversible) ischemia of small intestineAnxiety disorder, unspecifiedBipol ar disorderChronic obstructive pulmonary disease, unspecifiedType 2 diabetes mellitus without complicationsNic otine dependence, unspecified, uncomplicatedEss ential (primary) hypertension 8 Margarito Horne. [address] [place] [address], [id number], . tel:[phone] [facility], [address] [place] [address], [id number] , [place] tel: [phone] [facility] med refills (chief complaint)Le ft thight (chief complaint) Meralgia paresthetica, left lower limbAnxiety disorder, unspecifiedBipol ar disorder 7 Shahzad Cobb. [address] [place] [address], [id number], . tel:[phone] OFFICE/OUTPA TIENT VISIT, [facility], [address] [place] [address], [id number] , [place] tel: [phone] [facility] R thigh pain (chief complaint)di scuss medication (chief complaint) Anxiety disorder, unspecifiedBipol ar disorderMeralgia paresthetica, left lower limb 7 Shahzad Cobb. [address] [place] [address], [id number], [place]. tel:[phone] [facility], [address] [place] [address], [id number] , [place] tel: [phone] [facility] HgbA1C (chief complaint)me dication refill (chief complaint) Anxiety disorder, unspecifiedBipol ar disorderCervical giaOther cervical disc degeneration, unspecified cervical regionSpinal stenosis, cervical regionPain in left shoulderType 2 diabetes mellitus with hyperglycemiaGER D w/o esophagitis 7 Shahzad Cobb. [address] [place] [address], [id number], [place]. tel:[phone] OFFICE/OUTPA TIENT VISIT, [facility], [address], [place], [id number] , [place] tel: [phone] [facility] follow up (chief complaint) Chronic pulmonary embolismCervical giaOther cervical disc degeneration, unspecified cervical regionSpinal stenosis, cervical region 7 Shahzad Cobb. [address] [place] [address], [id number], [place]. tel:[phone] OFFICE/OUTPA TIENT VISIT, [facility], [address], [place], [id number] , [place] tel: [phone] [facility] L arm/shoulder pain (chief complaint) CervicalgiaOther cervical disc degeneration, unspecified cervical regionSpinal stenosis, cervical region 6 Shahzad Cobb. [address] [place] [address], [id number], [place]. tel:[phone] OFFICE/OUTPA TIENT VISIT, [facility], [address], [place], [id number] , [place] tel: [phone] [facility] severe leg pain (chief complaint) Restless leg syndromePain in leg, unspecifiedType 2 diabetes mellitus with hyperglycemiaSpi nal stenosis, cervical region 6 Shahzad Cobb. [address] [place] [address], [id number], [place]. tel:[phone] OFFICE/OUTPA TIENT VISIT, [facility], [address], [place], [id number] , [place] tel: [phone] [facility] knee pain (chief complaint) Pain in kneeRestless leg syndrome 6 Shahzad Cobb. [address] [place] [address], [id number], [place]. tel:[phone] [facility], [address] [place] [address], [id number] , [place] tel: [phone] [facility] spasms on right side (chief complaint) Muscle spasm of backCervicalgiaO ther cervical disc degeneration, unspecified cervical regionSpinal stenosis, cervical region 6 Shahzad Cobb. [address] [place] [address], [id number], [place]. tel:[phone] OFFICE/OUTPA TIENT VISIT, [facility], [address], [place], [id number] , [place] tel: [phone] [facility] med refill (chief complaint) Type 2 diabetes mellitus with hyperglycemiaCer vicalgiaOther cervical disc degeneration, unspecified cervical regionSpinal stenosis, cervical region 6 Shahzad Cobb. [address] [place] [address], [id number], [place]. tel:[phone] [facility], [address] [place] [address], [id number] , [place] tel: [phone] [facility] Vertigo 6 Shahzad Cobb. [address] [place] [address], [id number], [place]. tel:[phone] OFFICE/OUTPA TIENT VISIT, [facility], [address] [place] [address], [id number] , [place] tel: [phone] [facility] medication refill (chief complaint)kn ee pain (chief complaint) Bipolar disorder 6 Shahzad Cobb. [address] [place] [address], [id number], [place]. tel:[phone] OFFICE/OUTPA TIENT VISIT, [facility], [address] [place] [address], [id number] , [place] tel: [phone] [facility] medication refill (chief complaint)re stless leg syndrome (chief complaint) Restless leg syndromeCervical giaOther cervical disc degeneration, unspecified cervical regionSpinal stenosis, cervical region 6 Shahzad Cobb. [address] [place] [address], [id number], [place]. tel: [phone] OFFICE/OUTPA TIENT VISIT, [facility], [address], [place], [id number] , [place] tel: [phone] [facility] medication refills (chief complaint) Bipolar disorderAnxiety disorder, unspecified 0 6 Shazhad Cobb. [address], [place], [id number], [place]. [phone] OFFICE/OUTPA TIENT VISIT, [facility], [address] [place], [place], [id number] , [place] tel: [phone] [facility] medication refill (chief complaint) CervicalgiaOther cervical disc degeneration, unspecified cervical regionSpinal stenosis, cervical regionVertigo 6 Shahzad Cobb. [address] [place] [address], [id number], [place]. tel:[phone] OFFICE/OUTPA TIENT VISIT, [facility], [address], [place], [id number] , [place] tel: [phone] [facility] cough (chief complaint)me d refill (chief complaint) Type 2 diabetes mellitus with hyperglycemiaCOP D w/ acute exacerbationCerv icalgiaOther cervical disc degeneration, unspecified cervical regionSpinal stenosis, cervical region 6 Shahzad Cobb. [address] [place] [address], [id number], [place]. tel:[phone] OFFICE/OUTPA TIENT VISIT, [facility], [address], [place], [id number] , [place] tel: [phone] [facility] pain (chief complaint) CervicalgiaPain in left shoulder 5 Shahzad Cobb. [address] [place] [address], [id number], [place]. tel:[phone] OFFICE/OUTPA TIENT VISIT, [facility], [address] [place] [address], [id number] , [place] tel:[phone] [facility] cold (chief complaint) COPD w/ acute exacerbationCerv icalgiaOther cervical disc degeneration, unspecified cervical region Aug- 5 Shahzad Cobb. [address] [place] [address], [id number], [place]. tel:[phone] OFFICE/OUTPA TIENT VISIT, [facility], [address] [place] [address], [id number] , [place] tel: [phone] [facility] med refill (chief complaint) CervicalgiaDegen eration of cervical intervertebral discSpinal stenosis in cervical regionColostomy status 5 Shahzad Cobb. [address] [place] [address], [id number], [place]. tel:[phone] OFFICE/OUTPA TIENT VISIT, [facility], [address] [place] [address], [id number] , [place] tel: [phone] [facility] Medcation refills (chief complaint)St aple removal (chief complaint) AnxietyColostomy status 5 Shahzad Cobb. [address] [place] [address], [id number], [place]. [phone] OFFICE/OUTPA TIENT VISIT, [facility], [address] [place] [address], [id number] , [place] tel: [phone] [facility] med refill (chief complaint) Acute mesenteric ischemiaColostom y statusTrigger finger Apr- 5 Shahzad Cobb. [address] [place] [address], [id number], [place]. tel:[phone] OFFICE/OUTPA TIENT VISIT, [facility], [address] [place] [address], [id number] , [place] tel:[phone] [facility] Med refill (chief complaint) Abdomen painAttention to colostomyColosto my status 5 Shahzad Cobb. [address], [place], [id number], [place]. tel:[phone] OFFICE/OUTPA TIENT VISIT, [facility], [address], [place], [id number] , [place] tel: [phone] [facility] medication refill (chief complaint) Spinal stenosis in cervical regionColostomy status 5 Shahzad Cobb. [address], [place], [id number], [place]. tel:[phone] OFFICE/OUTPA TIENT VISIT, [facility], [address], [place], [id number] , [place] tel: [phone] [facility] med refill (chief complaint) Colostomy statusAbdomen painAcute bronchitis 5 Nanda Wilcox. [address] [place] [address], [id number], [place]. tel:[phone] OFFICE/OUTPA TIENT VISIT, [facility], [address], [place], [id number] , [place] tel: [phone] [facility] dyspnea (chief complaint) COPDColostomy statusTobacco abuse 5 Shahzad Cobb. [address], [place], [id number], [place]. tel:[phone] OFFICE/OUTPA TIENT VISIT, [facility], [address], [place], [id number] , [place] tel: [phone] [facility] med f/u (chief complaint) Spinal stenosis in cervical regionCervicalgi a 5 Shahzad Cobb. [address], [place], [id number], [place]. tel:[phone] [facility], [address] [place] [address], [id number] , [place] tel: [phone] [facility] referral (chief complaint) Colostomy statusAttention to colostomy 4 Erpenbeck RET[employer]CHING [employer]PER[employer] Jeri. [address], [place], [id number], [place]. [phone] OFFICE/OUTPA TIENT VISIT, [facility], [address], [place], [id number] , [place] tel: [phone] [facility] ER (chief complaint) OtherColostomy statusAnxietyDia betes Mellitus Type 2, UncomplicatedOth er and unspecified coagulation defects 4 [employer] RET[employer]CHING OPER[employer] Jeri. [address] [place], [place], [id number], [place]. tel:[phone] OFFICE/OUTPA TIENT VISIT, [facility], [address], [place], [id number] , [place] tel: [phone] [facility] BP check (chief complaint) CervicalgiaSpina l stenosis in cervical regionDisplaceme nt of cervical intervertebral disc without myelopathy 4 Er[employer] RETOUCHING OPERATOR Jeri. [address], [place], [id number], [place]. [phone] OFFICE/OUTPA TIENT VISIT, [facility], [address], [place], [id number] , [place] tel: [phone] [facility] review labs and MRI (chief complaint) Degeneration of cervical intervertebral discDiabetes Mellitus Type 2, UncomplicatedUns pecified essential hypertensionUrin maryellen incontinence, unspecifiedMixed HyperlipidemiaOv erweight 4 Hemmer Libby. [address], [place], [id number], [place]. [facility], [address], [place], [id number] , [place] tel: [phone] [facility] No Information 4 Hemmer Libby. [address], [place], [id number], [place]. [facility], [address], [place], [id number] , [place] tel: [phone] [facility] Potential Drug Interaction (chief complaint) Therapeutic Drug Monitoring 4 Hemkirill Souza. [address], [place], [id number], [place]. OFFICE/OUTPA TIENT VISIT, [facility], [address], [place], [id number] , [place] tel: [phone] [facility] neck pain (chief complaint)ea r discomfort (chief complaint) Degeneration of cervical intervertebral discGERDDiabetes Mellitus Type 2, UncomplicatedUri nary incontinence, unspecifiedUnspe cified essential hypertensionMixe d HyperlipidemiaBe nign neoplasm of thyroid glands 4 Hemkirill Souza. [address], [place], [id number], [place]. [facility], [address] [place] [address], [id number] , [place] tel: [phone] [facility] Dental examination 4 Merrick DMD January. [address], [place], [id number], [place]. tel:[phone] [facility], [address], [place], [id number] , [place] tel: [phone] Dental Clinic Dental examination 4 [place] DMD January. [address], [place], [id number], [place]. tel:[phone] [facility], [address], [place], [id number] , [place] tel: [phone] Dental Clinic Dental examination 0 4 [place] DMD January. [address], [place], [id number], [place]. tel:[phone] [facility], [address], [place], [id number] , [place] tel:[phone] [facility] No Information Jul-2 0 Lamp Mayte. [address], [place], [id number], [place]. tel:[phone] [facility], [address] [place] [address], [id number] , tel: [phone] [facility] No Information Sep-2 8-201 0 Visci DO Boone. [address] [place] [address], [id number], . tel:[phone] [facility], [address] [place] [address], [id number] , tel: [phone] [facility] No Information Dec-0 1-200 8 No Information [facility], [address] [place] [address], [id number] , tel: [phone] Flu No Information Dec-0 1-200 8 Visci DO Boone. [address] [place] [address], [id number], . tel:[phone] Family History Family Member Type Diagnosis Age [...] hypertension Payers Payer name Insurance type Covered constitution party ID Fredy ferrer(s) Ale Medicare Advantage SERGO [id number] [facility] [id number] Social History Type Description Quantity Date Captured Comments Alcohol Use Details Unknown Caffeine Use Details Unknown Tobacco Use Status Smoking Status No Information Sex Female Sexual Orientation Straight or heterosexual Gender Identity Female Chief Complaint And Reason For Visit No Information Reason For Referral Reason For Referral No Information Plan Of Treatment Date Type Action Status Goal H&P. Due on due Goal Mammogram. Due on due Goal Depression scree nancy. Due on due Goal Zoster vaccine ( ). Due on due Goal REGIONAL DEDICATED TRUCK DRIVER exam. Due on due Goal Colonoscopy. Due on 025 due Goal Pneumococcal vac cine. Due on due Goal Hemoglobin A1C. Due on due Goal Influenza Vaccine. Due on due Goal Dental exam. Due on due Goal Hep A. Due on du e Goal Foot exam. Due on due Goal Urine microalbumin. Due on due Goal Breast exam. Due on 023 due Goal Hep A. Due on du e Goal Dilated eye exam. Due on May due Goal Tdap. Due on due Goal Urinalysis due Goal ECG. Due on due Goal PRAPARE ASSESSMENT. Due on due Goal Tdap Vaccine. Due on 2022 due Goal Mammogram. Due on due Goal Hemoglobin A1C. Due on due Goal Dental exam. Due on 021 due Goal Foot exam. Due on due Goal [employer]AL DEDICATED TRUCK DRIVER exam. Due on due Goal Pneumococcal vac cine. Due on due Goal Tdap. Due on due Goal Colonoscopy. Due on 025 due Goal Zoster vaccine ( ). Due [...] due Goal H&P. Due on due Goal Hemoglobin A1C. Due on due Goal Depression scree nancy. Due on due Goal Zoster vaccine ( ). Due on due Goal ECG. Due on due Goal [employer]ICATED TRUCK DRIVER exam. Due on due Goal Tdap. Due [...] Goal Diabetes screening. Due on due Goal [employer] DEDICATED TRUCK DRIVER exam. Due on due Goal Influenza Vaccine. [...] Goal Colonoscopy. Due on 025 due Goal Zoster vaccine ( ). Due on due Goal Breast exam. Due on due Goal Foot exam. Due on due Goal Dilated eye exam. Due on Jul due Goal H&P. Due on due Goal Influenza Vaccine. Due on due Goal Tdap. Due on due Goal Hemoglobin A1C. Due on due Goal Mammogram. Due on due Goal REG[employer] DEDICATED TRUCK DRIVER exam. Due on due Goal Depression scree [...] Goal Diabetes screening. Due on due Goal [employer] DEDICATED TRUCK DRIVER exam. Due on due Goal Breast exam. [...] due Goal Colonoscopy. Due on due Goal REG[employer]AL DEDICATED TRUCK DRIVER exam. Due on due Goal Depression scree [...] Goal Urine microalbumin. Due on due Goal REG[employer]AL DEDICATED TRUCK DRIVER exam. Due on due Goal Breast exam. [...] Goal Dental exam. Due on due Goal REGIONAL DEDICATED TRUCK DRIVER exam. Due on due Goal Pneumococcal vac [...] Goal Dental exam. Due on due Goal REG[employer]AL DEDICATED TRUCK DRIVER exam. Due on due Goal Dilated eye exam. Due on March due Goal H&P. Due on due Goal Tdap. Due on due Goal Influenza Vaccine. Due on due Goal Mammogram. Due on due Goal Zoster vaccine ( [...] Goal Dental exam. Due on due Goal REGIONAL DEDICATED TRUCK DRIVER exam. Due on due Goal Urine microalbumin. Due on A due Goal H&P. Due on due Goal ECG. Due on due Goal Tdap. Due on due Goal Pneumococcal vac cine. Due on due Goal Hemoglobin A1C. Due on due Goal Breast exam. Due on due Goal Influenza Vaccine. Due on Ap due Goal Zoster vaccine ( ). Due on due Goal Depression scree nancy. Due on due Goal Mammogram. Due on due Goal Dilated eye exam. Due on Jan due Goal Colonoscopy. Due on due Goal Foot exam. Due on due Goal Diabetes screening. Due on due Goal Dilated eye [...] due Goal Mammogram. Due on due Goal [employer] D[employer]ICATED TRUCK DRIVER exam. Due on due Goal Foot exam. Due on due Goal Zoster vaccine ( ). Due on due Goal Pneumococcal vac cine. Due on due Goal Tdap. Due on due Goal Influenza Vaccine. Due on Nh due Goal Tobacco cessation counseling completed Goal Colonoscopy. Due on due Goal Hemoglobin A1C. Due on due Goal Dental exam. Due on due Goal Urine microalbumin. Due on due Goal Pneumococcal vac cine. Due on due Goal Foot exam. Due on due Goal Dilated eye exam. Due on Nov due Goal Tdap. Due on due Goal Depression scree nancy. Due on due Goal Breast exam. Due on due Goal Diabetes screening. Due on due Goal ECG. Due on due Goal H&P. Due on due Goal Mammogram. Due on due Goal Influenza Vaccine. Due on due Goal [employer] D[employer]ICATED TRUCK DRIVER exam. Due on due Goal Zoster vaccine [...] Goal Mammogram. Due on 0 due Goal [employer] D[employer]ICATED TRUCK DRIVER exam. Due on due Goal H&P. Due [...] exam. Due on Oct due Goal Pneumococcal vac cine. Due on due Goal [employer] DEDICATED TRUCK DRIVER exam. Due on due Goal Foot exam. [...] nt education, guidance, and counseling completed Goal [employer]ICATED TRUCK DRIVER exam. Due on due Goal Pneumococcal vac cine. Due on due Goal Foot exam. Due on 0 due Goal Hemoglobin A1C. Due on due Goal Dilated eye exam. Due on Sep due Goal Dental exam. Due on due Goal Urine microalbumin. Due on due Goal Breast exam. Due on due Goal Zoster vaccine ( 1st). Due on due Goal Depression scree nancy. [...] Influenza Vaccine. Due on Oc due Goal [employer]ICATED TRUCK DRIVER exam. Due on due Goal Depression scree nancy. Due on due Goal Tobacco cessation counseling completed Goal Dietary manageme nt education, guidance, and counseling completed Goal Hemoglobin A1C. Due on due Goal Colonoscopy. Due on 025 due Goal Urine microalbumin. Due on S due Goal H&P. Due on due Goal Pneumococcal vac cine. Due on due Goal Dilated eye exam. Due on Jul due Goal Foot exam. Due on 0 due Goal [employer]ICATED TRUCK DRIVER exam. Due on due Goal Tdap. Due [...] Goal Dental exam. Due on due Goal REG[employer] DEDICATED TRUCK DRIVER exam. Due on due Goal Urine microalbumin. Due on A due Goal Pneumococcal vac [...] Foot exam. Due on 0 due Goal [employer]ICATED TRUCK DRIVER exam. Due on due Goal Pneumococcal vac cine. Due on due Goal Diabetes screening. Due on due Goal ECG. Due on due Goal H&P. Due on due Goal Depression scree nancy. [...] Goal Mammogram. Due on 0 due Goal Tobacco cessation counseling completed Goal Urine microalbumin. Due on due Goal Depression scree nancy. Due on due Goal Pneumococcal vac cine. Due on due Goal [employer] D[employer]ICATED TRUCK DRIVER exam. Due on due Goal Dilated eye [...] vaccine ( ). Due on due Goal [employer] D[employer]ICATED TRUCK DRIVER exam. Due on due Goal Tdap. Due on due Goal Hemoglobin A1C. Due on due Goal Tobacco cessation counseling completed Goal Dietary manageme nt education, guidance, and counseling completed Goal Colonoscopy. Due on 025 due Goal Pneumococcal vac cine. Due on due Goal Influenza Vaccine. Due on due Goal Dilated eye exam. Due on March due Goal Depression scree nancy. Due on due Goal Dental exam. Due on due Goal [employer]ICATED TRUCK DRIVER exam. Due on due Goal Hemoglobin A1C. [...] due Goal ECG. Due on due Goal [employer] D[employer]ICATED TRUCK DRIVER exam. Due on due Goal Breast exam. Due on due Goal Influenza Vaccine. Due on due Goal Mammogram. Due on 0 due Goal Depression scree nancy. Due on due Goal H&P. Due on due Goal Tobacco cessation counseling completed Goal Dietary manageme nt education, guidance, and counseling completed Goal Colonoscopy. Due on due Goal Dilated eye exam. Due on Nov due Goal Mammogram. Due on 0 due Goal Dental exam. Due on due Goal Urine microalbumin. Due on due Goal Foot exam. Due on 0 due Goal Tdap. Due on due Goal Breast exam. Due on due Goal Depression scree nancy. Due on due Goal Influenza Vaccine. Due on due Goal Pneumococcal vac cine. Due on due Goal [employer] DEDICATED TRUCK DRIVER exam. Due on due Goal ECG. Due [...] Goal Breast exam. Due on due Goal [employer] DEDICATED TRUCK DRIVER exam. Due on due Goal Depression scree nancy. Due on due Goal Tdap. Due on due Goal Mammogram. Due on 0 due Goal H&P. Due on due Goal Influenza Vaccine. Due on due Goal ECG. Due on due Goal Tobacco cessation counseling completed Goal Breast exam. Due on due Goal Tdap. Due on due Goal H&P. Due on due Goal [employer]ICATED TRUCK DRIVER exam. Due on due Goal Foot exam. Due on 0 due Goal Pneumococcal vac cine. Due on due Goal Mammogram. Due on 9 due Goal Dental exam. Due on due Goal Depression scree nancy. Due on due Goal ECG. Due on due Goal Urine microalbumin. Due on D due Goal Influenza Vaccine. Due on due Goal Dilated eye exam. Due on Oct due Goal Colonoscopy. Due on due Goal [...] due Goal ECG. Due on due Goal [employer]ICATED TRUCK DRIVER exam. Due on due Goal Breast exam. Due on due Goal Tdap. Due on due Goal Colonoscopy. Due on due Goal Diabetes screening. Due on A due Goal Tobacco cessation counseling completed Goal Dietary manageme nt education, guidance, and counseling completed Goal Urine microalbumin. Due on due Goal Tdap. Due on due Goal [employer]ICATED TRUCK DRIVER exam. Due on due Goal Depression scree nancy. Due on due Goal Foot exam. Due on 0 due Goal Pneumococcal vac cine. Due on due Goal Breast exam. Due on due Goal H&P. Due on due Goal Influenza Vaccine. Due on Oc due Goal Colonoscopy. Due on due Goal [...] due Goal H&P. Due on due Goal [employer]ICATED TRUCK DRIVER exam. Due on due Goal Diabetes screening. Due on A due Goal Tdap. Due on due Goal Dilated eye exam. Due on Aug due Goal Urine microalbumin. Due on O due Goal Colonoscopy. Due on due Goal [...] exam. Due on 0 due Goal Depression scree nancy. Due on due Goal Colonoscopy. Due on due Goal Diabetes screening. Due on A due Goal H&P. Due on due Goal Breast exam. Due on due Goal Mammogram. Due on 9 due Goal [employer]ICATED TRUCK DRIVER exam. Due on due Goal Tdap. Due [...] Pneumococcal vac cine. Due on due Goal [employer]AL DEDICATED TRUCK DRIVER exam. Due on due Goal Dilated eye [...] Depression scree nancy. Due on due Goal [employer] DEDICATED TRUCK DRIVER exam. Due on due Goal Influenza Vaccine. [...] Foot exam. Due on 9 due Goal [employer]ICATED TRUCK DRIVER exam. Due on due Goal Depression scree [...] on 9 due Goal Mammogram. Due on 9 due Goal ECG. Due on due Goal Breast exam. Due on due Goal Diabetes screening. Due on A due Goal [employer] D[employer]ICATED TRUCK DRIVER exam. Due on due Goal Colonoscopy. Due [...] due Goal Mammogram. Due on due Goal H&P. Due on due Goal [employer] DEDICATED TRUCK DRIVER exam. Due on due Goal Depression scree nancy. Due on due Goal Breast exam. Due on due Goal Depression scree nancy. Due on due Goal Colonoscopy. Due on due Goal REG[employer] DEDICATED TRUCK DRIVER exam. Due on due Goal Dental exam. Due on due Goal Dilated eye exam. Due on Jan due Goal H&P. Due on due Goal Foot exam. Due on due Goal Pneumococcal vac cine. Due on due Goal Urine microalbumin. Due on A due Goal Mammogram. Due on due Goal ECG. Due on due Goal Tdap. Due on due Goal Diabetes screening. Due on A due Goal Influenza Vaccine. Due on due Goal Tobacco cessation counseling completed Goal Dietary manageme nt education, guidance, and counseling completed Goal Tdap. Due on due Goal Foot exam. Due on 9 due Goal [employer] DEDICATED TRUCK DRIVER exam. Due on due Goal Mammogram. Due [...] Diabetes screening. Due on A due Goal [employer] DEDICATED TRUCK DRIVER exam. Due on due Goal Breast exam. [...] Goal Dental exam. Due on due Goal REG[employer] DEDICATED TRUCK DRIVER exam. Due on due Goal Depression scree nancy. Due on due Goal Colonoscopy. Due on 025 due Goal Breast exam. Due on due Goal ECG. Due on due Goal H&P. Due on due Goal Diabetes screening. Due on due Goal Pneumococcal vac cine. Due on due Goal Dental exam. Due on due Goal [employer] D[employer]ICATED TRUCK DRIVER exam. Due on due Goal ECG. Due [...] eye exam. Due on Dec due Goal Tobacco cessation counseling completed Goal Dietary manageme nt education, guidance, and counseling completed Goal Dilated eye exam. Due on Dec due Goal Urine microalbumin. Due on due Goal Foot exam. Due on 9 due Goal Pneumococcal vac cine. Due on due Goal Influenza Vaccine. Due on due Goal Colonoscopy. Due on due Goal Breast exam. Due on due Goal REGION[employer] DEDICATED TRUCK DRIVER exam. Due on due Goal Diabetes screening. [...] Depression scree nancy. Due on due Goal REGIONAL DEDICATED TRUCK DRIVER exam. Due on due Goal Dental exam. [...] Goal Influenza Vaccine. Due on due Goal REGIONAL DEDICATED TRUCK DRIVER exam. Due on due Goal Dental exam. [...] completed Goal Tdap. Due on due Goal Dilated [...] Breast exam. Due on 019 due Goal REG[employer] DEDICATED TRUCK DRIVER exam. Due on due Goal Urine microalbumin. Due on due Goal Dilated eye exam. Due on March due Goal Dental exam. Due on 018 due Goal Pneumococcal vac cine. Due on due Goal BMP fasting. Due on 014 due Goal H&P. Due on due Goal Tdap. Due on due Goal Mammogram. Due on due Goal Foot exam. Due on due Goal Breast exam. Due on due Goal FOBT. Due on due Goal ECG. Due on due Goal [employer] D[employer]ICATED TRUCK DRIVER exam. Due on due Goal Influenza Vaccine. Due on due Goal Dental exam. Due on due Goal Urine microalbumin. Due on A due Goal Foot exam. Due on due [...] Goal Mammogram. Due on 8 due Goal REG[employer] DEDICATED TRUCK DRIVER exam. Due on due Goal Breast exam. Due on 018 due Goal FOBT. Due on due Goal Urinalysis. Due on 14 due Goal REGION[employer] DEDICATED TRUCK DRIVER exam. Due on due Goal ECG. Due [...] Urinalysis. Due on 14 due Goal Pneumococcal vac cine. Due on due Goal BMP fasting. Due on due Goal Dilated eye exam. Due on Dec due Goal Tdap. Due on due Goal FOBT. Due on due Goal H&P. Due on due Goal Influenza Vaccine. Due on due Goal ECG. Due on due Goal REG[employer] DEDICATED TRUCK DRIVER exam. Due on due Goal Dental exam. Due on due Goal Mammogram. Due on due Goal Breast exam. Due on due Goal Foot exam. Due on due Goal Tobacco cessation counseling completed Goal Influenza Vaccine. Due on due Goal Foot exam. Due on 8 due Goal Pneumococcal vac cine. Due on due Goal Breast exam. Due on 018 due Goal Urinalysis. Due on 14 due Goal Urine microalbumin. Due on F due Goal Tdap. Due on due Goal Dental exam. Due on due Goal Colonoscopy. Due on due Goal ECG. Due on due Goal BMP fasting. Due on due Goal FOBT. Due on due Goal H&P. Due on due Goal REGIONAL DEDICATED TRUCK DRIVER exam. Due on due Goal Dilated eye exam. Due on Dec due Goal Mammogram. Due on 8 due Goal REGIONAL DEDICATED TRUCK DRIVER exam. Due on due Goal Dilated eye exam. Due on Aug due Goal Pneumococcal vac cine. Due on due Goal Foot exam. Due on 7 due Goal Urine microalbumin. Due on O due Goal H&P. Due on due Goal Dental exam. Due on due Goal Mammogram. Due on due Goal Breast exam. Due on 017 due Goal FOBT. Due on due Goal Colonoscopy. Due on due Goal BMP fasting. Due on 014 due Goal Tdap. Due on due Goal Urinalysis. Due on 14 due Goal Influenza Vaccine. Due on due Goal ECG. Due on due Goal REGIONAL DEDICATED TRUCK DRIVER exam. Due on due Goal Pneumococcal vac [...] Goal Mammogram. Due on 7 due Goal REGION[employer] DEDICATED TRUCK DRIVER exam. Due on due Goal BMP fasting. Due on due Goal Breast exam. Due on due Goal Dental exam. Due on due Goal H&P. Due on due Goal Tdap. Due on due Goal ECG. Due on due Goal Tobacco cessation counseling completed Goal TD Vaccine. Due on 17 due Goal H&P. Due on due Goal Tdap. Due on due Goal Influenza Vaccine. Due on due Goal Sigmoidoscopy. Due on due Goal FOBT. Due on due Goal Breast exam. Due on due Goal Colonoscopy. Due on due Goal [employer]ICATED TRUCK DRIVER exam. Due on due Goal Urinalysis. Due on 14 due Goal BMP fasting. Due on due Goal Pap/HPV testing. Due on due Goal Mammogram. Due on 7 due Goal Tobacco cessation counseling completed Goal BMP fasting. Due on due Goal H&P. Due on due Goal [employer] D[employer]ICATED TRUCK DRIVER exam. Due on due Goal Breast exam. [...] due Goal Tobacco cessation counseling completed Goal Urinalysis. Due on 14 due Goal BMP fasting. Due on due Goal Tdap. Due on due Goal H&P. Due on due Goal Mammogram. Due on 6 due Goal [employer]IVER exam. Due on due Goal Breast exam. Due on due Goal Colonoscopy. Due on due Goal Influenza Vaccine. Due on due Goal FOBT. Due on due Goal Colonoscopy. Due on due Goal FOBT. Due on due Goal Mammogram. Due on 6 due Goal BMP fasting. Due on due Goal TD Vaccine. Due on 16 due Goal Urinalysis. Due on 14 due Goal [employer]IVER exam. Due on due Goal H&P. Due [...] TD Vaccine. Due on 16 due Goal Sigmoidoscopy. Due on due Goal Influenza Vaccine. Due on due Goal BMP fasting. Due on due Goal [employer]IVER exam. Due on due Goal Mammogram. Due on 6 due Goal Urinalysis. Due on 14 due Goal Mammogram. Due on 6 due Goal FOBT. Due on due Goal Sigmoidoscopy. Due on due Goal Colonoscopy. Due on due Goal [employer]IVER exam. Due on due Goal Influenza Vaccine. [...] due Goal Sigmoidoscopy. Due on due Goal [employer]IVER exam. Due on due Goal TD Vaccine. Due on 16 due Goal Breast exam. Due on due Goal Urinalysis. Due on 14 due Goal FOBT. Due on due Goal Mammogram. Due on 6 due Goal Colonoscopy. Due on due Goal TD Vaccine. Due on 16 due Goal Lipid Panel. Due on 015 due Goal [employer] exam. Due on due Goal BMP fasting. Due on 014 due Goal Sigmoidoscopy. Due on due Goal Influenza Vaccine. Due on due Goal H&P. Due on due Goal Tdap. Due on due Goal Pap/HPV testing. Due on due Goal FOBT. Due on due Goal Lipid Panel. Due on 015 due Goal TD Vaccine. Due on 16 due Goal Colonoscopy. Due on due Goal Breast exam. Due on due Goal Urinalysis. Due on 14 due Goal Mammogram. Due on 6 due Goal [employer] exam. Due on due Goal H&P. Due on due Goal BMP fasting. Due on 014 due Goal Pap/HPV testing. Due on due Goal Sigmoidoscopy. Due on due Goal Influenza Vaccine. Due on due Goal Tdap. Due on due Goal Urinalysis. Due on 14 due Goal Colonoscopy. Due on 016 due Goal Sigmoidoscopy. Due on due Goal FOBT. Due on due Goal BMP fasting. Due on 014 due Goal H&P. Due on due Goal Breast exam. Due on 016 due Goal Pap/HPV testing. Due on due Goal Tdap. Due on due Goal Lipid Panel. Due on due Goal Mammogram. Due on 6 due Goal Influenza Vaccine. Due on due Goal [employer]IVER exam. Due on due Goal TD Vaccine. Due on 16 due Goal [employer] DRIVER exam. Due on due Goal Urinalysis. Due [...] Goal Breast exam. Due on due Goal [employer]IVER exam. Due on due Goal Influenza Vaccine. [...] Goal Pap/HPV testing. Due on due Goal [employer]IVER exam. Due on due Goal H&P. Due [...] Goal TD Vaccine. Due on due Goal FOBT. Due on due Goal Colonoscopy. Due on due Goal Pap/HPV testing. Due on due Goal Breast exam. Due on due Goal Lipid Panel. Due on due Goal H&P. Due on due Goal Influenza Vaccine. Due on due Goal Tdap. Due on due Goal BMP fasting. Due on 014 due Goal [employer] exam. Due on due Goal Sigmoidoscopy. Due on due Goal Urinalysis. Due on 14 due Goal Mammogram. Due on 5 due Goal TD Vaccine. Due on 15 due Goal Mammogram. Due on due Goal [...] due Goal Tdap. Due on due Goal [employer] exam. Due on due Goal FOBT. Due on due Goal Breast exam. Due on due Goal Tdap. Due on due Goal Influenza Vaccine. Due on due Goal H&P. Due on due Goal FOBT. Due on due Goal Mammogram. Due on 5 due Goal Lipid Panel. Due on due Goal [employer] exam. Due on due Goal Pap/HPV testing. Due on due Goal BMP fasting. Due on 014 due Goal Urinalysis. Due on 14 due Goal Sigmoidoscopy. Due on due Goal Depression scree nancy. Due on due Goal TD Vaccine. Due on 15 due Goal Colonoscopy. Due on due Goal Tdap. Due on due Goal Sigmoidoscopy. Due on due Goal TD Vaccine. Due on 15 due Goal [employer] exam. Due on due Goal BMP fasting. [...] Breast exam. Due on 015 due Goal [employer]IVER exam. Due on due Goal TD Vaccine. Due on 15 due Goal Influenza Vaccine. Due on due Goal Colonoscopy. Due on due Goal FOBT. Due on due Goal Sigmoidoscopy. Due on due Goal Breast exam. Due on due Goal Tdap. Due on due Goal [employer]IVER exam. Due on due Goal Mammogram. Due [...] due Goal H&P. Due on due Goal [employer]IVER exam. Due on due Goal Tdap. Due [...] due Goal Tdap. Due on due Goal [employer]IVER exam. Due on due Goal Pap/HPV testing. Due on due Goal Mammogram. Due on 5 due Goal FOBT. Due on due Goal Breast exam. Due on due Goal BMP fasting. Due on 014 due Goal Sigmoidoscopy. Due on due Goal Sigmoidoscopy. Due on due Goal BMP fasting. Due on 014 due Goal Influenza Vaccine. Due on due Goal [employer]IVER exam. Due on due Goal Urinalysis. Due [...] To: Sal Muse [address] [place], [place] [id number] Ordered: Referrals: Allopathic & Osteopathic Physicians : Orthopaedic Surgery. [facility]. Location: [facility]. Consult Appointment date/timeframe: 09/03/2017 ordered Referral Ordered: [...] Referral Ordered: referred to Clinical Nurse Specialist FOOD SERVICE ASSISTANT today (related to Attention to colostomy) ordered Referral Ordered: Urology. ordered Future Order: Lab Order GLYCOSYL ATED HEMOGLOBIN TEST ([id number]), Collected on: , Sent on: Sent Future Order: Lab Order Complian ce Drug Analysis, Ur ([id number]), Collected on: , Sent on: Sent Future Order: Lab Order Urine, N aloxone Urine Cofirm ([id number]), Collected on: , Sent on: Sent History [...] RN ,above was reviewed and agreed with [facility] lab draw Pt here for lab [...] Lyrica 08/11, Ativan 08/05, Flexeril 07/29 & Greenwood 07/26TGrodi [employer] TRA[employer] TECHNICIAN fatigue This is an initi al visit. [...] completed, last filled Lorazepam 06/06, Lyrica 06/06, Greenwood 06/05TGrodi [facility] Med Refills Pt here today fo r medication refills. PT states she fell Thursday and her L hand is swollen. Denies any pain. OARRS completed, last filled Greenwood, Ativan & Lyrica 05/08TGrodi [facility] Musculoskeletal pain Onset: sudd en. It occurs [...] Ativan, 02/13, Lyrica 02/13, & norco 02/06TGrodi [employer] TRA[employer] CONTR[employer] TECHNICIAN fatigue This is an initi al visit. [...] Ativan 12/19, Lyrica 12/17, Flexeril 12/02 & Greenwood 11/20TGrodi LPNPt states she is just tired, pt son who she lives with has his son that is 3 months old and not sleeping thought the [facility] Med Refills Pt here today fo [...] work. OARRS completed, last filled Ativan 10/23, Greenwood 10/31 & Flexeril 10/31TGrodi [employer] TRA[employer] CONTR[employer] TECHNICIAN GERD The severity of the problem is [...] refills. OARRS completed, last filled Ativan 09/25, Greenwood & Flexeril 09/05TGrodi E[employer] TRA[employer] CONTR[employer] TECHNICIAN diabetes The problem is s table. Risk [...] OARRS completed, last filled Ativan 08/26 & Greenwood 08/08TGrodi [employer] TRA[employer] CONTR[employer] TECHNICIAN Med Refills Pt here today fo r medication refills. We discussed Pt getting tested genes for coronary artery disease and what pt should do about it otherwise pt is doing well. OARRS completed, last filled Ativan 07/22, Flexeril 07/15, Greenwood 07/11 & Lyrica 07/01TGrodi ELECTRONIC TRAIN CONTROL TECHNICIAN fatigue This is an initi al visit. [...] completed, last filled Lyrica & Ativan 05/27, Greenwood 05/18, & Ambien 05/14TGrodi ELECTRONIC TRAIN CONTROL TECHNICIAN diabetes The problem is s table. Risk [...] completed, last filled Ativan 04/28, Lyrica 04/28, Greenwood 04/16TGrodi ELECTRONIC TRAIN CONTROL TECHNICIAN GERD The severity of the problem is [...] back pain and dizziness, states that the Greenwood is no longer helping the pain. Pt [...] 03/10, Ativan, Ambien & Lyrica 03/02, & Greenwood 03/01TGrodi [employer] TRAIN CONTROL TECHNICIAN Anxiety This is a follow up visit. [...] swelling, redness and pain. Pt states the Greenwood helps with the pain but she is worried about infection. Pt denies any other problems or concerns.Pt requesting refills of Greenwood 5mg last filled 11/07 and Ativan 0.5mg [...] completed, last filled Lyrica 10/27, Flexeril 10/27, Greenwood & Ativan 09/27TGjoyce HOPPER Rash The patient [...] provide oral swab. OARRS completed, last filled Greenwood 09/27, Ativan 09/27 & Lyrica 09/28. [facility] Rapid urine drug screen performed, pt + for NOTHING ALL NEGATIVE. Asked patient when she last took her medication and she stated she last took Ativan yesterday & Greenwood 4 days ago. TGrodi [facility] Med refills Pt here today fo r [...] last filled Flexeril 09/19 & 09/08, Lyrica, Greenwood [facility] Onset was sudden . The duration [...] if she needs a refill on her Greenwood and she said, yeah might as well . I asked patient to provide a urine today and she said she can not pee. OARRS completed, last filled Flexeril 08/26, Ativan 08/03, & Greenwood 08/03TGrodi [employer] TECHNICIAN Dizziness Onset was sudden . Severity is [...] Flexeril 07/15, Lyrica 06/29, Ativan 06/22 & Greenwood 06/22rodi [facility] DRUG SCREEN Pt could not uri ion for a UDS. Pt had blood drawn. First attempt successful in R antecubital. Pt tolerated well. [facility]K F/U Pt here today fo [...] filled Flexeril 05/27 & 06/09, Lyrica 05/25, Greenwood & Ativan 05/11TGrod LPNPt states that beside the no energy she feels ok drug screen Pt could no go t o the bathroom so did a blood draw for a drug screen. First attempt successful in R antecubital. Pt tolerated well no issues or concerns. [facility] follow up Pt here today fo r a follow up & medication refills. Pt states she had her INR drawn today and it was 1.9OARRS completed, last filled Flexeril 04/30, Lyrica 04/25, Ativan 04/13, & Greenwood 03/11TGrodi [facility] hypertension Comorbid conditi ons include diabetes mellitus. [...] completed, last filled Lyrica 02/16, Ativan, & Greenwood /Grodi LPNASKED PATIENT IF SHE COULD PROVIDE A URINE AND SHE SAID NOT RIGHT NOW. SHE WILL NEED TO PROVIDE A URINE OR GET A BLOOD DRAW. ,above was reviewed and agreed with Medication refills Patient here for Medication refills. Patient is requesting refills on Wellbutrin, Ativan and Greenwood. A1C completed today. No other issues at this time. Also patient did agree to reschedule breast biopsy. Patent was advised to stop blood thinners for 5 days. Patient is scheduled 02/09/19 at 10am at the [facility] for breast health. OARRS completed. last fills [...] well. She states she does not need Greenwood cause she still has some. OARRS completed, last filled, Ativan 12/22 for 15 day supply, Greenwood & Lyrica 12/22TGrodi LPNPt states she get [...] this needs discussed. OARRS completed, last filled Greenwood, Ativan, 11/05, Lyrica 11/11 & got Percocet [...] Pt here for medi cation refill on Greenwood and Ativan. Pt. c/o back pain 08/11. [...] syrup cough drops, tylenol. Sandra Guthrie RN. Alderson: Finished ten day s if Keflex. Coughing [...] called. Jose Margarito: Coughing for 1 w quechan. No hemoptysis or shortness of breath or chest pain. Has a nebulizer at home. Alderson: States she was t aking Gabapentin for [...] like 90 days supply if possible. [facility] follow up Patient states s he went [...] the coumadin clinic and Coreg managed by [facility] Dr. Rodriguez. Patient needs a release for [...] is looking into another psych provider in [place]. RUCHI Figueroa knee pain Location: knee. Additional [...] april to see new psych doctor in [place]. Patient has no other issues at this [...] are due for refill. She went to [facility] on 10/15/15 and starts PT on 11/07/15. [...] Metoprolol, & Clopidogel. Oscar Arias dyspnea Pt. [facility] was i [facility] in for emergency colectomy. While inpt. was using nebulizers. Was not given Rx at time of d/c and has been using sister's neb at home with relief of dyspnea. Neb meds currently using are Albuterol and Ipratropium [place] 2 - 3 times/day. Hayden Casas R.N. med f/u Client here to f /u on meds. Also [facility] has a rash around her stoma. [facility] has a Colonoscopy sched. for [...] to Body mass index (BMI) 31.0-31.9, adult Pelvic sonogram orde red for evaluation of pelvic discomfort for >1 month Related to Pelvic pain in female Patient states she f ound a lump in her left breast 2 weeks ago. Slightly tender and slightly mobile. Cx Bilateral mammogram with left breast sonogram. Referral to general surgeon for further evaluation. Related to Left breast lump Encouraged monthly B SE. Recommend calcium 1000mg QD. Encouraged good dietary intake and exercise. Laboratory specimens sent to lab. Patient to call in 2 weeks if desires results. Related to Encntr for manager sas exam (general) (routine) w/o abn findings Cervical [...]
--- OUTSIDE RECORDS SUMMARY | 2024-09-16 11:00 | XMS_ITS ---
Author Organization [facility] es Address [address] [facility] [place] [place] [address] Care Team Providers Care Flight Line Service Attendant Name Role Phone Darcie Lacey Primary Care Provider [phone] Janna Jackson Unavailable [phone] REASON FOR VISIT chronic f/u Encounters Encounter Location Date Provider Diagnosis [facility] [address] [facility] [place] [address] 09/16/2024 Darcie Lacey Plan Of Treatment No Information Progress Notes * KING MORENO ADOB:[birth year] (64 yo F)Acc No.[id number]:09/16/2024 Progress Notes Patient: KING KWONG Appointment Provider: Juanita LACEY MD :1960 A ge:63 Y S ex:Female Date:09/16/2024 Address:[address] [place], [place] [id number] Subjective: * Chief Complaints: * 1 . Chronic f/u. * Medical History: Objective: * Vitals: Assessment: Plan: * Treatment: * Images: * Electronic signature of Sherly Lacey MD on 04/10/2025 at 06:58 PM EDT Sign off status: Pending * Appointment Provider: Juantia LACEY MD Date: 11/16/2023 Generated for [place] ng/Facliftong/eTransmitting on: 0 04/10/2025 06:58 PM EDT
--- OUTSIDE RECORDS SUMMARY | 2024-12-07 10:15 | XMS_ITS ---
Author Organization [facility] es Address [address] [place] [address] Care Team Providers Care General Surgeon Name Role Phone Darcie Garcia Primary Care Provider Janna Jackson Unavailable [phone] Nicole Benson Unavailable [phone] REASON FOR VISIT 3 month f/u Encounters Encounter Location Date Provider Diagnosis [facility] [address] [place] [address] 12/07/2024 Nicole Benson Plan Of Treatment No Information Progress Notes * KING MORENO ADOB:[birth year] (64 yo F)Acc No.[id number]:12/07/2024 Behavioral Health Patient: KING KWONG Appointment Provider: Luz Benson :1960 A ge:64 Y S ex:Female Date:12/07/2024 Address:[address] [place], [place] [id number] Pcp:Darcie Garcia Subjective: * Chief Complaints: * 1 . 3 month f/u. * Medical History: Objective: * Vitals: Assessment: Plan: * Treatment: * Images: * Electronic signature of KRISTIAN Hercules on 04/10/2025 at 06:58 PM EDT Sign off status: Pending * Appointment Provider: Luz Benson Date: 0 12/07/2024 Generated for Brandon williamson/Maverick/eTransmitting on: 0 04/10/2025 06:58 PM EDT
--- OUTSIDE RECORDS SUMMARY | 2025-04-03 13:00 | XMS_ITS | Encounter Summary ---
Author Organization [facility] Address [address] [place] [address] Phone Care Team Providers Care Property Management Bookkeeper Name Role Phone June Preston MD Unavailable Conchita Aden MD Primary Care Provider [phone] Reason for Referral * Imaging (Routine) - Authorized Specialty Diagnoses / Procedures Referred By Aleena lomeli Referred To Contact Radiology Diagnoses Ventricular tachycardia (Multi) Abnormal result of cardiovascular function study, unspecified Procedures CT heart structure morphology w IV contrast Jennifer Fair MD [address] [place] [address] Phone: tel: fax: Referral ID Status Reason Start Date Expiration Date Visits Requested Visits Authorized [id number] Authorized Perform Procedure 01/12/2025 01/12/2026 1 1 Reason for Visit * Imaging (Routine) - Authorized Specialty Diagnoses / Procedures Referred By Aleena lomeli Referred To Contact Radiology Diagnoses Ventricular tachycardia (Multi) Abnormal result of cardiovascular function study, unspecified Procedures CT heart structure morphology w IV contrast Jennifer Fair MD [address] [place] [address] Phone: tel: fax: Referral ID Status Reason Start Date Expiration Date Visits Requested Visits Authorized [id number] Authorized Perform Procedure 01/12/2025 01/12/2026 1 1 Encounter Details Date Type Department Care Team (Latest Contact Info) Description 04/03/2025 1:00 PM EDT - 04/03/2025 11:59 PM EDT Hospital Encounter [facility] [address] [place] [id number] Ventricular tachycardia (CMS/HCC); Abnormal result of cardiovascular function study, unspecified Discharge Disposition: Home Social History Tobacco Use [...] from your doctor or pharmacy? Never 01/08/[address] [facility] Utilities Answer Date Recorded In the past 12 months has th e [employer], gas, oil, or water [employer] threatened to shut off services in your [...] week 01/08/2025 How often do you attend uatsdin or yazidi serv ices? Patient declined 01/08/2025 Do you belong to any clubs o r organizations such as uatsdin groups, unions, fraternal or athletic groups, or [...] Patient Health Questionnaire-2 Score 0 01/08/2025 [facility] - Occupational Stress Questionnaire Answer Date Recorded [...] any time in the past 12 m [facility], were you homeless or living in a longterm (including now)? No 01/08/2025 Comments No Sex [...] suspected to have Coronavirus/COVID-19? No / Unsure 04/03/2025 1:09 PM EDT documented as of this encounter Medications [...] aspirin 81 mg EC tabletIndications:At herosclerosis of [place] coronary artery of [place] heart without angina pectoris Take 1 tablet (81 mg) by mouth 2 times a week. 11/14/2024 6 benzocaine-menthol (Cepastat Sore Throat) lozengeIndications:I CD (implantable cardioverter-defibri llator) discharge Dissolve 1 lozenge in the mouth every 2 hours if needed for sore throat. 40 lozenge 01/13/2025 Invokana 300 mgIndications:Type 2 diabetes mellitus without complication, without long-term current use of insulin,Atherosclero sis of [place] coronary artery of [place] heart without angina pectoris,Chronic systolic CHF (congestive [...] in the evening 90 tablet 3 09/27/2024 loperamide (Imodium) 2 mg capsuleIndications:I CD (implantable [...] mouth once daily. 60 tablet 11 01/13/2025 oxybutynin XL (Ditropan-XL) 10 mg 24 hr tablet Take 1 tablet (10 mg) by mouth once daily. 03/17/2023 QUEtiapine (SEROquel) 200 mg tablet Take 1 tablet (200 mg) by mouth once daily at bedtime. 06/27/2023 ranolazine (Ranexa) 500 mg 12 hr tabletIndications:At herosclerosis of [place] coronary artery of [place] heart without angina pectoris Take 1 tablet (500 mg) by mouth 2 times a day. 180 tablet 3 12/20/2024 rivaroxaban (Xarelto) 10 mg tabletIndications:Ve ntricular tachycardia (Multi),Pulmonary embolism, unspecified chronicity, unspecified pulmonary embolism type, unspecified whether acute cor pulmonale present (Multi),High risk medication use Take 1 tablet (10 mg) by mouth once daily. 90 tablet 3 11/11/2024 6 rosuvastatin (Crestor) 20 mg tabletIndications:At herosclerosis of [place] coronary artery of [place] heart without angina pectoris,Mixed hyperlipidemia Take 1 tablet (20 mg) by mouth once daily. 90 tablet 3 11/11/2024 6 spironolactone (Aldactone) 25 mg tabletIndications:Es sential hypertension Take 1 tablet (25 mg) by mouth once daily. 90 tablet 3 11/15/2024 6 documented as of this encounter Plan of Treatment Upcoming Encounters Date Type Department Care Team (Latest Contact Info) Description 04/14/2025 9:30 AM EDT Hospital Encounter [facility] [place] [address] [place] [address] [place] [address] Jennifer Fair MD [address] [place] [address] Ventricular tachycardia (Multi) 04/14/2025 11:00 AM EDT - 04/14/2025 3:00 PM EDT Surgery [facility] [address] [place] [address] [place] [address] Jennifer Fair MD [address] [place] [address] [place] [[address] (CPT )] 07/14/2025 1:00 PM EDT Office Visit [facility] [address] [facility] [address] [place] [address] Oscar Rodriguez MD 3 [facility] 2, [address] [place] [address] 09/26/2025 12:20 PM EST Appointment [facility] [address] [place] [address] 09/26/2025 1:00 PM EST Office Visit [facility] [address] [facility] [address] [place] [address] June Preston MD [address] [facility] Medical [facility] [address], [address] [place], [place] [id number] documented as of this encounter Procedures Procedure Name Priority Date/Time Associated Diagnosis Comments CT HEART STRUCTURE MORPHOLOGY W IV CONTRAST Routine 04/03/2025 1:36 PM EDT Ventricular tachycardia (CMS/HCC) Abnormal result of cardiovascular function study, unspecified documented in this encounter Results * CT heart structure morphology w IV contrast (04/03/2025 1:36 PM EDT) Anatomical Region Laterality Modality Thoracic, Chest Computed Tomogra phy 04/03/2025 5:51 PM EDT 04/04/2025 1:17 AM EDT Impressions 04/04/2025 1:16 AM EDT 1. InHeart CTA protocol for late iodine enhancement. 2. Diffuse coronary artery disease s/p PCI/stent to LAD and D1 (patent) and proximal RCA (occluded). Correlate with prior LHC. 3. The distal LM has calcified plaque with <50% stenosis. 4. Moderate left ventricular dilatation. Correlate with TTE. 5. Mild bilateral upper zone predominant centrilobular emphysematous changes. Signed by: Anand Baugh 04/04/2025 1:16 AM Dictation workstation: [id number] Narrative 04/04/2025 1:16 AM EDT Interpreted By: Anand Baugh and Okyere Robert STUDY: CT HEART STRUCTURE MORPHOLOGY W IV CONTRAST; 04/03/2025 1:36 pm INDICATION: Signs/Symptoms:For Ventricular Tachycardia ablation planning; late iodine enhancement CT scan; inHeart protocol; must be done at [facility]. COMPARISON: None. ACCESSION NUMBER(S): [id number] ORDERING CLINICIAN: JENNIFER FAIR TECHNIQUE: Using multi-detector CT technology, axial, sequential imaging with prospective gating was performed of the chest following the intravenous administration of contrast material. A low-osmolar contrast agent was used ( 83 ml of Omnipaque 350). The patient was premedicated with 0.8 mg sublingual nitroglycerin for coronary dilation. For optimization of anatomic evaluation, multiplanar reconstruction, maximum intensity projections, and advanced 3-D off-line postprocessing were performed on a dedicated stand-alone workstation under the direct supervision of the interpreting physician. CT Dose-Length Product (DLP): 900 mGy/cm CT Dose Reduction Employed: Yes (Prospective triggering, iterative reconstruction) FINDINGS: POTENTIAL STUDY LIMITATIONS: None. CORONARY ARTERIES: CORONARY ANATOMY: There is normal origin of the coronary arteries. LEFT MAIN CORONARY ARTERY: The left main is normal sized vessel that bifurcates into the LAD and circumflex. There is mild calcific atherosclerosis of the distal left main resulting in about 25-50% luminal stenosis. LEFT ANTERIOR DESCENDING ARTERY: The LAD is a normal size vessel that wraps around the apex. It gives rise to 2 acute diagonal branches. Status post stent placement in the proximal LAD and proximal 1st diagonal. The LAD and 1st diagonal stents appear to be grossly patent however the proximal portion of the 1st diagonal stent is not well visualized due to overlap with the LAD stent (and thus blooming artifact). LEFT CIRCUMFLEX ARTERY: The LCX is a small size vessel, which is non-dominant. It gives rise to 1 obtuse marginal branches. There is mild calcific atherosclerosis of the proximal LCx and proximal OM1 branch resulting in about 25% luminal stenosis. RIGHT CORONARY ARTERY: The RCA is a normal size vessel, which is dominant . It gives rise to a conus branch, tonny branch, and 0 acute marginal branches. In its distal segment it bifurcates into the PDA and PV branch. Status post stent placement of the proximal and mid RCA which appear to be occluded at the proximal segment. There is mild calcific atherosclerosis of the distal RCA resulting in about 25-50% luminal stenosis which fills via [id number]-uo-vtenv collaterals. CARDIAC CHAMBERS: The cardiac chambers demonstrate normal atrioventricular and ventriculoarterial concordance, and systemic and pulmonary venous return. LEFT ATRIUM: Normal size RIGHT ATRIUM: Normal size. A device (pacemaker lead) is visualized. INTERATRIAL SEPTUM: Intact. LEFT VENTRICLE: Normal size RIGHT VENTRICLE: Normal size. A device (pacemaker lead) is visualized. AORTIC VALVE: The aortic valve is trileaflet in morphology. No calcifications. MITRAL VALVE: Mild mitral annular calcification. THORACIC AORTA: The visualized thoracic aorta is normal in course, caliber, and contour. The ascending thoracic aorta is 2.8 cm in diameter. There is no acute aortic pathology, such as dissection, intramural hematoma, or contained rupture. The aortic arch is not included on this examination. PULMONARY The main pulmonary artery is 2.3 cm in diameter, RPA 1.8 cm. PERICARDIUM: There is no pericardial effusion of thickening. CHEST: The chest wall is normal. No significant lymphadenopathy or mass is seen in limited images of the mediastinum. Limited imaging through the lungs reveals mild emphysematous changes of the bilateral lungs with associated scattered bibasilar ground-glass opacities and atelectasis. No pleural effusion or pneumothorax. UPPER ABDOMEN: Limited imaging through the upper abdomen reveals a small hiatal hernia. Procedure Note Anand Baugh MD - 04/04/2025 Interpreted By: Anand Baugh and Okyere Robert STUDY: CT HEART STRUCTURE MORPHOLOGY W IV CONTRAST; 04/03/2025 1:36 pm INDICATION: Signs/Symptoms:For Ventricular Tachycardia ablation planning; late iodine enhancement CT scan; inHeart protocol; must be done at [facility]. COMPARISON: None. ACCESSION NUMBER(S): [id number] ORDERING CLINICIAN: JENNIFER FAIR TECHNIQUE: Using multi-detector CT technology, axial, sequential imaging with prospective gating was performed of the chest following the intravenous administration of contrast material. A low-osmolar contrast agent was used ( 83 ml of Omnipaque 350). The patient was premedicated with 0.8 mg sublingual nitroglycerin for coronary dilation. For optimization of anatomic evaluation, multiplanar reconstruction, maximum intensity projections, and advanced 3-D off-line postprocessing were performed on a dedicated stand-alone workstation under the direct supervision of the interpreting physician. CT Dose-Length Product (DLP): 900 mGy/cm CT Dose Reduction Employed: Yes (Prospective triggering, iterative reconstruction) FINDINGS: POTENTIAL STUDY LIMITATIONS: None. CORONARY ARTERIES: CORONARY ANATOMY: There is normal origin of the coronary arteries. LEFT MAIN CORONARY ARTERY: The left main is normal sized vessel that bifurcates into the LAD and circumflex. There is mild calcific atherosclerosis of the distal left main resulting in about 25-50% luminal stenosis. LEFT ANTERIOR DESCENDING ARTERY: The LAD is a normal size vessel that wraps around the apex. It gives rise to 2 acute diagonal branches. Status post stent placement in the proximal LAD and proximal 1st diagonal. The LAD and 1st diagonal stents appear to be grossly patent however the proximal portion of the 1st diagonal stent is not well visualized due to overlap with the LAD stent (and thus blooming artifact). LEFT CIRCUMFLEX ARTERY: The LCX is a small size vessel, which is non-dominant. It gives rise to 1 obtuse marginal branches. There is mild calcific atherosclerosis of the proximal LCx and proximal OM1 branch resulting in about 25% luminal stenosis. RIGHT CORONARY ARTERY: The RCA is a normal size vessel, which is dominant . It gives rise to a conus branch, tonny branch, and 0 acute marginal branches. In its distal segment it bifurcates into the PDA and PV branch. Status post stent placement of the proximal and mid RCA which appear to be occluded at the proximal segment. There is mild calcific atherosclerosis of the distal RCA resulting in about 25-50% luminal stenosis which fills via oibm-lm-orjuc collaterals. CARDIAC CHAMBERS: The cardiac chambers demonstrate normal atrioventricular and ventriculoarterial concordance, and systemic and pulmonary venous return. LEFT ATRIUM: Normal size RIGHT ATRIUM: Normal size. A device (pacemaker lead) is visualized. INTERATRIAL SEPTUM: Intact. LEFT VENTRICLE: Normal size RIGHT VENTRICLE: Normal size. A device (pacemaker lead) is visualized. AORTIC VALVE: The aortic valve is trileaflet in morphology. No calcifications. MITRAL VALVE: Mild mitral annular calcification. THORACIC AORTA: The visualized thoracic aorta is normal in course, caliber, and contour. The ascending thoracic aorta is 2.8 cm in diameter. There is no acute aortic pathology, such as dissection, intramural hematoma, or contained rupture. The aortic arch is not included on this examination. PULMONARY The main pulmonary artery is 2.3 cm in diameter, RPA 1.8 cm. PERICARDIUM: There is no pericardial effusion of thickening. CHEST: The chest wall is normal. No significant lymphadenopathy or mass is seen in limited images of the mediastinum. Limited imaging through the lungs reveals mild emphysematous changes of the bilateral lungs with associated scattered bibasilar ground-glass opacities and atelectasis. No pleural effusion or pneumothorax. UPPER ABDOMEN: Limited imaging through the upper abdomen reveals a small hiatal hernia. IMPRESSION: 1. InHeart CTA protocol for late iodine enhancement. 2. Diffuse coronary artery disease s/p PCI/stent to LAD and D1 (patent) and proximal RCA (occluded). Correlate with prior LHC. 3. The distal LM has calcified plaque with <50% stenosis. 4. Moderate left ventricular dilatation. Correlate with TTE. 5. Mild bilateral upper zone predominant centrilobular emphysematous changes. Signed by: Anand Baugh 04/04/2025 1:16 AM Dictation workstation: [id number] Jennifer Fair MD IMG CT PROCEDURES Final Result documented in this encounter Visit Diagnoses Diagnosis Ventricular tachycardia (CMS/HCC)- Primary Paroxysmal ventricular tachycardia Ventricular tachycardia (CMS/HCC) Paroxysmal ventricular tachycardia Abnormal result of cardiovascular function study, unspecified Ventricular tachycardia (Multi) Paroxysmal ventricular tachycardia documented in this encounter Administered Medications Inactive Administered Medications - up to 3 most recent administrations Medication Order MAR Action Action Date Dose Rate Site iohexol (OMNIPaque) 350 mg iodine/mL solution 150 mL 150 mL, intravenous, Once in imaging, Starting on Thu04/03/25 at 1336, For 1 dose Given 04/03/2025 1:36 PM EDT 150 mL documented in this encounter Additional Health Concerns Assessment Noted Time PHQ-9 Depression Total Score: 9 01/23/20 22 11:33 AM EDT A fall risk assessment has been complete d for the patient 03/01/2024 12:30 PM EDT documented as of this encounter Care Teams Property Management Bookkeeper Relationship Specialty Start Date End Date Conchita Aden MD [facility] [facility] [place] [address] PCP - General Family Medicine 11/11/24 June Preston MD [address] [place] [address] Provider Engagement Executive Electrophysiology 09/13/24 documented as of this encounter
--- OUTSIDE RECORDS SUMMARY | 2025-04-10 18:58 | XMS_ITS | Encounter Summary ---
Author Organization [facility] Address [address] [place] [address] Phone Care Team Providers Care Digitizer Name Role Phone Tremaine West DO Primary Care Provider Ania Brothers TIRE RECAPPING MACHINE OPERATOR-STRIPING MACHINE OPERATOR Unavailable Unavailable June Preston MD Unavailable Sol Keita BICYCLE RENTAL CLERK Unavailable [phone] June Preston MD Unavailable Oscar Rodriguez MD Unavailable [phone] Generic Provider, No Assigned Pcp Primary Car e Provider Unavailable Diane Min RN Unavailable Unavailable June Preston MD Unavailable Conchita Aden MD Primary Care Provider [phone] Diane Min RN Unavailable Unavailable Encounter Details Date Type Department Care Team (Late st Contact Info) Description 07/23/2023 Scanned Document [facility] [address] [place] [address] Conversion, Onbase Social History Tobacco Use Types [...] EDT Hospital Encounter [facility] [place] [address] [place] [address] [place] [address] Kervin Fair MD [address] [place] [address] Ventricular tachycardia (Multi) 04/14/2025 11:00 AM EDT - 04/14/2025 3:00 PM EDT Surgery [facility] [place] [address] [place] [address] [place] [address] Kervin Fair MD [address] [place], [place] [id number] [place] [[address] (CPT )] 07/14/2025 1:00 PM EDT Office Visit [facility] [address] [facility] [address] [place] [address] Oscar Rodriguez MD [address] [facility] 2, [address] [place] [address] 09/26/2025 12:20 PM EST Appointment [facility] [address] [place] [address] 09/26/2025 1:00 PM EST Office Visit [facility] [address] [facility] [address] [place] [address] June Preston MD [address] [facility] Office [facility], [address] [place] [address] documented as of this encounter Procedures Procedure [...] documented as of this encounter Care Teams Digitizer Relationship Specialty Start Date End Date Tremaine West DO [address] Amor West DO [address] [address] PCP - General 01/22/22 11/05/23 Generic Provider, No Assigned Pcp, [place] [address] PCP - General Housekeeping/Laundry 08/08/24 11/10/24 Conchita Aden MD [address] [place] [address] PCP - General Family Medicine 11/11/24 Ania Brothers, TIRE RECAPPING MACHINE OPERATOR-STRIPING MACHINE OPERATOR [address] Amor West [address] [address] Nurse Practitioner Cardiology 09/30/23 02/16/24 June Preston MD [address]or [address] [address] Director Of Community Center Cardiology 09/30/23 02/16/24 Sol Keita, BICYCLE RENTAL CLERK Inspector Grain Mill ProductsIntegrity Assessor 02/19/24 05/17/24 June Preston MD [address] [facility], [address] [place] [address] Consulting Physician Cardiology 02/19/24 02/29/24 Oscar Rodriguez MD [address] [place] [address] 2, [address] [place] [address] Consulting Physician Cardiology 02/19/24 02/29/24 Diane Min, superior court judgeIntegrity Assessor 09/05/24 12/06/24 June Preston MD [address] [facility], [address] [place] [address] Director Of Community Center Electrophysiology 09/13/24 Diane Min, superior court judgeIntegrity Assessor 01/16/25 01/31/25 documented as of this encounter
--- OUTSIDE RECORDS SUMMARY | 2025-04-10 18:58 | XMS_ITS | Encounter Summary ---
Author Organization [facility] Address [address] [place] [address] Phone Care Team Providers Care Logistics Officer Name Role Phone Generic Provider, No Assigned Pcp Primary Car e Provider Unavailable Diane Min RN Unavailable Unavailable June Preston MD Unavailable Conchita Aden MD Primary Care Provider [phone] Diane Min RN Unavailable Unavailable Encounter Details Date Type Department Care Team (Late st Contact Info) Description 10/29/2024 Scanned Document [facility] [address] [place] [address] Scanning, Generic Provider Social History [...] any time in the past 12 m [facility], were you homeless or living in [...] Description 04/14/2025 9:30 AM EDT Hospital Encounter [facility] [place] [address] [place] [address] [place] [address] Kervin Fair MD [address] [place] [address] Ventricular tachycardia (Multi) 04/14/2025 11:00 AM EDT - 04/14/2025 3:00 PM EDT Surgery [facility] [place] [address] [place] [address] Kervin Fair MD [address] [place], [place] [id number] [place] [[address] (CPT )] 07/14/2025 1:00 PM EDT Office Visit [facility] [address] [facility] [address] [place] [address] Oscar Rodriguez MD [address], [address] [place], [place] [address] 09/26/2025 12:20 PM EST Appointment [facility] [address] [place] [address] 09/26/2025 1:00 PM EST Office Visit [facility] [address] [facility] [address] [place] [address] June Preston MD [address] [facility] Medical Office Bldg, [address] [place] [address] documented as of this encounter Visit Diagnoses [...] documented as of this encounter Care Teams Logistics Officer Relationship Specialty Start Date End Date Generic Provider, No [place] [address] PCP - General Shorthand Reporter 08/08/24 11/10/24 Conchita Aden MD [address] [place] [address] [place] [address] PCP - General Family Medicine 11/11/24 Diane Min, medical care evaluation specialistImaging Clerk 09/05/24 12/06/24 June Preston MD [address] [facility], [facility] [address] [place] [address] Flue Gas Analyst Electrophysiology 09/13/24 Diane Min, medical care evaluation specialistImaging Clerk 01/16/25 01/31/25 documented as of this encounter
--- OUTSIDE RECORDS SUMMARY | 2025-04-10 18:58 | XMS_ITS | Patient Health Record ---
Author Organization [facility] Address [address] [place] [address] Care Team Providers Care Android Framework Developer Name Role Phone Darcie Garcia Primary Care Provider [phone] Janna Jackson Unavailable [phone] Nicole Benson Unavailable [phone] Wilson Isabel Unavailable [phone] Abdiel Kennedy Unavailable [phone] Emmanuel Stratton Unavailable [phone] Allergies No Known Allergies Reason For Referral [...] Status Risk Notes Problem Restless legs syndrome (20774041) Restless legs syndrome (G25.81) Active confirmed Problem [id number] Spondylolisthesi s, 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) Active confirmed Problem 018683345 Other intervertebral disc degeneration, lumbar region (M51.36) Active confirmed Problem 19293132 Urge incontinenc e (N39.41) Active confirmed Problem 83071858 Anxiety (F41.9) Active confirmed Problem 165585123 Bipolar 1 disord er (F31.9) Active confirmed Problem 255791384162573 Obesity (BMI 30.0-34.9) (E66.9) Active confirmed Problem 86575384 Paresthesias (R20.2) Active confirmed Problem 06909950 Chronic obstruct vesna pulmonary disease, unspecified COPD type (J44.9) Active confirmed Problem 546997454 Gastroesophageal reflux disease without esophagitis (K21.9) Active confirmed Problem 40846012 Atrial fibrillation, unspecified type (I48.91) Active confirmed Problem 19926178 Oral thrush (B37.0) Active confirmed Problem 58432276 Hypertension, unspecified type (I10) Active confirmed Problem 548272524 Moderate persist ent asthma, unspecified whether complicated (J45.40) Active confirmed Problem Body mass index 30+ - obesity (802560635) BMI 30.0-30.9,adult (Z68.30) Active confirmed Problem 97644938 Type 2 diabetes mellitus with diabetic polyneuropathy, unspecified whether correction insulin use (E11.42) Active confirmed Problem 73203239 Oropharyngeal dysphagia (R13.12) Active confirmed Problem Mixed bipolar affective disorder, moderate (033549058) Bipolar mixed affective disorder, moderate (F31.62) Active confirmed Problem 31548709 Anticoagulated o n Coumadin (Z79.01) Active confirmed Problem 99318670 Coronary artery disease of [place] heart with stable angina pectoris, unspecified vessel [...] 09/07/2024 Encounters Encounter Location Date Provider Diagnosis [facility] [address] [place] [address] 04/27/2024 Darcie Garcia [facility] [address] [place] [address] 06/01/2024 Darcie Garcia Urge incontinence N3 9.41 [facility] [address] [place] [address] 06/03/2024 Darcie Garcia [address] [address] [place] [address] 06/14/2024 Darcie Garcia [address] [address] [place] [address] 07/11/2024 Darcie Garcia Restless legs syndro me G25.81 [address] [address] [place] [address] 07/18/2024 Darcie Garcia [address] [address] [place] [address] 08/05/2024 Darcie Garcia [address] [place] [address] 08/11/2024 Darcie Garcia Gastroesophageal ref lux disease without esophagitis K21.9 [address] [address] [place] [address] 08/16/2024 Darcie Garcia Type 2 diabetes norah itus with diabetic polyneuropathy, unspecified whether contracting engineer insulin use E11.42 [address] [address] [place] [address] 08/29/2024 Darcie Garcia Restless legs syndro me G25.81 [address] [address] [place] [address] 11/28/2024 Darcie Garcia Hypertension, unspecified type I10 [address] [address] [place] [address] 06/21/2024 Emmanuel Stratton Restless legs syndro me G25.81 [address] [address] [place] [address] 06/29/2024 Darcie Garcia Restless legs syndro me G25.81 ; Hip pain, right M25.551 and Urge incontinence N39.41 [address] [address] [place] [address] 08/12/2024 Darcie Garcia Strain of neck muscl e, initial encounter S16.1XXA ; Changes in vision H53.9 ; Dizziness R42 and Paresthesias R20.2 [address] [address] [place] [address] 06/13/2024 Darcie Garcia Hip pain, right M25. 551 and Pneumonia of both lower lobes due to infectious organism J18.9 [facility] [address] [place] [address] 09/07/2024 Nicole Benson Bipolar mixed affect vesna disorder, moderate F31.62 [facility] [address] [place] [address] 07/13/2024 Nicole Benson Bipolar mixed affect vesna [...] 11/28/2024 Hypertension, unspecified type (ICD-10 - I10) 08/12/2024 Strain of neck muscle, initial encounter (ICD-10 - S16.1XXA) 08/12/2024 Changes in vision (ICD-10 - H53.9) 08/16/2024 Type 2 diabetes mellitus with diabetic polyneuropathy, unspecified whether correction insulin use (ICD-10 - E11.42) 08/29/2024 Restless legs syndrome (ICD-10 - G25.81) 08/11/2024 Gastroesophageal reflux disease without esophagitis (ICD-10 - K21.9) 07/11/2024 Restless legs syndrome (ICD-10 - G25.81) 06/01/2024 Urge incontinence (ICD-10 - N39.41) 06/13/2024 [...] 06/29/2024 Restless legs syndrome (ICD-10 - G25.81) 06/29/2024 Hip pain, right (ICD-10 - M25.551) [...] will do short coarse of meloxicam. 08/12/2024 Dizziness (ICD-10 - R42) 08/12/2024 Paresthesias (ICD-10 - R20.2) 06/29/2024 Urge incontinence (ICD-10 - N39.41) 06/13/2024 Other Body Mass Index : Care Instructions material was printed 06/21/2024 Other [facility] sent as mistake, called pharmacy to have [...] in the left eye.- Consult with an school age program teacher in the next 24 hours if possible [...] Date ANTHEM MEDIBLUE DUAL-ELIGB LE [address] [place] [phone] [id number] [facility] KING MORENO Self - patient is the insured 3 B MEDICAID SEC TO [employer] ADV [address] [place] [address] [phone] [id number] KING MORENO Self - patient is the insured 1 MEDICARE CGS [address] [place] [address] [phone] [id number] KING MORENO Self - patient is the [...] new medication - had to be observed 0420 24 see above
--- OUTSIDE RECORDS SUMMARY | 2025-04-10 18:58 | XMS_ITS | Clinical Summary ---
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) from Last 3 Months or Most Recently Relevant to Health Maintenance Results * (ABNORMAL) BASIC METABOLIC PNL (05/31/2015 12:41 AM EDT) Glucose 101(H) 65 - 100 mg/dL 05/31/2015 1:52 AM EDT [facility] BUN 3(L) 8 - 25 mg/dL 05/31/2015 1:52 AM T [facility] Creatinine 0.75 0.70 - 1.40 mg/dL 05/31/2015 1:52 AM T [facility] Sodium 135 132 - 148 mmol/L 05/31/2015 1:52 AM T [facility] Potassium 4.3 3.5 - 5.0 mmol/L 05/31/2015 1:52 AM T [facility] Chloride 100 98 - 110 mmol/L 05/31/2015 1:52 AM T [facility] CO2 24 23 - 32 mmol/L 05/31/2015 1:52 AM [facility] Anion Gap 11 0 - 15 mmol/L 05/31/2015 1:52 AM T [facility] Calcium 8.6 8.5 - 10.5 mg/dL 05/31/2015 1:52 AM T [facility] eGFR- >60 05/31/2015 1:52 AM T [facility] eGFR-All Other Races >60 . 05/31/2015 1:52 AM [facility] Comment: eGFR (Estimated GFR) [...] Marcial Escobar (Hist) Lin LABORATORY Final Result [facility] [address] [facility] [place] [address] * (ABNORMAL) LIPID PANEL BASIC (05/16/2015 10:42 AM EDT) Triglyceride 118 30 - 149 mg/dL 05/16/2015 6:55 PM EDT [facility] Cholesterol, Total 142 100 - 199 mg/dL 05/16/2015 6:55 PM EDT [facility] HDL Cholesterol 65 >55 mg/dL 5 6:55 PM EDT [facility] VLDL Cholesterol 24 6 - 40 mg/dL 05/16/2015 6:55 PM EDT [facility] LDL Cholesterol, Calculated 53(L) 60 - 129 mg/dL 05/16/2015 6:55 PM EDT [facility] Fasting Time Unknown hrs 05/16/2015 2:56 PM EDT [facility] TC:HDL Ratio 2.18 1.00 - 5.00 05/16/2015 6:55 PM EDT [facility] LDL:HDL Ratio 0.82 0.50 - 3.55 05/16/2015 6:55 PM EDT [facility] Non HDL Cholesterol 77(L) 90 - 159 mg/dL 05/16/2015 6:55 PM EDT [facility] Blood specimen (specimen) BLOOD SPECIMEN / Unknown 05/16/2015 10:42 AM EDT 05/16/2015 10:46 AM EDT us Warner Conde MD LABORATORY Final Result [facility] [address] [place] [address] from Last 3 Months or Most Recently Relevant to Health Maintenance Insurance MEDICARE MEDICAID [place]
--- OUTSIDE RECORDS SUMMARY | 2025-04-10 18:58 | XMS_ITS | Encounter Summary ---
Author Organization [facility] Address [address] [place] [address] Phone Care Team Providers Care Conversion Worker Name Role Phone Tremaine West DO Primary Care Provider Ania Brothers GREASE REFINING SUPERVISOR-RETAIL CENTER RECEPTIONIST Unavailable Unavailable June Preston MD Unavailable Sol Keita PLATFORM SOFTWARE ENGINEER Unavailable [phone] June Preston MD Unavailable Oscar Rodriguez MD Unavailable [phone] Generic Provider, No Assigned Pcp Primary Car e Provider Unavailable Diane Min RN Unavailable Unavailable June Preston MD Unavailable Conchita Aden MD Primary Care Provider [phone] Diane Min RN Unavailable Unavailable Encounter Details Date Type Department Care Team (Late st Contact Info) Description 07/27/2023 Scanned Document [facility] [address] [place] [address] Conversion, Onbase Social History Tobacco Use Types [...] Description 04/14/2025 9:30 AM EDT Hospital Encounter [facility] [place] [address] [place] [address] Kervin Fair MD [address] [place] [address] Ventricular tachycardia (Multi) 04/14/2025 11:00 AM EDT - 04/14/2025 3:00 PM EDT Surgery [facility] [place] [address] [place] [address] Kervin Fair MD [address] [place] [address] [place] [[address] (CPT )] 07/14/2025 1:00 PM EDT Office Visit [facility] [address] [facility] [address] [place] [address] Oscar Rodriguez MD 703 [facility] 2, [address] [place] [address] 09/26/2025 12:20 PM EST Appointment [facility] [address] [place] [address] 09/26/2025 1:00 PM EST Office Visit [facility] [address] [facility] [address] [place] [address] June Preston MD [address] [facility] Office [facility], [address] [place] [address] documented as of this encounter Procedures Procedure [...] documented as of this encounter Care Teams Conversion Worker Relationship Specialty Start Date End Date Tremaine West DO [address] Amor West DO [address] [address] PCP - General 01/22/22 11/05/23 Generic Provider, No Assigned Pcp, [place] [address] PCP - General Director Supplier Quality 08/08/24 11/10/24 Conchita Aden MD [address] [place] [address] [place] [address] PCP - General Family Medicine 11/11/24 Ania Brothers, GREASE REFINING SUPERVISOR-RETAIL CENTER RECEPTIONIST [address] Amor West DO [address] [address] Nurse Practitioner Cardiology 09/30/23 02/16/24 June Preston MD [address] [facility] Tremaine West, [address] [place] [address] Die Sinking Machine Operator Cardiology 09/30/23 02/16/24 Sol Keita, PLATFORM SOFTWARE ENGINEER Ion Exchange OperatorRecreation Attendant Supervisor 02/19/24 05/17/24 June Preston MD [address] [facility], [address] [place] [address] Consulting Physician Cardiology 02/19/24 02/29/24 Oscar Rodriguez MD 703 [facility] 2, [address] [place] [address] Consulting Physician Cardiology 02/19/24 02/29/24 Diane Min RN Care Recreation Attendant Supervisor 09/05/24 12/06/24 June Preston MD [address] [facility], [address] [place] [address] Die Sinking Machine Operator Electrophysiology 09/13/24 Diane Min, sound designerRecreation Attendant Supervisor 01/16/25 01/31/25 documented as of this encounter
--- OUTSIDE RECORDS SUMMARY | 2025-04-10 18:58 | XMS_ITS | Encounter Summary ---
Author Organization [facility] Address [address] [place], [place] [address] Care Team Providers Care Associate Director Financial Aid Name Role Phone Shanthi Litstephanie Nelson DO Primary Care Provider [phone] Reza Pike MD Primary Care Provider Pcp, No STATEMENT CLERKS MANAGER Primary Care Provider Unavailabl e Source Comments In the event this information is protected by the Federal Confidentiality of Alcohol and Drug AbusePatient Records regulations: The Federal rules restrict any use of the information to criminally investigate or prosecute any alcohol or drug abuse patient.[facility] Encounter Details Date Type Department Care Team (Late st Contact Info) Description 06/01/2015 Letters (in) Colorectal Surgery [address] [id number] Marcial Ceballos (Hist) [address] [id number] Social History Tobacco Use Types Packs/Day Years [...] June 01, 2015 Jd Dailey, DO [address] [address] RE: Latanya Martinez : [address] [...] and she was suitable for anesthesia, a confucianist of continuity could be performed. I performed [...] 22, 2015. Yours Faithfully, Marcial Ceballos MD [place]/ cc: Latanya Martinez 11/03 [place] [address] Lit Maki DO [address] [facility] [address] documented in this encounter Plan of Treatment Not on file documented as of this encounter Visit Diagnoses Not on filedocumented in this encounter Care Teams Associate Director Financial Aid Relationship Specialty Start Date End Date Lit Maki DO PCP - General 05/16/15 06/03/15 Reza Pike MD PCP - General Family Medicine 06/04/15 05/16/22 Pcp, No, STATEMENT CLERKS MANAGER PCP - General 05/17/22 12/02/22 documented as of this encounter
--- OUTSIDE RECORDS SUMMARY | 2025-04-10 18:58 | XMS_ITS | Encounter Summary ---
Author Organization [facility] Address [address] [place] [address] Phone Care Team Providers Care Sales Project Manager Name Role Phone Generic Provider, No Assigned Pcp Primary Car e Provider Unavailable Diane Min RN Unavailable Unavailable June Preston MD Unavailable Conchita Aden MD Primary Care Provider [phone] Diane Min RN Unavailable Unavailable Encounter Details Date Type Department Care Team (Late st Contact Info) Description 10/30/2024 Scanned Document [facility] [address] [place] [address] Scanning, Generic Provider Social History [...] place to sleep or slept in a fdc (including now)? No 02/16/2024 Housing Stability Vital Sign Answer Mookie e Recorded In the last 12 months, was t here a time when you were not able to pay the mortgage or rent on time? No 09/01/2024 In the past 12 months, how m any times have you moved where you were living? 0 09/01/2024 At any time in the past 12 m [facility], were you homeless or living in a fdc (including now)? No 09/01/2024 Comments No Sex [...] Hospital Encounter [facility] [place] [address] [place] [address] Kervin Fair MD [address] [place] [address] Ventricular tachycardia (Multi) 04/14/2025 11:00 AM EDT - 04/14/2025 3:00 PM EDT Surgery [facility] [place] [address] [place] [address] Kervin Fair MD [address] [place], [place] [id number] [place] [86200 (CPT )] 07/14/2025 1:00 PM EDT Office Visit [facility] [address] [place] [address] Oscar Rodriguez MD [address] [place] [address] 09/26/2025 12:20 PM EST Appointment [facility] [address] [place] [address] 09/26/2025 1:00 PM EST Office Visit [facility] [address] [place] [address] June Preston MD 125 E [facility] Medical Office Bldg, [address] [place], [place] [phone] documented as of this encounter Procedures Procedure [...] documented as of this encounter Care Teams Sales Project Manager Relationship Specialty Start Date End Date Generic Provider, No Assigned Pcp, [place] [address] PCP - General Retail Event Assistant 08/08/24 11/10/24 Conchita Aden MD [address] [place] [address] [place] [address] PCP - General Family Medicine 11/11/24 Diane Min RN Care Grief Counsellor 09/05/24 12/06/24 June Preston MD 125 E [facility] Medical Office Bldg, [address] [place] [address] Pediatric Radiologist Electrophysiology 09/13/24 Diane Min, room service bellhopGrief Counsellor 01/16/25 01/31/25 documented as of this encounter
--- OUTSIDE RECORDS SUMMARY | 2025-04-10 18:58 | XMS_ITS | Encounter Summary ---
Author Organization [facility] Address [address] [place] [address] Phone Care Team Providers Care Golf Range Attendant Name Role Phone Generic Provider, No Assigned Pcp Primary Car e Provider Unavailable Diane Min RN Unavailable Unavailable June Preston MD Unavailable Conchita Aden MD Primary Care Provider [phone] Diane Min RN Unavailable Unavailable Encounter Details Date Type Department Care Team (Late st Contact Info) Description 11/05/2024 Scanned Document [facility] [address] [place] [address] Scanning, Generic Provider Social History [...] place to sleep or slept in a fci (including now)? No 02/16/2024 Housing Stability Vital Sign Answer Mookie e Recorded In the last 12 months, was t here a time when you were not able to pay the mortgage or rent on time? No 09/01/2024 In the past 12 months, how m any times have you moved where you were living? 0 09/01/2024 At any time in the past 12 m [facility], were you homeless or living in a fci (including now)? No 09/01/2024 Comments No Sex [...] EDT Hospital Encounter [facility] [place] [address] 0[address] [place] [address] Kervin aFir MD [address] [place] [address] Ventricular tachycardia (Multi) 04/14/2025 11:00 AM EDT - 04/14/2025 3:00 PM EDT Surgery [facility] [place] [address] [place] [address] Kervin Fair MD [address] [place], [place] 8653635 [place] [48262 (CPT )] 07/14/2025 1:00 PM EDT Office Visit [facility] 703 [facility] [address] [place] [address] Oscar Rodriguez MD [address] [place], [place] [address] 09/26/2025 12:20 PM EST Appointment [facility] [address] [place] [address] 09/26/2025 1:00 PM EST Office Visit [facility] [address] [facility] [address] [place] [address] June Preston MD 125 E [facility] Medical Office Bldg, [address] [place] [address] documented as of this encounter Visit Diagnoses [...] documented as of this encounter Care Teams Golf Range Attendant Relationship Specialty Start Date End Date Generic Provider, No [place] [address] PCP - General Peoplesoft Developer 08/08/24 11/10/24 Conchita Aden MD [address] [place] [address] [place] [address] PCP - General Family Medicine 11/11/24 Diane Min, programmer analystHydroelectric Component Machinist 09/05/24 12/06/24 June Preston MD 125 E [facility], [facility] [address] [place] [address] Care Support Representative Electrophysiology 09/13/24 Diane Min, programmer analystHydroelectric Component Machinist 01/16/25 01/31/25 documented as of this encounter
--- OUTSIDE RECORDS SUMMARY | 2025-04-10 18:58 | XMS_ITS | Encounter Summary ---
Author Organization [facility] Address [address] [place] [address] Phone Care Team Providers Care Television Journalist Name Role Phone Generic Provider, No Assigned Pcp Primary Car e Provider Unavailable Diane Min RN Unavailable Unavailable June Preston MD Unavailable Conchita Aden MD Primary Care Provider [phone] Diane Min RN Unavailable Unavailable Encounter Details Date Type Department Care Team (Late st Contact Info) Description 11/02/2024 Scanned Document [facility] [address] [place] [address] Scanning, Generic Provider Social History [...] any time in the past 12 m [facility], were you homeless or living in a detention (including now)? No 09/01/2024 Comments No Sex [...] Hospital Encounter [facility] [place] [address] 820099 [place] [address] Kervin Fair MD [address] [place] [address] Ventricular tachycardia (Multi) 04/14/2025 11:00 AM EDT - 04/14/2025 3:00 PM EDT Surgery [facility] [place] [address] [place] [address] Kervin Fair MD [address] [place], [place] 85[address] [place] [27235 (CPT )] 07/14/2025 1:00 PM EDT Office Visit [facility] 703 [facility] [address] [place] [address] Oscar Rodriguez MD [address] [place], [place] [address] 09/26/2025 12:20 PM EST Appointment [facility] [address] [place] [address] 09/26/2025 1:00 PM EST Office Visit [facility] [address] [facility] [address] [place] [address] June Preston MD 125 [address] [facility] Medical Office Bldg, [address] [place] [address] documented as of this encounter Visit Diagnoses [...] documented as of this encounter Care Teams Television Journalist Relationship Specialty Start Date End Date Generic Provider, No [place] [address] PCP - General Cylinder Block Hole Reliner 08/08/24 11/10/24 Conchita Aden MD [address] [place] [address] [place] [address] PCP - General Family Medicine 11/11/24 Diane Min, contact lens curve grinderMedicine Tech 09/05/24 12/06/24 June Preston MD 125 E [facility], [facility] [address] [place] [address] Site Controller Electrophysiology 09/13/24 Diane Min, contact lens curve grinderMedicine Tech 01/16/25 01/31/25 documented as of this encounter
--- OUTSIDE RECORDS SUMMARY | 2025-04-10 18:58 | XMS_ITS | Encounter Summary ---
Author Organization [facility] Address [address] [place] [address] Phone Care Team Providers Care Parachute Repairer Name Role Phone June Preston MD Unavailable Conchita Aden MD Primary Care Provider [phone] Encounter Details Date Type Department Care Team (Late st Contact Info) Description 02/10/2025 Scanned Document [facility] [address] [place] [address] Scanning, Generic Provider Social History Tobacco Use [...] from your doctor or pharmacy? Never 01/08/2025 [facility] Utilities Answer Date Recorded In the past 12 months has e [employer], oil, or water [employer] threatened to shut off services in your [...] week 01/08/2025 How often do you attend quaker or shinto serv ices? Patient declined 01/08/2025 Do you belong to any clubs o r organizations such as quaker groups, unions, fraternal or athletic groups, or [...] Health Questionnaire-2 Score 0 01/08/2025 [facility] - [...] place to sleep or slept in a alf (including now)? No 02/16/2024 Housing Stability Vital Sign Answer Mookie e Recorded In the last 12 months, was t here a time when you were not able to pay the mortgage or rent on time? No 01/08/2025 In the past 12 months, how m any times have you moved where you were living? 1 01/08/2025 At any time in the past 12 m [facility], were you homeless or living in a alf (including now)? No 01/08/2025 Comments No Sex [...] 9:30 AM EDT Hospital Encounter [facility] [address] [place] [address] [place] [address] Kervin Fair MD [address] [place] [address] Ventricular tachycardia (Multi) 04/14/2025 11:00 AM EDT - 04/14/2025 3:00 PM EDT Surgery [facility] [place] [address] [place] [address] [place] [address] Kervin Fair MD [address] [place] [address] [place] [[id number] (CPT )] 07/14/2025 1:00 PM EDT Office Visit [facility] 703 [facility] 250 [place] [address] Oscar Rodriguez MD 703 [facility] 2, [address] [place] [address] 09/26/2025 12:20 PM EST Appointment [facility] [address] [place] [address] 09/26/2025 1:00 PM EST Office Visit [facility] 125 [address] [facility] [address] [place] [address] June Preston MD 125 E [facility] Office [facility], [facility] [address] [place] [address] documented as of this encounter Procedures Procedure [...] documented as of this encounter Care Teams Parachute Repairer Relationship Specialty Start Date End Date Conchita Aden MD [address] [place] [address] [place] [address] PCP - General Family Medicine 11/11/24 June Preston MD 125 E [facility] Medical Office Bldg, [address] [place] [address] Bulk Driver Electrophysiology 09/13/24 documented as of this encounter
--- OUTSIDE RECORDS SUMMARY | 2025-04-10 18:59 | XMS_ITS | Encounter Summary ---
Author Organization [facility] Address [address] [place] [place] [address] Phone Care Team Providers Care Shot Core Drill Operator Name Role Phone Tremaine West DO Primary Care Provider Ania Brothers ASSISTANT THERAPY AIDE-PROGRAMMER ANALYST CONSULTANT Unavailable Unavailable June Preston MD Unavailable Sol Keita RINKMAN Unavailable [phone] June Preston MD Unavailable Oscar Rodriguez MD Unavailable [phone] Generic Provider, No Assigned Pcp Primary Car e Provider Unavailable Diane Min RN Unavailable Unavailable June Preston MD Unavailable Conchita Aden MD Primary Care Provider [phone] Diane Min RN Unavailable Unavailable Encounter Details Date Type Department Care Team (Late st Contact Info) Description 05/27/2022 Orders Only [facility] LE[facility] [address] [place] [address] Conversion, Onbase Social History Tobacco Use Types [...] EDT Hospital Encounter [facility] [place] [address] [facility] 35[address] [place] [address] Kervin Fair MD [address] [place] [address] Ventricular tachycardia (Multi) 04/14/2025 11:00 AM EDT - 04/14/2025 3:00 PM EDT Surgery [facility] [address] [facility] 35[address] [place] [address] Kervin Fair MD [address] [place], [place] [address] [place] [[id number] (CPT )] 07/14/2025 1:00 PM EDT Office Visit [facility] [address] [facility] 250 [place] [address] Oscar Rodriguez MD 703 [facility] 2, [address] [place] [address] 09/26/2025 12:20 PM EST Appointment [facility] [address] [place] [address] 09/26/2025 1:00 PM EST Office Visit [facility] 125 E [facility] 320 [place] [address] June Preston MD 125 [address] [facility] Office [facility], [facility] [address] [place] [address] Scheduled Orders Name Type Priority Associated Diagnoses [...] documented as of this encounter Care Teams Shot Core Drill Operator Relationship Specialty Start Date End Date Tremaine West DO 1610 [facility] Tremaine West [facility] 103 [place] [address] PCP - General 01/22/22 11/05/23 Generic Provider, No Assigned Pcp, [place] [address] PCP - General Wheel Shop Supervisor 08/08/24 11/10/24 Conchita Aden MD [address] [place] [address] PCP - General Family Medicine 11/11/24 Ania Brothers APRN-PROGRAMMER ANALYST CONSULTANT [address] [place] [address] [facility] 103 [place] [address] Nurse Practitioner Cardiology 09/30/23 02/16/24 June Preston MD 1610 [facility] Tremaine West [facility] 103 [place] [address] Commercial Illustrator Cardiology 09/30/23 02/16/24 Sol Keita, RINKMAN Aitchbone BreakerRestaurant Manager 02/19/24 05/17/24 June Prseton MD 125 E [facility] Medical [facility] Bl, [address] [place] [address] Consulting Physician Cardiology 02/19/24 02/29/24 Oscar Rodriguez MD 703 [facility] 2, [address] [place] [address] Consulting Physician Cardiology 02/19/24 02/29/24 Diane Min, pan greaserRestaurant Manager 09/05/24 12/06/24 June Preston MD [facility] [address] [place] [address] Commercial Illustrator Electrophysiology 09/13/24 Diane Min, pan greaserRestaurant Manager 01/16/25 01/31/25 documented as of this encounter
--- OUTSIDE RECORDS SUMMARY | 2025-04-10 18:59 | XMS_ITS | Encounter Summary ---
Author Organization [facility] Address [address] [place] [address] Phone Care Team Providers Care Network Security Officer Name Role Phone Tremaine West DO Primary Care Provider Ania Brothers SOCK EXAMINER-WEIGHT LOSS CONSULTANT Unavailable Unavailable June Preston MD Unavailable Sol Keita MULTIMEDIA ARTIST Unavailable [phone] June Preston MD Unavailable Oscar Rodriguez MD Unavailable [phone] Generic Provider, No Assigned Pcp Primary Car e Provider Unavailable Diane Min RN Unavailable Unavailable June Preston MD Unavailable Conchita Aden MD Primary Care Provider [phone] Diane Min RN Unavailable Unavailable Encounter Details Date Type Department Care Team (Late st Contact Info) Description 01/31/2021 Orders Only [facility] [address] [place] [address] Conversion, Onbase Social History Tobacco Use Types [...] Description 04/14/2025 9:30 AM EDT Hospital Encounter [facility] [place] [address] [facility] 35[address] [place] [address] Kervin Fair MD [address] [place], [place] [address] Ventricular tachycardia (Multi) 04/14/2025 11:00 AM EDT - 04/14/2025 3:00 PM EDT Surgery [facility] [place] [address] [facility] [address] [place] [address] Kervin Fair MD [address] [place], [place] [address] [place] [15235 (CPT )] 07/14/2025 1:00 PM EDT Office Visit [facility] 703 [facility] 250 [place] [address] Oscar Rodriguez MD 703 [facility] 2, [address] [place] [address] 09/26/2025 12:20 PM EST Appointment [facility] [address] [place] [address] 09/26/2025 1:00 PM EST Office Visit [facility] 125 E [facility] 320 [place] [address] June Preston MD 125 E [facility] Office [facility], [facility] 305 [place] [address] Scheduled Orders Name Type Priority Associated Diagnoses [...] as of this encounter Care Teams Network Security Officer Relationship Specialty Start Date End Date Tremaine West DO [address] [place] [address] Childerscristino, DO [address] [place] [address] PCP - General 01/22/22 11/05/23 Generic Provider, No Assigned Pcp, [place] [address] PCP - General Dental Therapist 08/08/24 11/10/24 Conchita Aden MD [address] [place] [address] PCP - General Family Medicine 11/11/24 Ania Brothers, SOCK EXAMINER-WEIGHT LOSS CONSULTANT 1610 [facility] Tremaine West, DO [address] [place] [address] Nurse Practitioner Cardiology 09/30/23 02/16/24 June Preston MD 1610 [facility] Tremaine Childersyukoezekiel DO [address] [place] [address] Pretzel Packer Cardiology 09/30/23 02/16/24 Sol Keita, MULTIMEDIA ARTIST Baby Registry Sales ConsultantClinical Lab Clerk 02/19/24 05/17/24 June Preston MD 125 E [facility], [address] [place] [address] Consulting Physician Cardiology 02/19/24 02/29/24 Oscar Rodriguez MD [address] [place] [address] 2, [address] [place] [address] Consulting Physician Cardiology 02/19/24 02/29/24 Diane Min, assembler garment formClinical Lab Clerk 09/05/24 12/06/24 June Preston MD 125 E [facility], [facility] 305 [place] [address] Pretzel Packer Electrophysiology 09/13/24 Diane Min, assembler garment formClinical Lab Clerk 01/16/25 01/31/25 documented as of this encounter
--- OUTSIDE RECORDS SUMMARY | 2025-04-10 18:59 | XMS_ITS | Encounter Summary ---
Author Organization [facility] Address [address] [place] [address] Phone Care Team Providers Care Director Of Critical Care Name Role Phone Tremaine West DO Primary Care Provider Ania Brothers WASH PLANT OPERATOR-BINDING FOLDER MACHINE Unavailable Unavailable June Preston MD Unavailable Sol Keita SCALES INSPECTOR Unavailable [phone] June Preston MD Unavailable Oscar Rodriguez MD Unavailable [phone] Generic Provider, No Assigned Pcp Primary Car e Provider Unavailable Diane Min RN Unavailable Unavailable June Preston MD Unavailable Conchita Aden MD Primary Care Provider [phone] Diane Min RN Unavailable Unavailable Encounter Details Date Type Department Care Team (Late st Contact Info) Description 08/15/2019 Orders Only [facility] LE[facility]Y [address] [place] [address] Conversion, Onbase Social History Tobacco Use Types [...] Hospital Encounter [facility] [place] [address] [place] [address] [place] [address] Kervin Fair MD [address] [place], [place] [address] Ventricular tachycardia (Multi) 04/14/2025 11:00 AM EDT - 04/14/2025 3:00 PM EDT Surgery [facility] [place] [address] [facility] 35[address] [place] [address] Kervin Fair MD [address] [place], [place] [address] [place] [24662 (CPT )] 07/14/2025 1:00 PM EDT Office Visit [facility] 703 [facility] 250 [place] [address] Oscar Rodriguez MD 3 [facility] 2, [address] [place] [address] 09/26/2025 12:20 PM EST Appointment [facility] [address] [place] [address] 09/26/2025 1:00 PM EST Office Visit [facility] 125 E [facility] 320 [place] [address] June Preston MD 125 E [facility] Medical Office [facility], [facility] [address] [place] [address] Scheduled Orders Name Type Priority Associated Diagnoses [...] as of this encounter Care Teams Director Of Critical Care Relationship Specialty Start Date End Date Tremaine West DO [address] [place] Amor West, DO [address] [place] [address] PCP - General 01/22/22 11/05/23 Generic Provider, No Assigned Pcp, [place] [address] PCP - General Logging Worker 08/08/24 11/10/24 Conchita Aden MD [address] [place] [address] [place] [address] PCP - General Family Medicine 11/11/24 Ania Brothers, WASH PLANT OPERATOR-BINDING FOLDER MACHINE [address] Am[address] [place], [facility] 103 [place] [address] Nurse Practitioner Cardiology 09/30/23 02/16/24 June Preston MD [address] [facility] Tremaine West [facility] 103 [place] [address] Physical Director Cardiology 09/30/23 02/16/24 Sol Keita, SCALES INSPECTOR Belt NotcherAutomotive Product Specialist 02/19/24 05/17/24 June Preston MD 125 E [facility], [address] [place] [address] Consulting Physician Cardiology 02/19/24 02/29/24 Oscar Rodriguez MD [address] [place] [address] 2, [address] [place] [address] Consulting Physician Cardiology 02/19/24 02/29/24 Diane Min, knifemanAutomotive Product Specialist 09/05/24 12/06/24 June Preston MD 125 E [facility] Medical Counts Include [address] [facility], [address] [place] [address] Physical Director Electrophysiology 09/13/24 Diane Min, knifemanAutomotive Product Specialist 01/16/25 01/31/25 documented as of this encounter
--- OUTSIDE RECORDS SUMMARY | 2025-04-10 18:59 | XMS_ITS | Encounter Summary ---
Author Organization [facility] Address [address] [place] [address] Care Team Providers Care Remelt Furnace Expediter Name Role Phone Conchita Aden MD Primary Care Provider [phone] Encounter Details Date Type Department Care Team (Late Contact Info) Description 10/22/2024 Abstract [facility] OB [address] [place] [id number] David Ewing, DO [address] [facility] [address] Sven Obando, [facility] Social History Tobacco Use Types Packs/Day Years [...] on filedocumented in this encounter Care Teams Remelt Furnace Expediter Relationship Specialty Start Date End Date Conchita Aden MD PCP - General Family Medicine 11/07/24 documented as of this encounter
--- OUTSIDE RECORDS SUMMARY | 2025-04-10 18:59 | XMS_ITS | Encounter Summary ---
Author Organization [facility] Address [address] [place] [address] Care Team Providers Care Magician Helper Name Role Phone Conchita Aden MD Primary Care Provider [phone] Encounter Details Date Type Department Care Team (Late st Contact Info) Description 06/29/2023 External Result Encounter [facility] External Department Unsolicited Steve Combs, DO [address] [facility] [address] [place] [address] Social History Tobacco Use Types Packs/Day Years [...] Gerber Moreno M.D.06/29/2023 3:14 PM Dictation Location: [place] [address] Transcribed By: [facility] 06/29/23 1514 Dictated By: Gerber Moreno II, MD 06/29/23 1500 Signed By: <Electronically signed by Gerber Moreno II, MD in OV> 06/29/23 1514 Narrative 06/29/2023 3:36 PM EDT [facility] Main [place] [address] [place] [address] MRI Report Signed Patient: Latanya Martinez MR#: [id number] : 1960 Acct:[id number] Age/Sex: 62 / F ADM Date: 06/29/23 Loc: Room: Type: [facility] Attending Dr: Steve Combs DO Copies to: DO Darcie Draper MD, RES Ordering Provider: Steve Combs DO; Darcie Garcia MD, RES Date of Service: 06/29/23 MR/MR lumbar spine wo/w con: Other intervertebral disc degeneration, lumbar region;Spondy ([id number]) XR/XR pre/post mri xray: M51.36,M43.16 MR lumbar [...] Procedure Note Radiology, Radiologist, MD - 06/29/2023 [facility] Main [place] [address] [place] [address] MRI Report Signed Patient: Latanya Martinez AMR#: [id number] : 1960cct:[id number] Age/Sex: 62 / FADM Date: 06/29/23 Loc: Room:Type: [facility] Attending Dr: Steve Combs DO Copies to: DO Darcie Draper MD, RES Ordering Provider: Steve Combs DO; Darcie Garcia MD, RES Date of Service: 06/29/23 MR/MR lumbar spine wo/w con: Otherintervertebral disc degeneration, lumbar region;Spondy ([id number]) XR/XR pre/post mri xray: M51.36,M43.16 MR lumbar [...] and L4-5. The conus terminates at the L1-W1ejygxtycyoyjmp disc level. No epidural or paraspinous fluid [...] mild mass effect on the exiting left O3rkoho roots. This are also present. No significant spinal canal stenosis. At L5-S1: There is a normal disc, central canal, and neural foramen. MR/MR lumbar spine wo/w con IMPRESSION: At L4-L5: There is a focal left foraminal disc extrusion contributing tomoderate to severe left neural foraminal narrowing with mild mass effect on the exiting left F9byivj roots. This are also present. No significant [...] Gerber Moreno M.D.06/29/2023 3:14 PM Dictation Location: [place] [address] Transcribed By: [facility] 06/29/23 1514 Dictated By: Gerber Moreno II, MD 06/29/23 1500 Signed By: <Electronically signed by Gerber Moreno II, MD inOV> 06/29/23 1514 Steve Combs DO IMG MRI PROCEDURES Final Result documented in this encounter Visit Diagnoses Not on filedocumented in this encounter Care Teams Magician Helper Relationship Specialty Start Date End Date Conchita Aden MD PCP - General Family Medicine 11/07/24 documented as of this encounter
--- OUTSIDE RECORDS SUMMARY | 2025-04-10 18:59 | XMS_ITS | Encounter Summary ---
Author Organization [facility] Address [address] [place] [address] Care Team Providers Care Business Reporting Developer Name Role Phone Conchita Aden MD Primary Care Provider [phone] Encounter Details Date Type Department Care Team (Late st Contact Info) Description 03/26/2025 External Result Encounter [facility] External Department Unsolicited Lorrie Winn MD [address] [facility] [address] [place] [address] Social History Tobacco Use Types Packs/Day Years [...] 38.1 03/29/2025 3:36 AM EDT [facility] Comment: [facility] Electrochemiluminescence Immunoassay (ECLIA) Values obtained with different assay methods or kits cannot be used interchangeably. Results cannot be interpreted as absolute evidence of the presence or absence of malignant disease. Performed at: [address] [id number] Table Worker Packager: Jose Damon PhD, Phone: [phone] Other Topography unknown / Unknown 03/26/2025 5:52 PM EDT 03/26/2025 6:10 PM EDT us Lorrie Winn MD LAB BLOOD ORDERABLES Final Res ult [facility] [address] [place] [address], documented in this encounter Visit Diagnoses Not on filedocumented in this encounter Care Teams Business Reporting Developer Relationship Specialty Start Date End Date Conchita Aden MD PCP - General Family Medicine 11/07/24 documented as of this encounter
--- OUTSIDE RECORDS SUMMARY | 2025-04-10 18:59 | XMS_ITS | Clinical Summary ---
Author Organization [facility] Address [address] [place] [address] Care Team Providers Care Marble Setter Name Role Phone Conchita Aden MD Primary Care Provider [phone] Allergies No known active allergies Medications oxybutynin [...] Moreno M.D. 03/27/2025 11:14 AM Dictation Location: [place] [address] Tech: Le Millan Transcribed By: KATHLEEN 03/27/25 1114 Dictated By: Gerber Moreno II, MD 03/27/25 1111 Signed By: <Electronically signed by Gerber Moreno II, MD in OV> 03/27/25 1114 Narrative 03/27/2025 11:16 AM EDT [facility] Main [place] [address] [place] [address] Ultrasound Report Signed Patient: Latanya Martinez MR#: [id number] 950 : 1960 Acct:[id number] Age/Sex: 64 / F ADM Date: 03/26/25 Loc: Room: [address] [place] [address] Type: ADM IN Attending Dr: Yonis Covington [...] MD - 03/27/2025 [facility] Main [place] [address] [place] [address] Ultrasound Report Signed Patient: Latanya Martinez AMR#: [id number] : 1Acct:[id number] Age/Sex: 64 / FADM Date: 03/26/25 Loc: Room: [id number]: ADM IN Attending Dr: Yonis Covington DO [...] Moreno M.D. 03/27/2025 11:14 AM Dictation Location: [place] [address] Tech: Le Millan Transcribed By: PWS 03/27/25 1114 Dictated By: Gerber Moreno II, MD 03/27/25 1111 Signed By: <Electronically signed by Gerber Moreno II, MD inOV> 03/27/25 1114 us Lorrie Winn MD IMG US PROCEDURES Final Result * CARCINOEMBRYONIC ANTIGEN (03/26/2025 5:52 PM EDT) CARCINOEMBRYONIC ANTIGEN 1.4 0.0 - 3.0 ng/mL 03/26/2025 6:49 PM EDT [facility] Comment: Serial tumor marker results determined by assays using different manufacturers or methods may not be comparable. On License Of [facility] Laboratory chief radiologic technologist and method: SAEED UNICEL DXI, 2 SITE IMMUNOENZYMATIC S ANDWICH ASSAY. Other Topography unknown / Unknown 03/26/2025 5:52 PM EDT 03/26/2025 6:10 PM EDT us Lorrie Winn MD LAB BLOOD ORDERABLES Final Res ult [facility] [address] [place] [address], [facility] [address] [place] [address] * [place] 125 (03/26/2025 5:52 PM EDT) CANCER ANTIGEN 125 10.3 0.0 - 38.1 03/29/2025 3:36 AM EDT [facility] Comment: [facility] Electrochemiluminescence Immunoassay (ECLIA) Values obtained with different assay methods or kits cannot be used interchangeably. Results cannot be interpreted as absolute evidence of the presence or absence of malignant disease. Performed at: [address] [id number] Comb Winder: Jose Damon PhD, Phone: [phone] Other Topography unknown / Unknown 03/26/2025 5:52 PM EDT 03/26/2025 6:10 PM EDT us Lorrie Winn MD LAB BLOOD ORDERABLES Final Res ult [facility] [address] [place] [address], from Last 3 Months Insurance [employer] Care Teams Marble Setter Relationship Specialty Start Date End Date Conchita Aden MD PCP - General Family Medicine 11/07/24
--- OUTSIDE RECORDS SUMMARY | 2025-04-10 18:59 | XMS_ITS | Encounter Summary ---
Author Organization [facility] Address [address] [place] [address] Phone Care Team Providers Care Travel Manager Name Role Phone Tremaine West DO Primary Care Provider Ania [employer] SHEEP AND WHEAT FARMER-SUPERVISOR TRANSFERRING AND BOXING Unavailable Unavailable June Preston MD Unavailable Sol Keita SURGICAL DEVICE SALES REPRESENTATIVE Unavailable [phone] June Preston MD Unavailable Oscar Rodriguez MD Unavailable [phone] Generic Provider, No Assigned Pcp Primary Car e Provider Unavailable Diane Min RN Unavailable Unavailable June Preston MD Unavailable Conchita Aden MD Primary Care Provider [phone] Diane Min RN Unavailable Unavailable Encounter Details Date Type Department Care Team (Late st Contact Info) Description 09/08/2019 Orders Only [facility] [address] [place] [address] Conversion, Onbase Social History Tobacco Use Types [...] EDT Hospital Encounter [facility] [place] [address] [place] [address] Kervin Fair MD [address] [place], [place] [id number] Ventricular tachycardia (Multi) 04/14/2025 11:00 AM EDT - 04/14/2025 3:00 PM EDT Surgery [facility] [place] [address] [facility] [address] [place] [address] Kervin Fair MD [address] [place], [place] [address] [place] [13533 (CPT )] 07/14/2025 1:00 PM EDT Office Visit [facility] 703 [facility] 250 [place] [address] Oscar Rodriguez MD 3 [facility] 2, Steve [address] [place] [address] 09/26/2025 12:20 PM EST Appointment [facility] [address] [place] [address] 09/26/2025 1:00 PM EST Office Visit [facility] [address] [facility] [address] [place] [address] June Preston MD 125 [address] [facility] Medical Office [facility], [facility] [address] [place] [address] Scheduled Orders Name Type Priority Associated Diagnoses [...] as of this encounter Care Teams Travel Manager Relationship Specialty Start Date End Date Tremaine West DO [address], DO [address] [place] [address] PCP - General 01/22/22 11/05/23 Generic Provider, No Assigned Pcp, [place] [address] PCP - General Nurse Aide Evaluator 08/08/24 11/10/24 Conchita Aden MD [address] [place] [address] PCP - General Family Medicine 11/11/24 Ania Brothers, SHEEP AND WHEAT FARMER-SUPERVISOR TRANSFERRING AND BOXING 1610 [facility] Tremaine West, DO Steve [address] [place] [address] Nurse Practitioner Cardiology 09/30/23 02/16/24 June Preston MD 1610 [facility] Tremaine West DO Steve [address] [place] [address] Oil Painter Cardiology 09/30/23 02/16/24 Sol Keita, SURGICAL DEVICE SALES REPRESENTATIVE Hydrometer CalibratorPapier Mache Molder 02/19/24 05/17/24 June Preston MD 125 E [facility], Steve [address] [place] [address] Consulting Physician Cardiology 02/19/24 02/29/24 Oscar Rodriguez MD [address] [place] [address] 2, [address] [place] [address] Consulting Physician Cardiology 02/19/24 02/29/24 Diane Min, reproduction technicianPapier Mache Molder 09/05/24 12/06/24 June Preston MD [address] [facility] [address], [address] [place] [address] Oil Painter Electrophysiology 09/13/24 Diane Min, reproduction technicianPapier Mache Molder 01/16/25 01/31/25 documented as of this encounter
--- OUTSIDE RECORDS SUMMARY | 2025-04-10 18:59 | XMS_ITS | Encounter Summary ---
Author Organization [facility] Address [address] [place] [address] Phone Care Team Providers Care Tableau Report Developer Name Role Phone Tremaine West DO Primary Care Provider Ania [employer] BALLET COMPANY MEMBER-BILLET STRAIGHTENER Unavailable Unavailable June Preston MD Unavailable Sol Keita DITCH INSPECTOR Unavailable [phone] June Preston MD Unavailable Oscar Rodriguez MD Unavailable [phone] Generic Provider, No Assigned Pcp Primary Car e Provider Unavailable Diane Min RN Unavailable Unavailable June Preston MD Unavailable Conchita Aden MD Primary Care Provider Diane Min RN Unavailable Unavailable Encounter Details Date Type Department Care Team (Late st Contact Info) Description 07/04/2020 Orders Only [facility] [address] [place] [address] Conversion, Onbase Social History Tobacco Use Types [...] Encounter [facility] [place] [address] [place] [address] [place] [address] Kervin Fair MD [address] [place], [place] [address] Ventricular tachycardia (Multi) 04/14/2025 11:00 AM EDT - 04/14/2025 3:00 PM EDT Surgery [facility] [place] [address] [facility] 35[address] [place] [address] Kervin Fair MD [address] [place], [place] [id number] [place] [15842 (CPT )] 07/14/2025 1:00 PM EDT Office Visit [facility] 703 [facility] 250 [place] [address] Oscar Rodriguez MD 3 [facility] 2, [address] [place] [address] 09/26/2025 12:20 PM EST Appointment [facility] [address] [place] [address] 09/26/2025 1:00 PM EST Office Visit [facility] 125 [address] [facility] [address] [place] [address] June Preston MD 125 [address] [facility] Medical Office [facility], [facility] 305 [place] [address] Scheduled Orders Name Type Priority Associated Diagnoses [...] documented as of this encounter Care Teams Tableau Report Developer Relationship Specialty Start Date End Date Tremaine West DO [address], DO Steev [address] [place] [address] PCP - General 01/22/22 11/05/23 Generic Provider, No Assigned Pcp, [place] [address] PCP - General Dye House Wheel Operator 08/08/24 11/10/24 Conhcita Aden MD [address] [place] [address] PCP - General Family Medicine 11/11/24 Ania Brothers, BALLET COMPANY MEMBER-BILLET STRAIGHTENER 1610 [facility] Tremaine West, DO Steve [address] [place] [address] Nurse Practitioner Cardiology 09/30/23 02/16/24 June Preston MD 1610 [facility] Tremaine West DO Steve [address] [place] [address] Metal Stud Framer Cardiology 09/30/23 02/16/24 Sol Keita, DITCH INSPECTOR [employer] DeveloperData Storage Specialist 02/19/24 05/17/24 June Preston MD 125 [address] [facility], Steve [address] [place] [address] Consulting Physician Cardiology 02/19/24 02/29/24 Oscar Rodriguez MD [address] [place] [address] 2, [address] [place] [address] Consulting Physician Cardiology 02/19/24 02/29/24 Diane Min, dry cure workerData Storage Specialist 09/05/24 12/06/24 June Preston MD [address] [facility] [address], [address] [place] [address] Metal Stud Framer Electrophysiology 09/13/24 Diane Min, dry cure workerData Storage Specialist 01/16/25 01/31/25 documented as of this encounter
--- OUTSIDE RECORDS SUMMARY | 2025-04-10 18:59 | XMS_ITS | Encounter Summary ---
Author Organization [facility] Address [address] [place] [address] Phone Care Team Providers Care Hat And Cap Parts Cutter Hand Name Role Phone Tremaine West DO Primary Care Provider [employer]ia [employer] BRANCH CONTROLLER-CLINIC SCHEDULER Unavailable Unavailable June Preston MD Unavailable Sol Keita NURSING UNIT COORDINATOR Unavailable [phone] June Preston MD Unavailable Oscar Rodriguez MD Unavailable [phone] Generic Provider, No Assigned Pcp Primary Car e Provider Unavailable Diane Min RN Unavailable Unavailable June Preston MD Unavailable Conchita Aden MD Primary Care Provider [phone] Diaen Min RN Unavailable Unavailable Encounter Details Date Type Department Care Team (Late st Contact Info) Description 11/20/2020 Orders Only [facility] [address] [place] [address] Conversion, Onbase Social History Tobacco Use Types [...] Description 04/14/2025 9:30 AM EDT Hospital Encounter [facility] [place] [address] [facility] 35[address] [place] [address] Kervin Fair MD [address] [place], [place] [address] Ventricular tachycardia (Multi) 04/14/2025 11:00 AM EDT - 04/14/2025 3:00 PM EDT Surgery [facility] [place] [address] [facility] 35[address] [place] [address] Kervin Fair MD [address] [place], [place] [address] [place] [[address] (CPT )] 07/14/2025 1:00 PM EDT Office Visit [facility] 703 [facility] 250 [place] [address] Oscar Rodriguez MD 703 [facility] 2, [address] [place] [address] 09/26/2025 12:20 PM EST Appointment [facility] [address] [place] [address] 09/26/2025 1:00 PM EST Office Visit [facility] 125 E [facility] 320 [place] [address] June Preston MD 125 E [facility] Hospital Office [facility], [facility] 305 [place] [address] Scheduled Orders Name Type Priority Associated Diagnoses [...] documented as of this encounter Care Teams Hat And Cap Parts Cutter Hand Relationship Specialty Start Date End Date Tremaine West DO [address] Childerscristino, DO Steve [address] [place] [address] PCP - General 01/22/22 11/05/23 Generic Provider, No Assigned [place]cp, [place] [address] PCP - General System Support Technician 08/08/24 11/10/24 Conchita Aden MD [address] [place] [address] PCP - General Family Medicine 11/11/24 Ania Brothers, BRANCH CONTROLLER-CLINIC SCHEDULER 1610 [facility] Tremaine West, DO Steve [address] [place] [address] Nurse Practitioner Cardiology 09/30/23 02/16/24 June Preston MD 1610 [facility] Tremaine Childersyukoezekiel DO Steve [address] [place] [address] Fish Filleter Cardiology 09/30/23 02/16/24 Sol Keita, NURSING UNIT COORDINATOR Supercharger MechanicWrecking Crane Engine Operator 02/19/24 05/17/24 June Preston MD 125 [address] [facility], Steve [address] [place] [address] Consulting Physician Cardiology 02/19/24 02/29/24 Oscar Rodriguez MD [address] [place] [address] 2, [address] [place] [address] Consulting Physician Cardiology 02/19/24 02/29/24 Diane Min, office assistant receptionistWrecking Crane Engine Operator 09/05/24 12/06/24 June Preston MD [address] [facility], [facility] [address] [place] [address] Fish Filleter Electrophysiology 09/13/24 Diane Min, office assistant receptionistWrecking Crane Engine Operator 01/16/25 01/31/25 documented as of this encounter
--- OUTSIDE RECORDS SUMMARY | 2025-04-10 18:59 | XMS_ITS | Encounter Summary ---
Author Organization [facility] Address [address] [place] [address] Phone Care Team Providers Care Biometrician Name Role Phone Bossman Sol Oscar HOPPER Unavailable June Preston MD Unavailable Oscar Rodriguez MD Unavailable [phone] Generic Provider, No Assigned Pcp Primary Car e Provider Unavailable Diane Min RN Unavailable Unavailable June Preston MD Unavailable Conchita Aden MD Primary Care Provider [phone] Diane Min RN Unavailable Unavailable Encounter Details Date Type Department Care Team (Late st Contact Info) Description 02/19/2024 Scanned Document [facility] [address] [place] [address] Scanning, Generic Provider Social History Tobacco Use [...] EDT Hospital Encounter [facility] [place] [address] [facility]9 [place] [address] Kervin Fair MD [address] [place] [address] Ventricular tachycardia (Multi) 04/14/2025 11:00 AM EDT - 04/14/2025 3:00 PM EDT Surgery [facility] [place] [address] [place] [address] Kervin Fair MD [address] [place] [address] [place] [[address] (CPT )] 07/14/2025 1:00 PM EDT Office Visit [facility] 703 [facility] [address] [place] [address] Oscar Rodriguez MD 703 [facility] 2, [address] [place] [address] 09/26/2025 12:20 PM EST Appointment [facility] [address] [place] [facility] [place] [address] 09/26/2025 1:00 PM EST Office Visit [facility] 125 [address] [facility] [address] [place] [address] June Preston MD 125 E [facility] Medical Office Bl, Steve [address] [place] [address] documented as of this encounter Visit Diagnoses [...] documented as of this encounter Care Teams Biometrician Relationship Specialty Start Date End Date Generic Provider, [place] [address] PCP - General Data Compiler 08/08/24 11/10/24 Conchita Aden MD [facility]5 [place] [address] PCP - General Family Medicine 11/11/24 Sol Keita, SCIENCE FACULTY MEMBER Apprentice Painter BrushCarton Folder 02/19/24 05/17/24 June Preston MD 125 E [facility], [address] [place] [address] Consulting Physician Cardiology 02/19/24 02/29/24 Oscar Rodriguez MD [address] [place] [address] 2, Steve [address] [place] [address] Consulting Physician Cardiology 02/19/24 02/29/24 Diane Min RN Care Carton Folder 09/05/24 12/06/24 June Preston MD 125 [address] [facility], Steve [address] [place] [address] Canvas Shop Laborer Electrophysiology 09/13/24 Diane Min, grain handlerCarton Folder 01/16/25 01/31/25 documented as of this encounter
--- OUTSIDE RECORDS SUMMARY | 2025-04-10 18:59 | XMS_ITS | Clinical Summary ---
Author Organization [employer] Commerce tem Address [id number] [address] [place] [address] Care Team Providers Care Program Support Specialist Name Role Phone Unavailable Primary Care [...] 2 diabetes mellitus 1 11/30/2022 Atherosclerosis of [place] co ronary artery of [place] heart without angina pectoris 07/29/2023 Chronic obstructive pulmonary disease 07/29/2023 Chronic systolic CHF (congestive heart failure) 07/29/2023 Current every day smoker 07/29/2023 Essential hypertension 07/29/2023 Intermittent claudication 07/29/2023 Pulmonary embolism 07/29/2023 Type 2 diabetes mellitus 07/29/2023 Gastroesophageal reflux disease without esophagi tis 11/25/2021 Vascular insufficiency of intestine 04/09/2015 Encounters Date Type Department Care Team Description 03/01/2025 Telephone [facility] Gynecology Oncology, A Department of [facility] [address] [place] [address] Charlotte Garcia RN 02/22/2025 Telephone [facility] Gynecology Oncology, A Department of [facility] [address] [place] [address] Charlotte Garcia, PAULA from Last 3 Months [...] egative 12/01/2024 2:25 PM EST [facility] Hpv 18 Negative Negative^N egative 12/01/2024 2:25 PM EST [facility] Other high risk hpv Negative Negative^N egative 12/01/2024 2:25 PM EST [facility] Comment: HPV types 31,33,35,39,45,52,56,58,59,66 and 68 DNA were undetectable. THINP 11/29/2024 3:43 AM EST 12/01/2024 3:44 AM EST us Nanci Mcallister MD LAB BLOOD ORDERABLES Final Resul t [place] [facility] [address], [address] [place] [address] from Last 3 Months or Most Recently Relevant to Health Maintenance Insurance MEDICAID [place] MEDICARE
--- OUTSIDE RECORDS SUMMARY | 2025-04-10 18:59 | XMS_ITS | Encounter Summary ---
Author Organization [facility] Address [address] [place] [address] Phone Care Team Providers Care Buffet Runner Name Role Phone Tremaine West DO Primary Care Provider Ania Brothers LEGAL NURSE CONSULTANT-VENDING MACHINE SERVICER Unavailable Unavailable June Preston MD Unavailable Sol Keita MRI SUPERVISOR Unavailable [phone] June Preston MD Unavailable Oscar Rodriguez MD Unavailable [phone] Generic Provider, No Assigned Pcp Primary Car e Provider Unavailable Diane Min RN Unavailable Unavailable June Preston MD Unavailable Conchita Aden MD Primary Care Provider [phone] Diane Min RN Unavailable Unavailable Encounter Details Date Type Department Care Team (Late st Contact Info) Description 08/20/2020 Orders Only [facility] [address] [place] [address] Conversion, Onbase Social History Tobacco Use Types [...] Hospital Encounter [facility] [place] [address] [place] [address] [place] [phone] Kervin Fair MD [address] [place], [place] [id number] Ventricular tachycardia (Multi) 04/14/2025 11:00 AM EDT - 04/14/2025 3:00 PM EDT Surgery [facility] [place] [address] [facility] [address] [place] [phone] Kervin Fair MD [address] [place], [place] [id number] [place] [[id number] (CPT )] 07/14/2025 1:00 PM EDT Office Visit [facility] [address] [facility] [address] [place] [address] Oscar Rodriguez MD 3 [facility] 2, [address] [place] [address] 09/26/2025 12:20 PM EST Appointment [facility] [address] [place] [address] 09/26/2025 1:00 PM EST Office Visit [facility] [address] [facility] [address] [place] [address] June Preston MD [address] [facility] Medical Office [facility] [address] [place] [address] Scheduled Orders Name Type Priority Associated Diagnoses [...] documented as of this encounter Care Teams Buffet Runner Relationship Specialty Start Date End Date Tremaine West DO [address] Amor West, DO [address] [place] [address] PCP - General 01/22/22 11/05/23 Generic Provider, No Assigned Pcp, [place] [address] PCP - General Digital Content Manager 08/08/24 11/10/24 Conchita Aden MD [address] [place] [address] PCP - General Family Medicine 11/11/24 Ania Brothers, LEGAL NURSE CONSULTANT-VENDING MACHINE SERVICER [address] [facility] Tremaine West, DO [address] [place] [address] Nurse Practitioner Cardiology 09/30/23 02/16/24 June Preston MD [address] [facility] Tremaine West DO [address] [place] [address] Postal Superintendent Cardiology 09/30/23 02/16/24 Sol Keita, MRI SUPERVISOR Die DesignerHealth Information Technologist 02/19/24 05/17/24 June Preston MD [address] [facility], [address] [place] [address] Consulting Physician Cardiology 02/19/24 02/29/24 Oscar Rodriguez MD [address] [place] [address] [address] [place] [address] Consulting Physician Cardiology 02/19/24 02/29/24 Diane Min, monotype operatorHealth Information Technologist 09/05/24 12/06/24 June Preston MD [address] [facility] [address] [place] [address] Postal Superintendent Electrophysiology 09/13/24 Diane Min, monotype operatorHealth Information Technologist 01/16/25 01/31/25 documented as of this encounter
--- OUTSIDE RECORDS SUMMARY | 2025-04-10 18:59 | XMS_ITS | Encounter Summary ---
Author Organization [facility] Address [address] [place] [address] Care Team Providers Care Wallet Assembler Name Role Phone Conchita Aden MD Primary Care Provider [phone] Encounter Details Date Type Department Care Team (Late Contact Info) Description 10/22/2024 Abstract [facility] OB [address] [facility] [place] [phone] David Ewing, DO [address] [facility] [address] [place], [facility] Social History Tobacco Use Types Packs/Day Years [...] on filedocumented in this encounter Care Teams Wallet Assembler Relationship Specialty Start Date End Date Conchita Aden MD PCP - General Family Medicine 11/07/24 documented as of this encounter
--- OUTSIDE RECORDS SUMMARY | 2025-04-10 18:59 | XMS_ITS | Clinical Summary ---
Author Organization [facility] Address [address] 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 90 tablet 3 5 11/11/19 Active spironolactone (Aldactone) 25 mg tabletIndications:E ssential hypertension Take 1 tablet (25 mg) by mouth once daily. 90 tablet 3 5 11/15/19 Active Invokana 300 mgIndications:Type 2 diabetes mellitus without complication, without long-term current use of insulin,Atheroscler osis of iliamna coronary artery of iliamna heart without angina pectoris,Chronic systolic CHF (congestive heart failure) Take 1 tablet (300 mg) by mouth once daily in the morning. Take before meals. 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 [...] - 04/03/2025 11:59 PM EDT Hospital Encounter [facility] [address] [place] [address] Ventricular tachycardia (CMS/HCC); Abnormal result of cardiovascular function study, unspecified Discharge Disposition: Home 04/03/2025 Travel 03/09/2025 9:35 AM EDT - 03/09/2025 11:59 PM EDT Hospital Encounter [facility] [address] [place] [address] ICD (implantable cardioverter-defibril lator) in place; Paroxysmal ventricular tachycardia Discharge Disposition: Home 02/21/2025 Orders Only [facility] [address] [place] [address] Kervin Deshpande MD Chronic systolic CHF (congestive heart failure) (Primary Dx) 02/10/2025 Scanned Document [facility] [address] [place] [address] Scanning, Generic Provider 02/07/2025 11:30 AM EDT Office Visit [facility] [address] [place] [address] Kervin Deshpande MD Ventricular tachycardia (Multi); ICD (implantable cardioverter-defibril lator) in place 02/07/2025 Travel 01/24/2025 Refill [facility] [address] [place] [address] Dia Lao, PRESS OPERATOR [employer] ICD (implantable cardioverter-defibril lator) discharge; Paroxysmal ventricular tachycardia (Multi) 01/19/2025 Telephone [facility] [address] [place] [address] Kervin Deshpande MD 01/16/2025 Patient [facility] [address] [place] [address] Diane Min, RN 01/12/2025 [facility] [address] [place] [address] Kervin Deshpande MD 01/09/2025 7:20 AM EDT - 01/09/2025 11:59 PM EDT Hospital Encounter [facility] [address] [place] [address] Ventricular tachycardia (Multi) Discharge Disposition: Home 01/08/2025 7:01 PM EDT - 01/14/2025 12:51 PM EDT Hospital Encounter [facility] 8 Cardiac Intensive Care [address] [place] [facility] [place] [address] Otis Chappell, Yonis Manuel MD Sehgal, MD Halie Fields Tahereh, MD Kaniecki, Dani Romero, WIRE PREPARATION MACHINE TENDER-RN NEONATAL, DNP ICD (implantable cardioverter-defibril lator) discharge (Primary [...] from your doctor or pharmacy? Never 01/08/2025 [facility] Utilities Answer Date Recorded In the past 12 months has e [employer], oil, or water [employer] threatened to shut off services in your [...] week 01/08/2025 How often do you attend hoahaoism or scientology serv ices? Patient declined 01/08/2025 Do you belong to any clubs o r organizations such as hoahaoism groups, unions, fraternal or athletic groups, or [...] Recorded Patient Health Questionnaire-2 Score 0 01/08/2025 [facility] [...] to sleep or slept in a senior living (including now)? No 02/16/2024 Housing Stability Vital [...] you homeless or living in a senior living (including now)? No 01/08/2025 Comments No Sex [...] 04/14/2025 9:30 AM EDT Hospital Encounter [facility] [place] [address] [place] [address] [place] [address] Kervin Deshpande MD [address] [place] [address] Ventricular tachycardia (Multi) 04/14/2025 11:00 AM EDT - 04/14/2025 3:00 PM EDT Surgery [facility] [place] [address] [facility] [address] [place] [phone] Kervin Deshpande MD [address] [place] [address] [place] [[address] (CPT )] 07/14/2025 1:00 PM EDT Office Visit [facility] [address] [facility] [address] [place] [address] Oscar Rodriguez [facility] [address] [facility] [place] [address] 09/26/2025 12:20 PM EST Appointment [facility] [address] [place] [address] 09/26/2025 1:00 PM EST Office Visit [facility] [address] [facility] [address] [place] [address] June Preston MD [address] [facility] Office [address]ldg, [address] [place] [address] Health Maintenance Due Date Last Done Comments [...] this topic Medical Devices Implanted Type Area Needle Punch Machine Operator Device Identifier Shelf Expiration Date Model [...] Anand Baugh 04/04/2025 1:16 AM Dictation workstation: [id number] Narrative 04/04/2025 1:16 AM EDT Interpreted By: Anand Baugh and Okyere Robert STUDY: CT HEART STRUCTURE MORPHOLOGY W IV CONTRAST; 04/03/2025 1:36 pm INDICATION: Signs/Symptoms:For Ventricular Tachycardia ablation planning; late iodine enhancement CT scan; inHeart protocol; must be done at [facility]. COMPARISON: None. ACCESSION NUMBER(S): [id number] ORDERING CLINICIAN: KERVIN DESHPANDE TECHNIQUE: Using multi-detector [...] about 25-50% luminal stenosis which fills via [id number] collaterals. CARDIAC CHAMBERS: The cardiac chambers demonstrate [...] scan; inHeart protocol; must be done at [facility]. COMPARISON: None. ACCESSION NUMBER(S): [id number] ORDERING CLINICIAN: KERVIN DESHPANDE TECHNIQUE: Using multi-detector [...] about 25-50% luminal stenosis which fills via [id number] collaterals. CARDIAC CHAMBERS: The cardiac chambers demonstrate [...] Anand Baugh 04/04/2025 1:16 AM Dictation workstation: [id number] Kervin Deshpande MD Jeanne CT PROCEDURES Final Result * CARDIAC DEVICE CHECK - REMOTE - ICD (03/09/2025 9:38 AM EDT) Only the most recent of2 resultswithin the time period is included. Anatomical Region Laterality Modality Monitor/Device 03/09/2025 6:00 AM EDT us June Preston MD CV IMPLANTABLE CARDIAC DEVICE LA OCEDURES Final Result * Nuclear Stress Test [...] POCT GLUCOSE (01/14/2025 10:38 AM EDT) Pathologist [facility] POCT Glucose 90 74 - 99 mg/dL 01/14/2025 10:40 AM EDT [facility] Blood Capillary blood specimen / Unknown 01/14/2025 10:38 AM EDT 01/14/2025 10:40 AM EDT us Gayle Max MD LAB POINT OF CAR E TEST DOCKED DEVICE UNSOLICITED RESULTS Final Result Performing Organization Address City/[facility]/ZIP Co de Phone Number [facility] [address] [place] [address] * (ABNORMAL) POCT GLUCOSE (01/14/2025 6:29 AM EDT) POCT Glucose 100(H) 74 - 99 mg/dL 01/14/2025 6:31 AM EDT [facility] Blood Capillary blood specimen / Unknown 01/14/2025 6:29 AM EDT 01/14/2025 6:31 AM EDT Gayle Max MD LAB POINT OF CAR E TEST DOCKED DEVICE UNSOLICITED RESULTS Final Result Performing Organization Address City/[facility]/ZIP Co de Phone Number [facility] [address] [place] [address] * Phosphorus (01/14/2025 5:22 AM EDT) Only the most recent of7 resultswithin the time period is included. [facility] Phosphorus 3.1 2.5 - 4.9 mg/dL LAB CHEMISTRY METHOD 01/14/2025 6:34 AM EDT [facility] Comment:The performance selena acteristics of [...] LAB BLOOD ORDERABLES Final Result [facility] [address] [place] [address] * (ABNORMAL) Magnesium (01/14/2025 5:22 AM EDT) Only the most recent of7 resultswithin the time period is included. Magnesium 1.55(L) 1.60 - 2.40 mg/dL LAB CHEMISTRY METHOD 01/14/2025 6:34 AM EDT [facility] Blood Venous blood specimen / Unknown Venipuncture / Unknown 01/14/2025 5:22 AM EDT 01/14/2025 6:09 AM EDT us Srinivasa Michelle MD LAB BLOOD ORDERABLES Final Result [facility] [address] [place] [address] * (ABNORMAL) POCT GLUCOSE (01/13/2025 9:33 PM EDT) POCT Glucose 114(H) 74 - 99 mg/dL 01/13/2025 9:35 PM EDT [facility] Blood Capillary blood specimen / Unknown 01/13/2025 9:33 PM EDT 01/13/2025 9:35 PM EDT us Gayle Max MD LAB POINT OF CAR E TEST DOCKED DEVICE UNSOLICITED RESULTS Final Result [facility] [address] [place] [address] * POCT GLUCOSE (01/13/2025 4:22 PM EDT) POCT Glucose 90 74 - 99 mg/dL 01/13/2025 4:23 PM EDT [facility] Blood Capillary blood specimen / Unknown 01/13/2025 4:22 PM EDT 01/13/2025 4:23 PM EDT us Gayle Max MD LAB POINT OF CAR E TEST DOCKED DEVICE UNSOLICITED RESULTS Final Result Performing Organization Address City/[facility]/ZIP Co de Phone Number [facility] [address] [place] [address] * (ABNORMAL) POCT GLUCOSE (01/13/2025 11:05 AM EDT) POCT Glucose 106(H) 74 - 99 mg/dL 01/13/2025 11:07 AM EDT [facility] Blood Capillary blood specimen / Unknown 01/13/2025 11:05 AM EDT 01/13/2025 11:07 AM EDT Gayle Max MD LAB POINT OF CAR E TEST DOCKED DEVICE UNSOLICITED RESULTS Final Result Performing Organization Address City/[facility]/ZIP Co de Phone Number [facility] [address] [place] [address] * POCT GLUCOSE (01/13/2025 7:26 AM EDT) POCT Glucose 82 74 - 99 mg/dL 01/13/2025 7:27 AM EDT [facility] Blood Capillary blood specimen / Unknown 01/13/2025 7:26 AM EDT 01/13/2025 7:27 AM EDT Gayle Max MD LAB POINT OF CAR E TEST DOCKED DEVICE UNSOLICITED RESULTS Final Result Performing Organization Address [facility] Co de Phone Number [facility] [address] [place] [address] * (ABNORMAL) Basic Metabolic Panel (01/13/2025 5:23 AM EDT) Only the most recent of3 resultswithin the time period is included. Glucose 80 74 - 99 mg/dL LAB CHEMISTRY METHOD 01/13/2025 6:28 AM EDT [facility] Sodium 132(L) 136 - 145 mmol/L LAB CHEMISTRY METHOD 01/13/2025 6:28 AM EDT [facility] Potassium 3.6 3.5 - 5.3 mmol/L LAB CHEMISTRY METHOD 01/13/2025 6:28 AM EDT [facility] Chloride 99 98 - 107 mmol/L LAB CHEMISTRY METHOD 01/13/2025 6:28 AM EDT [facility] Bicarbonate 27 21 - 32 mmol/L LAB CHEMISTRY METHOD 01/13/2025 6:28 AM EDT [facility] Anion Gap 10 10 - 20 mmol/L LAB CHEMISTRY METHOD 01/13/2025 6:28 AM EDT [facility] Urea Nitrogen 7 6 - 23 mg/dL LAB CHEMISTRY METHOD 01/13/2025 6:28 AM EDT [facility] Creatinine 0.44(L) 0.50 - 1.05 mg/dL LAB CHEMISTRY METHOD 01/13/2025 6:28 AM EDT [facility] eGFR >90 >60 mL/min/1. 73m*2 LAB CHEMISTRY METHOD 01/13/2025 6:28 AM EDT [facility] Comment: Calculations of estimated GFR are performed using the 2020 CKD-EPI Study Refit equation without the race variable for the IDMS-Traceable creatinine methods. https://jasn.asnjournals.org/content/early//ASN.4498015437 Calcium 8.2(L) 8.6 - 10.3 mg/dL LAB CHEMISTRY METHOD 01/13/2025 6:28 AM EDT [facility] Blood Venous blood specimen / Unknown Venipuncture / Unknown 01/13/2025 5:23 AM EDT 01/13/2025 5:54 AM EDT us Gayle Max MD LAB BLOOD ORDERABLES Fin al Result [facility] [address] [place] [address] * Lavender Top (01/13/2025 5:19 AM EDT) Extra Tube Hold for add-ons. 01/13/2025 7:01 AM EDT [facility] Comment:Auto resulted. Blood Venous blood specimen / Unknown 01/13/2025 5:19 AM EDT 01/13/2025 5:56 AM EDT Gayle Max MD LAB BLOOD ORDERABLES Fin al Result [facility] [address] [place] [address] * POCT GLUCOSE (01/13/2025 12:27 AM EDT) POCT Glucose 89 74 - 99 mg/dL 01/13/2025 12:29 AM EDT [facility] Blood Capillary blood specimen / Unknown 01/13/2025 12:27 AM EDT 01/13/2025 12:29 AM EDT us Gayle Max MD LAB POINT OF CAR E TEST DOCKED DEVICE UNSOLICITED RESULTS Final Result [facility] [address] [place] [address] * (ABNORMAL) POCT GLUCOSE (01/12/2025 7:39 PM EDT) POCT Glucose 157(H) 74 - 99 mg/dL 01/12/2025 7:41 PM EDT [facility] Blood Capillary blood specimen / Unknown 01/12/2025 7:39 PM EDT 01/12/2025 7:41 PM EDT us Gayle Max MD LAB POINT OF CAR E TEST DOCKED DEVICE UNSOLICITED RESULTS Final Result [facility] [address] [place] [address] * POCT GLUCOSE (01/12/2025 4:08 PM EDT) POCT Glucose 92 74 - 99 mg/dL 01/12/2025 4:10 PM EDT [facility] Blood Capillary blood specimen / Unknown 01/12/2025 4:08 PM EDT 01/12/2025 4:10 PM EDT us Gayle Max MD LAB POINT OF CAR E TEST DOCKED DEVICE UNSOLICITED RESULTS Final Result Performing Organization Address [facility]/ZIP Co de Phone Number [facility] [address] [place] [address] * POCT GLUCOSE (01/12/2025 11:02 AM EDT) POCT Glucose 93 74 - 99 mg/dL 01/12/2025 11:04 AM EDT [facility] Blood Capillary blood specimen / Unknown 01/12/2025 11:02 AM EDT 01/12/2025 11:04 AM EDT us Gayle Max MD LAB POINT OF CAR E TEST DOCKED DEVICE UNSOLICITED RESULTS Final Result Performing Organization Address [facility] Co de Phone Number [facility] [address] [place] [address] * (ABNORMAL) POCT GLUCOSE (01/12/2025 7:02 AM EDT) POCT Glucose 113(H) 74 - 99 mg/dL 01/12/2025 7:03 AM EDT [facility] Blood Capillary blood specimen / Unknown 01/12/2025 7:02 AM EDT 01/12/2025 7:03 AM EDT us Gayle Max MD LAB POINT OF CAR E TEST DOCKED DEVICE UNSOLICITED RESULTS Final Result Performing Organization Address City/[facility]/ZIP Co de Phone Number [facility] [address] [place] [address] * POCT GLUCOSE (01/12/2025 6:39 AM EDT) POCT Glucose 77 74 - 99 mg/dL 01/12/2025 6:40 AM EDT [facility] Blood Capillary blood specimen / Unknown 01/12/2025 6:39 AM EDT 01/12/2025 6:40 AM EDT us Gayle Max MD LAB POINT OF CAR E TEST DOCKED DEVICE UNSOLICITED RESULTS Final Result [facility] [address] [place], [place] [id number] * (ABNORMAL) CBC (01/12/2025 5:19 AM EDT) Only the most recent of4 resultswithin the time period is included. WBC 7.6 4.4 - 11.3 x10*3/uL LAB HEMATOLOGY METHOD 01/12/2025 6:13 AM EDT [facility] nRBC 0.0 0.0 - 0.0 /100 WBCs LAB HEMATOLOGY METHOD 01/12/2025 6:13 AM EDT [facility] RBC 3.54(L) 4.00 - 5.20 x10*6/uL LAB HEMATOLOGY METHOD 01/12/2025 6:13 [address] EDT [facility] Hemoglobin 8.7(L) 12.0 - 16.0 g/dL LAB HEMATOLOGY METHOD 01/12/2025 6:[address] [facility] Hematocrit 26.1(L) 36.0 - 46.0 % LAB HEMATOLOGY METHOD 01/12/2025 6:13 AM EDT [facility] MCV 74(L) 80 - 100 fL LAB HEMATOLOGY METHOD 01/12/2025 6:13 AM EDT [facility] MCH 24.6(L) 26.0 - 34.0 pg LAB HEMATOLOGY METHOD 01/12/2025 6:13 AM EDT [facility] MCHC 33.3 32.0 - 36.0 g/dL LAB HEMATOLOGY METHOD 01/12/2025 6:13 AM [facility] RDW 17.1(H) 11.5 - 14.5 % LAB HEMATOLOGY METHOD 01/12/2025 6:13 AM [facility] Platelets 244 150 - 450 x10*3/uL LAB HEMATOLOGY METHOD 01/12/2025 6:13 AM [facility] Blood Venous blood specimen / Unknown Venipuncture / Unknown 01/12/2025 5:19 AM EDT 01/12/2025 6:06 AM EDT us Gayle Max MD LAB BLOOD ORDERABLES Fin al Result Performing Organization Address [facility]/ZIP Co de Phone Number [facility] [address] [place] [address] * POCT GLUCOSE (01/11/2025 8:48 PM EDT) POCT Glucose 98 74 - 99 mg/dL 01/11/2025 8:50 [address] [facility] Blood Capillary blood specimen / Unknown 01/11/2025 8:48 PM EDT 01/11/2025 8:50 PM EDT us Gayle Max MD LAB POINT OF CAR E TEST DOCKED DEVICE UNSOLICITED RESULTS Final Result Performing Organization Address City/[facility]/ZIP Co de Phone Number [facility] [address] [place] [address] * POCT GLUCOSE (01/11/2025 4:05 PM EDT) POCT Glucose 89 74 - 99 mg/dL 01/11/2025 4:07 [address] [facility] Blood Capillary blood specimen / Unknown 01/11/2025 4:05 PM EDT 01/11/2025 4:07 PM EDT us Gayle Max MD LAB POINT OF CAR E TEST DOCKED DEVICE UNSOLICITED RESULTS Final Result Performing Organization Address City/[facility]/ZIP Co de Phone Number [facility] [address] [place] [address] * POCT GLUCOSE (01/11/2025 11:04 AM EDT) POCT Glucose 91 74 - 99 mg/dL 01/11/2025 11:06 AM EDT [facility] Blood Capillary blood specimen / Unknown 01/11/2025 11:04 AM EDT 01/11/2025 11:06 AM EDT us Gayle Max MD LAB POINT OF CAR E TEST DOCKED DEVICE UNSOLICITED RESULTS Final Result [facility] [address] [place] [address] * Stool Pathogen Panel, PCR (01/11/2025 10:31 AM EDT) Campylobacter Group Not Detected Not Detected 01/12/2025 7:00 AM EDT [facility] Salmonella species Not Detected Not Detected 01/12/2025 7:00 AM EDT [facility] Shigella species Not Detected Not Detected 01/12/2025 7:00 AM EDT [facility] Vibrio Group Not Detected Not Detected 01/12/2025 7:00 AM EDT [facility] Yersinia Enterocolitica Not Detected Not Detected 01/12/2025 7:00 AM EDT [facility] Shiga Toxin 1 Not Detected Not Detected 01/12/2025 7:00 AM EDT [facility] Shiga Toxin 2 Not Detected Not Detected 01/12/2025 7:00 AM EDT [facility] Norovirus GI/GII Not Detected Not Detected 01/12/2025 7:00 AM EDT [facility] Rotavirus A Not Detected Not Detected 01/12/2025 7:00 AM EDT [facility] Stool Stool / Unknown 01/11/2025 1 0:31 AM EDT 01/11/2025 10:38 AM EDT us Gayle Max MD LAB MICROBIOLOGY - GENER AL ORDERABLES Final Result [facility] [address] [facility] [id number] [place] [address] * (ABNORMAL) POCT GLUCOSE (01/11/2025 6:32 AM EDT) POCT Glucose 123(H) 74 - 99 mg/dL 01/11/2025 6:33 AM EDT [facility] Blood Capillary blood specimen / Unknown 01/11/2025 6:32 AM EDT 01/11/2025 6:33 AM EDT us Gayle Max MD LAB POINT OF CAR E TEST DOCKED DEVICE UNSOLICITED RESULTS Final Result [facility] [address] [place] [address] * (ABNORMAL) POCT GLUCOSE (01/10/2025 11:36 PM EDT) POCT Glucose 115(H) 74 - 99 mg/dL 01/10/2025 11:38 [address] [facility] Blood Capillary blood specimen / Unknown 01/10/2025 11:36 PM EDT 01/10/2025 11:38 PM EDT us Gayle Max MD LAB POINT OF CAR E TEST DOCKED DEVICE UNSOLICITED RESULTS Final Result [facility] [address] [place] [address] * (ABNORMAL) POCT GLUCOSE (01/10/2025 7:46 PM EDT) POCT Glucose 108(H) 74 - 99 mg/dL 01/10/2025 7:48 [address]T [facility] Blood Capillary blood specimen / Unknown 01/10/2025 7:46 PM EDT 01/10/2025 7:48 PM EDT us Gayle Max MD LAB POINT OF CAR E TEST DOCKED DEVICE UNSOLICITED RESULTS Final Result [facility] [address] [place] [address] * (ABNORMAL) POCT GLUCOSE (01/10/2025 2:44 PM EDT) POCT Glucose 108(H) 74 - 99 mg/dL 01/10/2025 2:[address] [facility] Blood Capillary blood specimen / Unknown 01/10/2025 2:44 PM EDT 01/10/2025 2:46 PM EDT us Gayle Max MD LAB POINT OF CAR E TEST DOCKED DEVICE UNSOLICITED RESULTS Final Result Performing Organization Address [facility]/ZIP Co de Phone Number [facility] [address] [place] [address] * Heparin Assay (01/10/2025 11:56 AM EDT) Only the most recent of5 resultswithin the time period is included. [facility] Heparin Unfractionated 0.3 See Comment Below for Therapeutic Ranges IU/mL LAB COAGULATION METHOD 01/10/2025 12:14 PM EDT [facility] Blood Venous blood specimen / Unknown Venipuncture / Unknown 01/10/2025 11:56 AM EDT 01/10/2025 11:59 AM EDT Narrative [facility] - 01/10/2025 12:14 PM EDT The therapeutic reference range for UFH may be either 0.3-0.6 IU/mL or 0.3-0.7 IU/mL based on the clinical setting for anticoagulant therapy and the associated nomogram used. For Heparin dosing guidelines based on clinical scenario and Heparin Assay results, please refer to local Pharmacy and the [facility] Guidelines for Anticoagulation Therapy available on the [facility] intranet at: [email or web address] us Gayle Max MD LAB BLOOD ORDERABLES Fin al Result Performing Organization Address City/[facility]/ZIP Co de Phone Number [facility] [address] [place], [place] [id number] * POCT GLUCOSE (01/10/2025 10:54 AM EDT) POCT Glucose 79 74 - 99 mg/dL 01/10/2025 10:56 AM EDT [facility] Blood Capillary blood specimen / Unknown 01/10/2025 10:54 AM EDT 01/10/2025 10:56 AM EDT us Gayle Max MD LAB POINT OF CAR E TEST DOCKED DEVICE UNSOLICITED RESULTS Final Result [facility] [address] [place] [address] * POCT GLUCOSE (01/10/2025 6:48 AM EDT) POCT Glucose 94 74 - 99 mg/dL 01/10/2025 6:49 AM EDT [facility] Blood Capillary blood specimen / Unknown 01/10/2025 6:48 AM EDT 01/10/2025 6:49 AM EDT us Gayle Max MD LAB POINT OF CAR E TEST DOCKED DEVICE UNSOLICITED RESULTS Final Result Performing Organization Address City/[facility]/ZIP Co de Phone Number [facility] [address] [place] [address] * (ABNORMAL) Comprehensive Metabolic Panel (01/10/2025 5:21 AM EDT) Only the most recent of3 resultswithin the time period is included. Glucose 84 74 - 99 mg/dL LAB CHEMISTRY METHOD 01/10/2025 6:46 AM EDT [facility] Sodium 128(L) 136 - 145 mmol/L LAB CHEMISTRY METHOD 01/10/2025 6:46 AM EDT [facility] Potassium 3.6 3.5 - 5.3 mmol/L LAB CHEMISTRY METHOD 01/10/2025 6:46 [address] EDT [facility] Chloride 95(L) 98 - 107 mmol/L LAB CHEMISTRY METHOD 01/10/2025 6:46 AM [facility] Bicarbonate 23 21 - 32 mmol/L LAB CHEMISTRY METHOD 01/10/2025 6:46 AM [facility] Anion Gap 14 10 - 20 mmol/L LAB CHEMISTRY METHOD 01/10/2025 6:46 AM [facility] Urea Nitrogen 11 6 - 23 mg/dL LAB CHEMISTRY METHOD 01/10/2025 6:46 AM [facility] Creatinine 0.61 0.50 - 1.05 mg/dL LAB CHEMISTRY METHOD 01/10/2025 6:46 AM [facility] eGFR >90 >60 mL/min/1. 73m*2 LAB CHEMISTRY METHOD 01/10/2025 6:46 AM [facility] Comment: Calculations of estimated GFR are performed using the 2020 CKD-EPI Study Refit equation without the race variable for the IDMS-Traceable creatinine methods. https://jasn.asnjournals.org/content///ASN.7209462344 Calcium 8.0(L) 8.6 - 10.3 mg/dL LAB CHEMISTRY METHOD 01/10/2025 6:46 AM [facility] Albumin 2.9(L) 3.4 - 5.0 g/dL LAB CHEMISTRY METHOD 01/10/2025 6:46 AM [facility] Alkaline Phosphatase 35 33 - 136 U/L LAB CHEMISTRY METHOD 01/10/2025 6:46 AM [facility] Total Protein 5.7(L) 6.4 - 8.2 g/dL LAB CHEMISTRY METHOD 01/10/2025 6:46 AM [facility] AST 37 9 - 39 U/L LAB CHEMISTRY METHOD 01/10/2025 6:46 AM [facility] Bilirubin, Total 0.2 0.0 - 1.2 mg/dL LAB CHEMISTRY METHOD 01/10/2025 6:46 AM [facility] ALT 23 7 - 45 U/L LAB CHEMISTRY METHOD 01/10/2025 6:46 AM [facility] Comment:Patients treated wit h Sulfasalazine may generate falsely decreased results for ALT. Blood Venous blood specimen / Unknown Venipuncture / Unknown 01/10/2025 5:21 AM EDT 01/10/2025 6:09 AM EDT us Srinivasa Michelle MD LAB BLOOD ORDERABLES Final Result [facility] [address] [place] [address] * POCT GLUCOSE (01/10/2025 5:08 AM EDT) POCT Glucose 93 74 - 99 mg/dL 01/10/2025 5:11 AM EDT [facility] Blood Capillary blood specimen / Unknown 01/10/2025 5:08 AM EDT 01/10/2025 5:11 AM EDT us Gayle Max MD LAB POINT OF CAR E TEST DOCKED DEVICE UNSOLICITED RESULTS Final Result Performing Organization Address City/[facility]/ZIP Co de Phone Number [facility] [address] [place] [phone] * (ABNORMAL) POCT GLUCOSE (01/10/2025 12:39 AM EDT) POCT Glucose 104(H) 74 - 99 mg/dL 01/10/2025 12:42 AM EDT [facility] Blood Capillary blood specimen / Unknown 01/10/2025 12:39 AM EDT 01/10/2025 12:42 AM EDT us Gayle Max MD LAB POINT OF CAR E TEST DOCKED DEVICE UNSOLICITED RESULTS Final Result Performing Organization Address City/[facility]/ZIP Co de Phone Number [facility] [address] [place] [address] * POCT GLUCOSE (01/09/2025 9:17 PM EDT) POCT Glucose 91 74 - 99 mg/dL 01/09/2025 9:38 PM EDT [facility] Blood Capillary blood specimen / Unknown 01/09/2025 9:17 PM EDT 01/09/2025 9:38 PM EDT us Gayle Max MD LAB POINT OF CAR E TEST DOCKED DEVICE UNSOLICITED RESULTS Final Result Performing Organization Address City/[facility]/ZIP Co de Phone Number [facility] [address] [place] [address] * POCT GLUCOSE (01/09/2025 6:56 PM EDT) [facility] Signature POCT Glucose 81 74 - 99 mg/dL 01/09/2025 6:58 PM EDT [facility] Blood Capillary blood specimen / Unknown 01/09/2025 6:56 PM EDT 01/09/2025 6:58 PM EDT us Michelle Snowden MD LAB POINT OF CARE TEST DOCKED DEVICE UNSOLICITED RESULTS Final Result Performing Organization Address [facility]/ZIP Co de Phone Number [facility] [address] [place] [address] * (ABNORMAL) POCT GLUCOSE (01/09/2025 3:33 PM EDT) [facility] POCT Glucose 104(H) 74 - 99 mg/dL 01/09/2025 3:35 PM ED[address] [facility] Blood Capillary blood specimen / Unknown 01/09/2025 3:33 PM EDT 01/09/2025 3:35 PM EDT us Michelle Snowden MD LAB POINT OF CARE TEST DOCKED DEVICE UNSOLICITED RESULTS Final Result Performing Organization Address [facility]/ZIP Co de Phone Number [facility] [address] [place] [address] * TRANSTHORACIC ECHO (TTE) COMPLETE WITH CONTRAST [...] Narrative SYNGO - 01/10/2025 8:51 AM EDT [place] [id number] TRANSTHORACIC ECHOCARDIOGRAM REPORT Patient Name: [facility] Physician: [id number] Augustus Issa DO Study Date: 01/09/2025 Ordering Provider: [id number] DANI DODGE MRN/PID: [id number] Fellow: Nurse: Date of /Age: 1 1960 / 64 years Auricular Therapist: Gege Balbuena [facility] Gender Assigned at F Additional Staff: : Height: 157.48 cm Admit Date: 01/08/2025 Weight: 67.59 kg Admission Status: Inpatient - Routine BSA / BMI: 1.69 m2 / 27.25 Department Location: [facility] kg/m2 Blood Pressure: 101 /55 mmHg Study Type: TRANSTHORACIC ECHO (TTE) COMPLETE Diagnosis/ICD: Ventricular tachycardia, other-I47.29 Indication: Multiple ICD firings CPT Codes: Echo Complete w Full [id number] Patient History: Pacer/Defib: AICD Pertinent History: HTN, [...] LA Area A2C: 19.2 cm2 [place] A4C: 6.3 cm LA [place] A2C: 5.7 cm LA Volume Index: 33.4 ml/m2 RIGHT ATRIUM: Normal Ranges: RA Vol A4C: 32.8 ml (8.3-19.5ml) RA Vol Index A4C: 19.4 ml/m2 RA Area A4C: 13.1 cm2 RA [place] A4C: 4.4 cm LV SYSTOLIC FUNCTION: Normal [...] 1.0 m/s (0.6-0.9m/s) PV Max P.9 mmHg [id number] Augustus Issa DO Electronically signed on 01/10/2025 at 8:51:17 AM Wall Scoring Final Procedure Note Augustus Issa DO - 01/10/2025 [place] [id number] TRANSTHORACIC ECHOCARDIOGRAM REPORT Patient Name: [facility] Reading Physician: Demario EricO Study Date: 01/09/2025 Ordering Provider: [id number] JAMES DODGE MRN/PID: [id number] Fellow: Nurse: Date of /Age: 1 1960 / 64 years Auricular Therapist: Yana MURPHY Gender Assigned at F Additional Staff: : Height: 157.48 cm Admit Date: 01/08/2025 Weight: 67.59 kg Admission Status: Inpatient- Routine BSA / BMI: 1.69 m2 / 27.25 Department Location: [facility] kg/m2 Blood Pressure: 101 /55 mmHg Study Type: TRANSTHORACIC ECHO (TTE) COMPLETE Diagnosis/ICD: Ventricular tachycardia, other-I47.29 Indication: Multiple ICD firings CPT Codes: Echo Complete w Full Doppler-[id number] Patient History: Pacer/Defib: AICD Pertinent History: HTN, [...] LA Area A2C: 19.2 cm2 LA [place] A4C: 6.3 cm [place] A2C: 5.7 cm LA Volume Index: 33.4 ml/m2 RIGHT ATRIUM: Normal Ranges: RA Vol A4C: 32.8 ml (8.3-19.5ml) RA Vol Index A4C: 19.4 ml/m2 RA Area A4C: 13.1 cm2 RA [place] A4C: 4.4 cm LV SYSTOLIC FUNCTION: Normal [...] 1.0 m/s (0.6-0.9m/s) PV Max P.9 mmHg [id number] Augustus Maegan SALAZAR Electronically signed on 01/10/2025 at 8:51:17 AM Wall Scoring Final us Srinivasa Michelle MD CV ECHO PROCEDURES Final Re sult SYNGO * (ABNORMAL) POCT GLUCOSE (01/09/2025 10:48 AM EDT) POCT Glucose 102(H) 74 - 99 mg/dL 01/09/2025 10:50 AM EDT [facility] Blood Capillary blood specimen / Unknown 01/09/2025 10:48 AM EDT 01/09/2025 10:50 AM EDT us Yonis Fishman MD LAB POINT OF CAR E TEST DOCKED DEVICE UNSOLICITED RESULTS Final Result [facility] [address] [place] [address] * SST TOP (01/09/2025 9:55 AM EDT) Only the most recent of2 resultswithin the time period is included. Extra Tube Hold for add-ons. 01/09/2025 12:02 PM EDT [facility] Comment:Auto resulted. Blood Venous blood specimen / Unknown 01/09/2025 9:55 AM EDT 01/09/2025 10:31 AM EDT Yonis Fishman MD LAB BLOOD ORDERABLES Fin al Result [facility] [address] [place] [address] * MRSA Surveillance for Vancomycin De-escalation, PCR (01/09/2025 12:34 AM EDT) MRSA PCR Not Detected Not Detected X_PERT XPRESS SARS-COV2_ CEPHEID_EU A 01/09/2025 2:04 AM EDT [facility] Swab (Anterior Nares) Non-blood Collection / Unknown 01/09/2025 12:34 AM EDT 01/09/2025 12:41 AM EDT Narrative [facility] - 01/09/2025 2:04 AM EDT [...] ORD ERABLES Final Result Performing Organization Address City/[facility]/ZIP Co de Phone Number [facility] [address] [place] [address] * Streptococcus pneumoniae Antigen, Urine (01/08/2025 11:59 PM EDT) Pathologist [facility] Streptococcus pneumoniae Ag, Urine Negative Negative 01/09/2025 11:55 AM EDT [facility] Urine Urine specimen / Unknown Non-blood Collection / Unknown 01/08/2025 11:59 PM EDT 01/09/2025 12:41 AM EDT Triny Ebenezer ZAVALETA-C LAB MICROBIOLOGY - GENERAL ORD ERABLES Final Result Performing Organization Address City/[facility]/ZIP Co de Phone Number [facility] [address] [place] [address] * Legionella Antigen, Urine (01/08/2025 11:59 PM EDT) L. pneumophila Urine Ag Negative Negative 01/09/2025 11:55 AM EDT [facility] Urine Urine specimen / Unknown Non-blood Collection / Unknown 01/08/2025 11:59 PM EDT 01/09/2025 12:41 AM EDT Triny Ebenezer ZAVALETA-C LAB MICROBIOLOGY - GENERAL ORD ERABLES Final Result Performing Organization Address [facility] Co de Phone Number [facility] [address] [place] [phone] * (ABNORMAL) Urinalysis with Reflex Microscopic (01/08/2025 11:59 PM EDT) Color, Urine Light-Yellow Light-Yellow , Yellow, Dark-Yellow 01/09/2025 1:17 AM EDT [facility] Appearance, Urine Clear Clear 01/09/2025 1:17 AM EDT [facility] Specific [place], Urine 1.009 1.005 - 1.035 01/09/2025 1:17 AM T [facility] pH, Urine 5.0 5.0, 5.5, 6.0, 6.5, 7.0, 7.5, 8.0 01/09/2025 1:17 AM T [facility] Protein, Urine NEGATIVE NEGATIVE, 10 (TRACE), 20 (TRACE) mg/dL 01/09/2025 1:17 AM T [facility] Glucose, Urine OVER (4+)(A) Normal mg/dL 01/09/2025 1:17 [address]T [facility] Blood, Urine NEGATIVE NEGATIVE mg/dL 01/09/2025 1:17 AM EDT [facility] Ketones, Urine NEGATIVE NEGATIVE mg/dL 01/09/2025 1:17 [address] EDT [facility] Bilirubin, Urine NEGATIVE NEGATIVE mg/dL 01/09/2025 1:17 [address] EDT [facility] Urobilinogen, Urine Normal Normal mg/dL 01/09/2025 1:17 [address] ED[address] [facility] Nitrite, Urine NEGATIVE NEGATIVE 01/09/2025 1:[address] [facility] Leukocyte Esterase, Urine NEGATIVE NEGATIVE 01/09/2025 1:17 [address]T [facility] Urine Urine specimen / Unknown Non-blood Collection / Unknown 01/08/2025 11:59 PM EDT 01/09/2025 12:41 AM EDT Narrative [facility] - 01/09/2025 1:17 AM EDT OVER is reported when the result is greater than the clinically reportable range. Triny Sol PA-C LAB URINE ORDERABLES Final Res ult [facility] [address] [place] [address] * VERIFY ABO/Rh Group Test (01/08/2025 10:39 PM EDT) ABO TYPE A 01/08/2025 10:56 PM EDT [facility] Rh TYPE POS 01/08/2025 10:56 PM EDT [facility] Blood Venous blood specimen / Unknown Venipuncture / Unknown 01/08/2025 10:39 PM EDT 01/08/2025 10:43 PM EDT Otis Chappell DO LAB BLOOD BANK TEST ORDERAB LES Final Result Performing Organization Address [facility]/ZIP Co de Phone Number [facility] [address] [place] [address], * (ABNORMAL) POCT GLUCOSE (01/08/2025 10:38 PM EDT) POCT Glucose 106(H) 74 - 99 mg/dL 01/08/2025 10:39 [address] [facility] Blood Capillary blood specimen / Unknown 01/08/2025 10:38 PM EDT 01/08/2025 10:39 PM EDT Otis Chappell DO LAB POINT OF CARE T EST DOCKED DEVICE UNSOLICITED RESULTS Final Result [facility] [address] [place] [address] * (ABNORMAL) Procalcitonin (01/08/2025 9:34 PM EDT) Pathologist [facility] Procalcitonin 0.39(H) <=0.07 ng/mL LAB CHEMISTRY METHOD 01/09/2025 11:53 AM EDT [facility] Blood Venous blood specimen / Unknown Venipuncture / Unknown 01/08/2025 9:34 PM EDT 01/08/2025 9:38 PM EDT Narrative [facility] - 01/09/2025 11:53 AM EDT [...] JOSEPHC LAB BLOOD ORDERABLES Final Res ult [facility] [address] [facility] [address] [place] [address] * RSV PCR (01/08/2025 9:33 PM EDT) Pathologist [facility] RSV PCR Not Detected Not Detected X_PERT XPRESS SARS-COV2_ CEPHEID_EU A 01/08/2025 11:[address] [facility] Swab Nasopharyngeal swab / Unknown Non-blood Collection / Unknown 01/08/2025 9:33 PM EDT 01/08/2025 10:43 PM EDT [facility] - 01/08/2025 11:23 PM EDT This assay is an FDA-cleared, in vitro diagnostic nucleic acid amplification test for the detection of RSV from nasopharyngeal specimens, and has been validated for use at [facility]. Negative results do not preclude RSV infections, and should not be used as the sole basis for diagnosis, treatment, or other management decisions. If Influenza A/B and RSV PCR results are negative, testing for Parainfluenza virus, Adenovirus and Metapneumovirus is routinely performed for pediatric oncology and intensive care inpatients at [facility], and is available on other patients by placing an add-on request. [facility] Ebenezer ZAVALETA-C LAB MOLECULAR DIAGNOSTICS ORDE RABLES Final Result Performing Organization Address City/[facility]/ZIP Co de Phone Number [facility] [address] [place], [place] [id number] * (ABNORMAL) Sars-CoV-2 and Influenza A/B PCR (01/08/2025 9:33 PM EDT) Pathologist [facility] Flu A Result Detected(A) Not Detected X_PERT XPRESS SARS-COV2 _CEPHEID_ EUA 01/08/2025 11:[address] [facility] Flu B Result Not Detected Not Detected X_PERT XPRESS SARS-COV2 _CEPHEID_ EUA 01/08/2025 11:[address] [facility] Coronavirus 2019, PCR Not Detected Not Detected X_PERT XPRESS SARS-COV2 _CEPHEID_ EUA 01/08/2025 11:[address] [facility] Swab Nasopharyngeal swab / Unknown Non-blood Collection / Unknown 01/08/2025 9:33 PM EDT 01/08/2025 10:43 PM EDT Narrative [facility] - 01/08/2025 11:23 PM EDT This assay is an FDA-cleared, in vitro diagnostic nucleic acid amplification test for the qualitative detection and differentiation of SARS CoV-2/ Influenza A/B from nasopharyngeal specimens collected from individuals with signs and symptoms of respiratory tract infections, and has been validated for use at [facility]. Negative results do not preclude COVID-19/ Influenza A/B infections and should not be used as the sole basis for diagnosis, treatment, or other management decisions. Testing for SARS CoV-2 is recommended only for patients who meet current clinical and/or epidemiological criteria defined by federal, state, or local public health directives. Triny Sol PA-C LAB MOLECULAR DIAGNOSTICS DANYEL GOMEZ Final Result [facility] [address] [place] [address] * Staphylococcus aureus/MRSA colonization, Culture (01/08/2025 9:33 PM EDT) [facility] Staph/MRSA Screen Culture No Staphylococcus aureus isolated 01/10/2025 11:36 AM EDT [facility] Swab (Anterior Nares) Non-blood Collection / Unknown 01/08/2025 9:33 PM EDT 01/08/2025 10:43 PM EDT Triny ZAVALETA-Luz LAB MICROBIOLOGY - GENERAL ORD ERABLES Final Result [facility] [address] [address] * Blood Culture (01/08/2025 8:47 PM EDT) Pathologist [facility] Blood Culture No growth at 4 days - FINAL REPORT AUTOMATED MICROBIAL DETECTION SYSTEM (VIRTUO) 01/13/2025 3:02 AM EDT [facility] Blood culture Venous blood specimen / Unknown Blood Culture / Unknown 01/08/2025 8:47 PM EDT 01/08/2025 8:51 PM EDT Triny Sol PA-C LAB MICROBIOLOGY - GENERAL ORD ERABLES Final Result [facility] [address] [place] [address] * Lactate (01/08/2025 8:47 PM EDT) [facility] Lactate 1.0 0.4 - 2.0 mmol/L LAB CHEMISTRY METHOD 01/08/2025 9:[address] [facility] Blood Venous blood specimen / Unknown Venipuncture / Unknown 01/08/2025 8:47 PM EDT 01/08/2025 8:51 PM EDT Narrative [facility] - 01/08/2025 9:11 PM EDT Venipuncture immediately after or during the administration of Metamizole may lead to falsely low results. Testing should be performed immediately prior to Metamizole dosing. Triny Sol PA-C LAB BLOOD ORDERABLES Final Res ult [facility] [address] [place] [address] * (ABNORMAL) Troponin, High Sensitivity, 1 Hour (01/08/2025 8:46 PM EDT) Pathologist [facility] Troponin I, High Sensitivity 28(H) 0 - 13 ng/L LAB IMMUNOASSAY METHOD 01/08/2025 9:[address] [facility] Blood Venous blood specimen / Unknown Venipuncture / Unknown 01/08/2025 8:46 PM EDT 01/08/2025 8:51 PM EDT [facility] - 01/08/2025 9:19 PM EDT Less [...] performed using a different testing methodology at [facility] than at other [facility]. Direct result comparisons should only be made within the same method. Dani Dodge WIRE PREPARATION MACHINE TENDER-RN NEONATAL, DNP LAB BLOOD ORDERAB LES Final Result [facility] [address] [place] [id number] * BB ORDER ONLY - Antibody Identification (01/08/2025 8:46 PM EDT) Antibody ID Anti-c and Inconclusive 01/11/2025 2:26 PM EDT [facility] CASE # 01/11/2025 2:26 PM EDT [facility] Blood Venous blood specimen / Unknown Venipuncture / Unknown 01/08/2025 8:46 PM EDT 01/08/2025 8:51 PM EDT Triny Sol PA-C LAB BLOOD BANK TEST ORDERABLES Final Result [facility] [address] [place] [address], * Type and screen (01/08/2025 8:46 PM EDT) ABO TYPE A 01/08/2025 9:38 PM EDT [facility] Rh TYPE POS 01/08/2025 9:38 PM EDT [facility] ANTIBODY SCREEN POS 9:38 PM EDT [facility] Blood Venous blood specimen / Unknown Venipuncture / Unknown 01/08/2025 8:46 PM EDT 01/08/2025 8:51 PM EDT us Triny Sol PA-C LAB BLOOD BANK TEST ORDERABLES Final Result [facility] [address] [place] [address], * XR chest 1 view (01/08/2025 8:06 PM EDT) Anatomical Region Laterality Modality Thoracic, Chest Computed Radiogr aphy 01/08/2025 8:19 PM EDT 01/08/2025 8:19 PM EDT Impressions 01/08/2025 8:17 PM EDT Right-sided airspace consolidation, as above. Clinical correlation and continued follow-up until clearing is recommended. MACRO: None. Signed by: Deion Bonilla 01/08/2025 8:17 PM Dictation workstation: [id number] Narrative 01/08/2025 8:17 PM EDT Interpreted By: Deion Bonilla, STUDY: XR CHEST 1 VIEW 01/08/2025 8:06 pm INDICATION: Signs/Symptoms:increased O2 COMPARISON: 09/01/2024 ACCESSION NUMBER(S): [id number] ORDERING CLINICIAN: TRINY SOL TECHNIQUE: A single [...] INDICATION: Signs/Symptoms:increased O2 COMPARISON: 09/01/2024 ACCESSION NUMBER(S): [id number] ORDERING CLINICIAN: TRINY SOL TECHNIQUE: A single [...] Deion Bonilla 01/08/2025 8:17 PM Dictation workstation: [id number] us Triny Sol PA-C IMG XR PROCEDURES Final Result * (ABNORMAL) CBC and Auto Differential (01/08/2025 7:21 PM EDT) WBC 17.1(H) 4.4 - 11.3 x10*3/uL LAB HEMATOLOGY METHOD 01/08/2025 7:[address] [facility] nRBC 0.1(H) 0.0 - 0.0 /100 WBCs LAB HEMATOLOGY METHOD 01/08/2025 7:[address] [facility] RBC 4.09 4.00 - 5.20 x10*6/uL LAB HEMATOLOGY METHOD 01/08/2025 7:[address] [facility] Hemoglobin 10.4(L) 12.0 - 16.0 g/dL LAB HEMATOLOGY METHOD 01/08/2025 7:[address] [facility] Hematocrit 30.7(L) 36.0 - 46.0 % LAB HEMATOLOGY METHOD 01/08/2025 7:[address] [facility] MCV 75(L) 80 - 100 fL LAB HEMATOLOGY METHOD 01/08/2025 7:[address] [facility] MCH 25.4(L) 26.0 - 34.0 pg LAB HEMATOLOGY METHOD 01/08/2025 7:28 PM [facility] MCHC 33.9 32.0 - 36.0 g/dL LAB HEMATOLOGY METHOD 01/08/2025 7:28 PM [facility] RDW 16.6(H) 11.5 - 14.5 % LAB HEMATOLOGY METHOD 01/08/2025 7:28 PM [facility] Platelets 218 150 - 450 x10*3/uL LAB HEMATOLOGY METHOD 01/08/2025 7:28 PM [facility] Neutrophils % 84.0 40.0 - 80.0 % LAB HEMATOLOGY METHOD 01/08/2025 7:28 PM [facility] Immature Granulocytes %, Automated 0.4 0.0 - 0.9 % LAB HEMATOLOGY METHOD 01/08/2025 7:28 PM [facility] Comment:Immature Granulocyte Count (IG) includes promyelocytes, myelocytes and metamyelocytes but does not include bands. Percent differential counts (%) should be interpreted in the context of the absolute cell counts (cells/UL). Lymphocytes % 10.6 13.0 - 44.0 % LAB HEMATOLOGY METHOD 01/08/2025 7:28 PM [facility] Monocytes % 4.8 2.0 - 10.0 % LAB HEMATOLOGY METHOD 01/08/2025 7:28 PM [facility] Eosinophils % 0.0 0.0 - 6.0 % LAB HEMATOLOGY METHOD 01/08/2025 7:28 PM [facility] Basophils % 0.2 0.0 - 2.0 % LAB HEMATOLOGY METHOD 01/08/2025 7:28 PM [facility] Neutrophils Absolute 14.38(H) 1.20 - 7.70 x10*3/uL LAB HEMATOLOGY METHOD 01/08/2025 7:28 PM [facility] Comment:Percent differential counts (%) should be interpreted in the context of the absolute cell counts (cells/uL). Immature Granulocytes Absolute, Automated 0.07 0.00 - 0.70 x10*3/uL LAB HEMATOLOGY METHOD 01/08/2025 7:28 PM [facility] Lymphocytes Absolute 1.82 1.20 - 4.80 x10*3/uL LAB HEMATOLOGY METHOD 01/08/2025 7:[address] [facility] Monocytes Absolute 0.83 0.10 - 1.00 x10*3/uL LAB HEMATOLOGY METHOD 01/08/2025 7:[address] [facility] Eosinophils Absolute 0.00 0.00 - 0.70 x10*3/uL LAB HEMATOLOGY METHOD 01/08/2025 7:28 PM EDT [facility] Basophils Absolute 0.03 0.00 - 0.10 x10*3/uL LAB HEMATOLOGY METHOD 01/08/2025 7:28 PM EDT [facility] Blood Venous blood specimen / Unknown Venipuncture / Unknown 01/08/2025 7:21 PM EDT 01/08/2025 7:26 PM EDT Dani Dodge [employer] MACHINE TENDER-RN NEONATAL, DNP LAB BLOOD ORDERAB LES Final Result [facility] [address] [place] [address] * (ABNORMAL) Troponin I, High Sensitivity, Initial (01/08/2025 7:21 PM EDT) Pathologist [facility] Troponin I, High Sensitivity 29(H) 0 - 13 ng/L LAB IMMUNOASSAY METHOD 01/08/2025 7:52 PM EDT [facility] Blood Venous blood specimen / Unknown Venipuncture / Unknown 01/08/2025 7:21 PM EDT 01/08/2025 7:26 PM EDT [facility] - 01/08/2025 7:52 PM EDT Less [...] performed using a different testing methodology at [facility]. Direct result comparisons should only be made within the same method. us Dani Dodge WIRE PREPARATION MACHINE TENDER-RN NEONATAL, DNP LAB BLOOD ORDERAB LES Final Result Performing Organization Address [facility] Co de Phone Number [facility] [address] [place] [address] * TSH with reflex to Free T4 if abnormal (01/08/2025 7:21 PM EDT) [facility] Thyroid Stimulating Hormone 2.12 0.44 - 3.98 mIU/L LAB IMMUNOASSAY METHOD 01/08/2025 8:19 PM [address] [facility] Blood Venous blood specimen / Unknown Venipuncture / Unknown 01/08/2025 7:21 PM EDT 01/08/2025 7:26 PM EDT [facility] - 01/08/2025 8:19 PM EDT TSH testing is performed using different testing methodology at [facility]. Direct result comparisons should only be made within the same method. us Triny Sol PA-C LAB BLOOD ORDERABLES Final Res ult Performing Organization Address [facility] Co de Phone Number [facility] [address] [place] [address] * Coagulation Screen (01/08/2025 7:21 PM EDT) Pathologist [facility] Protime 10.9 9.8 - 12.4 seconds LAB COAGULATION METHOD 01/08/2025 7:39 PM ED[address] [facility] INR 1.0 0.9 - 1.1 LAB COAGULATION METHOD 01/08/2025 7:39 [address] [facility] aPTT 28 26 - 36 seconds LAB COAGULATION METHOD 01/08/2025 7:39 PM EDT [facility] Blood Venous blood specimen / Unknown Venipuncture / Unknown 01/08/2025 7:21 PM EDT 01/08/2025 7:26 PM EDT [facility] - 01/08/2025 7:39 PM EDT The APTT is no longer used for monitoring Unfractionated Heparin Therapy. For monitoring Heparin Therapy, use the Heparin Assay. us Dani Dodge WIRE PREPARATION MACHINE TENDER-RN NEONATAL, DNP LAB BLOOD ORDERAB LES Final Result [facility] [address] [place] [address] * (ABNORMAL) B-type natriuretic peptide (01/08/2025 7:21 PM EDT) BNP 106(H) 0 - 99 pg/mL LAB IMMUNOASSAY METHOD 01/08/2025 8:[address] [facility] Blood Venous blood specimen / Unknown Venipuncture / Unknown 01/08/2025 7:21 PM EDT 01/08/2025 7:26 PM EDT [facility] - 01/08/2025 8:16 PM EDT <100 pg/mL - Heart failure unlikely 100-299 pg/mL - Intermediate probability of acute heart failure exacerbation. Correlate with clinical context and patient history. >=300 pg/mL - Heart Failure likely. Correlate with clinical context and patient history. BNP testing is performed using different testing methodology at [facility] than at other [facility]. Direct result comparisons should only be made within the same method. us Triny Sol PA-C LAB BLOOD ORDERABLES Final Res ult [facility] [address] [place] [address] * Hemoglobin A1c (01/08/2025 7:21 PM EDT) Hemoglobin A1C 5.5 See comment % 025 11:45 PM EDT [facility] Estimated Average Glucose 111 Not Established mg/dL 01/08/2025 11:45 PM EDT [facility] Blood Venous blood specimen / Unknown Venipuncture / Unknown 01/08/2025 7:21 PM EDT 01/08/2025 7:26 PM EDT Narrative [facility] - 01/08/2025 11:45 PM EDT Diagnosis of Diabetes-Adults Non-Diabetic: < or = 5.6% Increased risk for developing diabetes: 5.7-6.4% Diagnostic of diabetes: > or = 6.5% us Triny Sol PA-C LAB BLOOD ORDERABLES Final Res ult [facility] [address] [address] from Last 3 Months Insurance MEDICAID Member Subscriber Plan / Payer (Ef fective 2017-Present) Name:Ofe Martinezsy Relation to Subscriber:Self Name:King Martinez Payer ID:Not on file Group ID:Not on file Type:Not on file Address: [address] DUAL ADVANTAGE ANTH DUAL ADVANTAGE Advance Directives For more information, please contact: [phone] (Available ) * Full Code (Latest Code Status on File) Date Activated Date Inactivated Comments 11/26/2023 6:41 AM Question Answer Comments Plan of Care: Code Status Discussion Not Compl eted Decision Maker: Provider Rationale: Patient condition does not warra nt discussion Care Teams Chief Development Officer Relationship Specialty Start Date End Date Conchita Aden MD [facility] [place] [address] [place] [address] PCP - General Family Medicine 11/11/24 June Preston MD [address] [facility] Medical Office Bldg, Steve [address] [place] [address] Computer Application Developer Electrophysiology 09/13/24
--- OUTSIDE RECORDS SUMMARY | 2025-04-10 18:59 | XMS_ITS | Encounter Summary ---
Author Organization [facility] Address [address] [place] [address] Phone Care Team Providers Care Diet Assistant Name Role Phone Tremaine West DO Primary Care Provider Ania Brothers INFLATED BALL MOLDER-DUCT CLEANER Unavailable Unavailable June Preston MD Unavailable Sol Keita CANE STRIPPER Unavailable [phone] June Preston MD Unavailable Oscar Rodriguez MD Unavailable [phone] Generic Provider, No Assigned Pcp Primary Car e Provider Unavailable Diane Min RN Unavailable Unavailable June Preston MD Unavailable Conchita Aden MD Primary Care Provider [phone] Diane Min RN Unavailable Unavailable Encounter Details Date Type Department Care Team (Late st Contact Info) Description 03/25/2023 Orders Only [facility]Y [address] [place] [address] Conversion, Onbase Social History Tobacco Use Types [...] EDT Hospital Encounter [facility] [place] [address] [facility] [address] [place] [address] Kervin Fair MD [address] [place] [address] Ventricular tachycardia (Multi) 04/14/2025 11:00 AM EDT - 04/14/2025 3:00 PM EDT Surgery [facility] [place] [address] [facility] [address] [place] [address] Kervin Fair MD [address] [place], [place] [id number] [place] [[address] (CPT )] 07/14/2025 1:00 PM EDT Office Visit [facility] 703 [facility] [address] [place] [address] Oscar Rodriguez MD 703 [facility] 2, Steve [address] [place] [address] 09/26/2025 12:[address] [facility] [address] [place] [address] 09/26/2025 1:00 PM EST Office Visit [facility] [address] [facility] [address] [place] [address] June Preston MD [address] [facility] Office [facility], [facility] [address] [place] [address] Scheduled Orders Name Type Priority Associated Diagnoses [...] documented as of this encounter Care Teams Diet Assistant Relationship Specialty Start Date End Date Tremaine West DO 1610 [facility] Tremaine West [facility] [address] [place] [address] PCP - General 01/22/22 11/05/23 Generic Provider, No Assigned Pcp, [place] [address] PCP - General Cheese Pancake Roller 08/08/24 11/10/24 Conchita Aden MD [address] [place] [address] PCP - General Family Medicine 11/11/24 Ania Brothers APRN-DUCT CLEANER [address] [place] Amor [place] [facility] [address] [place] [address] Nurse Practitioner Cardiology 09/30/23 02/16/24 June Preston MD 1610 [facility] Tremaine West [facility] [address] [place] [address] Medication Aide Cardiology 09/30/23 02/16/24 Sol Keita, CANE STRIPPER Bag BundlerRiver And Lakes Boatman 02/19/24 05/17/24 June Preston MD [address] [facility] Medical [facility] [address], [address] [place] [address] Consulting Physician Cardiology 02/19/24 02/29/24 Oscar Rodriguez MD 703 [facility] 2, Steve [address] [place] [address] Consulting Physician Cardiology 02/19/24 02/29/24 Diane Min, textile supervisorRiver And Lakes Boatman 09/05/24 12/06/24 June Preston MD [facility] [address] [place] [address] Medication Aide Electrophysiology 09/13/24 Diane Min, textile supervisorRiver And Lakes Boatman 01/16/25 01/31/25 documented as of this encounter
--- OUTSIDE RECORDS SUMMARY | 2025-04-10 18:59 | XMS_ITS | Encounter Summary ---
Author Organization [facility] Address [address] [place] [address] Phone Care Team Providers Care Soil Tester Name Role Phone Tremaine West DO Primary Care Provider Ania Brothers STRIPER-CUT OFF SAW GRADER Unavailable Unavailable June Preston MD Unavailable Sol Keita INSTALLERS MECHANICAL Unavailable [phone] June Preston MD Unavailable Oscar Rodriguez MD Unavailable [phone] Generic Provider, No Assigned Pcp Primary Car e Provider Unavailable Diane Min RN Unavailable Unavailable June Preston MD Unavailable Conchita Aden MD Primary Care Provider [phone] Diane Min RN Unavailable Unavailable Encounter Details Date Type Department Care Team (Late st Contact Info) Description 06/30/2020 Orders Only [facility] LEGACY [address] [place] [address] Conversion, Onbase Social History Tobacco Use Types [...] [facility] [place] [address] [place] [address] [place] [address] Kervin Fair MD [address] [place], [place] [id number] Ventricular tachycardia (Multi) 04/14/2025 11:00 AM EDT - 04/14/2025 3:00 PM EDT Surgery [facility] [place] [address] [facility] [address] [place] [address] Kervin Fair MD [address] [place], [place] [id number] [place] [[address] (CPT )] 07/14/2025 1:00 PM EDT Office Visit [facility] 703 [facility] [address] [place] [address] Oscar Rodriguez MD 3 [facility] 2, Steve [address] [place] [address] 09/26/2025 12:20 PM EST Appointment [facility] [address] [place] [address] 09/26/2025 1:00 PM EST Office Visit [facility] [address] [facility] [address] [place] [address] June Preston MD 125 [address] [facility] Medical Office [facility], [facility] [address] [place] [address] Scheduled Orders Name Type Priority Associated Diagnoses [...] documented as of this encounter Care Teams Soil Tester Relationship Specialty Start Date End Date Tremaine West DO [address] [place], DO Steve [address] [place] [address] PCP - General 01/22/22 11/05/23 Generic Provider, No Assigned Pcp, [place] [address] PCP - General Protection Mgr 08/08/24 11/10/24 Conchita Aden MD [address] [place] [address] PCP - General Family Medicine 11/11/24 Ania Brothers, STRIPER-CUT OFF SAW GRADER 1610 [facility] Tremaine West, DO Steve [address] [place] [address] Nurse Practitioner Cardiology 09/30/23 02/16/24 June Preston MD 1610 [facility] Tremaine West DO Steve [address] [place] [address] Linux Unix Administrator Cardiology 09/30/23 02/16/24 Sol Keita, INSTALLERS MECHANICAL Voice InstructorBread Slicer Machine 02/19/24 05/17/24 uJne Preston MD [address] [facility], [address] [place] [address] Consulting Physician Cardiology 02/19/24 02/29/24 Oscar Rodriguez MD [address] [place] [address] 2, [address] [place] [address] Consulting Physician Cardiology 02/19/24 02/29/24 Diane Min, sample maker originalBread Slicer Machine 09/05/24 12/06/24 June Preston MD [address] [facility] [address], Steve [address] [place] [address] Linux Unix Administrator Electrophysiology 09/13/24 Diane Min, sample maker originalBread Slicer Machine 01/16/25 01/31/25 documented as of this encounter
--- OUTSIDE RECORDS SUMMARY | 2025-04-10 18:59 | XMS_ITS | Encounter Summary ---
Author Organization [facility] Address [address] [place] [address] Care Team Providers Care Tube Bender Hand Name Role Phone Conchita Aden MD Primary Care Provider [phone] Encounter Details Date Type Department Care Team (Late Contact Info) Description 10/30/2024 Clinisync Result Encounter [facility] External Department Unsolicited Charity Gerard PA [address] [place] [address] [place] [address] Social History Tobacco Use Types [...] EST Narrative 10/31/2024 6:59 AM EST The [address] [address] Electrocardiograph Report Signed Patient: KING MORENO MR#: [id number] : 1960 Acct:[id number] Age/Sex: 63 / F ADM Date: 10/30/24 Loc: [place] 203-[address]: Parmjit Poon M.D. Ordering Physician: Charity Gerard Date of Service: 10/30/24 Procedure(s): ECG 12 lead Accession Number(s): [id number] cc: [facility] Test Date: 2024-10-30 Pat Name: KING MORENO Department: Room: - Gender: Female Weatherization And Housing Inspector: : 1960 Requested By: CONCHITA ADEN Order Number: [id number] Reading MD: FELIZ JENNINGS Measurements Intervals [place] Rate: 94 P: 68 PA: 126 QRS: 56 QRSD: 84 T: 90 QT: 348 QTc: 399 Interpretive Statements 1100 Sinus rhythm 4068 Nonspecific Twave abnormality, can't exclude inferolateral ischemia 8102 Low QRS voltage in chest leads 9130 borderline ECG Compared to ECG 10/29/2024 16:19:34 No significant changes Electronically Signed On 10-31-2024 6:59:03 EST by FELIZ JENNINGS Dictated By: Feliz Jennings D.O. Signed By: 10/31/24 0659 DD/ 1500 TD/TT: Human Projectile: Procedure Note Radiology, Radiologist, MD - 10/31/2024 [place] [address] Electrocardiograph Report Signed Patient: KING MORENO AMR#: [id number] : 1Acct:[id number] Age/Sex: 63 / FADM Date: 10/30/24 Loc: [place] 203-[address]: Parmjit Poon M.D. Ordering Physician: Charity Gerard Date of Service: 10/30/24 Procedure(s): ECG 12 lead Accession Number(s): [id number] cc: The [facility] Test Date: 2024-10-30 Pat Name: KING MORENO Department: Room: - Gender: Female Weatherization And Housing Inspector: : 1960 Requested By: CONCHITA ADEN Order Number: [id number] Reading MD: FELIZ JENNINGS Measurements Intervals [place] Rate: 94 P: 68 PA: 126 QRS: 56 QRSD: 84 T: 90 QT: 348 QTc: 399 Interpretive Statements 1100 Sinus rhythm 4068 Nonspecific Twave abnormality, can't exclude inferolateral ischemia 8102 Low QRS voltage in chest leads 9130 borderline ECG Compared to ECG 10/29/2024 16:19:34 No significant changes Electronically Signed On 10-31-2024 6:59:03 EST by FELIZ JENNINGS Dictated By: Feliz Jennings D.O. Signed By:10/31/24 0659 DD/ 1500 TD/TT: Human Projectile: Charity [facility] Final Result documented in this encounter Visit Diagnoses Not on filedocumented in this encounter Care Teams Tube Bender Hand Relationship Specialty Start Date End Date Conchita Aden MD PCP - General Family Medicine 11/07/24 documented as of this encounter
--- OUTSIDE RECORDS SUMMARY | 2025-04-10 18:59 | XMS_ITS | Encounter Summary ---
Author Organization [facility] Address [address] [place] [address] Care Team Providers Care Sewing Machines Salesperson Name Role Phone Conchita Aden MD Primary Care Provider [phone] Encounter Details Date Type Department Care Team (Late st Contact Info) Description 03/27/2025 External Result Encounter [facility] External Department Unsolicited Lorrie Winn MD [address] [facility] 210 [place] [address] Social History Tobacco Use Types Packs/Day Years [...] Moreno M.D. 03/27/2025 11:14 AM Dictation Location: [facility] Tech: Le [place] Transcribed By: PWS 03/27/25 1114 Dictated By: Gerber Moreno II, MD 03/27/25 1111 Signed By: <Electronically signed by Gerber Moreno II, MD in OV> 03/27/25 1114 Narrative 03/27/2025 11:16 AM EDT [facility] [place] [address] Ultrasound Report Signed Patient: Latanya Martinez MR#: [id number] : 1960 Acct:[id number] Age/Sex: 64 / F ADM Date: 03/26/25 Loc: Room: [address] [place] [address] Type: ADM IN Attending Dr: Yonis Covington [...] Procedure Note Gerber Moreno MD - 03/27/2025 [facility] Main [place] [address] [place] [address] Ultrasound Report Signed Patient: Latanya Martinez AMR#: [id number] : 1960cct:[id number] Age/Sex: 64 / FADM Date: 03/26/25 Loc: Room: [id number]: ADM IN Attending Dr: Yonis Covington DO [...] Moreno M.D. 03/27/2025 11:14 AM Dictation Location: [place] [address] Tech: Le Millan Transcribed By: [facility] 03/27/25 1114 Dictated By: Gerber Moreno II, MD 03/27/25 1111 Signed By: <Electronically signed by Gerber Moreno II, MD inOV> 03/27/25 1114 us Lorrie Winn MD IMG US PROCEDURES Final Result documented in this encounter Visit Diagnoses Not on filedocumented in this encounter Care Teams Sewing Machines Salesperson Relationship Specialty Start Date End Date Conchita Aden MD PCP - General Family Medicine 11/07/24 documented as of this encounter
--- OUTSIDE RECORDS SUMMARY | 2025-04-10 18:59 | XMS_ITS | Encounter Summary ---
Author Organization [facility] Address [address] [place] [address] Care Team Providers Care Lead Slot Technician Name Role Phone Conchita Aden MD Primary Care Provider [phone] Encounter Details Date Type Department Care Team (Late Contact Info) Description 10/22/2024 Abstract [facility] OB [address] [facility] [place] [id number] David Ewing, DO [address] [facility] [address] [place] [place], [facility] Social History Tobacco Use Types Packs/Day [...] on filedocumented in this encounter Care Teams Lead Slot Technician Relationship Specialty Start Date End Date Conchita Aden MD PCP - General Family Medicine 11/07/24 documented as of this encounter
--- NOTE | 2025-04-10 19:00 | ECG_ITS ---
[facility] Test Date: 2025-04-10 Pat Name: KING MORENO Department: Room: [facility] Gender: Female Jack Winder: : 1960 Requested By: 0923 Order Number: [id number] Bri MD: CROW MORRISON M.D. Measurements Intervals Ewen Rate: 70 P: 68 IA: 138 QRS: 69 QRSD: 90 T: -30 QT: 414 QTc: 434 Interpretive Statements 1100 Sinus rhythm 3434 Septal myocardial infarction, age undetermined 4068 Nonspecific Twave abnormality 9150 abnormal ECG Compared to ECG 04/09/2025 11:16:31 No significant changes Electronically Signed On 04-11-2025 6:48:53 EDT by CROW MORRISON M.D.
--- OUTSIDE RECORDS SUMMARY | 2025-04-10 19:00 | XMS_ITS | Encounter Summary ---
Author Organization [facility] Address [address] [place] [address] Phone Care Team Providers Care Supervisor Maintenance And Custodians Name Role Phone June Preston MD Unavailable Conchita Aden MD Primary Care Provider [phone] Encounter Details Date Type Department Care Team [...] from your doctor or pharmacy? Never 01/08/2025 [facility] Utilities Answer Date Recorded In the past 12 months has [facility] [employer], gas, oil, or water [employer] threatened to shut off services in your [...] week 01/08/2025 How often do you attend roman catholic or rastafari serv ices? Patient declined 01/08/2025 Do you belong to any clubs o r organizations such as roman catholic groups, unions, fraternal or athletic groups, or [...] Patient Health Questionnaire-2 Score 0 01/08/2025 [facility] - Occupational [...] time in the past [address] [facility], were you homeless or living in [...] EDT Hospital Encounter [facility] [place] [address] [place] [address] Kervin Fair MD [address] [place] [address] Ventricular tachycardia (Multi) 04/14/2025 11:00 AM EDT - 04/14/2025 3:00 PM EDT Surgery [facility] [place] [address] [place] [address] Kervin Fair MD [address] [place] [address] [place] [[address] (CPT )] 07/14/2025 1:00 PM EDT Office Visit [facility] 703 [facility] [address] [place] [address] Oscar Rodriguez MD 703 [facility] 2, [address] [place] [address] 09/26/2025 12:20 PM EST Appointment [facility] [address] [place] [facility] [place] [address] 09/26/2025 1:00 PM EST Office Visit [facility] [address] [facility] 320 [place] [address] June Preston MD [address] [facility] Medical Office Bldg, Steve [address] [place] [address] documented as of this encounter Visit Diagnoses Not on filedocumented in this encounter Additional Health Concerns Assessment Noted Time PHQ-9 Depression Total Score: 9 01/23/20 22 11:33 AM EDT A fall risk assessment has been complete d for the patient 03/01/2024 12:30 PM EDT documented as of this encounter Care Teams Supervisor Maintenance And Custodians Relationship Specialty Start Date End Date Conchita Aden MD [address] [place] [address] [place] [address] PCP - General Family Medicine 11/11/24 June Preston MD [address] [facility] [address], [address] [place] [address] Assembler Installer Structures Electrophysiology 09/13/24 documented as of this encounter
--- OUTSIDE RECORDS SUMMARY | 2025-04-10 19:00 | XMS_ITS | Encounter Summary ---
Author Organization [facility] Address [address] [place] [address] Phone Care Team Providers Care Safe Deposit Attendant Name Role Phone Tremaine West DO Primary Care Provider Ania Brothers AIR BAG CURER-WELFARE WORKER Unavailable Unavailable June Preston MD Unavailable Sol Keita SUPERINTENDENT MEASUREMENT Unavailable [phone] June Preston MD Unavailable Oscar Rodriguez MD Unavailable [phone] Generic Provider, No Assigned Pcp Primary Car e Provider Unavailable Diane Min RN Unavailable Unavailable June Preston MD Unavailable Conchita Aden MD Primary Care Provider [phone] Diane Min RN Unavailable Unavailable Encounter Details Date Type Department Care Team (Late st Contact Info) Description 07/22/2023 Scanned Document [facility] [address] [place] [address] Conversion, Onbase Social History Tobacco Use Types [...] EDT Hospital Encounter [facility] [place] [address] [place] [address] [place] [phone] Kervin Fair MD [address] [place] [address] Ventricular tachycardia (Multi) 04/14/2025 11:00 AM EDT - 04/14/2025 3:00 PM EDT Surgery [facility] [place] [address] [place] [address] [place] [address] Kervin Fair MD [address], [place] [id number] [place] [[address] (CPT )] 07/14/2025 1:00 PM EDT Office Visit [facility] [address] [facility] [address] [place] [address] Oscar Rodriguez MD [address] [facility] [address], [address] [place] [address] 09/26/2025 12:20 PM EST Appointment [facility] [address] [place] [address] 09/26/2025 1:00 PM EST Office Visit [facility] [address] [facility] [address] [place] [address] June Preston MD [address] [facility] Office [facility], [address] [place] [address] documented as of this encounter Procedures Procedure [...] documented as of this encounter Care Teams Safe Deposit Attendant Relationship Specialty Start Date End Date Tremaine West DO [address] [facility] Tremaine West DO [address] [address] PCP - General 01/22/22 11/05/23 Generic Provider, No Assigned Pcp, [place] [address] PCP - General [employer] Spanish Teacher 08/08/24 11/10/24 Conchita Aden MD [address] [place] [address] PCP - General Family Medicine 11/11/24 Ania Brothers, AIR BAG CURER-WELFARE WORKER [address] [place] [address] [address] Nurse Practitioner Cardiology 09/30/23 02/16/24 June Preston MD [address] [place] [address] [address] Oil Treater Cardiology 09/30/23 02/16/24 Sol Keita, SUPERINTENDENT MEASUREMENT Hydrology TechnicianDump Worker 02/19/24 05/17/24 June Preston MD [address] [facility], [address] [place] [address] Consulting Physician Cardiology 02/19/24 02/29/24 Oscar Rodriguez MD [address] [facility] [address], [address] [place] [address] Consulting Physician Cardiology 02/19/24 02/29/24 Diane Min, environmental consultantDump Worker 09/05/24 12/06/24 June Preston MD [address] [facility], [address] [place] [address] Oil Treater Electrophysiology 09/13/24 Diane Min, environmental consultantDump Worker 01/16/25 01/31/25 documented as of this encounter
--- OUTSIDE RECORDS SUMMARY | 2025-04-10 19:00 | XMS_ITS | Patient Health Record ---
Author Organization [facility] [place] Address [address] [place] [address] Care Team Providers Care Life Enrichment Director Name Role Phone Conchita Aden Primary Care Provider Unavailnii kumar Results Component Value Reference Range Notes Prothrombin Time INR Reviewed date:10/31/2024 08:21:23 PM Interpretation: Performing Lab: Notes/Report: [facility] , Prothrombin Time 64.4 9.0-11.6 sec RESULTS CALLED TO SUSSY CANO RN @BY Dilia Wilks at 2126 INR 7.41 RESULTS CALLED TO SUSSY CANO RN @BY Dilia Wilks at 2127 DESIRED INR: 2.0-3.0 CONDITIONS NOT LISTED BELOW 2.5-3.5 FOR PROSTHETIC HEART VALVE REPLACEMENT 2.5-3.5 RECURRENT THROMBOSIS Performing Lab: see note ML - [facility] LB SARS-CoV-2 Ag* Reviewed date:10/31/2024 08:21:23 PM Interpretation: Performing Lab: Notes/Report: [facility] , SARS-CoV-2 Ag NEGATIVE NEGATIVE [...] Performing Lab: see note ML - [facility] LB LACTATE or LACTIC ACID Reviewed date:10/31/2024 08:21:23 PM Interpretation: Performing Lab: Notes/Report: Y [facility] , Lactate/Lactic Acid 1.7 0.4-2.0 mmol/L Performing Lab: see note ML - [facility] LB Troponin I High Sensitivity Reviewed date:10/31/2024 08:21:23 PM Interpretation: Performing Lab: Notes/Report: [facility] , Troponin I High Sensitivity 8.6 4.0-51.3 pg/mL CUT-OFF POINTS HAVE BEEN ESTABLISHED BASED ON THE FOURTH UNIVERSAL DEFINITION OF MYOCARDIAL INFARCTION. THE UPPER REFERENCE LIMIT (URL) OF TROPONIN, DEFINED THE 99TH PERCENTILE OF cTnI DISTRIBUTION IN A REFERENCE POPULATION, HAS BEEN CONFIRMED THE DECISION THRESHOLD FOR [place] DIAGNOSIS. 99TH PERCENTILE = 51.4 PG/ML NOTE: HIGH-SENSITIVITY TROPONIN ASSAY IS NOT INTENDED TO BE USED IN ISOLATION BUT SHOULD BE INTERPRETED IN CONJUNCTION WITH OTHER DIAGNOSTIC AND CLINICAL INFORMATION. Performing Lab: see note ML - [facility] LB CBC AUTO DIFF Reviewed date:10/31/2024 08:21:23 PM Interpretation: Performing Lab: Notes/Report: [facility] , White Blood Count 14.0 4.0-11.0 10 [...] 0.00-0.03 10 3/uL Performing Lab: see note - [facility] LB PROF 14(COMP METB) Reviewed date:10/31/2024 08:21:23 PM Interpretation: Performing Lab: Notes/Report: [facility] , Sodium 136 136-145 mmol/L Potassium 4.0 [...] Lab: see note ML - [facility] LB Prothrombin Time INR Reviewed date:10/31/2024 08:21:23 PM Interpretation: Performing Lab: Notes/Report: [facility] , Prothrombin Time 25.0 9.0-11.6 sec INR 2.59 DESIRED INR: 2.0-3.0 CONDITIONS NOT LISTED BELOW 2.5-3.5 FOR PROSTHETIC HEART VALVE REPLACEMENT 2.5-3.5 RECURRENT THROMBOSIS Performing Lab: see note ML - [facility] LB BNP Reviewed date:11/02/2024 03:17:53 PM Interpretation: Performing Lab: Notes/Report: [facility] , NT Pro B Type Natriuretic Pept 398.0 <=900.0 pg/mL Performing Lab: see note ML - [facility] LB CBC AUTO DIFF Reviewed date:11/02/2024 03:17:53 PM Interpretation: Performing Lab: Notes/Report: [facility] , White Blood Count 16.1 4.0-11.0 10 [...] Lab: see note ML - [facility] LB PROF 14(COMP METB) Reviewed date:11/02/2024 03:17:53 PM Interpretation: Performing Lab: Notes/Report: [facility] , Sodium 135 136-145 mmol/L Potassium 3.6 [...] 0.7 Performing Lab: see note ML - [facility] Prothrombin Time INR Reviewed date:11/02/2024 03:17:53 PM Interpretation: Performing Lab: Notes/Report: [facility] , Prothrombin Time 11.9 9.0-11.6 sec INR 1.14 DESIRED INR: 2.0-3.0 CONDITIONS NOT LISTED BELOW 2.5-3.5 FOR PROSTHETIC HEART VALVE REPLACEMENT 2.5-3.5 RECURRENT THROMBOSIS Performing Lab: see note ML - [facility] MAGNESIUM Reviewed date:11/02/2024 03:17:53 PM Interpretation: Performing Lab: Notes/Report: [facility] , Magnesium 2.0 1.8-2.4 mg/dL Performing Lab: see note - [facility] Prothrombin Time INR Reviewed date:11/02/2024 03:17:53 PM Interpretation: Performing Lab: Notes/Report: [facility] , Prothrombin Time 12.9 9.0-11.6 sec INR 1.24 DESIRED INR: 2.0-3.0 CONDITIONS NOT LISTED BELOW 2.5-3.5 FOR PROSTHETIC HEART VALVE REPLACEMENT 2.5-3.5 RECURRENT THROMBOSIS Performing Lab: see note - [facility] LB Troponin I High Sensitivity Reviewed date:10/30/2024 08:29:22 PM Interpretation: Performing Lab: Notes/Report: [facility] , Troponin I High Sensitivity 6.0 4.0-51.3 pg/mL CUT-OFF POINTS HAVE BEEN ESTABLISHED BASED ON THE FOURTH UNIVERSAL DEFINITION OF MYOCARDIAL INFARCTION. THE UPPER REFERENCE LIMIT (URL) OF TROPONIN, DEFINED THE 99TH PERCENTILE OF cTnI DISTRIBUTION IN A REFERENCE POPULATION, HAS BEEN CONFIRMED THE DECISION THRESHOLD FOR [place] DIAGNOSIS. 99TH PERCENTILE = 51.4 PG/ML NOTE: HIGH-SENSITIVITY TROPONIN ASSAY IS NOT INTENDED TO BE USED IN ISOLATION BUT SHOULD BE INTERPRETED IN CONJUNCTION WITH OTHER DIAGNOSTIC AND CLINICAL INFORMATION. Performing Lab: see note ML - [facility] LB LACTATE or LACTIC ACID Reviewed date:10/30/2024 08:29:21 PM Interpretation: Performing Lab: Notes/Report: [facility] , Lactate/Lactic Acid 3.0 0.4-2.0 mmol/L RESULT S CALLED TO SARA ZAVALETA Performing Lab: see note ML - [facility] LB INFLUENZA A AND B AG Reviewed date:10/31/2024 08:21:23 PM Interpretation: Performing Lab: Notes/Report: [facility] , Influenza Virus A Antigen Negative Negative [...] Performing Lab: see note ML - [facility] LB BNP Reviewed date:10/30/2024 08:29:21 PM Interpretation: Performing Lab: Notes/Report: [facility] , NT Pro B Type Natriuretic Pept 352.0 <=900.0 pg/mL Performing Lab: see note ML - [facility] LB PROF 14(COMP METB) Reviewed date:11/02/2024 03:17:53 PM Interpretation: Performing Lab: Notes/Report: [facility] , Sodium 139 136-145 mmol/L Potassium 4.0 [...] Lab: see note ML - [facility] LB CBC AUTO DIFF Reviewed date:11/02/2024 03:17:53 PM Interpretation: Performing Lab: Notes/Report: [facility] , White Blood Count 20.8 [...] Performing Lab: see note ML - [facility] LB XR chest 2V Reviewed date:11/02/2024 03:17:53 PM Interpretation: Performing Lab: Notes/Report: Source Facility: [place] [address] XRay Report Signed Patient: KING MORENO MR#: [id number] : 1960 Acct:[id number] Age/Sex: 63 / F ADM Date: 10/30/24 Loc: [place] 203-[address]: Samuel Snowden M.D. Ordering Physician: Samuel Snowden M.D. Date of Service: 11/01/24 Procedure(s): XR chest 2V Accession Number(s): [id number] cc: Conchita Aden M.D.; aSmuel Snowden M.D. [place] [address] Patient Name: KING MORENO MRN: [id number] date: 1960 Sex: F Assigned Patient Location: [place] Current Patient Location: [place] Accession/Order Number: [id number] Exam Date: 11/01/2024 09:30 Report Date: 11/01/2024 10:00 At the request of: SAMUEL SNOWDEN Procedure: XR chest 2V EXAMINATION: XR [...] Signed By: 11/01/24 1002 DD/ 1000 TD/TT: House Mover: [place] [address] XRay Report Signed Patient: NANETTE MORENO MR#: [id number] : 1960 Acct:[id number] Age/Sex: 63 / F ADM Date: 10/30/24 Loc: [place] 203-[address]: Fredi Snowden M.D. Ordering Physician: Samuel Snowden M.D. Date of Service: 11/01/24 Procedure(s): XR [address] 2V Accession Number(s): [id number] cc: Conchita Aden M.D.; Samuel Snowden M.D. [place] [address] Patient Name: KING MORENO MRN: [id number] date: 1960 Sex: F Assigned Patient Location: [place] Current Patient Location: [place] Accession/Order Numb er: [id number] Exam Date: 09:30 Report Date: 11/01/2024 10:00 At the request of: SAMUEL SNOWDEN Procedure: XR chest 2V EXAMINATION: XR [...] Signed By: 11/01/24 1002 DD/ 1000 TD/TT: House Mover: Reason For Referral No Information Problems Problem Type SNOMED Code ICD Code Onset Dates Problem Status W/U Status Risk Notes Problem Benign essential HTN (I10) Active confirmed Problem Bipolar 1 disorder (554943513) Bipolar 1 disorder (F31.9) Active confirmed Problem Diabetes mellitus (05470037) Diabetes mellitus (E11.9) Active confirmed Plan Of Treatment Next Appt Details Provider Name:Mariah Logan , 04/25/2025 01:30:00 PM, [address] [place], [address], Insurance Providers Payer Name Payer Address Payer Phone Subscriber Number Group Number Insured Name Patient Relationship to Insured Coverage Start Date Coverage End Date [employer]V PRIMARY MEDICARE [address] [place] [address] [id number] King Moreno Self - patient is the insured 3 MEDICAID [place] 2ND INS [address] OFFICE OF [place], [place] [id number] King Moreno Self - patient is the insured
[2025-04-10 19:57] LABS: Troponin I High Sensitivity 12.7 pg/mL (4.0-51.3)
--- NOTE | 2025-04-10 20:11 | ED.DIZZY1 ---
HPI - Dizziness General Chief Complaint: Dizziness Stated Complaint: DIZZY Time Seen by Provider: 04/10/25 19:00 History of Present Illness HPI Narrative: 64-year-old female was brought back into the emergency room after she was discharged. Open percolate patient became faint lightheaded feel like she was going to pass out. Back into the emergency room was placed in a wheelchair and had a near syncopal event. Any chest pain states she felt dizzy. Just prior to discharge with this patient she had a IV that was removed and she became lightheaded when she saw the blood and bleeding. Nurse did put a pressure dressing on it but when she went out to be discharged and into the parking lot she became lightheaded. Appears to have a vasovagal episode. EKG was performed on arrival. Patient is not comfortable going home. Related Data Home Medications ?Medication ?Instructions ?Recorded ?Confirmed amiodarone 200 mg tablet 200 mg PO Q24H 10/22/24 04/10/25 lansoprazole 30 mg capsule,delayed 30 mg PO .ACB 10/22/24 04/10/25 release meclizine 25 mg tablet 25 mg PO BID PRN dizziness 10/22/24 04/10/25 melatonin 5 mg tablet 5 mg PO DAILY 10/22/24 04/10/25 metoprolol succinate 25 mg 25 mg PO DAILY 10/22/24 04/10/25 tablet,extended release 24 hr mexiletine 150 mg capsule 150 mg PO Q8H 10/22/24 04/10/25 ranolazine 500 mg tablet,extended 500 mg PO Q12H 10/22/24 04/10/25 release,12 hr rosuvastatin 10 mg tablet 10 mg PO DAILY 10/22/24 04/10/25 magnesium 200 mg tablet 200 mg PO BID 10/30/24 04/10/25 lisinopril 5 mg tablet 5 mg PO .QD 10/31/24 04/10/25 quetiapine 100 mg tablet 200 mg PO .QHS 10/31/24 04/10/25 baclofen 10 mg tablet 10 mg PO TID PRN muscle spasm 02/01/25 04/10/25 ferrous sulfate 324 mg (65 mg mg PO 04/09/25 iron) tablet,delayed release rivaroxaban 10 mg tablet (Xarelto) 10 mg PO Q24H 04/09/25 04/10/25 ropinirole 1 mg tablet 1 mg PO HS 04/09/25 04/10/25 sertraline 25 mg tablet 25 mg PO Q24H 04/09/25 04/10/25 spironolactone 25 mg tablet 25 mg PO .Q24 04/09/25 04/10/25 Previous Rx's ?Medication ?Instructions ?Recorded lorazepam 0.5 mg tablet (Ativan) 0.5 mg PO Q8H PRN twitching 4 days 03/25/25 #14 tabs methylprednisolone 4 mg tablets in See Rx Instructions .Route 03/25/25 a dose pack (Medrol (Mat)) .COMPLEX #21 ea Allergies Allergy/AdvReac Type Severity Reaction Status Date / Time No Known Drug Allergies Allergy Verified 04/10/25 15:23 Review of Systems ROS Status of ROS 10 or more systems reviewed and unremarkable except as noted in history and below [facility] Medical History Pacemaker ?Z95.0 - Presence of cardiac pacemaker (ICD-10) Acute GI bleeding ?K92.2 - Gastrointestinal hemorrhage, unspecified (ICD-10) Elevated INR ?R79.1 - Abnormal coagulation profile (ICD-10) Pneumonia ?J18.9 - Pneumonia, unspecified organism (ICD-10) Dyspnea ?R06.00 - Dyspnea, unspecified (ICD-10) Dizziness ?R42 - Dizziness and giddiness (ICD-10) Diabetes ?E11.9 - Type 2 diabetes mellitus without complications (ICD-10) Bipolar 1 disorder, depressed ?F31.9 - Bipolar disorder, unspecified (ICD-10) HTN (hypertension) ?I10 - Essential (primary) hypertension (ICD-10) High cholesterol ?E78.00 - Pure hypercholesterolemia, unspecified (ICD-10) Afib ?I48.91 - Unspecified atrial fibrillation (ICD-10) Surgical History H/O tubal ligation ?Z98.51 - Tubal ligation status (ICD-10) Hx of cholecystectomy ?Z90.49 - Acquired absence of other specified parts of digestive tract (ICD-10) Status post other internal cardiac defibrillator procedure ?Z95.0 - Presence of cardiac pacemaker (ICD-10) History of bowel resection ?Z90.49 - Acquired absence of other specified parts of digestive tract (ICD-10) Family History Father Heart attack Brother Heart attack Sister Heart attack Diabetes Son Diabetes Social History (Updated 04/10/25 @ 22:13 by Franchesca Castro RN) Within the past year, how often did you have a drink containing alcohol: never Within the past year, how often did you have six or more drinks on one occasion: never Score interpretation: A score less than 3 is consistent with normal alcohol consumption. 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 General: The patient appears well and in no apparent distress. Patient is resting comfortably on cart. Skin: Warm, dry, no pallor noted. There is no rash noted. Head: Normocephalic, atraumatic Eye: Normal conjunctiva, no drainage, EOMI. PERRL Ears, Nose, Mouth, and Throat: oral mucosa is moist. Nares patent. Mouth without vesicles. Ear canals patent. Tm's without Erythema Cardiovascular: Regular Rate and Rhythm Respiratory: Patient is in no distress, no accessory muscle use, lungs are clear to auscultation, no wheezing, rales or rhonchi Back: non-tender, no CVA tenderness bilaterally to percussion. GI: Normal bowel sounds, no tenderness to palpation, no masses appreciated. No rebound, guarding, or rigidity noted. Musculoskeletal: The patient has no evidence of calf tenderness, no pitting edema, symmetrical pulses noted bilaterally Neurological: A&O x4, normal speech Psychiatric: Cooperative Constitutional Vital Signs, click to edit/add: Last Vital Signs Temp 97.8 F 04/11/25 03:36 Pulse 82 04/11/25 06:00 Resp 18 04/11/25 03:36 BP 90/58 04/11/25 03:36 Pulse Ox 94 L 04/11/25 03:36 O2 Del Method Room Air 04/11/25 03:36 Course Vital Signs Vital signs: Vital Signs Pulse Rate 72 04/10/25 20:42 Blood Pressure 127/79 04/10/25 20:42 Pulse Oximetry 100 04/10/25 20:42 Temperature 97.8 F 04/11/25 03:36 Pulse Rate 82 04/11/25 06:00 Respiratory Rate 18 04/11/25 03:36 Blood Pressure 90/58 04/11/25 03:36 Pulse Oximetry 94 L 04/11/25 03:36 Oxygen Delivery Method Room Air 04/11/25 03:36 MDM - Dizziness MDM Narrative Medical decision making narrative: 64-year-old female was brought back into the emergency room after she was discharged. Open percolate patient became faint lightheaded feel like she was going to pass out. Back into the emergency room was placed in a wheelchair and had a near syncopal event. Any chest pain states she felt dizzy. Just prior to discharge with this patient she had a IV that was removed and she became lightheaded when she saw the blood and bleeding. Nurse did put a pressure dressing on it but when she went out to be discharged and into the parking lot she became lightheaded. Appears to have a vasovagal episode. EKG was performed on arrival. Patient is not comfortable going home. I had discharged this patient when she went out to the parking lot she came dizzy and stated she felt like she was going to pass out was brought back in here to the emergency room complaining of dizziness she was diaphoretic. EKG showed a normal sinus rhythm troponin was repeated from her previous and is continued to be negative. Patient does have a known history of an iron deficiency anemia and takes medication that was just started by her primary care physician. Patient is not comfortable going home. When she did come back into the emergency room ultrasound was ordered per request of CT scan due to the right ovarian cyst. Ultrasound shows a fibroid cyst no free fluid. She has no abdominal pain when I palpate today. Patient be admitted for IV fluids and anemia. Observation. I spoke to Viridiana concerning this patient's care she will be admitted telemetry to Dr. Roberson. Differential Diagnosis Differential diagnosis: Likely other (iron deficiency anemia, near syncope) Medical Records Attestation: I reviewed the patient's medical records. Lab Data Attestation: I reviewed the patient's lab results. Labs: Lab Results 04/10/25 Range/Units 19:36 Troponin I High Sens 12.7 (4.0-51.3) pg/mL Imaging Data us: My impression: 4 cm right ovarian cyst appears to be fibroid no free fluid ECG Data Attestation: ?I have reviewed the pertinent ECG results. Interpretation: 2002 70 bpm TX interval 138 ms QRS duration 90 ms artifact noted no STEMI Discharge Plan Discharge Chief Complaint: Dizziness Clinical Impression: Near syncope, Diarrhea, Ovarian cyst Patient Disposition: Admitted as Observation Time of Disposition Decision: 20:10 Condition: Good Discharge Date/Time: 04/10/25 21:27
[2025-04-10 20:42] VITALS: BP 127/79; PULSE 72; O2SAT 100
[2025-04-10 21:50] VITALS: PULSE 67
[2025-04-10 21:58] VITALS: BP 136/77; PULSE 77; TEMP 36.7; O2SAT 98; BMI 28.2
[2025-04-10 22:05] VITALS: O2SAT 98
[2025-04-10 23:38] VITALS: BP 130/77; PULSE 69; TEMP 36.6; O2SAT 98
[2025-04-10 23:48] VITALS: PULSE 72
[2025-04-11] VITALS (7 sets, daily range): BP systolic 90–129; BP diastolic 58–73; PULSE 72–84; TEMP 36.6; O2SAT 94–96
[2025-04-11] MEDS: QUETIAPINE FUMARATE 100 MG TABLET 200 MG PO (00:34)
[2025-04-11] MEDS: ROPINIROLE HCL 1 MG TABLET PO ×2 (00:34→09:12)
[2025-04-11] MEDS: MECLIZINE HCL 12.5 MG TABLET 25 MG PO (00:34)
[2025-04-11] MEDS: RANOLAZINE 500 MG TAB.ER.12H PO ×2 (00:34→11:34)
[2025-04-11] MEDS: LORAZEPAM 0.5 MG TABLET PO (00:34)
[2025-04-11] MEDS: PANTOPRAZOLE SODIUM 40 MG TABLET.DR PO (05:37)
--- NOTE | 2025-04-11 08:26 | P.HP_ITS ---
HPI H&P: HPI History of Present Illness Chief complaint: DIZZY, NEAR SYCOPE, ANEMIA, DIARRHEA Narrative: Patient is a 64 y.o with past medical history of HTN, Afib (taking Xarelto), pacemaker, non-insulin dep type 2 diabetes, Bipolar type 1, GERD, who presented to the ER on multiple occasions 04/04/25, 04/09/25, 04/10/25. The most recent was yesterday with some abdominal pain and diarrhea, nausea and vomiting. A CT was performed which showed no acute process but incidental right ovarian cyst and cornelio an ultrasound pelvis was performed which showed the right ovarian cyst 4.4 cm most likely fibroid. Patient was given IVF and was going to be discharged home when patient become dizzy when they removed her IV and had near syncopal event so she was admitted for this. WBC's 11.9, hb 8.8, cr 0.75, UA negative, C- diff on 04/08/25 negative, stool hemoccult negative, trop 12.7, Lipase 126, T/ALT normal. Patient feels better this morning. She denies any chest pain, shortness of breath or any other feeling of passing out or dizziness. She reports that she seen her PCP thursday who has referred her to Dr Logan for Iron def anemia and also to GI for further work up of her prior GI bleeds. She denies any acute bleeding. She has been having diarrhea and has only tried 1 dose of imodium. She was able to tolerate breakfast this morning without issues. No reported events overnight on Telemetry. Opioid HPI Opioid Management Most Recent Pain and Opioid Data: Last Pain Scale 9 04/10/25, 15:52 Last Pain Intensity 0 10/31/24, 09:34 Last Pain Assessment 04/10/25, 22:05 Last MAR Pain Assessment 04/10/25, 15:52 Last ORT Total Score 0 04/10/25, 21:58 Last ORT Risk Category Low Risk 04/10/25, 21:58 Review of Systems ROS Narrative ROS: a complete review of systems were reviewed with patient and are positive as below or listed in History of Chief Complaint. General: no fever, chills, night sweats Head: no headache, trauma, visual changes, nausea or vomiting Skin: no reported rashes, itching or sores Eyes: no blurriness of vision Ears: no reported hearing loss, vertigo, earache, or tinnitus Throat: no sore throat, hoarseness, swelling of neck, or tongue pain Heart: no chest pain Lungs: no shortness of breath or cough GI: diarrhea and vomiting/nausea Urinary: no urinary urgency, frequency or pain Neuro: no numbness or tingling HEM: no bleeding issues or bruising ENDO:no thyroid problems Psych: anxiety and depression PFSH [facility] Medical History (Updated 04/11/25 @ 11:20 by Alexandra Roberson DO) GERD without esophagitis ?K21.9 - Gastro-esophageal reflux disease without esophagitis (ICD-10) Bulging lumbar disc ?M51.369 - Other intervertebral disc degeneration, lumbar region without mention of lumbar back pain or lower extremity pain (ICD-10) Restless leg syndrome ?G25.81 - Restless legs syndrome (ICD-10) Restless leg syndrome ?G25.81 - Restless legs syndrome (ICD-10) Pacemaker ?Z95.0 - Presence of cardiac pacemaker (ICD-10) Acute GI bleeding ?K92.2 - Gastrointestinal hemorrhage, unspecified (ICD-10) Elevated INR ?R79.1 - Abnormal coagulation profile (ICD-10) Pneumonia ?J18.9 - Pneumonia, unspecified organism (ICD-10) Dyspnea ?R06.00 - Dyspnea, unspecified (ICD-10) Dizziness ?R42 - Dizziness and giddiness (ICD-10) Diabetes ?E11.9 - Type 2 diabetes mellitus without complications (ICD-10) Bipolar 1 disorder, depressed ?F31.9 - Bipolar disorder, unspecified (ICD-10) HTN (hypertension) ?I10 - Essential (primary) hypertension (ICD-10) High cholesterol ?E78.00 - Pure hypercholesterolemia, unspecified (ICD-10) Afib ?I48.91 - Unspecified atrial fibrillation (ICD-10) Surgical History H/O tubal ligation ?Z98.51 - Tubal ligation status (ICD-10) Hx of cholecystectomy ?Z90.49 - Acquired absence of other specified parts of digestive tract (ICD- 10) Status post other internal cardiac defibrillator procedure ?Z95.0 - Presence of cardiac pacemaker (ICD-10) History of bowel resection ?Z90.49 - Acquired absence of other specified parts of digestive tract (ICD- 10) Family History Father Heart attack Brother Heart attack Sister Heart attack Diabetes Son Diabetes Social History Within the past year, how often did you have a drink containing alcohol: never Within the past year, how often did you have six or more drinks on one occasion: never Score interpretation: A score less than 3 is consistent with normal alcohol consumption. 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 Known occupational exposures/hazards: No Highest level of school completed/degree received: GED or equivalent Little interest or pleasure in doing things: not at all Feeling down, depressed, or hopeless: not at all Feel stressed/tense/nervous/anxious/difficulty sleeping: not at all Meds Home Medications and Allergies Home Medications ?Medication ?Instructions ?Recorded ?Confirmed ?Type amiodarone 200 mg tablet 200 mg PO Q24H 10/22/2407/27 History lansoprazole 30 mg capsule,delayed 30 mg PO .ACB 10/2204/10/25 History release meclizine 25 mg tablet 25 mg PO BID PRN dizziness 1 12/23/23 04/10/25 History melatonin 5 mg tablet 5 mg PO DAILY 10/22/2404/10 History metoprolol succinate 25 mg 25 mg PO DAILY 10/22/2407/27 History tablet,extended release 24 hr mexiletine 150 mg capsule 150 mg PO Q8H 10/22/2404/10 History ranolazine 500 mg tablet,extended 500 mg PO Q12H 10/2204/10/25 History release,12 hr rosuvastatin 10 mg tablet 10 mg PO DAILY 10/22/2407/27 History magnesium 200 mg tablet 200 mg PO BID 10/30/2404/10 History lisinopril 5 mg tablet 5 mg PO .QD 10/31/24 5 History quetiapine 100 mg tablet 200 mg PO .QHS 10/31/2407/27 History baclofen 10 mg tablet 10 mg PO TID PRN muscle spas m 02/01/25 04/10/25 History lorazepam 0.5 mg tablet (Ativan) 0.5 mg PO Q8H PRN twi tching 4 days 03/25/25 04/10/25 Rx #14 tabs ferrous sulfate 324 mg (65 mg mg PO 04/09/25 History iron) tablet,delayed release rivaroxaban 10 mg tablet (Xarelto) 10 mg PO Q24H 04/0904/10/25 History ropinirole 1 mg tablet 1 mg PO HS 04/09/25 04/10/25 History sertraline 25 mg tablet 25 mg PO Q24H 04/09/2504/10 History spironolactone 25 mg tablet 25 mg PO .Q24 04/09/2507/27 History Allergies Allergy/AdvReac Type Severity Reaction Status Date / Time No Known Drug Allergies Allergy Verified 04/10/25 15:23 Exam Narrative Exam Narrative: General: Patient is alert, and oriented to person, place and time with normal affect, proper hygiene, she is walking up and down the hallways Skin: no visible rashes, or ulcers Head: atraumatic, acephalic Eyes: PERRLA, no nystagmus present, conjunctiva clear, no scleral icterus Ears: normal gross auditory acuity Heart: Normal rate and rhythm, no murmurs/rubs/gallops Lungs: no audible wheezes, crackles and normal breath sounds all lung goss Abdomen: Normal audible bowel sounds, no distension, No palpable masses, no organomegaly, no rebound/guarding/ or rigidity Musculoskeletal: no swelling bilateral lower extremities Neuro: CN II-X grossly intact Constitutional Vital Signs, click to edit/add: Last Vital Signs Temp 97.8 F 04/11/25 03:36 Pulse 77 04/11/25 07:58 Resp 18 04/11/25 03:36 BP 90/58 04/11/25 03:36 Pulse Ox 94 L 04/11/25 03:36 O2 Del Method Room Air 04/11/25 03:36 Assessment and Plan Assessment and Plan (1) Gastroenteritis and colitis, viral: Assessment and Plan: continue with gentle IVF hydration, recheck morning labs showed hb 7.9, lipase from 178 to 100, discussed most likely for IVF and vomiting. She has close outpatient follow up. C diff negative, discussed trying IMODIUM (2) Near syncope: Assessment and Plan: based on history, sounds like Vasovagal reaction. Labs stable, vitals stable. Has been on telemetry all night without events. Discharge home today. (3) Ovarian cyst: Assessment and Plan: appears to be fibroid on ultrasound. Has outpatient follow up with Dr. Ewing Qualifiers: Laterality: right Qualified Code(s): N83.201 - Unspecified ovarian cyst, right side (4) Diabetes: Assessment and Plan: monitor, SSI if needed while hospitalized Qualifiers: Diabetes mellitus complication status: without complication Diabetes mellitus termite exterminator helper insulin use: without termite exterminator helper use Diabetes mellitus type: type 2 Qualified Code(s): E11.9 - Type 2 diabetes mellitus without complications (5) Bipolar 1 disorder, depressed: Assessment and Plan: continue ativan, seroquel, zoloft (6) HTN (hypertension): Assessment and Plan: continue metoprolol, amiodarone, lisinopril, spironolactone Qualifiers: Hypertension type: primary hypertension Qualified Code(s): I10 - Essential (primary) hypertension (7) High cholesterol: Assessment and Plan: continue rosuvastatin (8) Afib: Assessment and Plan: continue xarelto, mexiletine, metoprolol and amiodarone Qualifiers: Atrial fibrillation type: unspecified chronic Qualified Code(s): I48.20 - Chronic atrial fibrillation, unspecified (9) Pacemaker: (10) Restless leg syndrome: Assessment and Plan: continue requip (11) GERD without esophagitis: Assessment and Plan: will place on protonix (12) Anemia: Assessment and Plan: Patient will need recheck CBC in 3-5 days. She has appointment with Hematology 04/25/25, and close follow up with PCP. Stool Hem was negative. Discharge hemoglobin was 7.9. Qualifiers: Anemia type: iron deficiency Iron deficiency anemia type: unspecified iron deficiency Qualified Code(s): D50.9 - Iron deficiency anemia, unspecified Plan Patient is a full code Continue xarelto Patient is in observation and is not expected to cross 2 midnights.
[2025-04-11 09:00] LABS: Basophils Absolute Auto 0.1 10^3/uL (0.0-0.1); Eosinophils Absolute Auto 0.2 10^3/uL (0.0-0.7); Eosinophils Percent Auto 1.7 % (0.9-7.0); Hematocrit 25.4 % (36.0-48.0); Hemoglobin 7.9 g/dL (12.0-16.0); Immature Granulocytes Abs Auto 0.07 10^3/uL (0.00-0.03); Immature Granulocytes Pct Auto 0.5 % (0.0-0.5); Lymphocytes Absolute Auto 3.3 10^3/uL (1.2-3.8); Lymphocytes Percent Auto 25.2 % (20.5-60.0); Mean Corpuscular HGB Conc 31.1 g/dL (29.9-35.2); Mean Corpuscular Hemoglobin 22.6 pg (26.7-34.0); Mean Corpuscular Volume 72.8 fL (81.0-99.0); Mean Platelet Volume 9.8 fL (9.5-13.5); Monocytes Absolute Auto 0.9 10^3/uL (0.3-0.8); Monocytes Percent Auto 6.6 % (1.7-12.0); Neutrophils Absolute Auto 8.6 10^3/uL (1.4-6.5); Platelet Count 632 10^3/uL (150-450); Red Blood Count 3.49 10^6/uL (4.20-5.40); Red Cell Distribution Width 20.7 % (11.0-15.0); White Blood Count 13.2 10^3/uL (4.0-11.0)
[2025-04-11] MEDS: METOPROLOL SUCCINATE 25 MG TAB.ER.24H PO (09:12)
[2025-04-11] MEDS: AMIODARONE HCL 200 MG TABLET PO (09:12)
[2025-04-11] MEDS: SPIRONOLACTONE 25 MG TABLET PO (09:12)
[2025-04-11] MEDS: RIVAROXABAN 10 MG TABLET PO (09:12)
[2025-04-11] MEDS: ATORVASTATIN CALCIUM 40 MG TABLET PO (09:12)
[2025-04-11 09:13] LABS: Alanine Aminotransferase 29 U/L (14-59); Albumin Globulin Ratio 0.8; Albumin Level 2.8 g/dL (3.4-5.0); Alkaline Phosphatase 53 U/L (46-116); Anion Gap 15.6; Aspartate Amino Transferase 38 U/L (15-37); BUN Creatinine Ratio 12.7; Bilirubin Total 0.3 mg/dL (0.2-1.0); Calcium 8.7 mg/dL (8.5-10.1); Carbon Dioxide 22.6 mmol/L (21.0-32.0); Chloride 101 mmol/L (98-107); Estimated GFR (African America >60 (>=60 mL/min/1.73m^2); Estimated GFR (Non-African Ame >60 (>=60 mL/min/1.73m^2); Globulin 3.7 g/dL; Glucose 107 mg/dL (74-106); Potassium 4.2 mmol/L (3.5-5.1); Sodium 135 mmol/L (136-145); Total Protein 6.5 g/dL (6.4-8.2)
[2025-04-11] MEDS: SERTRALINE HCL 50 MG TABLET 25 MG PO (09:13)
[2025-04-11] MEDS: LACTATED RINGER'S SOLUTION 1,000 ML 50 ML IV (09:13)
[2025-04-11] MEDS: LISINOPRIL 5 MG TABLET PO (09:13)
[2025-04-11] MEDS: MAGNESIUM OXIDE 400 MG TABLET 200 MG PO (09:13)
--- NOTE | 2025-04-11 10:42 | CM.NOTE ---
Rounds made with Dr. Roberson. Dr. Roberson reviews labs and Radiology findings with Latanya. Plan for discharge today. Follow up with PCP ~7 days.
--- NOTE | 2025-04-11 11:22 | PM.DS1 ---
DS: Providers Provider Date of admission: 04/10/25 21:27 Primary care physician: JERI FLETCHER Attending physician on admission: Alexandra Roberson Consults: 04/11/25 08:47 Physical Therapy Eval and Treat Routine Reason for consultation: dizziness/presyncopal episode Has provider been notified: No 04/11/25 09:00 Occupational Therapy Eval and Treat Routine Reason for consultation: Pre-syncope Has provider been notified: No Physical Therapy Eval and Treat Routine Reason for consultation: Pre-syncope Has provider been notified: No Discharging clinician: Alexandra Roberson DS: Diagnosis Discharge Diagnosis (1) Gastroenteritis and colitis, viral: (2) Near syncope: (3) Ovarian cyst: Qualifiers: Laterality: right Qualified Code(s): N83.201 - Unspecified ovarian cyst, right side (4) Diabetes: Qualifiers: Diabetes mellitus type: type 2 Diabetes mellitus snf insulin use: without termite control servicer use Diabetes mellitus complication status: without complication Qualified Code(s): E11.9 - Type 2 diabetes mellitus without complications (5) Bipolar 1 disorder, depressed: (6) HTN (hypertension): Qualifiers: Hypertension type: primary hypertension Qualified Code(s): I10 - Essential (primary) hypertension (7) High cholesterol: (8) Afib: Qualifiers: Atrial fibrillation type: unspecified chronic Qualified Code(s): I48.20 - Chronic atrial fibrillation, unspecified (9) Pacemaker: (10) Restless leg syndrome: (11) GERD without esophagitis: (12) Anemia: Qualifiers: Anemia type: iron deficiency Iron deficiency anemia type: unspecified iron deficiency Qualified Code(s): D50.9 - Iron deficiency anemia, unspecified DS: Summary Hospital Course Hospital Course: Please see H&P. Patient has close outpatient follow up's scheduled. Will need recheck CBC this week. She may take Imodium for diarrhea. Please return to the ER with any worsening signs or symptoms. Status at Discharge Functional status at discharge: independent ambulation Overall status at discharge: patient is back to baseline Time Spent with Patient Time attestation: Total time spent providing and/or coordinating discharge services: Time spent: greater than 30 minutes Exam Narrative Exam Narrative: no change at discharge from the admitted exam H&P dated 04/11/25 Constitutional Vital Signs, click to edit/add: Last Vital Signs Temp 97.9 F 04/11/25 08:00 Pulse 84 04/11/25 09:48 Resp 18 04/11/25 08:00 BP 129/73 04/11/25 08:00 Pulse Ox 96 04/11/25 08:00 O2 Del Method Room Air 04/11/25 08:00 DS: Data Data Completed and Pending Labs on day of discharge: Labs from last 24 hours 04/11/25 04/10/25 08:48 19:36 WBC 13.2 H RBC 3.49 L Hgb 7.9 L Hct 25.4 L MCV 72.8 L MCH 22.6 L MCHC 31.1 RDW 20.7 H Plt Count 632 H MPV 9.8 Neut % (Auto) 65.0 Lymph % (Auto) 25.2 [place] % (Auto) 6.6 Eos % (Auto) 1.7 Baso % (Auto) 1.0 Neut # (Auto) 8.6 H Lymph # (Auto) 3.3 [place] # (Auto) 0.9 H Eos # (Auto) 0.2 Baso # (Auto) 0.1 Abs Immat Gran (auto) 0.07 H Imm/Tot Granulo (auto) 0.5 Sodium 135 L Potassium 4.2 Chloride 101 Carbon Dioxide 22.6 Anion Gap 15.6 BUN 9.0 Creatinine 0.71 Est GFR ( Amer) >60 Est GFR (Non-Af Amer) >60 BUN/Creatinine Ratio 12.7 Glucose 107 H Calcium 8.7 Total Bilirubin 0.3 AST 38 H ALT 29 Alkaline Phosphatase 53 Troponin I High Sens 12.7 Total Protein 6.5 Albumin 2.8 L Globulin 3.7 Albumin/Globulin Ratio 0.8 Lipase 100.0 H Discharge Plan Discharge Disposition: Home, Self-Care Condition: Good Discharge Medications: Continued baclofen 10 mg tablet 10 mg PO TID PRN (Reason: muscle spasm) lorazepam [Ativan] 0.5 mg tablet 0.5 mg PO Q8H PRN (Reason: twitching) 4 Days Qty: 14 0RF ferrous sulfate 324 mg (65 mg iron) tablet,delayed release (DR/EC) PO Xarelto 10 mg tablet 10 mg PO Q24H ropinirole 1 mg tablet 1 mg PO HS spironolactone 25 mg tablet 25 mg PO .Q24 sertraline 25 mg tablet 25 mg PO Q24H amiodarone 200 mg tablet 200 mg PO Q24H lansoprazole 30 mg capsule,delayed release(DR/EC) 30 mg PO .ACB meclizine 25 mg tablet 25 mg PO BID PRN (Reason: dizziness) melatonin 5 mg tablet 5 mg PO DAILY metoprolol succinate 25 mg tablet extended release 24 hr 25 mg PO DAILY mexiletine 150 mg capsule 150 mg PO Q8H ranolazine 500 mg tablet extended release 12 hr 500 mg PO Q12H rosuvastatin 10 mg tablet 10 mg PO DAILY magnesium 200 mg tablet 200 mg PO BID quetiapine 100 mg tablet 200 mg PO .QHS lisinopril 5 mg tablet 5 mg PO .QD Discontinued methylprednisolone [Medrol (Mat)] 4 mg tablets,dose pack See Rx Instructions .Route .COMPLEX Qty: 21 0RF Rx Instructions: Take as directed Activity: increase activity as tolerated Diet: advance to your usual diet Print Language: Greenlandic Forms: Portal Instructions Follow Up Appointments: April 13 @ 2pm with Jeri Fletcher NP [phone] Keep 04/[address] Logan [phone]
--- NOTE | 2025-04-11 12:30 | SWNOTE1 ---
SW and I met with pt in room. Pt lives at home by herself and she is independent. Pt stated she has a granddaughter that lives nearby for support. Pt does not have any services coming into the home and she does not use any DME. Pt denies any needs at this time.
--- NOTE | 2025-04-11 12:30 | SWNOTE1 ---
Medicare Outpatient Observation Notice reviewed and discussed with patient. Pt. verbalized understanding and signed the form. Original given to patient and copy placed in patient?s chart.
--- NOTE | 2025-04-12 15:17 | CM.DCFOLLOWU ---
Person spoke with: Latanya How are you feeling? Much better How is your pain? No pain Did you understand your discharge instructions? Yes Do you have any questions about your discharge instructions? No Were you given any prescriptions at discharge? No Were you able to get your prescriptions filled? N/A Do you understand how to take your medications as ordered? yes Do you have any questions about your follow up appointment and do you plan to keep your follow up appointment? Scheduled for tomorrow and yes I will go to appt. Is there anything else that you would like to discuss? No Questions/Comments/Concerns/Other:
== END 2025-04-11 11:53 | disposition home or self-care (01) ==
LOC: ER 20:10 → MS 21:34
PROVIDERS: Physician Assistant; Admitting Provider Family Medicine; Emergency Provider Internal Medicine; PCP Nurse Practitioner Family; Visit Provider Family Medicine
DX: R55 Syncope and collapse (principal); R10.11 Right upper quadrant pain; A08.4 Viral intestinal infection, unspecified; R19.7 Diarrhea, unspecified; N83.201 Unspecified ovarian cyst, right side; Z95.0 Presence of cardiac pacemaker; Z90.49 Acquired absence of other specified parts of digestive tract; Z98.51 Tubal ligation status; F17.200 Nicotine dependence, unspecified, uncomplicated; I10 Essential (primary) hypertension; Z79.01 Long term (current) use of anticoagulants; E11.9 Type 2 diabetes mellitus without complications; F31.9 Bipolar disorder, unspecified; K21.9 Gastro-esophageal reflux disease without esophagitis; E78.00 Pure hypercholesterolemia, unspecified; I48.20 Chronic atrial fibrillation, unspecified; G25.81 Restless legs syndrome; D50.9 Iron deficiency anemia, unspecified
CPT/HCPCS: 36415; 71045; 74177; 76856; 80053; 81001; 83605; 83690; 84484; 85025; 93005; 96360; 96361; 96374; 96375; 97165; 99285; G0378; J0780; J2270; J2405; Q9967

== ENCOUNTER 2025-04-22 15:57 | Emergency (ER) | payer MEDICARE, MEDICAID, SELFPAY ==
--- OUTSIDE RECORDS SUMMARY | 2023-05-28 09:36 | XMS_ITS | Continuity of Care Document ---
Author Organization [facility] Address [address] [place] [address] Phone Care Team Providers Care Stamp Clerk Name Role Phone Paolo Olivo Unavailable Unavailable [...] Limited Oral Eval Intraoral-periapical 1st Film 4 [id number] Additional Jan [facility] FP MEDICAID Condoms FLU VACCINE, 3 YRS & >, IM NEW FP MEDICAID URINALYSIS, NONAUTO W/SCOPE SPECIMEN HANDLING FLU VACCINE, 3 YRS & >, IM Advance Directives Directive Yes / No Effective Date File Name No Information Encounters Encounter Description Practice Location Reason(s) For Visit Diagnoses Date Provider Providers Copied on Encounter [facility], [address] [place] [address], [id number] , [place] tel:[phone] [facility] No Information 3 Visci DO Paolo. [address] [place] [address], [id number], [place]. tel:[phone] OFFICE/OUTPA TIENT VISIT, EST [facility], [address] [place] [address], [id number] , tel:[phone] [facility] med refills (chief complaint) Body mass index [BMI] 36.0-36.9, adultCOPD w/ acute exacerbationLow back pain, unspecified 1 [facility] DO Max. [address], [place], [id number], [place]. tel:[phone] [facility], [address], [place], [id number] , [place] tel:[phone] [facility] lab draw (chief complaint) Chronic obstructive pulmonary disease, unspecified 1 [facility] DO Max. [address], [place], [id number], [place]. tel:[phone] OFFICE/OUTPA TIENT VISIT, [facility], [address] [place] [address], [id number] , [place] tel: [phone] [facility] Med Refills (chief complaint)fa tigue (chief complaint) Body mass index [BMI] 36.0-36.9, adultAnxiety disorder, unspecifiedChron ic obstructive pulmonary disease, unspecifiedCOPD w/ acute exacerbationIron deficiency anemia due to chronic blood lossType 2 diabetes mellitus without complications 1 [facility] DO Max. [address] [place] [address], [id number], [place]. tel:[phone] OFFICE/OUTPA TIENT VISIT, [facility], [address] [place] [address], [id number] , [place] tel:[phone] [facility] med refill (chief complaint) Body mass index [BMI] 36.0-36.9, adultCarpal tunnel syndrome, leftCervicalgiaM yash problem Sep- 1 [facility] DO Max. [address] [place] [address], [id number], [place]. tel:[phone] OFFICE/OUTPA TIENT VISIT, [facility], [address] [place] [address], [id number] , [place] tel:[phone] [facility] A1C & Med Refills (chief complaint)di abetes (chief complaint) Body mass index [BMI] 36.0-36.9, adultType 2 diabetes mellitus with hyperglycemiaAnx iety disorder, unspecifiedCervi calgia 1 [facility] Max. [address], [place], [id number], [place]. tel:[phone] OFFICE/OUTPA TIENT VISIT, [facility], [address], [place], [id number] , [place] tel: [phone] [facility] Med Refills (chief complaint)Mu sculoskeleta l pain (chief complaint) Anxiety disorder, unspecifiedCervi calgiaUnspecifie d sprain of left wrist, initial encounterBody mass index [BMI] 36.0-36.9, adult 1 [facility]. [address] [place] [address], [id number], [place]. tel:[phone] OFFICE/OUTPA TIENT VISIT, [facility], [address] [place] [address], [id number] , [place] tel: [phone] [facility] med refill (chief complaint)fa tigue (chief complaint) Body mass index [BMI] 36.0-36.9, adultType 2 diabetes mellitus with other circulatory complicationsAnx iety disorder, unspecified 1 [facility]. [address] [place] [address], [id number], [place]. tel:[phone] OFFICE/OUTPA TIENT VISIT, [facility], [address], [place], [id number] , [place] tel: [phone] [facility] med refill (chief complaint)Me curt loss (chief complaint) Type 2 diabetes mellitus with other circulatory complicationsBod y mass index [BMI] 35.0-35.9, adultAnxiety disorder, unspecifiedUrina ry frequencyMemory problem 1 [facility] Max. [address] [place] [address], [id number], [place]. tel:[phone] OFFICE/OUTPA TIENT VISIT, [facility], [address] [place] [address], [id number] , [place] tel: [phone] [facility] med Refills (chief complaint)fa tigue (chief complaint) Body mass index [BMI] 35.0-35.9, adultAnemia, unspecified typeEssential (primary) hypertensionIron deficiency anemia due to chronic blood loss 0 1 [facility] DO Max. [address] [place] [address], [id number], [place]. tel:[phone] OFFICE/OUTPA TIENT VISIT, [facility], [address] [place] [address], [id number] , [place] tel: [phone] [facility] med refill (chief complaint)Co ugh (chief complaint) Chronic obstructive pulmonary disease, unspecifiedAnxie ty disorder, unspecifiedOther cervical disc degeneration, unspecified cervical region 0 1 [facility] DO Max. [address] [place] [address], [id number], [place]. tel:[phone] OFFICE/OUTPA TIENT VISIT, [facility], [address] [place] [address], [id number] , [place] tel: [phone] [facility] A1C (chief complaint)di abetes (chief complaint) Type 2 diabetes mellitus with other circulatory complicationsAnx iety disorder, unspecifiedLumba r back pain 0 1 [facility] DO Max. [address] [place] [address], [id number], [place]. tel:[phone] OFFICE/OUTPA TIENT VISIT, [facility], [address] [place] [address], [id number] , [place] tel: [phone] [facility] Med Refills (chief complaint)GE RD (chief complaint) Body mass index [BMI] 34.0-34.9, adultChronic pulmonary embolismGastroin testinal hemorrhage associated with gastric ulcerType 2 diabetes mellitus with hyperglycemiaOth er cervical disc degeneration, unspecified cervical region 1 [facility] DO Max. [address] [place] [address], [id number], [place]. tel:[phone] OFFICE/OUTPA TIENT VISIT, [facility], [address], [place], [id number] , [place] tel: [phone] [facility] med refill (chief complaint) Carpal tunnel syndrome of right wristAnxiety disorder, unspecifiedCervi calgia 3 0-202 0 [facility] DO Max. [address], [place], [id number], [place]. tel:[phone] OFFICE/OUTPA TIENT VISIT, [facility], [address], [place], [id number] , [place] tel: [phone] [facility] Med Refills (chief complaint)ba ck pain (chief complaint) Body mass index [BMI] 32.0-32.9, adultOther cervical disc degeneration, unspecified cervical regionAnxiety disorder, unspecifiedCOPD w/ acute exacerbation 2- 0 [facility] DO Max. [address] [place] [address], [id number], [place]. tel:[phone] OFFICE/OUTPA TIENT VISIT, [facility], [address] [place] [address], [id number] , [place] tel: [phone] [facility] A1C & Med Refills (chief complaint)di abetes (chief complaint) Body mass index [BMI] 32.0-32.9, adultType 2 diabetes mellitus without complicationsAnx iety disorder, unspecifiedOther cervical disc degeneration, unspecified cervical region 4 0 [facility] DO Max. [address] [place] [address], [id number], [place]. tel:[phone] OFFICE/OUTPA TIENT VISIT, [facility], [address] [place] [address], [id number] , [place] tel: [phone] [facility] Med Refills (chief complaint) Body mass index [BMI] 32.0-32.9, adultAnxiety disorder, unspecifiedFolli culitisCervicalg ia Aug- 7-202 0 [facility] DO Max. [address] [place] [address], [id number], [place]. tel:[phone] OFFICE/OUTPA TIENT VISIT, [facility], [address] [place] [address], [id number] , [place] tel: [phone] [facility] f/u hospital (chief complaint)fa tigue (chief complaint) Gastrointestinal hemorrhage associated with gastric ulcerIron deficiency anemia due to chronic blood lossAnxiety disorder, unspecified Jul- 0 [facility] DO Max. [address] [place] [address], [id number], [place]. tel:[phone] OFFICE/OUTPA TIENT VISIT, [facility], [address] [place] [address], [id number] , [place] tel: [phone] [facility] A1C & MED REFILLS (chief complaint)Di zziness (chief complaint)di abetes (chief complaint) Body mass index (BMI) 32.0-32.9, adultType 2 diabetes mellitus without complicationsDiz ziness of unknown cause 0 [facility] Max. [address] [place] [address], [id number], [place]. tel:[phone] OFFICE/OUTPA TIENT VISIT, [facility], [address] [place] [address], [id number] , [place] tel: [phone] [facility] Med Refills (chief complaint)GE RD (chief complaint) Anxiety disorder, unspecifiedDizzi ness of unknown causeGERD w/o esophagitis 0 [facility] DO Max. [address] [place] [address], [id number], [place]. tel:[phone] OFFICE/OUTPA TIENT VISIT, [facility], [address] [place] [address], [id number] , [place] tel: [phone] [facility] med refills (chief complaint)ba ck pain (chief complaint) Body mass index (BMI) 32.0-32.9, adultLumbar back painType 2 diabetes mellitus without complicationsDiz ziness of unknown causeAnxiety disorder, unspecified 0 [facility] DO Max. [address], [place], [id number], [place]. tel:[phone] OFFICE/OUTPA TIENT VISIT, [facility], [address], [place], [id number] , [place] tel: [phone] [facility] A1C & Med refills (chief complaint)An xiety (chief complaint) Body mass index (BMI) 32.0-32.9, adultType 2 diabetes mellitus without complicationsAnx iety disorder, unspecifiedOther cervical disc degeneration, unspecified cervical regionFolliculit isEssential (primary) hypertension 0 [facility] DO Max. [address], [place], [id number], [place]. [phone] OFFICE/OUTPA TIENT VISIT, [facility], [address] [place] [address], [id number] , [place] tel: [phone] [facility] Anxiety (chief complaint) Anxiety disorder, unspecified 0 [facility] DO Max. [address], [place], [id number], [place]. tel:[phone] OFFICE/OUTPA TIENT VISIT, [facility], [address], [place], [id number] , [place] tel: [phone] [facility] f/u med refills (chief complaint)UD S (chief complaint)Sh ortness of breath (chief complaint) assisted (current) use of opiate analgesicBody mass index (BMI) 32.0-32.9, adultChronic obstructive pulmonary disease, unspecifiedDizzi ness of unknown cause 0 [facility] DO Max. [address], [place], [id number], [place]. tel:[phone] OFFICE/OUTPA TIENT VISIT, [facility], [address], [place], [id number] , [place] tel: [phone] [facility] finger infection (chief complaint)Ra sh (chief complaint) Body mass index (BMI) 32.0-32.9, adultHerpetic whitlowEssential (primary) hypertensionAnxi ety disorder, unspecifiedDizzi ness of unknown cause 0 [facility] DO Max. [address], [place], [id number], [place]. tel:[phone] OFFICE/OUTPA TIENT VISIT, [facility], [address], [place], [id number] , [place] tel: [phone] [facility] Med Refills & A1C (chief complaint)Ra sh (chief complaint) Type 2 diabetes mellitus without complicationsAnx iety disorder, unspecifiedChron ic obstructive pulmonary disease, unspecified 0 [facility] DO Max. [address] [place] [address], [id number], [place]. tel:[phone] [facility], [address] [place] [address], [id number] , [place] tel: [phone] [facility] RANDOM UDS/PILL COUNT (chief complaint) No Information 9 [facility] DO Max. [address] [place] [address], [id number], [place]. tel:[phone] OFFICE/OUTPA TIENT VISIT, [facility], [address] [place] [address], [id number] , [place] tel: [phone] [facility] Med refills (chief complaint)DR WHITLEY DANG (chief complaint) Body mass index (BMI) 32.0-32.9, adultAnxiety disorder, unspecifiedKidne y painDizziness of unknown cause 9 [facility] DO Max. [address] [place] [address], [id number], [place]. tel:[phone] OFFICE/OUTPA TIENT VISIT, [facility], [address] [place] [address], [id number] , [place] tel:[phone] [facility] 4 WEEK F/U (chief complaint)Di zziness (chief complaint) Body mass index (BMI) 31.0-31.9, adultDizziness of unknown causeLumbar back painType 2 diabetes mellitus with hyperglycemia 9 [facility]. [address] [place] [address], [id number], [place]. tel:[phone] OFFICE/OUTPA TIENT VISIT, [facility], [address] [place] [address], [id number] , [place] tel: [phone] [facility] Med refills & A1C (chief complaint)Di zziness (chief complaint) Body mass index (BMI) 31.0-31.9, adultDizziness of unknown causeAnxiety disorder, unspecifiedType 2 diabetes mellitus with hyperglycemia [address], [id number], [place]. tel:[phone] OFFICE/OUTPA TIENT VISIT, [facility], [address] [place] [address], [id number] , [place] tel: [phone] [facility] 6 WK F/U (chief complaint)DR IGNACIO SCREEN (chief complaint) Pain in leg, unspecifiedBody mass index (BMI) 31.0-31.9, adultAnxiety disorder, unspecifiedChron ic pulmonary embolism [address], [id number], [place]. tel:[phone] OFFICE/OUTPA TIENT VISIT, [facility], [address] [place] [address], [id number] , [place] tel: [phone] [facility] follow up (chief complaint)hy pertension (chief complaint)dr ignacio screen (chief complaint) Body mass index (BMI) 31.0-31.9, adultEncntr for general adult medical exam w/o abnormal findingsEssentia l (primary) hypertensionType 2 diabetes mellitus without complicationsAnx iety disorder, unspecified 9 [facility]. [address] [place] [address], [id number], [place]. tel:[phone] OFFICE/OUTPA TIENT VISIT, [facility], [address], [place], [id number] , [place] tel: [phone] [facility] F/U HOSPITAL ADMITION (chief complaint)DR WHITLEY DANG (chief complaint) Body mass index (BMI) 31.0-31.9, adultAnxiety disorder, unspecifiedGERD w/o esophagitisHerpe tic shashi 9 [facility]. [address] [place] [address], [id number], [place]. tel:[phone] OFFICE/OUTPA TIENT VISIT, [facility], [address], [place], [id number] , [place] tel: [phone] [facility] med refill (chief complaint) Body mass index (BMI) 31.0-31.9, adultAnxiety disorder, unspecifiedType 2 diabetes mellitus without complications 9 [facility]. [address] [place] [address], [id number], [place]. tel:[phone] [facility], [address] [place] [address], [id number] , [place] tel: [phone] [facility] med refills (chief complaint) Body mass index (BMI) 31.0-31.9, adultCellulitis and abscess of finger, unspecifiedCutan eous abscess of unspecified handBipolar disorder 9 [facility]. [address], [place], [id number], [place]. tel:[phone] [facility], [address] [place] [address], [id number] , [place] tel: [phone] [facility] Abnormal Mammogram 9 [facility] Beatris. [address] [place] [address], [id number], [place]. tel:[phone] [facility], [address] [place] [address], [id number] , [place] tel: [phone] [facility] Medication refills (chief complaint)A1 C (chief complaint) Body mass index (BMI) 31.0-31.9, adultType 2 diabetes mellitus without complicationsLum attendant honor bar pain Jan- 9 [facility]. [address], [place], [id number], [place]. tel:[phone] [facility], [address] [place] [address], [id number] , [place] tel: [phone] [facility] Abnormal Mammogram Jan- 9 [facility] Beatris. [address] [place] [address], [id number], [place]. tel:[phone] OFFICE/OUTPA TIENT VISIT, EST [facility], [address] [place] [address], [id number] , [place] tel: [phone] [facility] sickness (chief complaint) Body mass index (BMI) 31.0-31.9, adultAcute non-recurrent maxillary sinusitisCOPD w/ acute exacerbationAnxi ety disorder, unspecifiedOther cervical disc degeneration, unspecified cervical region Dec- 9 [facility]. [address], [place], [id number], [place]. tel:[phone] [facility], [address] [place] [address], [id number] , [place] tel: [phone] [facility] Abnormal MammogramUnspeci fied urinary incontinence 9 [facility] Beatris. [address] [place] [address], [id number], [place]. 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 [address], [place], [id number], [place]. tel:[phone] [facility], [address], [place], [id number] , [place] tel: [phone] [facility] f/u abdominal pain (chief complaint) Body mass index (BMI) 32.0-32.9, adultHx pulmonary embolismHernia of abdominal wallAnxiety disorder, unspecified 9 [facility] DO Max. [address], [place], [id number], [place]. tel:[phone] [facility], [address] [place] [address], [id number] , [place] tel: [phone] [facility] abdomen issues (chief complaint) Right lower quadrant abdominal painEncounter for screening for Ca of colon 9 Kamaljit Wilcox. [address] [place] [address], [id number], [place]. tel:[phone] OFFICE/OUTPA TIENT VISIT, EST [facility], [address], [place], [id number] , [place] tel: [phone] [facility] rib pain when breathing (chief complaint) Body mass index (BMI) 31.0-31.9, adultRib pain on right sideLumbar back painRight hip pain 9 Kamaljit Wilcox. [address] [place] [address], [id number], [place]. tel:[phone] [facility], [address] [place] [address], [id number] , [place] tel:[phone] [facility] med refill (chief complaint) Right hip painLumbar back painAnxiety disorder, unspecified 9 Kmaaljit Wilcox. [address] [place] [address], [id number], [place]. tel:[phone] OFFICE/OUTPA TIENT VISIT, [facility], [address] [place] [address], [id number] , [place] tel: [phone] [facility] bladder infection (chief complaint) Oliguria 8 Shahzad Cobb. [address] [place] [address], [id number], [place]. tel:[phone] OFFICE/OUTPA TIENT VISIT, [facility], [address] [place] [address], [id number] , [place] tel: [phone] [facility] Medication refill (chief complaint) Anxiety disorder, unspecifiedBipol ar disorderVertigo 8 Shahzad Cobb. [address] [place] [address], [id number], [place]. tel:[phone] [facility], [address] [place] [address], [id number] , [place] tel: [phone] [facility] medication refill (chief complaint)br onchitis (chief complaint)De nnison: (chief complaint) Chronic obstructive pulmonary disease, unspecifiedCough Type 2 diabetes mellitus without complicationsEss ential (primary) hypertension 8 Margarito Horne. [address] [place] [address], [id number], [place]. tel:[phone] [facility], [address] [place] [address], [id number] , [place] tel: [phone] [facility] sick (chief complaint)me d refill (chief complaint)dE NNISON: (chief complaint) CoughChronic obstructive pulmonary disease, unspecifiedType 2 diabetes mellitus without complicationsEss ential (primary) hypertension 8 Margarito Horne. [address] [place] [address], [id number], [place]. tel:[phone] [facility], [address] [place] [address], [id number] , [place] tel: [phone] [facility] med refill (chief complaint)De nnison: (chief complaint) Focal (segmental) acute (reversible) ischemia of small intestineAnxiety disorder, unspecifiedBipol ar disorderChronic obstructive pulmonary disease, unspecifiedType 2 diabetes mellitus without complicationsNic otine dependence, unspecified, uncomplicatedEss ential (primary) hypertension 8 Margarito Horne. [address] [place] [address], [id number], . tel:[phone] [facility], [address] [place] [address], [id number] , [place] tel: [phone] [facility] med refills (chief complaint)Le ft thight (chief complaint) Meralgia paresthetica, left lower limbAnxiety disorder, unspecifiedBipol ar disorder 7 Shahzad Cobb. [address] [place] [address], [id number], . tel:[phone] OFFICE/OUTPA TIENT VISIT, [facility], [address] [place] [address], [id number] , [place] tel: [phone] [facility] R thigh pain (chief complaint)di scuss medication (chief complaint) Anxiety disorder, unspecifiedBipol ar disorderMeralgia paresthetica, left lower limb 7 Shahzad Cobb. [address] [place] [address], [id number], [place]. tel:[phone] [facility], [address] [place] [address], [id number] , [place] tel: [phone] [facility] HgbA1C (chief complaint)me dication refill (chief complaint) Anxiety disorder, unspecifiedBipol ar disorderCervical giaOther cervical disc degeneration, unspecified cervical regionSpinal stenosis, cervical regionPain in left shoulderType 2 diabetes mellitus with hyperglycemiaGER D w/o esophagitis 7 Shahzad Cobb. [address] [place] [address], [id number], [place]. tel:[phone] OFFICE/OUTPA TIENT VISIT, [facility], [address], [place], [id number] , [place] tel: [phone] [facility] follow up (chief complaint) Chronic pulmonary embolismCervical giaOther cervical disc degeneration, unspecified cervical regionSpinal stenosis, cervical region 7 Shahzad Cobb. [address] [place] [address], [id number], [place]. tel:[phone] OFFICE/OUTPA TIENT VISIT, [facility], [address], [place], [id number] , [place] tel: [phone] [facility] L arm/shoulder pain (chief complaint) CervicalgiaOther cervical disc degeneration, unspecified cervical regionSpinal stenosis, cervical region 6 Shahzad Cobb. [address] [place] [address], [id number], [place]. tel:[phone] OFFICE/OUTPA TIENT VISIT, [facility], [address], [place], [id number] , [place] tel: [phone] [facility] severe leg pain (chief complaint) Restless leg syndromePain in leg, unspecifiedType 2 diabetes mellitus with hyperglycemiaSpi nal stenosis, cervical region 6 Shahzad Cobb. [address] [place] [address], [id number], [place]. tel:[phone] OFFICE/OUTPA TIENT VISIT, [facility], [address], [place], [id number] , [place] tel: [phone] [facility] knee pain (chief complaint) Pain in kneeRestless leg syndrome 6 Shahzad Cobb. [address] [place] [address], [id number], [place]. tel:[phone] [facility], [address] [place] [address], [id number] , [place] tel: [phone] [facility] spasms on right side (chief complaint) Muscle spasm of backCervicalgiaO ther cervical disc degeneration, unspecified cervical regionSpinal stenosis, cervical region 6 Shahzad Cobb. [address] [place] [address], [id number], [place]. tel:[phone] OFFICE/OUTPA TIENT VISIT, [facility], [address], [place], [id number] , [place] tel: [phone] [facility] med refill (chief complaint) Type 2 diabetes mellitus with hyperglycemiaCer vicalgiaOther cervical disc degeneration, unspecified cervical regionSpinal stenosis, cervical region 6 Shahzad Cobb. [address] [place] [address], [id number], [place]. tel:[phone] [facility], [address] [place] [address], [id number] , [place] tel: [phone] [facility] Vertigo 6 Shahzad Cobb. [address] [place] [address], [id number], [place]. tel:[phone] OFFICE/OUTPA TIENT VISIT, [facility], [address] [place] [address], [id number] , [place] tel: [phone] [facility] medication refill (chief complaint)kn ee pain (chief complaint) Bipolar disorder 6 Shahzad Cobb. [address] [place] [address], [id number], [place]. tel:[phone] OFFICE/OUTPA TIENT VISIT, [facility], [address] [place] [address], [id number] , [place] tel: [phone] [facility] medication refill (chief complaint)re stless leg syndrome (chief complaint) Restless leg syndromeCervical giaOther cervical disc degeneration, unspecified cervical regionSpinal stenosis, cervical region 6 Shahzad Cobb. [address] [place] [address], [id number], [place]. tel: [phone] OFFICE/OUTPA TIENT VISIT, [facility], [address], [place], [id number] , [place] tel: [phone] [facility] medication refills (chief complaint) Bipolar disorderAnxiety disorder, unspecified 0 6 Shahzad Cobb. [address], [place], [id number], [place]. [phone] OFFICE/OUTPA TIENT VISIT, [facility], [address], [place], [id number] , [place] tel: [phone] [facility] medication refill (chief complaint) CervicalgiaOther cervical disc degeneration, unspecified cervical regionSpinal stenosis, cervical regionVertigo 6 Shahzad Cobb. [address] [place] [address], [id number], [place]. tel:[phone] OFFICE/OUTPA TIENT VISIT, [facility], [address], [place], [id number] , [place] tel: [phone] [facility] cough (chief complaint)me d refill (chief complaint) Type 2 diabetes mellitus with hyperglycemiaCOP D w/ acute exacerbationCerv icalgiaOther cervical disc degeneration, unspecified cervical regionSpinal stenosis, cervical region 6 Shahzad Cobb. [address] [place] [address], [id number], [place]. tel:[phone] OFFICE/OUTPA TIENT VISIT, [facility], [address], [place], [id number] , [place] tel: [phone] [facility] pain (chief complaint) CervicalgiaPain in left shoulder 5 Shahzad Cobb. [address] [place] [address], [id number], [place]. tel:[phone] OFFICE/OUTPA TIENT VISIT, [facility], [address] [place] [address], [id number] , [place] tel:[phone] [facility] cold (chief complaint) COPD w/ acute exacerbationCerv icalgiaOther cervical disc degeneration, unspecified cervical region Aug- 5 Shahzad Cobb. [address] [place] [address], [id number], [place]. tel:[phone] OFFICE/OUTPA TIENT VISIT, [facility], [address] [place] [address], [id number] , [place] tel: [phone] [facility] med refill (chief complaint) CervicalgiaDegen eration of cervical intervertebral discSpinal stenosis in cervical regionColostomy status 5 Shahzad Cobb. [address] [place] [address], [id number], [place]. tel:[phone] OFFICE/OUTPA TIENT VISIT, [facility], [address] [place] [address], [id number] , [place] tel: [phone] [facility] Medcation refills (chief complaint)St aple removal (chief complaint) AnxietyColostomy status 5 Shahzad Cobb. [address] [place] [address], [id number], [place]. [phone] OFFICE/OUTPA TIENT VISIT, [facility], [address] [place] [address], [id number] , [place] tel: [phone] [facility] med refill (chief complaint) Acute mesenteric ischemiaColostom y statusTrigger finger Apr- 5 Shahzad Cobb. [address] [place] [address], [id number], [place]. tel:[phone] OFFICE/OUTPA TIENT VISIT, [facility], [address] [place] [address], [id number] , [place] tel:[phone] [facility] Med refill (chief complaint) Abdomen painAttention to colostomyColosto my status 5 Shahzad Cobb. [address], [place], [id number], [place]. tel:[phone] OFFICE/OUTPA TIENT VISIT, [facility], [address], [place], [id number] , [place] tel: [phone] [facility] medication refill (chief complaint) Spinal stenosis in cervical regionColostomy status 5 Shahzad Cobb. [address], [place], [id number], [place]. tel:[phone] OFFICE/OUTPA TIENT VISIT, [facility], [address], [place], [id number] , [place] tel: [phone] [facility] med refill (chief complaint) Colostomy statusAbdomen painAcute bronchitis 5 Nanda Wilcox. [address] [place] [address], [id number], [place]. tel:[phone] OFFICE/OUTPA TIENT VISIT, [facility], [address], [place], [id number] , [place] tel: [phone] [facility] dyspnea (chief complaint) COPDColostomy statusTobacco abuse 5 Shahzad Cobb. [address], [place], [id number], [place]. tel:[phone] OFFICE/OUTPA TIENT VISIT, [facility], [address], [place], [id number] , [place] tel: [phone] [facility] med f/u (chief complaint) Spinal stenosis in cervical regionCervicalgi a 5 Shahzad Cobb. [address], [place], [id number], [place]. tel:[phone] [facility], [address] [place] [address], [id number] , [place] tel: [phone] [facility] referral (chief complaint) Colostomy statusAttention to colostomy 4 [place] FRAUD REPRESENTATIVE Jeri. [address], [place], [id number], [place]. [phone] OFFICE/OUTPA TIENT VISIT, [facility], [address], [place], [id number] , [place] tel: [phone] [facility] ER (chief complaint) OtherColostomy statusAnxietyDia betes Mellitus Type 2, UncomplicatedOth er and unspecified coagulation defects 4 [place] FRA[employer] REPRESENTATIVE Jeri. [address], [place], [id number], [place]. tel:[phone] OFFICE/OUTPA TIENT VISIT, [facility], [address], [place], [id number] , [place] tel: [phone] [facility] BP check (chief complaint) CervicalgiaSpina l stenosis in cervical regionDisplaceme nt of cervical intervertebral disc without myelopathy 4 [place] FRAUD REPRESENTATIVE Jrei. [address], [place], [id number], [place]. [phone] OFFICE/OUTPA TIENT VISIT, [facility], [address], [place], [id number] , [place] tel: [phone] [facility] review labs and MRI (chief complaint) Degeneration of cervical intervertebral discDiabetes Mellitus Type 2, UncomplicatedUns pecified essential hypertensionUrin maryellen incontinence, unspecifiedMixed HyperlipidemiaOv erweight 4 Hemmer Libby. [address], [place], [id number], [place]. [facility], [address], [place], [id number] , [place] tel: [phone] [facility] No Information 4 Hemmer Libby. [address], [place], [id number], [place]. [facility], [address], [place], [id number] , [place] tel: [phone] [facility] Potential Drug Interaction (chief complaint) Therapeutic Drug Monitoring 4 Hemkirill Souza. [address], [place], [id number], [place]. OFFICE/OUTPA TIENT VISIT, [facility], [address], [place], [id number] , [place] tel: [phone] [facility] neck pain (chief complaint)ea r discomfort (chief complaint) Degeneration of cervical intervertebral discGERDDiabetes Mellitus Type 2, UncomplicatedUri nary incontinence, unspecifiedUnspe cified essential hypertensionMixe d HyperlipidemiaBe nign neoplasm of thyroid glands 4 Hemkirill Souza. [address], [place], [id number], [place]. [facility], [address] [place] [address], [id number] , [place] tel: [phone] [facility] Dental examination 4 Merrick DMD January. [address], [place], [id number], [place]. tel:[phone] [facility], [address], [place], [id number] , [place] tel: [phone] Dental Clinic Dental examination 4 [place] DMD January. [address], [place], [id number], [place]. tel:[phone] [facility], [address], [place], [id number] , [place] tel: [phone] Dental Clinic Dental examination 0 4 [place] DMD January. [address], [place], [id number], [place]. tel:[phone] [facility], [address], [place], [id number] , [place] tel:[phone] [facility] No Information Jul-2 0 Lamp Mayte. [address], [place], [id number], [place]. tel:[phone] [facility], [address] [place] [address], [id number] , tel: [phone] [facility] No Information Sep-2 8-201 0 Visci DO Boone. [address] [place] [address], [id number], . tel:[phone] [facility], [address] [place] [address], [id number] , tel: [phone] [facility] No Information Dec-0 1-200 8 No Information [facility], [address] [place] [address], [id number] , tel: [phone] Flu No Information Dec-0 1-200 8 Visci DO Boone. [address] [place] [address], [id number], . tel:[phone] Family History Family Member Type Diagnosis Age [...] ID Fredy ferrer(s) Ale Medicare Advantage SERGO [id number] Medicaid [facility] [id number] Social History Type Description Quantity Date Captured Comments Alcohol Use Details Unknown Caffeine Use Details Unknown Tobacco Use Status Smoking Status No Information Sex Female Sexual Orientation Straight or heterosexual Gender Identity Female Chief Complaint And Reason For Visit No Information Reason For Referral Reason For Referral No Information Plan Of Treatment Date Type Action Status Goal DELIVERY ROUTE DRIVER exam. Due on due Goal Colonoscopy. [...] eye exam. Due on May due Goal H&P. Due on due Goal [...] Influenza Vaccine. Due on No due Goal Urine microalbumin. Due on N ov due Goal Dilated eye exam. Due on Sep due Goal H&P. Due on due Goal Diabetes screening. Due on due Goal ECG. Due on due Goal Tdap. Due on due Goal Pneumococcal vac cine. Due on due Goal DELIVERY ROUTE DRIVER exam. Due on due Goal Foot [...] Goal Breast exam. Due on due Goal DELIVERY ROUTE DRIVER exam. Due on due Goal Tdap. Due on due Goal Diabetes screening. Due on due Goal Mammogram. Due on due Goal Colonoscopy. Due on due Goal Influenza Vaccine. Due on due Goal Mammogram. Due on due Goal Tdap. Due on due Goal Hemoglobin A1C. Due on due Goal Breast exam. Due on due Goal Diabetes screening. Due on due Goal DELIVERY ROUTE DRIVER exam. Due on due Goal Influenza Vaccine. Due on Oc due Goal Depression scree nancy. Due on due Goal Dental exam. Due on due Goal ECG. Due on due Goal H&P. Due on due Goal Foot exam. Due on due Goal Dilated eye exam. Due on Aug due Goal Urine microalbumin. Due on O due Goal Zoster vaccine ( 1st). Due on due Goal Pneumococcal vac cine. [...] due Goal Mammogram. Due on due Goal DELIVERY ROUTE DRIVER exam. Due on due Goal Depression [...] Breast exam. Due on 021 due Goal Depression scree nancy. Due on due Goal Mammogram. Due on due Goal Colonoscopy. Due on 025 due Goal H&P. Due on due Goal Influenza Vaccine. Due on due Goal ECG. Due on due Goal Tdap. Due on due Goal Diabetes screening. Due on due Goal DELIVERY ROUTE DRIVER exam. Due on due Goal Hemoglobin A1C. Due on due Goal Urine microalbumin. Due on due Goal Dilated eye exam. Due on Jul due Goal Foot exam. Due on due Goal Pneumococcal vac cine. Due on due Goal Dental exam. Due on due Goal Dietary manageme nt [...] Goal Colonoscopy. Due on 025 due Goal DELIVERY ROUTE DRIVER exam. Due on due Goal Foot exam. Due on due Goal Pneumococcal vac cine. Due on due Goal Depression scree nancy. Due on due Goal Dental exam. Due on due Goal Dilated eye exam. Due on Jun due Goal Tobacco cessation counseling completed Goal Dietary manageme nt education, guidance, and counseling completed Goal Tdap. Due on due Goal Influenza [...] Goal Urine microalbumin. Due on due Goal DELIVERY ROUTE DRIVER exam. Due on due Goal Breast [...] Goal Dental exam. Due on due Goal DELIVERY ROUTE DRIVER exam. Due on due Goal Pneumococcal vac cine. Due on due Goal ECG. Due on due Goal Colonoscopy. Due on due Goal Influenza Vaccine. Due on due Goal Depression scree anncy. Due on due Goal Hemoglobin A1C. Due [...] screening. Due on due Goal Depression scree nacny. Due on due Goal Colonoscopy. Due on 025 due Goal ECG. Due on due Goal Hemoglobin A1C. Due on due Goal Dental exam. Due on due Goal DELIVERY ROUTE DRIVER exam. Due on due Goal Dilated [...] Goal Dental exam. Due on due Goal DELIVERY ROUTE DRIVER exam. Due on due Goal Urine [...] due Goal Mammogram. Due on due Goal DELIVERY ROUTE DRIVER exam. Due on due Goal Foot exam. Due on due Goal Zoster vaccine ( 1st). Due on due Goal Pneumococcal vac cine. [...] Goal Influenza Vaccine. Due on due Goal DELIVERY ROUTE DRIVER exam. Due on due Goal Zoster [...] Goal Mammogram. Due on 0 due Goal DELIVERY ROUTE DRIVER exam. Due on due Goal Influenza Vaccine. Due on due Goal Depression scree nancy. Due on due Goal Breast exam. Due on due Goal Tobacco cessation counseling completed Goal Mammogram. Due on 0 due Goal ECG. Due on due Goal Breast exam. Due on due Goal Colonoscopy. Due on 025 due Goal Depression scree nancy. Due on due Goal Zoster vaccine ( ). Due on due Goal Urine microalbumin. Due on due Goal Dilated eye exam. Due on Oct due Goal Pneumococcal vac cine. Due on due Goal DELIVERY ROUTE DRIVER exam. Due on due Goal Foot exam. Due on 0 due Goal Hemoglobin A1C. Due on due Goal Dental exam. Due on due Goal Tdap. Due on due Goal Diabetes screening. Due on due Goal Influenza Vaccine. Due on due Goal H&P. Due on due Goal Tobacco cessation counseling completed Goal Dietary manageme nt education, guidance, and counseling completed Goal DELIVERY ROUTE DRIVER exam. Due on due Goal Pneumococcal [...] Vaccine. Due on Oc t due Goal DELIVERY ROUTE DRIVER exam. Due on due Goal Depression scree nancy. Due on due Goal Zoster vaccine ( 1st). Due on due Goal Pneumococcal vac cine. Due on due Goal Colonoscopy. Due on due Goal Foot exam. Due on 0 due Goal Hemoglobin A1C. Due on due Goal Tobacco cessation counseling completed Goal Dietary manageme nt education, guidance, and counseling completed Goal Dilated eye exam. Due on Jul due Goal Foot exam. Due on 0 due Goal DELIVERY ROUTE DRIVER exam. Due on due Goal Tdap. [...] 025 due Goal Breast exam. Due on 020 due Goal Hemoglobin A1C. Due on due Goal Dilated eye exam. Due on Jun due Goal Depression scree nancy. Due on due Goal Diabetes screening. Due on due Goal Foot exam. Due on 0 due Goal Influenza Vaccine. Due on due Goal Mammogram. Due on 0 due Goal Dental exam. Due on due Goal DELIVERY ROUTE DRIVER exam. Due on due Goal Urine microalbumin. Due on due Goal Pneumococcal vac cine. Due on due Goal Dietary manageme nt education, guidance, and counseling completed Goal Tobacco cessation counseling completed Goal DELIVERY ROUTE DRIVER exam. Due on due Goal Breast [...] Pneumococcal vac cine. Due on due Goal DELIVERY ROUTE DRIVER exam. Due on due Goal Colonoscopy. [...] vaccine ( ). Due on due Goal DELIVERY ROUTE DRIVER exam. Due on due Goal Tdap. [...] Goal Dental exam. Due on due Goal DELIVERY ROUTE DRIVER exam. Due on due Goal Hemoglobin A1C. Due on due Goal Breast exam. Due on due Goal Foot exam. Due on 0 due Goal Urine microalbumin. Due on due Goal Colonoscopy. Due on 025 due Goal Pneumococcal vac cine. Due on due Goal H&P. Due on due Goal Tdap. Due on due Goal Mammogram. Due on 0 due Goal Dilated eye exam. Due on March due Goal Influenza Vaccine. Due on due [...] due Goal ECG. Due on due Goal DELIVERY ROUTE DRIVER exam. Due on due Goal Breast [...] Pneumococcal vac cine. Due on due Goal DELIVERY ROUTE DRIVER exam. Due on due Goal ECG. Due on due Goal H&P. Due on due Goal Diabetes screening. Due on due Goal Dietary manageme nt education, guidance, and counseling completed Goal Tobacco cessation counseling completed Goal Diabetes screening. Due on due Goal Breast exam. Due on due Goal DELIVERY ROUTE DRIVER exam. Due on due Goal Depression [...] due Goal H&P. Due on due Goal DELIVERY ROUTE DRIVER exam. Due on due Goal Dental exam. Due on due Goal Urine microalbumin. Due on N due Goal Foot exam. Due on 0 due Goal Dilated eye exam. Due on Sep due Goal Pneumococcal vac cine. Due on due Goal Depression scree nancy. Due on due Goal ECG. Due on due Goal DELIVERY ROUTE DRIVER exam. Due on due Goal Breast [...] due Goal Tdap. Due on due Goal DELIVERY ROUTE DRIVER exam. Due on due Goal Depression scree nancy. Due on due Goal Diabetes screening. Due on A due Goal Tobacco cessation counseling completed Goal Dietary manageme nt education, guidance, and counseling completed Goal H&P. Due on due Goal DELIVERY ROUTE DRIVER exam. Due on due Goal Diabetes screening. Due on A due Goal Tdap. Due on due Goal Dilated eye exam. Due on Aug due Goal Mammogram. Due on 9 due [...] Goal Mammogram. Due on 9 due Goal DELIVERY ROUTE DRIVER exam. Due on due Goal Tdap. Due on due Goal ECG. Due on due Goal Dental exam. Due on due Goal Dilated eye exam. Due on Jun due Goal Pneumococcal vac cine. Due on due Goal Urine microalbumin. Due on A due Goal Influenza Vaccine. Due on due Goal Tobacco cessation counseling completed Goal Dietary manageme nt education, guidance, and counseling completed Goal Depression scree nancy. Due on due Goal Pneumococcal vac cine. Due on due Goal DELIVERY ROUTE DRIVER exam. Due on due Goal Dilated [...] 025 due Goal Foot exam. Due on 9 due Goal Urine microalbumin. Due on due Goal Depression scree nancy. Due on due Goal DELIVERY ROUTE DRIVER exam. Due on due Goal Influenza [...] Foot exam. Due on 9 due Goal DELIVERY ROUTE DRIVER exam. Due on due Goal Depression [...] Goal Diabetes screening. Due on due Goal DELIVERY ROUTE DRIVER exam. Due on due Goal Colonoscopy. Due on due Goal Tdap. Due on due Goal H&P. Due on due Goal Dietary manageme nt education, guidance, and counseling completed Goal Tobacco cessation counseling completed Goal Pneumococcal [...] due Goal Colonoscopy. Due on due Goal DELIVERY ROUTE DRIVER exam. Due on due Goal Depression scree nancy. Due on due Goal ECG. Due on due Goal Foot exam. Due on 9 due Goal Breast exam. Due on due Goal Depression scree nancy. Due on due Goal Colonoscopy. Due on 025 due Goal DELIVERY ROUTE DRIVER exam. Due on due Goal Dental [...] Foot exam. Due on 9 due Goal DELIVERY ROUTE DRIVER exam. Due on due Goal Mammogram. [...] Diabetes screening. Due on A due Goal DELIVERY ROUTE DRIVER exam. Due on due Goal Breast [...] Goal Urine microalbumin. Due on due Goal DELIVERY ROUTE DRIVER exam. Due on due Goal Depression [...] Breast exam. Due on 019 due Goal Depression scree nancy. Due on due Goal Colonoscopy. Due on 025 due Goal H&P. Due on due Goal Dilated eye exam. Due on Dec due Goal Tdap. Due on due Goal DELIVERY ROUTE DRIVER exam. Due on due Goal ECG. Due on due Goal Mammogram. Due on 9 due Goal Tobacco cessation counseling completed Goal Dietary manageme nt education, guidance, and counseling completed Goal Breast exam. Due on due Goal DELIVERY ROUTE DRIVER exam. Due on due Goal Diabetes [...] Depression scree nancy. Due on due Goal DELIVERY ROUTE DRIVER exam. Due on due Goal Dental [...] Goal Influenza Vaccine. Due on due Goal DELIVERY ROUTE DRIVER exam. Due on due Goal Dental [...] Breast exam. Due on 019 due Goal DELIVERY ROUTE DRIVER exam. Due on due Goal BMP fasting. Due on 014 due Goal H&P. Due on due Goal Tdap. Due on due Goal Mammogram. Due on 8 due Goal Foot exam. Due on 8 due Goal Breast exam. Due on 018 due Goal Urine microalbumin. Due on due Goal Dilated eye exam. Due on March due Goal Dental exam. Due on due Goal Pneumococcal vac cine. Due on due Goal ECG. Due on due Goal DELIVERY ROUTE DRIVER exam. Due on due Goal Influenza [...] Goal Mammogram. Due on 8 due Goal DELIVERY ROUTE DRIVER exam. Due on due Goal Urinalysis. Due on 14 due Goal H&P. Due on due Goal Influenza Vaccine. Due on due Goal Breast exam. Due on 018 due Goal FOBT. Due on due Goal Urinalysis. Due on 14 due Goal DELIVERY ROUTE DRIVER exam. Due on due Goal ECG. [...] due Goal ECG. Due on due Goal DELIVERY ROUTE DRIVER exam. Due on due Goal Dental exam. Due on due Goal Mammogram. Due on due Goal Breast exam. Due on due Goal Foot exam. Due on 8 due Goal Dilated eye exam. Due on Dec due Goal Tdap. Due on due Goal Urine microalbumin. Due on due Goal Urinalysis. Due on 14 due Goal Pneumococcal vac cine. Due on due Goal BMP fasting. Due on due Goal Tobacco cessation counseling completed Goal Tdap. Due on due Goal Dilated eye exam. Due on Dec due Goal Mammogram. Due on due Goal Dental exam. Due on due Goal Colonoscopy. Due on due Goal Influenza Vaccine. Due on due Goal Foot exam. Due on due Goal Urine microalbumin. Due on due Goal ECG. Due on due Goal BMP fasting. Due on due Goal FOBT. Due on due Goal H&P. Due on due Goal DELIVERY ROUTE DRIVER exam. Due on due Goal Pneumococcal vac cine. Due on due Goal Breast exam. Due on due Goal Urinalysis. Due on 14 due Goal Dental exam. Due on due Goal DELIVERY ROUTE DRIVER exam. Due on due Goal Dilated [...] due Goal Mammogram. Due on due Goal DELIVERY ROUTE DRIVER exam. Due on due Goal Pneumococcal [...] completed Goal Colonoscopy. Due on due Goal FOBT. Due on due Goal Urinalysis. Due on 14 due Goal Mammogram. Due on due Goal Urine microalbumin. Due on A due Goal Dilated eye exam. Due on Jun due Goal DELIVERY ROUTE DRIVER exam. Due on due Goal BMP [...] due Goal Colonoscopy. Due on due Goal DELIVERY ROUTE DRIVER exam. Due on due Goal Urinalysis. Due on 14 due Goal BMP fasting. Due on 014 due Goal TD Vaccine. Due on 17 [...] Goal Breast exam. Due on due Goal DELIVERY ROUTE DRIVER exam. Due on due Goal H&P. [...] Goal Mammogram. Due on 6 due Goal DELIVERY ROUTE DRIVER exam. Due on due Goal Urinalysis. Due on 14 due Goal DELIVERY ROUTE DRIVER exam. Due on due Goal H&P. [...] Goal BMP fasting. Due on due Goal DELIVERY ROUTE DRIVER exam. Due on due Goal Mammogram. [...] due Goal Colonoscopy. Due on due Goal DELIVERY ROUTE DRIVER exam. Due on due Goal Influenza Vaccine. Due on due Goal Tdap. Due on due Goal Colonoscopy. Due on 016 due Goal Urinalysis. Due on 14 due Goal Lipid Panel. Due on 015 due Goal Influenza Vaccine. Due on due Goal BMP fasting. Due on 014 due Goal Mammogram. Due on 6 due Goal Breast exam. Due on 016 due Goal Pap/HPV testing. Due on due Goal H&P. Due on due Goal FOBT. Due on due Goal Sigmoidoscopy. Due on due Goal DELIVERY ROUTE DRIVER exam. Due on due Goal TD Vaccine. Due on 16 due Goal Lipid Panel. Due on 015 due Goal Breast exam. Due on 016 due Goal Urinalysis. Due on 14 due Goal FOBT. Due on due Goal Mammogram. Due on 6 due Goal Colonoscopy. Due on 016 due Goal TD Vaccine. Due on 16 due Goal Pap/HPV testing. Due on due Goal DELIVERY ROUTE DRIVER exam. Due on due Goal BMP fasting. Due on 014 due Goal Sigmoidoscopy. Due on due Goal Influenza Vaccine. Due on due Goal H&P. Due on due Goal Tdap. Due on due Goal Mammogram. Due on 6 due Goal DELIVERY ROUTE DRIVER exam. Due on due Goal H&P. [...] Goal Influenza Vaccine. Due on due Goal DELIVERY ROUTE DRIVER exam. Due on due Goal TD Vaccine. Due on 16 due Goal DELIVERY ROUTE DRIVER exam. Due on due Goal Urinalysis. [...] Goal BMP fasting. Due on due Goal DELIVERY ROUTE DRIVER exam. Due on due Goal Influenza [...] due Goal Colonoscopy. Due on due Goal Lipid Panel. Due on due Goal Colonoscopy. Due on due Goal Mammogram. Due on 5 due Goal Urinalysis. Due on 14 due Goal BMP fasting. Due on due Goal Tdap. Due on due Goal Pap/HPV testing. Due on due Goal DELIVERY ROUTE DRIVER exam. Due on due Goal H&P. Due on due Goal TD Vaccine. Due on due Goal Breast exam. [...] Goal BMP fasting. Due on due Goal DELIVERY ROUTE DRIVER exam. Due on due Goal Sigmoidoscopy. [...] due Goal Tdap. Due on due Goal DELIVERY ROUTE DRIVER exam. Due on due Goal H&P. [...] due Goal Colonoscopy. Due on due Goal DELIVERY ROUTE DRIVER exam. Due on due Goal Pap/HPV [...] TD Vaccine. Due on 15 due Goal DELIVERY ROUTE DRIVER exam. Due on due Goal Colonoscopy. [...] Goal Breast exam. Due on due Goal DELIVERY ROUTE DRIVER exam. Due on due Goal TD [...] due Goal Tdap. Due on due Goal DELIVERY ROUTE DRIVER exam. Due on due Goal Mammogram. [...] Breast exam. Due on 015 due Goal TD Vaccine. Due on 15 due Goal Pap/HPV testing. Due on due Goal Depression scree nancy. Due on due Goal Urinalysis. Due on 14 due Goal Mammogram. Due on 5 due Goal Sigmoidoscopy. Due on due Goal H&P. Due on due Goal DELIVERY ROUTE DRIVER exam. Due on due Goal Tdap. [...] due Goal Tdap. Due on due Goal DELIVERY ROUTE DRIVER exam. Due on due Goal Pap/HPV testing. Due on due Goal Mammogram. Due on 5 due Goal Sigmoidoscopy. Due on due Goal BMP fasting. Due on 014 due Goal Influenza Vaccine. Due on due Goal DELIVERY ROUTE DRIVER exam. Due on due Goal Urinalysis. [...] To: Sal Muse [address] [place], [place] [id number] Ordered: Referrals: Allopathic & Osteopathic Physicians : Orthopaedic Surgery. [facility]. Location: [facility]. Consult Appointment date/timeframe: 09/03/2017 ordered Referral Ordered: [...] Referral Ordered: referred to Clinical Nurse Specialist [facility] today (related to Attention to colostomy) ordered Referral Ordered: Urology. ordered Future Order: Lab Order GLYCOSYL ATED HEMOGLOBIN TEST ([id number]), Collected on: , Sent on: Sent Future Order: Lab Order Complian ce Drug Analysis, Ur ([id number]), Collected on: , Sent on: Sent Future Order: Lab Order Urine, N aloxone Urine Cofirm ([id number]), Collected on: , Sent on: Sent History [...] RN ,above was reviewed and agreed with [facility] lab draw Pt here for [...] Lyrica 08/11, Ativan 08/05, Flexeril 07/29 & [place] 07/26TGrodi [employer] fatigue This is an initi al visit. [...] completed, last filled Lorazepam 06/06, Lyrica 06/06, [place] 06/05TGrodi [facility] Med Refills Pt here today fo r medication refills. PT states she fell Thursday and her L hand is swollen. Denies any pain. OARRS completed, last filled [place], Ativan & Lyrica 05/08TGrodi [facility] Musculoskeletal pain Onset: sudd en. [...] Ativan, 02/13, Lyrica 02/13, & norco 02/06TGrodi [employer] fatigue This is an initi al visit. [...] Ativan 12/19, Lyrica 12/17, Flexeril 12/02 & [place] 11/20TGrodi LPNPt states she is just tired, pt son who she lives with has his son that is 3 months old and not sleeping thought the [facility] Med Refills Pt here today fo [...] work. OARRS completed, last filled Ativan 10/23, [place] 10/31 & Flexeril 10/31TGrodi [employer] GERD The severity of the problem is [...] refills. OARRS completed, last filled Ativan 09/25, [place] & Flexeril 09/05TGrodi [employer] diabetes The problem is s table. Risk [...] OARRS completed, last filled Ativan 08/26 & [place] 08/08TGrodi [facility] Med Refills Pt here today fo r medication refills. We discussed Pt getting tested genes for coronary artery disease and what pt should do about it otherwise pt is doing well. OARRS completed, last filled Ativan 07/22, Flexeril 07/15, [place] 07/11 & Lyrica 07/01TGrodi [employer] fatigue This is an initi al visit. [...] completed, last filled Lyrica & Ativan 05/27, [place] 05/18, & Ambien 05/14TGrodi [employer] diabetes The problem is s table. Risk [...] completed, last filled Ativan 04/28, Lyrica 04/28, [place] 04/16TGrodi [employer] GERD The severity of the problem is [...] back pain and dizziness, states that the [place] is no longer helping the pain. Pt [...] 03/10, Ativan, Ambien & Lyrica 03/02, & [place] 03/01TGrodi [employer] Anxiety This is a follow up visit. [...] swelling, redness and pain. Pt states the [place] helps with the pain but she is worried about infection. Pt denies any other problems or concerns.Pt requesting refills of [place] 5mg last filled 11/07 and Ativan 0.5mg [...] completed, last filled Lyrica 10/27, Flexeril 10/27, [place] & Ativan 09/27TGjoyce [facility] Rash The patient [...] provide oral swab. OARRS completed, last filled [place] 09/27, Ativan 09/27 & Lyrica 09/28. [facility] DRUG S[facility]EN Rapid urine drug screen performed, pt + for NOTHING ALL NEGATIVE. Asked patient when she last took her medication and she stated she last took Ativan yesterday & [place] 4 days ago. TGrodi [facility] Med refills Pt here today [...] last filled Flexeril 09/19 & 09/08, Lyrica, [place] & [facility]ivan [facility] Onset was sudden . The duration [...] if she needs a refill on her [place] and she said, yeah might as well . I asked patient to provide a urine today and she said she can not pee. OARRS completed, last filled Flexeril 08/26, Ativan 08/03, & [place] 08/03TGrodi [employer] Dizziness Onset was sudden . Severity is [...] Flexeril 07/15, Lyrica 06/29, Ativan 06/22 & [place] 06/22rodi [facility] DRUG SCREEN Pt could not uri ion for a UDS. Pt had blood drawn. First attempt successful in R antecubital. Pt tolerated well. [facility] 6 WK F/U Pt here today fo [...] filled Flexeril 05/27 & 06/09, Lyrica 05/25, [place] & Ativan 05/11TGrod LPNPt states that beside the no energy she feels ok drug screen Pt could no go t o the bathroom so did a blood draw for a drug screen. First attempt successful in R antecubital. Pt tolerated well no issues or concerns. [facility] follow up Pt here today fo r a follow up & medication refills. Pt states she had her INR drawn today and it was 1.9OARRS completed, last filled Flexeril 04/30, Lyrica 04/25, Ativan 04/13, & [place] 03/11TGrodi [facility] hypertension Comorbid conditi ons include [...] completed, last filled Lyrica 02/16, Ativan, & [place] /Grodi LPNASKED PATIENT IF SHE COULD PROVIDE A URINE AND SHE SAID NOT RIGHT NOW. SHE WILL NEED TO PROVIDE A URINE OR GET A BLOOD DRAW. ,above was reviewed and agreed with Medication refills Patient here for Medication refills. Patient is requesting refills on Wellbutrin, Ativan and [place]. A1C completed today. No other issues at this time. Also patient did agree to reschedule breast biopsy. Patent was advised to stop blood thinners for 5 days. Patient is scheduled 02/09/19 at 10am at the [facility]. OARRS completed. last [...] well. She states she does not need [place] cause she still has some. OARRS completed, last filled, Ativan 12/22 for 15 day supply, [place] & Lyrica 12/22TGrodi LPNPt states she get [...] this needs discussed. OARRS completed, last filled [place], Ativan, 11/05, Lyrica 11/11 & got Percocet [...] Pt here for medi cation refill on [place] and Ativan. Pt. c/o back pain 08/11. [...] syrup cough drops, tylenol. Sandra Guthrie RN. Margarito: Finished ten day s if Keflex. Coughing [...] called. Jose Margarito: Coughing for 1 w [place]. No hemoptysis or shortness of breath or [...] would like 90 days supply if possible. [facility] [place] states [...] the coumadin clinic and [facility] managed by [facility] Dr. Rodriguez. Patient needs a release for [...] is looking into another psych provider in [place]. RUCHI Figueroa knee pain Location: knee. Additional [...] april to see new psych doctor in [place]. Patient has no other issues at this [...] are due for refill. She went to [facility] on 10/15/15 and starts PT on 11/07/15. [...] Metoprolol, & Clopidogel. Oscar Arias dyspnea Pt. [facility] was i [facility] in for emergency colectomy. While inpt. was using nebulizers. Was not given Rx at time of d/c and has been using sister's neb at home with relief of dyspnea. Neb meds currently using are Albuterol and Ipratropium [place] 2 - 3 times/day. Hayden Casas R.N. med f/u Client here to f /u on meds. Also [facility] has a rash around her stoma. [facility] has a Colonoscopy sched. for 11-21-14. [...] if desires results. 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
--- OUTSIDE RECORDS SUMMARY | 2024-09-16 11:00 | XMS_ITS ---
Author Organization [facility] Address [address] [facility] [place] [address] Care Team Providers Care Oracle Scm Consultant Name Role Phone Darcie Lacey Primary Care Provider Janna Jackson Unavailable [phone] REASON FOR VISIT chronic f/u Encounters Encounter Location Date Provider Diagnosis [facility] [address] [facility] [place] [address] 09/16/2024 Darcie Lacey Plan Of Treatment No Information Progress Notes * KING MORENO ADOB:[birth year] (64 yo F)Acc No.[id number]:09/16/2024 Progress Notes Patient: KING KWONG Appointment Provider: Juanita LACEY MD :1960 A ge:63 Y S ex:Female Date:09/16/2024 Address:[address] [place], [place] [phone] Subjective: * Chief Complaints: * 1 . Chronic f/u. * Medical History: Objective: * Vitals: Assessment: Plan: * Treatment: * Images: * Electronic signature of Sherly Lacey MD on 04/22/2025 at 04:20 PM EDT Sign off status: Pending * Appointment Provider: Juanita LACEY MD Date: 11/16/2023 Generated for [place] ng/Facliftong/eTransmitting on: 0 04/22/2025 04:20 PM EDT
--- OUTSIDE RECORDS SUMMARY | 2025-04-14 09:10 | XMS_ITS | Encounter Summary ---
Author Organization [facility] Address [address] [place] [address] Phone Care Team Providers Care Lacrosse Player Name Role Phone June Preston MD Unavailable Conchita Aden MD Primary Care Provider [phone] Reason for Visit * Auth/Cert Specialty Diagnoses / Procedures Referred By Aleena t Referred To Contact Diagnoses Ventricular tachycardia (Multi) Procedures [place] COMPRE EP EVAL ABLTJ 3D MAPG [place] VT Ablation VT Kervin Fair MD [address] [facility] Medical Office [facility], [address] [place] [address] Phone: tel: fax: [facility] [id number] [address] [facility] [address] [place] [address] Phone: tel: fax: Referral ID Status Reason Start Date Expiration Date Visits Re quested Visits Authorized [id number] 1 1 Encounter Details Date Type Department Care Team (Latest Contact Info) Description 04/14/2025 9:10 AM EDT - 04/15/2025 1:15 PM EDT Hospital Encounter [facility] [id number] [place] [address] Kervin Fair MD [address] [facility], [address] [place] [address] ICD (implantable cardioverter-defibr illator) in place (Primary Dx); Ventricular tachycardia (Multi) Discharge Disposition: Home Social History Tobacco Use Types Packs/Day Years Used Date Smoking Tobacco: Every Day Cigarettes 0.5 50.5 Started: 1974 Smokeless Tobacco: Never Alcohol Use Standard Drinks/Week Comments Not Currently 0 (1 standard drink = 0.6 oz pur e alcohol) B1300 Health Literacy Answer Date Recor ded How often do you need to hav e someone help you when you read instructions, pamphlets, or other written material from your doctor or pharmacy? Never 01/08/2025 [facility] Utilities Answer Date Recorded In the past 12 months has e [employer], gas, oil, or water [employer] threatened to shut off services in your home? No 04/14/2025 Humiliation, Afraid, Rape, and Kick questionnair e Answer Date Recorded Within the last year, have y ou been afraid of your partner or ex-partner? No 04/14/2025 Within the last year, have y ou been humiliated or emotionally abused in other ways by your partner or ex-partner? No Within the last year, have y ou been kicked, hit, slapped, or otherwise physically hurt by your partner or ex-partner? No 04/14/2025 Within the last year, have y ou been raped or forced to have any kind of sexual activity by your partner or ex-partner? No 04/14/2025 Social Connection and Isolation Panel [NHANES] A nswer Date Recorded In a typical week, how many times do you talk on the phone with family, friends, or neighbors? Once a week 01/08/2025 How often do you get togethe r with friends or relatives? Once a week 01/08/2025 How often do you attend confucianist or zoroastrian serv ices? Patient declined 01/08/2025 Do you belong to any clubs o r organizations such as confucianist groups, unions, fraternal or athletic groups, or school groups? Patient declined 01/08/2025 How often do you attend meet ings of the clubs or organizations you belong to? Patient declined 01/08/2025 Are you , , di vorced, , never , or living with a partner? Patient declined 01/08/2025 AUDIT-C Answer Date Recorded Q1: How often do you have a drink containing alcohol? Never 04/14/2025 Q2: How many drinks containi ng alcohol do you have on a typical day when you are drinking? Patient does not drink Q3: How often do you have si x or more drinks on one occasion? Never 04/14/2025 Overall Financial Resource Strain (CARDIA) Answe r Date Recorded How hard is it for you to pa y for the very basics like food, housing, medical care, and heating? Not hard at all 04/14/2025 PHQ-2 Answer Date Recorded Patient Health Questionnaire-2 Score 0 04/14/2025 [facility] - Occupational Stress Questionnaire Answer Date [...] the money to buy more. Never true 04/14/20 25 Within the past 12 months, t he food you bought just didn't last and you didn't have money to get more. Never true 04/14/2025 PRAPARE - Transportation Answer Date Re corded In the past 12 months, has l ack of transportation kept you from medical appointments or from getting medications? No 04/02 In the past 12 months, has l ack of transportation kept you from meetings, work, or from getting things needed for daily living? No 04/14/2025 Housing Stability Vital Sign Answer Mookie e [...] the mortgage or rent on time? No 04/14/2025 In the past 12 months, how m any times have you moved where you were living? 1 04/14/2025 At any time in the [facility], were you homeless or living in a group home (including now)? No 04/14/2025 Comments No Sex and Gender Information Value [...] PM EDT documented as of this encounter Last Filed Vital Signs Vital Sign Reading Time Taken Comments Blood Pressure 123/66 04/15/2025 7:30 AM EDT Pulse 81 04/15/2025 7:30 AM EDT Temperature 35.7 C (96.3 F) 04/15/2025 7:30 AM EDT Respiratory Rate 15 04/15/2025 7:30 AM EDT Oxygen Saturation 100% 04/15/2025 7:30 AM EDT Inhaled Oxygen Concentration - - Weight 71.8 kg (158 lb 4.6 oz) 04/15/2025 4:53 A M EDT Height 157.5 cm (5' 2 ) 04/14/2025 7:27 PM EDT Body Mass Index 28.95 04/14/2025 7:27 PM EDT documented in this encounter Functional Status * Audit-C Score Answer Date of Assessment Author 0 04/14/2025 7:31 PM EDT Humza Ren RN * Question Answer Date of Assessment Author Q1: How often do you have a drink containing alcohol? Never 04/14/2025 7:31 PM EDT Vivek Ren R N Q2: How many drinks containing alcohol do you have on a typical day when you are drinking? Patient does not drink 04/14/2025 7:31 PM EDT Vivek Ren RN Q3: How often do you have six or more drinks on one occasion? Never 04/14/2025 7:31 PM EDT Vivek Ren R N * Over the past 2 weeks, how often have you been bothered by any of the following problems? Question Answer Date of Assessment Author Patient Health Questionnaire-2 Score 0 04/02 7:31 PM EDT Vivek Ren RN * Calculated C-SSRS Risk Score (Lifetime/Recent) Answer Date of Assessment Author No Risk Indicated 04/14/2025 9:41 AM EDT Meka Colindres RN * [place] Suicide Severity Rating Scale (Screener/Recent Self-Report) Question Answer Date of Assessment Author 1. Wish to be (Past 1 Month) No 025 9:41 AM CRISTINOT Meka Alcocer RN 2. Non-Specific Active Suici che Thoughts (Past 1 Month) No 04/14/2025 9:41 AM EDT Jhoan Alcocer RN 6. Suicidal Behavior (Lifetime) No 9:41 AM EDT Meka Alcocer RN * Question Answer Date of Assessment Author Little interest or pleasure in doing things Not at all 04/14/2025 7:31 PM EDT Vivek Ren R N Feeling down, depressed, or hopeless Not at all 04/14/2025 7:31 PM EDT Vivek Ren R N documented as of this encounter Discharge Summaries * Coy Shaver MD - 04/15/2025 10:30 AM EDT Discharge Diagnosis Ventricular tachycardia (Multi) Issues Requiring Follow-Up EP clinic with Dr. Fair as currently scheduled Test Results Pending At Discharge Pending Labs Order Current Status BB ORDER ONLY - Antibody Identification In process Path Review-Immunohematology In process Hospital Course 64 YOF with PMH of ICM/HFrEF (EF 35%) s/p Wilson dcICD, paroxysmal Afib (on Xarelto), paroxysmal VTs/p multiple ICD shocks, HTN, DM and COPD who underwent LV endocardial VT ablation for scar modification of large inferolateral scar via trans-septal approach by Dr. Fair. Access: Rt CFV x2 and Lt CFV x1 -> closed with Perclose. Her hospital course was uncomplicated and patient was discharged home with stable conditions. Due to her remote GIB with Warfarin and barely tolerated with low-dose Xarelto 10 mg daily, patient was discharged home with the same dose after LV endocardial RFAs. Visit Vitals BP 123/66 (BP Location: Right arm, Patient Position: Lying) Pulse 81 Temp 35.7 ??C (96.3 ??F) (Temporal) Resp 15 Vitals: 04/15/25 0453 Weight: 71.8 kg (158 lb 4.6 oz) Immunization History Administered Date(s) Administered Flu vaccine (IIV4), preservative free *Check age/dose* 08/24/2017, 09/14/2018 Flu vaccine, quadrivalent, no egg protein, age 6 month or greater (FLUCELVAX) 06/21/2021 Hep A / Hep B 04/16/2020 Influenza, Unspecified 11/02/2009, 09/24/2014, 12/08/2016, 08/02/2019 Influenza, seasonal, injectable 01/22/2021 Moderna SARS-CoV-2 Vaccination 02/19/2021, 06/21/2021 Pneumococcal polysaccharide vaccine, 23-valent, age 2 years and older (PNEUMOVAX 23) 11/09/2006, 12/08/2016, 04/16/2020 Tdap vaccine, age 7 year and older (BOOSTRIX, ADACEL) 08/02/2019, 04/16/2020, 06/10/2021 Zoster vaccine, recombinant, adult (SHINGRIX) 08/03/2019, 04/16/2020 Results Pertinent Physical Exam At Time of Discharge Physical Exam Vitals and nursing note reviewed. Cardiovascular: Rate and Rhythm: Normal rate and regular rhythm. Pulses: Normal pulses. Heart sounds: Normal heart sounds. Pulmonary: Effort: Pulmonary effort is normal. Breath sounds: Normal breath sounds. Musculoskeletal: General: Normal range of motion. Skin: General: Skin is warm. Capillary Refill: Capillary refill takes less than 2 seconds. Neurological: General: No focal deficit present. Mental Status: She is oriented to person, place, and time. Mental status is at baseline. Home Medications Medication List CONTINUE taking these medications albuterol 90 mcg/actuation inhaler; Inhale 2 puffs every 6 hours if needed for wheezing. amiodarone 200 mg tablet; Commonly known as: Pacerone; Take 1 tablet (200 mg) by mouth once daily. Do not fill before January 28, 2025. ascorbic acid 500 mg chewable tablet; Commonly known as: Vitamin C aspirin 81 mg EC tablet; Take 1 tablet (81 mg) by mouth 2 times a week. benzocaine-menthol lozenge; Commonly known as: Cepastat Sore Throat; Dissolve 1 lozenge in the mouth every 2 hours if needed for sore throat. ferrous sulfate 324 mg (65 mg elemental iron) EC tablet (delayed release) Invokana 300 mg; Generic drug: canagliflozin; Take 1 tablet (300 mg) by mouth once daily in the morning. Take before meals. lansoprazole [address] capsule; Commonly known as: Prevacid lisinopril 2.5 mg tablet; Take 1 tablet (2.5 mg) by mouth once daily. Take in the evening magnesium oxide 400 mg (241.3 mg elemental) tablet; Commonly known as: Mag-Ox meclizine 25 mg tablet; Commonly known as: Antivert melatonin 5 mg tablet metoprolol succinate XL 25 mg 24 hr tablet; Commonly known as: Toprol-XL; Take 2 tablets (50 mg) by mouth once daily. QUEtiapine 200 mg tablet; Commonly known as: SEROquel ranolazine 500 mg 12 hr tablet; Commonly known as: Ranexa; Take 1 tablet (500 mg) by mouth 2 times a day. rivaroxaban 10 mg tablet; Commonly known as: Xarelto; Take 1 tablet (10 mg) by mouth once daily. rOPINIRole 1 mg tablet; Commonly known as: Requip rosuvastatin 20 mg tablet; Commonly known as: Crestor; Take 1 tablet (20 mg) by mouth once daily. spironolactone 25 mg tablet; Commonly known as: Aldactone; Take 1 tablet (25 mg) by mouth once daily. STOP taking these medications mexiletine 150 mg capsule; Commonly known as: Mexitil pantoprazole 40 mg EC tablet; Commonly known as: ProtoNix ASK your doctor about these medications loperamide 2 mg capsule; Commonly known as: Imodium; Take 1 capsule (2 mg) by mouth 4 times a day as needed for diarrhea. oxyBUTYnin XL 10 mg 24 hr tablet; Commonly known as: Ditropan-XL Outpatient Follow-Up Future Appointments Date Time Provider Department Center 05/17/2025 3:30 PM Kervin Fair MD [id number] [place] 07/14/2025 1:00 PM Oscar Rodriguez MD [id number] [place] 09/26/2025 12:20 PM [facility] [id number] [place] 09/26/2025 1:00 PM June Preston MD [id number] [place] Coy Shaver MD Cosigned by Kervin Fair MD at 04/17/2025 8:06 AM EDT documented in this encounter Discharge Instructions * Discharge Instructions* Coy Shaver MD - 04/14/2025 8:18 AM EDT INSTRUCTIONS AFTER ABLATION PROCEDURE: * In the first week after ablation you should take it easy. No heavy lifting or heavy exertion, no treadmill. You can use the stairs if needed but go slowly and minimize the number of times up and down. * Some minor bruising is common at each groin access site with minor soreness as if you had banged the area. Bruising may occasionally be seen to extend down the leg. This is normal as is an occasional small quarter sized bump in the area. If larger swelling or more significant pain occurs at the area, please contact the office or go the nearest Emergency Room. * All medications will generally remain the same unless you are told otherwise. Resume taking your home medications today as listed on the discharge instructions. *Continue to follow up with your primary barrelhead inspector, primary care physician, and any other specialists you normally see. *No driving for 2 days post procedure (IF you were driving prior to procedure). *Diet: Heart healthy Call Provider If: Breathing faster than normal. Fever of 100.4 F (38 C) or higher. Chills. Any new concerning symptoms. Passing out. Patient Instructions, Next 24 hours: DO NOT drive a car, operate machinery or power tools. It is recommended that a responsible adult bewith you for the first 24 hours. DO NOT drink any alcoholic drinks or take any non-prescriptive medications that contain alcohol forthe first 24 hours. DO NOT make any important decisions for the first 24 hours. Activity: You are advised to go directly home from the hospital. DO NOT lift anything heavier than 10 pounds for one week, this allows for proper healing of the groin. No excessive exercise or treadmill use for one week. You may walk and do stairs, slowly. No sexual activities for 24 hours after you arrive home. Wound Care: If slight bleeding should occur at site, lie down and have someone apply firm pressure just above the puncture site for 5 minutes. If it continues or is profuse, call 911. Always notify your doctor if bleeding occurs. Keep site clean and dry. Let air dry or you may use a simple bandaid. Gently cleanse the puncture site in your groin with soap and water only. You may experience some tenderness, bruising or minimal inflammation. If you have any concerns, youmay contact the Pivot Maker or if any of these symptoms become excessive, contact your barrelhead inspector suly to the emergency room. No tub baths, soaking, or swimming for one week. May shower the next day after your procedure. If you have any questions about the effects of the sedative drugs or groin care, please call the physician who performed your procedure. FOLLOW UP: 1) Dr Kervin Fair ( Electrophysiology) 1 month after ablation as scheduled documented in this encounter Medications at Time of Discharge albuterol 90 mcg/actuation inhalerIndications:I CD (implantable cardioverter-defibri llator) discharge Inhale 2 puffs every 6 hours if needed for wheezing. 18 g 11 01/13/2025 amiodarone (Pacerone) 200 mg tabletIndications:Pa roxysmal ventricular tachycardia Take 1 tablet (200 mg) by mouth once daily. Do not fill before January 28, 2025. 90 tablet 1 01/28/2025 6 ascorbic acid (Vitamin C) 500 mg chewable tablet Chew 1 tablet (500 mg) once daily. 03/30/2025 aspirin 81 mg EC tabletIndications:At herosclerosis of [place] coronary artery of [place] heart without angina pectoris Take 1 tablet (81 mg) by mouth 2 times a week. 11/14/2024 benzocaine-menthol (Cepastat Sore Throat) lozengeIndications:I CD (implantable cardioverter-defibri llator) discharge Dissolve 1 lozenge in the mouth every 2 hours if needed for sore throat. 40 lozenge 01/13/2025 ferrous sulfate 324 mg (65 mg elemental iron) EC tablet (delayed release) Take 1 tablet (65 mg) by mouth every other day. 03/30/2025 Invokana 300 mgIndications:Type 2 diabetes mellitus without complication, without long-term current use of insulin,Atherosclero sis of [place] coronary artery of [place] heart without angina pectoris,Chronic systolic CHF (congestive heart failure) Take 1 tablet (300 mg) by mouth once daily in the morning. Take before meals. 90 tablet 3 11/21/2024 6 lansoprazole (Prevacid) [address] capsule Take [...] (241.3 mg magnesium) tablet Take 1 tablet by mouth 2 times a day. 07/28/2023 [...] 500 mg 12 hr tabletIndications:At herosclerosis of [place] coronary artery of [place] heart without angina pectoris Take 1 tablet (500 mg) by mouth 2 times a day. 180 tablet 3 12/20/2024 6 rivaroxaban (Xarelto) 10 mg tabletIndications:Ve ntricular tachycardia (Multi),Pulmonary embolism, unspecified chronicity, unspecified pulmonary embolism type, unspecified whether acute cor pulmonale present (Multi),High risk medication use Take 1 tablet (10 mg) by mouth once daily. 90 tablet 3 11/11/2024 rOPINIRole (Requip) 1 mg tablet Take 1 tablet (1 mg) by mouth 3 times a day. 02/08/2025 rosuvastatin (Crestor) 20 mg tabletIndications:At herosclerosis of [place] coronary artery of [place] heart without angina pectoris,Mixed hyperlipidemia Take 1 tablet (20 mg) by mouth once daily. 90 tablet 3 11/11/2024 6 spironolactone (Aldactone) 25 mg tabletIndications:Es sential hypertension Take 1 tablet (25 mg) by mouth once daily. 90 tablet 3 11/15/2024 6 documented as of this encounter Progress Notes * Leeanne Huber - 04/15/2025 1:29 PM EDT Latanya Martinez is a 64 y.o. female on day 0 of admission presenting with Ventricular tachycardia (Multi). Transitional [employer] Tech Note: Met with patient to discuss discharge planning s/p admission. Patient to discharge home today via taxi( transport). Patient home with VIRGIL. Leeanne Huber RN TCC via AFAR. * Albert Bhatia - 04/15/2025 10:03 AM EDT Pharmacy Medication History Review Latanya Martinez is a 64 y.o. female admitted for Ventricular tachycardia (Multi). Pharmacy reviewed the patient's [id number] medications and allergies for accuracy. Medications ADDED: Vitamin C 500mg Ferrous Sulfate EC 324mg Ropinirole HCL 1mg Medications CHANGED: None Medications REMOVED: None The list below reflects the updated READING INSTRUCTOR list. Prior to Admission Medications Prescriptions Last Dose Informant Invokana 300 mg 04/12/2025 Morning Self Sig: Take 1 tablet (300 mg) by mouth once daily in the morning. Take before meals. QUEtiapine (SEROquel) 200 mg tablet 04/12/2025 Bedtime Self Sig: Take 1 tablet (200 mg) by mouth once daily at bedtime. albuterol 90 mcg/actuation inhaler Unknown Self Sig: Inhale 2 puffs every 6 hours if needed for wheezing. amiodarone (Pacerone) 200 mg tablet 04/12/2025 Morning Self Sig: Take 1 tablet (200 mg) by mouth once daily. Do not fill before January 28, 2025. ascorbic acid (Vitamin C) 500 mg chewable tablet Self Sig: Chew 1 tablet (500 mg) once daily. aspirin 81 mg EC tablet 04/12/2025 Morning Self Sig: Take 1 tablet (81 mg) by mouth 2 times a week. benzocaine-menthol (Cepastat Sore Throat) lozenge Unknown Self Sig: Dissolve 1 lozenge in the mouth every 2 hours if needed for sore throat. ferrous sulfate 324 mg (65 mg elemental iron) EC tablet (delayed release) Self Sig: Take 1 tablet (65 mg) by mouth every other day. lansoprazole (Prevacid) [address] capsule 04/12/2025 Morning Self Sig: Take 1 capsule (30 mg) by mouth once daily. lisinopril 2.5 mg tablet 04/12/2025 Evening Self Sig: Take 1 tablet (2.5 mg) by mouth once daily. Take in the evening loperamide (Imodium) 2 mg capsule Not Taking Self Sig: Take 1 capsule (2 mg) by mouth 4 times a day as needed for diarrhea. Patient not taking: Reported on 04/15/2025 magnesium oxide (Mag-Ox) 400 mg (241.3 mg magnesium) tablet 04/11/2025 Evening Self Sig: Take 1 tablet by mouth 2 times a day. meclizine (Antivert) 25 mg tablet 04/12/2025 Morning Self Sig: Take 1 tablet (25 mg) by mouth 2 times a day. melatonin 5 mg tablet 04/13/2025 Bedtime Self Sig: Take 1 tablet (5 mg) by mouth once daily at bedtime. metoprolol succinate XL (Toprol-XL) 25 mg 24 hr tablet 04/12/2025 Morning Self Sig: Take 2 tablets (50 mg) by mouth once daily. mexiletine (Mexitil) 150 mg capsule Self Sig: Take 1 capsule (150 mg) by mouth every 8 hours. oxybutynin XL (Ditropan-XL) 10 mg 24 hr tablet Unknown Self Sig: Take 1 tablet (10 mg) by mouth once daily. Patient not taking: Reported on 04/14/2025 pantoprazole (ProtoNix) 40 mg EC tablet Not Taking Self Sig: Take 1 tablet (40 mg) by mouth early in the morning.. Do not crush, chew, or split. Patient not taking: Reported on 04/15/2025 rOPINIRole (Requip) 1 mg tablet Self Sig: Take 1 tablet (1 mg) by mouth 3 times a day. ranolazine (Ranexa) 500 mg 12 hr tablet 04/12/2025 Morning Self Sig: Take 1 tablet (500 mg) by mouth 2 times a day. rivaroxaban (Xarelto) 10 mg tablet 04/12/2025 Noon Self Sig: Take 1 tablet (10 mg) by mouth once daily. rosuvastatin (Crestor) 20 mg tablet 04/12/2025 Evening Self Sig: Take 1 tablet (20 mg) by mouth once daily. spironolactone (Aldactone) 25 mg tablet 04/12/2025 Morning Self Sig: Take 1 tablet (25 mg) by mouth once daily. Facility-Administered Medications: None The list below reflects the updated allergy list. Please review each documented allergy for additional clarification and justification. Allergies Reviewed by Albert Bhatia on 04/15/2025 No Known Allergies Patient accepts M2B at discharge. Sources: Pharmacy dispense history Patient Interview Good historian Chart Review Care Everywhere Additional Comments: Patient was a good historian Patient was able to recall medications by name, frequency, dose and use ALBERT BHATIA Subsystems Engineer 04/15/25 Secure Chat preferred If no response call [phone] or Vocera Med Rec Cosigned by Parth Barnes PharmD at 04/15/2025 12:35 PM EDT Associated attestation - Parth Barnes PharmD - 04/15/2025 12:35 PM EDT Sources: OARRS Additional Comments: Lisinopril recent dispense history for 5 mg tablet SIG one tablet daily. READING INSTRUCTOR med list had 2.5 mg daily (provider notified) Invokana last dispensed 11/21/24 for 90-day supply Xarelto- last dispensed 11/11/24 for 90-day supply Patient informed pharmacy operations manager, she was not sure if she took sertraline. Pharmacy dispense history for sertraline 25 mg last filled on 03/21/25 for 90-day supply SIG one tablet daily. On 02/24/25and 01/30/25, dispenses for 30-day supplies documented in this encounter H&P Notes * Mckenzie Layne MD - 04/14/2025 1:20 PM EDT History Of Present Illness Latanya Martinez is a 64 y.o. female with PMH of ICM/HFrEF (EF 35%) s/p Wilson dcICD, paroxysmal Afib (on Xarelto), paroxysmal VT s/p multiple ICD shocks, HTN, DM and COPD who is here for VT ablation byDr. Fair. Patient follows with Dr. Preston and Dr. Rodriguez. She initially received an ICD in 2022 for primary prevention of sudden cardiac . In September 2023, she received her first ICD shock for monomorphicventricular tachycardia at a rate of around 190 bpm. She was then placed on amiodarone. She then had further VT on amiodarone, and was started on mexiletine. She has continued to have recurrent VT despite amiodarone and mexiletine. On presentation to the hospital this time, she had 3 ICD shocks at home as well as 18 episodes of VT treated with ATP. These episodes of VT all appear to be monomorphic. Past Medical History Medical History[1] Surgical History Surgical History[2] Social History She reports that she has been smoking cigarettes. She started smoking about 50 years ago. She has a25.2 pack-year smoking history. She has never used smokeless tobacco. She reports that she does notcurrently use alcohol. She reports that she does not currently use drugs. Family History Family History[3] Allergies Patient has no known allergies. Review of Systems Constitutional: Negative for chills and fever. HENT: Negative for congestion and rhinorrhea. Eyes: Negative for pain and redness. Respiratory: Negative for shortness of breath and wheezing. Cardiovascular: Negative for chest pain and palpitations. Gastrointestinal: Negative for abdominal pain, constipation and diarrhea. Genitourinary: Negative for dysuria and hematuria. Musculoskeletal: Negative for back pain and neck pain. Neurological: Negative for dizziness and headaches. Psychiatric/Behavioral: Negative for agitation and confusion. Physical Exam Gen: awake and alert, AAOx3 HEENT: normocephalic. CV: RRR. No murmurs, gallops, rubs Pulm: clear to auscultation bilaterally. No coarse lung sounds Abd: soft, non-distended. Normal active bowel sounds Ext: warm and well-perfused. No LE edema Psych: appropriate affect Neuro: grossly intact sensation and motor functions. Last Recorded Vitals There were no vitals taken for this visit. Relevant Results Assessment & Plan Ventricular tachycardia ([facility]/HCC) Latanya Martinez is a 64 y.o. female with PMH of ICM/HFrEF (EF 35%) s/p Wilson dcICD, paroxysmal Afib (on Xarelto), paroxysmal VT s/p multiple ICD shocks, HTN, DM and COPD who is here for VT ablation byDr. Fair. Plan: VT ablation via transseptal approach under GA. I spent 30 minutes in the professional and overall care of this patient. Mckenzie Layne MD [1] Past Medical History: Diagnosis Date A-fib (Multi) Arrhythmia A-FIB, SVT CHF (congestive heart failure) COPD (chronic obstructive pulmonary disease) (Multi) Coronary artery disease Diabetes mellitus (Multi) Hyperlipidemia Hypertension Ischemic cardiomyopathy with implantable cardioverter-defibrillator (ICD) [2] Past Surgical History: Procedure Laterality Date CARDIAC CATHETERIZATION N/A 08/08/2024 Procedure: Left Heart Cath; Surgeon: Chanell Butler MD; Location: [facility]; Service: Cardiovascular; Laterality: N/A; Hold Coumadin/Invokana for 3 days prior/needs to arrive at 8am CARDIAC DEFIBRILLATOR PLACEMENT AICD CARDIAC ELECTROPHYSIOLOGY PROCEDURE N/A 11/26/2023 Procedure: NIPS (NONINVASIVE PROGRAMMED STIMULATION AND DEFIBRILLATOR THRESHOLD TESTING); Surgeon: June Preston MD; Location: [facility]; Service: Electrophysiology; Laterality: N/A; CORONARY ANGIOPLASTY PCI x4 in 2006 OTHER SURGICAL HISTORY 12/01/2021 Cardiac catheterization OTHER SURGICAL HISTORY 12/01/2021 Appendectomy OTHER SURGICAL HISTORY 12/01/2021 Cholecystectomy OTHER SURGICAL HISTORY 12/01/2021 Colostomy OTHER SURGICAL HISTORY 12/01/2021 Colon surgery OTHER SURGICAL HISTORY 12/01/2021 Cardiac catheterization with stent placement, PCI x4 OTHER SURGICAL HISTORY 12/01/2021 Tubal ligation OTHER SURGICAL HISTORY 12/01/2021 Wrist surgery OTHER SURGICAL HISTORY 01/22/2022 Complete colonoscopy [3] Family History Problem Relation Name Age of Onset Stroke Mother Stroke Father Coronary artery disease Sister Other (CABG) Brother Stroke Brother Cosigned by Kervin Fair MD at 04/14/2025 6:45 PM EDT documented in this encounter Miscellaneous Notes * Care Plan - Pepper Browne RN - 04/15/2025 1:22 PM EDT The patient's goals for the shift include Patient will not hemorrage at surgical sites The clinical goals for the shift include Patient will remain HDS through 04/15/25 1830. Patient remained HDS throughout shift. Patient discharged home with no home health needs. Patient given and explained discharge instructions and verbalized understanding. IVs removed. Tips intact. Tele discontinued. Patient walked down stairs in stable condition and driven home by ride through insurance. * Care Plan - Ashish Minor RN - 04/15/2025 7:59 AM EDT The patient's goals for the shift include Patient will not hemorrage at surgical sites The clinical goals for the shift include Patient will not hemorrage at surgical sites Problem: Pain - Adult Goal: Verbalizes/displays adequate comfort level or baseline comfort level 04/15/2025758 by Ashish Minor RN Outcome: Progressing 04/14/20252110 by Ashish Minor RN Outcome: Progressing Problem: Safety - Adult Goal: Free from fall injury 04/15/2025758 by Ashish Minor RN Outcome: Progressing 04/14/20252110 by Ashish Minor RN Outcome: Progressing Problem: Discharge Planning Goal: Discharge to home or other facility with appropriate resources 04/15/2025758 by Ashish Minor RN Outcome: Progressing 04/14/20252110 by Ashish Minor RN Outcome: Progressing Problem: Chronic Conditions and Co-morbidities Goal: Patient's chronic conditions and co-morbidity symptoms are monitored and maintained or improved 04/15/2025758 by Ashish Minor RN Outcome: Progressing 04/14/20252110 by Ashish Minor RN Outcome: Progressing Problem: Nutrition Goal: Nutrient intake appropriate for maintaining nutritional needs 04/15/2025758 by Ashish Minor RN Outcome: Progressing 04/14/20252110 by Ashish Minor RN Outcome: Progressing * Post-Procedure Note - Kervin Fair MD - 04/14/2025 1:09 PM EDT Physician Transition of Care Summary Invasive Cardiovascular Lab Procedure Date: 04/14/2025 Attending: * Kervin Fair - Primary Resident/Fellow/Other Provider Relations Rep: Surgeons and Role: * Mckenzie Layne MD - Fellow Indications: Pre-op Diagnosis * Ventricular tachycardia (Multi) [I47.20] Post-procedure diagnosis: Post-op Diagnosis * Ventricular tachycardia (Multi) [I47.20] Procedure(s): [place] [address] - [place] COMPRE EP EVAL ABLTJ 3D MAPG TX VT Procedure Findings: VT Description of the Procedure: Transseptal access Scar modification of large inferolateral scar RFV and LFV access sites closed with perclose Complications: None Stents/Implants: Implants No implant documentation for this case. Anticoagulation/Antiplatelet Plan: Continue xarelto Estimated Blood Loss: 10 mL Anesthesia: Monitor Anesthesia Care Anesthesia Staff: Anesthesiologist: Jarocho Saunders MD; Joyce Adan MD; Emory Garcia MD HEEL BLACKER: Kinza Parnell APRN-HEEL BLACKER C-AA: MERT Burton SRNA: Charlotte Vigil RN Any Specimen(s) Removed: Order Name Source Comment Collection Info Order Time TYPE AND SCREEN Blood, Venous Collected By: Meka Alcocer RN 04/14/2025 9:50 AM Release result to [facility] Immediate VERAB/VERIFY ABORH Blood, Venous This is for confirming/verifying history of ABORh on file for transfusion of blood products. If this is not for transfusion, please order an ABO/RH [[id number]]. If youhave any questions or unsure what to order, please call the blood bank. Collected By: Meka Alcocer RN 04/14/2025 9:50 AM Release result to [facility] Immediate Disposition: Overnight observation Electronically signed by: Kervin Fair MD, 04/14/2025 7:12 PM documented in this encounter Plan of Treatment Upcoming Encounters Date Type Department Care Team (Late st Contact Info) Description 05/17/2025 3:30 PM EDT Office Visit [facility] [address] [phone] Kervin Fair MD [address] [facility] [address], [address] [phone] 07/14/2025 1:00 PM EDT Office Visit [facility] [address] [place] [address] Oscar Rodriguez MD [address] [place] [address] 09/26/2025 12:20 PM EST Appointment [facility] [address] [place] [phone] 09/26/2025 1:00 PM EST Office Visit [facility] [address] [place] [address] June Preston MD [address] [facility] [address] [place] [address] documented as of this encounter Procedures Procedure Name Priority Date/Time Associated Diagnosis Comments ECG 12-LEAD Routine 04/14/2025 10:35 PM EDT ECG 12-LEAD Routine 04/14/2025 10:35 PM EDT ABLATION VT Routine 04/14/2025 6:08 PM EDT Ventricular tachycardia (Multi) ACTIVATED CLOTTING TIME HIGH Routine 04/14/2025 5:17 PM EDT ACTIVATED CLOTTING TIME HIGH Routine 04/14/2025 4:35 PM EDT ACTIVATED CLOTTING TIME HIGH Routine 04/14/2025 4:12 PM EDT ACTIVATED CLOTTING TIME HIGH Routine 04/14/2025 3:47 PM EDT ACTIVATED CLOTTING TIME HIGH Routine 04/14/2025 3:20 PM EDT CARDIAC DEVICE CHECK - ICD - PRE Routine 04/14/2025 2:20 PM EDT Ventricular tachycardia (Multi) ICD (implantable cardioverter-defibr illator) in place POCT GLUCOSE Routine 04/14/2025 9:57 AM EDT PATH REVIEW-IMMUNOHEMATOLOG Y STAT 04/14/2025 9:50 AM EDT BB ORDER ONLY - ANTIBODY IDENTIFICATION STAT 04/14/2025 9:50 AM EDT TYPE AND SCREEN STAT 04/14/2025 9:50 AM EDT VERAB/VERIFY ABORH STAT 04/14/2025 9: 45 AM EDT documented in this encounter Results * Electrocardiogram - Post Ablation (04/14/2025 10:35 PM EDT) Ventricular Rate 80 BPM MUSE Atrial Rate 80 BPM MUSE [place] Interval 144 ms MUSE QRS Duration 112 ms MUSE QT Interval 424 ms MUSE QTC Calculation(Baze tt) 489 ms MUSE P [place] 55 degrees MUSE R [place] 10 degrees MUSE T [place] 55 degrees MUSE QRS Count 13 beats MUSE Q Onset 218 ms MUSE P Onset 146 ms MUSE P Offset 179 ms MUSE T Offset 430 ms MUSE QTC Fredericia 467 ms MUSE 04/14/2025 6:59 PM EDT 04/21/2025 6:14 PM EDT Narrative MUSE - 04/21/2025 6:14 PM EDT Normal sinus rhythm Low voltage QRS Cannot rule out Anteroseptal infarct (cited on or before 11-JAN-2025) Abnormal ECG When compared with ECG of 14-APR-2025 18:59, No significant change was found Confirmed by Yosef Toure ([id number]) on 04/21/2025 6:14:55 PM Procedure Note Yosef Toure MD - 04/21/2025 Normal sinus rhythm Low voltage QRS Cannot rule out Anteroseptal infarct (cited on or before 11-JAN-2025) Abnormal ECG When compared with ECG of 14-APR-2025 18:59, No significant change was found Confirmed by Yosef Toure ([id number]) on 04/21/2025 6:14:55 PM us Mckenzie Layne MD ECG ORDERABLES Final Result MUSE * ECG 12 lead (04/14/2025 10:35 PM EDT) Ventricular Rate 80 BPM MUSE Atrial Rate 80 BPM MUSE [place] Interval 130 ms MUSE QRS Duration 132 ms MUSE QT Interval 426 ms MUSE QTC Calculation(Baze tt) 491 ms MUSE P [place] 56 degrees MUSE R [place] 12 degrees MUSE T [place] 70 degrees MUSE QRS Count 13 beats MUSE Q Onset 216 ms MUSE P Onset 151 ms MUSE P Offset 183 ms MUSE T Offset 429 ms MUSE QTC Fredericia 469 ms MUSE 04/14/2025 7:59 PM EDT 04/21/2025 6:15 PM EDT Narrative MUSE - 04/21/2025 6:15 PM EDT Normal sinus rhythm Nonspecific intraventricular block Cannot rule out Septal infarct (cited on or before 11-JAN-2025) Possible Lateral infarct (cited on or before 11-JAN-2025) Abnormal ECG When compared with ECG of 14-APR-2025 18:59, No significant change was found Confirmed by Yosef Toure ([id number]) on 04/21/2025 6:15:05 PM Procedure Note Yosef Toure MD - 04/21/2025 Normal sinus rhythm Nonspecific intraventricular block Cannot rule out Septal infarct (cited on or before 11-JAN-2025) Possible Lateral infarct (cited on or before 11-JAN-2025) Abnormal ECG When compared with ECG of 14-APR-2025 18:59, No significant change was found Confirmed by Yosef Toure ([id number]) on 04/21/2025 6:15:05 PM us Shubham Jonas MD ECG ORDERABLES Final Res ult MUSE * ABLATION VT (04/14/2025 6:08 PM EDT) Narrative [id number]_CARDIOLAB_XPER - 04/17/2025 10:31 AM EDT Images from the original result were not included. Radiofrequency catheter ablation with substrate modification targeting a large basal to mid inferolateral left ventricular scar, with only polymorphic VT inducible at the end of the procedure. Ventricular Tachycardia Ablation Procedures VT Ablation (83253), 3D Mapping (80146), His Bundle Recording (99893), Ultrasound Guided vascular access (67105), Intracardiac Echocardiogram (89195) Direct current cardioversion (21551) Patient history: Please refer to the detailed history and physical on the patient's medical chart. Procedure narrative: The risks, benefits, and alternatives to the procedure were explained to the patient and informed consent was obtained. After informed written consent was obtained the patient was transported to the electrophysiology laboratory in the post absorptive, non-sedated state. The team verification process was completed prior to the start of the procedure. Written consent and a completed procedural sedation form were confirmed. Allergies/Adverse reactions were noted and patient teaching was performed. The patient was positioned on table and bilateral arm supports with soft cushions and all pressure points were padded. A large diameter grounding pad was applied to the patient's thigh. ECG electrodes and a set of hands-free defibrillator pads were applied to the patient. A MCL/12 lead ECG was continuously monitored throughout the procedure. Noninvasive blood pressure, oxygen saturation, and capnography were monitored throughout the procedure. Supplemental oxygen was delivered via nasal cannula or facemask. General anesthesia was administered throughout the procedure by our staff anesthesiology service. Please see their notations for intubation and sedation. Throughout the procedure the patient's comfort (pain scale) and level of sedation (sedation scale) were noted every 5 minutes. PROGRAMMING AND INTERROGATION OF ICD: The Pt's ICD tachytherapay was turned off and programmed to DDI mode before the procedure, then evaluated and reprogrammed back to original settings (DDDR) post procedure. Non-invasive programmed stimulation was performed at the beginning of the procedure and induced polymorphic VT. Pt was defibrillated by her ICD (no ATP was delivered) VASCULAR ACCESS AND CATHETER PLACEMENT: Venous access was achieved utilizing the Seldinger technique with a cook needle under ultrasound guidance. Two sheaths (9Fr and 8.5Fr) were inserted in the right femoral vein and one 7Fr sheath was placed in the left femoral vein. After venous access was obtained, general anesthesia was administered. Via the left femoral vein 7Fr short sheath, RV catheter (CRD2)was advanced into the RV apex. Via right femoral vein 9Fr short sheath an ICE catheter was advanced into the mid RA for continuous ultrasound guidance and into the RVOT to evaluate for an effusion. Via 8.5Fr sheath, ablation catheter (ST/SF, Biosense Morales) was advanced into the RA. Using the ablation catheter and intra cardiac echo with the CARTO / CARTOsound mapping system, an anatomic shell of the right atrium/left atrium/left ventricle/Aortic root/Pulmonic valve was created. After access was obtained, a bolus injection of heparin was administered. The Activated Clotting Time maintained between 300-350 secs via the iSTAT machine with additional boluses q 30 minutes as necessary. TRANSSEPTAL ACCESS: Access to the left atrium and subsequently left ventricle was achieved using a transseptal approach. The location of the trans-septal needle in the fossa was confirmed using intracardiac echo. A long J-tip wire was passed through the superior right femoral vein 8.5 Fr sheath into the SVC, the 8.5Fr sheath was subsequently removed. A Vizigo sheath was advanced over wire into the SVC. The wire was removed and the Gray needle was advanced into the sheath. The Vizigo with the Gray needle were dragged from the SVC along the septum until engagement of the Fossa Ovalis was confirmed by interatrial tenting seen under intracardiac ultrasound guidance. The Gray needle was advanced into the left atrium and the needle position confirmed with ICE. The sheath with dilator were advanced carefully over the needle into the body of the left atrium. Once the Vizigo sheath was confirmed in the left atrium via intracardiac ultrasound, the wire and dilator were removed. The sheath was attached to pressure tubing and a 25cc/hr drip of heparinized saline maintained. IMAGING: The anatomic shell of the LV that was created by ablation catheter and CARTOsound was merged with previously obtained processed CT images. The Optrell catheter was advanced into the left atrium and then into the left ventricle. This was exchanged, when necessary, for the ablation catheter, which was advanced through the steerable sheath into the left ventricle. The long LA sheath and Optrell were continuously irrigated with heparinized saline at 20 - 25 ml/hr. MAPPING: Substrate mapping of the left ventricle endocardium was performed during Sinus rhythm. Areas of low voltage (less than 1.5 mv) were identified. Areas of late potentials in the scar were tagged. Areas of electrically unexcitable scar (pacing threshold greater than 10 mA at 2 ms pulse width) were tagged. Mapping showed diffuse and dense scar involving most of the LV with only a small area of normal voltage in the anterior wall. ABLATION: RF ablation using 1/2 NS and a power of 45 W was performed. We performed substrate modification for a large basal to mid inferolateral LV scar. Lesions were monitored for contact force and impedance drop. Lesions rendered each targeted region electrically unexcitable. POST-ABLATION PROVOCATION: Programmed stimulation from RV catheter performed at the end of the case showed polymorphic VT. Intracardiac ultrasound after ablation showed no pericardial effusion. POST-ABLATION: The ICE catheter was maneuvered into the RVOT. The epicardial space of the heart, including around the RV and LV, was evaluated and no effusion was visualized. Sheaths were removed and hemostasis was obtained at the bilateral femoral venous access sites with Perclose. Five minutes of manual compression was applied to maintain hemostasis. Complications: No complications occurred. EBL <20mL CONCLUSIONS Radiofrequency catheter ablation with substrate modification targeting a large basal to mid inferolateral left ventricular scar, with only polymorphic VT inducible at the end of the procedure. RECOMMENDATIONS Admit for overnight observation. Continue amiodarone and mexiletine. EP outpatient f/up. ATTESTATION: As the responsible attending physician, I was present and directly participating in all critical portions of the procedure and immediately available during the non-critical portions. Kervin Fair MD CV ELECTROPHYSIOLOGY PROCEDURES Final Result [email or web address]_CARDIOLAB_XPER * (ABNORMAL) ACTIVATED CLOTTING TIME HIGH (04/14/2025 5:17 PM EDT) [facility] POCT Activated Clotting Time High Range 353(H) 82 - 174 sec 04/14/2025 5:24 PM EDT [facility] Comment: Target ACT range will vary based on the patient population, clinical status, and surgical intervention occurring. Blood Venous blood specimen / Unknown 04/14/2025 5:17 PM EDT 04/14/2025 5:24 PM EDT us Kervin Fair MD LAB POINT OF CARE TE ST DOCKED DEVICE UNSOLICITED RESULTS Final Result Performing Organization Address [facility] Co de Phone Number [facility] [id number] [address] * (ABNORMAL) ACTIVATED CLOTTING TIME HIGH (04/14/2025 4:35 PM EDT) POCT Activated Clotting Time High Range 380(H) 82 - 174 sec 04/14/2025 4:42 PM EDT [facility] Comment: Target ACT range will vary based on the patient population, clinical status, and surgical intervention occurring. Blood Venous blood specimen / Unknown 04/14/2025 4:35 PM EDT 04/14/2025 4:42 PM EDT us Kervin Fair MD LAB POINT OF CARE TE ST DOCKED DEVICE UNSOLICITED RESULTS Final Result Performing Organization Address [facility] de Phone Number [facility] [id number] [place] [phone] * (ABNORMAL) ACTIVATED CLOTTING TIME HIGH (04/14/2025 4:12 PM EDT) [facility] POCT Activated Clotting Time High Range 274(H) 82 - 174 sec 04/14/2025 4:18 PM EDT [facility] Comment: Target ACT range will vary based on the patient population, clinical status, and surgical intervention occurring. Blood Venous blood specimen / Unknown 04/14/2025 4:12 PM EDT 04/14/2025 4:18 PM EDT us Kervin Fair MD LAB POINT OF CARE TE ST DOCKED DEVICE UNSOLICITED RESULTS Final Result Performing Organization Address [facility] Co de Phone Number [facility] [id number] [place] [phone] * (ABNORMAL) ACTIVATED CLOTTING TIME HIGH (04/14/2025 3:47 PM EDT) Pathologist [facility] POCT Activated Clotting Time High Range 214(H) 82 - 174 sec 04/14/2025 3:52 PM EDT [facility] Comment: Target ACT range will vary based on the patient population, clinical status, and surgical intervention occurring. Blood Venous blood specimen / Unknown 04/14/2025 3:47 PM EDT 04/14/2025 3:52 PM EDT us Kervin Fair MD LAB POINT OF CARE TE ST DOCKED DEVICE UNSOLICITED RESULTS Final Result Performing Organization Address [facility] de Phone Number [address] [address] * (ABNORMAL) ACTIVATED CLOTTING TIME HIGH (04/14/2025 3:20 PM EDT) [facility] POCT Activated Clotting Time High Range 214(H) 82 - 174 sec 04/14/2025 3:27 PM EDT [facility] Comment: Target ACT range will vary based on the patient population, clinical status, and surgical intervention occurring. Blood Venous blood specimen / Unknown 04/14/2025 3:20 PM EDT 04/14/2025 3:27 PM EDT us Kervin Fair MD LAB POINT OF CARE TE ST DOCKED DEVICE UNSOLICITED RESULTS Final Result Performing Organization Address [facility] Co de Phone Number [facility] [address] [place] [phone] * CARDIAC DEVICE CHECK - ICD - PRE (04/14/2025 2:20 PM EDT) Anatomical Region Laterality Modality Echocardiography 04/14/2025 2:10 PM EDT us Kervin Fair MD CV IMPLANTABLE CARDIAC DEVICE P ROCEDURES Final Result * (ABNORMAL) POCT GLUCOSE (04/14/2025 9:57 AM EDT) [facility] POCT Glucose 113(H) 74 - 99 mg/dL 04/14/2025 9:59 AM EDT [facility] Blood Capillary blood specimen / Unknown 04/14/2025 9:57 AM EDT 04/14/2025 9:59 AM EDT Kervin Fair MD LAB POINT OF CARE TE ST DOCKED DEVICE UNSOLICITED RESULTS Final Result Performing Organization Address [facility]/ZIP Co de Phone Number [facility] [address] [address] [phone] * Path Review-Immunohematology (04/14/2025 9:50 AM EDT) [facility] PATH REV-IMMUNOHEMA TOLOGY Antibody detection screen is positive. Antibody identification panel was performed. The autocontrol is negative. Previously identified alloantibody anti-c (little C) is reacting. Unable to rule out E (Big E). The patient's RBC phenotype is c (little c)-antigen negative and E (Big E)-antigen negative. All other common clinically significant alloantibodies have been ruled out. Full crossmatched c (little c)-antigen negative and E (Big E)-antigen negative donor RBC units should be selected for transfusion for this patient. 04/17/2025 5:28 PM EDT [facility] Comment: . By the signature on this report, the individual or group listed as making the Final Interpretation/Diagnosis certifies that they have reviewed this case. Blood Venous blood specimen / Unknown Venipuncture / Unknown 04/14/2025 9:50 AM EDT 04/14/2025 10:04 AM EDT Kervin Fair MD LAB BLOOD BANK TEST ORDERABLES Final Result Performing Organization Address City/[facility]/ZIP Co de Phone Number [facility] [address] [place] [address] * BB ORDER ONLY - Antibody Identification (04/14/2025 9:50 AM EDT) Antibody ID ANTI-LITTL E C 04/17/2025 11:57 AM EDT [facility] CASE # [id number] 04/17/2025 11:57 AM EDT [facility] Blood Venous blood specimen / Unknown Venipuncture / Unknown 04/14/2025 9:50 AM EDT 04/14/2025 10:04 AM EDT Narrative [facility] - 04/17/2025 11:57 AM EDT ANTI-E ANTIBODY COULD NOT BE RULED OUT AT THIS TIME. Kervin Fair MD LAB BLOOD BANK TEST ORDERABLES Final Result Performing Organization Address [facility] Co de Phone Number [facility] [address] [place] [address] * Type And Screen (04/14/2025 9:50 AM EDT) ABO TYPE A 04/14/2025 11:29 AM EDT [facility] Rh TYPE POS 04/14/2025 11:29 AM EDT [facility] ANTIBODY SCREEN POS 11:29 AM EDT [facility] Blood Venous blood specimen / Unknown Venipuncture / Unknown 04/14/2025 9:50 AM EDT 04/14/2025 10:04 AM EDT Kervin Fair MD LAB BLOOD BANK TEST ORDERABLES Final Result Performing Organization Address City/[facility]/ZIP Co de Phone Number [facility] [address] [place] [address] * VERIFY ABO/Rh Group Test (04/14/2025 9:45 AM EDT) ABO TYPE A 04/14/2025 11:55 AM EDT [facility]OD [facility] Rh TYPE POS 04/14/2025 11:55 AM EDT [facility] Blood Venous blood specimen / Unknown Venipuncture / Unknown 04/14/2025 9:45 AM EDT 04/14/2025 10:06 AM EDT Kervin Fair MD LAB BLOOD BANK TEST ORDERABLES Final Result [facility] [address] [place] [id number] documented in this encounter Visit Diagnoses Diagnosis Ventricular tachycardia (CMS/HCC)- Primary Paroxysmal ventricular tachycardia ICD (implantable cardioverter-defibrillator) in place VT (ventricular tachycardia) (Multi) Paroxysmal ventricular tachycardia Ventricular tachycardia (Multi) Paroxysmal ventricular tachycardia documented in this encounter Admitting Diagnoses Diagnosis Ventricular tachycardia (Multi) Paroxysmal ventricular tachycardia documented in this encounter Administered Medications Inactive Administered Medications - up to 3 most recent administrations Medication Order MAR Action Action Date Dose Rate Site acetaminophen (Tylenol) tablet 650 mg 650 mg, oral, Every 6 hours PRN, pain mild (1-3), first line, Starting on Thu04/14/25 at 2006, If ordered PRN for pain, nurse is permitted to administer this medication for higher pain scores based on patient preference? Yes Given 04/14/2025 8:21 PM EDT 650 mg amiodarone (Pacerone) tablet 200 mg 200 mg, oral, Daily, First dose on 04/15/25 at 0900 Given 04/15/2025 8:58 AM EDT 200 mg metoprolol succinate XL (Toprol-XL) 24 hr tablet 50 mg 50 mg, oral, Daily, First dose on 04/15/25 at 0900, Do not crush or chew. Given 04/15/2025 8:58 AM EDT 50 mg mexiletine (Mexitil) capsule 150 mg 150 mg, oral, Every 8 hours scheduled, First dose on Thu04/14/25 at 2200 Given 04/15/2025 6:32 AM EDT 150 mg Given 04/14/2025 10:09 PM EDT 150 mg pantoprazole (ProtoNix) EC tablet 40 mg 40 mg, oral, Daily before breakfast, First dose on Thu04/14/25 at 2030, Do not crush, chew, or split. Given 04/15/2025 6:32 AM EDT 40 mg Given 04/14/2025 8:22 PM EDT 40 mg ranolazine (Ranexa) 12 hr tablet 500 mg 500 mg, oral, 2 times daily, First dose on Thu04/14/25 at 2100, Do not crush, chew, or split. Given 04/15/2025 8:58 AM EDT 500 mg Given 04/14/2025 8:22 PM EDT 500 mg rivaroxaban (Xarelto) tablet 10 mg 10 mg, oral, Daily, First dose on Thu04/14/25 at 1930 Given 04/15/2025 8:58 AM EDT 10 mg Given 04/14/2025 10:10 PM EDT 10 mg documented in this encounter Active and Recently Administered Medications Times are shown in EDT. Scheduled Medication Order 04/13/2025 04/14/2025 04/15/2025 amiodarone (Pacerone) tablet 200 mg 200 mg, oral, Daily, First dose on Thu04/15/25 at 0900 0858 (Given - Provid er: Pepper Browne RN) metoprolol succinate XL (Toprol-XL) 24 hr tablet 50 mg 50 mg, oral, Daily, First dose on Thu04/15/25 at 0900, Do not crush or chew. 0858 (Given - Provid er: Pepper Browne RN) mexiletine (Mexitil) capsule 150 mg 150 mg, oral, Every 8 hours scheduled, First dose on Thu04/14/25 at 2200 2209 (Given - Provider: Ashish Minor RN) 0632 (Given - Provider: Ashish Minor RN)1352 (Not Given - Provider: Pepper Browne RN - Reason: Other - Comment: patient discharged) pantoprazole (ProtoNix) EC tablet 40 mg 40 mg, oral, Daily before breakfast, First dose on Thu04/14/25 at 2030, Do not crush, chew, or split. 2021 (Given - Provider: Ashish Minor RN) 0632 (Given - Provider: Ashish Minor RN) ranolazine (Ranexa) 12 hr tablet 500 mg 500 mg, oral, 2 times daily, First dose on Thu04/14/25 at 2100, Do not crush, chew, or split. 2021 (Given - Provider: Ashish [place], PAULA) 0858 (Given - Provider: Pepper Browne, PAULA) rivaroxaban (Xarelto) tablet 10 mg 10 mg, oral, Daily, First dose on Thu04/14/25 at 1930 2210 (Given - Provider: Ashish [place], PAULA) 0858 (Given - Provider: Pepper Browne, PAULA) PRN Medication Order 04/13/2025 04/14/2025 04/15/2025 acetaminophen (Tylenol) tablet 650 mg 650 mg, oral, Every 6 hours PRN, pain mild (1-3), first line, Starting on Thu04/14/25 at 2006, If ordered PRN for pain, nurse is permitted to administer this medication for higher pain scores based on patient preference? Yes 2020 (Given - Provider: Kartik Minor RN) bupivacaine PF (Marcaine) 0.5 % (5 mg/mL) injection (CANCELED) As needed, Starting on Thu04/14/25 at 1422, Intraprocedure 1422 (Given - Provider: Anselmo Layne MD)1426 (Given - Provider: Mckenzie Layne MD) heparin 1,000 unit/mL injection (CANCELED) As needed, Starting on Thu04/14/25 at 1504, Intraprocedure 1504 (Given - Provider: Yulisa Rubi RN)1525 (Given - Provider: Marietta Rubi RN)1551 (Given - Provider: Kinza Copeland RN - Comment: for anticoagulation per md order verified by Srini Sweeney RN)1616 (Given - Provider: Sho Sweeney RN)1640 (Given - Provider: Kinza Copeland RN) documented in this encounter Additional Health Concerns Assessment Noted Time PHQ-9 Depression Total Score: 9 01/23/20 22 11:33 AM EDT A fall risk assessment has been complete d for the patient 03/01/2024 12:30 PM EDT documented as of this encounter Care Teams Lacrosse Player Relationship Specialty Start Date End Date Conchita Aden MD [address] [place] [address] PCP - General Family Medicine 11/11/24 June Preston MD [address] [facility], [facility] [address] [place] [address] Material Hauler Electrophysiology 09/13/24 documented as of this encounter
--- OUTSIDE RECORDS SUMMARY | 2025-04-14 11:00 | XMS_ITS | Encounter Summary ---
Author Organization [facility] Address [address] [place] [address] Phone Care Team Providers Care Contract Paralegal Name Role Phone June Preston MD Unavailable Conchita Aden MD Primary Care Provider [phone] Reason for Visit * Auth/Cert Specialty Diagnoses / Procedures Referred By Aleena t Referred To Contact Diagnoses Ventricular tachycardia (Multi) Procedures [place] COMPRE EP EVAL ABLTJ 3D MAPG [place] Ablation [place] Kervin Fair MD [address] [facility] Medical Office [facility], [address] [place] [address] Phone: tel: fax: [facility] [address] [place] [address] [place] [address] Phone: tel: fax: Referral ID Status Reason Start Date Expiration Date Visits Re quested Visits Authorized [id number] 1 Encounter Details Date Type Department Care Team (Late st Contact Info) Description 04/14/2025 11:00 AM EDT - 04/14/2025 3:00 PM EDT Surgery [facility] [place] [address] [place] [address] [place] [phone] Kervin Fair MD [address] [facility] Medical Office [facility], [address] [place] [address] Abl[place] [[address] (CPT )] Social History Tobacco Use Types Packs/Day Years [...] from your doctor or pharmacy? Never 01/08/2025 [facility] Utilities Answer Date Recorded In the past 12 months has e [employer], gas, oil, or water [employer] threatened to shut off services in your [...] week 01/08/2025 How often do you attend holiness or holiness serv ices? Patient declined 01/08/2025 Do you belong to any clubs o r organizations such as holiness groups, unions, fraternal or athletic groups, or [...] Recorded Patient Health Questionnaire-2 Score 0 04/14/2025 [facility] - Occupational [...] place to sleep or slept in a long term (including now)? No 02/16/2024 Housing Stability Vital [...] were you homeless or living in a long term (including now)? No 04/14/2025 Comments No Sex [...] PM EDT documented as of this encounter Functional Status * Calculated C-SSRS Risk Score (Lifetime/Recent) Answer Date of Assessment Author No Risk Indicated 04/14/2025 9:41 AM EDT Meka Colindres RN * [place] Suicide Severity Rating Scale (Screener/Recent Self-Report) Question Answer Date of Assessment Author 1. Wish to be (Past 1 Month) No 025 9:41 AM EDT Meka Alcocer RN 2. Non-Specific Active Suici che Thoughts (Past 1 Month) No 04/14/2025 9:41 AM EDT Jhoan Alcocer RN 6. Suicidal Behavior (Lifetime) No 9:41 AM EDT Meka Alcocer RN documented as of this encounter Discharge Summaries [...] Center 05/17/2025 3:30 PM Kervin Fair MD [id number] [place] 07/14/2025 1:00 PM Oscar Rodriguez MD [id number] [place] 09/26/2025 12:20 PM [facility] [id number] [place] 09/26/2025 1:00 PM June Preston MD [id number] [place] Coy Shaver MD Cosigned by Kervin Fair [...] *Continue to follow up with your primary director presales, primary care physician, and any other specialists [...] you have any concerns, youmay contact the Weight Recorder or if any of these symptoms become excessive, contact your director presales suly to the emergency room. No tub [...] January 28, 2025. 90 tablet 1 01/28/2025 ascorbic acid (Vitamin C) 500 mg chewable tablet Chew 1 tablet (500 mg) once daily. 03/30/2025 aspirin 81 mg EC tabletIndications:At herosclerosis of hoh coronary artery of hoh heart without angina pectoris Take 1 tablet [...] long-term current use of insulin,Atherosclero sis of hoh coronary artery of hoh heart without angina pectoris,Chronic systolic CHF (congestive [...] 500 mg 12 hr tabletIndications:At herosclerosis of hoh coronary artery of hoh heart without angina pectoris Take 1 tablet (500 mg) by mouth 2 times a day. 180 tablet 3 12/20/2024 6 rivaroxaban (Xarelto) 10 mg tabletIndications:Ve ntricular tachycardia (Multi),Pulmonary embolism, unspecified chronicity, unspecified pulmonary embolism type, unspecified whether acute cor pulmonale present (Multi),High risk medication use Take 1 tablet (10 mg) by mouth once daily. 90 tablet 3 11/11/2024 6 rOPINIRole (Requip) 1 mg tablet Take 1 tablet (1 mg) by mouth 3 times a day. 02/08/2025 rosuvastatin (Crestor) 20 mg tabletIndications:At herosclerosis of hoh coronary artery of hoh heart without angina pectoris,Mixed hyperlipidemia Take 1 [...] admission presenting with Ventricular tachycardia (Multi). Transitional Insurance Adviser Note: Met with patient to discuss discharge planning s/p admission. Patient to discharge home today via taxi( transport). Patient home with VIRGIL. Leeanne Huber RN TCC via [employer]. * Albert Bhatia - 04/15/2025 10:03 AM EDT Pharmacy Medication History Review Latanya Martinez is a 64 y.o. female admitted for Ventricular tachycardia (Multi). Pharmacy reviewed the patient's [id number] medications and allergies for accuracy. Medications ADDED: Vitamin C 500mg Ferrous Sulfate EC 324mg Ropinirole HCL 1mg Medications CHANGED: None Medications REMOVED: None The list below reflects the updated [employer]UM[employer]ING [employer] HEATING MECH[employer]IC list. Prior to Admission Medications Prescriptions Last [...] name, frequency, dose and use ALBERT BHATIA Labor Arbitrator 04/15/25 Secure Chat preferred If no response call [phone] or Vocera Med Rec Cosigned by Parth Barnes PharmD at 04/15/2025 12:35 PM EDT Associated attestation - Parth Barnse PharmD - 04/15/2025 12:35 PM EDT Sources: OARRS Additional Comments: Lisinopril recent dispense history for 5 mg tablet SIG one tablet daily. [employer] med list had 2.5 mg daily (provider notified) Invokana last dispensed 11/21/24 for 90-day supply Xarelto- last dispensed 11/11/24 for 90-day supply Patient informed pharmacy tech, she was not sure if she took [...] Relevant Results Assessment & Plan Ventricular tachycardia (CMS/HCC) Latanya Martinez is a 64 y.o. female [...] Heart Cath; Surgeon: Chanell Butler MD; Location: [facility]; Service: Cardiovascular; Laterality: N/A; Hold Coumadin/Invokana for 3 days prior/needs to arrive at 8am CARDIAC DEFIBRILLATOR PLACEMENT AICD CARDIAC ELECTROPHYSIOLOGY PROCEDURE N/A 11/26/2023 Procedure: NIPS (NONINVASIVE PROGRAMMED STIMULATION AND DEFIBRILLATOR THRESHOLD TESTING); Surgeon: June Preston MD; Location: [facility]; Service: Electrophysiology; Laterality: N/A; CORONARY ANGIOPLASTY PCI [...] Attending: * Kervin Fair - Primary Resident/Fellow/Other Electronic Engraver: Surgeons and Role: * Mckenzie Layne MD - Fellow Indications: Pre-op Diagnosis * Ventricular tachycardia (Multi) [I47.20] Post-procedure diagnosis: Post-op Diagnosis * Ventricular tachycardia (Multi) [I47.20] Procedure(s): [place] [address] - [place] COMPRE EP EVAL ABLTJ 3D MAPG [place] [...] MD; Joyce Adan MD; Emory Garcia MD EXPLOSIVES WORKER: Kinza Parnell APRN-EXPLOSIVES WORKER C-AA: MERT Burton SRNA: Charlotte Vigil RN Any Specimen(s) Removed: Order Name Source Comment Collection Info Order Time TYPE AND SCREEN Blood, Venous Collected By: Meka Alcocer RN 04/14/2025 9:50 AM Release result to [employer] VERAB/VERIFY ABORH Blood, Venous This is for confirming/verifying history of ABORh on file for transfusion of blood products. If this is not for transfusion, please order an ABO/RH [[id number]]. If youhave any questions or unsure what to order, please call the blood bank. Collected By: Meka Alcocer RN 04/14/2025 9:50 AM Release result to [employer] Disposition: Overnight observation Electronically signed by: Kervin Fair MD, 04/14/2025 7:12 PM documented in this encounter Plan of Treatment Upcoming Encounters Date Type Department Care Team (Late st Contact Info) Description 05/17/2025 3:30 PM EDT Office Visit [facility] [address] [phone] Kervin Fair MD [address] [facility] Medical Office Bldg, [address] [place] [address] 07/14/2025 1:00 PM EDT Office Visit [facility] [address] [place] [address] Oscar Rodriguez MD [address] [place] [address] 09/26/2025 12:20 PM EST Appointment [facility] [address] [place] [address] 09/26/2025 1:00 PM EST Office Visit [facility] [address] [place] [address] June Preston MD [address] [facility] Medical Office Bldg, [address] [place] [address] documented as of this encounter Procedures Procedure [...] BPM MUSE Atrial Rate 80 BPM MUSE [place] Interval 144 ms MUSE QRS Duration 112 ms MUSE QT Interval 424 ms MUSE QTC Calculation(Baze tt) 489 ms MUSE P [place] 55 degrees MUSE R [place] 10 degrees MUSE T [place] 55 degrees MUSE QRS Count 13 beats [...] Mckenzie Layne MD ECG ORDERABLES Final Result Performing Organization Address [facility]/ZIP Co de Phone Number MUSE * ECG 12 lead (04/14/2025 10:35 PM EDT) Ventricular Rate 80 BPM MUSE Atrial Rate 80 BPM MUSE [place] Interval 130 ms MUSE QRS Duration 132 ms MUSE QT Interval 426 ms MUSE QTC Calculation(Baze tt) 491 ms MUSE P [place] 56 degrees MUSE R [place] 12 degrees MUSE T [place] 70 degrees MUSE QRS Count 13 beats [...] procedure. Ventricular Tachycardia Ablation Procedures [place] Ablation (69832), 3D Mapping (18665), His Bundle Recording (58256), Ultrasound Guided vascular access (64950), Intracardiac Echocardiogram (44016) Direct current cardioversion (55416) Patient history: Please refer to the detailed [...] effusion. Via 8.5Fr sheath, ablation catheter (ST/SF, [employer]) was advanced into the RA. Using the [...] SVC. The wire was removed and the Helena needle was advanced into the sheath. The Vizigo with the Helena needle were dragged from the SVC along the septum until engagement of the Fossa Ovalis was confirmed by interatrial tenting seen under intracardiac ultrasound guidance. The Helena needle was advanced into the left atrium [...] and immediately available during the non-critical portions. us Kervin Fair MD CV ELECTROPHYSIOLOGY PROCEDURES Final Result SYNGO_SECTRA_CARDIOLAB_XPER * (ABNORMAL) ACTIVATED CLOTTING TIME HIGH (04/14/2025 5:17 PM EDT) [facility] Signature POCT Activated Clotting Time High Range 353(H) 82 - 174 sec 04/14/2025 5:24 PM EDT [facility] Comment: Target ACT range will vary based on the patient population, clinical status, and surgical intervention occurring. Blood Venous blood specimen / Unknown 04/14/2025 5:17 PM EDT 04/14/2025 5:24 PM EDT us Kervin Fair MD LAB POINT OF CARE TE ST DOCKED DEVICE UNSOLICITED RESULTS Final Result Performing Organization Address [facility] de Phone Number [facility] [address] [place] [address] * (ABNORMAL) ACTIVATED CLOTTING TIME HIGH (04/14/2025 4:35 PM EDT) Pathologist [facility] POCT Activated Clotting Time High Range 380(H) 82 - 174 sec 04/14/2025 4:42 PM EDT [facility] Comment: Target ACT range will vary based on the patient population, clinical status, and surgical intervention occurring. Blood Venous blood specimen / Unknown 04/14/2025 4:35 PM EDT 04/14/2025 4:42 PM EDT Result Rhonda Fair MD LAB POINT OF CARE TE ST DOCKED DEVICE UNSOLICITED RESULTS Final Result Performing Organization Address [facility] de Phone Number [facility] [address] [place] [phone] * (ABNORMAL) ACTIVATED CLOTTING TIME HIGH (04/14/2025 4:12 PM EDT) Pathologist [facility] POCT Activated Clotting Time High Range 274(H) 82 - 174 sec 04/14/2025 4:18 PM EDT [facility] Comment: Target ACT range will vary based on the patient population, clinical status, and surgical intervention occurring. Blood Venous blood specimen / Unknown 04/14/2025 4:12 PM EDT 04/14/2025 4:18 PM EDT Result Rhonda Fair MD LAB POINT OF CARE TE ST DOCKED DEVICE UNSOLICITED RESULTS Final Result Performing Organization Address [facility] de Phone Number [facility] [address] [place] [phone] * (ABNORMAL) ACTIVATED CLOTTING TIME HIGH (04/14/2025 3:47 PM EDT) POCT Activated Clotting Time High Range 214(H) 82 - 174 sec 04/14/2025 3:52 PM EDT [facility] Comment: Target ACT range will vary based on the patient population, clinical status, and surgical intervention occurring. Blood Venous blood specimen / Unknown 04/14/2025 3:47 PM EDT 04/14/2025 3:52 PM EDT us Kervin Fair MD LAB POINT OF CARE TE ST DOCKED DEVICE UNSOLICITED RESULTS Final Result Performing Organization Address [facility] de Phone Number [facility] [address] [place] [phone] * (ABNORMAL) ACTIVATED CLOTTING TIME HIGH (04/14/2025 3:20 PM EDT) Pathologist [facility] POCT Activated Clotting Time High Range 214(H) 82 - 174 sec 04/14/2025 3:27 PM EDT [facility] Comment: Target ACT range will vary based on the patient population, clinical status, and surgical intervention occurring. Blood Venous blood specimen / Unknown 04/14/2025 3:20 PM EDT 04/14/2025 3:27 PM EDT us Kervin Fair MD LAB POINT OF CARE TE ST DOCKED DEVICE UNSOLICITED RESULTS Final Result Performing Organization Address [facility] Co de Phone Number [facility] [address] [place] [phone] * CARDIAC DEVICE CHECK - ICD - PRE (04/14/2025 2:20 PM EDT) Anatomical Region Laterality Modality Echocardiography 04/14/2025 2:10 PM EDT us Kervin Fair MD CV IMPLANTABLE CARDIAC DEVICE P ROCEDURES Final Result * (ABNORMAL) POCT GLUCOSE (04/14/2025 9:57 AM EDT) [facility] POCT Glucose 113(H) 74 - 99 mg/dL 04/14/2025 9:59 AM EDT [facility] Blood Capillary blood specimen / Unknown 04/14/2025 9:57 AM EDT 04/14/2025 9:59 AM EDT Kervin Fair MD LAB POINT OF CARE TE ST DOCKED DEVICE UNSOLICITED RESULTS Final Result [facility] [address] [facility] [id number] [place] [address] * Path Review-Immunohematology (04/14/2025 9:50 AM EDT) [facility] PATH REV-IMMUNOHEMA TOLOGY Antibody detection screen is [...] for this patient. 04/17/2025 5:28 PM EDT [facility] Comment: . By the signature on this report, the individual or group listed as making the Final Interpretation/Diagnosis certifies that they have reviewed this case. Blood Venous blood specimen / Unknown Venipuncture / Unknown 04/14/2025 9:50 AM EDT 04/14/2025 10:04 AM EDT us Kervin Fair MD LAB BLOOD BANK TEST ORDERABLES Final Result Performing Organization Address [facility] Co de Phone Number [facility] [address] [place] [address] * BB ORDER ONLY - Antibody Identification (04/14/2025 9:50 AM EDT) Pathologist [facility] Antibody ID ANTI-LITTL E C 04/17/2025 11:57 AM EDT [facility] CASE # [id number] 04/17/2025 11:57 AM EDT [facility] Blood Venous blood specimen / Unknown Venipuncture / Unknown 04/14/2025 9:50 AM EDT 04/14/2025 10:04 AM EDT Narrative [facility] - 04/17/2025 11:57 AM EDT ANTI-E ANTIBODY COULD NOT BE RULED OUT AT THIS TIME. Kervin Fair MD LAB BLOOD BANK TEST ORDERABLES Final Result Performing Organization Address [facility] Co de Phone Number [facility] [address] [place] [address] * Type And Screen (04/14/2025 9:50 AM EDT) Pathologist [facility] ABO TYPE A 04/14/2025 11:29 AM EDT [facility] Rh TYPE POS 04/14/2025 11:29 AM EDT [facility] ANTIBODY SCREEN POS 11:29 AM EDT [facility] Blood Venous blood specimen / Unknown Venipuncture / Unknown 04/14/2025 9:50 AM EDT 04/14/2025 10:04 AM EDT Kervin Fair MD LAB BLOOD BANK TEST ORDERABLES Final Result Performing Organization Address [facility] Co de Phone Number [facility] [address] [place] [address] * VERIFY ABO/Rh Group Test (04/14/2025 9:45 AM EDT) ABO TYPE A 04/14/2025 11:55 AM EDT [facility] Rh TYPE POS 04/14/2025 11:55 AM EDT [facility] Blood Venous blood specimen / Unknown Venipuncture / Unknown 04/14/2025 9:45 AM EDT 04/14/2025 10:06 AM EDT Kervin Fair MD LAB BLOOD BANK TEST ORDERABLES Final Result [facility] [address] [place] [address] documented in this encounter Visit Diagnoses Diagnosis Ventricular tachycardia (CMS/HCC)- Primary Paroxysmal ventricular tachycardia ICD (implantable cardioverter-defibrillator) in place Ventricular tachycardia (Multi) Paroxysmal ventricular tachycardia documented [...] Daily, First dose on Thu04/15/25 at 0900 Given 04/15/2025 8:58 AM EDT 200 mg bupivacaine PF (Marcaine) 0.5 % (5 mg/mL) injection As needed, Starting on Thu04/14/25 at 1422, Intraprocedure Given 04/14/2025 2:26 PM EDT 20 mL Given 04/14/2025 2:22 PM EDT 20 mL heparin 1,000 unit/mL injection As needed, Starting on Thu04/14/25 at 1504, Intraprocedure Given 04/14/2025 4:40 PM EDT 2,000 Units Given 04/14/2025 4:16 PM EDT 4,000 Units Given 04/14/2025 3:51 PM EDT 5,000 Units metoprolol succinate XL (Toprol-XL) 24 hr tablet [...] 2021 (Given - Provider: Ashish Minor RN) 0858 (Given - Provider: Pepper Browne, PAULA) rivaroxaban (Xarelto) tablet 10 mg 10 mg, oral, Daily, First dose on Thu04/14/25 at 1930 2210 (Given - Provider: Ashish Minor RN) 0858 (Given - Provider: Pepper Browne, PAULA) PRN Medication Order 04/13/2025 04/14/2025 04/15/2025 acetaminophen (Tylenol) tablet 650 mg 650 mg, oral, Every 6 hours PRN, pain mild (1-3), first line, Starting on Thu04/14/25 at 2007, If ordered PRN for pain, nurse is [...] Marietta Rubi RN)1551 (Given - Provider: Kinza Copeland, PAULA - Comment: for anticoagulation per order verified by Srini Sweeney RN)1616 (Given - Provider: Sho Sweeney, PAULA)1640 (Given - Provider: Kinza Copeland, PAULA) documented in this encounter Additional Health Concerns Assessment Noted Time PHQ-9 Depression Total Score: 9 01/23/20 22 11:33 AM EDT A fall risk assessment has been complete d for the patient 03/01/2024 12:30 PM EDT documented as of this encounter Care Teams Contract Paralegal Relationship Specialty Start Date End Date Conchita Aden MD [address] [place] [address] [place] [address] PCP - General Family Medicine 11/11/24 June Preston MD [address] [facility] Medical Office Bldg[address] [place] [address] Ice Delivery Driver Electrophysiology 09/13/24 documented as of this encounter
--- OUTSIDE RECORDS SUMMARY | 2025-04-14 13:09 | XMS_ITS | Encounter Summary ---
Author Organization [facility] Address [address] [place] [address] Phone Care Team Providers Care Powerhouse Laborer Name Role Phone June Preston MD Unavailable Conchita Aden MD Primary Care Provider [phone] Reason for Visit * Auth/Cert Specialty Diagnoses / Procedures Referred By Contac t Referred To Contact Diagnoses Ventricular tachycardia (Multi) Procedures OR COMPRE EP EVAL ABLTJ 3D MAPG TX VT Ablation VT Kervin Fair MD [address] [facility] [address] [place] [address] Phone: tel: fax: [facility] [address] [place] [address] Phone: tel: fax: Referral ID Status Reason Start Date Expiration Date Visits Re quested Visits Authorized [id number] 1 1 Encounter Details Date Type Department Care Team (Late st Contact Info) Description 04/14/2025 1:09 PM EDT Anesthesia Event [facility] [id number] [place] [phone] [place] [address] [place] [address] Charlotte Vigil RN Anesthesia Record Procedure Summary Procedure Name Responsible Anesthesiologist Anesthesia Start Time Anesthesia Stop Time Ablation VT Joyce Adan MD 04/14/25 1309 1818 Events Date Time Event Comment 04/14/2025 1309 An Start 1309 An Start Data 1309 In Room 1310 1422 Proc Start 1440 An Induction The patient was reevaluated immediately before moderate or deep sedation use and before anesthesia induction. 1444 An Intubation 1445 Anesthesia Ready 1515 Johnathon Anes request to EP to increase paced rate 1711 Johnathon No effusion; st aff attribute acute pressure drop to stimulation of aortic valve 1729 An Defib 1759 An Extubation 1808 Proc Fin 1808 Out of Room 1818 an stop data 1818 Handoff to Receiving I compl eted my handoff to the receiving clinician during which we: 1. Identified the patient 2. Identified the responsible provider 3. Reviewed the pertinent medical history 4. Discussed the surgical course 5. Reviewed intra-op anesthesia management and issues during anesthesia 6. Set expectations for post-procedure period 7. Allowed opportunity for questions and acknowledgement of understanding. 1817 An Stop Meds Name Total rocuronium 10 mg/mL 80 mg ondansetron 4 mg/2 mL 4 mg propofol 10 mg/mL 200 mg fentaNYL PF 50 mcg/mL 100 mcg midazolam 1 mg/mL 2 mg dexmedeTOMidine 4 mcg/mL in NS 5 mL syri nge 80 mcg dexmedeTOMIDine 4 mcg/mL in 100 mL NS in fusion 41.6 mcg phenylephrine (Jairon-Synephrine) 10 mg/250 mL NS (40 mcg/mL) infusion 5.8 mg phenylephrine (Jairon-Synephrine) injection 1,520 mcg dexAMETHasone (Decadron) 4 mg/mL 4 mg ePHEDrine 50 mg/mL 20 mg norepinephrine (Levophed) 8 mg / 250 mL NS (premix) 0.01 mg protamine 10 mg/mL 25 mg sugammadex 100 mg/mL 200 mg LR bolus 900 mL * Agents Name O2 Air Sevoflurane Inspired Sevoflurane N2O Inspired N2O Inspired O2 Setting * Blood No blood administrations on file. Lines, Drains, and Airways Type Details Placement Removal Arterial Line Placement Date: 04/02 01/24; Placement Time: 1354 (created via procedure documentation); Size: 20 G; Orientation: Right; Location: Radial; Securement: Transparent dressing; Patient Tolerance: Tolerated well; Removal Date: 04/14/25; Removal Time: 1822 06/13/25 1354 by Charlotte Vigil RN 04/14/25 1822 by Meka Alcocer RN Venous Sheath 04/14/25; 1428; Othe r (Comment) (8.5); Right; Femoral; 04/14/25; 1743 04/14/25 1428 by Kinza Copeland RN 04/14/25 1743 by Kinza Copeland RN Venous Sheath 04/14/25; 1429; Othe r (Comment) (9); Right; Femoral; 04/14/25; 1743 04/14/25 1429 by Kinza Copeland RN 04/14/25 1743 by Kinza Copeland RN Venous Sheath 04/14/25; 1429; 7 Fr .; Left; Femoral; 04/14/25; 1750 04/14/25 1429 by Kinza Copeland RN 04/14/25 1750 by Kinza Copeland RN ETT Placement Date: 04/02 01/24; Placement Time: 1444 (created via procedure documentation); Mask Ventilation: 2; Technique: Direct laryngoscopy; Type: ETT - single; Single Lumen Tube Size: 7 mm; Cuffed: Yes; Laryngoscope: Gaviota; Blade Size: 3; Location: Oral; Grade View: Grade I; Insertion Attempts: 1; Placement Verification: Auscultation; Removal Date: 04/14/25; Removal Time: 175804/14/25 1444 by Charlotte Vigil RN 04/14/25 175 by MERT Burton Peripheral IV Placement Date: 04/02 01/24; Placement Time: 1831; Catheter Size: 22 G; Orientation: Left, Posterior; Location: Hand; Site Prep: Alcohol; Technique: Anatomical landmarks; Insertion Attempts: 3; Patient Tolerance: Tolerated well; Removal Date: 04/15/25; Removal Time: 1043 04/14/25 183 by Sarah Tse RN 04/15/25 1043 by Pepper Browne RN documented in this encounter Social History Tobacco Use Types Packs/Day Years [...] the past 12 months has th e electric, gas, oil, or water company threatened to shut off services in your [...] week 01/08/2025 How often do you attend anglican or sabianism serv ices? Patient declined 01/08/2025 Do you belong to any clubs o r organizations such as anglican groups, unions, fraternal or athletic groups, or [...] Recorded Patient Health Questionnaire-2 Score 0 04/14/2025 [facility] - Occupational Stress Questionnaire Answer Date [...] living in a residential (including now)? No 04/14/2025 Comments No Sex [...] as of this encounter Functional Status * Audit-C Score [...] Patient does not drink 04/14/2025 7:31 PM CRISTINOT Vivek Ren RN Q3: How often do [...] Author No Risk Indicated 04/14/2025 9:41 AM CRISTINOT Meka Colindres RN * [place] Suicide Severity Rating Scale (Screener/Recent Self-Report) Question [...] R N documented as of this encounter OR Notes * Anesthesia Postprocedure Evaluation - MERT Burton - 04/14/2025 6:18 PM EDT Patient: Latanya Martinez Procedure Summary Date: 04/14/25 Room / Location: [facility] / Virtual [facility] [employer]iac [employer] Counter Specialist Anesthesia Start: 1309 Anesthesia Stop: 1817 Procedure: Ablation VT Diagnosis: Ventricular tachycardia (Multi) Providers: Kervin Fair MD Responsible Provider: Joyce Adan MD Anesthesia Type: general ASA Status: Not recorded Anesthesia Type: general Vitals Value Taken Time BP 101/63 04/14/25 18:18 Temp 36..4 04/14/25 18:18 Pulse 80 04/14/25 18:18 Resp 101/63 04/14/25 18:18 SpO2 97 % 04/14/25 18:15 Anesthesia Post Evaluation Patient location during evaluation: PACU Patient participation: complete - patient participated Level of consciousness: awake and alert Pain management: satisfactory to patient Airway patency: patent Cardiovascular status: acceptable, hemodynamically stable and stable Respiratory status: acceptable and room air Hydration status: acceptable Postoperative Nausea and Vomiting: none No notable events documented. * Anesthesia Procedure Notes - Charlotte Vigil RN - 04/14/2025 2:56 PM EDT Associated Order(s): Arterial Line Arterial Line: Date/Time: 04/14/2025 1:54 PM Staffing Performed: CORE DRILLING SUPERVISOR Authorized by: Emory Garcia MD Performed by: Charlotte Vigil RN An arterial line was placed. in the OR for the following indication(s): continuous blood pressure monitoring and blood sampling needed. A 20 gauge (size), 1 and 3/4 inch (length), Angiocath (type) catheter was placed into the Right radial artery, secured by Tegaderm Seldinger technique used. Events: patient tolerated procedure well with no complications. * Anesthesia Procedure Notes - Charlotte Vigil RN - 04/14/2025 2:55 PM EDT Associated Order(s): Airway Airway Date/Time: 04/14/2025 2:44 PM Reason: elective Airway not difficult Staffing Performed: SRNA Authorized by: Emory Garcia MD Performed by: Charlotte Vigil RN Patient location during procedure: OR Patient Condition Indications for airway management: anesthesia Patient position: sniffing Sedation level: deep Final Airway Details Preoxygenated: yes Final airway type: endotracheal airway Successful airway: ETT Cuffed: yes Successful intubation technique: direct laryngoscopy Endotracheal tube insertion site: oral Blade: Gaviota Blade size: #3 ETT size (mm): 7.0 Cormack-Lehane Classification: grade I - full view of glottis Placement verified by: chest auscultation Cuff volume (mL): 8 Measured from: lips ETT to lips (cm): 21 Number of attempts at approach: 1 * Anesthesia Preprocedure Evaluation - MERT Burton - 04/14/2025 1:09 PM EDT Patient: Latanya Martinez Procedure Information Anesthesia Start Date/Time: 04/14/25 1309 Procedure: Ablation VT - [employer] Morales. Location: [facility] / Virtual [facility] [address] [employer]iac [employer] Counter Specialist Providers: Kervin Fair MD Relevant Problems Cardiac (+) Atherosclerosis of cahto coronary artery of cahto heart without angina pectoris (+) Essential hypertension (+) Hyperlipidemia (+) ICD (implantable cardioverter-defibrillator) in place (+) Paroxysmal ventricular tachycardia (+) Stable angina pectoris due to arteriosclerosis of coronary artery (+) Ventricular tachycardia (CMS/HCC) Pulmonary (+) Chronic bronchitis (Multi) (+) Chronic obstructive pulmonary disease (Multi) (+) Moderate persistent asthma without complication (HHS-HCC) (+) Pulmonary embolism Neuro (+) Anxiety (+) Bipolar 1 disorder (Multi) (+) Mixed bipolar affective disorder, moderate (Multi) (+) Polyneuropathy due to type 2 diabetes mellitus (Multi) (+) Severe episode of recurrent major depressive disorder, without psychotic features (Multi) GI (+) Gastroesophageal reflux disease without esophagitis (+) Oropharyngeal dysphagia Endocrine (+) Polyneuropathy due to type 2 diabetes mellitus (Multi) (+) Type 2 diabetes mellitus Hematology (+) Iron deficiency anemia Musculoskeletal (+) Degeneration of lumbar intervertebral disc ID (+) Oral thrush Clinical information reviewed: Allergies Meds NPO Detail: NPO/Void Status Date of Last Liquid: 04/13/25 Time of Last Liquid: 1999 Date of Last Solid: 04/13/25 Time of Last Solid: 1999 Physical Exam Airway Mallampati: II TM distance: >3 FB Neck ROM: limited Mouth openin or more finger widths Cardiovascular Rhythm: regular Dental Pulmonary (+) decreased breath sounds Abdominal Anesthesia Plan History of general anesthesia?: yes History of complications of general anesthesia?: no ASA 3 Anesthetic plan and risks discussed with patient. Use of blood products discussed with patient who consented to blood products. Plan discussed with CORE DRILLING SUPERVISOR. documented in this encounter Plan of Treatment Upcoming Encounters Date Type Department Care Team (Late st Contact Info) Description 05/17/2025 3:30 PM EDT Office Visit [facility] [address] [facility] [address] [place] [phone] Kervin Fair MD [address] [facility] Office [facility] [place] [address] 07/14/2025 1:00 PM EDT Office Visit [facility] [address] [facility] [address] [place] [address] Oscar Rodriguez MD [address] [facility] [address] [place] [address] 09/26/2025 12:20 PM EST Appointment [facility] [address] [place] [facility] [place] [address] 09/26/2025 1:00 PM EST Office Visit [facility] [address] [facility] [address] [place] [address] June Preston MD [address] [facility] [address] [place] [address] documented as of this encounter Procedures Procedure Name Priority Date/Time Associated Diagnosis Comments OR AN ELECTIVE ENDOTRACHEAL AIRWAY Routine 04/14/2025 2:44 PM EDT ANESTHESIA ARTERIAL LINE PLACEMENT Routine 04/14/2025 1:54 PM EDT documented in this encounter Results * OR AN ELECTIVE ENDOTRACHEAL AIRWAY (04/14/2025 2:44 PM EDT) Charlotte Hussein RN - 04/14/2025 2:44 PM EDT Charlotte Vigil RN 04/14/2025 2:56 PM Airway Date/Time: 04/14/2025 2:44 PM Reason: elective Airway not difficult Staffing Performed: SRNA Authorized by: Emory Garcia MD Performed by: Charlotte Vigil RN Patient location during procedure: OR Patient Condition Indications for airway management: anesthesia Patient position: sniffing Sedation level: deep Final Airway Details Preoxygenated: yes Final airway type: endotracheal airway Successful airway: ETT Cuffed: yes Successful intubation technique: direct laryngoscopy Endotracheal tube insertion site: oral Blade: Gaviota Blade size: #3 ETT size (mm): 7.0 Cormack-Lehane Classification: grade I - full view of glottis Placement verified by: chest auscultation Cuff volume (mL): 8 Measured from: lips ETT to lips (cm): 21 Number of attempts at approach: 1 us Emory Garcia MD ANESTHESIA ORDERABLES Final Resu lt * ANESTHESIA ARTERIAL LINE PLACEMENT (04/14/2025 1:54 PM EDT) Charlotte Hussein RN - 04/14/2025 1:54 PM EDT Charlotte Vigil RN 04/14/2025 2:57 PM Arterial Line: Date/Time: 04/14/2025 1:54 PM Staffing Performed: CORE DRILLING SUPERVISOR Authorized by: Emory Garcia MD Performed by: Charlotte Vigil RN An arterial line was placed. in the OR for the following indication(s): continuous blood pressure monitoring and blood sampling needed. A 20 gauge (size), 1 and 3/4 inch (length), Angiocath (type) catheter was placed into the Right radial artery, secured by Tegaderm Seldinger technique used. Events: patient tolerated procedure well with no complications. us Emory Garcia MD ANESTHESIA ORDERABLES Final Resu lt documented in this encounter Visit Diagnoses Not on filedocumented in this encounter Administered Medications Inactive Administered Medications - up to 3 most recent administrations Medication Order MAR Action Action Date Dose Rate Site dexAMETHasone (Decadron) injection intravenous, As needed, Starting on Thu04/14/25 at 1502, Anesthesia Intraprocedure Given 04/14/2025 3:02 PM EDT 4 mg dexmedeTOMIDine (Precedex) 400 mcg in 100 mL (4 mcg/mL) sodium chloride 0.9% infusion intravenous, Continuous PRN, Starting on Thu04/14/25 at 1401, Anesthesia Intraprocedure Rate/Dose Change 04/14/2025 2:20 PM EDT 0.8 mcg/kg/hr 12.8 mL/hr Rate/Dose Change 04/14/2025 2:15 PM EDT 0.6 mcg/kg/hr 9.6 mL/hr New Bag 04/14/2025 2:01 PM EDT 0.4 mcg/kg/hr 6.4 mL/hr dexmedeTOMIDine in 0.9 % NaCL intravenous, As needed, Starting on Thu04/14/25 at 1401, Anesthesia Intraprocedure Given 04/14/2025 2:36 PM EDT 8 mcg Given 04/14/2025 2:24 PM EDT 12 mcg Given 04/14/2025 2:20 PM EDT 12 mcg ePHEDrine injection intravenous, As needed, Starting on Thu04/14/25 at 1603, Anesthesia Intraprocedure Given 04/14/2025 5:11 PM EDT 1 0 mg Given 04/14/2025 4:12 PM EDT 5 mg Given 04/14/2025 4:03 PM EDT 5 mg fentaNYL PF (Sublimaze) injection intravenous, As needed, Starting on Thu04/14/25 at 1415, Anesthesia Intraprocedure Given 04/14/2025 2:40 PM EDT 5 0 mcg Given 04/14/2025 2:22 PM EDT 25 mcg Given 04/14/2025 2:15 PM EDT 25 mcg lactated Ringer's bolus intravenous, Administer over 2 Hours, Continuous PRN, Starting on Thu04/14/25 at 1243, Anesthesia Intraprocedure New Bag 04/14/2025 12:43 PM EDT midazolam (Versed) injection intravenous, As needed, Starting on Thu04/14/25 at 1319, Anesthesia Intraprocedure Given 04/14/2025 1:19 PM EDT 2 mg norepinephrine (Levophed) 8 mg in sodium chloride 0.9% 250 mL (0.032 mg/mL) infusion (premix) intravenous, Continuous PRN, Starting on Thu04/14/25 at 1726, Anesthesia Intraprocedure New Bag 04/14/2025 5:26 PM EDT 0.01 mcg/kg/min 1.2 mL/hr ondansetron (Zofran) injection intravenous, As needed, Starting on Thu04/14/25 at 1735, Anesthesia Intraprocedure Given 04/14/2025 5:35 PM EDT 4 mg phenylephrine (Jairon-Synephrine) 10 mg in sodium chloride 0.9% 250 mL (0.04 mg/mL) infusion (premix) intravenous, Continuous PRN, Starting on Thu04/14/25 at 1457, Anesthesia Intraprocedure Rate/Dose Change 04/14/2025 5:37 PM EDT 0.3 mcg/kg/min 28.8 mL/hr Rate/Dose Change 04/14/2025 3:25 PM EDT 0.6 mcg/kg/min 57 .6 mL/hr Rate/Dose Change 04/14/2025 3:09 PM EDT 0.4 mcg/kg/min 38. 4 mL/hr phenylephrine (Jairon-Synephrine) injection intravenous, As needed, Starting on Thu04/14/25 at 1455, Anesthesia Intraprocedure Given 04/14/2025 5:19 PM ED T 160 mcg Given 04/14/2025 4:30 PM EDT 120 mcg Given 04/14/2025 4:08 PM EDT 120 mcg propofol (Diprivan) injection intravenous, As needed, Starting on Thu04/14/25 at 1440, Anesthesia Intraprocedure Given 04/14/2025 2:40 PM EDT 2 00 mg protamine injection intravenous, As needed, Starting on Thu04/14/25 at 1734, Anesthesia Intraprocedure Given 04/14/2025 5:34 PM EDT 2 5 mg rocuronium (ZeMuron) injection intravenous, As needed, Starting on Thu04/14/25 at 1441, Anesthesia Intraprocedure Given 04/14/2025 5:09 PM EDT 1 0 mg Given 04/14/2025 5:05 PM EDT 10 mg Given 04/14/2025 4:30 PM EDT 10 mg sugammadex (Bridion) injection intravenous, As needed, Starting on Thu04/14/25 at 1542, Anesthesia Intraprocedure Given 04/14/2025 3:42 PM EDT 2 00 mg documented in this encounter Additional Health Concerns Assessment Noted Time PHQ-9 Depression Total Score: 9 01/23/20 22 11:33 AM EDT A fall risk assessment has been complete d for the patient 03/01/2024 12:30 PM EDT documented as of this encounter Care Teams Powerhouse Laborer Relationship Specialty Start Date End Date Conchita Aden MD [facility] [facility] [place] [address] [place] [address] PCP - General Family Medicine 11/11/24 June Preston MD [address] [facility] [address], [address] [place] [address] Plant Technician Electrophysiology 09/13/24 documented as of this encounter
[2025-04-22] VITALS (31 sets, daily range): BP systolic 106–139; BP diastolic 55–75; PULSE 0–119; TEMP 36.3; O2SAT 95–99; BMI 27.3
--- NOTE | 2025-04-22 16:06 | ECG_ITS ---
[facility] Test Date: 2025-04-22 Pat Name: KING MORENO Department: Room: - Gender: Female Industrial Maintenance Technician: : 1960 Requested By: 1860 Order Number: [id number] Reading MD: CROW MORRISON M.D. Measurements Intervals Andrews Rate: 87 P: 57 CA: 136 QRS: 19 QRSD: 92 T: 90 QT: 386 QTc: 430 Interpretive Statements [id number] Electronic atrial pacemaker with premature atrial complexes and fusion complexes 3234 Anteroseptal myocardial infarction, age undetermined 9150 abnormal ECG Compared to ECG 04/10/2025 20:03:18 Sinus rhythm no longer present Myocardial infarct finding still present Electronically Signed On 04-23-2025 22:02:37 EDT by CROW MORRISON M.D.
--- OUTSIDE RECORDS SUMMARY | 2025-04-22 16:20 | XMS_ITS | Encounter Summary ---
Author Organization [facility] Address [address] [place] [address] Phone Care Team Providers Care Signal Timer Name Role Phone Generic Provider, No Assigned Pcp Primary Car e Provider Unavailable Diane Min RN Unavailable Unavailable June Preston MD Unavailable Conchita Aden MD Primary Care Provider [phone] Diane Min RN Unavailable Unavailable Earlene Eubanks RN Unavailable Encounter Details Date Type Department Care Team (Late st Contact Info) Description 10/29/2024 Scanned Document [facility] [address] [place] [address] Scanning, Generic Provider Social History [...] any time in the past 12 m [facility], were you homeless or living in a residential (including now)? No 09/01/2024 Comments No Sex and Gender Information Value Date Recorded Sex Assigned at Not on file Legal Sex Female 10:34 AM EST Gender Identity Not on file Sexual Orientation Not on file documented as of this encounter Plan of Treatment Upcoming Encounters Date Type Department Care Team (Late st Contact Info) Description 05/17/2025 3:30 PM EDT Office Visit [facility] [address] [facility] [address] [place] [address] Kervin Fair MD [address] [facility] Medical Office [facility], [address] [place] [address] 07/14/2025 1:00 PM EDT Office Visit [facility] [address] [facility] [address] [place] [address] Oscar Rodriguez MD [address] [facility] [address], [address] [place] [address] 09/26/2025 12:20 PM EST Appointment [facility] [address] [place] [address] 09/26/2025 1:00 PM EST Office Visit [facility] [address] [facility] [address] [place] [phone] June Preston MD [address] [facility] Office [facility], [facility] [address] [place], [place] [phone] documented as of this encounter Visit Diagnoses [...] documented as of this encounter Care Teams Signal Timer Relationship Specialty Start Date End Date Generic Provider, No Assigned Pcp, [place] [address] PCP - General Fire Control Officer 08/08/24 11/10/24 Conchita Aden MD [address] [place] [address] [address] [place] [address] PCP - General Family Medicine 11/11/24 Diane Min, kettle skimmerCompliance Manager 09/05/24 12/06/24 June Preston MD [address] [facility] Office [facility], [address] [address] Autocad Detailer Electrophysiology 09/13/24 Diane Min, kettle skimmerCompliance Manager 01/16/25 01/31/25 Earlene Eubanks, RN Watch Parts InspectorCompliance Manager 04/17/25 documented as of this encounter
--- OUTSIDE RECORDS SUMMARY | 2025-04-22 16:20 | XMS_ITS | Encounter Summary ---
Author Organization [facility] Address [address] [place], [place] [phone] Care Team Providers Care Data Integrity Analyst Name Role Phone Shanthi Litstephanie Nelson DO Primary Care Provider [phone] Reza Pike MD Primary Care Provider Pcp, No WING COVERER Primary Care Provider Unavailabl e Source Comments In the event this information is protected by the Federal Confidentiality of Alcohol and Drug AbusePatient Records regulations: The Federal rules restrict any use of the information to criminally investigate or prosecute any alcohol or drug abuse patient.[facility] Encounter Details Date Type Department Care Team (Late st Contact Info) Description 06/01/2015 Letters (in) Colorectal Surgery [id number] Marcial Ceballos (Hist) [address] [id number] Social History Tobacco Use Types Packs/Day Years [...] June 01, 2015 Jd Dailey, DO [address] [address] RE: Latanya Martinez : [address] [...] and she was suitable for anesthesia, a restorationist of continuity could be performed. I performed [...] Ceballos MD VT/ cc: Latanya Martinez 11/03 [place] [address] Lit Maki DO [address] [facility] [address] documented in this encounter Plan of Treatment Not on file documented as of this encounter Visit Diagnoses Not on filedocumented in this encounter Care Teams Data Integrity Analyst Relationship Specialty Start Date End Date Lit Maki DO PCP - General 05/16/15 06/03/15 Reza Pike MD PCP - General Family Medicine 06/04/15 05/16/22 Pcp, No, WING COVERER PCP - General 05/17/22 12/02/22 documented as of this encounter
--- OUTSIDE RECORDS SUMMARY | 2025-04-22 16:20 | XMS_ITS | Clinical Summary ---
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) from Last 3 Months or Most Recently Relevant to Health Maintenance Results * (ABNORMAL) BASIC METABOLIC PNL (05/31/2015 12:41 AM EDT) Glucose 101(H) 65 - 100 mg/dL 05/31/2015 1:52 AM EDT [facility] BUN 3(L) 8 - 25 mg/dL 05/31/2015 1:52 AM T [facility] Creatinine 0.75 0.70 - 1.40 mg/dL 05/31/2015 1:52 AM T [facility] Sodium 135 132 - 148 mmol/L 05/31/2015 1:52 AM T [facility] Potassium 4.3 3.5 - 5.0 mmol/L 05/31/2015 1:52 AM T [facility] Chloride 100 98 - 110 mmol/L 05/31/2015 1:52 AM T [facility] CO2 24 23 - 32 mmol/L 05/31/2015 1:52 AM [facility] Anion Gap 11 0 - 15 mmol/L 05/31/2015 1:52 AM T [facility] Calcium 8.6 8.5 - 10.5 mg/dL 05/31/2015 1:52 AM T [facility] eGFR- >60 05/31/2015 1:52 AM T [facility] eGFR-All Other Races >60 [...] Marcial Escobar (Hist) Lin LABORATORY Final Result [facility] [address] [place] [address] * (ABNORMAL) LIPID PANEL BASIC (05/16/2015 10:42 AM EDT) Triglyceride 118 30 - 149 mg/dL 05/16/2015 6:55 PM EDT [facility] Cholesterol, Total 142 100 - 199 mg/dL 05/16/2015 6:55 PM EDT [facility] HDL Cholesterol 65 >55 mg/dL 5 6:55 PM EDT [facility] VLDL Cholesterol 24 6 - 40 mg/dL 05/16/2015 6:55 PM EDT [facility] LDL Cholesterol, Calculated 53(L) 60 - 129 mg/dL 05/16/2015 6:55 PM EDT [facility] Fasting Time Unknown hrs 05/16/2015 2:56 PM EDT [facility] TC:HDL Ratio 2.18 1.00 - 5.00 05/16/2015 6:55 PM EDT [facility] LDL:HDL Ratio 0.82 0.50 - 3.55 05/16/2015 6:55 PM EDT [facility] Non HDL Cholesterol 77(L) 90 - 159 mg/dL 05/16/2015 6:55 PM EDT [facility] Blood specimen (specimen) BLOOD SPECIMEN / Unknown 05/16/2015 10:42 AM EDT 05/16/2015 10:46 AM EDT us Warner Conde MD LABORATORY Final Result [facility] [address] [place] [address] from Last 3 Months or Most Recently Relevant to Health Maintenance Insurance MEDICARE MEDICAID [place]
--- OUTSIDE RECORDS SUMMARY | 2025-04-22 16:20 | XMS_ITS | Encounter Summary ---
Author Organization [facility] Address [address] [place] [address] Phone Care Team Providers Care Seam Rubbing Machine Operator Name Role Phone Generic Provider, No Assigned Pcp Primary Car e Provider Unavailable Diane Min RN Unavailable Unavailable June Preston MD Unavailable Conchita Aden MD Primary Care Provider [phone] Diane Min RN Unavailable Unavailable Earlene Eubanks RN Unavailable Encounter Details Date Type Department Care Team (Late st Contact Info) Description 11/02/2024 Scanned Document [facility] [address] [place] [address] Scanning, Generic Provider Social History [...] place to sleep or slept in a halfway (including now)? No 02/16/2024 Housing Stability Vital [...] were you homeless or living in a halfway (including now)? No 09/01/2024 Comments No Sex and Gender Information Value Date Recorded Sex Assigned at Not on file Legal Sex Female 10:34 AM EST Gender Identity Not on file Sexual Orientation Not on file documented as of this encounter Plan of Treatment Upcoming Encounters Date Type Department Care Team (Late st Contact Info) Description 05/17/2025 3:30 PM EDT Office Visit [facility] [address] [facility] [address] [place] [address] Kervin Fair MD [address] [facility] Medical Office [facility], [address] [place] [address] 07/14/2025 1:00 PM EDT Office Visit [facility] [address] [facility] [address] [place] [address] Oscar Rodriguez MD 3 [facility] 2, [address] [place] [address] 09/26/2025 12:20 PM EST Appointment [facility] [address] [place] [address] 09/26/2025 1:00 PM EST Office Visit [facility] [address] [facility] [address] [place] [address] June Preston MD [address] [facility] Office [facility], [facility] [address] [place], [place] [phone] documented as of this encounter Visit Diagnoses [...] documented as of this encounter Care Teams Seam Rubbing Machine Operator Relationship Specialty Start Date End Date Generic Provider, No Assigned Pcp, [place] [address] PCP - General Superintendent Electric Power 08/08/24 11/10/24 Conchita Aden MD [address] [place] [address] [place] [address] PCP - General Family Medicine 11/11/24 Diane Min, school health assistantGrocery Team Member 09/05/24 12/06/24 June Preston MD [address] [facility] Office [facility], [address] [address] Slot Machine Mechanic Electrophysiology 09/13/24 Diane Min, school health assistantGrocery Team Member 01/16/25 01/31/25 Earlene Eubanks, RN Java Programming ProfessorGrocery Team Member 04/17/25 documented as of this encounter
--- OUTSIDE RECORDS SUMMARY | 2025-04-22 16:20 | XMS_ITS | Encounter Summary ---
Author Organization [facility] Address [address] [place] [address] Phone Care Team Providers Care Communication Manager Name Role Phone Tremaine West DO Primary Care Provider Ania Brothers CUSTOMER COUNTER ASSOCIATE-RISK AND INSURANCE MANAGER Unavailable Unavailable June Preston MD Unavailable Sol Keita FIGURE CLERK Unavailable June Preston MD Unavailable Oscar Rodriguez MD Unavailable [phone] Generic Provider, No Assigned Pcp Primary Car e Provider Unavailable Diane Min RN Unavailable Unavailable June Preston MD Unavailable Conchita Aden MD Primary Care Provider [phone] Diane Min RN Unavailable Unavailable Earlene Eubanks RN Unavailable Encounter Details Date Type Department Care Team (Late st Contact Info) Description 07/27/2023 Scanned Document [facility] [address] [place] [address] Conversion, Onbase Social History Tobacco Use Types [...] Description 05/17/2025 3:30 PM EDT Office Visit [facility] [address] [place] [address] Kervin Fair MD [address] [facility] Medical Office [address]ld[address], [address] [place] [address] 07/14/2025 1:00 PM EDT Office Visit [facility] [address] [place] [address] Oscar Rodriguez MD [address] 2, [address] [place] [address] 09/26/2025 12:20 PM EST Appointment [facility] [address] [place] [address] 09/26/2025 1:00 PM EST Office Visit [facility] [address] [facility] [address] [place] [address] June Preston MD [address] [facility] Office Bldg, [address] [place] [address] documented as of this encounter Procedures Procedure [...] documented as of this encounter Care Teams Communication Manager Relationship Specialty Start Date End Date Tremaine West DO [address] [address] PCP - General 01/22/22 11/05/23 Generic Provider, No Assigned Pcp, [place] [address] PCP - General Short Piece Handler 08/08/24 11/10/24 Conchita Aden MD [address] [place] [address] PCP - General Family Medicine 11/11/24 Ania Brothers, CUSTOMER COUNTER ASSOCIATE-RISK AND INSURANCE MANAGER [address] [address] Nurse Practitioner Cardiology 09/30/23 02/16/24 June Preston MD [address] [address] Partnership Marketing Manager Cardiology 09/30/23 02/16/24 Sol Keita, FIGURE CLERK Infusion PharmacistCake Cutter Machine 02/19/24 05/17/24 June Preston MD [address] [facility], [address] [place] [address] Consulting Physician Cardiology 02/19/24 02/29/24 Oscar Rodriguez MD 703 [facility] 2, [address] [place] [address] Consulting Physician Cardiology 02/19/24 02/29/24 Diane Min, manager storeCake Cutter Machine 09/05/24 12/06/24 June Preston MD [address] [facility], [address] [place] [address] Partnership Marketing Manager Electrophysiology 09/13/24 Diane Min, manager storeCake Cutter Machine 01/16/25 01/31/25 Earlene Eubanks, PAULA Infusion PharmacistCake Cutter Machine 04/17/25 documented as of this encounter
--- OUTSIDE RECORDS SUMMARY | 2025-04-22 16:20 | XMS_ITS | Encounter Summary ---
Author Organization [facility] Address [address] [place] [address] Phone Care Team Providers Care Hydrogen Operator Name Role Phone Tremaine West DO Primary Care Provider Ania Brothers NATURAL SCIENCES MANAGER-V BLOCK SAW OPERATOR Unavailable Unavailable June Preston MD Unavailable Sol Keita HOUSEMAN Unavailable June Preston MD Unavailable Oscar Rodriguez MD Unavailable [phone] Generic Provider, No Assigned Pcp Primary Car e Provider Unavailable Diane Min RN Unavailable Unavailable June Preston MD Unavailable Conchita Aden MD Primary Care Provider [phone] Diane Min RN Unavailable Unavailable Earlene Eubanks RN Unavailable Encounter Details Date Type Department Care Team (Late st Contact Info) Description 07/23/2023 Scanned Document [facility] [address] [place] [address] Conversion, Onbase Social History Tobacco Use Types [...] Description 05/17/2025 3:30 PM EDT Office Visit [facility] [address] [facility] [address] [place] [address] Kervin Fair MD [address] [facility] Office Bldg, [address] [place] [address] 07/14/2025 1:00 PM EDT Office [facility] [address] [facility] [address] [place] [address] Oscar Rodriguez MD [facility], [address] [place] [address] 09/26/2025 12:20 PM EST Appointment [facility] [address] [place] [facility] [address] 09/26/2025 1:00 PM EST Office Visit [facility] [address] [facility] [address] [place] [address] June Preston MD [address] [facility] Office Bldg, [address] [place] [address] documented as of this encounter Procedures Procedure [...] documented as of this encounter Care Teams Hydrogen Operator Relationship Specialty Start Date End Date Tremaine West DO [address], DO [address] [place] [address] PCP - General 01/22/22 11/05/23 Generic Provider, No Assigned Pcp, [place] [address] PCP - General Urban Renewal Manager 08/08/24 11/10/24 Conchita Aden MD [address] [place] [address] [place] [address] PCP - General Family Medicine 11/11/24 Ania Brothers, NATURAL SCIENCES MANAGER-V BLOCK SAW OPERATOR [address], [facility] [address] [place] [address] Nurse Practitioner Cardiology 09/30/23 02/16/24 June Preston MD [address] [facility] Tremaine West, [facility] [address] [place] [address] Power Generation Equipment Repairer Cardiology 09/30/23 02/16/24 Sol Keita, HOUSEMAN Scaling Machine OperatorFinishing Inspector 02/19/24 05/17/24 June Preston MD [address] [facility], [address] [place] [address] Consulting Physician Cardiology 02/19/24 02/29/24 Oscar Rodriguez MD [address] [place] [address] 2, [address] [place] [address] Consulting Physician Cardiology 02/19/24 02/29/24 Diane Min, telephone surveyorFinishing Inspector 09/05/24 12/06/24 June Preston MD 125 [address] [facility], [address] [place] [address] Power Generation Equipment Repairer Electrophysiology 09/13/24 Diane Min, telephone surveyorFinishing Inspector 01/16/25 01/31/25 Earlene Eubanks, PAULA Scaling Machine OperatorFinishing Inspector 04/17/25 documented as of this encounter
--- OUTSIDE RECORDS SUMMARY | 2025-04-22 16:20 | XMS_ITS | Encounter Summary ---
Author Organization [facility] Address [address] [place] [address] Phone Care Team Providers Care Digital Account Director Name Role Phone Generic Provider, No Assigned Pcp Primary Car e Provider Unavailable Diane Min RN Unavailable Unavailable June Preston MD Unavailable Conchita Aden MD Primary Care Provider [phone] Diane Min RN Unavailable Unavailable Earlene Eubanks RN Unavailable Encounter Details Date Type Department Care Team (Late st Contact Info) Description 11/05/2024 Scanned Document [facility] [address] [place] [place] [address] Scanning, Generic Provider Social History [...] any time in the past 12 m [facility], were you homeless or living in a senior care (including now)? No 09/01/2024 Comments No Sex and Gender Information Value Date Recorded Sex Assigned at Not on file Legal Sex Female 10:34 AM EST Gender Identity Not on file Sexual Orientation Not on file documented as of this encounter Plan of Treatment Upcoming Encounters Date Type Department Care Team (Late st Contact Info) Description 05/17/2025 3:30 PM EDT Office Visit [facility] [address] [facility] [address] [place] [address] Kervin Fair MD [address] [facility] Medical Office [facility], [address] [place] [address] 07/14/2025 1:00 PM EDT Office Visit [facility] 703 [facility] [address] [place] [address] Oscar Rodriguez MD 3 [facility] 2, [address] [place] [address] 09/26/2025 12:20 PM EST Appointment [facility] [address] [place] [address] 09/26/2025 1:00 PM EST Office Visit [facility] [address] [facility] [address] [place] [address] June Preston MD [address] [facility] Office [facility], [facility] [address] [place], [place] [address] documented as of this encounter Visit Diagnoses [...] documented as of this encounter Care Teams Digital Account Director Relationship Specialty Start Date End Date Generic Provider, No Assigned Pcp, [place] [address] PCP - General Bench Worker Binding 08/08/24 11/10/24 Conchita Aden MD [address] [place] [address] [place] [address] PCP - General Family Medicine 11/11/24 Diane Min, x ray service engineerAdministrative Nursing Supervisor 09/05/24 12/06/24 June Preston MD [address] [facility] Office [facility], [address] [address] Sole Molding Machine Operator Electrophysiology 09/13/24 Diane Min, x ray service engineerAdministrative Nursing Supervisor 01/16/25 01/31/25 Earlene Eubanks, RN Library SpecialistAdministrative Nursing Supervisor 04/17/25 documented as of this encounter
--- OUTSIDE RECORDS SUMMARY | 2025-04-22 16:20 | XMS_ITS | Encounter Summary ---
Author Organization [facility] Address [address] [place] [address] Phone Care Team Providers Care Wafer Polishing Worker Name Role Phone Generic Provider, No Assigned Pcp Primary Car e Provider Unavailable Diane Min RN Unavailable Unavailable June Preston MD Unavailable Conchita Aden MD Primary Care Provider [phone] Diane Min RN Unavailable Unavailable Earlene Eubanks RN Unavailable Encounter Details Date Type Department Care Team (Late st Contact Info) Description 10/30/2024 Scanned Document [facility] [address] [place] [address] Scanning, Generic Provider Social History [...] any time in the past 12 m [facility], were you homeless or living in a [...] Description 05/17/2025 3:30 PM EDT Office Visit [facility] [address] [facility] [address] [place] [address] Kervin Fair MD [address] [facility] Medical Office [facility], [address] [place] [address] 07/14/2025 1:00 PM EDT Office Visit [facility] 703 [facility] [address] [place] [address] Oscar Rodriguez MD 3 [facility] 2, [address] [place] [address] 09/26/2025 12:[address] [facility] [address] [place] [address] 09/26/2025 1:00 PM EST Office Visit [facility] [address] [place] [address] June Preston MD [address] [facility] Medical Office Bldg, [address] [place] [address] documented as of this encounter Procedures Procedure [...] as of this encounter Care Teams Wafer Polishing Worker Relationship Specialty Start Date End Date Generic Provider, No [place] [address] PCP - General Amf Mechanic 08/08/24 11/10/24 Conchita Aden MD [address] [place] [address] [place] [address] PCP - General Family Medicine 11/11/24 Diane Min, shipping and receivingSwiss Type Screw Machine Operator 09/05/24 12/06/24 June Preston MD 125 [address] [facility], [address] [address] Divine Healer Electrophysiology 09/13/24 Diane Min, shipping and receivingSwiss Type Screw Machine Operator 01/16/25 01/31/25 Earlene Eubanks, PAULA Phy TherapistSwiss Type Screw Machine Operator 04/17/25 documented as of this encounter
--- OUTSIDE RECORDS SUMMARY | 2025-04-22 16:20 | XMS_ITS | Patient Health Record ---
Author Organization [facility] Address [address] [place] [address] Care Team Providers Care Cable Splicer Assistant Name Role Phone Darcie Garcia Primary Care Provider Janna Jackson Unavailable [phone] Nicole Benson Unavailable [phone] Wilson Isabel Unavailable [phone] Abdiel Kennedy Unavailable [phone] Emmanuel Stratton Unavailable [phone] Allergies No Known Allergies Reason For Referral [...] ETOH. Denies illegal drug use. Lives with sister and 2 niec es. 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) Active confirmed Problem 968251575 Other intervertebral disc degeneration, lumbar region (M51.36) Active confirmed Problem 08131173 Urge incontinenc e (N39.41) Active confirmed Problem 40158725 Anxiety (F41.9) Active confirmed Problem 286075329 Bipolar 1 disord er (F31.9) Active confirmed Problem 393722129000641 Obesity (BMI 30.0-34.9) (E66.9) Active confirmed Problem 12512731 Paresthesias (R20.2) Active confirmed Problem 92457313 Chronic obstruct vesna pulmonary disease, unspecified COPD type (J44.9) Active confirmed Problem 324327102 Gastroesophageal reflux disease without esophagitis (K21.9) Active confirmed Problem 80094708 Atrial fibrillation, unspecified type (I48.91) Active confirmed Problem 88154312 Oral thrush (B37.0) Active confirmed Problem 78051447 Hypertension, unspecified type (I10) Active confirmed Problem 260891773 Moderate persist ent asthma, unspecified whether complicated (J45.40) Active confirmed Problem Body mass index 30+ - obesity (071695497) BMI 30.0-30.9,adult (Z68.30) Active confirmed Problem 14417666 Type 2 diabetes mellitus with diabetic polyneuropathy, unspecified whether terminologist insulin use (E11.42) Active confirmed Problem 46251150 Oropharyngeal dysphagia (R13.12) Active confirmed Problem Mixed bipolar affective disorder, moderate (641412995) Bipolar mixed affective disorder, moderate (F31.62) Active confirmed Problem 27065649 Anticoagulated o n Coumadin (Z79.01) Active confirmed Problem 36668953 Coronary artery disease of [place] heart with stable angina pectoris, unspecified vessel [...] 09/07/2024 Encounters Encounter Location Date Provider Diagnosis [facility] [address] [place] [address] 04/27/2024 Darcie Garcia [facility] [address] [place] [address] 06/01/2024 Darcie Garcia Urge incontinence N3 9.41 [facility] [address] [place] [address] 06/03/2024 Darcie Garcia [place] [address] [place] [address] 06/14/2024 Darcie Garcia [address] [place] [place] [address] 07/11/2024 Darcie Garcia Restless legs syndro me G25.81 [address] [place] [address] 07/18/2024 Darcie Garcia [address] [place] [address] 08/05/2024 Darcie Garcia [address] [place] [address] 08/11/2024 Darcie Garcia Gastroesophageal ref lux disease without esophagitis K21.9 [address] [place] [address] 08/16/2024 Darcie Garcia Type 2 diabetes norah itus with diabetic polyneuropathy, unspecified whether mcfp insulin use E11.42 [address] [place] [address] 08/29/2024 Darcie Garcia Restless legs syndro me G25.81 [address] [place] [address] 11/28/2024 Darcie Garcia Hypertension, unspecified type I10 [address] [place] [address] 06/21/2024 Emmanuel Stratton Restless legs syndro me G25.81 [address] [place] [address] 06/29/2024 Darcie Garcia Restless legs syndro me G25.81 ; Hip pain, right M25.551 and Urge incontinence N39.41 [address] [place] [address] 08/12/2024 Darcie Garcia Strain of neck muscl e, initial encounter S16.1XXA ; Changes in vision H53.9 ; Dizziness R42 and Paresthesias R20.2 [address] [place] [address] 06/13/2024 Darcie Garcia Hip pain, right M25. 551 and Pneumonia of both lower lobes due to infectious organism J18.9 [facility] [address] [place] [address] 09/07/2024 Nicole Benson Bipolar mixed affect vesna disorder, moderate F31.62 [facility] [address] [place] [address] 07/13/2024 Nicole Benson Bipolar mixed affect vesna [...] diabetes mellitus with diabetic polyneuropathy, unspecified whether mcfp insulin use (ICD-10 - E11.42) 08/29/2024 Restless [...] Care Instructions material was printed 06/21/2024 Other [facility] sent as mistake, called pharmacy [...] in the left eye.- Consult with an learning specialist in the next 24 hours if possible [...] Date ANTHEM MEDIBLUE DUAL-ELIGB LE [address] [place] [phone] [id number] [facility] K[facility] Self - patient is the insured 3 B MEDICAID SEC TO [employer] ADV [address] [place] [address] [id number] KING MORENO Self - patient is the insured 1 MEDICARE CGS [address] [place] [address] [id number] KING MORENO Self - patient is the [...]
--- OUTSIDE RECORDS SUMMARY | 2025-04-22 16:21 | XMS_ITS | Clinical Summary ---
Author Organization [facility] Address [address] [place] [address] Phone Care Team Providers Care Director Vaccine Name Role Phone June Preston MD Unavailable Conchita Aden MD Primary Care Provider [phone] Earlene Eubanks RN Unavailable Allergies No known active allergies Medications lansoprazole (Prevacid) [address] capsule Take 1 capsule (30 mg) by mouth once daily. Active meclizine (Antivert) 25 mg tablet Take 1 tablet (25 mg) by mouth 2 times a day. Active oxybutynin XL (Ditropan-XL) 10 mg 24 hr tablet Take 1 tablet (10 mg) by mouth once daily. 03/17/20 23 Active QUEtiapine (SEROquel) 200 mg tablet Take 1 tablet (200 mg) by mouth once daily at bedtime. 06/27/20 23 Active magnesium oxide (Mag-Ox) 400 mg (241.3 mg magnesium) tablet Take 1 tablet by mouth 2 times a day. 07/28/20 23 Active melatonin 5 mg tablet Take 1 tablet (5 mg) by mouth once daily at bedtime. Active lisinopril 2.5 mg tabletIndications: Essential hypertension Take 1 tablet (2.5 mg) by mouth once daily. Take in the evening 90 tablet 3 09/27/20 24 025 Active rivaroxaban (Xarelto) 10 mg tabletIndications: Ventricular tachycardia (Multi),Pulmonary embolism, unspecified chronicity, unspecified pulmonary embolism type, unspecified whether acute cor pulmonale present (Multi),High risk medication use Take 1 tablet (10 mg) by mouth once daily. 90 tablet 3 11/11/19 25 Active aspirin 81 mg EC tabletIndications: Atherosclerosis of burns paiute coronary artery of burns pai[place] heart without angina pectoris Take 1 tablet (81 mg) by mouth 2 times a week. 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 90 tablet 3 11/11/19 25 026 Active spironolactone (Aldactone) 25 mg tabletIndications: Essential hypertension Take 1 tablet (25 mg) by mouth once daily. 90 tablet 3 11/15/19 25 Active Invokana 300 mgIndications:Type 2 diabetes mellitus without complication, without long-term current use of insulin,Atheroscle rosis of burns paiute coronary artery of burns pa[place] heart without angina pectoris,Chronic systolic CHF (congestive heart failure) Take 1 tablet (300 mg) by mouth once daily in the morning. Take before meals. 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 180 tablet 3 12/20/19 25 026 Active albuterol 90 mcg/actuation inhalerIndications :ICD (implantable cardioverter-defib rillator) discharge Inhale 2 puffs every 6 hours if needed for wheezing. 18 g 11 01/14/20 25 Active benzocaine-menthol (Cepastat Sore Throat) lozengeIndications :ICD (implantable cardioverter-defib rillator) discharge Dissolve 1 lozenge in the mouth every 2 hours if needed for sore throat. 40 lozenge 01/14/20 25 Active loperamide (Imodium) 2 mg capsuleIndications :ICD (implantable cardioverter-defib rillator) discharge Take 1 capsule (2 mg) by mouth 4 times a day as needed for diarrhea. 30 capsule 01/14/20 25 Active Additional Information Patient not taking.Informant: Self, Reported on 04/15/2025 metoprolol succinate XL (Toprol-XL) 25 mg 24 hr tabletIndications: VT (ventricular tachycardia) (Multi) Take 2 tablets (50 mg) by mouth once daily. 60 tablet 11 01/14/20 25 026 Active amiodarone (Pacerone) 200 mg tabletIndications: Paroxysmal ventricular tachycardia Take 1 tablet (200 mg) by mouth once daily. Do not fill before January 28, 2025. 90 tablet 1 01/29/20 25 026 Active ascorbic acid (Vitamin C) 500 mg chewable tablet Chew 1 tablet (500 mg) once daily. 03/30/20 25 Active ferrous sulfate 324 mg (65 mg elemental iron) EC tablet (delayed release) Take 1 tablet (65 mg) by mouth every other day. 03/30/20 25 Active rOPINIRole (Requip) 1 mg tablet Take 1 tablet (1 mg) by mouth 3 times a day. 02/09/20 25 Active mexiletine (Mexitil) 150 mg capsuleIndications :Ventricular tachycardia (Multi) Take 1 capsule (150 mg) by mouth every 8 hours. 90 capsule 5 09/02/20 24 025 Discontin ued(Stop Taking at Discharge ) pantoprazole (ProtoNix) 40 mg EC tabletIndications: ICD (implantable cardioverter-defib rillator) discharge Take 1 tablet (40 mg) by mouth early in the morning.. Do not crush, chew, or split. 30 tablet 01/15/20 025 Discontin ued(Stop Taking at Discharge ) Active Problems Problem Noted Date Diagnosed Date VT (ventricular tachycardia) (Multi) 04/14/2025 ICD (implantable cardioverter-defibrillator) dis charge 01/08/2025 BMI 28.0-28.9,adult 09/27/2024 Paroxysmal ventricular tachycardia 08/24/2024 Ventricular tachycardia 02/08/2024 ICD (implantable cardioverter-defibrillator) in place 11/06/2023 Cardiomyopathy, ischemic 11/06/2023 Acquired spondylolisthesis 09/30/2023 Bipolar 1 disorder (Multi) 09/30/2023 Degeneration of lumbar intervertebral disc 09/30 Mixed bipolar affective disorder, moderate (Mult i) 09/30/2023 Moderate persistent asthma without complication (HHS-HCC) 09/30/2023 Oral thrush 09/30/2023 Oropharyngeal dysphagia 09/30/2023 Polyneuropathy due to type 2 diabetes mellitus ( Multi) 09/30/2023 Stable angina pectoris due t o arteriosclerosis of coronary artery 09/30/2023 Urge incontinence of urine 09/30/2023 Atherosclerosis of burns pai[place] co ronary artery of burns paiute heart without angina pectoris 07/29/2023 Chronic obstructive [...] bowel function Postoperative pain 05/23/2015 Overview (09/30/2023): 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 pump and will transition to oral medication [...] Encounters Date Type Department Care Team Description 04/18/2025 Patient Outreach [facility] [address] [place] [address] Earlene Eubanks, PAULA 04/17/2025 Telephone [facility] [address] [place] [address] Erika De La Cruz RN 04/14/2025 1:09 PM EDT Anesthesia Event [facility] [address] [place] [address] Joyce Adan MD Sexton, Hannah, RN 04/14/2025 11:00 AM EDT - 04/14/2025 3:00 PM EDT Surgery [facility] [address] [place] [address] [place] [[address] (CPT )] 04/14/2025 9:10 AM EDT - 04/15/2025 1:15 PM EDT Hospital Encounter [facility] [place] [address] [place] [address] Kervin Deshpande MD ICD (implantable cardioverter-defibril lator) in place (Primary Dx); Ventricular tachycardia (Multi) Discharge Disposition: Home 04/14/2025 Travel 04/03/2025 1:00 PM EDT - 04/03/2025 11:59 PM EDT Hospital Encounter [facility] [address] [place] [address] Ventricular tachycardia (CMS/HCC); Abnormal result of cardiovascular function study, unspecified Discharge Disposition: Home 04/03/2025 Travel 03/09/2025 9:35 AM EDT - 03/09/2025 11:59 PM EDT Hospital Encounter [facility] [address] [place] [address] ICD (implantable cardioverter-defibril lator) in place; Paroxysmal ventricular tachycardia Discharge Disposition: Home 02/21/2025 Orders Only [facility] [address] [place] [address] Kervin Deshpande MD Chronic systolic CHF (congestive heart failure) (Primary Dx) 02/10/2025 Scanned Document [facility] [address] [place] [address] Scanning, Generic Provider 02/07/2025 11:30 AM EDT Office Visit [facility] [address] [facility] [address] [place] [address] Kervin Deshpande MD Ventricular tachycardia (Multi); ICD (implantable cardioverter-defibril lator) in place 02/07/2025 Travel 01/24/2025 Refill [facility] [address] [facility] [address] [place] [address] 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 Never 01/08/2025 [employer] Answer Date Recorded In the past 12 months has e [employer], oil, or water [employer] threatened to shut off services in your [...] week 01/08/2025 How often do you attend oriental orthodox or baptism serv ices? Patient declined 01/08/2025 Do you belong to any clubs o r organizations such as oriental orthodox groups, unions, fraternal or athletic groups, or [...] Recorded Patient Health Questionnaire-2 Score 0 04/14/2025 [facility] - Occupational [...] any time in the past 12 m [facility], were you homeless or living in a alf (including now)? No 04/14/2025 Comments No Sex [...] Mass Index 28.95 04/14/2025 7:27 PM EDT Plan of Treatment Upcoming Encounters Date Type Department Care Team (Late st Contact Info) Description 05/17/2025 3:30 PM EDT Office Visit [facility] [address] [facility] [address] [place] [address] Kervin Deshpande MD [address] [facility] [address] [place] [address] 07/14/2025 1:00 PM EDT Office Visit [facility] [address] [facility] [address] [place] [address] Oscar Rodriguez MD [address] [facility] [address] [place] [address] 09/26/2025 12:20 PM EST Appointment [facility] [address] [facility] [place] [address] 09/26/2025 1:00 PM EST Office Visit [facility] [address] [facility] [address] [place] [address] June Preston MD [address] [facility] Office [facility] [place] [address] Health Maintenance Due Date Last Done Comments [...] 01/08/2026 01/08/2025, 01/31, 07/24/2023 Echocardiogram 01/09/2026 01/09/2025, 07/2024, 07/22/2023, Additional history exists Creatinine Level [...] this topic Medical Devices Implanted Type Area Paradi Operator Device Identifier Shelf Expiration Date Model [...] TIME HIGH Routine 04/14/2025 3:20 PM EDT KS AN ELECTIVE ENDOTRACHEAL AIRWAY Routine 04/14/2025 2:44 PM EDT CARDIAC DEVICE CHECK - ICD - PRE Routine 04/14/2025 2:20 PM EDT Ventricular tachycardia (Multi) ICD (implantable cardioverter-defibri llator) in place ANESTHESIA ARTERIAL LINE PLACEMENT Routine 04/14/2025 1:54 PM EDT POCT GLUCOSE Routine 04/14/2025 9:57 AM EDT PATH REVIEW-IMMUNOHEMATOL OGY STAT 04/14/2025 9:50 AM EDT BB ORDER ONLY - ANTIBODY IDENTIFICATION STAT 04/14/2025 9:50 AM EDT TYPE AND SCREEN STAT 04/14/2025 9:50 AM EDT VERAB/VERIFY ABORH STAT 04/14/2025 9: [address] HEART STRUCTURE MORPHOLOGY W IV CONTRAST [...] (Multi) ICD (implantable cardioverter-defibri llator) in place BASIC METABOLIC PANEL Pending Discharge 01/13/2025 5:23 AM EDT TRANSTHORACIC ECHO (TTE) COMPLETE WITH CONTRAST STAT 01/09/2025 11:15 AM EDT Paroxysmal ventricular tachycardia (Multi) HEMOGLOBIN A1C Add-On 01/08/2025 7:21 PM EDT TSH WITH REFLEX TO FREE T4 IF ABNORMAL Add-On 01/08/2025 7:21 PM EDT from Last 3 Months or Most Recently Relevant to Health Maintenance Results * Electrocardiogram - Post Ablation (04/14/2025 10:35 PM EDT) Only the most recent of3 resultswithin the time period is included. Ventricular Rate 80 BPM MUSE Atrial Rate 80 BPM MUSE KS Interval 144 ms MUSE QRS Duration 112 ms MUSE QT Interval 424 ms MUSE QTC Calculation(Baze tt) 489 ms MUSE P [place] 55 degrees MUSE R [place] 10 degrees MUSE T [place] 55 degrees MUSE QRS Count 13 beats [...] Yosef Toure ([id number]) on 04/21/2025 6:14:55 PM Mckenzie Layne MD ECG ORDERABLES Final Result MUSE * ABLATION VT (04/14/2025 6:08 PM EDT) Narrative [email or web address] - 04/17/2025 10:31 AM EDT Images from the original result were not included. Radiofrequency catheter ablation with substrate modification targeting a large basal to mid inferolateral left ventricular scar, with only polymorphic VT inducible at the end of the procedure. Ventricular Tachycardia Ablation Procedures VT Ablation (49809), 3D Mapping (53168), His Bundle Recording (65147), Ultrasound Guided vascular access (66404), Intracardiac Echocardiogram (03894) Direct current cardioversion (43905) Patient history: Please refer to the detailed [...] SVC. The wire was removed and the Farwell needle was advanced into the sheath. The Vizigo with the Farwell needle were dragged from the SVC along the septum until engagement of the Fossa Ovalis was confirmed by interatrial tenting seen under intracardiac ultrasound guidance. The Farwell needle was advanced into the left atrium [...] immediately available during the non-critical portions. Kervin Deshpande MD CV ELECTROPHYSIOLOGY PROCEDURES Final Result Performing Organization Address [facility]/ZIP Co de Phone Number [email or web address] * (ABNORMAL) ACTIVATED CLOTTING TIME HIGH (04/14/2025 5:17 PM EDT) [facility] High Range 353(H) 82 - 174 sec 04/14/2025 5:24 PM EDT [facility] Comment: Target ACT range will vary based on the patient population, clinical status, and surgical intervention occurring. Blood Venous blood specimen / Unknown 04/14/2025 5:17 PM EDT 04/14/2025 5:24 PM EDT Kervin Deshpande MD LAB POINT OF CARE TE ST DOCKED DEVICE UNSOLICITED RESULTS Final Result Performing Organization Address City/[facility]/ZIP Co de Phone Number [facility] [address] [place] [address] * (ABNORMAL) ACTIVATED CLOTTING TIME HIGH (04/14/2025 4:35 PM EDT) [facility] POCT Activated Clotting Time High Range 380(H) 82 - 174 sec 04/14/2025 4:42 PM EDT [facility] Comment: Target ACT range will vary based on the patient population, clinical status, and surgical intervention occurring. Blood Venous blood specimen / Unknown 04/14/2025 4:35 PM EDT 04/14/2025 4:42 PM EDT Result Rhonda Deshpande MD LAB POINT OF CARE TE ST DOCKED DEVICE UNSOLICITED RESULTS Final Result Performing Organization Address [facility] Co de Phone Number [facility] [id number] [place] [phone] * (ABNORMAL) ACTIVATED CLOTTING TIME HIGH (04/14/2025 4:12 PM EDT) POCT Activated Clotting Time High Range 274(H) 82 - 174 sec 04/14/2025 4:18 PM EDT [facility] Comment: Target ACT range will vary based on the patient population, clinical status, and surgical intervention occurring. Blood Venous blood specimen / Unknown 04/14/2025 4:12 PM EDT 04/14/2025 4:18 PM EDT us Krevin Deshpande MD LAB POINT OF CARE TE ST DOCKED DEVICE UNSOLICITED RESULTS Final Result Performing Organization Address [facility] de Phone Number [facility] [id number] [place] [phone] * (ABNORMAL) ACTIVATED CLOTTING TIME HIGH (04/14/2025 3:47 PM EDT) POCT Activated Clotting Time High Range 214(H) 82 - 174 sec 04/14/2025 3:52 PM EDT [facility] Comment: Target ACT range will vary based on the patient population, clinical status, and surgical intervention occurring. Blood Venous blood specimen / Unknown 04/14/2025 3:47 PM EDT 04/14/2025 3:52 PM EDT us Kervin Deshpande MD LAB POINT OF CARE TE ST DOCKED DEVICE UNSOLICITED RESULTS Final Result Performing Organization Address [facility] de Phone Number [facility] [id number] [place] [phone] * (ABNORMAL) ACTIVATED CLOTTING TIME HIGH (04/14/2025 3:20 PM EDT) POCT Activated Clotting Time High Range 214(H) 82 - 174 sec 04/14/2025 3:27 PM EDT [facility] Comment: Target ACT range will vary based on the patient population, clinical status, and surgical intervention occurring. Blood Venous blood specimen / Unknown 04/14/2025 3:20 PM EDT 04/14/2025 3:27 PM EDT us Kervin Deshpaned MD LAB POINT OF CARE TE ST DOCKED DEVICE UNSOLICITED RESULTS Final Result Performing Organization Address City/State/[facility] Co de Phone Number [facility] [address] [place] [phone] * KS AN ELECTIVE ENDOTRACHEAL AIRWAY (04/14/2025 2:44 PM EDT) Narrative Charlotte Vigil RN - 04/14/2025 2:44 PM EDT Charlotte [...] MD ANESTHESIA ORDERABLES Final Resu lt * CARDIAC DEVICE CHECK - ICD - PRE (04/14/2025 2:20 PM EDT) Anatomical Region Laterality Modality Echocardiography 04/14/2025 2:10 PM EDT Kervin Deshpande MD CV IMPLANTABLE CARDIAC DEVICE P ROCEDURES Final Result * ANESTHESIA ARTERIAL LINE PLACEMENT (04/14/2025 1:54 PM EDT) Narrative Charlotte Vigil RN - 04/14/2025 1:54 PM EDT Charlotte Vigil RN 04/14/2025 2:57 PM Arterial Line: Date/Time: 04/14/2025 1:54 PM Staffing Performed: 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 in the OR for the following indication(s): continuous blood pressure monitoring and blood sampling needed. A 20 gauge (size), 1 and 3/4 inch (length), Angiocath (type) catheter was placed into the Right radial artery, secured by Tegaderm Seldinger technique used. Events: patient tolerated procedure well with no complications. Emory Garcia MD ANESTHESIA ORDERABLES Final Resu lt * (ABNORMAL) POCT GLUCOSE (04/14/2025 9:57 AM EDT) [facility] POCT Glucose 113(H) 74 - 99 mg/dL 04/14/2025 9:59 AM EDT [facility] Blood Capillary blood specimen / Unknown 04/14/2025 9:57 AM EDT 04/14/2025 9:59 AM EDT Kervin Deshpande MD LAB POINT OF CARE TE ST DOCKED DEVICE UNSOLICITED RESULTS Final Result [facility] [id number] [place], [place] [phone] * Path Review-Immunohematology (04/14/2025 9:50 AM EDT) [facility] PATH REV-IMMUNOHEMA TOLOGY Antibody detection screen is [...] for this patient. 04/17/2025 5:28 PM EDT [facility] Comment: . By the signature on this report, the individual or group listed as making the Final Interpretation/Diagnosis certifies that they have reviewed this case. Blood Venous blood specimen / Unknown Venipuncture / Unknown 04/14/2025 9:50 AM EDT 04/14/2025 10:04 AM EDT Kervin Deshpande MD LAB BLOOD BANK TEST ORDERABLES Final Result Performing Organization Address [facility] Co de Phone Number [facility] [address] [phone] * BB ORDER ONLY - Antibody Identification (04/14/2025 9:50 AM EDT) Antibody ID ANTI-LITTL E C 04/17/2025 11:57 AM EDT [facility] CASE # [id number] 04/17/2025 11:57 AM EDT [facility] Blood Venous blood specimen / Unknown Venipuncture / Unknown 04/14/2025 9:50 AM EDT 04/14/2025 10:04 AM EDT Narrative [facility] - 04/17/2025 11:57 AM EDT ANTI-E ANTIBODY COULD NOT BE RULED OUT AT THIS TIME. Kervin Deshpande MD LAB BLOOD BANK TEST ORDERABLES Final Result Performing Organization Address [facility] Co de Phone Number [facility] [address] [place] [address] * Type And Screen (04/14/2025 9:50 AM EDT) ABO TYPE A 04/14/2025 11:29 AM EDT [facility] Rh TYPE POS 04/14/2025 11:29 AM EDT [facility] ANTIBODY SCREEN POS 11:29 AM EDT [facility] Blood Venous blood specimen / Unknown Venipuncture / Unknown 04/14/2025 9:50 AM EDT 04/14/2025 10:04 AM EDT Kervin Deshpande MD LAB BLOOD BANK TEST ORDERABLES Final Result Performing Organization Address City/[facility]/ZIP Co de Phone Number [facility] [address] [place] [address] * VERIFY ABO/Rh Group Test (04/14/2025 9:45 AM EDT) ABO TYPE A 04/14/2025 11:55 AM EDT [facility] Rh TYPE POS 04/14/2025 11:55 AM EDT [facility] Blood Venous blood specimen / Unknown Venipuncture / Unknown 04/14/2025 9:45 AM EDT 04/14/2025 10:06 AM EDT Kervin Deshpande MD LAB BLOOD BANK TEST ORDERABLES Final Result Performing Organization Address City/[facility] Co de Phone Number [facility] [address] [place] [address] * CT heart structure morphology w IV [...] Anand Baugh 04/04/2025 1:16 AM Dictation workstation: [id number] Narrative 04/04/2025 1:16 AM EDT Interpreted By: Anand Baugh, and Brenda Bernabe STUDY: CT HEART STRUCTURE MORPHOLOGY W IV CONTRAST; 04/03/2025 1:36 pm INDICATION: Signs/Symptoms:For Ventricular Tachycardia ablation planning; late iodine enhancement CT scan; inHeart protocol; [place] [facility] COMPARISON: None. ACCESSION NUMBER(S): [id number] ORDERING CLINICIAN: KERVIN DESHPANDE TECHNIQUE: Using multi-detector [...] about 25-50% luminal stenosis which fills via [id number] collaterals. CARDIAC CHAMBERS: The cardiac chambers demonstrate [...] scan; inHeart protocol; [place] [facility] COMPARISON: None. ACCESSION NUMBER(S): [id number] ORDERING CLINICIAN: KERVIN DESHPANDE TECHNIQUE: Using multi-detector [...] about 25-50% luminal stenosis which fills via [id number] collaterals. CARDIAC CHAMBERS: The cardiac chambers demonstrate [...] Anand Baugh 04/04/2025 1:16 AM Dictation workstation: [id number] Kervin Deshpande MD IMG CT PROCEDURES Final Result * CARDIAC DEVICE CHECK - REMOTE - ICD (03/09/2025 9:38 AM EDT) Anatomical Region Laterality Modality Monitor/Device 03/09/2025 6:00 AM EDT us June Preston MD CV IMPLANTABLE CARDIAC DEVICE KS OCEDURES Final Result * Nuclear Stress Test [...] Provider Scanning OUTSIDE SCAN Final Result * (ABNORMAL) Basic Metabolic Panel (01/13/2025 5:23 AM EDT) [facility] Glucose 80 74 - 99 mg/dL LAB CHEMISTRY METHOD 01/13/2025 6:28 AM EDT [facility] Sodium 132(L) 136 - 145 mmol/L LAB CHEMISTRY METHOD 01/13/2025 6:28 AM [facility] Potassium 3.6 3.5 - 5.3 mmol/L LAB CHEMISTRY METHOD 01/13/2025 6:28 AM [facility] Chloride 99 98 - 107 mmol/L LAB CHEMISTRY METHOD 01/13/2025 6:28 AM [facility] Bicarbonate 27 21 - 32 mmol/L LAB CHEMISTRY METHOD 01/13/2025 6:28 AM [facility] Anion Gap 10 10 - 20 mmol/L LAB CHEMISTRY METHOD 01/13/2025 6:28 AM [facility] Urea Nitrogen 7 6 - 23 mg/dL LAB CHEMISTRY METHOD 01/13/2025 6:28 AM [facility] Creatinine 0.44(L) 0.50 - 1.05 mg/dL LAB CHEMISTRY METHOD 01/13/2025 6:28 AM [facility] eGFR >90 >60 mL/min/1. 73m*2 LAB CHEMISTRY METHOD 01/13/2025 6:28 AM [facility] Comment: Calculations of estimated GFR are performed using the 2020 CKD-EPI Study Refit equation without the race variable for the IDMS-Traceable creatinine methods. https://jasn.asnjournals.org/content//ASN.3456966386 Calcium 8.2(L) 8.6 - 10.3 mg/dL LAB CHEMISTRY METHOD 01/13/2025 6:28 AM EDT [facility] Blood Venous blood specimen / Unknown Venipuncture / Unknown 01/13/2025 5:23 AM EDT 01/13/2025 5:54 AM EDT us Gayle Max MD LAB BLOOD ORDERABLES Fin al Result [facility] [address] [place] [id number] * TRANSTHORACIC ECHO (TTE) COMPLETE WITH CONTRAST [...] Narrative SYNGO - 01/10/2025 8:51 AM EDT [place] [address] TRANSTHORACIC ECHOCARDIOGRAM REPORT Patient Name: KING Gregory Physician: [id number] Augustus Issa DO Study Date: 01/09/2025 Ordering Provider: [id number] DANI DODGE MRN/PID: [id number] Fellow: Nurse: Date of /Age: 1 1960 / 64 years 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: Gege Balbuena [facility] FACILITY Gender Assigned at F Additional Staff: : Height: 157.48 cm Admit Date: 01/08/2025 Weight: 67.59 kg Admission Status: Inpatient - Routine BSA / BMI: 1.69 m2 / 27.25 Department Location: [facility] kg/m2 Blood Pressure: 101 /55 mmHg Study Type: TRANSTHORACIC ECHO (TTE) COMPLETE Diagnosis/ICD: Ventricular tachycardia, other-I47.29 Indication: Multiple ICD firings CPT Codes: Echo Complete w Full Doppler-[id number] Patient History: Pacer/Defib: AICD Pertinent History: HTN, [...] LA Area A2C: 19.2 cm2 LA Major [place] A4C: 6.3 cm LA Major [place] A2C: 5.7 cm LA Volume Index: 33.4 ml/m2 RIGHT ATRIUM: Normal Ranges: RA Vol A4C: 32.8 ml (8.3-19.5ml) RA Vol Index A4C: 19.4 ml/m2 RA Area A4C: 13.1 cm2 RA Major [place] A4C: 4.4 cm LV SYSTOLIC FUNCTION: Normal [...] 1.0 m/s (0.6-0.9m/s) PV Max P.9 mmHg [id number] Augustus Issa DO Electronically signed on 01/10/2025 at 8:51:17 AM Wall Scoring Final Procedure Note Augustus Issa DO - 01/10/2025 [place] [address] TRANSTHORACIC ECHOCARDIOGRAM REPORT Patient Name: KING MORENO Reading Physician: Demario Negrete Study Date: 01/09/2025 Ordering Provider: [id number] JAMES DODGE MRN/PID: [id number] Fellow: Nurse: Date of /Age: 1 1960 / 64 years 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: Yana MURPHY Gender Assigned at F Additional Staff: : Height: 157.48 cm Admit Date: 01/08/2025 Weight: 67.59 kg Admission Status: Inpatient- Routine BSA / BMI: 1.69 m2 / 27.25 [facility] Blood Pressure: 101 /55 mmHg Study Type: TRANSTHORACIC ECHO (TTE) COMPLETE Diagnosis/ICD: Ventricular tachycardia, other-I47.29 Indication: Multiple ICD firings CPT Codes: Echo Complete w Full Doppler-[id number] Patient History: Pacer/Defib: AICD Pertinent History: HTN, [...] LA Area A2C: 19.2 cm2 LA Major [place] A4C: 6.3 cm LA Major [place] A2C: 5.7 cm LA Volume Index: 33.4 ml/m2 RIGHT ATRIUM: Normal Ranges: RA Vol A4C: 32.8 ml (8.3-19.5ml) RA Vol Index A4C: 19.4 ml/m2 RA Area A4C: 13.1 cm2 RA Major [place] A4C: 4.4 cm LV SYSTOLIC FUNCTION: Normal [...] 1.0 m/s (0.6-0.9m/s) PV Max P.9 mmHg [id number] Augustus Issa DO Electronically signed on 01/10/2025 at 8:51:17 AM Wall Scoring Final us Srinviasa Michelle MD CV ECHO PROCEDURES Final Re sult SYNGO * TSH with reflex to Free T4 if abnormal (01/08/2025 7:21 PM EDT) Thyroid Stimulating Hormone 2.12 0.44 - 3.98 mIU/L LAB IMMUNOASSAY METHOD 01/08/2025 8:19 PM EDT [facility] Blood Venous blood specimen / Unknown Venipuncture / Unknown 01/08/2025 7:21 PM EDT 01/08/2025 7:26 PM EDT Narrative [facility] - 01/08/2025 8:19 PM EDT TSH testing is performed using different testing methodology at [facility] than at other [facility]. Direct result comparisons should only be made within the same method. Julia Sol PA-C LAB BLOOD ORDERABLES Final Res ult [facility] [address] [place] [address] * Hemoglobin A1c (01/08/2025 7:21 PM EDT) [facility] Signature Hemoglobin A1C 5.5 See comment % 025 11:45 PM EDT [facility] Estimated Average Glucose 111 Not Established mg/dL 01/08/2025 11:45 PM EDT [facility] Blood Venous blood specimen / Unknown Venipuncture / Unknown 01/08/2025 7:21 PM EDT 01/08/2025 7:26 PM EDT Narrative [facility] - 01/08/2025 11:45 PM EDT Diagnosis of Diabetes-Adults Non-Diabetic: < or = 5.6% Increased risk for developing diabetes: 5.7-6.4% Diagnostic of diabetes: > or = 6.5% Julia Sol PA-C LAB BLOOD ORDERABLES Final Res ult [facility] [address] [address] from Last 3 Months or Most Recently Relevant to Health Maintenance Insurance [place] [address] [address] DUAL ADVANTAGE MEDICAID DUAL ADVANTAGE Advance Directives For more information, please contact: [phone] (Available ) * Full Code (Latest Code Status on File) Date Activated Date Inactivated Comments 11/26/2023 6:41 AM Question Answer Comments Plan of Care: Code Status Discussion Not Compl eted Decision Maker: Provider Rationale: Patient condition does not warra nt discussion Care Teams Director Vaccine Relationship Specialty Start Date End Date Conchita Aden MD [facility] [address] PCP - General Family Medicine 11/11/24 June Preston MD [address] [facility], [facility] [address] [place] [address] Wildlife Biology Internship Electrophysiology 09/13/24 Earlene Eubanks, RN Cotton PresserGatehouse Attendant 04/17/25
--- OUTSIDE RECORDS SUMMARY | 2025-04-22 16:21 | XMS_ITS | Encounter Summary ---
Author Organization [facility] Address [address] [place] [address] Care Team Providers Care Property Utilization Manager Name Role Phone Conchita Aden MD Primary Care Provider Encounter Details Date Type Department Care Team (Late Contact Info) Description 04/10/2025 Clinisync Result Encounter [facility] External Department Unsolicited Charity Gerard PA [address] [place] [address] [place] [address] Social History Tobacco Use Types [...] Priority Date/Time Associated Diagnosis Comments ECG 12-LEAD 04/10/2025 8:03 PM EDT documented in this encounter Results * ECG 12-LEAD (04/10/2025 8:03 PM EDT) Anatomical Region Laterality Modality Other 04/10/2025 8:03 PM EDT Narrative 04/11/2025 6:49 AM EDT The [address] [address] Electrocardiograph Report Signed Patient: KING MORENO MR#: [id number] : 1960 Acct:[id number] Age/Sex: 64 / F ADM Date: 04/10/25 Loc: [place] 231-[address]: Alexandra Roberson D.O. Ordering Physician: Charity Gerard Date of Service: 04/10/25 Procedure(s): ECG 12 lead Accession Number(s): [id number] cc: The [facility] Test Date: 2025-04-10 Pat Name: KING MORENO Department: Room: [facility] Gender: Female Backup Administrative Coordinator: : 1960 Requested By: 0923 Order Number: [id number] Reading MD: CROW MORRISON M.D. Measurements Intervals [place] Rate: 70 P: 68 CO: 138 QRS: 69 QRSD: 90 T: -30 QT: 414 QTc: 434 Interpretive Statements 1100 Sinus rhythm 3434 Septal myocardial infarction, age undetermined 4068 Nonspecific Twave abnormality 9150 abnormal ECG Compared to ECG 04/09/2025 11:16:31 No significant changes Electronically Signed On 04-11-2025 6:48:53 EDT by CROW MORRISON M.D. Dictated By: CROW MORRISON Signed By: 04/11/25648 DD/ 02 TD/TT: Revolving Inventory Clerk: Procedure Note Radiology, Radiologist, MD - 04/11/2025 [place] [address] Electrocardiograph Report Signed Patient: KING MORENO AMR#: [id number] : 1960cct:[id number] Age/Sex: 64 / FADM Date: 04/10/25 Loc: [place] 231-[address]: Alexandra Roberson D.O. Ordering Physician: Charity Gerard Date of Service: 04/10/25 Procedure(s): ECG 12 lead Accession Number(s): [id number] cc: The [facility] Test Date: 2025-04-10 Pat Name: KING MORENO Department: Room: [facility] Gender: Female Backup Administrative Coordinator: : 1960 Requested By: 0923 Order Number: [id number] Reading MD: CROW MORRISON M.D. Measurements Intervals [place] Rate: 70 P: 68 CO: 138 QRS: 69 QRSD: 90 T: -30 QT: 414 QTc: 434 Interpretive Statements 1100 Sinus rhythm 3434 Septal myocardial infarction, age undetermined 4068 Nonspecific Twave abnormality 9150 abnormal ECG Compared to ECG 04/09/2025 11:16:31 No significant changes Electronically Signed On 04-11-2025 6:48:53 EDT by CROW MORRISON M.D. Dictated By: CROW MORRISON Signed By:04/11/25 0649 DD/ 02 TD/TT: Revolving Inventory Clerk: Charity [facility] Final Result documented in this encounter Visit Diagnoses Not on filedocumented in this encounter Care Teams Property Utilization Manager Relationship Specialty Start Date End Date Conchita Aden MD PCP - General Family Medicine 11/07/24 documented as of this encounter
--- OUTSIDE RECORDS SUMMARY | 2025-04-22 16:21 | XMS_ITS | Encounter Summary ---
Author Organization [facility] Address [address] [place] [address] Phone Care Team Providers Care Vertical Boring Mill Operator Name Role Phone June Preston MD Unavailable Conchita Aden MD Primary Care Provider [phone] Earlene Eubanks RN Unavailable Encounter Details Date Type Department Care Team (Late st Contact Info) Description 04/17/2025 Telephone [place] [id number] [address] Erika De La Cruz, PAULA Social History Tobacco Use Types Packs/Day Years [...] from your doctor or pharmacy? Never 01/08/2025 [facility] Utilities Answer Date Recorded In the past 12 months has e electric, gas, oil, or water company [...] How often do you attend uatsdin or islam serv ices? Patient declined 01/08/2025 [...] Recorded Patient Health Questionnaire-2 Score 0 04/14/2025 [facility] [place] of Occupat ional Health - Occupational Stress [...] any time in the past 12 m [facility], were you homeless or living in a half-way (including now)? No 04/14/2025 Comments No Sex [...] PM EDT documented as of this encounter Miscellaneous Notes * Telephone Encounter - Erika De La Cruz RN - 04/17/2025 12:00 PM EDT Pt phones for refill of ranexa and invokana. Advised that scripts were sent in November and Decemberand to contact pharmacy for those and to call back if any issues, she verbalized understanding. documented in this encounter Plan of Treatment Upcoming Encounters Date Type Department Care Team (Late st Contact Info) Description 05/17/2025 3:30 PM EDT Office Visit [facility] [address] [facility] [address] [place] [address] Kervin Fair MD [address] [facility] Office [facility], [facility] [address] [place] [address] 07/14/2025 1:00 PM EDT Office Visit [facility] [address] [facility] [address] [place] [address] Oscar Rodriguez MD [address] [facility] 2, [address] [place] [address] 09/26/2025 12:20 PM EST Appointment [facility] [address] [facility] [place] [place] [address] 09/26/2025 1:00 PM EST Office Visit [facility] [address] [facility] [address] [place] [address] June Preston MD [address] [facility] Office [facility], [facility] [address] [place] [address] documented as of this encounter Visit Diagnoses Not on filedocumented in this encounter Additional Health Concerns Assessment Noted Time PHQ-9 Depression Total Score: 9 01/23/20 22 11:33 AM EDT A fall risk assessment has been complete d for the patient 03/01/2024 12:30 PM EDT documented as of this encounter Care Teams Vertical Boring Mill Operator Relationship Specialty Start Date End Date Conchita Aden MD [address] [place] [address] [place] [address] PCP - General Family Medicine 11/11/24 June Preston MD [address] [facility] Medical [facility] Bl, [facility] [address] [place] [address] Rat Exterminator Electrophysiology 09/13/24 Earlene Eubanks, RN Parts Room ClerkAssistant Toddler Teacher 04/17/25 documented as of this encounter
--- OUTSIDE RECORDS SUMMARY | 2025-04-22 16:21 | XMS_ITS | Encounter Summary ---
Author Organization [facility] Address [address] [place] [address] Phone Care Team Providers Care Soap Press Feeder Name Role Phone June Preston MD Unavailable Conchita Aden MD Primary Care Provider [phone] Earlene Eubanks RN Unavailable Encounter Details Date Type Department Care Team (Late st Contact Info) Description 02/10/2025 Scanned Document [facility] [address] [place] [id number] Scanning, Generic Provider Social History Tobacco Use [...] week 01/08/2025 How often do you attend zoroastrianism or latter day serv ices? Patient declined 01/08/2025 Do you belong to any clubs o r organizations such as zoroastrianism groups, unions, fraternal or athletic groups, or [...] Recorded Patient Health Questionnaire-2 Score 0 01/08/2025 [facility] [place] of Occupat ional Health - Occupational Stress [...] time in the past 12 m [facility], were you homeless or living in [...] Description 05/17/2025 3:30 PM EDT Office Visit [facility] [address] [facility] [address] [place] [address] Kervin Fair MD [address] [facility] Office Bldg, [address] [place] [address] 07/14/2025 1:00 PM EDT Office Visit [facility] [address] [place] [address] Oscar Rodriguez MD [address], [address] [place] [address] 09/26/2025 12:20 PM EST Appointment [facility] [address] [place] [facility] [place] [address] 09/26/2025 1:00 PM EST Office Visit [facility] [address] [facility] [address] [place] [address] June Preston MD [address] [facility] Office Bldg, [address] [place] [address] documented as of this encounter Procedures Procedure [...] documented as of this encounter Care Teams Soap Press Feeder Relationship Specialty Start Date End Date Conchita Aden MD [address] [place] [address] A [place] [id number] PCP - General Family Medicine 11/11/24 June Preston MD [address] [facility] Medical Office Bl, [address] [place], [place] [phone] Screenplay Writer Electrophysiology 09/13/24 Earlene Eubanks, RN Human Service WorkerStudent Development Advisor 04/17/25 documented as of this encounter
--- OUTSIDE RECORDS SUMMARY | 2025-04-22 16:21 | XMS_ITS | Encounter Summary ---
Author Organization [facility] Address [address] [place] [address] Phone Care Team Providers Care Trial Mgr Name Role Phone June Preston MD Unavailable Conchita Aden MD Primary Care Provider [phone] Earlene Eubanks RN Unavailable Encounter Details Date Type Department Care Team (Late st Contact Info) Description 04/18/2025 Patient Outreach [facility] [address] [facility] [address] [place] [address] Earlene Eubanks, RN Social History Tobacco Use Types Packs/Day Years [...] from your doctor or pharmacy? Never 01/08/2025 [facility] Utilities Answer Date Recorded In [...] week 01/08/2025 How often do you attend sabianist or hoahaoism serv ices? Patient declined 01/08/2025 Do you belong to any clubs o r organizations such as sabianist groups, unions, fraternal or athletic groups, or [...] Recorded Patient Health Questionnaire-2 Score 0 04/14/2025 [facility] [place] of Occupat ional Health - Occupational Stress [...] any time in the past 12 m [facility], were you homeless or living in a [place] [facility] [place] facility (including now)? No 04/14/2025 Comments No Sex [...] PM EDT documented as of this encounter Progress Notes * Earlene Eubanks RN - 04/18/2025 9:45 AM EDT Discharge Facility: [facility] Discharge Diagnosis: Ventricular tachycardia (Multi) Admission Date: 04/14/25 Discharge Date: 04/15/25 PCP Appointment Date: TBD no contact Specialist Appointment Date: 05/17/25 [facility] Encounter and Summary Linked: Yes Admission (Discharged) with Kervin Fair MD (04/14/2025) Unable to reach Patient x 2. LVM requesting return call. documented in this encounter Plan of Treatment Upcoming Encounters Date Type Department Care Team (Late st Contact Info) Description 05/17/2025 3:30 PM EDT Office Visit [facility] [address] [facility] [address] [place] [address] Kervin Fair MD [address] [facility] Office [facility], [facility] [address] [place] [address] 07/14/2025 1:00 PM EDT Office Visit [facility] [address] [facility] [address] [place] [address] Oscar Rodriguez MD 703 [facility] 2, [address] [place] [address] 09/26/2025 12:20 PM EST Appointment [facility] [address] [facility] [place] [address] 09/26/2025 1:00 PM EST Office Visit [facility] [address] [facility] [address] [place] [address] June Preston MD [address] [facility] Office [facility], [address] [place] [address] documented as of this encounter Visit Diagnoses Not on filedocumented in this encounter Additional Health Concerns Assessment Noted Time PHQ-9 Depression Total Score: 9 01/23/20 22 11:33 AM EDT A fall risk assessment has been complete d for the patient 03/01/2024 12:30 PM EDT documented as of this encounter Care Teams Trial Mgr Relationship Specialty Start Date End Date Conchita Aden MD [address] [place] [address] [place] [address] PCP - General Family Medicine 11/11/24 June Preston MD [address] [facility] [address], [address] [place] [address] Brick Wheeler Electrophysiology 09/13/24 Earlene Eubanks, RN Retail Banking ManagerHigh Frequency Mill Operator 04/17/25 documented as of this encounter
--- OUTSIDE RECORDS SUMMARY | 2025-04-22 16:22 | XMS_ITS | Encounter Summary ---
Author Organization [facility] Address [address] [place] [address] Phone Care Team Providers Care Nitroglycerin Distributor Name Role Phone Tremaine West DO Primary Care Provider Ania Brothers WIND SCIENCE AND PLANNING-TECHNICAL SERVICE REP Unavailable Unavailable June Preston MD Unavailable Sol Keita INSPECTOR AND MENDER Unavailable June Preston MD Unavailable Oscar Rodriguez MD Unavailable [phone] Generic Provider, No Assigned Pcp Primary Car e Provider Unavailable Diane Min RN Unavailable Unavailable June Preston MD Unavailable Conchita Aden MD Primary Care Provider [phone] Diane Min RN Unavailable Unavailable Earlene Eubanks RN Unavailable Encounter Details Date Type Department Care Team (Late st Contact Info) Description 03/25/2023 Orders Only [facility] [address] [place] [address] Conversion, Onbase Social History Tobacco Use Types [...] Encounters Date Type Department Care Team (Late Contact Info) Description 05/17/2025 3:30 PM EDT Office Visit [facility] [address] [facility] [address] [place] [address] Kervin Fair MD [address] [facility] Office Bldg, [address] [place] [address] 07/14/2025 1:00 PM EDT Office Visit [facility] [address] [facility] [address] [place] [address] Oscar Rodriguez MD [facility] [facility], [address] [place] [address] 09/26/2025 12:20 PM EST Appointment [facility] [address] [place] [facility] [address] 09/26/2025 1:00 PM EST Office Visit [facility] [address] [facility] [address] [place] [address] June Preston MD [address] [facility] Office Bl, [address] [place] [address] Scheduled Orders Name Type Priority Associated Diagnoses [...] documented as of this encounter Care Teams Nitroglycerin Distributor Relationship Specialty Start Date End Date Tremaine West DO [address] [facility] Tremaine West DO [address] [place] [address] PCP - General 01/22/22 11/05/23 Generic Provider, No Assigned Pcp, MD NONE [facility] [place] [address] PCP - General Mailmaster 08/08/24 11/10/24 Conchita Aden MD [address] [place] [address] [place] [address] PCP - General Family Medicine 11/11/24 Ania Brothers APRN-TECHNICAL SERVICE REP [address] [facility] Tremaine Childersyukoezekiel [facility] [address] [place] [address] Nurse Practitioner Cardiology 09/30/23 02/16/24 June Preston MD [address] [facility] Tremaine Childersiraidasimon [address] [place] [address] Agricultural Equipment Sales Engineer Cardiology 09/30/23 02/16/24 Sol Keita, INSPECTOR AND MENDER Freezer OperatorManager Hotel 02/19/24 05/17/24 June Preston MD [address] [facility], [address] [place] [address] Consulting Physician Cardiology 02/19/24 02/29/24 Oscar Rodriguez MD 703 [facility] 2, [address] [place] [address] Consulting Physician Cardiology 02/19/24 02/29/24 Diane Min RN Care Manager Hotel 09/05/24 12/06/24 June Preston MD [address] [facility] [address], [address] [place] [address] Agricultural Equipment Sales Engineer Electrophysiology 09/13/24 Diane Min, dental detail representativeManager Hotel 01/16/25 01/31/25 Earlene Eubanks, RN Freezer OperatorManager Hotel 04/17/25 documented as of this encounter
--- OUTSIDE RECORDS SUMMARY | 2025-04-22 16:22 | XMS_ITS | Encounter Summary ---
Author Organization [facility] Address [address] [place] [address] Phone Care Team Providers Care Civil Preparedness Officer Name Role Phone Tremaine West DO Primary Care Provider Ania Brothers MARKETING SPECIALIST-OPTICAL MANAGER Unavailable Unavailable June Preston MD Unavailable Sol Keita WELDING MACHINE OPERATOR ELECTRON BEAM Unavailable June Preston MD Unavailable Oscar Rodriguez MD Unavailable [phone] Generic Provider, No Assigned Pcp Primary Car e Provider Unavailable Diane Min RN Unavailable Unavailable June Preston MD Unavailable Conchita Aden MD Primary Care Provider [phone] Diane Min RN Unavailable Unavailable Earlene Eubanks RN Unavailable Encounter Details Date Type Department Care Team (Late st Contact Info) Description 01/31/2021 Orders Only [facility] LEGACY [address] [place] [address] Conversion, Onbase Social History Tobacco Use Types [...] Description 05/17/2025 3:30 PM EDT Office Visit [facility] [address] [facility] [address] [place] [address] Kervin Fair MD [address] [facility] Office [facility], [facility] [address] [place] [address] 07/14/2025 1:00 PM EDT Office Visit [facility] [address] [facility] [address] [place] [address] Oscar Rodriguez MD [address] [facility] 2, Steve [address] [place] [address] 09/26/2025 12:20 PM EST Appointment [facility] [address] [facility] [place] [address] 09/26/2025 1:00 PM EST Office Visit [facility] [address] [facility] [address] [place] [address] June Preston MD [address] [facility] Office [facility], [facility] [address] [place] [address] Scheduled Orders Name Type Priority Associated Diagnoses [...] documented as of this encounter Care Teams Civil Preparedness Officer Relationship Specialty Start Date End Date Tremaine West DO [address] [facility] Tremaine West, DO Steve [address] [place] [address] PCP - General 01/22/22 11/05/23 Generic Provider, No Assigned Pcp, MD [facility] [place] [address] PCP - General Green Chain Off Bearer 08/08/24 11/10/24 Conchita Aden MD [address] [place] [address] [place] [address] PCP - General Family Medicine 11/11/24 Ania Brothers, MARKETING SPECIALIST-OPTICAL MANAGER [address] [facility] Tremaine West, [facility] [address] [place] [address] Nurse Practitioner Cardiology 09/30/23 02/16/24 June Preston MD [address] [facility] Tremaine Haynes, [facility] [address] [place] [address] Tool And Die Repairer Cardiology 09/30/23 02/16/24 Sol Keita, WELDING MACHINE OPERATOR ELECTRON BEAM Rn TeacherVeterans' Counselor 02/19/24 05/17/24 June Preston MD [address] [facility], Steve [address] [place] [address] Consulting Physician Cardiology 02/19/24 02/29/24 Oscar Rodriguez MD [address] [facility] [address], [address] [place] [address] Consulting Physician Cardiology 02/19/24 02/29/24 Diane Min, geneticistVeterans' Counselor 09/05/24 12/06/24 June Preston MD [address] [facility], Steve [address] [place] [address] Tool And Die Repairer Electrophysiology 09/13/24 Diane Min, geneticistVeterans' Counselor 01/16/25 01/31/25 Earlene Eubanks, PAULA Rn TeacherVeterans' Counselor 04/17/25 documented as of this encounter
--- OUTSIDE RECORDS SUMMARY | 2025-04-22 16:22 | XMS_ITS | Clinical Summary ---
Author Organization [facility] Address [address] [place] [address] Care Team Providers Care Learning And Development Administrator Name Role Phone Conchita Aden MD Primary Care Provider [phone] Allergies No known active allergies Medications oxybutynin [...] Encounters Date Type Department Care Team Description 04/10/2025 Clinisync Result Encounter [facility] External Department Unsolicited Charity Gerard PA 03/27/2025 External Result Encounter [facility] External Department [...] Comments ECG 12-LEAD 04/10/2025 8:03 PM EDT US PELVIS 03/27/2025 11:11 AM EDT CA 125 Routine 03/26/2025 5:52 PM EDT CARCINOEMBRYONIC ANTIGEN Routine 025 5:52 PM EDT from Last 3 Months Results * ECG 12-LEAD (04/10/2025 8:03 PM EDT) Anatomical Region Laterality Modality Other 04/10/2025 8:03 PM EDT Narrative 04/11/2025 6:49 AM EDT [facility] [place] [id number] Electrocardiograph Report Signed Patient: KING MORENO MR#: [id number] : 1960 Acct:[id number] Age/Sex: 64 / F ADM Date: 04/10/25 Loc: MS 231-[address]: Alexandra Roberson D.O. Ordering Physician: Charity Gerard Date of Service: 04/10/25 Procedure(s): ECG 12 lead Accession Number(s): [id number] cc: [facility] Test Date: 2025-04-10 Pat Name: KING MORENO Department: Room: [facility] Gender: Female Manager Risk: : 1960 Requested By: 0923 Order Number: [id number] Reading MD: CROW MORRISON M.D. Measurements Intervals [place] Rate: 70 P: 68 KS: 138 QRS: 69 QRSD: 90 T: -30 QT: 414 QTc: 434 Interpretive Statements 1100 Sinus rhythm 3434 Septal myocardial infarction, age undetermined 4068 Nonspecific Twave abnormality 9150 abnormal ECG Compared to ECG 04/09/2025 11:16:31 No significant changes Electronically Signed On 04-11-2025 6:48:53 EDT by RCOW MORRISON M.D. Dictated By: CROW MORRISON Signed By: 04/11/2549 DD/ 02 TD/TT: Prompt Care Rn: Procedure Note Radiology, Radiologist, MD - 04/11/[address] [address] Electrocardiograph Report Signed Patient: KING MORENO AMR#: [id number] : 1960cct:[id number] Age/Sex: 64 / FADM Date: 04/10/25 Loc: MS 231-[address]: Alexandra Roberson D.O. Ordering Physician: Charity Gerard Date of Service: 04/10/25 Procedure(s): ECG 12 lead Accession Number(s): [id number] cc: [facility] Test Date: 2025-04-10 Pat Name: KING BARTON Department: Room: [facility] Gender: Female Manager Risk: : 1960 Requested By: 0923 Order Number: [id number] Reading MD: CROW MORRISON M.D. Measurements Intervals [place] Rate: 70 P: 68 KS: 138 QRS: 69 QRSD: 90 T: -30 QT: 414 QTc: 434 Interpretive Statements 1100 Sinus rhythm 3434 Septal myocardial infarction, age undetermined 4068 Nonspecific Twave abnormality 9150 abnormal ECG Compared to ECG 04/09/2025 11:16:31 No significant changes Electronically Signed On 04-11-2025 6:48:53 EDT by CROW MORRISON M.D. Dictated By: CROW MORRISON Signed By:04/11/25 0649 DD/ 02 TD/TT: Prompt Care Rn: us Charity [facility] Final Result * US pelvis (03/27/2025 11:11 AM EDT) [...] Moreno M.D. 03/27/2025 11:14 AM Dictation Location: [place] [address] Tech: Le Millan Transcribed By: PWS 03/27/25 1114 Dictated By: Gerber Moreno II, MD 03/27/25 1111 Signed By: <Electronically signed by Gerber Moreno II, MD in OV> 03/27/25 1114 Narrative 03/27/2025 11:16 AM EDT [facility] [place] [address] Ultrasound Report Signed Patient: King Moreno MR#: [id number] : 1960 Acct:[id number] Age/Sex: 64 / F ADM Date: 03/26/25 Loc: 4P Room: [id number] Type: ADM IN Attending Dr: Yonis Covington [...] Procedure Note Gerber Moreno MD - 03/27/2025 [facility] [place] [address] Ultrasound Report Signed Patient: King Moreno AMR#: [id number] : 1960cct:[id number] Age/Sex: 64 / FADM Date: 03/26/25 Loc: 4P Room: [id number]: ADM IN Attending Dr: Yonis Covington DO Ordering Provider: Lorrei Winn MD-[facility] Date of Service: 03/27/25 US/US pelvic complete: [...] Moreno M.D. 03/27/2025 11:14 AM Dictation Location: [place] [address] Tech: Le Millan Transcribed By: KATHLEEN 03/27/25 1114 Dictated By: Gerber Moreno II, MD 03/27/25 1111 Signed By: <Electronically signed by Gerber Moreno II, MD inOV> 03/27/25 1114 Lorrie Winn MD [facility] PROCEDURES Final Result * CARCINOEMBRYONIC ANTIGEN (03/26/2025 5:52 PM EDT) CARCINOEMBRYONIC ANTIGEN 1.4 0.0 - 3.0 ng/mL 03/26/2025 6:49 PM EDT [facility] Comment: Serial tumor marker results determined by assays using different manufacturers or methods may not be comparable. [facility] accounts payable or receivable clerk and method: SAEED UNICEL DXI, 2 SITE IMMUNOENZYMATIC S ANDWICH ASSAY. Other Topography unknown / Unknown 03/26/2025 5:52 PM EDT 03/26/2025 6:10 PM EDT Lorrie Winn MD LAB BLOOD ORDERABLES Final Res ult Performing Organization Address [facility] de Phone Number [facility] [address] [place] [address], [facility] [address] [place] [address] * [place] 125 (03/26/2025 5:52 PM EDT) Pathologist [facility] CANCER ANTIGEN 125 10.3 0.0 - 38.1 03/29/2025 3:36 AM EDT [facility] Comment: [facility] Electrochemiluminescence Immunoassay (ECLIA) Values obtained with different assay methods or kits cannot be used interchangeably. Results cannot be interpreted as absolute evidence of the presence or absence of malignant disease. Performed at: [address] [id number] [place] Engineer: Jose Damon PhD, Phone: [phone] Other Topography unknown / Unknown 03/26/2025 5:52 PM EDT 03/26/2025 6:10 PM EDT Lorrie Winn MD LAB BLOOD ORDERABLES Final Res ult Performing Organization Address [facility] [place] [address], from Last 3 Months Insurance [employer] Care Teams Learning And Development Administrator Relationship Specialty Start Date End Date Conchita Aden MD PCP - General Family Medicine 11/07/24
--- OUTSIDE RECORDS SUMMARY | 2025-04-22 16:22 | XMS_ITS | Encounter Summary ---
Author Organization [facility] Address [address] [place] [address] Phone Care Team Providers Care Grinder Chipper Name Role Phone Tremaine West DO Primary Care Provider Ania Brothers MEAT SCRUBBER-SOFTWARE TEST MANAGER Unavailable Unavailable June Preston MD Unavailable Sol Keita FILER AND SANDER Unavailable June Preston MD Unavailable Oscar Rodriguez MD Unavailable [phone] Generic Provider, No Assigned Pcp Primary Car e Provider Unavailable Diane Min RN Unavailable Unavailable June Preston MD Unavailable Conchita Aden MD Primary Care Provider [phone] Diane Min RN Unavailable Unavailable Earlene Eubanks RN Unavailable Encounter Details Date Type Department Care Team (Late st Contact Info) Description 09/08/2019 Orders Only [facility] LEGACY [address] [place] [address] Conversion, Onbase Social History Tobacco Use Types [...] Description 05/17/2025 3:30 PM EDT Office Visit [facility] [address] [facility] [address] [place] [address] Kervin Fair MD [address] [facility] Office [facility], [facility] [address] [place] [address] 07/14/2025 1:00 PM EDT Office Visit [facility] [address] [facility] [address] [place] [address] Oscar Rodriguez MD 703 [facility], [address] [place] [address] 09/26/2025 12:20 PM EST Appointment [facility] [address] [facility] [place] [address] 09/26/2025 1:00 PM EST Office Visit [facility] [address] [facility] [address] [place] [address] June Preston MD [address] [facility] Office [facility], [facility] [address] [place] [address] Scheduled Orders Name Type Priority Associated Diagnoses [...] documented as of this encounter Care Teams Grinder Chipper Relationship Specialty Start Date End Date Tremaine West DO [address] Tremaine West, DO [address] [place] [address] PCP - General 01/22/22 11/05/23 Generic Provider, No Assigned Pcp, MD [facility] [place] [address] PCP - General Stone Rigger 08/08/24 11/10/24 Conchita Aden MD [address] [place] [address] [place] [address] PCP - General Family Medicine 11/11/24 Ania Brothers, MEAT SCRUBBER-SOFTWARE TEST MANAGER [address] [facility] Tremaine West, [facility] [address] [place] [address] Nurse Practitioner Cardiology 09/30/23 02/16/24 June Preston MD [address] [facility] Tremaine West, [facility] [address] [place] [address] Field Artillery Senior Sergeant Cardiology 09/30/23 02/16/24 Sol Keita, FILER AND SANDER Retail Performance SpecialistNibbler Operator 02/19/24 05/17/24 June Preston MD [address] [facility], [address] [place] [address] Consulting Physician Cardiology 02/19/24 02/29/24 Oscar Rodriguez MD 703 [facility] 2, [address] [place] [address] Consulting Physician Cardiology 02/19/24 02/29/24 Diane Min, electrical unit rebuilderNibbler Operator 09/05/24 12/06/24 June Preston MD [address] [facility], [address] [place] [address] Field Artillery Senior Sergeant Electrophysiology 09/13/24 Diane Min, electrical unit rebuilderNibbler Operator 01/16/25 01/31/25 Earlene Eubanks, PAULA Retail Performance SpecialistNibbler Operator 04/17/25 documented as of this encounter
--- OUTSIDE RECORDS SUMMARY | 2025-04-22 16:22 | XMS_ITS | Encounter Summary ---
Author Organization [facility] Address [address] [place] [address] Phone Care Team Providers Care Mechanical Engineering Draftsperson Name Role Phone Tremaine West DO Primary Care Provider Ania Brothers SKIP LOCATOR-CANDY CUTTER HAND Unavailable Unavailable June Preston MD Unavailable Sol Keita GERMINATION WORKER Unavailable June Preston MD Unavailable Oscar Rodriguez MD Unavailable [phone] Generic Provider, No Assigned Pcp Primary Car e Provider Unavailable Diane Min RN Unavailable Unavailable June Preston MD Unavailable Conchita Aden MD Primary Care Provider [phone] Diane Min RN Unavailable Unavailable Earlene Eubanks RN Unavailable Encounter Details Date Type Department Care Team (Late st Contact Info) Description 08/15/2019 Orders Only [facility] LEGACY [address] [place] [address] Conversion, Onbase Social History Tobacco Use Types [...] Description 05/17/2025 3:30 PM EDT Office Visit [facility] [address] [facility] [address] [place] [address] Kervin Fair MD [address] [facility] Office [facility], [facility] [address] [place] [address] 07/14/2025 1:00 PM EDT Office [facility] 703 [facility] [address] [place] [address] Oscar Rodriguez MD 703 [facility] 2, [address] [place] [address] 09/26/2025 12:20 PM EST Appointment [facility] [address] [place] [address] 09/26/2025 1:00 PM EST Office Visit [facility] [address] [facility] [address] [place] [address] June Preston MD [address] [facility] Office [facility], [facility] [address] [place] [address] Scheduled Orders Name Type Priority Associated Diagnoses [...] as of this encounter Care Teams Mechanical Engineering Draftsperson Relationship Specialty Start Date End Date SchTremaine gregg DO 16[address] [facility] Tremaine Jenna, DO [address] [place] [address] PCP - General 01/22/22 11/05/23 Generic Provider, No Assigned Pcp[place] [address] PCP - General Parimutuel Ticket Seller 08/08/24 11/10/24 Conchita Aden MD [address] [place] [address] [place] [address] PCP - General Family Medicine 11/11/24 Ania Brothers, SKIP LOCATOR-[facility] 1610 [facility] Tremaine West, [facility] [address] [place] [address] Nurse Practitioner Cardiology 09/30/23 02/16/24 June Preston MD 1610 [facility] Tremaine Childersyukoezekiel, [address] [place] [address] Historical Site Guide Cardiology 09/30/23 02/16/24 Sol Keita, GERMINATION WORKER Tower ForemanStrand Forming Machine Operator 02/19/24 05/17/24 June Preston MD [address] [facility], [address] [place] [address] Consulting Physician Cardiology 02/19/24 02/29/24 Oscar Rodriguez MD 703 [facility] 2, [address] [place] [address] Consulting Physician Cardiology 02/19/24 02/29/24 Diane Min, combination machine tenderStrand Forming Machine Operator 09/05/24 12/06/24 June Preston MD [address] [facility], [address] [place] [address] Historical Site Guide Electrophysiology 09/13/24 Diane Min, combination machine tenderStrand Forming Machine Operator 01/16/25 01/31/25 Earlene Eubanks, PAULA Tower ForemanStrand Forming Machine Operator 04/17/25 documented as of this encounter
--- OUTSIDE RECORDS SUMMARY | 2025-04-22 16:22 | XMS_ITS | Encounter Summary ---
Author Organization [facility] Address [address] [place] [address] Care Team Providers Care Can Line Examiner Name Role Phone Conchita Aden MD Primary Care Provider Encounter Details Date Type Department Care Team (Late Contact Info) Description 10/22/2024 Abstract [facility] OB [address] [facility] [place] [id number] David Ewing, DO [address] [facility] [address] Sven [place], [facility] Social History Tobacco Use Types Packs/Day [...] on filedocumented in this encounter Care Teams Can Line Examiner Relationship Specialty Start Date End Date Conchita Aden MD PCP - General Family Medicine 11/07/24 documented as of this encounter
--- OUTSIDE RECORDS SUMMARY | 2025-04-22 16:22 | XMS_ITS | Encounter Summary ---
Author Organization [facility] Address [address] [place] [address] Phone Care Team Providers Care Dermatological Surgeon Name Role Phone Tremaine West DO Primary Care Provider Ania Brothers ELEMENTARY SCHOOL TEACHER'S AIDE-QUALITY HEAD Unavailable Unavailable June Preston MD Unavailable Sol Keita BODY MECHANIC Unavailable [phone] June Preston MD Unavailable Oscar Rodriguez MD Unavailable [phone] Generic Provider, No Assigned Pcp Primary Car e Provider Unavailable Diane Min RN Unavailable Unavailable June Preston MD Unavailable Conchita Aden MD Primary Care Provider [phone] Diane Min RN Unavailable Unavailable Earlene Eubanks RN Unavailable Encounter Details Date Type Department Care Team (Late st Contact Info) Description 06/30/[address] [facility] LEGACY [address] [place] [address] Conversion, Onbase Social History Tobacco Use Types [...] [facility] [address] [facility] [address] [place] [address] Kervin Fair MD [address] [facility] Office [facility], [facility] [address] [place] [address] 07/14/2025 1:00 PM EDT Office Visit [facility] [address] [facility] [address] [place] [address] Oscar Rodriguez MD [address] [facility] 2, [address] [place] [address] 09/26/2025 12:20 PM EST Appointment [facility] [address] [place] [address] 09/26/2025 1:00 PM EST Office Visit [facility] [address] [facility] [address] [place] [address] June Preston MD [address] [facility] Office [facility], [facility] [address] [place] [address] Scheduled Orders Name Type Priority Associated Diagnoses [...] documented as of this encounter Care Teams Dermatological Surgeon Relationship Specialty Start Date End Date Tremaine West DO [address] Tremaine West, DO Steve [address] [place] [address] PCP - General 01/22/22 11/05/23 Generic Provider, No Assigned Pcp, MD [facility] [place] [address] PCP - General Midwife Practitioner 08/08/24 11/10/24 Conchita Aden MD [address] [place] [address] [place] [address] PCP - General Family Medicine 11/11/24 Ania Brothers, ELEMENTARY SCHOOL TEACHER'S AIDE-QUALITY HEAD 1610 [facility] Tremaine West, [facility] [address] [place] [address] Nurse Practitioner Cardiology 09/30/23 02/16/24 June Preston MD [address] [facility] Tremaine West, [facility] [address] [place] [address] Shrimp Pond Laborer Cardiology 09/30/23 02/16/24 Sol Keita, BODY MECHANIC Collection AdvisorCampaign Marketing Specialist 02/19/24 05/17/24 June Preston MD [address] [facility], [address] [place] [address] Consulting Physician Cardiology 02/19/24 02/29/24 Oscar Rodriguez MD 703 [facility] 2, [address] [place] [address] Consulting Physician Cardiology 02/19/24 02/29/24 Diane Min, weight checkerCampaign Marketing Specialist 09/05/24 12/06/24 June Preston MD [address] [facility], [address] [place] [address] Shrimp Pond Laborer Electrophysiology 09/13/24 Diane Min, weight checkerCampaign Marketing Specialist 01/16/25 01/31/25 Earlene Eubanks, PAULA Collection AdvisorCampaign Marketing Specialist 04/17/25 documented as of this encounter
--- OUTSIDE RECORDS SUMMARY | 2025-04-22 16:22 | XMS_ITS | Encounter Summary ---
Author Organization [facility] Address [address] [place] [address] Phone Care Team Providers Care Sand Wheeler Name Role Phone Tremaine West DO Primary Care Provider Ania Brothers RECHARGER-REPEATER CHIEF Unavailable Unavailable June Preston MD Unavailable Sol eKita CORPORATE MANAGER Unavailable June Preston MD Unavailable Oscar Rodriguez MD Unavailable [phone] Generic Provider, No Assigned Pcp Primary Car e Provider Unavailable Diane Min RN Unavailable Unavailable June Preston MD Unavailable Conchita Aden MD Primary Care Provider [phone] Diane Min RN Unavailable Unavailable Earlene Eubanks RN Unavailable Encounter Details Date Type Department Care Team (Late st Contact Info) Description 07/04/2020 Orders Only [facility] [address] [place] [address] Conversion, Onbase Social History Tobacco Use Types [...] Description 05/17/2025 3:30 PM EDT Office Visit [facility] [address] [facility] [address] [place] [address] Kervin Fair MD [address] [facility] Office [facility], [facility] [address] [place] [address] 07/14/2025 1:00 PM EDT Office Visit [facility] 703 [facility] [address] [place] [address] Oscar Rodriguez MD 703 [facility] 2, [address] [place] [address] 09/26/2025 12:20 PM EST Appointment [facility] [address] [place] [address] 09/26/2025 1:00 PM EST Office Visit [facility] [address] [facility] [address] [place] [address] June Preston MD [address] [facility] Office [facility], [facility] [address] [place] [address] Scheduled Orders Name Type Priority Associated Diagnoses [...] documented as of this encounter Care Teams Sand Wheeler Relationship Specialty Start Date End Date Tremaine West DO [address] Tremaine West, DO [address] [place] [address] PCP - General 01/22/22 11/05/23 Generic Provider, No Assigned Pcp, MD A[facility]JO [facility] [place] [address] PCP - General Workers Compensation Attorney 08/08/24 11/10/24 Conchita Aden MD [address] [place] [address] [place] [address] PCP - General Family Medicine 11/11/24 Ania Brothers, RECHARGER-REPEATER CHIEF 1610 [facility] Tremaine West, [facility] [address] [place] [address] Nurse Practitioner Cardiology 09/30/23 02/16/24 June Preston MD 1610 [facility] Tremaine West, [facility] [address] [place] [address] Coroner Cardiology 09/30/23 02/16/24 Sol Keita, CORPORATE MANAGER Hair WeaverIt Security Administrator 02/19/24 05/17/24 June Preston MD [address] [facility], [address] [place] [address] Consulting Physician Cardiology 02/19/24 02/29/24 Oscar Rodriguez MD 703 [facility] 2, [address] [place] [address] Consulting Physician Cardiology 02/19/24 02/29/24 Diane Min, bleach chlorinatorIt Security Administrator 09/05/24 12/06/24 June Preston MD [address] [facility], [address] [place] [address] Coroner Electrophysiology 09/13/24 Diane Min, bleach chlorinatorIt Security Administrator 01/16/25 01/31/25 Earlene Eubanks, PAULA Hair WeaverIt Security Administrator 04/17/25 documented as of this encounter
--- OUTSIDE RECORDS SUMMARY | 2025-04-22 16:22 | XMS_ITS | Encounter Summary ---
Author Organization [facility] Address [address] [place] [address] Phone Care Team Providers Care Surgical Oncologist Name Role Phone Tremaine West DO Primary Care Provider Ania Brothers DIRECTOR ZONE-DIGITAL LEARNING PLATFORMS MANAGER Unavailable Unavailable June Preston MD Unavailable Sol Keita DIRECTOR MARKETING Unavailable June Presotn MD Unavailable Oscar Rodriguez MD Unavailable [phone] Generic Provider, No Assigned Pcp Primary Car e Provider Unavailable Daine Min RN Unavailable Unavailable June Preston MD Unavailable Conchita Aden MD Primary Care Provider [phone] Diane Min RN Unavailable Unavailable Earlene Eubanks RN Unavailable Encounter Details Date Type Department Care Team (Late st Contact Info) Description 05/27/2022 Orders Only [facility] [address] [place] [address] Conversion, Onbase Social History Tobacco Use Types [...] Description 05/17/2025 3:30 PM EDT Office Visit [facility] [address] [facility] [address] [place] [address] Kervin Fair MD [address] [facility] Office Bldg, [address] [place] [address] 07/14/2025 1:00 PM EDT Office [facility] 703 [facility] [address] [place] [address] Oscar Rodriguez MD 703 [facility], [address] [place] [address] 09/26/2025 12:20 PM EST Appointment [facility] [address] [place] [facility] [place] [address] 09/26/2025 1:00 PM EST Office Visit [facility] [address] [facility] [address] [place] [address] June Preston MD [address] [facility] Office Bl, [address] [place] [address] Scheduled Orders Name Type Priority Associated Diagnoses [...] documented as of this encounter Care Teams Surgical Oncologist Relationship Specialty Start Date End Date Tremaine West DO 1610 [facility] Tremaine West DO [address] [place] [address] PCP - General 01/22/22 11/05/23 Generic Provider, No Assigned Pcp, MD NONE [place] [address] PCP - General Chaplaincy 08/08/24 11/10/24 Conchita Aden MD [address] [place] [address] [place] [address] PCP - General Family Medicine 11/11/24 Ania Brothers APRN-DIGITAL LEARNING PLATFORMS MANAGER 1610 [facility] T[address] [facility] [address] [place] [address] Nurse Practitioner Cardiology 09/30/23 02/16/24 June Preston MD 1610 [facility] Tremaine Childersiraidasimon [address] [place] [address] Head Paper Tester Cardiology 09/30/23 02/16/24 Sol Keita, DIRECTOR MARKETING Brim StretcherManager Non Profit 02/19/24 05/17/24 June Preston MD [address] [facility], [address] [place] [address] Consulting Physician Cardiology 02/19/24 02/29/24 Oscar Rodriguez MD 703 [facility] 2, [address] [place] [address] Consulting Physician Cardiology 02/19/24 02/29/24 Diane Min RN Care Manager Non Profit 09/05/24 12/06/24 June Preston MD [address] [facility] Bl, [address] [place] [address] Head Paper Tester Electrophysiology 09/13/24 Diane Min, rock starManager Non Profit 01/16/25 01/31/25 Earlene Eubanks, RN Brim StretcherManager Non Profit 04/17/25 documented as of this encounter
--- OUTSIDE RECORDS SUMMARY | 2025-04-22 16:22 | XMS_ITS | Encounter Summary ---
Author Organization [facility] Address [address] [place] [address] Care Team Providers Care Aircraft Line Assembler Name Role Phone Conchita Aden MD Primary Care Provider [phone] Encounter Details Date Type Department Care Team (Late Contact Info) Description 10/22/2024 Abstract [facility] OB [address] [facility] [place] [id number] David Ewing, DO [address] [facility] [address] Sven Obando, [facility] Social History Tobacco Use Types Packs/Day Years [...] on filedocumented in this encounter Care Teams Aircraft Line Assembler Relationship Specialty Start Date End Date Conchita Aden MD PCP - General Family Medicine 11/07/24 documented as of this encounter
--- OUTSIDE RECORDS SUMMARY | 2025-04-22 16:22 | XMS_ITS | Clinical Summary ---
Author Organization [employer] tem Address [id number] [address] [place] [address] Care Team Providers Care Grey Goods Examiner Name Role Phone Unavailable Primary Care Provider [...] diabetes mellitus 1 11/30/2022 Atherosclerosis of [place] co ronary artery of [place] heart without angina pectoris 07/29/2023 Chronic obstructive pulmonary disease 07/29/2023 Chronic systolic CHF (congestive heart failure) 07/29/2023 Current every day smoker 07/29/2023 Essential hypertension 07/29/2023 Intermittent claudication 07/29/2023 Pulmonary embolism 07/29/2023 Type 2 diabetes mellitus 07/29/2023 Gastroesophageal reflux disease without esophagi tis 11/25/2021 Vascular insufficiency of intestine 04/09/2015 Encounters Date Type Department Care Team Description 03/01/2025 Telephone [facility] Gynecology Oncology, A Department of [facility] [address] [place] [address] Charlotte Garcia RN 02/22/2025 Telephone [facility] Gynecology Oncology, A Department of [facility] [address] [place] [address] Charlotte Garcia, PAULA from Last 3 Months [...] Negative Negative^N egative 12/01/2024 2:25 PM EST [facility] Hpv 18 Negative Negative^N egative 12/01/2024 2:25 PM EST [facility] Other high risk hpv Negative Negative^N egative 12/01/2024 2:25 PM EST [facility] Comment: HPV types 31,33,35,39,45,52,56,58,59,66 and 68 DNA were undetectable. THINP 11/29/2024 3:43 AM EST 12/01/2024 3:44 AM EST us Nanci Mcallister MD LAB BLOOD ORDERABLES Final Resul t SUNDIMAS [facility] [address] [facility] [facility] [place] [address] from Last 3 Months or Most Recently Relevant to Health Maintenance Insurance MEDICAID [place] MEDICARE
--- OUTSIDE RECORDS SUMMARY | 2025-04-22 16:22 | XMS_ITS | Encounter Summary ---
Author Organization [facility] Address [address] [place] [address] Phone Care Team Providers Care Digital Strategist Senior Manager Name Role Phone Tremaine West DO Primary Care Provider Ania Brothers DESIGN INTERN-PHYSICIAN INTERVENTIONAL CARDIOLOGIST Unavailable Unavailable June Preston MD Unavailable Sol Keita RETORT FURNACE OPERATOR Unavailable June Preston MD Unavailable Oscar Rodriguez MD Unavailable [phone] Generic Provider, No Assigned Pcp Primary Car e Provider Unavailable Diane Min RN Unavailable Unavailable June Preston MD Unavailable Conchita Aden MD Primary Care Provider [phone] Diane Min RN Unavailable Unavailable Earlene Eubanks RN Unavailable Encounter Details Date Type Department Care Team (Late st Contact Info) Description 08/20/2020 Orders Only [facility] [address] [place] [address] Conversion, Onbase Social History Tobacco Use Types [...] Description 05/17/2025 3:30 PM EDT Office Visit [facility] [address] [facility] [address] [place] [address] Kervin Fair MD [address] [facility] Office [facility], [facility] [address] [place] [address] 07/14/2025 1:00 PM EDT Office Visit [facility] 703 [facility] [address] [place] [address] Oscar Rodriguez MD 703 [facility] 2, [address] [place] [address] 09/26/2025 12:20 PM EST Appointment [facility] [address] [place] [facility] [place] [address] 09/26/2025 1:00 PM EST Office Visit [facility] [address] [facility] [address] [place] [address] June Preston MD [address] [facility] Office [facility], [facility] [address] [place] [address] Scheduled Orders Name Type Priority Associated Diagnoses [...] as of this encounter Care Teams Digital Strategist Senior Manager Relationship Specialty Start Date End Date Tremaine West DO [address] Tremaine West, DO [address] [place] [address] PCP - General 01/22/22 11/05/23 Generic Provider, No Assigned Pcp, MD [facility] [place] [address] PCP - General Engineering Production Liaison 08/08/24 11/10/24 Conchita Aden MD [address] [place] [address] [place] [address] PCP - General Family Medicine 11/11/24 Ania Brothers, DESIGN INTERN-PHYSICIAN INTERVENTIONAL CARDIOLOGIST 1610 [facility] Tremaine West, [facility] [address] [place] [address] Nurse Practitioner Cardiology 09/30/23 02/16/24 June Preston MD 1610 [facility] Tremaine West, [facility] [address] [place] [address] Appraiser Real Estate Cardiology 09/30/23 02/16/24 Sol Keita, RETORT FURNACE OPERATOR NeuroscientistLocum Tenens 02/19/24 05/17/24 June Preston MD 125 E [facility], [address] [place] [address] Consulting Physician Cardiology 02/19/24 02/29/24 Oscar Rodriguez MD 703 [facility] 2, [address] [place] [address] Consulting Physician Cardiology 02/19/24 02/29/24 Diane Min, family court counsellorLocum Tenens 09/05/24 12/06/24 June Preston MD 125 [address] [facility], [address] [place] [address] Appraiser Real Estate Electrophysiology 09/13/24 Diane Min, family court counsellorLocum Tenens 01/16/25 01/31/25 Earlene Eubanks, PAULA NeuroscientistLocum Tenens 04/17/25 documented as of this encounter
--- OUTSIDE RECORDS SUMMARY | 2025-04-22 16:22 | XMS_ITS | Encounter Summary ---
Author Organization [facility] Address [address] [place] [address] Phone Care Team Providers Care Bottle Labeler Name Role Phone Tremaine West DO Primary Care Provider Ania Brothers CALL CENTER DISPATCHER-DIRECTOR MANUFACTURING ENGINEERING Unavailable Unavailable June Preston MD Unavailable Sol Keita ENTRY CLERK Unavailable June Preston MD Unavailable Oscar Rodrgiuez MD Unavailable [phone] Generic Provider, No Assigned Pcp Primary Car e Provider Unavailable Diane Min RN Unavailable Unavailable June Preston MD Unavailable Conchita Aden MD Primary Care Provider [phone] Diane Min RN Unavailable Unavailable Earlene Eubanks RN Unavailable Encounter Details Date Type Department Care Team (Late st Contact Info) Description 11/20/2020 Orders Only [facility] [address] [place] [address] Conversion, Onbase Social History Tobacco Use Types [...] Description 05/17/2025 3:30 PM EDT Office Visit [facility] [address] [facility] [address] [place] [address] Kervin Fair MD 125 [address] [facility] Office [facility], [facility] [address] [place] [address] 07/14/2025 1:00 PM EDT Office Visit [facility] 703 [facility] [address] [place] [address] Oscar Rodriguez MD 703 [facility] 2, [address] [place] [address] 09/26/2025 12:20 PM EST Appointment [facility] [address] [place] [facility] [place] [address] 09/26/2025 1:00 PM EST Office Visit [facility] 125 [address] [facility] [address] [place] [address] June Preston MD 125 [address] [facility] Office [facility], [facility] [address] [place] [address] Scheduled Orders Name Type Priority Associated Diagnoses [...] documented as of this encounter Care Teams Bottle Labeler Relationship Specialty Start Date End Date Tremaine West DO 1610 [facility] Tremaine West, DO [address] [place] [address] PCP - General 01/22/22 11/05/23 Generic Provider, No Assigned Pcp, MD [facility] [place] [address] PCP - General Layout Artist 08/08/24 11/10/24 Conchita Aden MD [address] [place] [address] [place] [address] PCP - General Family Medicine 11/11/24 Ania Brothers, CALL CENTER DISPATCHER-DIRECTOR MANUFACTURING ENGINEERING 1610 [facility] Tremaine West, [facility] [address] [place] [address] Nurse Practitioner Cardiology 09/30/23 02/16/24 June Preston MD 1610 [facility] Tremaine Haynes, [facility] [address] [place] [address] Waste Management Engineer Cardiology 09/30/23 02/16/24 Sol Keita, ENTRY CLERK Manager Of Exhibitions And CollectionsSchool Traffic Guard 02/19/24 05/17/24 June Preston MD 125 [address] [facility], [address] [place] [address] Consulting Physician Cardiology 02/19/24 02/29/24 Oscar Rodriguez MD 703 [facility] 2, [address] [place] [address] Consulting Physician Cardiology 02/19/24 02/29/24 Diane Min, vp of productSchool Traffic Guard 09/05/24 12/06/24 June Preston MD 125 [address] [facility], [address] [place] [address] Waste Management Engineer Electrophysiology 09/13/24 Diane Min, vp of productSchool Traffic Guard 01/16/25 01/31/25 Earlene Eubanks, PAULA Manager Of Exhibitions And CollectionsSchool Traffic Guard 04/17/25 documented as of this encounter
--- OUTSIDE RECORDS SUMMARY | 2025-04-22 16:22 | XMS_ITS ---
Author Organization [facility] Address [address] [place] [address] Phone Care Team Providers Care Security Test Engineer Name Role Phone June Preston MD Unavailable Conchita Aden MD Primary Care Provider [phone] Earlene Eubanks RN Unavailable Transitional Care Management Status:Enrolled (Active) Start date:04/17/2025 Enrollment date:04/18/2025 Current support & services provided:Medium Complexity Transitional Care Management Related social drivers of health:Social Connections, Tobacco Use, Physical Activity Case Team Name Relationship Phone Earlene Eubanks RN(Responsible Staff) Physician [phone] Continued Care and Services Coordination
--- OUTSIDE RECORDS SUMMARY | 2025-04-22 16:22 | XMS_ITS | Encounter Summary ---
Author Organization [facility] Address [address] [place] [address] Care Team Providers Care Medical Data Entry Clerk Name Role Phone Conchita Aden MD Primary Care Provider Encounter Details Date Type Department Care Team (Late Contact Info) Description 10/22/2024 Abstract [facility] OB [address] [facility] [place] [id number] David Ewing, DO [address] [facility] [address] Obando, [facility]11 Social History Tobacco Use Types [...] filedocumented in this encounter Care Teams Medical Data Entry Clerk Relationship Specialty Start Date End Date Conchita Aden MD PCP - General Family Medicine 11/07/24 documented as of this encounter
--- OUTSIDE RECORDS SUMMARY | 2025-04-22 16:22 | XMS_ITS | Encounter Summary ---
Author Organization [facility] Address [address] [place] [address] Phone Care Team Providers Care Caul Puller Name Role Phone Sol Keita CharlesJanet RUCHI Unavailable June Preston MD Unavailable Oscar Rodriguez MD Unavailable [phone] Generic Provider, No Assigned Pcp Primary Car e Provider Unavailable Diane Min RN Unavailable Unavailable June Preston MD Unavailable Conchita Aden MD Primary Care Provider [phone] Diane Min RN Unavailable Unavailable Earlene Eubanks RN Unavailable Encounter Details Date Type Department Care Team (Late st Contact Info) Description 02/19/2024 Scanned Document [facility] [address] [place] [address] Scanning, Generic Provider Social History Tobacco Use [...] in a alf (including now)? No 02/16/2024 Comments Unknown Sex [...] Description 05/17/2025 3:30 PM EDT Office Visit [facility] [address] [facility] [address] [place] [address] Kervin Fair MD 125 [address] [facility] Office [facility], [facility] [address] [place], [place] [address] 07/14/2025 1:00 PM EDT Office Visit [facility] 703 [facility] [address] [place] [address] Oscar Rodriguez MD 7[address] [facility] 2, [address] [place] [address] 09/26/2025 12:[address] [facility] [place] [address] [place] [facility] [address] 09/26/2025 1:00 PM EST Office Visit [facility] 125 [address] [facility] [address] [place] [address] June Preston MD 125 [address] [facility] Office Bldg, [address] [place] [address] documented as of this encounter Visit Diagnoses [...] documented as of this encounter Care Teams Caul Puller Relationship Specialty Start Date End Date Generic Provider, No Assigned Pcp, NONE [facility] [place] [address] PCP - General Dairy Farm Manager 08/08/24 11/10/24 Conchita Aden MD [address] [place] [address] [place] [address] PCP - General Family Medicine 11/11/24 Sol Keita, MAINTENANCE SUPERVISOR ELECTRICAL Machine Adjuster HelperMultimedia Services Coordinator 02/19/24 05/17/24 June Preston MD 125 [address] [facility], [address] [place] [address] Consulting Physician Cardiology 02/19/24 02/29/24 Oscar Rodriguez MD [address] [place] [address] 2, [address] [place] [address] Consulting Physician Cardiology 02/19/24 02/29/24 Diane Min, home care giverMultimedia Services Coordinator 09/05/24 12/06/24 June Preston MD [address] [facility], [address] [place] [address] Business System Consultant Electrophysiology 09/13/24 Diane Min, home care giverMultimedia Services Coordinator 01/16/25 01/31/25 Earlene Eubanks, PAULA Machine Adjuster HelperMultimedia Services Coordinator 04/17/25 documented as of this encounter
--- OUTSIDE RECORDS SUMMARY | 2025-04-22 16:22 | XMS_ITS | Encounter Summary ---
Author Organization [facility] Address [address] [place] [address] Care Team Providers Care Broiler Supervisor Name Role Phone Conchita Aden MD Primary Care Provider [phone] Encounter Details Date Type Department Care Team (Late st Contact Info) Description 03/27/2025 External Result Encounter [facility] External Department Unsolicited Lorrie Winn MD [address] [facility] [address] [place] [address] Social History Tobacco Use Types Packs/Day Years [...] Moreno M.D. 03/27/2025 11:14 AM Dictation Location: [facility] Tech: [employer] Transcribed By: PWS 03/27/25 1114 Dictated By: Gerber Moreno II, MD 03/27/25 1111 Signed By: <Electronically signed by Gerber Moreno II, MD in OV> 03/27/25 1114 Narrative 03/27/2025 11:16 AM EDT [facility] [place] [address] Ultrasound Report Signed Patient: Latanya Martinez MR#: [id number] : 1960 Acct:[id number] Age/Sex: 64 / F ADM Date: 03/26/25 Loc: Room: [address] [place] [address] Type: ADM IN Attending Dr: Yonis Covington [...] Procedure Note Gerber Moreno MD - 03/27/2025 [facility] [place] [address] [place] [address] Ultrasound Report Signed Patient: Latanya Martinez AMR#: [id number] : [id number]:[id number] Age/Sex: 64 / FADM Date: 03/26/25 Loc: Room: [id number]: ADM IN Attending Dr: Yonis Covington DO [...] Moreno M.D. 03/27/2025 11:14 AM Dictation Location: [place] [address] Tech: [employer] Transcribed By: [facility] 03/27/25 1114 Dictated By: Gerber Moreno II, MD 03/27/25 1111 Signed By: <Electronically signed by Gerber Moreno II, MD inOV> 03/27/25 1114 us Lorrie Winn MD IMG US PROCEDURES Final Result documented in this encounter Visit Diagnoses Not on filedocumented in this encounter Care Teams Broiler Supervisor Relationship Specialty Start Date End Date Conchita Aden MD PCP - General Family Medicine 11/07/24 documented as of this encounter
--- OUTSIDE RECORDS SUMMARY | 2025-04-22 16:22 | XMS_ITS | Encounter Summary ---
Author Organization [facility] Address [address] [place] [address] Care Team Providers Care Cutting Machine Tender Helper Name Role Phone Conchita Aden MD Primary Care Provider [phone] Encounter Details Date Type Department Care Team (Late Contact Info) Description 10/30/2024 Clinisync Result Encounter [facility] External Department Unsolicited Charity Gerard PA [address] [place] [address] [place] [address] Social History Tobacco Use Types [...] EST Narrative 10/31/2024 6:59 AM EST The [address] [address] Electrocardiograph Report Signed Patient: KING MORENO MR#: [id number] : 1960 Acct:[id number] Age/Sex: 63 / F ADM Date: 10/30/24 Loc: [place] 203-[address]: Parmjit Poon M.D. Ordering Physician: Charity Gerard Date of Service: 10/30/24 Procedure(s): ECG 12 lead Accession Number(s): [id number] cc: [facility] Test Date: 2024-10-30 Pat Name: KING MORENO Department: Room: - Gender: Female Health Workers: : 1960 Requested By: CONCHITA ADEN Order Number: [id number] Reading MD: FELIZ JENNINGS Measurements Intervals South Heart Rate: 94 P: 68 DC: 126 QRS: 56 QRSD: 84 T: 90 QT: 348 QTc: 399 Interpretive Statements 1100 Sinus rhythm 4068 Nonspecific Twave abnormality, can't exclude inferolateral ischemia 8102 Low QRS voltage in chest leads 9130 borderline ECG Compared to ECG 10/29/2024 16:19:34 No significant changes Electronically Signed On 10-31-2024 6:59:03 EST by FELIZ JENNINGS Dictated By: Feliz Jennings D.O. Signed By: 10/31/24 0659 DD/ 1500 TD/TT: Deburrer Strip: Procedure Note Radiology, Radiologist, MD - 10/31/2024 [place] [address] Electrocardiograph Report Signed Patient: KING MORENO AMR#: [id number] : 1Acct:[id number] Age/Sex: 63 / FADM Date: 10/30/24 Loc: [place] 203-[address]: Parmjit Poon M.D. Ordering Physician: Charity Gerard Date of Service: 10/30/24 Procedure(s): ECG 12 lead Accession Number(s): [id number] cc: The [facility] Test Date: 2024-10-30 Pat Name: KING MORENO Department: Room: - Gender: Female Health Workers: : 1960 Requested By: CONCHITA ADEN Order Number: [id number] Reading MD: FELIZ JENNINGS Measurements Intervals South Heart Rate: 94 P: 68 DC: 126 QRS: 56 QRSD: 84 T: 90 QT: 348 QTc: 399 Interpretive Statements 1100 Sinus rhythm 4068 Nonspecific Twave abnormality, can't exclude inferolateral ischemia 8102 Low QRS voltage in chest leads 9130 borderline ECG Compared to ECG 10/29/2024 16:19:34 No significant changes Electronically Signed On 10-31-2024 6:59:03 EST by FELIZ JENNINGS Dictated By: Feliz Jennings D.O. Signed By:10/31/24 0659 DD/ 1500 TD/TT: Deburrer Strip: Charity [facility] Final Result documented in this encounter Visit Diagnoses Not on filedocumented in this encounter Care Teams Cutting Machine Tender Helper Relationship Specialty Start Date End Date Conchita Aden MD PCP - General Family Medicine 11/07/24 documented as of this encounter
--- OUTSIDE RECORDS SUMMARY | 2025-04-22 16:22 | XMS_ITS | Encounter Summary ---
Author Organization [facility] Address [address] [place] [address] Phone Care Team Providers Care Top Lift Nailer Name Role Phone June Preston MD Unavailable Conchita Aden MD Primary Care Provider [phone] Encounter Details Date Type Department Care Team (Latest Contact Info) Description 04/14/2025 Travel Social History Tobacco Use Types Packs/Day [...] doctor or pharmacy? Never 01/08/2025 [facility] Utilities Answer Date Recorded In the past 12 months has [facility], gas, oil, or water [employer] [place] threatened to shut off services in your [...] How often do you attend zoroastrianism or pentecostalism serv ices? Patient declined 01/08/2025 Do you [...] Recorded Patient Health Questionnaire-2 Score 0 04/14/2025 [facility] - [...] 9:41 AM EDT Meka Colindres RN * [place] Suicide Severity Rating Scale (Screener/Recent Self-Report) Question [...] R N documented as of this encounter Plan of Treatment Upcoming Encounters Date Type Department Care Team (Late st Contact Info) Description 05/17/2025 3:30 PM EDT Office Visit [facility] [address] [facility] [address] [place] [id number] Kervin Fair MD [address] [facility] Office [facility], [facility] [address] [place] [address] 07/14/2025 1:00 PM EDT Office Visit [place] [address] [facility] [address] [place] [address] Oscar Rodriguez MD [address] [facility] 2, Steve [address] [place] [address] 09/26/2025 12:20 PM EST Appointment [facility] [address] [place] [address] 09/26/2025 1:00 PM EST Office Visit [facility] [address] [facility] [address] [place] [id number] June Preston MD [address] [facility] Office [facility], [address] [place], [place] [id number] documented as of this encounter Visit Diagnoses Not on filedocumented in this encounter Additional Health Concerns Assessment Noted Time PHQ-9 Depression Total Score: 9 01/23/20 22 11:33 AM EDT A fall risk assessment has been complete d for the patient 03/01/2024 12:30 PM EDT documented as of this encounter Care Teams Top Lift Nailer Relationship Specialty Start Date End Date Conchita Aden MD [address] [place] [address] [address] [place] [address] PCP - General Family Medicine 11/11/24 June Preston MD [address] [facility], [address] [place] [address] Nurse Wound Electrophysiology 09/13/24 documented as of this encounter
--- OUTSIDE RECORDS SUMMARY | 2025-04-22 16:22 | XMS_ITS | Encounter Summary ---
Author Organization [facility] Address [address] [place] [address] Care Team Providers Care Sba Business Development Officer Name Role Phone Conchita Aden MD Primary Care Provider [phone] Encounter Details Date Type Department Care Team (Late st Contact Info) Description 06/29/2023 External Result Encounter [facility] External Department Unsolicited Steve Combs, DO [address] [facility] [address] [place] [address] Social History Tobacco Use Types Packs/Day Years [...] Gerber Moreno M.D.06/29/2023 3:14 PM Dictation Location: [place] [address] Transcribed By: [facility] 06/29/23 1514 Dictated By: Gerber Moreno II, MD 06/29/23 1500 Signed By: <Electronically signed by Gerber Moreno II, MD in OV> 06/29/23 1514 Narrative 06/29/2023 3:36 PM EDT [facility] [place] [address] [place] [address] MRI Report Signed Patient: Latanya Martinez MR#: [id number] : 1960 Acct:[id number] Age/Sex: 62 / F ADM Date: 06/29/23 Loc: Room: Type: [facility] Attending Dr: Steve Combs DO Copies to: DO Darcie Draper MD, RES Ordering Provider: Steve Combs DO; Darcie Garcia MD, RES Date of Service: 06/29/23 MR/MR lumbar spine wo/w con: Other intervertebral disc degeneration, lumbar region;Spondy ([id number]) XR/XR pre/post mri xray: M51.36,M43.16 MR lumbar [...] Procedure Note Radiology, Radiologist, MD - 06/29/2023 [facility] [place] [address] [place] [address] MRI Report Signed Patient: Latanya Martinez AMR#: [id number] : 1960cct:[id number] Age/Sex: 62 / FADM Date: 06/29/23 Loc: Room:Type: [facility] Attending Dr: Steve Combs DO Copies to: DO Darcie Draper MD, RES Ordering Provider: Steve Combs DO; Darcie Garcia MD, RES Date of Service: 06/29/23 MR/MR lumbar spine wo/w con: Otherintervertebral disc degeneration, lumbar region;Spondy ([id number]) XR/XR pre/post mri xray: M51.36,M43.16 MR lumbar [...] and L4-5. The conus terminates at the L1-O8wxqachjqxmjdhl disc level. No epidural or paraspinous fluid [...] mild mass effect on the exiting left J4hwsvz roots. This are also present. No significant spinal canal stenosis. At L5-S1: There is a normal disc, central canal, and neural foramen. MR/MR lumbar spine wo/w con IMPRESSION: At L4-L5: There is a focal left foraminal disc extrusion contributing tomoderate to severe left neural foraminal narrowing with mild mass effect on the exiting left G1taqcw roots. This are also present. No significant [...] Gerber Moreno M.D.06/29/2023 3:14 PM Dictation Location: [place] [address] Transcribed By: [facility] 06/29/23 1514 Dictated By: Gerber Moreno II, MD 06/29/23 1500 Signed By: <Electronically signed by Gerber Moreno II, MD inOV> 06/29/23 1514 [place] Combs DO IMG MRI PROCEDURES Final Result documented in this encounter Visit Diagnoses Not on filedocumented in this encounter Care Teams Sba Business Development Officer Relationship Specialty Start Date End Date Conchita Aden MD PCP - General Family Medicine 11/07/24 documented as of this encounter
--- OUTSIDE RECORDS SUMMARY | 2025-04-22 16:23 | XMS_ITS | Encounter Summary ---
Author Organization [facility] Address [address] [place] [address] Phone Care Team Providers Care Consulting Services Manager Name Role Phone Tremaine West DO Primary Care Provider Ania Brothers FUNERAL DIRECTOR AND EMBALMER-EVP OPERATIONS Unavailable Unavailable June Preston MD Unavailable Sol Keita RESIDENTIAL INSTALLER Unavailable June Preston MD Unavailable Oscar Rodriguez MD Unavailable [phone] Generic Provider, No Assigned Pcp Primary Car e Provider Unavailable Diane Min RN Unavailable Unavailable June Preston MD Unavailable Conchita Aden MD Primary Care Provider [phone] Diane Min RN Unavailable Unavailable Earlene Eubanks RN Unavailable Encounter Details Date Type Department Care Team (Late st Contact Info) Description 07/22/2023 Scanned Document [facility] [address] [place] [address] Conversion, Onbase Social History Tobacco Use Types [...] Description 05/17/2025 3:30 PM EDT Office Visit [facility] [address] [facility] [address] [place] [address] Kervin Fair MD [address] [facility] [address], [address] [place] [address] 07/14/2025 1:00 PM EDT Office Visit [facility] [address] [place] [address] Oscar Rodriguez MD [address] [facility], [address] [place] [address] 09/26/2025 12:20 PM EST Appointment [facility] [address] [place] [facility] [address] 09/26/2025 1:00 PM EST Office Visit [facility] [address] [facility] [address] [place] [address] June Preston MD [address] [facility] [address], [address] [place] [address] documented as of this encounter Procedures Procedure [...] documented as of this encounter Care Teams Consulting Services Manager Relationship Specialty Start Date End Date Tremaine West DO [address], DO [address] [place] [address] PCP - General 01/22/22 11/05/23 Generic Provider, No Assigned Pcp, [place] [address] PCP - General Clamp Truck Driver 08/08/24 11/10/24 Conchita Aden MD [address] [place] [address] [place] [address] PCP - General Family Medicine 11/11/24 Ania Brothers, FUNERAL DIRECTOR AND EMBALMER-[employer] OPERATIONS [address], DO [facility] [address] [place] [address] Nurse Practitioner Cardiology 09/30/23 02/16/24 June Preston MD [address], DO [facility] [address] [place] [address] Criminal Justice Lawyer Cardiology 09/30/23 02/16/24 Sol Keita, RESIDENTIAL INSTALLER Drawer In HandMusic Minister 02/19/24 05/17/24 June Preston MD [address] [facility], [address] [place] [address] Consulting Physician Cardiology 02/19/24 02/29/24 Oscar Rodriguez MD [address] [place] [address] 2, [address] [place] [address] Consulting Physician Cardiology 02/19/24 02/29/24 Diane Min, ball winderMusic Minister 09/05/24 12/06/24 June Preston MD [address] [facility] Medical [facility], [address] [place] [address] Criminal Justice Lawyer Electrophysiology 09/13/24 Diane Min, ball winderMusic Minister 01/16/25 01/31/25 Earlene Eubanks, PAULA Drawer In HandMusic Minister 04/17/25 documented as of this encounter
--- OUTSIDE RECORDS SUMMARY | 2025-04-22 16:23 | XMS_ITS | Patient Health Record ---
Author Organization [facility] [place] Address [address] [place] [address] Care Team Providers Care Engine House Helper Name Role Phone Conchita Aden Primary Care Provider Unavailnii e Results Component Value Reference Range Notes INFLUENZA A AND B AG Reviewed date:10/31/2024 08:21:23 PM Interpretation: Performing Lab: Notes/Report: [facility] , Influenza Virus A Antigen Negative [...] Performing Lab: see note ML - The [facility] LB Prothrombin Time INR Reviewed date:10/31/2024 08:21:23 PM Interpretation: Performing Lab: Notes/Report: [facility] , Prothrombin Time 64.4 9.0-11.6 sec RESULTS CALLED TO SUSSY CANO RN @BY Dilia Wilks at 2127 INR 7.41 2.5-3.5 RECURRENT THROMBOSIS 2.0-3.0 CONDITIONS NOT LISTED BELOW Lashaun at 2127 2.5-3.5 FOR PROSTHETIC HEART VALVE REPLACEMENT DESIRED INR: RESULTS CALLED TO SUSSY CANO RN @BY Dilia Nolasco Performing Lab: see note ML - The [facility] LB SARS-CoV-2 Ag* Reviewed date:10/31/2024 08:21:23 PM Interpretation: Performing Lab: Notes/Report: [facility] , SARS-CoV-2 Ag NEGATIVE NEGATIVE viruses or pathogens. The emergency use of this test is authorized for the duration of the declaration that Act, 21 U.S.C. 360bbb-3(b)(1), unless the declaration is (EUA) for use by authorized laboratories certified under the detection of proteins from SARS-CoV-2, not for any other and/or diagnosis of Covid-19 under section 564(b)(1) of the complexity testing. This test has been authorized only for This test has not been FDA cleared or approved, but has been authorized by the FDA under an Emergency Use Authorization CLIA that meet the requirements to perform moderate or high circumstances exist justifying the authorization of emergency use of in vitro diagnostic tests for detection terminated or authorization is revoked sooner. Performing Lab: see note ML - The [facility] LB LACTATE or LACTIC ACID Reviewed date:10/31/2024 08:21:23 PM Interpretation: Performing Lab: Notes/Report: [facility] , Lactate/Lactic Acid 1.7 0.4-2.0 mmol/L Performing Lab: see note ML - [facility] LB Troponin I High Sensitivity Reviewed date:10/31/2024 08:21:23 PM Interpretation: Performing Lab: Notes/Report: [facility] , Troponin I High Sensitivity 8.6 4.0-51.3 pg/mL REFERENCE LIMIT (URL) OF TROPONIN, DEFINED THE 99TH CUT-OFF POINTS HAVE BEEN ESTABLISHED BASED ON THE FOURTH NOTE: HIGH-SENSITIVITY TROPONIN ASSAY IS NOT INTENDED TO BE HAS BEEN CONFIRMED THE DECISION THRESHOLD FOR DE DIAGNOSIS. UNIVERSAL DEFINITION OF MYOCARDIAL INFARCTION. THE UPPER 99TH PERCENTILE = 51.4 PG/ML USED IN ISOLATION BUT SHOULD BE INTERPRETED IN CONJUNCTION WITH OTHER DIAGNOSTIC AND CLINICAL INFORMATION. PERCENTILE OF cTnI DISTRIBUTION IN A REFERENCE POPULATION, Performing Lab: see note ML - The [facility] LB CBC AUTO DIFF Reviewed date:10/31/2024 08:21:23 PM Interpretation: Performing Lab: Notes/Report: [facility] , White Blood Count 14.0 4.0-11.0 [...] Performing Lab: see note ML - The [facility] LB PROF 14(COMP METB) Reviewed date:10/31/2024 08:21:23 PM Interpretation: Performing Lab: Notes/Report: [facility] , Sodium 136 136-145 mmol/L Potassium [...] Ratio 0.6 Performing Lab: see note - [facility] LB Prothrombin Time INR Reviewed date:10/31/2024 08:21:23 PM Interpretation: Performing Lab: Notes/Report: [facility] , Prothrombin Time 25.0 9.0-11.6 sec INR 2.59 DESIRED INR: 2.0-3.0 CONDITIONS NOT LISTED BELOW 2.5-3.5 FOR PROSTHETIC HEART VALVE REPLACEMENT 2.5-3.5 RECURRENT THROMBOSIS Performing Lab: see note - [facility] LB XR chest 2V Reviewed date:11/02/2024 03:17:53 PM Interpretation: Performing Lab: Notes/Report: Source Facility: [place] [address] XRay Report Signed Patient: KING MORENO MR#: [id number] : 1960 Acct:[id number] Age/Sex: 63 / F ADM Date: 10/30/24 Loc: [place] 203-[address]: Samuel Snowden M.D. Ordering Physician: Samuel Snowden M.D. Date of Service: 11/01/24 Procedure(s): XR chest 2V Accession Number(s): [id number] cc: Conchita Aden M.D.; Samuel Snowden M.D. [place] [address] Patient Name: KING MORENO MRN: [id number] date: 1960 Sex: F Assigned Patient Location: [place] Current Patient Location: [place] Accession/Order Number: [id number] Exam Date: 11/01/2024 09:30 Report Date: 11/01/2024 [...] Signed By: 11/01/24 1002 DD/ 1000 TD/TT: Special Education Inclusion Teacher: [place] [address] XRay Report Signed Patient: NANETTE MORENO MR#: [id number] : 1960 Acct:[id number] Age/Sex: 63 / F ADM Date: 10/30/24 Loc: [place] 203-[address]: Fredi Snowden M.D. Ordering Physician: Samuel Snowden M.D. Date of Service: 11/01/24 Procedure(s): XR [address] 2V Accession Number(s): [id number] cc: Conchita Aden M.D.; Samuel Snowden M.D. [place] [id number] Patient Name: KING MORENO MRN: [id number] date: 1960 Sex: F [place]igned Patient Location: [place] Current Patient Location: [place] Accession/Order Numb er: [id number] Exam Date: 09:30 Report Date: 11/01/2024 10:00 [...] Signed By: 11/01/24 1002 DD/ 1000 TD/TT: Special Education Inclusion Teacher: CBC AUTO DIFF Reviewed date:11/02/2024 03:17:53 PM Interpretation: Performing Lab: Notes/Report: [facility] , White Blood Count 20.8 4.0-11.0 [...] Performing Lab: see note ML - The [facility] LB PROF 14(COMP METB) Reviewed date:11/02/2024 03:17:53 PM Interpretation: Performing Lab: Notes/Report: [facility] , Sodium 139 136-145 mmol/L Potassium [...] Ratio 0.6 Performing Lab: see note - [facility] Prothrombin Time INR Reviewed date:11/02/2024 03:17:53 PM Interpretation: Performing Lab: Notes/Report: [facility] , Prothrombin Time 12.9 9.0-11.6 sec INR 1.24 2.5-3.5 FOR PROSTHETIC HEART VALVE REPLACEMENT DESIRED INR: 2.5-3.5 RECURRENT THROMBOSIS 2.0-3.0 CONDITIONS NOT LISTED BELOW Performing Lab: see note [facility] MAGNESIUM Reviewed date:11/02/2024 03:17:53 PM Interpretation: Performing Lab: Notes/Report: [facility] , Magnesium 2.0 1.8-2.4 mg/dL Performing Lab: see note - [facility] Prothrombin Time INR Reviewed date:11/02/2024 03:17:53 PM Interpretation: Performing Lab: Notes/Report: [facility] , Prothrombin Time 11.9 9.0-11.6 sec INR 1.14 2.0-3.0 CONDITIONS NOT LISTED BELOW 2.5-3.5 FOR PROSTHETIC HEART VALVE REPLACEMENT DESIRED INR: 2.5-3.5 RECURRENT THROMBOSIS Performing Lab: see note [facility] PROF 14(COMP METB) Reviewed date:11/02/2024 03:17:53 PM Interpretation: Performing Lab: Notes/Report: [facility] , Sodium 135 136-145 mmol/L Potassium [...] 0.7 Performing Lab: see note ML - [facility] LB CBC AUTO DIFF Reviewed date:11/02/2024 03:17:53 PM Interpretation: Performing Lab: Notes/Report: [facility] , White Blood Count 16.1 4.0-11.0 [...] 10 3/uL Performing Lab: see note - [facility] BNP Reviewed date:11/02/2024 03:17:53 PM Interpretation: Performing Lab: Notes/Report: [facility] , NT Pro B Type Natriuretic Pept 398.0 <=900.0 pg/mL Performing Lab: see note - [facility] Troponin I High Sensitivity Reviewed date:10/30/2024 08:29:22 PM Interpretation: Performing Lab: Notes/Report: [facility] , Troponin I High Sensitivity 6.0 4.0-51.3 pg/mL USED IN ISOLATION BUT SHOULD BE INTERPRETED IN CONJUNCTION 99TH PERCENTILE = 51.4 PG/ML UNIVERSAL DEFINITION OF MYOCARDIAL INFARCTION. THE UPPER CUT-OFF POINTS HAVE BEEN ESTABLISHED BASED ON THE FOURTH NOTE: HIGH-SENSITIVITY TROPONIN ASSAY IS NOT INTENDED TO BE HAS BEEN CONFIRMED THE DECISION THRESHOLD FOR DE PERCENTILE OF cTnI DISTRIBUTION IN A REFERENCE POPULATION, DIAGNOSIS. REFERENCE LIMIT (URL) OF TROPONIN, DEFINED THE 99TH WITH OTHER DIAGNOSTIC AND CLINICAL INFORMATION. Performing Lab: see note - [facility] LB LACTATE or LACTIC ACID Reviewed date:10/30/2024 08:29:21 PM Interpretation: Performing Lab: Notes/Report: [facility] , Lactate/Lactic Acid 3.0 0.4-2.0 mmol/L RESULT S CALLED TO SARA ZAVALETA Performing Lab: see note - [facility] BNP Reviewed date:10/30/2024 08:29:21 PM Interpretation: Performing Lab: Notes/Report: [facility] , NT Pro B Type Natriuretic Pept 352.0 <=900.0 pg/mL Performing Lab: see note - [facility] LB Reason For Referral No Information Problems Problem Type SNOMED Code ICD Code Onset Dates Problem Status W/U Status Risk Notes Problem Essential hypertension (56102873) Benign essential HTN (I10) Active confirmed Problem Bipolar 1 disorder (646976344) Bipolar 1 disorder (F31.9) Active confirmed Problem Diabetes mellitus (E11.9) Active confirmed Plan Of Treatment Next Appt Details Provider Name:Mariah Logan , 04/25/2025 01:30:00 PM, [address] [place], [address], Insurance Providers Payer Name Payer Address Payer Phone Subscriber Number Group Number Insured Name Patient Relationship to Insured Coverage Start Date Coverage End Date [employer]ILIAN[employer] DUAL ADV PRIMARY MEDICARE [address] [place] [address] [id number] King Moreno Self - patient is the insured 3 MEDICAID [place] 2ND INS [address] OFFICE OF [place], [place] [id number] King Moreno Self - patient is the insured
[2025-04-22 16:33] LABS: Basophils Absolute Auto 0.1 10^3/uL (0.0-0.1); Basophils Percent Auto 0.7 % (0.2-2.0); Eosinophils Absolute Auto 0.1 10^3/uL (0.0-0.7); Eosinophils Percent Auto 1.3 % (0.9-7.0); Hematocrit 26.1 % (36.0-48.0); Immature Granulocytes Abs Auto 0.03 10^3/uL (0.00-0.03); Immature Granulocytes Pct Auto 0.3 % (0.0-0.5); Lymphocytes Absolute Auto 2.9 10^3/uL (1.2-3.8); Lymphocytes Percent Auto 32.5 % (20.5-60.0); Mean Corpuscular HGB Conc 30.7 g/dL (29.9-35.2); Mean Corpuscular Hemoglobin 21.3 pg (26.7-34.0); Mean Corpuscular Volume 69.4 fL (81.0-99.0); Mean Platelet Volume 10.8 fL (9.5-13.5); Monocytes Absolute Auto 0.6 10^3/uL (0.3-0.8); Monocytes Percent Auto 6.6 % (1.7-12.0); Neutrophils Absolute Auto 5.2 10^3/uL (1.4-6.5); Neutrophils Percent Auto 58.6 % (43.0-75.0); Platelet Count 315 10^3/uL (150-450); Red Blood Count 3.76 10^6/uL (4.20-5.40); Red Cell Distribution Width 19.5 % (11.0-15.0); White Blood Count 8.9 10^3/uL (4.0-11.0)
--- NOTE | 2025-04-22 16:33 | ED.ABDPAIN1 ---
HPI - Abdominal Pain General Chief Complaint: Abdominal Pain Stated Complaint: GI BLEED Time Seen by Provider: 04/22/25 15:59 Source: patient Mode of arrival: walk-in Limitations: no limitations History of Present Illness HPI narrative: 64-year-old female to the emergency department with chief complaint of GI bleed. Patient reports that she began to have dark tarry stools last night. She has had some upper abdominal discomfort and early satiety for the last few days. She reports some mild dizziness. She reports mild nausea without vomiting. No fever, sweats, chills.She has a history of atrial fibrillation and takes Xarelto, last dose this morning. Related Data Home Medications ?Medication ?Instructions ?Recorded ?Confirmed amiodarone 200 mg tablet 200 mg PO Q24H 10/22/24 04/22/25 lansoprazole 30 mg capsule,delayed 30 mg PO .ACB 10/22/24 04/22/25 release meclizine 25 mg tablet 25 mg PO BID PRN dizziness 10/22/24 04/22/25 melatonin 5 mg tablet 5 mg PO DAILY 10/22/24 04/22/25 metoprolol succinate 25 mg 25 mg PO DAILY 10/22/24 04/22/25 tablet,extended release 24 hr ranolazine 500 mg tablet,extended 500 mg PO Q12H 10/22/24 04/22/25 release,12 hr rosuvastatin 10 mg tablet 20 mg PO DAILY 10/22/24 04/22/25 magnesium 200 mg tablet 200 mg PO BID 10/30/24 04/22/25 lisinopril 5 mg tablet 5 mg PO .QD 10/31/24 04/22/25 baclofen 10 mg tablet 10 mg PO TID PRN muscle spasm 02/01/25 04/22/25 ferrous sulfate 324 mg (65 mg 324 mg PO DAILY 04/09/25 04/22/25 iron) tablet,delayed release rivaroxaban 10 mg tablet (Xarelto) 10 mg PO Q24H 04/09/25 04/22/25 ropinirole 1 mg tablet 1 mg PO HS 04/09/25 04/22/25 sertraline 25 mg tablet 25 mg PO Q24H 04/09/25 04/22/25 spironolactone 25 mg tablet 25 mg PO .Q24 06/08/25 06/21/25 canagliflozin 300 mg tablet 300 mg PO DAILY 04/22/25 04/22/25 (Invokana) pantoprazole 40 mg tablet,delayed 40 mg PO DAILY 04/22/25 04/22/25 release quetiapine 200 mg tablet 200 mg PO DAILY 04/22/25 04/22/25 ropinirole 2 mg tablet 2 mg PO BEDTIME 04/22/25 04/22/25 Allergies Allergy/AdvReac Type Severity Reaction Status Date / Time No Known Drug Allergies Allergy Verified 04/22/25 16:00 Review of Systems ROS Status of ROS 10 or more systems reviewed and unremarkable except as noted in history and below [facility] Medical History (Updated 04/22/25 @ 18:43 by Thanh Turcios MD) GERD without esophagitis ?K21.9 - Gastro-esophageal reflux disease without esophagitis (ICD-10) Bulging lumbar disc ?M51.369 - Other intervertebral disc degeneration, lumbar region without mention of lumbar back pain or lower extremity pain (ICD-10) Restless leg syndrome ?G25.81 - Restless legs syndrome (ICD-10) Restless leg syndrome ?G25.81 - Restless legs syndrome (ICD-10) Pacemaker ?Z95.0 - Presence of cardiac pacemaker (ICD-10) Acute GI bleeding ?K92.2 - Gastrointestinal hemorrhage, unspecified (ICD-10) Elevated INR ?R79.1 - Abnormal coagulation profile (ICD-10) Pneumonia ?J18.9 - Pneumonia, unspecified organism (ICD-10) Dyspnea ?R06.00 - Dyspnea, unspecified (ICD-10) Dizziness ?R42 - Dizziness and giddiness (ICD-10) Diabetes ?E11.9 - Type 2 diabetes mellitus without complications (ICD-10) Bipolar 1 disorder, depressed ?F31.9 - Bipolar disorder, unspecified (ICD-10) HTN (hypertension) ?I10 - Essential (primary) hypertension (ICD-10) High cholesterol ?E78.00 - Pure hypercholesterolemia, unspecified (ICD-10) Afib ?I48.91 - Unspecified atrial fibrillation (ICD-10) Surgical History H/O tubal ligation ?Z98.51 - Tubal ligation status (ICD-10) Hx of cholecystectomy ?Z90.49 - Acquired absence of other specified parts of digestive tract (ICD-10) Status post other internal cardiac defibrillator procedure ?Z95.0 - Presence of cardiac pacemaker (ICD-10) History of bowel resection ?Z90.49 - Acquired absence of other specified parts of digestive tract (ICD-10) Family History Father Heart attack Brother Heart attack Sister Heart attack Diabetes Son Diabetes Social History Within the past year, how often did you have a drink containing alcohol: never Within the past year, how often did you have six or more drinks on one occasion: never Score interpretation: A score less than 3 is consistent with normal alcohol consumption. 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 GENERAL: Well developed, well appearing adult in no acute distress. NEURO: Alert and oriented. Moves all extremities. Face is symmetric and expressive. EYES: PERRL. No scleral icterus or conjunctival injection. No discharge. HENT: Normocephalic, atraumatic. Hearing is grossly intact. Nares grossly patent and without discharge. Mucous membranes moist. NECK: No JVD. Patient moves neck without restriction. CARDIO: Rhythm regular. Normal rate. No murmur, rub, or gallop. Pulses equal bilaterally in the upper and lower extremity. No lower extremity edema. PULM: Lungs clear to auscultation in all goss. No wheezes, rales, or rhonchi. No conversational dyspnea. No splinting, stridor, or accessory muscle use. GI/: Abdomen is soft. Mild epigastric tenderness. Normoactive bowel sounds. EXTREMITIES: Symmetric muscle bulk. No joint swelling. No clubbing, cyanosis, or deformity. SKIN: Warm and dry. Normal turgor. No rash or lesions appreciated. PSYCH: Mood, affect, and interaction is appropriate to the setting. Constitutional Vital Signs, click to edit/add: Last Vital Signs Temp 97.4 F L 04/22/25 16:00 Pulse 64 04/22/25 18:10 Resp 16 04/22/25 18:10 BP 109/75 04/22/25 18:00 Pulse Ox 99 04/22/25 16:00 O2 Del Method Room Air 04/22/25 16:00 Course Vital Signs Vital signs: Vital Signs Temperature 97.4 F L 04/22/25 16:00 Pulse Rate 66 04/22/25 16:00 Respiratory Rate 16 04/22/25 16:00 Blood Pressure 139/72 04/22/25 16:00 Pulse Oximetry 99 04/22/25 16:00 Oxygen Delivery Method Room Air 04/22/25 16:00 Temperature 97.4 F L 04/22/25 16:00 Pulse Rate 64 04/22/25 18:10 Respiratory Rate 16 04/22/25 18:10 Blood Pressure 109/75 04/22/25 18:00 Pulse Oximetry 99 04/22/25 16:00 Oxygen Delivery Method Room Air 04/22/25 16:00 MDM - Abdominal Pain MDM Narrative Medical decision making narrative: 64-year-old female to the emergency department chief complaint of epigastric pain, early satiety and now dark tarry stools. Vital stable, the patient is afebrile. Basic labs are ordered, CTA. Protonix. Patient agrees with this plan. Patient reports she follows with gastroenterology at [facility]. Lab work reviewed and noted. She does have an elevated troponin level. CT scan without a blush however there is a question of some contrast material in the colon. She did not have any further dark tarry stools during her ED stay. Discussed the case with Dr. Poon. Given the elevated troponin level and lack of GI coverage at our facility recommendation for transfer. A call was placed to [facility] to engage transfer. Care was signed out to Dr. Red. Medical Records Attestation: I reviewed the patient's medical records. Lab Data Attestation: I reviewed the patient's lab results. Labs: Lab Results 04/22/25 04/22/25 Range/Units 16:25 17:10 WBC 8.9 (4.0-11.0) 10^3/uL RBC 3.76 L (4.20-5.40) 10^6/uL Hgb 8.0 L (12.0-16.0) g/dL Hct 26.1 L (36.0-48.0) % MCV 69.4 L (81.0-99.0) fL MCH 21.3 L (26.7-34.0) pg MCHC 30.7 (29.9-35.2) g/dL RDW 19.5 H (11.0-15.0) % Plt Count 315 (150-450) 10^3/uL MPV 10.8 (9.5-13.5) fL Neut % (Auto) 58.6 (43.0-75.0) % Lymph % (Auto) 32.5 (20.5-60.0) % Zavala % (Auto) 6.6 (1.7-12.0) % Eos % (Auto) 1.3 (0.9-7.0) % Baso % (Auto) 0.7 (0.2-2.0) % Neut # (Auto) 5.2 (1.4-6.5) 10^3/uL Lymph # (Auto) 2.9 (1.2-3.8) 10^3/uL Zavala # (Auto) 0.6 (0.3-0.8) 10^3/uL Eos # (Auto) 0.1 (0.0-0.7) 10^3/uL Baso # (Auto) 0.1 (0.0-0.1) 10^3/uL Abs Immat Gran (auto) 0.03 (0.00-0.03) 10^3/uL Imm/Tot Granulo (auto) 0.3 (0.0-0.5) % PT 10.7 (9.0-11.6) sec INR 1.01 APTT 27.5 (22.3-36.2) sec Sodium 136 (136-145) mmol/L Potassium 4.0 (3.5-5.1) mmol/L Chloride 100 (98-107) mmol/L Carbon Dioxide 27.2 (21.0-32.0) mmol/L Anion Gap 12.8 BUN 7.0 (7.0-18.0) mg/dL Creatinine 0.65 (0.55-1.02) mg/dL Est GFR ( Amer) >60 (>=60 mL/min/1.73m^2) Est GFR (Non-Af Amer) >60 (>=60 mL/min/1.73m^2) BUN/Creatinine Ratio 10.8 Glucose 111 H (74-106) mg/dL Calcium 8.5 (8.5-10.1) mg/dL Total Bilirubin 0.2 (0.2-1.0) mg/dL AST 27 (15-37) U/L ALT 31 (14-59) U/L Alkaline Phosphatase 64 (46-116) U/L Troponin I High Sens 395.6 H* 356.1 H* (4.0-51.3) pg/mL Total Protein 6.3 L (6.4-8.2) g/dL Albumin 2.7 L (3.4-5.0) g/dL Globulin 3.6 g/dL Albumin/Globulin Ratio 0.8 Lipase 16.0 (16.0-77.0) U/L Imaging Data CT scan - abdomen: Attestation: I personally reviewed and interpreted this imaging study as follows: Radiologist's impression: See separate PACS document ECG Data Attestation: I personally reviewed and interpreted this ECG as follows: (EKG #1: Paced, no STEMI. Normal QTc. EKG #2: Paced, no STEMI: Normal QTc.) Critical Care Time Critical Care Time Critical Care Time: Yes Total Critical Care Time: 35 Attestation: Critical Care Procedure Note Authorized and Performed by: Thanh Turcios DO Total critical care time: 35 min Due to a high probability of clinically significant, life threatening deterioration, the patient required my highest level of preparedness to intervene emergently and I personally spent this critical care time directly and personally managing the patient. This critical care time included obtaining a history; examining the patient; pulse oximetry; ordering and review of studies; arranging urgent treatment with development of a management plan; evaluation of patient's response to treatment; frequent reassessment; and, discussions with other providers. This critical care time was performed to assess and manage the high probability of imminent, life-threatening deterioration that could result in multi-organ failure. It was exclusive of separately billable procedures and treating other patients and teaching time. Please see MDM section and the rest of the note for further information on patient assessment and treatment. Discharge Plan Discharge Patient Disposition: Still a Patient
[2025-04-22 16:57] LABS: Alanine Aminotransferase 31 U/L (14-59); Albumin Globulin Ratio 0.8; Albumin Level 2.7 g/dL (3.4-5.0); Alkaline Phosphatase 64 U/L (46-116); Anion Gap 12.8; Aspartate Amino Transferase 27 U/L (15-37); BUN Creatinine Ratio 10.8; Bilirubin Total 0.2 mg/dL (0.2-1.0); Calcium 8.5 mg/dL (8.5-10.1); Carbon Dioxide 27.2 mmol/L (21.0-32.0); Chloride 100 mmol/L (98-107); Estimated GFR (African America >60 (>=60 mL/min/1.73m^2); Estimated GFR (Non-African Ame >60 (>=60 mL/min/1.73m^2); Globulin 3.6 g/dL; Glucose 111 mg/dL (74-106); Sodium 136 mmol/L (136-145); Total Protein 6.3 g/dL (6.4-8.2)
[2025-04-22] MEDS: PANTOPRAZOLE SODIUM 40 MG VIAL IV (16:58)
[2025-04-22 16:59] LABS: Troponin I High Sensitivity 395.6 pg/mL (4.0-51.3)
--- NOTE | 2025-04-22 17:01 | ECG_ITS ---
The [facility] Test Date: 2025-04-22 Pat Name: KING MORENO Department: Room: - Gender: Female Biological Inspector: : 1960 Requested By: 1860 Order Number: [id number] MD: CROW MORRISON M.D. Measurements Intervals [place] Rate: 83 P: 47 WV: 128 QRS: 20 QRSD: 88 T: 37 QT: 406 QTc: 445 Interpretive Statements 26025 Electronic atrial pacemaker 58716 Electronic ventricular pacemaker 3114 Cannot rule out anterior myocardial infarction, age undetermined 0104 ELECTRODE(S) DETACHED ... Repeat ECG is requested 9150 abnormal ECG Compared to ECG 04/22/2025 16:24:12 No significant changes Electronically Signed On 04-23-2025 22:04:12 EDT by CROW MORRISON M.D.
[2025-04-22 17:02] LABS: INR 1.01; Partial Thromboplastin Time 27.5 sec (22.3-36.2); Prothrombin Time 10.7 sec (9.0-11.6)
[2025-04-22 17:45] LABS: Troponin I High Sensitivity 356.1 pg/mL (4.0-51.3)
[2025-04-22 19:00] LABS: Internal Control Within Normal Limits; Occult Blood Negative
--- NOTE | 2025-04-23 00:21 | PC.NURSE ---
[facility] arrives at this time for transport.
== END 2025-04-23 00:27 | disposition short-term general hospital (02) ==
PROVIDERS: Student in an Organized Health Care Education/Training Program; Emergency Provider Internal Medicine; PCP Nurse Practitioner Family
DX: K92.2 Gastrointestinal hemorrhage, unspecified (principal); R79.89 Other specified abnormal findings of blood chemistry; I48.91 Unspecified atrial fibrillation; Z79.01 Long term (current) use of anticoagulants; Z98.51 Tubal ligation status; Z90.49 Acquired absence of other specified parts of digestive tract; Z95.0 Presence of cardiac pacemaker; F17.200 Nicotine dependence, unspecified, uncomplicated
CPT/HCPCS: 36415; 74174; 80053; 83690; 84484; 85025; 85610; 85730; 93005; 96374; 99285; G0328; Q9967

== ENCOUNTER 2025-05-01 08:28 | Outpatient (RCR) | payer MEDICARE, MEDICAID, SELFPAY ==
[2025-05-01 13:38] VITALS: BP 110/74; PULSE 80; TEMP 36.4; O2SAT 97
[2025-05-01] MEDS: FERUMOXYTOL 510 MG in 0.9 % SODIUM CHLORIDE 100 ML 234 MG IV (13:45)
== END 2025-05-01 23:59 | disposition home or self-care (01) ==
LOC: HEMC 08:28
PROVIDERS: PCP Nurse Practitioner Family; Visit Provider Internal Medicine Hematology & Oncology
DX: D50.9 Iron deficiency anemia, unspecified (principal); K90.9 Intestinal malabsorption, unspecified; Z90.49 Acquired absence of other specified parts of digestive tract; Z95.5 Presence of coronary angioplasty implant and graft; F17.210 Nicotine dependence, cigarettes, uncomplicated; I48.91 Unspecified atrial fibrillation; Z79.01 Long term (current) use of anticoagulants; R55 Syncope and collapse
CPT/HCPCS: 96365; G0463; Q0138

== ENCOUNTER 2025-05-08 07:33 | Outpatient (RCR) | payer MEDICARE, MEDICAID, SELFPAY ==
[2025-05-08 13:14] VITALS: BP 114/74; PULSE 80; TEMP 36.6; O2SAT 95
--- NOTE | 2025-05-08 13:34 | PC.NURSE ---
2 prior attempts per DClinker
== END 2025-06-01 23:59 | disposition home or self-care (01) ==
LOC: HEMC 07:33
PROVIDERS: PCP Nurse Practitioner Family; Visit Provider Internal Medicine Hematology & Oncology
DX: D50.9 Iron deficiency anemia, unspecified (principal); K90.9 Intestinal malabsorption, unspecified
CPT/HCPCS: 96365; Q0138

== ENCOUNTER 2025-06-07 13:53 | Outpatient (OUT) | payer MEDICARE, MEDICAID, SELFPAY ==
--- OUTSIDE RECORDS SUMMARY | 2024-09-16 11:00 | XMS_ITS ---
Author Organization [facility] Address [address] [facility] [place] [address] Care Team Providers Care Arc Cutter Plasma Arc Name Role Phone Darcie Lacey Primary Care Provider Janna Jackson Unavailable [phone] REASON FOR VISIT chronic f/u Encounters Encounter Location Date Provider Diagnosis [facility] [address] [facility] [address] 09/16/2024 Darcie Lacey Plan Of Treatment No Information Progress Notes * KING MORENO ADOB:[birth year] (64 yo F)Acc No.[id number]:09/16/2024 Progress Notes Patient: KING KWONG Appointment Provider: Juanita ALCEY MD :1960 A ge:63 Y S ex:Female Date:09/16/2024 Address:[address] [place], [place] [phone] Subjective: * Chief Complaints: * 1 . Chronic f/u. * Medical History: Objective: * Vitals: Assessment: Plan: * Treatment: * Images: * Electronic signature of Sherly Lacey MD on 06/07/2025 at 01:57 PM EDT Sign off status: Pending * Appointment Provider: Juanita LACEY MD Date: 11/16/2023 Generated for G[place] ng/Facliftong/eTransmitting on: 0 06/07/2025 01:57 PM EDT
--- OUTSIDE RECORDS SUMMARY | 2025-04-25 09:30 | XMS_ITS ---
Author Organization The [facility] in [place] Address [address] [place] [address] Care Team Providers Care Netbackup Administrator Name Role Phone Conchita Aden Primary Care Provider Unavailabl Mariah Stuart Unavailable [phone] REASON FOR VISIT New PT Hem Encounters Encounter Location Date Provider Diagnosis The [facility] [address] [place] [address] 04/25/2025 Mariah Logan Plan Of Treatment Next Appt Details Provider Name:Mariah Logan , 06/20/2025 01:30:00 PM, [address] [place], [address], Progress Notes * Latanya MORENODOB:1960 (64 yo F)Acc No.[id number]:04/25/2025 UNLOCKED PROGRESS NOTE Progress Notes Patient: Latanya KWONG Provider: Santosh Logan M.D. :1960 A ge:64 Y S ex:Female Date:04/25/2025 Address:[address] [place], [place] [address] Pcp:Conchita Aden Subjective: * Chief Complaints: * 1 . New PT Hem. * Medical History: Objective: * Vitals: Assessment: Plan: * Treatment: * * Electronic signature of Cedric Logan MD, [id number] on 06/07/2025 at 01:56 PM EDT Sign off status: Pending Visit Status: C ANC (Cancelled) * Provider: Santosh Logan M.D. Date: 0 04/25/2025 Generated for Brandon williamson/Maverick/Sloane on: 0 06/07/2025 01:56 PM EDT
--- OUTSIDE RECORDS SUMMARY | 2025-04-25 09:30 | XMS_ITS ---
Author Organization The [facility] in [place] Address [address] [place] [address] Care Team Providers Care Signal Operator Name Role Phone Conchita Aden Primary Care Provider Unavailabl Mariah Stuart Unavailable [phone] REASON FOR VISIT New PT Hem Encounters Encounter Location Date Provider Diagnosis The [facility] [address] [place] [address] 04/25/2025 Mariah Logan Plan Of Treatment Next Appt Details Provider Name:Mariah Logan , 06/20/2025 01:30:00 PM, [address] [place], [address], Progress Notes * Latanya MORENODOB:1960 (64 yo F)Acc No.[id number]:04/25/2025 UNLOCKED PROGRESS NOTE Progress Notes Patient: Latanya KWONG Provider: Santosh Logan M.D. :1960 A ge:64 Y S ex:Female Date:04/25/2025 Address:[address] [place], [place] [address] Pcp:Conchita Aden Subjective: * Chief Complaints: * 1 . New PT Hem. * Medical History: Objective: * Vitals: Assessment: Plan: * Treatment: * * Electronic signature of Cedric Logan MD, [id number] on 06/07/2025 at 01:57 PM EDT Sign off status: Pending Visit Status: P EN (Pending) * Provider: Santosh Logan M.D. Date: 0 04/25/2025 Generated for Brandon williamson/Maverick/Sloane on: 0 06/07/2025 01:57 PM EDT
--- OUTSIDE RECORDS SUMMARY | 2025-05-08 09:30 | XMS_ITS ---
Author Organization The [facility] in [place] Address [address] [place] [address] Care Team Providers Care Armed Security Professional Name Role Phone Conchita Aden Primary Care Provider Unavailabl Mariah Stuart Unavailable [phone] REASON FOR VISIT Ferumoxytol (Feraheme -Non-ESRD) Encounters Encounter Location Date Provider Diagnosis The [facility] On[facility] [address] [place] [address] 05/08/2025 Mariah Logan Plan Of Treatment Next Appt Details Provider Name:Mariah Logan , 06/20/2025 01:30:00 PM, [address] [place], [address], Progress Notes * Latanya MORENODOB:1960 (64 yo F)Acc No.[id number]:05/08/2025 UNLOCKED PROGRESS NOTE Progress Note Patient: Latanya KWONG Provider: Santosh Logan M.D. :1960 A ge:64 Y S ex:Female Date:05/08/2025 Address:[address] [place] [address] Pcp:Conchita Aden Subjective: * Chief Complaints: * 1 . Ferumoxytol (Feraheme -Non-ESRD). * Medical History: Objective: * Vitals: Assessment: Plan: * Treatment: * * Electronic signature of Cedric Logan MD, [id number] on 06/07/2025 at 01:58 PM EDT Sign off status: Pending Visit Status: P EN (Pending) * Provider: Santosh Logan M.D. Date: 0 05/08/2025 Generated for Brandon williamson/Maverick/Sloane on: 0 06/07/2025 01:58 PM EDT
--- OUTSIDE RECORDS SUMMARY | 2025-06-07 13:56 | XMS_ITS | Encounter Summary ---
Author Organization [facility] Address [address] [place] [address] Phone Care Team Providers Care Bricklayer Paving Brick Name Role Phone Generic Provider, No Assigned Pcp Primary Car e Provider Unavailable Diane Min RN Unavailable Unavailable June Preston MD Unavailable Conchita Aden MD Primary Care Provider [phone] Diane Min RN Unavailable Unavailable Earlene Eubanks RN Unavailable Encounter Details Date Type Department Care Team (Late st Contact Info) Description 11/02/2024 Scanned Document [facility] [address] [place] [place] [address] Scanning, Generic Provider Social History [...] any time in the past 12 m [facility], were you homeless or living in a alf (including now)? No 09/01/2024 Comments No Sex and Gender Information Value Date Recorded Sex Assigned at Not on file Legal Sex Female 10:34 AM EST Gender Identity Not on file Sexual Orientation Not on file documented as of this encounter Plan of Treatment Upcoming Encounters Date Type Department Care Team (Late st Contact Info) Description 07/14/2025 1:00 PM EDT Office Visit [facility] 703 [facility] [address] [place] [address] Oscar Rodriguez MD 703 [facility] 2, [address] [place] [address] 09/26/2025 12:20 PM EST Appointment [facility] [address] [place] [address] 09/26/2025 1:00 PM EST Office Visit [facility] [address] [facility] [address] [place] [address] June Preston MD [address] [facility] Medical Office [facility], [address] [place] [address] documented as of this encounter Visit Diagnoses [...] documented as of this encounter Care Teams Bricklayer Paving Brick Relationship Specialty Start Date End Date Generic Provider, [place] [address] PCP - General Ballroom Dance Instructor 08/08/24 11/10/24 Conchita Aden MD [address] [place] [address] PCP - General Family Medicine 11/11/24 Diane Min, cloth finishing range operatorField Captain 09/05/24 12/06/24 June Preston MD [address] [facility] Medical Office [facility], [facility] [address] [place] [address] Lens And Frames Prescription Clerk Electrophysiology 09/13/24 Diane Min, cloth finishing range operatorField Captain 01/16/25 01/31/25 Earlene Eubanks, PAULA NurserypersonField Captain 04/17/25 documented as of this encounter
--- OUTSIDE RECORDS SUMMARY | 2025-06-07 13:56 | XMS_ITS | Encounter Summary ---
Author Organization [facility] Address [address] [place] [address] Phone Care Team Providers Care Anesthesia Director Name Role Phone Generic Provider, No Assigned Pcp Primary Car e Provider Unavailable Diane Min RN Unavailable Unavailable June Preston MD Unavailable Conchita Aden MD Primary Care Provider [phone] Diane Min RN Unavailable Unavailable Earlene Eubanks RN Unavailable Encounter Details Date Type Department Care Team (Late st Contact Info) Description 10/30/2024 Scanned Document [facility] [address] [place] [place] [address] Scanning, Generic Provider Social History [...] in a senior living (including now)? No 09/01/2024 Comments No Sex and Gender Information Value Date Recorded Sex Assigned at Not on file Legal Sex Female 10:34 AM EST Gender Identity Not on file Sexual Orientation Not on file documented as of this encounter Plan of Treatment Upcoming Encounters Date Type Department Care Team (Late st Contact Info) Description 07/14/2025 1:00 PM EDT Office [facility] 703 [facility] [address] [place] [address] Oscar Rodriguez MD 703 [facility] 2, [address] [place] [address] 09/26/2025 12:20 PM EST Appointment [facility] [address] [place] [address] 09/26/2025 1:00 PM EST Office Visit [facility] [address] [facility] [address] [place] [address] June Preston MD [address] [facility] Medical Office [address], [address] [place] [address] documented as of this encounter Procedures Procedure Name Priority Date/Time Associated Diagnosis Comments OUTSIDE IMAGING SCAN 10/30/2024 documented in this encounter Results * OUTSIDE IMAGING SCAN (10/30/2024) Anatomical Region Laterality Modality Other Narrative 10/30/2024 Ordered by an unspecified provider. us Generic [...] documented as of this encounter Care Teams Anesthesia Director Relationship Specialty Start Date End Date Generic Provider, No [place] [address] PCP - General Environmental Maintenance Worker 08/08/24 11/10/24 Conchita Aden MD [address] [place] [address] [address] [place] [address] PCP - General Family Medicine 11/11/24 Diane Min, senior resident care directorTurntable Worker 09/05/24 12/06/24 June Preston MD [address] [facility] [address], [address] [place] [address] Marsh Buggy Operator Electrophysiology 09/13/24 Diane Min, senior resident care directorTurntable Worker 01/16/25 01/31/25 Earlene Eubanks, RN Melt Down Furnace OperatorTurntable Worker 04/17/25 documented as of this encounter
--- OUTSIDE RECORDS SUMMARY | 2025-06-07 13:57 | XMS_ITS | Patient Health Record ---
Author Organization [facility] Address [address] [place] [address] Care Team Providers Care Waistline Joiner Name Role Phone Darcie Garcia Primary Care Provider Janna Jackson Unavailable [phone] Nicole Benson Unavailable [phone] Wilson Hassan Unavailable [phone] Abdiel Mir Unavailable [phone] Emmanuel Stratton Unavailable [phone] Allergies No Known Allergies Reason For Referral No Information Medications Medication SIG (Take, Route, Frequency, Duration) Notes Start Date End Date Status OLANZapine 2.5 MG TAKE 1 TABLET BY MOUTH TWICE A DAY NEEDED FOR AGITATION Active Invokana 300 MG 1 tablet before the first meal of the day Orally Once a day; Duration: 90 days substitutions permitted Active Melatonin 5 MG 1 tablet in the evening Orally Once a day; Duration: 90 days Active Prevacid 30 MG 1 capsule before a meal Orally Once a day; Duration: 90 days Active Metoprolol Succinate 100 MG [...] tablet as needed Orally three times a day; Duration: 30 days Active QUEtiapine Fumarate 200 MG 1 tablet Orally Once a day; Duration: 90 days 09/07/2024 Active Ranolazine ER 500 MG TAKE 1 TABLET BY MOUTH TWICE A DAY FOR 30 DAYS; Duration: 90 Active Spironolactone 25 MG 1 tablet Orally Active Warfarin Sodium 2.5 MG 1 tablet Orally Once a day; Duration: 30 day(s) Active Aspir-81 81 MG 1 tablet Orally Once a day Active Lisinopril 5 MG 1 tablet Orally Once a day; Duration: 90 days 02/03/2011 Active Lurasidone HCl 60 MG 1 tablet with food Orally Once a day; Duration: 90 days Active Gabapentin 400 MG 1 capsule Orally Once a day; Duration: 30 days Active Social History Tobacco Use: [...] drug use. Lives with sister. + ETOH an d [...] 12/09/22 Currently taking medications for her depression. Problems Problem Type SNOMED Code ICD Code Onset Dates Problem Status W/U Status Risk Notes Problem Restless legs syndrome (69476579) Restless legs syndrome (G25.81) Active confirmed Problem Acquired spondylolisthesis (798991586) Spondylolisthesis, 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) Active confirmed Problem Degeneration of lumbar intervertebral disc (75751153) Other intervertebral disc degeneration, lumbar region (M51.36) Active confirmed Problem Urge incontinence of urine (48275686) Urge incontinence (N39.41) Active confirmed Problem Anxiety (57249596) Anxiety (F41.9) Active confi rmed Problem Bipolar 1 disorder (759794874) Bipolar 1 disorder (F31.9) Active confirmed Problem Obese class I (finding) (544804519273774) Obesity (BMI 30.0-34.9) (E66.9) Active confirmed Problem Paresthesia (finding) (83130573) Paresthesias (R20.2) Active confirmed Problem COPD - Chronic obstructive pulmonary disease (29909671) Chronic obstructive pulmonary disease, unspecified COPD type (J44.9) Active confirmed Problem Gastroesophageal reflux disease without esophagitis (647048015) Gastroesophageal reflux disease without esophagitis (K21.9) Active confirmed Problem Atrial fibrillation (86033744) Atrial fibrillation, unspecified type (I48.91) Active confirmed Problem Oral thrush (20914172) Oral thrush (B37.0) Active confirmed Problem Essential hypertension (23207770) Hypertension, unspecified type (I10) Active confirmed Problem Uncomplicated moderate persistent asthma (710926560) Moderate persistent asthma, unspecified whether complicated (J45.40) Active confirmed Problem Body mass index 30+ - obesity (417253770) BMI 30.0-30.9,adult (Z68.30) Active confirmed Problem Polyneuropathy due to type 2 diabetes mellitus (366148182) Type 2 diabetes mellitus with diabetic polyneuropathy, unspecified whether terminal gauger insulin use (E11.42) Active confirmed Problem Oropharyngeal dysphagia (20097104) Oropharyngeal dysphagia (R13.12) Active confirmed Problem Mixed bipolar affective disorder, moderate (351881580) Bipolar mixed affective disorder, moderate (F31.62) Active confirmed Problem Anticoagulant therapy (386508591) Anticoagulated on Coumadin (Z79.01) Active confirmed Problem Stable angina due to coronary arteriosclerosis (disorder) (27536101542908913) Coronary artery disease of [place] heart with stable angina pectoris, unspecified vessel [...] 09/07/2024 Encounters Encounter Location Date Provider Diagnosis [facility] [address] [place] [address] 06/14/2024 Darcie Garcia [address] [place] [address] 07/11/2024 Darcie Garcia Restless legs syndro me G25.81 [address] [place] [address] 07/18/2024 Darcie Garcia [address] [place] [address] 08/05/2024 Darcie Garcia [facility] [address] [place] [address] 08/11/2024 Darcie Garcia Gastroesophageal ref lux disease without esophagitis K21.9 [address] [place] [address] 08/16/2024 Darcie Garcia Type 2 diabetes norah itus with diabetic polyneuropathy, unspecified whether senior care insulin use E11.42 [address] [place] [address] 08/29/2024 Darcie Garcia Restless legs syndro me G25.81 [address] [place] [address] 11/28/2024 Darcie Garcia Hypertension, unspecified type I10 [address] [place] [address] 06/21/2024 Emmanuel Stratton Restless legs syndro me G25.81 [address] [place] [address] 06/29/2024 Darcie Garcia Restless legs syndro me G25.81 ; Hip pain, right M25.551 and Urge incontinence N39.41 [facility] [place] [address] 08/12/2024 Darcie Garcia Strain of neck muscl e, initial encounter S16.1XXA ; Changes in vision H53.9 ; Dizziness R42 and Paresthesias R20.2 [facility] [place] [address] 06/13/2024 Darcie Garcia Hip pain, right M25. 551 and Pneumonia of both lower lobes due to infectious organism J18.9 [facility] [address] [place] [address] 09/07/2024 Nicole Benson Bipolar mixed affect vesna disorder, moderate F31.62 [facility] [address] [place] [address] 07/13/2024 Nicole Benson Bipolar mixed affect vesna [...] diabetes mellitus with diabetic polyneuropathy, unspecified whether terminal gauger insulin use (ICD-10 - E11.42) 08/29/2024 Restless legs syndrome (ICD-10 - G25.81) 08/11/2024 Gastroesophageal reflux disease without esophagitis (ICD-10 - K21.9) 07/11/2024 Restless legs syndrome (ICD-10 - G25.81) 06/13/2024 Hip pain, right (ICD-10 - M25.551) [...] Care Instructions material was printed 06/21/2024 Other Rust sent as mistake, called pharmacy to have [...] in the left eye.- Consult with an clinching machine operator in the next 24 hours if possible [...] Date ANTHEM MEDIBLUE DUAL-ELIGB LE [address] [place] [address] [phone] [id number] [facility] 0 KING MORENO Self - patient is the insured 3 [employer] MEDICAID SEC TO [employer] ADV [address] [place] [address] [id number] KING MORENO Self - patient is the insured 1 MEDICARE S 1 [place] [address] [id number] KING MORENO Self - patient is the [...]
--- OUTSIDE RECORDS SUMMARY | 2025-06-07 13:57 | XMS_ITS | Encounter Summary ---
Author Organization [facility] Address [address] [place] [address] Phone Care Team Providers Care Chief Cardiopulmonary Technologist Name Role Phone Generic Provider, No Assigned Pcp Primary Car e Provider Unavailable Diane Min RN Unavailable Unavailable June Preston MD Unavailable Conchita Aden MD Primary Care Provider [phone] Diane Min RN Unavailable Unavailable Earlene Eubanks RN Unavailable Encounter Details Date Type Department Care Team (Late st Contact Info) Description 11/05/2024 Scanned Document [facility] [address] [place] [place] [address] Scanning, Generic Provider Social History [...] Description 07/14/2025 1:00 PM EDT Office Visit [facility] 703 [facility] [address] [place] [address] Oscar Rodriguez MD 703 [facility] 2, [address] [place] [address] 09/26/2025 12:20 PM EST Appointment [facility] [address] [place] [address] 09/26/2025 1:00 PM EST Office Visit [facility] [address] [facility] [address] [place] [address] June Preston MD [address] [facility] Medical Office [facility], [address] [place] [address] documented as of this encounter Visit Diagnoses [...] documented as of this encounter Care Teams Chief Cardiopulmonary Technologist Relationship Specialty Start Date End Date Generic Provider, No [place] [address] PCP - General Director Trust 08/08/24 11/10/24 Conchita Aden MD [address] [place] [address] PCP - General Family Medicine 11/11/24 Diane Min, biodiesel plant operations engineerFishing Reel Assembler 09/05/24 12/06/24 June Preston MD [address] [facility] Medical Office [facility], [facility] [address] [place] [address] Production Supervisor Trainee Electrophysiology 09/13/24 Diane Min, biodiesel plant operations engineerFishing Reel Assembler 01/16/25 01/31/25 Earlene Eubanks, PAULA Stock ChaserFishing Reel Assembler 04/17/25 documented as of this encounter
--- OUTSIDE RECORDS SUMMARY | 2025-06-07 13:57 | XMS_ITS | Clinical Summary ---
Author Organization [facility] Address [address] [place] [address] Care Team Providers Care Cash Checker Name Role Phone Unavailable Primary Care Provider [...] Cardiology consulted Postoperative pain 05/23/2015 Overview (05/23/2015): POOL MANAGER pump and will transition to oral [...] Additional history exists Lipid Screening 05/16/2020 05/16/2015 Influenza Vaccine (#1) 2025 RSV Vaccine (1 - 1-dose 75+ series) 2035 Procedures Procedure Name Priority Date/Time Associated Diagnosis Comments BASIC METABOLIC PANEL STAT 05/31/2015 12:41 AM EDT LIPID PANEL, FASTING Routine 05/16/2015 10:42 AM EDT 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) from Last 3 Months or Most Recently Relevant to Health Maintenance Results * (ABNORMAL) BASIC METABOLIC PNL (05/31/2015 12:41 AM EDT) Glucose 101(H) 65 - 100 mg/dL 05/31/2015 1:52 AM EDT [facility] BUN 3(L) 8 - 25 mg/dL 05/31/2015 1:52 AM T [facility] Creatinine 0.75 0.70 - 1.40 mg/dL 05/31/2015 1:52 AM T [facility] Sodium 135 132 - 148 mmol/L 05/31/2015 1:52 AM T [facility] Potassium 4.3 3.5 - 5.0 mmol/L 05/31/2015 1:52 AM T [facility] Chloride 100 98 - 110 mmol/L 05/31/2015 1:52 AM [facility] CO2 24 23 - 32 mmol/L 05/31/2015 1:52 AM [facility] Anion Gap 11 0 - 15 mmol/L 05/31/2015 1:52 AM [facility] Calcium 8.6 8.5 - 10.5 mg/dL 05/31/2015 1:52 AM T [facility] eGFR- >60 05/31/2015 1:52 AM [facility] eGFR-All Other Races >60 . 05/31/2015 1:52 AM [facility] Comment: eGFR (Estimated GFR) [...] Marcial Escobar (Hist) Lin LABORATORY Final Result Performing Organization Address [facility] Co de Phone Number [facility] [address] [place] [address] * (ABNORMAL) LIPID PANEL BASIC (05/16/2015 10:42 AM EDT) Triglyceride 118 30 - 149 mg/dL 05/16/2015 6:55 PM EDT [facility] Cholesterol, Total 142 100 - 199 mg/dL 05/16/2015 6:55 PM EDT [facility] HDL Cholesterol 65 >55 mg/dL 5 6:55 PM EDT [facility] VLDL Cholesterol 24 6 - 40 mg/dL 05/16/2015 6:55 PM EDT [facility] LDL Cholesterol, Calculated 53(L) 60 - 129 mg/dL 05/16/2015 6:55 PM EDT [facility] Fasting Time Unknown hrs 05/16/2015 2:56 PM EDT [facility] TC:HDL Ratio 2.18 1.00 - 5.00 05/16/2015 6:55 PM EDT [facility] LDL:HDL Ratio 0.82 0.50 - 3.55 05/16/2015 6:55 PM EDT [facility] Non HDL Cholesterol 77(L) 90 - 159 mg/dL 05/16/2015 6:55 PM EDT [facility] Blood specimen (specimen) BLOOD SPECIMEN / Unknown 05/16/2015 10:42 AM EDT 05/16/2015 10:46 AM EDT us Warner Conde MD LABORATORY Final Result Performing Organization Address [facility]/ZIP Co de Phone Number [facility] [address] [place] [address] from Last 3 Months or Most Recently Relevant to Health Maintenance Insurance MEDICARE MEDICAID [place]
--- OUTSIDE RECORDS SUMMARY | 2025-06-07 13:57 | XMS_ITS | Encounter Summary ---
Author Organization [facility] Address [address] [place] [address] Phone Care Team Providers Care Plant Operator Control Room Operator Name Role Phone Generic Provider, No Assigned Pcp Primary Car e Provider Unavailable Diane Min RN Unavailable Unavailable June Preston MD Unavailable Conchita Aden MD Primary Care Provider Diane Min RN Unavailable Unavailable Earlene Eubanks RN Unavailable Encounter Details Date Type Department Care Team (Late st Contact Info) Description 10/29/2024 Scanned Document [facility] [address] [place] [address] Scanning, Generic Provider Social History [...] living in a usp (including now)? No 09/01/2024 Comments No Sex and Gender Information Value Date Recorded Sex Assigned at Not on file Legal Sex Female 10:34 AM EST Gender Identity Not on file Sexual Orientation Not on file documented as of this encounter Plan of Treatment Upcoming Encounters Date Type Department Care Team (Late st Contact Info) Description 07/14/2025 1:00 PM EDT Office Visit [facility] 703 [facility] [address] [place] [address] Oscar Rodriguez MD 703 [facility] 2, [address] [place] [address] 09/26/2025 12:20 PM EST Appointment [facility] [address] [place] [address] 09/26/2025 1:00 PM EST Office Visit [facility] [address] [facility] [address] [place] [address] June Preston MD [address] [facility] Medical Office [facility], [address] [place] [address] documented as of this encounter Visit Diagnoses [...] documented as of this encounter Care Teams Plant Operator Control Room Operator Relationship Specialty Start Date End Date Generic Provider, [place] [address] PCP - General Conservation Educator 08/08/24 11/10/24 Conchita Aden MD [address] [place] [address] PCP - General Family Medicine 11/11/24 Diane Min, ground control approach technicianThermometer Production Worker 09/05/24 12/06/24 June Preston MD [address] [facility] Medical Office [facility], [facility] [address] [place] [address] Gunite Nozzle Operator Electrophysiology 09/13/24 Diane Min, ground control approach technicianThermometer Production Worker 01/16/25 01/31/25 Earlene Eubanks, PAULA Battery FillerThermometer Production Worker 04/17/25 documented as of this encounter
--- OUTSIDE RECORDS SUMMARY | 2025-06-07 13:57 | XMS_ITS | Encounter Summary ---
Author Organization [facility] Address [address] [place] [address] Phone Care Team Providers Care Supervisor Cloth Winding Name Role Phone Tremaine West DO Primary Care Provider Ania Brothers SENIOR CLINICAL DATA COORDINATOR-WASHER ENGINEER HELPER Unavailable Unavailable June Preston MD Unavailable Sol Keita FOIL WRAPPER Unavailable June Preston MD Unavailable Oscar Rodriguez MD Unavailable [phone] Generic Provider, No Assigned Pcp Primary Car e Provider Unavailable Diane Min RN Unavailable Unavailable June Preston MD Unavailable Conchita Aden MD Primary Care Provider [phone] Diane Min RN Unavailable Unavailable Earlene Eubanks RN Unavailable Encounter Details Date Type Department Care Team (Late st Contact Info) Description 07/23/2023 Scanned Document [facility] LEGACY [address] [place] [address] Conversion, Onbase Social History Tobacco Use Types [...] Description 07/14/2025 1:00 PM EDT Office Visit [facility] [address] [place] [address] Oscar Rodriguez MD [address] [place], [place] [id number] 09/26/2025 12:20 PM EST Appointment [facility] [address] [place] [address] 09/26/2025 1:00 PM EST Office Visit [facility] [address] [facility] [address] [place] [address] June Preston MD [address] [facility] Medical Office Bldg, [address] [place], [place] [id number] documented as of this encounter Procedures Procedure [...] as of this encounter Care Teams Supervisor Cloth Winding Relationship Specialty Start Date End Date Tremaine West [address] [facility] Tremaine West DO [address] [place] [address] PCP - General 01/22/22 11/05/23 Generic Provider, No Assigned [facility]MD [facility]ONE [facility] [place] [address] PCP - General Waiter/Waitress Club 08/08/24 11/10/24 Conchita Aden MD [address] [place] [address] [place] [address] PCP - General Family Medicine 11/11/24 Ania Brothers APRN-[facility] 16[address] [facility] Tremaine Childersyukoezekiel [facility] [address] [place] [address] Nurse Practitioner Cardiology 09/30/23 02/16/24 June Preston MD [address] [facility] Tremaine Childerscristino [facility] [address] [place] [address] Job Molder Cardiology 09/30/23 02/16/24 Sol Keita, FOIL WRAPPER Avionics SupervisorDesign Specialist 02/19/24 05/17/24 June Preston MD [address] [facility], [address] [place] [address] Consulting Physician Cardiology 02/19/24 02/29/24 Oscar Rodriguez MD [address] [place] [address] 2, [address] [place] [address] Consulting Physician Cardiology 02/19/24 02/29/24 Diane Min, township supervisorDesign Specialist 09/05/24 12/06/24 June Preston MD [address] [facility], [address] [place] [address] Job Molder Electrophysiology 09/13/24 Diane Min, township supervisorDesign Specialist 01/16/25 01/31/25 Earlene Eubanks, PAULA Avionics SupervisorDesign Specialist 04/17/25 documented as of this encounter
--- OUTSIDE RECORDS SUMMARY | 2025-06-07 13:57 | XMS_ITS | Encounter Summary ---
Author Organization [facility] Address [address] [place] [address] Phone Care Team Providers Care Copy Manager Name Role Phone Tremaine West DO Primary Care Provider Ania Brothers SUPERVISOR MICROFILM DUPLICATING UNIT-EMAIL OPERATIONS MANAGER Unavailable Unavailable June Preston MD Unavailable Sol Keita DIRECTOR OF INCOME TAX Unavailable June Preston MD Unavailable Oscar Rodriguez MD Unavailable [phone] Generic Provider, No Assigned Pcp Primary Car e Provider Unavailable Diane Min RN Unavailable Unavailable June Preston MD Unavailable Conchita Aden MD Primary Care Provider [phone] Diane Min RN Unavailable Unavailable Earlene Eubanks RN Unavailable Encounter Details Date Type Department Care Team (Late st Contact Info) Description 07/27/2023 Scanned Document [facility] LEGACY [address] [place] [address] Conversion, Onbase Social History Tobacco Use Types [...] Description 07/14/2025 1:00 PM EDT Office Visit [facility] [address] [place] [address] Oscar Rodriguez MD [address] [place] [address] 09/26/2025 12:20 PM EST Appointment [facility] [address] [place] [address] 09/26/2025 1:00 PM EST Office Visit [facility] [address] [facility] [address] [place] [address] June Preston MD [address] [facility] Medical Office Bldg, [address] [place] [address] documented as of this encounter Procedures Procedure [...] documented as of this encounter Care Teams Copy Manager Relationship Specialty Start Date End Date Tremaine West DO [address] [place] Amor West, DO [facility] [address] [place] [address] PCP - General 01/22/22 11/05/23 Generic Provider, No [place] [address] PCP - General Works Manager 08/08/24 11/10/24 Conchita Aden MD [address] [place] [address] [place] [address] PCP - General Family Medicine 11/11/24 Ania Brothers, SUPERVISOR MICROFILM DUPLICATING UNIT-EMAIL OPERATIONS MANAGER [address] [place] Amor West [facility] [address] [place] [address] Nurse Practitioner Cardiology 09/30/23 02/16/24 June Preston MD 1610 [facility] Tremaine West [facility] [address] [place] [address] Middle School Assistant Principal Cardiology 09/30/23 02/16/24 Sol Keita, DIRECTOR OF INCOME TAX Gunnery/Ordnance OfficerMakeup Editor 02/19/24 05/17/24 June Preston MD [address] [facility], [address] [place] [address] Consulting Physician Cardiology 02/19/24 02/29/24 Oscar Rodriguez MD [address] [place] [address] 2, [address] [place] [address] Consulting Physician Cardiology 02/19/24 02/29/24 Diane Min, auto glass installerMakeup Editor 09/05/24 12/06/24 June Preston MD [address] [facility], [address] [place], [place] [phone] [employer] Assistant Principal Electrophysiology 09/13/24 Diane Min, auto glass installerMakeup Editor 01/16/25 01/31/25 Earlene Eubanks, PAULA Gunnery/Ordnance OfficerMakeup Editor 04/17/25 documented as of this encounter
--- OUTSIDE RECORDS SUMMARY | 2025-06-07 13:57 | XMS_ITS | Encounter Summary ---
Author Organization [facility] Address [address] [place], [place] [id number] Care Team Providers Care Dental Prosthetist Name Role Phone James Makiic Leslie SALAZAR Primary Care Provider [phone] Reza Pike MD Primary Care Provider Pcp, No Primary Care Provider Unavailabl e Source Comments In the event this information is protected by the Federal Confidentiality of Alcohol and Drug AbusePatient Records regulations: The Federal rules restrict any use of the information to criminally investigate or prosecute any alcohol or drug abuse patient.[facility] Encounter Details Date Type Department Care Team (Late st Contact Info) Description 06/01/2015 Letters (in) Colorectal Surgery [address] [id number] Marcial Ceballos (Hist) [address] [id number] Social History Tobacco Use Types Packs/Day Years [...] PM EDT Javier Bhatt (Rn)(Hist), RN * Because of a physical, mental, or emotional condition, do you have difficulty doing errands alone such as visiting a doctor's office or shopping? Answer Date of Assessment Author No 05/31/2015 12:22 PM EDT Javier Bhatt (Rn)(Hist), RN documented as of this encounter Mental Status * Because of a physical, mental, or emotional condition, do you have serious difficulty concentrating, remembering, or making decisions? Answer Entry Date Author No 05/31/2015 12:22 PM Javier Travis (Rn)(Hist), RN documented in this encounter Miscellaneous Notes * Letter - Marcial Ceballos - 06/05/2015 3:48 PM EDT June 01, 2015 Jd Dailey, DO [address] [address] RE: Latanya Martinez : [address] [...] and she was suitable for anesthesia, a uatsdin of continuity could be performed. I performed [...] 22, 2015. Yours Faithfully, Marcial Ceballos MD OR/ cc: Latanya Martinez 11/03 [place] [address] Lit Maki DO [address] [facility] [address] documented in this encounter Plan of Treatment Not on file documented as of this encounter Visit Diagnoses Not on filedocumented in this encounter Care Teams Dental Prosthetist Relationship Specialty Start Date End Date Lit Maki DO PCP - General 05/16/15 06/03/15 Reza Pike MD PCP - General Family Medicine 06/04/15 05/16/22 Pcp, No PCP - General 05/17/22 12/02/22 documented as of this encounter
--- OUTSIDE RECORDS SUMMARY | 2025-06-07 13:57 | XMS_ITS | Encounter Summary ---
Author Organization [facility] Address [address] [place] [address] Phone Care Team Providers Care Purchasing Associate Name Role Phone June Preston MD Unavailable Conchita Aden MD Primary Care Provider [phone] Earlene Eubanks RN Unavailable Encounter Details Date Type Department Care Team (Late st Contact Info) Description 02/10/2025 Scanned Document [facility] [address] [place] [phone] Scanning, Generic Provider Social History Tobacco Use Types Packs/Day Years Used Date Smoking Tobacco: Every Day Cigarettes 0.5 50.6 Started: 1974 Smokeless Tobacco: Never Alcohol Use Standard Drinks/Week Comments Not Currently 0 (1 standard drink = 0.6 oz pur e alcohol) B1300 Health Literacy Answer Date Recor ded How often do you need to hav e someone help you when you read instructions, pamphlets, or other written material from your doctor or pharmacy? Never 01/08/2025 [facility] Utilities Answer Date Recorded In the past [...] declined 01/08/2025 Social Connection and Isolation Panel Answer Date Recorded In a typical week, how many times do you talk on the phone with family, friends, or neighbors? Once a week 01/08/2025 How often do you get togethe r with friends or relatives? Once a week 01/08/2025 How often do you attend baptism or zoroastrianism serv ices? Patient declined 01/08/2025 Do you belong to any clubs o r organizations such as baptism groups, unions, fraternal or athletic groups, or [...] Recorded Patient Health Questionnaire-2 Score 0 01/08/2025 [facility] Prospect of Occupat ional Health - Occupational Stress [...] any time in the past 12 m [facility], were you homeless or living [...] Description 07/14/2025 1:00 PM EDT Office Visit [facility] [address] [place] [address] Oscar Rodriguez MD [address] [place] [address] 09/26/2025 12:20 PM EST Appointment [facility] [address] [place] [address] 09/26/2025 1:00 PM EST Office Visit [facility] [address] [place] [address] June Preston MD [address] [facility] Medical Office Bldg, [address] [place] [address] documented as of this encounter Procedures Procedure [...] documented as of this encounter Care Teams Purchasing Associate Relationship Specialty Start Date End Date Conchita Aden MD [address] [place] [address] [place] [address] PCP - General Family Medicine 11/11/24 June Preston MD [address] [facility] [address] [place] [address] Manager Creative Services Electrophysiology 09/13/24 Earlene Eubanks, RN Braiding Machine TenderPanel Flow Machine Operator 04/17/25 documented as of this encounter
--- OUTSIDE RECORDS SUMMARY | 2025-06-07 13:58 | XMS_ITS | Encounter Summary ---
Author Organization [facility] Address [address] [place] [address] Phone Care Team Providers Care Rn Advice Name Role Phone Tremaine West DO Primary Care Provider Ania Brothers AUTOMATIC DRY STARCH OPERATOR-MANAGER MOBILITY Unavailable Unavailable June Preston MD Unavailable Sol Keita CREDIT REVIEW MANAGER Unavailable [phone] June Preston MD Unavailable Oscar Rodriguez MD Unavailable [phone] Generic Provider, No Assigned Pcp Primary Car e Provider Unavailable Diane Min RN Unavailable Unavailable June Preston MD Unavailable Conchita Aden MD Primary Care Provider [phone] Diane Min RN Unavailable Unavailable Earlene Eubanks RN Unavailable Encounter Details Date Type Department Care Team (Late st Contact Info) Description 08/20/2020 Orders Only [facility] LEGACY [address] [place] [address] Conversion, Onbase Social History Tobacco Use Types [...] Description 07/14/2025 1:00 PM EDT Office Visit [facility] [address] [facility] [address] [place] [address] Oscar Rodriguez MD [address] [place] [address] 09/26/2025 12:20 PM EST Appointment [facility] [address] [facility] [place] [address] 09/26/2025 1:00 PM EST Office Visit [facility] [address] [facility] [address] [place] [address] June Preston MD [address] [facility] Medical Office Bl, [address] [place], [place] [phone] Scheduled Orders Name Type Priority Associated Diagnoses [...] documented as of this encounter Care Teams Rn Advice Relationship Specialty Start Date End Date Tremaine West DO [address] [facility] Tremaine West DO [facility] [address] [place] [address] PCP - General 01/22/22 11/05/23 Generic Provider, No [place] [address] PCP - General Lumber Checker 08/08/24 11/10/24 Conchita Aden MD [facility] [place] [address] PCP - General Family Medicine 11/11/24 Ania Brothers, AUTOMATIC DRY STARCH OPERATOR-MANAGER MOBILITY [address] [facility]aine [facility] DO [address] [place] [address] Nurse Practitioner Cardiology 09/30/23 02/16/24 June Preston MD [address] [facility] Tremaine [facility] DO [address] [place] [address] Field Reporter Cardiology 09/30/23 02/16/24 Sol Keita, CREDIT REVIEW MANAGER Dicer Machine OperatorStage Driver 02/19/24 05/17/24 June Preston MD [address] [facility], [address] [place] [address] Consulting Physician Cardiology 02/19/24 02/29/24 Oscar Rodriguez MD 703 [facility] 2, [address] [place] [address] Consulting Physician Cardiology 02/19/24 02/29/24 Diane Min RN Care Stage Driver 09/05/24 12/06/24 June Preston MD [address] [facility], [address] [place] [address] Field Reporter Electrophysiology 09/13/24 Diane Min, natural gas plant supervisorStage Driver 01/16/25 01/31/25 Earlene Eubanks RN Dicer Machine OperatorStage Driver 04/17/25 documented as of this encounter
--- OUTSIDE RECORDS SUMMARY | 2025-06-07 13:58 | XMS_ITS | Patient Health Record ---
Author Organization The [facility] in [place] Address [address] [place] [address] Care Team Providers Care Drywaller Name Role Phone Conchita Aden Primary Care Provider Mariah Rashid Unavailable [phone] Results Component Value Reference Range Notes BNP Reviewed date:10/30/2024 08:29:21 PM Interpretation: Performing Lab: Notes/Report: The [facility] , NT Pro B Type Natriuretic Pept 352.0 <=900.0 pg/mL Performing Lab: see note ML - The [facility] LB LACTATE or LACTIC ACID Reviewed date:10/30/2024 08:29:21 PM Interpretation: Performing Lab: Notes/Report: [facility] , Lactate/Lactic Acid 3.0 0.4-2.0 mmol/L RESULT S CALLED TO SARA ZAVALETA Performing Lab: see note ML - The [facility] LB Troponin I High Sensitivity Reviewed date:10/30/2024 08:29:22 PM Interpretation: Performing Lab: Notes/Report: [facility] , Troponin I High Sensitivity 6.0 4.0-51.3 pg/mL USED IN ISOLATION BUT SHOULD BE INTERPRETED IN CONJUNCTION 99TH PERCENTILE = 51.4 PG/ML UNIVERSAL DEFINITION OF MYOCARDIAL INFARCTION. THE UPPER CUT-OFF POINTS HAVE BEEN ESTABLISHED BASED ON THE FOURTH NOTE: HIGH-SENSITIVITY TROPONIN ASSAY IS NOT INTENDED TO BE HAS BEEN CONFIRMED THE DECISION THRESHOLD FOR [place] PERCENTILE OF cTnI DISTRIBUTION IN A REFERENCE POPULATION, DIAGNOSIS. REFERENCE LIMIT (URL) OF TROPONIN, DEFINED THE 99TH WITH OTHER DIAGNOSTIC AND CLINICAL INFORMATION. Performing Lab: see note ML - The [facility] LB BNP Reviewed date:11/02/2024 03:17:53 PM Interpretation: Performing Lab: Notes/Report: The [facility] , NT Pro B Type Natriuretic Pept 398.0 <=900.0 pg/mL Performing Lab: see note ML - The [facility] LB CBC AUTO DIFF Reviewed date:11/02/2024 03:17:53 PM Interpretation: Performing Lab: Notes/Report: The [facility] , White Blood Count 16.1 [...] Performing Lab: see note ML - The [facility] LB PROF 14(COMP METB) Reviewed date:11/02/2024 03:17:53 PM Interpretation: Performing Lab: Notes/Report: [facility] , Sodium 135 136-145 mmol/L [...] 0.7 Performing Lab: see note ML - [facility] LB Prothrombin Time INR Reviewed date:11/02/2024 03:17:53 PM Interpretation: Performing Lab: Notes/Report: [facility] , Prothrombin Time 11.9 9.0-11.6 sec INR 1.14 2.0-3.0 CONDITIONS NOT LISTED BELOW 2.5-3.5 FOR PROSTHETIC HEART VALVE REPLACEMENT DESIRED INR: 2.5-3.5 RECURRENT THROMBOSIS Performing Lab: see note - [facility] LB XR chest 2V Reviewed date:11/02/2024 03:17:53 PM Interpretation: Performing Lab: Notes/Report: Source Facility: [place] [address] [place] [address] XRay Report Signed Patient: KING MARTINEZ MR#: [id number] : 1960 Acct:[id number] Age/Sex: 63 / F ADM Date: 10/30/24 Loc: MS 203-[address]: Samuel Snowden M.D. Ordering Physician: Samuel Snowden M.D. Date of Service: 11/01/24 Procedure(s): XR chest 2V Accession Number(s): [id number] cc: Conchita Aden M.D.; Samuel Snowden M.D. [address] [address] Patient Name: KING MARTINEZ MRN: [id number] date: 1960 Sex: F Assigned Patient Location: [place] Current Patient Location: [place] Accession/Order Number: [id number] Exam Date: 11/01/2024 09:30 Report Date: 11/01/2024 [...] Signed By: 11/01/24 1002 DD/ 1000 TD/TT: Loss Claim Clerk: [place] [address] XRay Report Signed Patient: NANETTE MARTINEZ MR#: [id number] : 1960 Acct:[id number] Age/Sex: 63 / F ADM Date: 10/30/24 Loc: MS 203-[address]: Fredi Snowden M.D. Ordering Physician: Samuel Snowden M.D. Date of Service: 11/01/24 Procedure(s): XR [address] 2V Accession Number(s): [id number] cc: Conchita Aden M.D.; Samuel Snowden M.D. [address] [address] Patient Name: KING MARTINEZ MRN: [id number] date: 1960 Sex: F Assigned Patient Location: MS Current Patient Location: MS Accession/Order Numb er: [id number] Exam Date: 09:30 Report Date: 11/01/2024 10:00 [...] Signed By: 11/01/24 1002 DD/ 1000 TD/TT: Loss Claim Clerk: PROF Billingsley(COMP METB) Reviewed date:10/31/2024 08:21:23 PM Interpretation: Performing Lab: Notes/Report: [facility] , Sodium 136 136-145 mmol/L Potassium [...] 0.6 Performing Lab: see note ML - The [facility] LB CBC AUTO DIFF Reviewed date:10/31/2024 08:21:23 PM Interpretation: Performing Lab: Notes/Report: [facility] , White Blood Count 14.0 [...] Performing Lab: see note ML - The [facility] LB Troponin I High Sensitivity Reviewed date:10/31/2024 08:21:23 PM Interpretation: Performing Lab: Notes/Report: [facility] , Troponin I High Sensitivity 8.6 4.0-51.3 pg/mL REFERENCE LIMIT (URL) OF TROPONIN, DEFINED THE 99TH CUT-OFF POINTS HAVE BEEN ESTABLISHED BASED ON THE FOURTH NOTE: HIGH-SENSITIVITY TROPONIN ASSAY IS NOT INTENDED TO BE HAS BEEN CONFIRMED THE DECISION THRESHOLD FOR [place] DIAGNOSIS. UNIVERSAL DEFINITION OF MYOCARDIAL INFARCTION. THE UPPER 99TH PERCENTILE = 51.4 PG/ML USED IN ISOLATION BUT SHOULD BE INTERPRETED IN CONJUNCTION WITH OTHER DIAGNOSTIC AND CLINICAL INFORMATION. PERCENTILE OF cTnI DISTRIBUTION IN A REFERENCE POPULATION, Performing Lab: see note ML - [facility] LB LACTATE or LACTIC ACID Reviewed date:10/31/2024 08:21:23 PM Interpretation: Performing Lab: Notes/Report: [facility] , Lactate/Lactic Acid 1.7 0.4-2.0 mmol/L Performing Lab: see note ML - The [facility] LB SARS-CoV-2 Ag* Reviewed date:10/31/2024 08:21:23 PM Interpretation: Performing Lab: Notes/Report: [facility] , SARS-CoV-2 Ag NEGATIVE NEGATIVE viruses [...] sooner. Performing Lab: see note ML - [facility] LB Prothrombin Time INR Reviewed date:10/31/2024 08:21:23 PM Interpretation: Performing Lab: Notes/Report: [facility] , Prothrombin Time 64.4 9.0-11.6 sec RESULTS CALLED TO SUSSY CANO RN @BY Dilia Wilks at 2127 INR 7.41 2.5-3.5 RECURRENT THROMBOSIS 2.0-3.0 CONDITIONS NOT LISTED BELOW Lashaun at 2127 2.5-3.5 FOR PROSTHETIC HEART VALVE REPLACEMENT DESIRED INR: RESULTS CALLED TO SUSSY CANO RN @BY Dilia Nolasco Performing Lab: see note ML - [facility] LB INFLUENZA A AND B AG Reviewed date:10/31/2024 08:21:23 PM Interpretation: Performing Lab: Notes/Report: [facility] , Influenza Virus A Antigen [...] be Performing Lab: see note ML - [facility] LB Prothrombin Time INR Reviewed date:11/02/2024 03:17:53 PM Interpretation: Performing Lab: Notes/Report: [facility] , Prothrombin Time 12.9 9.0-11.6 sec INR 1.24 2.5-3.5 FOR PROSTHETIC HEART VALVE REPLACEMENT DESIRED INR: 2.5-3.5 RECURRENT THROMBOSIS 2.0-3.0 CONDITIONS NOT LISTED BELOW Performing Lab: see note - [facility] LB PROF 14(COMP METB) Reviewed date:11/02/2024 03:17:53 PM Interpretation: Performing Lab: Notes/Report: [facility] , Sodium 139 136-145 mmol/L [...] Ratio 0.6 Performing Lab: see note - [facility] LB MAGNESIUM Reviewed date:11/02/2024 03:17:53 PM Interpretation: Performing Lab: Notes/Report: [facility] , Magnesium 2.0 1.8-2.4 mg/dL Performing Lab: see note ML - The [facility] LB CBC AUTO DIFF Reviewed date:11/02/2024 03:17:53 PM Interpretation: Performing Lab: Notes/Report: [facility] , White Blood Count 20.8 [...] Performing Lab: see note ML - The [facility] LB Prothrombin Time INR Reviewed date:10/31/2024 08:21:23 PM Interpretation: Performing Lab: Notes/Report: [facility] , Prothrombin Time 25.0 9.0-11.6 sec INR 2.59 DESIRED INR: 2.0-3.0 CONDITIONS NOT LISTED BELOW 2.5-3.5 FOR PROSTHETIC HEART VALVE REPLACEMENT 2.5-3.5 RECURRENT THROMBOSIS Performing Lab: see note ML - The [facility] LB Reason For Referral No Information Problems Problem Type SNOMED Code ICD Code Onset Dates Problem Status W/U Status Risk Notes Problem Hypertension (74833861) HTN (hypertension) (I10) Active confirmed Problem Essential hypertension (54361536) Benign essential HTN (I10) Active confirmed Problem Bipolar 1 disorder (025764438) Bipolar 1 disorder (F31.9) Active confirmed Problem Diabetes mellitus type 2 (disorder) (73474521) DM2 (diabetes mellitus, type 2) (E11.9) Active confirmed Problem High cholesterol (60546568) High cholesterol (E78.00) Active confirmed Problem Diabetes mellitus (73084064) Diabetes mellitus (E11.9) Active confirmed Encounters Encounter Location Date Provider Diagnosis [facility] [address] [place] [address] 05/08/2025 Mariah Logan [facility] [address] 04/25/2025 Mariah Logan Plan Of Treatment Next Appt Details Provider Name:Mariah Logan , 06/20/2025 01:30:00 PM, [address] [place], [address], Insurance Providers Payer Name Payer Address Payer Phone Subscriber Number Group Number Insured Name Patient Relationship to Insured Coverage Start Date Coverage End Date AN[employer]M MEDIBLUE DUAL ADV PRIMARY MEDICARE [address] [place] [address] [id number] King Martinez Self - patient is the insured 3 MEDICAID [place] 2ND INS [address] [facility] [place] [id number] King Martinez Self - patient is the insured
--- OUTSIDE RECORDS SUMMARY | 2025-06-07 13:58 | XMS_ITS | Encounter Summary ---
Author Organization [facility] Address [address] [place] [address] Phone Care Team Providers Care Property Field Inspector Name Role Phone Tremaine West DO Primary Care Provider Ania Brothers SPEECH WRITER-SWEEPER CLEANER INDUSTRIAL Unavailable Unavailable June Preston MD Unavailable Sol Keita SALVAGE MACHINE OPERATOR Unavailable [phone] June Preston MD Unavailable Oscar Rodriguez MD Unavailable [phone] Generic Provider, No Assigned Pcp Primary Car e Provider Unavailable Diane Min RN Unavailable Unavailable June Preston MD Unavailable Conchita Aden MD Primary Care Provider [phone] Diane Min RN Unavailable Unavailable Earlene Eubanks RN Unavailable Encounter Details Date Type Department Care Team (Late st Contact Info) Description 01/31/2021 Orders Only [facility] [address] [place] [address] Conversion, Onbase Social History Tobacco Use Types [...] Description 07/14/2025 1:00 PM EDT Office Visit [facility] [address] [facility] [address] [place] [address] Oscar Rodriguez MD [address] [place], [place] [address] 09/26/2025 12:20 PM EST Appointment [facility] [address] [place] [facility] [place] [address] 09/26/2025 1:00 PM EST Office Visit [facility] [address] [facility] [address] [place] [address] June Preston MD [address] [facility] Medical Office [facility], [address] [place], [place] [address] Scheduled Orders Name Type Priority Associated Diagnoses [...] as of this encounter Care Teams Property Field Inspector Relationship Specialty Start Date End Date Tremaine West DO [address] [facility] Tremaine West DO [facility] [address] [place] [address] PCP - General 01/22/22 11/05/23 Generic Provider, [place] [address] PCP - General Lead Section Supervisor 08/08/24 11/10/24 Conchita Aden MD [facility] [facility] [place] [address] PCP - General Family Medicine 11/11/24 Ania Brothers APRN-SWEEPER CLEANER INDUSTRIAL [address] [facility] Tremaine West, DO [address] [place] [address] Nurse Practitioner Cardiology 09/30/23 02/16/24 June Preston MD [address] [facility] [address] [place] [address] Reference Archivist Cardiology 09/30/23 02/16/24 Sol Keita, SALVAGE MACHINE OPERATOR Cement Crusher OperatorEditor Producer 02/19/24 05/17/24 June Preston MD [address] [facility], [address] [place] [address] Consulting Physician Cardiology 02/19/24 02/29/24 Oscar Rodriguez MD 3 [facility] 2, [address] [place] [address] Consulting Physician Cardiology 02/19/24 02/29/24 Diane Min RN Care Editor Producer 09/05/24 12/06/24 June Preston MD [address] [facility], [address] [place] [address] Reference Archivist Electrophysiology 09/13/24 Diane Min, director marketingEditor Producer 01/16/25 01/31/25 Earlene Eubanks RN Cement Crusher OperatorEditor Producer 04/17/25 documented as of this encounter
--- OUTSIDE RECORDS SUMMARY | 2025-06-07 13:58 | XMS_ITS | Encounter Summary ---
Author Organization [facility] Address [address] [facility] [place] [address] Care Team Providers Care Cotton Acreage Measurer Name Role Phone Conchita Aden MD Primary Care Provider [phone] Encounter Details Date Type Department Care Team (Late Contact Info) Description 10/22/2024 Abstract [facility] [address] [facility] [place] [address] David Ewing DO [address] [facility] [address] Sven Obando, [facility]11 Social History Tobacco Use Types Packs/Day [...] on filedocumented in this encounter Care Teams [place] Measurer Relationship Specialty Start Date End Date Conchita Aden MD PCP - General Family Medicine 11/07/24 documented as of this encounter
--- OUTSIDE RECORDS SUMMARY | 2025-06-07 13:58 | XMS_ITS | Clinical Summary ---
Author Organization [facility] Address [address] [place] [address] Care Team Providers Care Acoustic Intelligence Specialist Name Role Phone Conchita Aden MD Primary Care Provider [phone] Allergies No known active allergies Medications oxybutynin [...] 1990 HPV/Cotest 1990 Mammogram 2000 Influenza Vaccine (#1) 2025 , 01/22/2021, 08/02/2019, Additional history exists Procedures Procedure [...] EDT Narrative 04/11/2025 6:49 AM EDT The [place] [id number] Electrocardiograph Report Signed Patient: KING MORENO MR#: [id number] : 1960 Acct:[id number] Age/Sex: 64 / F ADM Date: 04/10/25 Loc: MS 231-[address]: Alexandra Roberson D.O. Ordering Physician: Charity Gerard Date of Service: 04/10/25 Procedure(s): ECG 12 lead Accession Number(s): [id number] cc: [facility] Test Date: 2025-04-10 Pat Name: KING MORENO Department: Room: [facility] Gender: Female Check Totaler: : 1960 Requested By: 0923 Order Number: [id number] Reading MD: CROW MORRISON M.D. Measurements Intervals [place] Rate: 70 P: 68 [place]: 138 QRS: 69 QRSD: 90 T: -30 QT: 414 QTc: 434 Interpretive Statements 1100 Sinus rhythm 3434 Septal myocardial infarction, age undetermined 4068 Nonspecific Twave abnormality 9150 abnormal ECG Compared to ECG 04/09/2025 11:16:31 No significant changes Electronically Signed On 04-11-2025 6:48:53 EDT by CROW MORRISON M.D. Dictated By: CROW MORRISON Signed By: 04/11/2549 DD/ 02 TD/TT: District Agent: Procedure Note Radiology, Radiologist, MD - 04/11/[address] [address] Electrocardiograph Report Signed Patient: KING MORENO AMR#: [id number] : 1960cct:[id number] Age/Sex: 64 / FADM Date: 04/10/25 Loc: MS 231-[address]: Alexandra Roberson D.O. Ordering Physician: Charity Gerard Date of Service: 04/10/25 Procedure(s): ECG 12 lead Accession Number(s): [id number] cc: [facility] Test Date: 2025-04-10 Pat Name: KING KEWANEE Department: Room: [facility] Gender: Female Check Totaler: : 1960 Requested By: 0923 Order Number: [id number] Reading MD: CROW MORRISON M.D. Measurements Intervals [place] Rate: 70 P: 68 [place]: 138 QRS: 69 QRSD: 90 T: -30 QT: 414 QTc: 434 Interpretive Statements 1100 Sinus rhythm 3434 Septal myocardial infarction, age undetermined 4068 Nonspecific Twave abnormality 9150 abnormal ECG Compared to ECG 04/09/2025 11:16:31 No significant changes Electronically Signed On 04-11-2025 6:48:53 EDT by CROW MORRISON M.D. Dictated By: CROW MORRISON Signed By:04/11/25 0649 DD/ 02 TD/TT: District Agent: us Charity ZAVALETA [facility] Final Result [...] Moreno M.D. 03/27/2025 11:14 AM Dictation Location: [place] [address] Tech: Le Millan Transcribed By: PWS 03/27/25 1114 Dictated By: Gerber Moreno II, MD 03/27/25 1111 Signed By: <Electronically signed by Gerber Moreno II, MD in OV> 03/27/25 1114 Narrative 03/27/2025 11:16 AM EDT [place] [address] Ultrasound Report Signed Patient: King Moreno MR#: [id number] : 1960 Acct:[id number] Age/Sex: 64 / F ADM Date: 03/26/25 Loc: 4P Room: 1W4983-6 Type: ADM IN Attending Dr: Yonis Covington [...] Procedure Note Gerber Moreno MD - 03/27/2025 [place] [address] Ultrasound Report Signed Patient: King Moreno AMR#: [id number] : 1960cct:[id number] Age/Sex: 64 / FADM Date: 03/26/25 Loc: 4P Room: 5P7860-8Ahyj: ADM IN Attending Dr: Yonis Covington DO Ordering Provider: Lorrie Winn MD-[facility] Date of Service: 03/27/25 US/US [...] Moreno M.D. 03/27/2025 11:14 AM Dictation Location: [place] [address] Tech: Le Millan Transcribed By: KATHLEEN 03/27/25 1114 Dictated By: Gerber Moreno II, MD 03/27/25 1111 Signed By: <Electronically signed by Gerber Moreno II, MD inOV> 03/27/25 1114 Lorrie Winn MD [facility] PROCEDURES Final Result * CARCINOEMBRYONIC ANTIGEN (03/26/2025 5:52 PM EDT) CARCINOEMBRYONIC ANTIGEN 1.4 0.0 - 3.0 ng/mL 03/26/2025 6:49 PM EDT [facility] Comment: Serial tumor marker results determined by assays using different manufacturers or methods may not be comparable. [facility] Laboratory glove printer and method: SAEED UNICEL DXI, 2 SITE IMMUNOENZYMATIC S ANDWICH ASSAY. Other Topography unknown / Unknown 03/26/2025 5:52 PM EDT 03/26/2025 6:10 PM EDT Lorrie Winn MD LAB BLOOD ORDERABLES Final Res ult Performing Organization Address [facility] de Phone Number [facility] [address] [place] [address], [facility] [address] [place] [address] * [place] 125 (03/26/2025 5:52 PM EDT) Pathologist [facility] CANCER ANTIGEN 125 10.3 0.0 - 38.1 03/29/2025 3:36 AM EDT [facility] Comment: [facility] Electrochemiluminescence Immunoassay (ECLIA) Values obtained with different assay methods or kits cannot be used interchangeably. Results cannot be interpreted as absolute evidence of the presence or absence of malignant disease. Performed at: [address] [id number] Engineering Writer: Jose Damon PhD, Phone: [phone] Other Topography unknown / Unknown 03/26/2025 5:52 PM EDT 03/26/2025 6:10 PM EDT Lorrie Winn MD LAB BLOOD ORDERABLES Final Res ult Performing Organization Address [facility] [place] [address], from Last 3 Months Insurance AN[employer]M MEDICARE ADVANTAGE MEDICAID [place] Care Teams Acoustic Intelligence Specialist Relationship Specialty Start Date End Date Conchita Aden MD PCP - General Family Medicine 11/07/24
--- OUTSIDE RECORDS SUMMARY | 2025-06-07 13:58 | XMS_ITS | Encounter Summary ---
Author Organization [facility] Address [address] [place] [address] Phone Care Team Providers Care Rn Chemical Dependency Name Role Phone Tremaine West DO Primary Care Provider Ania Brothers LABORER POWERHOUSE-CLERK OF COURT Unavailable Unavailable June Preston MD Unavailable Sol Keita METER REPAIRER HELPER Unavailable [phone] June Preston MD Unavailable Oscar Rodriguez MD Unavailable [phone] Generic Provider, No Assigned Pcp Primary Car e Provider Unavailable Diane Min RN Unavailable Unavailable June Preston MD Unavailable Conchita Aden MD Primary Care Provider [phone] Dinae Min RN Unavailable Unavailable Earlene Eubanks RN Unavailable Encounter Details Date Type Department Care Team (Late st Contact Info) Description 05/27/2022 Orders Only [facility] LE[facility] [address] [place] [address] Conversion, Onbase Social History Tobacco Use Types [...] Department Care Team (Late Contact Info) Description 07/14/2025 1:00 PM EDT Office Visit [facility] [address] [facility] [address] [place] [address] Oscar Rodriguez MD [address] [place] [address] 09/26/2025 12:20 PM EST Appointment [facility] [address] [place] [facility] [place] [address] 09/26/2025 1:00 PM EST Office Visit [facility] [address] [facility] [address] [place] [address] June Preston MD [address] [facility] Medical Office Bldg, [address] [place], [place] [phone] Scheduled Orders Name Type Priority Associated Diagnoses [...] as of this encounter Care Teams Rn Chemical Dependency Relationship Specialty Start Date End Date Tremaine West DO [address] [facility] Tremaine West DO [facility] [address] [place] [address] PCP - General 01/22/22 11/05/23 Generic Provider, No [place] [address] PCP - General Oceanographer Physical 08/08/24 11/10/24 Conchita Aden MD [address] [place] [address] [place] [address] PCP - General Family Medicine 11/11/24 Ania Brothers, LABORER POWERHOUSE-CLERK OF COURT [address] [facility], DO [address] [place] [address] Nurse Practitioner Cardiology 09/30/23 02/16/24 June Preston MD [address] [facility] [place] Tremaine [facility], [address] [place] [address] Law Professor Cardiology 09/30/23 02/16/24 Sol Keita, [facility] Auto Slip Cover InstallerDispatcher Tow Truck 02/19/24 05/17/24 June Preston MD [address] [facility], [address] [place] [address] Consulting Physician Cardiology 02/19/24 02/29/24 Oscar Rodriguez MD 7[address] [facility] 2, [address] [place] [address] Consulting Physician Cardiology 02/19/24 02/29/24 Diane Min RN Care Dispatcher Tow Truck 09/05/24 12/06/24 June Preston MD [address] [facility], [address] [place] [address] Law Professor Electrophysiology 09/13/24 Diane Min, continuous process rotary drum tannerDispatcher Tow Truck 01/16/25 01/31/25 Earlene Eubanks RN Auto Slip Cover InstallerDispatcher Tow Truck 04/17/25 documented as of this encounter
--- OUTSIDE RECORDS SUMMARY | 2025-06-07 13:58 | XMS_ITS | Encounter Summary ---
Author Organization [facility] Address [address] [place] [address] Phone Care Team Providers Care Dry Kiln Feeder Name Role Phone Tremaine West DO Primary Care Provider Ania Brothers IT PORTFOLIO MANAGER-NUTRITIONIST PUBLIC HEALTH Unavailable Unavailable June Presotn MD Unavailable Sol Keita TOLL LINE MECHANIC Unavailable June Preston MD Unavailable Oscar Rodriguez MD Unavailable [phone] Generic Provider, No Assigned Pcp Primary Car e Provider Unavailable Diane Min RN Unavailable Unavailable June Preston MD Unavailable Conchita Aden MD Primary Care Provider [phone] Diane Min RN Unavailable Unavailable Earlene Eubanks RN Unavailable Encounter Details Date Type Department Care Team (Late st Contact Info) Description 07/04/2020 Orders Only [facility] [address] [place] [address] Conversion, Onbase Social History Tobacco Use Types [...] Description 07/14/2025 1:00 PM EDT Office Visit [facility] [address] [facility] [address] [place] [address] Oscar Rodriguez MD [address] [place] [address] 09/26/2025 12:20 PM EST Appointment [facility] [address] [place] [address] 09/26/2025 1:00 PM EST Office Visit [facility] [address] [facility] [address] [place] [address] June Preston MD [address] [facility] Medical [address], [address] [place], [place] [phone] Scheduled Orders Name Type Priority Associated Diagnoses [...] documented as of this encounter Care Teams Dry Kiln Feeder Relationship Specialty Start Date End Date Tremaine West DO [address] [facility] Tremaine West DO [facility] [address] [place] [address] PCP - General 01/22/22 11/05/23 Generic Provider, No [place] [address] PCP - General Workforce Consultant 08/08/24 11/10/24 Conchita Aden MD [facility] [place] [address] PCP - General Family Medicine 11/11/24 Ania Brothers, IT PORTFOLIO MANAGER-NUTRITIONIST PUBLIC HEALTH [address] [facility] [address] [place] [address] Nurse Practitioner Cardiology 09/30/23 02/16/24 June Preston MD [address] [facility] Tremaine [facility] [address] [place] [address] Chain Person Cardiology 09/30/23 02/16/24 Sol Keita, TOLL LINE MECHANIC Administrative Services ManagerTool Specialist 02/19/24 05/17/24 June Preston MD [address] [facility], [address] [place] [address] Consulting Physician Cardiology 02/19/24 02/29/24 Oscar Rodriguez MD 703 [facility] 2, [address] [place] [address] Consulting Physician Cardiology 02/19/24 02/29/24 Diane Min RN Care Tool Specialist 09/05/24 12/06/24 June Preston MD [address] [facility], [address] [place] [address] Chain Person Electrophysiology 09/13/24 Diane Min, moving van driverTool Specialist 01/16/25 01/31/25 Earlene Eubanks RN Administrative Services ManagerTool Specialist 04/17/25 documented as of this encounter
--- OUTSIDE RECORDS SUMMARY | 2025-06-07 13:58 | XMS_ITS | Encounter Summary ---
Author Organization [facility] Address [address] [place] [address] Care Team Providers Care Reimbursement Auditor Name Role Phone Conchita Aden MD Primary Care Provider [phone] Encounter Details Date Type Department Care Team (Late Contact Info) Description 10/30/2024 Clinisync Result Encounter [facility] External Department Unsolicited Charity Gerard PA [address] [place] [address] [place] [address] Social History Tobacco Use Types [...] EST Narrative 10/31/2024 6:59 AM EST The [address] [address] Electrocardiograph Report Signed Patient: KING MORENO MR#: [id number] : 1960 Acct:[id number] Age/Sex: 63 / F ADM Date: 10/30/24 Loc: [place] 203-[address]: Parmjit Poon M.D. Ordering Physician: Charity Gerard Date of Service: 10/30/24 Procedure(s): ECG 12 lead Accession Number(s): [id number] cc: [facility] Test Date: 2024-10-30 Pat Name: KING MORENO Department: Room: - Gender: Female Promotions Intern: : 1960 Requested By: CONCHITA ADEN Order Number: [id number] Reading MD: FELIZ JENNINGS Measurements Intervals [place] Rate: 94 P: 68 CT: 126 QRS: 56 QRSD: 84 T: 90 QT: 348 QTc: 399 Interpretive Statements 1100 Sinus rhythm 4068 Nonspecific Twave abnormality, can't exclude inferolateral ischemia 8102 Low QRS voltage in chest leads 9130 borderline ECG Compared to ECG 10/29/2024 16:19:34 No significant changes Electronically Signed On 10-31-2024 6:59:03 EST by FELIZ JENNINGS Dictated By: Feliz Jennings D.O. Signed By: 10/31/24 0659 DD/ 1500 TD/TT: Database Architect: Procedure Note Radiology, Radiologist, MD - 10/31/2024 [place] [address] Electrocardiograph Report Signed Patient: KING MORENO AMR#: [id number] : 1Acct:[id number] Age/Sex: 63 / FADM Date: 10/30/24 Loc: MS 203-[address]: Parmjit Poon M.D. Ordering Physician: Charity Gerard Date of Service: 10/30/24 Procedure(s): ECG 12 lead Accession Number(s): [id number] cc: [facility] [place] Test Date: 2024-10-30 Pat Name: KING MORENO Department: Room: - Gender: Female Promotions Intern: : 1960 Requested By: CONCHITA ADEN Order Number: [id number] Reading MD: FELIZ JENNINGS Measurements Intervals [place] Rate: 94 P: 68 CT: 126 QRS: 56 QRSD: 84 T: 90 QT: 348 QTc: 399 Interpretive Statements 1100 Sinus rhythm 4068 Nonspecific Twave abnormality, can't exclude inferolateral ischemia 8102 Low QRS voltage in chest leads 9130 borderline ECG Compared to ECG 10/29/2024 16:19:34 No significant changes Electronically Signed On 10-31-2024 6:59:03 EST by FELIZ JENNINGS Dictated By: Feliz Jennings D.O. Signed By:10/31/24 0659 DD/ 1500 TD/TT: Database Architect: Charity [facility] Final Result documented in this encounter Visit Diagnoses Not on filedocumented in this encounter Care Teams Reimbursement Auditor Relationship Specialty Start Date End Date Conchita Aden MD PCP - General Family Medicine 11/07/24 documented as of this encounter
--- OUTSIDE RECORDS SUMMARY | 2025-06-07 13:58 | XMS_ITS | Clinical Summary ---
Author Organization [employer] Address [id number] [address] [place] [address] Care Team Providers Care Tobacco Hanger Name Role Phone Unavailable Primary Care Provider [...] 2 diabetes mellitus 1 11/30/2022 Atherosclerosis of [place] co ronary artery of [place] heart without angina pectoris 07/29/2023 Chronic obstructive pulmonary disease 07/29/2023 Chronic systolic CHF (congestive heart failure) 07/29/2023 Current every day smoker 07/29/2023 Essential hypertension 07/29/2023 Intermittent claudication 07/29/2023 Pulmonary embolism 07/29/2023 Type 2 diabetes mellitus 07/29/2023 Gastroesophageal reflux disease without esophagi tis 11/25/2021 Vascular insufficiency of intestine 04/09/2015 Social History Tobacco Use Types Packs/Day Years [...] Negative Negative^N egative 12/01/2024 2:25 PM EST [facility] Hpv 18 Negative Negative^N egative 12/01/2024 2:25 PM EST [facility] Other high risk hpv Negative Negative^N egative 12/01/2024 2:25 PM EST [facility] Comment: HPV types 31,33,35,39,45,52,56,58,59,66 and 68 DNA were undetectable. THINP 11/29/2024 3:43 AM EST 12/01/2024 3:44 AM EST us Nanci Mcallister MD LAB BLOOD ORDERABLES Final Resul t [facility] [address] [facility] [facility] [place] [address] from Last 3 Months or Most Recently Relevant to Health Maintenance Insurance MEDICAID [place] MEDICARE
--- OUTSIDE RECORDS SUMMARY | 2025-06-07 13:58 | XMS_ITS | Encounter Summary ---
Author Organization [facility] Address [address] [place] [address] Care Team Providers Care Trash Collector Supervisor Name Role Phone Conchita Aden MD Primary Care Provider [phone] Encounter Details Date Type Department Care Team (Late st Contact Info) Description 03/27/2025 External Result Encounter [facility] External Department Unsolicited Lorrie Winn MD [address] [facility] [address] [place] [address] Social History Tobacco Use Types Packs/Day Years [...] Moreno M.D. 03/27/2025 11:14 AM Dictation Location: [facility] Tech: Le [place] Transcribed By: PWS 03/27/25 1114 Dictated By: Gerber Moreno II, MD 03/27/25 1111 Signed By: <Electronically signed by Gerber Moreno II, MD in OV> 03/27/25 1114 Narrative 03/27/2025 11:16 AM EDT [facility] [place] [address] Ultrasound Report Signed Patient: Latanya Martinez MR#: [id number] : 1960 Acct:[id number] Age/Sex: 64 / F ADM Date: 03/26/25 Loc: Room: [address] [place] [address] Type: ADM IN Attending Dr: Yonis Covington [...] Note Gerber Moreno MD - 03/27/2025 [facility] Main [place] [address] [place] [address] Ultrasound Report Signed Patient: Latanya Martinez AMR#: [id number] : 1960cct:[id number] Age/Sex: 64 / FADM Date: 03/26/25 Loc: Room: [id number]: ADM IN Attending Dr: Yonis Covington DO [...] Moreno M.D. 03/27/2025 11:14 AM Dictation Location: [place] [address] Tech: Le Millan Transcribed By: [facility] 03/27/25 1114 Dictated By: Gerber Moreno II, MD 03/27/25 1111 Signed By: <Electronically signed by Gerber Moreno II, MD inOV> 03/27/25 1114 us Lorrie Winn MD IMG US PROCEDURES Final Result documented in this encounter Visit Diagnoses Not on filedocumented in this encounter Care Teams Trash Collector Supervisor Relationship Specialty Start Date End Date Conchita Aedn MD PCP - General Family Medicine 11/07/24 documented as of this encounter
--- OUTSIDE RECORDS SUMMARY | 2025-06-07 13:58 | XMS_ITS | Encounter Summary ---
Author Organization [facility] Address [address] [place] [address] Phone Care Team Providers Care Textile Scrap Salvager Name Role Phone Sol Keita CharlesJanet RUCHI Unavailable June Preston MD Unavailable Oscar Rodriguez MD Unavailable [phone] Generic Provider, No Assigned Pcp Primary Car e Provider Unavailable Diane Min RN Unavailable Unavailable June Preston MD Unavailable Conchita Aden MD Primary Care Provider [phone] Diane Min RN Unavailable Unavailable Earlene Eubanks RN Unavailable Encounter Details Date Type Department Care Team (Late st Contact Info) Description 02/19/2024 Scanned Document [facility] [address] [place] [address] Scanning, Generic Provider Social History Tobacco Use [...] Description 07/14/2025 1:00 PM EDT Office Visit [facility] [address] [facility] [address] [place] [address] Oscar Rodriguez MD [address] [facility] 2, [address] [place] [address] 09/26/2025 12:20 PM EST Appointment [facility] [address] [place] [address] 09/26/2025 1:00 PM EST Office [facility] [address] [place] [address] June Preston MD [address] [facility], [facility] [address] [place], [place] [address] documented as of this encounter Visit Diagnoses [...] documented as of this encounter Care Teams Textile Scrap Salvager Relationship Specialty Start Date End Date Generic Provider, No Assigned [place] [address] PCP - General Social Science Manager 08/08/24 11/10/24 Conchita Aden MD [address] [place] [address] [place] [address] PCP - General Family Medicine 11/11/24 Sol Keita, FRONT FACER Swiss Type Screw Machine OperatorDental Officer 02/19/24 05/17/24 June Preston MD [address] [facility], [facility] [address] [place] [address] Consulting Physician Cardiology 02/19/24 02/29/24 Oscar Rodriguez MD [address]03 [facility] 2, [address] [place] [address] Consulting Physician Cardiology 02/19/24 02/29/24 Diane Min, hydro plant site managerDental Officer 09/05/24 12/06/24 June Preston MD [address] [facility] [address] [place] [address] X Ray Examiner Of Aircraft Electrophysiology 09/13/24 Diane Min, hydro plant site managerDental Officer 01/16/25 01/31/25 Earlene Eubanks, PAULA Swiss Type Screw Machine OperatorDental Officer 04/17/25 documented as of this encounter
--- OUTSIDE RECORDS SUMMARY | 2025-06-07 13:58 | XMS_ITS | Encounter Summary ---
Author Organization [facility] Address [address] [place] [address] Phone Care Team Providers Care Can Reconditioner Name Role Phone June Preston MD Unavailable Conchita Aden MD Primary Care Provider [phone] Earlene Eubanks RN Unavailable Encounter Details Date Type Department Care Team (Late st Contact Info) Description 04/24/2025 Scanned Document [facility] [address] [place] [address] Scanning, Generic Provider Social History Tobacco Use [...] from your doctor or pharmacy? Never 01/08/2025 [facility] Utilities Answer Date Recorded In [...] No 04/14/2025 Social Connection and Isolation Panel Answer Date Recorded In a typical week, how many times do you talk on the phone with family, friends, or neighbors? Once a week 01/08/2025 How often do you get togethe r with friends or relatives? Once a week 01/08/2025 How often do you attend congregation or christian serv ices? Patient declined 01/08/2025 Do you belong to any clubs o r organizations such as congregation groups, unions, fraternal or athletic groups, or [...] Recorded Patient Health Questionnaire-2 Score 0 04/14/2025 [facility] [place] of Occupat ional Health - Occupational Stress [...] in the past 12 m [facility], were you homeless or living in a fci (including now)? No 04/14/2025 Comments No Sex [...] Description 07/14/2025 1:00 PM EDT Office Visit [facility] [address] [facility] [address] [place] [address] Oscar Rodriguez MD [address] [facility] 2, [address] [place] [address] 09/26/2025 12:[address] [facility] [address] [place] [address] 09/26/2025 1:00 PM EST Office Visit [facility] [address] [facility] [address] [place] [address] June Preston MD [address] [facility] Office [facility], [facility] [address] [place], [place] [address] documented as of this encounter Visit Diagnoses Not on filedocumented in this encounter Additional Health Concerns Assessment Noted Time PHQ-9 Depression Total Score: 9 01/23/20 22 11:33 AM EDT A fall risk assessment has been complete d for the patient 03/01/2024 12:30 PM EDT documented as of this encounter Care Teams Can Reconditioner Relationship Specialty Start Date End Date Conchita Aden MD [address] [place] [address] PCP - General Family Medicine 11/11/24 June Preston MD [address] [facility], [facility] [address] [place] [address] Field Clerk Electrophysiology 09/13/24 Earlene Eubanks, RN High Lift OperatorDryer And Washer Mechanic 04/17/25 documented as of this encounter
--- OUTSIDE RECORDS SUMMARY | 2025-06-07 13:58 | XMS_ITS | Encounter Summary ---
Author Organization [facility] Address [address] [place] [address] Phone Care Team Providers Care Enrollment Management Director Name Role Phone Tremaine West DO Primary Care Provider Ania Brothers MONEY LAUNDERING INVESTIGATOR-AUTO EMISSIONS TECHNICIAN Unavailable Unavailable June Preston MD Unavailable Sol Keita LANGUAGE THERAPIST Unavailable June Preston MD Unavailable Oscar Rodriguez MD Unavailable [phone] Generic Provider, No Assigned Pcp Primary Car e Provider Unavailable Diane Min RN Unavailable Unavailable June Preston MD Unavailable Conchita Aden MD Primary Care Provider [phone] Diane Min RN Unavailable Unavailable Earlene Eubanks RN Unavailable Encounter Details Date Type Department Care Team (Late st Contact Info) Description 06/30/[address] [facility] LE[facility]Y [address] [place] [address] Conversion, Onbase Social History Tobacco Use Types [...] Description 07/14/2025 1:00 PM EDT Office Visit [facility] 703 [facility] [address] [place] [address] Oscar Rodriguez MD [address], [address] [place] 09/26/2025 12:20 PM EST Appointment [facility] [address] [facility] [place] [place] [address] 09/26/2025 1:00 PM EST Office Visit [facility] [address] [facility] [address] [place] [address] June Preston MD [address] [facility] [address], [address] [place], [place] [address] Scheduled Orders Name Type Priority Associated Diagnoses [...] documented as of this encounter Care Teams Enrollment Management Director Relationship Specialty Start Date End Date Tremaine West DO 1610 [facility] Tremaine West DO [facility] [address] [place] [address] PCP - General 01/22/22 11/05/23 Generic Provider, No [place] [address] PCP - General Machines Technician 08/08/24 11/10/24 Conchita Aden MD [facility]5 [facility] [place] [address] PCP - General Family Medicine 11/11/24 Ania Brothers, MONEY LAUNDERING INVESTIGATOR-AUTO EMISSIONS TECHNICIAN 1610 [facility] [address] [place] [address] Nurse Practitioner Cardiology 09/30/23 02/16/24 June Preston MD [address]10 [facility] Tremaine [facility] [address] [place] [address] Lead Software Architect Cardiology 09/30/23 02/16/24 Sol Keita, LANGUAGE THERAPIST Refinery TechnicianBanking Paralegal 02/19/24 05/17/24 June Preston MD [address] [facility], [address] [place] [address] Consulting Physician Cardiology 02/19/24 02/29/24 Oscar Rodriguez MD 703 [facility] 2, [address] [place] [address] Consulting Physician Cardiology 02/19/24 02/29/24 Diane Min RN Care Banking Paralegal 09/05/24 12/06/24 June Preston MD [address] [facility], [address] [place] [address] Lead Software Architect Electrophysiology 09/13/24 Diane Min, driver/guideBanking Paralegal 01/16/25 01/31/25 Earlene Eubanks RN Refinery TechnicianBanking Paralegal 04/17/25 documented as of this encounter
--- OUTSIDE RECORDS SUMMARY | 2025-06-07 13:58 | XMS_ITS | Encounter Summary ---
Author Organization [facility] Address [address] [place] [address] Phone Care Team Providers Care Transition Mgr Rn Name Role Phone Tremaine West DO Primary Care Provider Ania Brothers OXYGRAPH OPERATOR-DAMPPROOFER Unavailable Unavailable June Preston MD Unavailable Sol Keita LIFT TRUCK MECHANIC Unavailable June Preston MD Unavailable Oscar Rodriguez MD Unavailable [phone] Generic Provider, No Assigned Pcp Primary Car e Provider Unavailable Diane Min RN Unavailable Unavailable June Preston MD Unavailable Conchita Aden MD Primary Care Provider [phone] Diane Min RN Unavailable Unavailable Earlene Eubanks RN Unavailable Encounter Details Date Type Department Care Team (Late st Contact Info) Description 07/22/2023 Scanned Document [facility] LE[facility]Y [address] [place] [address] Conversion, Onbase Social History Tobacco Use Types [...] Office Visit [facility] [address] [place] [address] Oscar Rodriguez MD [address], [address] [place] [address] 09/26/2025 12:20 PM EST Appointment [facility] [address] [place] [address] 09/26/2025 1:00 PM EST Office Visit [facility] [address] [facility] [address] [place] [address] June Preston MD [address] [facility] Medical Office Bldg, [address] [place], [place] [address] documented as of this encounter Procedures Procedure [...] documented as of this encounter Care Teams Transition Mgr Rn Relationship Specialty Start Date End Date LisethyukoTremaine falcon DO 1610 [facility] Tremaine West, DO [address] [place] [address] PCP - General 01/22/22 11/05/23 Generic Provider, No Assigned P[place], [place] [address] PCP - General Food Safety Technician 08/08/24 11/10/24 Conchita Aden MD [address] [place] [address] [place] [address] PCP - General Family Medicine 11/11/24 Ania Brothers APRN-DAMPPROOFER 1610 [facility] Tremaine Jenna, DO [address] [place] [address] Nurse Practitioner Cardiology 09/30/23 02/16/24 June Preston MD 1610 [facility] Tremaine Childerscristino, DO [address] [place] [address] Division Traffic Superintendent Cardiology 09/30/23 02/16/24 Sol Keita, LIFT TRUCK MECHANIC Washtub Worker HelperInventory Clerk 02/19/24 05/17/24 June Preston MD [address] [facility] [address] [place] [address] Consulting Physician Cardiology 02/19/24 02/29/24 Oscar Rodriguez MD 703 [facility] 2, [address] [place] [address] Consulting Physician Cardiology 02/19/24 02/29/24 Diane Min, hydraulic hammer operatorInventory Clerk 09/05/24 12/06/24 June Preston MD [address] [facility], [address] [place] [address] Division Traffic Superintendent Electrophysiology 09/13/24 Diane Min, hydraulic hammer operatorInventory Clerk 01/16/25 01/31/25 Earlene Eubanks, PAULA Washtub Worker HelperInventory Clerk 04/17/25 documented as of this encounter
--- OUTSIDE RECORDS SUMMARY | 2025-06-07 13:58 | XMS_ITS | Encounter Summary ---
Author Organization [facility] Address [address] [place] [address] Phone Care Team Providers Care Senior Qa Analyst Name Role Phone Tremaine West DO Primary Care Provider Ania Brothers OUTPATIENT FACILITY PHYSICAL THERAPIST-HEALTHCARE ANALYST Unavailable Unavailable June Preston MD Unavailable Sol Keita CIVIL ENGINEERING SPECIALIST Unavailable June Preston MD Unavailable Oscar Rodriguez MD Unavailable [phone] Generic Provider, No Assigned Pcp Primary Car e Provider Unavailable Diane Min RN Unavailable Unavailable June Preston MD Unavailable Conchita Aden MD Primary Care Provider [phone] Diane Min RN Unavailable Unavailable Earlene Eubanks RN Unavailable Encounter Details Date Type Department Care Team (Late st Contact Info) Description 09/08/2019 Orders Only [facility] [address] [place] [address] Conversion, Onbase Social History Tobacco Use Types [...] Description 07/14/2025 1:00 PM EDT Office Visit [facility] [address] [facility] [address] [place] [id number] Oscar Rodriguez MD [address] [place] [address] 09/26/2025 12:[address] [facility] [address] [place] [address] 09/26/2025 1:00 PM EST Office Visit [facility] [address] [facility] [address] [place] [phone] June Preston MD [address] [facility] [address] [place], [place] [id number] Scheduled Orders Name Type Priority Associated Diagnoses [...] documented as of this encounter Care Teams Senior Qa Analyst Relationship Specialty Start Date End Date Tremaine West DO [address] [facility] Tremaine West DO [facility] [address] [place] [address] PCP - General 01/22/22 11/05/23 Generic Provider, [place] [address] PCP - General Floor Worker Well Service 08/08/24 11/10/24 Conchita Aden MD [facility] [facility] [place] [address] PCP - General Family Medicine 11/11/24 Ania Brothers, OUTPATIENT FACILITY PHYSICAL THERAPIST-HEALTHCARE ANALYST [address] [facility] [address] [place] [address] Nurse Practitioner Cardiology 09/30/23 02/16/24 June Preston MD [address] [facility] Tremaine [facility], DO [address] [place] [address] [employer] Cardiology 09/30/23 02/16/24 Sol Keita, CIVIL ENGINEERING SPECIALIST Commercial Litigation ParalegalTufting Machine Operator 02/19/24 05/17/24 June Preston MD [address] [facility] [place] [address] Consulting Physician Cardiology 02/19/24 02/29/24 Oscar Rodriguez MD [address] [facility] [address] [place] [address] Consulting Physician Cardiology 02/19/24 02/29/24 Diane Min RN Care Tufting Machine Operator 09/05/24 12/06/24 June Preston MD [address] [facility] [place] [address] [employer] Electrophysiology 09/13/24 Diane Min, urology physician assistantTufting Machine Operator 01/16/25 01/31/25 Earlene Eubanks RN [employer] ParalegalTufting Machine Operator 04/17/25 documented as of this encounter
--- OUTSIDE RECORDS SUMMARY | 2025-06-07 13:58 | XMS_ITS | Clinical Summary ---
Author Organization [facility] Address [address] [place] [address] Phone Care Team Providers Care Receipt And Report Clerk Name Role Phone June Preston MD Unavailable Conchita Aden MD Primary Care Provider [phone] Earlene Eubanks RN Unavailable Allergies No known [...] aspirin 81 mg EC tabletIndications: Atherosclerosis of tejon coronary artery of tejon heart without angina pectoris Take 1 tablet (81 mg) by mouth 2 times a week. 11/14/19 25 Active rosuvastatin (Crestor) 20 mg tabletIndications: Atherosclerosis of tejon coronary artery of tejon heart [...] long-term current use of insulin,Atheroscle rosis of tejon coronary artery of tejon heart without angina pectoris,Chronic systolic CHF (congestive heart failure) Take 1 tablet (300 mg) by mouth once daily in the morning. Take before meals. 90 tablet 3 11/21/19 25 026 Active ranolazine (Ranexa) 500 mg 12 hr tabletIndications: Atherosclerosis of tejon coronary artery of tejon heart [...] day as needed for diarrhea. 30 capsule 03/14/20 25 Active Additional Information Patient not taking.Informant: Self, Reported on 04/15/2025 metoprolol succinate XL (Toprol-XL) 25 mg 24 hr tabletIndications: VT (ventricular tachycardia) (Multi) Take 2 tablets (50 mg) by mouth once daily. 60 tablet 11 01/14/20 026 Active amiodarone (Pacerone) 200 mg tabletIndications: Paroxysmal ventricular tachycardia Take 1 tablet (200 mg) by mouth once daily. Do not fill before January 28, 2025. 90 tablet 1 01/29/20 25 026 Active ascorbic acid (Vitamin C) 500 mg chewable tablet Chew 1 tablet (500 mg) once daily. 03/30/20 Active ferrous sulfate 324 mg (65 mg elemental iron) EC tablet (delayed release) Take 1 tablet (65 mg) by mouth every other day. 03/30/20 Active rOPINIRole (Requip) 1 mg tablet Take 1 tablet (1 mg) by mouth 3 times a day. 02/09/20 Active Active Problems Problem Noted Date Diagnosed [...] i) 09/30/2023 Moderate persistent asthma without complication ([facility]) 09/30/2023 Oral thrush 09/30/2023 Oropharyngeal dysphagia 09/30/2023 Polyneuropathy due to type 2 diabetes mellitus ( Multi) 09/30/2023 Stable angina pectoris due t o arteriosclerosis of coronary artery 09/30/2023 Urge incontinence of urine 09/30/2023 Atherosclerosis of tejon co ronary artery of tejon heart without angina pectoris 07/29/2023 Chronic obstructive [...] bowel function Postoperative pain 05/23/2015 Overview (09/30/2023): 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 pump and will transition to oral medication [...] Encounters Date Type Department Care Team Description 05/10/2025 Patient Outreach [facility] [address] [place] [phone] Earlene Eubanks, PAULA 04/24/2025 Scanned Document [facility] [address] [place] [address] Scanning, Generic Provider 04/18/2025 Patient Outreach [facility] [address] [place] [address] Earlene Eubanks, PAULA 04/17/2025 Telephone [facility] [address] [place] [address] Erika De La Cruz RN 04/14/2025 1:09 PM EDT Anesthesia Event [facility] [address] [facility] [address] [place] [address] Joyce Adan MD Sexton, Hannah, RN 04/14/2025 11:00 AM EDT - 04/14/2025 3:00 PM EDT Surgery [facility] [address] [facility] [address] [place] [address] [place] [[address] (CPT )] 04/14/2025 9:10 AM EDT - 04/15/2025 1:15 PM EDT Hospital Encounter [facility] [address] [place] [address] Kervin Deshpande MD ICD (implantable cardioverter-defibril lator) in place (Primary Dx); Ventricular tachycardia (Multi) Discharge Disposition: Home 04/14/2025 Travel 04/03/2025 1:00 PM EDT - 04/03/2025 11:59 PM EDT Hospital Encounter [facility] [address] [place] [address] Ventricular tachycardia (CMS/HCC); Abnormal result of cardiovascular function study, unspecified Discharge Disposition: Home 04/03/2025 Travel 03/09/2025 9:35 AM EDT - 03/09/2025 11:59 PM EDT Hospital Encounter [place] [address] [place] [address] ICD (implantable cardioverter-defibril lator) in place; Paroxysmal ventricular tachycardia Discharge Disposition: Home from Last 3 Months [...] 0.5 50.6 Started: 1974 Smokeless Tobacco: Never Tobacco Cessation:Ready [...] from your doctor or pharmacy? Never 01/08/2025 [facility] Utilities Answer Date Recorded In the [...] week 01/08/2025 How often do you attend mosque or synagogue serv ices? Patient declined 01/08/2025 Do you belong to any clubs o r organizations such as mosque groups, unions, fraternal or athletic groups, or [...] Recorded Patient Health Questionnaire-2 Score 0 04/14/2025 [facility] - Occupational Stress Questionnaire Answer [...] living in a detention (including now)? No 04/14/2025 Comments No Sex [...] Description 07/14/2025 1:00 PM EDT Office Visit [facility] [address] [facility] [address] [place] [address] Oscar Rodriguez MD [address] [facility] 2, [facility] [address] [place] [address] 09/26/2025 12:20 PM EST Appointment [facility] [address] [place] [address] 09/26/2025 1:00 PM EST Office Visit [facility] [address] [facility] [address] [place] [address] June Preston MD [address] [facility] Medical Office [facility], [facility] [address] [place] [address] Health Maintenance Due Date Last Done Comments [...] PCV) 04/16/2021 04/16/2020, 12/08/2016, 11/09/2006 COVID-19 Vaccine ( season) 2024 06/21/2021, 02/19/2021 Diabetes: Hemoglobin A1C 04/10/2025 01/08/2025, 0205/2022 Influenza Vaccine (#1) 2025 , 01/22/2021, 08/02/2019, Additional history exists TSH Level [...] this topic Medical Devices Implanted Type Area Pencils Washer Device Identifier Shelf Expiration Date Model / [...] TIME HIGH Routine 04/14/2025 3:20 PM EDT IA AN ELECTIVE ENDOTRACHEAL AIRWAY Routine 04/14/2025 2:44 [...] cardioverter-defibri llator) in place Paroxysmal ventricular tachycardia BASIC METABOLIC PANEL Pending Discharge 01/13/2025 5:23 [...] 10:35 PM EDT) Only the most recent of2 resultswithin the time period is included. Ventricular Rate 80 BPM MUSE Atrial Rate 80 BPM MUSE IA Interval 144 ms MUSE QRS Duration 112 ms MUSE QT Interval 424 ms MUSE QTC Calculation(Baze tt) 489 ms MUSE P [place] 55 degrees MUSE R [place] 10 degrees MUSE T [place] 55 degrees MUSE QRS Count 13 beats [...] procedure. Ventricular Tachycardia Ablation Procedures VT Ablation (26881), 3D Mapping (64372), His Bundle Recording (06724), Ultrasound Guided vascular access (85873), Intracardiac Echocardiogram (03833) Direct current cardioversion (48845) Patient history: Please refer to the detailed [...] SVC. The wire was removed and the Birmingham needle was advanced into the sheath. The Vizigo with the Birmingham needle were dragged from the SVC along the septum until engagement of the Fossa Ovalis was confirmed by interatrial tenting seen under intracardiac ultrasound guidance. The Birmingham needle was advanced into the left atrium [...] ELECTROPHYSIOLOGY PROCEDURES Final Result Performing Organization Address City/[facility]/ZIP Co de Phone Number [email or web address] * (ABNORMAL) ACTIVATED CLOTTING TIME HIGH (04/14/2025 5:17 PM EDT) [facility] POCT Activated Clotting Time High Range 353(H) 82 - 174 sec 04/14/2025 5:24 PM EDT [facility] Comment: Target ACT range will vary based on the patient population, clinical status, and surgical intervention occurring. Blood Venous blood specimen / Unknown 04/14/2025 5:17 PM EDT 04/14/2025 5:24 PM EDT Kervin Deshpande MD LAB POINT OF CARE TE ST DOCKED DEVICE UNSOLICITED RESULTS Final Result Performing Organization Address City/[facility]/ZIP Co de Phone Number [facility] [address] [place] [address] * (ABNORMAL) ACTIVATED CLOTTING TIME HIGH (04/14/2025 4:35 PM EDT) [facility] POCT Activated Clotting Time High Range 380(H) 82 - 174 sec 04/14/2025 4:42 PM EDT [facility] Comment: Target ACT range will vary based on the patient population, clinical status, and surgical intervention occurring. Blood Venous blood specimen / Unknown 04/14/2025 4:35 PM EDT 04/14/2025 4:42 PM EDT us Kervin Deshpande MD LAB POINT OF CARE TE ST DOCKED DEVICE UNSOLICITED RESULTS Final Result Performing Organization Address [facility] Co de Phone Number [facility] [id number] [place] [address] * (ABNORMAL) ACTIVATED CLOTTING TIME HIGH (04/14/2025 4:12 PM EDT) [facility] POCT Activated Clotting Time High Range 274(H) 82 - 174 sec 04/14/2025 4:18 PM EDT [facility] Comment: Target ACT range will vary based on the patient population, clinical status, and surgical intervention occurring. Blood Venous blood specimen / Unknown 04/14/2025 4:12 PM EDT 04/14/2025 4:18 PM EDT us Kervin Deshpande MD LAB POINT OF CARE TE ST DOCKED DEVICE UNSOLICITED RESULTS Final Result Performing Organization Address [facility] Co de Phone Number [facility] [address] [place] [address] * (ABNORMAL) ACTIVATED CLOTTING TIME HIGH (04/14/2025 3:47 PM EDT) [facility] POCT Activated Clotting Time High Range 214(H) 82 - 174 sec 04/14/2025 3:52 PM EDT [facility] Comment: Target ACT range will vary based on the patient population, clinical status, and surgical intervention occurring. Blood Venous blood specimen / Unknown 04/14/2025 3:47 PM EDT 04/14/2025 3:52 PM EDT us Kervin Deshpande MD LAB POINT OF CARE TE ST DOCKED DEVICE UNSOLICITED RESULTS Final Result Performing Organization Address [facility] Co de Phone Number [facility] [address] [place] [address] * (ABNORMAL) ACTIVATED CLOTTING TIME HIGH (04/14/2025 3:20 PM EDT) POCT Activated Clotting Time High Range 214(H) 82 - 174 sec 04/14/2025 3:27 PM EDT [facility] Comment: Target ACT range will vary based on the patient population, clinical status, and surgical intervention occurring. Blood Venous blood specimen / Unknown 04/14/2025 3:20 PM EDT 04/14/2025 3:27 PM EDT us Kervin Deshpande MD LAB POINT OF CARE TE ST DOCKED DEVICE UNSOLICITED RESULTS Final Result [facility] [id number] [place] [address] * IA AN ELECTIVE ENDOTRACHEAL AIRWAY (04/14/2025 2:44 PM [...] Line: Date/Time: 04/14/2025 1:54 PM Staffing Performed: SCIENTIFIC LINGUIST Authorized by: Emory Garcia MD Performed by: Charlotte Vigil RN An arterial line was placed. in the OR for the following indication(s): continuous blood pressure monitoring and blood sampling needed. A 20 gauge (size), 1 and 3/4 inch (length), Angiocath (type) catheter was placed into the Right radial artery, secured by Tegaderm, Seldinger technique used. Events: patient tolerated procedure well with no complications. Emory Garcia MD ANESTHESIA ORDERABLES Final Resu lt * (ABNORMAL) POCT GLUCOSE (04/14/2025 9:57 AM EDT) [facility] POCT Glucose 113(H) 74 - 99 mg/dL 04/14/2025 9:59 AM EDT [facility] Blood Capillary blood specimen / Unknown 04/14/2025 9:57 AM EDT 04/14/2025 9:59 AM EDT Kervin Deshpande MD LAB POINT OF CARE TE ST DOCKED DEVICE UNSOLICITED RESULTS Final Result [facility] [id number] [place], [place] [id number] * Path Review-Immunohematology (04/14/2025 9:50 AM EDT) [facility] PATH REV-IMMUNOHEMA TOLOGY Antibody detection screen is [...] for this patient. 04/17/2025 5:28 PM EDT [facility] Comment: . By the signature on this report, the individual or group listed as making the Final Interpretation/Diagnosis certifies that they have reviewed this case. Blood Venous blood specimen / Unknown Venipuncture / Unknown 04/14/2025 9:50 AM EDT 04/14/2025 10:04 AM EDT Kervin Deshpande MD LAB BLOOD BANK TEST ORDERABLES Final Result Performing Organization Address [facility] Co de Phone Number [facility] [address] [place] [address] * BB ORDER ONLY - Antibody Identification (04/14/2025 9:50 AM EDT) Antibody ID ANTI-LITTL E C 04/17/2025 11:57 AM EDT [facility] CASE # [id number] 04/17/2025 11:57 AM EDT [facility] Blood Venous blood specimen / Unknown Venipuncture / Unknown 04/14/2025 9:50 AM EDT 04/14/2025 10:04 AM EDT Narrative [facility] - 04/17/2025 11:57 AM EDT ANTI-E ANTIBODY COULD NOT BE RULED OUT AT THIS TIME. Kervin Deshpande MD LAB BLOOD BANK TEST ORDERABLES Final Result Performing Organization Address [facility] Co de Phone Number [facility] [address] [place] [address] * Type And Screen (04/14/2025 9:50 AM EDT) ABO TYPE A 04/14/2025 11:29 AM EDT [facility] Rh TYPE POS 04/14/2025 11:29 AM EDT [facility] ANTIBODY SCREEN POS 11:29 AM EDT [facility] Blood Venous blood specimen / Unknown Venipuncture / Unknown 04/14/2025 9:50 AM EDT 04/14/2025 10:04 AM EDT Kervin Deshpande MD LAB BLOOD BANK TEST ORDERABLES Final Result [facility] [address] [place] [address] * VERIFY ABO/Rh Group Test (04/14/2025 9:45 AM EDT) ABO TYPE A 04/14/2025 11:55 AM EDT [facility] Rh TYPE POS 04/14/2025 11:55 AM EDT [facility] Blood Venous blood specimen / Unknown Venipuncture / Unknown 04/14/2025 9:45 AM EDT 04/14/2025 10:06 AM EDT Kervin Deshpande MD LAB BLOOD BANK TEST ORDERABLES Final Result Performing Organization Address City/[facility] Co de Phone Number [facility] [address] [place] [address] * CT heart structure morphology w IV contrast (04/03/2025 1:36 PM EDT) Anatomical Region Laterality Modality Thoracic, Chest Computed Tomogra phy 04/03/2025 5:51 PM EDT 04/04/2025 1:17 AM EDT Impressions 04/04/2025 1:16 AM EDT 1. InHeart CTA protocol for late iodine enhancement. 2. Diffuse coronary artery disease s/p PCI/stent to LAD and D1 (patent) and proximal RCA (occluded). Correlate with prior C. 3. The distal LM has calcified plaque with <50% stenosis. 4. Moderate left ventricular dilatation. Correlate with TTE. 5. Mild bilateral upper zone predominant centrilobular emphysematous changes. Signed by: Anand Baugh 04/04/2025 1:16 AM Dictation workstation: [id number] [facility] 04/04/2025 1:16 AM EDT Interpreted By: Anand Baugh, and Brenda Bernabe STUDY: CT HEART STRUCTURE MORPHOLOGY W IV CONTRAST; 04/03/2025 1:36 pm INDICATION: Signs/Symptoms:For Ventricular Tachycardia ablation planning; late iodine enhancement CT scan; inHeart protocol; must be done at [facility]. COMPARISON: None. ACCESSION NUMBER(S): [id number] ORDERING CLINICIAN: KERVIN DESHPANDE TECHNIQUE: Using multi-detector [...] about 25-50% luminal stenosis which fills via [id number] collaterals. CARDIAC CHAMBERS: The cardiac chambers demonstrate [...] scan; inHeart protocol; must be done at [facility]. COMPARISON: None. ACCESSION NUMBER(S): [id number] ORDERING CLINICIAN: KERVIN DESHPANDE TECHNIQUE: Using multi-detector [...] It gives rise to a conus branch, otnny branch, and 0 acute marginal branches. In its distal segment it bifurcates into the PDA and PV branch. Status post stent placement of the proximal and mid RCA which appear to be occluded at the proximal segment. There is mild calcific atherosclerosis of the distal RCA resulting in about 25-50% luminal stenosis which fills via [id number] collaterals. CARDIAC CHAMBERS: The cardiac chambers demonstrate [...] Anand Baugh 04/04/2025 1:16 AM Dictation workstation: [id number] Kervin Deshpande MD IMG CT PROCEDURES Final Result * CARDIAC DEVICE CHECK - REMOTE - ICD (03/09/2025 9:38 AM EDT) Anatomical Region Laterality Modality Monitor/Device 03/09/2025 6:00 AM EDT us June Preston MD CV IMPLANTABLE CARDIAC DEVICE IA OCEDURES Final Result * (ABNORMAL) Basic Metabolic Panel (01/13/2025 5:23 AM EDT) Glucose 80 74 - 99 mg/dL LAB CHEMISTRY METHOD 01/13/2025 6:28 AM EDT [facility] Sodium 132(L) 136 - 145 mmol/L LAB CHEMISTRY METHOD 01/13/2025 6:28 AM EDT [facility] Potassium 3.6 3.5 - 5.3 mmol/L LAB CHEMISTRY METHOD 01/13/2025 6:28 AM EDT [facility] Chloride 99 98 - 107 mmol/L LAB CHEMISTRY METHOD 01/13/2025 6:28 AM EDT [facility] Bicarbonate 27 21 - 32 mmol/L LAB CHEMISTRY METHOD 01/13/2025 6:28 AM EDT [facility] Anion Gap 10 10 - 20 mmol/L LAB CHEMISTRY METHOD 01/13/2025 6:28 AM EDT [facility] Urea Nitrogen 7 6 - 23 mg/dL LAB CHEMISTRY METHOD 01/13/2025 6:28 AM EDT [facility] Creatinine 0.44(L) 0.50 - 1.05 mg/dL LAB CHEMISTRY METHOD 01/13/2025 6:28 AM EDT [facility] eGFR >90 >60 mL/min/1. 73m*2 LAB CHEMISTRY METHOD 01/13/2025 6:28 AM EDT [facility] Comment: Calculations of estimated GFR are performed using the 2020 CKD-EPI Study Refit equation without the race variable for the IDMS-Traceable creatinine methods. https://jasn.asnjournals.org/content///ASN.4326011373 Calcium 8.2(L) 8.6 - 10.3 mg/dL LAB CHEMISTRY METHOD 01/13/2025 6:28 AM EDT [facility] Blood Venous blood specimen / Unknown Venipuncture / Unknown 01/13/2025 5:23 AM EDT 01/13/2025 5:54 AM EDT us Gayle Max MD LAB BLOOD ORDERABLES Fin al Result [facility] [address] [place], [place] [id number] * TRANSTHORACIC ECHO (TTE) COMPLETE WITH CONTRAST [...] Narrative [facility] - 01/10/2025 8:51 AM EDT [place] [address] TRANSTHORACIC ECHOCARDIOGRAM REPORT [facility] Physician: [id number] Augustus Issa DO Study Date: 01/09/2025 Ordering Provider: [id number] DANI DODGE MRN/PID: [id number] Fellow: Nurse: Date of /Age: 1 1960 / 64 years Fence Post Driver: Gege Balbuena JADA Gender Assigned at F Additional Staff: : Height: 157.48 cm Admit Date: 01/08/2025 Weight: 67.59 kg Admission Status: Inpatient - Routine BSA / BMI: 1.69 m2 / 27.25 Department Location: [facility] kg/m2 Blood Pressure: 101 /55 mmHg Study Type: TRANSTHORACIC ECHO (TTE) COMPLETE Diagnosis/ICD: Ventricular tachycardia, other-I47.29 Indication: Multiple ICD firings CPT Codes: Echo Complete w Full Doppler-[id number] Patient History: Pacer/Defib: AICD Pertinent History: HTN, [...] LA Area A2C: 19.2 cm2 LA Major [place] A4C: 6.3 cm LA Major [place] A2C: 5.7 cm LA Volume Index: 33.4 ml/m2 RIGHT ATRIUM: Normal Ranges: RA Vol A4C: 32.8 ml (8.3-19.5ml) RA Vol Index A4C: 19.4 ml/m2 RA Area A4C: 13.1 cm2 RA Major [place] A4C: 4.4 cm LV SYSTOLIC FUNCTION: Normal [...] 1.0 m/s (0.6-0.9m/s) PV Max P.9 mmHg [id number] Issa DO Electronically signed on 01/10/2025 at 8:51:17 AM Wall Scoring Final Procedure Note Augustus Issa DO - 01/10/2025 [place] [address] TRANSTHORACIC ECHOCARDIOGRAM REPORT Patient Name: [facility] Gregory Physician: Demario Negrete Study Date: 01/09/2025 Ordering Provider: [id number] DODGE MRN/PID: [id number] Fellow: Nurse: Date of /Age: 1 1960 / 64 years Fence Post Driver: Yana MURPHY Gender Assigned at F Additional Staff: : Height: 157.48 cm Admit Date: 01/08/2025 Weight: 67.59 kg Admission Status: Inpatient- Routine BSA / BMI: 1.69 m2 / 27.25 Department Location: [facility]/m2 Blood Pressure: 101 /55 mmHg Study Type: TRANSTHORACIC ECHO (TTE) COMPLETE Diagnosis/ICD: Ventricular tachycardia, other-I47.29 Indication: Multiple ICD firings CPT Codes: Echo Complete w Full Doppler-[id number] Patient History: Pacer/Defib: AICD Pertinent History: HTN, [...] LA Area A2C: 19.2 cm2 LA Major [place] A4C: 6.3 cm LA Major [place] A2C: 5.7 cm LA Volume Index: 33.4 ml/m2 RIGHT ATRIUM: Normal Ranges: RA Vol A4C: 32.8 ml (8.3-19.5ml) RA Vol Index A4C: 19.4 ml/m2 RA Area A4C: 13.1 cm2 RA Major [place] A4C: 4.4 cm LV SYSTOLIC FUNCTION: Normal [...] 1.0 m/s (0.6-0.9m/s) PV Max P.9 mmHg [id number] Augustus Issa DO Electronically signed on 01/10/2025 at 8:51:17 AM Wall Scoring Final us Srinivasa Michelle MD CV ECHO PROCEDURES Final Re sult Performing Organization Address City/[facility]/ZIP Co de Phone Number [facility] * TSH with reflex to Free T4 if abnormal (01/08/2025 7:21 PM EDT) Thyroid Stimulating Hormone 2.12 0.44 - 3.98 mIU/L LAB IMMUNOASSAY METHOD 01/08/2025 8:19 PM EDT [facility] Blood Venous blood specimen / Unknown Venipuncture / Unknown 01/08/2025 7:21 PM EDT 01/08/2025 7:26 PM EDT Narrative [facility] - 01/08/2025 8:19 PM EDT TSH testing is performed using different testing methodology at [facility] than at other [facility] hospitals. Direct result comparisons should only be made within the same method. us Julia Sol PA-C LAB BLOOD ORDERABLES Final Res ult [facility] [address] [place] [address] * Hemoglobin A1c (01/08/2025 7:21 PM EDT) Hemoglobin A1C 5.5 See comment % 025 11:45 PM EDT [facility] Estimated Average Glucose 111 Not Established mg/dL 01/08/2025 11:45 PM EDT [facility] Blood Venous blood specimen / Unknown Venipuncture / Unknown 01/08/2025 7:21 PM EDT 01/08/2025 7:26 PM EDT Narrative [facility] - 01/08/2025 11:45 PM EDT Diagnosis of Diabetes-Adults Non-Diabetic: < or = 5.6% Increased risk for developing diabetes: 5.7-6.4% Diagnostic of diabetes: > or = 6.5% us Julia Sol PA-C LAB BLOOD ORDERABLES Final Res ult [facility] [address] [address] from Last 3 Months or Most Recently Relevant to Health Maintenance Insurance MEDICAID [facility] DUAL ADVANTAGE MEDICAID [employer] DUAL ADVANTAGE Advance Directives For more information, please contact: [phone] (Available ) * Full Code (Latest Code Status on File) Date Activated Date Inactivated Comments 11/26/2023 6:41 AM Question Answer Comments Plan of Care: Code Status Discussion Not Compl eted Decision Maker: Provider Rationale: Patient condition does not warra nt discussion Care Teams Receipt And Report Clerk Relationship Specialty Start Date End Date Conchita Aden MD [address] [place] [id number] PCP - General Family Medicine 11/11/24 June Preston MD [address] [facility] Medical Office [address]ld[address], [address] [place] [address] Polystyrene Bead Molder Electrophysiology 09/13/24 Earlene Eubanks, RN Lab CourierCage Loader 04/17/25
--- OUTSIDE RECORDS SUMMARY | 2025-06-07 13:58 | XMS_ITS | Encounter Summary ---
Author Organization [facility] Address [address] [place] [address] Care Team Providers Care Establishment Guide Name Role Phone Conchita Aden MD Primary Care Provider [phone] Encounter Details Date Type Department Care Team (Late Contact Info) Description 10/22/2024 Abstract [facility] [address] [place] [address] David Ewing DO [address] [facility] [address] Sven Obando, [facility] Social History Tobacco Use Types Packs/Day [...] on filedocumented in this encounter Care Teams Establishment Guide Relationship Specialty Start Date End Date Conchita Aden MD PCP - General Family Medicine 11/07/24 documented as of this encounter
--- OUTSIDE RECORDS SUMMARY | 2025-06-07 13:58 | XMS_ITS | Encounter Summary ---
Author Organization [facility] Address [address] [place] [address] Care Team Providers Care Hosted Services Analyst Name Role Phone Conchita Aden MD Primary Care Provider [phone] Encounter Details Date Type Department Care Team (Late st Contact Info) Description 06/29/2023 External Result Encounter [facility] External Department Unsolicited Steve Combs, DO [address] [facility] [address] [place] [address] Social History Tobacco Use Types Packs/Day Years [...] Gerber Moreno M.D.06/29/2023 3:14 PM Dictation Location: [place] [address] Transcribed By: [facility] 06/29/23 1514 Dictated By: Gerber Moreno II, MD 06/29/23 1500 Signed By: <Electronically signed by Gerber Moreno II, MD in OV> 06/29/23 1514 Narrative 06/29/2023 3:36 PM EDT [facility] [place] [address] [place] [address] MRI Report Signed Patient: Latanya Martinez MR#: [id number] : 1960 Acct:[id number] Age/Sex: 62 / F ADM Date: 06/29/23 Loc: Room: Type: [facility] Attending Dr: Steve Combs DO Copies to: DO Darcie Draper MD, RES Ordering Provider: Steve Combs DO; Darcie Garcia MD, RES Date of Service: 06/29/23 MR/MR lumbar spine wo/w con: Other intervertebral disc degeneration, lumbar region;Spondy ([id number]) XR/XR pre/post mri xray: M51.36,M43.16 MR lumbar [...] Procedure Note Radiology, Radiologist, MD - 06/29/2023 [facility] [place] [address] [place] [address] MRI Report Signed Patient: Latanya Martinez AMR#: [id number] : 1960cct:[id number] Age/Sex: 62 / FADM Date: 06/29/23 Loc: Room:Type: [facility] Attending Dr: Steve Combs DO Copies to: DO Darcie Draper MD, RES Ordering Provider: Steve Combs DO; Darcie Garcia MD, RES Date of Service: 06/29/23 MR/MR lumbar spine wo/w con: Otherintervertebral disc degeneration, lumbar region;Spondy ([id number]) XR/XR pre/post mri xray: M51.36,M43.16 MR lumbar [...] and L4-5. The conus terminates at the L1-Y5crkvmsboatvtnm disc level. No epidural or paraspinous fluid [...] mild mass effect on the exiting left P3oipew roots. This are also present. No significant spinal canal stenosis. At L5-S1: There is a normal disc, central canal, and neural foramen. MR/MR lumbar spine wo/w con IMPRESSION: At L4-L5: There is a focal left foraminal disc extrusion contributing tomoderate to severe left neural foraminal narrowing with mild mass effect on the exiting left X8typel roots. This are also present. No significant [...] Gerber Moreno M.D.06/29/2023 3:14 PM Dictation Location: [place] [address] Transcribed By: [facility] 06/29/23 1514 Dictated By: Gerber Moreno II, MD 06/29/23 1500 Signed By: <Electronically signed by Gerber Moreno II, MD inOV> 06/29/23 1514 Steve Combs DO IMG MRI PROCEDURES Final Result documented in this encounter Visit Diagnoses Not on filedocumented in this encounter Care Teams Hosted Services Analyst Relationship Specialty Start Date End Date Conchita Aden MD PCP - General Family Medicine 11/07/24 documented as of this encounter
--- OUTSIDE RECORDS SUMMARY | 2025-06-07 13:58 | XMS_ITS | Encounter Summary ---
Author Organization [facility] Address [address] [place] [address] Phone Care Team Providers Care Deckhand Tuna Boat Name Role Phone Tremaine West DO Primary Care Provider Ania Brothers AED TRAINER-RADIO DIVISION OFFICER Unavailable Unavailable June Preston MD Unavailable Sol Keita VAT PACKER Unavailable [phone] June Preston MD Unavailable Oscar Rodriguez MD Unavailable [phone] Generic Provider, No Assigned Pcp Primary Car e Provider Unavailable Diane Min RN Unavailable Unavailable June Preston MD Unavailable Conchita Aden MD Primary Care Provider [phone] Diane Min RN Unavailable Unavailable Earlene Eubanks RN Unavailable Encounter Details Date Type Department Care Team (Late st Contact Info) Description 11/20/2020 Orders Only [facility] [address] [place] [address] Conversion, Onbase Social History Tobacco Use Types [...] Description 07/14/2025 1:00 PM EDT [facility] [address] [facility] [address] [place] [address] Oscar Rodriguez MD [address], [address] [place], [place] [address] 09/26/2025 12:20 PM EST Appointment [facility] [address] [place] [address] 09/26/2025 1:00 PM EST Office Visit [facility] [address] [facility] [address] [place] [address] June Preston MD [address] [facility] Medical Office [facility], [address] [place], [place] [id number] Scheduled Orders Name Type Priority Associated Diagnoses [...] documented as of this encounter Care Teams Deckhand Tuna Boat Relationship Specialty Start Date End Date Tremaine West DO [address] [facility] Tremaine West DO [facility] [address] [place] [address] PCP - General 01/22/22 11/05/23 Generic Provider, [place] [address] PCP - General Retail Stock Clerk 08/08/24 11/10/24 Conchita Aden MD [facility] [facility] [place] [address] PCP - General Family Medicine 11/11/24 Ania Brothers APRN-RADIO DIVISION OFFICER [address] [facility] Tremaine West, DO [address] [place] [address] Nurse Practitioner Cardiology 09/30/23 02/16/24 June Preston MD [address] [facility] Tremaine [facility] [address] [place] [address] Customer Service Agent Cardiology 09/30/23 02/16/24 Sol Keita, VAT PACKER Mine Safety ManagerWebfocus Developer 02/19/24 05/17/24 June Preston MD [address] [facility], [address] [place] [address] Consulting Physician Cardiology 02/19/24 02/29/24 Oscar Rodriguez MD 3 [facility] 2, [address] [place] [address] Consulting Physician Cardiology 02/19/24 02/29/24 Diane Min RN Care Webfocus Developer 09/05/24 12/06/24 June Preston MD [address] [facility], [address] [place] [address] Customer Service Agent Electrophysiology 09/13/24 Diane Min, manager ncWebfocus Developer 01/16/25 01/31/25 Earlene Eubanks RN Mine Safety ManagerWebfocus Developer 04/17/25 documented as of this encounter
--- OUTSIDE RECORDS SUMMARY | 2025-06-07 13:58 | XMS_ITS | Encounter Summary ---
Author Organization [facility] Address [address] [place] [address] Phone Care Team Providers Care Drop Hammer Operator Helper Name Role Phone Tremaine West DO Primary Care Provider Ania Brothers OFFAL WORKER-LUGGER Unavailable Unavailable June Preston MD Unavailable Sol Keita SERVICE CASHIER Unavailable June Preston MD Unavailable Oscar Rodriguez MD Unavailable [phone] Generic Provider, No Assigned Pcp Primary Car e Provider Unavailable Diane Min RN Unavailable Unavailable June Preston MD Unavailable Conchita Aden MD Primary Care Provider [phone] Diane Min RN Unavailable Unavailable Earlene Eubanks RN Unavailable Encounter Details Date Type Department Care Team (Late st Contact Info) Description 08/15/2019 Orders Only [facility] [address] [place] [address] Conversion, Onbase Social History Tobacco Use Types [...] EDT Office Visit [facility] [address] [facility] [address] [place] [address] Oscar Rodriguez MD [address], [address] [place], [place] [address] 09/26/2025 12:20 PM EST Appointment [facility] [address] [place] [facility] [place] [address] 09/26/2025 1:00 PM EST Office Visit [facility] [address] [facility] [address] [place] [address] June Preston MD [address] [facility] Medical Office [address], [address] [place], [place] [phone] Scheduled Orders Name Type Priority Associated Diagnoses [...] documented as of this encounter Care Teams Drop Hammer Operator Helper Relationship Specialty Start Date End Date Tremaine West DO [address] [facility] Tremaine West DO [facility] [address] [place] [address] PCP - General 01/22/22 11/05/23 Generic Provider, [place] [address] PCP - General Seafood And Service Meat Manager 08/08/24 11/10/24 Conchita Aden MD [address] [facility] [place] [address] PCP - General Family Medicine 11/11/24 Ania Brothers, OFFAL WORKER-LUGGER [address] [facility] Tremaine West, DO [address] [place] [address] Nurse Practitioner Cardiology 09/30/23 02/16/24 June Preston MD [address] [facility] Tremaine West, DO [address] [place] [address] Picker And Sorter Load And Unload Cardiology 09/30/23 02/16/24 Sol Keita, SERVICE CASHIER Cyanide Case HardenerGrain Spouter 02/19/24 05/17/24 June Preston MD [address] [facility] [address], [address] [place] [address] Consulting Physician Cardiology 02/19/24 02/29/24 Oscar Rodriguez MD [facility] [facility], [address] [place] [address] Consulting Physician Cardiology 02/19/24 02/29/24 Diane Min, small arms repairerGrain Spouter 09/05/24 12/06/24 June Preston MD [address] [facility] [address] [place] [address] Picker And Sorter Load And Unload Electrophysiology 09/13/24 Diane Min, small arms repairerGrain Spouter 01/16/25 01/31/25 Earlene Eubanks, PAULA Cyanide Case HardenerGrain Spouter 04/17/25 documented as of this encounter
--- OUTSIDE RECORDS SUMMARY | 2025-06-07 13:58 | XMS_ITS ---
Author Organization [facility] Address [address] [place] [address] Phone Care Team Providers Care Quarter Lining Smoother Name Role Phone June Preston MD Unavailable Conchita Aden MD Primary Care Provider [phone] Earlene Eubanks RN Unavailable Transitional Care Management Status:Enrolled (Active) Start date:04/17/2025 Enrollment date:04/18/2025 Current support & services provided:Medium Complexity Transitional Care Management Related social drivers of health:Social Connections, Tobacco Use, Physical Activity Case Team Name Relationship Phone Earlene Eubanks RN(Responsible Staff) Ore Buyer [phone] Continued Care and Services Coordination
--- OUTSIDE RECORDS SUMMARY | 2025-06-07 13:58 | XMS_ITS | Encounter Summary ---
Author Organization [facility] Address [address] [place] [address] Phone Care Team Providers Care Health Type Technician Name Role Phone Tremaine West DO Primary Care Provider Ania Brothers ANIMAL ASSISTED THERAPIST-STAKES PLAYER Unavailable Unavailable June Preston MD Unavailable Sol Keita HANDICAPPER HARNESS RACING Unavailable June Preston MD Unavailable Oscar Rodriguez MD Unavailable [phone] Generic Provider, No Assigned Pcp Primary Car e Provider Unavailable Diane Min RN Unavailable Unavailable June Preston MD Unavailable Conchita Aden MD Primary Care Provider [phone] Diane Min RN Unavailable Unavailable Earlene Eubanks RN Unavailable Encounter Details Date Type Department Care Team (Late st Contact Info) Description 03/25/2023 Orders Only [facility] [address] [place] [address] Conversion, Onbase Social History Tobacco Use Types [...] Description 07/14/2025 1:00 PM EDT Office Visit [facility] [address] [facility] [address] [place] [address] Oscar Rodriguez MD [address], [address] [place] [address] 09/26/2025 12:20 PM EST Appointment [facility] [address] [place] [address] 09/26/2025 1:00 PM EST Office Visit [facility] [address] [facility] [address] [place] [address] June Preston MD [address] [facility] Medical Office Bldg, [address] [place], [place] [address] Scheduled Orders Name Type Priority Associated Diagnoses [...] documented as of this encounter Care Teams Health Type Technician Relationship Specialty Start Date End Date Tremaine West DO 1610 [facility] Tremaine West DO [facility] [address] [place] [address] PCP - General 01/22/22 11/05/23 Generic Provider, No [place] [address] PCP - General Carton Making Machinist 08/08/24 11/10/24 Conchita Aden MD [address] [place] [address] [place] [address] PCP - General Family Medicine 11/11/24 Ania Brothers, ANIMAL ASSISTED THERAPIST-STAKES PLAYER 1610 [facility], DO [address] [place] [address] Nurse Practitioner Cardiology 09/30/23 02/16/24 June Preston MD [address] [facility] Tremaine [facility], [address] [place] [address] Parimutuel Clerk Cardiology 09/30/23 02/16/24 Sol Keita, [facility] Radius GrinderPipe Line Walker 02/19/24 05/17/24 June Preston MD [address] [facility], [address] [place] [address] Consulting Physician Cardiology 02/19/24 02/29/24 Oscar Rodriguez MD 703 [facility] 2, [address] [place] [address] Consulting Physician Cardiology 02/19/24 02/29/24 Diane Min RN Care Pipe Line Walker 09/05/24 12/06/24 June Preston MD [address] [facility], [address] [place] [address] Parimutuel Clerk Electrophysiology 09/13/24 Diane Min, telephone plant power operatorPipe Line Walker 01/16/25 01/31/25 Earlene Eubanks RN Radius GrinderPipe Line Walker 04/17/25 documented as of this encounter
--- OUTSIDE RECORDS SUMMARY | 2025-06-07 13:58 | XMS_ITS | Encounter Summary ---
Author Organization [facility] Address [address] [facility] [facility] [place] [address] Care Team Providers Care Marine Steam Fitter Name Role Phone Conchita Aden MD Primary Care Provider Encounter Details Date Type Department Care Team (Late Contact Info) Description 10/22/2024 Abstract [facility] [address] [place] [address] David Ewing DO [address] [facility] [address] Sven Obando, [facility]11 Social History Tobacco Use Types [...] filedocumented in this encounter Care Teams Marine Steam Fitter Relationship Specialty Start Date End Date Conchita Aden MD PCP - General Family Medicine 11/07/24 documented as of this encounter
[2025-06-07 14:21] LABS: Hematocrit 46.2 % (36.0-48.0); Hemoglobin 15.4 g/dL (12.0-16.0); Immature Granulocytes Abs Auto 0.01 10^3/uL (0.00-0.03); Immature Granulocytes Pct Auto 0.1 % (0.0-0.5); Lymphocytes Absolute Auto 2.6 10^3/uL (1.2-3.8); Mean Corpuscular HGB Conc 33.3 g/dL (29.9-35.2); Mean Corpuscular Hemoglobin 27.5 pg (26.7-34.0); Mean Corpuscular Volume 82.6 fL (81.0-99.0); Platelet Count 276 10^3/uL (150-450); White Blood Count 8.1 10^3/uL (4.0-11.0)
[2025-06-07 14:55] LABS: Red Blood Count 5.59 10^6/uL (4.20-5.40)
[2025-06-07 15:26] LABS: Anion Gap 13.9; Blood Urea Nitrogen 11.0 mg/dL (7.0-18.0); Calcium 9.5 mg/dL (8.5-10.1); Carbon Dioxide 23.3 mmol/L (21.0-32.0); Chloride 106 mmol/L (98-107); Estimated GFR (African America >60 (>=60 mL/min/1.73m^2); Estimated GFR (Non-African Ame >60 (>=60 mL/min/1.73m^2); Glucose 105 mg/dL (74-106); Potassium 4.2 mmol/L (3.5-5.1); Sodium 139 mmol/L (136-145)
[2025-06-07 15:31] LABS: Iron 104.0 ug/dL (50.0-170.0); Percent Iron Saturation 34.7 %; Total Iron Binding Capacity 300.0 ug/dL (250.0-450.0)
[2025-06-07 15:57] LABS: Ferritin 255.0 ng/mL (8.0-252.0)
[2025-06-08 04:07] LABS: Vitamin B12 497 pg/mL (232-1245)
== END 2025-06-07 13:54 | disposition home or self-care (01) ==
LOC: LAB 13:54
PROVIDERS: PCP Nurse Practitioner Family; Visit Provider Internal Medicine Hematology & Oncology
DX: D50.9 Iron deficiency anemia, unspecified (principal); K90.9 Intestinal malabsorption, unspecified
CPT/HCPCS: 36415; 80048; 82306; 82607; 82728; 83540; 83550; 85025

== ENCOUNTER 2025-06-20 06:47 | Outpatient (RCR) | payer MEDICARE, MEDICAID, SELFPAY | END 2025-07-02 23:59 | disposition home or self-care (01) | LOC: HEMC 06:47 | PROVIDERS: PCP Nurse Practitioner Family; Visit Provider Internal Medicine Hematology & Oncology | DX: D50.9 Iron deficiency anemia, unspecified (principal); K90.9 Intestinal malabsorption, unspecified; F17.210 Nicotine dependence, cigarettes, uncomplicated; D64.9 Anemia, unspecified; R55 Syncope and collapse; I48.91 Unspecified atrial fibrillation; Z79.01 Long term (current) use of anticoagulants | CPT/HCPCS: G0463 ==

== ENCOUNTER 2025-08-24 13:48 | Outpatient (OUT) | payer MEDICARE, MEDICAID, SELFPAY ==
--- OUTSIDE RECORDS SUMMARY | 2025-08-10 08:47 | XMS_ITS | Continuity of Care Document ---
Author Organization [facility] Address [address] [place] [address] Phone Care Team Providers Care Studio Technician Video Operator Name Role Phone Jeri Fletcher APRN Primary Care Provider Jeri Fletcher APRN Attending Provider Parth Hernandez DO Attending Provider Care Teams Patient Care Team Team Status: Active Member Role Status Dates Jeri Fletcher APRN HOGSHEAD INSPECTOR-C Primary Care Provider Active Visit Care Team Team Status: Inactive Member Role Status Dates Jeri Fletcher APRN HOGSHEAD INSPECTOR-C Primary Care Provider Active Start: June 07, 2025 End: June 07, 2025Jeri Fletcher APRN HOGSHEAD INSPECTOR-CAttending ProviderActive Start: June 07, 2025 End: June 07, 2025 Visit Care Team Team Status: Inactive Member Role Status Dates Jeri Fletcher APRN HOGSHEAD INSPECTOR-C Primary Care Provider Active Start: July 112024 End: July 11mag Hernandez DOAttkelsey ProviderActiveStart: July 11, 2025 End: July 11, 2025 Visit Care Team Team Status: Inactive Member Role Status Dates Jeri Fletcher APRN HOGSHEAD INSPECTOR-C Primary Care Provider Active Start: July 052024 End: August 01, 2025Jeri Fletcher APRN HOGSHEAD INSPECTOR-CAttending ProviderActive Start: August 01, 2025 End: August 01, 2025 Patient Care Team Team Status: Inactive Member Role Status Dates Jeri Fletcher APRN HOGSHEAD INSPECTOR-C Primary Care Provider Active Start: August 10, 2025 End: August 10Marilia Brown ProviderActiveStart: August 10, 2025 End: August 10, 2025 Chief Complaint and Reason for Visit Chief Complaint Admit Date Low Dopamine June 07, 2025 1:0 8pm EMG BLE per Jeri Fletcher 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-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 July 11, 2025 10:23am Cough-HIGH RISK August 01, 2025 1:02pm Reason for Visit Admit Date Paresthesia of bilateral legs June 1:08pm Restless leg syndrome June 07, 2025 1 :08pm Paresthesia of bilateral legs July 11, 2025 10:23am Afib August 01, 2025 1:02pm Bipolar 1 disorder, depressed August 01, 2025 1:02pm BMI 27.0-27.9,adult August 01, 2025 1:02pm Radha vaginitis August 01, 2025 1:02pm Cardiac defibrillator in place August 01, 2025 1:02pm Chronic congestive heart failure Septemb er 2024 1:02pm Diabetes August 01, 2025 1:02pm GERD (gastroesophageal reflux disease) S eptember 2024 1:02pm HLD (hyperlipidemia) August 01 1:02pm HTN (hypertension), benign July 1:02pm Ischemic cardiomyopathy August 01, 2025 1:02pm Post-menopausal August 01, 2025 1:02pm Screening for osteoporosis July 1:02pm Wellness examination August 01 1:02pm Bronchitis August 01, 2025 1:02pm COPD (chronic obstructive pulmonary dise ase) August 01, 2025 1:02pm On deep vein thrombosis (DVT) prophylaxi s August 01, 2025 1:02pm History of pulmonary embolus (PE) Septem tomas 2024 1:02pm Stented coronary artery August 01, 2025 1:02pm Sustained monomorphic ventricular tachyc ardia August 01, 2025 1:02pm Tobacco abuse August 01, 2025 1:02pm Pacemaker October 9th, 2025 12 :15pm Restless leg syndrome August 10, 2025 12:15pm Reason for Referral Referring Provider Name Referring Provider Address Referring Provider Phone Referral Date Requested Appointment Date Referral Reason Jeri [facility] [address] [facility] [address] Phone: August 2024R20.2 - Paresthesia of skin,G25.81 - Restless legs syndromeAugust 2024R20.2 - Paresthesia of skin,G25.81 - Restless legs syndrome Allergies, Adverse Reactions, Alerts Allergen Type Severity Reaction Last Updated Verified Status gabapentin Allergy Unknown Unknown Reaction August 10, 2025 12:19pm Yes Active pregabalin Allergy Unknown Unknown Reaction August 10, 2025 12:19pm Yes Active Social History Smoking Status Status Start Date End Date Date of Observa tion Smokes tobacco daily (finding) [birth year] 21, 1970 April 11, 2025 10:33am Observation Status Observation Response Date of Response Legal Sex Female (finding) Sex Assigned At [facility] 1960Gender IdentityCisgender/Not transgender (finding)April 11isgender/Not transgender (finding)April 11isgender/Not transgender (finding)April 11isgender/Not transgender (finding)April 11isgender/Not transgender (finding)April 11, 2025Sexual OrientationUnknownUnknownUnknownUnknownUnknown Family History Relationship Condition Age at Onset Recorded Date/T zulema father Myocardial infarction Unknown motherCerebrovascular accident (CVA)UnknownsisterCerebrovascular accident (CVA) UnknownbrotherMotor vehicle accidentUnknownbrotherHeart diseaseUnknownHistory of strokeUnknownfatherMyocardial infarctionUnknownDeceasedUnknownHeart disease UnknownmotherDeceasedUnknownHistory of strokeUnknownsonObesityUnknownsister History of strokeUnknownFamily history of mental disorderUnknown Problems Active Problems Medical Problem Onset Date Status Comments Bipolar 1 disorder, depressed Unknown Active Nicotine dependenceUnknownActiveScreening for osteoporosisUnknownActiveSpinal stenosis of lumbar region with radiculopathyUnknownActiveCandida vaginitis UnknownActiveDiabetesUnknownActiveOvarian cystUnknownActiveHTN (hypertension), benignUnknownActiveCAD (coronary artery disease)UnknownActiveChronic congestive heart failureUnknownActiveAfibUnknownActiveAtrial flutterUnknownActiveChronic anticoagulationUnknownActiveDepressionUnknownActiveWellness examinationUnknown ActiveHLD (hyperlipidemia)UnknownActiveIschemic cardiomyopathyUnknownActive Post-menopausalUnknownActiveUrinary urgencyUnknownActiveArthritis of left hip UnknownActiveRestless leg syndromeUnknownActiveParesthesia of bilateral legs UnknownActiveIron deficiency anemiaUnknownActiveBMI 27.0-27.9,adultUnknownActive S/P insertion of iliac artery stentUnknownActive03/29/25. LEFT common iliac artery balloon angioplasty and stent. Lifestream 8 mm x 37 mm stent.Paroxysmal atrial fibrillationUnknownActiveCOPD (chronic obstructive pulmonary disease) UnknownActivePacemakerUnknownActiveCardiac defibrillator in placeUnknownActive GERD (gastroesophageal reflux disease)UnknownActiveHospital discharge follow-up UnknownActiveInactive/Resolved Problems Medical Problem Onset Date Status Comments Myocardial infarction (lateral wall) Unknown Reso lved AVM (arteriovenous malformation) of colon with hemorrhageUnknownResolvedUTI (urinary tract infection)UnknownResolvedUTI (urinary tract infection)Unknown ResolvedOn deep vein thrombosis (DVT) prophylaxisUnknownResolvedSustained monomorphic ventricular tachycardiaUnknownResolvedOcclusion of common iliac arteryUnknownResolvedDislocation of proximal interphalangeal joint of right middle fingerUnknownResolvedCarpal tunnel syndromeUnknownResolvedWrist fracture, rightUnknownResolvedHx of blood clotsUnknownResolvedElevated troponin I level UnknownResolvedStented coronary kaprncUacmuoyRvexshnyn3Weuffd strainUnknown ResolvedWound infectionUnknownResolvedDizzinessUnknownResolvedBlack stools UnknownResolvedAVM (arteriovenous malformation) of stomach, acquired with hemorrhageUnknownResolvedFracture of left wristUnknownResolvedAnemiaUnknown ResolvedAVM (arteriovenous malformation)UnknownResolvedGeneralized weakness UnknownResolvedBurnUnknownResolvedCellulitisUnknownResolvedCellulitisUnknown ResolvedCoughUnknownResolvedDiarrheaUnknownResolvedFracture of toe of left foot UnknownResolvedHeadacheUnknownResolvedHeadacheUnknownResolvedLeukocytosisUnknown ResolvedLeukocytosisUnknownResolvedCommunity acquired pneumoniaUnknownResolved Atypical chest painUnknownResolvedNon-ST elevation [place] (NSTEMI)UnknownResolved Near syncopeUnknownResolvedEncounter for removal of suturesUnknownResolved PyelonephritisUnknownResolvedArthralgia of right hipUnknownResolvedDark stools UnknownResolvedVertigoUnknownResolvedElevated INRUnknownResolvedChest pain, rule out acute myocardial infarctionUnknownResolvedHistory of GI bleedUnknownResolved Acute UTI (urinary tract infection)UnknownResolvedCOPD (chronic obstructive pulmonary disease)UnknownResolvedLeft hip painUnknownResolvedAcute blood loss anemiaUnknownResolvedMelenaUnknownResolvedNeck painUnknownResolvedLeft lower lobe pneumoniaUnknownResolvedHistory of pulmonary embolus (PE)UnknownResolved BronchitisUnknownResolvedCervical muscle painUnknownResolvedChest painUnknown ResolvedHemorrhoidsUnknownResolvedPneumoniaUnknownResolvedConstipationUnknown ResolvedFallUnknownResolvedObesityUnknownResolvedPhlebitis after infusionUnknown ResolvedLaceration of right forearmUnknownResolvedLaceration of left thumb UnknownResolvedGeneralized abdominal discomfortUnknownResolved Medications Medication Status Dose Units Route Directions Qty Days St art Date Stop Date End Date Instructions Adherence Sertraline 25 mg tablet Discontinued 25 MG PO Cadence ly February 20, 2025 7:44amApril 2024 10:23amRopinirole 2 mg tablet Clmxbhsbwzre8YGHSQkrci at gdhwfjs1222Fiucu 2024 7:44amMay 2024 11:25amadminister 1-3 hours before bedtimeQuetiapine (Seroquel) 200 mg tablet Iffhep960UCBTKcfux at roiivai0957Brkje 2024 10:22amComplies with drug therapySertraline 25 mg kgyxhwOplogvaqjpdb41POVOQnlih16Psmcq 2024 10:23am March 21, 2025 2:35pmSertraline 25 mg tabletActive0.ROUTE.WQBWECD55Dlb 2024 2:35pmTAKE 1 TABLET BY MOUTH EVERY DAYComplies with drug therapy Pantoprazole (Protonix) 40 mg tablet,delayed release (DR/EC)Jqfvtzojvphm21WIDI Lewif7387Vosd 2024 12:00amAugust 2024 2:59pmNicotine 21 mg/24 hr patch 24 oprnRcvwkelmxzbv7OGJWZQWCQABZRBMJghsr2902Jftq 2024 12:00amAugust 2024 2:39pmPantoprazole (Protonix) 40 mg tablet,delayed release (DR/EC) Xbvuqtvgwosp56EBJVGhbts3693Dlkdue 2024 2:58pmAugust 2024 3:36pm Meclizine 25 mg hsnsaoXdpcsfxyrysn30SNJGLstvj times daily as needed for stiytakgq5003Nndbem 2024 12:00amSeptember 2024 7:26amVarenicline Tartrate (Chantix Starting Month Box) 0.5 mg (11)- 1 mg (42) tablets,dose pack Hnuqpcqjepiz0RFpvw package ytmyrzipbg22Mkkxea 2024 12:00amSeptember 2024 1:09pmPO PER PKG DIRPantoprazole (Protonix) 40 mg tablet,delayed release (DR/EC)Qgpyww88WPBZYjicp wzvjc85799Utqfps 2024 3:36pmComplies with drug therapyRopinirole 4 mg tablet extended release 24 ixXjozyd8GGGVQfooe at bedtime 90Sept2024 10:11amComplies with drug therapyMeclizine 25 mg tablet Egozkvmbfbug75PZXLErdpt times daily as needed for zmabkivdg9562Jbougjkec 2024 7:26amOctober 2024 7:24amOxybutynin Chloride 10 mg tablet extended release 43erGagjqw97NCJRMfkxv88Bubrzrz 2024 12:00amComplies with drug therapyMeclizine 25 mg ykxzbnZxyvtl95LOGNGrwrw times daily as needed for fqainnxoq5267Msfycch 2024 7:24amComplies with drug therapyHydrocodone- Acetaminophen 5-325 mg tabletDiscontinued5 - 325MGPOEVERY 4-6 HOURS as needed for PainMarch 2017 1:00amMay 2017 11:14amtake 1 tablet by mouth every 6 hours if neededAripiprazole 2 mg rpvvhjEeprgbbvjccw0QQRNBtkmxSnqcs 2017 12:00amSeptember 2017 11:29pmHydrocodone-Acetaminophen ([place]) 5-325 mg tabletDiscontinued1 - 2TABPOEVERY 4-6 HOURS as needed for Qqsx34Lmmfu 2017July 26, 2018 11:29pmDoxycycline Hyclate 100 mg etdqmjLezmjgohjzjp958OHDL Twice spsoi771Fvksr 2017 12:00amMay 2017 11:14amPregabalin 50 mg zgecyauZrbsfeitjcqk1HAZQNYcfxj dailyDeceer 2017 1:00amMarch 2022 3:14pmQuetiapine (Seroquel) 50 mg xqiwonUzrtigpafhyu986LSVTVsgqd at bedtime October 27, 2018 1:00amAugust 2023 6:43pmOxycodone-Acetaminophen 5-325 mg qttihvZgcrpkgwezkv4WPKDEDEHEM 4-6 HOURS as needed for nrbp690Yvsngvn 2018January 2018 1:00amJanuary 2018 1:01amMelatonin 5 mg Tablet Dfbrmrfakjvg4STRFLzroalvGcvpgo 2019 12:00amMay 2022 6:05amAspirin 81 mg Tablet,Delayed Release (Dr/Ec)Glygwptdjkvc54TOOXYtdsw5320Hgwqjzegl 2019 12:00amMarch 2022 3:15pmNitroglycerin 0.4 mg Tablet, SublingualActive0.4MG LPBJGGTSGVH1H as needed for Chest Lwuq9942Aicdmpwni 2019 12:00amComplies with drug therapyLisinopril 10 mg zomtedYnmhphkocpjk1FSSKWakgk0028Quoejenpu 2019 2:05pmMarch 2022 3:15pmCarvedilol (Coreg) 25 mg TabletDiscontinued6.25 MGPOTwice rleip3679Ylxcpmcrk 2019 2:16pmAugust 2023 6:41pmClindamycin Hcl 150 mg lutuvktMvuljxxjtjxh201LVTKLtioh times ljdbv3064Oqae 2021 12:00amMarch 2022 3:10pmHydrocodone-Acetaminophen 5-325 mg tablet Jthpenhbywrh8HHKZSX2Q as needed for xvwy694Jwfymftt 2021March 2022 3:11pmAspirin 81 mg tablet,delayed release (DR/EC)Cfedbe56UCJWRwqgg morningMarch 2022 3:15pmComplies with drug therapyLisinopril 10 mg joidmgWiosvpurtihw7ZO POEvery morningMarch 2022 3:15pmJanuary 2024 2:06pmSpironolactone 25 mg YfunihRwodtf48UXKVKmxpc at bedtimeMarch 2022 1:00amComplies with drug therapyFerrous Sulfate (Ferosul) 325 mg (65 mg iron) wlkhxbXynwjcehrbwo992HBPD Every morningMarch 2022 1:00amA2023 6:42pmCanagliflozin (Invokana) 300 mg MnascxNlyyhtkfdrwr397IHVINdpgc morningMarch 2022 1:00am 2024 2:06pmPregabalin 25 mg nmfcorgIjsxgzbrfezd01GOFIJfzmp times dailyMarch 2022 1:00amAugu2023 6:42pmEscitalopram Oxalate (Lexapro) 5 mg TabletDiscontinuedMGPODailyMarch 2022 12:00amMay 2022 6:02am Hydrocodone-Acetaminophen 5-325 mg tabletDiscontinued1 - 2TABPOEVERY 4-6 HOURS as needed for atrx334Amksm 2022May 2022 6:02amDoxycycline Hyclate 100 mg sjbwxjFklkngxhxaqb751KXMSVzkuh cejuq388Iujnq 2022 12:00amMay 2022 6:01amPrednisone 20 mg oyccjlQacnepbtkvgj97GFLCVilmv hsjgv424Oes 2022 12:00amMay 2022 6:05amFluticasone Propionate (Flonase Allergy Relief) 50 mcg/actuation spray,qrwluyrpskRxisxhscjetg5KNDPAJNYFFLNPAAR88J9.9May 2022 12:00amMay 2022 6:02amadminister into each nostrilAlbuterol Sulfate 2.5 mg /3 mL (0.083 %) Solution For NebulizationDiscontinued2.5MGINHALATIONEVERY 4-6 HOURS as needed for Shortness Of Breath Or Tjgqjkfq44Thf 2022 12:00amMay 2022 6:11amFamotidine 20 mg seetqxWmqoavosufav34NRIJUgmazne as needed for IndigestionSeptember 2022 12:00amMarch 2024 1:05pmAlbuterol Sulfate 90 mcg/actuation HFA aerosol hwsinjmJjjrzc9HOGCQAEFEXFKGO7I as needed for Shortness Of BreathSeptember 2022 12:00amComplies with drug therapy Omeprazole 40 mg capsule,delayed release(DR/EC)Gpocfopukjui65PMKQBcszo daily July 21, 2023 12:00amMay 2024 12:40pmDoxycycline Hyclate 100 mg swursqzEdhtyzatadly933RZTQVkqyz lokru9775Mwauvkgq 2023 1:00amAugust 2023 6:42pmAzithromycin (Zithromax) 250 mg opazbeKrwdjxperhlf404SRQILtrla7Blheva 2023 12:00amJanuary 2024 2:12pmone daily x 4 days, first dose given in ERCyclobenzaprine 10 mg lcoshiGprnuzxfjzxd75LDNXDkkqk times daily as needed for Muscle Ixyzz46Jnhoxij 2023 12:00amJanuary 2024 2:06pmHydrocodone- Acetaminophen 5-325 mg slvwdrFlhlzpqugyvh6AHXLUCHBQV 4-6 HOURS as needed for Cmrv57Azboikc 2023January 2024 2:12pmCyclobenzaprine 10 mg tablet Mebnahhfhadw16MOZVJgkdr daily as needed for Muscle SpasmFebruary 2017 1:00amSeptember 2017 11:29pmMetformin 500 mg exasewDpairwtgtavq9320OGRT Twice dailyFebruary 2017 1:00amMarch 2022 3:13pmCarvedilol (Coreg) 25 mg TabletDiscontinued6.25MGPOTwice dailyFebruary 2017 1:00amSeptember 2019 2:16pmWarfarin 2.5 mg tabletDiscontinued2.5MGPODaily at bedtimeFebruary 2017 1:00amJanuary 2024 2:07pmCitalopram 20 mg offpsnWhqhslbmruag70ZB PODailyFebruary 2017 1:00amMarch 2022 7:03amLorazepam 0.5 mg tablet Discontinued0.5TABPODaily as needed for AnxietyFebruary 2017 1:00amMay 2022 6:04amMeclizine 25 mg pjxwcvDbjtpjqaykie06ORZJYrzkv daily as needed for VertigoFebruary 2017 1:00amMay 2024 1:51pmLisinopril 10 mg ykxujoYkvanpnvtgdq61ZRRMBiitrLopqvwwl 2017 1:00amSeptember 2019 2:21pmLovastatin 20 mg mdlxenDgywdhsmcoai63MQNSPktpgauFudptfwz 2017 1:00am June 05, 2024 6:42pmRanolazine (Ranexa) 500 mg tablet extended release 12 hr Wzhoedsxbjog953LHPVPcylk dailyFebruary 2017 1:00amJanuary 2024 2:07pm Oxycodone-Acetaminophen (Percocet) 5-325 mg topyvrNomjxmshrsvp8RSJDSSHAQI 4-6 HOURS as needed for nqtk45Anknwiit 2017March 2017 11:48pmPromethazine 25 mg ZarquxFdtsijycnndp02IDJVS0F as needed for Muofbx11FrvMarch 31, 2018 12:00am July 26, 2018 11:29pmWarfarin 2.5 mg buzkcnCkqoatucjili5WZJODw Directed July 26, 2018 12:00amJune 2018 2:41pmPolyethylene Glycol 3350 (Miralax) 17 gram Powder In YpunaySijdhrzwcsep80VSGJXbzjs as needed for Bastspxofefw4Mtbmlnpaj 25th, 2018 12:00amJanuary 2018 6:33pmmix into 4-8 oz. of any hot/cold/room temp. beverage; use immediatelyHydrocodone- Acetaminophen 5-325 mg cbvunmKsmpaccfsvmm2MUKCIT1Y as needed for PainJanuary 2018 1:00amMay 2021 8:06pmLansoprazole (Prevacid) 30 mg Capsule,Delayed Release(Dr/Ec)Cmyizqbxxcof18JLXLDuxfr morningJanuary 2018 1:00amSeptember 2022 3:32pmRanolazine (Ranexa) 500 mg tablet extended release 12 hrDiscontinuedJanuary 2018 1:00amJanuary 2018 6:35pm Enoxaparin 120 mg/0.8 mL hkqzsqcJkqtbmnbewdt141QPZFMJFOGuqjzAiusceq 2018 1:00amMarch 2018 7:18pmPrednisone 20 mg cevkseRinyzgsqwngm61WFWJJdrcm4 January 15, 2019 12:00amJune 2018 2:40pmadminister with food or milk FahpkeyxOgvooyntkivl48BHCRWkkzr daily as needed for Muscle PainJune 2018 12:00amApril 2020 6:48amDoxycycline Hyclate 100 mg hbdxuuTmiqsmliogfu179WW POTwice flpqf553Okcjlhgck 2019 12:00amNovember 2019 5:38pmFerrous Sulfate 325 mg (65 mg iron) uzmurzCngoeonxjbnl843NBVBTaexsJemamsim 2019 1:00amMay 2021 8:06pmNitrofurantoin Macrocrystal 100 mg capsule Dsjypgeinwgs570VRROBacos swvyl447Oiteqcgn 2019 1:00amApril 2020 6:49ammust administer with a meal/foodCyclobenzaprine 10 mg btaclpBfiohaygudun67 MGPOTwice dailyApril 2020 12:00amMarch 2022 3:11pmSolifenacin 5 mg vysrukAujwpduazrrt7NMZWGfbtp at bedtimeApril 2020 12:00amMay 2021 8:07pmHydrocodone-Acetaminophen 5-325 mg wqvsmqGxwbrxlmscxn7FGEBSG9I as needed for ypyj525Zqmhy 2021May 2021 8:06pmLidocaine 5 % adhesive patch,iskrxtbbrXruppxgfkhkn1JCHRYHGZFDVJA56N22Iojgq 2021 12:00amMay 2021 8:06pmleave on most painful area for up to 12 hrsHydrocodone-Acetaminophen 5-325 mg dsygboAkyzljktjacx1TXZKDUcdwb times daily as needed for aoaw953AvcMarch 29, 2022March 2022 3:11pmPantoprazole (Protonix) 40 mg tablet,delayed release (DR/EC)Hzuyqtoubyzk39GMNOToqdv6460Umkt 2021 12:00amMarch 2022 3:14pmSucralfate (Carafate) 1 gram mdegbePyovupmxvtcq7NTJFI7D7253Ulgk 2021 12:00amMarch 2022 3:15pmAmoxicillin-Pot Clavulanate 875-125 mg tablet Exlftwhhysqh5XANEIErpbs veowb305Lxaitkhn 20th, 2022 1:00amMarch 2022 3:09pm Hydrocodone-Acetaminophen 5-325 mg eererlHflymedrptvv0KLAXKAZKED 4-6 HOURS as needed for Gzth62Gssxy 2022March 2022 7:04amLansoprazole 30 mg capsule,delayed release(DR/EC)DiscontinuedMGMarch 25, 2023 12:00amMay 2022 6:11amSolifenacin (Vesicare) 10 mg XeoerqMlpxjmzhypjo21YCJLDxlwaSjs 2022 12:00amA2023 6:43pmLurasidone (Latuda) 20 mg OqhbzcMzospsdduoxm57KPEN DailyMay 2022 12:00amJanuary 2024 2:06pmmust administer with food (at least 350 calories)Quetiapine (Seroquel) 200 mg iltnteFgkenlimczbf410XIEHQyvac at kkedbuu4Zdnzn 2023 12:00amJanuary 2024 2:07pmCephalexin 500 mg xnrlctnTrtvygfzvrid684QBFSBlgbv ampju1852Waiux 2023 12:002023 6:42pmPrednisone 20 mg lxgwkkNdamdfzdutpu25RZPJHcllq25Vfoj 2023 12:002023 6:42pmadminister with food or milkTramadol 50 mg tablet Fqsbhfeghzfb54PRYDYqqex 8 hours as needed for alew79Xhmp 2023 12:00am [place] 2023 6:43pmBaclofen 10 mg tabletDiscontinued5 - 10MGPOThree times daily as needed for muscle spasmy 2024 12:00amOctober 2024 12:19pm Lansoprazole 30 mg capsule,delayed release(DR/EC)Bqzihfyhnxhm34VUPVRigdxRwv 25th, 2025 12:00amJune 2024 1:05pmRosuvastatin 20 mg scljpiOcywud13ELWW DailyMay 2024 12:00amComplies with drug therapyMexiletine 150 mg capsule Tocfzt192RANXFtfrq 8 hoursMay 2024 12:00amComplies with drug therapy Ascorbic Acid (Vitamin C) (Vitamin C) 500 mg RmdckgYnbkec275DGRHKtpyu1768Xhc 2024 12:00amTake with iron pill.UnknownFerrous Sulfate 324 mg (65 mg iron) Tablet,Delayed Release (Dr/Ec)Eowffeclpzml485PGMSXaczt 48 krwaq1067Ofg 2024 12:00amSeptember 2024 1:09pmRopinirole 2 mg znsslhKigdxmnnyvce3JUHH Daily at enhaznn5637Vxf 30th, 2025 11:25amJune 2024 10:26amadminister 1-3 hours before bedtimeRopinirole 2 mg wndknyWauhegtoxihx7AFZINwkpu at gxocvtb0551 2024 1:00amApril 2024 7:44amadminister 1-3 hours before bedtimeAmiodarone 200 mg eojkguIfevpq781XDTMVldptJxzmy 2024 12:00am Complies with drug therapyLisinopril 5 mg sbsuejZfbhxo1UGJDFcrldFglgz 2024 12:00amComplies with drug therapyRivaroxaban (Xarelto) 10 mg bzmuyxXcqfou71BPLD DailyUniversity Hospitals Health System 2024 12:00amComplies with drug therapyQuetiapine (Seroquel) 200 mg leezvhKzeeorvgsmgu508IWPUOexwl at bedtimeUniversity Hospitals Health System 2024 1:15pmApril 2024 10:22amSertraline 25 mg jnltahQrusqedpiocf95NUEEHggew71Fogpv 2024 12:00amApril 2024 7:44amRopinirole 1 mg lmetpcKrwzofjertui8EDYYBuibg times llrtt84727Tokv 3rd, 2025 12:00amAugust 2024 1:43pmRopinirole 4 mg tablet extended release 24 ldSglaawscbulj7FIBNEeysj at nerrkyu0378Vnurmx 2024 12:00amSeptember 2024 10:12amQuetiapine (Seroquel) 200 mg tablet Nfvtldnficzw676YWYRUfwjpTisevkam 2023 1:00amMarch 2024 1:16pm Lisinopril 2.5 mg yrlnplUhludptnqtxa1ROMKGupzcHegdzctd 2023 1:00amMay 2024 12:39pmWarfarin 2.5 mg tabletDiscontinued2.5MGPODailyPsychiatric 2023 1:00amJanuary 2024 12:49pmRanolazine 500 mg tablet extended release 12 hr Otmjyl659OJMWPtfyc dailyPsychiatric 2023 1:00amComplies with drug therapy Canagliflozin (Invokana) 300 mg yjrbvuFtvria227FPRQHcqgoCncksrzr 7th, 2024 1:00amComplies with drug therapyRosuvastatin 5 mg lkgzfsJyhfbcslzrgr17CANXSjdvz September 08, 2024 1:00amMay 2024 1:52pmMetoprolol Succinate 25 mg tablet extended release 24 vsDhfaqe04HRZJOutygFcrekohg 7th, 2024 1:00amComplies with drug therapyCyclobenzaprine 10 mg zrbwibXodvdwaefafw77UKIXMxlug at bedtime September 08, 2024 1:00amMarch 2024 1:05pmMexiletine 150 mg capsule Wegsxguhchtk804PXJHGmulm 8 hoursSeptember 08, 2024 1:00amMay 2024 1:44pm Lurasidone (Latuda) 60 mg ddtlfaLcljwmhbxrjd09WFDPAmlbpTzlwdbhf 7th, 2024 1:00am January 30, 2025 1:05pmmust administer with food (at least 350 calories) Benzonatate 200 mg ffyggpwIafvgyawiasc746UGIFXxhxd times daily as needed for wogor3639YdqsApril 07, 2025 12:00amAugu2024 1:11pmFluconazole 150 mg tablet Fokgvk195VNJTT1Q09Zwylxtfso 30th, 2025 12:00amTake 1st dose at onset of symptoms then repeat in 3 days if continued symptomsComplies with drug therapyDoxycycline Monohydrate 100 mg ylgwecVtkxqu027ZNNBSgugs qxacg367Zigjfjiqv 30th, 2025 12:00am Complies with drug therapy Immunizations Immunization Event Date Not Given Reason Dose Number Cork Insulator Helper Lot Number Vaccine Information Statement (VIS) Detail Administration Location COVID-19 mRNA-1273 (Moderna) February 19, 2021 COVID-19 mRNA-1273 (Moderna)June 21, 2021Influenza, seasonal, injectable, pf August 01, [id number] [facility]Pneum[facility] Conjugate Vaccine, [id number] [facility] CenterPneumococcal Polysacc. Vaccine, valentJune 2019Quadrivalent InfluenzaOctober 2016Quadrivalent InfluenzaNovember 2017Zoster Vaccine Recombinant, AdjuvantedOctober 2018Zoster Vaccine Recombinant, AdjuvantedJune 2019 Tetanus, Diphtheria, Pertussis (Tdap)June [id number] Health System [facility] Campus CtrTetanus, Diphtheria, Pertussis (Tdap)August 02, 2019Tetanus, Diphtheria, Pertussis (Tdap)April 16, 2020Trivalent Influenza VaccineAugust 2020 Medical Equipment Device Date Implanted Device Details CANCELLOUS 7.5 CRUSHED January 14, 2018 K-WIRE 1.25MM X 150MM W/TROCMarch 15, 2017K-WIRE 1.25MM X 150MM W/TROCMarch 15, 2017K-WIRE 1.25MM X 150MM W/TROCMarch 15, 2017PLATE 2.4MM VA-LCP VOLAR LEFTMarch , 2017SCREW 2.4MM LOCKING VARIABLEMarch 15, 2017SCREW 2.4MM LOCKING VARIABLEMarch 15, 2017SCREW 2.4MM LOCKING VARIABLEMarch , 2017 SCREW 2.4MM LOCKING VARIABLEMarch , 2017SCREW CORTEX 2.7MM X 14MMMarch 15, 2017SCREW CORTEX 2.7MM X 24MMMarch 15, 2017SCREW LOCKING 2.4MM X 12MMMarch 15, 2017SCREW LOCKING 2.4MM X 12MMMarch , 2017SCREW LOCKING 2.4MM X 14MM January 14, 2018Iliofemoral artery endovascular stent-graftMay 2024UDI: [id number] Issuing Agency: [employer]1 Device Id: [id number] Expiration Date: 2027-05-01 Lot Number: [id number] Relevant Diagnostic Tests and/or Laboratory Data Laboratory Results Test Collection Date/Time Result Date/Time Result Interpretation Reference Range Result Comment Performing Site Iron Saturation June 07, 2025 2:06pm June 07, 2025 2 :06pm 34.7 % Vitamin B12 LevelAugus2024 2:06pmAugus2024 2:68xr076 pg/[id number] Performed at: [facility] [id number] Director: Jose Damon PhD, Phone: [phone]-Dnmempf Vitamin D Total June 07, 2025 2:06pmAugust 2024 2:06pm28.7 ng/mL<20 ng/mL Vit D niqtfsalo83-<30 ng/mL Vit D bzumombsghmu14-778 ng/mL Vit D sufficient>100 ng/mL Potential ToxicityFerritinAugust 2024 2:06pmAugust 2024 2:70sx065.0 ng/mLAbove high normal8.0-252.0Anion GapAugust 2024 2:06pmAugust 2024 2:06pm13.9Basophils # (Auto)June 07, 2025 2:06pmAugust 2024 2:06pm0.1 10 3/uL0.0-0.1Iron LevelAugust 2024 2:06pmAugust 2024 2:05fg432.0 ug/dL 50.0-170.0BUN/Creatinine RatioAugust 2024 2:06pmAugust 2024 2:06pm16.2 Basophils (%) (Auto)June 07, 2025 2:06pmAugust 2024 2:06pm1.2 %0.2-2.0 Total Iron Binding CapacityAugust 2024 2:06pmAugust 2024 2:90rt616.0 ug/dL250.0-450.0Blood Urea NitrogenAugust 2024 2:06pmAugust 2024 2:06pm11.0 mg/dL7.0-18.0Eosinophils # (Auto)June 07, 2025 2:06pmAugust 2024 2:06pm0.2 10 3/uL0.0-0.7Calcium LevelAugust 2024 2:06pmAugust 2024 2:06pm9.5 mg/dL8.5-10.1Eosinophils (%) (Auto)June 07, 2025 2:06pmAugust 2024 2:06pm2.5 %0.9-7.0Chloride LevelAugust 2024 2:06pmAugust 2024 2:03in408 mmol/U82-066HahwhavevyWpcjds 2024 2:06pmAugust 2024 2:06pm46.2 %36.0-48.0Carbon Dioxide LevelAugust 2024 2:06pmAugust 2024 2:06pm23.3 mmol/L21.0-32.0HemoglobinAugust 2024 2:06pmAugust 2024 2:06pm15.4 g/dL12.0-16.0CreatinineAugust 2024 2:06pmAugust 2024 2:06pm 0.68 mg/dL0.55-1.02Immature Granulocyte # (Auto)June 07, 2025 2:06pmAugust 2024 2:06pm0.01 10 3/uL0.00-0.03Estimated GFR ()June 07, 2025 2:06pmAugust 2024 2:06pm>60>=60 mL/min/1.73m 2Immature Granulocyte % (Auto)June 07, 2025 2:06pmAugust 2024 2:06pm0.1 %0.0-0.5Estimated GFR (Non- AmericanAugust 2024 2:06pmAugust 2024 2:06pm>60>=60 mL/min/1.73m 2Lymphocytes # (Auto)June 07, 2025 2:06pmAugust 2024 2:06pm 2.6 10 3/uL1.2-3.8Glucose LevelAugust 2024 2:06pmAugust 2024 2:39rb288 mg/aN45-685Fwdsgsabmoe (%) (Auto)June 07, 2025 2:06pmAugust 2024 2:06pm 31.6 %20.5-60.0Potassium LevelAugust 2024 2:06pmAugust 2024 2:06pm4.2 mmol/L3.5-5.1Mean Corpuscular HemoglobinAugust 2024 2:06pmAugust 2024 2:06pm27.5 pg26.7-34.0Sodium LevelAugust 2024 2:06pmAugust 2024 2:06pm 139 mmol/O074-174Ninu Corpuscular Hemoglobin ConcentAugust 2024 2:06pm June 07, 2025 2:06pm33.3 g/dL29.9-35.2Mean Corpuscular VolumeAugust 2024 2:06pmAugust 2024 2:06pm82.6 fL81.0-99.0Monocytes # (Auto)June 07, 2025 2:06pmAugust 2024 2:06pm0.5 10 3/uL0.3-0.8Monocytes (%) (Auto)June 07, 2025 2:06pmAugust 2024 2:06pm6.5 %1.7-12.0Mean Platelet VolumeAugust 2024 2:06pmAugust 2024 2:06pm10.4 fL9.5-13.5Neutrophils # (Auto)June 07, 2025 2:06pmAugust 2024 2:06pm4.7 10 3/uL1.4-6.5Neutrophils (%) (Auto)June 07, 2025 2:06pmAugust 2024 2:06pm58.1 %43.0-75.0Platelet CountAugust 2024 2:06pmAugust 2024 2:35bh428 10 3/tO726-985Qdq Blood CountAugust 2024 2:06pmAugust 2024 2:06pm5.59 10 6/uLAbove high normal4.20-5.401+ ANISO1+ OVALCorrected White Blood CountAugust 2024 2:06pmAugust 2024 2:06pm8.1 10 3/uL4.0-11.0 Vital Signs Vital Reading Result Reference Range Collection Date/Time Height 60 [in_i] June 07, 2025 1:86piTqijpn72.86 kgAugust 2024 1:11pmHeart Rate80 /min 60-100August 2024 1:11pmRespiratory rate14 /bdl55-45Jzmpbn 2024 1:11pm Oxygen saturation by Pulse unhohrlx43 %95-100August 2024 1:11pmBP Systolic 112 mm[Hg]100-140August 2024 1:11pmBP Vbecamzip39 mm[Hg]60-100August 2024 1:11pmBMI (Body Mass Index)27.9 kg/q6Laxxec 2024 1:69vuSgnyho13 [in_i] August 01, 2025 1:74sqEyjlcl55.86 kgSeptember 2024 1:04pmBody Dwkhmqwjlnq80.4 [degF]97.6-99.0Sept2024 1:04pmHeart Rate84 /min 60-100Sept2024 1:04pmOxygen saturation by Pulse adrzmfux42 %95-100 August 01, 2025 1:04pmBP Ylstjvxl629 mm[Hg]100-140September 2024 1:04pmBP Shrsgqfxj80 mm[Hg]60-100September 2024 1:04pmBMI (Body Mass Index)27.9 kg/p8Nltojnrli2024 1:46rvQkbzqx01.46 kgOctober 2024 12:16pmHeart Rate74 /dju40-701Qfftltk 2024 12:16pmOxygen saturation by Pulse waztiksi18 %95-100October 2024 12:16pmBP Qkhxgxee971 mm[Hg]100-140 August 10, 2025 12:16pmBP Huppvcuom73 mm[Hg]60-100October 2024 12:16pm Advance Directives Advance Directive Response Recorded Date/ Time Advance Directives No April 11 10:33am Insurance Providers Guarantor Latanya Martinez Address [address] [address]Jxrolri Info.Home Phone: Payer Policy Id Subscriber's Name Subscriber Id Effectiv e Date Expiration Date Medicaid [id number] Latanya Martinez [id number] A [id number] Encounters Encounter Location(s) Arrival/Admit Date Discharge/Depart Date Provider(s) Departed Physician/Prov ider Office Visit -[facility] June 07, 2025 1:08pm June 07, 2025 1:54pm Jeri Fletcher APRN CNP Departed Physician/Prov ider Office Visit -[facility] [place] July 11, 2025 10:23am July 11, 2025 11:07am Heather Swanson DO Departed Physician/Prov ider Office Visit -[facility] August 01, 2025 1:02pm August 01, 2025 2:00pm Jeri Fletcher APRN CNP Departed Physician/Prov ider Office Visit -[facility] [place] August 10, 2025 12:15pm August 10, 2025 12:46pm Heather Swanson DO Recent Diagnosis Onset Date Admit Date Paresthesia of bilateral legs Unknown Au 2024 1:08pm Restless leg syndrome Unknown June 1:08pm Paresthesia of bilateral legs Unknown Se pt2024 10:23am Afib Unknown August 01, 2025 1:02pm Bipolar 1 disorder, depressed Unknown Se pt2024 1:02pm BMI 27.0-27.9,adult Unknown August 012024 1:02pm Radha vaginitis Unknown July 1:02pm Cardiac defibrillator in place Unknown S eptember 2024 1:02pm Chronic congestive heart failure Unknown August 01, 2025 1:02pm Diabetes Unknown August 01, 2025 1:02pm GERD (gastroesophageal reflux disease) Unknown August 01, 2025 1:02pm HLD (hyperlipidemia) Unknown July 052024 1:02pm HTN (hypertension), benign Unknown [facility] 2024 1:02pm Ischemic cardiomyopathy [facility] 1:02[facility] Post-menopausal Unknown August 01, 2025 1:02pm [facility] for [facility] Wellness examination Unknown July 052024 1:02pm Bronchitis Unknown August 01, 2025 1:02pm COPD (chronic obstructive pulmonary disease) Unk nown August 01, 2025 1:02pm On deep vein thrombosis (DVT) prophylaxis Unknow n August 01, 2025 1:02pm History of pulmonary embolus (PE) Unknown August 01, 2025 1:02pm Stented coronary artery Unknown Septembe r 2024 1:02pm Sustained monomorphic ventricular tachycardia Un known August 01, 2025 1:02pm Tobacco abuse Unknown August 01, 2025 1:02pm Pacemaker Unknown August 10 12:15pm Restless leg syndrome Unknown August 12:15pm Assessments Diagnosis Onset Date Resolution Status Admit Date Paresthesia of bilateral legs acuteAugust 2024 1:08pmRestless leg syndromeacuteAugust 2024 1:08pm Paresthesia of bilateral legsacuteSept2024 10:23amAfibacuteSept2024 1:02pmBipolar 1 disorder, depressedacutept2024 1:02pm BMI 27.0-27.9,adultacuteSept2024 1:02pmCandida vaginitisacute August 01, 2025 1:02pmCardiac defibrillator in placeacutept2024 1:02pmChronic congestive heart failureacuteSept2024 1:02pm DiabetesacuteSept2024 1:02pmGERD (gastroesophageal reflux disease) acuteSept2024 1:02pmHLD (hyperlipidemia)acuteSept2024 1:02pmHTN (hypertension), benignacuteSept2024 1:02pmIschemic cardiomyopathyacuteSept2024 1:02pmPost-menopausalacuteSept2024 1:02pmScreening for osteoporosisacuteSept2024 1:02pm Wellness examinationacuteSept2024 1:02pmBronchitisresolvedSept2024 1:02pmCOPD (chronic obstructive pulmonary disease)resolvedpt2024 1:02pmOn deep vein thrombosis (DVT) prophylaxisresolvedSept5 1:02pmHistory of pulmonary embolus (PE)inactiveSeptember 2024 1:02pmStented coronary arteryinactiveSepthonorhealth rehabilitation hospital 2024 1:02pmSustained monomorphic ventricular tachycardiainactiveSeptember 2024 1:02pmTobacco abusedeletedSepthonorhealth rehabilitation hospital 2024 1:02pmPacemakeracuteOctgood [facility] 2024 12:15pm Restless leg syndromeacuteOctgood samaritan hospital 2024 12:15pm Plan of Treatment Author Parth Hernandez [facility] 2024 12:46pmIt is my impression that the patient has signs and symptoms of restless leg. We did do an EMG of the bilateral lower extremities which was unremarkable for pathology such as neuropathy or radiculopathy. The patient's ferritin level is 255 and this would not be causative. She is on ropinirole 4 mg p.o. nightly extended release and initially this was very helpful but this seemed to help less so more recently. B12 is also normal. Examination otherwise unremarkable. Plan: Okay to continue ropinirole ER 4 mg p.o. nightly I would suggest the addition of gabapentin 300 mg p.o. nightly only. When the patient was on doses of this during the day it made her dizzy but she is open to trying this only at night and I think this could be very helpful Side effects discussed in detail. Patient understands and wishes to proceed with treatment. I wanted to make note of this. Patient is not able to have MRI in the future if required. Author Jeri [facility]prov[facility]fl[facility] 2024 3:01pmDiscussed symptoms with pt , will trial on the extended release, while waiting for the neurology appt and EMG pt verbalizes understanding and agrees to plan of care. Will call with results and further recommendations. Referral to neurology for EMG. Author [facility] 20[facility] 3:06pmWill treat empirically for yeast, discharge and sx reported consistent with that of vaginal candidiasis. Instructed patient to take as directed, advised that she should feel improvement in about 2 days. May repeat course in 72 hours if sx persist as significant amount of d/c and irritation present today. Patient to follow with with [employer]XIDE FURNACE TENDER as needed for persistent or worsening symptoms. Immediate eval for warning s/sx as discussed, including but not limited to, abdominal pain, fever, back/flank pain, nausea. Patient may use OTC external yeast infection creams for external irritation. Wear loose fitting, cotton clothing, avoid scratching and douching, dry the outside vaginal area well after you shower, bathe, or swim, avoid bubble baths, harsh soaps, and feminine sprays. Abstain from sexual intercourse at this time while awaiting Vag + results. Patient verbalizes understanding and is agreeable to treatment plan. Discussed diagnosis with patient. Patient to start Doxycycline. Patient to take daily with food as prescribed. Finish entire course of antibiotic. Increase fluids and rest. Vtqs-rdk-sfhhhqx antipyretics as needed. Warning signs and symptoms reviewed with patient today. Patient to go immediately to the ER should she experience any of these. Patient to notify office should her symptoms persist and not improve. Patient verbalizes understanding and agrees to treatment plan. To goal. Continue Lisinopril Prior to your visit today we reviewed your chart and outlined the testing and treatment needed for your care. We discussed the possible complications of high blood pressure, including increased risk for heart disease, stroke, and kidney disease. Our goal is to keep your blood pressure below 130/85 (an preferably < 120/80) and maintain a healthy weight with a BMI less than 26. We are working together to achieve these goals with the following plan; healthier diet, increased activity and exercise, understanding your medications, and your compliance. Stable. Continue Atorvastatin Due for labs Discussed importance of maintaining an LDL level at specified goal. Discussed associated risk factors of hyperlipidemia including stroke and heart attack. Treatment with medications discussed and we have agrees upon appropriate action of treatment and goals. Discussed dietary modifications, including decreasing red meat consumption, decreased alcohol consumption, avoiding fried foods, and cake and cookies, and sweets. Encouraged increasing fiber in diet and eat a diet rich in omega-3. Encouraged to exercise at least 150 minutes weekly. Barriers to plan of care have been addressed. Follow-up as directed. Patient given a copy of the plan of care. A1c 5.2 03/2025 Continue Invokana. Due for labs ??Prior to your visit today we reviewed your chart and outlined the testing and treatment needed for your care. We discussed possible complications of diabetes including risk of heart disease, stroke, and kidney disease. Your goal is to keep your HgA1C below 7 (preferably <6.5) and your blood pressure less than 130/85 (and preferably < 120/80) and maintaining a healthy weight with a BMI less than 26. We are working together to achieve these goals with the following plan; healthier diet, understanding your medications, and your compliance. Barriers to these goals have been discussed. Patient is postmenopausal and therefore at risk for osteoporosis. Risks and benefits of DEXA scan discussed with patient today. She is due for DEXA scan. Patient is interested in getting a DEXA scan today. DEXA scan ordered today. She has been following with Dr. Preston . She has a AICD in place. 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 Stable. Prior to your visit today we reviewed your chart and outlined the testing and treatment needed for your care.We discussed the possible complications of COPD , including increased risk for acute exacerbation and respiratory failure. Our goal is to keep your COPD under control to avoid exacerbation and hospitalizations. maintain a healthy weight with a BMI less than 26. We are working together to achieve these goals with the following plan; healthier diet, increased activity and exercise, understanding your medications and your compliance, Continue pantoprazole. Reflux symptoms remain unchanged. Discussed the importance of meal content. They should avoid overeating and eating meals late in the evening. Take medication as directed and we will continue to monitor. On Coumadin, managed through Cardiology Clinic Follows with Cardiology -- Dr Mohan NAIR Currently on Amiodarone. Atrial fibrillation is currently stable, Unaware of palpitations, or shortness of breath. No chest pain. Coumadin is tightly managed in our in office Coumadin clinic. No issues with bleeding. Currently on Seroquel. -- Increased sertraline -- [address] chest on 03/2025 We discussed possible complications of smoking including [...] and willingness to quit at each appointment. Personalized health advice given plan for screenings discussed and provided. Advanced care planning reviewed and/or information given as requested. Additional counseling was provided here today in regards to general topics regarding health education were discussed in detail. All preventative issues were discussed including remaining a nonsmoker, colorectal screening, the importance of proper sleep for brain health maintenance, maintaining a heart-healthy balanced diet, recognizing and addressing signs of anxiety and depression, maintaining positive relationships with family and friends. Following with cardiology. Review notes as received. Future Tests Future scheduled test information is unavailable Pending Tests Test Name Ordered Date Scheduled Date Comprehensive Metabolic Panel August 01 1:43pm XR dexa axial skeletonSept2024 1:54pmMM screening mammo BI w/CAD August 01, 2025 1:54pm Future Visits Future appointment information is unavailable Referrals to Other Providers Reason for Referral Referral Start Date Provider Pio fuller Contact Information Provider Address R20.2 - Paresthesia of skin, G25.81 - Restless legs syndrome June 07, 2025 [facility] [address] [address] Future Procedures Procedure Name Ordered Date Scheduled Date Complete Blood Count Auto Diff August 01 025 1:43pm Lipid PanelSept2024 1:43pmMicroAlb Creat Ratio,USept2024 1:43pm Future Medications Future medication information is unavailable Patient Instructions Patient instructions are unavailable
[2025-08-24 14:20] LABS: Hematocrit 45.7 % (36.0-48.0); Hemoglobin 16.2 g/dL (12.0-16.0); Immature Granulocytes Abs Auto 0.03 10^3/uL (0.00-0.03); Immature Granulocytes Pct Auto 0.3 % (0.0-0.5); Lymphocytes Absolute Auto 2.4 10^3/uL (1.2-3.8); Mean Corpuscular HGB Conc 35.4 g/dL (29.9-35.2); Mean Corpuscular Hemoglobin 33.7 pg (26.7-34.0); Mean Corpuscular Volume 95.0 fL (81.0-99.0); Platelet Count 265 10^3/uL (150-450); Red Blood Count 4.81 10^6/uL (4.20-5.40); White Blood Count 10.1 10^3/uL (4.0-11.0)
[2025-08-24 14:34] LABS: Alanine Aminotransferase 83 U/L (14-59); Albumin Globulin Ratio 0.9; Albumin Level 3.5 g/dL (3.4-5.0); Alkaline Phosphatase 97 U/L (46-116); Anion Gap 13.2; Aspartate Amino Transferase 76 U/L (15-37); Blood Urea Nitrogen 9.0 mg/dL (7.0-18.0); Calcium 9.3 mg/dL (8.5-10.1); Carbon Dioxide 27.8 mmol/L (21.0-32.0); Chloride 102 mmol/L (98-107); Estimated GFR (African America >60 (>=60 mL/min/1.73m^2); Estimated GFR (Non-African Ame >60 (>=60 mL/min/1.73m^2); Globulin 3.9 g/dL; Glucose 128 mg/dL (74-106); Potassium 3.0 mmol/L (3.5-5.1); Sodium 140 mmol/L (136-145); Total Protein 7.4 g/dL (6.4-8.2)
[2025-08-24 14:35] LABS: Cholesterol 126 mg/dL (<=200); HDL Cholesterol 52 mg/dL (40-60); Triglycerides 138 mg/dL (<=150); VLDL CHOLESTEROL 27.6 mg/dL
== END 2025-08-24 13:49 | disposition home or self-care (01) ==
LOC: LAB 13:50
PROVIDERS: PCP Nurse Practitioner Family; Visit Provider Nurse Practitioner Family
DX: E11.9 Type 2 diabetes mellitus without complications (principal); K90.9 Intestinal malabsorption, unspecified; E78.5 Hyperlipidemia, unspecified; I10 Essential (primary) hypertension; D50.9 Iron deficiency anemia, unspecified
CPT/HCPCS: 36415; 80053; 80061; 82043; 82306; 82570; 82607; 82728; 82746; 83540; 83550; 85025

== ENCOUNTER 2025-08-24 13:53 | Outpatient (OUT) | payer MEDICARE, MEDICAID, SELFPAY ==
[2025-08-24 15:03] LABS: Iron 129.0 ug/dL (50.0-170.0); Percent Iron Saturation 38.3 %; Total Iron Binding Capacity 337.0 ug/dL (250.0-450.0)
[2025-08-24 15:56] LABS: Ferritin 263.0 ng/mL (8.0-252.0); Folate 8.10 ng/mL (8.60-58.90)
[2025-08-25 04:07] LABS: Vitamin B12 764 pg/mL (232-1245)
== END 2025-08-24 13:54 | disposition home or self-care (01) ==
LOC: LAB 13:55
PROVIDERS: PCP Nurse Practitioner Family; Visit Provider Internal Medicine Hematology & Oncology
DX: D50.9 Iron deficiency anemia, unspecified (principal); K90.9 Intestinal malabsorption, unspecified
CPT/HCPCS: 36415; 82306; 82607; 82728; 82746; 83540; 83550

== ENCOUNTER 2025-10-03 15:06 | Outpatient (OUT) | payer MEDICARE, MEDICAID, SELFPAY ==
--- OUTSIDE RECORDS SUMMARY | 2025-10-03 07:55 | XMS_ITS | Encounter Summary ---
Author Organization [facility] Address [address] [place] [address] Phone Care Team Providers Care Electromedical Equipment Repairer Name Role Phone June Preston MD Unavailable Conchita Aden MD Primary Care Provider [phone] Reason for Referral * Imaging (Routine) - Pending ReviewSpecialtyDiagnoses / ProceduresReferred By ContactReferred To ContactCardiology Diagnoses ICD (implantable cardioverter-defibrillator) in place Paroxysmal ventricular tachycardia Procedures Cardiac Device Check - Remote June Preston MD [address] [address] Phone: tel: fax: Referral IDStatusReasonStart DateExpiration DateVisits RequestedVisits [id number] Review Perform Procedure Reason for Visit * Imaging (Routine) - Pending ReviewSpecialtyDiagnoses / ProceduresReferred By ContactReferred To ContactCardiology Diagnoses ICD (implantable cardioverter-defibrillator) in place Paroxysmal ventricular tachycardia Procedures Cardiac Device Check - Remote June Preston MD [address] [facility], [address] [address] Phone: tel: fax: Referral IDStatusReasonStart DateExpiration DateVisits RequestedVisits [id number] Review Perform Procedure / Encounter Details DateTypeDepartmentCare Team (Latest Contact Info)Giziqkeeily63/02/2025 7:55 AM ESTHospital Encounter [facility] [address] [place] [address] ICD (implantable cardioverter-defibrillator) in place; Paroxysmal ventricular tachycardia Social History Tobacco UseTypesPacks/DayYears UsedDateSmoking Tobacco: Every DayCigarettes0.3 50.9Started: 1975Smokeless Tobacco: NeverAlcohol UseStandard Drinks/WeekComments Never0 (1 standard drink = 0.6 oz pure alcohol)B1300 Health LiteracyAnswerDate RecordedHow often do you need to have someone help you when you read instructions, pamphlets, or other written material from your doctor or pharmacy? Never01/08/2025HC UtilitiesAnswerDate RecordedIn the past 12 months has the [employer], oil, or water [employer] threatened to shut off services in your home?No04/14/2025Humiliation, Afraid, Rape, and Kick questionnaireAnswerDate RecordedWithin the last year, have you been afraid of your partner or ex-partner?No04/14/2025Within the last year, have you been humiliated or emotionally abused in other ways by your partner or ex-partner?No04/14/2025 Within the last year, have you been kicked, hit, slapped, or otherwise physically hurt by your partner or ex-partner?No04/14/2025Within the last year, have you been raped or forced to have any kind of sexual activity by your part ner or ex-partner?No04/14/2025Social Connection and Isolation PanelAnswerDate RecordedIn a typical week, how many times do you talk on the phone with family, friends, or neighbors?Once a week01/08/2025How often do you get together with friends or relatives?Once a week01/08/2025How often do you attend latter-day or holiness services?Patient ckuouxdp18/09/2025Do you belong to any clubs or organizations such as latter-day groups, unions, fraternal or athletic groups, or school groups?Patient tjxvecan56/09/2025How often do you attend meetings of the clubs or organizations you belong to?Patient opjawcpw43/09/2025re you , , , , never , or living with a partner?Patient gowbpzvx83/09/2025UDIT-CAnswerDate RecordedQ1: How often do you have a drink containing alcohol?Never04/14/2025Q2: How many drinks containing alcohol do you have on a typical day when you are drinking?Patient does not drink04/14/2025Q3: How often do you have six or more drinks on one occasion?Never04/14/2025Overall Financial Resource Strain (CARDIA)AnswerDate RecordedHow hard is it for you to pay for the very basics like food, housing, medical care, and heating?Not hard at all04/14/2025PHQ-2AnswerDate RecordedPatient Health Questionnaire-2 Score0 04/14/2025Finmount[facility]star [facility] [employer] [facility] Occupational Health - Occupational Stress QuestionnaireAnswerDate RecordedDo you feel stress - tense, restless, nervous, or anxious, or unable to sleep at night because yourmind is troubled all the time - these days?Not at all01/08/2025Exercise Vital SignAnswerDate RecordedOn average, how many days per week do you engage in moderate to strenuous exercise (like a brisk walk)?0 days01/08/2025On average, how many minutes do you engage in exercise at this level?0 min01/08/2025Hunger Vital SignAnswerDate Recorded Within the past 12 months, you worried that your food would run out before you got the money to buymore.Never true04/14/2025Within the past 12 months, the food you bought just didn't last and you didn't have money to get more.Never true 04/14/2025PRAPARE - TransportationAnswerDate RecordedIn the past 12 months, has lack of transportation kept you from medical appointments or from getting medications?No04/14/2025In the past 12 months, has lack of transportation kept you from meetings, work, or from getting things needed for daily living?No 04/14/2025Housing Stability Vital SignAnswerDate RecordedIn the last 12 months, was there a time when you were not able to pay the mortgage or rent on time?No 02/16/2024In the last 12 months, how many places have you lived?In the last 12 months, was there a time when you did not have a steady place to sleep or slept in ashelter (including now)?No02/16/2024Housing Stability Vital SignAnswerDate RecordedIn the last 12 months, was there a time when you were not able to pay the mortgage or rent on time?No04/14/2025In the past 12 months, how many times have you moved where you were living?t any time in the past 12 months, were you homeless or living in a [facility] (including now)?No 04/14/2025CommentsNoSex and Gender InformationValueDate RecordedSex Assigned at BirthNot on fileLegal PbnJisxls29/25/2022 10:34 AM ESTGender IdentityNot on fileSexual OrientationNot on filedocumented as of this encounter Plan of Treatment DateTypeDepartmentCare Team (Latest Contact Info)Mrxtpswbvdn29/10/2026 3:10 PM EDTOffice Visit [facility] [address] [phone] Oscar Rodriguez MD [address] [facility], [address] [address] NameTypePriorityAssociated DiagnosesDate/TimeCardiac Device Check - Remote Implantable Cardiac DeviceRoutine ICD (implantable cardioverter-defibrillator) in place Paroxysmal ventricular tachycardia 10/03/2025 9:48 AM ESTNameTypePriorityAssociated DiagnosesOrder ScheduleCardiac Device Check - RemoteImplantable Cardiac DeviceRoutine ICD (implantable cardioverter-defibrillator) in place Paroxysmal ventricular tachycardia Once for 1 Occurrences starting 10/03/2025 until 10/03/2025documented as of this encounter Visit Diagnoses Diagnosis ICD (implantable cardioverter-defibrillator) in place Paroxysmal ventricular tachycardia documented in this encounter Additional Health Concerns AssessmentNoted TimePHQ-9 Depression Total Score: 9001/22/2022 11:33 AM EDTA fall risk assessment has been completed for the ztgkkhy5403/01/2024 12:30 PM EDT documented as of this encounter Care Teams Team MemberRelationshipSpecialtyStart DateEnd Date Conchita Aden MD [facility] [place], [place] [phone] PCP - GeneralFamily Medicine11/11/24 June Preston MD [address] [facility] [address], [address] [place], [place] [phone] CardiologistCardiology-Clinical Cardiac Kzytqwvqamnnxrkzt65/12/24documented as of this encounter
--- OUTSIDE RECORDS SUMMARY | 2025-10-03 15:20 | XMS_ITS | Clinical Summary ---
Author Organization [facility] Address [address] [place] [address] Phone Care Team Providers Care Paper Sales Manager Name Role Phone June Preston MD Unavailable Conchita Aden MD Primary Care Provider [phone] Allergies Active AllergyReactionsCriticalityNoted DateCommentsGabapentinDizzinessLow 07/14/20254383IyfwvrmoxbNcjrgfsjpNet54/12/2025 Medications MedicationSigDispense QuantityRefillsLast FilledStart DateEnd DateStatus lansoprazole (Prevacid) [address] capsule Take 1 capsule (30 mg) by mouth once daily.Active meclizine (Antivert) 25 mg tablet Take 1 tablet (25 mg) by mouth 2 times a day.Active oxybutynin XL (Ditropan-XL) 10 mg 24 hr tablet Take 1 tablet (10 mg) by mouth once daily.03/17/2023ctive QUEtiapine (SEROquel) 200 mg tablet Take 1 tablet (200 mg) by mouth once daily at bedtime.06/27/2023ctive magnesium oxide (Mag-Ox) 400 mg (241.3 mg magnesium) tablet Take 1 tablet by mouth 2 times a day.07/28/2023ctive melatonin 5 mg tablet Take 1 tablet (5 mg) by mouth once daily at bedtime.Active lisinopril 2.5 mg tablet Indications:Essential hypertensionTake 1 tablet (2.5 mg) by mouth once daily. Take in the evening 90 tablet ctive aspirin 81 mg EC tablet Indications:Atherosclerosis of [place] coronary artery of [place] heart without angina pectorisTake 1 tablet (81 mg) by mouth 2 times a week.11/14/2024 6Active rosuvastatin (Crestor) 20 mg tablet Indications:Atherosclerosis of [place] coronary artery of [place] heart without angina pectoris,Mixed hyperlipidemiaTake 1 tablet (20 mg) by mouth once daily. 90 tablet 501/6Active spironolactone (Aldactone) 25 mg tablet Indications:Essential hypertensionTake 1 tablet (25 mg) by mouth once daily. 90 tablet 506Active Invokana 300 mg Indications:Type 2 diabetes mellitus without complication, without long-term current use of insulin (Multi),Atherosclerosis of [place] coronary artery of [place] heart without angina pectoris,Chronic systolic CHF (congestive heart failure) (Multi)Take 1 tablet (300 mg) by mouth once daily in the morning. Take before meals. 90 tablet 506Active ranolazine (Ranexa) 500 mg 12 hr tablet Indications:Atherosclerosis of [place] coronary artery of [place] heart without angina pectorisTake 1 tablet (500 mg) by mouth 2 times a day. 180 tablet 506Active albuterol 90 mcg/actuation inhaler Indications:ICD (implantable cardioverter-defibrillator) dischargeInhale 2 puffs every 6 hours if needed for wheezing. 18 g 1105Active benzocaine-menthol (Cepastat Sore Throat) lozenge Indications:ICD (implantable cardioverter-defibrillator) dischargeDissolve 1 lozenge in the mouth every 2 hours if needed for sore throat. 40 lozenge 5Active ascorbic acid (Vitamin C) 500 mg chewable tablet Chew and swallow 1 tablet (500 mg) once daily.5Active ferrous sulfate 324 mg (65 mg elemental iron) EC tablet (delayed release) Take 1 tablet (65 mg) by mouth every other day.5Active rOPINIRole (Requip) 1 mg tablet Take 1 tablet (1 mg) by mouth 3 times a day.5Active amiodarone (Pacerone) 200 mg tablet Indications:Paroxysmal ventricular tachycardiaTAKE 1 TABLET (200 MG) BY MOUTH ONCE DAILY. 90 tablet 5Active rivaroxaban (Xarelto) 10 mg tablet Indications:Ventricular tachycardia (Multi),Pulmonary embolism, unspecified chronicity, unspecified pulmonary embolism type, unspecified whether acute cor pulmonale present (Multi),High risk medication useTake 1 tablet (10 mg) by mouth once daily. 90 tablet 308//250222/6Active sertraline (Zoloft) 25 mg tablet Take 1 tablet (25 mg) by mouth early in the morning..5Active lisinopril 2.5 mg tablet Indications:Essential hypertensionTake 1 tablet (2.5 mg) by mouth once daily. 90 tablet 309//495550/6Active lisinopril 5 mg tablet Indications:Chronic systolic CHF (congestive heart failure) (Multi)TAKE ONE TABLET BY MOUTH ONCE DAILY 90 tablet 5Active metoprolol succinate XL (Toprol-XL) 50 mg 24 hr tablet Indications:Paroxysmal ventricular tachycardiaTAKE 1 TABLET BY MOUTH TWICE WEEKLY 24 tablet 5Active Active Problems ProblemNoted DateDiagnosed DateHigh risk medication use07/14/2025VT (ventricular tachycardia)04/14/2025ICD (implantable cardioverter-defibrillator) discharge 5BMI 25.0-25.9,adult4Paroxysmal ventricular tachycardia 08/24/2024Ventricular etcssdukukp88/08/2024ICD (implantable cardioverter- defibrillator) in place4Cardiomyopathy, dgttnmne78/05/2024cquired gzyowkaxhwxidhueu92/29/2023ipolar 1 rviqycol52/29/2023egeneration of lumbar intervertebral disc09/30/2023Mixed bipolar affective disorder, moderate 09/30/2023Moderate persistent asthma without ghznysgrvcln29/29/2023Oral thrush 09/30/2023Oropharyngeal wfnwtyryt43/29/2023olyneuropathy due to type 2 diabetes ynqrbuwe51/29/2023Stable angina pectoris due to arteriosclerosis of coronary gmcowb6009/30/2023Urge incontinence of urine09/30/2023therosclerosis of [place] coronary artery of [place] heart without angina zydkrxdm28/27/2023hronic obstructive pulmonary pdposlx7507/29/2023hronic systolic CHF (congestive heart failure)07/29/2023urrent every day omwqxz2007/29/2023Essential hypertension 07/29/20231253Debkwcufaounhb60/27/2023Intermittent aqxqlyhocfez95/27/2023Iron deficiency pfboua9707/29/2023ulmonary khrbmsmo63/27/2023Status post coronary ogvjeyqrtqr64/27/2023Type 2 diabetes kxosuhnh68/27/3254Owryaaq12/24/2022hronic back pain11/25/2021hronic xglkkawkxo23/24/2022Gastroesophageal reflux disease without nulljaksakj26/24/2022evere episode of recurrent major depressive disorder, without psychotic xetrfldi92/24/2022tatus post Brandy procedure 11/25/2021ostoperative ileus05/30/2015 Overview (09/30/2023): NG tube for bowel decompression, clamp trials completed with return of bowel function Postoperative pain05/23/2015 Overview (09/30/2023): DATA PROCESSING MECHANIC pump and will transition to oral medication with the return of bowel function Vascular insufficiency of orehfjqcv89/08/2015 Resolved Problems ProblemNoted DateDiagnosed DateResolved DateEncounter to discuss test results Paroxysmal ventricular rbsgsgeuxzk87MI 29.0-29.9,adultEncounter for medication review and xzcffbwnce85Encounter to discuss treatment trdhixx8511/06/2023 11/11/20243151Abyjcxt71VT (ventricular tachycardia)09/30/2023 11/11/2024History of ischemic kbbttyqiobadrp73-fib11/25/2021 11/11/2024Elevated Overview (09/30/2023): Cardiology consulted Encounters DateTypeDepartmentCare MjveQkkscjlllwn96/02/2025 7:55 AM ESTHospital Encounter [facility] [address] [facility] [place] [address] ICD (implantable cardioverter-defibrillator) in place; Paroxysmal ventricular lomwvxmjdug69/30/2025Refill [facility] [address] [place] [address] Oscar Rodriguez MD Paroxysmal ventricular potcdahbuau47/23/2025Refill [facility] [address] [place] [address] Oscar Rodriguez MD Chronic systolic CHF (congestive heart failure) (Multi) (Primary Dx)07/17/2025 Refill [facility] [address] [place] [address] Oscar Rodriguez MD Essential hhuwhovxjioh05/12/2025 1:00 PM EDTOffice Visit [facility] [address] [place] [address] Oscar Rodriguez MD Atherosclerosis of [place] coronary artery of [place] heart without angina pectoris (Primary Dx); Cardiomyopathy, [...] anemia; Ventricular tachycardia (paroxysmal) (Multi) Discharge Disposition: Home07/14/2025Travelfrom Last 3 Months Immunizations ImmunizationAdministration DatesNext DueFlu vaccine (IIV4), preservative free *Check age/dose*09/14/2018,08/24/2017Flu vaccine, quadrivalent, no egg protein, age 6 month or greater (FLUCELVAX)06/21/2021Hep A / Hep B004/16/2020Influenza, Chpmplarxxb65/01/2019,12/08/2016,09/24/2014,11/02/2009Influenza, seasonal, hcshcfeqqy44/23/2021Pneumococcal polysaccharide vaccine, 23-valent, age 2 years and older (PNEUMOVAX 23)04/16/2020,12/08/2016,11/09/2006Tdap vaccine, age 7 year and older (BOOSTRIX, ADACEL)06/10/2021,04/16/2020,08/02/2019Zoster vaccine, recombinant, adult (SHINGRIX)04/16/2020,08/03/2019 Family History Medical HistoryRelationNameCommentsCABGBrotherStrokeBrotherStrokeFatherStroke MotherCoronary artery diseaseSisterRelationNameStatusCommentsBrotherFather DeceasedMotherDeceasedSister Social History Tobacco UseTypesPacks/DayYears UsedDateSmoking Tobacco: Every DayCigarettes0.3 50.9Started: 1975Smokeless Tobacco: Never Tobacco Cessation:Counseling Given: Yes Alcohol UseStandard Drinks/WeekCommentsNever0 (1 standard drink = 0.6 oz pure alcohol)B1300 Health LiteracyAnswerDate RecordedHow often do you need to have someone help you when you read instructions, pamphlets, or other written material from your doctor or pharmacy?Never01/08/2025HC UtilitiesAnswerDate RecordedIn the past 12 months has the [employer], [place], or water [employer] threatened to shut off services in your [...] relatives?Once a week01/08/2025How often do you attend baptist or hinduism services?Patient bjfahztb74/09/2025Do you belong to any clubs or organizations such as baptist groups, unions, fraternal or athletic sim ups, or school groups?Patient zioqtknj59/09/2025How often do you attend meetings of the clubs or organizations you belong to?Patient xxjozhxm55/09/2025re you , , , , never , or living with a partner? Patient rnuxqmad02/09/2025UDIT-CAnswerDate RecordedQ1: How often do you have a [...] heating?Not hard at all04/14/2025PHQ-2AnswerDate RecordedPatient Health Questionnaire-2 Ztwfo517[facility] [place] [facility] - Occupational Stress QuestionnaireAnswerDate [...] steady place to sleep or slept in scottelt (including now)?No02/16/2024Housing Stability Vital SignAnswerDate RecordedIn the last 12 months, was there a time when you were not able to pay the mortgage or rent on time?No04/14/2025In the past 12 months, how many times have you moved where you were living? At any time in the past 12 months, were you homeless or living in a prison (including now)?No04/14/2025CommentsNoSex and Gender InformationValue Date RecordedSex Assigned at BirthNot on fileLegal GtnVasvsw22/25/2022 10:34 AM ESTGender IdentityNot on fileSexual OrientationNot on file Last Filed Vital Signs Vital SignReadingTime TakenCommentsBlood Zyzdfdun788/6409 1:05 PM EDT Gpnap8022/12/2025 1:05 PM SUQEhwtwghoqui65.7 ??C (96.3 ??F)04/15/2025 7:30 AM EDTRespiratory Ytei227804/15/2025 7:30 AM EDTOxygen Bhgwviuegm209%04/15/2025 7:30 AM EDTInhaled Oxygen Concentration--Wnjvou08.4 kg (142 lb)07/14/2025 1:05 PM EDT Jlkrqg827.5 cm (5' 2 )07/14/2025 1:05 PM EDTBody Mass Index25.9707/14/2025 1:05 PM EDT Plan of Treatment DateTypeDepartmentCare Team (Latest Contact Info)Blkefrtbnww95/10/2026 3:10 PM EDTOffice Visit [facility] [address] [place] [address] Oscar Rodriguez MD [address] [place], [place] [id number] Health MaintenanceDue DateLast DoneCommentsCT Loncruvblfuy56/07/1961Diabetes: Urine Protein Nsuzlieam81/07/1961FIT-DNA (Cologuard)1960FIT1960HIV Kydqreebc78/07/1961Lipid Panel1960Medicare Annual Wellness Visit (AWV) 1960 5400Ckbdbsaixgasu09/07/1961MMR Vaccines (1 of 1 - Standard series) 2Diabetes: Retinopathy Nuzvuohjt01/07/1971Hepatitis C Screening 1978Cervical Cancer Xyjvvovew10/07/1982HPV/Rrtgmo9811/08/1981Pap Smear 11/08/19813842Bvstikfrs32/07/2001RSV High Risk: (Elderly (60+) or Population) (1 - Risk 50-74 years 1-dose series)2010Hepatitis B Vaccines (2 of 3 - Hep B Twinrix 3-dose series)Diabetes: Hemoglobin A1C503/07/2025, 2COVID-19 Vaccine (3 - season) 508/, 02/19/2021TSH Level3/07/2025, 02/15/2024, 07/24/20230694Bxbbtuurdawsfh90/10/402081/08/2025, 11/10/2023, 07/22/2023, Additional history existsCreatinine Level/, 01/12/2025, 01/11/2025, Additional history existsPotassium Level6001/13/2025, 01/12/2025, 01/11/2025, Additional history existsDTaP/Tdap/Td Vaccines (4 - Td or Tdap) /07/2021, 04/16/2020, 08/02/20197626Oapjmhpgbnh15/23/686098, 05/23/2025olorectal Cancer Hgdnhzvaq53/23/2035Hepatitis A VaccinesAged Out 04/16/2020No longer eligible based on patient's age to complete this topicZoster OsylgvphMqftfqeil12/15/2020, 08/03/2019Influenza JhwxhecKbcmsykyu34/30/2025, 06/21/2021, 01/22/2021, Additional history existsPneumococcal VaccineCompleted 08/01/2025, 04/16/2020, 12/08/2016, Additional history existsHIB VaccinesAged OutNo longer eligible based on patient's age to complete this topicHPV Vaccines Aged OutNo longer eligible based on patient's age to complete this topicIPV VaccinesAged OutNo longer eligible based on patient's age to complete this topic Meningococcal VaccineAged OutNo longer eligible based on patient's age to complete this topicRotavirus VaccinesAged OutNo longer eligible based on patient's age to complete this topic Medical Devices ImplantedTypeAreaManufacturerDevice IdentifierShelf Expiration DateModel / Serial / LotIcdICDRight: Chest WallIcd-09/02/2023 Implanted:09/02/2023 (Quantity not on file)ICDRight: ChestIcd-09/30/2023 Implanted:09/30/2023 (Quantity not on file)ICDRight: Chest Procedures Procedure NamePriorityDate/TimeAssociated DiagnosisCommentsECG 12-LEADRoutine 07/14/2025 1:00 PM EDT Paroxysmal ventricular tachycardia BASIC METABOLIC PANELPending Cjtbwlqvd36/14/2025 5:23 AM EDT TRANSTHORACIC ECHO (TTE) COMPLETE WITH PUGLADAEYCGW14/10/2025 11:15 AM EDT Paroxysmal ventricular tachycardia (Multi) HEMOGLOBIN S2FJlv-Db55/09/2025 7:21 PM EDT TSH WITH REFLEX TO FREE T4 IF ABNORMALAdd-On01/08/2025 7:21 PM EDT from Last 3 Months or Most Recently Relevant to Health Maintenance Results * ECG 12 Lead (07/14/2025 1:00 PM EDT)Specimen (Source)Anatomical Location / LateralityCollection Method / VolumeCollection TimeReceived Time Narrative CPACS - 07/14/2025 1:30 PM EDT ECG revealed atrial pacemaker rhythm, septal myocardial infarction of undetermined age, diffuse repolarization normalities, abnormal ECG Authorizing ProviderResult TypeResult StatusOscar Rodriguez MDECG ORDERABLES Final ResultPerforming OrganizationAddressCity/State/ZIP CodePhone Number [facility] * (ABNORMAL) Basic Metabolic Panel (01/13/2025 5:23 AM EDT)ComponentValueRef RangeTest MethodAnalysis TimePerformed AtPathologist MgnxgbtfdZbokxai0505 - 99 mg/dL LAB CHEMISTRY METHOD 01/13/2025 6:28 AM [facility] FPSOrwxcl950(L)136 - 145 mmol/L LAB CHEMISTRY METHOD 01/13/2025 6:28 AM [facility] LABPotassium3.63.5 - 5.3 mmol/L LAB CHEMISTRY METHOD 01/13/2025 6:28 AM [facility] PBOPoqenpzh5729 - 107 mmol/L LAB CHEMISTRY METHOD 01/13/2025 6:28 AM [facility] ZUQSmdemknijvq0346 - 32 mmol/L LAB CHEMISTRY METHOD 01/13/2025 6:28 AM [facility] LABAnion Ofj6642 - 20 mmol/L LAB CHEMISTRY METHOD 01/13/2025 6:28 AM [facility] LABUrea Ccwslsnp60 - 23 mg/dL LAB CHEMISTRY METHOD 01/13/2025 6:28 AM [facility] LABCreatinine0.44(L)0.50 - 1.05 mg/dL LAB CHEMISTRY METHOD 01/13/2025 6:28 AM [facility] LABeGFR>90>60 mL/min/1.73m*2 LAB CHEMISTRY METHOD 01/13/2025 6:28 AM [facility] LABComment: Calculations of estimated GFR are performed using the 2020 CKD-EPI Study Refit equation without therace variable for the IDMS-Traceable creatinine methods. https://jasn.asnjournals.org/content///ASN.5537370587 Calcium8.2(L)8.6 - 10.3 mg/dL LAB CHEMISTRY METHOD 01/13/2025 6:28 AM [facility] LABSpecimen (Source)Anatomical Location / LateralityCollection Method / VolumeCollection TimeReceived TimeBlood Venous blood specimen / UnknownVenipuncture / Kgmucfr3201/13/2025 5:23 AM EDT 01/13/2025 5:54 AM EDT Narrative Authorizing ProviderResult TypeResult StatusTahere Halie Max MDEDWARDS COUNTY [facility] BLOOD ORDERABLESFinal ResultPerforming OrganizationAddressCity/State/ZIP CodePhone Number [facility] [address] [place] [address] * TRANSTHORACIC ECHO (TTE) COMPLETE WITH CONTRAST (01/09/2025 11:15 AM EDT) ComponentValueRef RangeTest MethodAnalysis TimePerformed AtPathologist SignatureAV mn liro6hsAiKHUBNMS pk vel1.39m/sSYNGOLV Biplane EF30%SYNGOLVOT diam1.87cmSYNGOMV E/A ratio1.21SYNGOTricuspid annular plane systolic excursion 2.2cmSYNGOLA vol index A/L35.3ml/t3EUHUXQE EF35%SYNGORV free wall pk S'10.80 cm/fDYVGHXWKZ27.3ieZxJQACPVOXNf9.89cmSYNGOAortic Valve Area by Continuity of Peak Velocity2.69ls4BAAREBT pk vyhr0vaAfFZNDDMazbkr Valve Area by Continuity of VTI2.16hx0QLTOLMX A4C EF30.9SYNGOSpecimen (Source)Anatomical Location / LateralityCollection Method / VolumeCollection TimeReceived Time01/09/2025 10:40 AM EDT Narrative [facility] - 01/10/2025 8:51 AM EDT ? [place] [address] TRANSTHORACIC ECHOCARDIOGRAM REPORT Patient Name: ? KING JOSH ?Reading Physician: ?[id number] Augustus ? Ebenezerante DO Study Date: ? 01/09/2025 ?Ordering Provider: ?[id number] DANI M ? DAR MRN/PID: ?[id number] ? Fellow: Accession#: ? [id number] ? Nurse: Date of /Age: ??1960 / 64 years ??Embroidery Machine Operator: ?Gege Balbuena ? RDCS Gender Assigned at ??F ?Additional Staff: : Height: ? 157.48 cm ?Admit Date: ? 01/08/2025 Weight: ? 67.59 kg ? Admission Status: ? Inpatient - ? Routine BSA / BMI: ?1.69 m2 / 27.25 ?Department Location: ??[facility] ?kg/m2 Blood Pressure: 101 /55 mmHg Study Type: ?TRANSTHORACIC ECHO (TTE) COMPLETE Diagnosis/ICD: Ventricular tachycardia, other-I47.29 Indication: ?Multiple ICD firings CPT Codes: ? Echo Complete w Full Doppler-[id number] Patient History: Pacer/Defib: ? AICD Pertinent History: HTN, Hyperlipidemia, CHF, Cardiomyopathy, A-Fib, COPD, PE and ? VTACH. Study Detail: The following Echo studies were performed: 2D, M-Mode, Doppler and ?color flow. Technically challenging study due to prominent lung ?artifact. Definity used as a contrast agent for endocardial border ?definition. Total contrast used for this procedure was 3 mL via IV ?push. The patient was awake. PHYSICIAN INTERPRETATION: Left [...] normal. There is no indication of pulmonic valveregurgitation. Pericardium: Trivial pericardial effusion. Aorta: The aortic [...] pulmonary arteries. QUANTITATIVE DATA SUMMARY: 2D MEASUREMENTS: ? Normal Ranges: Ao Root d: ? 2.63 cm ? (2.0-3.7cm) LAs: ? 4.07 cm ? (2.7-4.0cm) IVSd: ?1.06 cm ? (0.6-1.1cm) LVPWd: ? 0.62 cm ? (0.6-1.1cm) LVIDd: ? 4.89 cm ? (3.9-5.9cm) LVIDs: ? 4.22 cm LV Mass Index: ?? 82.8 g/m2 LVEDV Index: ? 76.79 ml/m2 LV % FS ?13.7 % LEFT ATRIUM: ?Normal Ranges: LA Vol A4C: ?58.4 ml ?(22+/-6mL/m2) LA Vol A2C: ?55.0 ml LA Vol BP: ? 59.6 ml LA Vol Index A4C: ??34.6ml/m2 LA Vol Index A2C: ??32.6 ml/m2 LA Vol Index BP: ?? 35.3 ml/m2 LA Area A4C: ? 20.8 cm2 LA Area A2C: ? 19.2 cm2 LA Major Macdoel A4C: 6.3 cm LA Major Macdoel A2C: 5.7 cm LA Volume Index: ?? 33.4 ml/m2 RIGHT ATRIUM: ? Normal Ranges: RA Vol A4C: ?32.8 ml ?(8.3-19.5ml) RA Vol Index A4C: ??19.4 ml/m2 RA Area A4C: ? 13.1 cm2 RA Major Macdoel A4C: 4.4 cm LV SYSTOLIC FUNCTION: ? Normal Ranges: EF-A4C View: 31 % (>=55%) EF-A2C View: ?33 % EF-Biplane: ? 30 % EF-Visual: ?35 % LV EF Reported: 35 % LV DIASTOLIC FUNCTION: ? Normal Ranges: MV Peak E: ? 1.20 m/s ??(0.7-1.2 m/s) MV Peak A: ? 1.00 m/s ??(0.42-0.7 m/s) E/A Ratio: ? 1.21 ?(1.0-2.2) MV e' 0.080 m/s (>8.0) MV lateral e' ?0.09 m/s MV medial e' ? 0.07 m/s E/e' Ratio: 14.91 (<8.0) MITRAL VALVE: ?Normal Ranges: MV DT: ?281 msec (150-240msec) AORTIC VALVE: ? Normal Ranges: AoV Vmax: 1.39 m/s (<=1.7m/s) AoV Peak P.7 mmHg (<20mmHg) AoV Mean PG: ? 4.0 mmHg (1.7-11.5mmHg) LVOT Max Al: 1.15 m/s (<=1.1m/s) AoV VTI: ? 29.00 cm (18-25cm) LVOT VTI: ?23.60 cm LVOT Diameter: ? 1.87 cm ??(1.8-2.4cm) AoV Area, VTI: ? 2.24 cm2 (2.5-5.5cm2) AoV Area,Vmax: ? 2.27 cm2 (2.5-4.5cm2) AoV Dimensionless Index: 0.81 RIGHT VENTRICLE: RV Basal 2.99 cm RV Mid ?? 2.36 cm RV Major 7.4 cm TAPSE: ?? 22.0 mm RV s' ?0.11 m/s TRICUSPID VALVE/RVSP: ?Normal Ranges: Peak TR Velocity: ? 2.89 m/s RV Syst Pressure: 36 mmHg (< 30mmHg) IVC Diam: ? 1.18 cm PULMONIC VALVE: ?Normal Ranges: PV Accel Time: 129 msec (>120ms) PV Max Al: ? 1.0 m/s ??(0.6-0.9m/s) PV Max PG: ?3.9 mmHg [id number] Augustus Issa DO Electronically signed on 01/10/2025 at 8:51:17 AM Wall Scoring Final Procedure Note Augustus Issa DO - 01/10/2025 [place] [address] TRANSTHORACIC ECHOCARDIOGRAM REPORT Patient Name: KING Gregory Physician: [id number] Negrete Study Date: 01/09/2025 Ordering Provider: [id number] DODGE MRN/PID: [id number] Fellow: Nurse: Date of /Age: 1 1960 / 64 years Embroidery Machine Operator: Yana MURPHY Gender Assigned at F Additional Staff: : Height: 157.48 cm Admit Date: 01/08/2025 Weight: 67.59 kg Admission Status: Inpatient- Routine BSA / BMI: 1.69 m2 / 27.25 Department Location: [facility] kg/m2 Blood Pressure: 101 /55 mmHg Study Type: TRANSTHORACIC ECHO (TTE) COMPLETE Diagnosis/ICD: Ventricular tachycardia, other-I47.29 Indication: Multiple ICD firings CPT Codes: Echo Complete w Full Doppler-38514 Patient History: Pacer/Defib: AICD Pertinent History: HTN, [...] LA Area A2C: 19.2 cm2 LA Major Macdoel A4C: 6.3 cm LA Major Macdoel A2C: 5.7 cm LA Volume Index: 33.4 ml/m2 RIGHT ATRIUM: Normal Ranges: RA Vol A4C: 32.8 ml (8.3-19.5ml) RA Vol Index A4C: 19.4 ml/m2 RA Area A4C: 13.1 cm2 RA Major Macdoel A4C: 4.4 cm LV SYSTOLIC FUNCTION: Normal [...] 1.0 m/s (0.6-0.9m/s) PV Max P.9 mmHg [id number] Augustus Issa DO Electronically signed on 01/10/2025 at 8:51:17 AM Wall Scoring Final Authorizing ProviderResult TypeResult StatusSrinivasa Michelle MDCV ECHO PROCEDURESFinal ResultPerforming OrganizationAddressCity/State/ZIP CodePhone Number [facility] * TSH with reflex to Free T4 if abnormal (01/08/2025 7:21 PM EDT)ComponentValue Ref RangeTest MethodAnalysis TimePerformed AtPathologist SignatureThyroid Stimulating Hormone2.120.44 - 3.98 mIU/L LAB IMMUNOASSAY METHOD 01/08/2025 8:19 PM [facility] LABSpecimen (Source)Anatomical Location / LateralityCollection Method / VolumeCollection TimeReceived TimeBlood Venous blood specimen / UnknownVenipuncture / Cnamyxt9701/08/2025 7:21 PM EDT 01/08/2025 7:26 PM EDT [facility] - 01/08/2025 8:19 PM EDT TSH testing is performed using different testing methodology at [facility] than at other [facility]. Direct result comparisons should only be made within the same method. Authorizing ProviderResult TypeResult StatusJulia ZAVALETA-CLAB BLOOD ORDERABLESFinal ResultPerforming OrganizationAddressCity/State/ZIP CodePhone Number [facility] [address] [place] [address] * Hemoglobin A1c (01/08/2025 7:21 PM EDT)ComponentValueRef RangeTest Method Analysis TimePerformed AtPathologist SignatureHemoglobin A1C5.5See comment % 01/08/2025 11:45 PM EDTJE[facility] LABEstimated Average Nyapkmi378Xgu Established mg/dL01/08/2025 11:45 PM EDTJEFFERSON [facility] LABSpecimen (Source)Anatomical Location / LateralityCollection Method / VolumeCollection TimeReceived TimeBloodVenous blood specimen / UnknownVenipuncture / Nluqrzi4801/08/2025 7:21 PM EDT01/08/2025 7:26 PM EDT Narrative [facility] - 01/08/2025 11:45 PM EDT Diagnosis of Diabetes-Adults Non-Diabetic: < or = 5.6% Increased risk for developing diabetes: 5.7-6.4% Diagnostic of diabetes: > or = 6.5% Authorizing ProviderResult TypeResult StatusSarapradeep ZAVALETA-JUAN J BLOOD ORDERABLESFinal ResultPerforming OrganizationAddressCity/State/ZIP CodePhone Number [facility] [address] [address] from Last 3 Months or Most Recently Relevant to Health Maintenance Insurance Advance Directives For more information, please contact: [phone] (Available ) * Full Code (Latest Code Status on File) Date ActivatedDate InactivatedComments11/26/2023 6:41 AMQuestionAnswerComments Plan of Care:* Code Status Discussion Not Completed Decision Maker:* Provider Rationale:* Patient condition does not warrant discussion Care Teams Team MemberRelationshipSpecialtyStart DateEnd Date Conchita Aden MD [address] [place] [address] [place] [address] PCP - GeneralFamily Medicine11/11/24 June Preston MD [address] [place] [address] CardiologistCardiology-Clinical Cardiac Dtbtkialblvctnjet18/12/24
--- OUTSIDE RECORDS SUMMARY | 2025-10-03 15:20 | XMS_ITS | Clinical Summary ---
Author Organization [facility] Address [address] [place] [id number] Care Team Providers Care Counter Sales Representative Name Role Phone Unavailable Primary Care Provider Unavailabl e Allergies No known active allergies Medications MedicationSigDispense QuantityRefillsLast FilledStart DateEnd DateStatus spironolactone (ALDACTONE) 25 mg tablet Take 25 mg by mouth once daily.Active citalopram (CELEXA) 40 mg tablet Take 40 mg by mouth once daily.Active clopidogrel (PLAVIX) 75 mg tablet Take 75 mg by mouth once daily.Active POTASSIUM CHLORIDE (KLOR-CON M20 ORAL) Take 20 mEq by mouth once daily.Active metoprolol succinate ER (TOPROL XL) 25 mg 24 hr tablet Take 12.5 mg by mouth twice daily.Active metFORMIN (GLUCOPHAGE) 500 mg tablet Take 500 mg by mouth twice daily with meals.Active lovastatin (MEVACOR) 20 mg tablet Take 20 mg by mouth daily at bedtime.Active QUEtiapine (SEROQUEL) 200 mg tablet Take 200 mg by mouth daily at bedtime.Active LORazepam (ATIVAN) 0.5 mg tab Take 0.5 mg by mouth twice daily as needed.Active solifenacin (VESICARE) 10 mg tablet Take 10 mg by mouth once daily.Active nitroglycerin sublingual (NITROQUICK) 0.4 mg SL tablet Dissolve 0.4 mg under the tongue every 5 minutes as needed.Active melatonin 3 mg Take 3 mg by mouth daily at bedtime.Active skin protective paste pste Apply 1 application to affected area twice daily. 250 g ctive aspirin 81 mg chewable tablet Take 1 tablet by mouth once daily. 30 tablet ctive oxyCODONE immediate release (PERCOLONE) 5 mg immediate release tablet Take 1-2 tablets by mouth every 3 hours as needed. 80 tablet ctive hydrocortisone (PROCTOCORT) 1 % crea 1 application by RECTAL route as needed.Active phenylephrine-cocoa butter (PREPARATION H,PE,CB,) 0.25-88.44 % supp by RECTAL route as needed.Active Active Problems ProblemNoted DateDiagnosed DatePostoperative ileus05/30/2015 Overview (05/30/2015): NG tube for bowel decompression, clamp trials completed with return of bowel function Elevated xatblhxg81/23/2015 Overview (05/30/2015): Cardiology consulted Postoperative pain05/23/2015 Overview (05/23/2015): INVESTMENT OFFICER pump and will transition to oral medication with the return of bowel function Mechanical venous thromboembolism (VTE) prophylaxis in place05/23/2015 Overview (05/23/2015): IPC stockings Other and unspecified rsvkyquglsqqqc75/22/2015 Overview (05/23/2015): Resume home medications CAD (coronary artery disease)05/23/2015 Overview (05/30/2015): S/p stent placement. Will resume home plavix dosing when surgically stable 05/29/2015: cardiac cath with stable CAD, no further stenting needs, continue home meds Type II or unspecified type diabetes mellitus without mention of complication, not stated as aequsxeehqua77/22/2015 Overview (05/23/2015): Use of sliding scale while inpatient, glucose monitoring ACHS, to resume home metformin upon DC Unspecified vascular insufficiency of djwalthyj69/08/2015 Resolved Problems ProblemNoted DateDiagnosed DateResolved DateEssential hypertension, malignant Overview (05/23/2015): Resume home medication, monitor with routine vitals Immunizations ImmunizationAdministration DatesNext Duepneumococcal polysaccharide (PPV23) vaccine, 23 valent (PNEUMOVAX 23)11/09/2006 Family History Medical HistoryRelationCommentsno colon disease [Other]OtherRelationStatus CommentsOther Social History Tobacco UseTypesPacks/DayYears UsedDateSmoking Tobacco: Every DayCigarettes0.230 Smokeless Tobacco: Never Comments:about 4 cigarettes a day and a vapor cigarette Alcohol UseStandard Drinks/WeekCommentsNo0 (1 standard drink = 0.6 oz pure alcohol)CommentsNoSex and Gender InformationValueDate RecordedSex Assigned at BirthNot on fileLegal PbdFyxqxt10/27/2015 10:50 AM EDTGender IdentityNot on fileSexual OrientationNot on fileOccupationIndustryJob Start Date Job End DateDisabilityNot on fileNot on fileNot on file Last Filed Vital Signs Vital SignReadingTime TakenCommentsBlood Ngxslalu529/7407 3:00 PM EDT Vwpkh00221/30/2015 3:00 PM DASGtpshbhzspy40.4 ??C (99.3 ??F)05/31/2015 3:00 PM EDTRespiratory Tiey766405/31/2015 3:00 PM EDTOxygen Twdscqhjuj06%05/31/2015 3:00 PM EDTInhaled Oxygen Concentration--Sibkiq52.7 kg (169 lb)08/15/2015 2:57 PM EDT Lladrt129.5 cm (5' 2 )08/15/2015 2:57 PM EDTBody Mass Index30.9108/15/2015 2:57 PM EDT Plan of Treatment DateTypeDepartmentCare Team (Latest Contact Info)Jewuznpijgr18/28/2026 1:00 PM ESTOffice Visit Neurology [address] [place] [address] Nay Espitia MD [address] [facility] [place] [address] Refractory restless leg syndrome, tried and failed multiple medications 11/29/2025 3:00 PM ESTOffice Visit Neurology [address] [place] [address] Alexandr Wood MD, PhD [address] [phone] Dizziness and balance issuesHealth MaintenanceDue DateLast DoneCommentsAnxiety Stzodxyby30/07/1979Depression Bnleyhhms81/07/1979HIV Txthrrgsj30/07/1979 Hepatitis C Uxxsybecb82/07/1979DTaP,Tdap,Td Vaccine (1 - Tdap)1979Cervical Cancer Mlrvkcjxw66/07/1982Mammogram Uouwierob53/07/2001CT Colonography 2005Cologuard (FIT-DNA)11/08/20052411Fslvqocjbib99/07/2006Colorectal Cancer Idxbmtytb60/07/2006Fecal Occult Blood11/08/20050655Ycbxswptglbxx91/07/2006 Pneumococcal Vaccine: 50+ (2 of 2 - PCV)Shingrix Vaccine (1 of 2)2010Diabetes Qhnwzkbji98/30/, 05/30/2015, 05/28/2015, Additional history existsLipid Vyfzbfdmy34/15/Covid-19 Vaccine (1 - 2024- season)2025Influenza Vaccine (#1)2025RSV Vaccine (1 - 1- dose 75+ series)2035 Procedures Procedure NamePriorityDate/TimeAssociated DiagnosisCommentsBASIC METABOLIC PANEL STAT05/31/2015 12:41 AM EDT LIPID PANEL, FMRDMSJCbwzvlz21/15/2015 10:42 AM EDT 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) from Last 3 Months or Most Recently Relevant to Health Maintenance Results * (ABNORMAL) BASIC METABOLIC PNL (05/31/2015 12:41 AM EDT)ComponentValueRef RangeTest MethodAnalysis TimePerformed AtPathologist MlhmyejvyDhjcqwh024(H)65 - 100 mg/dL05/31/2015 1:52 AM [facility]TC[facility] LAB[facility]ATORYBUN3(L)8 - 25 mg/dL05/31/2015 1:52 AM EDTCLEVEL[facility] LABORATORYCreatinine0.750.70 - 1.40 mg/dL05/31/2015 1:52 AM [facility] GRFFKZYMFHUpigty018 132 - 148 mmol/L05/31/2015 1:52 AM [facility] Potassium4.33.5 - 5.0 mmol/L05/31/2015 1:52 AM [facility] HTYNVNSOANWsieisqk89230 - 110 mmol/L05/31/2015 1:52 AM [facility] IBBSSCWBGITF29754 - 32 mmol/L05/31/2015 1:52 AM [facility] LABORATORYAnion Ehz125 - 15 mmol/L05/31/2015 1:52 AM [facility] LABORATORYCalcium8.68.5 - 10.5 mg/dL05/31/2015 1:52 AM [facility] LABORATORYeGFR->6007 1:52 AM [facility] LABORATORYeGFR-All Other Races>60.05/31/2015 1:52 AM [facility] LABORATORYComment: eGFR (Estimated GFR) Units of measure: mL/min/1.73 [...] eGFR may not accurately reflect actual GFR. Specimen (Source)Anatomical Location / LateralityCollection Method / Volume Collection TimeReceived TimeBlood specimen (specimen)BLOOD SPECIMEN / Unknown 05/31/2015 12:41 AM EDT05/31/2015 12:42 AM EDT Narrative Authorizing ProviderResult TypeResult StatusIan C (Hist) LaveryLABORATORYFinal ResultPerforming OrganizationAddressCity/State/ZIP CodePhone Number [facility] [address] [place] [address] * (ABNORMAL) LIPID PANEL BASIC (05/16/2015 10:42 AM EDT)ComponentValueRef Range Test MethodAnalysis TimePerformed AtPathologist DhmkyutzrEeaqafuhqvhg58693 - 149 mg/dL05/16/2015 6:55 PM [facility] LABORATORYCholesterol, Snsau471660 - 199 mg/dL05/16/2015 6:55 PM [facility] HDL Luejmrwscod00>55 mg/dL05/16/2015 6:55 PM [facility] LABORATORYVLDL Hwquudvdxie347 - 40 mg/dL05/16/2015 6:55 PM [facility] LABORATORYLDL Cholesterol, Crmgeqpxsu26(L)60 - 129 mg/dL05/16/2015 6:55 PM [facility] LABORATORYFasting YqblSlijmhdeie23/15/2015 2:56 PM [facility]DSUM[facility] LABORATORYTC:HDL Ratio2.181.00 - 5.0007 6:55 PM [facility] LABORATORYLDL:HDL Ratio0.820.50 - 3.55005/16/2015 6:55 PM [facility] LABORATORYNon HDL Vuovpavwsft49(L)90 - 159 mg/dL05/16/2015 6:55 PM [facility] MAIN LABORATORYSpecimen (Source) Anatomical Location / LateralityCollection Method / VolumeCollection Time Received TimeBlood specimen (specimen)BLOOD SPECIMEN / Wzyjaae4005/16/2015 10:42 AM EDT05/16/2015 10:46 AM EDT Narrative Authorizing ProviderResult TypeResult StatusSung Pratik Conde MDLABORATORYFinal ResultPerforming OrganizationAddressCity/State/ZIP CodePhone Number [facility] [address] [place] [address] from Last 3 Months or Most Recently Relevant to Health Maintenance Insurance * Guarantor: Latanya Martinez AAccount TypeRelation to PatientDate of BirthPhone Billing AddressPersonal/QtqnjzNjwf[birth year][address] [address]
--- OUTSIDE RECORDS SUMMARY | 2025-10-03 15:20 | XMS_ITS | Clinical Summary ---
Author Organization [facility] tem Address [id number] [place] [address] Care Team Providers Care Network Systems Integrator Name Role Phone Unavailable Primary Care Provider Unavailabl e Allergies No known active allergies Medications MedicationSigDispense QuantityRefillsLast FilledStart DateEnd DateStatus rosuvastatin (CRESTOR) 20 mg tablet Take 1 tablet (20 mg total) by mouth in the morning.6Active rOPINIRole (REQUIP) 2 mg tablet TAKE 1 TABLET BY MOUTH DAILY AT BEDTIME FOR 90 DAYS. ADMINISTER 1-3 HOURS BEFORE XDOJUPT59/07/2025Active ranolazine (RANEXA) 500 mg 12 hr tablet Take 1 tablet (500 mg total) by mouth in the morning and 1 tablet (500 mg total) before bedtime.Active QUEtiapine (SEROquel) 200 mg tablet Take 1 tablet (200 mg total) by mouth.4Active oxybutynin XL (DITROPAN-XL) 10 mg 24 hr tablet Take 1 tablet (10 mg total) by mouth.10/20/2024ctive nitroglycerin (NITROSTAT) 0.[address] 1 tablet (0.4 mg total) under the tongue.Active metoprolol succinate XL (TOPROL XL) 25 mg 24 hr tablet Take 2 tablets (50 mg total) by mouth in the morning.5Active melatonin (CIRCADIN) 5 mg tablet Take 1 tablet (5 mg total) by mouth.Active meclizine (ANTIVERT) 25 mg tablet Take 1 tablet (25 mg total) by mouth Three times daily as needed.01/15/2024 Active lurasidone (LATUDA) 60 mg tablet tablet Take 1 tablet (60 mg total) by mouth in the morning.Active lansoprazole (PREVACID) 30 mg capsule Take 1 capsule (30 mg total) by mouth.Active INVOKANA 300 mg tablet Take 1 tablet (300 mg total) by mouth.ctive aspirin 81 mg Take 1 tablet (81 mg total) by mouth.ctive lisinopriL (PRINIVIL,ZESTRIL) 2.5 mg tablet Take 1 tablet (2.5 mg total) by mouth in the morning.Expired Active Problems ProblemNoted DateDiagnosed PlzyAmtkiflemqouspfzetsp74/29/2025Right ovarian cyst 11/29/2024erebral infarction due to embolism of left middle cerebral artery 04/25/2024ipolar 1 mjmetzuo58/29/2023egeneration of lumbar intervertebral disc 09/30/2023olyneuropathy due to type 2 diabetes xeubcguq19/29/2023 Atherosclerosis of [place] coronary artery of [place] heart without angina rzikoiao15/27/2023hronic obstructive pulmonary qekibbt0807/29/2023hronic systolic CHF (congestive heart failure)07/29/2023urrent every day smoker 07/29/2023Essential uzqcrfzqgxlj56/27/2023Intermittent ftpafkqfseze95/27/2023 Pulmonary bogdbhnc15/27/2023Type 2 diabetes /27/2023astroesophageal reflux disease without ftsezpaawxd35/24/2022Vascular insufficiency of intestine 04/09/2015 Social History Tobacco UseTypesPacks/DayYears UsedDateSmoking Tobacco: Every DayCigarettes Smokeless Tobacco: Never Tobacco Cessation:Ready to Q uit: Not Asked; Counseling Given: Not Answered Alcohol UseStandard Drinks/WeekCommentsNot Currently0 (1 standard drink = 0.6 oz pure alcohol)CommentsUnknownSex and Gender InformationValueDate Recorded Sex Assigned at BirthNot on fileLegal PtkEndwca16/22/2025 11:37 AM ESTGender IdentityNot on fileSexual OrientationNot on file Last Filed Vital Signs Vital SignReadingTime TakenCommentsBlood Xtigeqkg783/68011/29/2024 2:50 PM EST Ifxok231311/29/2024 2:50 PM ESTTemperature--Respiratory Grqu643511/29/2024 2:50 PM ESTOxygen Ksbcgmewpc02%11/29/2024 2:50 PM ESTInhaled Oxygen Concentration-- Gsmqjj39 kg (147 lb 12.8 oz)11/29/2024 2:34 PM ESTHeight--Body Mass Index-- Plan of Treatment Health MaintenanceDue DateLast DoneCommentsDiabetic Ophthalmology Exam1960 Tobacco Eirreymtvt30/07/1961epression Dwtgzudhl37/07/1973Adult BMI Screening 1978Diabetic Foot Exam1978RSV ( or age 60+ yrs) (1 - Risk 60-74 years 1-dose series)2020OVID-19 Vaccine ( season) /, 02/19/2021Influenza Xxdbfvb81/, 01/22/2021, 08/02/2019, Additional history existsStatin Use: Cardiovascular 6011/29/2024Statin Use: Etpoljkz75/28/48523911/29/2024Tobacco Screening Pap Smear, 11/29/2024DTaP,Tdap and Td Vaccines (4 - Td or Tdap)/07/2021, 04/16/2020, 08/02/2019Zoster (Shingles) HjjdrudFqmazqkqy84/15/2020, 08/03/2019 Medical Devices Not on file Procedures Procedure NamePriorityDate/TimeAssociated DiagnosisCommentsHIGH RISK HPV W/RAMON Vjgqiit5311/29/2024 3:43 AM EST Encounter for screening for malignant neoplasm of cervix from Last 3 Months or Most Recently Relevant to Health Maintenance Results * High risk HPV w/ramon (11/29/2024 3:43 AM EST)ComponentValueRef RangeTest MethodAnalysis TimePerformed AtPathologist SignatureHpv specimen typeThinPrep 12/01/2024 3:43 AM ESTSUNQUESTHpv 16NegativeNegative^Oxioitla97/30/2025 2:25 PM [facility] LABHpv 18NegativeNegative^Jwhpbdmn06/30/2025 2:25 PM [facility] LABOther high risk hpvNegative Negative^Nmrjvptf56/30/2025 2:25 PM [facility] LABComment: HPV types 31,33,35,39,45,52,56,58,59,66 and 68 DNA were undetectable. Specimen (Source)Anatomical Location / LateralityCollection Method / Volume Collection TimeReceived DmezITFMS75/28/2025 3:43 AM EST12/01/2024 3:44 AM EST Narrative Authorizing ProviderResult TypeResult StatusAleia Bridgett Mcallister MDLAB BLOOD ORDERABLES Final ResultPerforming OrganizationAddressCity/State/ZIP CodePhone Number [facility] [address] [facility] [address] [facility], [address] [place] [address] from Last 3 Months or Most Recently Relevant to Health Maintenance Insurance
--- OUTSIDE RECORDS SUMMARY | 2025-10-03 15:20 | XMS_ITS | Clinical Summary ---
Author Organization [facility] Address [address] [place] [address] Care Team Providers Care Imcu Specialist Name Role Phone Conchita Aden MD Primary Care Provider [phone] Allergies No known active allergies Medications MedicationSigDispense QuantityRefillsLast FilledStart DateEnd DateStatus acetaminophen-codeine (Tylenol w/ Codeine #3) 300-30 MG tablet Take 1 tablet by mouth every 4 (four) hours if needed for moderate pain 5Active amiodarone (Pacerone) 200 MG tablet Take 200 mg by mouth in the morning.09/02/2024ctive Invokana 300 MG Take 300 mg by mouth in the morning. Take before meals.Active lansoprazole (Prevacid) [address] capsule Take 30 mg by mouth in the morning. Take before meals.Active lisinopril 2.5 MG tablet Take 2.5 mg by mouth in the morning.09/27/2024ctive lurasidone (Latuda) 60 MG tablet Take 60 mg by mouth in the morning. Take with meals.Active meclizine (Antivert) 25 MG tablet Take 25 mg by mouth 3 (three) times a day as needed for ohvavwnwu99/15/2024 Active melatonin 5 MG tablet Take 5 mg by mouth 1 (one) time each day at the same timeActive mexiletine (Mexitil) 150 MG capsule Take 150 mg by mouth in the morning and 150 mg at noon and 150 mg in the evening.09/02/2024ctive nitroglycerin (Nitrostat) 0.[address] 0.4 mg under the tongue every 5 (five) minutes if needed for chest pain Active QUEtiapine (SEROquel) 200 MG tablet Take 200 mg by mouth 1 (one) time each day at the same time4Active ranolazine (Ranexa) 500 MG 12 hr tablet Take 500 mg by mouth in the morning and 500 mg before bedtime.Active spironolactone (Aldactone) 25 MG tablet Take 25 mg by mouth 1 (one) timeActive warfarin (Coumadin) 2 MG tablet Take 2 mg by mouth 1 (one) time each day5Active oxybutynin XL (Ditropan-XL) 10 MG 24 hr tablet Indications:Urge incontinence of urineTAKE 1 TABLET BY MOUTH EVERY DAY 90 tablet 5Active Active Problems ProblemNoted DateDiagnosed DateOvarian mass5Cerebral infarction due to embolism of left middle cerebral xlzvpw3504/25/2024Urge incontinence of urine 09/30/2023Hypercholesterolemia Immunizations ImmunizationAdministration DatesNext DueHep A / Hep B004/16/2020Influenza, Otgkblhebsv28/01/2019,12/08/2016,09/24/2014,11/02/2009Influenza, injectable, MDCK, preservative free, qyprnjlcdjkr20/20/2021Influenza, injectable, quadrivalent, preservative free01/22/2021,09/14/2018,08/24/2017Pneumococcal Polysaccharide GULH5525,12/08/2016,11/09/2006Tdap06/10/2021,04/16/2020, 08/02/2019Zoster, Ipuvudjapnx57/15/2020,08/03/2019 Family History Medical HistoryRelationNameCommentsBipolar disorderOtherDiabetesOtherHeart diseaseOtherHypertensionOtherStrokeOtherRelationNameStatusCommentsOther Social History Tobacco UseTypesPacks/DayYears UsedDateSmoking Tobacco: Every DayCigarettes Tobacco Cessation:Ready to Q uit: Not Asked; Counseling Given: Not Answered CommentsNoSex and Gender InformationValueDate RecordedSex Assigned at BirthNot on fileLegal MacQksiqu65/15/2023 6:52 PM EDTGender IdentityNot on file Sexual OrientationNot on file Last Filed Vital Signs Vital SignReadingTime TakenCommentsBlood Tgkhiqeo469/6001/04/2025 10:55 AM EST Pulse--Flnnhttskon14.7 ??C (96.2 ??F)04/25/2024 3:55 AM EDTRespiratory Rate-- Oxygen Saturation--Inhaled Oxygen Concentration--Qyfnjk62.7 kg (151 lb 6.4 oz) 11/07/2024 10:55 AM ZKIFhbbpx537.5 cm (5' 2 )11/07/2024 10:55 AM ESTBody Mass Index27.69011/07/2024 10:55 AM EST Plan of Treatment Not on file Insurance Care Teams Team MemberRelationshipSpecialtyStart DateEnd Conchita Aden MD PCP - GeneralFamily Medicine11/07/24
[2025-10-03 15:53] LABS: Hematocrit 42.9 % (36.0-48.0); Hemoglobin 14.9 g/dL (12.0-16.0); Immature Granulocytes Abs Auto 0.01 10^3/uL (0.00-0.03); Immature Granulocytes Pct Auto 0.1 % (0.0-0.5); Lymphocytes Absolute Auto 2.4 10^3/uL (1.2-3.8); Mean Corpuscular HGB Conc 34.7 g/dL (29.9-35.2); Mean Corpuscular Hemoglobin 34.9 pg (26.7-34.0); Mean Corpuscular Volume 100.5 fL (81.0-99.0); Platelet Count 172 10^3/uL (150-450); Red Blood Count 4.27 10^6/uL (4.20-5.40); Reticulocyte Pct Auto 2.11 % (0.60-3.10); White Blood Count 8.1 10^3/uL (4.0-11.0)
[2025-10-03 16:16] LABS: Alanine Aminotransferase 100 U/L (14-59); Albumin Globulin Ratio 0.9; Albumin Level 3.3 g/dL (3.4-5.0); Alkaline Phosphatase 79 U/L (46-116); Anion Gap 15.1; Aspartate Amino Transferase 89 U/L (15-37); Blood Urea Nitrogen 11.0 mg/dL (7.0-18.0); Calcium 9.4 mg/dL (8.5-10.1); Carbon Dioxide 24.4 mmol/L (21.0-32.0); Chloride 103 mmol/L (98-107); Estimated GFR (African America >60 (>=60 mL/min/1.73m^2); Estimated GFR (Non-African Ame >60 (>=60 mL/min/1.73m^2); Globulin 3.5 g/dL; Glucose 111 mg/dL (74-106); Potassium 4.5 mmol/L (3.5-5.1); Sodium 138 mmol/L (136-145); Total Protein 6.8 g/dL (6.4-8.2)
[2025-10-03 16:37] LABS: Folate 6.50 ng/mL (8.60-58.90)
[2025-10-05 04:08] LABS: Vitamin B12 527 pg/mL (232-1245)
== END 2025-10-03 15:07 | disposition home or self-care (01) ==
PROVIDERS: PCP Nurse Practitioner Family; Visit Provider Internal Medicine
DX: R19.7 Diarrhea, unspecified (principal)
CPT/HCPCS: 36415; 80053; 82607; 82746; 85025; 85045

== ENCOUNTER 2025-10-10 14:29 | Emergency (ER) | payer MEDICARE, MEDICAID, SELFPAY ==
[2025-10-10] VITALS (8 sets, daily range): BP systolic 95–124; BP diastolic 69–77; PULSE 80; TEMP 36.9; O2SAT 95–98; BMI 26.3
--- NOTE | 2025-10-10 14:48 | ECG_ITS ---
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 Measurements Intervals [place] Rate: 80 P: 23 NE: 214 QRS: 3 QRSD: 94 T: 90 QT: 396 QTc: 432 Interpretive Statements 14324 Electronic atrial pacemaker 3114 Cannot rule out anterior myocardial infarction, age undetermined 8102 Low QRS voltage in chest leads 9150 abnormal ECG Compared to ECG 04/22/2025 17:03:25 Low QRS voltage now present Ventricular-paced complex(es) or rhythm no longer present Myocardial infarct finding still present Electronically Signed On 10-10-2025 20:03:10 EST by CROW MORRISON M.D.
[2025-10-10] MEDS: PROCHLORPERAZINE 10 MG/2 ML VIAL IV (15:14)
[2025-10-10 15:23] LABS: Hematocrit 42.5 % (36.0-48.0); Hemoglobin 14.7 g/dL (12.0-16.0); Immature Granulocytes Abs Auto 0.02 10^3/uL (0.00-0.03); Immature Granulocytes Pct Auto 0.2 % (0.0-0.5); Lymphocytes Absolute Auto 2.2 10^3/uL (1.2-3.8); Mean Corpuscular HGB Conc 34.6 g/dL (29.9-35.2); Mean Corpuscular Hemoglobin 34.9 pg (26.7-34.0); Mean Corpuscular Volume 101.0 fL (81.0-99.0); Platelet Count 188 10^3/uL (150-450); Red Blood Count 4.21 10^6/uL (4.20-5.40); White Blood Count 8.1 10^3/uL (4.0-11.0)
--- NOTE | 2025-10-10 15:24 | ED.GENADUL1 ---
HPI HPI - General Adult General Chief complaint: GI Bleed Stated complaint: RECTAL BLEED Time Seen by Provider: 10/10/25 14:34 Source: patient Mode of arrival: walk-in Limitations: no limitations History of Present Illness HPI narrative: The patient is a 64 years old female who has been getting manage as outpatient for anemia with no source of bleeding found in addition to some nausea and vomiting that sometimes gets worse, when grabbing her symptoms the patient did not have any nausea or vomiting at the moment but she had that before arrival and she does not have any blood in stool no diarrhea at her baseline as she have a history of bowel perforation that ended up with her having a partial ileectomy The patient denies any other concerns at the moment Related Data Home Medications ?Medication ?Instructions ?Recorded ?Confirmed amiodarone 200 mg tablet 200 mg PO Q24H 10/22/24 10/10/25 lansoprazole 30 mg capsule,delayed 30 mg PO .ACB 10/22/24 04/22/25 release meclizine 25 mg tablet 25 mg PO BID PRN dizziness 10/22/24 10/10/25 melatonin 5 mg tablet 5 mg PO DAILY 10/22/24 10/10/25 metoprolol succinate 25 mg 25 mg PO DAILY 10/22/24 10/10/25 tablet,extended release 24 hr ranolazine 500 mg tablet,extended 500 mg PO Q12H 10/22/24 10/10/25 release,12 hr rosuvastatin 10 mg tablet 20 mg PO DAILY 10/22/24 10/10/25 magnesium 200 mg tablet 200 mg PO BID 10/30/24 10/10/25 lisinopril 5 mg tablet 5 mg PO .QD 10/31/24 10/10/25 rivaroxaban 10 mg tablet (Xarelto) 10 mg PO Q24H 04/09/25 10/10/25 ropinirole 1 mg tablet 1 mg PO HS 04/09/25 10/10/25 sertraline 25 mg tablet 25 mg PO Q24H 04/09/25 10/10/25 spironolactone 25 mg tablet 25 mg PO .Q24 04/09/25 10/10/25 canagliflozin 300 mg tablet 300 mg PO DAILY 04/22/25 10/10/25 (Invokana) pantoprazole 40 mg tablet,delayed 40 mg PO DAILY 04/22/25 10/10/25 release quetiapine 200 mg tablet 200 mg PO DAILY 04/22/25 10/10/25 ropinirole 2 mg tablet 2 mg PO BEDTIME 04/22/25 10/10/25 ondansetron 4 mg disintegrating mg 10/10/25 tablet Held on 10/10/25. Instructions: Resume on 10/20/25. oxybutynin chloride 10 mg mg PO 10/10/25 tablet,extended release 24 hr Previous Rx's ?Medication ?Instructions ?Recorded promethazine 25 mg tablet 25 mg PO TID PRN nausea and 10/10/25 vomiting #20 tabs Allergies Allergy/AdvReac Type Severity Reaction Status Date / Time gabapentin AdvReac Dizziness Verified 10/10/25 14:32 pregabalin AdvReac dizziness Verified 10/10/25 14:32 Opioid HPI Opioid Management Most Recent Opioid Data: Last Pain Scale 8 Today, 14:41 Last Pain Intensity 0 10/31/24, 09:34 Last ORT Total Score 0 04/10/25, 21:58 Last ORT Risk Category Low Risk 04/10/25, 21:58 Review of Systems ROS Status of ROS 10 or more systems reviewed and unremarkable except as noted in history and below [facility] Medical History (Updated 10/10/25 @ 16:22 by Lyndsey Bhatt MD) GERD without esophagitis ?K21.9 - Gastro-esophageal reflux disease without esophagitis (ICD-10) Bulging lumbar disc ?M51.369 - Other intervertebral disc degeneration, lumbar region without mention of lumbar back pain or lower extremity pain (ICD-10) Restless leg syndrome ?G25.81 - Restless legs syndrome (ICD-10) Restless leg syndrome ?G25.81 - Restless legs syndrome (ICD-10) Pacemaker ?Z95.0 - Presence of cardiac pacemaker (ICD-10) Acute GI bleeding ?K92.2 - Gastrointestinal hemorrhage, unspecified (ICD-10) Elevated INR ?R79.1 - Abnormal coagulation profile (ICD-10) Pneumonia ?J18.9 - Pneumonia, unspecified organism (ICD-10) Dyspnea ?R06.00 - Dyspnea, unspecified (ICD-10) Dizziness ?R42 - Dizziness and giddiness (ICD-10) Diabetes ?E11.9 - Type 2 diabetes mellitus without complications (ICD-10) Bipolar 1 disorder, depressed ?F31.9 - Bipolar disorder, unspecified (ICD-10) HTN (hypertension) ?I10 - Essential (primary) hypertension (ICD-10) High cholesterol ?E78.00 - Pure hypercholesterolemia, unspecified (ICD-10) Afib ?I48.91 - Unspecified atrial fibrillation (ICD-10) Surgical History H/O tubal ligation ?Z98.51 - Tubal ligation status (ICD-10) Hx of cholecystectomy ?Z90.49 - Acquired absence of other specified parts of digestive tract (ICD-10) Status post other internal cardiac defibrillator procedure ?Z95.0 - Presence of cardiac pacemaker (ICD-10) History of bowel resection ?Z90.49 - Acquired absence of other specified parts of digestive tract (ICD-10) Family History Father Heart attack Brother Heart attack Sister Heart attack Diabetes Son Diabetes Social History Within the past year, how often did you have a drink containing alcohol: never Within the past year, how often did you have six or more drinks on one occasion: never Score interpretation: A score less than 3 is consistent with normal alcohol consumption. 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 General: Well-appearing and in no apparent distress. Skin: Warm, dry, no pallor noted. No rash. Head: Normocephalic, atraumatic. Neck: Supple, non-tender. Cardiovascular: Regular Rate and Rhythm without murmur, gallop or rub. Respiratory: No accessory muscle use or respiratory distress. Lungs are clear to auscultation, no wheezing, rales or rhonchi Chest Wall: no tenderness Back: No midline thoracic or lumbar vertebral tenderness. No CVA tenderness Musculoskeletal: normal ROM, no calf or popliteal tenderness, no lower extremity edema/swelling GI: Abdomen is soft, non-distended. Normal bowel sounds. No masses appreciated. No tenderness to palpation. No rebound, guarding, or rigidity noted. Neurological: A&O x4. No cranial nerve dysfunction observed. No truncal ataxia. Moves all extremities. Sensation intact. Psychiatric: Cooperative and interactive. Normal mood and affect. Constitutional Vital Signs, click to edit/add: Last Vital Signs Temp 98.4 F 10/10/25 14:33 Pulse 80 10/10/25 14:59 Resp 14 10/10/25 14:59 BP 100/74 10/10/25 15:25 Pulse Ox 95 10/10/25 15:30 Course Vital Signs Vital signs: Vital Signs Temperature 98.4 F 10/10/25 14:33 Pulse Rate 80 10/10/25 14:33 Respiratory Rate 18 10/10/25 14:33 Blood Pressure 124/77 10/10/25 14:33 Pulse Oximetry 98 10/10/25 14:33 Temperature 98.4 F 10/10/25 14:33 Pulse Rate 80 10/10/25 14:59 Respiratory Rate 14 10/10/25 14:59 Blood Pressure 100/74 10/10/25 15:25 Pulse Oximetry 95 10/10/25 15:30 Medical Decision Making MDM Narrative Medical decision making narrative: Patient EKG in the ER showing this rhythm with a heart rate of [address] elevation or depression Goal of this presentation with the patient to get some stronger nausea medication as the Zofran is not helping The patient CBC and chemistry showed no acute pathology and she was provided with Compazine after she was feeling much better Patient discharged home with Phenergan and she will stop the Zofran The patient to follow-up with the primary care within 2 to 3 days and to come back to the ER in case of any worsening of the current symptoms or any new symptoms or concerns Lab Data Labs: Lab Results 10/10/25 Range/Units 15:05 WBC 8.1 (4.0-11.0) 10^3/uL RBC 4.21 (4.20-5.40) 10^6/uL Hgb 14.7 (12.0-16.0) g/dL Hct 42.5 (36.0-48.0) % MCV 101.0 H (81.0-99.0) fL MCH 34.9 H (26.7-34.0) pg MCHC 34.6 (29.9-35.2) g/dL RDW 13.1 (11.0-15.0) % Plt Count 188 (150-450) 10^3/uL MPV 10.9 (9.5-13.5) fL Neut % (Auto) 63.6 (43.0-75.0) % Lymph % (Auto) 26.6 (20.5-60.0) % [place] % (Auto) 6.4 (1.7-12.0) % Eos % (Auto) 2.5 (0.9-7.0) % Baso % (Auto) 0.7 (0.2-2.0) % Neut # (Auto) 5.1 (1.4-6.5) 10^3/uL Lymph # (Auto) 2.2 (1.2-3.8) 10^3/uL [place] # (Auto) 0.5 (0.3-0.8) 10^3/uL Eos # (Auto) 0.2 (0.0-0.7) 10^3/uL Baso # (Auto) 0.1 (0.0-0.1) 10^3/uL Abs Immat Gran (auto) 0.02 (0.00-0.03) 10^3/uL Imm/Tot Granulo (auto) 0.2 (0.0-0.5) % PT 13.6 H (9.0-11.6) sec INR 1.32 Sodium 138 (136-145) mmol/L Potassium 4.4 (3.5-5.1) mmol/L Chloride 103 (98-107) mmol/L Carbon Dioxide 24.3 (21.0-32.0) mmol/L Anion Gap 15.1 BUN 10.0 (7.0-18.0) mg/dL Creatinine 0.96 (0.55-1.02) mg/dL Est GFR ( Amer) >60 (>=60 mL/min/1.73m^2) Est GFR (Non-Af Amer) 59 L (>=60 mL/min/1.73m^2) BUN/Creatinine Ratio 10.4 Glucose 132 H (74-106) mg/dL Calcium 9.1 (8.5-10.1) mg/dL Total Bilirubin 0.2 (0.2-1.0) mg/dL AST 94 H (15-37) U/L ALT 107 H (14-59) U/L Alkaline Phosphatase 81 (46-116) U/L Troponin I High Sens 10.2 (4.0-51.3) pg/mL Total Protein 6.7 (6.4-8.2) g/dL Albumin 3.1 L (3.4-5.0) g/dL Globulin 3.6 g/dL Albumin/Globulin Ratio 0.9 Discharge Plan Discharge Chief Complaint: GI Bleed Clinical Impression: Gastritis, Nausea & vomiting Patient Disposition: Home, Self-Care Time of Disposition Decision: 16:22 Condition: Good Prescriptions / Home Meds: New promethazine 25 mg tablet 25 mg PO TID PRN (Reason: nausea and vomiting) Qty: 20 0RF Held ondansetron 4 mg tablet,disintegrating Hold Instructions: Resume on 10/20/25. No Action Xarelto 10 mg tablet 10 mg PO Q24H ropinirole 1 mg tablet 1 mg PO HS spironolactone 25 mg tablet 25 mg PO .Q24 sertraline 25 mg tablet 25 mg PO Q24H Invokana 300 mg tablet 300 mg PO DAILY pantoprazole 40 mg tablet,delayed release (DR/EC) 40 mg PO DAILY quetiapine 200 mg tablet 200 mg PO DAILY ropinirole 2 mg tablet 2 mg PO BEDTIME amiodarone 200 mg tablet 200 mg PO Q24H lansoprazole 30 mg capsule,delayed release(DR/EC) 30 mg PO .ACB meclizine 25 mg tablet 25 mg PO BID PRN (Reason: dizziness) melatonin 5 mg tablet 5 mg PO DAILY metoprolol succinate 25 mg tablet extended release 24 hr 25 mg PO DAILY ranolazine 500 mg tablet extended release 12 hr 500 mg PO Q12H rosuvastatin 10 mg tablet 20 mg PO DAILY magnesium 200 mg tablet 200 mg PO BID lisinopril 5 mg tablet 5 mg PO .QD oxybutynin chloride 10 mg tablet extended release 24hr PO Print Language: Thai Instructions: Diet for Stomach Ulcers and Gastritis (ED), Acute Nausea and Vomiting (DC) Referrals: JOVANI HANSON [Primary Care Provider, Unknown] - 1 week
[2025-10-10 15:31] LABS: INR 1.32; Prothrombin Time 13.6 sec (9.0-11.6)
[2025-10-10 15:36] LABS: Alanine Aminotransferase 107 U/L (14-59); Albumin Globulin Ratio 0.9; Albumin Level 3.1 g/dL (3.4-5.0); Alkaline Phosphatase 81 U/L (46-116); Anion Gap 15.1; Aspartate Amino Transferase 94 U/L (15-37); Blood Urea Nitrogen 10.0 mg/dL (7.0-18.0); Calcium 9.1 mg/dL (8.5-10.1); Carbon Dioxide 24.3 mmol/L (21.0-32.0); Chloride 103 mmol/L (98-107); Estimated GFR (African America >60 (>=60 mL/min/1.73m^2); Estimated GFR (Non-African Ame 59 (>=60 mL/min/1.73m^2); Globulin 3.6 g/dL; Glucose 132 mg/dL (74-106); Potassium 4.4 mmol/L (3.5-5.1); Sodium 138 mmol/L (136-145); Total Protein 6.7 g/dL (6.4-8.2)
== END 2025-10-10 16:35 | disposition home or self-care (01) ==
PROVIDERS: Emergency Provider Emergency Medicine; PCP Nurse Practitioner Family
DX: K29.70 Gastritis, unspecified, without bleeding (principal); R11.2 Nausea with vomiting, unspecified; Z87.19 Personal history of other diseases of the digestive system; Z90.49 Acquired absence of other specified parts of digestive tract
CPT/HCPCS: 36415; 80053; 84484; 85025; 85610; 93005; 96374; 99283; 99284; J0780

== ENCOUNTER 2025-10-22 13:54 | Emergency (ER) | payer MEDICARE, MEDICAID, SELFPAY ==
--- OUTSIDE RECORDS SUMMARY | 2023-05-28 08:36 | XMS_ITS | Continuity of Care Document ---
Author Organization [facility] Address [address] [place] [address] Phone Care Team Providers Care Food Service Sales Representatives Name Role Phone Paolo Olivo Unavailable Unavailable Allergies, Adverse Reactions, Alerts Substance Reaction Status Criticality No Known Allergies Active No Inform ation Medications Medication Instructions Dosage Effective Dates (start - stop) Status Comments albuterol sulfate 1.25 mg/3 mL solution for nebulization inhale 3 milliliter by inhalation route 3- 4 times every day via nebulizer 1.25 MG - Active amitriptyline 25 mg tablet take 1 tablet by oral route every day at bedtime 25 MG - Active Celexa 20 mg tablet take 1 tablet by oral route every day 20 MG - Active take with 40 to make 60 Celexa 40 mg tablet take 1 tablet by oral route every day 40 MG - Active Invokana 300 mg tablet take 1 tablet by oral route every day before the first meal of the day 300 MG - Active meclizine 25 mg tablet take 1 tablet by oral route 3 times every day as needed 25 MG - Active nitroglycerin 0.[address] 1 tablet by sublingual route once - Active Prevacid 30 mg capsule,delayed release take 1 capsule by oral route every day before a meal 30 MG - Active ProAir HFA 90 mcg/actuation aerosol inhaler inhale 2 puff by inhalation route every 4 - 6 hours as needed - Active Ranexa 500 mg tablet,extended release take 1 tablet by oral route 2 times every day - Active Seroquel 50 mg tablet take 1 tablet by oral route every bedtime 50 MG - Active Vesicare 5 mg tablet take 1 tablet by oral route every day 5 MG - Active warfarin 2.5 mg tablet take 2 tablet by oral route every day 5 MG - Active hydrocodone 5 mg-acetaminophen 325 mg tablet take 1 tablet by oral route every 6 hours as needed for hip and back pain - Active M54.5, M25.551 Lyrica 100 mg capsule take 1 capsule by oral route 3 times every day 100 MG - Active Ativan 0.5 mg tablet take 1 tablet by oral route 2 times every day as needed for breakthrough anxiety - Active F41.9 lisinopril 10 mg tablet take 1 tablet by oral route every day 10 MG - Active Coreg CR 10 mg capsule, extended release take 1 capsule by oral route every day 10 MG - Active Aspirin Low Dose 81 mg tablet,delayed release take 1 tablet by oral route every day 81 MG - Active lovastatin 20 mg tablet take 1 tablet by oral route every day with the evening meal 20 MG - Active Dr Rodriguez Procedures Procedure Date OFFICE/OUTPATIENT VISIT, EST ROUTINE VENIPUNCTURE OFFICE/OUTPATIENT VISIT, EST OFFICE/OUTPATIENT VISIT, EST GLYCOSYLATED HEMOGLOBIN TEST OFFICE/OUTPATIENT VISIT, EST OFFICE/OUTPATIENT VISIT, EST OFFICE/OUTPATIENT VISIT, EST GLYCOSYLATED HEMOGLOBIN TEST OFFICE/OUTPATIENT VISIT, EST OFFICE/OUTPATIENT VISIT, EST OFFICE/OUTPATIENT VISIT, EST GLYCOSYLATED HEMOGLOBIN TEST OFFICE/OUTPATIENT VISIT, EST OFFICE/OUTPATIENT VISIT, EST OFFICE/OUTPATIENT VISIT, EST OFFICE/OUTPATIENT VISIT, EST GLYCOSYLATED HEMOGLOBIN TEST OFFICE/OUTPATIENT VISIT, EST OFFICE/OUTPATIENT VISIT, EST OFFICE/OUTPATIENT VISIT, EST GLYCOSYLATED HEMOGLOBIN TEST OFFICE/OUTPATIENT VISIT, EST OFFICE/OUTPATIENT VISIT, EST OFFICE/OUTPATIENT VISIT, EST GLYCOSYLATED HEMOGLOBIN TEST OFFICE/OUTPATIENT VISIT, EST OFFICE/OUTPATIENT VISIT, EST [facility] DRUG TEST PRSMV DIR OPT OBS OFFICE/OUTPATIENT VISIT, EST OFFICE/OUTPATIENT VISIT, EST GLYCOSYLATED HEMOGLOBIN TEST OFFICE/OUTPATIENT VISIT, EST No Charge DRUG TEST PRSMV DIR OPT OBS URINALYSIS NONAUTO W/O SCOPE OFFICE/OUTPATIENT VISIT, EST OFFICE/OUTPATIENT VISIT, EST OFFICE/OUTPATIENT VISIT, EST ROUTINE VENIPUNCTURE OFFICE/OUTPATIENT VISIT, EST ROUTINE VENIPUNCTURE OFFICE/OUTPATIENT VISIT, EST OFFICE/OUTPATIENT VISIT, EST ROUTINE VENIPUNCTURE OFFICE/OUTPATIENT VISIT, EST OFFICE/OUTPATIENT VISIT, EST PREV VISIT, EST, AGE 40-64 OFFICE/OUTPATIENT VISIT, EST OFFICE/OUTPATIENT VISIT, EST URINALYSIS NONAUTO W/O SCOPE OFFICE/OUTPATIENT VISIT, EST GLYCOSYLATED HEMOGLOBIN TEST OFFICE/OUTPATIENT VISIT, EST OFFICE/OUTPATIENT VISIT, EST OFFICE/OUTPATIENT VISIT, EST OFFICE/OUTPATIENT VISIT, EST GLYCOSYLATED HEMOGLOBIN TEST OFFICE/OUTPATIENT VISIT, EST GLYCOSYLATED HEMOGLOBIN TEST OFFICE/OUTPATIENT VISIT, EST GLYCOSYLATED HEMOGLOBIN TEST OFFICE/OUTPATIENT VISIT, EST OFFICE/OUTPATIENT VISIT, EST OFFICE/OUTPATIENT VISIT, EST OFFICE/OUTPATIENT VISIT, EST OFFICE/OUTPATIENT VISIT, EST GLYCOSYLATED HEMOGLOBIN TEST OFFICE/OUTPATIENT VISIT, EST OFFICE/OUTPATIENT VISIT, EST OFFICE/OUTPATIENT VISIT, EST OFFICE/OUTPATIENT VISIT, EST OFFICE/OUTPATIENT VISIT, EST OFFICE/OUTPATIENT VISIT, EST OFFICE/OUTPATIENT VISIT, EST OFFICE/OUTPATIENT VISIT, EST OFFICE/OUTPATIENT VISIT, EST OFFICE/OUTPATIENT VISIT, EST MEASURE BLOOD OXYGEN LEVEL OFFICE/OUTPATIENT VISIT, EST OFFICE/OUTPATIENT VISIT, EST OFFICE/OUTPATIENT VISIT, EST ROUTINE VENIPUNCTURE OFFICE/OUTPATIENT VISIT, NEW No Charge Extract; Erupted Th/exposted Rt 014 Limited Oral Eval Intraoral-periapical 1st Film 4 Hkektskic-[id number] Additional Jan [facility] FP MEDICAID Condoms FLU VACCINE, 3 YRS & >, IM NEW FP MEDICAID URINALYSIS, NONAUTO W/SCOPE SPECIMEN HANDLING FLU VACCINE, 3 YRS & >, IM Advance Directives Directive Yes / No Effective Date File Name No Information Encounters Encounter Description Practice Location Reason(s) For Visit Diagnoses Date Provider Providers Copied on Encounter [facility], [address] [place] [address], [id number] , [place] tel:[phone] [facility] No Information 3 Visci DO Paolo. [address] [place] [address], [id number], [place]. tel:[phone] OFFICE/OUTPA TIENT VISIT, EST [facility], [address] [place] [address], [id number] , tel:[phone] [facility] med refills (chief complaint) Body mass index [BMI] 36.0-36.9, adultCOPD w/ acute exacerbationLow back pain, unspecified 1 [facility] [address], [place], [id number], [place]. tel:[phone] [facility], [address], [place], [id number] , [place] tel:[phone] [facility] lab draw (chief complaint) Chronic obstructive pulmonary disease, unspecified 1 [facility] [address], [place], [id number], [place]. tel:[phone] OFFICE/OUTPA TIENT VISIT, [facility], [address] [place] [address], [id number] , [place] tel: [phone] [facility] Med Refills (chief complaint)fa tigue (chief complaint) Body mass index [BMI] 36.0-36.9, adultAnxiety disorder, unspecifiedChron ic obstructive pulmonary disease, unspecifiedCOPD w/ acute exacerbationIron deficiency anemia due to chronic blood lossType 2 diabetes mellitus without complications 1 [facility] [address] [place] [address], [id number], [place]. tel:[phone] OFFICE/OUTPA TIENT VISIT, [facility], [address] [place] [address], [id number] , [place] tel:[phone] [facility] med refill (chief complaint) Body mass index [BMI] 36.0-36.9, adultCarpal tunnel syndrome, leftCervicalgiaM yash problem Sep- 1 [facility] [address] [place] [address], [id number], [place]. tel:[phone] OFFICE/OUTPA TIENT VISIT, [facility], [address] [place] [address], [id number] , [place] tel:[phone] [facility] A1C & Med Refills (chief complaint)di abetes (chief complaint) Body mass index [BMI] 36.0-36.9, adultType 2 diabetes mellitus with hyperglycemiaAnx iety disorder, unspecifiedCervi calgia 1 [facility] [address], [place], [id number], [place]. tel:[phone] OFFICE/OUTPA TIENT VISIT, [facility], [address], [place], [id number] , [place] tel: [phone] [facility] Med Refills (chief complaint)Mu sculoskeleta l pain (chief complaint) Anxiety disorder, unspecifiedCervi calgiaUnspecifie d sprain of left wrist, initial encounterBody mass index [BMI] 36.0-36.9, adult 1 [facility]. [address] [place] [address], [id number], [place]. tel:[phone] OFFICE/OUTPA TIENT VISIT, [facility], [address] [place] [address], [id number] , [place] tel: [phone] [facility] med refill (chief complaint)fa tigue (chief complaint) Body mass index [BMI] 36.0-36.9, adultType 2 diabetes mellitus with other circulatory complicationsAnx iety disorder, unspecified 1 [facility]. [address] [place] [address], [id number], [place]. tel:[phone] OFFICE/OUTPA TIENT VISIT, [facility], [address], [place], [id number] , [place] tel: [phone] [facility] med refill (chief complaint)Me curt loss (chief complaint) Type 2 diabetes mellitus with other circulatory complicationsBod y mass index [BMI] 35.0-35.9, adultAnxiety disorder, unspecifiedUrina ry frequencyMemory problem 1 [facility] [address] [place] [address], [id number], [place]. tel:[phone] OFFICE/OUTPA TIENT VISIT, [facility], [address] [place] [address], [id number] , [place] tel: [phone] [facility] med Refills (chief complaint)fa tigue (chief complaint) Body mass index [BMI] 35.0-35.9, adultAnemia, unspecified typeEssential (primary) hypertensionIron deficiency anemia due to chronic blood loss 0 1 [facility]. [address] [place] [address], [id number], [place]. tel:[phone] OFFICE/OUTPA TIENT VISIT, [facility], [address] [place] [address], [id number] , [place] tel: [phone] [facility] med refill (chief complaint)Co ugh (chief complaint) Chronic obstructive pulmonary disease, unspecifiedAnxie ty disorder, unspecifiedOther cervical disc degeneration, unspecified cervical region 0 1 [facility] [address] [place] [address], [id number], [place]. tel:[phone] OFFICE/OUTPA TIENT VISIT, [facility], [address] [place] [address], [id number] , [place] tel: [phone] [facility] A1C (chief complaint)di abetes (chief complaint) Type 2 diabetes mellitus with other circulatory complicationsAnx iety disorder, unspecifiedLumba r back pain 0 1 [facility] DO [facility]. [address] [place] [address], [id number], [place]. tel:[phone] OFFICE/OUTPA TIENT VISIT, [facility], [address] [place] [address], [id number] , [place] tel: [phone] [facility] Med Refills (chief complaint)GE RD (chief complaint) Body mass index [BMI] 34.0-34.9, adultChronic pulmonary embolismGastroin testinal hemorrhage associated with gastric ulcerType 2 diabetes mellitus with hyperglycemiaOth er cervical disc degeneration, unspecified cervical region 1 [facility] DO [facility]. [address] [place] [address], [id number], [place]. tel:[phone] OFFICE/OUTPA TIENT VISIT, [facility], [address], [place], [id number] , [place] tel: [phone] [facility] med refill (chief complaint) Carpal tunnel syndrome of right wristAnxiety disorder, unspecifiedCervi calgia 3 0-202 0 [facility] DO [facility]. [address], [place], [id number], [place]. tel:[phone] OFFICE/OUTPA TIENT VISIT, [facility], [address], [place], [id number] , [place] tel: [phone] [facility] Med Refills (chief complaint)ba ck pain (chief complaint) Body mass index [BMI] 32.0-32.9, adultOther cervical disc degeneration, unspecified cervical regionAnxiety disorder, unspecifiedCOPD w/ acute exacerbation 2- 0 [facility] DO [facility]. [address] [place] [address], [id number], [place]. tel:[phone] OFFICE/OUTPA TIENT VISIT, [facility], [address] [place] [address], [id number] , [place] tel: [phone] [facility] A1C & Med Refills (chief complaint)di abetes (chief complaint) Body mass index [BMI] 32.0-32.9, adultType 2 diabetes mellitus without complicationsAnx iety disorder, unspecifiedOther cervical disc degeneration, unspecified cervical region 4 0 [facility] DO Max. [address] [place] [address], [id number], [place]. tel:[phone] OFFICE/OUTPA TIENT VISIT, [facility], [address] [place] [address], [id number] , [place] tel: [phone] [facility] Med Refills (chief complaint) Body mass index [BMI] 32.0-32.9, adultAnxiety disorder, unspecifiedFolli culitisCervicalg ia Aug- 7-202 0 [facility] DO Max. [address] [place] [address], [id number], [place]. tel:[phone] OFFICE/OUTPA TIENT VISIT, [facility], [address] [place] [address], [id number] , [place] tel: [phone] [facility] f/u hospital (chief complaint)fa tigue (chief complaint) Gastrointestinal hemorrhage associated with gastric ulcerIron deficiency anemia due to chronic blood lossAnxiety disorder, unspecified Jul- 0 [facility] [address] [place] [address], [id number], [place]. tel:[phone] OFFICE/OUTPA TIENT VISIT, [facility], [address] [place] [address], [id number] , [place] tel: [phone] [facility] A1C & MED REFILLS (chief complaint)Di zziness (chief complaint)di abetes (chief complaint) Body mass index (BMI) 32.0-32.9, adultType 2 diabetes mellitus without complicationsDiz ziness of unknown cause 0 [facility] [address] [place] [address], [id number], [place]. tel:[phone] OFFICE/OUTPA TIENT VISIT, [facility], [address] [place] [address], [id number] , [place] tel: [phone] [facility] Med Refills (chief complaint)GE RD (chief complaint) Anxiety disorder, unspecifiedDizzi ness of unknown causeGERD w/o esophagitis 0 [facility] [address] [place] [address], [id number], [place]. tel:[phone] OFFICE/OUTPA TIENT VISIT, [facility], [address] [place] [address], [id number] , [place] tel: [phone] [facility] med refills (chief complaint)ba ck pain (chief complaint) Body mass index (BMI) 32.0-32.9, adultLumbar back painType 2 diabetes mellitus without complicationsDiz ziness of unknown causeAnxiety disorder, unspecified 0 [facility] DO Max. [address], [place], [id number], [place]. tel:[phone] OFFICE/OUTPA TIENT VISIT, [facility], [address], [place], [id number] , [place] tel: [phone] [facility] A1C & Med refills (chief complaint)An xiety (chief complaint) Body mass index (BMI) 32.0-32.9, adultType 2 diabetes mellitus without complicationsAnx iety disorder, unspecifiedOther cervical disc degeneration, unspecified cervical regionFolliculit isEssential (primary) hypertension 0 [facility] DO Max. [address], [place], [id number], [place]. [phone] OFFICE/OUTPA TIENT VISIT, [facility], [address] [place] [address], [id number] , [place] tel: [phone] [facility] Anxiety (chief complaint) Anxiety disorder, unspecified 0 [facility] DO Max. [address], [place], [id number], [place]. tel:[phone] OFFICE/OUTPA TIENT VISIT, [facility], [address], [place], [id number] , [place] tel: [phone] [facility] f/u med refills (chief complaint)UD S (chief complaint)Sh ortness of breath (chief complaint) halfway (current) use of opiate analgesicBody mass index (BMI) 32.0-32.9, adultChronic obstructive pulmonary disease, unspecifiedDizzi ness of unknown cause 0 [facility] DO Max. [address], [place], [id number], [place]. tel:[phone] OFFICE/OUTPA TIENT VISIT, [facility], [address], [place], [id number] , [place] tel: [phone] [facility] finger infection (chief complaint)Ra sh (chief complaint) Body mass index (BMI) 32.0-32.9, adultHerpetic whitlowEssential (primary) hypertensionAnxi ety disorder, unspecifiedDizzi ness of unknown cause 0 [facility] DO [facility]. [address], [place], [id number], [place]. tel:[phone] OFFICE/OUTPA TIENT VISIT, [facility], [address], [place], [id number] , [place] tel: [phone] [facility] Med Refills & A1C (chief complaint)Ra sh (chief complaint) Type 2 diabetes mellitus without complicationsAnx iety disorder, unspecifiedChron ic obstructive pulmonary disease, unspecified 0 [facility] DO Max. [address] [place] [address], [id number], [place]. tel:[phone] [facility], [address] [place] [address], [id number] , [place] tel: [phone] [facility] RANDOM UDS/PILL COUNT (chief complaint) No Information 9 [facility] DO Max. [address] [place] [address], [id number], [place]. tel:[phone] OFFICE/OUTPA TIENT VISIT, [facility], [address] [place] [address], [id number] , [place] tel: [phone] [facility] Med refills (chief complaint)DR WHITLEY DANG (chief complaint) Body mass index (BMI) 32.0-32.9, adultAnxiety disorder, unspecifiedKidne y painDizziness of unknown cause 9 [facility] DO Max. [address] [place] [address], [id number], [place]. tel:[phone] OFFICE/OUTPA TIENT VISIT, [facility], [address] [place] [address], [id number] , [place] tel:[phone] [facility] 4 WEEK F/U (chief complaint)Di zziness (chief complaint) Body mass index (BMI) 31.0-31.9, adultDizziness of unknown causeLumbar back painType 2 diabetes mellitus with hyperglycemia 9 [facility]. [address] [place] [address], [id number], [place]. tel:[phone] OFFICE/OUTPA TIENT VISIT, [facility], [address] [place] [address], [id number] , [place] tel: [phone] [facility] Med refills & A1C (chief complaint)Di zziness (chief complaint) Body mass index (BMI) 31.0-31.9, adultDizziness of unknown causeAnxiety disorder, unspecifiedType 2 diabetes mellitus with hyperglycemia [address], [id number], [place]. tel:[phone] OFFICE/OUTPA TIENT VISIT, [facility], [address] [place] [address], [id number] , [place] tel: [phone] [facility] 6 WK F/U (chief complaint)DR IGNACIO SCREEN (chief complaint) Pain in leg, unspecifiedBody mass index (BMI) 31.0-31.9, adultAnxiety disorder, unspecifiedChron ic pulmonary embolism [address], [id number], [place]. tel:[phone] OFFICE/OUTPA TIENT VISIT, [facility], [address] [place] [address], [id number] , [place] tel: [phone] [facility] follow up (chief complaint)hy pertension (chief complaint)dr ignacio screen (chief complaint) Body mass index (BMI) 31.0-31.9, adultEncntr for general adult medical exam w/o abnormal findingsEssentia l (primary) hypertensionType 2 diabetes mellitus without complicationsAnx iety disorder, unspecified 9 [facility]. [address] [place] [address], [id number], [place]. tel:[phone] OFFICE/OUTPA TIENT VISIT, [facility], [address], [place], [id number] , [place] tel: [phone] [facility] F/U HOSPITAL ADMITION (chief complaint)DR WHITLEY DANG (chief complaint) Body mass index (BMI) 31.0-31.9, adultAnxiety disorder, unspecifiedGERD w/o esophagitisHerpe tic shashi 9 [facility]. [address] [place] [address], [id number], [place]. tel:[phone] OFFICE/OUTPA TIENT VISIT, [facility], [address], [place], [id number] , [place] tel: [phone] [facility] med refill (chief complaint) Body mass index (BMI) 31.0-31.9, adultAnxiety disorder, unspecifiedType 2 diabetes mellitus without complications 9 [facility]. [address] [place] [address], [id number], [place]. tel:[phone] [facility], [address] [place] [address], [id number] , [place] tel: [phone] [facility] med refills (chief complaint) Body mass index (BMI) 31.0-31.9, adultCellulitis and abscess of finger, unspecifiedCutan eous abscess of unspecified handBipolar disorder 9 [facility]. [address], [place], [id number], [place]. tel:[phone] [facility], [address] [place] [address], [id number] , [place] tel: [phone] [facility] Abnormal Mammogram 9 [facility]. [address] [place] [address], [id number], [place]. tel:[phone] [facility], [address] [place] [address], [id number] , [place] tel: [phone] [facility] Medication refills (chief complaint)A1 C (chief complaint) Body mass index (BMI) 31.0-31.9, adultType 2 diabetes mellitus without complicationsLum barn hand pain Jan- 9 [facility]. [address], [place], [id number], [place]. tel:[phone] [facility], [address] [place] [address], [id number] , [place] tel: [phone] [facility] Abnormal Mammogram Jan- 9 [facility]. [address] [place] [address], [id number], [place]. tel:[phone] OFFICE/OUTPA TIENT VISIT, EST [facility], [address] [place] [address], [id number] , [place] tel: [phone] [facility] sickness (chief complaint) Body mass index (BMI) 31.0-31.9, adultAcute non-recurrent maxillary sinusitisCOPD w/ acute exacerbationAnxi ety disorder, unspecifiedOther cervical disc degeneration, unspecified cervical region Dec- 9 [facility]. [address], [place], [id number], [place]. tel:[phone] [facility], [address] [place] [address], [id number] , [place] tel: [phone] [facility] Abnormal MammogramUnspeci fied urinary incontinence 9 [facility]. [address] [place] [address], [id number], [place]. 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 [address], [place], [id number], [place]. tel:[phone] [facility], [address], [place], [id number] , [place] tel: [phone] [facility] f/u abdominal pain (chief complaint) Body mass index (BMI) 32.0-32.9, adultHx pulmonary embolismHernia of abdominal wallAnxiety disorder, unspecified 9 [facility] DO [facility]. [address], [place], [id number], [place]. tel:[phone] [facility], [address] [place] [address], [id number] , [place] tel: [phone] [facility] abdomen issues (chief complaint) Right lower quadrant abdominal painEncounter for screening for Ca of colon 9 Kamaljit Wilcox. [address] [place] [address], [id number], [place]. tel:[phone] OFFICE/OUTPA TIENT VISIT, EST [facility], [address], [place], [id number] , [place] tel: [phone] [facility] rib pain when breathing (chief complaint) Body mass index (BMI) 31.0-31.9, adultRib pain on right sideLumbar back painRight hip pain 9 [facility]al[facility] Wilcox. [address] [place] [address], [id number], [place]. tel:[phone] [facility], [address] [place] [address], [id number] , [place] tel:[phone] [facility] med refill (chief complaint) Right hip painLumbar back painAnxiety disorder, unspecified 9 [facility] Wilcox. [address] [place] [address], [id number], [place]. tel:[phone] OFFICE/OUTPA TIENT VISIT, [facility], [address] [place] [address], [id number] , [place] tel: [phone] [facility] bladder infection (chief complaint) Oliguria 8 Shahzad Cobb. [address] [place] [address], [id number], [place]. tel:[phone] OFFICE/OUTPA TIENT VISIT, [facility], [address] [place] [address], [id number] , [place] tel: [phone] [facility] Medication refill (chief complaint) Anxiety disorder, unspecifiedBipol ar disorderVertigo 8 Shahzad Cobb. [address] [place] [address], [id number], [place]. tel:[phone] [facility], [address] [place] [address], [id number] , [place] tel: [phone] [facility] medication refill (chief complaint)br onchitis (chief complaint)De nnison: (chief complaint) Chronic obstructive pulmonary disease, unspecifiedCough Type 2 diabetes mellitus without complicationsEss ential (primary) hypertension 8 Margarito Horne. [address] [place] [address], [id number], [place]. tel:[phone] [facility], [address] [place] [address], [id number] , [place] tel: [phone] [facility] sick (chief complaint)me d refill (chief complaint)dE NNISON: (chief complaint) CoughChronic obstructive pulmonary disease, unspecifiedType 2 diabetes mellitus without complicationsEss ential (primary) hypertension 8 Margarito Horne. [address] [place] [address], [id number], [place]. tel:[phone] [facility], [address] [place] [address], [id number] , [place] tel: [phone] [facility] med refill (chief complaint)De nnison: (chief complaint) Focal (segmental) acute (reversible) ischemia of small intestineAnxiety disorder, unspecifiedBipol ar disorderChronic obstructive pulmonary disease, unspecifiedType 2 diabetes mellitus without complicationsNic otine dependence, unspecified, uncomplicatedEss ential (primary) hypertension 8 Margarito Horne. [address] [place] [address], [id number], . tel:[phone] [facility], [address] [place] [address], [id number] , [place] tel: [phone] [facility] med refills (chief complaint)Le ft thight (chief complaint) Meralgia paresthetica, left lower limbAnxiety disorder, unspecifiedBipol ar disorder 7 Shahzad Cobb. [address] [place] [address], [id number], . tel:[phone] OFFICE/OUTPA TIENT VISIT, [facility], [address] [place] [address], [id number] , [place] tel: [phone] [facility] R thigh pain (chief complaint)di scuss medication (chief complaint) Anxiety disorder, unspecifiedBipol ar disorderMeralgia paresthetica, left lower limb 7 Shahzad Cobb. [address] [place] [address], [id number], [place]. tel:[phone] [facility], [address] [place] [address], [id number] , [place] tel: [phone] [facility] HgbA1C (chief complaint)me dication refill (chief complaint) Anxiety disorder, unspecifiedBipol ar disorderCervical giaOther cervical disc degeneration, unspecified cervical regionSpinal stenosis, cervical regionPain in left shoulderType 2 diabetes mellitus with hyperglycemiaGER D w/o esophagitis 7 Shahzad Cobb. [address] [place] [address], [id number], [place]. tel:[phone] OFFICE/OUTPA TIENT VISIT, [facility], [address] [place], [place], [id number] , [place] tel: [phone] [facility] follow up (chief complaint) Chronic pulmonary embolismCervical giaOther cervical disc degeneration, unspecified cervical regionSpinal stenosis, cervical region 7 Shahzad Cobb. [address] [place] [address], [id number], [place]. tel:[phone] OFFICE/OUTPA TIENT VISIT, [facility], [address] [place], [place], [id number] , [place] tel: [phone] [facility] L arm/shoulder pain (chief complaint) CervicalgiaOther cervical disc degeneration, unspecified cervical regionSpinal stenosis, cervical region 6 Shahzad Cobb. [address] [place] [address], [id number], [place]. tel:[phone] OFFICE/OUTPA TIENT VISIT, [facility], [address] [place], [place], [id number] , [place] tel: [phone] [facility] severe leg pain (chief complaint) Restless leg syndromePain in leg, unspecifiedType 2 diabetes mellitus with hyperglycemiaSpi nal stenosis, cervical region 6 Shahzad Cobb. [address] [place] [address], [id number], [place]. tel:[phone] OFFICE/OUTPA TIENT VISIT, [facility], [address] [place], [place], [id number] , [place] tel: [phone] [facility] knee pain (chief complaint) Pain in kneeRestless leg syndrome 6 Shahzad Cobb. [address] [place] [address], [id number], [place]. tel:[phone] [facility], [address] [place] [address], [id number] , [place] tel: [phone] [facility] spasms on right side (chief complaint) Muscle spasm of backCervicalgiaO ther cervical disc degeneration, unspecified cervical regionSpinal stenosis, cervical region 6 Shahzad Cobb. [address] [place] [address], [id number], [place]. tel:[phone] OFFICE/OUTPA TIENT VISIT, [facility], [address] [place], [place], [id number] , [place] tel: [phone] [facility] med refill (chief complaint) Type 2 diabetes mellitus with hyperglycemiaCer vicalgiaOther cervical disc degeneration, unspecified cervical regionSpinal stenosis, cervical region 6 Shahzad Cobb. [address] [place] [address], [id number], [place]. tel:[phone] [facility], [address] [place] [address], [id number] , [place] tel: [phone] [facility] Vertigo 6 Shahzad Cobb. [address] [place] [address], [id number], [place]. tel:[phone] OFFICE/OUTPA TIENT VISIT, [facility], [address] [place] [address], [id number] , [place] tel: [phone] [facility] medication refill (chief complaint)kn ee pain (chief complaint) Bipolar disorder 6 Shahzad Cobb. [address] [place] [address], [id number], [place]. tel:[phone] OFFICE/OUTPA TIENT VISIT, [facility], [address] [place] [address], [id number] , [place] tel: [phone] [facility] medication refill (chief complaint)re stless leg syndrome (chief complaint) Restless leg syndromeCervical giaOther cervical disc degeneration, unspecified cervical regionSpinal stenosis, cervical region 6 Shahzad Cobb. [address] [place] [address], [id number], [place]. tel: [phone] OFFICE/OUTPA TIENT VISIT, [facility], [address] [place], [place], [id number] , [place] tel: [phone] [facility] medication refills (chief complaint) Bipolar disorderAnxiety disorder, unspecified 0 6 Shahzad Cobb. [address] [place], [place], [id number], [place]. [phone] OFFICE/OUTPA TIENT VISIT, [facility], [address] [place], [place], [id number] , [place] tel: [phone] [facility] medication refill (chief complaint) CervicalgiaOther cervical disc degeneration, unspecified cervical regionSpinal stenosis, cervical regionVertigo 6 Shahzad Cobb. [address] [place] [address], [id number], [place]. tel:[phone] OFFICE/OUTPA TIENT VISIT, [facility], [address] [place], [place], [id number] , [place] tel: [phone] [facility] cough (chief complaint)me d refill (chief complaint) Type 2 diabetes mellitus with hyperglycemiaCOP D w/ acute exacerbationCerv icalgiaOther cervical disc degeneration, unspecified cervical regionSpinal stenosis, cervical region 6 Shahzad Cobb. [address] [place] [address], [id number], [place]. tel:[phone] OFFICE/OUTPA TIENT VISIT, [facility], [address] [place], [place], [id number] , [place] tel: [phone] [facility] pain (chief complaint) CervicalgiaPain in left shoulder 5 Shahzad Cobb. [address] [place] [address], [id number], [place]. tel:[phone] OFFICE/OUTPA TIENT VISIT, [facility], [address] [place] [address], [id number] , [place] tel:[phone] [facility] cold (chief complaint) COPD w/ acute exacerbationCerv icalgiaOther cervical disc degeneration, unspecified cervical region Aug- 5 Shahzad Cobb. [address] [place] [address], [id number], [place]. tel:[phone] OFFICE/OUTPA TIENT VISIT, [facility], [address] [place] [address], [id number] , [place] tel: [phone] [facility] med refill (chief complaint) CervicalgiaDegen eration of cervical intervertebral discSpinal stenosis in cervical regionColostomy status 5 Shahzad Cobb. [address] [place] [address], [id number], [place]. tel:[phone] OFFICE/OUTPA TIENT VISIT, [facility], [address] [place] [address], [id number] , [place] tel: [phone] [facility] Medcation refills (chief complaint)St aple removal (chief complaint) AnxietyColostomy status 5 Shahzad Cobb. [address] [place] [address], [id number], [place]. [phone] OFFICE/OUTPA TIENT VISIT, [facility], [address] [place] [address], [id number] , [place] tel: [phone] [facility] med refill (chief complaint) Acute mesenteric ischemiaColostom y statusTrigger finger Apr- 5 Shahzad Cobb. [address] [place] [address], [id number], [place]. tel:[phone] OFFICE/OUTPA TIENT VISIT, [facility], [address] [place] [address], [id number] , [place] tel:[phone] [facility] Med refill (chief complaint) Abdomen painAttention to colostomyColosto my status 5 Shahzad Cobb. [address], [place], [id number], [place]. tel:[phone] OFFICE/OUTPA TIENT VISIT, [facility], [address], [place], [id number] , [place] tel: [phone] [facility] medication refill (chief complaint) Spinal stenosis in cervical regionColostomy status 5 Shahzad Cobb. [address], [place], [id number], [place]. tel:[phone] OFFICE/OUTPA TIENT VISIT, [facility], [address], [place], [id number] , [place] tel: [phone] [facility] med refill (chief complaint) Colostomy statusAbdomen painAcute bronchitis 5 Nanda Wilcox. [address] [place] [address], [id number], [place]. tel:[phone] OFFICE/OUTPA TIENT VISIT, [facility], [address] [place], [place], [id number] , [place] tel: [phone] [facility] dyspnea (chief complaint) COPDColostomy statusTobacco abuse 5 Shahzad Cobb. [address], [place], [id number], [place]. tel:[phone] OFFICE/OUTPA TIENT VISIT, [facility], [address] [place] [address], [place], [id number] , [place] tel: [phone] [facility] med f/u (chief complaint) Spinal stenosis in cervical regionCervicalgi a 5 Shahzad Cobb. [address], [place], [id number], [place]. tel:[phone] [facility], [address] [place] [address], [id number] , [place] tel: [phone] [facility] referral (chief complaint) Colostomy statusAttention to colostomy 4 Er[employer]beck [employer]BLE[employer]ING [employer]ACH[employer] TENDER Jeri. [address] [place], [place], [id number], [place]. [phone] OFFICE/OUTPA TIENT VISIT, [facility], [address] [place], [place], [id number] , [place] tel: [phone] [facility] ER (chief complaint) OtherColostomy statusAnxietyDia betes Mellitus Type 2, UncomplicatedOth er and unspecified coagulation defects 4 [employer]BLE[employer]ACH[employer] TENDER Jeri. [address] [place], [place], [id number], [place]. [phone] OFFICE/OUTPA TIENT VISIT, [facility], [address] [place], [place], [id number] , [place] tel: [phone] [facility] BP check (chief complaint) CervicalgiaSpina l stenosis in cervical regionDisplaceme nt of cervical intervertebral disc without myelopathy 4 Er[employer]BLE[employer]ACH[employer] TENDER Jeri. [address] [place], [place], [id number], [place]. [phone] OFFICE/OUTPA TIENT VISIT, [facility], [address], [place], [id number] , [place] tel: [phone] [facility] review labs and MRI (chief complaint) Degeneration of cervical intervertebral discDiabetes Mellitus Type 2, UncomplicatedUns pecified essential hypertensionUrin maryellen incontinence, unspecifiedMixed HyperlipidemiaOv erweight 4 Hemmer Libby. [address], [place], [id number], [place]. [facility], [address], [place], [id number] , [place] tel: [phone] [facility] No Information 4 Hemmer Libby. [address], [place], [id number], [place]. [facility], [address] [place] [address], [place], [id number] , [place] tel: [phone] [facility] Potential Drug Interaction (chief complaint) Therapeutic Drug Monitoring 4 Hemkirill Souza. [address], [place], [id number], [place]. OFFICE/OUTPA TIENT VISIT, [facility], [address], [place], [id number] , [place] tel: [phone] [facility] neck pain (chief complaint)ea r discomfort (chief complaint) Degeneration of cervical intervertebral discGERDDiabetes Mellitus Type 2, UncomplicatedUri nary incontinence, unspecifiedUnspe cified essential hypertensionMixe d HyperlipidemiaBe nign neoplasm of thyroid glands 4 Hemkirill Souza. [address], [place], [id number], [place]. [facility], [address] [place] [address], [id number] , [place] tel: [phone] [facility] Dental examination 4 Merrick DMD January. [address], [place], [id number], [place]. tel:[phone] [facility], [address], [place], [id number] , [place] tel: [phone] [facility] Dental examination 4 Wisdom DMD January. [address], [place], [id number], [place]. tel:[phone] [facility], [address], [place], [id number] , [place] tel: [phone] [facility] Dental examination 0 4 Wisdom DMD January. [address], [place], [id number], [place]. tel:[phone] [facility], [address], [place], [id number] , [place] tel:[phone] [facility] No Information Jul-2 0 Lamp Mayte. [address], [place], [id number], [place]. tel:[phone] [facility], [address] [place] [address], [id number] , tel: [phone] [facility] No Information Sep-2 8-201 0 Visci DO Boone. [address] [place] [address], [id number], . tel:[phone] [facility], [address] [place] [address], [id number] , tel: [phone] [facility] No Information Dec-0 1-200 8 No Information [facility], [address] [place] [address], [id number] , tel: [phone] Flu No Information Dec-0 1-200 8 Visci DO Boone. [address] [place] [address], [id number], . tel:[phone] Family History Family Member Type Diagnosis Age At Onset Problem (finding) Family history of depre ssion Brother Problem (finding) alzheimer's disease Brother Problem (finding) depression Father Problem (finding) Heart disease 71 Father Problem (finding) diabetes melli tus in first degree relative Sister Problem (finding) stroke Mother Problem (finding) stroke 79 Sister Problem (finding) Alive and well Mother Problem (finding) hypertension Sister Problem (finding) Alive and well Brother Problem (finding) stroke Father Problem (finding) depression Mother Problem (finding) Father Problem (finding) Mother Problem (finding) diabetes melli tus in first degree relative Mother Problem (finding) raised blood lipids Brother Problem (finding) raised blood lipids Mother Problem (finding) depression Brother Problem (finding) Alive and well Brother Problem (finding) hypertension Sister Problem (finding) alzheimer's disease Father Problem (finding) raised blood lipids Brother Problem (finding) diabetes melli tus in first degree relative Father Problem (finding) hypertension Payers Payer name Insurance type Covered alliance party ID Fredy ferrer(s) Ale Medicare Advantage SERGO [id number] Medicaid [facility] [id number] Social History Type Description Quantity Date Captured Comments Alcohol Use Details Unknown Caffeine Use Details Unknown Tobacco Use Status Smoking Status No Information Sex Female Sexual Orientation Straight or heterosexual Gender Identity Female Chief Complaint And Reason For Visit No Information Reason For Referral Reason For Referral No Information Plan Of Treatment Date Type Action Status Goal Hemoglobin A1C. Due on due Goal Influenza Vaccine. Due on due Goal Dental exam. Due on due Goal Hep A. Due on du e Goal Foot exam. Due on due Goal Urine microalbumin. Due on due Goal Mammogram. Due on due Goal Depression screening. Due on due Goal Zoster vaccine (). Due on due Goal Breast exam. Due on due Goal Hep A. Due on du e Goal Dilated eye exam. Due on May due Goal Tdap. Due on due Goal H&P. Due on due Goal APPLICATION TRAINER exam. Due on due Goal Colonoscopy. Due on due Goal Pneumococcal vaccine. Due on due Goal Urinalysis due Goal ECG. Due on due Goal PRAPARE ASSESSMENT. Due on due Goal Tdap Vaccine. Due on 2022 due Goal Colonoscopy. Due on due Goal Zoster vaccine (). Due on due Goal Depression screening. Due on due Goal Breast exam. Due on due Goal Influenza Vaccine. Due on due Goal Urine microalbumin. Due on due Goal Dilated eye exam. Due on Sep due Goal H&P. Due on due Goal Diabetes screening. Due on due Goal ECG. Due on due Goal Tdap. Due on due Goal Pneumococcal vaccine. Due on due Goal APPLICATION TRAINER exam. Due on due Goal Foot exam. Due on due Goal Dental exam. Due on due Goal Hemoglobin A1C. Due on due Goal Mammogram. Due on due Goal Tobacco cessation counseling completed Goal Hemoglobin A1C. Due on due Goal Foot exam. Due on due Goal Dilated eye exam. Due on Sep due Goal Pneumococcal vaccine. Due on due Goal Urine microalbumin. Due on due Goal Dental exam. Due on due Goal H&P. Due on due Goal Depression screening. Due on due Goal Zoster vaccine (). Due on due Goal ECG. Due on due Goal APPLICATION TRAINER exam. Due on due Goal Tdap. Due on due Goal Diabetes screening. Due on due Goal Mammogram. Due on due Goal Colonoscopy. Due on due Goal Influenza Vaccine. Due on due Goal Breast exam. Due on due Goal Mammogram. Due on due Goal Tdap. Due on due Goal Hemoglobin A1C. Due on due Goal Breast exam. Due on due Goal Diabetes screening. Due on due Goal APPLICATION TRAINER exam. Due on due Goal Influenza Vaccine. Due on Oc due Goal Depression screening. Due on due Goal Dental exam. Due on due Goal ECG. Due on due Goal H&P. Due on due Goal Foot exam. Due on due Goal Dilated eye exam. Due on Aug due Goal Urine microalbumin. Due on O due Goal Zoster vaccine (). Due on due Goal Pneumococcal vaccine. Due on due Goal Colonoscopy. Due on due Goal Dietary management education , guidance, and counseling completed Goal Tobacco cessation counseling completed Goal Mammogram. Due on due Goal APPLICATION TRAINER exam. Due on due Goal Depression screening. Due on due Goal Dental exam. Due on due Goal Colonoscopy. Due on due Goal Zoster vaccine (). Due on due Goal Breast exam. Due on due Goal Foot exam. Due on due Goal Dilated eye exam. Due on Jul due Goal H&P. Due on due Goal Influenza Vaccine. Due on due Goal Tdap. Due on due Goal Hemoglobin A1C. Due on due Goal Urine microalbumin. Due on due Goal Pneumococcal vaccine. Due on due Goal Diabetes screening. Due on due Goal ECG. Due on due Goal Dietary management education , guidance, and counseling completed Goal Tdap. Due on due Goal Diabetes screening. Due on due Goal APPLICATION TRAINER exam. Due on due Goal Breast exam. Due on due Goal Depression screening. Due on due Goal Mammogram. Due on due Goal Colonoscopy. Due on due Goal H&P. Due on due Goal Influenza Vaccine. Due on due Goal ECG. Due on due Goal Pneumococcal vaccine. Due on due Goal Dental exam. Due on due Goal Hemoglobin A1C. Due on due Goal Urine microalbumin. Due on due Goal Dilated eye exam. Due on Jul due Goal Foot exam. Due on due Goal Zoster vaccine (). Due on due Goal Dietary management education , guidance, and counseling completed Goal Tobacco cessation counseling completed Goal Foot exam. Due on due Goal Pneumococcal vaccine. Due on due Goal Breast exam. Due on due Goal Urine microalbumin. Due on A due Goal Diabetes screening. Due on due Goal Colonoscopy. Due on due Goal APPLICATION TRAINER exam. Due on due Goal Depression screening. Due on due Goal Dental exam. Due on due Goal Dilated eye exam. Due on Jun due Goal Mammogram. Due on due Goal ECG. Due on due Goal Hemoglobin A1C. Due on due Goal H&P. Due on due Goal Influenza Vaccine. Due on due Goal Zoster vaccine (). Due on due Goal Tdap. Due on due Goal Tobacco cessation counseling completed Goal Dietary management education , guidance, and counseling completed Goal Urine microalbumin. Due on due Goal APPLICATION TRAINER exam. Due on due Goal Breast exam. Due on due Goal ECG. Due on due Goal Tdap. Due on due Goal Influenza Vaccine. Due on due Goal Pneumococcal vaccine. Due on due Goal H&P. Due on due Goal Zoster vaccine (). Due on due Goal Mammogram. Due on due Goal Colonoscopy. Due on due Goal Diabetes screening. Due on due Goal Depression screening. Due on due Goal Foot exam. Due on due Goal Dilated eye exam. Due on May due Goal Dental exam. Due on due Goal Hemoglobin A1C. Due on due Goal Tobacco cessation counseling completed Goal Dietary management education , guidance, and counseling completed Goal ECG. Due on due Goal Colonoscopy. Due on due Goal Zoster vaccine (). Due on due Goal Breast exam. Due on due Goal Tdap. Due on due Goal Dilated eye exam. Due on Apr due Goal Dental exam. Due on due Goal APPLICATION TRAINER exam. Due on due Goal Pneumococcal vaccine. Due on due Goal Influenza Vaccine. Due on due Goal Depression screening. Due on due Goal Hemoglobin A1C. Due on due Goal Foot exam. Due on due Goal H&P. Due on due Goal Mammogram. Due on due Goal Urine microalbumin. Due on due Goal Diabetes screening. Due on due Goal Tobacco cessation counseling completed Goal Dietary management education , guidance, and counseling completed Goal Zoster vaccine (). Due on due Goal Pneumococcal vaccine. Due on due Goal Foot exam. Due on due Goal Urine microalbumin. Due on due Goal Breast exam. Due on due Goal Diabetes screening. Due on due Goal Depression screening. Due on due Goal Colonoscopy. Due on 025 due Goal ECG. Due on due Goal Hemoglobin A1C. Due on due Goal Dental exam. Due on due Goal APPLICATION TRAINER exam. Due on due Goal Dilated eye exam. Due on March due Goal H&P. Due on due Goal Tdap. Due on due Goal Influenza Vaccine. Due on due Goal Mammogram. Due on due Goal Tobacco cessation counseling completed Goal Dietary management education , guidance, and counseling completed Goal Zoster vaccine (). Due on due Goal Depression screening. Due on due Goal Mammogram. Due on due Goal Dilated eye exam. Due on Jan due Goal Colonoscopy. Due on due Goal Foot exam. Due on due Goal Dental exam. Due on due Goal APPLICATION TRAINER exam. Due on due Goal Urine microalbumin. Due on A due Goal H&P. Due on due Goal ECG. Due on due Goal Tdap. Due on due Goal Pneumococcal vaccine. Due on due Goal Hemoglobin A1C. Due on due Goal Breast exam. Due on due Goal Influenza Vaccine. Due on due Goal Diabetes screening. Due on due Goal Dental exam. Due on due Goal ECG. Due on due Goal Breast exam. Due on due Goal Colonoscopy. Due on due Goal H&P. Due on due Goal Mammogram. Due on due Goal APPLICATION TRAINER exam. Due on due Goal Foot exam. Due on due Goal Zoster vaccine (1st). Due on due Goal Pneumococcal vaccine. Due on due Goal Tdap. Due on due Goal Influenza Vaccine. Due on due Goal Diabetes screening. Due on due Goal Hemoglobin A1C. Due on due Goal Depression screening. Due on due Goal Dilated eye exam. Due on Dec due Goal Urine microalbumin. Due on due Goal Tobacco cessation counseling completed Goal Dilated eye exam. Due on Nov due Goal Colonoscopy. Due on due Goal Hemoglobin A1C. Due on due Goal Dental exam. Due on due Goal Urine microalbumin. Due on due Goal Pneumococcal vaccine. Due on due Goal Foot exam. Due on due Goal Tdap. Due on due Goal Depression screening. Due on due Goal Breast exam. Due on due Goal Diabetes screening. Due on due Goal ECG. Due on due Goal H&P. Due on due Goal Mammogram. Due on due Goal Influenza Vaccine. Due on due Goal APPLICATION TRAINER exam. Due on due Goal Zoster vaccine (). Due on due Goal Tobacco cessation counseling completed Goal Dietary management education , guidance, and counseling completed Goal Dilated eye exam. Due on Oct due Goal Foot exam. Due on 0 due Goal Urine microalbumin. Due on due Goal Hemoglobin A1C. Due on due Goal H&P. Due on due Goal Tdap. Due on due Goal Diabetes screening. Due on due Goal ECG. Due on due Goal Zoster vaccine (). Due on due Goal Dental exam. Due on due Goal Pneumococcal vaccine. Due on due Goal Mammogram. Due on 0 due Goal APPLICATION TRAINER exam. Due on due Goal Colonoscopy. Due on 025 due Goal Influenza Vaccine. Due on due Goal Depression screening. Due on due Goal Breast exam. Due on due Goal Tobacco cessation counseling completed Goal Zoster vaccine (1st). Due on due Goal Urine microalbumin. Due on due Goal Dilated eye exam. Due on Oct due Goal Pneumococcal vaccine. Due on due Goal APPLICATION TRAINER exam. Due on due Goal Foot exam. Due on 0 due Goal Hemoglobin A1C. Due on due Goal Dental exam. Due on due Goal Mammogram. Due on 0 due Goal ECG. Due on due Goal Breast exam. Due on due Goal Colonoscopy. Due on due Goal Depression screening. Due on due Goal Tdap. Due on due Goal Diabetes screening. Due on due Goal Influenza Vaccine. Due on due Goal H&P. Due on due Goal Tobacco cessation counseling completed Goal Dietary management education , guidance, and counseling completed Goal APPLICATION TRAINER exam. Due on due Goal Pneumococcal vaccine. Due on due Goal Foot exam. Due on 0 due Goal Hemoglobin A1C. Due on due Goal Dilated eye exam. Due on Sep due Goal Dental exam. Due on due Goal Urine microalbumin. Due on due Goal Breast exam. Due on due Goal Zoster vaccine (). Due on due Goal Depression screening. Due on due Goal H&P. Due on due Goal Diabetes screening. Due on due Goal Mammogram. Due on 0 due Goal Colonoscopy. Due on due Goal Influenza Vaccine. Due on due Goal Tdap. Due on due Goal ECG. Due on due Goal Tobacco cessation counseling completed Goal Dietary management education , guidance, and counseling completed Goal ECG. Due on due Goal Dilated eye exam. Due on Aug due Goal Influenza Vaccine. Due on due Goal APPLICATION TRAINER exam. Due on due Goal Depression screening. Due on due Goal Foot exam. Due on 0 due Goal Hemoglobin A1C. Due on due Goal Zoster vaccine (). Due on due Goal Pneumococcal vaccine. Due on due Goal Colonoscopy. Due on 025 due Goal Dental exam. Due on due Goal Mammogram. Due on 0 due Goal Diabetes screening. Due on due Goal Tdap. Due on due Goal Breast exam. Due on due Goal H&P. Due on due Goal Urine microalbumin. Due on O due Goal Tobacco cessation counseling completed Goal Dietary management education , guidance, and counseling completed Goal Dilated eye exam. Due on Jul due Goal Foot exam. Due on 0 due Goal APPLICATION TRAINER exam. Due on due Goal Tdap. Due on due Goal Mammogram. Due on 0 due Goal Breast exam. Due on due Goal Dental exam. Due on due Goal ECG. Due on due Goal Influenza Vaccine. Due on due Goal Depression screening. Due on due Goal Zoster vaccine (). Due on due Goal Hemoglobin A1C. Due on due Goal Colonoscopy. Due on 025 due Goal Urine microalbumin. Due on due Goal H&P. Due on due Goal Pneumococcal vaccine. Due on due Goal Diabetes screening. Due on due Goal Tobacco cessation counseling completed Goal Foot exam. Due on 0 due Goal Influenza Vaccine. Due on due Goal Mammogram. Due on 0 due Goal Dental exam. Due on due Goal APPLICATION TRAINER exam. Due on due Goal Urine microalbumin. Due on due Goal Pneumococcal vaccine. Due on due Goal Breast exam. Due on due Goal Hemoglobin A1C. Due on due Goal Dilated eye exam. Due on Jun due Goal Depression screening. Due on due Goal Diabetes screening. Due on due Goal H&P. Due on due Goal Zoster vaccine (). Due on due Goal ECG. Due on due Goal Tdap. Due on due Goal Colonoscopy. Due on due Goal Tobacco cessation counseling completed Goal Dietary management education , guidance, and counseling completed Goal APPLICATION TRAINER exam. Due on due Goal Breast exam. Due on due Goal Mammogram. Due on 0 due Goal Pneumococcal vaccine. Due on due Goal Diabetes screening. Due on due Goal ECG. Due on due Goal H&P. Due on due Goal Depression screening. Due on due Goal Foot exam. Due on 0 due Goal Hemoglobin A1C. Due on due Goal Urine microalbumin. Due on due Goal Zoster vaccine (). Due on due Goal Tdap. Due on due Goal Dilated eye exam. Due on May due Goal Colonoscopy. Due on due Goal Influenza Vaccine. Due on due Goal Dental exam. Due on due Goal Tobacco cessation counseling completed Goal Dilated eye exam. Due on Apr due Goal Mammogram. Due on 0 due Goal Foot exam. Due on 0 due Goal Dental exam. Due on due Goal Hemoglobin A1C. Due on due Goal Urine microalbumin. Due on due Goal Depression screening. Due on due Goal Pneumococcal vaccine. Due on due Goal APPLICATION TRAINER exam. Due on due Goal Colonoscopy. Due on due Goal H&P. Due on due Goal Influenza Vaccine. Due on due Goal Tdap. Due on due Goal Breast exam. Due on due Goal ECG. Due on due Goal Diabetes screening. Due on due Goal Zoster vaccine (). Due on due Goal Tobacco cessation counseling completed Goal Dietary management education , guidance, and counseling completed Goal Dilated eye exam. Due on March due Goal Foot exam. Due on 0 due Goal Pneumococcal vaccine. Due on due Goal Urine microalbumin. Due on due Goal Colonoscopy. Due on due Goal ECG. Due on due Goal Breast exam. Due on due Goal Depression screening. Due on due Goal Diabetes screening. Due on due Goal Influenza Vaccine. Due on due Goal Zoster vaccine (). Due on due Goal APPLICATION TRAINER exam. Due on due Goal Tdap. Due on due Goal Hemoglobin A1C. Due on due Goal Dental exam. Due on due Goal H&P. Due on due Goal Mammogram. Due on 0 due Goal Dietary management education , guidance, and counseling completed Goal Tobacco cessation counseling completed Goal Depression screening. Due on due Goal Dental exam. Due on due Goal APPLICATION TRAINER exam. Due on due Goal Hemoglobin A1C. Due on due Goal Breast exam. Due on due Goal Foot exam. Due on 0 due Goal Urine microalbumin. Due on due Goal H&P. Due on due Goal Tdap. Due on due Goal Mammogram. Due on 0 due Goal ECG. Due on due Goal Diabetes screening. Due on due Goal Colonoscopy. Due on due Goal Pneumococcal vaccine. Due on due Goal Influenza Vaccine. Due on due Goal Dilated eye exam. Due on March due Goal Pneumococcal vaccine. Due on due Goal Dilated eye exam. Due on Dec due Goal Foot exam. Due on 0 due Goal Dental exam. Due on due Goal Urine microalbumin. Due on due Goal Colonoscopy. Due on due Goal Tdap. Due on due Goal Diabetes screening. Due on due Goal ECG. Due on due Goal APPLICATION TRAINER exam. Due on due Goal Breast exam. Due on due Goal Influenza Vaccine. Due on due Goal Mammogram. Due on 0 due Goal Depression screening. Due on due Goal H&P. Due on due Goal Tobacco cessation counseling completed Goal Dietary management education , guidance, and counseling completed Goal Tdap. Due on due Goal Breast exam. Due on due Goal Depression screening. Due on due Goal Influenza Vaccine. Due on due Goal Pneumococcal vaccine. Due on due Goal APPLICATION TRAINER exam. Due on due Goal Colonoscopy. Due on due Goal Dilated eye exam. Due on Nov due Goal Mammogram. Due on 0 due Goal Dental exam. Due on due Goal Urine microalbumin. Due on due Goal Foot exam. Due on 0 due Goal ECG. Due on due Goal H&P. Due on due Goal Diabetes screening. Due on due Goal Tobacco cessation counseling completed Goal Dietary management education , guidance, and counseling completed Goal Colonoscopy. Due on due Goal Urine microalbumin. Due on due Goal Dilated eye exam. Due on Nov due Goal Dental exam. Due on due Goal Pneumococcal vaccine. Due on due Goal Foot exam. Due on 0 due Goal Diabetes screening. Due on due Goal Breast exam. Due on 020 due Goal APPLICATION TRAINER exam. Due on due Goal Depression screening. Due on due Goal Tdap. Due on due Goal Mammogram. Due on 0 due Goal H&P. Due on due Goal Influenza Vaccine. Due on due Goal ECG. Due on due Goal Tobacco cessation counseling completed Goal Foot exam. Due on 0 due Goal Pneumococcal vaccine. Due on due Goal Mammogram. Due on 9 due Goal Dental exam. Due on 019 due Goal Depression screening. Due on due Goal ECG. Due on due Goal Urine microalbumin. Due on due Goal Influenza Vaccine. Due on due Goal Dilated eye exam. Due on Oct due Goal Colonoscopy. Due on 025 due Goal Diabetes screening. Due on due Goal Breast exam. Due on 019 due Goal Tdap. Due on due Goal H&P. Due on due Goal APPLICATION TRAINER exam. Due on due Goal Dental exam. Due on 019 due Goal Urine microalbumin. Due on N due Goal Foot exam. Due on 0 due Goal Dilated eye exam. Due on Sep due Goal Pneumococcal vaccine. Due on due Goal Depression screening. Due on due Goal ECG. Due on due Goal APPLICATION TRAINER exam. Due on due Goal Breast exam. Due on due Goal Tdap. Due on due Goal Colonoscopy. Due on due Goal Diabetes screening. Due on A due Goal H&P. Due on due Goal Mammogram. Due on 9 due Goal Influenza Vaccine. Due on due Goal Dietary management education , guidance, and counseling completed Goal Tobacco cessation counseling completed Goal Breast exam. Due on due Goal H&P. Due on due Goal Influenza Vaccine. Due on due Goal Colonoscopy. Due on due Goal Mammogram. Due on 9 due Goal Dental exam. Due on due Goal Dilated eye exam. Due on Aug due Goal ECG. Due on due Goal Diabetes screening. Due on A due Goal Urine microalbumin. Due on due Goal Tdap. Due on due Goal APPLICATION TRAINER exam. Due on due Goal Depression screening. Due on due Goal Foot exam. Due on 0 due Goal Pneumococcal vaccine. Due on due Goal Tobacco cessation counseling completed Goal Dietary management education , guidance, and counseling completed Goal Mammogram. Due on 9 due Goal Breast exam. Due on due Goal Pneumococcal vaccine. Due on due Goal ECG. Due on due Goal Influenza Vaccine. Due on Oc due Goal Dental exam. Due on due Goal H&P. Due on due Goal APPLICATION TRAINER exam. Due on due Goal Diabetes screening. Due on A due Goal Tdap. Due on due Goal Dilated eye exam. Due on Aug due Goal Urine microalbumin. Due on O due Goal Colonoscopy. Due on 025 due Goal Depression screening. Due on due Goal Foot exam. Due on 0 due Goal Tobacco cessation counseling completed Goal Dietary management education , guidance, and counseling completed Goal APPLICATION TRAINER exam. Due on due Goal Tdap. Due on due Goal ECG. Due on due Goal Influenza Vaccine. Due on Au due Goal Dental exam. Due on due Goal Dilated eye exam. Due on Jun due Goal Pneumococcal vaccine. Due on due Goal Urine microalbumin. Due on A due Goal Foot exam. Due on 0 due Goal Depression screening. Due on due Goal Colonoscopy. Due on due Goal Diabetes screening. Due on A due Goal H&P. Due on due Goal Breast exam. Due on due Goal Mammogram. Due on 9 due Goal Tobacco cessation counseling completed Goal Dietary management education , guidance, and counseling completed Goal Urine microalbumin. Due on due Goal Colonoscopy. Due on due Goal Influenza Vaccine. Due on due Goal Dental exam. Due on due Goal Depression screening. Due on due Goal Pneumococcal vaccine. Due on due Goal APPLICATION TRAINER exam. Due on due Goal Dilated eye exam. Due on May due Goal Tdap. Due on due Goal Mammogram. Due on 9 due Goal Breast exam. Due on due Goal Foot exam. Due on 9 due Goal ECG. Due on due Goal H&P. Due on due Goal Diabetes screening. Due on A due Goal Tobacco cessation counseling completed Goal Dietary management education , guidance, and counseling completed Goal Dental exam. Due on due Goal Tdap. Due on due Goal Mammogram. Due on 9 due Goal Breast exam. Due on due Goal H&P. Due on due Goal Colonoscopy. Due on due Goal Foot exam. Due on 9 due Goal Urine microalbumin. Due on due Goal Depression screening. Due on due Goal APPLICATION TRAINER exam. Due on due Goal Influenza Vaccine. Due on due Goal Dilated eye exam. Due on Apr due Goal Pneumococcal vaccine. Due on due Goal ECG. Due on due Goal Diabetes screening. Due on A due Goal Tobacco cessation counseling completed Goal Dietary management education , guidance, and counseling completed Goal Dental exam. Due on due Goal Foot exam. Due on 9 due Goal APPLICATION TRAINER exam. Due on due Goal Depression screening. Due on due Goal Breast exam. Due on due Goal Mammogram. Due on 9 due Goal Tdap. Due on due Goal Influenza Vaccine. Due on due Goal Colonoscopy. Due on 025 due Goal Diabetes screening. Due on A due Goal Pneumococcal vaccine. Due on due Goal ECG. Due on due Goal H&P. Due on due Goal Dilated eye exam. Due on March due Goal Urine microalbumin. Due on due Goal Tobacco cessation counseling completed Goal Dietary management education , guidance, and counseling completed Goal Dilated eye exam. Due on March due Goal Pneumococcal vaccine. Due on due Goal Urine microalbumin. Due on due Goal Dental exam. Due on due Goal Influenza Vaccine. Due on due Goal Depression screening. Due on due Goal Foot exam. Due on 9 due Goal Mammogram. Due on due Goal ECG. Due on due Goal Breast exam. Due on due Goal Diabetes screening. Due on A due Goal APPLICATION TRAINER exam. Due on due Goal Colonoscopy. Due on due Goal Tdap. Due on due Goal H&P. Due on due Goal Tobacco cessation counseling completed Goal Dietary management education , guidance, and counseling completed Goal Urine microalbumin. Due on due Goal Colonoscopy. Due on due Goal ECG. Due on due Goal Foot exam. Due on 9 due Goal Pneumococcal vaccine. Due on due Goal Breast exam. Due on due Goal Dental exam. Due on due Goal Influenza Vaccine. Due on due Goal Dilated eye exam. Due on Jan due Goal Diabetes screening. Due on A due Goal Tdap. Due on due Goal Mammogram. Due on 9 due Goal H&P. Due on due Goal APPLICATION TRAINER exam. Due on due Goal Depression screening. Due on due Goal Breast exam. Due on due Goal Depression screening. Due on due Goal Colonoscopy. Due on 025 due Goal APPLICATION TRAINER exam. Due on due Goal Dental exam. Due on due Goal Dilated eye exam. Due on Jan due Goal H&P. Due on due Goal Foot exam. Due on 9 due Goal Pneumococcal vaccine. Due on due Goal Urine microalbumin. Due on A due Goal Mammogram. Due on 9 due Goal ECG. Due on due Goal Tdap. Due on due Goal Diabetes screening. Due on A due Goal Influenza Vaccine. Due on due Goal Dietary management education , guidance, and counseling completed Goal Tobacco cessation counseling completed Goal Tdap. Due on due Goal Foot exam. Due on 9 due Goal APPLICATION TRAINER exam. Due on due Goal Mammogram. Due on due Goal Urine microalbumin. Due on A due Goal Dental exam. Due on due Goal Dilated eye exam. Due on Jan due Goal Diabetes screening. Due on A due Goal Depression screening. Due on due Goal Pneumococcal vaccine. Due on due Goal H&P. Due on due Goal Colonoscopy. Due on due Goal Influenza Vaccine. Due on due Goal Breast exam. Due on due Goal ECG. Due on due Goal Mammogram. Due on 9 due Goal Tdap. Due on due Goal Depression screening. Due on due Goal Diabetes screening. Due on due Goal APPLICATION TRAINER exam. Due on due Goal Breast exam. Due on due Goal ECG. Due on due Goal Colonoscopy. Due on due Goal H&P. Due on due Goal Foot exam. Due on 9 due Goal Urine microalbumin. Due on due Goal Dilated eye exam. Due on Dec due Goal Pneumococcal vaccine. Due on due Goal Dental exam. Due on due Goal Influenza Vaccine. Due on due Goal Tobacco cessation counseling completed Goal Dietary management education , guidance, and counseling completed Goal APPLICATION TRAINER exam. Due on due Goal Depression screening. Due on due Goal Colonoscopy. Due on due Goal Breast exam. Due on due Goal ECG. Due on due Goal H&P. Due on due Goal Urine microalbumin. Due on M due Goal Influenza Vaccine. Due on Ma due Goal Foot exam. Due on due Goal Mammogram. Due on due Goal Diabetes screening. Due on A due Goal Dental exam. Due on due Goal Dilated eye exam. Due on Dec due Goal Tdap. Due on due Goal Pneumococcal vaccine. Due on due Goal Tdap. Due on due Goal Diabetes screening. Due on A due Goal Foot exam. Due on 9 due Goal Urine microalbumin. Due on due Goal Influenza Vaccine. Due on due Goal Breast exam. Due on due Goal Depression screening. Due on due Goal Colonoscopy. Due on 025 due Goal H&P. Due on due Goal Dilated eye exam. Due on Dec due Goal APPLICATION TRAINER exam. Due on due Goal ECG. Due on due Goal Mammogram. Due on 9 due Goal Pneumococcal vaccine. Due on due Goal Dental exam. Due on due Goal Tobacco cessation counseling completed Goal Dietary management education , guidance, and counseling completed Goal Breast exam. Due on due Goal APPLICATION TRAINER exam. Due on due Goal Diabetes screening. Due on due Goal Tdap. Due on due Goal H&P. Due on due Goal Dental exam. Due on due Goal Mammogram. Due on 9 due Goal Depression screening. Due on due Goal Dilated eye exam. Due on Dec due Goal Influenza Vaccine. Due on due Goal Colonoscopy. Due on due Goal Urine microalbumin. Due on due Goal Foot exam. Due on 9 due Goal Pneumococcal vaccine. Due on due Goal ECG. Due on due Goal Dietary management education , guidance, and counseling completed Goal Tobacco cessation counseling completed Goal Foot exam. Due on 9 due Goal Colonoscopy. Due on due Goal Mammogram. Due on due Goal Influenza Vaccine. Due on due Goal ECG. Due on due Goal Depression screening. Due on due Goal APPLICATION TRAINER exam. Due on due Goal Dental exam. Due on due Goal Pneumococcal vaccine. Due on due Goal Breast exam. Due on due Goal H&P. Due on due Goal Dilated eye exam. Due on Dec due Goal Tdap. Due on due Goal Urine microalbumin. Due on due Goal Diabetes screening. Due on due Goal Tobacco cessation counseling completed Goal Breast exam. Due on due Goal Pneumococcal vaccine. Due on due Goal Tdap. Due on due Goal Influenza Vaccine. Due on due Goal APPLICATION TRAINER exam. Due on due Goal Dental exam. Due on due Goal ECG. Due on due Goal Mammogram. Due on 9 due Goal Dilated eye exam. Due on Nov due Goal Urine microalbumin. Due on due Goal H&P. Due on due Goal Foot exam. Due on 9 due Goal Colonoscopy. Due on due Goal Depression screening. Due on due Goal Diabetes screening. Due on due Goal Tobacco cessation counseling completed Goal Dietary management education , guidance, and counseling completed Goal Mammogram. Due on 9 due Goal Influenza Vaccine. Due on due Goal Dental exam. Due on due Goal ECG. Due on due Goal Colonoscopy. Due on due Goal Diabetes screening. Due on due Goal Depression screening. Due on due Goal H&P. Due on due Goal Breast exam. Due on due Goal APPLICATION TRAINER exam. Due on due Goal Tdap. Due on due Goal Dilated eye exam. Due on Nov due Goal Foot exam. Due on 9 due Goal Urine microalbumin. Due on due Goal Pneumococcal vaccine. Due on due Goal BMP fasting. Due on due Goal H&P. Due on due Goal Tdap. Due on due Goal Mammogram. Due on due Goal Foot exam. Due on due Goal Breast exam. Due on due Goal Urine microalbumin. Due on due Goal Dilated eye exam. Due on March due Goal Dental exam. Due on due Goal Pneumococcal vaccine. Due on due Goal ECG. Due on due Goal APPLICATION TRAINER exam. Due on due Goal Influenza Vaccine. Due on due Goal FOBT. Due on due Goal Influenza Vaccine. Due on due Goal ECG. Due on due Goal Tdap. Due on due Goal BMP fasting. Due on due Goal FOBT. Due on due Goal Mammogram. Due on due Goal APPLICATION TRAINER exam. Due on due Goal Dental exam. Due on due Goal Urine microalbumin. Due on A due Goal Foot exam. Due on 8 due Goal Pneumococcal vaccine. Due on due Goal Dilated eye exam. Due on Jan due Goal Breast exam. Due on due Goal Urinalysis. Due on 14 due Goal H&P. Due on due Goal ECG. Due on due Goal Pneumococcal vaccine. Due on due Goal Foot exam. Due on 8 due Goal Dental exam. Due on 018 due Goal Mammogram. Due on 8 due Goal Urine microalbumin. Due on M due Goal Dilated eye exam. Due on Dec due Goal Influenza Vaccine. Due on due Goal Tdap. Due on due Goal Breast exam. Due on 018 due Goal FOBT. Due on due Goal Urinalysis. Due on 14 due Goal BMP fasting. Due on 014 due Goal H&P. Due on due Goal APPLICATION TRAINER exam. Due on due Goal FOBT. Due on due Goal H&P. Due on due Goal Influenza Vaccine. Due on due Goal ECG. Due on due Goal APPLICATION TRAINER exam. Due on due Goal Dental exam. Due on due Goal Mammogram. Due on 8 due Goal Breast exam. Due on due Goal Foot exam. Due on 8 due Goal Urine microalbumin. Due on due Goal Urinalysis. Due on 14 due Goal Pneumococcal vaccine. Due on due Goal BMP fasting. Due on 014 due Goal Dilated eye exam. Due on Dec due Goal Tdap. Due on due Goal Tobacco cessation counseling completed Goal ECG. Due on due Goal BMP fasting. Due on 014 due Goal FOBT. Due on due Goal H&P. Due on due Goal APPLICATION TRAINER exam. Due on due Goal Dilated eye exam. Due on Dec due Goal Mammogram. Due on 8 due Goal Influenza Vaccine. Due on due Goal Foot exam. Due on 8 due Goal Pneumococcal vaccine. Due on due Goal Breast exam. Due on 018 due Goal Urinalysis. Due on 14 due Goal Urine microalbumin. Due on due Goal Tdap. Due on due Goal Dental exam. Due on due Goal Colonoscopy. Due on due Goal APPLICATION TRAINER exam. Due on due Goal Dilated eye exam. Due on Aug due Goal Pneumococcal vaccine. Due on due Goal Foot exam. Due on due Goal Urine microalbumin. Due on O due Goal H&P. Due on due Goal Dental exam. Due on due Goal Mammogram. Due on due Goal Breast exam. Due on due Goal FOBT. Due on due Goal Colonoscopy. Due on due Goal BMP fasting. Due on due Goal Tdap. Due on due Goal Urinalysis. Due on 14 due Goal Influenza Vaccine. Due on due Goal ECG. Due on due Goal Dental exam. Due on due Goal BMP fasting. Due on due Goal FOBT. Due on due Goal Colonoscopy. Due on due Goal Tdap. Due on due Goal Urine microalbumin. Due on due Goal Foot exam. Due on due Goal Breast exam. Due on due Goal Urinalysis. Due on 14 due Goal Mammogram. Due on due Goal APPLICATION TRAINER exam. Due on due Goal Pneumococcal vaccine. Due on due Goal H&P. Due on due Goal Influenza Vaccine. Due on due Goal ECG. Due on due Goal Dilated eye exam. Due on Jul due Goal Tobacco cessation counseling completed Goal Urine microalbumin. Due on due Goal Dilated eye exam. Due on Jun due Goal Foot exam. Due on due Goal Influenza Vaccine. Due on due Goal Pneumococcal vaccine. Due on due Goal Colonoscopy. Due on due Goal FOBT. Due on due Goal ECG. Due on due Goal Urinalysis. Due on 14 due Goal Mammogram. Due on due Goal APPLICATION TRAINER exam. Due on due Goal BMP fasting. Due on due Goal Breast exam. Due on due Goal Dental exam. Due on due Goal H&P. Due on due Goal Tdap. Due on due Goal Tobacco cessation counseling completed Goal Breast exam. Due on due Goal Colonoscopy. Due on due Goal APPLICATION TRAINER exam. Due on due Goal Urinalysis. Due on 14 due Goal BMP fasting. Due on due Goal Pap/HPV testing. Due on due Goal Mammogram. Due on 7 due Goal TD Vaccine. Due on 17 due Goal H&P. Due on due Goal Tdap. Due on due Goal Influenza Vaccine. Due on due Goal Sigmoidoscopy. Due on due Goal FOBT. Due on due Goal Tobacco cessation counseling completed Goal FOBT. Due on due Goal Urinalysis. Due on 14 due Goal Sigmoidoscopy. Due on due Goal Colonoscopy. Due on due Goal Influenza Vaccine. Due on due Goal Mammogram. Due on 6 due Goal Tdap. Due on due Goal Pap/HPV testing. Due on due Goal TD Vaccine. Due on 16 due Goal Breast exam. Due on due Goal APPLICATION TRAINER exam. Due on due Goal H&P. Due on due Goal BMP fasting. Due on due Goal Tobacco cessation counseling completed Goal FOBT. Due on due Goal Breast exam. Due on due Goal Colonoscopy. Due on due Goal Influenza Vaccine. Due on due Goal Urinalysis. Due on 14 due Goal BMP fasting. Due on 014 due Goal Tdap. Due on due Goal H&P. Due on due Goal Mammogram. Due on 6 due Goal APPLICATION TRAINER exam. Due on due Goal Urinalysis. Due on 14 due Goal APPLICATION TRAINER exam. Due on due Goal H&P. Due on due Goal Influenza Vaccine. Due on due Goal Tdap. Due on due Goal Lipid Panel. Due on due Goal Pap/HPV testing. Due on due Goal Breast exam. Due on due Goal Sigmoidoscopy. Due on due Goal Colonoscopy. Due on due Goal FOBT. Due on due Goal Mammogram. Due on 6 due Goal BMP fasting. Due on due Goal TD Vaccine. Due on 16 due Goal Colonoscopy. Due on due Goal FOBT. Due on due Goal Urinalysis. Due on 14 due Goal H&P. Due on due Goal TD Vaccine. Due on 16 due Goal Pap/HPV testing. Due on due Goal Lipid Panel. Due on due Goal Breast exam. Due on due Goal Tdap. Due on due Goal Sigmoidoscopy. Due on due Goal Influenza Vaccine. Due on due Goal BMP fasting. Due on due Goal APPLICATION TRAINER exam. Due on due Goal Mammogram. Due on due Goal TD Vaccine. Due on 16 due Goal Tdap. Due on due Goal BMP fasting. Due on due Goal Breast exam. Due on due Goal Pap/HPV testing. Due on due Goal H&P. Due on due Goal Mammogram. Due on due Goal FOBT. Due on due Goal Sigmoidoscopy. Due on due Goal Colonoscopy. Due on due Goal APPLICATION TRAINER exam. Due on due Goal Influenza Vaccine. Due on due Goal Lipid Panel. Due on 015 due Goal Urinalysis. Due on 14 due Goal Tdap. Due on due Goal Colonoscopy. Due on due Goal Urinalysis. Due on 14 due Goal Lipid Panel. Due on due Goal Influenza Vaccine. Due on due Goal BMP fasting. Due on due Goal Mammogram. Due on due Goal Breast exam. Due on due Goal Pap/HPV testing. Due on due Goal H&P. Due on due Goal FOBT. Due on due Goal Sigmoidoscopy. Due on due Goal APPLICATION TRAINER exam. Due on due Goal TD Vaccine. Due on 16 due Goal Pap/HPV testing. Due on due Goal Breast exam. Due on 016 due Goal Urinalysis. Due on 14 due Goal FOBT. Due on due Goal Mammogram. Due on 6 due Goal Colonoscopy. Due on 016 due Goal TD Vaccine. Due on 16 due Goal Lipid Panel. Due on 015 due Goal APPLICATION TRAINER exam. Due on due Goal BMP fasting. Due on 014 due Goal Sigmoidoscopy. Due on due Goal Influenza Vaccine. Due on due Goal H&P. Due on due Goal Tdap. Due on due Goal Tdap. Due on due Goal Mammogram. Due on 6 due Goal APPLICATION TRAINER exam. Due on due Goal FOBT. Due on due Goal Lipid Panel. Due on 015 due Goal TD Vaccine. Due on 16 due Goal Colonoscopy. Due on 016 due Goal Breast exam. Due on 016 due Goal Urinalysis. Due on 14 due Goal H&P. Due on due Goal BMP fasting. Due on due Goal Pap/HPV testing. Due on due Goal Sigmoidoscopy. Due on due Goal Influenza Vaccine. Due on due Goal BMP fasting. Due on due Goal H&P. Due on due Goal Breast exam. Due on due Goal Pap/HPV testing. Due on due Goal Tdap. Due on due Goal Lipid Panel. Due on due Goal Mammogram. Due on 6 due Goal Influenza Vaccine. Due on due Goal APPLICATION TRAINER exam. Due on due Goal TD Vaccine. Due on 16 due Goal Urinalysis. Due on 14 due Goal Colonoscopy. Due on due Goal Sigmoidoscopy. Due on due Goal FOBT. Due on due Goal BMP fasting. Due on 014 due Goal TD Vaccine. Due on 16 due Goal Lipid Panel. Due on due Goal Mammogram. Due on 6 due Goal Colonoscopy. Due on due Goal FOBT. Due on due Goal Breast exam. Due on due Goal APPLICATION TRAINER exam. Due on due Goal Urinalysis. Due on 14 due Goal H&P. Due on due Goal Tdap. Due on due Goal Influenza Vaccine. Due on due Goal Sigmoidoscopy. Due on due Goal Pap/HPV testing. Due on due Goal APPLICATION TRAINER exam. Due on due Goal Influenza Vaccine. Due on due Goal H&P. Due on due Goal FOBT. Due on due Goal TD Vaccine. Due on 16 due Goal Urinalysis. Due on 14 due Goal Mammogram. Due on 6 due Goal BMP fasting. Due on 014 due Goal Tdap. Due on due Goal Breast exam. Due on 016 due Goal Sigmoidoscopy. Due on due Goal Lipid Panel. Due on 015 due Goal Pap/HPV testing. Due on due Goal Colonoscopy. Due on 016 due Goal Mammogram. Due on 5 due Goal Urinalysis. Due on 14 due Goal BMP fasting. Due on 014 due Goal Tdap. Due on due Goal Pap/HPV testing. Due on due Goal APPLICATION TRAINER exam. Due on due Goal H&P. Due on due Goal TD Vaccine. Due on 15 due Goal Breast exam. Due on due Goal Influenza Vaccine. Due on due Goal Depression screening. Due on due Goal FOBT. Due on due Goal Sigmoidoscopy. Due on due Goal Lipid Panel. Due on due Goal Colonoscopy. Due on due Goal H&P. Due on due Goal Influenza Vaccine. Due on due Goal Tdap. Due on due Goal BMP fasting. Due on due Goal APPLICATION TRAINER exam. Due on due Goal Sigmoidoscopy. Due on due Goal Urinalysis. Due on 14 due Goal Mammogram. Due on 5 due Goal Depression screening. Due on due Goal TD Vaccine. Due on 15 due Goal FOBT. Due on due Goal Colonoscopy. Due on due Goal Pap/HPV testing. Due on due Goal Breast exam. Due on due Goal Lipid Panel. Due on due Goal Pap/HPV testing. Due on due Goal Tdap. Due on due Goal APPLICATION TRAINER exam. Due on due Goal FOBT. Due on due Goal H&P. Due on due Goal Influenza Vaccine. Due on due Goal Urinalysis. Due on 14 due Goal Breast exam. Due on due Goal Lipid Panel. Due on due Goal Depression screening. Due on due Goal TD Vaccine. Due on 15 due Goal Mammogram. Due on 5 due Goal Colonoscopy. Due on due Goal Sigmoidoscopy. Due on due Goal BMP fasting. Due on due Goal Breast exam. Due on due Goal Tdap. Due on due Goal Influenza Vaccine. Due on due Goal H&P. Due on due Goal FOBT. Due on due Goal Mammogram. Due on due Goal Lipid Panel. Due on due Goal APPLICATION TRAINER exam. Due on due Goal Colonoscopy. Due on due Goal Pap/HPV testing. Due on due Goal BMP fasting. Due on due Goal Urinalysis. Due on 14 due Goal Sigmoidoscopy. Due on due Goal Depression screening. Due on due Goal TD Vaccine. Due on due Goal Depression screening. Due on due Goal Urinalysis. Due on 14 due Goal Influenza Vaccine. Due on due Goal Tdap. Due on due Goal Sigmoidoscopy. Due on due Goal TD Vaccine. Due on 15 due Goal APPLICATION TRAINER exam. Due on due Goal BMP fasting. Due on 014 due Goal H&P. Due on due Goal Mammogram. Due on 5 due Goal Colonoscopy. Due on due Goal Breast exam. Due on due Goal FOBT. Due on due Goal Pap/HPV testing. Due on due Goal Sigmoidoscopy. Due on due Goal Depression screening. Due on due Goal Urinalysis. Due on 14 due Goal Mammogram. Due on 5 due Goal H&P. Due on due Goal Breast exam. Due on due Goal APPLICATION TRAINER exam. Due on due Goal TD Vaccine. Due on 15 due Goal Influenza Vaccine. Due on due Goal Colonoscopy. Due on due Goal FOBT. Due on due Goal BMP fasting. Due on 014 due Goal Pap/HPV testing. Due on due Goal Tdap. Due on due Goal APPLICATION TRAINER exam. Due on due Goal Mammogram. Due on 5 due Goal Colonoscopy. Due on 015 due Goal FOBT. Due on due Goal TD Vaccine. Due on 15 due Goal Pap/HPV testing. Due on due Goal Depression screening. Due on due Goal H&P. Due on due Goal Urinalysis. Due on 14 due Goal Influenza Vaccine. Due on due Goal BMP fasting. Due on due Goal Sigmoidoscopy. Due on due Goal Breast exam. Due on due Goal Tdap. Due on due Goal Breast exam. Due on due Goal TD Vaccine. Due on 15 due Goal Sigmoidoscopy. Due on due Goal FOBT. Due on due Goal Pap/HPV testing. Due on due Goal Depression screening. Due on due Goal Urinalysis. Due on 14 due Goal Mammogram. Due on 5 due Goal H&P. Due on due Goal APPLICATION TRAINER exam. Due on due Goal Tdap. Due on due Goal Colonoscopy. Due on due Goal Influenza Vaccine. Due on due Goal BMP fasting. Due on due Goal Breast exam. Due on due Goal BMP fasting. Due on due Goal Sigmoidoscopy. Due on due Goal Colonoscopy. Due on 015 due Goal TD Vaccine. Due on 15 due Goal H&P. Due on due Goal Influenza Vaccine. Due on due Goal Urinalysis. Due on 14 due Goal Depression screening. Due on due Goal Tdap. Due on due Goal APPLICATION TRAINER exam. Due on due Goal Pap/HPV testing. Due on due Goal Mammogram. Due on 5 due Goal FOBT. Due on due Goal Urinalysis. Due on 14 due Goal FOBT. Due on due Goal Pap/HPV testing. Due on due Goal Tdap. Due on due Goal Depression screening. Due on due Goal Colonoscopy. Due on 015 due Goal Sigmoidoscopy. Due on due Goal Mammogram. Due on 5 due Goal TD Vaccine. Due on 15 due Goal H&P. Due on due Goal Breast exam. Due on 015 due Goal BMP fasting. Due on 014 due Goal Influenza Vaccine. Due on due Goal APPLICATION TRAINER exam. Due on due Goal Tobacco cessation counseling completed Goal Tobacco cessation counseling completed Goal Tobacco cessation counseling completed Referral Ordered: Orthopedic Surgery (related to Carpal tunnel syndrome, left) [id number]-[id number] Ordered: Gastroenterology (related to Gastrointestinal hemorrhage associated with gastric ulcer) qeqsnbmNod-[id number] Ordered: Neurology (related to Dizziness of unknown cause) iljjkhhMtk-[id number] Ordered: Referrals: Neurology [id number]-[id number] Ordered: CT Neck Spine W/O Dye bvihmuvQnc-[id number] Ordered: CT Head/Brain W/O & W/Dye qbpsnarYmf-[id number] Ordered: ECG MONITOR/REPORT, 24 HRS Appointment date/timeframe: 08/16/2019 [id number]-[id number] Ordered: Gastroenterology (related to GERD w/o esophagitis) wqmlhwmTzy-[id number] Ordered: Referrals: Gastroenterology okcqofdNju-[id number] Ordered: US Exam, Breast(s) Left Appointment date/timeframe: 08/02/2019 sbqpiiyOuk-[id number] Ordered: BREAST ULTRASOUND GUIDED BIOPSY Left djzogfhOas-[id number] Ordered: US EXAM, PELVIC, COMPLETE Appointment date/timeframe: 01/04/2019 sznmovkXyh-[id number] Ordered: US Exam, Breast(s) Appointment date/timeframe: 01/04/2019 trgcattTbd-[id number] Ordered: Referrals: Surgery Appointment date/timeframe: 01/17/2019 [id number]-[id number] Ordered: DX MAMMO INCL CAD BI Appointment date/timeframe: 01/04/2019 bitmpdtFip-[id number] Ordered: COLONOSCOPY AND BIOPSY juwevoqZta-[id number] Referred To: Physical Therapy Ordered: Referrals: Physical Therapy. 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 [facility]. Location: [facility]. Consult Appointment date/timeframe: 09/03/2017 [id number] Ordered: Orthopedic Surgery (related to Cervicalgia) trprjukEad-[id number] Ordered: X-Ray Exam Of Knee 3 Views Bilateral vefmocyBsl-[id number] Ordered: Otolaryngology (related to Vertigo) cdbdnuvPkv-[id number] Ordered: Referrals: Otolaryngology paeqlwkRcm-[id number] Ordered: Orthopedic Surgery (related to Pain in left shoulder) mqxzjbiGoc-[id number] Ordered: Referrals: Orthopedic Surgery. Evaluate and treat Appointment date/timeframe: 10/15/2015 xtdinqoBgj-[id number] Ordered: Orthopedic Surgery (related to Cervicalgia) iofmrqpXgs-[id number] Ordered: Orthopedic Surgery (related to Spinal stenosis in cervical region) hhddwlaXzt-[id number] Ordered: Orthopedic Surgery (related to Trigger finger) nqxhapjAmh-[id number] Ordered: Referrals: Orthopedic Surgery gpircoaMzt-[id number] Ordered: referred to Clinical Nurse Specialist LABOR DELIVERY RN today (related to Attention to colostomy) wmymhygUhj-[id number] Ordered: Urology. qgseuazVwi-[id number] Order: Lab OrderGLYCOSYLATED HEMOGLOBIN TEST ([id number]), Collected on: , Sent on: [id number] Order: Lab OrderCompliance Drug Analysis, Ur ([id number]), Collected on: , Sent on: [id number] Order: Lab OrderUrine, Naloxone Urine Cofirm ([id number]), Collected on: , Sent on: [id number] History Of Present Illness Encounter Date Complaint History Of Prese nt Illness med refills pt. here for med refills and labs reviewed from a couple weeks ago. Bronchitis acting up-been coughing up cloudy (phlegm). Cough is a little better, but I still have coughing fits now and then still. Denies other problems.Carmen Centeno RN ,above was reviewed and agreed with MLP lab draw Pt here for lab draw. Venipuncture successful on first attempt in her R wrist. PAULA Chen Med Refills Pt here today fo r medication refills. Pt given letter today informing him Dr. Diane leaving our office & last day was 09/25. No medications or apts will be made after this day Pt signed letter and verbalized understanding. OARRS completed, last filled Lyrica 08/11, Ativan 08/05, Flexeril 07/29 & Keaton 07/26TGrodi AIRPORT ENGINEER fatigue This is an initi al visit. The symptoms have worsened. The patient presents with arthralgia, difficulty concentrating, fatigue and somnolence. The patient does not present with abdominal pain, anorexia, fever or rash. Risk factors include anemia and thyroid disease. The patient denies any aggravating factors. Interventions the patient has tried have not provided any relief. The fatigue is associated with change in sleep cycle and loss of interest. The patient denies any change in appetite, chills, dyspnea, flank pain, generalized weakness, hoarseness, increased abdominal girth, jaundice, pallor, pruritus and weight gain. med refill Pt here for medi cation refills. Pt c/o L hand weakness, c/o dropping things, states she has had carpal tunnel surgery in past and wears a brace sometimes. Pt denies any other issue or concern. KAYLEN Chen states that the surgery was for a bone fracture and there is also a plate in there. ,above was reviewed and agreed with MLP diabetes The problem is s table. Risk factors include: over age [age] years old. Patient is compliant with using medication, follow-up, and using education materials. Managing with: Diet and Oral medications. Comorbidity: Hypertension. Associated symptoms include: burning of extremities, constant hunger, increased fatigue and weight gain. Pertinent negatives include dyspnea, foot ulcers, heartburn and hypoglycemic episodes. A1C & Med Refills Pt here today for A1C and medication refills. Pt states she has been having trouble with breathing, Thinks its been due to putting on so much weight. Wants a diet pill . OARRS completed, last filled Lorazepam 06/06, Lyrica 06/06, Keaton 06/05TGrodi AIRPORT ENGINEER Med Refills Pt here today fo r medication refills. PT states she fell Thursday and her L hand is swollen. Denies any pain. OARRS completed, last filled Fabricio Scanlon 05/08TGrodjuan manuel RUCHI Musculoskeletal pain Onset: sudd en. It occurs constantly and is improving. Location: left wrist. There is no radiation. Context: there is an injury. Trauma type: fall, occurred in a public building, 05 Days ago. The pain is aggravated by movement. The pain is relieved by rest. Associated symptoms include bruising and swelling. Pertinent negatives include crepitus, decreased mobility, difficulty initiating sleep, joint instability, joint tenderness, locking, nocturnal awakening, nocturnal pain, numbness and weakness. Hand Dominance: left. fatigue This is a follow up visit. The symptom(s) began gradually. The symptoms have worsened. The patient presents with abdominal pain, fatigue and muscle weakness. The patient does not present with arthralgia, back pain, difficulty concentrating or fever. The patient denies any aggravating factors. Interventions the patient has tried have not provided any relief. The fatigue is associated with change in appetite, increased abdominal girth and weight gain. The patient denies any chills, change in sleep cycle, constipation, dyspnea, flank pain, hoarseness, loss of interest, melena and pruritus. med refill Pt here for medi cation refills. Pt denies any new issues or concerns. OARRS completed, last filled Lorazepam 04/10/21, Hydrocodone 04/10/21 and Cyclobenazaprine on 04/23/21. PAULA Chen Memory loss Onset was and it was gradual. Severity level is mild. Context: spontaneous. The intervention and testing comprises of: Medication taken: Anti-depressants with poor results; lab test(s) for Urinalysis. Associated symptoms include dizziness and sleep disturbances. Pertinent negatives include agitation, ataxia, behavioral changes, bladder incontinence, bowel dysfunction, chorea, confusion, falling, fever, gait disturbances, hallucinations, mood swings, neck stiffness, paresthesia, personality change, restlessness, tingling and tremors. med refill Pt here for medi cation refills. Pt c/o memory loss, states she noticed memory issues after hospital stay. Pt also c/o urinary urgency and burning that started a few days ago. Pt denies any other issues or concerns. PAULA Chen med Refills Pt here today fo r medication refills. Pt states she checked her INR the other day and it was 2.6. Pt states she has been very tired lately. OARRS completed, last filled Ativan, 02/13, Lyrica 02/13, & norco 02/06TGrodi AIRPORT ENGINEER fatigue This is an initi al visit. The symptom(s) began suddenly. The symptoms have worsened. The patient presents with abdominal pain, difficulty concentrating and fatigue. The patient does not present with anorexia, arthralgia, cough, fever, headache, rash or vomiting. Risk factors include anemia and depression. The patient denies any aggravating factors. Interventions the patient has tried have not provided any relief. The fatigue is associated with generalized weakness, lightheadedness and melena. The patient denies any change in appetite, chills, change in sleep cycle, constipation, diarrhea, dyspnea, flank pain, hematemesis, hematochezia and loss of interest. Additional information: Pt states it feels like the last time she was anemic. med refill Pt here for medi cation refills. Pt c/o chest congestion with dry cough, states it started 3 days ago, denies any other symptoms. PAULA Chen Cough Onset: gradual. The patient describes the cough as hacking and productive (of brown sputum). It occurs persistently. The problem has become gradually worse. Context: COPD. Symptoms are aggravated by exercise and lying down. Relieving factors include bronchodilators. Associated symptoms include cough, dyspnea, dyspnea on exertion, fatigue, heartburn, hoarseness, nasal congestion, post-nasal drainage, sinus pressure, sore throat and wheezing. Pertinent negatives include chills, epistaxis, fever, hemoptysis, night sweats and pleuritic pain. diabetes The problem is s table. Risk factors include: over age [age] years old. Patient is compliant with using medication, follow-up, and using education materials. Managing with: Oral medications. Comorbidity: Hypertension. Associated symptoms include: heartburn. Pertinent negatives include blurred vision, chest pain, dental disease, diarrhea, dyspnea, frequent infections, urinary frequency and weight gain. A1C Pt here today fo r A1C check and medication refills. OARRS completed, last filled Ativan 12/19, Lyrica 12/17, Flexeril 12/02 & Keaton 11/20TGrodi LPNPt states she is just tired, pt son who she lives with has his son that is 3 months old and not sleeping thought the [facility] Med Refills Pt here today fo r medication refills. Pt states she is not urinating much during the day. Pt states she maybe goes 4 times a day. Pt states she is drinking alot of fluids. Pt states she was having these same symptoms last time and had a GI bleed. Pt would like an order for blood work. OARRS completed, last filled Ativan 10/23, Keaton 10/31 & Flexeril 10/31TGrodi AIRPORT ENGINEER GERD The severity of the problem is moderate. The problem has worsened. The symptoms are recurring. The location is epigastric. The patient reports radiation to the neck. The quality of the pain is burning. These symptoms occur after meals. The patient denies aggravating factors. Symptoms are not relieved by analgesics or antacids. Associated symptoms include back pain, bloating, diarrhea and flank pain. Pertinent negatives include blood in stool, change in appetite, constipation, dyspnea, fever, flatulence, heartburn, jaundice, myalgia, nausea and vomiting. med refill Pt here for medi cation refills. Pt concerned about 6lb weight gain over the last month, states she might be bleeding again d/t stomach ulcers. Pt thinks she might be having bloody stools but states they are watery so its hard to tell. Pt denies any issues or concerns. Kaylen Chen also brought up her right hand goes numb from time to time, she had the same thing on the left until she broke it and had wrist surgery ,above was reviewed and agreed with MLP back pain Location of pain is upper back and lower back. Pain is radiated to the dermatome anteriorly. The patient describes the pain as diffuse and discomforting. Symptoms are aggravated by daily activities. Symptoms are relieved by pain meds/drugs, physical therapy and rest. Med Refills Pt here today fo r medication refills. OARRS completed, last filled Ativan 09/25, Keaton & Flexeril 09/05TGrodi AIRPORT ENGINEER diabetes The problem is s table. Risk factors include: over age [age] years old. Managing with: Oral medications. Comorbidity: Hypertension. Pertinent negatives include blurred vision, burning of extremities, chest pain, dental disease, foot ulcers, frequent infections, urinary frequency, hypoglycemic episodes, polydipsia, weight gain and weight loss. A1C & Med Refills Pt here today for A1C check and medication refills. Pt states the is still having ringing in her ears. OARRS completed, last filled Ativan 08/26 & Keaton 08/08TGrodi AIRPORT ENGINEER Med Refills Pt here today fo r medication refills. We discussed Pt getting tested genes for coronary artery disease and what pt should do about it otherwise pt is doing well. OARRS completed, last filled Ativan 07/22, Flexeril 07/15, Keaton 07/11 & Lyrica 07/01TGrodi AIRPORT ENGINEER fatigue This is an initi al visit. The symptom(s) began gradually. The symptoms have improved. The fatigue occurs randomly. The patient presents with arthralgia, back pain and fatigue. The patient does not present with abdominal pain, anorexia, cough, fever, headache, lymphadenopathy, nausea or pharyngitis. Risk factors include depression. The symptoms are not aggravated with exercise, exertion or illness. The patient had a fair response to transfusion of blood. The fatigue is associated with change in appetite and generalized weakness. The patient denies any chills, change in sleep cycle, dyspnea, flank pain, hematemesis, hematochezia, hoarseness, increased abdominal girth, jaundice and lightheadedness. Additional information: PT states after the transfusion the lightheadedness improved. f/u hospital Pt here for f/u hospital visit. Pt evaluated in ER and admitted with GI bleed, pt states she received 3 units of blood and 3 bags of IV iron while she was there, she was referred to GI doctor and has an appt scheduled in August. Pt states she tested negative for Covid. Pt c/o some dizziness and still feels a little weak at times. Pt denies any other issues or concerns. PAULA Chen A1C & MED REFILLS Pt here today for A1C check and medication refills. Pt states she wants her Flexeril back and thinks she needs back on Vesicare. Pt states the other medications replacing Flexeril is not working. Pt feels the Amitriptyline is not working eitherOARRS completed, last filled Lyrica & Ativan 05/27, Keaton 05/18, & Ambien 05/14TGrodi AIRPORT ENGINEER diabetes The problem is s table. Risk factors include: over age [age] years old. Patient is compliant with using medication, follow-up, and using education materials. Managing with: Oral medications. Comorbidity: Hypertension. Pertinent negatives include chest pain, constant hunger, dental disease, diarrhea, foot ulcers, urinary frequency, heartburn, hypoglycemic episodes, nocturia, polydipsia and slow healing wounds / sores. Dizziness The problem is u nchanged. It occurs intermittently. The patient describes it as (an) imbalance and light-headed. It occurs while standing and it also occurs spontaneously. Symptom is aggravated by getting out of bed, rapid movement and rapid rise. Denies relieving factors. Associated symptoms include incoordination. Pertinent negatives include chest pain, diplopia, ear drainage, fever, headache, hearing loss, loss of consciousness, nausea, neck stiffness, otalgia, palpitations, seizures, slurred speech, tinnitus, vision loss and vomiting. Med Refills Pt here today fo r medication refills. OARRS completed, last filled Ativan 04/28, Lyrica 04/28, Keaton 04/16TGrodi AIRPORT ENGINEER GERD The severity of the problem is moderate. The problem is improving. The symptoms are intermittent. The location is epigastric. The quality of the pain is burning. Aggravating factors include anxiety. Symptoms are relieved by antacids and proton pump inhibitors. Associated symptoms include back pain, dizziness and heartburn. Pertinent negatives include bloating, blood in stool, change in appetite, constipation, diarrhea, dyspnea, fever, flank pain, flatulence, lightheadedness, myalgia, nausea, rash and vomiting. med refills Pt here for medi cation refills. Pt c/o lower back pain and dizziness, states that the Keaton is no longer helping the pain. Pt requesting refill on meclizine d/t increased dizziness. Pt denies any other issues or concerns. PAULA Chen back pain The problem is w orsening. It occurs persistently. Location of pain is lower back. Pain is radiated to the dermatome anteriorly. The patient describes the pain as deep and discomforting. Symptoms are aggravated by coughing, daily activities and defecation. Symptoms are relieved by pain meds/drugs. Additional information: Pt states that he hydrocodone do help but the side effects of them are worse then the pain because the constipation just makes everything worse. A1C & Med refills PT here today for A1C & medication refills. last A1C was 5.5 on 11/07/2019No other issues or concernsOARRS completed, last filled Flexeril 03/10, Ativan, Ambien & Lyrica 03/02, & Keaton 03/01TGrodi [employer] ENG[employer]ER Anxiety This is a follow up visit. There is improvement of initial symptoms. The patient reports functioning as somewhat difficult. The patient presents with anxious/fearful thoughts and difficulty falling asleep but denies compulsive thoughts, decreased need for sleep, depressed mood, difficulty concentrating, fatigue, feelings of guilt, feelings of invulnerability, paranoia or poor judgment. The Anxiety is aggravated by lack of sleep. The patient's relieving factors are a fair response to medication (Ambien). The Anxiety is associated with chronic pain. The patient denies any headache, irritability, nausea, sweating, trembling, urinary frequency, vomiting and weight gain. Additional information: PT states she is doing well on current meds but still not sleep well without the Ambien. Anxiety This is a follow up visit. There is worsening of previously reported symptoms. The patient reports functioning as very difficult. The patient presents with anxious/fearful thoughts, decreased need for sleep, difficulty concentrating, difficulty falling asleep, difficulty staying asleep, excessive worry and restlessness but denies compulsive thoughts or paranoia. The Anxiety is aggravated by lack of sleep. The patient's relieving factors are a fair response to medication (ativan). The Anxiety is associated with chronic pain. The patient denies any headache, irritability, nausea, sweating, trembling and urinary frequency. Shortness of breath In the inter mic[place] several weeks ago the patient's dyspnea has fluctuated. Episodes occur constantly. The severity is mildly severe. The patient notes chest pressure. Symptom is aggravated by dizziness. Denies relieving factors. Associated symptoms include anxiety, dry cough and wheezing. Pertinent negatives include chest pressure/discomfort, chills, excessive sputum, fatigue, fever, hemoptysis, lower extremity edema, neuromuscular weakness, night sweats, pleuritic pain, productive cough, purulent sputum, stridor, substernal chest pain, thromboembolic events and unilateral leg edema. UDS UDS+ BZO Mat R N f/u med refills Pt here today fo r f/u and medications refills. Pt would like to discuss results from Neurology consult, states that she is tired of feeling dizzy and her appointment for f/u with the Neurologist is not until 01/28/20. Pt would like to know if the paperwork for her bladder control supplies. OARRS REVIEWED, LAST FILLED CYCLOBENZAPRINE ON 12/23/19, NORCO 12/18/19, PREGABALIN 10/27/19, LORAZEPAM 11/30/19. Pt requesting refills on LORAZEPAM, NORCO, and PREGABALIN. Pt. states that her anxiety is a little high, denies any other issues or concerns. Mat MITCHELL finger infection Patient here to day for f/u R index finger swelling, redness and pain. Pt states the Keaton helps with the pain but she is worried about infection. Pt denies any other problems or concerns.Pt requesting refills of Keaton 5mg last filled 11/07 and Ativan 0.5mg LF 11/08 . Mat MITCHELL Rash The patient pres ents for Rash. The symptom(s) are described as moderate, improving and occurs continuously. Affected area(s) include right hand. The patient describes the affected area(s) as red and stinging. The symptoms are not associated with contact with chemicals, contact with plants and new perfume. The denies aggravating factors such as clothing, dry air, foods, lotions and sweating. Relieving factors include oral steroids. The symptoms are not relieved by antifungal cream or antihistamines. Associated symptoms include cracking, crusting, erythema (skin) and painful rash. Pertinent negatives include bleeding, bleeding skin, dry skin, fatigue, myalgia, pruritus and scaling. Med Refills & A1C Pt here today for medication refills & A1C. Last result was 5.4 on 08/03/19Pt wants her R index finger looked at. Pt has spots on it but it keeps coming back. Asked patient if she is still having the dizziness and she said yes. She said she still has not heard from Neurology. Informed her that we received a fax from them on 10/14 that stated they have tried to contact her multiple times but her phone is disconnected. Informed patient to call them herself. PT NEEDS REFILLS ON ATIVAN, COUMADIN, FLEXERIL, NORCO, LYRICA, RANEXA, SEROQUEL & SPIRONOLACTONE. Pt is requesting a rescue inhaler and an inhaler for her COPD. OARRS completed, last filled Lyrica 10/27, Flexeril 10/27, Keaton & Ativan 09/27TGrodi [employer] ENGINEER Rash The patient pres ents for Rash. The symptom(s) are described as mild and improving. Affected area(s) include right hand. The patient describes the affected area(s) as burning, itchy and red. The symptoms are not associated with contact with chemicals, contact with plants, new perfume, new skin soaps/lotions and rash began before age 2. The denies aggravating factors such as clothing, dry air, foods, heat, lotions, sun exposure, skin trauma/friction and sweating. The symptoms are not relieved by antifungal cream or antihistamines. Associated symptoms include cracking, crusting, dry skin, erythema (skin) and pruritus. Pertinent negatives include bleeding, bleeding skin and edema. RANDOM UDS/PILL COUNT Pt here to day for random UDS & pill count. Lorazepam Norco 30 fill and 2 1/2 tablets.Pt did not bring her Lyrica with her. Pt states she did not know it was a controlled medication. Pt states she still has her full bottle from last prescription but still filled it on 09/28. PT asked why Dr. Diane needed a urine. I told her that we needed a urine drug screen. Pt then stated, "I hope I can go, I have been holding it all day . Pt came back with urine cup with not enough urine to be sent out and tested. Having patient provide oral swab. OARRS completed, last filled Keaton 09/27, Ativan 09/27 & Lyrica 09/28. TGrodi [employer]ER DRUG SCREEN Rapid urine drug screen performed, pt + for NOTHING ALL NEGATIVE. Asked patient when she last took her medication and she stated she last took Ativan yesterday & Keaton 4 days ago. TGrodi [employer]INEER Med refills Pt here today fo r mediation refills and to review Ct scans she recently had done. PT states she has a yeast infection. Pt has lower back pain and states there is an odor. Pt states she noticed it a bout a week ago. Pt has some pain right below her abdomen as well. I asked patient for a urine to check for UTI but she said she cant go. PT NEEDS REFILLS ON FLEXERIL, NORCO & ATIVAN. OARRS completed, last filled Flexeril 09/19 & 09/08, Lyrica, Keaton & Ativan 08/31TGrodi O Dizziness Onset was sudden . The duration of each episode is 1-4 minutes. The problem is unchanged. It occurs intermittently. The patient describes it as (an) imbalance. It occurs while standing. Denies aggravating factors. Denies relieving factors. Associated symptoms include incoordination and tinnitus. Pertinent negatives include chest pain, diplopia, ear drainage, fever, headache, hearing loss, nausea, neck stiffness, palpitations, paresthesia, seizures, vision loss and vomiting. 4 WEEK F/U Pt here today fo r 4 week follow up and to go over her Holter monitor results. Pt states things are going okay, but she is still getting dizzy and is having lower back pain. Pt states it is mainly when she is cleaning. PT NEEDS REFILLS ON ATIVAN, FLEXERIL & NORCO. I asked patient if she needs a refill on her Keaton and she said, yeah might as well . I asked patient to provide a urine today and she said she can not pee. OARRS completed, last filled Flexeril 08/26, Ativan 08/03, & Keaton 08/03TGrodi [employer] ENGINEER Dizziness Onset was sudden . Severity is moderate. The problem is unchanged. It occurs intermittently. The patient describes it as (an) imbalance and light-headed. It occurs while standing. Symptom is aggravated by getting out of bed and using restroom. Relieving factors include rest. Pertinent negatives include chest pain, diplopia, ear drainage, fever, headache, hearing loss, loss of consciousness, seizures, slurred speech, vision loss and vomiting. Med refills & A1C Pt here today for medication refills & A1C check. Last result was 5.5 on 05/11. Pt states she is feeling awful. Pt states she gets so dizzy she has to lay down then her hands & legs spasm/tremor. PT states if she does not lay down she will passed out. Pt states this has been going on for a couple of weeks. Pt states it does not happen everyday and does not know what causes it. Pt states got her INR checked on Thursday. She states it is 2.3. Pt states her depresion is much better but she still has bad anxiety. Pt states she almost bit her lip raw. I asked if the Ativan is helping and she said yes. I asked if she feels like it is enough or does she feel like she needs more and she said probably . PT NEEDS REFILLS ON ATIVAN, NORCO, LYRICA, METFORMIN, PREVACID, SPIRONOLACTONE & WELLBUTRINOARRS completed, last filled Flexeril 07/15, Lyrica 06/29, Ativan 06/22 & Keaton 06/22TGrodi [employer] DRUG SCREEN Pt could not uri ion for a UDS. Pt had blood drawn. First attempt successful in R antecubital. Pt tolerated well. TGrodi [employer] ENGINEER 6 WK F/U Pt here today fo r 6 week follow up. Pt states she checked her INR today and she was 2.4. Pt states she was wondering why she was really tired lately. PHQ indicates moderate severe depression. Pt states she never feels like she wants to do anything. PT NEEDS REFILLS ON ATIVAN, NORCO, LYRICA, MECLIZINE, RANEXA, & SPIRONOLACTONE. OARRS completed, last filled Flexeril 05/27 & 06/09, Lyrica 05/25, Keaton & Ativan 05/11TGrodi LPNPt states that beside the no energy she feels ok drug screen Pt could no go t o the bathroom so did a blood draw for a drug screen. First attempt successful in R antecubital. Pt tolerated well no issues or concerns. TG[employer]di [employer] follow up Pt here today fo r a follow up & medication refills. Pt states she had her INR drawn today and it was 1.9OARRS completed, last filled Flexeril 04/30, Lyrica 04/25, Ativan 04/13, & Keaton 03/11TGrodi [employer]ER hypertension Comorbid conditi ons include diabetes mellitus. It is currently stable. Risk factors include age over age 60. The hypertension is exacerbated by anxiety. Pertinent negatives include claudication and confusion. Additional information: get episodes of dizziness F/U HOSPITAL ADMITION Pt here to day to follow up from recent hospital ER admission. Pt states they did a bunch of testing on her heart but this is not why she went to the ER. She states there is something stuck in her esophagus. PT states that the doctor did not even look at her throat and that she would have to go to the GI doctor to get a scope. She did not even get x-rays on it. Pt states when she eats/swallows her throat constricts. pt states it was higher up right after her mouth but then a couple of days later it moved down further into her chest. Pt causes her pain when she swallows/eat. PT states it has been going on for a couple of weeks now. PT NEEDS REFILL ON COUMADIN, ATIVAN & PRAZOSINPt states she also wants her finger looked at that she injured previously. OARRS completed, [facility]. [facility] Tried to get a u rine from patient and she could not go so we did a blood draw. First attempt in R antecubital successful. 1 tube of blood taken, Pt tolerated well, no issues/concerns. TGrodjuan manuel RUCHI med refill Pt here today fo r Seroquel refill. She was on the 50 mg tablet 1 at bedtime. Pt had to come in because this medication was not in her active medication list. PT ALSO NEEDS REFILL ON METFORMINNo other issues/concerns. Stephania LPNPt states she is doing well she just cant sleep med refills Pt here today fo r medication refills. Pt states she is not good today. Pt states on her R hand pointer finger she has white bumps that clear fluid comes out of it, it itches, and she was looking at pictures and she thinks its cat scratch fever. She has an old doxycycline prescription from a previous ER visit that she has been taking. Pt states it started about a month ago. Pt wants to talk about getting a prescription for sleep. She said she has been taking Melatonin and its not working. She states she has tried to take the Ativan at night and that doesnt help. PT NEEDS REFILLS ON COUMADIN, FLEXERIL, NORCO, ATIVAN, LYRICA, PREVACID. PHQ indicates severe depression. Pt states she has been struggling lately with depression. OARRS completed, last filled Lyrica 02/16, Ativan, & Keaton Grodi LPNASKED PATIENT IF SHE COULD PROVIDE A URINE AND SHE SAID NOT RIGHT NOW. SHE WILL NEED TO PROVIDE A URINE OR GET A BLOOD DRAW. ,above was reviewed and agreed with Medication refills Patient here for Medication refills. Patient is requesting refills on Wellbutrin, Ativan and Keaton. A1C completed today. No other issues at this time. Also patient did agree to reschedule breast biopsy. Patent was advised to stop blood thinners for 5 days. [facility] OARRS completed. last fills flexeril and Lorazepam 01/14, Lyrica 01/19 and Flexeril again 01/22. Last norco was 12/22/18. ruchi Johns. A1C sickness Pt here today be cause she thinks she has bronichitis. Pt states symptoms started last Thursday. Pt's symptoms are, non productive cough, SOB, runny nose, Pt states she needs refill on Ativan, flexeril, & nitro sublingual tabs as well. She states she does not need Keaton cause she still has some. OARRS completed, last filled, Ativan 12/22 for 15 day supply, Keaton & Lyrica 12/22TGrodi LPNPt states she get it once a year about christopher time and it has lasted over a week and not getting better annual exam Currently pregna nt: no. Patient is not contemplating . The patient states she uses none for control. Her menses is absent. Negative for: breast discharge, breast pain and breast self exam. Positive for: breast lump(s) (side: left).Postmenopausal. Menopausal symptoms negative for: hot flashes, night sweats and vaginal dryness. Menopausal symptoms positive for: insomnia. She does not drink alcohol. f/u abdominal pain Pt here today to f/u up with her abdominal pain. Pt states it is still really painful. She also states she has a lump on the L side above her breast. Pt has recently called and wants to have home health care come to her house and wants an INR monitor. Coumadin clinic will not do a monitor so this needs discussed. OARRS completed, last filled Keaton, Ativan, 11/05, Lyrica 11/11 & got Percocet from the ER on 11/22.TGrodi LPNPt states he has not appetite abdomen issues Patient is here because of her lower R abdominal pain. She says when she goes to the ER they just blow her off and tell her she is full of poop. She had a colostomy 4 years ago and only has 18inchs of her colon left. Last colonoscopy [address] Morley. She would like to be set up with [facility] for Pap and Mammogram. Next appt scheduled in a month with Benedicto to review meds and f/u abdominal pain. I asked if she needed any med refills and she said that she is only here for abdominal issues today. NDilts, [employer] rib pain when breathing Patient is here with R rib pain. She went to the ER on 11/14/18 and had a CAT scan. They told her she had to have a BM and gave her a stool softener. She now says the pain is carrying over to her back and even to the L side of her chest. She says it feels like she has been hit by truck . ER also said she had A-Fib. CHANCEjuliano JEFFERSON med refill Pt here for medi cation refill on Keaton and Ativan. Pt. c/o back pain 08/11. Pt was seen at Dr. Tom office and he seems to think its more of a hip problem. Pt. is scheduled to have back surgery this Thursday to insert gel into the spine. Pt has bulging disk Pt. did have X-rays yesterday. Pt. is hesitant to have the surgery due to hearsay from others. RUCHI Mena bladder infection Pt states abou t 5 days ago she noticed low back pain that radiates toward her bladder and thinks she could have a bladder infection. States she has not been urinating often and denies any blood or painful urination. Pt states took a norco but it's not helping her pain. Jose Medication refill Patient here f or medication refills. Patient meclizine and celexa. No other issues at this time.Ruchi Johns. medication refill medication ref ill--ativan bronchitis Additional infor leesa: needs something for bronchitis-- been taking cough syrup cough drops, tylenol. Sandra Guthrie RN. [place]: Finished ten day s if Keflex. Coughing is worse at night. Has Benadryl at home. Fxd left wrist on the of last month playing mike with a cat in her house. Will need surgery on her wrist. Just also saw cardiology who recently increased Coreg. sick Pt has been sick for 1 week, denies fever but is hoarse, and is coughing with white production. Pt states had some nebulizer solution left and states this was loosening her chest congestion and she has been able to cough. Pt would like an rx for nebulizer accessories (tubing) and albuterol solution. Jose med refill Pt would like al buterol solution and nebulizer accessories [facility] on [address]. Pt states was on another solution but cannot remember what it was called. Jose Margarito: Coughing for 1 w [place]. No hemoptysis or shortness of breath or chest pain. Has a nebulizer at home. Margarito: States she was t aking Gabapentin for chronic left leg pain. She has not taken Remeron. Wakes up with clenched teeth. Hx. of 4 stents placed and also hyperternsion. Presently on Coumadin. 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 She smokes 1 PPD. She is over due for a Pap smear and mammogram. She is seeing Dr. Ovalles for cardiology. med refill Pt states needs ativan, neurotin, and flexeril refilled. Pt states was taking remeron at night time to help her sleep and she states she is waking up very anxious with her teeth clenched and would like to try something different from remeron. These meds used to be prescribed by Dr. Delacruz who pt no longer sees but is waiting to hear from another dr but is out of her meds. Jose med refills Pt states needs Ativan and Trazadone. Has not been on Trazadone in years and has been out of ativan for 2 days because she takes it at night as well. Pt brought note from therapist stating its okay for primary dr to refill this meds and pt is okay to not follow up with mental health if primary dr fills the meds. Pt states has had increase in anxiety. Jose Left thight Pt c/o increase in pain in left thigh x 1 week ago after running after cat. States has had the pain for 3mos. Jose R thigh pain Patient has c/o R thigh pain which is constant and worse while walking. discuss medication Patient stopp ed her Seroquel and Celexa. Thinks the Seroquel made her feel like she was [place] . She stopped taking the Celexa, didn't think it was working. She was seeing Dr. Albarran until he passed. She has an appt 08/03 to see a new therapist. -Marjorie HOPPER HgbA1C Patient here for HgbA1C. Last read was 5.9 on 09/30/16 medication refill She is request ing Metformin and Gabapentin and Lansoprazole today. She would like 90 days supply if possible. [facility] follow up Patient states s he went to ER d/t not feeling well and was diganosed with pnemonia. She was sent home but then was called back after they reviewed her CT and was told she had a clot in her R Lung and was diagnosed with PE. She was admitted for 4 days and was given Lovenox. She was started on Coumadin which is managed by the coumadin clinic and Coreg managed by [facility] Dr. Rodriguez. Patient needs a release for physical therapy. -Marjorie HOPPER L arm/shoulder pain Patient stat es she has been going to a chiropractor for her arm/shoulder pain approx 1 year but it hasn't been helping. Approx 1 week ago she went to pull a blanket off her and a shooting pain went from her shoulder to elbow. Pain is constant. -Marjorie HOPPER severe leg pain Patient is here for leg pain. Patient is having pain in both lower legs. Patient states it feels like pins and needles with spasms. Patient has tried flexeril and tylenol arthritis. Patient has no other issues at this time.Ruchi Johns. knee pain Location: knee. Additional information: Pt here with right knee pain. No injury. She thinks it may be restless leg symdrome. RUCHI Figueroa. spasms on right side Patient her e for spasms of right side. Patient states it starts at ribs and go all the way down. Patient is also requesting flexeril and percocet. No other issues at this time. Ruchi Johns. med refill Patient here for medication refill. Requesting metformin and percocet. Needs A1C today. Has a knot on her left thigh that numb. RUCHI Figueroa medication refill Pt here for me dication refill. She is requesting Seroquel, citalopram and clonazepam. 2 of these meds were rxd by Dr. Albarran. She no longer is going to Dr. Albarran because she feels he was not listening to her. She is looking into another psych provider in [place]. RUCHI Figueroa knee pain Location: knee. Additional information: Pt still having right knee pain. medication refill Patient reques ting refill of Mobic and Oxycodone. Patient uses the Oxycodone for neck pain, pain rate at time of visit 04/11. -Thu HOPPER restless leg syndrome Symptoms p redominantly involve lower extremities. They are described as restless and tingling. Occurring at bedtime only and into the night. Additional information: Patient states she was diagnosed years ago and has been taking CoQ10 but the medication is no longer working. -Thu HOPPER medication refills Patient here for medication refill and scar pain. Patient lost her sister today. Patient also states that anxiety is really bad today. Patient is shaking and crying. Patient is no longer seeing dr. Albarran and has appt in april to see new psych doctor in [place]. Patient has no other issues at this time. Ruchi Johns. medication refill Patient here f or medication refills. Patient is requesting Vailum, Oxycontin 5 and meclizine. No other issues at this time. Ruchi Johns. cough Additional infor mation: Pt desires something to help with her cough. Has been coughing for 10 days. Carolina HOPPER. med refill Pt here for medi cation refill. States she needs all medications that are due for refill. She went to [facility] on 10/15/15 and starts PT on 11/07/15. RUCHI Figueroa pain Client here with pain in her neck and arm cold Patient here wit h head cold that started approx 1 week ago that progressed to cough, raw tongue, itchy eyes, flushed face, neck pain, sensitive to light, dizziness and itching on face. Patient also requesting refills of Prevacid, Lovastatin and Meclizine. Patient is inquiring if her Oxycodone can be changed, she thinks it may be making her itchy. - Thu HOPPER med refill Patient here for medication refill for Oxycodone. Patient here with complaints of neck pain, states she has had this in the past. Was scheduled for referral but was unable to go with colostomy problems.- Thu HOPPER Medcation refills Staple removal Patient here for medication refills and to have parviz removed. Patient had surgery 05/22/15 to have colotomy reversal. Patient is requesting anti-anxiety medication. No other issues at this time. Ruchi Johns. med refill Here requesting Atarax renewal. Was prescribed in ER in 12/2014 for itching around ostomy pouch. Also states would like to exchange oxycodone Rx for morphine sulfate instant Rx. Also C/O intermittent locking up of rt. middle finger. Hayden Casas R.N. Med refill Patient here for medication refill. Patient has no issues or concerns at this time. Ruchi Johns medication refill Patient here t freddy for pain medication refill. Patient has pain in her colostomy and neck at times. -RUCHI PRAJAPATI. med refill Client here for med refills on Oxycodone, Spironolactone, Prevacid, Metoprolol, & Clopidogel. Oscar Arias dyspnea Pt. states was i n [facility] in Aug-Sep for emergency colectomy. While inpt. was using nebulizers. Was not given Rx at time of d/c and has been using sister's neb at home with relief of dyspnea. Neb meds currently using are Albuterol and Ipratropium [place] 2 - 3 times/day. Hayden Casas R.N. med f/u Client here to f /u on meds. Also states has a rash around her stoma. [facility] has a Colonoscopy sched. for 11-21-14. Oscar Arias Functional Status Date Functional Assessmen t No Information Instructions Date Instruction Additional Infor leesa Dietary needs education Related to Body mass index [BMI] 36.0-36.9, adult Giving encouragement to exercise Related to Body mass index [BMI] 36.0-36.9, adult Giving encouragement to exercise Related to Body mass index [BMI] 36.0-36.9, adult Dietary management e ducation, guidance, and counseling Related to Body mass index [BMI] 36.0-36.9, adult Giving encouragement to exercise Related to Body mass index [BMI] 36.0-36.9, adult Dietary management e ducation, guidance, and counseling Related to Body mass index [BMI] 36.0-36.9, adult Giving encouragement to exercise Related to Body mass index [BMI] 36.0-36.9, adult Dietary management e ducation, guidance, and counseling Related to Body mass index [BMI] 36.0-36.9, adult Giving encouragement to exercise Related to Body mass index [BMI] 36.0-36.9, adult Dietary management e ducation, guidance, and counseling Related to Body mass index [BMI] 36.0-36.9, adult Giving encouragement to exercise Related to Body mass index [BMI] 36.0-36.9, adult Dietary management e ducation, guidance, and counseling Related to Body mass index [BMI] 36.0-36.9, adult Dietary management e ducation, guidance, and counseling Related to Body mass index [BMI] 35.0-35.9, adult Giving encouragement to exercise Related to Body mass index [BMI] 35.0-35.9, adult Giving encouragement to exercise Related to Body mass index [BMI] 35.0-35.9, adult Dietary management e ducation, guidance, and counseling Related to Body mass index [BMI] 35.0-35.9, adult Giving encouragement to exercise Related to Body mass index [BMI] 34.0-34.9, adult Dietary management e ducation, guidance, and counseling Related to Body mass index [BMI] 34.0-34.9, adult Giving encouragement to exercise Related to Body mass index [BMI] 32.0-32.9, adult Dietary management e ducation, guidance, and counseling Related to Body mass index [BMI] 32.0-32.9, adult Giving encouragement to exercise Related to Body mass index [BMI] 32.0-32.9, adult Dietary management e ducation, guidance, and counseling Related to Body mass index [BMI] 32.0-32.9, adult Giving encouragement to exercise Related to Body mass index [BMI] 32.0-32.9, adult Dietary management e ducation, guidance, and counseling Related to Body mass index [BMI] 32.0-32.9, adult Giving encouragement to exercise Related to Body mass index (BMI) 32.0-32.9, adult Dietary management e ducation, guidance, and counseling Related to Body mass index (BMI) 32.0-32.9, adult Giving encouragement to exercise Related to Body mass index (BMI) 32.0-32.9, adult Dietary management e ducation, guidance, and counseling Related to Body mass index (BMI) 32.0-32.9, adult Dietary management e ducation, guidance, and counseling Related to Body mass index (BMI) 32.0-32.9, adult Giving encouragement to exercise Related to Body mass index (BMI) 32.0-32.9, adult Giving encouragement to exercise Related to Body mass index (BMI) 32.0-32.9, adult Dietary management e ducation, guidance, and counseling Related to Body mass index (BMI) 32.0-32.9, adult Giving encouragement to exercise Related to Body mass index (BMI) 32.0-32.9, adult Dietary management e ducation, guidance, and counseling Related to Body mass index (BMI) 32.0-32.9, adult Giving encouragement to exercise Related to Body mass index (BMI) 32.0-32.9, adult Dietary management e ducation, guidance, and counseling Related to Body mass index (BMI) 32.0-32.9, adult Giving encouragement to exercise Related to Body mass index (BMI) 31.0-31.9, adult Dietary management e ducation, guidance, and counseling Related to Body mass index (BMI) 31.0-31.9, adult Giving encouragement to exercise Related to Body mass index (BMI) 31.0-31.9, adult Dietary management e ducation, guidance, and counseling Related to Body mass index (BMI) 31.0-31.9, adult Giving encouragement to exercise Related to Body mass index (BMI) 31.0-31.9, adult Dietary management e ducation, guidance, and counseling Related to Body mass index (BMI) 31.0-31.9, adult Giving encouragement to exercise Related to Body mass index (BMI) 31.0-31.9, adult Dietary management e ducation, guidance, and counseling Related to Body mass index (BMI) 31.0-31.9, adult Giving encouragement to exercise Related to Body mass index (BMI) 31.0-31.9, adult Dietary management e ducation, guidance, and counseling Related to Body mass index (BMI) 31.0-31.9, adult Giving encouragement to exercise Related to Body mass index (BMI) 31.0-31.9, adult Dietary management e ducation, guidance, and counseling Related to Body mass index (BMI) 31.0-31.9, adult Dietary management e ducation, guidance, and counseling Related to Body mass index (BMI) 31.0-31.9, adult Giving encouragement to exercise Related to Body mass index (BMI) 31.0-31.9, adult Patient no showed he r left breast biopsy appt. Radiology recommend follow up sonogram in 3 months Related to Abnormal Mammogram Giving encouragement to exercise Related to Body mass index (BMI) 31.0-31.9, adult Dietary management e ducation, guidance, and counseling Related to Body mass index (BMI) 31.0-31.9, adult Giving encouragement to exercise Related to Body mass index (BMI) 31.0-31.9, adult Dietary management e ducation, guidance, and counseling Related to Body mass index (BMI) 31.0-31.9, adult Patient states she f ound a lump in her left breast 2 weeks ago. Slightly tender and slightly mobile. Cx Bilateral mammogram with left breast sonogram. Referral to general surgeon for further evaluation. Related to Left breast lump Pelvic sonogram orde red for evaluation of pelvic discomfort for >1 month Related to Pelvic pain in female Encouraged monthly B SE. Recommend calcium 1000mg QD. Encouraged good dietary intake and exercise. Laboratory specimens sent to lab. Patient to call in 2 weeks if desires results. 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 Patient to call in 1 week for results Related to Encounter for sexually transmitted disease screening Giving encouragement to exercise Related to Body mass index (BMI) 31.0-31.9, adult Dietary management e ducation, guidance, and counseling Related to Body mass index (BMI) 31.0-31.9, adult Giving encouragement to exercise Related to Body mass index (BMI) 32.0-32.9, adult Dietary management e ducation, guidance, and counseling Related to Body mass index (BMI) 32.0-32.9, adult Giving encouragement to exercise Related to Body mass index (BMI) 31.0-31.9, adult Dietary management e ducation, guidance, and counseling Related to Body mass index (BMI) 31.0-31.9, adult Increase activity level Assessments Type Assessment Date No Information Goals Health Concern Goal Type Priority Status Date Diabetes Self Management: Patient needs education to manage diabetes. Patient will state factors necessary to manage diabetes. Patient Goal Diabetes Self Management: Patient needs education to manage diabetes. Patient will state factors necessary to manage diabetes. Patient Goal Continued Diabetes Self Management: Patient needs education to manage diabetes. Patient will state factors necessary to manage diabetes. Patient Goal Diabetes Self Management: Patient needs education to manage diabetes. Patient will state factors necessary to manage diabetes. Patient Goal Patient Care Teams Name Effective Dates (start - stop) Status Members No Information
--- OUTSIDE RECORDS SUMMARY | 2024-07-25 09:00 | XMS_ITS ---
Author Organization [facility] Address [address] [place] [address] Care Team Providers Care Exhauster Engineer Name Role Phone Darcie Garcia Primary Care Provider [phone] ManuelMISS Saldivar Unavailable [phone] Abdiel Mir Unavailable [phone] REASON FOR VISIT OMT Encounters Encounter Location Date Provider Diagnosis [facility] [address] [place] [address] 07/25/2024 Abdiel Mir Plan Of Treatment No Information Progress Notes * KING MORENO ADOB:[birth year] (64 yo F)Acc No.[id number]:07/25/2024 progress note Patient: KING KWONG Provider:FABIAN TUCKERDOB:1960???Age:63 Y ???Sex:FemaleDate:07/25/2024hone:[phone]:[address] FONTAINEBARTON COUNTY MEMORIAL HOSPITALWC-[address]Nym:Darcie Garcia Subjective: * Chief Complaints: * O MT Billing Information: * Procedure Codes: * Electronic signature of Abdiel Mir DO on 10/22/2025 at 02:48 PM ESTSign off status: Pending * Appointment Provider: Heather TUCKER Date: 0 07/25/2024 Generated for Printing/Faxing/eTransmitting on:?10/22/2025 02:48 PM EST
--- OUTSIDE RECORDS SUMMARY | 2024-08-03 09:00 | XMS_ITS ---
Author Organization [facility] Address [address] [place] [address] Care Team Providers Care Manager Sourcing Name Role Phone Tory Lacey Primary Care Provider MISS Janna Jackson Unavailable [phone] REASON FOR VISIT MED CHECK Encounters Encounter Location Date Provider Diagnosis [facility] [address] [place] [address] 08/03/2024 Tory Lacey Plan Of Treatment No Information Progress Notes * KING MORENO ADOB:[birth year] (64 yo F)Acc No.[id number]:08/03/2024 Progress Notes Patient: KING KWONG Provider:?TORY LACEY MDDOB:1960???Age: 63 Y???Sex:FemaleDate:08/03/2024hone:[phone]:[address] [place]THAW-[address] Subjective: * Chief Complaints: * M ED CHECK Billing Information: * Procedure Codes: * Electronic signature of Tory Lacey MD on 10/22/2025 at 02:50 PM ESTSign off status: Pending * Appointment Provider: Juanita LACEY MD Date: Generated for Printing/Faxing/eTransmitting on:?10/22/2025 02:50 PM EST
--- OUTSIDE RECORDS SUMMARY | 2024-08-10 10:15 | XMS_ITS ---
Author Organization [facility] Address [address] [place] [address] Care Team Providers Care Backup Administrator Name Role Phone Darcie Lacey Primary Care Provider MISS Janna Jackson Unavailable [phone] REASON FOR VISIT neck pain, dizziness Encounters Encounter Location Date Provider Diagnosis [facility] [address] [place] [address] 08/10/2024 Darcie Lacey Plan Of Treatment No Information Progress Notes * KING MORENO ADOB:[birth year] (64 yo F)Acc No.[id number]:08/10/2024 PROGRESS NOTES Patient: KING KWONG Provider:KEL LACEY MDDOB:1960???Age: 63 Y???Sex:FemaleDate:4Phone:[phone]:[address] FONTAINEPARKLAND HEALTH CENTERCR-[address] Subjective: * Chief Complaints: * N jose maria pain, dizziness * Electronic signature of Darcie Lacey MD on 10/22/2025 at 02:49 PM ESTSign off status: Pending * Appointment Provider: Juanita LACEY MD Date: 1 Generated for Printing/Faxing/eTransmitting on:?10/22/2025 02:49 PM EST
--- OUTSIDE RECORDS SUMMARY | 2024-08-19 04:00 | XMS_ITS ---
Author Organization [facility] Address [address] [place] [address] Care Team Providers Care Cane Weigher Name Role Phone Darcie Garcia Primary Care Provider MISS Janna Jackson Unavailable [phone] Rufino Hassan Unavailable [phone] REASON FOR VISIT omt Encounters Encounter Location Date Provider Diagnosis [facility] [address] [place] [address] 08/19/2024 Rufino Hassan Plan Of Treatment No Information Progress Notes * KING MORENO ADOB:[birth year] (64 yo F)Acc No.[id number]:08/19/2024 progress note Patient: KING KWONG Provider:?RUFINO GOMEZ DODOB:1960???Age:63 Y???Sex:FemaleDate:08/19/2024hone:[phone]:[address] FONTAINESSM REHABJO-[address]Dgx:Darcie Garcia Subjective: * Chief Complaints: * O mt Billing Information: * Procedure Codes: * Electronic signature of Rufino Hassan DO on 10/22/2025 at 02:50 PM ESTSign off status: Pending * Appointment Provider: Bridgett GOMEZ DO Date: Generated for Printing/Faxing/eTransmitting on:?10/22/2025 02:50 PM EST
--- OUTSIDE RECORDS SUMMARY | 2024-09-16 10:00 | XMS_ITS ---
Author Organization [facility] Serv[facility] es Address [address] [place] [address] Care Team Providers Care Oral And Maxillofacial Surgery Resident Name Role Phone Tory Lacey Primary Care Provider MISS Janna Jackson Unavailable REASON FOR VISIT chronic f/u Encounters Encounter Location Date Provider Diagnosis [facility] [address] [place] [address] 09/16/2024 Tory Lacey Plan Of Treatment No Information Progress Notes * KING MORENO ADOB:[birth year] (64 yo F)Acc No.[id number]:09/16/2024 Progress Notes Patient: KING KWONG Provider:?TORY LACEY MDDOB:1960???Age: 63 Y???Sex:FemaleDate:4Phone:[phone]:[address] [facility]-[id number] Subjective: * Chief Complaints: * C hronic f/u Billing Information: * Procedure Codes: * Electronic signature of Tory Lacey MD on 10/22/2025 at 02:49 PM ESTSign off status: Pending * Appointment Provider: Juanita LACEY MD Date: 11/16/2023 Generated for Printing/Faxing/eTransmitting on:?10/22/2025 02:49 PM EST
--- OUTSIDE RECORDS SUMMARY | 2024-12-07 09:15 | XMS_ITS ---
Author Organization [facility] es Address [address] [place] [address] Care Team Providers Care Rehab Trainer Name Role Phone Darcie Garcia Primary Care Provider JacksonMISS Saldivar Unavailable Nicole Benson Unavailable [phone] REASON FOR VISIT 3 month f/u Encounters Encounter Location Date Provider Diagnosis [facility] [address] [place] [address] 12/07/2024 Nicole Benson Plan Of Treatment No Information Progress Notes * KING MORENO ADOB:[birth year] (64 yo F)Acc No.[id number]:12/07/2024 Behavioral Health Patient: KING KWONG :Anu BensonDOB:1960???Age:64 Y???Sex:Female Date:12/07/2024Phone:[phone]:[address] [facility]Pcp:Darcie Garcia Subjective: * Chief Complaints: * 3 month f/u Billing Information: * Procedure Codes: * Electronic signature of KRISTIAN Parsons on 10/22/2025 at 02:49 PM ESTSign off status: Pending * Provider: Luz Benson Date: 0 12/07/2024 Generated for Printing/Faxing/eTransmitting on:?10/22/2025 02:49 PM EST
--- OUTSIDE RECORDS SUMMARY | 2025-04-25 08:30 | XMS_ITS ---
Author Organization The [facility] in [place] Address [address] [place] [address] Care Team Providers Care Regulatory Affairs Portfolio Leader Name Role Phone Conchita Aden MD Primary Care Provider Unavailab Mariah Robles Unavailable [phone] REASON FOR VISIT New PT Hem Encounters Encounter Location Date Provider Diagnosis The [facility] [address] [place] [address] 04/25/2025 Mariah Duarte Plan Of Treatment No Information Progress Notes * Latanya MORENODOB:1960 (64 yo F)Acc No.[id number]:04/25/2025 UNLOCKED PROGRESS NOTE Progress Notes Patient: Latanya KWONG :?Mariah Logan M.D.:1960???Age:64 Y ???Sex:FemaleDate:04/25/2025Phone:[phone]:[address] [place] [address]Pcp:Conchita Aden MD Subjective: * Chief Complaints: * 1 . MD New PT Hem. * Medical History: Objective: * Vitals: Assessment: Plan: * Treatment: * * Electronic signature of Mariah Duarte MD, [id number] on 10/22/2025 at 02:49 PM ESTSign off status: PendingVisit Status:?CANC (Cancelled) * Provider: Santosh Logan M.D. Date: 0 04/25/2025 Generated for Printing/Faxing/eTransmitting on:?10/22/2025 02:49 PM EST
--- OUTSIDE RECORDS SUMMARY | 2025-04-25 08:30 | XMS_ITS ---
Author Organization The [facility] in [place] Address [address] [place] [address] Care Team Providers Care Plastic Mixer Name Role Phone Conchita Aden MD Primary Care Provider Unavailab Mariah Robles Unavailable [phone] REASON FOR VISIT New PT Hem Encounters Encounter Location Date Provider Diagnosis The [facility] [address] [place] [address] 04/25/2025 Mariah Duarte Plan Of Treatment No Information Progress Notes * Latanya MORENODOB:1960 (64 yo F)Acc No.[id number]:04/25/2025 UNLOCKED PROGRESS NOTE Progress Notes Patient: Latanya KWONG :Brown Logan M.D.:1960???Age:64 Y ???Sex:FemaleDate:04/25/2025Phone:[phone]:[address] [place] [phone]:Conchita Aden MD Subjective: * Chief Complaints: * 1 . MD New PT Hem. * Medical History: Objective: * Vitals: Assessment: Plan: * Treatment: * * Electronic signature of Mariah Duarte MD, [id number] on 10/22/2025 at 02:50 PM ESTSign off status: PendingVisit Status:?PEN (Pending) * Provider: Santosh Logan M.D. Date: 04/25/2025 Generated for Printing/Faxing/eTransmitting on:?10/22/2025 02:50 PM EST
--- OUTSIDE RECORDS SUMMARY | 2025-05-08 08:30 | XMS_ITS ---
Author Organization The [facility] in [place] Address [address] [place] [address] Care Team Providers Care Trust And Estates Attorney Name Role Phone Keiko CABELLO, Conchita Primary Care Provider Unavailab Mariah Robles Unavailable [phone] REASON FOR VISIT Ferumoxytol (Feraheme -Non-ESRD) Encounters Encounter Location Date Provider Diagnosis The [facility] [address] [place] [address] 05/08/2025 Mariah Duarte Plan Of Treatment No Information Progress Notes * Latanya MORENODOB:1960 (64 yo F)Acc No.[id number]:05/08/2025 UNLOCKED PROGRESS NOTE Progress Note Patient: Latanya KWONG :?Mariah Logan M.D.:1960???Age:64 Y ???Sex:FemaleDate:05/08/2025Phone:[phone]:[address] [place] [address]Pcp:Conchita Aden MD Subjective: * Chief Complaints: * 1 . Ferumoxytol (Feraheme -Non-ESRD). * Medical History: Objective: * Vitals: Assessment: Plan: * Treatment: * * Electronic signature of Mariah Duarte MD, [id number] on 10/22/2025 at 02:51 PM ESTSign off status: PendingVisit Status:?PEN (Pending) * Provider: Santosh Logan M.D. Date: 0 05/08/2025 Generated for Printing/Faxing/eTransmitting on:?10/22/2025 02:51 PM EST
--- OUTSIDE RECORDS SUMMARY | 2025-06-20 08:30 | XMS_ITS ---
Author Organization [facility] [place] Address [address] [place] [address] Care Team Providers Care Chief Writer Name Role Phone Keiko CABELLO, Conchita Primary Care Provider Unavailab Mariah Robles Unavailable [phone] REASON FOR VISIT MD Encounters Encounter Location Date Provider Diagnosis [facility] [address] [place] [address] 06/20/2025 Mariah Duarte Plan Of Treatment No Information Progress Notes * Latanya MORENODOB:1960 (64 yo F)Acc No.[id number]:06/20/2025 UNLOCKED PROGRESS NOTE Progress Notes Patient: Latanya KWONG :Brown Logan M.D.:1960???Age:64 Y ???Sex:FemaleDate:06/20/2025Phone:[phone]:[address] [place] [address]Pcp:Conchita Aden MD Subjective: * Chief Complaints: * 1 . MD. * Medical History: Objective: * Vitals: Assessment: Plan: * Treatment: * * Electronic signature of Mariah Duarte MD, [id number] on 10/22/2025 at 02:50 PM ESTSign off status: PendingVisit Status:?CONFPHONE (Voice) * Provider: Santosh Logan M.D. Date: 0 06/20/2025 Generated for Printing/Faxing/eTransmitting on:?10/22/2025 02:50 PM EST
--- OUTSIDE RECORDS SUMMARY | 2025-07-14 12:00 | XMS_ITS | Encounter Summary ---
Author Organization [facility] Address [address] [place] [address] Phone Care Team Providers Care Oncology Social Worker Name Role Phone June Preston MD Unavailable Conchita Aden MD Primary Care Provider Reason for Referral * Cardiovascular (Routine) - AuthorizedSpecialtyDiagnoses / ProceduresReferred By ContactReferred To Contact Diagnoses Paroxysmal ventricular tachycardia Procedures ECG 12 Lead Oscar Rodriguez MD [address] [facility] 2, [address] [address] Phone: tel: fax: Referral IDStatusReasonStart DateExpiration DateVisits RequestedVisits [id number]/12/20259/ * Consultation (Routine) - AuthorizedSpecialtyDiagnoses / ProceduresReferred By ContactReferred To ContactCardiology Diagnoses Atherosclerosis of [place] coronary artery of [place] heart without angina pectoris Procedures Follow Up In Cardiology Oscar Rodriguez MD [address] [facility] 2, [address] [address] Phone: tel: fax: Oscar Rodriguez MD [facility], [facility] [address] [place] [address] Phone: tel: fax: Referral IDStatusRebeccaasonStart DateExpiration DateVisits RequestedVisits [id number]/12/20259/12/202611 * PFT (Routine) - Pending ReviewSpecialtyDiagnoses / ProceduresReferred By ContactReferred To Contact Diagnoses Paroxysmal ventricular tachycardia High risk medication use Procedures Complete Pulmonary Function Test (Spirometry/DLCO/Lung Volumes) Oscar Rodriguez MD [address] [facility], [address] [place] [id number] Phone: tel: fax: Referral IDStatAkiasonStart DateExpiration DateVisits RequestedVisits [id number] Review Reason for Visit * OefsemNtracwvdQoyoph-ef3-6 month follow up for Atherosclerosis of [place] coronary artery of [place] heart without angina pectoris * Consultation (Routine) - AuthorizedSpecialtyDiagnoses / ProceduresReferred By ContactReferred To ContactCardiology Diagnoses Atherosclerosis [place] coronary artery of [place] heart without angina pectoris Procedures Follow Up In Cardiology Oscar Rodriguez MD [address] [facility], [place] [id number] Phone: tel: fax: Oscar Rodriguez MD [address] [facility], [address] [place] [address] Phone: tel: fax: Referral IDStatusRebeccaasonStel paso DateExpiration DateVisits RequestedVisits [id number]/10/20251/10/202611 Encounter Details DateTypeDepartmentCare Team (Latest Contact Info)Ddzupxdnxiu31/12/2025 1:00 PM EDTOffice Visit [facility] [address] [phone] Oscar Rodriguez MD [facility], [address] [place] [address] Atherosclerosis [place] coronary artery of [place] heart without angina pectoris (Primary Dx); Cardiomyopathy, ischemic; Chronic systolic CHF (congestive heart failure) (Multi); Mixed hyperlipidemia; ICD (implantable cardioverter-defibrillator) discharge; Paroxysmal ventricular tachycardia; High risk medication use; Type 2 diabetes mellitus without complication, without long-term current use of insulin (Multi); Current every day smoker; BMI 25.0-25.9,adult; Moderate mitral regurgitation; History of DVT (deep vein thrombosis); Chronic anemia; Ventricular tachycardia (paroxysmal) (Multi) Discharge Disposition: Home Social History Tobacco UseTypesPacks/DayYears UsedDateSmoking Tobacco: Every DayCigarettes0.351 Started: 1974Smokeless Tobacco: Never Tobacco Cessation:Counseling Given: Yes Alcohol UseStandard Drinks/WeekCommentsNever0 (1 standard drink = 0.6 oz pure alcohol)B1300 Health LiteracyAnswerDate RecordedHow often do you need to have someone help you when you read instructions, pamphlets, or other written material from your doctor or pharmacy?Never01/08/2025HC UtilitiesAnswerDate RecordedIn the past 12 months has the [employer], [employer], or water [employer] threatened to shut off services in your home?No04/14/2025Humiliation, Afraid, Rape, and Kick questionnaireAnswerDate RecordedWithin the last year, have you been afraid of your partner or ex-partner?No04/14/2025Within the last year, have you been humiliated or emotionally abused in other ways by your partner or ex-partner?No04/14/2025Within the last year, have you been kicked, hit, slapped, or otherwise physically hurt by your partner or ex-partner?No04/14/2025Within the last year, have you been raped or forced to have any kind of sexual activity by your partner or ex-partner?No04/14/2025Social Connection and Isolation Panel AnswerDate RecordedIn a typical week, how many times do you talk on the phone with family, friends, or neighbors?Once a week01/08/2025How often do you get together with friends or relatives?Once a week01/08/2025How often do you attend religion or samaritan services?Patient rvlkslra85/09/2025Do you belong to any clubs or organizations such as religion groups, unions, fraternal or athletic sim ups, or school groups?Patient /09/2025How often do you attend meetings of the clubs or organizations you belong to?Patient hculdrhz14/09/2025re you , , , , never , or living with a partner? Patient /09/2025UDIT-CAnswerDate RecordedQ1: How often do you have a drink containing alcohol?Never04/14/2025Q2: How many drinks containing alcohol do you have on a typical day when you are drinking?Patient does not drink 04/14/2025Q3: How often do you have six or more drinks on one occasion?Never 04/14/2025Overall Financial Resource Strain (CARDIA)AnswerDate RecordedHow hard is it for you to pay for the very basics like food, housing, medical care, and heating?Not hard at all04/14/2025PHQ-2AnswerDate RecordedPatient Health Questionnaire-2 [id number] [place] of Occupational Health - Occupational Stress QuestionnaireAnswerDate RecordedDo you feel stress - tense, restless, nervous, or anxious, or unable to sleep at night because yourmind is troubled all the time - these days?Not at all01/08/2025Exercise Vital SignAnswer Date RecordedOn average, how many days per week do you engage in moderate to strenuous exercise (like a brisk walk)?0 days01/08/2025On average, how many minutes do you engage in exercise at this level?0 min01/08/2025Hunger Vital Sign AnswerDate RecordedWithin the past 12 months, you worried that your food would run out before you got the money to buymore.Never true04/14/2025Within the past 12 months, the food you bought just didn't last and you didn't have money to get more.Never true04/14/2025PRAPARE - TransportationAnswerDate RecordedIn the past 12 months, has lack of transportation kept you from medical appointments or from getting medications?No04/14/2025In the past 12 months, has lack of transportation kept you from meetings, work, or from getting things needed for daily living?No04/14/2025Housing Stability Vital SignAnswerDate RecordedIn the last 12 months, was there a time when you were not able to pay the mortgage or rent on time?No02/16/2024In the last 12 months, how many places have you lived?1 02/16/2024In the last 12 months, was there a time when you did not have a steady place to sleep or slept in duboiselter (including now)?No02/16/2024Housing Stability Vital SignAnswerDate RecordedIn the last 12 months, was there a time when you were not able to pay the mortgage or rent on time?No04/14/2025In the past 12 months, how many times have you moved where you were living? At any time in the past 12 months, were you homeless or living in a chcf (including now)?No04/14/2025CommentsNoSex and Gender InformationValue Date RecordedSex Assigned at BirthNot on fileLegal SpwOszlps08/25/2022 10:34 AM ESTGender IdentityNot on fileSexual OrientationNot on filedocumented as of this encounter Last Filed Vital Signs Vital SignReadingTime TakenCommentsBlood Kgkhzaom395/6409 1:05 PM EDT Pdkvt6309 1:05 PM EDTTemperature--Respiratory Rate--Oxygen Saturation-- Inhaled Oxygen Concentration--Kckynb10.4 kg (142 lb)07/14/2025 1:05 PM EDTHeight 157.5 cm (5' 2 )07/14/2025 1:05 PM EDTBody Mass Index25.9709 1:05 PM EDT documented in this encounter Functional Status * PulseAnswerDate of DrxmxpmefxLsezoy3364/12/2025 1:05 PM EDTREMAINEorrAlma Delia martinez CMA documented as of this encounter Patient Instructions * Patient Instructions* Erika Richards RN - 07/14/2025 1:00 PM EDT Please bring all medicines, vitamins, and herbal supplements with you when you come to the office. Prescriptions will not be filled unless you are compliant with your follow up appointments or have a follow up appointment scheduled as per instruction of your physician. Refills should be requested at the time of your visit. BMI was above normal measurement. Current weight: 64.4 kg (142 lb) Weight change since last visit (-) denotes wt loss -16.29 lbs Weight loss needed to achieve BMI 25: 5.6 Lbs Weight loss needed to achieve BMI 30: -21.7 Lbs Provided instructions on dietary changes Provided instructions on exercise. Pacemaker/Defibrillator follow up per routine * Attachments The following attachments cannot be sent through Care Everywhere. * Quitting smoking (Singaporean) documented in this encounter Progress Notes * Oscar Rodriguez MD - 07/14/2025 1:00 PM EDT HPI Patient is in the office for follow-up for complicated cardiovascular history including severe ischemic cardiomyopathy, previous coronary angioplasty, paroxysmal ventricular tachycardia status post ablation and status post AICD with longstanding diabetes, dyslipidemia and active tobacco abuse. In January 2025 she underwent ablation for ventricular tachycardia at with Dr. Fair with no recurrent disease based on the most recent analysis of the pacemaker/defibrillator June 2025. She had an admission in April 2025 to [facility] for GI bleed with negative endoscopy. She has chronic anemia and receives iron infusion periodically. She is currently utilizing Chantix for last 2 weeks tried to quit smoking and she was congratulated on taking that step. She has been on amiodarone for prevention of ventricular arrhythmias and there has been no surveillance testing in place. She has not had blood work since her admission to [facility] in April 2025. She reports no angina orthopnea PND or lower extremity edema. She reports no side effect of medications. I do not have recent readings on her diabetes. IMPRESSION/recommendation: 1. Three-vessel coronary artery disease status post stenting of the LAD and the diagonal in the past with patent stents placed based on cardiac catheterization August 2024, occluded RCA where she had previous stenting and now with aulv-vz-wmukq collaterals, circumflex was never stented but has mild disease based on the last cardiac catheterization August 2024 at [facility]. Will continue aggressive risk factor medication for CAD. Emphasis on tobacco cessation and diabetes management. Patient has been compliant and remains asymptomatic 2-Ventricular tachycardia status post AICD implantation July 2023. Recurrent AICD discharge, treated with amiodarone and had V. tach ablation [address] Fair with success and no recurrent arrhythmias 3. History of history of pulmonary embolism, no recurrences while she is on Xarelto maintenance dose 10 mg daily. 4. Active tobacco abuse, was counseled again for tobacco cessation. Currently she is utilizing Chantix for last 2 weeks hoping for complete abstinence. 5. PAD, which is presently controlled with no symptoms. Tobacco cessation will help significantly in reducing the complications of this. 6. Chronic obstructive pulmonary disease managed by PCP seems to be under control. 7. Chronic systolic heart failure, ejection fraction 35% by echocardiogram December 2024, presently onGDMT at low doses due to soft blood pressure readings but well compensated. She is status post AICD. 8. Type 2 diabetes managed by [facility], no recent A1c is available 9. Moderate mitral regurgitation based on the echo in December 2024. Will be monitored annually with echocardiogram 10. High risk medication with amiodarone, amiodarone surveillance testing will be put in place and will have TSH and PFT obtained MCKENZIE along with CBC and comprehensive metabolic profile 11. Dyslipidemia on high intensity statin with rosuvastatin 20 mg daily. Low-fat diet was encouraged and adherence to medicine was emphasized 12. Chronic anemia, GI workup has been negative this year. Follows with hematology and receives iron infusion periodically ROS Review of system essentially normal Vitals: 07/14/25 1305 BP: 104/64 BP Location: Left arm Patient Position: Sitting Pulse: 80 Weight: 64.4 kg (142 lb) Height: 1.575 m (5' 2 ) EKG done in office today Objective Physical Exam Constitutional: Appearance: Normal appearance. HENT: Nose: Nose normal. Neck: Vascular: No carotid bruit. Cardiovascular: Rate and Rhythm: Normal rate. Pulses: Normal pulses. Heart sounds: Normal heart sounds. Pulmonary: Effort: Pulmonary effort is normal. Abdominal: General: Bowel sounds are normal. Palpations: Abdomen is soft. Musculoskeletal: General: Normal range of motion. Cervical back: Normal range of motion. Right lower leg: No edema. Left lower leg: No edema. Skin: General: Skin is warm and dry. Neurological: General: No focal deficit present. Mental Status: She is alert. Psychiatric: Mood and Affect: Mood normal. Behavior: Behavior normal. Thought Content: Thought content normal. Judgment: Judgment normal. Allergies Gabapentin and Pregabalin Current Medications Current Outpatient Medications Medication Instructions albuterol 90 mcg/actuation inhaler 2 puffs, inhalation, Every 6 hours PRN amiodarone (PACERONE) 200 mg, oral, Daily ascorbic acid (VITAMIN C) 500 mg, Daily aspirin 81 mg, oral, 2 times weekly benzocaine-menthol (Cepastat Sore Throat) lozenge 1 lozenge, Mouth/Throat, Every 2 hour PRN ferrous sulfate 65 mg, Every 48 hours Invokana 300 mg, oral, Daily before breakfast lansoprazole (PREVACID) 30 mg, Daily lisinopril 2.5 mg, oral, Daily, Take in the evening magnesium oxide (MAG-OX) 400 mg, 2 times daily meclizine (ANTIVERT) 25 mg, 2 times daily melatonin 5 mg, Nightly metoprolol succinate XL (TOPROL-XL) 50 mg, oral, Daily oxyBUTYnin XL (DITROPAN-XL) 10 mg, Daily QUEtiapine (SEROQUEL) 200 mg, Nightly ranolazine (RANEXA) 500 mg, oral, 2 times daily rivaroxaban (XARELTO) 10 mg, oral, Daily rOPINIRole (REQUIP) 1 mg, 3 times daily rosuvastatin (CRESTOR) 20 mg, oral, Daily sertraline (Zoloft) 25 mg tablet 1 tablet, Daily (0630) spironolactone (ALDACTONE) 25 mg, oral, Daily Assessment/Plan 1. Atheros[place] coronary artery of [place] heart without angina pectoris Follow Up In Cardiology Follow Up In Cardiology 2. Cardiomyopathy, ischemic 3. Chronic systolic CHF (congestive heart failure) 4. Mixed hyperlipidemia 5. ICD (implantable cardioverter-defibrillator) discharge 6. Paroxysmal ventricular tachycardia Aspartate Aminotransferase Basic Metabolic Panel Thyroid Stimulating Hormone Complete Pulmonary Function Test (Spirometry/DLCO/Lung Volumes) metoprolol succinate XL (Toprol-XL) 50 mg 24 hr tablet ECG 12 Lead Aspartate Aminotransferase Basic Metabolic Panel Thyroid Stimulating Hormone 7. High risk medication use Aspartate Aminotransferase Basic Metabolic Panel Thyroid Stimulating Hormone Complete Pulmonary Function Test (Spirometry/DLCO/Lung Volumes) Aspartate Aminotransferase Basic Metabolic Panel Thyroid Stimulating Hormone 8. Type 2 diabetes mellitus without complication, without long-term current use of insulin 9. Current every day smoker 10. BMI 25.0-25.9,adult 11. Moderate mitral regurgitation 12. History of DVT (deep vein thrombosis) 13. Chronic anemia 14. Ventricular tachycardia (paroxysmal) Scribe Attestation By signing my name below, IErika RN , Scribe attest that this documentation has been prepared under the direction and in the presence of Oscar Rodriguez MD. Provider Attestation - Scribe documentation All medical record entries made by the Scribe were at my direction and personally dictated by me. Ihave reviewed the chart and agree that the record accurately reflects my personal performance of the history, physical exam, discussion and plan. documented in this encounter Plan of Treatment DateTypeDepartmentCare Team (Latest Contact Info)Srepcvvfqmo47/10/2026 3:10 PM EDTOffice Visit at [facility] [address] [phone] Oscar Rodriguez MD [facility], [address] [place] [address] NameTypePriorityAssociated DiagnosesOrder ScheduleAspartate AminotransferaseLab Routine Paroxysmal ventricular tachycardia High risk medication use Expected: 07/14/2025, Expires: 07/14/2026asic Metabolic PanelLabRoutine Paroxysmal ventricular tachycardia High risk medication use Expected: 07/14/2025, Expires: 07/14/2026Thyroid Stimulating HormoneLabRoutine Paroxysmal ventricular tachycardia High risk medication use Expected: 07/14/2025, Expires: 07/14/2026omplete Pulmonary Function Test (Spirometry/DLCO/Lung Volumes)PFTRoutine Paroxysmal ventricular tachycardia High risk medication use Expected: 07/14/2025 (Approximate), Expires: 07/14/2026documented as of this encounter Procedures Procedure NamePriorityDate/TimeAssociated DiagnosisCommentsECG 12-LEADRoutine 07/14/2025 1:00 PM EDT Paroxysmal ventricular tachycardia documented in this encounter Results * ECG 12 Lead (07/14/2025 1:00 PM EDT)Specimen (Source)Anatomical Location / LateralityCollection Method / VolumeCollection TimeReceived Time Narrative CPACS - 07/14/2025 1:30 PM EDT ECG revealed atrial pacemaker rhythm, septal myocardial infarction of undetermined age, diffuse repolarization normalities, abnormal ECG Authorizing ProviderResult TypeResult StatusOscar Rodriguez MDECJeanne ORDERABLES Final ResultPerforming OrganizationAddressCity/State/ZIP CodePhone Number CPACS documented in this encounter Visit Diagnoses Diagnosis Atherosclerosis of [place] coronary artery of [place] heart without angina pectoris- Primary Cardiomyopathy, ischemic Other specified forms of chronic ischemic heart disease Chronic systolic CHF (congestive heart failure) (Multi) Mixed hyperlipidemia ICD (implantable cardioverter-defibrillator) discharge Paroxysmal ventricular tachycardia High risk medication use Type 2 diabetes mellitus without complication, without long-term current use of insulin (Multi) Current every day smoker BMI 25.0-25.9,adult Moderate mitral regurgitation History of DVT (deep vein thrombosis) Chronic anemia Unspecified anemia Ventricular tachycardia (paroxysmal) (Multi) Paroxysmal ventricular tachycardia documented in this encounter Additional Health Concerns AssessmentNoted TimePHQ-9 Depression Total Score: 9001/22/2022 11:33 AM EDTA fall risk assessment has been completed for the gpieidw4203/01/2024 12:30 PM EDT documented as of this encounter Care Teams Team MemberRelationshipSpecialtyStart DateEnd Date Conchita Aden MD [address] [place] [address] [place] [address] PCP - GeneralFamily Medicine11/11/24 June Preston MD [address] [facility], [facility] [address] [place] [address] CardiologistCardiology-Clinical Cardiac Wryswkgdimjfrwcmy91/12/24documented as of this encounter
--- OUTSIDE RECORDS SUMMARY | 2025-07-31 09:00 | XMS_ITS ---
Author Organization [facility] es Address [address] [place] [address] Care Team Providers Care It Security Specialist Name Role Phone Darcie Garcia Primary Care Provider [phone] MISS Janna Jackson Unavailable Pooja Mott Unavailable [phone] REASON FOR VISIT NEW PATIENT Encounters Encounter Location Date Provider Diagnosis [facility] [address] [facility] [place] [address] 07/31/2025 Pooja Mott Plan Of Treatment No Information Progress Notes * JOSH KING ADOB:[birth year] (64 yo F)Acc No.[id number]:07/31/2025 Patient:?KING MORENO :?Pooja NewellstephanieDOB:1960???Age:64 Y???Sex:Female Date:07/31/2025Phone:[phone]:[address] [facility]-[id number]:Darcie Garcia Subjective: * Chief Complaints: * N EW PATIENT Billing Information: * Procedure Codes: * Electronic signature of Pooja Mott , KRISTA on 10/22/2025 at 02:50 PM ESTSign off status: Pending * Provider: Shemar Mott Date: 0 07/31/2025 Generated for Printing/Faxing/eTransmitting on:?10/22/2025 02:50 PM EST
--- OUTSIDE RECORDS SUMMARY | 2025-10-10 08:00 | XMS_ITS ---
Author Organization [facility] in [place] Address [address] [place] [address] Care Team Providers Care Yellow Pages Space Salesperson Name Role Phone Keiko CABELLO, Conchita Primary Care Provider Unavailab DANNY Suarez Unavailable [phone] REASON FOR VISIT MD Encounters Encounter Location Date Provider Diagnosis [facility] On[facility] [address] [place] [address] 10/10/2025 DANNY SEGURA Plan Of Treatment No Information Progress Notes * Latanya MORENODOB:1960 (64 yo F)Acc No.[id number]:10/10/2025 UNLOCKED PROGRESS NOTE Progress Notes Patient: Latanya KWONG :JIGNA SEGURA M.D.:1960???Age:64 Y ???Sex:FemaleDate:10/10/2025Phone:[phone]:[address] [place], [place] [id number]:Conchita Aden MD Subjective: * Chief Complaints: * 1 . MD. * Medical History: Objective: * Vitals: Assessment: Plan: * Treatment: * * Electronic signature of DANNY SEGURA MD on 10/22/2025 at 02:50 PM ESTSign off status: PendingVisit Status:?CANC (Cancelled) * Provider: Santosh SEGURA M.D. Date: 1 12/11/2024 Generated for Printing/Faxing/eTransmitting on:?10/22/2025 02:50 PM EST
--- OUTSIDE RECORDS SUMMARY | 2025-10-12 23:59 | XMS_ITS | Continuity of Care Document ---
Author Organization [facility] Address Unknown Care Team Providers Care Water Service Dispatcher Name Role Phone JOVANI HANSON Primary Care Physician Encounter FT_FIN [id number] Date(s): 10/12/25 - 10/12/[address] [place], [place] [address] Encounter Diagnosis Folate deficiency(Discharge Diagnosis) - 10/12/25 Macrocytosis(Discharge Diagnosis) - 10/12/25 Discharge Disposition: Home (Routine DC) Attending Physician: XANDER RAGSDALE CNP Referring Physician: Yimi CABELLO, Migel Savage Encounter Type: Outpatient Allergies, Adverse Reactions, Alerts SubstanceCriticalitySeverityReactionReaction SeverityStatusgabapentinLow criticalityMildLight-headednessActiveLyricaLow criticalityMildLight-headedness Active Treatment Plan Future Scheduled Tests Radiology* XR Abdomen 1 View 07/24/25 Immunizations Given and Recorded VaccineDateStatusRefusal Reasoninfluenza virus vaccine, inactivated06/21/21 Recordedinfluenza virus vaccine, inactivated01/22/21Recordedinfluenza virus vaccine, /13/18Recordedinfluenza virus vaccine, xjixsmhnvdq36/23/17 QqntntqtRWYI-VjS-5 (COVID-19) mRNA-1273 vaccine06/21/2108IdjtjuuqOUSN-DkX-8 (COVID- 19) mRNA-1273 vaccine02/19/21Recordeddiphtheria/pertussis, acel/tetanus adult 06/10/21Recordeddiphtheria/pertussis, acel/tetanus adult04/16/20Recorded diphtheria/pertussis, acel/tetanus adult08/02/19Recordedzoster vaccine, inactivated04/16/20Recordedzoster vaccine, vezicocjgzr14/2/19Recordedpneumococcal 23-valent vaccine04/16/20Recordedpneumococcal 23-valent vaccine11/09/06Recorded hepatitis A-hepatitis B vaccine04/16/20Recorded Medications amiodarone 200 mg Tab 200 mg = 1 tab(s), Oral, Daily, # 90 tab(s), Refills(s) 0, Irregular heartbeat Start Date: 04/23/25 Status: Ordered Medication Dispense Status: Completed Quantity: 90.0 Unit: tab(s) Total Allowed Fills: 1 Fills Dispensed: 0 folic acid Daily, Refills(s) 0 Start Date: 09/13/25 Status: Ordered Medication Dispense Status: Completed Total Allowed Fills: 1 Fills Dispensed: 0 Invokana 300 mg oral tablet 300 mg = 1 tab(s), Oral, Daily, Refills(s) 0, Blood glucose Start Date: 04/23/25 Status: Ordered Medication Dispense Status: Completed Total Allowed Fills: 1 Fills Dispensed: 0 lisinopril 5 mg Tab 5 mg = 1 tab(s), Oral, Daily, # 30 tab(s), Refills(s) 0, High blood pressure Start Date: 04/23/25 Status: Ordered Medication Dispense Status: Completed Quantity: 30.0 Unit: tab(s) Total Allowed Fills: 1 Fills Dispensed: 0 magnesium oxide 200 mg, BID, Refills(s) 0, Prophylaxis Start Date: 04/23/25 Status: Ordered Medication Dispense Status: Completed Total Allowed Fills: 1 Fills Dispensed: 0 meclizine 25 mg Tab 25 mg = 1 tab(s), Oral, BID, PRN for dizziness, # 60 tab(s), Refills(s) 0 Start Date: 04/23/25 Status: Ordered Medication Dispense Status: Completed Quantity: 60.0 Unit: tab(s) Total Allowed Fills: 1 Fills Dispensed: 0 Melatonin 5 mg oral tablet 5 mg = 1 tab(s), Oral, Once a day (at bedtime), PRN for insomnia, # 60 tab(s), Refills(s) 0 Start Date: 04/23/25 Status: Ordered Medication Dispense Status: Completed Quantity: 60.0 Unit: tab(s) Total Allowed Fills: 1 Fills Dispensed: 0 metoprolol succinate 25 mg ER Tab 25 mg = 1 tab(s), Oral, Daily, # 30 tab(s), Refills(s) 0, High blood pressure Start Date: 04/23/25 Status: Ordered Medication Dispense Status: Completed Quantity: 30.0 Unit: tab(s) Total Allowed Fills: 1 Fills Dispensed: 0 Nexium 40 mg Cap-EC 40 mg = 1 cap(s), Oral, Daily, # 90 cap(s), Refills(s) 3, Pharmacy: [facility]/pharmacy #[id number], 152, cm, 09/13/25 9:40:00 EST, Height/Length Dosing, 65.6, kg, 09/13/25 9:40:00 EST, Weight Dosing Start Date: 09/13/25 Status: Ordered Medication Dispense Status: Completed Quantity: 90.0 Unit: cap(s) Total Allowed Fills: 4 Fills Dispensed: [address] Tab 40 mg = 1 tab(s), Oral, Daily, Control of stomach acid Start Date: 04/23/25 Status: Ordered Medication Dispense Status: Completed Total Allowed Fills: 1 Fills Dispensed: 0 quetiapine 200 mg Tab 200 mg = 1 tab(s), Oral, Daily, at night, # 180 tab(s), Refills(s) 0, Psychosis Start Date: 04/23/25 Status: Ordered Medication Dispense Status: Completed Quantity: 180.0 Unit: tab(s) Total Allowed Fills: 1 Fills Dispensed: 0 ranolazine 500 mg oral ER Tab 500 mg = 1 tab(s), Oral, BID, # 60 tab(s), Refills(s) 0, Chest pain Start Date: 04/23/25 Status: Ordered Medication Dispense Status: Completed Quantity: 60.0 Unit: tab(s) Total Allowed Fills: 1 Fills Dispensed: 0 ropinirole 2 mg Tab 2 mg = 1 tab(s), TID, at bedtime, Refills(s) 0, Other (see comment) Start Date: 04/23/25 Status: Ordered Medication Dispense Status: Completed Total Allowed Fills: 1 Fills Dispensed: 0 rosuvastatin 20 mg Tab 20 mg = 1 tab(s), Oral, Daily, # 30 tab(s), Refills(s) 0, High cholesterol Start Date: 04/23/25 Status: Ordered Medication Dispense Status: Completed Quantity: 30.0 Unit: tab(s) Total Allowed Fills: 1 Fills Dispensed: 0 spironolactone 25 mg Tab 25 mg = 1 tab(s), Oral, Daily, # 30 tab(s), Refills(s) 0, diuretic/water pill Start Date: 04/23/25 Status: Ordered Medication Dispense Status: Completed Quantity: 30.0 Unit: tab(s) Total Allowed Fills: 1 Fills Dispensed: 0 Xarelto Oral, BID, Refills(s) 0, Blood Thinner Start Date: 05/11/25 Status: Ordered Medication Dispense Status: Completed Total Allowed Fills: 1 Fills Dispensed: 0 Zofran 4 mg Tab 4 mg = 1 tab(s), Oral, q8hr, PRN Nausea/Vomiting, X 10 day(s), # 30 tab(s), Refills(s) 1, Pharmacy:[facility]/pharmacy #[id number], 152, cm, 09/13/25 9:40:00 EST, Height/Length Dosing, 65.6, kg, 09/13/25 9:40:00EST, Weight Dosing Start Date: 10/04/25 Stop Date: 10/24/25 Status: Ordered Medication Dispense Status: Completed Quantity: 30.0 Unit: tab(s) Total Allowed Fills: 2 Fills Dispensed: 0 Problem List ConditionConfirmationCourseEffective DatesStatusHealth StatusInformantCAD (coronary artery disease)ConfirmedActiveOn deep vein thrombosis (DVT) prophylaxisConfirmedActiveFolate deficiencyConfirmedActivepatientGERD (gastroesophageal reflux disease)ConfirmedActiveHistory of ileostomyConfirmed ActiveHistory of colon polypsConfirmedActiveHTN (hypertension)ConfirmedActiveIDA (iron deficiency anemia)ConfirmedActiveMacrocytosisConfirmedActivepatientNausea ConfirmedActiveParoxysmal atrial mcyejtkpk[id number] ActiveTobacco useConfirmedActivepatient 1Added secondary to documentation in Social History. Procedures ProcedureDateRelated DiagnosisBody SiteStatusColonoscopy05/24/25Completed Colonoscopy05/23/2553MibvhxfxsDnkqxmqtpvwfmzqqxssifijzzz74/23/25Completed DefibrillatorCompletedGallbladderCompletedIleostomy - stomaCompletedTubal ligationCompleted 1normal, biopsy taken for H.Pylori Social History Social History TypeResponseSmoking Qyhzkq38 or more cigarettes (1/2 pack or more)/day in last 30 days;Never; Type: Cigarettes entered on: 10/12/25Birth SexFemaleSex RepresentationFemale (finding) Patient Care team information Care Team Personnel Name: JOVANI HANSON CNP Position: FT Physician Member Role: Primary Care Physician Address: [address] [place] [address], [address] Telecom: Care Team Related Persons Name: JOSH, NANCY Name: JOSH, NANCY Name: JOSH, NANCY Name: JOSH, NANCY Name: JOSH, NANCY Name: JOSH, NANCY Name: JOSH, NANCY Name: JOSH, NANCY Insurance Providers Guarantor name: KING Frost JOSH [employer] Plan Information #: 1 Payer: [place] Payer Identifier: [id number] Member Number: [id number] Group Number: [id number] Subscriber Identifier: [id number] Relationship to Subscriber: self Coverage Type: MEDICARE Coverage Verification Date: 25 Telecom: [phone] Address: [id number] [place] [address] [place] Health Plan Information #: 2 Payer: Medicaid Payer Identifier: [id number] Member Number: [id number] Group Number: [id number] Subscriber Identifier: [id number] Relationship to Subscriber: self Coverage Type: MEDICAID Coverage Verification Date: 25 Telecom: [phone] Address: [id number]
[2025-10-22 13:58] VITALS: BP 119/76; PULSE 61; TEMP 36.6; O2SAT 96; BMI 26.0
--- NOTE | 2025-10-22 14:09 | ED.GENADUL1 ---
HPI HPI - General Adult General Chief complaint: Nausea/Vomiting/Diarrhea Stated complaint: NAUSEA Time Seen by Provider: 10/22/25 14:05 History of Present Illness HPI narrative: 64-year-old female presents for nausea. She has chronic nausea but it was worse today and she did not have any medication at home. She states Zofran does not help her and Phenergan was not effective. No fever or blood in her stool. Related Data Home Medications ?Medication ?Instructions ?Recorded ?Confirmed amiodarone 200 mg tablet 200 mg PO Q24H 10/22/24 10/10/25 lansoprazole 30 mg capsule,delayed 30 mg PO .ACB 10/22/24 04/22/25 release meclizine 25 mg tablet 25 mg PO BID PRN dizziness 10/22/24 10/10/25 melatonin 5 mg tablet 5 mg PO DAILY 10/22/24 10/10/25 metoprolol succinate 25 mg 25 mg PO DAILY 10/22/24 10/10/25 tablet,extended release 24 hr ranolazine 500 mg tablet,extended 500 mg PO Q12H 10/22/24 10/10/25 release,12 hr rosuvastatin 10 mg tablet 20 mg PO DAILY 10/22/24 10/10/25 magnesium 200 mg tablet 200 mg PO BID 10/30/24 10/10/25 lisinopril 5 mg tablet 5 mg PO .QD 10/31/24 10/10/25 rivaroxaban 10 mg tablet (Xarelto) 10 mg PO Q24H 04/09/25 10/10/25 ropinirole 1 mg tablet 1 mg PO HS 04/09/25 10/10/25 sertraline 25 mg tablet 25 mg PO Q24H 04/09/25 10/10/25 spironolactone 25 mg tablet 25 mg PO .Q24 04/09/25 10/10/25 canagliflozin 300 mg tablet 300 mg PO DAILY 04/22/25 10/10/25 (Invokana) pantoprazole 40 mg tablet,delayed 40 mg PO DAILY 04/22/25 10/10/25 release quetiapine 200 mg tablet 200 mg PO DAILY 04/22/25 10/10/25 ropinirole 2 mg tablet 2 mg PO BEDTIME 04/22/25 10/10/25 ondansetron 4 mg disintegrating mg 10/10/25 tablet Held on 10/10/25. Instructions: Resume on 10/20/25. oxybutynin chloride 10 mg mg PO 10/10/25 tablet,extended release 24 hr Previous Rx's ?Medication ?Instructions ?Recorded promethazine 25 mg tablet 25 mg PO TID PRN nausea and 10/10/25 vomiting #20 tabs prochlorperazine maleate 10 mg 10 mg PO Q6H PRN nausea and 10/22/25 tablet (Compazine) vomiting #20 tabs Allergies Allergy/AdvReac Type Severity Reaction Status Date / Time gabapentin AdvReac Dizziness Verified 10/10/25 14:32 pregabalin AdvReac dizziness Verified 10/10/25 14:32 Opioid HPI Opioid Management Most Recent Opioid Data: Last Pain Scale 8 10/10/25, 14:41 Last Pain Intensity 0 10/31/24, 09:34 Last ORT Total Score 0 04/10/25, 21:58 Last ORT Risk Category Low Risk 04/10/25, 21:58 Review of Systems ROS Narrative A ten point review of systems is negative except as noted above. [facility] Medical History (Updated 10/22/25 @ 15:06 by Jesus Mason MD) GERD without esophagitis ?K21.9 - Gastro-esophageal reflux disease without esophagitis (ICD-10) Bulging lumbar disc ?M51.369 - Other intervertebral disc degeneration, lumbar region without mention of lumbar back pain or lower extremity pain (ICD-10) Restless leg syndrome ?G25.81 - Restless legs syndrome (ICD-10) Restless leg syndrome ?G25.81 - Restless legs syndrome (ICD-10) Pacemaker ?Z95.0 - Presence of cardiac pacemaker (ICD-10) Acute GI bleeding ?K92.2 - Gastrointestinal hemorrhage, unspecified (ICD-10) Elevated INR ?R79.1 - Abnormal coagulation profile (ICD-10) Pneumonia ?J18.9 - Pneumonia, unspecified organism (ICD-10) Dyspnea ?R06.00 - Dyspnea, unspecified (ICD-10) Dizziness ?R42 - Dizziness and giddiness (ICD-10) Diabetes ?E11.9 - Type 2 diabetes mellitus without complications (ICD-10) Bipolar 1 disorder, depressed ?F31.9 - Bipolar disorder, unspecified (ICD-10) HTN (hypertension) ?I10 - Essential (primary) hypertension (ICD-10) High cholesterol ?E78.00 - Pure hypercholesterolemia, unspecified (ICD-10) Afib ?I48.91 - Unspecified atrial fibrillation (ICD-10) Surgical History H/O tubal ligation ?Z98.51 - Tubal ligation status (ICD-10) Hx of cholecystectomy ?Z90.49 - Acquired absence of other specified parts of digestive tract (ICD-10) Status post other internal cardiac defibrillator procedure ?Z95.0 - Presence of cardiac pacemaker (ICD-10) History of bowel resection ?Z90.49 - Acquired absence of other specified parts of digestive tract (ICD-10) Family History Father Heart attack Brother Heart attack Sister Heart attack Diabetes Son Diabetes Social History Within the past year, how often did you have a drink containing alcohol: never Within the past year, how often did you have six or more drinks on one occasion: never Score interpretation: A score less than 3 is consistent with normal alcohol consumption. 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 Skin:Warm, dry, no pallor noted.There is no rash noted. Head:Normocephalic, atraumatic Eye: Normal conjunctiva, no drainage Ears, Nose, Mouth, and Throat: oral mucosa is somewhat dry. Nares patent. Cardiovascular:Regular Rate and Rhythm Respiratory:Patient is in no distress, no accessory muscle use, lungs are clear to auscultation, no wheezing, rales or rhonchi Back:non-tender GI: Soft and nontender Musculoskeletal: The patient has no evidence of calf tenderness, no pitting edema, symmetrical pulses noted bilaterally Neurological:A&O, normal speech Psychiatric:Cooperative Constitutional Vital Signs, click to edit/add: Last Vital Signs Temp 98 F 10/22/25 13:58 Pulse 61 10/22/25 13:58 Resp 16 10/22/25 13:58 BP 119/76 10/22/25 13:58 Pulse Ox 96 10/22/25 13:58 Course Vital Signs Vital signs: Vital Signs Temperature 98 F 10/22/25 13:58 Pulse Rate 61 10/22/25 13:58 Respiratory Rate 16 10/22/25 13:58 Blood Pressure 119/76 10/22/25 13:58 Pulse Oximetry 96 10/22/25 13:58 Temperature 98 F 10/22/25 13:58 Pulse Rate 61 10/22/25 13:58 Respiratory Rate 16 10/22/25 13:58 Blood Pressure 119/76 10/22/25 13:58 Pulse Oximetry 96 10/22/25 13:58 Medical Decision Making MDM Narrative Medical decision making narrative: Blood work is nonspecific. She was given IV fluids and IV Compazine and feels much better and is discharged home with a prescription for Compazine. Treatment diagnosis and follow-up were discussed with the patient. Differential Diagnosis Differential Diagnosis: Chronic nausea, dehydration Lab Data Lab results reviewed: Yes I reviewed the patient's lab results Labs: Lab Results 10/22/25 Range/Units 14:20 WBC 9.3 (4.0-11.0) 10^3/uL RBC 4.29 (4.20-5.40) 10^6/uL Hgb 15.0 (12.0-16.0) g/dL Hct 43.0 (36.0-48.0) % MCV 100.2 H (81.0-99.0) fL MCH 35.0 H (26.7-34.0) pg MCHC 34.9 (29.9-35.2) g/dL RDW 12.7 (11.0-15.0) % Plt Count 208 (150-450) 10^3/uL MPV 11.6 (9.5-13.5) fL Neut % (Auto) 71.8 (43.0-75.0) % Lymph % (Auto) 20.2 L (20.5-60.0) % [place] % (Auto) 5.8 (1.7-12.0) % Eos % (Auto) 1.5 (0.9-7.0) % Baso % (Auto) 0.5 (0.2-2.0) % Neut # (Auto) 6.7 H (1.4-6.5) 10^3/uL Lymph # (Auto) 1.9 (1.2-3.8) 10^3/uL [place] # (Auto) 0.5 (0.3-0.8) 10^3/uL Eos # (Auto) 0.1 (0.0-0.7) 10^3/uL Baso # (Auto) 0.1 (0.0-0.1) 10^3/uL Abs Immat Gran (auto) 0.02 (0.00-0.03) 10^3/uL Imm/Tot Granulo (auto) 0.2 (0.0-0.5) % Sodium 136 (136-145) mmol/L Potassium 5.3 H (3.5-5.1) mmol/L Chloride 102 (98-107) mmol/L Carbon Dioxide 25.0 (21.0-32.0) mmol/L Anion Gap 14.3 BUN 12.0 (7.0-18.0) mg/dL Creatinine 0.81 (0.55-1.02) mg/dL Est GFR ( Amer) >60 (>=60 mL/min/1.73m^2) Est GFR (Non-Af Amer) >60 (>=60 mL/min/1.73m^2) BUN/Creatinine Ratio 14.8 Glucose 134 H (74-106) mg/dL Calcium 9.1 (8.5-10.1) mg/dL Discharge Plan Discharge Chief Complaint: Nausea/Vomiting/Diarrhea Clinical Impression: Nausea Patient Disposition: Home, Self-Care Time of Disposition Decision: 15:05 Condition: Good Mode of Transportation: Private Vehicle Prescriptions / Home Meds: New prochlorperazine maleate [Compazine] 10 mg tablet 10 mg PO Q6H PRN (Reason: nausea and vomiting) Qty: 20 0RF No Action Xarelto 10 mg tablet 10 mg PO Q24H ropinirole 1 mg tablet 1 mg PO HS spironolactone 25 mg tablet 25 mg PO .Q24 sertraline 25 mg tablet 25 mg PO Q24H Invokana 300 mg tablet 300 mg PO DAILY pantoprazole 40 mg tablet,delayed release (DR/EC) 40 mg PO DAILY quetiapine 200 mg tablet 200 mg PO DAILY ropinirole 2 mg tablet 2 mg PO BEDTIME amiodarone 200 mg tablet 200 mg PO Q24H lansoprazole 30 mg capsule,delayed release(DR/EC) 30 mg PO .ACB meclizine 25 mg tablet 25 mg PO BID PRN (Reason: dizziness) melatonin 5 mg tablet 5 mg PO DAILY metoprolol succinate 25 mg tablet extended release 24 hr 25 mg PO DAILY ranolazine 500 mg tablet extended release 12 hr 500 mg PO Q12H rosuvastatin 10 mg tablet 20 mg PO DAILY magnesium 200 mg tablet 200 mg PO BID lisinopril 5 mg tablet 5 mg PO .QD oxybutynin chloride 10 mg tablet extended release 24hr PO ondansetron 4 mg tablet,disintegrating promethazine 25 mg tablet 25 mg PO TID PRN (Reason: nausea and vomiting) Qty: 20 0RF Print Language: Argentine Instructions: Acute Nausea and Vomiting (ED) Referrals: JOVANI HANSON [Primary Care Provider, Unknown] - 1 week
[2025-10-22] MEDS: PROCHLORPERAZINE 10 MG/2 ML VIAL IV (14:33)
[2025-10-22] MEDS: 0.9 % SODIUM CHLORIDE 1,000 ML 1000 ML IV (14:34)
[2025-10-22 14:37] LABS: Hematocrit 43.0 % (36.0-48.0); Hemoglobin 15.0 g/dL (12.0-16.0); Immature Granulocytes Abs Auto 0.02 10^3/uL (0.00-0.03); Immature Granulocytes Pct Auto 0.2 % (0.0-0.5); Lymphocytes Absolute Auto 1.9 10^3/uL (1.2-3.8); Mean Corpuscular HGB Conc 34.9 g/dL (29.9-35.2); Mean Corpuscular Hemoglobin 35.0 pg (26.7-34.0); Mean Corpuscular Volume 100.2 fL (81.0-99.0); Platelet Count 208 10^3/uL (150-450); Red Blood Count 4.29 10^6/uL (4.20-5.40); White Blood Count 9.3 10^3/uL (4.0-11.0)
--- OUTSIDE RECORDS SUMMARY | 2025-10-22 14:49 | XMS_ITS | Patient Health Record ---
Author Organization [facility] Address [address] [place] [address] Care Team Providers Care Sharepoint Specialist Name Role Phone Darcie Garcia Primary Care Provider Manuel MISS Saldivar Unavailable Dr. Tommie So Unavailable [phone] Nicole Benson Unavailable [phone] Pooja Mott Unavailable [phone] Allergies No Known Allergies Reason For Referral No Information Medications Medication SIG (Take, Route, Frequency, Duration) Notes Start Date End Date Status Magnesium 400 MG Tablet as directed Orally ActiveOLANZapine 2.5 MG TabletTAKE 1 TABLET BY MOUTH TWICE A DAY NEEDED FOR AGITATIONActiveMelatonin 5 MG Tablet1 tablet in the evening Orally Once a day; Duration: 90 daysActiveQUEtiapine Fumarate 200 MG Tablet1 tablet Orally Once a day; Duration: 90 days09/07/2024ctiveAspir-81 81 MG Tablet Delayed Release1 tablet Orally Once a dayActiveLurasidone HCl 60 MG Tablet1 tablet with food Orally Once a day; Duration: 90 daysActiveSpironolactone 25 MG Tablet1 tablet OrallyActiveLisinopril 5 MG Tablet1 tablet Orally Once a day; Duration: 90 days 02/03/2011ctiveWarfarin Sodium 2.5 MG Tablet1 tablet Orally Once a day; Duration: 30 day(s)ActiveMeclizine HCl 25 MG Tablet1 tablet as needed Orally three times a day; Duration: 30 daysActiveRanolazine ER 500 MG Tablet Extended Release 12 HourTAKE 1 TABLET BY MOUTH TWICE A DAY FOR 30 DAYS; Duration: 90 ActiveLurasidone HCltake 1 tablet by mouth every evening with foodActivePrevacid 30 MG Capsule Delayed Release1 capsule before a meal Orally Once a day; Duration: 90 daysActiveInvokana 300 MG Tablet1 tablet before the first meal of the day Orally Once a day; Duration: 90 dayssubstitutions permittedActive Rosuvastatin Calcium 10 MG Tablet1 tablet Orally Once a dayActiveGabapentin 400 MG Capsule1 capsule Orally Once a day; Duration: 30 daysActiveMetoprolol Succinate 100 MG Capsule ER 24 Hour Sprinkle1 capsule Orally Once a dayActive lamoTRIgine 100 MG Tablet2 tablets Orally Once a day05/06/2023ctive Social History Tobacco Use: Social History Observation Description Date Details (start date - stop date) Current Smoker NA - NA Social History GeneralSocial InfoQuestionAnswerNotesTransition of Care:ER/UC/hospital since last office visit?Yes, report on fileSpecialist seen since last office visit?No Substance abuse/mental health issues of patient/familyPatient -DeniesAbility to understand healthcare/treatmentPatient:GoodSexual Hx:Had sex in the last 12 months (vaginal, oral, or anal)?NoHave you ever had an STD?NoSocial/Support Concerns:Patient:NoBehaviors affecting healthPoor/Risky Behaviors:Denies- Communication Barrier:Language Barrier?:NoDrug/Alcohol:Social InfoQuestionAnswer NotesAUDIT-C (Standard)Did you have a drink containing alcohol in the past year? [id number] Use:Social InfoQuestionAnswerNotesTobacco Control (Standard)Tobacco use:Current smokerSection Notes: Lives with sister and 2 niec [...] Status Risk Notes Problem Restless legs syndrome (39160564) Restles s legs syndrome (G25.81) ActiveconfirmedProblemAcquired spondylolisthesis (725194361)Spondylolisthesis, 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)ActiveconfirmedProblemDegeneration of lumbar intervertebral disc (54586036)Other intervertebral disc degeneration, lumbar region (M51.36)ActiveconfirmedProblemUrge incontinence of urine (82771599)Urge incontinence (N39.41)ActiveconfirmedProblemAnxiety (16291348)Anxiety (F41.9) ActiveconfirmedProblemBipolar 1 disorder (408671949)Bipolar 1 disorder (F31.9) ActiveconfirmedProblemObese class I (finding) (831858657126812)Obesity (BMI 30.0-34.9) (E66.9)ActiveconfirmedProblemParesthesia (finding) (58724124) Paresthesias (R20.2)ActiveconfirmedProblemCOPD - Chronic obstructive pulmonary disease (08754572)Chronic obstructive pulmonary disease, unspecified COPD type (J44.9)ActiveconfirmedProblemGastroesophageal reflux disease without esophagitis (350673494)Gastroesophageal reflux disease without esophagitis (K21.9)Active confirmedProblemAtrial fibrillation (14906846)Atrial fibrillation, unspecified type (I48.91)ActiveconfirmedProblemOral thrush (19197643)Oral thrush (B37.0) ActiveconfirmedProblemEssential hypertension (76192124)Hypertension, unspecified type (I10)ActiveconfirmedProblemUncomplicated moderate persistent asthma (062379627)Moderate persistent asthma, unspecified whether complicated (J45.40) ActiveconfirmedProblemBody mass index 30+ - obesity (022397754)BMI 30.0- 30.9,adult (Z68.30)ActiveconfirmedProblemPolyneuropathy due to type 2 diabetes mellitus (859982189)Type 2 diabetes mellitus with diabetic polyneuropathy, unspecified whether buttermaker helper insulin use (E11.42)ActiveconfirmedProblem Oropharyngeal dysphagia (95677398)Oropharyngeal dysphagia (R13.12)Active confirmedProblemMixed bipolar affective disorder, moderate (194060867)Bipolar mixed affective disorder, moderate (F31.62)ActiveconfirmedProblemAnticoagulant therapy (057212967)Anticoagulated on Coumadin (Z79.01)ActiveconfirmedProblem Stable angina due to coronary arteriosclerosis (disorder) (41292840197889170) Coronary artery disease of [place] heart with stable angina pectoris, unspecified vessel or lesion type (I25.118)Activeconfirmed Encounters Encounter Location Date Provider Diagnosis [facility] [address] [address] 09/11/2025 Tommie So Disturbances in toot h eruption K00.6 ; Encounter for dental examination and cleaning with abnormal findings Z01.21 and Complete loss of teeth, unspecified cause, class I K08.101 [facility] [address] [place] [address] 11/28/2024 Darcie Garcia Hypertension, unspecified type I10 Assessments Encounter Date Diagnosis (ICD Code) Assessment Notes Treatment Notes Treatment Clinical Notes Section Notes 11/28/2024 Hypertension, unspecified type ( ICD-10 - I10) 09/11/2025Disturbances in tooth eruption (ICD-10 - K00.6)09/11/2025Encounter for dental examination and cleaning with abnormal findings (ICD-10 - Z01.21) 09/11/2025omplete loss of teeth, unspecified cause, class I (ICD-10 - K08.101) Plan Of Treatment Pending Test Test Name Order Date Ferritin 06/29/2024 Magnesium 06/29/2024 US carotid doppler BI 08/12/2024 Iron and TIBC Profile 06/29/2024 Insurance Providers Payer Name Payer Address Payer Phone Subscriber Number Group Number Insured Name Patient Relationship to Insured Coverage Start Date Coverage End Date [employer] [address] [place] [phone] [id number] KING MORENO Self - patient is the insured 3 [employer] MEDICA[employer] SEC TO [address] [place] [phone] [id number], BETSYSelf - patient is the [id number] 2021[facility] [address] [facility] [place] [id number], BETSY Self - patient is the [id number] 2023[facility]ERLY [facility] [facility] [facility] [address] [address] [place] [id number], BETSYSelf - patient is the towaoen5609/11/2025 Medical (General) History Medical History History ICD Code T2DM CAD with 4 stentsAtrial FibrillationPECOPDBipolar DisorderVertigoInsomniaGERD (AVM)AnxietyUpper DenturesSurgical History Surgery Date(Month/Year) heart stent placement x4 06/08 lap-anayeli 07/08 CARDIAC CATHETER 11/2011 carpal tunnel release 01/2023 Stress Test 04/2023 Pacemaker 08/2023 cardiac cath 08/2024 Hospitalization History Reason Date(Month/Year) new medication - had to be observed 419 24 see above
--- OUTSIDE RECORDS SUMMARY | 2025-10-22 14:50 | XMS_ITS | Clinical Summary ---
Author Organization [facility] Address [address] [place] [address] Phone Care Team Providers Care Coding Technician Name Role Phone June Preston MD Unavailable Conchita Aden MD Primary Care Provider [phone] Allergies Active AllergyReactionsCriticalityNoted DateCommentsGabapentinDizzinessLow 07/14/20252150OkrfmfsqswVgyafverzEgc46/12/2025 Medications MedicationSigDispense QuantityRefillsLast FilledStart DateEnd DateStatus lansoprazole [...] aspirin 81 mg EC tablet Indications:Atherosclerosis of poarch coronary artery of poarch heart without angina pectorisTake 1 tablet (81 mg) by mouth 2 times a week.11/14/2024 11/14/2025ctive Invokana 300 mg Indications:Type 2 diabetes mellitus without complication, without long-term current use of insulin (Multi),Atherosclerosis of poarch coronary artery of poarch heart without angina pectoris,Chronic systolic CHF (congestive heart failure) (Multi)Take 1 tablet (300 mg) by mouth once daily in the morning. Take before meals. 90 tablet 301/[id number] ranolazine (Ranexa) 500 mg 12 hr tablet Indications:Atherosclerosis of poarch coronary artery of poarch heart without angina pectorisTake 1 tablet (500 mg) by mouth 2 times a day. 180 tablet /[id number] albuterol 90 mcg/actuation inhaler Indications:ICD (implantable cardioverter-defibrillator) [...] mg) by mouth once daily. 90 tablet 308//084175/6Active sertraline (Zoloft) 25 mg tablet Take 1 tablet (25 mg) by mouth early in the morning..5Active lisinopril 2.5 mg tablet Indications:Essential hypertensionTake 1 tablet (2.5 mg) by mouth once daily. 90 tablet 309/6Active lisinopril 5 mg tablet Indications:Chronic systolic CHF (congestive heart failure) (Multi)TAKE ONE TABLET BY MOUTH ONCE DAILY 90 tablet 07/26/2025tive rosuvastatin (Crestor) 20 mg tablet Indications:Atherosclerosis of poarch coronary artery of poarch heart without angina pectoris,Mixed hyperlipidemiaTAKE ONE TABLET BY MOUTH ONCE DAILY 90 tablet 10/05/2025tive spironolactone (Aldactone) 25 mg tablet Indications:Essential hypertensionTAKE ONE TABLET BY MOUTH ONCE DAILY. 90 tablet 10/05/2025tive metoprolol succinate XL (Toprol-XL) 50 mg 24 hr tablet Indications:Atherosclerosis of poarch coronary artery of poarch heart without angina pectorisTake 1 tablet (50 mg) by mouth once daily. Do not crush or chew. 30 tablet 111ctive rosuvastatin (Crestor) 20 mg tablet Indications:Atherosclerosis of poarch coronary artery of poarch heart without angina pectoris,Mixed hyperlipidemiaTake 1 tablet (20 mg) by mouth once daily. 90 tablet Discontinued spironolactone (Aldactone) 25 mg tablet Indications:Essential hypertensionTake 1 tablet (25 mg) by mouth once daily. 90 tablet /01/2025Discontinued metoprolol succinate XL (Toprol-XL) 50 mg 24 hr tablet Indications:Paroxysmal ventricular tachycardiaTAKE 1 TABLET BY MOUTH TWICE WEEKLY 24 tablet /01/2025Discontinued metoprolol succinate XL (Toprol-XL) 50 mg 24 hr tablet Indications:Paroxysmal ventricular tachycardia,Essential hypertensionTAKE ONE TABLET BY MOUTH TWICE WEEKLY. 180 tablet /Discontinued metoprolol succinate XL (Toprol-XL) 50 mg 24 hr tablet Indications:Paroxysmal ventricular tachycardia,Essential hypertensionTake 1 tablet (50 mg) by mouth once daily. 90 tablet /Discontinued metoprolol succinate XL (Toprol-XL) 50 mg 24 hr tablet Indications:Paroxysmal ventricular tachycardia,Essential hypertensionTAKE ONE TABLET BY MOUTH TWICE WEEKLY. 24 tablet Discontinued(Med List Cleanup) Active Problems ProblemNoted DateDiagnosed DateHigh risk medication use07/14/2025VT (ventricular tachycardia)04/14/2025ICD (implantable cardioverter-defibrillator) discharge 01/08/2025MI 25.0-25.9,adult09/27/2024aroxysmal ventricular tachycardia 08/24/2024Ventricular iguvmgkknyz31/08/2024ICD (implantable cardioverter- defibrillator) in place11/06/2023ardiomyopathy, szfluavn27/05/2024cquired uqnkbbymqjxdpuvjp39/29/2023ipolar 1 pyruuyrv98/29/2023egeneration of lumbar intervertebral disc09/30/2023Mixed bipolar affective disorder, moderate 09/30/2023Moderate persistent asthma without kotuufzuzgay90/29/2023Oral thrush 09/30/2023Oropharyngeal dtdfudgfw05/29/2023olyneuropathy due to type 2 diabetes zgueudbn27/29/2023Stable angina pectoris due to arteriosclerosis of coronary oajvmt3209/30/2023Urge incontinence of urine09/30/2023therosclerosis of poarch coronary artery of poarch heart without angina ppyygtrp19/27/2023hronic obstructive pulmonary wrzdhme5507/29/2023hronic systolic CHF (congestive heart failure)07/29/2023urrent every day urmufg2007/29/2023Essential hypertension 07/29/20230317Jbxuyhzmtnvnqo05/27/2023Intermittent xyvtfwpeswvh41/27/2023Iron deficiency eicwre3207/29/2023ulmonary tfvypdlz27/27/2023Status post coronary bprpimmisnm10/27/2023Type 2 diabetes iocthitr00/27/0739Rpthojg08/24/2022Chronic back pain11/25/2021hronic vhuraeaaey16/24/2022Gastroesophageal reflux disease without kpuysyevojn44/24/2022evere episode of recurrent major depressive disorder, without psychotic /24/2022tatus post Brandy procedure 11/25/2021ostoperative ileus05/30/2015 Overview (09/30/2023): NG tube for bowel decompression, clamp trials completed with return of bowel function Postoperative pain05/23/2015 Overview (09/30/2023): 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 and will transition to oral medication with the return of bowel function Vascular insufficiency of ihaldxtho01/08/2015 Resolved Problems ProblemNoted DateDiagnosed DateResolved DateEncounter to discuss test results Paroxysmal ventricular iophicrupwf28MI 29.0-29.9,adultEncounter for medication review and bczfunkrdp70Encounter to discuss treatment unppwzv8211/06/2023 11/11/20243574Uiimysn77VT (ventricular tachycardia)09/30/2023 11/11/2024History of ischemic yqumrvzujmspxq38-fib11/25/2021 11/11/2024Elevated tyfrsmbd02 Overview (09/30/2023): Cardiology consulted Encounters DateTypeDepartmentCare DkgsRioxewgfjqu34/19/2025[facility] [address] [place] [phone] Aida Ritter, RN Atherosclerosis of poarch coronary artery of poarch heart without angina pectoris (Primary Dx)10/16/2025[facility] [address] [phone] Oscar Rodriguez MD Paroxysmal ventricular tachycardia; Essential bqutqytaekdq50/12/2025Refill at [facility] [address] [phone] Oscar Rodriguez MD Paroxysmal ventricular tachycardia; Essential edlthvwgswep80/04/2025Refill at [facility] [address] [place] [phone] Oscar Rodriguez MD Paroxysmal ventricular tachycardia; Atherosclerosis of poarch coronary artery of poarch heart without angina pectoris; Mixed hyperlipidemia; Essential pqpdnqfpbjea45/02/2025 7:55 AM EST - 10/03/2025 11:[address] [facility] [address] [place] [place] [phone] ICD (implantable cardioverter-defibrillator) in place; Paroxysmal ventricular tachycardia Discharge Disposition: Home08/01/20[facility] [address] [place] [phone] Oscar Rodriguez MD Paroxysmal ventricular fbupfrkzyro40/23/2025[facility] [address] [place] [phone] Oscar Rodriguez MD Chronic systolic CHF (congestive heart failure) (Multi) (Primary Dx)from Last 3 Months Immunizations ImmunizationAdministration DatesNext DueFlu vaccine (IIV4), preservative free *Check age/dose*09/14/2018,08/24/2017Flu vaccine, quadrivalent, no egg protein, age 6 month or greater (FLUCELVAX)06/21/2021Hep A / Hep B004/16/2020Influenza, Xqmmgpxjtlf10/01/2019,12/08/2016,09/24/2014,11/02/2009Influenza, seasonal, sovugnzacr67/23/2021Pneumococcal polysaccharide vaccine, 23-valent, age 2 years and older (PNEUMOVAX 23)04/16/2020,12/08/2016,11/09/2006Tdap vaccine, age 7 year and older (BOOSTRIX, ADACEL)06/10/2021,04/16/2020,08/02/2019Zoster vaccine, recombinant, adult (SHINGRIX)04/16/2020,08/03/2019 Family History Medical HistoryRelationNameCommentsCABGBrotherStrokeBrotherStrokeFatherStroke MotherCoronary artery diseaseSisterRelationNameStatusCommentsBrotherFather DeceasedMotherDeceasedSister Social History Tobacco UseTypesPacks/DayYears UsedDateSmoking Tobacco: Every DayCigarettes0.351 Started: 1975Smokeless Tobacco: Never Tobacco Cessation:Counseling Given: Yes Alcohol UseStandard Drinks/WeekCommentsNever0 (1 standard drink = 0.6 oz pure alcohol)B1300 Health LiteracyAnswerDate RecordedHow often do you need to have someone help you when you read instructions, pamphlets, or other written material from your doctor or pharmacy?Never01/08/2025HC UtilitiesAnswerDate RecordedIn the past 12 months has the [employer], gas, oil, or water [employer] threatened to shut off services in your [...] relatives?Once a week01/08/2025How often do you attend jainism or hinduism services?Patient dwxqtazf47/09/2025Do you belong to any clubs or organizations such as jainism groups, unions, fraternal or athletic sim ups, or school groups?Patient /09/2025How often do you attend meetings of the clubs or organizations you belong to?Patient hiybqgds09/09/2025re you , , , , never , [...] heating?Not hard at all04/14/2025PHQ-2AnswerDate RecordedPatient Health Questionnaire-2 Byokg394Finsevier valley hospital [facility] [facility] - Occupational Stress QuestionnaireAnswerDate [...] to pay the mortgage or rent on time?No04/16/2024In the last 12 months, how many places [...] homeless or living in a fdc (including now)?No04/14/2025CommentsNoSex and Gender InformationValue Date RecordedSex Assigned at BirthNot on fileLegal LwfRxclcn90/25/2022 10:34 AM ESTGender IdentityNot on fileSexual OrientationNot on file Last Filed Vital Signs Vital SignReadingTime TakenCommentsBlood Rncwxtaz910/64007/14/2025 1:05 PM EDT Xxyvp5808/12/2025 1:05 PM YAZGvmjuyfldbp35.7 ??C (96.3 ??F)04/15/2025 7:30 AM EDTRespiratory Ssjw592304/15/2025 7:30 AM EDTOxygen Mwudewzrcp346%04/15/2025 7:30 AM EDTInhaled Oxygen Concentration--Djhkkl55.4 kg (142 lb)07/14/2025 1:05 PM EDT Teyyfu714.5 cm (5' 2 )07/14/2025 1:05 PM EDTBody Mass Index25.9707/14/2025 1:05 PM EDT Plan of Treatment DateTypeDepartmentCare Team (Latest Contact Info)Dltkrryffwa91/10/2026 3:10 PM EDTOffice Visit at [facility] [address] [phone] Oscar Rodriguez MD [address] [facility] [address] [place] [address] Health MaintenanceDue DateLast DoneCommentsCT Lsognyaisorl88/07/1961Diabetes: Urine Protein Nmlfusvub66/07/1961FIT-DNA (Cologuard)1960FIT1960HIV Yojlfenva27/07/1961Lipid Panel1960Medicare Annual Wellness Visit (AWV) 1960 8989Vxnpenofvsepm03/07/1961MMR Vaccines (1 of 1 - Standard series) 2Diabetes: Retinopathy Uuyawsvog65/07/1971Hepatitis C Screening 1978Cervical Cancer Ognbosibn75/07/1982HPV/Ufyjdl5411/08/1981Pap Smear 11/08/19815861Ajkumnupo32/07/2001RSV High Risk: (Elderly (60+) or Population) (1 - Risk 50-74 years 1-dose series)2010Hepatitis B Vaccines (2 of 3 - Hep B Twinrix 3-dose series)Diabetes: Hemoglobin A1C/503/07/2025, 2COVID-19 Vaccine (3 - season) 508/, 02/19/2021TSH Level/603/07/2025, 02/15/2024, 07/24/20236115Zifuadkyatdgkq56/603/08/2025, 11/10/2023, 07/22/2023, Additional history existsCreatinine Level3/, 01/12/2025, 01/11/2025, Additional history existsPotassium Level603/, 01/12/2025, 01/11/2025, Additional history existsDTaP/Tdap/Td Vaccines (4 - Td or Tdap) /07/2021, 04/16/2020, 08/02/20193818Omjmdkgkumu06/23/207789/, 5Colorectal Cancer Iznvoryrx31/23/2035Hepatitis A VaccinesAged Out 04/16/2020No longer eligible based on patient's age to complete this topicZoster LfqsyecpNlrroggfp47/15/2020, 08/03/2019Influenza JoaxjlpDelnabkcv08/30/2025, 06/21/2021, 01/22/2021, Additional history existsPneumococcal VaccineCompleted 08/01/2025, [...] not on file)ICDRight: Chest Procedures Procedure NamePriorityDate/TimeAssociated DiagnosisCommentsCARDIAC DEVICE CHECK - REMOTE - SSUGjotobp48/02/2025 9:48 AM EST ICD (implantable cardioverter-defibrillator) in place Paroxysmal ventricular tachycardia BASIC METABOLIC PANELPending Rjnxeeiky04/14/2025 5:23 AM EDT TRANSTHORACIC ECHO (TTE) COMPLETE WITH ZMIMGBACCAFV71/10/2025 11:15 AM EDT Paroxysmal ventricular tachycardia (Multi) HEMOGLOBIN B2WOze-Oz32/09/2025 7:21 PM EDT TSH WITH REFLEX TO FREE T4 IF ABNORMALAdd-On01/08/2025 7:21 PM EDT from Last 3 Months or Most Recently Relevant to Health Maintenance Results * CARDIAC DEVICE CHECK - REMOTE - ICD (10/03/2025 9:48 AM EST)Anatomical Region LateralityModalityMonitor/DeviceSpecimen (Source)Anatomical Location / LateralityCollection Method / VolumeCollection TimeReceived Time10/03/2025 2:02 AM EST Narrative Authorizing ProviderResult TypeResult StatusJune Preston [facility] IMPLANTABLE CARDIAC DEVICE PROCEDURESFinal Result * (ABNORMAL) Basic Metabolic Panel (01/13/2025 5:23 AM EDT)ComponentValueRef RangeTest MethodAnalysis TimePerformed AtPathologist CgrfeqrryNjtzfxc6971 - 99 mg/dL LAB CHEMISTRY METHOD 01/13/2025 6:28 AM [facility] JIMTntymf437(L)136 - 145 mmol/L LAB CHEMISTRY METHOD 01/13/2025 6:28 AM [facility] LABPotassium3.63.5 - 5.3 mmol/L LAB CHEMISTRY METHOD 01/13/2025 6:28 AM [facility] HWHTdqmtcnv8829 - 107 mmol/L LAB CHEMISTRY METHOD 01/13/2025 6:28 AM [facility] SNRRsaejdzkcxo5624 - 32 mmol/L LAB CHEMISTRY METHOD 01/13/2025 6:28 AM [facility] LABAnion Vce7151 - 20 mmol/L LAB CHEMISTRY METHOD 01/13/2025 6:28 AM [facility] LABUrea Qrqbbnhc70 - 23 mg/dL LAB CHEMISTRY METHOD 01/13/2025 6:28 AM [facility] LABCreatinine0.44(L)0.50 - 1.05 mg/dL LAB CHEMISTRY METHOD 01/13/2025 6:28 AM [facility] LABeGFR>90>60 mL/min/1.73m*2 LAB CHEMISTRY METHOD 01/13/2025 6:28 AM [facility] LABComment: Calculations of estimated GFR are performed using the 2020 CKD-EPI Study Refit equation without therace variable for the IDMS-Traceable creatinine methods. https://jasn.asnjournals.org/content/early//ASN.6788708304 Calcium8.2(L)8.6 - 10.3 mg/dL LAB CHEMISTRY METHOD 01/13/2025 6:28 AM [facility] LABSpecimen (Source)Anatomical Location / LateralityCollection Method / VolumeCollection TimeReceived TimeBlood Venous blood specimen / UnknownVenipuncture / Kowwmns3501/13/2025 5:23 AM EDT 01/13/2025 5:54 AM EDT Narrative Authorizing ProviderResult TypeResult StatusTaherepradeep MONTES BLOOD ORDERABLESFinal ResultPerforming OrganizationAddressCity/State/ZIP CodePhone Number [facility] [address] [place] [phone] * TRANSTHORACIC ECHO (TTE) COMPLETE WITH CONTRAST (01/09/2025 11:15 AM EDT) ComponentValueRef RangeTest MethodAnalysis TimePerformed AtPathologist SignatureAV mn yenz7wlVmOIUZZVC pk vel1.39m/sSYNGOLV Biplane EF30%SYNGOLVOT diam1.87cmSYNGOMV E/A ratio1.21SYNGOTricuspid annular plane systolic excursion 2.2cmSYNGOLA vol index A/L35.3ml/g2VIGRQPB EF35%SYNGORV free wall pk S'10.80 cm/cKXWWXYJNV15.6dhVuEIHOHINYEv1.89cmSYNGOAortic Valve Area by Continuity of Peak Velocity2.91vy6MZERWRL pk rhyc4chUhLAFPQQnhcad Valve Area by Continuity of VTI2.23vl8PEBMJUK A4C EF30.9SYNGOSpecimen (Source)Anatomical Location / LateralityCollection Method / VolumeCollection TimeReceived Time01/09/2025 10:40 AM EDT Narrative [facility] - 01/10/2025 8:51 AM EDT ? [address] [address] TRANSTHORACIC ECHOCARDIOGRAM REPORT Patient Name: ? KING JOSH ?Reading Physician: ?[id number] Augustus ? Vacante DO Study Date: ? 01/09/2025 ?Ordering Provider: ?[id number] DANI M ? DAR MRN/PID: ?[id number] ? Fellow: Accession#: ? [id number] ? Nurse: Date of /Age: ??1960 / 64 years ??Vacuum Drum Drier Operator: ?Gege Mehtawe ? RDCS Gender Assigned at ??F ?Additional Staff: : Height: ? 157.48 cm ?Admit Date: ? 01/08/2025 Weight: ? 67.59 kg ? Admission Status: ? Inpatient - ? Routine BSA / BMI: ?1.69 m2 / 27.25 ?Department Location: ??[facility] ?kg/m2 Blood Pressure: 101 /55 mmHg Study Type: ?TRANSTHORACIC ECHO (TTE) COMPLETE Diagnosis/ICD: Ventricular tachycardia, other-I47.29 Indication: ?Multiple ICD firings CPT Codes: ? Echo Complete w Full Doppler-10001 Patient History: Pacer/Defib: ? AICD Pertinent History: [...] Area A2C: ? 19.2 cm2 LA [place] A4C: 6.3 cm LA [place] A2C: 5.7 cm LA Volume Index: ?? 33.4 ml/m2 RIGHT ATRIUM: ? Normal Ranges: RA Vol A4C: ?32.8 ml ?(8.3-19.5ml) RA Vol Index A4C: ??19.4 ml/m2 RA Area A4C: ? 13.1 cm2 RA [place] A4C: 4.4 cm LV SYSTOLIC FUNCTION: ? [...] m/s ??(0.6-0.9m/s) PV Max PG: ?3.9 mmHg [id number] Augustus Issa DO Electronically signed on 01/10/2025 at 8:51:17 AM Wall Scoring Final Procedure Note Augustus Issa DO - 01/10/2025 [place] [address] TRANSTHORACIC ECHOCARDIOGRAM REPORT Patient Name: KING MORENO Reading Physician: [id number] Negrete Study Date: 01/09/2025 Ordering Provider: [id number] JAMES DODGE MRN/PID: [id number] Fellow: Nurse: Date of /Age: 1 1960 / 64 years Vacuum Drum Drier Operator: Yana MURPHY Gender Assigned at F Additional Staff: : Height: 157.48 cm Admit Date: 01/08/2025 Weight: 67.59 kg Admission Status: Inpatient- Routine BSA / BMI: 1.69 m2 / 27.25 Department Location: [place] [address] Blood Pressure: 101 /55 mmHg Study Type: TRANSTHORACIC ECHO (TTE) COMPLETE Diagnosis/ICD: Ventricular tachycardia, other-I47.29 Indication: Multiple ICD firings CPT Codes: Echo Complete w Full Doppler-09065 Patient History: Pacer/Defib: AICD Pertinent History: HTN, [...] LA Area A2C: 19.2 cm2 LA [place] A4C: 6.3 cm LA [place] A2C: 5.7 cm LA Volume Index: 33.4 ml/m2 RIGHT ATRIUM: Normal Ranges: RA Vol A4C: 32.8 ml (8.3-19.5ml) RA Vol Index A4C: 19.4 ml/m2 RA Area A4C: 13.1 cm2 RA [place] A4C: 4.4 cm LV SYSTOLIC FUNCTION: Normal [...] 1.0 m/s (0.6-0.9m/s) PV Max P.9 mmHg [id number] Augustus Issa DO Electronically signed on 01/10/2025 at 8:51:17 AM Wall Scoring Final Authorizing ProviderResult TypeResult StatusRobakash Michelle [facility] ECHO PROCEDURESFinal ResultPerforming OrganizationAddressCity/State/ZIP CodePhone Number [facility] * TSH with reflex to Free T4 if abnormal (01/08/2025 7:21 PM EDT)ComponentValue Ref RangeTest MethodAnalysis TimePerformed AtPathologist SignatureThyroid Stimulating Hormone2.120.44 - 3.98 mIU/L LAB IMMUNOASSAY METHOD 01/08/2025 8:19 PM [facility] LABSpecimen (Source)Anatomical Location / LateralityCollection Method / VolumeCollection TimeReceived TimeBlood Venous blood specimen / UnknownVenipuncture / Ygucnmd9401/08/2025 7:21 PM EDT 01/08/2025 7:26 PM EDT Narrative [facility] - 01/08/2025 8:19 PM EDT TSH testing is performed using different testing methodology at [facility] than at other [facility]. Direct result comparisons should only be made within the same method. Authorizing ProviderResult TypeResult [facility] BLOOD ORDERABLESFinal ResultPerforming OrganizationAddressCity/State/ZIP CodePhone Number [facility] [address] [place] [address] * Hemoglobin A1c (01/08/2025 7:21 PM EDT)ComponentValueRef RangeTest Method Analysis TimePerformed AtPathologist SignatureHemoglobin A1C5.5See comment % 01/08/2025 11:45 PM [facility] LABEstimated Average Tqjqcad752Dlq Established mg/dL01/08/2025 11:45 PM [facility] LABSpecimen (Source)Anatomical Location / LateralityCollection Method / VolumeCollection TimeReceived TimeBloodVenous blood specimen / UnknownVenipuncture / Uaswlid6101/08/2025 7:21 PM EDT01/08/2025 7:26 PM EDT Narrative [facility] - 01/08/2025 11:45 PM EDT Diagnosis of Diabetes-Adults Non-Diabetic: < or = 5.6% Increased risk for developing diabetes: 5.7-6.4% Diagnostic of diabetes: > or = 6.5% Authorizing ProviderResult TypeResult StatusWell[facility] BLOOD ORDERABLESFinal ResultPerforming OrganizationAddressCity/State/ZIP CodePhone Number [facility] [address] [facility] [address] [place] [address] from Last 3 Months or Most Recently Relevant to Health Maintenance Insurance Advance Directives For more information, please contact: [phone] (Available ) * Full Code (Latest Code Status on File) Date ActivatedDate InactivatedComments11/26/2023 6:41 AMQuestionAnswerComments Plan of Care:* Code Status Discussion Not Completed Decision Maker:* Provider Rationale:* Patient condition does not warrant discussion Care Teams Team MemberRelationshipSpecialtyStart DateEnd Date Conchita Aden MD [address] [place] [address] [address] [place] [address] PCP - GeneralFamily Medicine11/11/24 June Preston MD [address] [facility] Medical Office [facility] [address] [place] [address] CardiologistCardiology-Clinical Cardiac Mvgzxqgcopagnlves72/12/24
--- OUTSIDE RECORDS SUMMARY | 2025-10-22 14:50 | XMS_ITS | Encounter Summary ---
Author Organization [facility] Address [address] [place] [address] Phone Care Team Providers Care Clinical Trials Nurse Name Role Phone June Preston MD Unavailable Conchita Aden MD Primary Care Provider [phone] Reason for Visit * ReasonCommentsMed Refill Encounter Details DateTypeDepartmentCare Team (Latest Contact Info)Edlaupwnzve53/15/2025Refill [facility] at [facility] [address] [address] Oscar Rodriguez MD 703 [facility] 2, [facility] [address] [place] [address] Paroxysmal ventricular tachycardia; Essential hypertension Social History Tobacco UseTypesPacks/DayYears UsedDateSmoking Tobacco: Every DayCigarettes0.351 Started: 1974Smokeless Tobacco: NeverAlcohol UseStandard Drinks/WeekComments Never0 (1 standard drink = 0.6 oz pure alcohol)B1300 Health LiteracyAnswerDate RecordedHow often do you need to have someone help you when you read instructions, pamphlets, or other written material from your doctor or pharmacy? Never01/08/2025HC UtilitiesAnswerDate RecordedIn the past 12 months has the electric, gas, oil, or water [employer] threatened to shut off services in [...] relatives?Once a week01/08/2025How often do you attend scientology or shinto services?Patient bivmdqgn63/09/2025Do you belong to any clubs or organizations such as scientology groups, unions, fraternal or athletic groups, or school groups?Patient wsygcpzd85/09/2025How often do you attend meetings of the clubs or organizations you belong to?Patient ufaigjxm76/09/2025re you , , , , never , or living with a partner?Patient qhpskfal81/09/2025UDIT-CAnswerDate RecordedQ1: How often do you have a [...] hard at all04/14/2025PHQ-2AnswerDate RecordedPatient Health Questionnaire-2 Score0 04/14/2025[facility] [place] of Occupational Health - Occupational Stress QuestionnaireAnswerDate [...] steady place to sleep or slept in [facility] (including now)?No02/16/2024Housing Stability Vital SignAnswerDate RecordedIn the last 12 months, was there a time when you were not able to pay the mortgage or rent on time?No04/14/2025In the past 12 months, how many times have you moved where you were living?t any time in the past 12 months, were you homeless or living in a halfway (including now)?No 04/14/2025CommentsNoSex and Gender InformationValueDate RecordedSex Assigned at BirthNot on fileLegal KciSigkht84/25/2022 10:34 AM ESTGender IdentityNot on fileSexual OrientationNot on filedocumented as of this encounter Plan of Treatment DateTypeDepartmentCare Team (Latest Contact Info)Rcdwtwwaqdb07/10/2026 3:10 PM EDTOffice Visit [facility] at [facility] 703 [facility] [address] [place] [address] Oscar Rodriguez MD 703 [facility] 2, [address] [place], [place] [id number] documented as of this encounter Visit Diagnoses Diagnosis Paroxysmal ventricular tachycardia Essential hypertension Unspecified essential hypertension documented in this encounter Additional Health Concerns AssessmentNoted TimePHQ-9 Depression Total Score: 9001/22/2022 11:33 AM EDTA fall risk assessment has been completed for the puzulks4203/01/2024 12:30 PM EDT documented as of this encounter Care Teams Team MemberRelationshipSpecialtyStart DateEnd Date Conchita Aden MD [address] [place] [address] [place] [address] PCP - GeneralFamily Medicine11/11/24 June Preston MD [address] [facility] Medical Office [facility], [address] [place] [address] CardiologistCardiology-Clinical Cardiac Nsngyscvyapxlilok72/12/24documented as of this encounter
--- OUTSIDE RECORDS SUMMARY | 2025-10-22 14:50 | XMS_ITS | Encounter Summary ---
Author Organization [facility] Address [address] [place] [address] Phone Care Team Providers Care Personal Care Aid Name Role Phone June Preston MD Unavailable Conchita Aden MD Primary Care Provider [phone] Reason for Visit * ReasonOnset DateCommentsMed Kxbxir0310/20/2025 Encounter Details DateTypeDepartmentCare Team (Latest Contact Info)Suliexxidjb59/19/2025Refill at [facility] [address] [address] Aida Ritter, RN Atherosclerosis of aniak coronary artery of [place] heart without angina pectoris (Primary Dx) Social History Tobacco UseTypesPacks/DayYears UsedDateSmoking Tobacco: Every DayCigarettes0.351 Started: 1974Smokeless Tobacco: NeverAlcohol UseStandard Drinks/WeekComments Never0 (1 standard drink = 0.6 oz pure alcohol)B1300 Health LiteracyAnswerDate RecordedHow often do you need to have someone help you when you read instructions, pamphlets, or other written material from your doctor or pharmacy? Never01/08/2025HC UtilitiesAnswerDate RecordedIn the past 12 months has the [employer], gas, oil, or water [employer] threatened to shut off services in your [...] relatives?Once a week01/08/2025How often do you attend bahai or nondenominational services?Patient fqewowub88/09/2025Do you belong to any clubs or organizations such as bahai groups, unions, fraternal or athletic groups, or school groups?Patient xvvozbfo03/09/2025How often do you attend meetings of the clubs or organizations you belong to?Patient nadcqlkr18/09/2025re you , , , , never , or living with a partner?Patient hwytwitr39/09/2025UDIT-CAnswerDate RecordedQ1: How often do you have a [...] hard at all04/14/2025PHQ-2AnswerDate RecordedPatient Health Questionnaire-2 Score0 04/14/2025[facility] [place] of Occupational Health - Occupational Stress QuestionnaireAnswerDate [...] steady place to sleep or slept in [facility] (including now)?No02/16/2024Housing Stability Vital SignAnswerDate RecordedIn the last 12 months, was there a time when you were not able to pay the mortgage or rent on time?No04/14/2025In the past 12 months, how many times have you moved where you were living?t any time in the past 12 months, were you homeless or living in a long term (including now)?No 04/14/2025CommentsNoSex and Gender InformationValueDate RecordedSex Assigned at BirthNot on fileLegal BgyMbocly00/25/2022 10:34 AM ESTGender IdentityNot on fileSexual OrientationNot on filedocumented as of this encounter Miscellaneous Notes * Telephone Encounter - Aida Ritter RN - 10/20/2025 10:06 AM EST Pharmacy requesting refill of metoprolol. Prescription entered in [employer]. Patient is taking metoprolol 50mg daily. documented in this encounter Plan of Treatment DateTypeDepartmentCare Team (Latest Contact Info)Qwevythduon57/10/2026 3:10 PM EDTOffice Visit [facility] at [facility] 703 [facility] [address] [place] [address] Oscar Rodriguez MD [facility]03 [facility], [address] [place], [place] [phone] documented as of this encounter Visit Diagnoses Diagnosis Atherosclerosis of ani[place] coronary artery of [place] heart without angina pectoris- Primary documented in this encounter Additional Health Concerns AssessmentNoted TimePHQ-9 Depression Total Score: 9001/22/2022 11:33 AM EDTA fall risk assessment has been completed for the cxgkluf8003/01/2024 12:30 PM EDT documented as of this encounter Care Teams Team MemberRelationshipSpecialtyStart DateEnd Date Conchita Aden MD [address] [place] [address] [place] [address] PCP - GeneralFamily Medicine11/11/24 June Preston MD [address] [facility], [address] [place] [address] CardiologistCardiology-Clinical Cardiac Sbcttotxbherntahx69/12/24documented as of this encounter
--- OUTSIDE RECORDS SUMMARY | 2025-10-22 14:50 | XMS_ITS | Clinical Summary ---
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 Will resume home plavix dosing when surgically stable 05/29/2015: cardiac cath with stable CAD, no further stenting needs, continue home meds Type II or unspecified type diabetes mellitus without mention of complication, not stated as siuegbhiajgl40/22/2015 Overview (05/23/2015): Use of sliding scale while inpatient, glucose monitoring ACHS, to resume home metformin upon DC Unspecified vascular insufficiency of rpanjsfwb48/08/2015 Resolved Problems ProblemNoted DateDiagnosed DateResolved DateEssential hypertension, malignant Overview (05/23/2015): Resume home medication, monitor with routine vitals Encounters DateTypeDepartmentCare CozbPzyhuifbxqv65/11/2025Telephone Gastroenterology [address] [address] Provider, [facility] 10/09/2025Telephone Gastroenterology [address] [address] Provider, C[facility] Consultfrom Last 3 Months Immunizations ImmunizationAdministration DatesNext Duepneumococcal polysaccharide (PPV23) vaccine, 23 valent (PNEUMOVAX 23)11/09/2006 Family History Medical HistoryRelationCommentsno colon disease [Other]OtherRelationStatus CommentsOther Social History Tobacco UseTypesPacks/DayYears UsedDateSmoking Tobacco: Every DayCigarettes0.230 Smokeless Tobacco: Never Comments:about 4 cigarettes a day and a vapor cigarette Alcohol UseStandard Drinks/WeekCommentsNo0 (1 standard drink = 0.6 oz pure alcohol)CommentsNoSex and Gender InformationValueDate RecordedSex Assigned at BirthNot on fileLegal HftMrplph03/27/2015 10:50 AM EDTGender IdentityNot on fileSexual OrientationNot on fileOccupationIndustryJob Start Date Job End DateDisabilityNot on fileNot on fileNot on file Last Filed Vital Signs Vital SignReadingTime TakenCommentsBlood Agfbibtl864/7407 3:00 PM EDT Nbokx93406/30/2015 3:00 PM FYLNswdhoutfyt75.4 ??C (99.3 ??F)05/31/2015 3:00 PM EDTRespiratory Djyq465205/31/2015 3:00 PM EDTOxygen Jbynhqcxej57%05/31/2015 3:00 PM EDTInhaled Oxygen Concentration--Veshem19.7 kg (169 lb)08/15/2015 2:57 PM EDT Jtcszw104.5 cm (5' 2 )08/15/2015 2:57 PM EDTBody Mass Index30.9108/15/2015 2:57 PM EDT Plan of Treatment DateTypeDepartmentCare Team (Latest Contact Info)Vfzvjduqgey88/08/2026 3:00 PM ESTOffice Visit Gastroenterology [address] [place] [address] Pepper Huerta MD [facility] Building [address] [place] [address] double balloon epvlbpldxmv54/28/2026 1:00 PM ESTOffice Visit Neurology [address] [phone] Nay Espitia MD 9500 [facility] [place] [address] Refractory restless leg syndrome, tried and failed multiple medications 11/29/2025 3:00 PM ESTOffice Visit Neurology [address] [phone] Alexandr Wood MD, PhD [address] [place] [address] Dizziness and balance issuesHealth MaintenanceDue DateLast DoneCommentsAnxiety Qjzmvuwpt84/07/1979Depression Ddfvgkmeo38/07/1979HIV Tzmnqzibq66/07/1979 Hepatitis C Vfcztyqun51/07/1979Cervical Cancer Pjrkynqbl46/07/1982Mammogram Syirvjpql10/07/2001CT Enzcwboejmkd88/07/2006Cologuard (FIT-DNA)2005 Kclyxrfzohy44/07/2006Colorectal Cancer Irjlkpfaz33/07/2006Fecal Occult Blood 11/08/20059034Yyjsbrlhjpcor40/07/2006Pneumococcal Vaccine: 50+ (2 of 2 - PCV) /, 12/08/2016, 11/09/2006Covid-19 Vaccine (3 - 2024- season)/, 02/19/2021Influenza Vaccine (#1)2025 06/21/2021, 01/22/2021, 08/02/2019, Additional history existsLipid Screening /05/2022, 05/16/2015Diabetes Uglagdbwv53/, 01/13/2025, 01/12/2025, Additional history existsDTaP,Tdap,Td Vaccine (4 - Td or Tdap), 04/16/2020, 08/02/2019RSV Vaccine (1 - 1-dose 75+ series)2035Shingrix RtvvnovQdipqqviw76/15/2020, 08/03/2019 Procedures Procedure NamePriorityDate/TimeAssociated DiagnosisCommentsBASIC METABOLIC PANEL STAT05/31/2015 12:41 AM EDT LIPID PANEL, PPNEULECvgcqqa30/15/2015 10:42 AM EDT 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) from Last 3 Months or Most Recently Relevant to Health Maintenance Results * (ABNORMAL) BASIC METABOLIC PNL (05/31/2015 12:41 AM EDT)ComponentValueRef RangeTest MethodAnalysis TimePerformed AtPathologist VsqcecznbSpgljis164(H)65 - 100 mg/dL05/31/2015 1:52 AM [facility] MAIN LABORATORYBUN3(L)8 - 25 mg/dL05/31/2015 1:52 AM [facility] MAIN LABORATORYCreatinine0.750.70 - 1.40 mg/dL05/31/2015 1:52 AM [facility] MAIN LUMTGEZQMLZmsrlw574 132 - 148 mmol/L05/31/2015 1:52 AM [facility] LAB[facility]ORY Potassium4.33.5 - 5.0 mmol/L05/31/2015 1:52 AM [facility] MAIN QIUILKHGSRWxbyamat24292 - 110 mmol/L05/31/2015 1:52 AM [facility] MAIN AXCLLDAGADFU91869 - 32 mmol/L05/31/2015 1:52 AM [facility] MAIN LABORATORYAnion Vmp373 - 15 mmol/L05/31/2015 1:52 AM [facility] MAIN LABORATORYCalcium8.68.5 - 10.5 mg/dL05/31/2015 1:52 AM [facility] MAIN LABORATORYeGFR->6007 1:52 AM EDCLEVEL[facility] MAIN LABORATORYeGFR-All Other Races>60.05/31/2015 1:52 AM [facility] MAIN LABORATORYComment: eGFR (Estimated GFR) Units of [...] C (Hist) LaveryLABORATORYFinal ResultPerforming OrganizationAddressCity/State/ZIP CodePhone Number [facility] [address] [facility] [place] [address] * (ABNORMAL) LIPID PANEL BASIC (05/16/2015 10:42 AM EDT)ComponentValueRef Range Test MethodAnalysis TimePerformed AtPathologist QehfbgvihPwforfhrpeqk11469 - 149 mg/dL05/16/2015 6:55 PM [facility] MAIN LABORATORYCholesterol, Fytmj203626 - 199 mg/dL05/16/2015 6:55 PM [facility] LAB[facility] HDL Wmiwmpvxpmt31>55 mg/dL05/16/2015 6:55 PM [facility] MAIN LABORATORYVLDL Nspkulhjeza972 - 40 mg/dL05/16/2015 6:55 PM [facility] MAIN LABORATORYLDL Cholesterol, Cpuovyhpuy15(L)60 - 129 mg/dL05/16/2015 6:55 PM [facility] MAIN LABORATORYFasting KaqsFvixbofkvr35/15/2015 2:56 PM [facility] MAIN LABORATORYTC:HDL Ratio2.181.00 - 5.0007 6:55 PM [facility] MAIN LABORATORYLDL:HDL Ratio0.820.50 - 3.5507 6:55 PM [facility] MAIN LABORATORYNon HDL Ptqjsjoziou04(L)90 - 159 mg/dL05/16/2015 6:55 PM EDTCLEVELAND CLINIC MAIN LABORATORYSpecimen (Source) Anatomical Location / LateralityCollection Method / VolumeCollection Time Received TimeBlood specimen (specimen)BLOOD SPECIMEN / Dwpqnwo2405/16/2015 10:42 AM EDT05/16/2015 10:46 AM EDT Narrative Authorizing ProviderResult TypeResult StatusSung Pratik Conde MDLABORATORYFinal ResultPerforming OrganizationAddressCity/State/ZIP CodePhone Number [facility] MAIN LABORATORY [address] [place] [address] from Last 3 Months or Most Recently Relevant to Health Maintenance Insurance
--- OUTSIDE RECORDS SUMMARY | 2025-10-22 14:51 | XMS_ITS | Encounter Summary ---
Author Organization [facility] Address [address] [place] [address] Phone Care Team Providers Care Pilot Plant Operator Name Role Phone June Preston MD Unavailable Conchita Aden MD Primary Care Provider [phone] Reason for Visit * ReasonCommentsMed Refill Encounter Details DateTypeDepartmentCare Team (Latest Contact Info)Nqpvrwgjyvq33/12/2025Refill [facility] at [facility] [address] [address] Oscar Rodriguez MD 703 [facility] 2, [facility] [address] [place] [address] Paroxysmal ventricular tachycardia; Essential hypertension [...] has the electric, gas, oil, or water [employer] threatened to shut off services in your [...] relatives?Once a week01/08/2025How often do you attend mandaen or caodaism services?Patient fufipisn97/09/2025Do you belong to any clubs or organizations such as mandaen groups, unions, fraternal or athletic groups, or school groups?Patient wynzeaap24/09/2025How often do you attend meetings of the clubs or organizations you belong to?Patient qxjbnpcu93/09/2025re you , , , , never , or living with a partner?Patient rhcdneln02/09/2025UDIT-CAnswerDate RecordedQ1: How often do you have a [...] hard at all04/14/2025PHQ-2AnswerDate RecordedPatient Health Questionnaire-2 Score0 04/14/2025[facility] [place] of Occupational Health - Occupational Stress QuestionnaireAnswerDate [...] steady place to sleep or slept in [facility] (including now)?No02/16/2024Housing Stability Vital SignAnswerDate RecordedIn the last 12 months, was there a time when you were not able to pay the mortgage or rent on time?No04/14/2025In the past 12 months, how many times have you moved where you were living?t any time in the past 12 months, were you homeless or living in a chcf (including now)?No 04/14/2025CommentsNoSex and Gender InformationValueDate RecordedSex Assigned at BirthNot on fileLegal CgrSvrcmf43/25/2022 10:34 AM ESTGender IdentityNot on fileSexual OrientationNot on filedocumented as of this encounter Plan of Treatment DateTypeDepartmentCare Team (Latest Contact Info)Mgbefbwvjqj27/10/2026 3:10 PM EDTOffice Visit [facility] at [facility] 703 [facility] [address] [place] [address] Oscar Rodriguez MD 703 [facility] 2, [address] [place], [place] [phone] documented as of this encounter Visit Diagnoses Diagnosis Paroxysmal ventricular tachycardia Essential hypertension Unspecified essential hypertension documented in this encounter Additional Health Concerns AssessmentNoted TimePHQ-9 Depression Total Score: 9001/22/2022 11:33 AM EDTA fall risk assessment has been completed for the lnpvwgz2903/01/2024 12:30 PM EDT documented as of this encounter Care Teams Team MemberRelationshipSpecialtyStart DateEnd Date Conchiat Aden MD [address] [place] [address] [place] [address] PCP - GeneralFamily Medicine11/11/24 June Preston MD [address] [facility] Medical Office [facility], [address] [place] [address] CardiologistCardiology-Clinical Cardiac Uaseurpzppxlcvtto86/12/24documented as of this encounter
--- OUTSIDE RECORDS SUMMARY | 2025-10-22 14:51 | XMS_ITS | Patient Health Record ---
Author Organization [facility] in [place] Address [address] [place] [address] Care Team Providers Care Social Service Agency Director Name Role Phone Conchita Aden MD Primary Care Provider Unavailab Danny Robles Unavailable [phone] DANNY SEGURA Unavailable [phone] Results Component Value Reference Range Notes BNP Reviewed date:10/30/2024 08:29:21 PM Interpretation: Performing Lab: Notes/Report: [facility] , NT Pro B Type Natriuretic Pept 352.0 <=900.0 pg /mL Performing Lab:see noteML - [facility] LBLACTATE or LACTIC ACID Reviewed date:10/30/2024 08:29:21 PM Interpretation: Performing Lab: Notes/Report: [facility] ,Lactate/Lactic Acid3.00.4-2.0 mmol/LRESULTS CALLED TO SARA JASMINE PAPerforming Lab:see noteML - [facility] LBTroponin I High Sensitivity Reviewed date:10/30/2024 08:29:22 PM Interpretation: Performing Lab: Notes/Report: [facility] ,Troponin I High Sensitivity6.04.0-51.3 pg/mL USED IN ISOLATION BUT SHOULD BE INTERPRETED IN CONJUNCTION UNIVERSAL DEFINITION OF MYOCARDIAL INFARCTION. THE UPPER 99TH PERCENTILE = 51.4 PG/ML CUT-OFF POINTS HAVE BEEN ESTABLISHED BASED ON THE FOURTH NOTE: HIGH-SENSITIVITY TROPONIN ASSAY IS NOT INTENDED TO BE HAS BEEN CONFIRMED THE DECISION THRESHOLD FOR ID PERCENTILE OF cTnI DISTRIBUTION IN A REFERENCE POPULATION, DIAGNOSIS. REFERENCE LIMIT (URL) OF TROPONIN, DEFINED THE 99TH WITH OTHER DIAGNOSTIC AND CLINICAL INFORMATION. Performing Lab:see noteML - [facility] LBCBC AUTO DIFF Reviewed date:11/02/2024 03:17:53 PM Interpretation: Performing Lab: Notes/Report: [facility] ,White Blood Count16.14.0-11.0 10 3/uLRed Blood Count2.904.20-5.40 10 6/uL Hemoglobin8.712.0-16.0 g/oMPdgpiqpigf50.536.0-48.0 %Mean Corpuscular Chpatn31.4 81.0-99.0 fLMean Corpuscular Xqfmjnizmr95.026.7-34.0 pgMean Corpuscular HGB Conc 32.829.9-35.2 g/dLRed Cell Distribution Width18.011.0-15.0 %Platelet Fzmvw098 150-450 10 3/uLMean Platelet Bgjoxy72.09.5-13.5 fLNeutrophils Percent Auto72.8 43.0-75.0 %Lymphocytes Percent Auto17.720.5-60.0 %Monocytes Percent Auto7.51.7- 12.0 %Eosinophils Percent Auto0.90.9-7.0 %Basophils Percent Auto0.40.2-2.0 % Immature Granulocytes Pct Auto0.70.0-0.5 %Neutrophils Absolute Auto11.71.4-6.5 10 3/uLLymphocytes Absolute Auto2.91.2-3.8 10 3/uLMonocytes Absolute Auto1.20.3- 0.8 10 3/uLEosinophils Absolute Auto0.20.0-0.7 10 3/uLBasophils Absolute Auto0.1 0.0-0.1 10 3/uLImmature Granulocytes Abs Auto0.110.00-0.03 10 3/uLPerforming Lab:see noteML - [facility] LBPROF 14(COMP METB) Reviewed date:11/02/2024 03:17:53 PM Interpretation: Performing Lab: Notes/Report: [facility] ,Bckuho681423-537 mmol/LPotassium3.63.5-5.1 mmol/GUzaveqfy89046-429 mmol/LCarbon Pgimzej59.321.0-32.0 mmol/LAnion Gap14.6Rvptlgn9351-768 mg/dLBlood Urea Nitrogen 5.07.0-18.0 mg/dLCreatinine0.780.55-1.02 mg/dLEstimated GFR ( Charlotte>60 >=60 mL/min/1.73m 2Estimated GFR (Non- Shanice>60>=60 mL/min/1.73m 2BUN Creatinine Ratio6.0Ffjxycu5.58.5-10.1 mg/dLBilirubin Total0.70.2-1.0 mg/dL Aspartate Amino Rrdnosbptjb1448-92 U/LAlanine Aeojttfymskpwjje6425-20 U/L Alkaline Dpennuxpleo5438-212 U/LTotal Protein5.96.4-8.2 g/dLAlbumin Level2.43.4- 5.0 g/dLGlobulin3.5Albumin Globulin Ratio0.7Performing Lab:see noteML - [facility] LBProthrombin Time INR Reviewed date:11/02/2024 03:17:53 PM Interpretation: Performing Lab: Notes/Report: [facility] ,Prothrombin Time11.99.0-11.6 secINR1.14 2.0-3.0 CONDITIONS NOT LISTED BELOW 2.5-3.5 FOR PROSTHETIC HEART VALVE REPLACEMENT DESIRED INR: 2.5-3.5 RECURRENT THROMBOSIS Performing Lab:see note - [facility] LBCBC AUTO DIFF Reviewed date:11/02/2024 03:17:53 PM Interpretation: Performing Lab: Notes/Report: [facility] ,White Blood Count20.84.0-11.0 10 3/uLRed Blood Count2.954.20-5.40 10 6/uL Hemoglobin8.812.0-16.0 g/dWAcilpzxanh80.136.0-48.0 %Mean Corpuscular Vkjuuo71.9 81.0-99.0 fLMean Corpuscular Yuwnpcobzh09.826.7-34.0 pgMean Corpuscular HGB Conc 32.529.9-35.2 g/dLRed Cell Distribution Width18.011.0-15.0 %Platelet Qekwk600 150-450 10 3/uLMean Platelet Vunsja87.39.5-13.5 fLNeutrophils Percent Auto90.9 43.0-75.0 %Lymphocytes Percent Auto6.520.5-60.0 %Monocytes Percent Auto1.91.7- 12.0 %Eosinophils Percent Auto0.00.9-7.0 %Basophils Percent Auto0.10.2-2.0 % Immature Granulocytes Pct Auto0.60.0-0.5 %Neutrophils Absolute Auto18.91.4-6.5 10 3/uLLymphocytes Absolute Auto1.41.2-3.8 10 3/uLMonocytes Absolute Auto0.40.3- 0.8 10 3/uLEosinophils Absolute Auto0.00.0-0.7 10 3/uLBasophils Absolute Auto0.0 0.0-0.1 10 3/uLImmature Granulocytes Abs Auto0.130.00-0.03 10 3/uLPerforming Lab:see noteML - [facility] LBMAGNESIUM Reviewed date:11/02/2024 03:17:53 PM Interpretation: Performing Lab: Notes/Report: [facility] ,Magnesium2.01.8-2.4 mg/dLPerforming Lab:see noteML - [facility] LB PROF 14(COMP METB) Reviewed date:11/02/2024 03:17:53 PM Interpretation: Performing Lab: Notes/Report: [facility] ,Xkhqqi895520-349 mmol/LPotassium4.03.5-5.1 mmol/LMcyuibgg12756-471 mmol/LCarbon Mesdnai60.421.0-32.0 mmol/LAnion Gap11.0Yfzrlge95521-365 mg/dLBlood Urea Mroyxpzm96.07.0-18.0 mg/dLCreatinine0.750.55-1.02 mg/dLEstimated GFR ( Charlotte>60>=60 mL/min/1.73m 2Estimated GFR (Non- Shanice>60>=60 mL/min/1.73m 2BUN Creatinine Ratio13.6Mklchmt1.08.5-10.1 mg/dLBilirubin Total0.40.2-1.0 mg/dL Aspartate Amino Ujhrdqrxshj8829-74 U/LAlanine Oikfectitkvkccir2717-10 U/L Alkaline Hftduinaihs7424-211 U/LTotal Protein6.26.4-8.2 g/dLAlbumin Level2.43.4- 5.0 g/dLGlobulin3.8Albumin Globulin Ratio0.6Performing Lab:see noteML - [facility] LBProthrombin Time INR Reviewed date:11/02/2024 03:17:53 PM Interpretation: Performing Lab: Notes/Report: [facility] ,Prothrombin Time12.99.0-11.6 secINR1.24 2.5-3.5 FOR PROSTHETIC HEART VALVE REPLACEMENT DESIRED INR: 2.5-3.5 RECURRENT THROMBOSIS 2.0-3.0 CONDITIONS NOT LISTED BELOW Performing Lab:see noteML - [facility] LBCBC AUTO DIFF (Not yet reviewed by provider) Interpretation: Performing Lab: Notes/Report: [facility] ,White Blood Count8.14.0-11.0 10 3/uLRed Blood Count5.594.20-5.40 10 6/uL 1+ ANISO 1+ OVAL Dxcwbawgrd23.412.0-16.0 g/vATipvktmccu99.236.0-48.0 %Mean Corpuscular Bpmudx10.6 81.0-99.0 fLMean Corpuscular Gwtsjxsyij34.526.7-34.0 pgMean Corpuscular HGB Conc 33.329.9-35.2 g/dLPlatelet Evead852644-739 10 3/uLMean Platelet Tlulqj07.49.5- 13.5 fLNeutrophils Percent Auto58.143.0-75.0 %Lymphocytes Percent Auto31.620.5- 60.0 %Monocytes Percent Auto6.51.7-12.0 %Eosinophils Percent Auto2.50.9-7.0 % Basophils Percent Auto1.20.2-2.0 %Immature Granulocytes Pct Auto0.10.0-0.5 % Neutrophils Absolute Auto4.71.4-6.5 10 3/uLLymphocytes Absolute Auto2.61.2-3.8 10 3/uLMonocytes Absolute Auto0.50.3-0.8 10 3/uLEosinophils Absolute Auto0.20.0- 0.7 10 3/uLBasophils Absolute Auto0.10.0-0.1 10 3/uLImmature Granulocytes Abs Auto0.010.00-0.03 10 3/uLPerforming Lab:see noteML - [facility] LB FERRITIN (Not yet reviewed by provider) Interpretation: Performing Lab: Notes/Report: [facility] ,Upvqnzts257.08.0-252.0 ng/mLPerforming Lab:see note - [facility] LBIRON AND TIBC (Not yet reviewed by provider) Interpretation: Performing Lab: Notes/Report: [facility] ,Enci197.050.0-170.0 ug/dLTotal Iron Binding Eaiqrdgm972.0250.0-450.0 ug/dL Percent Iron Ylluctxset46.7Performing Lab:see note - [facility] LB PROF CHEM 8 (BAS METB) (Not yet reviewed by provider) Interpretation: Performing Lab: Notes/Report: [facility] ,Btyyzb621288-724 mmol/LPotassium4.23.5-5.1 mmol/BZfxcamyv84836-898 mmol/LCarbon Uxrypnd09.321.0-32.0 mmol/LAnion Gap13.4Xvuuzmn31385-374 mg/dLBlood Urea Ggtgqzht42.07.0-18.0 mg/dLCreatinine0.680.55-1.02 mg/dLEstimated GFR ( Charlotte>60>=60 mL/min/1.73m 2Estimated GFR (Non- Shanice>60>=60 mL/min/1.73m 2BUN Creatinine Ratio16.7Minoofd4.58.5-10.1 mg/dLPerforming Lab:see noteML - [facility] LBVITAMIN D 25 [place] (Not yet reviewed by provider) Interpretation: Performing Lab: Notes/Report: [facility] ,Vitamin D28.7 20-<30 ng/mL Vit D insufficient >100 ng/mL Potential Toxicity <20 ng/mL Vit D deficient 30-100 ng/mL Vit D sufficient Performing Lab:see note - [facility] LBFERRITIN (Not yet reviewed by provider) Interpretation: Performing Lab: Notes/Report: [facility] ,Jjjfnjqf399.08.0-252.0 ng/mLPerforming Lab:see note - [facility] LBFOLATE (Not yet reviewed by provider) Interpretation: Performing Lab: Notes/Report: [facility] ,Folate8.108.60-58.90 ng/mLPerforming Lab:see note - [facility] LB VITAMIN D 25 [place] (Not yet reviewed by provider) Interpretation: Performing Lab: Notes/Report: [facility] ,Vitamin D33.5 30-100 ng/mL Vit D sufficient 20-<30 ng/mL Vit D insufficient >100 ng/mL Potential Toxicity <20 ng/mL Vit D deficient Performing Lab:see note - [facility] LBVitamin B12 (Not yet reviewed by provider) Interpretation: Performing Lab: Notes/Report: [facility] ,Vitamin [id number] pg/mL [address] [place] [phone] Performed at: [facility] [employer]: Jose Damon PhD, Phone: [phone] Performing Lab:see note - [facility] LBVitamin B12 (Not yet reviewed by provider) Interpretation: Performing Lab: Notes/Report: [facility] ,Vitamin [id number] pg/mL [address] [place] [id number] Performed at: [facility] [employer]: Jose Damon PhD, Phone: [phone] Performing Lab:see [facility] LBXR chest 2V Reviewed date:11/02/2024 03:17:53 PM Interpretation: Performing Lab: Notes/Report: Source Facility: [place] [address] [place] [address] XRay Report Signed Patient: KING MORENO MR#: [id number] : 1960 Acct:[id number] Age/Sex: 63 / F ADM Date: 10/30/24 Loc: [place] 203-[address]: Samuel Snowden M.D. Ordering Physician: Samuel Snowden M.D. Date of Service: 11/01/24 Procedure(s): XR chest 2V Accession Number(s): [id number] cc: Conchita Aden M.D.; Samuel Snowden M.D. [address] [place] [address] Patient Name: KING MORENO MRN: [id number] date: 1960 Sex: F Assigned Patient Location: [place] Current Patient Location: [place] Accession/Order Number: [id number] Exam Date: 11/01/2024 09:30 Report Date: 11/01/2024 [...] Signed By: 11/01/24 1002 DD/ 1000 TD/TT: Nutritional Chemist:BNP Reviewed date:11/02/2024 03:17:53 PM Interpretation: Performing Lab: Notes/Report: [facility] ,NT Pro B Type Natriuretic Oxzm533.0<=900.0 pg/mLPerforming Lab:see noteML - [facility] LBProthrombin Time INR Reviewed date:10/31/2024 08:21:23 PM Interpretation: Performing Lab: Notes/Report: [facility] ,Prothrombin Time25.09.0-11.6 secINR2.59 DESIRED INR: 2.0-3.0 CONDITIONS NOT LISTED BELOW 2.5-3.5 FOR PROSTHETIC HEART VALVE REPLACEMENT 2.5-3.5 RECURRENT THROMBOSIS Performing Lab:see noteML - [facility] LBPROF 14(COMP METB) Reviewed date:10/31/2024 08:21:23 PM Interpretation: Performing Lab: Notes/Report: [facility] ,Fsdeas728511-021 mmol/LPotassium4.03.5-5.1 mmol/GOfwtjnkb19137-614 mmol/LCarbon Vchovic66.421.0-32.0 mmol/LAnion Gap12.9Vvewaec1839-274 mg/dLBlood Urea Nitrogen 7.07.0-18.0 mg/dLCreatinine0.640.55-1.02 mg/dLEstimated GFR ( Charlotte>60 >=60 mL/min/1.73m 2Estimated GFR (Non- Shanice>60>=60 mL/min/1.73m 2BUN Creatinine Ratio10.6Qslesfj1.38.5-10.1 mg/dLBilirubin Total0.80.2-1.0 mg/dL Aspartate Amino Glfzwndwxfn6497-45 U/LAlanine Lzznqklttrgunyfa3554-04 U/L Alkaline Qenbledjush8011-654 U/LTotal Protein5.96.4-8.2 g/dLAlbumin Level2.33.4- 5.0 g/dLGlobulin3.6Albumin Globulin Ratio0.6Performing Lab:see noteML - [facility] LBCBC AUTO DIFF Reviewed date:10/31/2024 08:21:23 PM Interpretation: Performing Lab: Notes/Report: [facility] ,White Blood Count14.04.0-11.0 10 3/uLRed Blood Count3.144.20-5.40 10 6/uL Hemoglobin9.212.0-16.0 g/eHOlhkdccnsv19.436.0-48.0 %Mean Corpuscular Ivtspg97.4 81.0-99.0 fLMean Corpuscular Eenyvzaymb23.326.7-34.0 pgMean Corpuscular HGB Conc 32.429.9-35.2 g/dLRed Cell Distribution Width17.611.0-15.0 %Platelet Udhom209 150-450 10 3/uLMean Platelet Ihpbmf51.19.5-13.5 fLNeutrophils Percent Auto71.2 43.0-75.0 %Lymphocytes Percent Auto18.620.5-60.0 %Monocytes Percent Auto7.61.7- 12.0 %Eosinophils Percent Auto1.40.9-7.0 %Basophils Percent Auto0.40.2-2.0 % Immature Granulocytes Pct Auto0.80.0-0.5 %Neutrophils Absolute Auto10.01.4-6.5 10 3/uLLymphocytes Absolute Auto2.61.2-3.8 10 3/uLMonocytes Absolute Auto1.10.3- 0.8 10 3/uLEosinophils Absolute Auto0.20.0-0.7 10 3/uLBasophils Absolute Auto0.1 0.0-0.1 10 3/uLImmature Granulocytes Abs Auto0.110.00-0.03 10 3/uLPerforming Lab:see noteML - [facility] LBTroponin I High Sensitivity Reviewed date:10/31/2024 08:21:23 PM Interpretation: Performing Lab: Notes/Report: [facility] ,Troponin I High Sensitivity8.64.0-51.3 pg/mL REFERENCE LIMIT (URL) OF TROPONIN, DEFINED THE 99TH CUT-OFF POINTS HAVE BEEN ESTABLISHED BASED ON THE FOURTH HAS BEEN CONFIRMED THE DECISION THRESHOLD FOR ID DIAGNOSIS. NOTE: HIGH-SENSITIVITY TROPONIN ASSAY IS NOT INTENDED TO BE UNIVERSAL DEFINITION OF MYOCARDIAL INFARCTION. THE UPPER 99TH PERCENTILE = 51.4 PG/ML USED IN ISOLATION BUT SHOULD BE INTERPRETED IN CONJUNCTION WITH OTHER DIAGNOSTIC AND CLINICAL INFORMATION. PERCENTILE OF cTnI DISTRIBUTION IN A REFERENCE POPULATION, Performing Lab:see noteML - [facility] LBLACTATE or LACTIC ACID Reviewed date:10/31/2024 08:21:23 PM Interpretation: Performing Lab: Notes/Report: Y [facility] ,Lactate/Lactic Acid1.70.4-2.0 mmol/LPerforming Lab:see noteML - [facility] VSHYGQ-HgT-7 Ag* Reviewed date:10/31/2024 08:21:23 PM Interpretation: Performing Lab: Notes/Report: [facility] ,SARS-CoV-2 AgNEGATIVENEGATIVE viruses or pathogens. The emergency use of [...] terminated or authorization is revoked sooner. Performing Lab:see noteML - [facility] LBProthrombin Time INR Reviewed date:10/31/2024 08:21:23 PM Interpretation: Performing Lab: Notes/Report: [facility] ,Prothrombin Time64.49.0-11.6 sec RESULTS CALLED TO SUSSY CANO RN @BY Dilia Wilks at 2127 INR7.41 2.5-3.5 RECURRENT THROMBOSIS 2.0-3.0 CONDITIONS NOT LISTED BELOW Lashaun at 2127 2.5-3.5 FOR PROSTHETIC HEART VALVE REPLACEMENT DESIRED INR: RESULTS CALLED TO SUSSY CANO RN @BY Dilia Nolasco Performing Lab:see noteML - [facility] LBINFLUENZA A AND B AG Reviewed date:10/31/2024 08:21:23 PM Interpretation: Performing Lab: Notes/Report: [facility] ,Influenza Virus A AntigenNegative Negative for Flu A protein antigen. Infection due to Flu A below the detection limit of the test. cannot be ruled out. Flu A antigen in the sample may be Influenza Virus B AntigenNegative below the detection limit of the test. Negative for Flu B protein antigen. Infection due to Flu B cannot be ruled out. Flu B antigen in the sample may be Performing Lab:see note - [facility] LBIRON AND TIBC (Not yet reviewed by provider) Interpretation: Performing Lab: Notes/Report: [facility] ,Sjzg765.050.0-170.0 ug/dLTotal Iron Binding Vhbbshrs956.0250.0-450.0 ug/dL Percent Iron Eoghhwxgld53.3Performing Lab:see noteML - [facility] LB Reason For Referral No Information Problems Problem Type SNOMED Code ICD Code Onset Dates Problem Status W/U Status Risk Notes Problem Hypertension (05933399) HTN (hypertension ) (I10) ActiveconfirmedProblemEssential hypertension (74439022)Benign essential HTN (I10)ActiveconfirmedProblemBipolar 1 disorder (307427023)Bipolar 1 disorder (F31.9)ActiveconfirmedProblemDiabetes mellitus type 2 (disorder) (94142125)DM2 (diabetes mellitus, type 2) (E11.9)ActiveconfirmedProblemHigh cholesterol (02218203)High cholesterol (E78.00)ActiveconfirmedProblemDiabetes mellitus (96071296)Diabetes mellitus (E11.9)Activeconfirmed Encounters Encounter Location Date Provider Diagnosis [facility] Oncology [address] [place] [address] [facility] [address] [place] [address]/19/[address] [facility] [address] [place] [address]/24/2025poornela Hernadezwa Plan Of Treatment Pending Test Test Name Order Date CBC AUTO DIFF 06/07/2025 FERRITIN 06/07/2025 FERRITIN 08/24/2025 FOLATE 08/24/2025 IRON AND TIBC 06/07/2025 IRON AND TIBC 08/24/2025 PROF CHEM 8 (BAS METB) 06/07/2025 VITAMIN D 25 [place] 06/07/2025 VITAMIN D 25 [place] 08/24/2025 Vitamin B12 06/07/2025 Vitamin B12 08/24/2025 Insurance Providers Payer Name Payer Address Payer Phone Subscriber Number Group Number Insured Name Patient Relationship to Insured Coverage Start Date Coverage End Date [employer] DUAL [employer]V PRIMARY MEDICARE [address] [place] [address] [id number] Silas Moreno - patient is the [id number] 2013MEDICAID [facility] 2ND INS [address] [place] [place] [id number] Silas Moreno - patient is the insured
--- OUTSIDE RECORDS SUMMARY | 2025-10-22 14:51 | XMS_ITS | Encounter Summary ---
Author Organization [facility] Address [address] [place] [address] Care Team Providers Care Ostrich Farmer Name Role Phone Unavailable Primary Care Provider Unavailabl e Source Comments In the event this information is protected by the Federal Confidentiality of Alcohol and Drug AbusePatient Records regulations: The Federal rules restrict any use of the information to criminally investigate or prosecute any alcohol or drug abuse patient.[facility] Reason for Visit * ReasonCommentsConsult Encounter Details DateTypeDepartmentCare Team (Latest Contact Info)Gwoqiwfzuai26/08/2025Telephone Gastroenterology [address] [phone] Provider, [facility] Consult Social History Tobacco UseTypesPacks/DayYears UsedDateSmoking Tobacco: Every DayCigarettes0.230 Smokeless Tobacco: Never Comments:about 4 cigarettes a day and a vapor cigarette Alcohol UseStandard Drinks/WeekCommentsNo0 (1 standard drink = 0.6 oz pure alcohol)CommentsNoSex and Gender InformationValueDate RecordedSex Assigned at BirthNot on fileLegal XxwSoutap96/27/2015 10:50 AM EDTGender IdentityNot on fileSexual OrientationNot on fileOccupationIndustryJob Start Date Job End DateDisabilityNot on fileNot on fileNot on filedocumented as of this encounter Functional Status * Are you deaf or do you have serious difficulty hearing?AnswerDate of JxscqhxsubIxgrtaOd64/30/2015 12:22 PM Javier Gonzalez (Rn)(Hist), RN * Are you blind or do you have serious difficulty seeing, even when wearing glasses?AnswerDate of VeextblghzRutvwwBs94/30/2015 12:22 PM Javier Gonzalez (Rn)(Hist), RN * Do you have serious difficulty walking or climbing stairs?AnswerDate of FxauqikytlLejpwdLc65/30/2015 12:22 PM Javier Gonzalez (Rn)(Hist), RN * Do you have difficulty dressing or bathing?AnswerDate of AssessmentAuthorNo 05/31/2015 12:22 PM Javier Gonzalez (Rn)(Hist), RN * Because of a physical, mental, or emotional condition, do you have difficulty doing errands alone such as visiting a doctor's office or shopping?AnswerDate of KqqgtldyqcIqdvdpXo25/30/2015 12:22 PM Javier GonzalezRn)(Hist), RN documented as of this encounter Mental Status * Because of a physical, mental, or emotional condition, do you have serious difficulty concentrating, remembering, or making decisions?AnswerEntry Date TmzxkiJf45/30/2015 12:22 PM Javier Gonzalez (Rn)(Hist), RN documented in this encounter Miscellaneous Notes * Telephone Encounter - Sandhya Moreno RN - 10/10/2025 8:[address] Ballesteros reviewed, recommended New patient Dx: ?double balloon enteroscopy Lesli/Bradley 30 mins Will route to schedulers. Sandhya Moreno RN * Telephone Encounter - Sandhya Moreno RN - 10/09/2025 1:49 PM EST Referral sent for pt for Dr. Ballesteros from [facility] for pt with iron deficiency anemia, concern for GI bleeding if pt needs double balloon enterography. Records were scanned to chart. Sandhya M. Josh, RN documented in this encounter Plan of Treatment DateTypeDepartmentCare Team (Latest Contact Info)Pyxpdyiemox38/08/2026 3:00 PM ESTOffice Visit Gastroenterology [address] [phone] Pepper Huerta MD [place] [phone] double balloon jkjfvjicroq38/28/2026 1:00 PM ESTOffice Visit Neurology [address] [phone] Nay Espitia MD [address] [facility]. [place] [phone] Refractory restless leg syndrome, tried and failed multiple medications 11/29/2025 3:00 PM ESTOffice Visit Neurology [address] [phone] Alexandr Wood MD, PhD [address] [place] [address] Dizziness and balance issuesdocumented as of this encounter Visit Diagnoses Not on filedocumented in this encounter
--- OUTSIDE RECORDS SUMMARY | 2025-10-22 14:51 | XMS_ITS | Clinical Summary ---
Author Organization [facility] Address [address] [place] [address] Care Team Providers Care Program Coordinator Executive Education Name Role Phone Conchita Aden MD Primary Care Provider [phone] Allergies No known active allergies Medications MedicationSigDispense [...] (three) times a day as needed for uqhqfklrj30/15/2024 Active melatonin 5 MG tablet Take 5 [...] due to embolism of left middle cerebral lvxvsf6404/25/2024Urge incontinence of urine 09/30/2023Hypercholesterolemia Immunizations ImmunizationAdministration DatesNext DueHep A / Hep B004/16/2020Influenza, Qpzviglrcgm61/01/2019,12/08/2016,09/24/2014,11/02/2009Influenza, injectable, MDCK, preservative free, lbxawhwctycv33/20/2021Influenza, injectable, quadrivalent, preservative free01/22/2021,09/14/2018,08/24/2017Pneumococcal Polysaccharide ZAGO6329,12/08/2016,11/09/2006Tdap06/10/2021,04/16/2020, 08/02/2019Zoster, Prysmgdylxl94/15/2020,08/03/2019 Family History Medical HistoryRelationNameCommentsBipolar disorderOtherDiabetesOtherHeart diseaseOtherHypertensionOtherStrokeOtherRelationNameStatusCommentsOther Social History Tobacco UseTypesPacks/DayYears UsedDateSmoking Tobacco: Every DayCigarettes Tobacco Cessation:Ready to Q uit: Not Asked; Counseling Given: Not Answered CommentsNoSex and Gender InformationValueDate RecordedSex Assigned at BirthNot on fileLegal XhlZfcsfl31/15/2023 6:52 PM EDTGender IdentityNot on file Sexual OrientationNot on file Last Filed Vital Signs Vital SignReadingTime TakenCommentsBlood Ccmcvzyc666/6001/04/2025 10:55 AM EST Pulse--Whnbpmtjizi95.7 ??C (96.2 ??F)04/25/2024 3:55 AM EDTRespiratory Rate-- Oxygen Saturation--Inhaled Oxygen Concentration--Wjblmr51.7 kg (151 lb 6.4 oz) 11/07/2024 10:55 AM MECTemopk724.5 cm (5' 2 )11/07/2024 10:55 AM ESTBody Mass Index27.69011/07/2024 10:55 AM EST Plan of Treatment Not on file Insurance Care Teams Team MemberRelationshipSpecialtyStart DateEnd Conchita Aden MD PCP - GeneralFamily Medicine11/07/24
--- OUTSIDE RECORDS SUMMARY | 2025-10-22 14:51 | XMS_ITS | Encounter Summary ---
Author Organization [facility] Address [address] [place] [address] Care Team Providers Care Direct Care Staffer Name Role Phone Unavailable Primary Care Provider Unavailabl e Source Comments In the event this information is protected by the Federal Confidentiality of Alcohol and Drug AbusePatient Records regulations: The Federal rules restrict any use of the information to criminally investigate or prosecute any alcohol or drug abuse patient.[facility] Encounter Details DateTypeDepartmentCare Team (Latest Contact Info)Xaeugkqksrq85/11/2025Telephone Gastroenterology [address] [phone] Provider, Ccf Social History Tobacco UseTypesPacks/DayYears UsedDateSmoking Tobacco: Every DayCigarettes0.230 Smokeless Tobacco: Never Comments:about 4 cigarettes a day and a vapor cigarette Alcohol UseStandard Drinks/WeekCommentsNo0 (1 standard drink = 0.6 oz pure alcohol)CommentsNoSex and Gender InformationValueDate RecordedSex Assigned at BirthNot on fileLegal GdxSaznsm20/27/2015 10:50 AM EDTGender IdentityNot on fileSexual OrientationNot on fileOccupationIndustryJob Start Date Job End DateDisabilityNot on fileNot on fileNot on filedocumented as of this encounter Functional Status * Are you deaf or do you have serious difficulty hearing?AnswerDate of CvcpwjluzpYvipbwLz18/30/2015 12:22 PM Javier Gonzalez (Rn)(Hist), RN * Are you blind or do you have serious difficulty seeing, even when wearing glasses?AnswerDate of XlbjzpmhfeAofxalXm54/30/2015 12:22 PM Javier Gonzalez (Rn)(Hist), RN * Do you have serious difficulty walking or climbing stairs?AnswerDate of BstqsgktrnMoadhiAa61/30/2015 12:22 PM Javier Gonzalez (Rn)(Hist), RN * Do you have difficulty dressing or bathing?AnswerDate of AssessmentAuthorNo 05/31/2015 12:22 PM Javier GonzalezRn)(Hist), RN * Because of a physical, mental, or emotional condition, do you have difficulty doing errands alone such as visiting a doctor's office or shopping?AnswerDate of RnepbetgkmUryodkJg98/30/2015 12:22 PM Javier GonzalezRn)(Hist), RN documented as of this encounter Mental Status * Because of a physical, mental, or emotional condition, do you have serious difficulty concentrating, remembering, or making decisions?AnswerEntry Date NkehblXe45/30/2015 12:22 PM Javier GonzalezRn)(Hist), RN documented in this encounter Miscellaneous Notes * Telephone Encounter - Sandhya Moreno RN - 10/12/2025 7:11 PM EST Duplicate, already addressed in separate encounter. Sandhya Moreno RN * Telephone Encounter - Beatris Foss - 10/12/2025 4:20 PM EST Patient calling for possible procedure has referral that has been scanned into chart. Patient needstriage first. If appropriate then send to scheduling. documented in this encounter Plan of Treatment DateTypeDepartmentCare Team (Latest Contact Info)Unowzczmseb36/08/2026 3:00 PM ESTOffice Visit Gastroenterology [address] [place] [phone] Pepper Huerta MD [place] [phone] double balloon fdqnbqogmez40/28/2026 1:00 PM ESTOffice Visit Neurology [address] [phone] Nay Espitia MD [address] [facility] [place] [phone] Refractory restless leg syndrome, tried and failed multiple medications 11/29/2025 3:00 PM ESTOffice Visit Neurology [address] [phone] Alexandr Wood MD, PhD [address] [place] [address] Dizziness and balance issuesdocumented as of this encounter Visit Diagnoses Not on filedocumented in this encounter
--- OUTSIDE RECORDS SUMMARY | 2025-10-22 14:51 | XMS_ITS | Clinical Summary ---
Author Organization [facility] Address [facility] [address] [place] [address] Care Team Providers Care Product Safety Manager Name Role Phone Unavailable Primary Care Provider Unavailabl e Allergies No known active allergies Medications MedicationSigDispense QuantityRefillsLast FilledStart DateEnd DateStatus rosuvastatin (CRESTOR) 20 mg tablet Take 1 tablet (20 mg total) by mouth in the morning.6Active rOPINIRole (REQUIP) 2 mg tablet TAKE 1 TABLET BY MOUTH DAILY AT BEDTIME FOR 90 DAYS. ADMINISTER 1-3 HOURS BEFORE WRDXABL11/07/2025Active ranolazine (RANEXA) 500 mg 12 hr tablet [...] in the morning.Expired Active Problems ProblemNoted DateDiagnosed KmtxMwphjqwpppixxkrqmnhu83/29/2025Right ovarian cyst 11/29/2024erebral infarction due to embolism of left middle cerebral artery 04/25/2024ipolar 1 rrjxblor25/29/2023egeneration of lumbar intervertebral disc 09/30/2023olyneuropathy due to type 2 diabetes ugxyszff87/29/2023 Atherosclerosis of douglas coronary artery of douglas heart without angina gseoazyz04/27/2023hronic obstructive pulmonary zavicvl1707/29/2023hronic systolic CHF (congestive heart failure)07/29/2023urrent every day smoker 07/29/2023Essential ikjhfwdjmihe66/27/2023Intermittent tbwraiacpaet84/27/2023 Pulmonary uoufwmax86/27/2023Type 2 diabetes oynhntye00/27/2023astroesophageal reflux disease without krxzxjanykt17/24/2022Vascular insufficiency of intestine 04/09/2015 Social History Tobacco UseTypesPacks/DayYears UsedDateSmoking Tobacco: Every DayCigarettes Smokeless Tobacco: Never Tobacco Cessation:Ready to Q uit: Not Asked; Counseling Given: Not Answered Alcohol UseStandard Drinks/WeekCommentsNot Currently0 (1 standard drink = 0.6 oz pure alcohol)CommentsUnknownSex and Gender InformationValueDate Recorded Sex Assigned at BirthNot on fileLegal EanMwbkfd56/22/2025 11:37 AM ESTGender IdentityNot on fileSexual OrientationNot on file Last Filed Vital Signs Vital SignReadingTime TakenCommentsBlood Rfsqrxpq281/68011/29/2024 2:50 PM EST Iqlei448711/29/2024 2:50 PM ESTTemperature--Respiratory Spvn615611/29/2024 2:50 PM ESTOxygen Sffcrrquur58%11/29/2024 2:50 PM ESTInhaled Oxygen Concentration-- Vyajkf76 kg (147 lb 12.8 oz)11/29/2024 2:34 PM ESTHeight--Body Mass Index-- Plan of Treatment Health MaintenanceDue DateLast DoneCommentsDiabetic Ophthalmology Exam1960 Tobacco Ohkohcfbam83/07/1961epression Opuvzearr95/07/1973Adult BMI Screening 1978Diabetic Foot Exam1978RSV ( or age 60+ yrs) (1 - Risk 50-74 years 1-dose series)2010COVID-19 Vaccine ( season) /, 02/19/2021Influenza Cwphklv17/, 01/22/2021, 08/02/2019, Additional history existsStatin Use: Cardiovascular 6011/29/2024Statin Use: Pxyhkazu92/28/54661311/29/2024Tobacco Screening Pap Smear, 11/29/2024DTaP,Tdap and Td Vaccines (4 - Td or Tdap)/07/2021, 04/16/2020, 08/02/2019Zoster (Shingles) GzltknaCdfpvztxq69/15/2020, 08/03/2019 Medical Devices Not on file Procedures Procedure NamePriorityDate/TimeAssociated DiagnosisCommentsHIGH RISK HPV W/RAMON Fuzznas4111/29/2024 3:43 AM EST Encounter for screening for malignant neoplasm of cervix from Last 3 Months or Most Recently Relevant to Health Maintenance Results * High risk HPV w/ramon (11/29/2024 3:43 AM EST)ComponentValueRef RangeTest MethodAnalysis TimePerformed AtPathologist SignatureHpv specimen typeThinPrep 12/01/2024 3:43 AM ESTSUNQUESTHpv 16NegativeNegative^Nmueisci23/30/2025 2:25 PM [facility] 18NegativeNegative^Kqyeexcj67/30/2025 2:25 PM [facility]Other high risk hpvNegative Negative^Vhrkayoo57/30/2025 2:25 PM [facility] LABComment: HPV types 31,33,35,39,45,52,56,58,59,66 and 68 DNA were undetectable. Specimen (Source)Anatomical Location / LateralityCollection Method / Volume Collection TimeReceived UhzcQZIXI54/28/2025 3:43 AM EST12/01/2024 3:44 AM EST Narrative Authorizing ProviderResult TypeResult StatusAleia Bridgett Mcallister MDLAB BLOOD ORDERABLES Final ResultPerforming OrganizationAddressCity/State/ZIP CodePhone Number SUNQUEST [facility] [address] [facility] [facility] [place] [address] from Last 3 Months or Most Recently Relevant to Health Maintenance Insurance
[2025-10-22 14:57] LABS: Anion Gap 14.3; Blood Urea Nitrogen 12.0 mg/dL (7.0-18.0); Calcium 9.1 mg/dL (8.5-10.1); Carbon Dioxide 25.0 mmol/L (21.0-32.0); Chloride 102 mmol/L (98-107); Estimated GFR (African America >60 (>=60 mL/min/1.73m^2); Estimated GFR (Non-African Ame >60 (>=60 mL/min/1.73m^2); Glucose 134 mg/dL (74-106); Sodium 136 mmol/L (136-145)
[2025-10-22 14:59] LABS: Potassium 5.3 mmol/L (3.5-5.1)
== END 2025-10-22 15:26 | disposition home or self-care (01) ==
PROVIDERS: Emergency Provider Emergency Medicine; PCP Nurse Practitioner Family
DX: R11.0 Nausea (principal); F17.200 Nicotine dependence, unspecified, uncomplicated
CPT/HCPCS: 36415; 80048; 85025; 96374; 99284; J0780

== ENCOUNTER 2025-10-24 15:22 | Outpatient (RCR) | payer MEDICARE, MEDICAID, SELFPAY ==
--- OUTSIDE RECORDS SUMMARY | 2024-07-25 09:00 | XMS_ITS ---
Author Organization [facility] Address [address] [place] [address] Care Team Providers Care [employer] Spanish Teacher Name Role Phone Darcie Garcia Primary Care Provider ManuelMISS Saldivar Unavailable Abdiel Mir Unavailable [phone] REASON FOR VISIT OMT Encounters Encounter Location Date Provider Diagnosis [facility] [address] [place] [address] 07/25/2024 Abdiel Mir Plan Of Treatment No Information Progress Notes * KING MORENO ADOB:[birth year] (64 yo F)Acc No.[id number]:07/25/2024 progress note Patient: KING KWONG Provider:FABIAN TUCKERDOB:1960???Age:63 Y ???Sex:FemaleDate:07/25/2024hone:[phone]:[address] FONTAINEUNIVERSITY OF MISSOURI CHILDREN'S HOSPITALEB-[id number]:Darcie Garcia Subjective: * Chief Complaints: * O MT Billing Information: * Procedure Codes: * Electronic signature of Abdiel Mir DO on 10/23/2025 at 09:25 AM ESTSign off status: Pending * Appointment Provider: Heather TUCKER Date: 0 07/25/2024 Generated for Printing/Faxing/eTransmitting on:?10/23/2025 09:25 AM EST
--- OUTSIDE RECORDS SUMMARY | 2024-08-03 09:00 | XMS_ITS ---
Author Organization [facility] Address [address] [place] [address] Care Team Providers Care Audio Visual Tech Name Role Phone Tory Lacey Primary Care Provider MISS Janna Jackson Unavailable REASON FOR VISIT MED CHECK Encounters Encounter Location Date Provider Diagnosis [facility] [address] [place] [address] 08/03/2024 Tory Lacey Plan Of Treatment No Information Progress Notes * KING MORENO ADOB:[birth year] (64 yo F)Acc No.[id number]:08/03/2024 Progress Notes Patient: IKNG KWONG Provider:?TORY LACEY MDDOB:1960???Age: 63 Y???Sex:FemaleDate:08/03/2024hone:[phone]:[address] EUSEBIOSAINT MARY'S HEALTH CENTERJW-[address] Subjective: * Chief Complaints: * M ED CHECK Billing Information: * Procedure Codes: * Electronic signature of Tory Lacey MD on 10/23/2025 at 09:27 AM ESTSign off status: Pending * Appointment Provider: Juanita LACEY MD Date: 1 Generated for Printing/Faxing/eTransmitting on:?10/23/2025 09:27 AM EST
--- OUTSIDE RECORDS SUMMARY | 2024-08-10 10:15 | XMS_ITS ---
Author Organization [facility] Address [address] [place] [address] Care Team Providers Care Edger Technician Name Role Phone Tory Lacey Primary Care Provider MISS Janna Jackson Unavailable [phone] REASON FOR VISIT neck pain, dizziness Encounters Encounter Location Date Provider Diagnosis [facility] [address] [place] [address] 08/10/2024 Tory Lacey Plan Of Treatment No Information Progress Notes * KING MORENO ADOB:[birth year] (64 yo F)Acc No.[id number]:08/10/2024 PROGRESS NOTES Patient: KNIG KWONG Provider:?TORY LACEY MDDOB:1960???Age: 63 Y???Sex:FemaleDate:4Phone:[phone]:[address] FONTAINETWO RIVERS PSYCHIATRIC HOSPITALWP-[address] Subjective: * Chief Complaints: * N jose maria pain, dizziness * Electronic signature of Tory Lacey MD on 10/23/2025 at 09:26 AM ESTSign off status: Pending * Appointment Provider: Juanita LACEY MD Date: 1 Generated for Printing/Faxing/eTransmitting on:?10/23/2025 09:26 AM EST
--- OUTSIDE RECORDS SUMMARY | 2024-08-19 04:00 | XMS_ITS ---
Author Organization [facility] Address [address] [place] [address] Care Team Providers Care Offender Job Retention Specialist Name Role Phone Darcie Garcia Primary Care Provider [phone] MISS Janna Jackson Unavailable Rufino Hassan Unavailable [phone] REASON FOR VISIT omt Encounters Encounter Location Date Provider Diagnosis [facility] [address] [place] [address] 08/19/2024 Rufino Hassan Plan Of Treatment No Information Progress Notes * KING MORENO ADOB:[birth year] (64 yo F)Acc No.[id number]:08/19/2024 progress note Patient: KING KWONG Provider:?RUFINO GOMEZ DODOB:1960???Age:63 Y???Sex:FemaleDate:08/19/2024hone:[phone]:[address] FONTAINEST. LOUIS VA MEDICAL CENTERSS-[id number]:Darcie Garcia Subjective: * Chief Complaints: * O mt Billing Information: * Procedure Codes: * Electronic signature of Rufino Hassan DO on 10/23/2025 at 09:26 AM ESTSign off status: Pending * Appointment Provider: Bridgett GOMEZ DO Date: Generated for Printing/Faxing/eTransmitting on:?10/23/2025 09:26 AM EST
--- OUTSIDE RECORDS SUMMARY | 2024-09-16 10:00 | XMS_ITS ---
Author Organization [facility] Address [address] [place] [address] Care Team Providers Care Aircraft Landing Gear Inspector Name Role Phone Tory Lacey Primary Care Provider [phone] MISS Janna Jackson Unavailable [phone] REASON FOR VISIT chronic f/u Encounters Encounter Location Date Provider Diagnosis [facility] [address] [place] [address] 09/16/2024 Tory Lacey Plan Of Treatment No Information Progress Notes * KING MORENO ADOB:[birth year] (64 yo F)Acc No.[id number]:09/16/2024 Progress Notes Patient: KING KWONG Provider:?TORY LACEY MDDOB:1960???Age: 63 Y???Sex:FemaleDate:4Phone:[phone]:[address] [facility] CENTERYK-[phone] Subjective: * Chief Complaints: * C hronic f/u Billing Information: * Procedure Codes: * Electronic signature of Tory Lacey MD on 10/23/2025 at 09:26 AM ESTSign off status: Pending * Appointment Provider: Juanita LACEY MD Date: 11/16/2023 Generated for Printing/Faxing/eTransmitting on:?10/23/2025 09:26 AM EST
--- OUTSIDE RECORDS SUMMARY | 2024-12-07 09:15 | XMS_ITS ---
Author Organization [facility] es Address [address] [place] [address] Care Team Providers Care Barrel Scraper Name Role Phone Darcie Garcia Primary Care Provider JacksonMISS Saldivar Unavailable [phone] Nicole Benson Unavailable [phone] REASON FOR VISIT 3 month f/u Encounters Encounter Location Date Provider Diagnosis [facility] [address] [place] [address] 12/07/2024 Nicole Benson Plan Of Treatment No Information Progress Notes * KING MORENO ADOB:[birth year] (64 yo F)Acc No.[id number]:12/07/2024 Behavioral Health Patient: KING KWONG :Anu BensonDOB:1960???Age:64 Y???Sex:Female Date:12/07/2024Phone:[phone]:[address] [facility]Pcp:Darcie Garcia Subjective: * Chief Complaints: * 3 month f/u Billing Information: * Procedure Codes: * Electronic signature of KRISTIAN Parsons on 10/23/2025 at 09:25 AM ESTSign off status: Pending * Provider: Luz Benson Date: 0 12/07/2024 Generated for Printing/Faxing/eTransmitting on:?10/23/2025 09:25 AM EST
--- OUTSIDE RECORDS SUMMARY | 2025-04-25 08:30 | XMS_ITS ---
Author Organization The [facility] in [place] Address [address] [place] [address] Care Team Providers Care Independent Driver Name Role Phone Conchita Aden MD Primary Care Provider Unavailab Mariah Robles Unavailable [phone] REASON FOR VISIT New PT Hem Encounters Encounter Location Date Provider Diagnosis The [facility] [address] [place] [address] 04/25/2025 Mariah Duarte Plan Of Treatment No Information Progress Notes * Latanya MORENODOB:1960 (64 yo F)Acc No.[id number]:04/25/2025 UNLOCKED PROGRESS NOTE Progress Notes Patient: Latanya KWONG :Brown Logan M.D.:1960???Age:64 Y ???Sex:FemaleDate:04/25/2025Phone:[phone]:[address] [place] [address]Pcp:Conchita Aden MD Subjective: * Chief Complaints: * 1 . MD New PT Hem. * Medical History: Objective: * Vitals: Assessment: Plan: * Treatment: * * Electronic signature of Mariah Duarte MD, [id number] on 10/23/2025 at 09:26 AM ESTSign off status: PendingVisit Status:?CANC (Cancelled) * Provider: Santosh Logan M.D. Date: 0 04/25/2025 Generated for Printing/Faxing/eTransmitting on:?10/23/2025 09:26 AM EST
--- OUTSIDE RECORDS SUMMARY | 2025-04-25 08:30 | XMS_ITS ---
Author Organization The [facility] in [place] Address [address] [place] [address] Care Team Providers Care Field Training Manager Name Role Phone Conchita Aden MD Primary Care Provider Unavailab Mariah Robles Unavailable [phone] REASON FOR VISIT New PT Hem Encounters Encounter Location Date Provider Diagnosis The [facility] On[facility] [address] [place] [address] 04/25/2025 Mariah Duarte Plan Of Treatment No Information Progress Notes * Latanya MORENODOB:1960 (64 yo F)Acc No.[id number]:04/25/2025 UNLOCKED PROGRESS NOTE Progress Notes Patient: Latanya KWONG :Brown Logan M.D.:1960???Age:64 Y ???Sex:FemaleDate:04/25/2025Phone:[phone]:[address] [place] [address]Pcp:Conchita Aden MD Subjective: * Chief Complaints: * 1 . MD New PT Hem. * Medical History: Objective: * Vitals: Assessment: Plan: * Treatment: * * Electronic signature of Mariah Duarte MD, [id number] on 10/23/2025 at 09:27 AM ESTSign off status: PendingVisit Status:?PEN (Pending) * Provider: Santosh Logan M.D. Date: 04/25/2025 Generated for Printing/Faxing/eTransmitting on:?10/23/2025 09:27 AM EST
--- OUTSIDE RECORDS SUMMARY | 2025-05-08 08:30 | XMS_ITS ---
Author Organization The [facility] in [place] Address [address] [place] [address] Care Team Providers Care Rn Or Lpn Name Role Phone Keiko CABELLO, Conchita Primary Care Provider Unavailab Mariah Robles Unavailable [phone] REASON FOR VISIT Ferumoxytol (Feraheme -Non-ESRD) Encounters Encounter Location Date Provider Diagnosis The [facility] [address] [place] [address] 05/08/2025 Mariah Duarte Plan Of Treatment No Information Progress Notes * Latanya MORENODOB:1960 (64 yo F)Acc No.[id number]:05/08/2025 UNLOCKED PROGRESS NOTE Progress Note Patient: Latanya KWONG :?Mariah Logan M.D.:1960???Age:64 Y ???Sex:FemaleDate:05/08/2025Phone:[phone]:[address] [place] [address]Pcp:Conchita Aden MD Subjective: * Chief Complaints: * 1 . Ferumoxytol (Feraheme -Non-ESRD). * Medical History: Objective: * Vitals: Assessment: Plan: * Treatment: * * Electronic signature of Mariah Duarte MD, [id number] on 10/23/2025 at 09:28 AM ESTSign off status: PendingVisit Status:?PEN (Pending) * Provider: Santosh Logan M.D. Date: 0 05/08/2025 Generated for Printing/Faxing/eTransmitting on:?10/23/2025 09:28 AM EST
--- OUTSIDE RECORDS SUMMARY | 2025-06-20 08:30 | XMS_ITS ---
Author Organization [facility] [place] Address [address] [place] [address] Care Team Providers Care Pin Worker Name Role Phone Keiko CABELLO, Conchita Primary Care Provider Unavailab Mariah Robles Unavailable [phone] REASON FOR VISIT MD Encounters Encounter Location Date Provider Diagnosis [facility] Oncology [address] [place] [address] 06/20/2025 Mariah Duarte Plan Of Treatment No Information Progress Notes * Latanya MORENODOB:1960 (64 yo F)Acc No.[id number]:06/20/2025 UNLOCKED PROGRESS NOTE Progress Notes Patient: Latanya KWONG :Brown Logan M.D.:1960???Age:64 Y ???Sex:FemaleDate:06/20/2025Phone:[phone]:[address] [place] [address]Pcp:Conchita Aden MD Subjective: * Chief Complaints: * 1 . MD. * Medical History: Objective: * Vitals: Assessment: Plan: * Treatment: * * Electronic signature of Mariah Duarte MD, [id number] on 10/23/2025 at 09:27 AM ESTSign off status: PendingVisit Status:?CONFPHONE (Voice) * Provider: Santosh Logan M.D. Date: 0 06/20/2025 Generated for Printing/Faxing/eTransmitting on:?10/23/2025 09:27 AM EST
--- OUTSIDE RECORDS SUMMARY | 2025-07-14 12:00 | XMS_ITS | Encounter Summary ---
Author Organization [facility] Address [address] [place] [address] Phone Care Team Providers Care Manager Card Name Role Phone June Preston MD Unavailable Conchita Aden MD Primary Care Provider [phone] Reason for Referral * Cardiovascular (Routine) - AuthorizedSpecialtyDiagnoses / ProceduresReferred By ContactReferred To Contact Diagnoses Paroxysmal ventricular tachycardia Procedures ECG 12 Lead Oscar Rodriguez MD [address] [facility] 2, [address] [address] Phone: tel: fax: Referral IDStatusReasonStart DateExpiration DateVisits RequestedVisits [id number]/12/20259/ * Consultation (Routine) - AuthorizedSpecialtyDiagnoses / ProceduresReferred By ContactReferred To ContactCardiology Diagnoses Atherosclerosis of [place] coronary artery of [place] heart without angina pectoris Procedures Follow Up In Cardiology Oscar Rodriguez MD [address] [facility] 2, [address] [address] Phone: tel: fax: Oscar Rodriguez MD [address] [facility] 2, [facility] [address] [place] [address] Phone: tel: fax: Referral IDStatusRebeccaasonStart DateExpiration DateVisits RequestedVisits [id number]/12/20259/12/202611 * PFT (Routine) - Pending ReviewSpecialtyDiagnoses / ProceduresReferred By ContactReferred To Contact Diagnoses Paroxysmal ventricular tachycardia High risk medication use Procedures Complete Pulmonary Function Test (Spirometry/DLCO/Lung Volumes) Ocsar Rodriguez MD [address] [facility] 2, [address] [place] [id number] Phone: tel: fax: Referral IDStatAkiasonStart DateExpiration DateVisits RequestedVisits [id number] Review Reason for Visit * PdbtnbDzpchltsFhrbkq-lb6-8 month follow up for Atherosclerosis of [place] coronary artery of [place] heart without angina pectoris * Consultation (Routine) - AuthorizedSpecialtyDiagnoses / ProceduresReferred By ContactReferred To ContactCardiology Diagnoses Atherosclerosis of [place] coronary artery of [place] heart without angina pectoris Procedures Follow Up In Cardiology Oscar Rodriguez MD [address] [facility] 2, [place] [id number] Phone: tel: fax: Oscar Rodriguez MD [address] [facility] 2, [address] [place] [address] Phone: tel: fax: Referral IDStatusRebeccaasonStkimbolton DateExpiration DateVisits RequestedVisits [id number]/10/20251/10/202611 Encounter Details DateTypeDepartmentCare Team (Latest Contact Info)Nwwuphmkuqo47/12/2025 1:00 PM EDTOffice Visit [facility] [address] [address] Oscar Rodriguez MD [facility], [address] [place] [address] Atherosclerosis of [place] coronary artery of [place] heart without angina pectoris (Primary Dx); Cardiomyopathy, [...] RecordedIn the past 12 months has the [employer], [employer], or water [employer] threatened to shut off services in your [...] relatives?Once a week01/08/2025How often do you attend mormon or tenriism services?Patient /09/2025Do you belong to any clubs or organizations such as mormon groups, unions, fraternal or athletic sim ups, or school groups?Patient ixrjfars89/09/2025How often do you attend meetings of the clubs or organizations you belong to?Patient ioyuvmnd76/09/2025re you , , , , never , [...] heating?Not hard at all04/14/2025PHQ-2AnswerDate RecordedPatient Health Questionnaire-2 Ebvjc662Finblue mountain hospital, inc. [place] of Occupational Health - Occupational Stress QuestionnaireAnswerDate [...] steady place to sleep or slept in thayerelter (including now)?No02/16/2024Housing Stability Vital SignAnswerDate RecordedIn the last 12 months, was there a time when you were not able to pay the mortgage or rent on time?No04/14/2025In the past 12 months, how many times have you moved where you were living? At any time in the past 12 months, were you homeless or living in a residential (including now)?No04/14/2025CommentsNoSex and Gender InformationValue Date RecordedSex Assigned at BirthNot on fileLegal YssIbdsjs56/25/2022 10:34 AM ESTGender IdentityNot on fileSexual OrientationNot on filedocumented as of this encounter Last Filed Vital Signs Vital SignReadingTime TakenCommentsBlood Yvwpxwwn426/6409 1:05 PM EDT Hdbzd9733 1:05 PM EDTTemperature--Respiratory Rate--Oxygen Saturation-- Inhaled Oxygen Concentration--Cciyhz78.4 kg (142 lb)07/14/2025 1:05 PM EDTHeight 157.5 cm (5' 2 )07/14/2025 1:05 PM EDTBody Mass Index25.9709 1:05 PM EDT documented in this encounter Functional Status * PulseAnswerDate of UfizzncupjYiytyy1843/12/2025 1:05 PM EDTREMAINEorrAlma Delia martinez CMA documented [...] sent through Care Everywhere. * Quitting smoking (Mexican) documented in this encounter Progress Notes * Oscar Rodriguez MD - 07/14/2025 1:00 PM EDT HPI Patient is in the office for follow-up for complicated cardiovascular history including severe ischemic cardiomyopathy, previous coronary angioplasty, paroxysmal ventricular tachycardia status post ablation and status post AICD with longstanding diabetes, dyslipidemia and active tobacco abuse. In January 2025 she underwent ablation for ventricular tachycardia at [facility] with Dr. Fair with no recurrent disease based on the most recent analysis of the pacemaker/defibrillator June 2025. She had an admission in April 2025 to [facility] for GI bleed with negative endoscopy. [...] had blood work since her admission to [facility] in April 2025. She reports no [...] she had previous stenting and now with simz-ih-viyfp collaterals, circumflex was never stented but has mild disease based on the last cardiac catheterization August 2024 at [facility]. Will continue aggressive risk factor medication for CAD. Emphasis on tobacco cessation and diabetes management. Patient has been compliant and remains asymptomatic 2-Ventricular tachycardia status post AICD implantation July 2023. Recurrent AICD discharge, treated with amiodarone and had V. tach ablation January 2025 at [facility] Dr. Fair with success and no recurrent [...] AICD. 8. Type 2 diabetes managed by [facility], no recent A1c is available 9. Moderate [...] mg, oral, Daily Assessment/Plan 1. Atherosclerosis of [place] coronary artery of [place] heart without angina pectoris Follow Up In [...] Plan of Treatment DateTypeDepartmentCare Team (Latest Contact Info)Qgukgwovwsn62/10/2026 3:10 PM EDTOffice Visit at [facility] [address] [phone] Oscar Rodriguez MD [address] [facility] 2, [address] [place] [address] NameTypePriorityAssociated DiagnosesOrder ScheduleAspartate AminotransferaseLab Routine Paroxysmal ventricular [...] abnormal ECG Authorizing ProviderResult TypeResult StatusOscar Rodriguez MDECJaenne ORDERABLES Final ResultPerforming OrganizationAddressCity/State/ZIP CodePhone Number CPACS documented in this encounter Visit Diagnoses Diagnosis Atherosclerosis of [place] coronary artery of [place] heart without angina pectoris- Primary Cardiomyopathy, ischemic [...] risk assessment has been completed for the nmexfny3303/01/2024 12:30 PM EDT documented as of this encounter Care Teams Team MemberRelationshipSpecialtyStart DateEnd Date Conchita Aden MD [address] [place] [address] [place] [address] PCP - GeneralFamily Medicine11/11/24 June Preston MD [address] [facility], [facility] [address] [place] [address] CardiologistCardiology-Clinical Cardiac Wrrfkoathqqlytpsg48/12/24documented as of this encounter
--- OUTSIDE RECORDS SUMMARY | 2025-07-31 09:00 | XMS_ITS ---
Author Organization [facility] Address [address] [place] [address] Care Team Providers Care Associate Manager Name Role Phone Darcie Garcia Primary Care Provider [phone] MISS Janna Jackson Unavailable Pooja Mott Unavailable [phone] REASON FOR VISIT NEW PATIENT Encounters Encounter Location Date Provider Diagnosis [facility] [address] [facility] [place] [address] 07/31/2025 Pooja Mott Plan Of Treatment No Information Progress Notes * JOSH KING ADOB:[birth year] (64 yo F)Acc No.[id number]:07/31/2025 Patient:?KING MORENO :?Pooja NewellstephanieDOB:1960???Age:64 Y???Sex:Female Date:07/31/2025Phone:[phone]:[address] [facility]-[id number]:Darcie Garcia Subjective: * Chief Complaints: * N EW PATIENT Billing Information: * Procedure Codes: * Electronic signature of Pooja Mott , KRISTA on 10/23/2025 at 09:27 AM ESTSign off status: Pending * Provider: Shemar Mott Date: 0 07/31/2025 Generated for Printing/Faxing/eTransmitting on:?10/23/2025 09:27 AM EST
--- OUTSIDE RECORDS SUMMARY | 2025-10-10 08:00 | XMS_ITS ---
Author Organization [facility] in [place] Address [address] [place] [address] Care Team Providers Care Learning Disabilities Specialist Name Role Phone Keiko CABELLO, Conchita Primary Care Provider Unavailab DANNY Suarez Unavailable [phone] REASON FOR VISIT MD Encounters Encounter Location Date Provider Diagnosis [facility] On[facility] [address] [place] [address] 10/10/2025 DANNY SEGURA Plan Of Treatment No Information Progress Notes * Latanya MORENODOB:1960 (64 yo F)Acc No.[id number]:10/10/2025 UNLOCKED PROGRESS NOTE Progress Notes Patient: Latanya KWONG :JIGNA SEGURA M.D.:1960???Age:64 Y ???Sex:FemaleDate:10/10/2025Phone:[phone]:[address] [place], [place] [id number]:Conchita Aden MD Subjective: * Chief Complaints: * 1 . MD. * Medical History: Objective: * Vitals: Assessment: Plan: * Treatment: * * Electronic signature of DANNY SEGURA MD on 10/23/2025 at 09:27 AM ESTSign off status: PendingVisit Status:?CANC (Cancelled) * Provider: Santosh SEGURA M.D. Date: 1 12/11/2024 Generated for Printing/Faxing/eTransmitting on:?10/23/2025 09:27 AM EST
--- OUTSIDE RECORDS SUMMARY | 2025-10-23 09:27 | XMS_ITS | Encounter Summary ---
Author Organization [facility] Address [address] [place] [address] Care Team Providers Care Hand Sign Writer Name Role Phone Unavailable Primary Care Provider Unavailabl e Source Comments In the event this information is protected by the Federal Confidentiality of Alcohol and Drug AbusePatient Records regulations: The Federal rules restrict any use of the information to criminally investigate or prosecute any alcohol or drug abuse patient.[facility] Encounter Details DateTypeDepartmentCare Team (Latest Contact Info)Zmokqznhfle70/11/2025Telephone Gastroenterology [address] [phone] Provider, Ccf Social History Tobacco UseTypesPacks/DayYears UsedDateSmoking Tobacco: Every DayCigarettes0.230 Smokeless Tobacco: Never Comments:about 4 cigarettes a day and a vapor cigarette Alcohol UseStandard Drinks/WeekCommentsNo0 (1 standard drink = 0.6 oz pure alcohol)CommentsNoSex and Gender InformationValueDate RecordedSex Assigned at BirthNot on fileLegal GcxNvfrse27/27/2015 10:50 AM EDTGender IdentityNot on fileSexual OrientationNot on fileOccupationIndustryJob Start Date Job End DateDisabilityNot on fileNot on fileNot on filedocumented as of this encounter Functional Status * Are you deaf or do you have serious difficulty hearing?AnswerDate of XekyboalkjStxjoxPk04/30/2015 12:22 PM Javier Gonzalez (Rn)(Hist), RN * Are you blind or do you have serious difficulty seeing, even when wearing glasses?AnswerDate of MypymudykxUxrwwoBe24/30/2015 12:22 PM Javier Gonzalez (Rn)(Hist), RN * Do you have serious difficulty walking or climbing stairs?AnswerDate of ZpcinhqunsAnvdkgFz67/30/2015 12:22 PM Javier Gonzalez (Rn)(Hist), RN * Do you have difficulty dressing or bathing?AnswerDate of AssessmentAuthorNo 05/31/2015 12:22 PM Javier GonzalezRn)(Hist), RN * Because of a physical, mental, or emotional condition, do you have difficulty doing errands alone such as visiting a doctor's office or shopping?AnswerDate of BkfypglxakTqzyoiHw88/30/2015 12:22 PM Javier GonzalezRn)(Hist), RN documented as of this encounter Mental Status * Because of a physical, mental, or emotional condition, do you have serious difficulty concentrating, remembering, or making decisions?AnswerEntry Date IfjkcwDk29/30/2015 12:22 PM Javier GonzalezRn)(Hist), RN documented in [...] Plan of Treatment DateTypeDepartmentCare Team (Latest Contact Info)Aglcfzkdwvw33/08/2026 3:00 PM ESTOffice Visit Gastroenterology [address] [place] [phone] Pepper Huerta MD [place] [phone] double balloon xlqnaxqxpgd38/28/2026 1:00 PM ESTOffice Visit Neurology [address] [phone] Nay Espitia MD [address]00 [facility]. [place] [phone] Refractory restless leg syndrome, tried and failed multiple medications 11/29/2025 3:00 PM ESTOffice Visit Neurology [address] [phone] Alexandr Wood MD, PhD [address] [place] [address] Dizziness and balance issuesdocumented as of this encounter Visit Diagnoses Not on filedocumented in this encounter
--- OUTSIDE RECORDS SUMMARY | 2025-10-23 09:27 | XMS_ITS | Clinical Summary ---
Author Organization [facility] Address [address] [place] [address] Care Team Providers Care Maintenance Person Name Role Phone Conchita Aden MD Primary Care Provider [phone] Allergies No known active allergies Medications MedicationSigDispense [...] (three) times a day as needed for vrnuchesk53/15/2024 Active melatonin 5 MG tablet Take 5 [...] due to embolism of left middle cerebral dehtzc6804/25/2024Urge incontinence of urine 09/30/2023Hypercholesterolemia Immunizations ImmunizationAdministration DatesNext DueHep A / Hep B004/16/2020Influenza, Htcmjjaaqgr95/01/2019,12/08/2016,09/24/2014,11/02/2009Influenza, injectable, MDCK, preservative free, kbwvqxxbnfke88/20/2021Influenza, injectable, quadrivalent, preservative free01/22/2021,09/14/2018,08/24/2017Pneumococcal Polysaccharide JPIY2634,12/08/2016,11/09/2006Tdap06/10/2021,04/16/2020, 08/02/2019Zoster, Ebznnefwkpx76/15/2020,08/03/2019 Family History Medical HistoryRelationNameCommentsBipolar disorderOtherDiabetesOtherHeart diseaseOtherHypertensionOtherStrokeOtherRelationNameStatusCommentsOther Social History Tobacco UseTypesPacks/DayYears UsedDateSmoking Tobacco: Every DayCigarettes Tobacco Cessation:Ready to Q uit: Not Asked; Counseling Given: Not Answered CommentsNoSex and Gender InformationValueDate RecordedSex Assigned at BirthNot on fileLegal HyoKvebmn93/15/2023 6:52 PM EDTGender IdentityNot on file Sexual OrientationNot on file Last Filed Vital Signs Vital SignReadingTime TakenCommentsBlood Fuqvfctt639/6001/04/2025 10:55 AM EST Pulse--Xkgayhawwta81.7 ??C (96.2 ??F)04/25/2024 3:55 AM EDTRespiratory Rate-- Oxygen Saturation--Inhaled Oxygen Concentration--Keebgc21.7 kg (151 lb 6.4 oz) 11/07/2024 10:55 AM YICCqxisd463.5 cm (5' 2 )11/07/2024 10:55 AM ESTBody Mass Index27.69011/07/2024 10:55 AM EST Plan of Treatment Not on file Insurance Care Teams Team MemberRelationshipSpecialtyStart DateEnd Conchita Aden MD PCP - GeneralFamily Medicine11/07/24
--- OUTSIDE RECORDS SUMMARY | 2025-10-23 09:27 | XMS_ITS | Patient Health Record ---
Author Organization [facility] Address [address] [place] [address] Care Team Providers Care Concrete Pile Driver Operator Name Role Phone Darcie Garcia Primary Care Provider [phone] Manuel MISS Saldivar Unavailable [phone] Tommie So Unavailable [phone] Nicole Benson Unavailable [phone] Pooja Mott Unavailable [phone] Allergies No Known Allergies Reason For Referral [...] drink containing alcohol in the past year? WsGtucrz2LumliyusvptwziHxbpakzeGfannum Use:Social InfoQuestionAnswerNotesTobacco Control (Standard)Tobacco use:Current smokerSection Notes: Lives with sister. + ETOH and [...] illicit drug use since 2006. Lives with sister and 2 niec es. [...] Status Risk Notes Problem Restless legs syndrome (63283666) Restles s legs syndrome (G25.81) ActiveconfirmedProblemAcquired spondylolisthesis (149793452)Spondylolisthesis, 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)ActiveconfirmedProblemDegeneration of lumbar intervertebral disc (44353536)Other intervertebral disc degeneration, lumbar region (M51.36)ActiveconfirmedProblemUrge incontinence of urine (37274507)Urge incontinence (N39.41)ActiveconfirmedProblemAnxiety (51841727)Anxiety (F41.9) ActiveconfirmedProblemBipolar 1 disorder (667531919)Bipolar 1 disorder (F31.9) ActiveconfirmedProblemObese class I (finding) (970550446725124)Obesity (BMI 30.0-34.9) (E66.9)ActiveconfirmedProblemParesthesia (finding) (78745950) Paresthesias (R20.2)ActiveconfirmedProblemCOPD - Chronic obstructive pulmonary disease (98249531)Chronic obstructive pulmonary disease, unspecified COPD type (J44.9)ActiveconfirmedProblemGastroesophageal reflux disease without esophagitis (614459512)Gastroesophageal reflux disease without esophagitis (K21.9)Active confirmedProblemAtrial fibrillation (19639537)Atrial fibrillation, unspecified type (I48.91)ActiveconfirmedProblemOral thrush (24781483)Oral thrush (B37.0) ActiveconfirmedProblemEssential hypertension (10971078)Hypertension, unspecified type (I10)ActiveconfirmedProblemUncomplicated moderate persistent asthma (154389125)Moderate persistent asthma, unspecified whether complicated (J45.40) ActiveconfirmedProblemBody mass index 30+ - obesity (771851605)BMI 30.0- 30.9,adult (Z68.30)ActiveconfirmedProblemPolyneuropathy due to type 2 diabetes mellitus (979944322)Type 2 diabetes mellitus with diabetic polyneuropathy, unspecified whether stock digger insulin use (E11.42)ActiveconfirmedProblem Oropharyngeal dysphagia (85698052)Oropharyngeal dysphagia (R13.12)Active confirmedProblemMixed bipolar affective disorder, moderate (083603039)Bipolar mixed affective disorder, moderate (F31.62)ActiveconfirmedProblemAnticoagulant therapy (367225000)Anticoagulated on Coumadin (Z79.01)ActiveconfirmedProblem Stable angina due to coronary arteriosclerosis (disorder) (10356826954849953) Coronary artery disease of [place] heart with stable angina pectoris, unspecified vessel or lesion type (I25.118)Activeconfirmed Encounters Encounter Location Date Provider Diagnosis [facility] [address] [place] [address] 11/28/2024 Darcie Jose Hypertension, unspecified type I10 [facility] [address] [place] [address] 09/11/2025 Tommie So Disturbances in toot h eruption K00.6 ; Encounter for dental examination and cleaning with abnormal findings Z01.21 and Complete loss of teeth, unspecified cause, class I K08.101 Assessments Encounter Date Diagnosis (ICD Code) Assessment [...] Date KORTNEY MEDILIANNA DUAL-ELIGB LE [address] [place] [address] [id number] KING MORENO Self - patient is the insured 3 [employer] MEDICAID SEC TO [address] [place] [phone] [id number], BETSYSelf - patient is the [id number] 2021[facility]. [facility] [address] [id number], BETSY Self - patient is the [id number] 2023[facility] [address] [address] [place] [id number], BETSYSelf - patient is the [id number] 2025 Medical (General) History Medical History History ICD [...]
--- OUTSIDE RECORDS SUMMARY | 2025-10-23 09:27 | XMS_ITS | Encounter Summary ---
Author Organization [facility] Address [address] [place] [address] Phone Care Team Providers Care After School Counselor Name Role Phone June Preston MD Unavailable Conchita Aden MD Primary Care Provider [phone] Reason for Visit * ReasonCommentsMed Refill Encounter Details DateTypeDepartmentCare Team (Latest Contact Info)Ecphbhjhxfo34/12/2025Refill [facility] [address] [address] Oscar Rodriguez MD 7[address] [facility] 2, [facility] [address] [place] [address] Paroxysmal ventricular tachycardia; Essential hypertension [...] has the electric, gas, oil, or water [employer] threatened to shut off services in your [...] relatives?Once a week01/08/2025How often do you attend advent or zoroastrian services?Patient nftneslw81/09/2025Do you belong to any clubs or organizations such as advent groups, unions, fraternal or athletic groups, or school groups?Patient /09/2025How often do you attend meetings of the clubs or organizations you belong to?Patient hxwlexak03/09/2025re you , , , , never , or living with a partner?Patient mkibcerz05/09/2025UDIT-CAnswerDate RecordedQ1: How often do you have a [...] hard at all04/14/2025PHQ-2AnswerDate RecordedPatient Health Questionnaire-2 Score0 04/14/2025[facility] [place] [facility] - Occupational Stress QuestionnaireAnswerDate [...] steady place to sleep or [facility] (including now)?No02/16/2024Housing Stability Vital SignAnswerDate RecordedIn the last 12 months, was there a time when you were not able to pay the mortgage or rent on time?No04/14/2025In the past 12 months, how many times have you moved where you were living?t any time in the past 12 months, were you homeless or living in a senior care (including now)?No 04/14/2025CommentsNoSex and Gender InformationValueDate RecordedSex Assigned at BirthNot on fileLegal UqfDgpbty72/25/2022 10:34 AM ESTGender IdentityNot on fileSexual OrientationNot on filedocumented as of this encounter Plan of Treatment DateTypeDepartmentCare Team (Latest Contact Info)Kovncspcwsq82/10/2026 3:10 PM EDTOffice Visit [facility] [address] [facility] [address] [place] [address] Oscar Rodriguez MD 703 [facility] 2, [address] [place], [place] [phone] documented as of this encounter Visit Diagnoses Diagnosis Paroxysmal ventricular tachycardia Essential hypertension Unspecified essential hypertension documented in this encounter Additional Health Concerns AssessmentNoted TimePHQ-9 Depression Total Score: 9001/22/2022 11:33 AM EDTA fall risk assessment has been completed for the gupfvak8503/01/2024 12:30 PM EDT documented as of this encounter Care Teams Team MemberRelationshipSpecialtyStart DateEnd Date Conchita Aden MD [address] [place] [address] [place] [address] PCP - GeneralFamily Medicine11/11/24 June Preston MD [address] [facility] Medical Office [facility], [address] [place] [address] CardiologistCardiology-Clinical Cardiac Gkqyrhankllfodvli82/12/24documented as of this encounter
--- OUTSIDE RECORDS SUMMARY | 2025-10-23 09:27 | XMS_ITS | Encounter Summary ---
Author Organization [facility] Address [address] [place] [address] Phone Care Team Providers Care Jewel Bearing Maker Name Role Phone June Preston MD Unavailable Conchita Aden MD Primary Care Provider [phone] Reason for Visit * ReasonOnset DateCommentsMed Pnlmpl7610/20/2025 Encounter Details DateTypeDepartmentCare Team (Latest Contact Info)Qtigqfqsawj73/19/2025Refill at [facility] [address] [phone] Aida Ritter, RN Atherosclerosis of [place] coronary artery of [place] heart without angina pectoris (Primary Dx) Social [...] RecordedIn the past 12 months has the [employer], gas, oil, or water Lob threatened to shut off services in your [...] week01/08/2025How often do you attend religion or congregation services?Patient hqqzqmom48/09/2025Do you belong to any clubs or organizations such as religion groups, unions, fraternal or athletic groups, or school groups?Patient zqpjuddg02/09/2025How often do you attend meetings of the clubs or organizations you belong to?Patient /09/2025re you , , , , never , or living with a partner?Patient obwecjnl76/09/2025UDIT-CAnswerDate RecordedQ1: How often do you have a [...] hard at all04/14/2025PHQ-2AnswerDate RecordedPatient Health Questionnaire-2 Score0 04/14/2025[facility] Occup[facility] - Occupational Stress QuestionnaireAnswerDate [...] steady place to sleep or slept in [facility] (including now)?No02/16/2024Housing Stability Vital SignAnswerDate RecordedIn the last 12 months, was there a time when you were not able to pay the mortgage or rent on time?No04/14/2025In the past 12 months, how many times have you moved where you were living?t any time in the past 12 months, were you homeless or living in a alf (including now)?No 04/14/2025CommentsNoSex and Gender InformationValueDate RecordedSex Assigned at BirthNot on fileLegal WvaJjqant75/25/2022 10:34 AM ESTGender IdentityNot on fileSexual OrientationNot on filedocumented as of this encounter Miscellaneous Notes * Telephone Encounter - Aida Ritter RN - 10/20/2025 10:06 AM EST Pharmacy requesting refill of metoprolol. Prescription entered in [employer]. Patient is taking metoprolol 50mg daily. documented in this encounter Plan of Treatment DateTypeDepartmentCare Team (Latest Contact Info)Izxjzctiqwn48/10/2026 3:10 PM EDTOffice Visit [facility] at [facility] [address] [facility] [address] [place] [address] Oscar Rodriguez MD [facility] [facility] [address] [place], [place] [phone] documented as of this encounter Visit Diagnoses Diagnosis Atherosclerosis of [place] coronary artery of [place] heart without angina pectoris- Primary documented in this encounter Additional Health Concerns AssessmentNoted TimePHQ-9 Depression Total Score: 9001/22/2022 11:33 AM EDTA fall risk assessment has been completed for the vzrxehq9403/01/2024 12:30 PM EDT documented as of this encounter Care Teams Team MemberRelationshipSpecialtyStart DateEnd Date Conchita Aden MD [address] [place] [address] [place] [address] PCP - GeneralFamily Medicine11/11/24 June Preston MD [address] [facility], [address] [place] [address] CardiologistCardiology-Clinical Cardiac Ghpkhwbstaddsttlp85/12/24documented as of this encounter
--- OUTSIDE RECORDS SUMMARY | 2025-10-23 09:27 | XMS_ITS | Encounter Summary ---
Author Organization [facility] Address [address] [place] [address] Care Team Providers Care Building Cleaning Supervisor Name Role Phone Unavailable Primary Care Provider Unavailabl e Source Comments In the event this information is protected by the Federal Confidentiality of Alcohol and Drug AbusePatient Records regulations: The Federal rules restrict any use of the information to criminally investigate or prosecute any alcohol or drug abuse patient.[facility] Reason for Visit * ReasonCommentsConsult Encounter Details DateTypeDepartmentCare Team (Latest Contact Info)Xjyywkalwil19/08/2025Telephone Gastroenterology [address] [phone] Provider, Ccf Consult Social History Tobacco UseTypesPacks/DayYears UsedDateSmoking Tobacco: Every DayCigarettes0.230 Smokeless Tobacco: Never Comments:about 4 cigarettes a day and a vapor cigarette Alcohol UseStandard Drinks/WeekCommentsNo0 (1 standard drink = 0.6 oz pure alcohol)CommentsNoSex and Gender InformationValueDate RecordedSex Assigned at BirthNot on fileLegal TilGjzruy83/27/2015 10:50 AM EDTGender IdentityNot on fileSexual OrientationNot on fileOccupationIndustryJob Start Date Job End DateDisabilityNot on fileNot on fileNot on filedocumented as of this encounter Functional Status * Are you deaf or do you have serious difficulty hearing?AnswerDate of PtubpaambeSrtqryWi42/30/2015 12:22 PM Javier Gonzalez (Rn)(Hist), RN * Are you blind or do you have serious difficulty seeing, even when wearing glasses?AnswerDate of HgobdtaxcyVpbkdaHs59/30/2015 12:22 PM Javier Gonzalez (Rn)(Hist), RN * Do you have serious difficulty walking or climbing stairs?AnswerDate of FnkbgwaqrvIpgpbfDd76/30/2015 12:22 PM Javier Gonzalez (Rn)(Hist), RN * Do you have difficulty dressing or bathing?AnswerDate of AssessmentAuthorNo 05/31/2015 12:22 PM Javier Gonzalez (Rn)(Hist), RN * Because of a physical, mental, or emotional condition, do you have difficulty doing errands alone such as visiting a doctor's office or shopping?AnswerDate of IaadtthlxzAzsihsOp51/30/2015 12:22 PM Javier GonzalezRn)(Hist), RN documented as of this encounter Mental Status * Because of a physical, mental, or emotional condition, do you have serious difficulty concentrating, remembering, or making decisions?AnswerEntry Date WgdirqGj30/30/2015 12:22 PM Javier Gonzalez (Rn)(Hist), RN documented [...] sent for pt for Dr. Ballesteros from [facility] for pt with iron deficiency anemia, concern for GI bleeding if pt needs double balloon enterography. Records were scanned to chart. Sandhya M. Josh, RN documented in this encounter Plan of Treatment DateTypeDepartmentCare Team (Latest Contact Info)Umnwplsmuyu53/08/2026 3:00 PM ESTOffice Visit Gastroenterology [address] [phone] Pepper Huerta MD [address] [place] [phone] double balloon pfoirklbzqj28/28/2026 1:00 PM ESTOffice Visit Neurology [address] [phone] Nay Espitia MD [address] [facility]. [place] [phone] Refractory restless leg syndrome, tried and failed multiple medications 11/29/2025 3:00 PM ESTOffice Visit Neurology [address] [phone] Alexandr Wood MD, PhD [address] [place] [address] Dizziness and balance issuesdocumented as of this encounter Visit Diagnoses Not on filedocumented in this encounter
--- OUTSIDE RECORDS SUMMARY | 2025-10-23 09:27 | XMS_ITS | Clinical Summary ---
Author Organization [facility] Address [address] [place] [address] Care Team Providers Care Sand Operator Name Role Phone Unavailable Primary Care Provider [...] completed with return of bowel function Elevated /23/2015 Overview (05/30/2015): Cardiology consulted Postoperative pain05/23/2015 Overview (05/23/2015): DEPUTY SHERIFF BAILIFF pump and will transition to oral medication with the return of bowel function Mechanical venous thromboembolism (VTE) prophylaxis in place05/23/2015 Overview (05/23/2015): IPC stockings Other and unspecified brvslpyuxkhmcl29/22/2015 Overview (05/23/2015): Resume home medications CAD (coronary artery disease)05/23/2015 Overview (05/30/2015): S/p stent placement. Will resume home plavix dosing when surgically stable 05/29/2015: cardiac cath with stable CAD, no further stenting needs, continue home meds Type II or unspecified type diabetes mellitus without mention of complication, not stated as ljbnxmoxjbyt68/22/2015 Overview (05/23/2015): Use of sliding scale while inpatient, glucose monitoring ACHS, to resume home metformin upon DC Unspecified vascular insufficiency of waqmxnkgk26/08/2015 Resolved Problems ProblemNoted DateDiagnosed DateResolved DateEssential hypertension, malignant Overview (05/23/2015): Resume home medication, monitor with routine vitals Encounters DateTypeDepartmentCare BmoqEmfkmuhzbuh84/11/2025Telephone Gastroenterology [address] [address] Provider, Ccf 10/09/2025Telephone Gastroenterology [address] [address] Provider, Ccf Consultfrom Last 3 Months Immunizations [...] InformationValueDate RecordedSex Assigned at BirthNot on fileLegal GtaEmwmow67/27/2015 10:50 AM EDTGender IdentityNot on fileSexual OrientationNot on fileOccupationIndustryJob Start Date Job End DateDisabilityNot on fileNot on fileNot on file Last Filed Vital Signs Vital SignReadingTime TakenCommentsBlood Mzqfltfj294/7407 3:00 PM EDT Gjtjf79764/30/2015 3:00 PM IPEVmktzcfxexy14.4 ??C (99.3 ??F)05/31/2015 3:00 PM EDTRespiratory Zslo962905/31/2015 3:00 PM EDTOxygen Htvqvrycny83%05/31/2015 3:00 PM EDTInhaled Oxygen Concentration--Ymbpwk26.7 kg (169 lb)08/15/2015 2:57 PM EDT Nydfkw423.5 cm (5' 2 )08/15/2015 2:57 PM EDTBody Mass Index30.9108/15/2015 2:57 PM EDT Plan of Treatment DateTypeDepartmentCare Team (Latest Contact Info)Mvuwufzdrxg92/08/2026 3:00 PM ESTOffice Visit Gastroenterology [address] [place] [address] Pepper Huerta MD [facility] Building [address] [place] [address] double balloon ssymsozhbtl33/28/2026 1:00 PM ESTOffice Visit Neurology [address] [phone] Nay Espitia MD [address] [facility] [place] [address] Refractory restless leg syndrome, tried and failed multiple medications 11/29/2025 3:00 PM ESTOffice Visit Neurology [address] [phone] Alexandr Wood MD, PhD [address] [place] [address] Dizziness and balance issuesHealth MaintenanceDue DateLast DoneCommentsAnxiety Rzmmnmiqj35/07/1979Depression Rbpyarojj54/07/1979HIV Qqwnokgow57/07/1979 Hepatitis C Kysejmnkj62/07/1979Cervical Cancer Jhatzldul11/07/1982Mammogram Uvmjjqyzh97/07/2001CT Yirpzbzwpwba82/07/2006Cologuard (FIT-DNA)2005 Bnytrdwkhpc84/07/2006Colorectal Cancer Yqcsqtuiv37/07/2006Fecal Occult Blood 11/08/20058649Nqqwsdeqczjrn60/07/2006Pneumococcal Vaccine: 50+ (2 of 2 - PCV) /, 12/08/2016, 11/09/2006Covid-19 Vaccine (3 - 2024- season)/, 02/19/2021Influenza Vaccine (#1)2025 06/21/2021, 01/22/2021, 08/02/2019, Additional history existsLipid Screening /05/2022, 05/16/2015Diabetes Fpadbxpwc76/, 01/13/2025, 01/12/2025, Additional history existsDTaP,Tdap,Td Vaccine (4 - Td or Tdap), 04/16/2020, 08/02/2019RSV Vaccine (1 - 1-dose 75+ series)2035Shingrix UwpnkcaAzfkyrsps67/15/2020, 08/03/2019 Procedures Procedure NamePriorityDate/TimeAssociated DiagnosisCommentsBASIC METABOLIC PANEL STAT05/31/2015 12:41 AM EDT LIPID PANEL, CFDWEMKZibmkjf34/15/2015 10:42 AM EDT 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) from Last 3 Months or Most Recently Relevant to Health Maintenance Results * (ABNORMAL) BASIC METABOLIC PNL (05/31/2015 12:41 AM EDT)ComponentValueRef RangeTest MethodAnalysis TimePerformed AtPathologist YyqtckwzxDvnutya509(H)65 - 100 mg/dL05/31/2015 1:52 AM [facility] LABORATORYBUN3(L)8 - 25 mg/dL05/31/2015 1:52 AM [facility] LABORATORYCreatinine0.750.70 - 1.40 mg/dL05/31/2015 1:52 AM [facility] HTPAPZVILDKukvrc791 132 - 148 mmol/L05/31/2015 1:52 AM [facility] Potassium4.33.5 - 5.0 mmol/L05/31/2015 1:52 AM [facility] RYZMHOIYHQZacbutyu92054 - 110 mmol/L05/31/2015 1:52 AM [facility] XSPPXTNIHSSG76407 - 32 mmol/L05/31/2015 1:52 AM [facility] LABORATORYAnion Gdo482 - 15 mmol/L05/31/2015 1:52 AM [facility] LABORATORYCalcium8.68.5 - 10.5 mg/dL05/31/2015 1:52 AM [facility] LABORATORYeGFR->6007 1:52 AM [facility] MA[facility] LABORATORYeGFR-All Other Races>60.05/31/2015 1:52 AM [facility] LABORATORYComment: eGFR (Estimated GFR) Units of [...] C (Hist) LaveryLABORATORYFinal ResultPerforming OrganizationAddressCity/State/ZIP CodePhone Number [facility] [address] [facility] [place] [address] * (ABNORMAL) LIPID PANEL BASIC (05/16/2015 10:42 AM EDT)ComponentValueRef Range Test MethodAnalysis TimePerformed AtPathologist XracnhgokNwumfvydnzdl61858 - 149 mg/dL05/16/2015 6:55 PM [facility] LABORATORYCholesterol, Giusj316532 - 199 mg/dL05/16/2015 6:55 PM [facility] HDL Krphsqeuoyi49>55 mg/dL05/16/2015 6:55 PM [facility] LABORATORYVLDL Nzvrjkxulhh696 - 40 mg/dL05/16/2015 6:55 PM [facility] LABORATORYLDL Cholesterol, Fztbdcxnap84(L)60 - 129 mg/dL05/16/2015 6:55 PM [facility] LABORATORYFasting TgcqWqoeibnldn66/15/2015 2:56 PM [facility] LABORATORYTC:HDL Ratio2.181.00 - 5.0007 6:55 PM [facility] LABORATORYLDL:HDL Ratio0.820.50 - 3.5507 6:55 PM [facility] LABORATORYNon HDL Bfbxqlbgnki25(L)90 - 159 mg/dL05/16/2015 6:55 [address] [facility]TCLEVEL[facility] MAIN LABORATORYSpecimen (Source) Anatomical Location / LateralityCollection Method / VolumeCollection Time Received TimeBlood specimen (specimen)BLOOD SPECIMEN / Huagumq4705/16/2015 10:42 AM EDT05/16/2015 10:46 AM EDT Narrative Authorizing ProviderResult TypeResult StatusSung Pratik Conde MDLABORATORYFinal ResultPerforming OrganizationAddressCity/State/ZIP CodePhone Number [facility] [address] [place] [address] from Last 3 Months or Most Recently Relevant to Health Maintenance Insurance
--- OUTSIDE RECORDS SUMMARY | 2025-10-23 09:27 | XMS_ITS | Clinical Summary ---
Author Organization [facility] Address [address] [place] [address] Phone Care Team Providers Care Balance Staff Inspector Name Role Phone June Preston MD Unavailable Conchita Aden MD Primary Care Provider [phone] Allergies Active AllergyReactionsCriticalityNoted DateCommentsGabapentinDizzinessLow 07/14/20254135MrrfmvepqaVkcnzddbsKqz15/12/2025 Medications MedicationSigDispense QuantityRefillsLast FilledStart DateEnd DateStatus lansoprazole [...] aspirin 81 mg EC tablet Indications:Atherosclerosis of modoc coronary artery of modoc heart without angina pectorisTake 1 tablet (81 mg) by mouth 2 times a week.11/14/2024 11/14/2025ctive Invokana 300 mg Indications:Type 2 diabetes mellitus without complication, without long-term current use of insulin (Multi),Atherosclerosis of modoc coronary artery of modoc heart without angina pectoris,Chronic systolic CHF (congestive heart failure) (Multi)Take 1 tablet (300 mg) by mouth once daily in the morning. Take before meals. 90 tablet 301/[id number] ranolazine (Ranexa) 500 mg 12 hr tablet Indications:Atherosclerosis of modoc coronary artery of modoc heart without angina pectorisTake 1 tablet (500 mg) by mouth 2 times a day. 180 tablet /[id number] albuterol 90 mcg/actuation inhaler Indications:ICD (implantable cardioverter-defibrillator) [...] mg) by mouth once daily. 90 tablet 308//811740/6Active sertraline (Zoloft) 25 mg tablet Take 1 tablet (25 mg) by mouth early in the morning..5Active lisinopril 2.5 mg tablet Indications:Essential hypertensionTake 1 tablet (2.5 mg) by mouth once daily. 90 tablet 309/6Active lisinopril 5 mg tablet Indications:Chronic systolic CHF (congestive heart failure) (Multi)TAKE ONE TABLET BY MOUTH ONCE DAILY 90 tablet 07/26/2025tive rosuvastatin (Crestor) 20 mg tablet Indications:Atherosclerosis of modoc coronary artery of modoc heart without angina pectoris,Mixed hyperlipidemiaTAKE ONE TABLET BY MOUTH ONCE DAILY 90 tablet 10/05/2025tive spironolactone (Aldactone) 25 mg tablet Indications:Essential hypertensionTAKE ONE TABLET BY MOUTH ONCE DAILY. 90 tablet 10/05/2025tive metoprolol succinate XL (Toprol-XL) 50 mg 24 hr tablet Indications:Atherosclerosis of modoc coronary artery of modoc heart without angina pectorisTake 1 tablet (50 mg) by mouth once daily. Do not crush or chew. 30 tablet 111ctive rosuvastatin (Crestor) 20 mg tablet Indications:Atherosclerosis of modoc coronary artery of modoc heart without angina pectoris,Mixed hyperlipidemiaTake 1 tablet [...] cardioverter-defibrillator) discharge 01/08/2025MI 25.0-25.9,adult09/27/2024aroxysmal ventricular tachycardia 08/24/2024Ventricular djavhsgilmm38/08/2024ICD (implantable cardioverter- defibrillator) in place11/06/2023ardiomyopathy, forafkkv55/05/2024cquired nxirzkyxydeupgesv63/29/2023ipolar 1 knlylktz79/29/2023egeneration of lumbar intervertebral disc09/30/2023Mixed bipolar affective disorder, moderate 09/30/2023Moderate persistent asthma without iprzrxxfoovc92/29/2023Oral thrush 09/30/2023Oropharyngeal jmheivbcn15/29/2023olyneuropathy due to type 2 diabetes gwljzqay70/29/2023Stable angina pectoris due to arteriosclerosis of coronary fkgcsy3809/30/2023Urge incontinence of urine09/30/2023therosclerosis of modoc coronary artery of modoc heart without angina yqercyzv19/27/2023hronic obstructive pulmonary uviooee2307/29/2023hronic systolic CHF (congestive heart failure)07/29/2023urrent every day esqzbu3207/29/2023Essential hypertension 07/29/20233023Ofoshjzbkybmfj11/27/2023Intermittent mpbhovrfwevw75/27/2023Iron deficiency xbmmav2007/29/2023ulmonary /27/2023Status post coronary dnpexuxmxya17/27/2023Type 2 diabetes olgvvquw76/27/0254Tdeepyx88/24/2022Chronic back pain11/25/2021hronic johfycaubo30/24/2022Gastroesophageal reflux disease without lqfzfevybdw01/24/2022evere episode of recurrent major depressive disorder, without psychotic ecfkvxfx00/24/2022tatus post Brandy procedure 11/25/2021ostoperative ileus05/30/2015 Overview (09/30/2023): NG tube for bowel decompression, clamp trials completed with return of bowel function Postoperative pain05/23/2015 Overview (09/30/2023): GUEST RELATIONS AGENT pump and will transition to oral medication with the return of bowel function Vascular insufficiency of kxogocrla56/08/2015 Resolved Problems ProblemNoted DateDiagnosed DateResolved DateEncounter to discuss test results Paroxysmal ventricular kdhtccsotri44MI 29.0-29.9,adultEncounter for medication review and luaqiafbio94Encounter to discuss treatment ahwsjeh7411/06/2023 11/11/20246156Ovmqewp01VT (ventricular tachycardia)09/30/2023 11/11/2024History of ischemic jxrmrbrisadnqh41-fib11/25/2021 11/11/2024Elevated Overview (09/30/2023): Cardiology consulted Encounters DateTypeDepartmentCare KejyAokqeahurcz37/19/2025[facility] [address] [place] [phone] Aida Ritter, RN Atherosclerosis of modoc coronary artery of modoc heart without angina pectoris (Primary Dx)10/16/2025[facility] [address] [phone] Oscar Rodriguez MD Paroxysmal ventricular tachycardia; Essential htavsqhfjuea28/12/2025Refill at [facility] [address] [phone] Oscar Rodriguez MD Paroxysmal ventricular tachycardia; Essential lpsxcnfpqonf27/04/2025Refill at [facility] [address] [place] [phone] Oscar Rodriguez MD Paroxysmal ventricular tachycardia; Atherosclerosis of modoc coronary artery of modoc heart without angina pectoris; Mixed hyperlipidemia; Essential blzjkbmficlx86/02/2025 7:55 AM EST - 10/03/2025 11:59 PM ESTHospital Encounter [facility] [address] [place] [phone] ICD (implantable cardioverter-defibrillator) in place; Paroxysmal ventricular tachycardia Discharge Disposition: Home08/01/[address] [address] [place] [phone] Oscar Rodriguez MD Paroxysmal ventricular vbsorbeaznj30/23/[address] [facility] [address] [place] [phone] Oscar Rodriguez MD Chronic systolic CHF (congestive heart failure) (Multi) (Primary Dx)from Last 3 Months Immunizations ImmunizationAdministration DatesNext DueFlu vaccine (IIV4), preservative free *Check age/dose*09/14/2018,08/24/2017Flu vaccine, quadrivalent, no egg protein, age 6 month or greater (FLUCELVAX)06/21/2021Hep A / Hep B004/16/2020Influenza, Glpyyberufz17/01/2019,12/08/2016,09/24/2014,11/02/2009Influenza, seasonal, odpmoukhzk82/23/2021Pneumococcal polysaccharide vaccine, 23-valent, age 2 years and [...] RecordedIn the past 12 months has the [employer], gas, oil, or water [email or web address] threatened to shut off services in your [...] relatives?Once a week01/08/2025How often do you attend uatsdin or tenriism services?Patient zwryycjo54/09/2025Do you belong to any clubs or organizations such as uatsdin groups, unions, fraternal or athletic sim ups, or school groups?Patient etqrvolj95/09/2025How often do you attend meetings of the clubs or organizations you belong to?Patient neemgkug66/09/2025re you , , , , never , or living with a partner? Patient iwpmrvck65/09/2025UDIT-CAnswerDate RecordedQ1: How often do you have a [...] heating?Not hard at all04/14/2025PHQ-2AnswerDate RecordedPatient Health Questionnaire-2 Rtfnk683[facility] [place] [facility] - Occupational Stress QuestionnaireAnswerDate [...] homeless or living in a alf (including now)?No04/14/2025CommentsNoSex and Gender InformationValue Date RecordedSex Assigned at BirthNot on fileLegal KfjYgvcmz42/25/2022 10:34 AM ESTGender IdentityNot on fileSexual OrientationNot on file Last Filed Vital Signs Vital SignReadingTime TakenCommentsBlood Nvysvnqt676/64007/14/2025 1:05 PM EDT Sxdla4980/12/2025 1:05 PM UTYCqpklfiquyi52.7 ??C (96.3 ??F)04/15/2025 7:30 AM EDTRespiratory Nxpo954104/15/2025 7:30 AM EDTOxygen Vcvfkfjhtx171%04/15/2025 7:30 AM EDTInhaled Oxygen Concentration--Nnayuj99.4 kg (142 lb)07/14/2025 1:05 PM EDT Iawupt866.5 cm (5' 2 )07/14/2025 1:05 PM EDTBody Mass Index25.9707/14/2025 1:05 PM EDT Plan of Treatment DateTypeDepartmentCare Team (Latest Contact Info)Tmrtbavjrdy17/10/2026 3:10 PM EDTOffice Visit at [facility] [address] [phone] Oscar Rodriguez MD 703 [facility] [address] [place] [address] Health MaintenanceDue DateLast DoneCommentsCT Agibkcigisjy22/07/1961Diabetes: Urine Protein Wbntjrcda66/07/1961FIT-DNA (Cologuard)1960FIT1960HIV Cvwmqzmch88/07/1961Lipid Panel1960Medicare Annual Wellness Visit (AWV) 1960 2162Bbkhhmeywfrvy95/07/1961MMR Vaccines (1 of 1 - Standard series) 2Diabetes: Retinopathy Efflpuial33/07/1971Hepatitis C Screening 1978Cervical Cancer Mvqhiecbw69/07/1982HPV/Vniifh9511/08/1981Pap Smear 11/08/19815792Qxqwtasab23/07/2001RSV High Risk: (Elderly (60+) or Population) (1 - Risk 50-74 years 1-dose series)2010Hepatitis B Vaccines (2 of 3 - Hep B Twinrix 3-dose series)Diabetes: Hemoglobin A1C/503/07/2025, 2COVID-19 Vaccine (3 - season) 508/, 02/19/2021TSH Level/603/07/2025, 02/15/2024, 07/24/20235171Zectbwbomcktgg43/603/08/2025, 11/10/2023, 07/22/2023, Additional history existsCreatinine Level3/, 01/12/2025, 01/11/2025, Additional history existsPotassium Level603/, 01/12/2025, 01/11/2025, Additional history existsDTaP/Tdap/Td Vaccines (4 - Td or Tdap) /07/2021, 04/16/2020, 08/02/20197633Mtaziejtlnh59/23/739788/, 5Colorectal Cancer Okwnuzjam79/23/2035Hepatitis A VaccinesAged Out 04/16/2020No longer eligible based on patient's age to complete this topicZoster DrwkrcitEllwzzull61/15/2020, 08/03/2019Influenza JeipniwAdfjqwnmr75/30/2025, 06/21/2021, 01/22/2021, Additional history existsPneumococcal VaccineCompleted 08/01/2025, [...] NamePriorityDate/TimeAssociated DiagnosisCommentsCARDIAC DEVICE CHECK - REMOTE - ZEEZajnsvm69/02/2025 9:48 AM EST ICD (implantable cardioverter-defibrillator) in place Paroxysmal ventricular tachycardia BASIC METABOLIC PANELPending Mwqfdxbwa90/14/2025 5:23 AM EDT TRANSTHORACIC ECHO (TTE) COMPLETE WITH HZCWOKTEPTUZ67/10/2025 11:15 AM EDT Paroxysmal ventricular tachycardia (Multi) HEMOGLOBIN P1NJxo-Lh24/09/2025 7:21 PM EDT TSH WITH REFLEX TO FREE T4 IF ABNORMALAdd-On01/08/2025 7:21 PM EDT from Last 3 Months or Most Recently Relevant to Health Maintenance Results * CARDIAC DEVICE CHECK - REMOTE - ICD (10/03/2025 9:48 AM EST)Anatomical Region LateralityModalityMonitor/DeviceSpecimen (Source)Anatomical Location / LateralityCollection Method / VolumeCollection TimeReceived Time10/03/2025 2:02 AM EST Narrative Authorizing ProviderResult TypeResult StatusJune Preston [facility] IMPLANTABLE CARDIAC DEVICE PROCEDURESFinal Result * (ABNORMAL) Basic Metabolic Panel (01/13/2025 5:23 AM EDT)ComponentValueRef RangeTest MethodAnalysis TimePerformed AtPathologist GnqswdmstPjqpuxm7754 - 99 mg/dL LAB CHEMISTRY METHOD 01/13/2025 6:28 AM [facility] OTERrtrmw738(L)136 - 145 mmol/L LAB CHEMISTRY METHOD 01/13/2025 6:28 AM [facility] LABPotassium3.63.5 - 5.3 mmol/L LAB CHEMISTRY METHOD 01/13/2025 6:28 AM [facility] WFNHtwwwhux5054 - 107 mmol/L LAB CHEMISTRY METHOD 01/13/2025 6:28 AM [facility] EZYPppsbwsvfxq0474 - 32 mmol/L LAB CHEMISTRY METHOD 01/13/2025 6:28 AM [facility] LABAnion Bys8310 - 20 mmol/L LAB CHEMISTRY METHOD 01/13/2025 6:28 AM [facility] LABUrea Egunpens34 - 23 mg/dL LAB CHEMISTRY METHOD 01/13/2025 6:28 AM [facility] LABCreatinine0.44(L)0.50 - 1.05 mg/dL LAB CHEMISTRY METHOD 01/13/2025 6:28 AM [facility] LABeGFR>90>60 mL/min/1.73m*2 LAB CHEMISTRY METHOD 01/13/2025 6:28 AM [facility] LABComment: Calculations of estimated GFR are performed using the 2020 CKD-EPI Study Refit equation without therace variable for the IDMS-Traceable creatinine methods. https://jasn.asnjournals.org/content/early//ASN.6173828730 Calcium8.2(L)8.6 - 10.3 mg/dL LAB CHEMISTRY METHOD 01/13/2025 6:28 AM [facility] LABSpecimen (Source)Anatomical Location / LateralityCollection Method / VolumeCollection TimeReceived TimeBlood Venous blood specimen / UnknownVenipuncture / Tkhvmod4001/13/2025 5:23 AM EDT 01/13/2025 5:54 AM EDT Narrative Authorizing ProviderResult TypeResult StatusTaherepradeep MONTES BLOOD ORDERABLESFinal ResultPerforming OrganizationAddressCity/State/ZIP CodePhone Number [facility] [address] [place] [id number] * TRANSTHORACIC ECHO (TTE) COMPLETE WITH CONTRAST (01/09/2025 11:15 AM EDT) ComponentValueRef RangeTest MethodAnalysis TimePerformed AtPathologist SignatureAV mn kych1mpKzZBYIDCA pk vel1.39m/sSYNGOLV Biplane EF30%SYNGOLVOT diam1.87cmSYNGOMV E/A ratio1.21SYNGOTricuspid annular plane systolic excursion 2.2cmSYNGOLA vol index A/L35.3ml/m7WQPPXKH EF35%SYNGORV free wall pk S'10.80 cm/mMXLGVZBEF95.9slAsNSDUATSUDm1.89cmSYNGOAortic Valve Area by Continuity of Peak Velocity2.04ha9GBZQBGO pk bzpl0oxDqMFIRAWrjhsq Valve Area by Continuity of VTI2.50se1ENSAVXW A4C EF30.9SYNGOSpecimen (Source)Anatomical Location / LateralityCollection Method / VolumeCollection TimeReceived Time01/09/2025 10:40 AM EDT Narrative [facility] - 01/10/2025 8:51 AM EDT ? [address] [address] TRANSTHORACIC ECHOCARDIOGRAM REPORT Patient Name: ? KING JOSH ?Reading Physician: ?[id number] Augustus ? Vacante DO Study Date: ? 01/09/2025 ?Ordering Provider: ?[id number] DANI M ? DAR MRN/PID: ?[id number] ? Fellow: Accession#: ? [id number] ? Nurse: Date of /Age: ??1960 / 64 years ??Breast Surgeon: ?Gege Mehtawe ? RDCS Gender Assigned at ??F ?Additional Staff: : Height: ? 157.48 cm ?Admit Date: ? 01/08/2025 Weight: ? 67.59 kg ? Admission Status: ? Inpatient - ? Routine BSA / BMI: ?1.69 m2 / 27.25 ?Department Location: ??[facility] ?kg/m2 Blood Pressure: 101 /55 mmHg Study Type: ?TRANSTHORACIC ECHO (TTE) COMPLETE Diagnosis/ICD: Ventricular tachycardia, other-I47.29 Indication: ?Multiple ICD firings CPT Codes: ? Echo Complete w Full Doppler-50580 Patient History: Pacer/Defib: ? AICD Pertinent History: [...] Area A2C: ? 19.2 cm2 LA [place] A4C: 6.3 cm LA [place] A2C: 5.7 cm LA Volume Index: ?? 33.4 ml/m2 RIGHT ATRIUM: ? Normal Ranges: RA Vol A4C: ?32.8 ml ?(8.3-19.5ml) RA Vol Index A4C: ??19.4 ml/m2 RA Area A4C: ? 13.1 cm2 RA [place] A4C: 4.4 cm LV SYSTOLIC FUNCTION: ? [...] m/s ??(0.6-0.9m/s) PV Max PG: ?3.9 mmHg [id number] Augustus Issa DO Electronically signed on 01/10/2025 at 8:51:17 AM Wall Scoring Final Procedure Note Augustus Issa DO - 01/10/2025 [place] [address] TRANSTHORACIC ECHOCARDIOGRAM REPORT Patient Name: KING MORENO Reading Physician: [id number] Negrete Study Date: 01/09/2025 Ordering Provider: [id number] JAMES DODGE MRN/PID: [id number] Fellow: Nurse: Date of /Age: 1 1960 / 64 years Breast Surgeon: Yana MURPHY Gender Assigned at F Additional Staff: : Height: 157.48 cm Admit Date: 01/08/2025 Weight: 67.59 kg Admission Status: Inpatient- Routine BSA / BMI: 1.69 m2 / 27.25 Department Location: [place] [address] Blood Pressure: 101 /55 mmHg Study Type: TRANSTHORACIC ECHO (TTE) COMPLETE Diagnosis/ICD: Ventricular tachycardia, other-I47.29 Indication: Multiple ICD firings CPT Codes: Echo Complete w Full Doppler-12050 Patient History: Pacer/Defib: AICD Pertinent History: HTN, [...] LA Area A2C: 19.2 cm2 [place] A4C: 6.3 cm LA [place] A2C: 5.7 cm LA Volume Index: 33.4 ml/m2 RIGHT ATRIUM: Normal Ranges: RA Vol A4C: 32.8 ml (8.3-19.5ml) RA Vol Index A4C: 19.4 ml/m2 RA Area A4C: 13.1 cm2 RA [place] A4C: 4.4 cm LV SYSTOLIC FUNCTION: Normal [...] 1.0 m/s (0.6-0.9m/s) PV Max P.9 mmHg [id number] Augustus Issa DO Electronically signed on 01/10/2025 at 8:51:17 AM Wall Scoring Final Authorizing ProviderResult TypeResult StatusRobakash Michelle [facility] ECHO PROCEDURESFinal ResultPerforming OrganizationAddressCity/State/ZIP CodePhone Number [facility] * TSH with reflex to Free T4 if abnormal (01/08/2025 7:21 PM EDT)ComponentValue Ref RangeTest MethodAnalysis TimePerformed AtPathologist SignatureThyroid Stimulating Hormone2.120.44 - 3.98 mIU/L LAB IMMUNOASSAY METHOD 01/08/2025 8:19 PM [facility] LABSpecimen (Source)Anatomical Location / LateralityCollection Method / VolumeCollection TimeReceived TimeBlood Venous blood specimen / UnknownVenipuncture / Dbapbzq7401/08/2025 7:21 PM EDT 01/08/2025 7:26 PM EDT Narrative [facility] - 01/08/2025 8:19 PM EDT TSH testing is performed using different testing methodology at [facility] than at other [facility]. Direct result comparisons should only be made within the same method. Authorizing ProviderResult TypeResult [facility]ns[facility] BLOOD ORDERABLESFinal ResultPerforming OrganizationAddressCity/State/ZIP CodePhone Number [facility] [address] [place] [address] * Hemoglobin A1c (01/08/2025 7:21 PM EDT)ComponentValueRef RangeTest Method Analysis TimePerformed AtPathologist SignatureHemoglobin A1C5.5See comment % 01/08/2025 11:45 PM [facility] LABEstimated Average Vuaylds517Stn Established mg/dL01/08/2025 11:45 PM [facility] LABSpecimen (Source)Anatomical Location / LateralityCollection Method / VolumeCollection TimeReceived TimeBloodVenous blood specimen / UnknownVenipuncture / Mkuwhqf9101/08/2025 7:21 PM EDT01/08/2025 7:26 PM EDT Narrative [facility] - 01/08/2025 11:45 PM EDT Diagnosis of Diabetes-Adults Non-Diabetic: < or = 5.6% Increased risk for developing diabetes: 5.7-6.4% Diagnostic of diabetes: > or = 6.5% Authorizing ProviderResult TypeResult StatusEndless Mountains Health Systemsnson [facility] BLOOD ORDERABLESFinal ResultPerforming OrganizationAddressCity/State/ZIP CodePhone Number [facility] [address] [facility] [address] [place] [address] from Last 3 Months or Most Recently Relevant to Health Maintenance Insurance Advance Directives For more information, please contact: [phone] (Available ) * Full Code (Latest Code Status on File) Date ActivatedDate InactivatedComments11/26/2023 6:41 AMQuestionAnswerComments Plan of Care:* Code Status Discussion Not Completed Decision Maker:* Provider Rationale:* Patient condition does not warrant discussion Care Teams Team MemberRelationshipSpecialtyStart DateEnd Date Conchita Aden MD [address] [place] [address] [address] [place] [address] PCP - GeneralFamily Medicine11/11/24 June Preston MD [address] [facility] Medical Office [facility], [facility] [address] [place] [address] CardiologistCardiology-Clinical Cardiac Mxvvgqswrplekvuko46/12/24
--- OUTSIDE RECORDS SUMMARY | 2025-10-23 09:27 | XMS_ITS | Encounter Summary ---
Author Organization [facility] Address [address] [place] [address] Phone Care Team Providers Care Inclusion Internship Name Role Phone June Preston MD Unavailable Conchita Aden MD Primary Care Provider [phone] Reason for Visit * ReasonCommentsMed Refill Encounter Details DateTypeDepartmentCare Team (Latest Contact Info)Tfpnqxrpbio62/15/2025Refill [facility] at [facility] [address] [phone] Oscar Rodriguez MD 703 [facility] 2, [facility] [address] [place] [address] Paroxysmal ventricular tachycardia; Essential hypertension [...] has the electric, gas, oil, or water [employer] threatened to shut off services in your [...] relatives?Once a week01/08/2025How often do you attend roman catholic or yarsani services?Patient kraqarjy59/09/2025Do you belong to any clubs or organizations such as roman catholic groups, unions, fraternal or athletic groups, or school groups?Patient fvdypyio07/09/2025How often do you attend meetings of the clubs or organizations you belong to?Patient chiokowp83/09/2025re you , , , , never , or living with a partner?Patient /09/2025UDIT-CAnswerDate RecordedQ1: How often do you have [...] hard at all04/14/2025PHQ-2AnswerDate RecordedPatient Health Questionnaire-2 Score0 04/14/2025Fin[facility] [place] of Occupational Health - Occupational Stress QuestionnaireAnswerDate [...] steady place to sleep or slept in [facility] (including now)?No02/16/2024Housing Stability Vital SignAnswerDate RecordedIn the last 12 months, was there a time when you were not able to pay the mortgage or rent on time?No04/14/2025In the past 12 months, how many times have you moved where you were living?t any time in the past 12 months, were you homeless or living in a fpc (including now)?No 04/14/2025CommentsNoSex and Gender InformationValueDate RecordedSex Assigned at BirthNot on fileLegal LfdNgkmiy62/25/2022 10:34 AM ESTGender IdentityNot on fileSexual OrientationNot on filedocumented as of this encounter Plan of Treatment DateTypeDepartmentCare Team (Latest Contact Info)Ioooasnoest76/10/2026 3:10 PM EDTOffice Visit [facility] at [facility] [address] [employer] [address] [place] [address] Oscar Rodriguez MD 703 [facility] 2, [address] [place], [place] [phone] documented as of this encounter Visit Diagnoses Diagnosis Paroxysmal ventricular tachycardia Essential hypertension Unspecified essential hypertension documented in this encounter Additional Health Concerns AssessmentNoted TimePHQ-9 Depression Total Score: 9001/22/2022 11:33 AM EDTA fall risk assessment has been completed for the mpwnfry5203/01/2024 12:30 PM EDT documented as of this encounter Care Teams Team MemberRelationshipSpecialtyStart DateEnd Date Conchita Aden MD [address] [place] [address] [place] [address] PCP - GeneralFamily Medicine11/11/24 June Preston MD [address] [facility] Medical Office [facility], [address] [place] [address] CardiologistCardiology-Clinical Cardiac Xcdocxilowowznsdo41/12/24documented as of this encounter
--- OUTSIDE RECORDS SUMMARY | 2025-10-23 09:28 | XMS_ITS | Patient Health Record ---
Author Organization [facility] in [place] Address [address] [address] Care Team Providers Care Beta Tester Name Role Phone Conchita Aden MD Primary Care Provider Unavailab Danny Robles Unavailable [phone] NAHOMY SEGURAORVA Unavailable [phone] Results Component Value Reference Range Notes BNP Reviewed date:10/30/2024 08:29:21 PM Interpretation: Performing Lab: Notes/Report: [facility] , NT Pro B Type Natriuretic Pept 352.0 <=900.0 pg /mL Performing Lab:see noteML - [facility] LBLACTATE or LACTIC ACID Reviewed date:10/30/2024 08:29:21 PM Interpretation: Performing Lab: Notes/Report: [facility] ,Lactate/Lactic Acid3.00.4-2.0 mmol/LRESULTS CALLED TO SARA JASMINE PAPerforming Lab:see noteML - [facility] LBTroponin I High Sensitivity Reviewed date:10/30/2024 08:29:22 PM Interpretation: Performing Lab: Notes/Report: [facility] ,Troponin I High Sensitivity6.04.0-51.3 pg/mL CUT-OFF POINTS HAVE BEEN ESTABLISHED BASED ON THE FOURTH UNIVERSAL DEFINITION OF MYOCARDIAL INFARCTION. THE UPPER REFERENCE LIMIT (URL) OF TROPONIN, DEFINED THE 99TH PERCENTILE OF cTnI DISTRIBUTION IN A REFERENCE POPULATION, HAS BEEN CONFIRMED THE DECISION THRESHOLD FOR SD DIAGNOSIS. 99TH PERCENTILE = 51.4 PG/ML NOTE: HIGH-SENSITIVITY TROPONIN ASSAY IS NOT INTENDED TO BE USED IN ISOLATION BUT SHOULD BE INTERPRETED IN CONJUNCTION WITH OTHER DIAGNOSTIC AND CLINICAL INFORMATION. Performing Lab:see noteML - [facility] LBFERRITIN (Not yet reviewed by provider) Interpretation: Performing Lab: Notes/Report: [facility] ,Qxzfvbxs815.08.0-252.0 ng/mLPerforming Lab:[facility] LBIRON AND TIBC (Not yet reviewed by provider) Interpretation: Performing Lab: Notes/Report: [facility] ,Dazu672.050.0-170.0 ug/dLTotal Iron Binding Bulndfrk595.0250.0-450.0 ug/dL Percent Iron Eqfdogjwvg51.7Performing Lab:see note - [facility] LB PROF CHEM 8 (BAS METB) (Not yet reviewed by provider) Interpretation: Performing Lab: Notes/Report: [facility] ,Yxzidw817754-400 mmol/LPotassium4.23.5-5.1 mmol/NYcdavnuz12657-685 mmol/LCarbon Gjxaxsl71.321.0-32.0 mmol/LAnion Gap13.7Vplxpgf30087-566 mg/dLBlood Urea Xcptkdtg06.07.0-18.0 mg/dLCreatinine0.680.55-1.02 mg/dLEstimated GFR ( Charlotte>60>=60 mL/min/1.73m 2Estimated GFR (Non- Shanice>60>=60 mL/min/1.73m 2BUN Creatinine Ratio16.6Syjejxm8.58.5-10.1 mg/dLPerforming Lab:see noteJ.[facility] LBVITAMIN D 25 [place] (Not yet reviewed by provider) Interpretation: Performing Lab: Notes/Report: [facility] ,Vitamin D28.7 <20 ng/mL Vit D deficient 20-<30 ng/mL Vit D insufficient 30-100 ng/mL Vit D sufficient >100 ng/mL Potential Toxicity Performing Lab:see note - [facility] LBVitamin B12 (Not yet reviewed by provider) Interpretation: Performing Lab: Notes/Report: [facility] ,Vitamin M79760471-8504 pg/mL Performed at: [facility] [id number] [employer]: Jose Damon PhD, Phone: [phone] Performing Lab[facility] LBFERRITIN (Not yet reviewed by provider) Interpretation: Performing Lab: Notes/Report: [facility] ,Yabvyjwm457.08.0-252.0 ng/mLPerforming Lab:see noteJ[facility] LBFOLATE (Not yet reviewed by provider) Interpretation: Performing Lab: Notes/Report: [facility] ,Folate8.108.60-58.90 ng/mLPerforming Lab:see note - [facility] LB VITAMIN D 25 [place] (Not yet reviewed by provider) Interpretation: Performing Lab: Notes/Report: [facility] ,Vitamin D33.5 <20 ng/mL Vit D deficient 20-<30 ng/mL Vit D insufficient 30-100 ng/mL Vit D sufficient >100 ng/mL Potential Toxicity Performing Lab:[facility] LBIRON AND TIBC (Not yet reviewed by provider) Interpretation: Performing Lab: Notes/Report: [facility] ,Ycfq390.050.0-170.0 ug/dLTotal Iron Binding Dkapagnm119.0250.0-450.0 ug/dL Percent Iron Vbovnxzmhn39.3Performing Lab:see noteML - [facility] LB CBC AUTO DIFF (Not yet reviewed by provider) Interpretation: Performing Lab: Notes/Report: [facility] ,White Blood Count8.14.0-11.0 10 3/uLRed Blood Count5.594.20-5.40 10 6/uL 1+ ANISO 1+ OVAL Vgmnfuwmxl42.412.0-16.0 g/hGBtxtubyavd89.236.0-48.0 %Mean Corpuscular Qqfmkd43.6 81.0-99.0 fLMean Corpuscular Qsrtnnzxxc79.526.7-34.0 pgMean Corpuscular HGB Conc 33.329.9-35.2 g/dLPlatelet Qpbxh959378-984 10 3/uLMean Platelet Eipqvl95.49.5- 13.5 fLNeutrophils Percent Auto58.143.0-75.0 %Lymphocytes Percent Auto31.620.5- 60.0 %Monocytes Percent Auto6.51.7-12.0 %Eosinophils Percent Auto2.50.9-7.0 % Basophils Percent Auto1.20.2-2.0 %Immature Granulocytes Pct Auto0.10.0-0.5 % Neutrophils Absolute Auto4.71.4-6.5 10 3/uLLymphocytes Absolute Auto2.61.2-3.8 10 3/uLMonocytes Absolute Auto0.50.3-0.8 10 3/uLEosinophils Absolute Auto0.20.0- 0.7 10 3/uLBasophils Absolute Auto0.10.0-0.1 10 3/uLImmature Granulocytes Abs Auto0.010.00-0.03 10 3/uLPerforming Lab:see noteML - [facility] LB Prothrombin Time INR Reviewed date:11/02/2024 03:17:53 PM Interpretation: Performing Lab: Notes/Report: [facility] ,Prothrombin Time12.99.0-11.6 secINR1.24 DESIRED INR: 2.0-3.0 CONDITIONS NOT LISTED BELOW 2.5-3.5 FOR PROSTHETIC HEART VALVE REPLACEMENT 2.5-3.5 RECURRENT THROMBOSIS Performing Lab:see noteML - [facility] LBPROF 14(COMP METB) Reviewed date:11/02/2024 03:17:53 PM Interpretation: Performing Lab: Notes/Report: [facility] ,Esniyz859056-282 mmol/LPotassium4.03.5-5.1 mmol/EPryowcdq60610-112 mmol/LCarbon Hpkvxgl36.421.0-32.0 mmol/LAnion Gap11.9Voscclw25326-964 mg/dLBlood Urea Mldwdrvv72.07.0-18.0 mg/dLCreatinine0.750.55-1.02 mg/dLEstimated GFR ( Charlotte>60>=60 mL/min/1.73m 2Estimated GFR (Non- Shanice>60>=60 mL/min/1.73m 2BUN Creatinine Ratio13.3Uqaoyno7.08.5-10.1 mg/dLBilirubin Total0.40.2-1.0 mg/dL Aspartate Amino Nerzaabyvoj9328-07 U/LAlanine Xfhtmxvcryyfsrpu3393-92 U/L Alkaline Wejxwahuuhl0124-856 U/LTotal Protein6.26.4-8.2 g/dLAlbumin Level2.43.4- 5.0 g/dLGlobulin3.8Albumin Globulin Ratio0.6Performing Lab:see noteML - [facility] LBMAGNESIUM Reviewed date:11/02/2024 03:17:53 PM Interpretation: Performing Lab: Notes/Report: [facility] ,Magnesium2.01.8-2.4 mg/dLPerforming Lab:see noteML - [facility] LB CBC AUTO DIFF Reviewed date:11/02/2024 03:17:53 PM Interpretation: Performing Lab: Notes/Report: [facility] ,White Blood Count20.84.0-11.0 10 3/uLRed Blood Count2.954.20-5.40 10 6/uL Hemoglobin8.812.0-16.0 g/vLVwzwafjlez88.136.0-48.0 %Mean Corpuscular Dovcza39.9 81.0-99.0 fLMean Corpuscular Ihysegzqkt00.826.7-34.0 pgMean Corpuscular HGB Conc 32.529.9-35.2 g/dLRed Cell Distribution Width18.011.0-15.0 %Platelet Dincg090 150-450 10 3/uLMean Platelet Spkxat84.39.5-13.5 fLNeutrophils Percent Auto90.9 43.0-75.0 %Lymphocytes Percent Auto6.520.5-60.0 %Monocytes Percent Auto1.91.7- 12.0 %Eosinophils Percent Auto0.00.9-7.0 %Basophils Percent Auto0.10.2-2.0 % Immature Granulocytes Pct Auto0.60.0-0.5 %Neutrophils Absolute Auto18.91.4-6.5 10 3/uLLymphocytes Absolute Auto1.41.2-3.8 10 3/uLMonocytes Absolute Auto0.40.3- 0.8 10 3/uLEosinophils Absolute Auto0.00.0-0.7 10 3/uLBasophils Absolute Auto0.0 0.0-0.1 10 3/uLImmature Granulocytes Abs Auto0.130.00-0.03 10 3/uLPerforming Lab:see noteML - [facility] LBXR chest 2V Reviewed date:11/02/2024 03:17:53 PM Interpretation: Performing Lab: Notes/Report: Source Facility: [place] [address] [place] [address] XRay Report Signed Patient: KING MORENO MR#: [id number] : 1960 Acct:[id number] Age/Sex: 63 / F ADM Date: 10/30/24 Loc: [place] 203-[address]: Samuel Snowden M.D. Ordering Physician: Samuel Snowden M.D. Date of Service: 11/01/24 Procedure(s): XR chest 2V Accession Number(s): [id number] cc: Conchita Aden M.D.; Samuel Snowden M.D. 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 INR Reviewed date:11/02/2024 03:17:53 PM Interpretation: Performing Lab: Notes/Report: [facility] ,Prothrombin Time11.99.0-11.6 secINR1.14 DESIRED INR: 2.0-3.0 CONDITIONS NOT LISTED BELOW 2.5-3.5 FOR PROSTHETIC HEART VALVE REPLACEMENT 2.5-3.5 RECURRENT THROMBOSIS Performing Lab:see noteML - [facility] LBPROF 14(COMP METB) Reviewed date:11/02/2024 03:17:53 PM Interpretation: Performing Lab: Notes/Report: [facility] ,Tfaizz674482-519 mmol/LPotassium3.63.5-5.1 mmol/AQzbpwauy52179-046 mmol/LCarbon Umsnqxq11.321.0-32.0 mmol/LAnion Gap14.9Kdlehdq0243-604 mg/dLBlood Urea Nitrogen 5.07.0-18.0 mg/dLCreatinine0.780.55-1.02 mg/dLEstimated GFR ( Charlotte>60 >=60 mL/min/1.73m 2Estimated GFR (Non- Shanice>60>=60 mL/min/1.73m 2BUN Creatinine Ratio6.4Ldvrmpb7.58.5-10.1 mg/dLBilirubin Total0.70.2-1.0 mg/dL Aspartate Amino Rhoxusegsbv6137-16 U/LAlanine Lkyyovjfccnzovtd3307-02 U/L Alkaline Ukmfssxuzrb6176-226 U/LTotal Protein5.96.4-8.2 g/dLAlbumin Level2.43.4- 5.0 g/dLGlobulin3.5Albumin Globulin Ratio0.7Performing Lab:see noteML - [facility] LBCBC AUTO DIFF Reviewed date:11/02/2024 03:17:53 PM Interpretation: Performing Lab: Notes/Report: [facility] ,White Blood Count16.14.0-11.0 10 3/uLRed Blood Count2.904.20-5.40 10 6/uL Hemoglobin8.712.0-16.0 g/aVUqmnqkrebc59.536.0-48.0 %Mean Corpuscular Kvuyve59.4 81.0-99.0 fLMean Corpuscular Tduhykapdi21.026.7-34.0 pgMean Corpuscular HGB Conc 32.829.9-35.2 g/dLRed Cell Distribution Width18.011.0-15.0 %Platelet Lagsi526 150-450 10 3/uLMean Platelet Tmbizo78.09.5-13.5 fLNeutrophils Percent Auto72.8 43.0-75.0 %Lymphocytes Percent Auto17.720.5-60.0 %Monocytes Percent Auto7.51.7- 12.0 %Eosinophils Percent Auto0.90.9-7.0 %Basophils Percent Auto0.40.2-2.0 % Immature Granulocytes Pct Auto0.70.0-0.5 %Neutrophils Absolute Auto11.71.4-6.5 10 3/uLLymphocytes Absolute Auto2.91.2-3.8 10 3/uLMonocytes Absolute Auto1.20.3- 0.8 10 3/uLEosinophils Absolute Auto0.20.0-0.7 10 3/uLBasophils Absolute Auto0.1 0.0-0.1 10 3/uLImmature Granulocytes Abs Auto0.110.00-0.03 10 3/uLPerforming Lab:see note - [facility] LBBNP Reviewed date:11/02/2024 03:17:53 PM Interpretation: Performing Lab: Notes/Report: [facility] ,NT Pro B Type Natriuretic Sudw241.0<=900.0 pg/mLPerforming Lab:see [facility] LBProthrombin Time INR Reviewed date:10/31/2024 08:21:23 PM Interpretation: Performing Lab: Notes/Report: [facility] ,Prothrombin Time25.09.0-11.6 secINR2.59 DESIRED INR: 2.0-3.0 CONDITIONS NOT LISTED BELOW 2.5-3.5 FOR PROSTHETIC HEART VALVE REPLACEMENT 2.5-3.5 RECURRENT THROMBOSIS Performing Lab:[facility] LBPROF 14(COMP METB) Reviewed date:10/31/2024 08:21:23 PM Interpretation: Performing Lab: Notes/Report: [facility] ,Gokhuz645854-869 mmol/LPotassium4.03.5-5.1 mmol/DCfoixbsd26793-812 mmol/LCarbon Piucrfu33.421.0-32.0 mmol/LAnion Gap12.6Icrsuxi2696-625 mg/dLBlood Urea Nitrogen 7.07.0-18.0 mg/dLCreatinine0.640.55-1.02 mg/dLEstimated GFR ( Charlotte>60 >=60 mL/min/1.73m 2Estimated GFR (Non- Shanice>60>=60 mL/min/1.73m 2BUN Creatinine Ratio10.3Sisnlot4.38.5-10.1 mg/dLBilirubin Total0.80.2-1.0 mg/dL Aspartate Amino Mzdoszhybmc4367-11 U/LAlanine Ajocdeewwxindhts7481-55 U/L Alkaline Wfkgnehpaau9985-489 U/LTotal Protein5.96.4-8.2 g/dLAlbumin Level2.33.4- 5.0 g/dLGlobulin3.6Albumin Globulin Ratio0.6Performing Lab:see noteML - [facility] LBCBC AUTO DIFF Reviewed date:10/31/2024 08:21:23 PM Interpretation: Performing Lab: Notes/Report: [facility] ,White Blood Count14.04.0-11.0 10 3/uLRed Blood Count3.144.20-5.40 10 6/uL Hemoglobin9.212.0-16.0 g/tXLmpercbjmz51.436.0-48.0 %Mean Corpuscular Gmrqgw75.4 81.0-99.0 fLMean Corpuscular Gkkucfurwk53.326.7-34.0 pgMean Corpuscular HGB Conc 32.429.9-35.2 g/dLRed Cell Distribution Width17.611.0-15.0 %Platelet Vbdom404 150-450 10 3/uLMean Platelet Ztytxu96.19.5-13.5 fLNeutrophils Percent Auto71.2 43.0-75.0 %Lymphocytes Percent Auto18.620.5-60.0 %Monocytes Percent Auto7.61.7- 12.0 %Eosinophils Percent Auto1.40.9-7.0 %Basophils Percent Auto0.40.2-2.0 % Immature Granulocytes Pct Auto0.80.0-0.5 %Neutrophils Absolute Auto10.01.4-6.5 10 3/uLLymphocytes Absolute Auto2.61.2-3.8 10 3/uLMonocytes Absolute Auto1.10.3- 0.8 10 3/uLEosinophils Absolute Auto0.20.0-0.7 10 3/uLBasophils Absolute Auto0.1 0.0-0.1 10 3/uLImmature Granulocytes Abs Auto0.110.00-0.03 10 3/uLPerforming Lab:see noteML - [facility] LBTroponin I High Sensitivity Reviewed date:10/31/2024 08:21:23 PM Interpretation: Performing Lab: Notes/Report: [facility] ,Troponin I High Sensitivity8.64.0-51.3 pg/mL CUT-OFF POINTS HAVE BEEN ESTABLISHED BASED ON THE FOURTH UNIVERSAL DEFINITION OF MYOCARDIAL INFARCTION. THE UPPER REFERENCE LIMIT (URL) OF TROPONIN, DEFINED THE 99TH PERCENTILE OF cTnI DISTRIBUTION IN A REFERENCE POPULATION, HAS BEEN CONFIRMED THE DECISION THRESHOLD FOR SD DIAGNOSIS. 99TH PERCENTILE = 51.4 PG/ML NOTE: HIGH-SENSITIVITY TROPONIN ASSAY IS NOT INTENDED TO BE USED IN ISOLATION BUT SHOULD BE INTERPRETED IN CONJUNCTION WITH OTHER DIAGNOSTIC AND CLINICAL INFORMATION. Performing Lab:see noteML - [facility] LBLACTATE or LACTIC ACID Reviewed date:10/31/2024 08:21:23 PM Interpretation: Performing Lab: Notes/Report: Y [facility] ,Lactate/Lactic Acid1.70.4-2.0 mmol/LPerforming Lab:see noteML - [facility] TWLIAB-LsI-7 Ag* Reviewed date:10/31/2024 08:21:23 PM Interpretation: Performing Lab: Notes/Report: [facility] ,SARS-CoV-2 AgNEGATIVENEGATIVE This test has not been FDA cleared [...] is revoked sooner. Performing Lab:see noteML - [facility] LBProthrombin Time INR Reviewed date:10/31/2024 08:21:23 PM Interpretation: Performing Lab: Notes/Report: [facility] ,Prothrombin Time64.49.0-11.6 sec RESULTS CALLED TO SUSSY CANO RN @BY Dilia Wilks at 2127 INR7.41 RESULTS CALLED TO SUSSY CANO RN @BY Dilia Wilks at 2127 DESIRED INR: 2.0-3.0 CONDITIONS NOT LISTED BELOW 2.5-3.5 FOR PROSTHETIC HEART VALVE REPLACEMENT 2.5-3.5 RECURRENT THROMBOSIS Performing Lab:see noteML - [facility] LBINFLUENZA A AND B AG Reviewed date:10/31/2024 08:21:23 PM Interpretation: Performing Lab: Notes/Report: [facility] ,Influenza Virus A AntigenNegative Negative for Flu A protein antigen. Infection due to Flu A cannot be ruled out. Flu A antigen in the sample may be below the detection limit of the test. Influenza Virus B AntigenNegative Negative for Flu B protein antigen. Infection due to Flu B cannot be ruled out. Flu B antigen in the sample may be below the detection limit of the test. Performing Lab:see noteML - [facility] LBVitamin B12 (Not yet reviewed by provider) Interpretation: Performing Lab: Notes/Report: [facility] ,Vitamin O06925858-1938 pg/mL Performed at: [facility] [id number] [employer]: Jose Damon PhD, Phone: [phone] Performing Lab:see note - [facility] LB Reason For Referral No Information Problems Problem Type SNOMED Code ICD Code Onset Dates Problem Status W/U Status Risk Notes Problem Hypertension (47614753) HTN (hypertension ) (I10) ActiveconfirmedProblemEssential hypertension (23335804)Benign essential HTN (I10)ActiveconfirmedProblemBipolar 1 disorder (506639830)Bipolar 1 disorder (F31.9)ActiveconfirmedProblemDiabetes mellitus type 2 (disorder) (65637948)DM2 (diabetes mellitus, type 2) (E11.9)ActiveconfirmedProblemHigh cholesterol (83731606)High cholesterol (E78.00)ActiveconfirmedProblemDiabetes mellitus (11949255)Diabetes mellitus (E11.9)Activeconfirmed Encounters Encounter Location Date Provider Diagnosis [facility] Oncology [address] [place] [address] 05/08/2025 Dannysami Duarte [facility] [address] [place] [address]/ Danny DuarteC[facility] [address] [facility] [address]/24/2025posami Duarte Plan Of Treatment Pending Test Test Name [...] [employer]V [employer] MEDICARE [address] [place] [address] [id number] Silas Moreno - patient is the egooyup11 [address]MED[address]ID [address] [place] [address] [place], [place] [id number] Silas Moreno - patient is the insured
[2025-10-23 10:15] LABS: Hematocrit 44.5 % (36.0-48.0); Hemoglobin 15.1 g/dL (12.0-16.0); Immature Granulocytes Abs Auto 0.02 10^3/uL (0.00-0.03); Immature Granulocytes Pct Auto 0.2 % (0.0-0.5); Lymphocytes Absolute Auto 3.0 10^3/uL (1.2-3.8); Mean Corpuscular HGB Conc 33.9 g/dL (29.9-35.2); Mean Corpuscular Hemoglobin 34.3 pg (26.7-34.0); Mean Corpuscular Volume 101.1 fL (81.0-99.0); Platelet Count 188 10^3/uL (150-450); Red Blood Count 4.40 10^6/uL (4.20-5.40); White Blood Count 10.0 10^3/uL (4.0-11.0)
[2025-10-23 10:46] LABS: Anion Gap 11.3; Blood Urea Nitrogen 9.0 mg/dL (7.0-18.0); Calcium 8.8 mg/dL (8.5-10.1); Carbon Dioxide 26.4 mmol/L (21.0-32.0); Chloride 105 mmol/L (98-107); Estimated GFR (African America >60 (>=60 mL/min/1.73m^2); Estimated GFR (Non-African Ame >60 (>=60 mL/min/1.73m^2); Glucose 103 mg/dL (74-106); Potassium 3.7 mmol/L (3.5-5.1); Sodium 139 mmol/L (136-145)
[2025-10-23 11:00] LABS: Iron 77.0 ug/dL (50.0-170.0); Percent Iron Saturation 19.9 %; Total Iron Binding Capacity 387.0 ug/dL (250.0-450.0)
[2025-10-23 11:16] LABS: Ferritin 47.0 ng/mL (8.0-252.0); Folate 7.40 ng/mL (8.60-58.90)
[2025-10-24 04:11] LABS: Vitamin B12 592 pg/mL (232-1245)
== END 2025-11-01 23:59 | disposition home or self-care (01) ==
LOC: HEMC 15:22
PROVIDERS: PCP Nurse Practitioner Family; Visit Provider Internal Medicine Hematology & Oncology
DX: D50.9 Iron deficiency anemia, unspecified (principal); K90.9 Intestinal malabsorption, unspecified
CPT/HCPCS: 36415; 80048; 82306; 82607; 82728; 82746; 83540; 83550; 85025